=== PATIENT | male | born 1970 | race Caucasian/White ===

== ENCOUNTER 2018-07-29 08:30 | Observation (INO) | payer MEDICARE, OTHER ==
[2018-07-29] MEDS ORDERED: SODIUM CHLORIDE 0.9% 500 ML 500 ML IV STA (08:43)
--- NOTE | 2018-07-29 08:47 | ED ---
General Adult HPI - General Stated complaint: low pulse - History of Present Illness Initial comments: Dictation was produced using [employer] dictation software. please excuse any grammatical, word or spelling errors. Chief Complaint: 48-year-old male with past medical history of psychiatric disease presents with altered mental status, bradycardia and hypotension. History of Present Illness: Patient is a 48-year-old man brought in by EMS and he was noticed at the senior living to be altered. EMS noted that patient was hypotensive and bradycardic. They gave him a 500 mL bolus and 2 rounds of atropine. They report that his heart rate did not improve. Patient is unable to provide HPI at this time. EMS brings back his medications list. - Related Data Home Medications Medication Instructions Recorded Confirmed ARIPiprazole 15 mg PO BID 07/29/18 07/29/18 Ammonium Lactate Lotion 1 applic TOPICAL BID PRN 07/29/18 07/29/18 [Lac-Hydrin 12% Lotion] Benztropine Mesylate [Cogentin] 0.5 mg PO TID 07/29/18 07/29/18 Cholecalciferol (Vitamin D3) 2,000 unit PO DAILY 07/29/18 07/29/18 [Vitamin D3] Citalopram Hydrobromide [CeleXA] 40 mg PO DAILY 07/29/18 07/29/18 Enalapril [Vasotec] 5 mg PO DAILY 07/29/18 07/29/18 Ketoconazole 2% Shampoo [Nizoral] 1 applic TOPICAL DAILY PRN 07/29/18 07/29/18 Klaron (Sulfacetamid Lotion) 1 applic TOPICAL HS MDD TO FACE 07/29/18 07/29/18 LORazepam [Ativan] 1 mg PO TID 07/29/18 07/29/18 LORazepam [Ativan] 1 tab PO Q4HR PRN 07/29/18 07/29/18 Melatonin 3 mg PO HS 07/29/18 07/29/18 Nystatin [Nystop] 1 applic TOPICAL BID PRN 07/29/18 07/29/18 Perphenazine [Trilafon] 8 mg PO TID 07/29/18 07/29/18 Propranolol [Inderal] 10 mg PO BID 07/29/18 07/29/18 Temazepam [Restoril] 7.5 mg PO HS 07/29/18 07/29/18 Allergies Allergy/AdvReac Type Severity Reaction Status Date / Time No Known Allergies Allergy Unverified 07/29/18 09:12 Review of Systems ROS Statement: Those systems with pertinent positive or pertinent negative responses have been documented in the HPI. ROS Other: All systems not noted in ROS Statement are negative. General Exam - General Exam Comments Initial Comments: PHYSICAL EXAM: General Impression: Alert and oriented 103, no acute distress, confused HEENT: Normocephalic atraumatic, extra-ocular movements intact, pupils equal and reactive to light bilaterally, mucous membranes moist. Cardiovascular: Heart regular rate and rhythm, S1&S2 audible, no murmurs, rubs or gallops Chest: Lungs clear to auscultation bilaterally, no rhonchi, no wheeze, no rales Abdomen: Bowel sounds present, abdomen soft, non-tender, non-distended, no organomegaly Musculoskeletal: Pulses present and equal in all extremities, no peripheral edema Motor: Power 5/5 bilaterally, no focal deficits noted Neurological: CN II-XII grossly intact, no focal motor or sensory deficits noted Skin: Intact with no visualized rashes Course Vital Signs 07/29/18 08:54 Temperature 98.4 F Pulse Rate 46 L Respiratory 18 Rate Blood Pressure 122/81 O2 Sat by Pulse 97 Oximetry Medical Decision Making - Medical Decision Making ED course: 48-year-old male presents with altered mental status, hypotension and bradycardia. Patient is normotensive upon arrival.Laboratory evaluation obtained. CBC shows mild leukopenia 2.9. Thrombocytopenia 126. Hemoglobin is 12.2. Coag panel is unremarkable. Metabolic panel is negative. There is no Acidosis. Metabolic panel is negative. Tylenol and aspirin is negative. Cardiac enzymes are negative. Computed tomography scan of the head shows no acute processes. Chest x-ray is no acute processes. There are still pending labs. There is pending ammonia level. Regardless she has no signs of severe life-threatening toxicity. We'll plan to have patient admitted for encephalopathy. Patient is reevaluated with improvement of mental status. Patient tolerate by mouth at bedside. However he does still appear slightly lethargic. EKG Interpretation: A 12 lead EKG was obtained. It was interpreted by myself and attending physician. There is a P wave before every QRS complex. Rate is 48. Rhythm is sinus bradycardia, MO interval 190, QRS 86, QTC 425. QT is not prolonged. No ST segment depression or elevation. . Overall, this EKG is unremarkable - Lab Data Result diagrams: 07/29/18 08:45 07/29/18 08:45 Lab Results 07/29/18 07/29/18 07/29/18 Range/Units 08:45 08:45 08:45 WBC 2.9 L (3.8-10.6) k/uL RBC 4.14 L (4.30-5.90) m/uL Hgb 12.2 L (13.0-17.5) gm/dL Hct 36.4 L (39.0-53.0) % MCV 88.1 (80.0-100.0) fL MCH 29.5 (25.0-35.0) pg MCHC 33.5 (31.0-37.0) g/dL RDW 13.2 (11.5-15.5) % Plt Count 126 L (150-450) k/uL Neutrophils % 60 % Lymphocytes % 27 % Monocytes % 6 % Eosinophils % 2 % Basophils % 1 % Neutrophils # 1.7 (1.3-7.7) k/uL Lymphocytes # 0.8 L (1.0-4.8) k/uL Monocytes # 0.2 (0-1.0) k/uL Eosinophils # 0.1 (0-0.7) k/uL Basophils # 0.0 (0-0.2) k/uL PT (9.0-12.0) sec INR (<1.2) Sodium 142 (137-145) mmol/L Potassium (3.5-5.1) mmol/L Chloride 109 H (98-107) mmol/L Carbon Dioxide 27 (22-30) mmol/L Anion Gap 6 mmol/L BUN 15 (9-20) mg/dL Creatinine 0.93 (0.66-1.25) mg/dL Est GFR (CKD-EPI)AfAm >90 (>60 ml/min/1.73 sqM) Est GFR (CKD-EPI)NonAf >90 (>60 ml/min/1.73 sqM) Glucose 95 (74-99) mg/dL POC Glucose (mg/dL) (75-99) mg/dL POC Glu Gas Analyst ID Plasma Lactic Acid [place] (0.7-2.0) mmol/L Calcium 8.8 (8.4-10.2) mg/dL Total Bilirubin 0.4 (0.2-1.3) mg/dL Conjugated Bilirubin 0.0 (0.0-0.3) mg/dL Unconjugated Bilirubin 0.3 (0.0-1.1) mg/dL Delta Bilirubin 0.1 (0.0-0.2) mg/dL AST 24 (17-59) U/L ALT 32 (21-72) U/L Alkaline Phosphatase 47 (38-126) U/L Total Creatine Kinase 53 L (55-170) U/L CK-MB (CK-2) 0.4 (0.0-2.4) ng/mL CK-MB (CK-2) Rel Index 0.8 Troponin I <0.012 (0.000-0.034) ng/mL Total Protein 6.2 L (6.3-8.2) g/dL Albumin 3.4 L (3.5-5.0) g/dL Lipase 69 (23-300) U/L Salicylates <1.0 mg/dL Acetaminophen <10.0 ug/mL Serum Alcohol <10 mg/dL 07/29/18 07/29/18 07/29/18 Range/Units 08:45 08:47 09:08 WBC (3.8-10.6) k/uL RBC (4.30-5.90) m/uL Hgb (13.0-17.5) gm/dL Hct (39.0-53.0) % MCV (80.0-100.0) fL MCH (25.0-35.0) pg MCHC (31.0-37.0) g/dL RDW (11.5-15.5) % Plt Count (150-450) k/uL Neutrophils % % Lymphocytes % % Monocytes % % Eosinophils % % Basophils % % Neutrophils # (1.3-7.7) k/uL Lymphocytes # (1.0-4.8) k/uL Monocytes # (0-1.0) k/uL Eosinophils # (0-0.7) k/uL Basophils # (0-0.2) k/uL PT 11.3 (9.0-12.0) sec INR 1.2 H (<1.2) Sodium (137-145) mmol/L Potassium (3.5-5.1) mmol/L Chloride (98-107) mmol/L Carbon Dioxide (22-30) mmol/L Anion Gap mmol/L BUN (9-20) mg/dL Creatinine (0.66-1.25) mg/dL Est GFR (CKD-EPI)AfAm (>60 ml/min/1.73 sqM) Est GFR (CKD-EPI)NonAf (>60 ml/min/1.73 sqM) Glucose (74-99) mg/dL POC Glucose (mg/dL) 93 (75-99) mg/dL POC Glu Gas Analyst ID Jane Patel Plasma Lactic Acid [place] 1.1 (0.7-2.0) mmol/L Calcium (8.4-10.2) mg/dL Total Bilirubin (0.2-1.3) mg/dL Conjugated Bilirubin (0.0-0.3) mg/dL Unconjugated Bilirubin (0.0-1.1) mg/dL Delta Bilirubin (0.0-0.2) mg/dL AST (17-59) U/L ALT (21-72) U/L Alkaline Phosphatase (38-126) U/L Total Creatine Kinase (55-170) U/L CK-MB (CK-2) (0.0-2.4) ng/mL CK-MB (CK-2) Rel Index Troponin I (0.000-0.034) ng/mL Total Protein (6.3-8.2) g/dL Albumin (3.5-5.0) g/dL Lipase (23-300) U/L Salicylates mg/dL Acetaminophen ug/mL Serum Alcohol mg/dL Disposition Clinical Impression: Encephalopathy acute Disposition: ADMITTED IP TO THIS HOSP Condition: Fair Referrals: Robles Valenzuela DO [Primary Care Provider] - 1-2 days Decision Time: 12:32
[2018-07-29 09:08] LABS: Glucose,Whole Blood 93 mg/dL (75-99)
[2018-07-29 09:15] LABS: Basophils % (A) 1 %; Eosinophils # (A) 0.1 k/uL (0-0.7); Eosinophils % (A) 2 %; HCT 36.4 % (39.0-53.0); HGB 12.2 gm/dL (13.0-17.5); Lymphocytes # (A) 0.8 k/uL (1.0-4.8); Lymphocytes % (A) 27 %; MCH 29.5 pg (25.0-35.0); MCHC 33.5 g/dL (31.0-37.0); MCV 88.1 fL (80.0-100.0); Mean Platelet Volume 7.7; Monocytes # (A) 0.2 k/uL (0-1.0); Monocytes % (A) 6 %; Neutrophils # (A) 1.7 k/uL (1.3-7.7); Neutrophils % (A) 60 %; Platelet Count 126 k/uL (150-450); RBC 4.14 m/uL (4.30-5.90); RDW 13.2 % (11.5-15.5); WBC 2.9 k/uL (3.8-10.6)
[2018-07-29 09:28] LABS: INR 1.2 (<1.2); Prothrombin Time 11.3 sec (9.0-12.0)
--- NOTE | 2018-07-29 09:28 | XR ---
EXAMINATION TYPE: XR chest 1V portable DATE OF EXAM: 07/29/2018 COMPARISON: NONE HISTORY: Overdose. Initial evaluation. Altered mental status. TECHNIQUE: Single frontal view of the chest is obtained. FINDINGS: There is no focal air space opacity, pleural effusion, or pneumothorax seen. Reticular andrew ear bibasilar subsegmental atelectasis is noted. The cardiac silhouette size is enlarged. The osseo us structures are intact. Mild multilevel degenerative changes of the thoracic spine are seen. IMPRESSION: Minimal bibasilar subsegmental atelectasis and mild cardiac enlargement, otherwise no ac [place] cardiopulmonary process.
[2018-07-29 09:40] LABS: Acetaminophen <10.0 ug/mL; Alcohol <10 mg/dL; Salicylate <1.0 mg/dL
[2018-07-29 09:41] LABS: Creatine Kinase 53 U/L (55-170)
[2018-07-29 09:50] LABS: ALT 32 U/L (21-72); AST 24 U/L (17-59); Albumin 3.4 g/dL (3.5-5.0); Alkaline Phosphatase 47 U/L (38-126); Anion Gap 6 mmol/L; Bilirubin, Delta 0.1 mg/dL (0.0-0.2); Bilirubin,Unconjugated 0.3 mg/dL (0.0-1.1); Blood Urea Nitrogen 15 mg/dL (9-20); Calcium 8.8 mg/dL (8.4-10.2); Carbon Dioxide 27 mmol/L (22-30); Chloride 109 mmol/L (98-107); Glucose 95 mg/dL (74-99); Lipase 69 U/L (23-300); Sodium 142 mmol/L (137-145); Total Bilirubin 0.4 mg/dL (0.2-1.3); Total Protein 6.2 g/dL (6.3-8.2)
[2018-07-29 09:54] LABS: Creatine Kinase MB 0.4 ng/mL (0.0-2.4); Troponin I <0.012 ng/mL (0.000-0.034)
--- NOTE | 2018-07-29 10:22 | CT ---
EXAMINATION TYPE: CT brain wo con DATE OF EXAM: 07/29/2018 COMPARISON: NONE HISTORY: LOW PULSE/AMS CT DLP: 1097.4 mGycm. Automated Exposure Control for Dose Reduction was Utilized. TECHNIQUE: CT scan of the head is performed without contrast. FINDINGS: The patient is noted to be tilted in the gantry. There is no acute intracranial hemorrhage , mass effect, or midline shift identified. The ventricles and sulci are within normal limits in siz e. Cerebellar tonsils are low-lying without herniation. No suspicious extra-axial fluid collection is seen. The globes are intact and the visualized sinuses are clear. IMPRESSION: No acute intracranial hemorrhage, mass effect, or midline shift is seen.
[2018-07-29] MEDS ORDERED: NALOXONE 0.4 MG/ML 1 ML VIAL IV PRN (12:29)
[2018-07-29 12:46] LABS: Appearance,Urine Clear (Clear); Bilirubin,Urine Negative (Negative); Blood,Urine Negative (Negative); Color,Urine Colorless; Glucose,Urine (UA) Negative (Negative); Ketones,Urine Negative (Negative); Leukocyte Esterase,Urine Negative (Negative); Nitrite,Urine Negative (Negative); Protein,Urine Negative (Negative); Specific Gravity,Urine 1.005 (1.001-1.035); Urobilinogen,Urine <2.0 mg/dL (<2.0)
[2018-07-29 13:07] LABS: Amphetamine Screen,Urine Not Detected (NotDetected); Cocaine Screen,Urine Not Detected (NotDetected); Opiate Screen,Urine Not Detected (NotDetected); Phencyclidine Screen,Urine Not Detected (NotDetected); Urn Cannabinoid Scrn Not Detected (NotDetected)
[2018-07-29 13:08] LABS: Barbiturate Screen,Urine Not Detected (NotDetected); Benzodiazepines Screen,Urine Detected (NotDetected); Methadone Screen, Urine Not Detected (NotDetected); Oxycodone Screen, Urine Not Detected (NotDetected); Tricyclic Antidepressant,Urine Not Detected (NotDetected)
[2018-07-29 18:10] VITALS: BMI 28.0
[2018-07-29] MEDS ORDERED: AMMONIUM LACTATE 12% LOTION 225 GM BTL TOPICAL PRN (18:19)
[2018-07-29] MEDS ORDERED: KETOCONAZOLE 2% SHAMPOO 1 APPLIC/ML TOPICAL PRN (18:19)
[2018-07-29] MEDS ORDERED: NYSTATIN 100,000 UNIT/GM POWD 15 GM TOPICAL PRN (18:19)
--- NOTE | 2018-07-29 18:25 | P.HPIM ---
History of Present Illness 48-year-old male with significant past psychiatric history mental retardation and autism was brought in because of altered mental status I do not know his baseline unable to get much of the history from the patient I believe that is his baseline patient although is appropriately able to do some history including epigastric abdominal burning sensation and nausea. Patient is also found to be bradycardic and bit hypotensive patient is on propranolol which is being discontinued patient denied any cough or dysuria. Patient's abdomen is soft. Patient is being admitted for altered mental status although his baseline is not available. There may be a competent of toxic encephalopathy and patient is on a lot of medications that can cause it including temazepam lorazepam scheduled as well as when necessary basis benztropine and aripiprazole. 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 We will get opinion of psychiatrist as well. Patient will be monitored for a day and did not see any signs or symptoms of infection. Patient may or may not have toxic encephalopathy from his medications. Patient was given a dose of atropine along with IV fluids for his low blood pressure and bradycardia Review of Systems Rest of the severity of systems unable to often except those mentioned in HPI Past Medical History Past Medical History: Diabetes Mellitus, Hypertension Additional Past Medical History / Comment(s): mental retardation /AUTISM ABLE TO READ/WRITE BUT VERY LIMITED . 07/29/18 POA WANTS PT TO RECEIVE THE FLU VACCINE WHILE HERE. History of Any Multi-Drug Resistant Organisms: Unobtainable Past Surgical History: No Surgical Hx Reported Additional Past Surgical History / Comment(s): BROTHER STATED NO KNOWN SX Past Anesthesia/Blood Transfusion Reactions: No Reported Reaction Additional Past Anesthesia/Blood Transfusion Reaction / Comment(s): NEVER HAD ANY SX Smoking Status: Never smoker - Past Family History Father Family Medical History: Cancer Additional Family Medical History / Comment(s): COLON CANCER Mother Family Medical History: Cancer, Diabetes Mellitus, Hypertension Additional Family Medical History / Comment(s): OBESITY, FROM METASTATIC KINDEY CANCER Medications and Allergies Home Medications Medication Instructions Recorded Confirmed Type ARIPiprazole 15 mg PO BID 07/29/18 07/29/18 History Ammonium Lactate Lotion 1 applic TOPICAL BID PRN 07/29/18 07/29/18 History [Lac-Hydrin 12% Lotion] Benztropine Mesylate [Cogentin] 0.5 mg PO TID 07/29/18 07/29/18 History Cholecalciferol (Vitamin D3) 2,000 unit PO DAILY 07/29/18 07/29/18 History [Vitamin D3] Citalopram Hydrobromide [CeleXA] 40 mg PO DAILY 07/29/18 07/29/18 History Enalapril [Vasotec] 5 mg PO DAILY 07/29/18 07/29/18 History Ketoconazole 2% Shampoo [Nizoral] 1 applic TOPICAL DAILY PRN 07/29/18 07/29/18 History Klaron (Sulfacetamid Lotion) 1 applic TOPICAL HS MDD TO FACE 07/29/18 07/29/18 History LORazepam [Ativan] 1 mg PO TID 07/29/18 07/29/18 History LORazepam [Ativan] 1 tab PO Q4HR PRN 07/29/18 07/29/18 History Melatonin 3 mg PO HS 07/29/18 07/29/18 History Nystatin [Nystop] 1 applic TOPICAL BID PRN 07/29/18 07/29/18 History Perphenazine [Trilafon] 8 mg PO TID 07/29/18 07/29/18 History Propranolol [Inderal] 10 mg PO BID 07/29/18 07/29/18 History Temazepam [Restoril] 7.5 mg PO HS 07/29/18 07/29/18 History Allergies Allergy/AdvReac Type Severity Reaction Status Date / Time No Known Allergies Allergy Unverified 07/29/18 09:12 Physical Exam Vitals: Vital Signs Temp Pulse Resp BP Pulse Ox 07/29/18 13:15 97.3 F L 44 L 18 108/61 99 07/29/18 08:54 98.4 F 46 L 18 122/81 97 Intake and Output 07/29/18 07/29/18 07/29/18 06:59 14:59 22:59 Other: Voiding Method Incontinent Weight 86.22 kg PHYSICAL EXAMINATION: GENERAL: The patient is alert and unable does his orientation although I believe this is his baseline doesn't provide much of the history, not in any acute distress. Well developed, well nourished. HEENT: Pupils are round and equally reacting to light. EOMI. No scleral icterus. No conjunctival pallor. Normocephalic, atraumatic. No pharyngeal erythema. No thyromegaly. CARDIOVASCULAR: S1 and S2 present. No murmurs, rubs, or gallops. PULMONARY: Chest is clear to auscultation, no wheezing or crackles. ABDOMEN: Soft, nontender, nondistended, normoactive bowel sounds. No palpable organomegaly. MUSCULOSKELETAL: No joint swelling or deformity. EXTREMITIES: No cyanosis, clubbing, or pedal edema. NEUROLOGICAL: Gross neurological examination did not reveal any focal deficits. SKIN: No rashes. Results CBC & Chem 7: 07/29/18 08:45 07/29/18 08:45 Labs: Abnormal Lab Results - Last 24 Hours (Table) 07/29/18 07/29/18 07/29/18 Range/Units 08:45 08:45 08:45 WBC 2.9 L (3.8-10.6) k/uL RBC 4.14 L (4.30-5.90) m/uL Hgb 12.2 L (13.0-17.5) gm/dL Hct 36.4 L (39.0-53.0) % Plt Count 126 L (150-450) k/uL Lymphocytes # 0.8 L (1.0-4.8) k/uL INR (<1.2) Chloride 109 H (98-107) mmol/L Total Creatine Kinase 53 L (55-170) U/L Total Protein 6.2 L (6.3-8.2) g/dL Albumin 3.4 L (3.5-5.0) g/dL U Benzodiazepines Scrn (NotDetected) 07/29/18 07/29/18 Range/Units 08:45 11:50 WBC (3.8-10.6) k/uL RBC (4.30-5.90) m/uL Hgb (13.0-17.5) gm/dL Hct (39.0-53.0) % Plt Count (150-450) k/uL Lymphocytes # (1.0-4.8) k/uL INR 1.2 H (<1.2) Chloride (98-107) mmol/L Total Creatine Kinase (55-170) U/L Total Protein (6.3-8.2) g/dL Albumin (3.5-5.0) g/dL U Benzodiazepines Scrn Detected H (NotDetected) Thrombosis Risk Factor Assmnt - Choose All That Apply Any of the Below Risk Factors Present?: No Each Risk Factor Represents 2 Points: Age 61-74 years Thrombosis Risk Factor Assessment Total Risk Factor Score: 2 Thrombosis Risk Factor Assessment Level: Low Risk Assessment and Plan Plan: Possibility of a toxic encephalopathy from his medications will monitor him for a day Ativan temazepam melatonin will be held rest of the psychiatric medications will be continued and we will get the opinion of a psychiatrist as well because of his complex psychiatric history including mental retardation -Bradycardia and hypotension: Secondary to beta shandra which will be held -Ruled out sepsis -Autism and mental retardation: Supportive care continue his psychiatric medications and the construction safety manager. We will also try to reach the caregiver patient is from a long term -Hypertension hold off and a lateral as well as beta shandra because of hypotension
[2018-07-29] MEDS: ARIPiprazole 15 MG TAB PO SCH (20:23)
[2018-07-29] MEDS: PANTOPRAZOLE 40 MG/10 ML VIAL IVP SCH (20:23)
[2018-07-29] MEDS: BENZTROPINE MESYLATE 0.5 MG TAB PO SCH (20:24)
[2018-07-29] MEDS: PERPHENAZINE 4 MG TAB PO SCH (20:24)
[2018-07-29] MEDS ORDERED: [UNRECOGNIZED DRUG - OTHER] TOPICAL SCH (21:00)
[2018-07-30] MEDS: BENZTROPINE MESYLATE 0.5 MG TAB PO SCH ×2 (09:00→17:50)
[2018-07-30] MEDS: ARIPiprazole 15 MG TAB PO SCH (09:00)
[2018-07-30] MEDS ORDERED: CITALOPRAM HYDROBROMIDE 20 MG TAB PO SCH (09:00)
[2018-07-30] MEDS: PERPHENAZINE 4 MG TAB PO SCH ×2 (09:00→17:50)
--- NOTE | 2018-07-30 11:28 | P.DS ---
Providers Date of admission: 07/29/18 12:30 Attending physician: Rachel Vasquez Primary care physician: Robles Bianca [facility] Course: Patient was admitted for toxic encephalopathy and altered mental status secondary to benzodiazepines. Patient is feeling much better appears to be at his baseline. Patient will be discharged today we'll cut down Ativan and temazepam. Patient's abdominal pain improved patient will be treated for acute gastritis with Prilosec for 14 days. If patient can use to have the symptoms patient will need upper GI endoscopy down the line. PHYSICAL EXAMINATION: GENERAL: The patient is alert and unable does his orientation although I believe this is his baseline doesn't provide much of the history, not in any acute distress. Well developed, well nourished. She is much more responsive today compared to yesterday. Pleasant HEENT: Pupils are round and equally reacting to light. EOMI. No scleral icterus. No conjunctival pallor. Normocephalic, atraumatic. No pharyngeal erythema. No thyromegaly. CARDIOVASCULAR: S1 and S2 present. No murmurs, rubs, or gallops. PULMONARY: Chest is clear to auscultation, no wheezing or crackles. ABDOMEN: Soft, nontender, nondistended, normoactive bowel sounds. No palpable organomegaly. MUSCULOSKELETAL: No joint swelling or deformity. EXTREMITIES: No cyanosis, clubbing, or pedal edema. NEUROLOGICAL: Gross neurological examination did not reveal any focal deficits. SKIN: No rashes. Assessment and Plan Plan: Possibility of a toxic encephalopathy from his medications mostly from Ativan temazepam melatonin -Bradycardia and hypotension: Secondary to beta shandra which will be discontinued and lisinopril will be discontinued as well -Ruled out sepsis -Autism and mental retardation: Supportive care , patient will be [facility]. -Hypertension hold off and a lateral as well as beta shandra because of hypotension Patient Condition at Discharge: Fair Plan - Discharge Summary Discharge Rx Participant: No New Discharge Prescriptions: New Omeprazole [PriLOSEC] 40 mg PO -BRKFST #14 capsule. Discontinued Temazepam [Restoril] 7.5 mg PO HS Propranolol [Inderal] 10 mg PO BID LORazepam [Ativan] 1 mg PO TID No Action ARIPiprazole 15 mg PO BID Melatonin 3 mg PO HS Perphenazine [Trilafon] 8 mg PO TID Nystatin [Nystop] 1 applic TOPICAL BID PRN PRN Reason: TO SKIN FOLDS Enalapril [Vasotec] 5 mg PO DAILY Citalopram Hydrobromide [CeleXA] 40 mg PO DAILY Cholecalciferol (Vitamin D3) [Vitamin D3] 2,000 unit PO DAILY LORazepam [Ativan] 1 tab PO Q4HR PRN PRN Reason: AGITATION AND ANXIOUSNESS Ketoconazole 2% Shampoo [Nizoral] 1 applic TOPICAL DAILY PRN PRN Reason: FOR DANDRUFF Benztropine Mesylate [Cogentin] 0.5 mg PO TID Ammonium Lactate Lotion [Lac-Hydrin 12% Lotion] 1 applic TOPICAL BID PRN PRN Reason: Dry Skin Klaron (Sulfacetamid Lotion) 1 applic TOPICAL HS MDD TO FACE Discharge Medication List ARIPiprazole 15 mg PO BID 07/29/18 [History] Ammonium Lactate Lotion [Lac-Hydrin 12% Lotion] 1 applic TOPICAL BID PRN [History] Benztropine Mesylate [Cogentin] 0.5 mg PO TID 07/29/18 [History] Cholecalciferol (Vitamin D3) [Vitamin D3] 2,000 unit PO DAILY 07/29/18 [History] Citalopram Hydrobromide [CeleXA] 40 mg PO DAILY 07/29/18 [History] Enalapril [Vasotec] 5 mg PO DAILY 07/29/18 [History] Ketoconazole 2% Shampoo [Nizoral] 1 applic TOPICAL DAILY PRN 07/29/18 [History] Klaron (Sulfacetamid Lotion) 1 applic TOPICAL HS MDD TO FACE 07/29/18 [History] LORazepam [Ativan] 1 tab PO Q4HR PRN 07/29/18 [History] Melatonin 3 mg PO HS 07/29/18 [History] Nystatin [Nystop] 1 applic TOPICAL BID PRN 07/29/18 [History] Perphenazine [Trilafon] 8 mg PO TID 07/29/18 [History] Omeprazole [PriLOSEC] 40 mg PO ELISE-BRKFST #14 capsule. 07/30/18 [Rx] Follow up Appointment(s)/Referral(s): Robles Valenzuela DO [Primary Care Provider] - 3 Days Discharge Disposition: OTHER INSTITUTION NOT DEFINED
[2018-07-30] MEDS: PANTOPRAZOLE 40 MG/10 ML VIAL IVP SCH (12:13)
[2018-07-30 14:03] VITALS: BP 107/70; PULSE 60; RESP 18; TEMP 98.8
[2018-07-31] MEDS ORDERED: PANTOPRAZOLE 40 MG TABLET PO SCH (07:30)
== END 2018-07-30 18:30 | disposition other institution (70) ==
LOC: EC 08:30 → 3NMEDONC 12:30 → EEVIPCON 12:30 → 4SSUR 13:57
PROVIDERS: ADMIT Internal Medicine; ATTEND Internal Medicine
DX: G92 Toxic encephalopathy (principal); T42.4X5A Adverse effect of benzodiazepines, initial encounter; K29.00 Acute gastritis without bleeding; I10 Essential (primary) hypertension; E11.9 Type 2 diabetes mellitus without complications; D69.6 Thrombocytopenia, unspecified; F84.0 Autistic disorder; F79 Unspecified intellectual disabilities; D72.819 Decreased white blood cell count, unspecified; R00.1 Bradycardia, unspecified; I95.9 Hypotension, unspecified; T44.7X5A Adverse effect of beta-adrenoreceptor antagonists, initial encounter; Z80.0 Family history of malignant neoplasm of digestive organs; Z79.899 Other long term (current) drug therapy; Z83.3 Family history of diabetes mellitus; Z82.49 Family history of ischemic heart disease and other diseases of the circulatory system; Z80.51 Family history of malignant neoplasm of kidney
CPT/HCPCS: 96376; 96374; 96361; 99285; 36415; 93005; 80053; 82140; 82248; 82550; 82553; 83605; 83690; 84484; 85025; 85610; 81003; 80306; 83520 ×2; 71045; 70450; G0378 ×3; G0480; Q0175 ×2; C9113 ×2; 80320

== ENCOUNTER 2020-02-20 13:04 | Inpatient (IN) | payer MEDICARE, OTHER ==
--- NOTE | 2020-02-20 13:53 | ED ---
General Adult HPI - General Source: patient Mode of arrival: ambulatory Limitations: no limitations <Harris Coppola - Last Filed: 02/20/20 15:25> <Allan Delarosa - Last Filed: 02/20/20 15:46> - General Chief complaint: Extremity Injury, Upper Stated complaint: hand pain Time Seen by Provider: 02/20/20 13:13 - History of Present Illness Initial comments: Patient is a 49-year-old male with history of autism presenting to the emergency department with chief complaint of hand pain. Caregiver also present in the ro om. Patient is minimally verbal. Caregiver states the patient had developed some coordination issues in his right hand where he had difficulty eating pincher foods. Caregiver states the symptoms started yesterday at 6 PM. Caregiver states the patient had otherwise no trauma to the hand or right upper extremity. States he noticed today the patient had also developed some leaning towards the right side. Patient does have history of hypertension. (Harris Coppola) - Related Data Home Medications Medication Instructions Recorded Confirmed ARIPiprazole 15 mg PO BID 07/29/18 02/20/20 Benztropine Mesylate [Cogentin] 0.5 mg PO TID 07/29/18 02/20/20 Cholecalciferol (Vitamin D3) 2,000 unit PO DAILY@0700 07/29/18 02/20/20 [Vitamin D3] Citalopram Hydrobromide [CeleXA] 40 mg PO DAILY 07/29/18 02/20/20 Enalapril [Vasotec] 5 mg PO DAILY@0700 07/29/18 02/20/20 LORazepam [Ativan] 1 tab PO TID 07/29/18 02/20/20 Nystatin [Nystop] 1 applic TOPICAL BID PRN 07/29/18 02/20/20 Perphenazine [Trilafon] 8 mg PO TID 07/29/18 02/20/20 LORazepam [Ativan] 2 mg PO Q4H PRN 02/20/20 02/20/20 Melatonin 5 mg PO HS 02/20/20 02/20/20 Triamcinolone 0.025% Cream 1 applic TOPICAL HS 02/20/20 02/20/20 [Kenalog 0.025% Cream] cloZAPine [Clozaril] 100 mg PO BID 02/20/20 02/20/20 Allergies Allergy/AdvReac Type Severity Reaction Status Date / Time No Known Allergies Allergy Verified 02/20/20 14:08 Review of Systems ROS Other: All systems not noted in ROS Statement are negative. <Harris Coppola - Last Filed: 02/20/20 15:25> ROS Other: All systems not noted in ROS Statement are negative. <Allan Delarosa - Last Filed: 02/20/20 15:46> ROS Statement: Those systems with pertinent positive or pertinent negative responses have been documented in the HPI. Past Medical History Past Medical History: Diabetes Mellitus, Hypertension Additional Past Medical History / Comment(s): mental retardation /AUTISM ABLE TO READ/WRITE BUT VERY LIMITED . 07/29/18 POA WANTS PT TO RECEIVE THE FLU VACCINE WHILE HERE. History of Any Multi-Drug Resistant Organisms: Unobtainable Past Surgical History: No Surgical Hx Reported Additional Past Surgical History / Comment(s): BROTHER STATED NO KNOWN SX Past Anesthesia/Blood Transfusion Reactions: No Reported Reaction Additional Past Anesthesia/Blood Transfusion Reaction / Comment(s): NEVER HAD ANY SX Past Psychological History: No Psychological Hx Reported Smoking Status: Never smoker Past Alcohol Use History: None Reported Past Drug Use History: None Reported - Past Family History Father Family Medical History: Cancer Additional Family Medical History / Comment(s): COLON CANCER Mother Family Medical History: Cancer, Diabetes Mellitus, Hypertension Additional Family Medical History / Comment(s): OBESITY, FROM METASTATIC KINDEY CANCER <Harris Coppola - Last Filed: 02/20/20 15:25> General Exam Limitations: no limitations General appearance: alert, in no apparent distress Head exam: Present: atraumatic, normocephalic, normal inspection Eye exam: Present: normal appearance, PERRL, EOMI Pupils: Present: normal accommodation ENT exam: Present: normal exam, normal oropharynx (Minimal right-sided facial d mainor), mucous membranes moist Neck exam: Present: normal inspection, full ROM. Absent: tenderness Respiratory exam: Present: normal lung sounds bilaterally. Absent: respiratory distress, wheezes, rales Cardiovascular Exam: Present: regular rate, normal rhythm, normal heart sounds Extremities exam: Present: normal inspection, full ROM, other (Strength 2/5 in the right hand. ) Back exam: Present: normal inspection, full ROM Neurological exam: Present: alert, normal gait (Patient walked in the ED) Psychiatric exam: Present: normal affect, normal mood Skin exam: Present: warm, dry, intact, normal color <Harris Coppola - Last Filed: 02/20/20 15:25> Neurological exam: Present: other (Minimal right facial droop) Expanded Neurological exam: Present: protecting the airway Cranial nerves: EOM's Intact: Normal Sensory exam: Upper Extremity Light Touch: Normal, Lower Extremity Light Touch: Normal Motor strength exam: RUE: 4, LUE: 5, RLE: 5, LLE: 5 <Allan Delarosa - Last Filed: 02/20/20 15:46> Course <Allan Delarosa - Last Filed: 02/20/20 15:46> Vital Signs 02/20/20 02/20/20 02/20/20 13:07 14:00 14:15 Temperature 97.8 F Pulse Rate 79 63 65 Respiratory 18 16 16 Rate Blood Pressure 128/78 134/80 133/80 O2 Sat by Pulse 99 100 100 Oximetry 02/20/20 15:24 Temperature Pulse Rate 64 Respiratory 16 Rate Blood Pressure 128/80 O2 Sat by Pulse 98 Oximetry - Reevaluation(s) Reevaluation #1: 02/20/20 14:01 Patient reevaluated and reexamined by myself, Dr. Delarosa. On exam patient does have minimal right arm drift and does appear to have some coordination problems with right arm. There is minimal facial droop of right lower leg and patient does lean a little bit to the right while sitting in bed even. Exam is limited secondary to patient compliance. Patient has reported severe autism. 02/20/20 14:02 Patient was is caused with gilbert prieto covering for Dr. valdes. They will review images and call back. Patient is not a TPA candidate secondary to last known well was 6 PM yesterday, approximately 20 hours ago. 02/20/20 14:39 Case was again discussed with gilbert Prieto. They recommend aspirin and Lipitor and neurology consult. MRI could be done as an inpatient. Patient reevaluated and unchanged. Patient and drapery worker updated. 02/20/20 15:46 Case was also earlier discussed with Dr. Nye, who will admit. She is covering for hospital call (Allan Delarosa) EKG Findings - EKG Comments: EKG Findings:: Sinus rhythm, no ST-T wave changes. Ventricular rate 64, IN 184, QRS 92, QTC 451. <Harris Coppola - Last Filed: 02/20/20 15:25> Medical Decision Making - Lab Data Result diagrams: 02/20/20 14:11 02/20/20 14:11 <Harris Coppola - Last Filed: 02/20/20 15:25> - Lab Data Result diagrams: 02/20/20 14:11 02/20/20 14:11 <Allan Delarosa - Last Filed: 02/20/20 15:46> - Lab Data Lab Results 02/20/20 02/20/20 02/20/20 Range/Units 14:02 14:11 14:11 WBC 4.3 (3.8-10.6) k/uL RBC 3.94 L (4.30-5.90) m/uL Hgb 11.8 L (13.0-17.5) gm/dL Hct 34.1 L (39.0-53.0) % MCV 86.6 (80.0-100.0) fL MCH 30.0 (25.0-35.0) pg MCHC 34.6 (31.0-37.0) g/dL RDW 12.8 (11.5-15.5) % Plt Count 126 L (150-450) k/uL Neutrophils % 72 % Lymphocytes % 19 % Monocytes % 5 % Eosinophils % 2 % Basophils % 1 % Neutrophils # 3.1 (1.3-7.7) k/uL Lymphocytes # 0.8 L (1.0-4.8) k/uL Monocytes # 0.2 (0-1.0) k/uL Eosinophils # 0.1 (0-0.7) k/uL Basophils # 0.0 (0-0.2) k/uL PT 11.3 (9.0-12.0) sec INR 1.1 (<1.2) APTT 26.9 (22.0-30.0) sec Sodium (137-145) mmol/L Potassium (3.5-5.1) mmol/L Chloride (98-107) mmol/L Carbon Dioxide (22-30) mmol/L Anion Gap mmol/L BUN (9-20) mg/dL Creatinine (0.66-1.25) mg/dL Est GFR (CKD-EPI)AfAm (>60 ml/min/1.73 sqM) Est GFR (CKD-EPI)NonAf (>60 ml/min/1.73 sqM) Glucose (74-99) mg/dL POC Glucose (mg/dL) 142 H (75-99) mg/dL POC Glu Hematology Technologist ID Dot Bourgeois Calcium (8.4-10.2) mg/dL Total Bilirubin (0.2-1.3) mg/dL AST (17-59) U/L ALT (4-49) U/L Alkaline Phosphatase (38-126) U/L CK-MB (CK-2) (0.0-2.4) ng/mL Troponin I (0.000-0.034) ng/mL Total Protein (6.3-8.2) g/dL Albumin (3.5-5.0) g/dL 02/20/20 02/20/20 Range/Units 14:11 14:11 WBC (3.8-10.6) k/uL RBC (4.30-5.90) m/uL Hgb (13.0-17.5) gm/dL Hct (39.0-53.0) % MCV (80.0-100.0) fL MCH (25.0-35.0) pg MCHC (31.0-37.0) g/dL RDW (11.5-15.5) % Plt Count (150-450) k/uL Neutrophils % % Lymphocytes % % Monocytes % % Eosinophils % % Basophils % % Neutrophils # (1.3-7.7) k/uL Lymphocytes # (1.0-4.8) k/uL Monocytes # (0-1.0) k/uL Eosinophils # (0-0.7) k/uL Basophils # (0-0.2) k/uL PT (9.0-12.0) sec INR (<1.2) APTT (22.0-30.0) sec Sodium 140 (137-145) mmol/L Potassium 3.8 (3.5-5.1) mmol/L Chloride 104 (98-107) mmol/L Carbon Dioxide 30 (22-30) mmol/L Anion Gap 6 mmol/L BUN 18 (9-20) mg/dL Creatinine 0.89 (0.66-1.25) mg/dL Est GFR (CKD-EPI)AfAm >90 (>60 ml/min/1.73 sqM) Est GFR (CKD-EPI)NonAf >90 (>60 ml/min/1.73 sqM) Glucose 119 H (74-99) mg/dL POC Glucose (mg/dL) (75-99) mg/dL POC Glu Hematology Technologist ID Calcium 8.8 (8.4-10.2) mg/dL Total Bilirubin 0.3 (0.2-1.3) mg/dL AST 20 (17-59) U/L ALT 11 (4-49) U/L Alkaline Phosphatase 66 (38-126) U/L CK-MB (CK-2) 0.4 (0.0-2.4) ng/mL Troponin I <0.012 (0.000-0.034) ng/mL Total Protein 6.0 L (6.3-8.2) g/dL Albumin 3.3 L (3.5-5.0) g/dL Disposition <Harris Coppola - Last Filed: 02/20/20 15:25> Is patient prescribed a controlled substance at d/c from ED?: No Decision Time: 14:40 <Allan Delarosa - Last Filed: 02/20/20 15:46> Clinical Impression: CVA (cerebral vascular accident) Disposition: ADMITTED IP TO THIS HOSP Condition: Serious
[2020-02-20 14:04] LABS: Glucose,Whole Blood 142 mg/dL (75-99)
--- NOTE | 2020-02-20 14:15 | CT ---
EXAMINATION TYPE: CT brain wo con for TPA DATE OF EXAM: 02/20/2020 COMPARISON: 07/29/2018 INDICATION: Neuro deficits DLP: 1323.8 mGycm, Automated exposure control for dose reduction was used. CONTRAST: None CT of the brain is performed utilizing 3 mm thick sections through the posterior fossa and 3 mm thick sections through the remaining calvarium. Study is performed within 24 hours of arrival to the hosp [facility]. No abnormal hyperdensity is present to suggest an acute intracranial hemorrhage. No mass lesion is evident. No acute infarcts are evident. Ventricles and sulci are appropriate for the patient age. Paranasal sinuses and mastoid air cells within the [id number] are clear. IMPRESSIONS: 1. No acute intracranial process.
[2020-02-20 14:22] LABS: Basophils % (A) 1 %; Eosinophils # (A) 0.1 k/uL (0-0.7); Eosinophils % (A) 2 %; HCT 34.1 % (39.0-53.0); HGB 11.8 gm/dL (13.0-17.5); Lymphocytes # (A) 0.8 k/uL (1.0-4.8); Lymphocytes % (A) 19 %; MCHC 34.6 g/dL (31.0-37.0); MCV 86.6 fL (80.0-100.0); Mean Platelet Volume 8.2; Monocytes # (A) 0.2 k/uL (0-1.0); Monocytes % (A) 5 %; Neutrophils # (A) 3.1 k/uL (1.3-7.7); Neutrophils % (A) 72 %; Platelet Count 126 k/uL (150-450); RBC 3.94 m/uL (4.30-5.90); RDW 12.8 % (11.5-15.5); WBC 4.3 k/uL (3.8-10.6)
[2020-02-20 14:33] LABS: ALT 11 U/L (4-49); AST 20 U/L (17-59); African American GFR (CKD) >90 (>60 ml/min/1.73 sqM); Albumin 3.3 g/dL (3.5-5.0); Alkaline Phosphatase 66 U/L (38-126); Anion Gap 6 mmol/L; Blood Urea Nitrogen 18 mg/dL (9-20); Calcium 8.8 mg/dL (8.4-10.2); Carbon Dioxide 30 mmol/L (22-30); Chloride 104 mmol/L (98-107); Glucose 119 mg/dL (74-99); Non-African American GFR(CKD) >90 (>60 ml/min/1.73 sqM); Potassium 3.8 mmol/L (3.5-5.1); Sodium 140 mmol/L (137-145); Total Bilirubin 0.3 mg/dL (0.2-1.3)
[2020-02-20 14:38] LABS: INR 1.1 (<1.2); Partial Thromboplastin Time 26.9 sec (22.0-30.0); Prothrombin Time 11.3 sec (9.0-12.0)
[2020-02-20] MEDS ORDERED: ASPIRIN 325 MG TAB PO STA (14:40)
--- NOTE | 2020-02-20 14:45 | CT ---
EXAMINATION TYPE: CODE STROKE: CTA head neck DATE OF EXAM: 02/20/2020 HISTORY: COMPARISON: None CT DLP: Unknown mGycm. Automated Exposure Control for Dose Reduction was Utilized. TECHNIQUE: CTA scan of the neck is performed with IV Contrast, axial images are obtained, coronal an d sagittal reformatted images are reviewed. Three-D reconstructed images are created on an [employer] workstation and reviewed. Source images are reviewed. FINDINGS: Carotid/Vascular Structures: The common carotid artery arises from the innominate. Left vertebral art karl may have a severe stenosis at its origin. Though contrast is within the left vertebral artery. Th e right vertebral artery appears normal. Common carotid artery bifurcations appear normal and interna l and external carotid arteries. Internal carotid arteries are patent to the skull base. Cervical of Alexander: Vertebral basilar system appears normal. Posterior cerebral vasculature is unrema rkable. Internal carotid arteries bifurcate normally into A1 and M1 segments. A2 segments are normal. The anterior communicating artery is not clearly identified. Posterior communicating arteries are no t identified. IMPRESSION: 1. No flow-limiting stenosis bilateral carotid bifurcations. 2. Normal [place] of [place]. 3. Stenosis at the origin of the left vertebral artery is not excluded
[2020-02-20 14:55] LABS: Creatine Kinase MB 0.4 ng/mL (0.0-2.4); Troponin I <0.012 ng/mL (0.000-0.034)
--- NOTE | 2020-02-20 15:07 | XR ---
EXAMINATION TYPE: XR chest 2V DATE OF EXAM: 02/20/2020 COMPARISON: 07/29/2020 INDICATION: Altered mental status TECHNIQUE: Frontal and lateral views of the chest are obtained. FINDINGS: The heart size is normal. The pulmonary vasculature is normal. The lungs are clear. Spondylosis within the thoracic spine. IMPRESSION: 1. No acute pulmonary process.
[2020-02-20] MEDS: SODIUM CHLORIDE 0.9% 1,000 ML IV SCH (15:22)
[2020-02-20] MEDS ORDERED: NYSTATIN 100,000 UNIT/GM POWD 15 GM TOPICAL PRN (15:36)
--- NOTE | 2020-02-20 15:51 | P.HPIM ---
History of Present Illness H&P Date: 02/20/20 Chief Complaint: Ataxia 49-year-old male presents to [facility] with inability to use his pincher grasp in his right hand. Patient initially presented with ataxia last night around 6 PM. Caregiver is at bedside and warrants as a witness to patient's symptoms. Caregiver became more concerned once patient started leaning to the right this morning. Patient is able to respond to simple questions, but is unable to elaborate on his current symptoms secondary to autism. Patient states that he feels weak in the right hand and he hurts all over. Caregiver doesn't believe he is truly hurting all over. Patient denies chest pain shortness of breath. Patient further denies headache, dizziness, nausea, vomiting, fevers, or chills. Review of Systems A 12 point review systems was assessed patient was only positive for those p ertinent in HPI Past Medical History Past Medical History: Diabetes Mellitus, Hypertension Additional Past Medical History / Comment(s): mental retardation /AUTISM ABLE TO READ/WRITE BUT VERY LIMITED . 07/29/18 POA WANTS PT TO RECEIVE THE FLU VACCINE WHILE HERE. History of Any Multi-Drug Resistant Organisms: Unobtainable Past Surgical History: No Surgical Hx Reported Additional Past Surgical History / Comment(s): BROTHER STATED NO KNOWN SX Past Anesthesia/Blood Transfusion Reactions: No Reported Reaction Additional Past Anesthesia/Blood Transfusion Reaction / Comment(s): NEVER HAD ANY SX Past Psychological History: No Psychological Hx Reported Smoking Status: Never smoker Past Alcohol Use History: None Reported Past Drug Use History: None Reported - Past Family History Father Family Medical History: Cancer Additional Family Medical History / Comment(s): COLON CANCER Mother Family Medical History: Cancer, Diabetes Mellitus, Hypertension Additional Family Medical History / Comment(s): OBESITY, FROM METASTATIC KINDEY CANCER Medications and Allergies Home Medications Medication Instructions Recorded Confirmed Type ARIPiprazole 15 mg PO BID 07/29/18 02/20/20 History Benztropine Mesylate [Cogentin] 0.5 mg PO TID 07/29/18 02/20/20 History Cholecalciferol (Vitamin D3) 2,000 unit PO DAILY@0700 07/29/18 02/20/20 History [Vitamin D3] Citalopram Hydrobromide [CeleXA] 40 mg PO DAILY 07/29/18 02/20/20 History Enalapril [Vasotec] 5 mg PO DAILY@0700 07/29/18 02/20/20 History LORazepam [Ativan] 1 tab PO TID 07/29/18 02/20/20 History Nystatin [Nystop] 1 applic TOPICAL BID PRN 07/29/18 02/20/20 History Perphenazine [Trilafon] 8 mg PO TID 07/29/18 02/20/20 History LORazepam [Ativan] 2 mg PO Q4H PRN 02/20/20 02/20/20 History Melatonin 5 mg PO HS 02/20/20 02/20/20 History Triamcinolone 0.025% Cream 1 applic TOPICAL HS 02/20/20 02/20/20 History [Kenalog 0.025% Cream] cloZAPine [Clozaril] 100 mg PO BID 02/20/20 02/20/20 History Allergies Allergy/AdvReac Type Severity Reaction Status Date / Time No Known Allergies Allergy Verified 02/20/20 14:08 Physical Exam Osteopathic Statement: *. No significant issues noted on an osteopathic structural exam other than those noted in the History and Physical/Consult. Vitals: Vital Signs Temp Pulse Resp BP Pulse Ox 02/20/20 14:15 65 16 133/80 100 02/20/20 14:00 63 16 134/80 100 02/20/20 13:07 97.8 F 79 18 128/78 99 Intake and Output 02/20/20 02/20/20 02/20/20 06:59 14:59 22:59 Other: Weight 78.925 kg General: [non toxic], [no distress], [appears at stated age] Derm: [warm], [dry] Head: [atraumatic], [normocephalic], [symmetric] Eyes: [EOMI], [no lid lag], [anicteric sclera] Mouth: [no lip lesion], [mucus membranes moist] Cardiovascular: [S1S2 reg], [no murmur], [positive posterior tibial pulse bilateral], Lungs: [CTA bilateral], [no rhonchi, no rales] , [no accessory muscle use] Abdominal: [soft], [ nontender to palpation], [no guarding], [no appreciable organomegaly] Ext: [no gross muscle atrophy], [no edema], [no contractures] Neuro: [ CN II-XI grossly intact], [right sided weakness in right hand 4/5] Psych: [Alert], [oriented], [appropriate affect] Results CBC & Chem 7: 02/20/20 14:11 02/20/20 14:11 Labs: Abnormal Lab Results - Last 24 Hours (Table) 02/20/20 02/20/20 02/20/20 Range/Units 14:02 14:11 14:11 RBC 3.94 L (4.30-5.90) m/uL Hgb 11.8 L (13.0-17.5) gm/dL Hct 34.1 L (39.0-53.0) % Plt Count 126 L (150-450) k/uL Lymphocytes # 0.8 L (1.0-4.8) k/uL Glucose 119 H (74-99) mg/dL POC Glucose (mg/dL) 142 H (75-99) mg/dL Total Protein 6.0 L (6.3-8.2) g/dL Albumin 3.3 L (3.5-5.0) g/dL Thrombosis Risk Factor Assmnt - DVT/VTE Prophylaxis DVT/VTE Prophylaxis: Pharmacologic Prophylaxis ordered Assessment and Plan Assessment: 1. Right hand Ataxia rule out CVA Aspirin and statin CT brain without contrast negative for acute intracranial pathology Chest x-ray negative CT angiogram stenosis at the origin of the left vertebral artery is not excluded echo pending Neurology consulted recs appreciated PT/OT Neuro checks 2. Normocytic anemia Check iron studies 3. History of hypertension Restart home meds 4. Autism 5. GI DVT prophylaxis 6. AM labs Patient is full code PCP is Dr. Valenzuela Greater than 45 minutes spent coordinating care and counseling patient with adobe layer helper Time with Patient: Greater than 30
[2020-02-20] MEDS: BENZTROPINE MESYLATE 0.5 MG TAB PO SCH ×2 (16:45→20:58)
[2020-02-20] MEDS: PERPHENAZINE 4 MG TAB PO SCH ×2 (16:45→20:58)
[2020-02-20] MEDS: HEPARIN SODIUM,PORCINE 5,000 UNIT/ML 1 ML VIAL SQ SCH ×2 (16:46→22:48)
[2020-02-20] MEDS: LORazepam 1 MG TAB PO SCH ×2 (16:47→20:58)
[2020-02-20 20:21] LABS: Glucose,Whole Blood 130 mg/dL (75-99)
[2020-02-20] MEDS: PANTOPRAZOLE 40 MG TABLET PO SCH (20:53)
[2020-02-20] MEDS: MELATONIN 5 MG TABLET PO SCH (20:58)
[2020-02-20] MEDS: cloZAPine 100 MG TAB PO SCH (20:58)
[2020-02-20] MEDS: ARIPiprazole 15 MG TAB PO SCH (20:58)
[2020-02-20] MEDS: ATORVASTATIN 80 MG TAB PO SCH (20:58)
[2020-02-21] MEDS: SODIUM CHLORIDE 0.9% 1,000 ML IV SCH ×2 (02:22→11:52)
[2020-02-21 05:51] LABS: Glucose,Whole Blood 87 mg/dL (75-99)
[2020-02-21] MEDS: PANTOPRAZOLE 40 MG TABLET PO SCH ×2 (06:03→17:07)
[2020-02-21] MEDS: LISINOPRIL 10 MG TAB PO SCH (06:03)
[2020-02-21] MEDS: CHOLECALCIFEROL 1,000 UNIT TAB PO SCH (06:03)
[2020-02-21 06:52] LABS: Basophils % (A) 1 %; Eosinophils # (A) 0.1 k/uL (0-0.7); Eosinophils % (A) 2 %; HCT 38.6 % (39.0-53.0); HGB 13.3 gm/dL (13.0-17.5); Lymphocytes # (A) 1.1 k/uL (1.0-4.8); Lymphocytes % (A) 17 %; MCH 30.1 pg (25.0-35.0); MCHC 34.3 g/dL (31.0-37.0); MCV 87.7 fL (80.0-100.0); Mean Platelet Volume 8.5; Monocytes # (A) 0.3 k/uL (0-1.0); Monocytes % (A) 5 %; Neutrophils # (A) 4.7 k/uL (1.3-7.7); Neutrophils % (A) 75 %; Platelet Count 130 k/uL (150-450); RDW 12.9 % (11.5-15.5); WBC 6.3 k/uL (3.8-10.6)
[2020-02-21 08:09] LABS: ALT 14 U/L (4-49); AST 24 U/L (17-59); African American GFR (CKD) >90 (>60 ml/min/1.73 sqM); Albumin 3.8 g/dL (3.5-5.0); Alkaline Phosphatase 85 U/L (38-126); Anion Gap 6 mmol/L; Blood Urea Nitrogen 13 mg/dL (9-20); Calcium 9.2 mg/dL (8.4-10.2); Carbon Dioxide 32 mmol/L (22-30); Chloride 106 mmol/L (98-107); Cholesterol 132 mg/dL (<200); Glucose 83 mg/dL (74-99); HDL Cholesterol 55 mg/dL (40-60); LDL Cholesterol,Calculated 63 mg/dL (0-99); Non-African American GFR(CKD) >90 (>60 ml/min/1.73 sqM); Potassium 4.1 mmol/L (3.5-5.1); Sodium 144 mmol/L (137-145); Total Bilirubin 0.5 mg/dL (0.2-1.3); Total Protein 6.9 g/dL (6.3-8.2); Triglycerides 68 mg/dL (<150)
[2020-02-21] MEDS: CITALOPRAM HYDROBROMIDE 20 MG TAB PO SCH (09:09)
[2020-02-21] MEDS: LORazepam 1 MG TAB PO SCH ×3 (09:10→21:22)
[2020-02-21] MEDS: ASPIRIN 325 MG TAB PO SCH (09:10)
[2020-02-21] MEDS: HEPARIN SODIUM,PORCINE 5,000 UNIT/ML 1 ML VIAL SQ SCH ×3 (09:11→22:49)
[2020-02-21] MEDS: cloZAPine 100 MG TAB PO SCH ×2 (09:12→21:22)
[2020-02-21] MEDS: BENZTROPINE MESYLATE 0.5 MG TAB PO SCH ×3 (09:12→21:22)
[2020-02-21] MEDS: ARIPiprazole 15 MG TAB PO SCH ×2 (09:13→21:22)
[2020-02-21] MEDS: PERPHENAZINE 4 MG TAB PO SCH ×3 (09:14→21:22)
--- NOTE | 2020-02-21 10:58 | ECHOF ---
Referral Reason:Thrombus MEASUREMENTS -------- HEIGHT: 167.6 cm WEIGHT: 77.6 kg BP: 155/83 RVIDd: 2.4 cm (< 3.3) IVSd: 1.6 cm (0.6 - 1.1) LVIDd: 3.6 cm (3.9 - 5.3) LVPWd: 1.5 cm (0.6 - 1.1) IVSs: 1.8 cm LVIDs: 2.2 cm LVPWs: 1.6 cm Ao Diam: 3.3 cm (2.0 - 3.7) AV Cusp: 2.2 cm (1.5 - 2.6) LA Diam: 2.5 cm (2.7 - 3.8) MV EXCURSION: 18.547 mm (> 18.000) MV EF SLOPE: 71 mm/s (70 - 150) EPSS: 0.2 cm MV E Pablito: 0.72 m/s MV DecT: 183 ms MV A [place]: 0.52 m/s MV E/A Ratio: 1.40 RAP: 5.00 mmHg RVSP: 12.60 mmHg FINDINGS -------- Sinus rhythm. This was a technically good study. The left ventricular size is normal. There is moderate concentric left ventricular hypertrophy. O verall left ventricular systolic function is normal with, an EF between 55 - 60 %. The right ventricle is normal in size. The left atrial size is normal. The right atrial size is normal. The aortic valve is trileaflet and appears structurally normal. The mitral valve is normal. There is trace mitral regurgitation. The tricuspid valve appears structurally normal. Mild tricuspid regurgitation present. Right vent ricular systolic pressure is normal at < 35 mmHg. There is no pulmonic regurgitation present. The aortic root size is normal. Normal inferior vena cava with normal inspiratory collapse consistent with estimated right atrial pre ssure of 5 mmHg. There is no pericardial effusion. CONCLUSIONS -------- 1. Sinus rhythm. 2. This was a technically good study. 3. The left ventricular size is normal. 4. There is moderate concentric left ventricular hypertrophy. 5. Overall left ventricular systolic function is normal with, an EF between 55 - 60 %. 6. The right ventricle is normal in size. 7. The left atrial size is normal. 8. The right atrial size is normal. 9. The aortic valve is trileaflet and appears structurally normal. 10. The mitral valve is normal. 11. There is trace mitral regurgitation. 12. The tricuspid valve appears structurally normal. 13. Mild tricuspid regurgitation present. 14. Right ventricular systolic pressure is normal at < 35 mmHg. 15. There is no pulmonic regurgitation present. 16. The aortic root size is normal. 17. Normal inferior vena cava with normal inspiratory collapse consistent with estimated right atrial pressure of 5 mmHg. 18. There is no pericardial effusion. SEPTIC TANK SERVICER: Viky Cruz RDCS
[2020-02-21 12:17] LABS: Glucose,Whole Blood 127 mg/dL (75-99)
[2020-02-21 12:47] LABS: % Iron Saturation 25.87 (15.00-50.00); Iron 74 ug/dL (65-175); Total Iron Binding Capacity 286 ug/dL (228-460)
--- NOTE | 2020-02-21 15:17 | P.PN ---
Subjective Progress Note Date: 02/21/20 (delayed charting seen at 1030) Principal diagnosis: right hand impairment Patient is a 49-year-old male with autism, diabetes mellitus, hypertension who is sent in due to possible difficulty with his right hand and ataxia per his caregiver. In the emergency department he underwent an extensive evaluation. Initial laboratory analysis showed a mild anemia with hemoglobin of 11.8, platelets 126. CT brain showed no acute process. CTA of the head and neck demonstrated possible stenosis of the left vertebral artery with a normal [place] and no flow limiting lesions in the bilateral carotids. He is admitted for possible TIA versus stroke. EKG demonstrated normal sinus rhythm without any significant ST-T wave changes. Chest x-ray showed no acute process. He was started on aspirin and Lipitor. Neurology was consulted. He underwent an echocardiogram which showed a preserved ejection fraction and no significant changes. Iron studies were normal. Seen by neurology who was concerned that he could have a possible neck lesion and recommended outpatient EMG as well as MRA of the head and neck to evaluate for possible vertebral artery stenosis. Patient seen and examined at bedside. He has limited verbal ability. He denies any pain, shortness of breath, nausea, or vomiting. 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 annelise crackers with his right hand Objective - Vital Signs Vital signs: Vital Signs Temp 97.6 F 02/21/20 07:57 Pulse 78 02/21/20 11:45 Resp 14 02/21/20 07:57 BP 129/72 02/21/20 11:45 Pulse Ox 100 02/21/20 11:45 Intake & Output 02/20/20 02/21/20 02/21/20 18:59 06:59 18:59 Intake Total 1080 236 Balance 1080 236 Weight 78.925 kg 77.6 kg Intake: Oral 1080 236 Other: # Voids 1 - Exam General: non toxic, no distress, appears at stated age Derm: warm, dry Head: atraumatic, normocephalic, symmetric Eyes: EOMI, no lid lag, anicteric sclera Mouth: no lip lesion, mucus membranes moist Cardiovascular: S1S2 reg, no murmur, positive posterior tibial pulse bilateral, Lungs: CTA bilateral, no rhonchi, no rales , no accessory muscle use Abdominal: soft, nontender to palpation, no guarding, no appreciable organomegaly Ext: no gross muscle atrophy, no edema, no contractures Neuro: CN II-XI grossly intact, moving all 4 extremities independently, able to grasp things with his right and left hand, difficulty with attention span, answers yes or no questions appropriately. Psych: Alert, oriented, flat affect - Labs CBC & Chem 7: 02/21/20 06:22 02/21/20 06:22 Labs: Abnormal Lab Results - Last 24 Hours (Table) 02/20/20 02/21/20 02/21/20 Range/Units 20:21 06:22 06:22 Hct 38.6 L (39.0-53.0) % Plt Count 130 L (150-450) k/uL Carbon Dioxide 32 H (22-30) mmol/L POC Glucose (mg/dL) 130 H (75-99) mg/dL 02/21/20 Range/Units 12:17 Hct (39.0-53.0) % Plt Count (150-450) k/uL Carbon Dioxide (22-30) mmol/L POC Glucose (mg/dL) 127 H (75-99) mg/dL Assessment and Plan Assessment: Right hand incoordination and ataxia - Neuro recs appreciated: MRA head and neck, MRI brain - await PT/OT assessment - ASA, lipitor - follow BP - Tele - Cholesterol profile normal DM 2 - not on any medications - BS controlled on morning labs - add A1C to blood in lab - no need for continue blood sugar monitor or insulin HTN - controlled - continue with enalapril - follow BP Thrombocytopenia, at baseline - suspect medication related with cloazril - follow CBC Autism with cognitive impairment - supportive care DVT prophylaxis: Heparin Discussed with: Patient, nursing Anticipated discharge: In a.m. Anticipated discharge place: Return home A total of 65 minutes was spent on the care of this complex patient more than 50% of the time was spent in counseling and care coordination.
[2020-02-21 16:38] LABS: Glucose,Whole Blood 143 mg/dL (75-99)
--- NOTE | 2020-02-21 17:26 | P.CNNES ---
History of Present Illness Consult date: 02/21/20 Reason for Consult: Report of acute onset of right-handed coordination d ifficulties Chief complaint: Clumsiness coordination difficulty with right hand History of Present Illness: This is a new consult for a 49-year-old gentleman who has a known history for autistic spectrum disorder. He was brought in to the emergency room by his caregiver reporting that they have noticed more difficulty with him being able to use his right hand and reports possible pain in the right hand. This all appeared to be acute according to the caregiver, occurring one day prior to admission at approximately 6 PM. There was denial of any known trauma. The caregiver also reports that with this acute onset the patient would now tend to lean more towards the right now with walking. This patient does have significant stroke risk factors: Diabetes and hypertension. The diabetes currently is well controlled with diet. This patient has undergone a comprehensive workup since admission which includes the followin. Brain CT noncontrast: Negative for any acute intracranial pathology 2. Chest x-ray negative 3. Echo: Normal sinus rhythm. Normal ejection fraction 55-60% 4. CT angio the head and neck showed stenosis at the origin of the left vertebral artery. I reviewed the CT a directly with the radiologist [facility] principal solution specialist and we both agreed that further imaging studies to confirm this to assure that this is not occlusion would be helpful with an MRA of the neck. Pertinent labs include: Decreased platelets 126 Elevated glucose 119 This patient on behavioral medications: Clozapine Cogentin Celexa Perphenazine Past Medical History Past Medical History: Diabetes Mellitus, Hypertension Additional Past Medical History / Comment(s): Diet controlled diabetes, autism, intellectual impairment History of Any Multi-Drug Resistant Organisms: None Reported Past Surgical History: No Surgical Hx Reported Additional Past Surgical History / Comment(s): BROTHER STATED NO KNOWN SX Past Anesthesia/Blood Transfusion Reactions: Unable to Obtain Additional Past Anesthesia/Blood Transfusion Reaction / Comment(s): NEVER HAD ANY SX Smoking Status: Never smoker - Past Family History Father Family Medical History: Cancer Additional Family Medical History / Comment(s): COLON CANCER Mother Family Medical History: Cancer, Diabetes Mellitus, Hypertension Additional Family Medical History / Comment(s): OBESITY, FROM METASTATIC KINDEY CANCER Medications and Allergies Home Medications Medication Instructions Recorded Confirmed Type ARIPiprazole 15 mg PO BID 07/29/18 02/20/20 History Benztropine Mesylate [Cogentin] 0.5 mg PO TID 07/29/18 02/20/20 History Cholecalciferol (Vitamin D3) 2,000 unit PO DAILY@0700 07/29/18 02/20/20 History [Vitamin D3] Citalopram Hydrobromide [CeleXA] 40 mg PO DAILY 07/29/18 02/20/20 History Enalapril [Vasotec] 5 mg PO DAILY@0700 07/29/18 02/20/20 History LORazepam [Ativan] 1 tab PO TID 07/29/18 02/20/20 History Nystatin [Nystop] 1 applic TOPICAL BID PRN 07/29/18 02/20/20 History Perphenazine [Trilafon] 8 mg PO TID 07/29/18 02/20/20 History LORazepam [Ativan] 2 mg PO Q4H PRN 02/20/20 02/20/20 History Melatonin 5 mg PO HS 02/20/20 02/20/20 History Triamcinolone 0.025% Cream 1 applic TOPICAL 02/20/20 02/20/20 History [Kenalog 0.025% Cream] cloZAPine [Clozaril] 100 mg PO BID 02/20/20 02/20/20 History Allergies Allergy/AdvReac Type Severity Reaction Status Date / Time No Known Allergies Allergy Verified 02/20/20 14:08 Physical Examination - Vital Signs Vital Signs: Vital Signs Temp Pulse Pulse Resp BP BP Pulse Ox 02/21/20 16:00 96.3 F L 78 14 145/74 100 02/21/20 11:45 78 129/72 100 02/21/20 11:43 78 129/72 100 02/21/20 07:57 97.6 F 88 14 123/77 100 02/21/20 04:00 97.6 F 71 18 155/88 99 02/21/20 00:00 98.3 F 69 18 115/70 99 02/20/20 20:00 97.3 F L 64 16 143/76 100 02/20/20 18:17 64 16 132/72 99 02/20/20 17:17 66 16 140/72 99 Intake and Output 02/21/20 02/21/20 02/21/20 06:59 14:59 22:59 Intake Total 3509 030 7629 Balance 4489 474 2238 Intake: Oral 3812 473 7234 Other: # Voids 1 6 Weight 77.6 kg Neurological exam was somewhat limited due to the patient's mental capacity Pupils: 2 mm equal. Cranial nerve examination: Patient tracks well no nystagmus noted on vertical horizontal gaze. Face appears symmetric. Cranial nerve VIII intact by clinical observation. Tongue appears midline without fasciculations or deviation. Motor examination patient moves all 4 extremities equally No fasciculations or tremor noted There is notable contractures of the right hand with wasting compared to the left hand. Formal strength testing was difficult due to patient's capacity. Overall his strength appears 5 out of 5 throughout but there does appear to be weakness with his ability to hold objects in the right hand. Next Deep tendon reflexes: Brisk over biceps brachial radialis bilaterally. Patellar reflexes are trace bilaterally. Unable to elicit ankle jerks. Next Sensory examination grossly appears intact to light touch. Coordination testing: Patient has great difficulty with opening and closing the left hand. He has difficulty with fine motor coordination. Gait examination: Patient is able to ambulate without assistance. His gait is slightly lurching wide-based but not ataxic. Results - Laboratory Findings CBC and BMP: 02/21/20 06:22 02/21/20 06:22 Abnormal Lab Findings: Abnormal Labs 02/20/20 02/20/20 02/20/20 14:02 14:11 14:11 RBC 3.94 L Hgb 11.8 L Hct 34.1 L Plt Count 126 L Lymphocytes # 0.8 L Carbon Dioxide Glucose 119 H POC Glucose (mg/dL) 142 H Total Protein 6.0 L Albumin 3.3 L 02/20/20 02/21/20 02/21/20 20:21 06:22 06:22 RBC Hgb Hct 38.6 L Plt Count 130 L Lymphocytes # Carbon Dioxide 32 H Glucose POC Glucose (mg/dL) 130 H Total Protein Albumin 02/21/20 02/21/20 12:17 16:37 RBC Hgb Hct Plt Count Lymphocytes # Carbon Dioxide Glucose POC Glucose (mg/dL) 127 H 143 H Total Protein Albumin Assessment and Plan Assessment: This is a 49-year-old gentleman with autism who was brought in by his caregiver due to acute onset of what was claimed to be difficulty with coordination of the right hand with some difficulty with gait leaning towards the right. This patient does have significant stroke risk factors hypertension and diabetes. His examination today does show the poor coordination with the right hand. However this could be chronic as the right hand appears wasted smaller compared to the left hand. I did observe great difficulty with fine hand motor coordination. His gait is slightly wide-based lurching but not ataxic. I did not observe any leaning towards the right. His neuroimaging studies were significant in that the CT angiogram of the neck shows stenosis at the origin of the left vertebral artery however this would not explained the reason for this admission. I discussed this case with an radiologist and due to his stroke risk factors it would be helpful to obtain an MRA to confirm this finding. Due to the history of an acute nature in his stroke risk factors a further st roke workup would be helpful which should include an MRI of the brain without contrast. Due to the wasting of the hand this also could be related to cervical neck disease and an MRI of the C-spine without contrast would also be helpful. This patient's condition will require him to be sedated prior to the studies. OT is essential in this admission for their input which would be much appreciated. Summary 1. Autistic adult male with reported acute onset of incoordination of the right hand and gait instability 2. CT angio demonstrating possible high-grade stenosis of the left vertebral artery 3. Neuro examination confirming: Poor hand coordination, wasting of the intrinsic muscles of the right hand Recommendations: 1. MRA of the neck without contrast to further evaluate high-grade stenosis of the left vertebral artery 2. MRI of the brain without contrast to rule out possible upper motor neuron cause for poor hand coordination (possible left internal capsule infarct) 3. MRI of the C-spine without contrast to rule out possible cervical neck disease as a possible etiology of poor hand coordination especially in light of the wasting of the intrinsic muscles of the hand 4. Occupational therapy's input would be greatly appreciated as well as physical therapy due to his wide-based gait 5. Patient's discharge should be held until a confirm diagnosis is made. 6. Due to this patient's mental capacity he may require one-on-one sitter. 7. Continue with patient's home meds and maintain systolic blood pressure between 120-130 & DBP 80-90. 8. Lipid panel in a.m. This patient's prognosis remains guarded. Further recommendations will be made as this case evolves. Thank you for allowing me to dissipate in the care of you david patient and for this consultation. Norma Cortez M.D. Board Certified in Neurology and Sleep Medicine
[2020-02-21] MEDS: ATORVASTATIN 80 MG TAB PO SCH (21:22)
[2020-02-21] MEDS: MELATONIN 5 MG TABLET PO SCH (21:22)
[2020-02-22 01:33] VITALS: RESP 16
[2020-02-22] MEDS: LISINOPRIL 10 MG TAB PO SCH (06:06)
[2020-02-22] MEDS: CHOLECALCIFEROL 1,000 UNIT TAB PO SCH (06:06)
[2020-02-22] MEDS: PANTOPRAZOLE 40 MG TABLET PO SCH ×2 (06:06→16:46)
[2020-02-22 06:25] LABS: Basophils % (A) 1 %; Eosinophils # (A) 0.1 k/uL (0-0.7); Eosinophils % (A) 3 %; HCT 36.3 % (39.0-53.0); HGB 12.1 gm/dL (13.0-17.5); Lymphocytes % (A) 19 %; MCH 29.4 pg (25.0-35.0); MCHC 33.4 g/dL (31.0-37.0); MCV 87.9 fL (80.0-100.0); Mean Platelet Volume 8.9; Monocytes # (A) 0.4 k/uL (0-1.0); Monocytes % (A) 7 %; Neutrophils # (A) 3.8 k/uL (1.3-7.7); Neutrophils % (A) 70 %; Platelet Count 125 k/uL (150-450); RBC 4.13 m/uL (4.30-5.90); WBC 5.4 k/uL (3.8-10.6)
[2020-02-22] MEDS: cloZAPine 100 MG TAB PO SCH (09:30)
[2020-02-22] MEDS: BENZTROPINE MESYLATE 0.5 MG TAB PO SCH ×2 (09:30→16:46)
[2020-02-22] MEDS: HEPARIN SODIUM,PORCINE 5,000 UNIT/ML 1 ML VIAL SQ SCH ×2 (09:30→16:47)
[2020-02-22] MEDS: CITALOPRAM HYDROBROMIDE 20 MG TAB PO SCH (09:30)
[2020-02-22] MEDS: ARIPiprazole 15 MG TAB PO SCH (09:30)
[2020-02-22] MEDS: LORazepam 1 MG TAB PO SCH ×2 (09:31→16:46)
[2020-02-22] MEDS: PERPHENAZINE 4 MG TAB PO SCH ×2 (09:31→16:46)
[2020-02-22] MEDS: ASPIRIN 325 MG TAB PO SCH (09:31)
[2020-02-22 11:29] VITALS: TEMP 98
[2020-02-22 12:54] LABS: Hemoglobin A1C 4.5 % (4.0-6.0)
--- NOTE | 2020-02-22 13:32 | MR ---
EXAMINATION TYPE: MR brain/cspine wo DATE OF EXAM: 02/22/2020 COMPARISON: CT brain dated 2 days ago. HISTORY: Neuro deficits, CVA, abnormal CTA, narrowing left vertebral artery TECHNIQUE: Multiplanar, multisequence imaging of the brain and brainstem and cervical spine are all p erformed without IV contrast. FINDINGS: BRAIN: Diffusion weighted images demonstrate no evidence of a recent infarct or other diffusion abnormality. There is no worrisome extra-axial fluid collection. Mild ventricular and sulcal prominence. Some scat tered foci of T2 hyperintensity seen throughout the white matter bilaterally scattered throughout the superficial deep and periventricular levels. Approximately 15-20 scattered small lesions are felt pr esent Midline structures demonstrate normal morphology. The craniocervical junction appears within normal limits. Normal vascular flow voids are present. The visualized sinuses are clear and the globes are i ntact. IMPRESSION: 1. No MRI evidence for a recent infarct. 2. Mild diffuse age-related cerebral atrophy and mild nonspecific white matter changes most likely on the basis of product of chronic small vessel ischemic change in patient of this age. C-SPINE: FINDINGS: Coronal images show levoconvex scoliotic curvature or position centered upper thoracic spin e. Sagittal images of the cervical spine show the craniocervical junction to appear within normal li mits. The cervical and upper thoracic spinal cord is normal in caliber and signal. Vertebral alignm ent is anatomic. The vertebral body and intravertebral disk heights are normal. Tiny posterior disk herniation is identified sagittal images T2-T3 level. The bone marrow signal intensity is within norm al limits. Axial images show there is no significant focal disk disease, spinal canal stenosis, neural foraminal narrowing, or spinal cord compromise at any cervical level. IMPRESSION: Slight scoliotic curvature otherwise unremarkable study.
--- NOTE | 2020-02-22 15:52 | MR ---
EXAMINATION TYPE: MR angio neck wo con DATE OF EXAM: 02/22/2020 COMPARISON: MRI brain 02/22/2020 HISTORY: Neuro deficits, CVA, abnormal CTA, narrowing left vertebral artery Standard multiplanar, multisequence MRI departmental protocol Multiplanar, multisequence images of MRA of the neck performed. FINDINGS: Exam is extraordinarily limited due to motion artifact. Grossly the carotid arteries are patent bilat erally with no significant stenosis at the level of the carotid bifurcation. Left vertebral artery is markedly diminutive in size which could be congenital. Other etiologies not excluded. Right vertebral artery has a normal appearance. IMPRESSION: Severely limited exam due to motion artifact. Left vertebral artery is markedly limited in assessment . Right vertebral artery appears to be patent and of normal caliber. Correlated with dedicated angiog pancho as clinically warranted.
--- NOTE | 2020-02-22 17:10 | P.DS ---
Providers Date of admission: 02/20/20 14:40 Expected date of discharge: 02/22/20 Attending physician: Daron Stanton DO Consults: 02/20/20 14:42 Consult Physician Urgent Consulting Provider: Norma Cortez Consult Reason/Comments: cva Do you want consulting provider notified?: Yes Primary care physician: [facility] Course: Discharge Diagnosis: Right intrinsic hand muscles weakness Possible left vertebral artery stenosis Autism DM 2 HTN Thrombocytopenia Hospital Course: Patient is a 49-year-old male with autism, diabetes mellitus, hypertension who is sent in due to possible difficulty with his right hand and ataxia per his caregiver. In the emergency department he underwent an extensive evaluation. Initial laboratory analysis showed a mild anemia with hemoglobin of 11.8, platelets 126. CT brain showed no acute process. CTA of the head and neck demonstrated possible stenosis of the left vertebral artery with a normal [place] and no flow limiting lesions in the bilateral carotids. He is admitted for possible TIA versus stroke. EKG demonstrated normal sinus rhythm without any significant ST-T wave changes. Chest x-ray showed no acute process. He was started on aspirin and Lipitor. Neurology was consulted. He underwent an echocardiogram which showed a preserved ejection fraction and no significant changes. Iron studies were normal. Seen by neurology who was concerned that he could have a possible neck lesion and recommended outpatient EMG as well as MRA of the head and neck to evaluate for possible vertebral artery stenosis. His MRI of the brain showed no acute intracranial abnormality and cervical spine showed scoliosis. MRA was unable to evaluate the left vertebral artery and recommended cerebral angiogram. Discussed with neurology and this would not warrent acute inpatient cerbral angiogram, out patient follow-up with interventional neurology as indicated. Also recommended outpatient OT and neurology evaluation Patient seen and examined at bedside. Denies pain, pleasant asking to go home. Vital signs reviewed and stable. General: non toxic, no distress, appears at stated age Derm: warm, dry Head: atraumatic, normocephalic, symmetric Eyes: EOMI, no lid lag, anicteric sclera Mouth: no lip lesion, mucus membranes moist Cardiovascular: S1S2 reg, no murmur, positive posterior tibial pulse bilateral, Lungs: Decreased bs bilateral, no rhonchi, no rales , no accessory muscle use Abdominal: soft, nontender to palpation, no guarding, no appreciable organomegaly Ext: no gross muscle atrophy, no edema, no contractures Neuro: CN II-XI grossly intact, no focal neuro deficits, right intrinsic hand muscle wasting Psych: Alert, oriented, flat affect, slowed thinking A total of 35 minutes of time were spent preparing this complex discharge summary . Patient Condition at Discharge: Stable Plan - Discharge Summary Discharge Rx Participant: No New Discharge Prescriptions: New Pantoprazole [Protonix] 40 mg PO AC-BID tablet. Continue ARIPiprazole 15 mg PO BID Perphenazine [Trilafon] 8 mg PO TID Nystatin [Nystop] 1 applic TOPICAL BID PRN PRN Reason: TO SKIN FOLDS Enalapril [Vasotec] 5 mg PO DAILY@0700 Citalopram Hydrobromide [CeleXA] 40 mg PO DAILY Cholecalciferol (Vitamin D3) [Vitamin D3] 2,000 unit PO DAILY@0700 LORazepam [Ativan] 1 tab PO TID Benztropine Mesylate [Cogentin] 0.5 mg PO TID cloZAPine [Clozaril] 100 mg PO BID LORazepam [Ativan] 2 mg PO Q4H PRN PRN Reason: Anxiety Triamcinolone 0.025% Cream [Kenalog 0.025% Cream] 1 applic TOPICAL HS Melatonin 5 mg PO HS Discharge Medication List ARIPiprazole 15 mg PO BID 07/29/18 [History] Benztropine Mesylate [Cogentin] 0.5 mg PO TID 07/29/18 [History] Cholecalciferol (Vitamin D3) [Vitamin D3] 2,000 unit PO DAILY@0700 07/29/18 [History] Citalopram Hydrobromide [CeleXA] 40 mg PO DAILY 07/29/18 [History] Enalapril [Vasotec] 5 mg PO DAILY@0700 07/29/18 [History] LORazepam [Ativan] 1 tab PO TID 07/29/18 [History] Nystatin [Nystop] 1 applic TOPICAL BID PRN 07/29/18 [History] Perphenazine [Trilafon] 8 mg PO TID 07/29/18 [History] LORazepam [Ativan] 2 mg PO Q4H PRN 02/20/20 [History] Melatonin 5 mg PO HS 02/20/20 [History] Triamcinolone 0.025% Cream [Kenalog 0.025% Cream] 1 applic TOPICAL HS 02/20/20 [History] cloZAPine [Clozaril] 100 mg PO BID 02/20/20 [History] Pantoprazole [Protonix] 40 mg PO AC-BID tablet. 02/22/20 [Rx] Follow up Appointment(s)/Referral(s): Robles Valenzuela DO [Primary Care Provider] - 1-2 Days (Unable to make a follow- up appointment in office due to COVID restrictions, per healthcare receptionist. Please call the office at to schedule a virtual appoinment within the following 1-2 days after discharge from the hospital.) Estefani Ferrer MD [REFERRING] - 1 Week Piedad Martin MD [STAFF PHYSICIAN] - 2 Weeks (after seen by local neurologist ) Discharge Disposition: HOME SELF-CARE
[2020-02-22 18:11] VITALS: BP 127/73; PULSE 87
== END 2020-02-22 18:43 | disposition home or self-care (01) | DRG 558 ==
LOC: EC 13:04 → 3SCARD 14:40
PROVIDERS: ADMIT Internal Medicine; ATTEND Internal Medicine
DX: M62.541 Muscle wasting and atrophy, not elsewhere classified, right hand (principal); F84.0 Autistic disorder; Z11.59 Encounter for screening for other viral diseases; D69.6 Thrombocytopenia, unspecified; I65.02 Occlusion and stenosis of left vertebral artery; E11.9 Type 2 diabetes mellitus without complications; I10 Essential (primary) hypertension; F79 Unspecified intellectual disabilities; R29.810 Facial weakness; R27.0 Ataxia, unspecified; D64.9 Anemia, unspecified; R26.89 Other abnormalities of gait and mobility; Z79.899 Other long term (current) drug therapy; Z80.0 Family history of malignant neoplasm of digestive organs; Z83.3 Family history of diabetes mellitus; Z82.49 Family history of ischemic heart disease and other diseases of the circulatory system; Z80.51 Family history of malignant neoplasm of kidney
CPT/HCPCS: 36415; 70450; 70496; 70498; 70547; 70551; 71046; 72141; 80053; 80061; 82553; 83036; 83540; 83550; 84484; 85025; 85610; 85730; 93005; 93306; 96372; 99285

== ENCOUNTER 2020-02-24 07:29 | Observation (INO) | payer MEDICARE, OTHER ==
--- NOTE | 2020-02-24 08:32 | ED ---
General Adult HPI - General Stated complaint: revisit-right arm weakness Time Seen by Provider: 02/24/20 07:42 Source: patient, RN notes reviewed, old records reviewed, Caregiver Mode of arrival: ambulatory Limitations: altered mental status, physical limitation - History of Present Illness Initial comments: 49-year-old male history of hypertension, autism, presenting for reevaluation of right hand weakness. Patient was seen at this institution several days ago, admitted for CVA workup. He received an extensive neurological evaluation including neurology consult, MRI, CT, CT angiography. Patient had some improvement in his hand function and was discharged. He was scheduled for follow-up with neurology as an outpatient. This morning he woke with some mild worsening of his weakness in the right hand. He has some coordination issues and is unable to extend at the wrist. No other reported neurological findings. Patient is only able to respond to very simple questions. History obtained predominantly from the caregiver. - Related Data Home Medications Medication Instructions Recorded Confirmed ARIPiprazole 15 mg PO BID 07/29/18 02/20/20 Benztropine Mesylate [Cogentin] 0.5 mg PO TID 07/29/18 02/20/20 Cholecalciferol (Vitamin D3) 2,000 unit PO DAILY@0700 07/29/18 02/20/20 [Vitamin D3] Citalopram Hydrobromide [CeleXA] 40 mg PO DAILY 07/29/18 02/20/20 Enalapril [Vasotec] 5 mg PO DAILY@0700 07/29/18 02/20/20 LORazepam [Ativan] 1 tab PO TID 07/29/18 02/20/20 Nystatin [Nystop] 1 applic TOPICAL BID PRN 07/29/18 02/20/20 Perphenazine [Trilafon] 8 mg PO TID 07/29/18 02/20/20 LORazepam [Ativan] 2 mg PO Q4H PRN 02/20/20 02/20/20 Melatonin 5 mg PO HS 02/20/20 02/20/20 Triamcinolone 0.025% Cream 1 applic TOPICAL HS 02/20/20 02/20/20 [Kenalog 0.025% Cream] cloZAPine [Clozaril] 100 mg PO BID 02/20/20 02/20/20 Previous Rx's Medication Instructions Recorded Pantoprazole [Protonix] 40 mg PO AC-BID tablet. 02/22/20 Pantoprazole [Protonix] 40 mg PO DAILY #30 tablet. 02/23/20 Allergies Allergy/AdvReac Type Severity Reaction Status Date / Time No Known Allergies Allergy Verified 02/24/20 08:36 Review of Systems ROS Statement: Those systems with pertinent positive or pertinent negative responses have been documented in the HPI. ROS Other: All systems not noted in ROS Statement are negative. Past Medical History Past Medical History: CVA/TIA, Diabetes Mellitus, Hypertension Additional Past Medical History / Comment(s): Diet controlled diabetes, autism, intellectual impairment History of Any Multi-Drug Resistant Organisms: None Reported Past Surgical History: No Surgical Hx Reported Additional Past Surgical History / Comment(s): BROTHER STATED NO KNOWN SX Past Anesthesia/Blood Transfusion Reactions: Unable to Obtain Additional Past Anesthesia/Blood Transfusion Reaction / Comment(s): NEVER HAD ANY SX Past Psychological History: No Psychological Hx Reported Smoking Status: Never smoker Past Alcohol Use History: None Reported Past Drug Use History: None Reported - Past Family History Father Family Medical History: Cancer Additional Family Medical History / Comment(s): COLON CANCER Mother Family Medical History: Cancer, Diabetes Mellitus, Hypertension Additional Family Medical History / Comment(s): OBESITY, FROM METASTATIC KINDEY CANCER General Exam Limitations: altered mental status, physical limitation General appearance: alert, in no apparent distress Head exam: Present: atraumatic, normocephalic Eye exam: Present: normal appearance, PERRL ENT exam: Present: normal exam Neck exam: Present: normal inspection. Absent: tenderness, meningismus Respiratory exam: Present: normal lung sounds bilaterally. Absent: respiratory distress, wheezes Cardiovascular Exam: Present: regular rate, normal rhythm GI/Abdominal exam: Present: soft. Absent: distended, tenderness, guarding Extremities exam: Present: other (There is wasting of the thenar and hyperthenar eminence on the right hand. There is weakness at the wrist with extension, decreased income auditor strength, normal pulses.) Course Vital Signs 02/24/20 07:44 Temperature 98.6 F Pulse Rate 97 Respiratory 18 Rate Blood Pressure 113/68 O2 Sat by Pulse 96 Oximetry Procedures - Orthopedic Splinting/Casting Injury #1 Side: right Upper Extremity Injury Location: wrist Upper Extremity Immobilizer: wrist splint Additional Comments: Patient vascularly intact both before and after splinting Medical Decision Making - Medical Decision Making 49-year-old male presenting for reevaluation of right hand weakness and loss of coordination. Patient exam seems consistent with what was documented in the medical record previously. I did discuss case with neurology Dr. Cortez, images including MRI MRA of the head and neck were reviewed. Recommends MRI of the brachial plexus, MRI has been ordered, patient will be placed in observation with neurology on consult. Patient placed in a cockup wrist splint Disposition Clinical Impression: Wristdrop, CVA (cerebral vascular accident) Disposition: ADMITTED IP TO THIS HOSP Condition: Stable Is patient prescribed a controlled substance at d/c from ED?: No Referrals: Robles Valenzuela DO [Primary Care Provider] - 1-2 days Decision to Admit Reason: Admit from EC Decision Date: 02/24/20 Decision Time: 08:36
[2020-02-24] MEDS ORDERED: NALOXONE 0.4 MG/ML 1 ML VIAL IV PRN (08:49)
[2020-02-24] MEDS ORDERED: LORazepam 1 MG TAB PO PRN ×2 (13:00→20:00)
--- NOTE | 2020-02-24 16:14 | MR ---
EXAMINATION TYPE: MR brachial plexus RT wo con DATE OF EXAM: 02/24/2020 COMPARISON: None HISTORY: Right Wrist Drop CONTRAST: Performed utilizing 0 mL intravenous Gadavist gadolinium contrast. TECHNIQUE: Multiplanar, multiecho imaging on a 3.0 Varsha magnet is performed through the brachial ple xus with attention to the right. Findings: No suspicious axillary masses are evident. Vascular signal appears normal. The expected course of the brachial plexus appears normal. No abnormal signal or lesions are identified. IMPRESSIONS: 1. No suspicious abnormality right brachial plexus region.
--- NOTE | 2020-02-24 19:01 | P.HPIM ---
History of Present Illness H&P Date: 02/24/20 Chief Complaint: Right hand weakness Patient is a 49-year-old male with a history of October with intellectual disability, prior diabetes mellitus, and hypertension who was brought in by his lab coordinator secondary right hand weakness. Patient had recently been hospitalized here from 02/17- for the same problem. At that point in time he had a negative MRI of the brain, negative MRA of the neck, negative MRI of the cervical spine which demonstrated scoliosis but no significant impingement. At that point in time he was discharged home for outpatient follow-up with possible need for MRI of the brachial plexus as well as EMG. Apparently there is concern for worsening of his condition and he was brought back in. In the ER his vital signs are within normal limits. Laboratory analysis was not redone as it was within normal limits on 02/20. Neurology was contacted. Initial plan was for discharge home with continued outpatient follow-up, however outpatient neurology is not available until 03/27/2020 at the earliest #concern as to whether or not this could be brachial plexus lesion. His therefore placed in observation to undergo an MRI of the brachial plexus. Patient seen and examined at bedside, no caregivers her family present. He denies any current complaints. He is pleasant, well, and asking to be sat in a chair. Denies pain, chest pain, nausea, or hunger Review of Systems ROS unobtainable: due to mental status Past Medical History Past Medical History: CVA/TIA, Diabetes Mellitus, Hypertension Additional Past Medical History / Comment(s): Pt recently admitted to [facility] on 02/20/20 with R intrinsic hand muscle weakness/possible L vertebral artery stenosis/thrombocytopenia. Other hx: Diet controlled diabetes, autism, in tellectual impairment History of Any Multi-Drug Resistant Organisms: None Reported Past Surgical History: No Surgical Hx Reported Additional Past Surgical History / Comment(s): BROTHER STATED NO KNOWN SX Past Anesthesia/Blood Transfusion Reactions: Unable to Obtain Additional Past Anesthesia/Blood Transfusion Reaction / Comment(s): NEVER HAD ANY SX Smoking Status: Never smoker - Past Family History Father Family Medical History: Cancer Additional Family Medical History / Comment(s): COLON CANCER Mother Family Medical History: Cancer, Diabetes Mellitus, Hypertension Additional Family Medical History / Comment(s): OBESITY, FROM METASTATIC KINDEY CANCER Medications and Allergies Home Medications Medication Instructions Recorded Confirmed Type ARIPiprazole 15 mg PO BID 07/29/18 02/24/20 History Benztropine Mesylate [Cogentin] 0.5 mg PO MOTUWETHFR@,, PRN 07/29/18 02/24/20 History Cholecalciferol (Vitamin D3) 2,000 unit PO DAILY@0707/29/18 02/24/20 History [Vitamin D3] Citalopram Hydrobromide [CeleXA] 40 mg PO DAILY@69907/29/18 02/24/20 History Enalapril [Vasotec] 5 mg PO DAILY@69907/29/18 02/24/20 History LORazepam [Ativan] 1 mg PO MOTUWETHFR@,, PRN 07/29/18 02/24/20 History Nystatin [Nystop] 1 applic TOPICAL BID PRN 07/29/18 02/24/20 History Perphenazine [Trilafon] 8 mg PO MOTUWETHFR@,, PRN 07/29/18 02/24/20 History LORazepam [Ativan] 2 mg PO Q4H PRN 02/20/20 02/24/20 History Melatonin 10 mg PO HS@199902/20/20 02/24/20 History Triamcinolone 0.025% Cream 1 applic TOPICAL HS@199902/20/20 02/24/20 History [Kenalog 0.025% Cream] cloZAPine [Clozaril] 100 mg PO TID@0700,1600,199902/20/20 02/24/20 History Pantoprazole [Protonix] 40 mg PO AC-BID tablet. 02/22/20 02/24/20 Rx Allergies Allergy/AdvReac Type Severity Reaction Status Date / Time No Known Allergies Allergy Verified 02/24/20 08:36 Physical Exam Osteopathic Statement: *. No significant issues noted on an osteopathic structural exam other than those noted in the History and Physical/Consult. Vitals: Vital Signs Temp Pulse Pulse Resp BP BP Pulse Ox 02/24/20 16:00 96.9 F L 80 20 128/80 99 02/24/20 11:30 98.0 F 81 20 127/78 96 02/24/20 10:00 92 18 114/65 98 02/24/20 09:00 18 02/24/20 08:46 18 02/24/20 07:46 18 02/24/20 07:44 98.6 F 97 18 113/68 96 Intake and Output 02/24/20 02/24/20 02/24/20 06:59 14:59 22:59 Intake Total 240 Balance 240 Intake: Oral 240 Other: # Voids 1 Weight 76.204 kg General: non toxic, no distress, appears at stated age, normal weight Derm: no unusual rashes/lesions no unusual ecchymoses, warm, dry Head: atraumatic, normocephalic, symmetric Eyes: EOMI, no lid lag, anicteric sclera, pupils equal round reactive to light ENT: Nose and ears atraumatic, no thrush, no pharyngeal erythema Neck: No thyromegaly, no cervical lymphadenopathy, trachea midline, supple Mouth: no lip lesion, mucus membranes moist Cardiovascular: S1S2 reg, no murmur, positive posterior tibial pulse bilateral, no edema, capillary refill less than 2 seconds Lungs: CTA bilateral, no rhonchi, no rales , no accessory muscle use Abdominal: soft, nontender to palpation, no guarding, no appreciable organomegaly, normal bowel sounds Ext: no gross muscle atrophy, muscle strength 4-5 out of 5 in all 4 extremities grossly, no contractures, Neuro: Loww of intrinsice hand muscles on right, weakness with flexion at the wrist and extension of the finger, 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 folding 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 strength equal, CN II-XI grossly intact, light touch intact all 4 extremities, Psych: Pleasant, flat affect, slowed thinking, follow commands, Thrombosis Risk Factor Assmnt - DVT/VTE Prophylaxis DVT/VTE Prophylaxis: Pharmacologic Prophylaxis ordered - Choose All That Apply Any of the Below Risk Factors Present?: Yes Each Factor Represents 1 point: Age 41-60 years, Obesity (BMI >25) Other Risk Factors: No Other congenital or acquired thrombophilia - If yes, enter type in comment: No Each Risk Factor Represents 5 Points: Stroke (< 1 month) Thrombosis Risk Factor Assessment Total Risk Factor Score: 7 Thrombosis Risk Factor Assessment Level: High Risk Assessment and Plan Assessment: Right hand incoordination with wrist drop - Brachial plexus MRI negative (ordered this admission), - Last admission MRI of head and cervial spine negative, MRA with possible vertebral stenosis - neuro recs appreciated - monitor overnight and if no change then D/C in AM for outpatient follow-up with EMG with Dr. Sevilla. DM 2 - not on any medications - BS controlled all last admission - A1C 5.4 - no need for continue blood sugar monitoring HTN - controlled - continue with enalapril - follow BP Thrombocytopenia, at baseline last admission - suspect medication related with cloazril - follow CBC as outpatient Autism with cognitive impairment - supportive care DVT prophylaxis: Heparin Discussed with: Patient, nursing, ED physician, Dr. Cortez Anticipated discharge: In a.m. Anticipated discharge place: Return home A total of 45 minutes was spent on the care of this complex patient more than 50% of the time was spent in counseling and care coordination.
[2020-02-24] MEDS ORDERED: MELATONIN 3 MG TABLET PO PRN (19:04)
[2020-02-24] MEDS ORDERED: ACETAMINOPHEN TAB 325 MG TAB PO PRN (19:04)
[2020-02-24] MEDS ORDERED: NYSTATIN 100,000 UNIT/GM POWD 15 GM TOPICAL PRN (19:07)
[2020-02-24] MEDS ORDERED: BENZTROPINE MESYLATE 0.5 MG TAB PO PRN (20:00)
[2020-02-24] MEDS ORDERED: MELATONIN 5 MG TABLET PO SCH (20:00)
[2020-02-24] MEDS ORDERED: TRIAMCINOLONE 0.1% CREAM 80 GM TUBE TOPICAL SCH (20:00)
[2020-02-24] MEDS ORDERED: PERPHENAZINE 4 MG TAB PO PRN (20:00)
[2020-02-24] MEDS: cloZAPine 100 MG TAB PO SCH (20:28)
[2020-02-24] MEDS: ARIPiprazole 15 MG TAB PO SCH (20:28)
[2020-02-25 03:49] VITALS: RESP 16
[2020-02-25] MEDS: cloZAPine 100 MG TAB PO SCH (06:21)
[2020-02-25] MEDS ORDERED: CITALOPRAM HYDROBROMIDE 20 MG TAB PO SCH (07:00)
[2020-02-25] MEDS ORDERED: CHOLECALCIFEROL 1,000 UNIT TAB PO SCH (07:00)
[2020-02-25] MEDS ORDERED: LISINOPRIL 10 MG TAB PO SCH (07:00)
[2020-02-25] MEDS ORDERED: PANTOPRAZOLE 40 MG TABLET PO SCH (07:30)
[2020-02-25 07:59] VITALS: BP 130/63; PULSE 69; TEMP 98.4
--- NOTE | 2020-02-25 08:55 | P.DS ---
Providers Date of admission: 02/24/20 08:49 Expected date of discharge: 02/25/20 Attending physician: Jennifer Boyd DO Consults: 02/24/20 08:49 Consult Physician Routine Consulting Provider: Norma Cortez Consult Reason/Comments: Right hand weakness, wrist drop Do you want consulting provider notified?: Already Contacted Primary care physician: Robles Valenzuela [facility] Course: Discharge Diagnosis: Right hand incoordination with wrist drop DM 2 HTN Thromboctyopena Autism with intellectual debility Hospital Course: Patient is a 49-year-old male with a history of autism with intellectual disability, prior diabetes mellitus, and hypertension who was brought in by his outside sales account representative secondary right hand weakness. Patient had recently been hospitalized here from 02/17- for the same problem. At that point in time he had a negative MRI of the brain, negative MRA of the neck, negative MRI of the cervical spine which demonstrated scoliosis but no significant impingement. At that point in time he was discharged home for outpatient follow-up with possible need for MRI of the brachial plexus as well as EMG. Apparently there is concern for worsening of his condition and he was brought back in. In the ER his vital signs are within normal limits. Laboratory analysis was not redone as it was within normal limits on 02/20. Neurology was contacted. Initial plan was for discharge home with continued outpatient follow-up, however outpatient neurology is not available until 03/27/2020 at the earliest and concern was to whether or not this could be brachial plexus lesion. His therefore placed in observation to undergo an MRI of the brachial plexus. This was unremarkable. He was placed in a splint by OT. He was determined stable for discharge home with outpatient follow-up. He will follow-up with his PCP and neurology for outpatient EMG. Family and care givers contacted by Dr. Cortez as to need for outpatient work. Patient seen and examined at bedside. Feeling well wants to go home. Vital signs reviewed and stable. General: non toxic, no distress, appears at stated age Derm: warm, dry Head: atraumatic, normocephalic, symmetric Eyes: EOMI, no lid lag, anicteric sclera Mouth: no lip lesion, mucus membranes moist Cardiovascular: S1S2 reg, no murmur, positive posterior tibial pulse bilateral, Lungs: CTA bilateral, no rhonchi, no rales , no accessory muscle use Abdominal: soft, nontender to palpation, no guarding, no appreciable organomegaly Ext: no gross muscle atrophy, no edema, no contractures Neuro: right wrist drop with intrinsic hand muscle weakness. Psych: Awake alert to self and not being at home. A total of 20 minutes of time were spent preparing this complex discharge summary . Patient Condition at Discharge: Stable Plan - Discharge Summary Discharge Rx Participant: No New Discharge Prescriptions: No Action ARIPiprazole 15 mg PO BID Perphenazine [Trilafon] 8 mg PO MOTUWETHFR@07,12,20 PRN PRN Reason: WORKSHOP DAYS Nystatin [Nystop] 1 applic TOPICAL BID PRN PRN Reason: TO SKIN FOLDS Enalapril [Vasotec] 5 mg PO DAILY@0700 Citalopram Hydrobromide [CeleXA] 40 mg PO DAILY@0700 Cholecalciferol (Vitamin D3) [Vitamin D3] 2,000 unit PO DAILY@0700 LORazepam [Ativan] 1 mg PO MOTUWETHFR@07,12,20 PRN PRN Reason: WORKSHOP DAYS Benztropine Mesylate [Cogentin] 0.5 mg PO MOTUWETHFR@07,12,20 PRN PRN Reason: WORKSHOP DAYS cloZAPine [Clozaril] 100 mg PO TID@0700,1600,1999 LORazepam [Ativan] 2 mg PO Q4H PRN PRN Reason: Anxiety Triamcinolone 0.025% Cream [Kenalog 0.025% Cream] 1 applic TOPICAL HS@2000 Melatonin 10 mg PO HS@2000 Pantoprazole [Protonix] 40 mg PO AC-BID tablet.dr Discharge Medication List ARIPiprazole 15 mg PO BID 07/29/18 [History] Benztropine Mesylate [Cogentin] 0.5 mg PO MOTUWETHFR@07,12,20 PRN 07/29/18 [History] Cholecalciferol (Vitamin D3) [Vitamin D3] 2,000 unit PO DAILY@0700 07/29/18 [History] Citalopram Hydrobromide [CeleXA] 40 mg PO DAILY@0700 07/29/18 [History] Enalapril [Vasotec] 5 mg PO DAILY@0700 07/29/18 [History] LORazepam [Ativan] 1 mg PO MOTUWETHFR@07,12,20 PRN 07/29/18 [History] Nystatin [Nystop] 1 applic TOPICAL BID PRN 07/29/18 [History] Perphenazine [Trilafon] 8 mg PO MOTUWETHFR@,, PRN 07/29/18 [History] LORazepam [Ativan] 2 mg PO Q4H PRN 02/20/20 [History] Melatonin 10 mg PO HS@199902/20/20 [History] Triamcinolone 0.025% Cream [Kenalog 0.025% Cream] 1 applic TOPICAL HS@199902/20/20 [History] cloZAPine [Clozaril] 100 mg PO TID@0700,1600,199902/20/20 [History] Pantoprazole [Protonix] 40 mg PO AC-BID tablet. 02/22/20 [Rx] Follow up Appointment(s)/Referral(s): Jennifer Barney MD [Medical Doctor] - 03/27/20 (Prior to discharge, please fax cover sheet with Insurance Information and any relevant hospital records to [phone]. Amanuel the fax as URGENT and they will call the patient to schedule the appointment as soon as they have the information. Earliest appointment as of 02/23 is March 27, 2020.) Robles Valenzuela DO [Primary Care Provider] - 1-2 days
[2020-02-25] MEDS: ARIPiprazole 15 MG TAB PO SCH (10:15)
== END 2020-02-25 11:11 | disposition home health service (06) ==
LOC: EC 07:29 → 3SCARD 08:49
PROVIDERS: ADMIT Internal Medicine; ATTEND Internal Medicine
DX: M21.331 Wrist drop, right wrist (principal); R27.9 Unspecified lack of coordination; E11.9 Type 2 diabetes mellitus without complications; I10 Essential (primary) hypertension; D69.6 Thrombocytopenia, unspecified; F84.0 Autistic disorder; R41.82 Altered mental status, unspecified; Z79.899 Other long term (current) drug therapy; Z86.73 Personal history of transient ischemic attack (TIA), and cerebral infarction without residual deficits; F79 Unspecified intellectual disabilities; Z80.0 Family history of malignant neoplasm of digestive organs; Z83.3 Family history of diabetes mellitus; Z82.49 Family history of ischemic heart disease and other diseases of the circulatory system; Z84.89 Family history of other specified conditions; Z80.51 Family history of malignant neoplasm of kidney; E66.9 Obesity, unspecified; Z68.27 Body mass index [BMI] 27.0-27.9, adult; Z11.59 Encounter for screening for other viral diseases
CPT/HCPCS: 29125; 99285; 71550; G0378 ×2; U0003; S0136 ×2

== ENCOUNTER 2021-07-31 17:58 | Inpatient (IN) | payer MEDICARE, OTHER ==
[2021-07-31 19:22] LABS: ALT 9 U/L (4-49); AST 30 U/L (17-59); African American GFR (CKD) >90 (>60 ml/min/1.73 sqM); Albumin 3.9 g/dL (3.5-5.0); Alcohol <10 mg/dL; Alkaline Phosphatase 83 U/L (38-126); Anion Gap 5 mmol/L; Blood Urea Nitrogen 25 mg/dL (9-20); Calcium 9.2 mg/dL (8.4-10.2); Carbon Dioxide 29 mmol/L (22-30); Chloride 100 mmol/L (98-107); Glucose 89 mg/dL (74-99); Non-African American GFR(CKD) 87 (>60 ml/min/1.73 sqM); Potassium 4.5 mmol/L (3.5-5.1); Sodium 134 mmol/L (137-145); Total Bilirubin 0.5 mg/dL (0.2-1.3); Total Protein 6.9 g/dL (6.3-8.2)
[2021-07-31 19:23] LABS: Prothrombin Time 10.7 sec (9.0-12.0)
[2021-07-31 19:31] LABS: Basophils % (A) 1 %; Eosinophils # (A) 0.1 k/uL (0-0.7); Eosinophils % (A) 1 %; HCT 35.9 % (39.0-53.0); HGB 12.2 gm/dL (13.0-17.5); Lymphocytes # (A) 1.1 k/uL (1.0-4.8); Lymphocytes % (A) 18 %; MCH 28.7 pg (25.0-35.0); MCHC 33.9 g/dL (31.0-37.0); MCV 84.5 fL (80.0-100.0); Mean Platelet Volume 9.4; Monocytes # (A) 0.3 k/uL (0-1.0); Monocytes % (A) 5 %; Neutrophils # (A) 4.4 k/uL (1.3-7.7); Neutrophils % (A) 74 %; Platelet Count 144 k/uL (150-450); RBC 4.25 m/uL (4.30-5.90); RDW 13.5 % (11.5-15.5); WBC 5.9 k/uL (3.8-10.6)
--- NOTE | 2021-07-31 19:59 | XR ---
EXAMINATION TYPE: XR chest 2V DATE OF EXAM: 07/31/2021 COMPARISON: 02/20/2020 INDICATION: Altered mental status TECHNIQUE: Frontal and lateral views of the chest are obtained. FINDINGS: The heart size is normal. The pulmonary vasculature is normal. Minimal infiltrate is the right base particularly for atelectasis or early pneumonia. Follow-up can b e performed.. IMPRESSION: 1. Mild infiltrate at the right lower lobe. Correlate for atelectasis and pneumonia.
--- NOTE | 2021-07-31 20:33 | CT ---
EXAMINATION TYPE: CT brain wo con DATE OF EXAM: 07/31/2021 COMPARISON: 02/20/2020 INDICATION: AMS, possible TIA DLP: 1143.4 mGycm, Automated exposure control for dose reduction was used. CONTRAST: None CT of the brain is performed utilizing 3 mm thick sections through the posterior fossa and 3 mm thick sections through the remaining calvarium. Study is performed within 24 hours of arrival to the hosp ital. No abnormal hyperdensity is present to suggest an acute intracranial hemorrhage. No mass lesion is evident. r there is a 0.8 cm hypodensity within the left parietal subcortical white matter. This could be an a cute or subacute subcortical infarct. Correlate with symptoms. MRI may be more sensitive for evaluati on. Subtle periventricular white matter hypodensity may be present, likely on the basis of chronic white matter ischemic change. Ventricles and sulci are appropriate for the patient age. Paranasal sinuses and mastoid air cells within the [id number] are clear. IMPRESSIONS: 1. Small subcortical hypodensity left parietal lobe. Correlate with patient's symptoms. This may be acute or subacute area of ischemia. 2. Minimal periventricular white matter ischemic-type change may be present.
--- NOTE | 2021-07-31 20:41 | CT ---
EXAMINATION TYPE: CT abdomen pelvis w con DATE OF EXAM: 07/31/2021 COMPARISON: None INDICATION: Abdominal pain DLP: 1577.8 mGycm, Automated exposure control for dose reduction was used. CONTRAST: 100 mL of Isovue 300. Study performed without Oral Contrast TECHNIQUE: Axial images were obtained from above the diaphragm to the pubic rami in the axial plane a t 5 mm thick sections. Reconstructed images are reviewed on the computer in the coronal plane. FINDINGS: Limited CT sections are obtained the lung bases. The lung bases are clear. CT ABDOMEN: Liver: Normal Spleen: Normal Pancreas: Normal Adrenal glands: The adrenal glands are normal. Gallbladder: Large gallstone is present. Kidneys: No masses are evident. No hydronephrosis is present. No cysts are present. Delayed images were obtained through the kidneys, which remain unremarkable. Aorta: Normal Inferior vena cava: Normal. CT PELVIS: Loops of bowel within the abdomen and pelvis are normal. There is some mild fecal debris scattered th roughout the colon. The study is bilateral contrast limiting the evaluation. Appendix: Normal as visualized. Urinary bladder: Normal. Genitourinary structures: Uterus is normal. Adnexa are normal. Osseous structures: No suspicious lytic or sclerotic lesions. IMPRESSIONS: 1. No acute abnormality CT abdomen and pelvis. 2. Cholelithiasis. 3. Mild cortical retention.
[2021-07-31] MEDS ORDERED: ONDANSETRON 4 MG/2 ML VIAL IVP PRN (20:51)
[2021-07-31] MEDS ORDERED: HYDROcodone/APAP 5-325MG 1 EACH TAB PO PRN (20:51)
[2021-07-31] MEDS ORDERED: LORazepam 2 MG/ML INJ IV PRN (20:51)
[2021-07-31] MEDS ORDERED: NALOXONE 0.4 MG/ML 1 ML VIAL IV PRN (20:51)
[2021-07-31] MEDS ORDERED: TEMAZEPAM 15 MG CAP PO PRN (20:51)
[2021-07-31] MEDS ORDERED: CALCIUM CARBONATE 500 MG CHEWABLE PO PRN (20:51)
[2021-07-31] MEDS ORDERED: ACETAMINOPHEN TAB 325 MG TAB PO PRN (20:51)
--- NOTE | 2021-07-31 20:51 | ED ---
Neuro HPI - General Chief Complaint: Neuro Symptoms/Deficit Stated Complaint: possible mini stroke Time Seen by Provider: 07/31/21 18:49 Source: patient, Caregiver Mode of arrival: wheelchair Limitations: altered mental status - History of Present Illness Is the patient presenting with stroke symptoms?: No Initial Comments: Patient presents with altered mental status. He also has belly pain. He has no chest pain. He has no shortness of breath. He has no weakness. He has no headache. He has had a TIA in the past. He might of had a stroke previously. He has no nausea or vomiting. He has taken no medicine for his symptoms. - Related Data Home Medications: Home Medications Medication Instructions Recorded Confirmed ARIPiprazole 15 mg PO BID 07/29/18 02/24/20 Benztropine Mesylate [Cogentin] 0.5 mg PO MOTUWETHFR@,, PRN 07/29/18 02/24/20 Cholecalciferol (Vitamin D3) 2,000 unit PO DAILY@0700 07/29/18 02/24/20 [Vitamin D3] Citalopram Hydrobromide [CeleXA] 40 mg PO DAILY@0700 07/29/18 02/24/20 Enalapril [Vasotec] 5 mg PO DAILY@69907/29/18 02/24/20 LORazepam [Ativan] 1 mg PO MOTUWETHFR@,, PRN 07/29/18 02/24/20 Nystatin [Nystop] 1 applic TOPICAL BID PRN 07/29/18 02/24/20 Perphenazine [Trilafon] 8 mg PO MOTUWETHFR@,, PRN 07/29/18 02/24/20 LORazepam [Ativan] 2 mg PO Q4H PRN 02/20/20 02/24/20 Melatonin 10 mg PO HS@199902/20/20 02/24/20 Triamcinolone 0.025% Cream 1 applic TOPICAL HS@199902/20/20 02/24/20 [Kenalog 0.025% Cream] cloZAPine [Clozaril] 100 mg PO TID@0700,1600,199902/20/20 02/24/20 Previous Rx's Medication Instructions Recorded Pantoprazole [Protonix] 40 mg PO AC-BID tablet. 02/22/20 Allergies/Adverse Reactions: Allergies Allergy/AdvReac Type Severity Reaction Status Date / Time No Known Allergies Allergy Verified 02/24/20 08:36 Review of Systems ROS Statement: Those systems with pertinent positive or pertinent negative responses have been documented in the HPI. ROS Other: All systems not noted in ROS Statement are negative. General Exam Limitations: altered mental status General appearance: lethargic Head exam: Present: atraumatic Eye exam: Present: EOMI Pupils: Present: normal accommodation ENT exam: Present: normal exam Neck exam: Present: normal inspection Respiratory exam: Present: normal lung sounds bilaterally. Absent: respiratory distress Cardiovascular Exam: Present: regular rate, normal rhythm GI/Abdominal exam: Present: soft. Absent: distended, tenderness Extremities exam: Present: normal inspection. Absent: tenderness Back exam: Present: normal inspection. Absent: tenderness, CVA tenderness (R) Neurological exam: Present: altered Skin exam: Present: warm, dry Stroke MDM - Lab Data Result diagrams: 07/31/21 19:05 07/31/21 19:05 Lab Results 07/31/21 07/31/21 07/31/21 Range/Units 19:05 19:05 19:05 WBC 5.9 (3.8-10.6) k/uL RBC 4.25 L (4.30-5.90) m/uL Hgb 12.2 L (13.0-17.5) gm/dL Hct 35.9 L (39.0-53.0) % MCV 84.5 (80.0-100.0) fL MCH 28.7 (25.0-35.0) pg MCHC 33.9 (31.0-37.0) g/dL RDW 13.5 (11.5-15.5) % Plt Count 144 L (150-450) k/uL MPV 9.4 Neutrophils % 74 % Lymphocytes % 18 % Monocytes % 5 % Eosinophils % 1 % Basophils % 1 % Neutrophils # 4.4 (1.3-7.7) k/uL Lymphocytes # 1.1 (1.0-4.8) k/uL Monocytes # 0.3 (0-1.0) k/uL Eosinophils # 0.1 (0-0.7) k/uL Basophils # 0.0 (0-0.2) k/uL PT 10.7 (9.0-12.0) sec INR 1.0 (<1.2) APTT 28.0 (22.0-30.0) sec Sodium 134 L (137-145) mmol/L Potassium 4.5 (3.5-5.1) mmol/L Chloride 100 (98-107) mmol/L Carbon Dioxide 29 (22-30) mmol/L Anion Gap 5 mmol/L BUN 25 H (9-20) mg/dL Creatinine 0.99 (0.66-1.25) mg/dL Est GFR (CKD-EPI)AfAm >90 (>60 ml/min/1.73 sqM) Est GFR (CKD-EPI)NonAf 87 (>60 ml/min/1.73 sqM) Glucose 89 (74-99) mg/dL Calcium 9.2 (8.4-10.2) mg/dL Total Bilirubin 0.5 (0.2-1.3) mg/dL AST 30 (17-59) U/L ALT 9 (4-49) U/L Alkaline Phosphatase 83 (38-126) U/L Ammonia (<30) umol/L Troponin I (0.000-0.034) ng/mL Total Protein 6.9 (6.3-8.2) g/dL Albumin 3.9 (3.5-5.0) g/dL Serum Alcohol <10 mg/dL 07/31/21 07/31/21 Range/Units 19:05 19:05 WBC (3.8-10.6) k/uL RBC (4.30-5.90) m/uL Hgb (13.0-17.5) gm/dL Hct (39.0-53.0) % MCV (80.0-100.0) fL MCH (25.0-35.0) pg MCHC (31.0-37.0) g/dL RDW (11.5-15.5) % Plt Count (150-450) k/uL MPV Neutrophils % % Lymphocytes % % Monocytes % % Eosinophils % % Basophils % % Neutrophils # (1.3-7.7) k/uL Lymphocytes # (1.0-4.8) k/uL Monocytes # (0-1.0) k/uL Eosinophils # (0-0.7) k/uL Basophils # (0-0.2) k/uL PT (9.0-12.0) sec INR (<1.2) APTT (22.0-30.0) sec Sodium (137-145) mmol/L Potassium (3.5-5.1) mmol/L Chloride (98-107) mmol/L Carbon Dioxide (22-30) mmol/L Anion Gap mmol/L BUN (9-20) mg/dL Creatinine (0.66-1.25) mg/dL Est GFR (CKD-EPI)AfAm (>60 ml/min/1.73 sqM) Est GFR (CKD-EPI)NonAf (>60 ml/min/1.73 sqM) Glucose (74-99) mg/dL Calcium (8.4-10.2) mg/dL Total Bilirubin (0.2-1.3) mg/dL AST (17-59) U/L ALT (4-49) U/L Alkaline Phosphatase (38-126) U/L Ammonia <9 (<30) umol/L Troponin I <0.012 (0.000-0.034) ng/mL Total Protein (6.3-8.2) g/dL Albumin (3.5-5.0) g/dL Serum Alcohol mg/dL - Medical Decision Making Patient presents with lethargy and altered mental status. CT of the brain shows subacute hypodensity concerning for recent stroke. He has no neurological d eficits however. He does have possible pneumonia chest x-ray. He will be admitted to the hospital. Past Medical History Past Medical History: CVA/TIA, Diabetes Mellitus, Hypertension Additional Past Medical History / Comment(s): Pt recently admitted to [facility] on 02/20/20 with R intrinsic hand muscle weakness/possible L vertebral artery stenosis/thrombocytopenia. Other hx: Diet controlled diabetes, autism, intellectual impairment History of Any Multi-Drug Resistant Organisms: None Reported Past Surgical History: No Surgical Hx Reported Additional Past Surgical History / Comment(s): BROTHER STATED NO KNOWN SX Past Anesthesia/Blood Transfusion Reactions: Unable to Obtain Additional Past Anesthesia/Blood Transfusion Reaction / Comment(s): NEVER HAD ANY SX Past Psychological History: No Psychological Hx Reported Smoking Status: Never smoker Past Alcohol Use History: None Reported Past Drug Use History: None Reported - Past Family History Father Family Medical History: Cancer Additional Family Medical History / Comment(s): COLON CANCER Mother Family Medical History: Cancer, Diabetes Mellitus, Hypertension Additional Family Medical History / Comment(s): OBESITY, FROM METASTATIC KINDEY CANCER Course Vital Signs 07/31/21 18:06 Temperature 97.7 F Pulse Rate 60 Respiratory 16 Rate Blood Pressure 112/73 O2 Sat by Pulse 100 Oximetry Disposition Clinical Impression: Altered mental status Disposition: ADMITTED IP TO THIS HOSP Condition: Fair Is patient prescribed a controlled substance at d/c from ED?: No Referrals: Robles Valenzuela DO [Primary Care Provider] - 1-2 days
[2021-07-31] MEDS ORDERED: AZITHROMYCIN 500 MG in SODIUM CHLORIDE 0.9% 250 ML IVPB STA (20:53)
[2021-07-31] MEDS ORDERED: LORazepam 1 MG TAB PO PRN (21:03)
[2021-07-31] MEDS ORDERED: HYDROCORTISONE 1% CREAM 30 GM TUBE TOPICAL PRN (21:03)
[2021-07-31 21:54] LABS: Appearance,Urine Clear (Clear); Bilirubin,Urine Negative (Negative); Blood,Urine Negative (Negative); Color,Urine Light Yellow; Glucose,Urine (UA) Negative (Negative); Ketones,Urine Negative (Negative); Leukocyte Esterase,Urine Negative (Negative); Nitrite,Urine Negative (Negative); PH, Urine 5.5 (5.0-8.0); Protein,Urine Negative (Negative); Specific Gravity,Urine 1.022 (1.001-1.035); Urobilinogen,Urine <2.0 mg/dL (<2.0)
[2021-07-31 22:15] LABS: Amphetamine Screen,Urine Not Detected (NotDetected); Barbiturate Screen,Urine Detected (NotDetected); Benzodiazepines Screen,Urine Detected (NotDetected); Cocaine Screen,Urine Not Detected (NotDetected); Methadone Screen, Urine Not Detected (NotDetected); Opiate Screen,Urine Not Detected (NotDetected); Oxycodone Screen, Urine Not Detected (NotDetected); Phencyclidine Screen,Urine Not Detected (NotDetected); Tricyclic Antidepressant,Urine Detected (NotDetected); Urn Cannabinoid Scrn Not Detected (NotDetected)
[2021-07-31] MEDS ORDERED: ASPIRIN 81 MG PO STA (22:36)
[2021-08-01 06:06] LABS: Glucose,Whole Blood 85 mg/dL (75-99)
[2021-08-01] MEDS: BENZTROPINE MESYLATE 0.5 MG TAB PO SCH ×2 (08:45→16:47)
[2021-08-01] MEDS: CARBIDOPA-LEVODOPA 10-100 MG 1 EACH TAB PO SCH ×2 (08:46→16:47)
[2021-08-01] MEDS: OXYBUTYNIN CHLORIDE 5 MG TAB PO SCH ×2 (08:46→16:47)
[2021-08-01] MEDS: LORazepam 1 MG TAB PO SCH ×2 (08:46→16:47)
[2021-08-01] MEDS ORDERED: PREGABALIN 75 MG CAP PO SCH (09:00)
[2021-08-01] MEDS ORDERED: cloZAPine 100 MG TAB PO SCH (09:00)
[2021-08-01] MEDS ORDERED: CITALOPRAM HYDROBROMIDE 20 MG TAB PO SCH (09:00)
[2021-08-01] MEDS ORDERED: lisinopriL 10 MG TAB PO SCH (09:00)
[2021-08-01] MEDS ORDERED: ASPIRIN 81 MG PO SCH (09:00)
[2021-08-01] MEDS ORDERED: ARIPiprazole 15 MG TAB PO SCH (09:00)
[2021-08-01] MEDS ORDERED: CHOLECALCIFEROL 25 MCG (1000 IU) TABLET PO SCH (09:00)
[2021-08-01 12:09] LABS: Glucose,Whole Blood 135 mg/dL (75-99)
--- NOTE | 2021-08-01 14:14 | P.CNNES ---
History of Present Illness Consult date: 08/01/21 Requesting physician: Brad Sams Reason for Consult: Subacute stroke History of Present Illness: Patient is a 51-year-old male with history of autistic spectrum disorder, came to the hospital yesterday at 6 PM with some altered mental status, belly pain. Chest x-ray showed possibility of pneumonia. CT head reported as possibility of subacute hypodensity concerning for recent stroke. I reviewed the CT, and there is no evidence of subacute stroke. The area mentioned is probably a sulcus, or perhaps remote ischemia, no evidence of acute or subacute ischemia. Patient has no focal symptoms. History is limited because of patient's mental status related to autism. Patient at present wants to go home. Patient does have some echolalia. Patient denies any headache at this time. Does not offer any numbness tingling or weakness. Vital signs arrival blood pressure 112/73, pulse rate 60, temperature 97.7. Pat ient's blood test shows WBC 5.9 hemoglobin 12.2, platelets 144. PT/PTT normal, sodium 134 potassium 4.5, BUN 25, creatinine 0.99. Hepatic panel is normal, troponin negative. Ammonia <9. UA negative, urine drug screen positive for barbiturate, tricyclics and benzodiazepine. Blood alcohol level negative. Influenza screen negative. Coronavirus PCR negative. RSV PCR negative. Patient had some workup performed previously on 02/22/2020 with normal hemoglobin A1c 4.5, lipids with cholesterol 132 LDL 63 HDL [address] head reported as small subcortical hypodensity left parietal lobe. Correlate with patient's symptoms. This may be acute or subacute area of ischemia. Minimal periventricular white matter ischemic Change may be present. CT of abdomen and pelvis showed no acute abnormality. Cholelithiasis. Chest x- ray showed mild infiltrate at the right lower lobe. Correlate for atelectasis and pneumonia. Patient had a previous MRI of the brain 02/22/2020 shows no recent infarct. MRI of the cervical spine showed slight scoliotic curvature otherwise unremarkable study. Review of Systems Patient denies headache. ROS unobtainable: due to mental status Past Medical History Past Medical History: CVA/TIA, Diabetes Mellitus, Hypertension Additional Past Medical History / Comment(s): Pt recently admitted to [facility] on 02/20/20 with R intrinsic hand muscle weakness/possible L vertebral artery stenosis/thrombocytopenia. Other hx: Diet controlled diabetes, autism, intellectual impairment History of Any Multi-Drug Resistant Organisms: None Reported Past Surgical History: No Surgical Hx Reported Additional Past Surgical History / Comment(s): BROTHER STATED NO KNOWN SX Past Anesthesia/Blood Transfusion Reactions: Unable to Obtain Additional Past Anesthesia/Blood Transfusion Reaction / Comment(s): NEVER HAD ANY SX Past Psychological History: No Psychological Hx Reported Additional Psychological History / Comment(s): Pt resides at [facility]. He has autism and intellectual impairment. He likes to write-he likes 4 blank sheets of paper and a black pen, his favorite TV channel is 7. He likes to look through calenders and read the paper. He likes everything in 4s. He takes pills whole in applesauce. He can wash himself with direction and dress himself, he can tie his shoes. He likes dinner at 5-530. He needs everything to be cut into bite size pieces. He is contnent of urine and stool. He goes to bed about 8-830 and sleeps with a nightlight on. He likes to listen to the radio-[employer] or country music. Smoking Status: Never smoker Past Alcohol Use History: None Reported Past Drug Use History: None Reported - Past Family History Father Family Medical History: Cancer Additional Family Medical History / Comment(s): COLON CANCER Mother Family Medical History: Cancer, Diabetes Mellitus, Hypertension Additional Family Medical History / Comment(s): OBESITY, FROM METASTATIC KINDEY CANCER Medications and Allergies Home Medications Medication Instructions Recorded Confirmed Type ARIPiprazole 15 mg PO BID@0700,199907/29/18 07/31/21 History Benztropine Mesylate [Cogentin] 0.5 mg PO TID@0700,1200,199907/29/18 07/31/21 History Citalopram Hydrobromide [CeleXA] 40 mg PO DAILY@0700 07/29/18 07/31/21 History Enalapril [Vasotec] 5 mg PO DAILY@0700 07/29/18 07/31/21 History LORazepam [Ativan] 1 mg PO TID@0700,1200,199907/29/18 07/31/21 History Nystatin [Nystop] 1 applic TOPICAL DAILY PRN 07/29/18 07/31/21 History LORazepam [Ativan] 2 mg PO DAILY PRN 02/20/20 07/31/21 History cloZAPine [Clozaril] 100 mg PO BID@0700,1600 02/20/20 07/31/21 History Aspirin EC [Ecotrin Low Dose] 81 mg PO DAILY@0700 07/31/21 07/31/21 History Atorvastatin Calcium [Lipitor] 10 mg PO HS@199907/31/21 07/31/21 History Carbidopa-Levodopa 10-100 mg 1 tab PO TID@0700,1600,199907/31/21 07/31/21 History [Sinemet 10-100] Cholecalciferol [Vitamin D3 (25 50 mcg PO DAILY@0700 07/31/21 07/31/21 History Mcg = 1000 Iu)] Clindamycin Gel [Cleocin T 1% Gel] 1 applic TOPICAL HS@199907/31/21 07/31/21 History Hydrocortisone Cream 1 applic TOPICAL BID PRN 07/31/21 07/31/21 History [Hydrocortisone 2.5% Cream] Melatonin 10 mg PO HS@199907/31/21 07/31/21 History Oxybutynin Chloride [Ditropan] 5 mg PO TID@0700,1600,199907/31/21 07/31/21 History Pregabalin [Lyrica] 75 mg PO DAILY@0700 07/31/21 07/31/21 History Primidone [Mysoline] 50 mg PO HS@199907/31/21 07/31/21 History Allergies Allergy/AdvReac Type Severity Reaction Status Date / Time No Known Allergies Allergy Verified 07/31/21 20:49 Physical Examination - Vital Signs Vital Signs: Vital Signs Temp Pulse Pulse Resp BP BP Pulse Ox 08/01/21 04:00 82 15 142/77 99 08/01/21 00:34 97.4 F L 71 16 122/72 100 08/01/21 00:15 97.6 F 71 18 134/88 98 07/31/21 23:49 98.1 F 69 18 134/82 100 07/31/21 18:06 97.7 F 60 16 112/73 100 Intake and Output 07/31/21 08/01/21 08/01/21 22:59 06:59 14:59 Other: # Voids 1 Weight 79.379 kg 77.2 kg Patient is a middle aged male, in no acute distress. Patient appears somewhat anxious. Patient has autism. Patient wants to go home. He has some echolalia. Patient is alert awake. Patient knows it is July and the year is 2020. He knows his name, age 50 and the year he was born 1969. Patient knows that he lives in [place] in [place] his ZIP Code, but could not tell name of the current president. He could not tell what building he is in. He can name objects like pencil and glasses. Mild slurring, which likely is chronic/baseline. Attention, concentration and fund of knowledge is quite limited. On cranial examination, pupils are round and reacting to light, visual barkley are full on confrontation (though was unreliable exam), extraocular muscles are intact with no nystagmus. Face is symmetric, tongue protrudes to the midline. Palatal elevation and sensation normal, hearing and shoulder shrug normal, facial sensation normal. On muscle strength testing, patient did not cooperate well with examination. His outpatient interviewing clerk is equal. His biceps appears fairly equal. Again patient did not report any effort. His ankles are normal. Patient lift his legs up equally on both sides, with no focality. Deep tendon reflexes are 2 in bilateral biceps and brachioradialis, 2 at the knees and 1 ankles and plantars downgoing bilaterally. Sensory to touch is equal. Cerebellar function showed no ataxia for [id number] testing. Tone and bulk of muscles normal. Gait not checked. On general examination, there is no carotid bruit or murmur, S1-S2 audible. Abdomen is soft nontender. Chest is clear. Peripheral pulses are present. No edema. Results - Laboratory Findings CBC and BMP: 07/31/21 19:05 07/31/21 19:05 Abnormal Lab Findings: Abnormal Labs 07/31/21 07/31/21 07/31/21 19:05 19:05 19:05 RBC 4.25 L Hgb 12.2 L Hct 35.9 L Plt Count 144 L Sodium 134 L BUN 25 H Ur Barbiturates Screen Detected H U Tricyclic Antidepress Detected H U Benzodiazepines Scrn Detected H Assessment and Plan Assessment: * No clinical evidence of stroke or TIA. The abnormality reported by radiologist on the CT head is likely related to a deep sulcus, no evidence of recent stroke. * Autism Plan: * Patient's computed tomography scan of the head does not show any signs of a stroke. The abnormality reported on the CT head as ischemic stroke is just a normal sulcus. Reviewed it with another neuroradiologist, who also agreed. Clinically patient has no symptoms whatsoever. * Patient recently had hemoglobin A1c checked on 02/22/2020, was normal 4.5, and well controlled lipids with cholesterol 132 LDL 63 HDL 55 and triglycerides 68. * Continue aspirin 81 mg daily. * No other workup indicated. * Neurology will sign off.
[2021-08-01 15:20] VITALS: RESP 17
[2021-08-01 15:51] VITALS: BP 129/70; PULSE 74; TEMP 98.5
[2021-08-01] MEDS ORDERED: CLINDAMYCIN TOPICAL SCH (20:00)
[2021-08-01] MEDS ORDERED: MELATONIN 5 MG TABLET PO SCH (21:00)
[2021-08-01] MEDS ORDERED: PRIMIDONE 50 MG TAB PO SCH (21:00)
[2021-08-01] MEDS ORDERED: ATORVASTATIN 10 MG TAB PO SCH (21:00)
--- NOTE | 2021-08-01 23:40 | P.HPIM ---
History of Present Illness H&P Date: 08/01/21 Chief Complaint: Altered mental status Patient is a 51-year-old male with known history of autism and intellectual impairment currently in a alf, history of CVA, diabetes, hypertension Was sent to ER due to altered mental status. Patient does have history of TIA in t he past. Also CVA with no residual weakness. Patient has been afebrile. No complaints of chest pain or shortness breath. No nausea vomiting or diarrhea. Patient was complaining of abdominal pain on admission. On admission chest x-ray showed mild infiltrate at the right lower lobe. Correlate for atelectasis or pneumonia. CT head showed small subcortical hypodensity left parietal lobe. Correlate with patient's symptoms. This may be acute or subacute area of ischemia. Minimal periventricular white matter ischemic type change may be present. CT of the abdomen pelvis was done showed no acute abnormality of the CT abdomen pelvis. Cholelithiasis. Mild cortical retention. Laboratory showed WBC 5.9 hemoglobin 12.1 platelets 144 Sodium 134 potassium 4.5 chloride 100 BUN 25 and creatinine 0.99 Liver enzymes are not elevated Troponin x3 - Ammonia less than 9 Urinalysis negative for infection UDS is positive for tricyclic antidepressants, barbiturates and benzodiazepines SARS COVID-19 and influenza PCR not detected. Review of Systems Complete review of systems could not be obtained except as per HPI. Past Medical History Past Medical History: CVA/TIA, Diabetes Mellitus, Hypertension Additional Past Medical History / Comment(s): Pt recently admitted to [facility] on 02/20/20 with R intrinsic hand muscle weakness/possible L vertebral artery stenosis/thrombocytopenia. Other hx: Diet controlled diabetes, autism, intellectual impairment History of Any Multi-Drug Resistant Organisms: None Reported Past Surgical History: No Surgical Hx Reported Additional Past Surgical History / Comment(s): BROTHER STATED NO KNOWN SX Past Anesthesia/Blood Transfusion Reactions: Unable to Obtain Additional Past Anesthesia/Blood Transfusion Reaction / Comment(s): NEVER HAD ANY SX Past Psychological History: No Psychological Hx Reported Additional Psychological History / Comment(s): Pt resides at [facility]. He has autism and intellectual impairment. He likes to write-he likes 4 blank sheets of paper and a black pen, his favorite TV channel is 7. He likes to look through calenders and read the paper. He likes everything in 4s. He takes pills whole in applesauce. He can wash himself with direction and dress himself, he can tie his shoes. He likes dinner at 5-530. He needs everything to be cut into bite size pieces. He is contnent of urine and stool. He goes to bed about 8-830 and sleeps with a nightlight on. He likes to listen to the radio-sports or country music. Smoking Status: Never smoker Past Alcohol Use History: None Reported Past Drug Use History: None Reported - Past Family History Father Family Medical History: Cancer Additional Family Medical History / Comment(s): COLON CANCER Mother Family Medical History: Cancer, Diabetes Mellitus, Hypertension Additional Family Medical History / Comment(s): OBESITY, FROM METASTATIC KINDEY CANCER Medications and Allergies Home Medications Medication Instructions Recorded Confirmed Type ARIPiprazole 15 mg PO BID@0700,199907/29/18 07/31/21 History Benztropine Mesylate [Cogentin] 0.5 mg PO TID@0700,1199,199907/29/18 07/31/21 History Citalopram Hydrobromide [CeleXA] 40 mg PO DAILY@0700 07/29/18 07/31/21 History Enalapril [Vasotec] 5 mg PO DAILY@0700 07/29/18 07/31/21 History LORazepam [Ativan] 1 mg PO TID@0700,1200,199907/29/18 07/31/21 History Nystatin [Nystop] 1 applic TOPICAL DAILY PRN 07/29/18 07/31/21 History LORazepam [Ativan] 2 mg PO DAILY PRN 02/20/20 07/31/21 History cloZAPine [Clozaril] 100 mg PO BID@0700,1600 02/20/20 07/31/21 History Aspirin EC [Ecotrin Low Dose] 81 mg PO DAILY@69907/31/21 07/31/21 History Atorvastatin Calcium [Lipitor] 10 mg PO HS@199907/31/21 07/31/21 History Carbidopa-Levodopa 10-100 mg 1 tab PO TID@0700,1600,199907/31/21 07/31/21 History [Sinemet 10-100 mg] Cholecalciferol [Vitamin D3 (25 50 mcg PO DAILY@0700 07/31/21 07/31/21 History Mcg = 1000 Iu)] Clindamycin Gel [Cleocin T 1% Gel] 1 applic TOPICAL HS@199907/31/21 07/31/21 History Hydrocortisone Cream 1 applic TOPICAL BID PRN 07/31/21 07/31/21 History [Hydrocortisone 2.5% Cream] Melatonin 10 mg PO HS@199907/31/21 07/31/21 History Oxybutynin Chloride [Ditropan] 5 mg PO TID@0700,1599,199907/31/21 07/31/21 History Pregabalin [Lyrica] 75 mg PO DAILY@0700 07/31/21 07/31/21 History Primidone [Mysoline] 50 mg PO HS@199907/31/21 07/31/21 History Allergies Allergy/AdvReac Type Severity Reaction Status Date / Time No Known Allergies Allergy Verified 07/31/21 20:49 Physical Exam Vitals: Vital Signs Temp Pulse Pulse Resp BP BP Pulse Ox 08/01/21 08:00 98.1 F 69 18 123/76 98 08/01/21 04:00 82 15 142/77 99 08/01/21 00:34 97.4 F L 71 16 122/72 100 08/01/21 00:15 97.6 F 71 18 134/88 98 07/31/21 23:49 98.1 F 69 18 134/82 100 07/31/21 18:06 97.7 F 60 16 112/73 100 Intake and Output 07/31/21 08/01/21 08/01/21 22:59 06:59 14:59 Other: # Voids 1 Weight 79.379 kg 77.2 kg PHYSICAL EXAMINATION: Patient is lying in the bed comfortably, no acute distress, awake alert and oriented.. HEENT: Normocephalic. Neck is supple. Pupils reactive. Nostrils clear. Oral cavity is moist. Neck reveals no JVD, carotid bruits, or thyromegaly. CHEST EXAMINATION: Trachea is central. Symmetrical expansion. Lung barkley clear to auscultation and percussion. CARDIAC: Normal S1, S2 with no gallops. No murmurs ABDOMEN: Soft. Bowel sounds normal. No organomegaly. No abdominal bruits. Extremities: reveal no edema. No clubbing or cyanosis Neurologically awake, alert, oriented x1-2 with well-coordinated movements. No focal deficits noted Skin: No rash or skin lesions. Psychiatric: Cooperative. Musculoskeletal: No joint swelling or deformity. Normal range of motion. Results CBC & Chem 7: 07/31/21 19:05 07/31/21 19:05 Labs: Abnormal Lab Results - Last 24 Hours (Table) 07/31/21 07/31/21 07/31/21 Range/Units 19:05 19:05 19:05 RBC 4.25 L (4.30-5.90) m/uL Hgb 12.2 L (13.0-17.5) gm/dL Hct 35.9 L (39.0-53.0) % Plt Count 144 L (150-450) k/uL Sodium 134 L (137-145) mmol/L BUN 25 H (9-20) mg/dL Ur Barbiturates Screen Detected H (NotDetected) U Tricyclic Antidepress Detected H (NotDetected) U Benzodiazepines Scrn Detected H (NotDetected) Thrombosis Risk Factor Assmnt - DVT/VTE Prophylaxis DVT/VTE Prophylaxis: Pharmacologic Prophylaxis ordered - Choose All That Apply Any of the Below Risk Factors Present?: Yes Each Factor Represents 1 point: Obesity (BMI >25) Each Risk Factor Represents 2 Points: Age 61-74 years, Malignancy Thrombosis Risk Factor Assessment Total Risk Factor Score: 5 Thrombosis Risk Factor Assessment Level: High Risk Assessment and Plan Assessment: Altered mental status possible toxic encephalopathy. Resolved now. No evidence of acute CVA/TIA. CT head abnormality likely due to deep sulcus. No evidence of recent CVA as per neurology.. Autism and intellectual impairment Diabetes type 2 diet controlled. Hypertension DVT prophylaxis. Plan: Patient will be continued on telemetry monitoring. CT head reported as ischemic stroke is most likely normal sulcus. Neurology has seen the patient. Lipid panel showed LDL 63 Continue with aspirin 81 mg daily and no further work-up recommended. Continue with home medications and IV hydration. Patient is tolerating oral diet now. Symptomatically improved. Would like to be discharged to alf. Time with Patient: Greater than 30
--- NOTE | 2021-08-01 23:44 | P.DS ---
Providers Date of admission: 07/31/21 20:51 Expected date of discharge: 08/01/21 Attending physician: Merline Lopez Consults: 07/31/21 20:51 Consult Physician Routine Consulting Provider: Lamine Rose Consult Reason/Comments: subacute stroke Do you want consulting provider notified?: Yes Primary care physician: [facility] Hospital Course: Discharge diagnosis Altered mental status possible toxic encephalopathy. Resolved now. No evidence of acute CVA/TIA. CT head abnormality likely due to deep sulcus. No evidence of recent CVA as per neurology.. Dehydration volume depletion. Autism and intellectual impairment Diabetes type 2 diet controlled. Hypertension DVT prophylaxis. Hospital course Patient is a 51-year-old male with known history of autism and intellectual impairment currently in a correction, history of CVA, diabetes, hypertension Was sent to ER due to altered mental status. Patient does have history of TIA in the past. Also CVA with no residual weakness. Patient has been afebrile. No complaints of chest pain or shortness breath. No nausea vomiting or diarrhea. Patient was complaining of abdominal pain on admission. On admission chest x-ray showed mild infiltrate at the right lower lobe. Correlate for atelectasis or pneumonia. CT head showed small subcortical hypodensity left parietal lobe. Correlate with patient's symptoms. This may be acute or subacute area of ischemia. Minimal periventricular white matter ischemic type change may be present. CT of the abdomen pelvis was done showed no acute abnormality of the CT abdomen pelvis. Cholelithiasis. Mild cortical retention. Laboratory showed WBC 5.9 hemoglobin 12.1 platelets 144 Sodium 134 potassium 4.5 chloride 100 BUN 25 and creatinine 0.99 Liver enzymes are not elevated Troponin x3 - Ammonia less than 9 Urinalysis negative for infection UDS is positive for tricyclic antidepressants, barbiturates and benzodiazepines SARS COVID-19 and influenza PCR not detected. Patient was continued on telemetry monitoring. CT head reported as ischemic stroke is most likely normal sulcus. Neurology has seen the patient. Lipid panel showed LDL 63 Continue with aspirin 81 mg daily and no further work-up recommended. Continue with home medications and IV hydration. Patient is tolerating oral diet now. Symptomatically improved. Would like to be discharged to correction. Discharge physical examination was done and vitals reviewed. Patient Condition at Discharge: Fair Plan - Discharge Summary Discharge Rx Participant: No New Discharge Prescriptions: Continue ARIPiprazole 15 mg PO BID@0700,1999 Nystatin [Nystop] 1 applic TOPICAL DAILY PRN PRN Reason: TO SKIN FOLDS Enalapril [Vasotec] 5 mg PO DAILY@0700 Citalopram Hydrobromide [CeleXA] 40 mg PO DAILY@0700 LORazepam [Ativan] 1 mg PO TID@0700,1199,1999 Benztropine Mesylate [Cogentin] 0.5 mg PO TID@0700,1199,1999 cloZAPine [Clozaril] 100 mg PO BID@0700,1600 LORazepam [Ativan] 2 mg PO DAILY PRN PRN Reason: Anxiety Hydrocortisone Cream [Hydrocortisone 2.5% Cream] 1 applic TOPICAL BID PRN PRN Reason: face Melatonin 10 mg PO HS@1999 Atorvastatin Calcium [Lipitor] 10 mg PO HS@1999 Carbidopa-Levodopa 10-100 mg [Sinemet 10-100 mg] 1 tab PO TID@0700,1599,1999 Oxybutynin Chloride [Ditropan] 5 mg PO TID@0700,1599,1999 Aspirin EC [Ecotrin Low Dose] 81 mg PO DAILY@0700 Pregabalin [Lyrica] 75 mg PO DAILY@07 Clindamycin Gel [Cleocin T 1% Gel] 1 applic TOPICAL HS@1999 Cholecalciferol [Vitamin D3 (25 Mcg = 1000 Iu)] 50 mcg PO DAILY@0700 Primidone [Mysoline] 50 mg PO HS@1999 Discharge Medication List ARIPiprazole 15 mg PO BID@0700,199907/29/18 [History] Benztropine Mesylate [Cogentin] 0.5 mg PO TID@0700,1199,199907/29/18 [History] Citalopram Hydrobromide [CeleXA] 40 mg PO DAILY@0700 07/29/18 [History] Enalapril [Vasotec] 5 mg PO DAILY@0700 07/29/18 [History] LORazepam [Ativan] 1 mg PO TID@0700,1199,199907/29/18 [History] Nystatin [Nystop] 1 applic TOPICAL DAILY PRN 07/29/18 [History] LORazepam [Ativan] 2 mg PO DAILY PRN 02/20/20 [History] cloZAPine [Clozaril] 100 mg PO BID@0700,1600 02/20/20 [History] Aspirin EC [Ecotrin Low Dose] 81 mg PO DAILY@0700 07/31/21 [History] Atorvastatin Calcium [Lipitor] 10 mg PO HS@199907/31/21 [History] Carbidopa-Levodopa 10-100 mg [Sinemet 10-100 mg] 1 tab PO TID@0700,1600,199907/31/21 [History] Cholecalciferol [Vitamin D3 (25 Mcg = 1000 Iu)] 50 mcg PO DAILY@0700 07/31/21 [History] Clindamycin Gel [Cleocin T 1% Gel] 1 applic TOPICAL HS@199907/31/21 [History] Hydrocortisone Cream [Hydrocortisone 2.5% Cream] 1 applic TOPICAL BID PRN 07/31/21 [History] Melatonin 10 mg PO HS@199907/31/21 [History] Oxybutynin Chloride [Ditropan] 5 mg PO TID@0700,1600,199907/31/21 [History] Pregabalin [Lyrica] 75 mg PO DAILY@0700 07/31/21 [History] Primidone [Mysoline] 50 mg PO HS@199907/31/21 [History] Follow up Appointment(s)/Referral(s): Robles Valenzuela DO [Primary Care Provider] - 1-2 days Patient Instructions/Handouts: Altered Mental Status (ED), Stroke (DC) Discharge Disposition: TRANSFER TO SNF/ECF
--- NOTE | 2021-08-12 12:31 | CDI ---
Documentation Clarification Form Date: 08/12/2021 From: Yelena Thomas RN, CCDS Admit Date: 07/31/2021 08:51:00 PM Patient Name: Amanuel Monk Visit Number: [id number] Discharge Date: 08/01/2021 04:58:00 PM ATTENTION: The Clinical Documentation Specialists (CDI) and [facility] Coding Staff appreciate your assistance in clarifying documentation. Please respond to the clarification below the line at the bottom and electronically sign. The CDI & [facility] Coding staff will review the response and follow-up if needed. Please note: Queries are made part of the Legal Health Record. If you have any questions, please contact the author of this message via ITS. Dr. Beena Koch Your patient has the documented symptom of toxic encephalopathy in your H/P and discharge summary. Additional clarification regarding the etiology/cause of this symptom is requested. Homes meds: Cogentin, Celexa, Ativan, Clozaril 08/01 Neurology consult: CT head as ischemic stroke is just normal sulcus. History/Risk Factors: CVA, TIA, Diabetes Mellitus, Hypertension, Autism, Intellectual impairment Clinical Indicators: 51-year-old present with altered mental status. He has pass medical history of autism and intellectual impairment and history of CVA. He was lethargic, with altered mental status per ED assessment 07/31 Labs: WBC 5.9, UDS: Positive for tricyclic antidepressants, barbiturates and benzodiazepines 07/31 Vital signs: 112/73 60 16 97.7 07/31 Chest X Ray: Mild infiltrate at the right lower lobe. Correlate for atelectasis and pneumonia 07/31 CT Brain small subcortical hypodensity left parietal lobe. CT Abdomen/Pelvis: No ac abnormality. Cholelithiasis. Mild cortical retention Treatment: Telemetry monitoring Asa 81 MG PO daily Neurological assessment per protocol Please clarify the etiology of the toxic encephalopathy; [ ] Toxic Encephalopathy due to drugs, correct substance properly administered (therapeutic use) [ ] Toxic Encephalopathy due to drugs, Poisoning (e.g., accidental [ ] Toxic Encephalopathy due to drugs, Unspecified (coded as therapeutic use) [ ] Other condition (please specify) [ ] Unable to determine (Template Last Revised: October 2020) Toxic Encephalopathy due to drugs, correct substance properly administered ( MTDD
== END 2021-08-01 16:58 | DRG 92 ==
LOC: EC 17:58 → 3SCARD 20:51
PROVIDERS: ADMIT Hospitalist; ATTEND Hospitalist
DX: G92.8 Other toxic encephalopathy (principal); I67.82 Cerebral ischemia; F84.0 Autistic disorder; G93.89 Other specified disorders of brain; E11.9 Type 2 diabetes mellitus without complications; E86.0 Dehydration; I10 Essential (primary) hypertension; K80.20 Calculus of gallbladder without cholecystitis without obstruction; Z79.82 Long term (current) use of aspirin; Z79.899 Other long term (current) drug therapy; Z80.0 Family history of malignant neoplasm of digestive organs; Z82.49 Family history of ischemic heart disease and other diseases of the circulatory system; Z83.3 Family history of diabetes mellitus; Z86.73 Personal history of transient ischemic attack (TIA), and cerebral infarction without residual deficits; M62.81 Muscle weakness (generalized); E86.9 Volume depletion, unspecified
CPT/HCPCS: 36415; 70450; 71046; 74177; 80053; 80306; 80320; 81003; 82140; 84484; 85025; 85610; 85730; 87040; 87636; 93005; 96365; 96375; 99285

== ENCOUNTER 2021-10-02 11:47 | Emergency (ER) | payer MEDICARE, OTHER ==
[2021-10-02] MEDS ORDERED: DEXTROSE 50% SYRINGE 50 ML IVP STA (11:49)
[2021-10-02 11:50] LABS: Glucose,Whole Blood 46 mg/dL (75-99)
[2021-10-02 12:00] VITALS: RESP 18; TEMP 97.7
[2021-10-02 12:09] LABS: Glucose,Whole Blood 126 mg/dL (75-99)
[2021-10-02 12:22] LABS: Basophils % (A) 0 %; Eosinophils % (A) 0 %; HCT 29.1 % (39.0-53.0); Hypochromasia Slight; Lymphocytes # (A) 0.7 k/uL (1.0-4.8); Lymphocytes % (A) 10 %; MCH 27.5 pg (25.0-35.0); MCHC 32.5 g/dL (31.0-37.0); MCV 84.7 fL (80.0-100.0); Mean Platelet Volume 8.8; Monocytes # (A) 0.3 k/uL (0-1.0); Monocytes % (A) 4 %; Neutrophils # (A) 6.1 k/uL (1.3-7.7); Neutrophils % (A) 85 %; Platelet Count 125 k/uL (150-450); RBC 3.43 m/uL (4.30-5.90); RDW 13.4 % (11.5-15.5); WBC 7.2 k/uL (3.8-10.6)
[2021-10-02 12:33] LABS: ALT 12 U/L (4-49); AST 24 U/L (17-59); African American GFR (CKD) >90 (>60 ml/min/1.73 sqM); Albumin 3.2 g/dL (3.5-5.0); Alkaline Phosphatase 62 U/L (38-126); Anion Gap 2 mmol/L; Blood Urea Nitrogen 21 mg/dL (9-20); Calcium 8.4 mg/dL (8.4-10.2); Carbon Dioxide 29 mmol/L (22-30); Chloride 106 mmol/L (98-107); Glucose 232 mg/dL (74-99); Non-African American GFR(CKD) 85 (>60 ml/min/1.73 sqM); Sodium 137 mmol/L (137-145); Total Bilirubin 0.4 mg/dL (0.2-1.3); Total Protein 5.7 g/dL (6.3-8.2)
[2021-10-02 12:36] LABS: INR 1.1 (<1.2); Partial Thromboplastin Time 23.7 sec (22.0-30.0); Prothrombin Time 11.7 sec (9.0-12.0)
[2021-10-02 12:39] LABS: HGB 9.4 gm/dL (13.0-17.5)
[2021-10-02] MEDS ORDERED: SODIUM CHLORIDE 0.9% 500 ML 500 ML IV ONE (12:40)
--- NOTE | 2021-10-02 12:40 | ED ---
General Adult HPI - General Chief complaint: Dizziness Stated complaint: syncope Time Seen by Provider: 10/02/21 11:51 Source: patient, EMS, RN notes reviewed, old records reviewed Mode of arrival: EMS Limitations: altered mental status, physical limitation - History of Present Illness Initial comments: 51-year-old male presents with dizziness, hypoglycemia. Patient was found to be hypoglycemic at 45. He is autistic currently living in skilled nursing. There's been no reported fever or vomiting. The patient does not endorse any complaints. By review of the medical record it does not appear that he is on insulin or oral hypoglycemic medication. - Related Data Home Medications Medication Instructions Recorded Confirmed ARIPiprazole 15 mg PO BID@0700,199907/29/18 10/02/21 Benztropine Mesylate [Cogentin] 0.5 mg PO TID@0700,1200,199907/29/18 10/02/21 Citalopram Hydrobromide [CeleXA] 40 mg PO DAILY@0700 07/29/18 10/02/21 Enalapril [Vasotec] 5 mg PO DAILY@0700 07/29/18 10/02/21 LORazepam [Ativan] 1 mg PO TID@0700,1200,199907/29/18 10/02/21 cloZAPine [Clozaril] 100 mg PO BID@0700,1600 02/20/20 10/02/21 Aspirin EC [Ecotrin Low Dose] 81 mg PO DAILY@0700 07/31/21 10/02/21 Atorvastatin Calcium [Lipitor] 10 mg PO HS@199907/31/21 10/02/21 Carbidopa-Levodopa 10-100 mg 1 tab PO TID@0700,1599,199907/31/21 10/02/21 [Sinemet 10-100 mg] Melatonin 10 mg PO HS@199907/31/21 10/02/21 Oxybutynin Chloride [Ditropan] 5 mg PO TID@0700,1600,199907/31/21 10/02/21 Pregabalin [Lyrica] 75 mg PO DAILY@0700 07/31/21 10/02/21 Primidone [Mysoline] 50 mg PO HS@199907/31/21 10/02/21 Amoxicillin 500 mg PO BID@0700,199910/02/21 10/02/21 Clarithromycin [Biaxin] 500 mg PO BID@0700,2000 10/02/21 10/02/21 Ergocalciferol [Vitamin D2 (1250 1,250 mcg PO QMONTHLY 10/02/21 10/02/21 Mcg = 13530 Iu)] Omeprazole [PriLOSEC] 20 mg PO BID@0700,1600 10/02/21 10/02/21 QUEtiapine [SEROquel] 25 mg PO DAILY@0700 10/02/21 10/02/21 Allergies Allergy/AdvReac Type Severity Reaction Status Date / Time No Known Allergies Allergy Verified 10/02/21 12:54 Review of Systems ROS Statement: Those systems with pertinent positive or pertinent negative responses have been documented in the HPI. ROS Other: All systems not noted in ROS Statement are negative. Past Medical History Past Medical History: CVA/TIA, Diabetes Mellitus, Hypertension Additional Past Medical History / Comment(s): Pt recently admitted to [facility] on 02/20/20 with R intrinsic hand muscle weakness/possible L vertebral artery stenosis/thrombocytopenia. Other hx: Diet controlled diabetes, autism, intellectual impairment History of Any Multi-Drug Resistant Organisms: None Reported Past Surgical History: No Surgical Hx Reported Additional Past Surgical History / Comment(s): BROTHER STATED NO KNOWN SX Past Anesthesia/Blood Transfusion Reactions: Unable to Obtain Additional Past Anesthesia/Blood Transfusion Reaction / Comment(s): NEVER HAD ANY SX Past Psychological History: No Psychological Hx Reported Smoking Status: Never smoker Past Alcohol Use History: None Reported Past Drug Use History: None Reported - Past Family History Father Family Medical History: Cancer Additional Family Medical History / Comment(s): COLON CANCER Mother Family Medical History: Cancer, Diabetes Mellitus, Hypertension Additional Family Medical History / Comment(s): OBESITY, FROM METASTATIC KINDEY CANCER General Exam Limitations: altered mental status, physical limitation General appearance: alert, in no apparent distress Head exam: Present: atraumatic, normocephalic Eye exam: Present: normal appearance, PERRL ENT exam: Present: normal exam Neck exam: Present: normal inspection Respiratory exam: Present: normal lung sounds bilaterally. Absent: respiratory distress, wheezes Cardiovascular Exam: Present: regular rate, normal rhythm GI/Abdominal exam: Present: soft. Absent: distended, tenderness, guarding, rebound Extremities exam: Present: normal inspection, normal capillary refill. Absent: pedal edema Neurological exam: Present: alert, CN II-XII intact. Absent: oriented X3, motor sensory deficit Psychiatric exam: Present: normal affect, normal mood Skin exam: Present: warm, dry, intact. Absent: cyanosis, diaphoretic Course Vital Signs 10/02/21 10/02/21 10/02/21 11:49 12:06 13:53 Temperature 97.7 F Pulse Rate 63 60 70 Respiratory 18 18 18 Rate Blood Pressure 95/62 108/63 124/67 O2 Sat by Pulse 99 99 99 Oximetry EKG Findings - EKG Comments: EKG Findings:: EKG: Sinus bradycardia, rate 59, LA interval 172, QRS duration 84, QTC [address] segment elevation. Medical Decision Making - Medical Decision Making 51-year-old male with hypoglycemia. This is corrected with dextrose and oral feeding. Patient did have a abnormal hemoglobin on first CBC. This is repeated and is closer to the patient's baseline. Patient is hemodynamically stable in the department is been eating and drinking. He has no pain complaints. This time I feel he is stable for discharge with return parameters. Any worsening or changing symptoms should prompt return to the emergency department. - Lab Data Result diagrams: 10/02/21 13:27 10/02/21 12:10 Lab Results 10/02/21 10/02/21 10/02/21 Range/Units 11:49 12:07 12:10 WBC 7.2 (3.8-10.6) k/uL RBC 3.43 L (4.30-5.90) m/uL Hgb 9.4 L D (13.0-17.5) gm/dL Hct 29.1 L (39.0-53.0) % MCV 84.7 (80.0-100.0) fL MCH 27.5 (25.0-35.0) pg MCHC 32.5 (31.0-37.0) g/dL RDW 13.4 (11.5-15.5) % Plt Count 125 L (150-450) k/uL MPV 8.8 Neutrophils % 85 % Lymphocytes % 10 % Monocytes % 4 % Eosinophils % 0 % Basophils % 0 % Neutrophils # 6.1 (1.3-7.7) k/uL Lymphocytes # 0.7 L (1.0-4.8) k/uL Monocytes # 0.3 (0-1.0) k/uL Eosinophils # 0.0 (0-0.7) k/uL Basophils # 0.0 (0-0.2) k/uL Hypochromasia Slight PT (9.0-12.0) sec INR (<1.2) APTT (22.0-30.0) sec Sodium (137-145) mmol/L Potassium (3.5-5.1) mmol/L Chloride (98-107) mmol/L Carbon Dioxide (22-30) mmol/L Anion Gap mmol/L BUN (9-20) mg/dL Creatinine (0.66-1.25) mg/dL Est GFR (CKD-EPI)AfAm (>60 ml/min/1.73 sqM) Est GFR (CKD-EPI)NonAf (>60 ml/min/1.73 sqM) Glucose (74-99) mg/dL POC Glucose (mg/dL) 46 L 126 H (75-99) mg/dL POC Glu Javascript Web Developer Silvana Alomnte Andrew Plasma Lactic Acid [place] (0.7-2.0) mmol/L Calcium (8.4-10.2) mg/dL Magnesium (1.6-2.3) mg/dL Total Bilirubin (0.2-1.3) mg/dL AST (17-59) U/L ALT (4-49) U/L Alkaline Phosphatase (38-126) U/L Total Protein (6.3-8.2) g/dL Albumin (3.5-5.0) g/dL Urine Color Urine Appearance (Clear) Urine pH (5.0-8.0) Ur Specific [place] (1.001-1.035) Urine Protein (Negative) Urine Glucose (UA) (Negative) Urine Ketones (Negative) Urine Blood (Negative) Urine Nitrite (Negative) Urine Bilirubin (Negative) Urine Urobilinogen (<2.0) mg/dL Ur Leukocyte Esterase (Negative) Urine RBC (0-5) /hpf Urine WBC (0-5) /hpf Hyaline Casts (0-2) /lpf Urine Mucus (None) /hpf 10/02/21 10/02/21 10/02/21 Range/Units 12:10 12:10 12:10 WBC (3.8-10.6) k/uL RBC (4.30-5.90) m/uL Hgb (13.0-17.5) gm/dL Hct (39.0-53.0) % MCV (80.0-100.0) fL MCH (25.0-35.0) pg MCHC (31.0-37.0) g/dL RDW (11.5-15.5) % Plt Count (150-450) k/uL MPV Neutrophils % % Lymphocytes % % Monocytes % % Eosinophils % % Basophils % % Neutrophils # (1.3-7.7) k/uL Lymphocytes # (1.0-4.8) k/uL Monocytes # (0-1.0) k/uL Eosinophils # (0-0.7) k/uL Basophils # (0-0.2) k/uL Hypochromasia PT 11.7 (9.0-12.0) sec INR 1.1 (<1.2) APTT 23.7 (22.0-30.0) sec Sodium 137 (137-145) mmol/L Potassium 4.0 (3.5-5.1) mmol/L Chloride 106 (98-107) mmol/L Carbon Dioxide 29 (22-30) mmol/L Anion Gap 2 mmol/L BUN 21 H (9-20) mg/dL Creatinine 1.01 (0.66-1.25) mg/dL Est GFR (CKD-EPI)AfAm >90 (>60 ml/min/1.73 sqM) Est GFR (CKD-EPI)NonAf 85 (>60 ml/min/1.73 sqM) Glucose 232 H (74-99) mg/dL POC Glucose (mg/dL) (75-99) mg/dL POC Glu Javascript Web Developer ID Plasma Lactic Acid [place] (0.7-2.0) mmol/L Calcium 8.4 (8.4-10.2) mg/dL Magnesium 2.0 (1.6-2.3) mg/dL Total Bilirubin 0.4 (0.2-1.3) mg/dL AST 24 (17-59) U/L ALT 12 (4-49) U/L Alkaline Phosphatase 62 (38-126) U/L Total Protein 5.7 L (6.3-8.2) g/dL Albumin 3.2 L (3.5-5.0) g/dL Urine Color Yellow Urine Appearance Clear (Clear) Urine pH 6.5 (5.0-8.0) Ur Specific [place] 1.018 (1.001-1.035) Urine Protein 1+ H (Negative) Urine Glucose (UA) 2+ H (Negative) Urine Ketones Negative (Negative) Urine Blood Negative (Negative) Urine Nitrite Negative (Negative) Urine Bilirubin Negative (Negative) Urine Urobilinogen 2.0 (<2.0) mg/dL Ur Leukocyte Esterase Negative (Negative) Urine RBC <1 (0-5) /hpf Urine WBC 2 (0-5) /hpf Hyaline Casts 26 H (0-2) /lpf Urine Mucus Occasional H (None) /hpf 10/02/21 10/02/21 Range/Units 12:10 13:27 WBC 13.4 H (3.8-10.6) k/uL RBC 4.06 L (4.30-5.90) m/uL Hgb 10.6 L (13.0-17.5) gm/dL Hct 34.2 L (39.0-53.0) % MCV 84.3 (80.0-100.0) fL MCH 26.2 (25.0-35.0) pg MCHC 31.1 (31.0-37.0) g/dL RDW 13.7 (11.5-15.5) % Plt Count 161 (150-450) k/uL MPV 9.3 Neutrophils % 91 % Lymphocytes % 6 % Monocytes % 3 % Eosinophils % 0 % Basophils % 0 % Neutrophils # 12.2 H (1.3-7.7) k/uL Lymphocytes # 0.7 L (1.0-4.8) k/uL Monocytes # 0.4 (0-1.0) k/uL Eosinophils # 0.0 (0-0.7) k/uL Basophils # 0.0 (0-0.2) k/uL Hypochromasia Moderate PT (9.0-12.0) sec INR (<1.2) APTT (22.0-30.0) sec Sodium (137-145) mmol/L Potassium (3.5-5.1) mmol/L Chloride (98-107) mmol/L Carbon Dioxide (22-30) mmol/L Anion Gap mmol/L BUN (9-20) mg/dL Creatinine (0.66-1.25) mg/dL Est GFR (CKD-EPI)AfAm (>60 ml/min/1.73 sqM) Est GFR (CKD-EPI)NonAf (>60 ml/min/1.73 sqM) Glucose (74-99) mg/dL POC Glucose (mg/dL) (75-99) mg/dL POC Glu Javascript Web Developer ID Plasma Lactic Acid [place] 0.8 (0.7-2.0) mmol/L Calcium (8.4-10.2) mg/dL Magnesium (1.6-2.3) mg/dL Total Bilirubin (0.2-1.3) mg/dL AST (17-59) U/L ALT (4-49) U/L Alkaline Phosphatase (38-126) U/L Total Protein (6.3-8.2) g/dL Albumin (3.5-5.0) g/dL Urine Color Urine Appearance (Clear) Urine pH (5.0-8.0) Ur Specific [place] (1.001-1.035) Urine Protein (Negative) Urine Glucose (UA) (Negative) Urine Ketones (Negative) Urine Blood (Negative) Urine Nitrite (Negative) Urine Bilirubin (Negative) Urine Urobilinogen (<2.0) mg/dL Ur Leukocyte Esterase (Negative) Urine RBC (0-5) /hpf Urine WBC (0-5) /hpf Hyaline Casts (0-2) /lpf Urine Mucus (None) /hpf Disposition Clinical Impression: Hypoglycemia, Dizziness Disposition: HOME SELF-CARE Condition: Fair Instructions (If sedation given, give patient instructions): Dizziness (ED), Hypoglycemia in a Person with Diabetes (ED) Is patient prescribed a controlled substance at d/c from ED?: No Referrals: Robles Valenzuela DO [Primary Care Provider] - 1-2 days Time of Disposition: 14:01
[2021-10-02 13:02] LABS: Appearance,Urine Clear (Clear); Bilirubin,Urine Negative (Negative); Blood,Urine Negative (Negative); Color,Urine Yellow; Glucose,Urine (UA) 2+ (Negative); Hyaline Casts,Urine 26 /lpf (0-2); Ketones,Urine Negative (Negative); Leukocyte Esterase,Urine Negative (Negative); Mucus,Urine Occasional /hpf; Nitrite,Urine Negative (Negative); PH, Urine 6.5 (5.0-8.0); Protein,Urine 1+ (Negative); RBC,Urine <1 /hpf (0-5); Specific Gravity,Urine 1.018 (1.001-1.035); WBC,Urine 2 /hpf (0-5)
[2021-10-02 13:38] LABS: Basophils % (A) 0 %; Eosinophils % (A) 0 %; HCT 34.2 % (39.0-53.0); HGB 10.6 gm/dL (13.0-17.5); Hypochromasia Moderate; Lymphocytes # (A) 0.7 k/uL (1.0-4.8); Lymphocytes % (A) 6 %; MCH 26.2 pg (25.0-35.0); MCHC 31.1 g/dL (31.0-37.0); MCV 84.3 fL (80.0-100.0); Mean Platelet Volume 9.3; Monocytes # (A) 0.4 k/uL (0-1.0); Monocytes % (A) 3 %; Neutrophils # (A) 12.2 k/uL (1.3-7.7); Neutrophils % (A) 91 %; Platelet Count 161 k/uL (150-450); RBC 4.06 m/uL (4.30-5.90); RDW 13.7 % (11.5-15.5); WBC 13.4 k/uL (3.8-10.6)
[2021-10-02 13:54] VITALS: BP 124/67; PULSE 70
== END 2021-10-02 14:36 | disposition home or self-care (01) ==
LOC: EEVIPCON 11:47 → EC 11:47
DX: R42 Dizziness and giddiness (principal); E16.2 Hypoglycemia, unspecified; E11.9 Type 2 diabetes mellitus without complications; I10 Essential (primary) hypertension; Z86.73 Personal history of transient ischemic attack (TIA), and cerebral infarction without residual deficits
CPT/HCPCS: 36415; 80053; 81001; 83605; 83735; 85025; 85610; 85730; 93005; 96374; 99285

== ENCOUNTER 2021-10-29 01:08 | Inpatient (IN) | payer MEDICARE, OTHER ==
[2021-10-29] MEDS ORDERED: SODIUM CHLORIDE 0.9% 1,000 ML IV STA ×2 (01:30→04:36)
[2021-10-29 01:51] LABS: Basophils # (A) 0.1 k/uL (0-0.2); Basophils % (A) 1 %; Eosinophils # (A) 0.1 k/uL (0-0.7); Eosinophils % (A) 1 %; HCT 37.3 % (39.0-53.0); HGB 11.8 gm/dL (13.0-17.5); Hypochromasia Moderate; Lymphocytes # (A) 1.2 k/uL (1.0-4.8); Lymphocytes % (A) 10 %; MCH 26.4 pg (25.0-35.0); MCHC 31.5 g/dL (31.0-37.0); MCV 83.6 fL (80.0-100.0); Mean Platelet Volume 8.7; Monocytes # (A) 0.2 k/uL (0-1.0); Monocytes % (A) 2 %; Neutrophils # (A) 9.8 k/uL (1.3-7.7); Neutrophils % (A) 86 %; Platelet Count 143 k/uL (150-450); RBC 4.46 m/uL (4.30-5.90); RDW 13.9 % (11.5-15.5); WBC 11.5 k/uL (3.8-10.6)
--- NOTE | 2021-10-29 01:53 | ED ---
Syncope HPI - General Chief Complaint: Syncope Stated Complaint: syncope Time Seen by Provider: 10/29/21 01:15 Source: patient, EMS, RN notes reviewed, old records reviewed Mode of arrival: EMS Limitations: altered mental status - History of Present Illness Initial Comments: This is a 51-year-old male who is a poor strain. Patient unable to give accura te history regarding symptoms and unable to significant answer significant questions. Patient's brought in by EMS with multiple episodes of syncope prior to arrival. Patient has had significant amount of nausea vomiting and diarrhea per EMS. Patient has known history of syncope and was in the ER about a month ago for similar event. Patient is debilitated and has significant involvement of the left MD Complaint: loss of consciousness, collapsed -: hour(s) Prodromal Symptoms: none Description of Event: other (none) -: second(s) Witnessed: yes - by bystander, yes - by EMS Current Symptoms: none History: previous syncopal episode Context: at rest Treatments Prior to Arrival: none - Related Data Home Medications Medication Instructions Recorded Confirmed ARIPiprazole 15 mg PO BID@0700,199907/29/18 10/02/21 Benztropine Mesylate [Cogentin] 0.5 mg PO TID@0700,1200,199907/29/18 10/02/21 Citalopram Hydrobromide [CeleXA] 40 mg PO DAILY@0700 07/29/18 10/02/21 Enalapril [Vasotec] 5 mg PO DAILY@0700 07/29/18 10/02/21 LORazepam [Ativan] 1 mg PO TID@0700,1200,199907/29/18 10/02/21 cloZAPine [Clozaril] 100 mg PO BID@0700,1600 02/20/20 10/02/21 Aspirin EC [Ecotrin Low Dose] 81 mg PO DAILY@0700 07/31/21 10/02/21 Atorvastatin Calcium [Lipitor] 10 mg PO HS@199907/31/21 10/02/21 Carbidopa-Levodopa 10-100 mg 1 tab PO TID@0700,1600,199907/31/21 10/02/21 [Sinemet 10-100 mg] Melatonin 10 mg PO HS@199907/31/21 10/02/21 Oxybutynin Chloride [Ditropan] 5 mg PO TID@0700,1600,199907/31/21 10/02/21 Pregabalin [Lyrica] 75 mg PO DAILY@00 07/31/21 10/02/21 Primidone [Mysoline] 50 mg PO HS@199907/31/21 10/02/21 Amoxicillin 500 mg PO BID@07,199910/02/21 10/02/21 Clarithromycin [Biaxin] 500 mg PO BID@699,199910/02/21 10/02/21 Ergocalciferol [Vitamin D2 (1250 1,250 mcg PO QMONTHLY 10/02/21 10/02/21 Mcg = 94354 Iu)] Omeprazole [PriLOSEC] 20 mg PO BID@0700,1600 10/02/21 10/02/21 QUEtiapine [SEROquel] 25 mg PO DAILY@0700 10/02/21 10/02/21 Allergies Allergy/AdvReac Type Severity Reaction Status Date / Time No Known Allergies Allergy Verified 10/02/21 12:54 Review of Systems ROS Statement: Those systems with pertinent positive or pertinent negative responses have been documented in the HPI. ROS Other: All systems not noted in ROS Statement are negative. Past Medical History Past Medical History: CVA/TIA, Diabetes Mellitus, Hypertension Additional Past Medical History / Comment(s): Pt recently admitted to [facility] on 02/20/20 with R intrinsic hand muscle weakness/possible L vertebral artery stenosis/thrombocytopenia. Other hx: Diet controlled diabetes, autism, intellectual impairment History of Any Multi-Drug Resistant Organisms: None Reported Past Surgical History: No Surgical Hx Reported Additional Past Surgical History / Comment(s): BROTHER STATED NO KNOWN SX Past Anesthesia/Blood Transfusion Reactions: Unable to Obtain Additional Past Anesthesia/Blood Transfusion Reaction / Comment(s): NEVER HAD ANY SX Past Psychological History: No Psychological Hx Reported Smoking Status: Never smoker Past Alcohol Use History: None Reported Past Drug Use History: None Reported - Past Family History Father Family Medical History: Cancer Additional Family Medical History / Comment(s): COLON CANCER Mother Family Medical History: Cancer, Diabetes Mellitus, Hypertension Additional Family Medical History / Comment(s): OBESITY, FROM METASTATIC KINDEY CANCER General Exam Limitations: altered mental status General appearance: alert, lethargic, cachectic Head exam: Present: atraumatic, normocephalic, normal inspection Eye exam: Present: normal appearance, PERRL, EOMI. Absent: scleral icterus, conjunctival injection, periorbital swelling ENT exam: Present: normal exam, mucous membranes dry Neck exam: Present: normal inspection. Absent: tenderness, meningismus, lymphadenopathy Respiratory exam: Present: normal lung sounds bilaterally. Absent: respiratory distress, wheezes, rales, rhonchi, stridor Cardiovascular Exam: Present: regular rate, normal rhythm, normal heart sounds. Absent: systolic murmur, diastolic murmur, rubs, gallop, clicks GI/Abdominal exam: Present: soft, normal bowel sounds. Absent: distended, tenderness, guarding, rebound, rigid Extremities exam: Present: normal inspection, full ROM, normal capillary refill. Absent: tenderness, pedal edema, joint swelling, calf tenderness Back exam: Present: normal inspection Neurological exam: Present: alert, oriented X3, CN II-XII intact Psychiatric exam: Present: normal affect, normal mood Skin exam: Present: warm, dry, intact, normal color. Absent: rash Course Vital Signs 10/29/21 10/29/21 10/29/21 01:10 02:15 02:30 Temperature 97.8 F Pulse Rate 76 76 84 Respiratory 18 18 18 Rate Blood Pressure 103/63 71/53 67/34 O2 Sat by Pulse 100 99 98 Oximetry 10/29/21 10/29/21 10/29/21 02:45 03:00 03:40 Temperature Pulse Rate 88 84 88 Respiratory 18 18 18 Rate Blood Pressure 67/33 107/51 108/63 O2 Sat by Pulse 96 98 98 Oximetry - Reevaluation(s) Reevaluation #1: 10/29/21 04:49 Medical record is reviewed Reevaluation #2: 10/29/21 04:49 Blood pressure remains labile but trending positively Reevaluation #3: 10/29/21 04:49 Patient continues to have a significant amount of diarrhea here in the ER Reevaluation #4: 10/29/21 04:49 Patient remains altered and unable to give history, informed of results - Consultations Consultation #1: sPoke with [facility] re admission and they are agreeable EKG Findings - EKG Comments: EKG Findings:: EKG shows sinus rhythm 79 MT 175 QRS 90 QTC 435 Medical Decision Making - Medical Decision Making 51 male to the emergency department for evaluation. Patient had to syncope episodes prior to arrival and one syncopal episode here in the ER blood pressure was significantly low upon arrival as well as prehospital and has improve with significant amount of resuscitation here in the hospital, patient does have persistent diarrhea here in the hospital is a poor story will be admitted for continued resuscitation - Lab Data Result diagrams: 10/29/21 01:32 10/29/21 01:32 Lab Results 10/29/21 10/29/21 10/29/21 Range/Units 01:32 01:32 01:32 WBC 11.5 H (3.8-10.6) k/uL RBC 4.46 (4.30-5.90) m/uL Hgb 11.8 L (13.0-17.5) gm/dL Hct 37.3 L (39.0-53.0) % MCV 83.6 (80.0-100.0) fL MCH 26.4 (25.0-35.0) pg MCHC 31.5 (31.0-37.0) g/dL RDW 13.9 (11.5-15.5) % Plt Count 143 L (150-450) k/uL MPV 8.7 Neutrophils % 86 % Lymphocytes % 10 % Monocytes % 2 % Eosinophils % 1 % Basophils % 1 % Neutrophils # 9.8 H (1.3-7.7) k/uL Lymphocytes # 1.2 (1.0-4.8) k/uL Monocytes # 0.2 (0-1.0) k/uL Eosinophils # 0.1 (0-0.7) k/uL Basophils # 0.1 (0-0.2) k/uL Hypochromasia Moderate PT 11.1 (9.0-12.0) sec INR 1.0 (<1.2) APTT 22.4 (22.0-30.0) sec D-Dimer 1.82 H (<0.60) mg/L FEU Sodium 138 (137-145) mmol/L Potassium 4.0 (3.5-5.1) mmol/L Chloride 105 (98-107) mmol/L Carbon Dioxide 27 (22-30) mmol/L Anion Gap 6 mmol/L BUN 25 H (9-20) mg/dL Creatinine 1.14 (0.66-1.25) mg/dL Est GFR (CKD-EPI)AfAm 85 (>60 ml/min/1.73 sqM) Est GFR (CKD-EPI)NonAf 73 (>60 ml/min/1.73 sqM) Glucose 119 H (74-99) mg/dL Plasma Lactic Acid [place] (0.7-2.0) mmol/L Calcium 9.0 (8.4-10.2) mg/dL Phosphorus 4.6 H (2.5-4.5) mg/dL Magnesium 2.7 H (1.6-2.3) mg/dL Total Bilirubin 0.6 (0.2-1.3) mg/dL AST 35 (17-59) U/L ALT 11 (4-49) U/L Alkaline Phosphatase 80 (38-126) U/L Troponin I (0.000-0.034) ng/mL NT-Pro-B Natriuret Pep pg/mL Total Protein 6.5 (6.3-8.2) g/dL Albumin 3.7 (3.5-5.0) g/dL Urine Color Urine Appearance (Clear) Urine pH (5.0-8.0) Ur Specific [place] (1.001-1.035) Urine Protein (Negative) Urine Glucose (UA) (Negative) Urine Ketones (Negative) Urine Blood (Negative) Urine Nitrite (Negative) Urine Bilirubin (Negative) Urine Urobilinogen (<2.0) mg/dL Ur Leukocyte Esterase (Negative) Urine RBC (0-5) /hpf Urine WBC (0-5) /hpf Calcium Oxalate Crystal (None) /hpf Urine Bacteria (None) /hpf Hyaline Casts (0-2) /lpf Urine Mucus (None) /hpf 10/29/21 10/29/21 10/29/21 Range/Units 01:32 01:32 01:32 WBC (3.8-10.6) k/uL RBC (4.30-5.90) m/uL Hgb (13.0-17.5) gm/dL Hct (39.0-53.0) % MCV (80.0-100.0) fL MCH (25.0-35.0) pg MCHC (31.0-37.0) g/dL RDW (11.5-15.5) % Plt Count (150-450) k/uL MPV Neutrophils % % Lymphocytes % % Monocytes % % Eosinophils % % Basophils % % Neutrophils # (1.3-7.7) k/uL Lymphocytes # (1.0-4.8) k/uL Monocytes # (0-1.0) k/uL Eosinophils # (0-0.7) k/uL Basophils # (0-0.2) k/uL Hypochromasia PT (9.0-12.0) sec INR (<1.2) APTT (22.0-30.0) sec D-Dimer (<0.60) mg/L FEU Sodium (137-145) mmol/L Potassium (3.5-5.1) mmol/L Chloride (98-107) mmol/L Carbon Dioxide (22-30) mmol/L Anion Gap mmol/L BUN (9-20) mg/dL Creatinine (0.66-1.25) mg/dL Est GFR (CKD-EPI)AfAm (>60 ml/min/1.73 sqM) Est GFR (CKD-EPI)NonAf (>60 ml/min/1.73 sqM) Glucose (74-99) mg/dL Plasma Lactic Acid [place] 1.1 (0.7-2.0) mmol/L Calcium (8.4-10.2) mg/dL Phosphorus (2.5-4.5) mg/dL Magnesium (1.6-2.3) mg/dL Total Bilirubin (0.2-1.3) mg/dL AST (17-59) U/L ALT (4-49) U/L Alkaline Phosphatase (38-126) U/L Troponin I <0.012 (0.000-0.034) ng/mL NT-Pro-B Natriuret Pep 20 pg/mL Total Protein (6.3-8.2) g/dL Albumin (3.5-5.0) g/dL Urine Color Urine Appearance (Clear) Urine pH (5.0-8.0) Ur Specific [place] (1.001-1.035) Urine Protein (Negative) Urine Glucose (UA) (Negative) Urine Ketones (Negative) Urine Blood (Negative) Urine Nitrite (Negative) Urine Bilirubin (Negative) Urine Urobilinogen (<2.0) mg/dL Ur Leukocyte Esterase (Negative) Urine RBC (0-5) /hpf Urine WBC (0-5) /hpf Calcium Oxalate Crystal (None) /hpf Urine Bacteria (None) /hpf Hyaline Casts (0-2) /lpf Urine Mucus (None) /hpf 10/29/21 Range/Units 04:04 WBC (3.8-10.6) k/uL RBC (4.30-5.90) m/uL Hgb (13.0-17.5) gm/dL Hct (39.0-53.0) % MCV (80.0-100.0) fL MCH (25.0-35.0) pg MCHC (31.0-37.0) g/dL RDW (11.5-15.5) % Plt Count (150-450) k/uL MPV Neutrophils % % Lymphocytes % % Monocytes % % Eosinophils % % Basophils % % Neutrophils # (1.3-7.7) k/uL Lymphocytes # (1.0-4.8) k/uL Monocytes # (0-1.0) k/uL Eosinophils # (0-0.7) k/uL Basophils # (0-0.2) k/uL Hypochromasia PT (9.0-12.0) sec INR (<1.2) APTT (22.0-30.0) sec D-Dimer (<0.60) mg/L FEU Sodium (137-145) mmol/L Potassium (3.5-5.1) mmol/L Chloride (98-107) mmol/L Carbon Dioxide (22-30) mmol/L Anion Gap mmol/L BUN (9-20) mg/dL Creatinine (0.66-1.25) mg/dL Est GFR (CKD-EPI)AfAm (>60 ml/min/1.73 sqM) Est GFR (CKD-EPI)NonAf (>60 ml/min/1.73 sqM) Glucose (74-99) mg/dL Plasma Lactic Acid [place] (0.7-2.0) mmol/L Calcium (8.4-10.2) mg/dL Phosphorus (2.5-4.5) mg/dL Magnesium (1.6-2.3) mg/dL Total Bilirubin (0.2-1.3) mg/dL AST (17-59) U/L ALT (4-49) U/L Alkaline Phosphatase (38-126) U/L Troponin I (0.000-0.034) ng/mL NT-Pro-B Natriuret Pep pg/mL Total Protein (6.3-8.2) g/dL Albumin (3.5-5.0) g/dL Urine Color Yellow Urine Appearance Clear (Clear) Urine pH 5.0 (5.0-8.0) Ur Specific [place] 1.020 (1.001-1.035) Urine Protein Trace H (Negative) Urine Glucose (UA) Negative (Negative) Urine Ketones Negative (Negative) Urine Blood Trace H (Negative) Urine Nitrite Negative (Negative) Urine Bilirubin Negative (Negative) Urine Urobilinogen 2.0 (<2.0) mg/dL Ur Leukocyte Esterase Negative (Negative) Urine RBC 4 (0-5) /hpf Urine WBC 1 (0-5) /hpf Calcium Oxalate Crystal Occasional H (None) /hpf Urine Bacteria Rare H (None) /hpf Hyaline Casts 13 H (0-2) /lpf Urine Mucus Rare H (None) /hpf - Radiology Data Radiology results: report reviewed (CT brain C-spine negative for traumatic injury, CT angios for PE is negative for acute disease), image reviewed Critical Care Time Critical Care Time: Yes Total Critical Care Time: 31 Disposition Clinical Impression: Dehydration, Altered mental status, Weakness, Diarrhea, Syncope, Hypotension Disposition: ADMITTED IP TO THIS [facility] Condition: Serious Is patient prescribed a controlled substance at d/c from ED?: No Referrals: Robles Valenzuela DO [Primary Care Provider] - 1-2 days
[2021-10-29 02:14] LABS: Albumin 3.7 g/dL (3.5-5.0); Magnesium 2.7 mg/dL (1.6-2.3); Phosphorus 4.6 mg/dL (2.5-4.5); Total Bilirubin 0.6 mg/dL (0.2-1.3); Total Protein 6.5 g/dL (6.3-8.2)
[2021-10-29 02:15] LABS: Partial Thromboplastin Time 22.4 sec (22.0-30.0); Prothrombin Time 11.1 sec (9.0-12.0)
--- NOTE | 2021-10-29 03:28 | CT ---
EXAMINATION TYPE: CT brain cspine wo con DATE OF EXAM: 10/29/2021 COMPARISON: 07/31/2021 HISTORY: fall/syncope CT DLP: 1416.6 mGycm Automated exposure control for dose reduction was used. There is mild cerebral atrophy. There is no mass effect or midline shift. There is no sign of intracr anial hemorrhage. The calvarium is intact. There is normal aeration of the mastoid sinuses. Cervical vertebra have normal spacing and alignment. Posterior elements are intact. There is no compr ession fracture. There is anterior spurring in the mid and lower cervical spine. Facet joints are int act. IMPRESSION: Negative CT scan of the cervical spine. Mild spur formation. No fracture. Mild cerebral atrophy with no acute abnormality and no change compared to old exam.
--- NOTE | 2021-10-29 03:38 | CT ---
EXAMINATION TYPE: CT angio chest DATE OF EXAM: 10/29/2021 COMPARISON: None HISTORY: elevated d-dimer/syncope CT DLP: 496.2 mGycm Automated exposure control for dose reduction was used. CONTRAST: Performed with IV Contrast, patient injected with 100ml mL of Isovue 370. Images obtained from the inlet to the diaphragm with IV contrast. There are Three-D postprocessed lawson ges. There is dilated esophagus with fluid levels. Heart size is normal. There is no pericardial effusion. There is no evidence of filling defect in the pulmonary arteries. There is no mediastinal adenopathy. There are no hilar masses. There is mild subsegmental atelectasis at the posterior lung bases. There is degenerative spurring in the thoracic spine. There is no compression fracture. Sternum is intact. There is calcified gallstone. IMPRESSION: No evidence of pulmonary embolism. Dilated thoracic esophagus with fluid levels and also dilated stomach. This could relate to reflux di sease or other esophageal dysfunction.
[2021-10-29 04:24] LABS: Appearance,Urine Clear (Clear); Bacteria,Urine Rare /hpf; Bilirubin,Urine Negative (Negative); Blood,Urine Trace (Negative); Calcium Oxalate Crystals,Urine Occasional /hpf; Color,Urine Yellow; Glucose,Urine (UA) Negative (Negative); Hyaline Casts,Urine 13 /lpf (0-2); Ketones,Urine Negative (Negative); Leukocyte Esterase,Urine Negative (Negative); Mucus,Urine Rare /hpf; Nitrite,Urine Negative (Negative); Protein,Urine Trace (Negative); RBC,Urine 4 /hpf (0-5); WBC,Urine 1 /hpf (0-5)
[2021-10-29] MEDS ORDERED: SODIUM CHLORIDE 0.9% 2,000 ML IV ONE (04:32)
[2021-10-29] MEDS ORDERED: LORazepam 2 MG/ML INJ IV PRN ×2 (04:45→22:53)
[2021-10-29] MEDS ORDERED: NALOXONE 0.4 MG/ML 1 ML VIAL IV PRN (04:45)
[2021-10-29] MEDS: SODIUM CHLORIDE 0.9% 1,000 ML IV SCH ×2 (06:09→13:16)
[2021-10-29] MEDS ORDERED: LACTULOSE 20 GM/30 ML CUP PO ONE (06:41)
[2021-10-29] MEDS: LACTULOSE 20 GM/30 ML CUP PO SCH (08:28)
[2021-10-29] MEDS ORDERED: NYSTATIN 100,000 UNIT/GM POWD 15 GM TOPICAL PRN (08:55)
[2021-10-29] MEDS ORDERED: PANTOPRAZOLE 40 MG/10 ML VIAL IV SCH (09:00)
[2021-10-29] MEDS ORDERED: FLUDROCORTISONE 0.1 MG TAB PO SCH (09:45)
--- NOTE | 2021-10-29 12:30 | P.CRDCN ---
<Elle Jackson - Last Filed: 10/29/21 12:22> History of Present Illness Consult date: 10/29/21 History of present illness: HISTORY OF PRESENT ILLNESS: This is a 51-year-old male with a past medical history significant for CVA, diabetes, and hypertension. 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 We have been asked to see the patient in consultation for syncope. Patient examined at the bedside. Patient has an intellectual impairment per EMR. He is a poor historian. There is no family present. Patient was brought to the hospital secondary to multiple episodes of syncope. Apparently the patient was having significant amounts of vomiting and diarrhea per EMS. The patient was found to be hypotensive with a blood pressure in the 60s70s. Blood pressure this mo rning has improved with a systolic of 100. * EKG reveals sinus mechanism with no signs of acute ischemia * Chest CTA: No evidence of PE. Dilated thoracic esophagus with fluid levels and also dilated stomach. This could relate to reflux disease or other esophageal dysfunction. * Laboratory data: WBC 11.5. Hemoglobin 11.8. Platelet count 143. D-dimer 1.82. Sodium 138. Potassium 4.0. B UN 25. Creatinine 1.14. Troponin negative x 3 * Current home cardiac medications include enalapril 5 mg daily, atorvastatin 10 mg at night, aspirin 81 mg daily * Most recent echocardiogram obtained in January 2020 revealed ejection fraction 55-60%, trace MR, mild TR REVIEW OF SYSTEMS: At the time of my exam: Unable to obtain thorough review of systems secondary to mental status PHYSICAL EXAM: VITAL SIGNS: Reviewed. GENERAL: Well-developed in no acute distress. HEENT: Head is normocephalic. Pupils are equal, round. Sclerae anicteric. Mucous membranes of the mouth are moist. Neck supple. No JVD or thyromegaly LUNGS: Respirations even and unlabored. Lungs essentially clear to auscultation bilaterally. HEART: Regular rate and rhythm. S1 and S2 heard. ABDOMEN: Soft. Nondistended. Nontender. EXTREMITIES: Normal range of motion. No clubbing or cyanosis. Peripheral pulses intact. No lower extremity edema NEUROLOGIC: Awake and alert. ASSESSMENT: Syncope, exact details of syncopal episodes unknown Hypotension History of hypertension Diabetes History of CVA History of austism History of intellectual impairment PLAN: Obtain 2D echo to assess cardiac structure and function Continue telemetry monitoring If 2D echo does not reveal any significant abnormalities, no further inpatient cardiac workup will be recommended. Nurse practitioner note has been reviewed by physician. Signing provider agrees with the documented findings, assessment, and plan of care. Past Medical History Past Medical History: CVA/TIA, Diabetes Mellitus, Hypertension Additional Past Medical History / Comment(s): Pt recently admitted to [facility] on 02/20/20 with R intrinsic hand muscle weakness/possible L vertebral artery stenosis/thrombocytopenia. Other hx: Diet controlled diabetes, autism, intellectual impairment History of Any Multi-Drug Resistant Organisms: None Reported Past Surgical History: No Surgical Hx Reported Additional Past Surgical History / Comment(s): BROTHER STATED NO KNOWN SX Past Anesthesia/Blood Transfusion Reactions: Unable to Obtain Additional Past Anesthesia/Blood Transfusion Reaction / Comment(s): NEVER HAD ANY SX Past Psychological History: No Psychological Hx Reported Smoking Status: Never smoker Past Alcohol Use History: None Reported Past Drug Use History: None Reported - Past Family History Father Family Medical History: Cancer Additional Family Medical History / Comment(s): COLON CANCER Mother Family Medical History: Cancer, Diabetes Mellitus, Hypertension Additional Family Medical History / Comment(s): OBESITY, FROM METASTATIC KINDEY CANCER Medications and Allergies Home Medications Medication Instructions Recorded Confirmed Type ARIPiprazole 15 mg PO BID@0700,199907/29/18 10/29/21 History Benztropine Mesylate [Cogentin] 0.5 mg PO TID@0700,1200,199907/29/18 10/29/21 History Citalopram Hydrobromide [CeleXA] 40 mg PO DAILY@0700 07/29/18 10/29/21 History Enalapril [Vasotec] 5 mg PO DAILY@0700 07/29/18 10/29/21 History LORazepam [Ativan] 1 mg PO TID@0700,1200,199907/29/18 10/29/21 History cloZAPine [Clozaril] 100 mg PO BID@0700,1600 02/20/20 10/29/21 History Aspirin EC [Ecotrin Low Dose] 81 mg PO DAILY@0700 07/31/21 10/29/21 History Atorvastatin Calcium [Lipitor] 10 mg PO HS@199907/31/21 10/29/21 History Carbidopa-Levodopa 10-100 mg 1 tab PO TID@0700,1599,199907/31/21 10/29/21 History [Sinemet 10-100 mg] Melatonin 10 mg PO HS@199907/31/21 10/29/21 History Oxybutynin Chloride [Ditropan] 5 mg PO TID@0700,1599,199907/31/21 10/29/21 History Pregabalin [Lyrica] 75 mg PO DAILY@69907/31/21 10/29/21 History Primidone [Mysoline] 50 mg PO DAILY@69907/31/21 10/29/21 History Cholecalciferol [Vitamin D3 (25 50 mcg PO DAILY@69910/29/21 10/29/21 History Mcg = 1000 Iu)] Hydrocortisone Cream 1 applic TOPICAL BID@699,199910/29/21 10/29/21 History [Hydrocortisone 2.5% Cream] LORazepam [Ativan] 2 mg PO DAILY PRN 10/29/21 10/29/21 History Nystatin [Nystop] 1 applic TOPICAL DAILY PRN 10/29/21 10/29/21 History Allergies Allergy/AdvReac Type Severity Reaction Status Date / Time No Known Allergies Allergy Verified 10/29/21 08:18 Physical Exam Vitals: Vital Signs Temp Pulse Resp BP Pulse Ox 10/29/21 11:36 94 18 126/74 100 10/29/21 10:09 93 16 122/69 100 10/29/21 07:40 95 16 101/67 97 10/29/21 06:45 82 18 112/75 95 10/29/21 06:02 85 18 103/57 98 10/29/21 04:49 82 18 90/49 98 10/29/21 03:40 88 18 108/63 98 10/29/21 03:00 84 18 107/51 98 10/29/21 02:45 88 18 67/33 96 10/29/21 02:30 84 18 67/34 98 10/29/21 02:15 76 18 71/53 99 10/29/21 01:10 97.8 F 76 18 103/63 100 Intake and Output 10/28/21 10/29/21 10/29/21 22:59 06:59 14:59 Output Total 300 800 Balance -300 -800 Output: Urine 300 800 Uretheral (Zepeda) 300 Other: Weight 79.379 kg Results 10/29/21 01:32 10/29/21 01:32 Cardiac Enzymes 10/29/21 10/29/21 10/29/21 Range/Units 01:32 01:32 05:48 AST 35 (17-59) U/L Troponin I <0.012 <0.012 (0.000-0.034) ng/mL 10/29/21 Range/Units 08:32 AST (17-59) U/L Troponin I <0.012 (0.000-0.034) ng/mL Coagulation 10/29/21 Range/Units 01:32 PT 11.1 (9.0-12.0) sec APTT 22.4 (22.0-30.0) sec CBC 10/29/21 Range/Units 01:32 WBC 11.5 H (3.8-10.6) k/uL RBC 4.46 (4.30-5.90) m/uL Hgb 11.8 L (13.0-17.5) gm/dL Hct 37.3 L (39.0-53.0) % Plt Count 143 L (150-450) k/uL Comprehensive Metabolic Panel 10/29/21 Range/Units 01:32 Sodium 138 (137-145) mmol/L Potassium 4.0 (3.5-5.1) mmol/L Chloride 105 (98-107) mmol/L Carbon Dioxide 27 (22-30) mmol/L BUN 25 H (9-20) mg/dL Creatinine 1.14 (0.66-1.25) mg/dL Glucose 119 H (74-99) mg/dL Calcium 9.0 (8.4-10.2) mg/dL AST 35 (17-59) U/L ALT 11 (4-49) U/L Alkaline Phosphatase 80 (38-126) U/L Total Protein 6.5 (6.3-8.2) g/dL Albumin 3.7 (3.5-5.0) g/dL Current Medications Generic Name Dose Route Start Last Admin Trade Name Freq PRN Reason Stop Dose Admin Aripiprazole 15 mg 10/29/21 20:00 Aripiprazole 15 Mg Tab PO BID@0700,2000 [facility] Aspirin 81 mg 10/30/21 07:00 Aspirin 81 Mg PO DAILY@0700 [facility] Atorvastatin Calcium 10 mg 10/29/21 20:00 Atorvastatin 10 Mg Tab PO HS@1999 [facility] Carbidopa/Levodopa 1 each 10/29/21 16:00 Carbidopa-Levodopa 10-100 Mg 1 Each Tab PO TID@0700,1599,1999 [facility] Citalopram Hydrobromide 40 mg 10/30/21 07:00 Citalopram Hydrobromide 20 Mg Tab PO DAILY@0700 [facility] Fludrocortisone Acetate 0.1 mg 10/29/21 09:45 10/29/21 11:25 Fludrocortisone 0.1 Mg Tab PO 0.1 mg DAILY ROBERTO Administration Sodium Chloride 1,000 mls @ 100 mls/hr 10/29/21 04:45 10/29/21 06:09 Saline 0.9% IV 150 mls/hr .Q10H ROBERTO Administration Lactulose 30 gm 10/29/21 09:00 10/29/21 08:28 Lactulose 20 Gm/30 Ml Cup PO Not Given BID [facility] Lorazepam 0.5 mg 10/29/21 04:45 Lorazepam 2 Mg/Ml Inj IV Q6HR PRN Anxiety Naloxone HCl 0.2 mg 10/29/21 04:45 Naloxone 0.4 Mg/Ml 1 Ml Vial IV Q2M PRN Opioid Reversal Nystatin 1 applic 10/29/21 08:55 Nystatin 100,000 Unit/Gm Powd 15 Gm TOPICAL DAILY PRN Rash Protocol Ondansetron HCl 4 mg 10/29/21 04:45 Ondansetron 4 Mg/2 Ml Vial IVP Q8HR PRN Nausea And Vomiting Pantoprazole Sodium 40 mg 10/29/21 09:00 10/29/21 08:52 Pantoprazole 40 Mg/10 Ml Vial IV 40 mg DAILY ROBERTO Administration Pregabalin 75 mg 10/30/21 07:00 Pregabalin 75 Mg Cap PO DAILY@0700 [facility] Primidone 50 mg 10/30/21 07:00 Primidone 50 Mg Tab PO DAILY@0700 [facility] Triamcinolone Acetonide 1 applic 10/29/21 20:00 Triamcinolone 0.1% Cream 80 Gm Tube TOPICAL BID@07,1999 [facility] Intake and Output 10/28/21 10/29/21 10/29/21 22:59 06:59 14:59 Output Total 300 800 Balance -300 -800 Output: Urine 300 800 Uretheral (Zepeda) 300 Other: Weight 79.379 kg 10/29/21 01:32 10/29/21 01:32 <Juan J Quintana - Last Filed: 10/29/21 14:14> History of Present Illness History of present illness: Patient interviewed and examined by me. Data reviewed. Impression and plan formulated by me and discussed with nurse practitioner Nurse practitioner transcribed note on my behalf Physical Exam Vitals: Vital Signs Temp Pulse Resp BP Pulse Ox 10/29/21 11:36 94 18 126/74 100 10/29/21 10:09 93 16 122/69 100 10/29/21 07:40 95 16 101/67 97 10/29/21 06:45 82 18 112/75 95 10/29/21 06:02 85 18 103/57 98 10/29/21 04:49 82 18 90/49 98 10/29/21 03:40 88 18 108/63 98 10/29/21 03:00 84 18 107/51 98 10/29/21 02:45 88 18 67/33 96 10/29/21 02:30 84 18 67/34 98 10/29/21 02:15 76 18 71/53 99 10/29/21 01:10 97.8 F 76 18 103/63 100 Intake and Output 10/28/21 10/29/21 10/29/21 22:59 06:59 14:59 Output Total 300 800 Balance -300 -800 Output: Urine 300 800 Uretheral (Zepeda) 300 Other: Weight 79.379 kg 79.379 kg Results 10/29/21 01:32 10/29/21 01:32 Cardiac Enzymes 10/29/21 10/29/21 10/29/21 Range/Units 01:32 01:32 05:48 AST 35 (17-59) U/L Troponin I <0.012 <0.012 (0.000-0.034) ng/mL 10/29/21 Range/Units 08:32 AST (17-59) U/L Troponin I <0.012 (0.000-0.034) ng/mL Coagulation 10/29/21 Range/Units 01:32 PT 11.1 (9.0-12.0) sec APTT 22.4 (22.0-30.0) sec CBC 03/01/22 Range/Units 01:32 WBC 11.5 H (3.8-10.6) k/uL RBC 4.46 (4.30-5.90) m/uL Hgb 11.8 L (13.0-17.5) gm/dL Hct 37.3 L (39.0-53.0) % Plt Count 143 L (150-450) k/uL Comprehensive Metabolic Panel 10/29/21 Range/Units 01:32 Sodium 138 (137-145) mmol/L Potassium 4.0 (3.5-5.1) mmol/L Chloride 105 (98-107) mmol/L Carbon Dioxide 27 (22-30) mmol/L BUN 25 H (9-20) mg/dL Creatinine 1.14 (0.66-1.25) mg/dL Glucose 119 H (74-99) mg/dL Calcium 9.0 (8.4-10.2) mg/dL AST 35 (17-59) U/L ALT 11 (4-49) U/L Alkaline Phosphatase 80 (38-126) U/L Total Protein 6.5 (6.3-8.2) g/dL Albumin 3.7 (3.5-5.0) g/dL Current Medications Generic Name Dose Route Start Last Admin Trade Name Freq PRN Reason Stop Dose Admin Aripiprazole 15 mg 10/29/21 20:00 Aripiprazole 15 Mg Tab PO BID@0700,1999 [facility] Aspirin 81 mg 10/30/21 07:00 Aspirin 81 Mg PO DAILY@0700 [facility] Atorvastatin Calcium 10 mg 10/29/21 20:00 Atorvastatin 10 Mg Tab PO HS@1999 [facility] Benztropine Mesylate 0.5 mg 10/29/21 20:00 Benztropine Mesylate 0.5 Mg Tab PO TID@0700,1200,1999 [facility] Carbidopa/Levodopa 1 each 10/29/21 16:00 Carbidopa-Levodopa 10-100 Mg 1 Each Tab PO TID@0700,1599,1999 [facility] Cholecalciferol 50 mcg 10/30/21 07:00 Cholecalciferol 25 Mcg (1000 Iu) Tablet PO DAILY@0700 [facility] Citalopram Hydrobromide 40 mg 10/30/21 07:00 Citalopram Hydrobromide 20 Mg Tab PO DAILY@0700 [facility] Clozapine 100 mg 10/29/21 16:00 Clozapine 100 Mg Tab PO BID@0700,1600 [facility] Heparin Sodium (Porcine) 5,000 unit 10/29/21 21:00 Heparin Sodium,Porcine/Pf 5,000 Unit/0.5 Ml Syringe SQ Q12HR [facility] Sodium Chloride 1,000 mls @ 100 mls/hr 10/29/21 04:45 10/29/21 06:09 Saline 0.9% IV 150 mls/hr .Q10H ROBERTO Administration Lactulose 30 gm 10/29/21 09:00 10/29/21 08:28 Lactulose 20 Gm/30 Ml Cup PO Not Given BID [facility] Lorazepam 2 mg 10/29/21 14:09 Lorazepam 1 Mg Tab PO DAILY PRN Anxiety Lorazepam 1 mg 10/29/21 20:00 Lorazepam 1 Mg Tab PO TID@0700,1199,1999 [facility] Naloxone HCl 0.2 mg 10/29/21 04:45 Naloxone 0.4 Mg/Ml 1 Ml Vial IV Q2M PRN Opioid Reversal Nystatin 1 applic 10/29/21 08:55 Nystatin 100,000 Unit/Gm Powd 15 Gm TOPICAL DAILY PRN Rash Protocol Ondansetron HCl 4 mg 10/29/21 04:45 Ondansetron 4 Mg/2 Ml Vial IVP Q8HR PRN Nausea And Vomiting Oxybutynin Chloride 5 mg 10/29/21 16:00 Oxybutynin Chloride 5 Mg Tab PO TID@0700,1599,1999 [facility] Pantoprazole Sodium 40 mg 10/30/21 07:30 Pantoprazole 40 Mg Tablet PO [id number] [facility] Pregabalin 75 mg 10/30/21 07:00 Pregabalin 75 Mg Cap PO DAILY@0700 [facility] Primidone 50 mg 10/30/21 07:00 Primidone 50 Mg Tab PO DAILY@0700 [facility] Triamcinolone Acetonide 1 applic 10/29/21 20:00 Triamcinolone 0.1% Cream 80 Gm Tube TOPICAL BID@699,1999 [facility] Intake and Output 10/28/21 10/29/21 10/29/21 22:59 06:59 14:59 Output Total 300 800 Balance -300 -800 Output: Urine 300 800 Uretheral (Zepeda) 300 Other: Weight 79.379 kg 79.379 kg Patient Weight 10/30/21 06:59 Weight 79.379 kg 10/29/21 01:32 03/01/22 01:32
[2021-10-29] MEDS ORDERED: LORazepam 1 MG TAB PO PRN (14:09)
--- NOTE | 2021-10-29 14:14 | P.HPIM ---
History of Present Illness H&P Date: 10/29/21 This is a pleasant 51-year-old male presents to the by EMS with multiple episodes of syncope prior to arrival. Blood pressure on arrival patient was hypotensive in the 70s over 50s, dropped as low as 67/33. Also significant nausea vomiting and diarrhea, patient had a fecal management system place throughout the evening. Cdif negative, COVID negative. Patient received 3 L fluid bolus with IV fluids running 150 per hour as well as received a dose of lactulose for elevated ammonia. Patient has a past medical history of syncope who was evaluated in the about a month ago as well, at that time patient was found to be hypoglycemic and discharged back to the [facility] with stable blood sugars. Patient follows with Dr. Robles Valenzuela in the primary care setting, past medical history significant for CVA TIA with significant left-sided deficits, diabetes mellitus, hypertension, autism, intellectual impairment. Patient [facility] a detention. Home medications include clozapine, p rimidone, Lyrica, [place], Ativan as needed, enalapril, Celexa, Sinemet, Cogentin, Lipitor, aspirin and Abilify. Patient admitted to the hospital with consult placed to cardiology. Head cervical spine CT shows mild stable atrophy with no acute abnormality and no change compared to old exam. Negative computed tomography scan of the cervical spine with mild spur formation but no fracture. Chest CTA shows no evidence for pulmonary embolism, dilated thoracic esophagus with fluid levels and also dilated stomach. This could relate to reflux disease or other esophageal dysfunction. EKG reviewed shows normal sinus rhythm with a heart rate of 79, QT [address] or T-wave abnormalities. Labs on admission white count 11.5, hemoglobin 11.8, d-dimer 1.82, BUN 25, creatinine 1.14, glucose 119, magnesium 2.7, troponin levels are negative 2, ammonia level 41, urinalysis negative for infection, C. diff negative. Patient is afebrile, heart rate 95, blood pressure 101/67, 97% room air. Unable to complete a full review of systems due to patients current mental status. Patient is a poor historian. PHYSICAL EXAMINATION: GENERAL: The patient is alert and oriented x1, not in any acute distress. Well developed, well nourished. HEENT: Pupils are round and equally reacting to light. EOMI. No scleral icterus. No conjunctival pallor. Normocephalic, atraumatic. No pharyngeal erythema. No thyromegaly. CARDIOVASCULAR: S1 and S2 present. No murmurs, rubs, or gallops. PULMONARY: Chest is clear to auscultation, no wheezing or crackles. ABDOMEN: Soft, tender, nondistended, hyperactive bowel sounds. No palpable organomegaly. FMS in place with brown liquid stool present in collection bag. MUSCULOSKELETAL: No joint swelling or deformity. EXTREMITIES: No cyanosis, clubbing, or pedal edema. NEUROLOGICAL: Gross neurological examination did not reveal any focal deficits. SKIN: No rashes. Assessment and plan Assessment Syncope with loss of consciousness, hypotensive on admission from severe dehydration secondary to vomiting, diarrhea Nausea Vomiting Diarrhea, most likely gastroenteritis, with FMS in place, C Dif negative, COVID pending History of CVA TIA History diabetes mellitus type 2, diet controlled History hypertension, hypotensive on admission with a blood pressure in the 70s History autism History of intellectual impairment GI Prophylaxis Protonix DVT Prophylaxis Subcu heaprin Full Code Plan Cardiology consultation Echo pending Orthos Qshift Resume appropriate home medications IV fluids AM labs Monitor overnight prognosis guarded Past Medical History Past Medical History: CVA/TIA, Diabetes Mellitus, Hypertension Additional Past Medical History / Comment(s): Pt recently admitted to [facility] on 02/20/20 with R intrinsic hand muscle weakness/possible L vertebral artery stenosis/thrombocytopenia. Other hx: Diet controlled diabetes, autism, intellectual impairment History of Any Multi-Drug Resistant Organisms: None Reported Past Surgical History: No Surgical Hx Reported Additional Past Surgical History / Comment(s): BROTHER STATED NO KNOWN SX Past Anesthesia/Blood Transfusion Reactions: Unable to Obtain Additional Past Anesthesia/Blood Transfusion Reaction / Comment(s): NEVER HAD ANY SX Past Psychological History: No Psychological Hx Reported Smoking Status: Never smoker Past Alcohol Use History: None Reported Past Drug Use History: None Reported - Past Family History Father Family Medical History: Cancer Additional Family Medical History / Comment(s): COLON CANCER Mother Family Medical History: Cancer, Diabetes Mellitus, Hypertension Additional Family Medical History / Comment(s): OBESITY, FROM METASTATIC KINDEY CANCER Medications and Allergies Home Medications Medication Instructions Recorded Confirmed Type ARIPiprazole 15 mg PO BID@0700,199907/29/18 10/29/21 History Benztropine Mesylate [Cogentin] 0.5 mg PO TID@0700,1200,199907/29/18 10/29/21 History Citalopram Hydrobromide [CeleXA] 40 mg PO DAILY@0700 07/29/18 10/29/21 History Enalapril [Vasotec] 5 mg PO DAILY@0700 07/29/18 10/29/21 History LORazepam [Ativan] 1 mg PO TID@0700,1200,199907/29/18 10/29/21 History cloZAPine [Clozaril] 100 mg PO BID@0700,1600 02/20/20 10/29/21 History Aspirin EC [Ecotrin Low Dose] 81 mg PO DAILY@0700 07/31/21 10/29/21 History Atorvastatin Calcium [Lipitor] 10 mg PO HS@199907/31/21 10/29/21 History Carbidopa-Levodopa 10-100 mg 1 tab PO TID@0700,1600,199907/31/21 10/29/21 History [Sinemet 10-100 mg] Melatonin 10 mg PO HS@199907/31/21 10/29/21 History Oxybutynin Chloride [Ditropan] 5 mg PO TID@0700,1600,199907/31/21 10/29/21 History Pregabalin [Lyrica] 75 mg PO DAILY@0707/31/21 10/29/21 History Primidone [Mysoline] 50 mg PO DAILY@0700 07/31/21 10/29/21 History Cholecalciferol [Vitamin D3 (25 50 mcg PO DAILY@69910/29/21 10/29/21 History Mcg = 1000 Iu)] Hydrocortisone Cream 1 applic TOPICAL BID@699,199910/29/21 10/29/21 History [Hydrocortisone 2.5% Cream] LORazepam [Ativan] 2 mg PO DAILY PRN 10/29/21 10/29/21 History Nystatin [Nystop] 1 applic TOPICAL DAILY PRN 10/29/21 10/29/21 History Allergies Allergy/AdvReac Type Severity Reaction Status Date / Time No Known Allergies Allergy Verified 10/29/21 08:18 Physical Exam Vitals: Vital Signs Temp Pulse Resp BP Pulse Ox 10/29/21 07:40 95 16 101/67 97 10/29/21 06:45 82 18 112/75 95 10/29/21 06:02 85 18 103/57 98 10/29/21 04:49 82 18 90/49 98 10/29/21 03:40 88 18 108/63 98 10/29/21 03:00 84 18 107/51 98 10/29/21 02:45 88 18 67/33 96 10/29/21 02:30 84 18 67/34 98 10/29/21 02:15 76 18 71/53 99 10/29/21 01:10 97.8 F 76 18 103/63 100 Intake and Output 10/28/21 10/29/21 10/29/21 22:59 06:59 14:59 Output Total 300 Balance -300 Output: Urine 300 Uretheral (Zepeda) 300 Other: Weight 79.379 kg Results CBC & Chem 7: 10/29/21 01:32 10/29/21 01:32 Labs: Abnormal Lab Results - Last 24 Hours (Table) 10/29/21 10/29/21 10/29/21 Range/Units 01:32 01:32 01:32 WBC 11.5 H (3.8-10.6) k/uL Hgb 11.8 L (13.0-17.5) gm/dL Hct 37.3 L (39.0-53.0) % Plt Count 143 L (150-450) k/uL Neutrophils # 9.8 H (1.3-7.7) k/uL D-Dimer 1.82 H (<0.60) mg/L FEU BUN 25 H (9-20) mg/dL Glucose 119 H (74-99) mg/dL Phosphorus 4.6 H (2.5-4.5) mg/dL Magnesium 2.7 H (1.6-2.3) mg/dL Ammonia (<30) umol/L Urine Protein (Negative) Urine Blood (Negative) Calcium Oxalate Crystal (None) /hpf Urine Bacteria (None) /hpf Hyaline Casts (0-2) /lpf Urine Mucus (None) /hpf 10/29/21 10/29/21 Range/Units 04:04 05:48 WBC (3.8-10.6) k/uL Hgb (13.0-17.5) gm/dL Hct (39.0-53.0) % Plt Count (150-450) k/uL Neutrophils # (1.3-7.7) k/uL D-Dimer (<0.60) mg/L FEU BUN (9-20) mg/dL Glucose (74-99) mg/dL Phosphorus (2.5-4.5) mg/dL Magnesium (1.6-2.3) mg/dL Ammonia 41 H (<30) umol/L Urine Protein Trace H (Negative) Urine Blood Trace H (Negative) Calcium Oxalate Crystal Occasional H (None) /hpf Urine Bacteria Rare H (None) /hpf Hyaline Casts 13 H (0-2) /lpf Urine Mucus Rare H (None) /hpf Assessment and Plan Time with Patient: Greater than 30
[2021-10-29] MEDS: cloZAPine 100 MG TAB PO SCH (16:22)
[2021-10-29] MEDS: CARBIDOPA-LEVODOPA 10-100 MG 1 EACH TAB PO SCH (16:22)
[2021-10-29] MEDS: OXYBUTYNIN CHLORIDE 5 MG TAB PO SCH (16:22)
[2021-10-29] MEDS ORDERED: LORazepam 1 MG TAB PO SCH (20:00)
--- NOTE | 2021-10-29 22:22 | CT ---
EXAMINATION TYPE: CT abdomen pelvis wo con DATE OF EXAM: 10/29/2021 COMPARISON: 07/31/2021 HISTORY: abdominal pain, vomiting CT DLP: 929.1 mGycm Automated exposure control for dose reduction was used. Images obtained from the diaphragm to the floor the pelvis with no contrast. Lung bases show mild subsegmental atelectasis. There is markedly dilated fluid-filled stomach. There are multiple dilated small bowel loops with a f ew fluid levels. Small bowel measures up to 4.5 cm. Spleen is intact. There is no pancreatic mass. There is large amount of portal venous air throughout the liver. There is intramural air in the stoma ch and in the small bowel in the mid abdomen. No free air in the peritoneal cavity identified. There is no adrenal mass. Kidneys have normal size. There is no hydronephrosis. There are bilateral s mall renal calculi up to 5 mm. There is no sign of retroperitoneal adenopathy. There is Zepeda cathete r in the urinary bladder. There is retained fecal material and some fluid in the rectum. Transition p oint of small bowel not identified. There is single 2 cm calcified gallstone. Question not appear dil ated. The lumbar spine is intact. There are spondylotic changes in the lower lumbar spine. The bony pelvis is intact. The hip joints are intact. No evidence of hip fracture. IMPRESSION: Extensive portal venous air. Extensive pneumatosis involving stomach and small bowel. Dilated small b owel and stomach is consistent with significant ileus. Transition point not seen. Mechanical bowel ob struction not entirely excluded but I think is unlikely. Gangrenous bowel and stomach should be consi dered. No free air.
[2021-10-29] MEDS ORDERED: SODIUM CHLORIDE 0.9% 500 ML 500 ML IV ONE (22:52)
[2021-10-30] MEDS: TRIAMCINOLONE 0.1% CREAM 80 GM TUBE TOPICAL SCH ×3 (00:52→20:44)
[2021-10-30] MEDS: CARBIDOPA-LEVODOPA 10-100 MG 1 EACH TAB PO SCH ×4 (00:52→20:45)
[2021-10-30] MEDS: OXYBUTYNIN CHLORIDE 5 MG TAB PO SCH ×4 (00:52→20:45)
[2021-10-30] MEDS: LACTULOSE 20 GM/30 ML CUP PO SCH ×3 (00:52→20:45)
[2021-10-30] MEDS: ARIPiprazole 15 MG TAB PO SCH ×3 (00:53→20:45)
[2021-10-30] MEDS: HEPARIN SODIUM,PORCINE/PF 5,000 UNIT/0.5 ML SYRINGE SQ SCH ×3 (00:53→20:43)
[2021-10-30] MEDS: ATORVASTATIN 10 MG TAB PO SCH ×2 (00:53→20:45)
[2021-10-30] MEDS: BENZTROPINE MESYLATE 0.5 MG TAB PO SCH ×4 (00:53→20:45)
[2021-10-30] MEDS: SODIUM CHLORIDE 0.9% 1,000 ML IV SCH ×3 (00:53→16:50)
[2021-10-30 06:53] LABS: Magnesium 2.6 mg/dL (1.6-2.3); Phosphorus 5.7 mg/dL (2.5-4.5); Potassium 4.5 mmol/L (3.5-5.1); Total Bilirubin 0.6 mg/dL (0.2-1.3); Total Protein 5.7 g/dL (6.3-8.2)
[2021-10-30 07:11] LABS: Basophils % (A) 0 %; Eosinophils % (A) 0 %; HGB 13.4 gm/dL (13.0-17.5); Hypochromasia Marked; Lymphocytes # (A) 0.4 k/uL (1.0-4.8); Lymphocytes % (A) 5 %; MCH 25.9 pg (25.0-35.0); MCHC 29.8 g/dL (31.0-37.0); Mean Platelet Volume 10.3; Monocytes # (A) 0.4 k/uL (0-1.0); Monocytes % (A) 6 %; Neutrophils # (A) 6.5 k/uL (1.3-7.7); Neutrophils % (A) 87 %; Platelet Count 184 k/uL (150-450); RBC 5.18 m/uL (4.30-5.90); RDW 14.4 % (11.5-15.5); WBC 7.4 k/uL (3.8-10.6)
[2021-10-30] MEDS ORDERED: PANTOPRAZOLE 40 MG TABLET PO SCH (07:30)
[2021-10-30] MEDS ORDERED: SODIUM CHLORIDE 0.9% 500 ML 500 ML IV ONE (09:23)
[2021-10-30] MEDS: ONDANSETRON 4 MG/2 ML VIAL IVP PRN (09:30)
[2021-10-30 09:50] LABS: Glucose,Whole Blood 79 mg/dL (75-99)
[2021-10-30] MEDS ORDERED: SODIUM CHLORIDE 0.9% 2,000 ML IV ONE (09:54)
--- NOTE | 2021-10-30 10:10 | XR ---
EXAMINATION TYPE: XR chest 1V portable DATE OF EXAM: 10/30/2021 COMPARISON: X-ray dated 07/31/2021 HISTORY: Shortness of breath, tachypnea TECHNIQUE: Single frontal view of the chest is obtained. FINDINGS: Questionable minimal left basal pulmonary atelectasis. Clear remainder of the lungs. No sizable pleur al effusion or definite pneumothorax. Suspected COPD changes. No gross cardiomegaly. Marked distention of the stomach, gastric pneumatosis cannot be excluded. Gaseous distention of the c olonic hepatic flexure, seen underneath the right hemidiaphragm. Degenerative changes of the thoracic spine. IMPRESSION: 1. No obvious acute pulmonary abnormality. 2. Markedly distended stomach, gastric pneumatosis cannot be excluded.
[2021-10-30] MEDS ORDERED: NOREPINEPHRINE 4 MG in SODIUM CHLORIDE 0.9% 250 ML IV SCH (10:15)
--- NOTE | 2021-10-30 10:22 | P.GSCN ---
History of Present Illness Consult date: 10/30/21 History of present illness: CHIEF COMPLAINT: Syncope Reason for consult ileus versus mechanical small bowel obstruction HISTORY OF PRESENT ILLNESS: This is a 51-year-old male with known developmental delay and autism. Patient is a poor historian. Patient presented to the hospital with multiple syncopal episodes. Per chart patient had been having nausea vomiting and diarrhea. Patient had been vomiting stool. They were unable to get an NG tube placed in the ER. There were concerns of ileus or mechanical small bowel obstruction on CAT scan. Patient has now become hypotensive, has elevated respiratory rate and tachycardic. White count on admission was 11.5-7.4 lactic 1.1. He is receiving fluid boluses. NG tube was able to be inserted on the floor by Dr. Torres. She reports that there was ion red blood. She's ordered a unit of blood. Patient will be transferred to the ICU. No prior abdominal surgeries. Also noted that patient has not urinated in 24 hours. He did have a large bowel movement last night. Patient seen and examined with Dr. jay PAST MEDICAL HISTORY: CVA, diabetes, hypertension, autism, intellectual. PAST SURGICAL HISTORY: None MEDICATIONS: See list. ALLERGIES: See list. SOCIAL HISTORY: No illicit drug use. REVIEW OF SYSTEMS: CONSTITUTIONAL: Denies fever or chills. HEENT: Denies blurred vision, vision changes, or eye pain. Denies hemoptysis CARDIOVASCULAR: Denies chest pain or pressure. RESPIRATORY: No shortness of breath. GASTROINTESTINAL: See HPI for pertinent findings HEMATOLOGIC: Denies bleeding disorders. GENITOURINARY: Denies any blood in urine or increased urinary frequency. SKIN: Denies pruitis. Denies rash. PHYSICAL EXAM: VITAL SIGNS: Reviewed GENERAL: Patient is pale HEENT: No sclera icterus. Extraocular movements grossly intact. Moist buccal mucosa. Head is atraumatic, normocephalic. No nasal drainage. ABDOMEN: Soft. Mildly distended. Tenderness with palpation of the upper and mid abdomen. NEUROLOGIC: Patient is awake and alert LABORATORY DATA: WBC 11.5 down to 7.4 hemoglobin 13.4 platelets 184 Sodium 140 potassium 4.5 creatinine is up from 1.14-2.61 IMAGING: CT of abdomen and pelvis demonstrates extensive portal venous air. Extensive pneumatosis involving stomach and small bowel. Dilated small bowel and stomach consistent with significant ileus. Transition point not seen. Mechanical bowel obstruction not entirely excluded but I think it is unlikely. Gangrenous bowel and stomach should be considered. No free air. Chest x-ray markedly distended stomach, gastric pneumatosis cannot be excluded. ASSESSMENT: 1. Abdominal pain 2. Dilated small bowel and stomach consistent with significant ileus. Mechanical small bowel obstruction not excluded. Noted on CAT scan PLAN: -Further recommendations forthcoming per surgeon -Continue NG tube for decompression -Keep patient nothing by mouth -2 L IV fluid boluses ordered -Place Zepeda catheter -Agree with transfer to ICU [employer] note has been reviewed by physician. Signing provider agrees with the documented findings, assessment, and plan of care. Past Medical History Past Medical History: CVA/TIA, Diabetes Mellitus, Hypertension Additional Past Medical History / Comment(s): Pt recently admitted to [facility] on 02/20/20 with R intrinsic hand muscle weakness/possible L vertebral artery stenosis/thrombocytopenia. Other hx: Diet controlled diabetes, autism, intellectual impairment History of Any Multi-Drug Resistant Organisms: None Reported Past Surgical History: No Surgical Hx Reported Additional Past Surgical History / Comment(s): BROTHER STATED NO KNOWN SX Past Anesthesia/Blood Transfusion Reactions: Unable to Obtain Additional Past Anesthesia/Blood Transfusion Reaction / Comm: NEVER HAD ANY SX Past Psychological History: No Psychological Hx Reported Smoking Status: Never smoker Past Alcohol Use History: None Reported Past Drug Use History: None Reported - Past Family History Father Family Medical History: Cancer Additional Family Medical History / Comment(s): COLON CANCER Mother Family Medical History: Cancer, Diabetes Mellitus, Hypertension Additional Family Medical History / Comment(s): OBESITY, FROM METASTATIC KINDEY CANCER Medications and Allergies Home Medications Medication Instructions Recorded Confirmed Type ARIPiprazole 15 mg PO BID@0700,199907/29/18 10/29/21 History Benztropine Mesylate [Cogentin] 0.5 mg PO TID@0700,1199,199907/29/18 10/29/21 History Citalopram Hydrobromide [CeleXA] 40 mg PO DAILY@0700 07/29/18 10/29/21 History Enalapril [Vasotec] 5 mg PO DAILY@0700 07/29/18 10/29/21 History LORazepam [Ativan] 1 mg PO TID@0700,1200,199907/29/18 10/29/21 History cloZAPine [Clozaril] 100 mg PO BID@0700,1600 02/20/20 10/29/21 History Aspirin EC [Ecotrin Low Dose] 81 mg PO DAILY@0707/31/21 10/29/21 History Atorvastatin Calcium [Lipitor] 10 mg PO HS@199907/31/21 10/29/21 History Carbidopa-Levodopa 10-100 mg 1 tab PO TID@0700,1599,199907/31/21 10/29/21 History [Sinemet 10-100 mg] Melatonin 10 mg PO HS@199907/31/21 10/29/21 History Oxybutynin Chloride [Ditropan] 5 mg PO TID@0700,1599,199907/31/21 10/29/21 History Pregabalin [Lyrica] 75 mg PO DAILY@0707/31/21 10/29/21 History Primidone [Mysoline] 50 mg PO DAILY@0700 07/31/21 10/29/21 History Cholecalciferol [Vitamin D3 (25 50 mcg PO DAILY@69910/29/21 10/29/21 History Mcg = 1000 Iu)] Hydrocortisone Cream 1 applic TOPICAL BID@699,199910/29/21 10/29/21 History [Hydrocortisone 2.5% Cream] LORazepam [Ativan] 2 mg PO DAILY PRN 10/29/21 10/29/21 History Nystatin [Nystop] 1 applic TOPICAL DAILY PRN 10/29/21 10/29/21 History Allergies Allergy/AdvReac Type Severity Reaction Status Date / Time No Known Allergies Allergy Verified 10/29/21 08:18 Surgical - Exam Vital Signs Temp Pulse Resp BP Pulse Ox 97.8 F 76 18 103/63 100 10/29/21 01:10 10/29/21 01:10 10/29/21 01:10 10/29/21 01:10 10/29/21 01:10 Results - Labs 10/30/21 06:11 10/30/21 06:11 Abnormal Lab Results - Last 24 Hours (Table) 10/30/21 10/30/21 Range/Units 06:11 06:11 MCHC 29.8 L (31.0-37.0) g/dL Lymphocytes # 0.4 L (1.0-4.8) k/uL Chloride 114 H (98-107) mmol/L Carbon Dioxide 16 L (22-30) mmol/L BUN 35 H (9-20) mg/dL Creatinine 2.61 H (0.66-1.25) mg/dL Glucose 104 H (74-99) mg/dL Phosphorus 5.7 H (2.5-4.5) mg/dL Magnesium 2.6 H (1.6-2.3) mg/dL AST 88 H (17-59) U/L Total Protein 5.7 L (6.3-8.2) g/dL Albumin 3.0 L (3.5-5.0) g/dL Diabetes panel 10/30/21 Range/Units 06:11 Sodium 140 (137-145) mmol/L Potassium 4.5 (3.5-5.1) mmol/L Chloride 114 H (98-107) mmol/L Carbon Dioxide 16 L (22-30) mmol/L BUN 35 H (9-20) mg/dL Creatinine 2.61 H (0.66-1.25) mg/dL Glucose 104 H (74-99) mg/dL Calcium 9.0 (8.4-10.2) mg/dL AST 88 H (17-59) U/L ALT 21 (4-49) U/L Alkaline Phosphatase 56 (38-126) U/L Total Protein 5.7 L (6.3-8.2) g/dL Albumin 3.0 L (3.5-5.0) g/dL Calcium panel 10/30/21 Range/Units 06:11 Calcium 9.0 (8.4-10.2) mg/dL Phosphorus 5.7 H (2.5-4.5) mg/dL Albumin 3.0 L (3.5-5.0) g/dL Pituitary panel 10/30/21 Range/Units 06:11 Sodium 140 (137-145) mmol/L Potassium 4.5 (3.5-5.1) mmol/L Chloride 114 H (98-107) mmol/L Carbon Dioxide 16 L (22-30) mmol/L BUN 35 H (9-20) mg/dL Creatinine 2.61 H (0.66-1.25) mg/dL Glucose 104 H (74-99) mg/dL Calcium 9.0 (8.4-10.2) mg/dL Adrenal panel 10/30/21 Range/Units 06:11 Sodium 140 (137-145) mmol/L Potassium 4.5 (3.5-5.1) mmol/L Chloride 114 H (98-107) mmol/L Carbon Dioxide 16 L (22-30) mmol/L BUN 35 H (9-20) mg/dL Creatinine 2.61 H (0.66-1.25) mg/dL Glucose 104 H (74-99) mg/dL Calcium 9.0 (8.4-10.2) mg/dL Total Bilirubin 0.6 (0.2-1.3) mg/dL AST 88 H (17-59) U/L ALT 21 (4-49) U/L Alkaline Phosphatase 56 (38-126) U/L Total Protein 5.7 L (6.3-8.2) g/dL Albumin 3.0 L (3.5-5.0) g/dL
[2021-10-30 10:30] LABS: Glucose,Whole Blood 95 mg/dL (75-99)
[2021-10-30 10:31] LABS: HCT 39.9 % (39.0-53.0); HGB 11.7 gm/dL (13.0-17.5); Hypochromasia Marked; MCH 25.9 pg (25.0-35.0); MCHC 29.3 g/dL (31.0-37.0); MCV 88.2 fL (80.0-100.0); Mean Platelet Volume 9.8; Platelet Count 159 k/uL (150-450); RBC 4.53 m/uL (4.30-5.90); RDW 14.4 % (11.5-15.5); WBC 5.7 k/uL (3.8-10.6)
--- NOTE | 2021-10-30 10:37 | P.EN ---
A- team: Indication: Hypotension Arrived on Scene to find: patient lyle and diaphoretic with BP 60/40 Patient seen and examined at bedside. Patient with developmental delay. He complains of a lujan-lujan in his belly and is dry heaviny. Per nursing Dr. Toussaint ordered NGT and Zepeda with 2L bolus when he was in to see the patient. Vital signs reviewed General: Ill-appearing, moderate distress, appears at stated age Derm: Pale, diaphoretic warm, dry Head: atraumatic, normocephalic, symmetric Eyes: EOMI, no lid lag, anicteric sclera Mouth: no lip lesion, mucus membranes moist Cardiovascular: S1S2 tachycardiac, no murmur, positive posterior tibial pulse bilateral, Lungs: Decreased bs b/l bilateral, no rhonchi, no rales , no accessory muscle use Abdominal: soft, Guardining of Abdomen, + pain to palpation of epigastric area Psych: Awake alert, answering simple questions Assessment: Extensive pnemotosis with ileus Extensive port venous air GI bleed Hypovolemia Shock Intellectual impairment Autism Plan: 2L NS Stat CBC, CMP, PT/PTT, LActi aicd, Type and cross stat unti pRBC and 1 more routine Levophed on ZOsyn 2nd IV placed NGT- ion blood on return Contacted Dr. Harvey who appeared at bedside Dr. Melendez over the phone alerted to ion blood in the NGT Anabelle Vasquez Disposition: Transfer to ICU Notified: Nursing will notify Brother MELIZA A Total of 37 minutes of critical care time was spent on the complex care of this patient. Exclusive of the care rendered by Dr. Harvey after d
[2021-10-30 10:41] LABS: INR 1.2 (<1.2); Partial Thromboplastin Time 25.2 sec (22.0-30.0); Prothrombin Time 12.7 sec (9.0-12.0)
[2021-10-30 10:44] LABS: Albumin 2.4 g/dL (3.5-5.0); Calcium 8.3 mg/dL (8.4-10.2); Potassium 4.5 mmol/L (3.5-5.1); Total Bilirubin 0.6 mg/dL (0.2-1.3); Total Protein 4.6 g/dL (6.3-8.2)
[2021-10-30] MEDS: ASPIRIN 81 MG PO SCH (10:51)
[2021-10-30] MEDS: PRIMIDONE 50 MG TAB PO SCH (10:52)
[2021-10-30] MEDS: PREGABALIN 75 MG CAP PO SCH (10:52)
[2021-10-30] MEDS: cloZAPine 100 MG TAB PO SCH ×2 (10:52→16:49)
[2021-10-30] MEDS: CITALOPRAM HYDROBROMIDE 20 MG TAB PO SCH (10:52)
[2021-10-30] MEDS: CHOLECALCIFEROL 25 MCG (1000 IU) TABLET PO SCH (10:52)
[2021-10-30] MEDS: PIPERACILLIN-TAZOBACTAM 3.375 GM in SODIUM CHLORIDE 0.9% 100 ML IVPB SCH ×2 (11:01→17:01)
--- NOTE | 2021-10-30 11:54 | P.CNPUL ---
History of Present Illness Consult date: 10/30/21 Chief complaint: Abdominal pain History of present illness: I was asked to evaluate this patient for an acute abdomen and the patient was being transferred to the intensive care unit for further management. This patient is mentally challenged and his not been a good reliable historian. He came into the hospital because of abdominal pain. This morning, the patient was found to be hypotensive and a critically care team was activated. Patient's BP was 60/40. He was awake at the bedside. His abdomen was distended and was quite tender in was still complaining of pain in his abdomen and he was having dry heaves. ABG was inserted and the patient had bloody output from the NG tube in order of 700 mL immediately. A total of 2 L of IV fluid bolus was given and the patient remains hypotensive and following that the patient was ordered to restart her norepinephrine infusion and the patient will be transferred to the intensive care unit. Unit of packed RBC was also ordered for this patient. General surgeries on the case as the patient had a acute abdomen and the CAT scan of the abdomen was done earlier on 10/29/2021 showed extensive portal venous gas, extensive pneumatosis involving the stomach and small bowel, dilated small bowel and stomach consistent with significant ileus. No transition point was seen. There was bilateral renal calculi up to 5 mm. No signs of any retroperitoneal lymphadenopathy. Note that this morning, the patient's white cell count is at 5.7 with a hemoglobin of 11.7. Serum bicarb is down to 12. The lactic acid level was as high as 7.5, the patient had a BUN of 39 and a creatinine of 2.8 consistent with AK I and the patient had normal LFTs. Normal coagulation profile. Started on IV Zosyn. CT of the chest that was done at time of admission showed no evidence of any pulmonary embolism. There was dilatation of the thoracic esophagus with fluid levels and dilated stomach. Recent echocardiogram from January 2020 showed a normal ejection fraction. Comorbid conditions include intellectual limitation and retardation mentally in addition CVA, diabetes mellitus and hypertension. Review of Systems ROS unobtainable: due to mental status Past Medical History Past Medical History: CVA/TIA, Diabetes Mellitus, Hypertension Additional Past Medical History / Comment(s): Pt recently admitted to [facility] on 02/20/20 with R intrinsic hand muscle weakness/possible L vertebral artery stenosis/thrombocytopenia. Other hx: Diet controlled diabetes, autism, intellectual impairment History of Any Multi-Drug Resistant Organisms: None Reported Past Surgical History: No Surgical Hx Reported Additional Past Surgical History / Comment(s): BROTHER STATED NO KNOWN SX Past Anesthesia/Blood Transfusion Reactions: Unable to Obtain Additional Past Anesthesia/Blood Transfusion Reaction / Comment(s): NEVER HAD ANY SX Past Psychological History: No Psychological Hx Reported Smoking Status: Never smoker Past Alcohol Use History: None Reported Past Drug Use History: None Reported - Past Family History Father Family Medical History: Cancer Additional Family Medical History / Comment(s): COLON CANCER Mother Family Medical History: Cancer, Diabetes Mellitus, Hypertension Additional Family Medical History / Comment(s): OBESITY, FROM METASTATIC KINDEY CANCER Medications and Allergies Home Medications Medication Instructions Recorded Confirmed Type ARIPiprazole 15 mg PO BID@0700,199907/29/18 10/29/21 History Benztropine Mesylate [Cogentin] 0.5 mg PO TID@0700,1200,199907/29/18 10/29/21 History Citalopram Hydrobromide [CeleXA] 40 mg PO DAILY@0700 07/29/18 10/29/21 History Enalapril [Vasotec] 5 mg PO DAILY@0700 07/29/18 10/29/21 History LORazepam [Ativan] 1 mg PO TID@0700,1200,199907/29/18 10/29/21 History cloZAPine [Clozaril] 100 mg PO BID@0700,1600 02/20/20 10/29/21 History Aspirin EC [Ecotrin Low Dose] 81 mg PO DAILY@0700 07/31/21 10/29/21 History Atorvastatin Calcium [Lipitor] 10 mg PO HS@199907/31/21 10/29/21 History Carbidopa-Levodopa 10-100 mg 1 tab PO TID@0700,1600,199907/31/21 10/29/21 History [Sinemet 10-100 mg] Melatonin 10 mg PO HS@199907/31/21 10/29/21 History Oxybutynin Chloride [Ditropan] 5 mg PO TID@0700,1600,199907/31/21 10/29/21 History Pregabalin [Lyrica] 75 mg PO DAILY@0700 07/31/21 10/29/21 History Primidone [Mysoline] 50 mg PO DAILY@69907/31/21 10/29/21 History Cholecalciferol [Vitamin D3 (25 50 mcg PO DAILY@69910/29/21 10/29/21 History Mcg = 1000 Iu)] Hydrocortisone Cream 1 applic TOPICAL BID@10/29/21 10/29/21 History [Hydrocortisone 2.5% Cream] LORazepam [Ativan] 2 mg PO DAILY PRN 10/29/21 10/29/21 History Nystatin [Nystop] 1 applic TOPICAL DAILY PRN 10/29/21 10/29/21 History Allergies Allergy/AdvReac Type Severity Reaction Status Date / Time No Known Allergies Allergy Verified 10/29/21 08:18 Physical Exam Vitals: Vital Signs Temp Pulse Pulse Pulse Resp BP BP 10/30/21 10:08 97.6 F 120 H 84/57 10/30/21 09:45 69/51 10/30/21 09:10 97.2 F L 122 H 44 H 72/42 10/30/21 04:00 97.6 F 115 H 18 107/63 10/30/21 02:00 100 18 10/30/21 00:00 98.1 F 100 18 98/53 10/29/21 22:00 97.7 F 100 18 94/52 10/29/21 21:49 84 18 112/74 10/29/21 18:30 98.3 F 98 18 113/67 10/29/21 16:23 93 18 117/76 10/29/21 14:31 98.3 F 96 18 121/76 Pulse Ox 10/30/21 10:08 95 10/30/21 09:45 10/30/21 09:10 98 10/30/21 04:00 97 10/30/21 02:00 10/30/21 00:00 95 10/29/21 22:00 97 10/29/21 21:49 96 10/29/21 18:30 96 10/29/21 16:23 100 10/29/21 14:31 100 Intake and Output 10/29/21 10/30/21 10/30/21 22:59 06:59 14:59 Intake Total 2330 Output Total 300 580 Balance -300 1750 Intake: IV 2330 Invasive Line 5 10 Invasive Line 6 20 Sodium Chloride 0.9% 1, 300 000 ml @ 100 mls/hr IV . Q10H [facility] Rx#:[id number] Sodium Chloride 0.9% 2, 2000 000 ml @ 999 mls/hr IV . Q2H1M ONE Rx#:[id number] Oral 0 Tube Feeding 0 Blood Product 0 Output: Gastric Drainage 550 Urine 300 30 Uretheral (Zepeda) 300 30 Stool 0 Urine/Stool Mix 0 Emesis 0 Oral Regurgitation 0 Other: Voiding Method Bedside Commode Toilet Diaper Bedside Commode Diaper # Voids 0 # Bowel Movements 0 The patient is awake and alert and following commands. Unable to communicate. Not conversing much and not able to provide a reliable history. MHead exam was generally normal. There was no scleral icterus or corneal arcus. Mucous membranes were moist Neck was supple and without jugular venous distension, thyromegaly, or carotid bruits. Carotids were easily palpable bilaterally. There was no adenopathy. Lungs were clear to auscultation and percussion, and with normal diaphragmatic excursion. No wheezes or rales were noted. Cardiac exam revealed the PMI to be normally situated and sized. The rhythm was regular and no extrasystoles were noted during several minutes of auscultation. The first and second heart sounds were normal and physiologic splitting of the second heart sound was noted. There were no murmurs, rubs, clicks, or gallops. Abdomen is distended. Tender. Bowel sounds hypoactive and they're not present. NG tube is in place for gastric decompression. Examination of the extremities revealed easily palpable radial, femoral and pedal pulses. There was no cyanosis, clubbing or edema. Examination of the skin revealed no evidence of significant rashes, suspicious appearing nevi or other concerning lesions. Neurologically the patient is moving all 4 extremities. No limitations. Pupils are equal and reactive to light. Limited functional impaired obviously, his m ental retardation. Results - Laboratory Findings CBC and BMP: 10/30/21 10:20 10/30/21 10:20 PT/INR, D-dimer PT 12.7 sec (9.0-12.0) H 10/30/21 10:14 INR 1.2 (<1.2) H 10/30/21 10:14 D-Dimer 1.82 mg/L FEU (<0.60) H 10/29/21 01:32 Abnormal lab findings: Abnormal Labs 10/29/21 10/29/21 10/29/21 01:32 01:32 01:32 WBC 11.5 H Hgb 11.8 L Hct 37.3 L MCHC Plt Count 143 L Neutrophils # 9.8 H Lymphocytes # PT INR D-Dimer 1.82 H Chloride Carbon Dioxide BUN 25 H Creatinine Glucose 119 H Plasma Lactic Acid [place] Calcium Phosphorus 4.6 H Magnesium 2.7 H AST Ammonia Total Protein Albumin Urine Protein Urine Blood Calcium Oxalate Crystal Urine Bacteria Hyaline Casts Urine Mucus 10/29/21 10/29/21 10/30/21 04:04 05:48 06:11 WBC Hgb Hct MCHC 29.8 L Plt Count Neutrophils # Lymphocytes # 0.4 L PT INR D-Dimer Chloride Carbon Dioxide BUN Creatinine Glucose Plasma Lactic Acid [place] Calcium Phosphorus Magnesium AST Ammonia 41 H Total Protein Albumin Urine Protein Trace H Urine Blood Trace H Calcium Oxalate Crystal Occasional H Urine Bacteria Rare H Hyaline Casts 13 H Urine Mucus Rare H 10/30/21 10/30/21 10/30/21 06:11 09:31 10:14 WBC Hgb Hct MCHC Plt Count Neutrophils # Lymphocytes # PT 12.7 H INR 1.2 H D-Dimer Chloride 114 H Carbon Dioxide 16 L BUN 35 H Creatinine 2.61 H Glucose 104 H Plasma Lactic Acid [place] 7.5 H* Calcium Phosphorus 5.7 H Magnesium 2.6 H AST 88 H Ammonia Total Protein 5.7 L Albumin 3.0 L Urine Protein Urine Blood Calcium Oxalate Crystal Urine Bacteria Hyaline Casts Urine Mucus 10/30/21 10/30/21 10:20 10:20 WBC Hgb 11.7 L Hct MCHC 29.3 L Plt Count Neutrophils # Lymphocytes # PT INR D-Dimer Chloride 117 H Carbon Dioxide 12 L BUN 39 H Creatinine 2.80 H Glucose Plasma Lactic Acid [place] Calcium 8.3 L Phosphorus Magnesium AST 88 H Ammonia Total Protein 4.6 L Albumin 2.4 L Urine Protein Urine Blood Calcium Oxalate Crystal Urine Bacteria Hyaline Casts Urine Mucus - Diagnostic Findings CT scan - chest: image reviewed Assessment and Plan Plan: 1 acute abdomen. The patient presented with abdominal pain and the CAT scan of the abdomen showed significant abnormalities including extensive portal vein pneumatosis and significant dilatation of the small bowel and the stomach. NG tube was inserted. Awaiting a surgical evaluation. 2 acute hypotension, currently being resuscitated with IV fluids, antibiotics and pressors. Consider hypovolemic/septic event. 3 acute lactic acidosis 4 Developmental delay and autism 5 history of CVA 6 diabetes mellitus 7 hypertension Plan Transfer this patient immediately the intensive care unit Complete the 2 L bolus with normal saline IV Zosyn as an empiric antibiotic coverage Pressors if needed to maintain a mean artery pressure was 65 NG tube was inserted Monitor hemoglobin and the watch for in the upper or lower GI bleed Immediate surgical evaluation for possible expiratory laparotomy Monitor hemoglobin and transfuse if needed, 2 units of packed RBCs are ready Monitor lactic acid levels Keep the patient nothing by mouth for now We'll continue to follow. Condition is critical at this point in time.
--- NOTE | 2021-10-30 13:34 | XR ---
EXAMINATION TYPE: XR chest 1V confirm line [facility] DATE OF EXAM: 10/30/2021 COMPARISON: Chest x-ray same dated earlier time, CT 10/29/2021 HISTORY: Central venous catheter placement TECHNIQUE: Single frontal view of the chest is obtained. FINDINGS: This been interval placement of right jugular central venous catheter, distal tip is in th e right atrium. There is an additional linear density seen superimposed of the superior mediastinum, thoracic inlet which is indeterminate. No evident pneumothorax. Patchy densities present at the left lung base. Exam is expiratory and rotated. There are overlying leads. Pneumatosis changes are again s een within the stomach. Stomach is markedly distended. IMPRESSION: No evident, condition status post central venous catheter placement. Additional linear d ensity may relate to an NG tube which is showing tip overlying the upper thoracic esophagus. Correlat e. Expiratory rotated exam, follow-up as indicated. Correlate for possible pneumonia, aspiration, add itional findings in the upper abdomen as noted on prior CT.
--- NOTE | 2021-10-30 13:46 | P.PN ---
Subjective Patient was admitted for nausea vomiting diarrhea believed to have gastroenteritis. Patient continued to have vomiting and started having abdominal tenderness because of which CT of the abdomen was obtained which showed pneumatosis coli along with some gas in the venous system concern for ischemic bowel. Patient was started on Zosyn. Patient subsequently decompensated patient became hypotensive with BP of 60/40 transferred to ICU patient was given 3 L of boluses of IV fluid NG tube was placed which showed bloody output . Patient in septic shock and receiving norepinephrine at this time. Recent echo showed normal ejection fraction. Patient had CTA of the chest which was negative for pulmonary embolism patient creatinine has worsened and went up to 2.80 today from 1.14 yesterday and this is secondary to acute tubular necrosis from sepsis and septic shock. Patient does have lactic acidosis, patient does have lactic acidosis with lactic acidosis 7.5. Patient will be given 1 L of IV fluids continue pressor support. Constitutional: Denied any fatigue denied any fever. Cardio vascular: denied any chest pain, palpitations Gastrointestinal as mentioned in HPI Pulmonary: Denied any shortness of breath cough Neurologic denied any new focal deficits All inpatient medications were reviewed and appropriate changes in these medica tions as dictated in the interval history and assessment and plan. PHYSICAL EXAMINATION: GENERAL: The patient is alert and oriented x3, not in any acute distress. Well developed, well nourished. HEENT: Pupils are round and equally reacting to light. EOMI. No scleral icterus. No conjunctival pallor. Normocephalic, atraumatic. No pharyngeal erythema. No thyromegaly. CARDIOVASCULAR: S1 and S2 present. No murmurs, rubs, or gallops. PULMONARY: Chest is clear to auscultation, no wheezing or crackles. ABDOMEN: NG tube in place abdomen is tympanic distended. Sluggish bowel sounds MUSCULOSKELETAL: No joint swelling or deformity. EXTREMITIES: No cyanosis, clubbing, or pedal edema. NEUROLOGICAL: Gross neurological examination did not reveal any focal deficits. SKIN: No rashes. Assessment and plan Assessment -Septic shock secondary to probably ischemic bowel with the peritonitis or bowel perforation will be continued on IV fluids and increase IV fluids 1 30 mL per hour continue with NG tube which drained so far about 2 L of the bloody fluid. Patient will be transfused as needed. Patient will be continued on Zosyn -Acute renal failure secondary to acute blood necrosis from septic shock patient doesn't he doesn't have any urine output Syncope with loss of consciousness, hypotensive secondary to above History of CVA TIA History diabetes mellitus type 2, diet controlled History hypertension, hypotensive on admission with a blood pressure in the 70s, holding off on antidepressant medications History autism History of intellectual impairment GI Prophylaxis Protonix DVT Prophylaxis Subcu heaprin Patient's prognosis is poor patient probably will undergo laparotomy today. Objective - Vital Signs Vital signs: Vital Signs Temp 97.8 F 10/30/21 12:45 Pulse 118 H 10/30/21 12:45 Resp 22 10/30/21 12:45 BP 95/55 10/30/21 12:45 Pulse Ox 90 L 10/30/21 12:45 Intake & Output 10/29/21 10/30/21 10/30/21 18:59 06:59 18:59 Intake Total 2330 Output Total 800 300 580 Balance -800 -300 1750 Weight 79.379 kg Intake: IV 2330 Invasive Line 5 10 Invasive Line 6 20 Sodium Chloride 0.9% 1, 300 000 ml @ 100 mls/hr IV . Q10H [facility] Rx#:[id number] Sodium Chloride 0.9% 2, 2000 000 ml @ 999 mls/hr IV . Q2H1M [facility] Rx#:[id number] Oral 0 Tube Feeding 0 Blood Product 0 Rc As-1 Unit 0 [id number] Output: Gastric Drainage 550 Urine 800 300 30 Uretheral (Zepeda) 300 30 Stool 0 Urine/Stool Mix 0 Emesis 0 Oral Regurgitation 0 Other: Voiding Method Toilet Bedside Commode Diaper # Voids 0 # Bowel Movements 0 - Labs CBC & Chem 7: 10/30/21 10:20 10/30/21 10:20 Labs: Abnormal Lab Results - Last 24 Hours (Table) 10/30/21 10/30/21 10/30/21 Range/Units 06:11 06:11 09:31 Hgb (13.0-17.5) gm/dL MCHC 29.8 L (31.0-37.0) g/dL Lymphocytes # 0.4 L (1.0-4.8) k/uL PT (9.0-12.0) sec INR (<1.2) Chloride 114 H (98-107) mmol/L Carbon Dioxide 16 L (22-30) mmol/L BUN 35 H (9-20) mg/dL Creatinine 2.61 H (0.66-1.25) mg/dL Glucose 104 H (74-99) mg/dL Plasma Lactic Acid Milton 7.5 H* (0.7-2.0) mmol/L Calcium (8.4-10.2) mg/dL Phosphorus 5.7 H (2.5-4.5) mg/dL Magnesium 2.6 H (1.6-2.3) mg/dL AST 88 H (17-59) U/L Total Protein 5.7 L (6.3-8.2) g/dL Albumin 3.0 L (3.5-5.0) g/dL Crossmatch 10/30/21 10/30/21 10/30/21 Range/Units 10:14 10:20 10:20 Hgb 11.7 L (13.0-17.5) gm/dL MCHC 29.3 L (31.0-37.0) g/dL Lymphocytes # (1.0-4.8) k/uL PT 12.7 H (9.0-12.0) sec INR 1.2 H (<1.2) Chloride (98-107) mmol/L Carbon Dioxide (22-30) mmol/L BUN (9-20) mg/dL Creatinine (0.66-1.25) mg/dL Glucose (74-99) mg/dL Plasma Lactic Acid Milton (0.7-2.0) mmol/L Calcium (8.4-10.2) mg/dL Phosphorus (2.5-4.5) mg/dL Magnesium (1.6-2.3) mg/dL AST (17-59) U/L Total Protein (6.3-8.2) g/dL Albumin (3.5-5.0) g/dL Crossmatch See Detail 10/30/21 Range/Units 10:20 Hgb (13.0-17.5) gm/dL MCHC (31.0-37.0) g/dL Lymphocytes # (1.0-4.8) k/uL PT (9.0-12.0) sec INR (<1.2) Chloride 117 H (98-107) mmol/L Carbon Dioxide 12 L (22-30) mmol/L BUN 39 H (9-20) mg/dL Creatinine 2.80 H (0.66-1.25) mg/dL Glucose (74-99) mg/dL Plasma Lactic Acid Milton (0.7-2.0) mmol/L Calcium 8.3 L (8.4-10.2) mg/dL Phosphorus (2.5-4.5) mg/dL Magnesium (1.6-2.3) mg/dL AST 88 H (17-59) U/L Total Protein 4.6 L (6.3-8.2) g/dL Albumin 2.4 L (3.5-5.0) g/dL Crossmatch
[2021-10-30] MEDS ORDERED: ONDANSETRON 4 MG/2 ML VIAL ONE (13:59)
[2021-10-30] MEDS ORDERED: SUCCINYLCHOLINE CHLORIDE 100 MG/5 ML SYR IV ONE (13:59)
[2021-10-30] MEDS ORDERED: ePHEDrine 50 MG/ML 1 ML VIAL ONE (13:59)
[2021-10-30] MEDS ORDERED: ROCURONIUM 10 MG/ML (5 ML VIAL) IV ONE (13:59)
[2021-10-30] MEDS ORDERED: ALBUMIN HUMAN 5% (12.5gm) 250 ML BOTTLE IVPB ONE (13:59)
[2021-10-30] MEDS ORDERED: MIDAZOLAM 2 MG/2 ML VIAL ONE (13:59)
[2021-10-30] MEDS ORDERED: PHENYLEPHRINE-0.9% NACL SYG 1,000 MCG/10 ML SYRINGE ONE (13:59)
[2021-10-30] MEDS ORDERED: ETOMIDATE 2 MG/ML 10 ML VIAL ONE (13:59)
[2021-10-30] MEDS ORDERED: LIDOCAINE 1% INJ 10MG/ML (20 ML MDV) ONE (13:59)
--- NOTE | 2021-10-30 14:11 | P.PN ---
Progress Note - Text Progress Note Date: 10/30/21 The patient was seen at his bedside approximately 9 AM. The patient did not have his nasogastric tube placed last night. The nurses states that he was uncooperative has been pulling out all of his tubes and lines. The patient is a poor historian. He is resting in bed fairly comfortably. He does not appear to be in any significant abdominal pain. When I pressed on his belly had some minimal tenderness throughout. There is no rebound or guarding. The patient's computed tomography scan was reviewed. There is question of bowel ischemia. I contacted the patient's brother. The Sasha clark. And explained the situation. I believe the patient may benefit from exploratory laparotomy. The patient's brother at this time is unsure if he wishes to put his brother through surgery. At this time we will aggressively fluid hydrated the patient. Approximately an hour later the patient underwent a rapid resuscitation with the on-call team. He was transferred to the ICU 2. He was placed on the Levophed. The patient received lines. The patient's brother was contacted and now is c onsenting for surgery. The patient will undergo exploratory laparotomy.
[2021-10-30] MEDS ORDERED: SODIUM CHLORIDE 0.9% 1,000 ML IV ONE ×6 (14:50→21:36)
--- NOTE | 2021-10-30 15:44 | P.OP ---
Date of Procedure: 10/30/21 Preoperative Diagnosis: Ischemic bowel Postoperative Diagnosis: Ischemia of the lateral portion of the stomach Mild or ischemia proximal jejunum Procedure(s) Performed: Exploratory laparotomy Partial gastrectomy Anesthesia: ETTA Surgeon: Dl Toussaint Estimated Blood Loss (ml): 50 Pathology: other (Stomach) Condition: stable Disposition: PACU Description of Procedure: The patient's placed on the operating table in the supine position. He received general anesthesia. His abdomen was prepped and draped in sterile fashion. The area was entered through a midline incision. Upon entering the abdomen there was some ascites seen. This was aspirated. There is approximately 3 mL of ascitic fluid. The Bookwalter was placed in the wound. The abdomen was explored. The stomach appeared to be grossly dilated. Along the greater curvature of the stomach there was some patchy ischemia. There was no perforation. But there was definite ischemia of the area. The small bowel was run. In the proximal small bowel appeared to have some ischemia however it looked viable. There is no perforation of any viscus. This point the lesser sac was opened. The posterior wall the stomach appeared viable. The area of gastric ischemia was seen on the anterior wall of the stomach along the greater curvature. At this point it was decided to divide short gastrics along the greater curvature. Using the Enseal device this was performed. The partial gastrectomy was then performed using the GABRIELA stapler with seam guard buttress material. The ischemic portion of the stomach was wedged out. 4 sequential firings of the stapler were performed in order to remove this portion of the stomach. A oral gastric tube was then placed and stomach. The abdomen was irrigated there is no bleeding seen. The fascia was then closed with looped #1 PDS suture. Skin was closed sheldon. Patient was sent back to the ICU intubated. After surgery I did discuss the patient's condition with his brother Shiva
--- NOTE | 2021-10-30 15:47 | P.PCN ---
Date of Procedure: 10/30/21 Preoperative Diagnosis: Acute abdomen, preop Postoperative Diagnosis: Acute abdomen, preop, shock Procedure(s) Performed: Insertion of a triple-lumen catheter and arterial line catheter Anesthesia: local Surgeon: Maxwell Harvey Estimated Blood Loss (ml): 0 Pathology: none sent Condition: critical Disposition: ICU Operative Findings: Central line insertion Indication: Hemodynamic monitoring/Intravenous access. A time-out was completed verifying correct patient, procedure, site, positioning, and implant(s) or special equipment if applicable. The patient was placed in a dependent position appropriate for central line placement based on the vein to be cannulated. The patient' s right neck was prepped and draped in sterile fashion. 1% Lidocaine was used to anesthetize the surrounding skin area. A triple lumen 9F Cordis catheter was introduced into the right internal jugular vein using Seldinger technique. The catheter was threaded smoothly over the guide wire and appropriate blood return was obtained. Each lumen of the catheter was evacuated of air and flushed with sterile saline. The catheter was then sutured in place to the skin and a sterile dressing applied. Perfusion to the extremity distal to the point of catheter insertion was checked and found to be adequate. The patient tolerated the procedure well and there were no complications. Arterial line insertion Indication: Hemodynamic monitoring. A time-out was completed verifying correct patient, procedure, site, positioning, and implant(s) or special equipment if applicable. Allens test was performed to ensure adequate perfusion. The patients left breast was prepped and draped in sterile fashion. 1% Lidocaine was used to anesthetize the area. An 18G Arrow arterial line was introduced into the left radial artery. The catheter was threaded over the guide wire and the needle was removed with appropriate pulsatile blood return. Blood loss was minimal. The catheter was then sutured in place to the skin and a sterile dressing applied. Perfusion to the extremity distal to the point of catheter insertion was checked and found to be adequate. The patient tolerated the procedure well and there were no complications.
[2021-10-30] MEDS ORDERED: propofoL 100 ML IV ONE (15:53)
[2021-10-30] MEDS: NOREPINEPHRINE 32 MG in SODIUM CHLORIDE 0.9% 218 ML IV SCH (16:17)
--- NOTE | 2021-10-30 16:25 | XR ---
EXAMINATION TYPE: XR chest 1V portable DATE OF EXAM: 10/30/2021 COMPARISON: Chest x-ray same dated earlier time HISTORY: Tube placement TECHNIQUE: Single frontal view of the chest is obtained. FINDINGS: There is been interval placement of an endotracheal tube overlying the tracheal air column . Right jugular central venous catheter is again, distal tip not well seen, patient is rotated. NG tu be shows the tip overlying the left upper quadrant, side-port within the thoracic esophagus however. Patchy bilateral airspace disease is suspected. No evident pneumothorax. The distention of the stomac h has improved in the interval. IMPRESSION: Interval intubation. Correlate for pneumonia versus basilar atelectasis. NG tube as desc ribed.
[2021-10-30 16:30] LABS: ABG Base Excess -17.1 mmol/L; ABG HCO3 14 mmol/L (21-25); ABG Oxygen Saturation 99.2 % (94-97); ABG PCO2 52 mmHg (35-45); ABG PO2 365 mmHg (83-108); ABG TCO2 15 mmol/L (19-24)
[2021-10-30 16:33] LABS: ABG PH 7.03 (7.35-7.45); Allen Test Performed? no
[2021-10-30] MEDS ORDERED: SODIUM BICARB 8.4% 50 ML SYR (1 MEQ/ML) IV STA ×2 (16:52→23:00)
[2021-10-30] MEDS ORDERED: SODIUM CHLORIDE 0.9% 3,000 ML IV ONE (16:53)
[2021-10-30] MEDS: PANTOPRAZOLE 40 MG/10 ML VIAL IVP SCH ×2 (17:00→20:43)
[2021-10-30 17:36] LABS: ABG Base Excess -12.4 mmol/L; ABG HCO3 15 mmol/L (21-25); ABG Oxygen Saturation 98.2 % (94-97); ABG PCO2 36 mmHg (35-45); ABG PH 7.23 (7.35-7.45); ABG PO2 123 mmHg (83-108); ABG TCO2 16 mmol/L (19-24)
[2021-10-30 17:37] LABS: Allen Test Performed? no
[2021-10-30 19:04] LABS: HCT 34.4 % (39.0-53.0); HGB 10.9 gm/dL (13.0-17.5); Hypochromasia Marked; MCH 26.8 pg (25.0-35.0); MCHC 31.6 g/dL (31.0-37.0); MCV 84.8 fL (80.0-100.0); Mean Platelet Volume 9.9; RBC 4.06 m/uL (4.30-5.90); RDW 14.8 % (11.5-15.5); WBC 1.7 k/uL (3.8-10.6)
[2021-10-30 19:49] LABS: Platelet Count 89 k/uL (150-450)
[2021-10-30 22:48] LABS: Allen Test Performed? Yes
[2021-10-30 22:57] LABS: ABG Base Excess -15.6 mmol/L; ABG HCO3 12 mmol/L (21-25); ABG PCO2 36 mmHg (35-45); ABG PH 7.15 (7.35-7.45); ABG PO2 131 mmHg (83-108); ABG TCO2 15 mmol/L (19-24)
[2021-10-31] MEDS: PIPERACILLIN-TAZOBACTAM 3.375 GM in SODIUM CHLORIDE 0.9% 100 ML IVPB SCH ×4 (00:57→23:47)
[2021-10-31 01:09] LABS: HGB 10.9 gm/dL (13.0-17.5); Hypochromasia Marked; MCH 26.3 pg (25.0-35.0); MCV 84.9 fL (80.0-100.0); Mean Platelet Volume 8.8; Platelet Count 112 k/uL (150-450); RBC 4.13 m/uL (4.30-5.90); WBC 2.5 k/uL (3.8-10.6)
[2021-10-31] MEDS: SODIUM CHLORIDE 0.9% 150 ML with VASOPRESSIN 60 UNIT IV SCH ×2 (02:08)
[2021-10-31] MEDS: SODIUM CHLORIDE 0.9% 1,000 ML IV SCH ×4 (02:09→23:48)
[2021-10-31] MEDS: NOREPINEPHRINE 32 MG in SODIUM CHLORIDE 0.9% 218 ML IV SCH ×3 (04:04→20:15)
[2021-10-31 04:44] LABS: HCT 38.3 % (39.0-53.0); Hypochromasia Marked; MCH 26.5 pg (25.0-35.0); MCHC 31.3 g/dL (31.0-37.0); MCV 84.7 fL (80.0-100.0); Mean Platelet Volume 11.2; Platelet Count 127 k/uL (150-450); RBC 4.52 m/uL (4.30-5.90); RDW 14.7 % (11.5-15.5)
[2021-10-31 04:50] LABS: Calcium 7.1 mg/dL (8.4-10.2)
[2021-10-31 04:56] LABS: Potassium 4.1 mmol/L (3.5-5.1)
[2021-10-31 05:11] LABS: Neutrophils % (M) 6 %
[2021-10-31 05:12] LABS: Band Neutrophils % 58 %; Eosinophils # (M) 0.06 k/uL (0-0.7); Lymphocytes # (M) 0.87 k/uL (1.0-4.8); Metamyelocytes # (M) 0.06 k/uL (0); Metamyelocytes % 2 %; Monocytes # (M) 0.12 k/uL (0-1.0); Nucleated Red Blood Cells 2 /100 WBC (0-0); Total Cells Counted 200; WBC 3.1 k/uL (3.8-10.6)
[2021-10-31 05:20] LABS: Anisocytosis (M) Present; Crenated RBC Present; Poikilocytosis (M) Present
[2021-10-31 05:41] LABS: ABG Base Excess -14.2 mmol/L; ABG HCO3 13 mmol/L (21-25); ABG Oxygen Saturation 96.5 % (94-97); ABG PCO2 28 mmHg (35-45); ABG PH 7.27 (7.35-7.45); ABG PO2 91 mmHg (83-108); ABG TCO2 14 mmol/L (19-24); Allen Test Performed? Yes
[2021-10-31] MEDS: CARBIDOPA-LEVODOPA 10-100 MG 1 EACH TAB PO SCH (06:27)
[2021-10-31] MEDS: ARIPiprazole 15 MG TAB PO SCH (06:27)
[2021-10-31] MEDS: BENZTROPINE MESYLATE 0.5 MG TAB PO SCH (06:27)
[2021-10-31] MEDS: CHOLECALCIFEROL 25 MCG (1000 IU) TABLET PO SCH (06:27)
[2021-10-31] MEDS: CITALOPRAM HYDROBROMIDE 20 MG TAB PO SCH (06:27)
[2021-10-31] MEDS: ASPIRIN 81 MG PO SCH (06:27)
[2021-10-31] MEDS: cloZAPine 100 MG TAB PO SCH (06:28)
[2021-10-31] MEDS: OXYBUTYNIN CHLORIDE 5 MG TAB PO SCH (06:28)
[2021-10-31] MEDS: PRIMIDONE 50 MG TAB PO SCH (06:28)
[2021-10-31] MEDS: PREGABALIN 75 MG CAP PO SCH (06:28)
[2021-10-31] MEDS: TRIAMCINOLONE 0.1% CREAM 80 GM TUBE TOPICAL SCH (07:01)
--- NOTE | 2021-10-31 07:51 | XR ---
EXAMINATION TYPE: XR chest 1V portable DATE OF EXAM: 10/31/2021 COMPARISON: Chest x-ray 10/30/2021 HISTORY: Intubated TECHNIQUE: Single frontal view of the chest is obtained. FINDINGS: Endotracheal tube and NG tube, right jugular central venous catheter are overlying appropr iate positions. Patient is rotated. There is no evident pneumothorax. Bibasilar increased attenuation is present, the left hemidiaphragm is obscured. Cardiac mediastinal silhouette is stable. There is t horacic spondylosis. IMPRESSION: Basilar atelectasis, difficult to exclude effusion, pneumonia versus edema.
[2021-10-31] MEDS: PANTOPRAZOLE 40 MG/10 ML VIAL IVP SCH ×2 (08:29→20:14)
[2021-10-31] MEDS: CHLORHEXIDINE GLUCONATE 15 ML CUP MUCOUS MEM SCH ×2 (08:29→20:14)
[2021-10-31] MEDS: HYDROmorphone 1 MG/ML 1 ML SYRINGE IVP PRN (08:32)
[2021-10-31] MEDS ORDERED: ALBUMIN HUMAN 5% 500 ML in EMPTY BAG 1 BAG IVPB ONE (08:41)
[2021-10-31] MEDS ORDERED: SODIUM CHLORIDE 0.9% 1,000 ML IV ONE ×2 (08:42→11:21)
[2021-10-31] MEDS: HEPARIN SODIUM,PORCINE/PF 5,000 UNIT/0.5 ML SYRINGE SQ SCH ×2 (09:03→20:14)
--- NOTE | 2021-10-31 11:43 | P.PN ---
Subjective Patient was admitted for nausea vomiting diarrhea believed to have gastroenteritis. Patient continued to have vomiting and started having abdominal tenderness because of which CT of the abdomen was obtained which showed pneumatosis coli along with some gas in the venous system concern for ischemic bowel. Patient was started on Zosyn. Patient subsequently decompensated patient became hypotensive with BP of 60/40 transferred to ICU patient was given 3 L of boluses of IV fluid NG tube was placed which showed bloody output . Patient in septic shock and receiving norepinephrine at this time. Recent echo showed normal ejection fraction. Patient had CTA of the chest which was negative for pulmonary embolism patient creatinine has worsened and went up to 2.80 today from 1.14 yesterday and this is secondary to acute tubular necrosis from sepsis and septic shock. Patient does have lactic acidosis, patient does have lactic acidosis with lactic acidosis 7.5. Patient will be given 1 L of IV fluids continue pressor support. he is intubated and sedated. 10/31/2021 Patient is started having urine output. Patient underwent a arthrotomy yesterday and found to have ischemia of the lateral portion of the stomach and ischemia of the proximal jejunum patient underwent partial gastrectomy. Patient is presently on that to pressors maximized on norepinephrine, patient is also on vasopressin receiving albumin, IV fluids started having minimal urine output patient was anuric last night. Patient's chloride is highly elevated leading to metabolic acidosis patient also has an anion gap metabolic acidosis from lactic acidosis which appears to be improving at this time patient's overall clinical condition is guarded and the prognosis is poor. Patient Y blood cell count went down in fact patient is neutropenic now. Patient is presently not receiving any nutrition at this time. PHYSICAL EXAMINATION: GENERAL: Patient is intubated sedated HEENT: Pupils are round and equally reacting to light. EOMI. No scleral icterus. No conjunctival pallor. Normocephalic, atraumatic. No pharyngeal erythema. No thyromegaly. CARDIOVASCULAR: S1 and S2 present. No murmurs, rubs, or gallops. PULMONARY: Chest is clear to auscultation, no wheezing or crackles. ABDOMEN: Sluggish bowel sounds MUSCULOSKELETAL: No joint swelling or deformity. EXTREMITIES: No cyanosis, clubbing, or pedal edema. NEUROLOGICAL: Intubated SKIN: No rashes. Assessment and plan Assessment -Septic shock status post partial gastrectomy for ischemic stomach patient also had ischemic ileum. Patient will continue her on IV fluids, patient is also on albumin as per Extension Forester. Patient is on pressor support which will be continued patient will be continued on Zosyn close monitoring urine output is minimal patient is oliguric. is presently on 2 pressors. -Anion gap metabolic acidosis secondary to lactic acidosis which improved patient doesn't has noniron gap involved acidosis secondary to hyperchloremia -Acute renal failure secondary to acute blood necrosis from septic shock patient doesn't he doesn't have any urine output Syncope with loss of consciousness, hypotensive secondary to above History of CVA TIA History diabetes mellitus type 2, diet controlled History hypertension, hypotensive on admission with a blood pressure in the 70s, holding off on antidepressant medications History autism History of intellectual impairment GI Prophylaxis Protonix DVT Prophylaxis Subcu heaprin Prognosis remains guarded patient is a really sick at this time Objective - Vital Signs Vital signs: Vital Signs Temp 100.4 F H 10/31/21 08:00 Pulse 130 H 10/31/21 11:00 Resp 30 H 10/31/21 11:00 BP 118/37 10/31/21 11:00 Pulse Ox 98 10/31/21 11:00 Intake & Output 10/30/21 10/31/21 10/31/21 18:59 06:59 18:59 Intake Total 7176.655 3986.663 2540.220 Output Total 2260 230 65 Balance 4916.655 3756.663 2475.220 Weight 94.6 kg Intake: IV 6810 3650 680 Invasive Line 5 30 30 10 Invasive Line 6 60 60 20 Sodium Chloride 0.9% 1, 1120 1560 650 000 ml @ 130 mls/hr IV . Q7H42M [facility] Rx#:[id number] Sodium Chloride 0.9% 2, 3000 2000 000 ml @ 999 mls/hr IV . Q2H1M [facility] Rx#:[id number] Intake, IV Titration 56.655 704.191 1932.220 Amount Albumin Human 5% 500 ml 500 In Empty Bag 1 bag @ 500 mls/hr IVPB ONCE [facility] Rx#: [id number] Norepinephrine 32 mg In 13.054 189.136 161.177 Sodium Chloride 0.9% 218 ml @ 0.05 MCG/KG/MIN 1.86 mls/hr IV .Q24H [facility] Rx#: [id number] Norepinephrine 4 mg In 43.601 Sodium Chloride 0.9% 250 ml @ 0.05 MCG/KG/MIN 15. 122 mls/hr IV .[id number] [facility] Rx#:[id number] Piperacillin-Tazobactam 3 100 .375 gm In Sodium Chloride 0.9% 100 ml @ 25 mls/hr IVPB Q8HR [facility] Rx# :[id number] Sodium Chloride 0.9% 1, 1000 000 ml @ 999 mls/hr IV . Q1H1M [facility] Rx#:[id number] propofoL 1,000 mg In 147.527 99.043 Empty Bag 1 bag @ Titrate IV .Q0M [facility] Rx#: [id number] Oral 0 Tube Feeding 0 Blood Product 310 Rc As-1 Unit 310 [id number] Output: Gastric Drainage 2000 Urine 210 230 65 Uretheral (Zepeda) 30 Stool 0 Urine/Stool Mix 0 Emesis 0 Oral Regurgitation 0 Estimated Blood Loss 50 Other: Voiding Method Indwelling Catheter Indwelling Catheter Indwelling Catheter # Voids 0 # Bowel Movements 0 ABP, PAP, CO, CI - Last Documented Arterial Blood Pressure 89/55 - Labs CBC & Chem 7: 10/31/21 04:24 10/31/21 04:24 Labs: Abnormal Lab Results - Last 24 Hours (Table) 10/29/21 10/30/21 10/30/21 Range/Units 09:38 10:20 16:27 WBC (3.8-10.6) k/uL RBC (4.30-5.90) m/uL Hgb (13.0-17.5) gm/dL Hct (39.0-53.0) % Plt Count (150-450) k/uL Lymphocytes # (Manual) (1.0-4.8) k/uL Metamyelocytes # (Man) (0) k/uL Nucleated RBCs (0-0) /100 WBC ABG pH 7.03 L* (7.35-7.45) ABG pCO2 52 H (35-45) mmHg ABG pO2 365 H (83-108) mmHg ABG HCO3 14 L (21-25) mmol/L ABG Total CO2 15 L (19-24) mmol/L ABG O2 Saturation 99.2 H (94-97) % Chloride (98-107) mmol/L Carbon Dioxide (22-30) mmol/L BUN (9-20) mg/dL Creatinine (0.66-1.25) mg/dL Plasma Lactic Acid Milton (0.7-2.0) mmol/L Calcium (8.4-10.2) mg/dL Primidone 1.8 L (4-12) ug/mL Crossmatch See Detail 10/30/21 10/30/21 10/30/21 Range/Units 17:33 17:35 18:55 WBC 1.7 L (3.8-10.6) k/uL RBC 4.06 L (4.30-5.90) m/uL Hgb 10.9 L (13.0-17.5) gm/dL Hct 34.4 L (39.0-53.0) % Plt Count 89 L (150-450) k/uL Lymphocytes # (Manual) (1.0-4.8) k/uL Metamyelocytes # (Man) (0) k/uL Nucleated RBCs (0-0) /100 WBC ABG pH 7.23 L (7.35-7.45) ABG pCO2 (35-45) mmHg ABG pO2 123 H (83-108) mmHg ABG HCO3 15 L (21-25) mmol/L ABG Total CO2 16 L (19-24) mmol/L ABG O2 Saturation 98.2 H (94-97) % Chloride (98-107) mmol/L Carbon Dioxide (22-30) mmol/L BUN (9-20) mg/dL Creatinine (0.66-1.25) mg/dL Plasma Lactic Acid Milton 3.6 H* (0.7-2.0) mmol/L Calcium (8.4-10.2) mg/dL Primidone (4-12) ug/mL Crossmatch 10/30/21 10/30/21 10/31/21 Range/Units 20:50 22:42 00:11 WBC (3.8-10.6) k/uL RBC (4.30-5.90) m/uL Hgb (13.0-17.5) gm/dL Hct (39.0-53.0) % Plt Count (150-450) k/uL Lymphocytes # (Manual) (1.0-4.8) k/uL Metamyelocytes # (Man) (0) k/uL Nucleated RBCs (0-0) /100 WBC ABG pH 7.15 L* (7.35-7.45) ABG pCO2 (35-45) mmHg ABG pO2 131 H (83-108) mmHg ABG HCO3 12 L (21-25) mmol/L ABG Total CO2 15 L (19-24) mmol/L ABG O2 Saturation 98.0 H (94-97) % Chloride (98-107) mmol/L Carbon Dioxide (22-30) mmol/L BUN (9-20) mg/dL Creatinine (0.66-1.25) mg/dL Plasma Lactic Acid Milton 3.8 H* 3.7 H* (0.7-2.0) mmol/L Calcium (8.4-10.2) mg/dL Primidone (4-12) ug/mL Crossmatch 10/31/21 10/31/21 10/31/21 Range/Units 00:47 04:24 04:24 WBC 2.5 L 3.1 L (3.8-10.6) k/uL RBC 4.13 L (4.30-5.90) m/uL Hgb 10.9 L 12.0 L (13.0-17.5) gm/dL Hct 35.0 L 38.3 L (39.0-53.0) % Plt Count 112 L 127 L (150-450) k/uL Lymphocytes # (Manual) 0.87 L (1.0-4.8) k/uL Metamyelocytes # (Man) 0.06 H (0) k/uL Nucleated RBCs 2 H (0-0) /100 WBC ABG pH (7.35-7.45) ABG pCO2 (35-45) mmHg ABG pO2 (83-108) mmHg ABG HCO3 (21-25) mmol/L ABG Total CO2 (19-24) mmol/L ABG O2 Saturation (94-97) % Chloride (98-107) mmol/L Carbon Dioxide (22-30) mmol/L BUN (9-20) mg/dL Creatinine (0.66-1.25) mg/dL Plasma Lactic Acid Milton 3.5 H* (0.7-2.0) mmol/L Calcium (8.4-10.2) mg/dL Primidone (4-12) ug/mL Crossmatch 10/31/21 10/31/21 Range/Units 04:24 05:37 WBC (3.8-10.6) k/uL RBC (4.30-5.90) m/uL Hgb (13.0-17.5) gm/dL Hct (39.0-53.0) % Plt Count (150-450) k/uL Lymphocytes # (Manual) (1.0-4.8) k/uL Metamyelocytes # (Man) (0) k/uL Nucleated RBCs (0-0) /100 WBC ABG pH 7.27 L (7.35-7.45) ABG pCO2 28 L (35-45) mmHg ABG pO2 (83-108) mmHg ABG HCO3 13 L (21-25) mmol/L ABG Total CO2 14 L (19-24) mmol/L ABG O2 Saturation (94-97) % Chloride 123 H (98-107) mmol/L Carbon Dioxide 11 L (22-30) mmol/L BUN 44 H (9-20) mg/dL Creatinine 2.42 H (0.66-1.25) mg/dL Plasma Lactic Acid Milton (0.7-2.0) mmol/L Calcium 7.1 L (8.4-10.2) mg/dL Primidone (4-12) ug/mL Crossmatch
--- NOTE | 2021-10-31 12:26 | P.PN ---
Subjective Progress Note Date: 10/31/21 I was asked to evaluate this patient for an acute abdomen and the patient was being transferred to the intensive care unit for further management. This patient is mentally challenged and his not been a good reliable historian. He came into the hospital because of abdominal pain. This morning, the patient was found to be hypotensive and a critically care team was activated. Patient's BP was 60/40. He was awake at the bedside. His abdomen was distended and was quite tender in was still complaining of pain in his abdomen and he was having dry heaves. ABG was inserted and the patient had bloody output from the NG tube in order of 700 mL immediately. A total of 2 L of IV fluid bolus was given and the patient remains hypotensive and following that the patient was ordered to restart her norepinephrine infusion and the patient will be transferred to the intensive care unit. Unit of packed RBC was also ordered for this patient. General surgeries on the case as the patient had a acute abdomen and the CAT scan of the abdomen was done earlier on 10/29/2021 showed extensive portal venous gas, extensive pneumatosis involving the stomach and small bowel, dilated small bowel and stomach consistent with significant ileus. No transition point was seen. There was bilateral renal calculi up to 5 mm. No signs of any retroperitoneal lymphadenopathy. Note that this morning, the patient's white cell count is at 5.7 with a hemoglobin of 11.7. Serum bicarb is down to 12. The lactic acid level was as high as 7.5, the patient had a BUN of 39 and a creatinine of 2.8 consistent with AK I and the patient had normal LFTs. Normal coagulation profile. Started on IV Zosyn. CT of the chest that was done at time of admission showed no evidence of any pulmonary embolism. There was dilatation of the thoracic esophagus with fluid levels and dilated stomach. Recent echocardiogram from January 2020 showed a normal ejection fraction. Comorbid conditions include intellectual limitation and retardation mentally in addition CVA, diabetes mellitus and hypertension. On today's evaluation of 10/31/2021, I'm seeing this patient for a follow-up. The patient had a very complicated course overnight. The patient was taken to the operating room yesterday evening and the patient was found to have ischemia of the lateral portion of the stomach and mild/minimal ischemia of the proximal jejunum. The patient underwent a exploratory laparotomy and the patient underwent a partial gastrectomy. Postop, the patient was kept intubated and patient was sent to the intensive care unit for further care. The patient was hypotensive on pressors by the time he arrived to the ICU. Overnight, the patient was given multiple fluid boluses and the neck fluid balance since yesterday evening as an +8.6 L. This morning, the patient is sedated on propofol at 50 mcg/kg per minute. The patient remains an assist-control mode of mechanical ventilation, the patient is currently on assist-control of 28, tidal volume of 450, FiO2 of 40% with a PEEP of 5. Peak air pressures 22. Chest x- ray shows some limited atelectasis/small effusion left lung base. Orotracheal tube is in a good location the patient is also an orotracheal tube in place. Output from the OG is minimal at this point in time. The blood gases showed a pH of 7.27 with a pCO2 of 28 and pO2 of 91 and this was on the above-mentioned ventilator setting. He was dynamically, the patient is still on normal saline@ 130 mL an hour. Earlier, the norepinephrine infusion was at 0.75 mcg/kg per minute and this was brought up to 1 mg/kg per minute. Overnight, the patient was also started on vasopressin drip at 0.03 units per minutes. Urine output is minimal at this point in time. The patient has also developed an acute kidney injury. Creatinine is up to 2.4 with a mean of 44. Sodium level was 143. Lactic acid from this morning was at 3.5. The white cell count is at 3.4 with a hemoglobin of 12.0. Platelet count is 127. Patient remains nothing by mouth. Oral medications and all discontinued. Objective - Vital Signs Vital signs: Vital Signs Temp 100.4 F H 10/31/21 08:00 Pulse 130 H 10/31/21 11:00 Resp 30 H 10/31/21 11:00 BP 118/37 10/31/21 11:00 Pulse Ox 98 10/31/21 11:00 Intake & Output 10/30/21 10/31/21 10/31/21 18:59 06:59 18:59 Intake Total 7176.655 3986.663 2700.220 Output Total 2260 230 95 Balance 4916.655 3756.663 2605.220 Weight 94.6 kg Intake: IV 6810 3650 840 Invasive Line 5 30 30 20 Invasive Line 6 60 60 40 Sodium Chloride 0.9% 1, 1120 1560 780 000 ml @ 130 mls/hr IV . Q7H42M [facility] Rx#:[id number] Sodium Chloride 0.9% 2, 3000 2000 000 ml @ 999 mls/hr IV . Q2H1M [facility] Rx#:[id number] Intake, IV Titration 56.655 036.769 1243.220 Amount Albumin Human 5% 500 ml 500 In Empty Bag 1 bag @ 500 mls/hr IVPB ONCE [facility] Rx#: [id number] Norepinephrine 32 mg In 13.054 189.136 161.177 Sodium Chloride 0.9% 218 ml @ 0.05 MCG/KG/MIN 1.86 mls/hr IV .Q24H [facility] Rx#: [id number] Norepinephrine 4 mg In 43.601 Sodium Chloride 0.9% 250 ml @ 0.05 MCG/KG/MIN 15. 122 mls/hr IV .[id number] [facility] Rx#:[id number] Piperacillin-Tazobactam 3 100 .375 gm In Sodium Chloride 0.9% 100 ml @ 25 mls/hr IVPB Q8HR [facility] Rx# :[id number] Sodium Chloride 0.9% 1, 1000 000 ml @ 999 mls/hr IV . Q1H1M [facility] Rx#:[id number] propofoL 1,000 mg In 147.527 99.043 Empty Bag 1 bag @ Titrate IV .Q0M [facility] Rx#: [id number] Oral 0 Tube Feeding 0 Blood Product 310 Rc As-1 Unit 310 [id number] Output: Gastric Drainage 2000 Urine 210 230 95 Uretheral (Zepeda) 30 Stool 0 Urine/Stool Mix 0 Emesis 0 Oral Regurgitation 0 Estimated Blood Loss 50 Other: Voiding Method Indwelling Catheter Indwelling Catheter Indwelling Catheter # Voids 0 # Bowel Movements 0 ABP, PAP, CO, CI - Last Documented Arterial Blood Pressure 89/55 - Exam GENERAL: Patient is intubated sedated, the patient is on a propofol drip for sedation. The patient is intubated on a mechanical ventilator. Head exam was generally normal. There was no scleral icterus or corneal arcus. Mucous membranes were moist. HEENT: Pupils are round and equally reacting to light. EOMI. No scleral icterus. No conjunctival pallor. Normocephalic, atraumatic. No pharyngeal erythema. No thyromegaly. Orogastric and orotracheal tube are both in place. CARDIOVASCULAR: S1 and S2 present. No murmurs, rubs, or gallops. PULMONARY: Chest is clear to auscultation, no wheezing or crackles. ABDOMEN: Absent bowel sounds and the surgical wound site over the mid abdomen is dry clean and intact. No direct tenderness. No rebound tenderness. No guarding. No organomegaly. MUSCULOSKELETAL: No joint swelling or deformity. EXTREMITIES: Extremities are cold and clammy and there are diminished pulses in all 4 extremities. No cyanosis. No clubbing. NEUROLOGICAL: Intubated, sedated, no focal neurological deficit at this point in time. Examination of the skin revealed no evidence of significant rashes, suspicious appearing nevi or other concerning lesions. - Labs CBC & Chem 7: 10/31/21 04:24 10/31/21 04:24 Labs: Abnormal Lab Results - Last 24 Hours (Table) 10/29/21 10/30/21 10/30/21 Range/Units 09:38 10:20 16:27 WBC (3.8-10.6) k/uL RBC (4.30-5.90) m/uL Hgb (13.0-17.5) gm/dL Hct (39.0-53.0) % Plt Count (150-450) k/uL Lymphocytes # (Manual) (1.0-4.8) k/uL Metamyelocytes # (Man) (0) k/uL Nucleated RBCs (0-0) /100 WBC ABG pH 7.03 L* (7.35-7.45) ABG pCO2 52 H (35-45) mmHg ABG pO2 365 H (83-108) mmHg ABG HCO3 14 L (21-25) mmol/L ABG Total CO2 15 L (19-24) mmol/L ABG O2 Saturation 99.2 H (94-97) % Chloride (98-107) mmol/L Carbon Dioxide (22-30) mmol/L BUN (9-20) mg/dL Creatinine (0.66-1.25) mg/dL Plasma Lactic Acid Milton (0.7-2.0) mmol/L Calcium (8.4-10.2) mg/dL Primidone 1.8 L (4-12) ug/mL Crossmatch See Detail 10/30/21 10/30/21 10/30/21 Range/Units 17:33 17:35 18:55 WBC 1.7 L (3.8-10.6) k/uL RBC 4.06 L (4.30-5.90) m/uL Hgb 10.9 L (13.0-17.5) gm/dL Hct 34.4 L (39.0-53.0) % Plt Count 89 L (150-450) k/uL Lymphocytes # (Manual) (1.0-4.8) k/uL Metamyelocytes # (Man) (0) k/uL Nucleated RBCs (0-0) /100 WBC ABG pH 7.23 L (7.35-7.45) ABG pCO2 (35-45) mmHg ABG pO2 123 H (83-108) mmHg ABG HCO3 15 L (21-25) mmol/L ABG Total CO2 16 L (19-24) mmol/L ABG O2 Saturation 98.2 H (94-97) % Chloride (98-107) mmol/L Carbon Dioxide (22-30) mmol/L BUN (9-20) mg/dL Creatinine (0.66-1.25) mg/dL Plasma Lactic Acid Milton 3.6 H* (0.7-2.0) mmol/L Calcium (8.4-10.2) mg/dL Primidone (4-12) ug/mL Crossmatch 10/30/21 10/30/21 10/31/21 Range/Units 20:50 22:42 00:11 WBC (3.8-10.6) k/uL RBC (4.30-5.90) m/uL Hgb (13.0-17.5) gm/dL Hct (39.0-53.0) % Plt Count (150-450) k/uL Lymphocytes # (Manual) (1.0-4.8) k/uL Metamyelocytes # (Man) (0) k/uL Nucleated RBCs (0-0) /100 WBC ABG pH 7.15 L* (7.35-7.45) ABG pCO2 (35-45) mmHg ABG pO2 131 H (83-108) mmHg ABG HCO3 12 L (21-25) mmol/L ABG Total CO2 15 L (19-24) mmol/L ABG O2 Saturation 98.0 H (94-97) % Chloride (98-107) mmol/L Carbon Dioxide (22-30) mmol/L BUN (9-20) mg/dL Creatinine (0.66-1.25) mg/dL Plasma Lactic Acid Milton 3.8 H* 3.7 H* (0.7-2.0) mmol/L Calcium (8.4-10.2) mg/dL Primidone (4-12) ug/mL Crossmatch 10/31/21 10/31/21 10/31/21 Range/Units 00:47 04:24 04:24 WBC 2.5 L 3.1 L (3.8-10.6) k/uL RBC 4.13 L (4.30-5.90) m/uL Hgb 10.9 L 12.0 L (13.0-17.5) gm/dL Hct 35.0 L 38.3 L (39.0-53.0) % Plt Count 112 L 127 L (150-450) k/uL Lymphocytes # (Manual) 0.87 L (1.0-4.8) k/uL Metamyelocytes # (Man) 0.06 H (0) k/uL Nucleated RBCs 2 H (0-0) /100 WBC ABG pH (7.35-7.45) ABG pCO2 (35-45) mmHg ABG pO2 (83-108) mmHg ABG HCO3 (21-25) mmol/L ABG Total CO2 (19-24) mmol/L ABG O2 Saturation (94-97) % Chloride (98-107) mmol/L Carbon Dioxide (22-30) mmol/L BUN (9-20) mg/dL Creatinine (0.66-1.25) mg/dL Plasma Lactic Acid Milton 3.5 H* (0.7-2.0) mmol/L Calcium (8.4-10.2) mg/dL Primidone (4-12) ug/mL Crossmatch 10/31/21 10/31/21 Range/Units 04:24 05:37 WBC (3.8-10.6) k/uL RBC (4.30-5.90) m/uL Hgb (13.0-17.5) gm/dL Hct (39.0-53.0) % Plt Count (150-450) k/uL Lymphocytes # (Manual) (1.0-4.8) k/uL Metamyelocytes # (Man) (0) k/uL Nucleated RBCs (0-0) /100 WBC ABG pH 7.27 L (7.35-7.45) ABG pCO2 28 L (35-45) mmHg ABG pO2 (83-108) mmHg ABG HCO3 13 L (21-25) mmol/L ABG Total CO2 14 L (19-24) mmol/L ABG O2 Saturation (94-97) % Chloride 123 H (98-107) mmol/L Carbon Dioxide 11 L (22-30) mmol/L BUN 44 H (9-20) mg/dL Creatinine 2.42 H (0.66-1.25) mg/dL Plasma Lactic Acid Milton (0.7-2.0) mmol/L Calcium 7.1 L (8.4-10.2) mg/dL Primidone (4-12) ug/mL Crossmatch Microbiology - Last 24 Hours (Table) 10/30/21 09:37 Blood Culture - Preliminary Blood No Growth after 24 hours 10/30/21 09:31 Blood Culture - Preliminary Blood No Growth after 24 hours Assessment and Plan Plan: 1 partial gastrectomy as the patient was found to have ischemic anterior gastric wall with questionable small bowel ischemia. The patient underwent partial gastrectomy and the patient is postop day #1. Patient presented with an acute abdomen and lactic acidosis and hemodynamic instability and the patient was getting septic preoperatively. Currently postop day #1. The patient is intubated on a mechanical ventilator. The patient is hemodynamically stable 2 septic shock post gastric surgery. Patient is being resuscitated with a combination of fluids and pressors and antibiotics 3 acute hypoxic respiratory failure. The patient is currently intubated on mechanical ventilator due to above-mentioned comorbidities. Not ready for any weaning for extubation due to his significant hemodynamic instability. 3 acute lactic acidosis, secondary to above 4 acute kidney injury and the patient is oliguric at this point in time, the patient is oliguric/anuric at this point. The patient is being aggressively resuscitated with IV fluids and pressors. 5 history of CVA 6 diabetes mellitus 7 hypertension 8 Developmental delay and autism Plan Continue ventilator support on no ventilator changes will be done today. Give the patient total of 500 mL of 5% albumin and another liter of normal saline Continue pressor support and we'll gradually wean off the norepinephrine keeping a mean arterial pressure above 65 Continue vasopressin Continue IV Zosyn Check a baseline serum cortisol level Check echocardiogram Check CVP Keep the patient nothing by mouth Monitor lactic acid levels Keep the patient nothing by mouth for now We'll continue to follow. Condition is critical at this point in time. Patient history of lumen catheter and arterial line condition is critical and the patient's will be kept in ICU. This evaluation was done and more than 30 minutes. The prognosis poor baseline above-mentioned comorbidities. Time with Patient: Greater than 30
--- NOTE | 2021-10-31 14:45 | ECHOF ---
Referral Reason:lv FUNCTION MEASUREMENTS -------- HEIGHT: 167.6 cm WEIGHT: 80.7 kg BP: 121/73 RVIDd: 3.1 cm (< 3.3) IVSd: 1.5 cm (0.6 - 1.1) LVIDd: 4.2 cm (3.9 - 5.3) LVPWd: 1.4 cm (0.6 - 1.1) IVSs: 1.9 cm LVIDs: 2.8 cm LVPWs: 1.6 cm LA Diam: 3.5 cm (2.7 - 3.8) LAESV Index (A-L): 22.59 ml/m Ao Diam: 3.5 cm (2.0 - 3.7) AV Cusp: 2.5 cm (1.5 - 2.6) MV EXCURSION: 14.865 mm (> 18.000) MV EF SLOPE: 120 mm/s (70 - 150) EPSS: 0.1 cm MV E Pablito: 0.52 m/s MV DecT: 173 ms MV A P[place]ito: 0.66 m/s MV E/A Ratio: 0.79 FINDINGS -------- Sinus rhythm. Suboptimal image quality - poor subcostal views. The left ventricular size is normal. There is moderate concentric left ventricular hypertrophy. O verall left ventricular systolic function is normal with, an EF between 60 - 65 %. The right ventricle is normal in size. Normal LA size by volume 22+/-6 ml/m2. The right atrium is normal in size. Aneurysmal Interatrial septum. The aortic valve is trileaflet, and appears structurally normal. No aortic stenosis or regurgitation. The mitral valve is normal. The tricuspid valve appears structurally normal. Unable to estimate RVSP due to inadequate TR jet s pectral doppler profile. The pulmonic valve is normal. The aortic root size is normal. IVC Not well visulized. There is no pericardial effusion. CONCLUSIONS -------- 1. The left ventricular size is normal. 2. There is moderate concentric left ventricular hypertrophy. 3. Overall left ventricular systolic function is normal with, an EF between 60 - 65 %. 4. Aneurysmal Interatrial septum. 5. There is no pericardial effusion. HOT STAMP OPERATOR: YANI Steinberg
--- NOTE | 2021-10-31 15:37 | P.PN ---
Subjective Progress Note Date: 10/31/21 CHIEF COMPLAINT: Abdominal pain HISTORY OF PRESENT ILLNESS: Patient is status post exploratory laparotomy with partial gastrectomy for ischemia of the lateral portion of the stomach and mild ischemia noted of the proximal jejunal. Patient currently in the ICU and intubated. He is requiring both Levophed and vasopressin for his hypotension. He is received a total of 14 L of fluid since the OR. He has been tachycardic. Low urine output. Lactic acid is at 3.5 WBC is 3.1. Patient's overall prognos is is poor and guarded. Dr. jay did discuss patient's likely poor prognosis is guarded condition with family. Patient seen and examined with Dr. jay PHYSICAL EXAM: VITAL SIGNS: Reviewed. GENERAL: Well-developed in no acute distress. HEENT: No sclera icterus. Extraocular movements grossly intact. Moist buccal mucosa. Head is atraumatic, normocephalic. ABDOMEN: Soft. Nondistended. Incisional dressing clean dry and intact NEUROLOGIC: Intubated ASSESSMENT: 1. Ischemia of the lateral portion of the stomach and mild ischemia of the proximal jejunum status post exploratory laparotomy and partial gastrectomy. Postop day #1 2. Septic shock PLAN: -Continue ICU management -Continue supportive care -Continue NG tube for decompression -Keep patient nothing by mouth -Continue antibiotics -Continue IV fluids -CODE STATUS full code. Dr. Jay did discuss case with patient's brother and did discuss comfort care measures. At this time awaiting family's decision. -DVT prophylaxis subcu heparin and GI prophylaxis Protonix Physician Bingo Cashier note has been reviewed by physician. Signing provider agrees with the documented findings, assessment, and plan of care. Objective - Vital Signs Vital signs: Vital Signs Temp 99.4 F 10/31/21 12:00 Pulse 129 H 10/31/21 12:15 Resp 32 H 10/31/21 12:15 BP 111/53 10/31/21 12:15 Pulse Ox 99 10/31/21 12:15 Intake & Output 10/30/21 10/31/21 10/31/21 18:59 06:59 18:59 Intake Total 7176.655 3986.663 2842.371 Output Total 2260 230 95 Balance 4916.655 3756.663 2747.371 Weight 94.6 kg Intake: IV 6810 3650 840 Invasive Line 5 30 30 20 Invasive Line 6 60 60 40 Sodium Chloride 0.9% 1, 1120 1560 780 000 ml @ 130 mls/hr IV . Q7H42M [facility] Rx#:[id number] Sodium Chloride 0.9% 2, 3000 2000 000 ml @ 999 mls/hr IV . Q2H1M [facility] Rx#:[id number] Intake, IV Titration 56.655 382.821 9174.371 Amount Albumin Human 5% 500 ml 500 In Empty Bag 1 bag @ 500 mls/hr IVPB ONCE [facility] Rx#: [id number] Norepinephrine 32 mg In 13.054 189.136 203.328 Sodium Chloride 0.9% 218 ml @ 0.05 MCG/KG/MIN 1.86 mls/hr IV .Q24H [facility] Rx#: [id number] Norepinephrine 4 mg In 43.601 Sodium Chloride 0.9% 250 ml @ 0.05 MCG/KG/MIN 15. 122 mls/hr IV .[id number] [facility] Rx#:[id number] Piperacillin-Tazobactam 3 100 .375 gm In Sodium Chloride 0.9% 100 ml @ 25 mls/hr IVPB Q8HR [facility] Rx# :[id number] Sodium Chloride 0.9% 1, 1000 000 ml @ 999 mls/hr IV . Q1H1M [facility] Rx#:[id number] propofoL 1,000 mg In 147.527 199.043 Empty Bag 1 bag @ Titrate IV .Q0M [facility] Rx#: [id number] Oral 0 Tube Feeding 0 Blood Product 310 Rc As-1 Unit 310 [id number] Output: Gastric Drainage 2000 Urine 210 230 95 Uretheral (Zepeda) 30 Stool 0 Urine/Stool Mix 0 Emesis 0 Oral Regurgitation 0 Estimated Blood Loss 50 Other: Voiding Method Indwelling Catheter Indwelling Catheter Indwelling Catheter # Voids 0 # Bowel Movements 0 ABP, PAP, CO, CI - Last Documented Arterial Blood Pressure 91/56 - Labs CBC & Chem 7: 10/31/21 04:24 10/31/21 04:24 Labs: Abnormal Lab Results - Last 24 Hours (Table) 10/30/21 10/30/21 10/30/21 Range/Units 10:20 16:27 17:33 WBC (3.8-10.6) k/uL RBC (4.30-5.90) m/uL Hgb (13.0-17.5) gm/dL Hct (39.0-53.0) % Plt Count (150-450) k/uL Lymphocytes # (Manual) (1.0-4.8) k/uL Metamyelocytes # (Man) (0) k/uL Nucleated RBCs (0-0) /100 WBC ABG pH 7.03 L* 7.23 L (7.35-7.45) ABG pCO2 52 H (35-45) mmHg ABG pO2 365 H 123 H (83-108) mmHg ABG HCO3 14 L 15 L (21-25) mmol/L ABG Total CO2 15 L 16 L (19-24) mmol/L ABG O2 Saturation 99.2 H 98.2 H (94-97) % Chloride (98-107) mmol/L Carbon Dioxide (22-30) mmol/L BUN (9-20) mg/dL Creatinine (0.66-1.25) mg/dL Plasma Lactic Acid Milton (0.7-2.0) mmol/L Calcium (8.4-10.2) mg/dL Crossmatch See Detail 10/30/21 10/30/21 10/30/21 Range/Units 17:35 18:55 20:50 WBC 1.7 L (3.8-10.6) k/uL RBC 4.06 L (4.30-5.90) m/uL Hgb 10.9 L (13.0-17.5) gm/dL Hct 34.4 L (39.0-53.0) % Plt Count 89 L (150-450) k/uL Lymphocytes # (Manual) (1.0-4.8) k/uL Metamyelocytes # (Man) (0) k/uL Nucleated RBCs (0-0) /100 WBC ABG pH (7.35-7.45) ABG pCO2 (35-45) mmHg ABG pO2 (83-108) mmHg ABG HCO3 (21-25) mmol/L ABG Total CO2 (19-24) mmol/L ABG O2 Saturation (94-97) % Chloride (98-107) mmol/L Carbon Dioxide (22-30) mmol/L BUN (9-20) mg/dL Creatinine (0.66-1.25) mg/dL Plasma Lactic Acid Milton 3.6 H* 3.8 H* (0.7-2.0) mmol/L Calcium (8.4-10.2) mg/dL Crossmatch 10/30/21 10/31/21 10/31/21 Range/Units 22:42 00:11 00:47 WBC 2.5 L (3.8-10.6) k/uL RBC 4.13 L (4.30-5.90) m/uL Hgb 10.9 L (13.0-17.5) gm/dL Hct 35.0 L (39.0-53.0) % Plt Count 112 L (150-450) k/uL Lymphocytes # (Manual) (1.0-4.8) k/uL Metamyelocytes # (Man) (0) k/uL Nucleated RBCs (0-0) /100 WBC ABG pH 7.15 L* (7.35-7.45) ABG pCO2 (35-45) mmHg ABG pO2 131 H (83-108) mmHg ABG HCO3 12 L (21-25) mmol/L ABG Total CO2 15 L (19-24) mmol/L ABG O2 Saturation 98.0 H (94-97) % Chloride (98-107) mmol/L Carbon Dioxide (22-30) mmol/L BUN (9-20) mg/dL Creatinine (0.66-1.25) mg/dL Plasma Lactic Acid Milton 3.7 H* (0.7-2.0) mmol/L Calcium (8.4-10.2) mg/dL Crossmatch 10/31/21 10/31/21 10/31/21 Range/Units 04:24 04:24 04:24 WBC 3.1 L (3.8-10.6) k/uL RBC (4.30-5.90) m/uL Hgb 12.0 L (13.0-17.5) gm/dL Hct 38.3 L (39.0-53.0) % Plt Count 127 L (150-450) k/uL Lymphocytes # (Manual) 0.87 L (1.0-4.8) k/uL Metamyelocytes # (Man) 0.06 H (0) k/uL Nucleated RBCs 2 H (0-0) /100 WBC ABG pH (7.35-7.45) ABG pCO2 (35-45) mmHg ABG pO2 (83-108) mmHg ABG HCO3 (21-25) mmol/L ABG Total CO2 (19-24) mmol/L ABG O2 Saturation (94-97) % Chloride 123 H (98-107) mmol/L Carbon Dioxide 11 L (22-30) mmol/L BUN 44 H (9-20) mg/dL Creatinine 2.42 H (0.66-1.25) mg/dL Plasma Lactic Acid Milton 3.5 H* (0.7-2.0) mmol/L Calcium 7.1 L (8.4-10.2) mg/dL Crossmatch 10/31/21 10/31/21 Range/Units 05:37 13:30 WBC (3.8-10.6) k/uL RBC (4.30-5.90) m/uL Hgb (13.0-17.5) gm/dL Hct (39.0-53.0) % Plt Count (150-450) k/uL Lymphocytes # (Manual) (1.0-4.8) k/uL Metamyelocytes # (Man) (0) k/uL Nucleated RBCs (0-0) /100 WBC ABG pH 7.27 L (7.35-7.45) ABG pCO2 28 L (35-45) mmHg ABG pO2 (83-108) mmHg ABG HCO3 13 L (21-25) mmol/L ABG Total CO2 14 L (19-24) mmol/L ABG O2 Saturation (94-97) % Chloride (98-107) mmol/L Carbon Dioxide (22-30) mmol/L BUN (9-20) mg/dL Creatinine (0.66-1.25) mg/dL Plasma Lactic Acid Milton 3.0 H* (0.7-2.0) mmol/L Calcium (8.4-10.2) mg/dL Crossmatch Microbiology - Last 24 Hours (Table) 10/30/21 09:37 Blood Culture - Preliminary Blood No Growth after 24 hours 10/30/21 09:31 Blood Culture - Preliminary Blood No Growth after 24 hours
[2021-10-31] MEDS ORDERED: ACETAMINOPHEN IV (For NPO) 1,000 MG in EMPTY BAG 1 BAG IVPB PRN (17:15)
[2021-10-31] MEDS ORDERED: ACETAMINOPHEN IV (For NPO) 1,000 MG in EMPTY BAG 1 BAG IVPB SCH (18:00)
[2021-11-01 00:23] LABS: Glucose,Whole Blood 36 mg/dL (75-99)
[2021-11-01] MEDS: DEXTROSE 50% SYRINGE 50 ML IVP STA ×2 (00:27→12:37)
[2021-11-01 00:52] LABS: Glucose,Whole Blood 82 mg/dL (75-99)
[2021-11-01 01:26] LABS: Glucose,Whole Blood 51 mg/dL (75-99)
[2021-11-01] MEDS ORDERED: DEXTROSE 50% SYRINGE 50 ML IVP STA (01:35)
[2021-11-01 02:00] LABS: Glucose,Whole Blood 112 mg/dL (75-99)
[2021-11-01] MEDS ORDERED: DEXTROSE 5% IN WATER 1,000 ML IV SCH (02:30)
[2021-11-01 03:14] LABS: Glucose,Whole Blood 66 mg/dL (75-99)
[2021-11-01] MEDS: SODIUM CHLORIDE 0.9% 150 ML with VASOPRESSIN 60 UNIT IV SCH ×2 (03:15)
[2021-11-01 04:17] LABS: Glucose,Whole Blood 63 mg/dL (75-99)
[2021-11-01 04:39] LABS: HCT 29.9 % (39.0-53.0); Hypochromasia Marked; MCH 27.1 pg (25.0-35.0); MCHC 32.4 g/dL (31.0-37.0); MCV 83.8 fL (80.0-100.0); Mean Platelet Volume 11.1; RBC 3.57 m/uL (4.30-5.90); RDW 15.6 % (11.5-15.5); WBC 10.4 k/uL (3.8-10.6)
[2021-11-01 04:43] LABS: HGB 9.7 gm/dL (13.0-17.5)
[2021-11-01 04:51] LABS: Calcium 6.9 mg/dL (8.4-10.2); Potassium 4.4 mmol/L (3.5-5.1)
[2021-11-01 05:30] LABS: Platelet Count 79 k/uL (150-450)
[2021-11-01] MEDS: NOREPINEPHRINE 32 MG in SODIUM CHLORIDE 0.9% 218 ML IV SCH (05:30)
[2021-11-01 05:52] LABS: ABG Base Excess -12.9 mmol/L; ABG HCO3 14 mmol/L (21-25); ABG Oxygen Saturation 98.8 % (94-97); ABG PCO2 29 mmHg (35-45); ABG PH 7.29 (7.35-7.45); ABG PO2 174 mmHg (83-108); ABG TCO2 15 mmol/L (19-24); Allen Test Performed? Yes
[2021-11-01 06:16] LABS: Glucose,Whole Blood 60 mg/dL (75-99)
--- NOTE | 2021-11-01 09:09 | XR ---
EXAMINATION TYPE: XR chest 1V portable DATE OF EXAM: 11/01/2021 COMPARISON: Chest x-ray 10/31/2021 HISTORY: Intubated TECHNIQUE: Single frontal view of the chest is obtained. FINDINGS: Endotracheal tube, NG tube, right jugular central venous catheter are overlying appropriat e positions, distal tip of the NG tube is obscured, there are overlying artifacts, patient is rotated . Right hemidiaphragm remains elevated, left hemidiaphragm is obscured. Cardiomediastinal silhouette is stable accounting for differences in technique. No evident pneumothorax. Patchy basilar density pe rsists. There is thoracic spondylosis. IMPRESSION: Basilar atelectasis, there may be associated effusion, correlate to exclude pneumonia.
[2021-11-01] MEDS: PIPERACILLIN-TAZOBACTAM 3.375 GM in SODIUM CHLORIDE 0.9% 100 ML IVPB SCH ×3 (09:49→23:17)
[2021-11-01] MEDS: HEPARIN SODIUM,PORCINE/PF 5,000 UNIT/0.5 ML SYRINGE SQ SCH ×2 (09:50→20:33)
[2021-11-01] MEDS: CHLORHEXIDINE GLUCONATE 15 ML CUP MUCOUS MEM SCH ×2 (09:50→20:33)
[2021-11-01] MEDS: PANTOPRAZOLE 40 MG/10 ML VIAL IVP SCH ×2 (09:50→20:33)
[2021-11-01 09:54] LABS: Glucose,Whole Blood 67 mg/dL (75-99)
[2021-11-01] MEDS: SODIUM CHLORIDE 0.9% 1,000 ML IV SCH ×2 (10:47→20:04)
[2021-11-01] MEDS: DEXTROSE 10% IN WATER 500 ML in EMPTY BAG 1 BAG IV SCH ×2 (11:07→20:04)
[2021-11-01 12:35] LABS: Glucose,Whole Blood 67 mg/dL (75-99)
[2021-11-01] MEDS ORDERED: DEXTROSE 50% SYRINGE 50 ML IVP ONE (12:35)
--- NOTE | 2021-11-01 13:11 | P.PN ---
Subjective Progress Note Date: 11/01/21 I was asked to evaluate this patient for an acute abdomen and the patient was being transferred to the intensive care unit for further management. This patient is mentally challenged and his not been a good reliable historian. He came into the hospital because of abdominal pain. This morning, the patient was found to be hypotensive and a critically care team was activated. Patient's BP was 60/40. He was awake at the bedside. His abdomen was distended and was quite tender in was still complaining of pain in his abdomen and he was having dry heaves. ABG was inserted and the patient had bloody output from the NG tube in order of 700 mL immediately. A total of 2 L of IV fluid bolus was given and the patient remains hypotensive and following that the patient was ordered to restart her norepinephrine infusion and the patient will be transferred to the intensive care unit. Unit of packed RBC was also ordered for this patient. General surgeries on the case as the patient had a acute abdomen and the CAT scan of the abdomen was done earlier on 10/29/2021 showed extensive portal venous gas, extensive pneumatosis involving the stomach and small bowel, dilated small bowel and stomach consistent with significant ileus. No transition point was seen. There was bilateral renal calculi up to 5 mm. No signs of any retroperitoneal lymphadenopathy. Note that this morning, the patient's white cell count is at 5.7 with a hemoglobin of 11.7. Serum bicarb is down to 12. The lactic acid level was as high as 7.5, the patient had a BUN of 39 and a creatinine of 2.8 consistent with AK I and the patient had normal LFTs. Normal coagulation profile. Started on IV Zosyn. CT of the chest that was done at time of admission showed no evidence of any pulmonary embolism. There was dilatation of the thoracic esophagus with fluid levels and dilated stomach. Recent echocardiogram from January 2020 showed a normal ejection fraction. Comorbid conditions include intellectual limitation and retardation mentally in addition CVA, diabetes mellitus and hypertension. On today's evaluation of 10/31/2021, I'm seeing this patient for a follow-up. The patient had a very complicated course overnight. The patient was taken to the operating room yesterday evening and the patient was found to have ischemia of the lateral portion of the stomach and mild/minimal ischemia of the proximal jejunum. The patient underwent a exploratory laparotomy and the patient underwent a partial gastrectomy. Postop, the patient was kept intubated and patient was sent to the intensive care unit for further care. The patient was hypotensive on pressors by the time he arrived to the ICU. Overnight, the patient was given multiple fluid boluses and the neck fluid balance since yesterday evening as an +8.6 L. This morning, the patient is sedated on propofol at 50 mcg/kg per minute. The patient remains an assist-control mode of mechanical ventilation, the patient is currently on assist-control of 28, tidal volume of 450, FiO2 of 40% with a PEEP of 5. Peak air pressures 22. Chest x- ray shows some limited atelectasis/small effusion left lung base. Orotracheal tube is in a good location the patient is also an orotracheal tube in place. Output from the OG is minimal at this point in time. The blood gases showed a pH of 7.27 with a pCO2 of 28 and pO2 of 91 and this was on the above-mentioned ventilator setting. He was dynamically, the patient is still on normal saline@ 130 mL an hour. Earlier, the norepinephrine infusion was at 0.75 mcg/kg per minute and this was brought up to 1 mg/kg per minute. Overnight, the patient was also started on vasopressin drip at 0.03 units per minutes. Urine output is minimal at this point in time. The patient has also developed an acute kidney injury. Creatinine is up to 2.4 with a mean of 44. Sodium level was 143. Lactic acid from this morning was at 3.5. The white cell count is at 3.4 with a hemoglobin of 12.0. Platelet count is 127. Patient remains nothing by mouth. Oral medications and all discontinued. On 11/01/2021, the patient remains intubated on a mechanical ventilator. The patient's condition remains critical and the patient developed septic shock and multisystem organ failure due to GI complications/acute abdomen. The patient is post partial gastrectomy and the patient is postop day #2. On today's evaluation, the patient remains on a mechanical ventilator and the patient is still sedated with propofol. Propofol residing at 50 mcg/kg per minute. The patient is quite stiff is a mechanical ventilator and the patient is an assist- control at the rate of 28 with a tidal volume of 450, FiO2 60% with a PEEP of 5. The patient has a pH of 7.3 and I attribute to 29 and pO2 of 174. Chest x-ray showing development of a left lower lobe pulmonary infiltrates/atelectasis/effusion. ET tube was in a good location. NG tube is also has a good location. Meanwhile, the patient continues to be aggressively resuscitated IV fluids. Overall fluid balance over the past 24 hours has been +5.5 L the patient received several fluid boluses. The patient has dropped the lactic acid level down to 0.1. Norepinephrine infusion is also being weaned down to 0.4 mg/kg per minute and vasopressin is at 0.03 units per minute. As such, there has been some improvement in the pressors requirements nontender the patient norepinephrine infusion was as high as 1 mcg/kg per minute. Meanwhile, the patient is developing episodes of hypoglycemia. Blood sugar is at 151. Currently he is on D5 minimal white discharge in the D10. We'll also consider possibility of starting the patient on TPN for nutritional support special with ongoing episodes of hypoglycemia. The patient is afebrile. The white second attempt 0.4 with a hemoglobin of 9.7 and a platelet count of 79 sodium is at 144 with a potassium of 4.4, serum bicarbonate of 11 degenerative 47 with a creatinine of 2.1. Cultures of been all negative thus far. Baseline serum co rtisol level at 23. TSH 00.8. NG tube is in place and output is minimal and there is no signs of any upper GI bleeding at this point in time. Surgical wound site is dry clean and intact. Objective - Vital Signs Vital signs: Vital Signs Temp 98.6 F 11/01/21 12:00 Pulse 103 H 11/01/21 12:15 Resp 29 H 11/01/21 12:15 BP 113/66 11/01/21 12:15 Pulse Ox 99 11/01/21 12:15 Intake & Output 10/31/21 11/01/21 11/01/21 18:59 06:59 18:59 Intake Total 3852.371 2737.909 1285.785 Output Total 300 765 605 Balance 3552.371 1972.909 680.785 Weight 100.7 kg 100.7 kg Intake: IV 1650 1722 1081 Dextrose 5% in Water 1, 375 000 ml @ 75 mls/hr IV . [id number] [facility] Rx#:[id number] Invasive Line 5 30 30 Invasive Line 6 60 60 Pressure Bag 72 36 Sodium Chloride 0.9% 1, 1560 1560 670 000 ml @ 75 mls/hr IV . [id number] [facility] Rx#:[id number] Intake, IV Titration 2202.371 1015.909 204.785 Amount Albumin Human 5% 500 ml 500 In Empty Bag 1 bag @ 500 mls/hr IVPB ONCE ONE Rx#: [id number] Dextrose 5% in Water 1, 225 000 ml @ 75 mls/hr IV . [id number] [facility] Rx#:[id number] Norepinephrine 32 mg In 203.328 478.374 104.785 Sodium Chloride 0.9% 218 ml @ 0.05 MCG/KG/MIN 1.86 mls/hr IV .Q24H [facility] Rx#: [id number] Piperacillin-Tazobactam 3 200 .375 gm In Sodium Chloride 0.9% 100 ml @ 25 mls/hr IVPB Q8HR [facility] Rx# :[id number] Sodium Chloride 0.9% 1, 1000 000 ml @ 999 mls/hr IV . Q1H1M [facility] Rx#:[id number] Sodium Chloride 0.9% 150 115.286 ml @ 0.03 UNITS/MIN 4.59 mls/hr IV .Q24H [facility] with Vasopressin 60 unit Rx#: [id number] propofoL 1,000 mg In 299.043 197.249 100.000 Empty Bag 1 bag @ Titrate IV .Q0M [facility] Rx#: [id number] Output: Gastric Drainage 200 Urine 300 765 405 Other: Voiding Method Indwelling Catheter Indwelling Catheter ABP, PAP, CO, CI - Last Documented Arterial Blood Pressure 111/57 - Exam GENERAL: Patient is intubated sedated, the patient is on a propofol drip for sedation. The patient is intubated on a mechanical ventilator. Head exam was generally normal. There was no scleral icterus or corneal arcus. Mucous membranes were moist. HEENT: Pupils are round and equally reacting to light. EOMI. No scleral icterus. No conjunctival pallor. Normocephalic, atraumatic. No pharyngeal erythema. No thyromegaly. Orogastric and orotracheal tube are both in place. CARDIOVASCULAR: S1 and S2 present. No murmurs, rubs, or gallops. PULMONARY: Chest is clear to auscultation, no wheezing or crackles. ABDOMEN: Absent bowel sounds and the surgical wound site over the mid abdomen is dry clean and intact. No direct tenderness. No rebound tenderness. No guarding. No organomegaly. MUSCULOSKELETAL: No joint swelling or deformity. EXTREMITIES: Extremities are cold and clammy and there are diminished pulses in all 4 extremities. No cyanosis. No clubbing. NEUROLOGICAL: Intubated, sedated, no focal neurological deficit at this point in time. Examination of the skin revealed no evidence of significant rashes, suspicious appearing nevi or other concerning lesions. - Labs CBC & Chem 7: 11/01/21 04:08 11/01/21 04:08 Labs: Abnormal Lab Results - Last 24 Hours (Table) 10/30/21 10/31/21 10/31/21 Range/Units 10:20 13:30 16:48 RBC (4.30-5.90) m/uL Hgb (13.0-17.5) gm/dL Hct (39.0-53.0) % RDW (11.5-15.5) % Plt Count (150-450) k/uL ABG pH (7.35-7.45) ABG pCO2 (35-45) mmHg ABG pO2 (83-108) mmHg ABG HCO3 (21-25) mmol/L ABG Total CO2 (19-24) mmol/L ABG O2 Saturation (94-97) % Chloride (98-107) mmol/L Carbon Dioxide (22-30) mmol/L BUN (9-20) mg/dL Creatinine (0.66-1.25) mg/dL Glucose (74-99) mg/dL POC Glucose (mg/dL) (75-99) mg/dL Plasma Lactic Acid Milton 3.0 H* 2.5 H* (0.7-2.0) mmol/L Calcium (8.4-10.2) mg/dL Crossmatch See Detail 10/31/21 11/01/21 11/01/21 Range/Units 20:09 00:20 01:25 RBC (4.30-5.90) m/uL Hgb (13.0-17.5) gm/dL Hct (39.0-53.0) % RDW (11.5-15.5) % Plt Count (150-450) k/uL ABG pH (7.35-7.45) ABG pCO2 (35-45) mmHg ABG pO2 (83-108) mmHg ABG HCO3 (21-25) mmol/L ABG Total CO2 (19-24) mmol/L ABG O2 Saturation (94-97) % Chloride (98-107) mmol/L Carbon Dioxide (22-30) mmol/L BUN (9-20) mg/dL Creatinine (0.66-1.25) mg/dL Glucose (74-99) mg/dL POC Glucose (mg/dL) 36 L 51 L (75-99) mg/dL Plasma Lactic Acid Milton 2.1 H* (0.7-2.0) mmol/L Calcium (8.4-10.2) mg/dL Crossmatch 11/01/21 11/01/21 11/01/21 Range/Units 01:58 03:13 04:08 RBC (4.30-5.90) m/uL Hgb (13.0-17.5) gm/dL Hct (39.0-53.0) % RDW (11.5-15.5) % Plt Count (150-450) k/uL ABG pH (7.35-7.45) ABG pCO2 (35-45) mmHg ABG pO2 (83-108) mmHg ABG HCO3 (21-25) mmol/L ABG Total CO2 (19-24) mmol/L ABG O2 Saturation (94-97) % Chloride (98-107) mmol/L Carbon Dioxide (22-30) mmol/L BUN (9-20) mg/dL Creatinine (0.66-1.25) mg/dL Glucose (74-99) mg/dL POC Glucose (mg/dL) 112 H 66 L (75-99) mg/dL Plasma Lactic Acid Milton 2.1 H* (0.7-2.0) mmol/L Calcium (8.4-10.2) mg/dL Crossmatch 11/01/21 11/01/21 11/01/21 Range/Units 04:08 04:08 04:15 RBC 3.57 L (4.30-5.90) m/uL Hgb 9.7 L D (13.0-17.5) gm/dL Hct 29.9 L (39.0-53.0) % RDW 15.6 H (11.5-15.5) % Plt Count 79 L (150-450) k/uL ABG pH (7.35-7.45) ABG pCO2 (35-45) mmHg ABG pO2 (83-108) mmHg ABG HCO3 (21-25) mmol/L ABG Total CO2 (19-24) mmol/L ABG O2 Saturation (94-97) % Chloride 125 H (98-107) mmol/L Carbon Dioxide 11 L (22-30) mmol/L BUN 47 H (9-20) mg/dL Creatinine 2.18 H (0.66-1.25) mg/dL Glucose 59 L (74-99) mg/dL POC Glucose (mg/dL) 63 L (75-99) mg/dL Plasma Lactic Acid Milton (0.7-2.0) mmol/L Calcium 6.9 L (8.4-10.2) mg/dL Crossmatch 11/01/21 11/01/21 11/01/21 Range/Units 05:46 06:15 09:52 RBC (4.30-5.90) m/uL Hgb (13.0-17.5) gm/dL Hct (39.0-53.0) % RDW (11.5-15.5) % Plt Count (150-450) k/uL ABG pH 7.29 L (7.35-7.45) ABG pCO2 29 L (35-45) mmHg ABG pO2 174 H (83-108) mmHg ABG HCO3 14 L (21-25) mmol/L ABG Total CO2 15 L (19-24) mmol/L ABG O2 Saturation 98.8 H (94-97) % Chloride (98-107) mmol/L Carbon Dioxide (22-30) mmol/L BUN (9-20) mg/dL Creatinine (0.66-1.25) mg/dL Glucose (74-99) mg/dL POC Glucose (mg/dL) 60 L 67 L (75-99) mg/dL Plasma Lactic Acid Milton (0.7-2.0) mmol/L Calcium (8.4-10.2) mg/dL Crossmatch 11/01/21 Range/Units 12:34 RBC (4.30-5.90) m/uL Hgb (13.0-17.5) gm/dL Hct (39.0-53.0) % RDW (11.5-15.5) % Plt Count (150-450) k/uL ABG pH (7.35-7.45) ABG pCO2 (35-45) mmHg ABG pO2 (83-108) mmHg ABG HCO3 (21-25) mmol/L ABG Total CO2 (19-24) mmol/L ABG O2 Saturation (94-97) % Chloride (98-107) mmol/L Carbon Dioxide (22-30) mmol/L BUN (9-20) mg/dL Creatinine (0.66-1.25) mg/dL Glucose (74-99) mg/dL POC Glucose (mg/dL) 67 L (75-99) mg/dL Plasma Lactic Acid Milton (0.7-2.0) mmol/L Calcium (8.4-10.2) mg/dL Crossmatch Microbiology - Last 24 Hours (Table) 10/30/21 09:37 Blood Culture - Preliminary Blood No Growth after 48 hours 10/30/21 09:31 Blood Culture - Preliminary Blood No Growth after 48 hours Assessment and Plan Plan: 1 partial gastrectomy as the patient was found to have ischemic anterior gastric wall with questionable small bowel ischemia. The patient underwent partial gastrectomy and the patient is postop day #2. Patient presented with an acute abdomen and lactic acidosis and hemodynamic instability and the patient was getting septic preoperatively. Currently postop day #2. I will this point in time, the patient remains intubated on a mechanical ventilator. The patient had multisystem organ failure including hypotension and acute kidney injury and acute respiratory failure postop. The patient was aggressively resuscitated IV fluids and pressors and the patient continues to be critically ill in the ICU, still on pressors and antibiotics. 2 septic shock post gastric surgery. Patient is being resuscitated with a combination of fluids and pressors and antibiotics, the pressor requirements have improved compared to yesterday. Patient remains on a combination of norepinephrine infusion and vasopressin infusion for now. 3 acute hypoxic respiratory failure. The patient is currently intubated on mechanical ventilator due to above-mentioned comorbidities. Not ready for any weaning for extubation due to his significant hemodynamic instability. Chest x- ray from today showing a left lower lobe pleural effusion 3 acute lactic acidosis, secondary to above, improved 4 acute kidney injury and the patient is oliguric at this point in time, the patient is oliguric/anuric at this point. The patient is being aggressively resuscitated with IV fluids and pressors. 5 history of CVA 6 diabetes mellitus 7 hypertension 8 Developmental delay and autism 9 episodic hypoglycemia, currently on D5 infusion Plan Continue ventilator support Change IV fluids to D10 at the rate of 75 mL's an hour Consult with dietary regarding possibility of TPN Continue pressor support and we'll gradually wean off the norepinephrine keeping a mean arterial pressure above 65 Continue vasopressin Continue IV Zosyn Check a baseline serum cortisol level, was elevated Check echocardiogram done on 10/29/2032 showed an ejection fraction of 60-65% Monitor CVP Keep the patient nothing by mouth Monitor lactic acid levels, levels are improving Keep the patient nothing by mouth for now We'll continue to follow. Condition is critical at this point in time. Patient history of lumen catheter and arterial line condition is critical and the patient's will be kept in ICU. This evaluation was done and more than 30 minutes. The prognosis poor baseline above-mentioned comorbidities. Critically care evaluation that was done more than 30 minutes Time with Patient: Greater than 30
[2021-11-01 13:19] LABS: Glucose,Whole Blood 116 mg/dL (75-99)
--- NOTE | 2021-11-01 13:51 | P.PN ---
Subjective Progress Note Date: 11/01/21 CHIEF COMPLAINT: Abdominal pain HISTORY OF PRESENT ILLNESS: Patient is status post exploratory laparotomy with partial gastrectomy for ischemia of the lateral portion of the stomach and mild ischemia noted of the proximal jejunal. Postop day #2. Patient currently in the ICU and intubated. He is requiring both Levophed and vasopressin for his hypotension. They are weaning down on the Levophed. Patient's urine output is better today. Tachycardia showing improvement. Afebrile WBC is 10.4 hemoglobin 9.7 platelets 79 lactic acid 2.1 creatinine 2.18 Patient seen and examined with Dr. jay PHYSICAL EXAM: VITAL SIGNS: Reviewed. GENERAL: Well-developed in no acute distress. HEENT: No sclera icterus. Extraocular movements grossly intact. Moist buccal mucosa. Head is atraumatic, normocephalic. ABDOMEN: Soft. Nondistended. Incisional dressing clean dry and intact NEUROLOGIC: Intubated ASSESSMENT: 1. Ischemia of the lateral portion of the stomach and mild ischemia of the proximal jejunum status post exploratory laparotomy and partial gastrectomy. Postop day # 2. Septic shock PLAN: -Continue ICU management -Continue supportive care -Continue NG tube for decompression -Keep patient nothing by mouth -Continue antibiotics -Continue IV fluids -Dr. jay address CODE STATUS with patient's brother. They've changed patient's CODE STATUS to no code. -DVT prophylaxis subcu heparin and GI prophylaxis Protonix Physician Shock Absorption Floor Layer note has been reviewed by physician. Signing provider agrees with the documented findings, assessment, and plan of care. Objective - Vital Signs Vital signs: Vital Signs Temp 98.6 F 11/01/21 12:00 Pulse 103 H 11/01/21 13:15 Resp 30 H 11/01/21 13:15 BP 113/73 11/01/21 13:15 Pulse Ox 100 11/01/21 13:15 Intake & Output 10/31/21 11/01/21 11/01/21 18:59 06:59 18:59 Intake Total 3852.371 2737.909 1452.451 Output Total 300 765 665 Balance 3552.371 1972.909 787.451 Weight 100.7 kg 100.7 kg Intake: IV 1650 1722 1237 Dextrose 5% in Water 1, 450 000 ml @ 75 mls/hr IV . [id number] [facility] Rx#:[id number] Invasive Line 5 30 30 Invasive Line 6 60 60 Pressure Bag 72 42 Sodium Chloride 0.9% 1, 1560 1560 745 000 ml @ 75 mls/hr IV . [id number] [facility] Rx#:[id number] Intake, IV Titration 2202.371 1015.909 215.451 Amount Albumin Human 5% 500 ml 500 In Empty Bag 1 bag @ 500 mls/hr IVPB ONCE ONE Rx#: [id number] Dextrose 5% in Water 1, 225 000 ml @ 75 mls/hr IV . [id number] [facility] Rx#:[id number] Norepinephrine 32 mg In 203.328 478.374 115.451 Sodium Chloride 0.9% 218 ml @ 0.05 MCG/KG/MIN 1.86 mls/hr IV .Q24H [facility] Rx#: [id number] Piperacillin-Tazobactam 3 200 .375 gm In Sodium Chloride 0.9% 100 ml @ 25 mls/hr IVPB Q8HR [facility] Rx# :[id number] Sodium Chloride 0.9% 1, 1000 000 ml @ 999 mls/hr IV . Q1H1M [facility] Rx#:[id number] Sodium Chloride 0.9% 150 115.286 ml @ 0.03 UNITS/MIN 4.59 mls/hr IV .Q24H [facility] with Vasopressin 60 unit Rx#: [id number] propofoL 1,000 mg In 299.043 197.249 100.000 Empty Bag 1 bag @ Titrate IV .Q0M [facility] Rx#: [id number] Output: Gastric Drainage 200 Urine 300 765 465 Other: Voiding Method Indwelling Catheter Indwelling Catheter ABP, PAP, CO, CI - Last Documented Arterial Blood Pressure 116/59 - Labs CBC & Chem 7: 11/01/21 04:08 11/01/21 04:08 Labs: Abnormal Lab Results - Last 24 Hours (Table) 10/30/21 10/31/21 10/31/21 Range/Units 10:20 13:30 16:48 RBC (4.30-5.90) m/uL Hgb (13.0-17.5) gm/dL Hct (39.0-53.0) % RDW (11.5-15.5) % Plt Count (150-450) k/uL ABG pH (7.35-7.45) ABG pCO2 (35-45) mmHg ABG pO2 (83-108) mmHg ABG HCO3 (21-25) mmol/L ABG Total CO2 (19-24) mmol/L ABG O2 Saturation (94-97) % Chloride (98-107) mmol/L Carbon Dioxide (22-30) mmol/L BUN (9-20) mg/dL Creatinine (0.66-1.25) mg/dL Glucose (74-99) mg/dL POC Glucose (mg/dL) (75-99) mg/dL Plasma Lactic Acid Milton 3.0 H* 2.5 H* (0.7-2.0) mmol/L Calcium (8.4-10.2) mg/dL Crossmatch See Detail 10/31/21 11/01/21 11/01/21 Range/Units 20:09 00:20 01:25 RBC (4.30-5.90) m/uL Hgb (13.0-17.5) gm/dL Hct (39.0-53.0) % RDW (11.5-15.5) % Plt Count (150-450) k/uL ABG pH (7.35-7.45) ABG pCO2 (35-45) mmHg ABG pO2 (83-108) mmHg ABG HCO3 (21-25) mmol/L ABG Total CO2 (19-24) mmol/L ABG O2 Saturation (94-97) % Chloride (98-107) mmol/L Carbon Dioxide (22-30) mmol/L BUN (9-20) mg/dL Creatinine (0.66-1.25) mg/dL Glucose (74-99) mg/dL POC Glucose (mg/dL) 36 L 51 L (75-99) mg/dL Plasma Lactic Acid Milton 2.1 H* (0.7-2.0) mmol/L Calcium (8.4-10.2) mg/dL Crossmatch 11/01/21 11/01/21 11/01/21 Range/Units 01:58 03:13 04:08 RBC (4.30-5.90) m/uL Hgb (13.0-17.5) gm/dL Hct (39.0-53.0) % RDW (11.5-15.5) % Plt Count (150-450) k/uL ABG pH (7.35-7.45) ABG pCO2 (35-45) mmHg ABG pO2 (83-108) mmHg ABG HCO3 (21-25) mmol/L ABG Total CO2 (19-24) mmol/L ABG O2 Saturation (94-97) % Chloride (98-107) mmol/L Carbon Dioxide (22-30) mmol/L BUN (9-20) mg/dL Creatinine (0.66-1.25) mg/dL Glucose (74-99) mg/dL POC Glucose (mg/dL) 112 H 66 L (75-99) mg/dL Plasma Lactic Acid Milton 2.1 H* (0.7-2.0) mmol/L Calcium (8.4-10.2) mg/dL Crossmatch 11/01/21 11/01/21 11/01/21 Range/Units 04:08 04:08 04:15 RBC 3.57 L (4.30-5.90) m/uL Hgb 9.7 L D (13.0-17.5) gm/dL Hct 29.9 L (39.0-53.0) % RDW 15.6 H (11.5-15.5) % Plt Count 79 L (150-450) k/uL ABG pH (7.35-7.45) ABG pCO2 (35-45) mmHg ABG pO2 (83-108) mmHg ABG HCO3 (21-25) mmol/L ABG Total CO2 (19-24) mmol/L ABG O2 Saturation (94-97) % Chloride 125 H (98-107) mmol/L Carbon Dioxide 11 L (22-30) mmol/L BUN 47 H (9-20) mg/dL Creatinine 2.18 H (0.66-1.25) mg/dL Glucose 59 L (74-99) mg/dL POC Glucose (mg/dL) 63 L (75-99) mg/dL Plasma Lactic Acid Milton (0.7-2.0) mmol/L Calcium 6.9 L (8.4-10.2) mg/dL Crossmatch 11/01/21 11/01/21 11/01/21 Range/Units 05:46 06:15 09:52 RBC (4.30-5.90) m/uL Hgb (13.0-17.5) gm/dL Hct (39.0-53.0) % RDW (11.5-15.5) % Plt Count (150-450) k/uL ABG pH 7.29 L (7.35-7.45) ABG pCO2 29 L (35-45) mmHg ABG pO2 174 H (83-108) mmHg ABG HCO3 14 L (21-25) mmol/L ABG Total CO2 15 L (19-24) mmol/L ABG O2 Saturation 98.8 H (94-97) % Chloride (98-107) mmol/L Carbon Dioxide (22-30) mmol/L BUN (9-20) mg/dL Creatinine (0.66-1.25) mg/dL Glucose (74-99) mg/dL POC Glucose (mg/dL) 60 L 67 L (75-99) mg/dL Plasma Lactic Acid Milton (0.7-2.0) mmol/L Calcium (8.4-10.2) mg/dL Crossmatch 11/01/21 11/01/21 Range/Units 12:34 13:17 RBC (4.30-5.90) m/uL Hgb (13.0-17.5) gm/dL Hct (39.0-53.0) % RDW (11.5-15.5) % Plt Count (150-450) k/uL ABG pH (7.35-7.45) ABG pCO2 (35-45) mmHg ABG pO2 (83-108) mmHg ABG HCO3 (21-25) mmol/L ABG Total CO2 (19-24) mmol/L ABG O2 Saturation (94-97) % Chloride (98-107) mmol/L Carbon Dioxide (22-30) mmol/L BUN (9-20) mg/dL Creatinine (0.66-1.25) mg/dL Glucose (74-99) mg/dL POC Glucose (mg/dL) 67 L 116 H (75-99) mg/dL Plasma Lactic Acid Milton (0.7-2.0) mmol/L Calcium (8.4-10.2) mg/dL Crossmatch Microbiology - Last 24 Hours (Table) 10/30/21 09:37 Blood Culture - Preliminary Blood No Growth after 48 hours 10/30/21 09:31 Blood Culture - Preliminary Blood No Growth after 48 hours
--- NOTE | 2021-11-01 14:44 | P.PN ---
Subjective Progress Note Date: 11/01/21 Patient was admitted for nausea vomiting diarrhea believed to have gastroenteritis. Patient continued to have vomiting and started having abdominal tenderness because of which CT of the abdomen was obtained which showed pneumatosis coli along with some gas in the venous system concern for ischemic bowel. Patient was started on Zosyn. Patient subsequently decompensated patient became hypotensive with BP of 60/40 transferred to ICU patient was given 3 L of boluses of IV fluid NG tube was placed which showed bloody output . Patient in septic shock and receiving norepinephrine at this time. Recent echo showed normal ejection fraction. Patient had CTA of the chest which was negative for pulmonary embolism patient creatinine has worsened and went up to 2.80 today from 1.14 yesterday and this is secondary to acute tubular necrosis from sepsis and septic shock. Patient does have lactic acidosi s, patient does have lactic acidosis with lactic acidosis 7.5. Patient will be given 1 L of IV fluids continue pressor support. he is intubated and sedated. 10/31/2021 Patient is started having urine output. Patient underwent a arthrotomy yesterday and found to have ischemia of the lateral portion of the stomach and ischemia of the proximal jejunum patient underwent partial gastrectomy. Patient is presently on that to pressors maximized on norepinephrine, patient is also on vasopressin receiving albumin, IV fluids started having minimal urine output patient was anuric last night. Patient's chloride is highly elevated leading to metabolic acidosis patient also has an anion gap metabolic acidosis from lactic acidosis which appears to be improving at this time patient's overall clinical condition is guarded and the prognosis is poor. Patient Y blood cell count went down in fact patient is neutropenic now. Patient is presently not receiving any nutrition at this time. 11/01/2021 Patient is seen in follow-up continues to be closely monitored in the ICU in critical condition. Multiple medical consultations including pulmonary lightning rod erector, cardiology, surgery following closely. Patient is status post partial gastrectomy postop day #2. Patient continues on IV Zosyn along with normal saline at 75 ML per hour. Per nursing staff patient continues on Levophed along with vasopressin for pressor support. Patient not tolerating weaning very well to assess mentation. Patient continues on sedation of propofol and will continue. Chest x-ray today shows basilar atelectasis, may be associated effusion and to correlate to exclude pneumonia. Per nursing staff there has been minimal NG tube output and of note on the x-ray the distal tip of the NG tube is obscured although unable to fully see as there is overlying artifacts with the telemetry monitoring and the patient is rotated. Patient is also having hypoglycemic events and was started on dextrose. Surgery plans for TPN for nutritional support. Family at the bedside today and their questions and concerns were answered. Labs: WBC is 10.4, hgb is 9.7, platelets are 79, sodium is 144, potassium is 4.4, chloride is 125, CO2 is 11 bun is 47, creatinine is 2.18, lactic acid is 2.1, calcium is 6.9 Review of systems: Unable to obtain as patient is intubated and sedated Active Medications Chlorhexidine Gluconate (Chlorhexidine Gluconate 15 Ml Cup) 15 ml MUCOUS MEM BID [facility] Last Admin: 11/01/21 09:50 Dose: 15 ml Documented by: Heparin Sodium (Porcine) (Heparin Sodium,Porcine/Pf 5,000 Unit/0.5 Ml Syringe) 5,000 unit SQ Q12HR [facility] Last Admin: 11/01/21 09:50 Dose: 5,000 unit Documented by: Hydromorphone HCl (Hydromorphone 1 Mg/Ml 1 Ml Syringe) 0.5 mg IVP Q2HR PRN PRN Reason: Pain Last Admin: 10/31/21 08:32 Dose: 0.5 mg Documented by: Sodium Chloride (Saline 0.9%) 1,000 mls @ 75 mls/hr IV .[id number] [facility] Last Admin: 11/01/21 10:47 Dose: 75 mls/hr Documented by: Piperacillin Sod/Tazobactam (Sod 3.375 gm/ Sodium Chloride) 100 mls @ 25 mls/hr IVPB Q8HR [facility]; Protocol Last Admin: 11/01/21 09:49 Dose: 25 mls/hr Documented by: Norepinephrine Bitartrate 32 (mg/ Sodium Chloride) 250 mls @ 1.86 mls/hr IV .Q24H [facility]; Protocol Last Titration: 11/01/21 13:35 Dose: 0.28 mcg/kg/min, 10.419 mls/hr Documented by: Propofol 1,000 mg/ IV Solution 100 mls @ 0 mls/hr IV .Q0M [facility]; Protocol Last Admin: 11/01/21 10:05 Dose: 33 mcg/kg/min, 19.939 mls/hr Documented by: Vasopressin 60 unit/ Sodium (Chloride) 153 mls @ 4.59 mls/hr IV .Q24H [facility]; Protocol Last Admin: 11/01/21 03:15 Dose: 0.03 units/min, 4.59 mls/hr Documented by: Acetaminophen 1,000 mg/ IV (Solution) 100 mls @ 400 mls/hr IVPB Q6HR PRN PRN Reason: FEVER/ MILD PAIN Stop: 11/01/21 23:00 Last Admin: 10/31/21 17:17 Dose: 400 mls/hr Documented by: Dextrose/Water 500 ml/ IV (Solution) 500 mls @ 75 mls/hr IV .Q6H40M [facility] Last Admin: 11/01/21 11:07 Dose: 75 mls/hr Documented by: Nystatin (Nystatin 100,000 Unit/Gm Powd 15 Gm) 1 applic TOPICAL DAILY PRN; Protocol PRN Reason: Rash Ondansetron HCl (Ondansetron 4 Mg/2 Ml Vial) 4 mg IVP Q8HR PRN PRN Reason: Nausea And Vomiting Last Admin: 10/30/21 09:30 Dose: 4 mg Documented by: Pantoprazole Sodium (Pantoprazole 40 Mg/10 Ml Vial) 40 mg IVP BID [facility] Last Admin: 11/01/21 09:50 Dose: 40 mg Documented by: PHYSICAL EXAMINATION: GENERAL: Patient is intubated sedated HEENT: Pupils are round and equally reacting to light. EOMI. No scleral icterus. No conjunctival pallor. Normocephalic, atraumatic. No pharyngeal erythema. No t hyromegaly. CARDIOVASCULAR: S1 and S2 present. No murmurs, rubs, or gallops. PULMONARY: Chest is clear to auscultation, no wheezing or crackles. ABDOMEN: Sluggish bowel sounds, mildly distended and taut, NG tube noted with very little output MUSCULOSKELETAL: No joint swelling or deformity. EXTREMITIES: No cyanosis, clubbing, or pedal edema. bilateral upper and lower extremities cool to the touch NEUROLOGICAL: Intubated SKIN: No rashes. Assessment: -Septic shock status post partial gastrectomy for ischemic stomach patient also had ischemic ileum. Patient is continued on IV fluids that have been changed to D10 in water. Patient continues on pressor support which will be continued pa tient will be continued on Zosyn close monitoring urine output is minimal patient is oliguric. Patient is presently on 2 pressors of levophed and vasopressin -Anion gap metabolic acidosis secondary to lactic acidosis which improved patient doesn't have non-anion gap, acidosis secondary to hyperchloremia -Acute renal failure secondary to acute blood loss from septic shock, patient is having some urine output and kidney functions trending down, cr is 2.18 today -Syncope with loss of consciousness, hypotensive secondary to above -History of CVA TIA -History diabetes mellitus type 2, uncontrolled at this time with hypoglycemia and patient started on D10 in water. TPN being initiated with dietitian consult -History hypertension, hypotensive on admission with a blood pressure in the 70s, holding off on antihypertensive medications, continues on pressor support and fluid resuscitation -History of autism -History of intellectual impairment -GI Prophylaxis Protonix -DVT Prophylaxis Subcu heparin -NO CODE Plan: Recommend to continue with ICU management and close monitoring. Continues on m echanical vent with an FI02 of 40% and peep of 5. Patient continues to be in critical condition with an extremely poor and guarded prognosis. Patient continues on pressor support with attempts at weaning, but unsuccessful thus far. Patient is NPO and was not receiving nutrition given the severity of the ischemia and dietitian being consulted for TPN initiation. Patient having episodes of hypoglycemia and was started on D10 and will continue with close monitoring. NG tube with minimal output as mentioned previously and will discuss further with surgery. Code status was addressed with family and patient is no code. Prognosis remains quite guarded and will continue to monitor closely. The impression and plan of care has been dictated by Rozina Nam, nurse practitioner as directed. MD Thuan I have performed a history and examination and MDM of this patient, discussed the same with the dictator, and agree with the dictator's assessment and plan as written ,documented as a scribe. Based on total visit time, I have performed more than 50% of the visit. Total number of minutes spent on this visit, 20 minutes. Any additional findings or plans will be noted. Objective - Vital Signs Vital signs: Vital Signs Temp 99.5 F 11/01/21 04:00 Pulse 109 H 11/01/21 07:15 Resp 29 H 11/01/21 07:15 BP 118/73 11/01/21 07:15 Pulse Ox 100 11/01/21 07:15 Intake & Output 10/31/21 11/01/21 11/01/21 18:59 06:59 18:59 Intake Total 3852.371 2737.909 152.254 Output Total 300 765 45 Balance 3552.371 1972.909 107.254 Weight 100.7 kg Intake: IV 1650 1722 136 Invasive Line 5 30 30 Invasive Line 6 60 60 Pressure Bag 72 6 Sodium Chloride 0.9% 1, 1560 1560 130 000 ml @ 130 mls/hr IV . Q7H42M [facility] Rx#:[id number] Intake, IV Titration 2202.371 1015.909 16.254 Amount Albumin Human 5% 500 ml 500 In Empty Bag 1 bag @ 500 mls/hr IVPB ONCE ONE Rx#: [id number] Dextrose 5% in Water 1, 225 000 ml @ 75 mls/hr IV . [id number] [facility] Rx#:[id number] Norepinephrine 32 mg In 203.328 478.374 16.254 Sodium Chloride 0.9% 218 ml @ 0.05 MCG/KG/MIN 1.86 mls/hr IV .Q24H [facility] Rx#: [id number] Piperacillin-Tazobactam 3 200 .375 gm In Sodium Chloride 0.9% 100 ml @ 25 mls/hr IVPB Q8HR [facility] Rx# :[id number] Sodium Chloride 0.9% 1, 1000 000 ml @ 999 mls/hr IV . Q1H1M ONE Rx#:[id number] Sodium Chloride 0.9% 150 115.286 ml @ 0.03 UNITS/MIN 4.59 mls/hr IV .Q24H [facility] with Vasopressin 60 unit Rx#: [id number] propofoL 1,000 mg In 299.043 197.249 Empty Bag 1 bag @ Titrate IV .Q0M [facility] Rx#: [id number] Output: Urine 300 765 45 Other: Voiding Method Indwelling Catheter Indwelling Catheter ABP, PAP, CO, CI - Last Documented Arterial Blood Pressure 115/58 - Labs CBC & Chem 7: 11/01/21 04:08 11/01/21 04:08 Labs: Abnormal Lab Results - Last 24 Hours (Table) 10/30/21 10/31/21 10/31/21 Range/Units 10:20 13:30 16:48 RBC (4.30-5.90) m/uL Hgb (13.0-17.5) gm/dL Hct (39.0-53.0) % RDW (11.5-15.5) % Plt Count (150-450) k/uL ABG pH (7.35-7.45) ABG pCO2 (35-45) mmHg ABG pO2 (83-108) mmHg ABG HCO3 (21-25) mmol/L ABG Total CO2 (19-24) mmol/L ABG O2 Saturation (94-97) % Chloride (98-107) mmol/L Carbon Dioxide (22-30) mmol/L BUN (9-20) mg/dL Creatinine (0.66-1.25) mg/dL Glucose (74-99) mg/dL POC Glucose (mg/dL) (75-99) mg/dL Plasma Lactic Acid Milton 3.0 H* 2.5 H* (0.7-2.0) mmol/L Calcium (8.4-10.2) mg/dL Crossmatch See Detail 10/31/21 11/01/21 11/01/21 Range/Units 20:09 00:20 01:25 RBC (4.30-5.90) m/uL Hgb (13.0-17.5) gm/dL Hct (39.0-53.0) % RDW (11.5-15.5) % Plt Count (150-450) k/uL ABG pH (7.35-7.45) ABG pCO2 (35-45) mmHg ABG pO2 (83-108) mmHg ABG HCO3 (21-25) mmol/L ABG Total CO2 (19-24) mmol/L ABG O2 Saturation (94-97) % Chloride (98-107) mmol/L Carbon Dioxide (22-30) mmol/L BUN (9-20) mg/dL Creatinine (0.66-1.25) mg/dL Glucose (74-99) mg/dL POC Glucose (mg/dL) 36 L 51 L (75-99) mg/dL Plasma Lactic Acid Milton 2.1 H* (0.7-2.0) mmol/L Calcium (8.4-10.2) mg/dL Crossmatch 11/01/21 11/01/21 11/01/21 Range/Units 01:58 03:13 04:08 RBC (4.30-5.90) m/uL Hgb (13.0-17.5) gm/dL Hct (39.0-53.0) % RDW (11.5-15.5) % Plt Count (150-450) k/uL ABG pH (7.35-7.45) ABG pCO2 (35-45) mmHg ABG pO2 (83-108) mmHg ABG HCO3 (21-25) mmol/L ABG Total CO2 (19-24) mmol/L ABG O2 Saturation (94-97) % Chloride (98-107) mmol/L Carbon Dioxide (22-30) mmol/L BUN (9-20) mg/dL Creatinine (0.66-1.25) mg/dL Glucose (74-99) mg/dL POC Glucose (mg/dL) 112 H 66 L (75-99) mg/dL Plasma Lactic Acid Milton 2.1 H* (0.7-2.0) mmol/L Calcium (8.4-10.2) mg/dL Crossmatch 11/01/21 11/01/21 11/01/21 Range/Units 04:08 04:08 04:15 RBC 3.57 L (4.30-5.90) m/uL Hgb 9.7 L D (13.0-17.5) gm/dL Hct 29.9 L (39.0-53.0) % RDW 15.6 H (11.5-15.5) % Plt Count 79 L (150-450) k/uL ABG pH (7.35-7.45) ABG pCO2 (35-45) mmHg ABG pO2 (83-108) mmHg ABG HCO3 (21-25) mmol/L ABG Total CO2 (19-24) mmol/L ABG O2 Saturation (94-97) % Chloride 125 H (98-107) mmol/L Carbon Dioxide 11 L (22-30) mmol/L BUN 47 H (9-20) mg/dL Creatinine 2.18 H (0.66-1.25) mg/dL Glucose 59 L (74-99) mg/dL POC Glucose (mg/dL) 63 L (75-99) mg/dL Plasma Lactic Acid Milton (0.7-2.0) mmol/L Calcium 6.9 L (8.4-10.2) mg/dL Crossmatch 11/01/21 11/01/21 Range/Units 05:46 06:15 RBC (4.30-5.90) m/uL Hgb (13.0-17.5) gm/dL Hct (39.0-53.0) % RDW (11.5-15.5) % Plt Count (150-450) k/uL ABG pH 7.29 L (7.35-7.45) ABG pCO2 29 L (35-45) mmHg ABG pO2 174 H (83-108) mmHg ABG HCO3 14 L (21-25) mmol/L ABG Total CO2 15 L (19-24) mmol/L ABG O2 Saturation 98.8 H (94-97) % Chloride (98-107) mmol/L Carbon Dioxide (22-30) mmol/L BUN (9-20) mg/dL Creatinine (0.66-1.25) mg/dL Glucose (74-99) mg/dL POC Glucose (mg/dL) 60 L (75-99) mg/dL Plasma Lactic Acid Milton (0.7-2.0) mmol/L Calcium (8.4-10.2) mg/dL Crossmatch Microbiology - Last 24 Hours (Table) 10/30/21 09:37 Blood Culture - Preliminary Blood No Growth after 24 hours 10/30/21 09:31 Blood Culture - Preliminary Blood No Growth after 24 hours
[2021-11-01 14:49] LABS: Glucose,Whole Blood 101 mg/dL (75-99)
[2021-11-01] MEDS ORDERED: MVI, ADULT NO.4 WITH VIT K 10 ML, TRACE (CONC-1ML/DOSE) 1 ML, POTASSIUM ACETATE 20 MEQ,... IV SCH ×6 (16:00)
[2021-11-01 18:50] LABS: Glucose,Whole Blood 85 mg/dL (75-99)
[2021-11-01 19:56] LABS: Glucose,Whole Blood 65 mg/dL (75-99)
[2021-11-01 22:23] LABS: Glucose,Whole Blood 89 mg/dL (75-99)
[2021-11-02 02:42] LABS: Glucose,Whole Blood 91 mg/dL (75-99)
[2021-11-02] MEDS: DEXTROSE 10% IN WATER 500 ML in EMPTY BAG 1 BAG IV SCH ×2 (03:36→09:47)
[2021-11-02] MEDS: SODIUM CHLORIDE 0.9% 1,000 ML IV SCH (03:51)
[2021-11-02 04:06] LABS: Glucose,Whole Blood 102 mg/dL (75-99)
[2021-11-02 04:20] LABS: HCT 26.8 % (39.0-53.0); HGB 8.6 gm/dL (13.0-17.5); Hypochromasia Moderate; MCH 26.9 pg (25.0-35.0); MCHC 32.2 g/dL (31.0-37.0); MCV 83.4 fL (80.0-100.0); Poikilocytosis Slight; RBC 3.21 m/uL (4.30-5.90); RDW 15.4 % (11.5-15.5)
[2021-11-02 04:53] LABS: Albumin 1.5 g/dL (3.5-5.0); Calcium 7.2 mg/dL (8.4-10.2); Magnesium 2.1 mg/dL (1.6-2.3); Phosphorus 3.6 mg/dL (2.5-4.5); Potassium 3.9 mmol/L (3.5-5.1); Total Bilirubin 1.7 mg/dL (0.2-1.3); Total Protein 3.2 g/dL (6.3-8.2)
[2021-11-02 04:54] LABS: Band Neutrophils % 48 %; Eosinophils # (M) 0.12 k/uL (0-0.7); Lymphocytes # (M) 0.18 k/uL (1.0-4.8); Monocytes # (M) 0.36 k/uL (0-1.0); Neutrophils % (M) 41 %; Nucleated Red Blood Cells 0 /100 WBC (0-0); Total Cells Counted 200
[2021-11-02 04:55] LABS: Anisocytosis (M) Present; Poikilocytosis (M) Present
[2021-11-02 04:56] LABS: Platelet Count 46 k/uL (150-450)
[2021-11-02 05:56] LABS: ABG Base Excess -10.1 mmol/L; ABG HCO3 16 mmol/L (21-25); ABG Oxygen Saturation 98.8 % (94-97); ABG PCO2 31 mmHg (35-45); ABG PH 7.32 (7.35-7.45); ABG PO2 184 mmHg (83-108); ABG TCO2 17 mmol/L (19-24); Allen Test Performed? Yes
[2021-11-02 05:56] LABS: Glucose,Whole Blood 106 mg/dL (75-99)
--- NOTE | 2021-11-02 07:10 | XR ---
EXAMINATION TYPE: XR chest 1V portable DATE OF EXAM: 11/02/2021 COMPARISON: November 01, 2021 HISTORY: SOB, Follow Up FINDINGS: Indwelling tubes and catheters are unchanged. Perihilar and basilar infiltrates persist Stable appearance of the cardio-mediastinal structures at this time. Pleural effusion unchanged. IMPRESSION: 1. Stable portable chest. Clinical correlation and follow up until resolution is recommended.
[2021-11-02 08:43] LABS: Glucose,Whole Blood 102 mg/dL (75-99)
[2021-11-02] MEDS: SODIUM CHLORIDE 0.9% 150 ML with VASOPRESSIN 60 UNIT IV SCH ×2 (08:56)
[2021-11-02] MEDS: PANTOPRAZOLE 40 MG/10 ML VIAL IVP SCH ×2 (09:57→20:28)
[2021-11-02] MEDS: CHLORHEXIDINE GLUCONATE 15 ML CUP MUCOUS MEM SCH ×2 (09:57→20:28)
[2021-11-02] MEDS: HEPARIN SODIUM,PORCINE/PF 5,000 UNIT/0.5 ML SYRINGE SQ SCH ×2 (09:58→20:31)
[2021-11-02] MEDS: PIPERACILLIN-TAZOBACTAM 3.375 GM in SODIUM CHLORIDE 0.9% 100 ML IVPB SCH ×3 (09:58→23:33)
[2021-11-02] MEDS: HYDROmorphone 1 MG/ML 1 ML SYRINGE IVP PRN ×4 (09:59→22:48)
[2021-11-02] MEDS ORDERED: MAGNESIUM SULFATE-D5W PMX 1 GM in DEXTROSE/WATER 1 100ML.BAG IVPB ONE (10:00)
[2021-11-02] MEDS: FUROSEMIDE 10 MG/ML 4 ML VIAL IV SCH ×2 (10:46→20:28)
--- NOTE | 2021-11-02 10:58 | P.PN ---
Subjective Progress Note Date: 11/02/21 Principal diagnosis: Ischemic stomach The patient has made some improvements. He is currently off vasopressors. He's had good urine output. His vital signs appear more stable. He did have a prostate 500 mL out through the NG tube overnight Objective - Vital Signs Vital signs: Vital Signs Temp 98.6 F 11/02/21 08:00 Pulse 112 H 11/02/21 10:00 Resp 28 H 11/02/21 10:00 BP 120/71 11/02/21 10:00 Pulse Ox 97 11/02/21 10:00 Intake & Output 11/01/21 11/02/21 11/02/21 18:59 06:59 18:59 Intake Total 2573.443 2722.126 660.02 Output Total 1060 855 475 Balance 2096.324 8224.126 185.02 Weight 100.7 kg 102 kg Intake: IV 2167 2508 438 Dextrose 5% in Water 1, 825 975 150 000 ml @ 75 mls/hr IV . [id number] [facility] Rx#:[id number] Invasive Line 5 30 30 10 Invasive Line 6 60 60 20 Mvi, Adult No.4 with Vit 60 390 90 K 10 ml Trace (Conc-1Ml/ Dose) 1 ml Potassium Acetate 20 meq Sodium Acetate 20 meq Calcium Gluconate 1 gm In Amino Acid 4.25%-D10w 1,000 ml @ 30 mls/hr IV .Q24H [facility] Rx#:[id number] Pressure Bag 72 78 18 Sodium Chloride 0.9% 1, 1120 975 150 000 ml @ 20 mls/hr IV . Q24H [facility] Rx#:[id number] Intake, IV Titration 406.443 214.126 192.02 Amount Dextrose 10% in Water 500 40 ml In Empty Bag 1 bag @ 75 mls/hr IV .Q6H40M [facility] Rx#:[id number] Magnesium Sulfate-D5w Pmx 100 1 gm In Dextrose/Water 1 100ml.bag @ 100 mls/hr IVPB ONCE ONE Rx#: [id number] Norepinephrine 32 mg In 152.679 0.263 Sodium Chloride 0.9% 218 ml @ 0.05 MCG/KG/MIN 1.86 mls/hr IV .Q24H [facility] Rx#: [id number] Sodium Chloride 0.9% 150 93.713 ml @ 0.03 UNITS/MIN 4.59 mls/hr IV .Q24H [facility] with Vasopressin 60 unit Rx#: [id number] propofoL 1,000 mg In 253.764 120.150 52.02 Empty Bag 1 bag @ Titrate IV .Q0M [facility] Rx#: [id number] TPN/PPN 30 Pressure Bag 30 Output: Gastric Drainage 200 Urine 860 855 475 Other: Voiding Method Indwelling Catheter Indwelling Catheter Indwelling Catheter ABP, PAP, CO, CI - Last Documented Arterial Blood Pressure 143/60 - Gastrointestinal Gastrointestinal Comment(s): Abdomen soft. Incision is clean dry intact. There is no significant distention - Labs CBC & Chem 7: 11/02/21 03:55 11/02/21 03:55 Labs: Abnormal Lab Results - Last 24 Hours (Table) 11/01/21 11/01/21 11/01/21 Range/Units 07:05 12:34 13:17 RBC (4.30-5.90) m/uL Hgb (13.0-17.5) gm/dL Hct (39.0-53.0) % Plt Count (150-450) k/uL Lymphocytes # (Manual) (1.0-4.8) k/uL ABG pH (7.35-7.45) ABG pCO2 (35-45) mmHg ABG pO2 (83-108) mmHg ABG HCO3 (21-25) mmol/L ABG Total CO2 (19-24) mmol/L ABG O2 Saturation (94-97) % Chloride (98-107) mmol/L Carbon Dioxide (22-30) mmol/L BUN (9-20) mg/dL Creatinine (0.66-1.25) mg/dL Glucose (74-99) mg/dL POC Glucose (mg/dL) 67 L 116 H (75-99) mg/dL Plasma Lactic Acid Milton 2.1 H* (0.7-2.0) mmol/L Calcium (8.4-10.2) mg/dL Total Bilirubin (0.2-1.3) mg/dL AST (17-59) U/L ALT (4-49) U/L Total Protein (6.3-8.2) g/dL Albumin (3.5-5.0) g/dL 11/01/21 11/01/2122 Range/Units 14:47 19:54 03:55 RBC 3.21 L (4.30-5.90) m/uL Hgb 8.6 L (13.0-17.5) gm/dL Hct 26.8 L (39.0-53.0) % Plt Count 46 L (150-450) k/uL Lymphocytes # (Manual) 0.18 L (1.0-4.8) k/uL ABG pH (7.35-7.45) ABG pCO2 (35-45) mmHg ABG pO2 (83-108) mmHg ABG HCO3 (21-25) mmol/L ABG Total CO2 (19-24) mmol/L ABG O2 Saturation (94-97) % Chloride (98-107) mmol/L Carbon Dioxide (22-30) mmol/L BUN (9-20) mg/dL Creatinine (0.66-1.25) mg/dL Glucose (74-99) mg/dL POC Glucose (mg/dL) 101 H 65 L (75-99) mg/dL Plasma Lactic Acid Milton (0.7-2.0) mmol/L Calcium (8.4-10.2) mg/dL Total Bilirubin (0.2-1.3) mg/dL AST (17-59) U/L ALT (4-49) U/L Total Protein (6.3-8.2) g/dL Albumin (3.5-5.0) g/dL 11/02/21 11/02/21 11/02/21 Range/Units 03:55 04:04 05:52 RBC (4.30-5.90) m/uL Hgb (13.0-17.5) gm/dL Hct (39.0-53.0) % Plt Count (150-450) k/uL Lymphocytes # (Manual) (1.0-4.8) k/uL ABG pH 7.32 L (7.35-7.45) ABG pCO2 31 L (35-45) mmHg ABG pO2 184 H (83-108) mmHg ABG HCO3 16 L (21-25) mmol/L ABG Total CO2 17 L (19-24) mmol/L ABG O2 Saturation 98.8 H (94-97) % Chloride 124 H (98-107) mmol/L Carbon Dioxide 15 L (22-30) mmol/L BUN 41 H (9-20) mg/dL Creatinine 1.39 H (0.66-1.25) mg/dL Glucose 101 H (74-99) mg/dL POC Glucose (mg/dL) 102 H (75-99) mg/dL Plasma Lactic Acid Milton (0.7-2.0) mmol/L Calcium 7.2 L (8.4-10.2) mg/dL Total Bilirubin 1.7 H (0.2-1.3) mg/dL AST 145 H (17-59) U/L ALT 59 H (4-49) U/L Total Protein 3.2 L (6.3-8.2) g/dL Albumin 1.5 L (3.5-5.0) g/dL 11/02/21 11/02/21 Range/Units 05:54 08:41 RBC (4.30-5.90) m/uL Hgb (13.0-17.5) gm/dL Hct (39.0-53.0) % Plt Count (150-450) k/uL Lymphocytes # (Manual) (1.0-4.8) k/uL ABG pH (7.35-7.45) ABG pCO2 (35-45) mmHg ABG pO2 (83-108) mmHg ABG HCO3 (21-25) mmol/L ABG Total CO2 (19-24) mmol/L ABG O2 Saturation (94-97) % Chloride (98-107) mmol/L Carbon Dioxide (22-30) mmol/L BUN (9-20) mg/dL Creatinine (0.66-1.25) mg/dL Glucose (74-99) mg/dL POC Glucose (mg/dL) 106 H 102 H (75-99) mg/dL Plasma Lactic Acid Milton (0.7-2.0) mmol/L Calcium (8.4-10.2) mg/dL Total Bilirubin (0.2-1.3) mg/dL AST (17-59) U/L ALT (4-49) U/L Total Protein (6.3-8.2) g/dL Albumin (3.5-5.0) g/dL Microbiology - Last 24 Hours (Table) 10/30/21 09:37 Blood Culture - Preliminary Blood No Growth after 48 hours 10/30/21 09:31 Blood Culture - Preliminary Blood No Growth after 48 hours Assessment and Plan Assessment: Status post partial gastrectomy for ischemic stomach. Patient has had some improvement. He'll continue receive supportive care. He remains on the ventilator.
[2021-11-02] MEDS: DEXTROSE 10% IN WATER 500 ML IV SCH (11:51)
[2021-11-02 12:00] LABS: Glucose,Whole Blood 86 mg/dL (75-99)
--- NOTE | 2021-11-02 13:18 | P.PN ---
Subjective Progress Note Date: 11/02/21 I was asked to evaluate this patient for an acute abdomen and the patient was being transferred to the intensive care unit for further management. This patient is mentally challenged and his not been a good reliable historian. He came into the hospital because of abdominal pain. This morning, the patient was found to be hypotensive and a critically care team was activated. Patient's BP was 60/40. He was awake at the bedside. His abdomen was distended and was quite tender in was still complaining of pain in his abdomen and he was having dry heaves. ABG was inserted and the patient had bloody output from the NG tube in order of 700 mL immediately. A total of 2 L of IV fluid bolus was given and the patient remains hypotensive and following that the patient was ordered to restart her norepinephrine infusion and the patient will be transferred to the intensive care unit. Unit of packed RBC was also ordered for this patient. General surgeries on the case as the patient had a acute abdomen and the CAT scan of the abdomen was done earlier on 10/29/2021 showed extensive portal venous gas, extensive pneumatosis involving the stomach and small bowel, dilated small bowel and stomach consistent with significant ileus. No transition point was seen. There was bilateral renal calculi up to 5 mm. No signs of any retroperitoneal lymphadenopathy. Note that this morning, the patient's white cell count is at 5.7 with a hemoglobin of 11.7. Serum bicarb is down to 12. The lactic acid level was as high as 7.5, the patient had a BUN of 39 and a creatinine of 2.8 consistent with AK I and the patient had normal LFTs. Normal coagulation profile. Started on IV Zosyn. CT of the chest that was done at time of admission showed no evidence of any pulmonary embolism. There was dilatation of the thoracic esophagus with fluid levels and dilated stomach. Recent echocardiogram from January 2020 showed a normal ejection fraction. Comorbid conditions include intellectual limitation and retardation mentally in addition CVA, diabetes mellitus and hypertension. On today's evaluation of 10/31/2021, I'm seeing this patient for a follow-up. The patient had a very complicated course overnight. The patient was taken to the operating room yesterday evening and the patient was found to have ischemia of the lateral portion of the stomach and mild/minimal ischemia of the proximal jejunum. The patient underwent a exploratory laparotomy and the patient underwent a partial gastrectomy. Postop, the patient was kept intubated and patient was sent to the intensive care unit for further care. The patient was hypotensive on pressors by the time he arrived to the ICU. Overnight, the patient was given multiple fluid boluses and the neck fluid balance since yesterday evening as an +8.6 L. This morning, the patient is sedated on propofol at 50 mcg/kg per minute. The patient remains an assist-control mode of mechanical ventilation, the patient is currently on assist-control of 28, tidal volume of 450, FiO2 of 40% with a PEEP of 5. Peak air pressures 22. Chest x- ray shows some limited atelectasis/small effusion left lung base. Orotracheal tube is in a good location the patient is also an orotracheal tube in place. Output from the OG is minimal at this point in time. The blood gases showed a pH of 7.27 with a pCO2 of 28 and pO2 of 91 and this was on the above-mentioned ventilator setting. He was dynamically, the patient is still on normal saline@ 130 mL an hour. Earlier, the norepinephrine infusion was at 0.75 mcg/kg per minute and this was brought up to 1 mg/kg per minute. Overnight, the patient was also started on vasopressin drip at 0.03 units per minutes. Urine output is minimal at this point in time. The patient has also developed an acute kidney injury. Creatinine is up to 2.4 with a mean of 44. Sodium level was 143. Lactic acid from this morning was at 3.5. The white cell count is at 3.4 with a hemoglobin of 12.0. Platelet count is 127. Patient remains nothing by mouth. Oral medications and all discontinued. On 11/01/2021, the patient remains intubated on a mechanical ventilator. The patient's condition remains critical and the patient developed septic shock and multisystem organ failure due to GI complications/acute abdomen. The patient is post partial gastrectomy and the patient is postop day #2. On today's evaluation, the patient remains on a mechanical ventilator and the patient is still sedated with propofol. Propofol residing at 50 mcg/kg per minute. The patient is quite stiff is a mechanical ventilator and the patient is an assist- control at the rate of 28 with a tidal volume of 450, FiO2 60% with a PEEP of 5. The patient has a pH of 7.3 and I attribute to 29 and pO2 of 174. Chest x-ray showing development of a left lower lobe pulmonary infiltrates/atelectasis/effusion. ET tube was in a good location. NG tube is also has a good location. Meanwhile, the patient continues to be aggressively resuscitated IV fluids. Overall fluid balance over the past 24 hours has been +5.5 L the patient received several fluid boluses. The patient has dropped the lactic acid level down to 0.1. Norepinephrine infusion is also being weaned down to 0.4 mg/kg per minute and vasopressin is at 0.03 units per minute. As such, there has been some improvement in the pressors requirements nontender the patient norepinephrine infusion was as high as 1 mcg/kg per minute. Meanwhile, the patient is developing episodes of hypoglycemia. Blood sugar is at 151. Currently he is on D5 minimal white discharge in the D10. We'll also consider possibility of starting the patient on TPN for nutritional support special with ongoing episodes of hypoglycemia. The patient is afebrile. The white second attempt 0.4 with a hemoglobin of 9.7 and a platelet count of 79 sodium is at 144 with a potassium of 4.4, serum bicarbonate of 11 degenerative 47 with a creatinine of 2.1. Cultures of been all negative thus far. Baseline serum co rtisol level at 23. TSH 00.8. NG tube is in place and output is minimal and there is no signs of any upper GI bleeding at this point in time. Surgical wound site is dry clean and intact. 11/02/2021, I'm seeing the patient postop day #3. The patient seems to be more stable compared to yesterday. Noted the patient had an extensive surgery which included a partial gastrectomy. Postop, the patient developed hypotension/shock/multisystem organ failure. He has a more stable condition on today's evaluation. He is on assist-control mode rate of 28, tidal volume of 450, FiO2 of 30% and a PEEP of 5. The blood gas showed a pH of 7.32 with a pCO2 of 31 and pO2 of 184. 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 Chest x-ray showing pulmonary vascular congestion and some edema in addition to development of a left-sided pleural effusion. ET tube remains in a good location. Despite his fluid overload, the patient's is oxygenating adequately. Input output balance is +5.5 L over the past 24 hours. The NG tube output has been 500 mL of gastric material over the past 12 hours. The patient also on TPN running at 30 mL an hour. Bowel sounds are absent. Surgical wound sites are clean and intact. Patient has adequate pulses in all 4 extremities. Urine output is adequate and the creatinine is down to 1.39 with a BUN of 41 and a sodium level of 142. The patient is afebrile. The patient is hemodynamically stable. The patient is also off the D10 infusion. No further episodes of hypoglycemia this point in time. Objective - Vital Signs Vital signs: Vital Signs Temp 98.6 F 11/02/21 12:00 Pulse 107 H 11/02/21 12:00 Resp 28 H 11/02/21 12:00 BP 120/71 11/02/21 12:00 Pulse Ox 97 11/02/21 12:00 Intake & Output 11/01/21 11/02/21 11/02/21 18:59 06:59 18:59 Intake Total 2573.443 2722.126 746.02 Output Total 1060 855 825 Balance 2543.146 3302.126 -78.98 Weight 100.7 kg 102 kg Intake: IV 2167 2508 504 Dextrose 5% in Water 1, 825 975 150 000 ml @ 75 mls/hr IV . [id number] ROBERTO Rx#:[id number] Invasive Line 5 30 30 20 Invasive Line 6 60 60 40 Mvi, Adult No.4 with Vit 60 390 120 K 10 ml Trace (Conc-1Ml/ Dose) 1 ml Potassium Acetate 20 meq Sodium Acetate 20 meq Calcium Gluconate 1 gm In Amino Acid 4.25%-D10w 1,000 ml @ 30 mls/hr IV .Q24H ROBERTO Rx#:[id number] Pressure Bag 72 78 24 Sodium Chloride 0.9% 1, 1120 975 150 000 ml @ 20 mls/hr IV . Q24H ROBERTO Rx#:[id number] Intake, IV Titration 406.443 214.126 212.02 Amount Dextrose 10% in Water 500 60 ml In Empty Bag 1 bag @ 75 mls/hr IV .Q6H40M ROBERTO Rx#:[id number] Magnesium Sulfate-D5w Pmx 100 1 gm In Dextrose/Water 1 100ml.bag @ 100 mls/hr IVPB ONCE ONE Rx#: [id number] Norepinephrine 32 mg In 152.679 0.263 Sodium Chloride 0.9% 218 ml @ 0.05 MCG/KG/MIN 1.86 mls/hr IV .Q24H ROBERTO Rx#: [id number] Sodium Chloride 0.9% 150 93.713 ml @ 0.03 UNITS/MIN 4.59 mls/hr IV .Q24H ROBERTO with Vasopressin 60 unit Rx#: [id number] propofoL 1,000 mg In 253.764 120.150 52.02 Empty Bag 1 bag @ Titrate IV .Q0M ROBERTO Rx#: [id number] TPN/PPN 30 Pressure Bag 30 Output: Gastric Drainage 200 Urine 860 855 825 Other: Voiding Method Indwelling Catheter Indwelling Catheter Indwelling Catheter ABP, PAP, CO, CI - Last Documented Arterial Blood Pressure 119/61 - Exam GENERAL: Patient is intubated sedated, the patient is on a propofol drip for sedation. The patient is intubated on a mechanical ventilator. Head exam was generally normal. There was no scleral icterus or corneal arcus. M ucous membranes were moist. HEENT: Pupils are round and equally reacting to light. EOMI. No scleral icterus. No conjunctival pallor. Normocephalic, atraumatic. No pharyngeal erythema. No thyromegaly. Orogastric and orotracheal tube are both in place. CARDIOVASCULAR: S1 and S2 present. No murmurs, rubs, or gallops. PULMONARY: Chest is clear to auscultation, no wheezing or crackles. ABDOMEN: Absent bowel sounds and the surgical wound site over the mid abdomen is dry clean and intact. No direct tenderness. No rebound tenderness. No guarding. No organomegaly. MUSCULOSKELETAL: No joint swelling or deformity. EXTREMITIES: Extremities are cold and clammy and there are diminished pulses in all 4 extremities. No cyanosis. No clubbing. NEUROLOGICAL: Intubated, sedated, no focal neurological deficit at this point in time. Examination of the skin revealed no evidence of significant rashes, suspicious appearing nevi or other concerning lesions. - Labs CBC & Chem 7: 11/02/21 03:55 11/02/21 03:55 Labs: Abnormal Lab Results - Last 24 Hours (Table) 11/01/21 11/01/21 11/01/21 Range/Units 07:05 13:17 14:47 RBC (4.30-5.90) m/uL Hgb (13.0-17.5) gm/dL Hct (39.0-53.0) % Plt Count (150-450) k/uL Lymphocytes # (Manual) (1.0-4.8) k/uL ABG pH (7.35-7.45) ABG pCO2 (35-45) mmHg ABG pO2 (83-108) mmHg ABG HCO3 (21-25) mmol/L ABG Total CO2 (19-24) mmol/L ABG O2 Saturation (94-97) % Chloride (98-107) mmol/L Carbon Dioxide (22-30) mmol/L BUN (9-20) mg/dL Creatinine (0.66-1.25) mg/dL Glucose (74-99) mg/dL POC Glucose (mg/dL) 116 H 101 H (75-99) mg/dL Plasma Lactic Acid Milton 2.1 H* (0.7-2.0) mmol/L Calcium (8.4-10.2) mg/dL Total Bilirubin (0.2-1.3) mg/dL AST (17-59) U/L ALT (4-49) U/L Total Protein (6.3-8.2) g/dL Albumin (3.5-5.0) g/dL 11/01/21 11/02/21 11/02/21 Range/Units 19:54 03:55 03:55 RBC 3.21 L (4.30-5.90) m/uL Hgb 8.6 L (13.0-17.5) gm/dL Hct 26.8 L (39.0-53.0) % Plt Count 46 L (150-450) k/uL Lymphocytes # (Manual) 0.18 L (1.0-4.8) k/uL ABG pH (7.35-7.45) ABG pCO2 (35-45) mmHg ABG pO2 (83-108) mmHg ABG HCO3 (21-25) mmol/L ABG Total CO2 (19-24) mmol/L ABG O2 Saturation (94-97) % Chloride 124 H (98-107) mmol/L Carbon Dioxide 15 L (22-30) mmol/L BUN 41 H (9-20) mg/dL Creatinine 1.39 H (0.66-1.25) mg/dL Glucose 101 H (74-99) mg/dL POC Glucose (mg/dL) 65 L (75-99) mg/dL Plasma Lactic Acid Milton (0.7-2.0) mmol/L Calcium 7.2 L (8.4-10.2) mg/dL Total Bilirubin 1.7 H (0.2-1.3) mg/dL AST 145 H (17-59) U/L ALT 59 H (4-49) U/L Total Protein 3.2 L (6.3-8.2) g/dL Albumin 1.5 L (3.5-5.0) g/dL 11/02/21 11/02/21 11/02/21 Range/Units 04:04 05:52 05:54 RBC (4.30-5.90) m/uL Hgb (13.0-17.5) gm/dL Hct (39.0-53.0) % Plt Count (150-450) k/uL Lymphocytes # (Manual) (1.0-4.8) k/uL ABG pH 7.32 L (7.35-7.45) ABG pCO2 31 L (35-45) mmHg ABG pO2 184 H (83-108) mmHg ABG HCO3 16 L (21-25) mmol/L ABG Total CO2 17 L (19-24) mmol/L ABG O2 Saturation 98.8 H (94-97) % Chloride (98-107) mmol/L Carbon Dioxide (22-30) mmol/L BUN (9-20) mg/dL Creatinine (0.66-1.25) mg/dL Glucose (74-99) mg/dL POC Glucose (mg/dL) 102 H 106 H (75-99) mg/dL Plasma Lactic Acid Milton (0.7-2.0) mmol/L Calcium (8.4-10.2) mg/dL Total Bilirubin (0.2-1.3) mg/dL AST (17-59) U/L ALT (4-49) U/L Total Protein (6.3-8.2) g/dL Albumin (3.5-5.0) g/dL 11/02/21 Range/Units 08:41 RBC (4.30-5.90) m/uL Hgb (13.0-17.5) gm/dL Hct (39.0-53.0) % Plt Count (150-450) k/uL Lymphocytes # (Manual) (1.0-4.8) k/uL ABG pH (7.35-7.45) ABG pCO2 (35-45) mmHg ABG pO2 (83-108) mmHg ABG HCO3 (21-25) mmol/L ABG Total CO2 (19-24) mmol/L ABG O2 Saturation (94-97) % Chloride (98-107) mmol/L Carbon Dioxide (22-30) mmol/L BUN (9-20) mg/dL Creatinine (0.66-1.25) mg/dL Glucose (74-99) mg/dL POC Glucose (mg/dL) 102 H (75-99) mg/dL Plasma Lactic Acid Milton (0.7-2.0) mmol/L Calcium (8.4-10.2) mg/dL Total Bilirubin (0.2-1.3) mg/dL AST (17-59) U/L ALT (4-49) U/L Total Protein (6.3-8.2) g/dL Albumin (3.5-5.0) g/dL Microbiology - Last 24 Hours (Table) 10/30/21 09:37 Blood Culture - Preliminary Blood No Growth after 72 hours 10/30/21 09:31 Blood Culture - Preliminary Blood No Growth after 72 hours Assessment and Plan Plan: 1 partial gastrectomy as the patient was found to have ischemic anterior gastric wall with questionable small bowel ischemia. The patient underwent partial gastrectomy and the patient is postop day #3. Patient presented with an acute abdomen and lactic acidosis and hemodynamic instability and the patient was getting septic preoperatively. Currently postop day #3. Postop, the patient developed shock and multisystem organ failure. Aggressively resuscitated with IV fluids and pressors and antibiotics and the patient is doing better on today's evaluation. Urine output is improved. Creatinine is improved. The patient is also off pressors. 2 septic shock post gastric surgery. Patient is being resuscitated with a combination of fluids and pressors and antibiotics, the pressor requirements have improved compared to yesterday. Patient remains on a combination of norepinephrine infusion and vasopressin infusion for now. 3 acute hypoxic respiratory failure. The patient is currently intubated on mechanical ventilator due to above-mentioned comorbidities. Not ready for any weaning for extubation due to his significant hemodynamic instability. Chest x- ray from today showing a left lower lobe pleural effusion and addition to that the patient developed pulmonary vessel congestion/edema. 3 acute lactic acidosis, secondary to above, improved 4 acute kidney injury. The patient's creatinine is down to 1.9. Urine output is improved. 5 history of CVA 6 diabetes mellitus 7 hypertension 8 Developmental delay and autism 9 episodic hypoglycemia, currently on D5 infusion Plan Continue ventilator support Continue TPN for nutritional support IV fluids to KVO Start the patient on Lasix 40 mg every 12 hours The patient is currently off pressors Continue IV Zosyn Check echocardiogram done on 10/29/2032 showed an ejection fraction of 60-65% Monitor CVP Keep the patient nothing by mouth Monitor lactic acid levels, levels are improving Keep the patient nothing by mouth for now Take this patient off Precedex and assess mental status and assess his readiness to wean Keep NG tube in place and monitor the output condition is critical and the patient's will be kept in ICU. This evaluation was done and more than 30 minutes. The prognosis poor baseline above-mentioned comorbidities. Critically care evaluation that was done more than 30 minutes Time with Patient: Greater than 30
[2021-11-02 14:05] LABS: Glucose,Whole Blood 81 mg/dL (75-99)
--- NOTE | 2021-11-02 14:37 | P.PN ---
Subjective Progress Note Date: 11/02/21 Patient was admitted for nausea vomiting diarrhea believed to have gastroenteritis. Patient continued to have vomiting and started having abdominal tenderness because of which CT of the abdomen was obtained which showed pneumatosis coli along with some gas in the venous system concern for ischemic bowel. Patient was started on Zosyn. Patient subsequently decompensated patient became hypotensive with BP of 60/40 transferred to ICU patient was given 3 L of boluses of IV fluid NG tube was placed which showed bloody output . Patient in septic shock and receiving norepinephrine at this time. Recent echo showed normal ejection fraction. Patient had CTA of the chest which was negative for pulmonary embolism patient creatinine has worsened and went up to 2.80 today from 1.14 yesterday and this is secondary to acute tubular necrosis from sepsis and septic shock. Patient does have lactic acidosis, patient does have lactic acidosis with lactic acidosis 7.5. Patient will be given 1 L of IV fluids continue pressor support. he is intubated and sedated. 10/31/2021 Patient is started having urine output. Patient underwent a arthrotomy yesterday and found to have ischemia of the lateral portion of the stomach and ischemia of the proximal jejunum patient underwent partial gastrectomy. Patient is presently on that to pressors maximized on norepinephrine, patient is also on vasopressin receiving albumin, IV fluids started having minimal urine output patient was anuric last night. Patient's chloride is highly elevated leading to metabolic acidosis patient also has an anion gap metabolic acidosis from lactic acidosis which appears to be improving at this time patient's overall clinical condition is guarded and the prognosis is poor. Patient Y blood cell count went down in fact patient is neutropenic now. Patient is presently not receiving any nutrition at this time. 11/01/2021 Patient is seen in follow-up continues to be closely monitored in the ICU in critical condition. Multiple medical consultations including pulmonary neon sign installer, cardiology, surgery following closely. Patient is status post partial gastrectomy postop day #2. Patient continues on IV Zosyn along with normal saline at 75 ML per hour. Per nursing staff patient continues on Levophed along with vasopressin for pressor support. Patient not tolerating weaning very well to assess mentation. Patient continues on sedation of propofol and will continue. Chest x-ray today shows basilar atelectasis, may be associated effusion and to correlate to exclude pneumonia. Per nursing staff there has been minimal NG tube output and of note on the x-ray the distal tip of the NG tube is obscured although unable to fully see as there is overlying artifacts with the telemetry monitoring and the patient is rotated. Patient is also having hypoglycemic events and was started on dextrose. Surgery plans for TPN for nutritional support. Family at the bedside today and their questions and concerns were answered. Labs: WBC is 10.4, hgb is 9.7, platelets are 79, sodium is 144, potassium is 4.4, chloride is 125, CO2 is 11 bun is 47, creatinine is 2.18, lactic acid is 2.1, calcium is 6.9 11/02/2021 Patient evaluated today in the ICU he is postoperative day #3 for partial gastrectomy, currently intubated with an FiO2 of 30% with a PEEP of 5. Current oxygen saturations are 99 to 100%. Blood pressures 119/61, respirations 28, heart rate 107, afebrile. Chest x-ray today shows a stable chest with pleural effusion unchanged, perihilar and basilar infiltrates persist. Per nurse about 500 mLs output from NG tube in the last 12 hours. Continues on IV lasix, TPN, IV zosyn. Pressor support and propfol are currently on hold. Blood pressures are maintaining 120s systolic, heart rate 113 sinus tachycardia, afebrile, respirations 27. Patient with indwelling catheter, urine is dark susana, per nurse no BM since surgery, bowels are absent left lower quadrant, hypoactive to the right quadrant. Labs today show white count 6, hemoglobin 8.6, sodium 142, potassium 3.9, chloride 124, CO2 15, BUN 41, creatinine 1.39, blood glucose in the 80s, calcium 7.2, total bili 1.7, AST 145, ALT 59. Patient is being followed closely by pulmonary, cardiology, and surgical services. Review of systems: Unable to obtain as patient is intubated and sedated PHYSICAL EXAMINATION: GENERAL: Patient is intubated sedated HEENT: Pupils are round and equally reacting to light. EOMI. No scleral icterus. No conjunctival pallor. Normocephalic, atraumatic. No pharyngeal erythema. No thyromegaly. CARDIOVASCULAR: S1 and S2 present. No murmurs, rubs, or gallops. PULMONARY: Chest is clear to auscultation, no wheezing or crackles. ABDOMEN: Sluggish bowel sounds, mildly distended and taut, NG tube in place. Absent bowel sounds left lower quad. MUSCULOSKELETAL: No joint swelling or deformity. EXTREMITIES: No cyanosis, clubbing, generalized peripheral edema noted. NEUROLOGICAL: Intubated SKIN: No rashes. Assessment: -Post operative day #3 partical gastrectomy for ischemic stomach and also had ischemic ileum. -Septic shock status postoperatively. Blood sugars have stabilize, patient is now off D10 gtt, and fluids are running at 20 cc per hour. Patient is off pressor support with stable blood pressures now 120's systolic. Patient is on IV zosyn close monitoring urine output is minimal patient is oliguric. -Elevated liver enzymes most probably due to hepatic congestion from fluid overload state currently receiving IV lasix -Anion gap metabolic acidosis secondary to lactic acidosis which improved patient doesn't have non-anion gap, acidosis secondary to hyperchloremia -Acute renal failure secondary to acute blood loss from septic shock, patient is having some urine output and kidney functions trending down, cr is 1.39 today -Syncope with loss of consciousness, hypotensive secondary to above -History of CVA TIA -History diabetes mellitus type 2, uncontrolled at this time, now currently stable, off the D10 gtt. TPN being initiated with dietitian consult -History hypertension, hypotensive on admission with a blood pressure in the 70s, holding off on antihypertensive medications. Patient is now maintaining blood pressures off pressor support. -History of autism -History of intellectual impairment -GI Prophylaxis Protonix -DVT Prophylaxis Subcu heparin -NO CODE Plan: Recommend to continue with ICU management and close monitoring. Continues on mechanical vent with an FI02 of 30% and peep of 5. Patient continues to be in critical condition with an extremely poor and guarded prognosis. Patient has been weaned off pressor support with stable blood pressures, continue monitoring closely. Weaned off sedation for now and plan to evaluate for possible extubation. Patient is NPO and was not receiving nutrition given the severity of the ischemia, dietary was consulted and patient was started on TPN and also continues with NGT in place. Patient having episodes of hypoglycemia and was started on D10, which blood glucose has stabilized and patient is now off the D10 gtt and will continue with close monitoring. NG tube with about 500 mLs of urine output in the last 12 hours, continue to monitor. Code status was addressed with family and patient is no code. Prognosis remains quite guarded and will continue to monitor closely. Objective - Vital Signs Vital signs: Vital Signs Temp 98.6 F 11/02/21 08:00 Pulse 112 H 11/02/21 10:00 Resp 28 H 11/02/21 10:00 BP 120/71 11/02/21 10:00 Pulse Ox 97 11/02/21 10:00 Intake & Output 11/01/21 11/02/21 11/02/21 18:59 06:59 18:59 Intake Total 2573.443 2722.126 660.02 Output Total 1060 855 475 Balance 8881.488 4627.126 185.02 Weight 100.7 kg 102 kg Intake: IV 2167 2508 438 Dextrose 5% in Water 1, 825 975 150 000 ml @ 75 mls/hr IV . [id number]#:[id number] Invasive Line 5 30 30 10 Invasive Line 6 60 60 20 Mvi, Adult No.4 with Vit 60 390 90 K 10 ml Trace (Conc-1Ml/ Dose) 1 ml Potassium Acetate 20 meq Sodium Acetate 20 meq Calcium Gluconate 1 gm In Amino Acid 4.25%-D10w 1,000 ml @ 30 mls/hr IV .Q24H [facility] Rx#:[id number] Pressure Bag 72 78 18 Sodium Chloride 0.9% 1, 1120 975 150 000 ml @ 20 mls/hr IV . Q24H [facility] Rx#:[id number] Intake, IV Titration 406.443 214.126 192.02 Amount Dextrose 10% in Water 500 40 ml In Empty Bag 1 bag @ 75 mls/hr IV .Q6H40M [facility] Rx#:[id number] Magnesium Sulfate-D5w Pmx 100 1 gm In Dextrose/Water 1 100ml.bag @ 100 mls/hr IVPB ONCE ONE Rx#: [id number] Norepinephrine 32 mg In 152.679 0.263 Sodium Chloride 0.9% 218 ml @ 0.05 MCG/KG/MIN 1.86 mls/hr IV .Q24H [facility] Rx#: [id number] Sodium Chloride 0.9% 150 93.713 ml @ 0.03 UNITS/MIN 4.59 mls/hr IV .Q24H [facility] with Vasopressin 60 unit Rx#: [id number] propofoL 1,000 mg In 253.764 120.150 52.02 Empty Bag 1 bag @ Titrate IV .Q0M [facility] Rx#: [id number] TPN/PPN 30 Pressure Bag 30 Output: Gastric Drainage 200 Urine 860 855 475 Other: Voiding Method Indwelling Catheter Indwelling Catheter Indwelling Catheter ABP, PAP, CO, CI - Last Documented Arterial Blood Pressure 143/60 - Labs CBC & Chem 7: 11/02/21 03:55 11/02/21 03:55 Labs: Abnormal Lab Results - Last 24 Hours (Table) 11/01/21 11/01/21 11/01/21 Range/Units 07:05 12:34 13:17 RBC (4.30-5.90) m/uL Hgb (13.0-17.5) gm/dL Hct (39.0-53.0) % Plt Count (150-450) k/uL Lymphocytes # (Manual) (1.0-4.8) k/uL ABG pH (7.35-7.45) ABG pCO2 (35-45) mmHg ABG pO2 (83-108) mmHg ABG HCO3 (21-25) mmol/L ABG Total CO2 (19-24) mmol/L ABG O2 Saturation (94-97) % Chloride (98-107) mmol/L Carbon Dioxide (22-30) mmol/L BUN (9-20) mg/dL Creatinine (0.66-1.25) mg/dL Glucose (74-99) mg/dL POC Glucose (mg/dL) 67 L 116 H (75-99) mg/dL Plasma Lactic Acid Milton 2.1 H* (0.7-2.0) mmol/L Calcium (8.4-10.2) mg/dL Total Bilirubin (0.2-1.3) mg/dL AST (17-59) U/L ALT (4-49) U/L Total Protein (6.3-8.2) g/dL Albumin (3.5-5.0) g/dL 11/01/21 11/01/21 11/02/21 Range/Units 14:47 19:54 03:55 RBC 3.21 L (4.30-5.90) m/uL Hgb 8.6 L (13.0-17.5) gm/dL Hct 26.8 L (39.0-53.0) % Plt Count 46 L (150-450) k/uL Lymphocytes # (Manual) 0.18 L (1.0-4.8) k/uL ABG pH (7.35-7.45) ABG pCO2 (35-45) mmHg ABG pO2 (83-108) mmHg ABG HCO3 (21-25) mmol/L ABG Total CO2 (19-24) mmol/L ABG O2 Saturation (94-97) % Chloride (98-107) mmol/L Carbon Dioxide (22-30) mmol/L BUN (9-20) mg/dL Creatinine (0.66-1.25) mg/dL Glucose (74-99) mg/dL POC Glucose (mg/dL) 101 H 65 L (75-99) mg/dL Plasma Lactic Acid [place] (0.7-2.0) mmol/L Calcium (8.4-10.2) mg/dL Total Bilirubin (0.2-1.3) mg/dL AST (17-59) U/L ALT (4-49) U/L Total Protein (6.3-8.2) g/dL Albumin (3.5-5.0) g/dL 11/02/21 11/02/21 11/02/21 Range/Units 03:55 04:04 05:52 RBC (4.30-5.90) m/uL Hgb (13.0-17.5) gm/dL Hct (39.0-53.0) % Plt Count (150-450) k/uL Lymphocytes # (Manual) (1.0-4.8) k/uL ABG pH 7.32 L (7.35-7.45) ABG pCO2 31 L (35-45) mmHg ABG pO2 184 H (83-108) mmHg ABG HCO3 16 L (21-25) mmol/L ABG Total CO2 17 L (19-24) mmol/L ABG O2 Saturation 98.8 H (94-97) % Chloride 124 H (98-107) mmol/L Carbon Dioxide 15 L (22-30) mmol/L BUN 41 H (9-20) mg/dL Creatinine 1.39 H (0.66-1.25) mg/dL Glucose 101 H (74-99) mg/dL POC Glucose (mg/dL) 102 H (75-99) mg/dL Plasma Lactic Acid Milton (0.7-2.0) mmol/L Calcium 7.2 L (8.4-10.2) mg/dL Total Bilirubin 1.7 H (0.2-1.3) mg/dL AST 145 H (17-59) U/L ALT 59 H (4-49) U/L Total Protein 3.2 L (6.3-8.2) g/dL Albumin 1.5 L (3.5-5.0) g/dL 11/02/21 11/02/21 Range/Units 05:54 08:41 RBC (4.30-5.90) m/uL Hgb (13.0-17.5) gm/dL Hct (39.0-53.0) % Plt Count (150-450) k/uL Lymphocytes # (Manual) (1.0-4.8) k/uL ABG pH (7.35-7.45) ABG pCO2 (35-45) mmHg ABG pO2 (83-108) mmHg ABG HCO3 (21-25) mmol/L ABG Total CO2 (19-24) mmol/L ABG O2 Saturation (94-97) % Chloride (98-107) mmol/L Carbon Dioxide (22-30) mmol/L BUN (9-20) mg/dL Creatinine (0.66-1.25) mg/dL Glucose (74-99) mg/dL POC Glucose (mg/dL) 106 H 102 H (75-99) mg/dL Plasma Lactic Acid Milton (0.7-2.0) mmol/L Calcium (8.4-10.2) mg/dL Total Bilirubin (0.2-1.3) mg/dL AST (17-59) U/L ALT (4-49) U/L Total Protein (6.3-8.2) g/dL Albumin (3.5-5.0) g/dL Microbiology - Last 24 Hours (Table) 10/30/21 09:37 Blood Culture - Preliminary Blood No Growth after 72 hours 10/30/21 09:31 Blood Culture - Preliminary Blood No Growth after 72 hours Assessment and Plan Time with Patient: Greater than 30
[2021-11-02 15:57] LABS: Glucose,Whole Blood 94 mg/dL (75-99)
[2021-11-02] MEDS ORDERED: POTASSIUM ACETATE IV SCH ×6 (16:00)
[2021-11-02] MEDS ORDERED: [UNRECOGNIZED DRUG - OTHER] IV SCH ×6 (16:00)
[2021-11-02] MEDS ORDERED: CALCIUM GLUCONATE IV SCH ×6 (16:00)
[2021-11-02] MEDS ORDERED: SODIUM ACETATE IV SCH ×6 (16:00)
[2021-11-02] MEDS: [UNRECOGNIZED DRUG - OTHER] IV SCH ×8 (17:39)
[2021-11-02] MEDS: POTASSIUM ACETATE IV SCH ×8 (17:39)
[2021-11-02] MEDS: SODIUM ACETATE IV SCH ×8 (17:39)
[2021-11-02] MEDS: CALCIUM GLUCONATE IV SCH ×8 (17:39)
[2021-11-02 20:44] LABS: Glucose,Whole Blood 88 mg/dL (75-99)
[2021-11-02 23:57] LABS: Glucose,Whole Blood 91 mg/dL (75-99)
[2021-11-03] MEDS: HYDROmorphone 1 MG/ML 1 ML SYRINGE IVP PRN ×4 (01:30→20:56)
[2021-11-03 04:05] LABS: Glucose,Whole Blood 94 mg/dL (75-99)
[2021-11-03 04:37] LABS: Albumin 1.6 g/dL (3.5-5.0); Calcium 7.2 mg/dL (8.4-10.2); Magnesium 2.2 mg/dL (1.6-2.3); Phosphorus 3.3 mg/dL (2.5-4.5); Potassium 3.6 mmol/L (3.5-5.1); Total Bilirubin 2.4 mg/dL (0.2-1.3); Total Protein 3.5 g/dL (6.3-8.2)
[2021-11-03 05:36] LABS: ABG HCO3 19 mmol/L (21-25); ABG Oxygen Saturation 98.6 % (94-97); ABG PCO2 32 mmHg (35-45); ABG PH 7.39 (7.35-7.45); ABG PO2 119 mmHg (83-108); ABG TCO2 20 mmol/L (19-24); Allen Test Performed? Yes
[2021-11-03 05:47] LABS: Basophils % (A) 0 %; Eosinophils # (A) 0.1 k/uL (0-0.7); Eosinophils % (A) 1 %; HCT 24.9 % (39.0-53.0); HGB 8.2 gm/dL (13.0-17.5); Hypochromasia Moderate; Lymphocytes # (A) 0.4 k/uL (1.0-4.8); Lymphocytes % (A) 6 %; MCHC 32.9 g/dL (31.0-37.0); MCV 82.2 fL (80.0-100.0); Mean Platelet Volume 11.1; Monocytes # (A) 0.4 k/uL (0-1.0); Monocytes % (A) 5 %; Neutrophils % (A) 87 %; Poikilocytosis Slight; RBC 3.02 m/uL (4.30-5.90); RDW 15.5 % (11.5-15.5)
[2021-11-03 05:49] LABS: Platelet Count 42 k/uL (150-450)
--- NOTE | 2021-11-03 07:35 | XR ---
EXAMINATION TYPE: XR chest 1V portable DATE OF EXAM: 11/03/2021 COMPARISON: 11/02/2021 HISTORY: SOB, Follow Up FINDINGS: Indwelling tubes and catheters are unchanged. No change in bibasilar opacities. Stable appearance of the cardio-mediastinal structures at this time. Pleural effusion unchanged. IMPRESSION: 1. Stable portable chest. Clinical correlation and follow up until resolution is recommended.
[2021-11-03] MEDS: SODIUM CHLORIDE 0.9% 150 ML with VASOPRESSIN 60 UNIT IV SCH ×2 (07:42)
[2021-11-03 08:14] LABS: Glucose,Whole Blood 100 mg/dL (75-99)
[2021-11-03] MEDS: POTASSIUM ACETATE IV SCH ×24 (08:26→22:31)
[2021-11-03] MEDS: SODIUM ACETATE IV SCH ×24 (08:26→22:31)
[2021-11-03] MEDS: CALCIUM GLUCONATE IV SCH ×24 (08:26→22:31)
[2021-11-03] MEDS: [UNRECOGNIZED DRUG - OTHER] IV SCH ×24 (08:26→22:31)
[2021-11-03] MEDS: PANTOPRAZOLE 40 MG/10 ML VIAL IVP SCH ×2 (08:33→20:44)
[2021-11-03] MEDS: FUROSEMIDE 10 MG/ML 4 ML VIAL IV SCH (08:33)
[2021-11-03] MEDS: HEPARIN SODIUM,PORCINE/PF 5,000 UNIT/0.5 ML SYRINGE SQ SCH (08:33)
[2021-11-03] MEDS: PIPERACILLIN-TAZOBACTAM 3.375 GM in SODIUM CHLORIDE 0.9% 100 ML IVPB SCH ×3 (08:33→23:22)
[2021-11-03] MEDS: CHLORHEXIDINE GLUCONATE 15 ML CUP MUCOUS MEM SCH ×2 (08:33→20:44)
[2021-11-03] MEDS: DEXTROSE 10% IN WATER 500 ML IV SCH (08:34)
[2021-11-03] MEDS ORDERED: POTASSIUM BICARBONATE/CIT AC 20 MEQ TABLET.EFF PO ONE (09:51)
--- NOTE | 2021-11-03 11:09 | P.PN ---
Subjective Progress Note Date: 11/03/21 Principal diagnosis: Gastric ischemia The patient has been a sedation holiday. He is still encephalopathic and not following commands. His vital signs remained stable. He is off pressors. Objective - Vital Signs Vital signs: Vital Signs Temp 98.6 F 11/03/21 08:00 Pulse 105 H 11/03/21 10:00 Resp 28 H 11/03/21 10:00 BP 136/81 11/03/21 10:00 Pulse Ox 95 11/03/21 10:00 Intake & Output 11/02/21 11/03/21 11/03/21 18:59 06:59 18:59 Intake Total 1308.02 1182 1454.917 Output Total 2009 2295 780 Balance -701.98 -1113 674.917 Weight 100.2 kg Intake: IV 926 942 314 Dextrose 5% in Water 1, 150 000 ml @ 75 mls/hr IV . [id number] [facility] Rx#:[id number] Invasive Line 5 30 30 10 Invasive Line 6 60 60 20 Mvi, Adult No.4 with Vit 470 780 260 K 10 ml Trace (Conc-1Ml/ Dose) 1 ml Potassium Acetate 20 meq Sodium Acetate 20 meq Calcium Gluconate 1 gm In Amino Acid 4.25%-D10w 1,000 ml @ 30 mls/hr IV .Q24H [facility] Rx#:[id number] Pressure Bag 66 72 24 Sodium Chloride 0.9% 1, 150 000 ml @ 20 mls/hr IV . Q24H [facility] Rx#:[id number] Intake, IV Titration 352.02 240 1140.917 Amount Dextrose 10% in Water 500 200 240 80 ml In Empty Bag 1 bag @ 75 mls/hr IV .Q6H40M [facility] Rx#:[id number] Magnesium Sulfate-D5w Pmx 100 1 gm In Dextrose/Water 1 100ml.bag @ 100 mls/hr IVPB ONCE ONE Rx#: [id number] Piperacillin-Tazobactam 3 100 .375 gm In Sodium Chloride 0.9% 100 ml @ 25 mls/hr IVPB Q8HR [facility] Rx# :[id number] Potassium Acetate 20 meq 960.917 Sodium Acetate 20 meq Calcium Gluconate 1 gm Potassium Phosphate 10 mmol Magnesium Sulfate gm 1 gm In Amino Acid 4.25% -D10w 1,000 ml @ 65 mls/ hr IV .[facility] Rx #:[id number] propofoL 1,000 mg In 52.02 Empty Bag 1 bag @ Titrate IV .Q0M [facility] Rx#: [id number] TPN/PPN 30 Pressure Bag 30 Output: Gastric Drainage 300 400 Urine 1710 1895 780 Other: Voiding Method Indwelling Catheter Indwelling Catheter Indwelling Catheter ABP, PAP, CO, CI - Last Documented Arterial Blood Pressure 118/52 - Gastrointestinal Gastrointestinal Comment(s): Abdomen soft, incisions clean dry intact. - Labs CBC & Chem 7: 11/03/21 05:30 11/03/21 04:00 Labs: Abnormal Lab Results - Last 24 Hours (Table) 11/03/21 11/03/21 11/03/21 Range/Units 04:00 05:30 05:33 RBC 3.02 L (4.30-5.90) m/uL Hgb 8.2 L (13.0-17.5) gm/dL Hct 24.9 L (39.0-53.0) % Plt Count 42 L (150-450) k/uL Lymphocytes # 0.4 L (1.0-4.8) k/uL ABG pCO2 32 L (35-45) mmHg ABG pO2 119 H (83-108) mmHg ABG HCO3 19 L (21-25) mmol/L ABG O2 Saturation 98.6 H (94-97) % Chloride 121 H (98-107) mmol/L Carbon Dioxide 16 L (22-30) mmol/L BUN 37 H (9-20) mg/dL Creatinine 1.44 H (0.66-1.25) mg/dL POC Glucose (mg/dL) (75-99) mg/dL Calcium 7.2 L (8.4-10.2) mg/dL Total Bilirubin 2.4 H (0.2-1.3) mg/dL AST 104 H (17-59) U/L ALT 52 H (4-49) U/L Total Protein 3.5 L (6.3-8.2) g/dL Albumin 1.6 L (3.5-5.0) g/dL 11/03/21 Range/Units 08:12 RBC (4.30-5.90) m/uL Hgb (13.0-17.5) gm/dL Hct (39.0-53.0) % Plt Count (150-450) k/uL Lymphocytes # (1.0-4.8) k/uL ABG pCO2 (35-45) mmHg ABG pO2 (83-108) mmHg ABG HCO3 (21-25) mmol/L ABG O2 Saturation (94-97) % Chloride (98-107) mmol/L Carbon Dioxide (22-30) mmol/L BUN (9-20) mg/dL Creatinine (0.66-1.25) mg/dL POC Glucose (mg/dL) 100 H (75-99) mg/dL Calcium (8.4-10.2) mg/dL Total Bilirubin (0.2-1.3) mg/dL AST (17-59) U/L ALT (4-49) U/L Total Protein (6.3-8.2) g/dL Albumin (3.5-5.0) g/dL Microbiology - Last 24 Hours (Table) 10/30/21 09:37 Blood Culture - Preliminary Blood No Growth after 72 hours 10/30/21 09:31 Blood Culture - Preliminary Blood No Growth after 72 hours Assessment and Plan Plan: Status post exploratory laparotomy for gastric ischemia. Patient will continue receive supportive care. If he improves he may be extubated today.
[2021-11-03 11:45] LABS: Glucose,Whole Blood 89 mg/dL (75-99)
--- NOTE | 2021-11-03 12:01 | P.PN ---
Subjective Progress Note Date: 11/03/21 I was asked to evaluate this patient for an acute abdomen and the patient was being transferred to the intensive care unit for further management. This patient is mentally challenged and his not been a good reliable historian. He came into the hospital because of abdominal pain. This morning, the patient was found to be hypotensive and a critically care team was activated. Patient's BP was 60/40. He was awake at the bedside. His abdomen was distended and was quite tender in was still complaining of pain in his abdomen and he was having dry heaves. ABG was inserted and the patient had bloody output from the NG tube in order of 700 mL immediately. A total of 2 L of IV fluid bolus was given and the patient remains hypotensive and following that the patient was ordered to restart her norepinephrine infusion and the patient will be transferred to the intensive care unit. Unit of packed RBC was also ordered for this patient. General surgeries on the case as the patient had a acute abdomen and the CAT scan of the abdomen was done earlier on 10/29/2021 showed extensive portal venous gas, extensive pneumatosis involving the stomach and small bowel, dilated small bowel and stomach consistent with significant ileus. No transition point was seen. There was bilateral renal calculi up to 5 mm. No signs of any retroperitoneal lymphadenopathy. Note that this morning, the patient's white cell count is at 5.7 with a hemoglobin of 11.7. Serum bicarb is down to 12. The lactic acid level was as high as 7.5, the patient had a BUN of 39 and a creatinine of 2.8 consistent with AK I and the patient had normal LFTs. Normal coagulation profile. Started on IV Zosyn. CT of the chest that was done at time of admission showed no evidence of any pulmonary embolism. There was dilatation of the thoracic esophagus with fluid levels and dilated stomach. Recent echocardiogram from January 2020 showed a normal ejection fraction. Comorbid conditions include intellectual limitation and retardation mentally in addition CVA, diabetes mellitus and hypertension. On today's evaluation of 10/31/2021, I'm seeing this patient for a follow-up. The patient had a very complicated course overnight. The patient was taken to the operating room yesterday evening and the patient was found to have ischemia of the lateral portion of the stomach and mild/minimal ischemia of the proximal jejunum. The patient underwent a exploratory laparotomy and the patient underwent a partial gastrectomy. Postop, the patient was kept intubated and patient was sent to the intensive care unit for further care. The patient was hypotensive on pressors by the time he arrived to the ICU. Overnight, the patient was given multiple fluid boluses and the neck fluid balance since yesterday evening as an +8.6 L. This morning, the patient is sedated on propofol at 50 mcg/kg per minute. The patient remains an assist-control mode of mechanical ventilation, the patient is currently on assist-control of 28, tidal volume of 450, FiO2 of 40% with a PEEP of 5. Peak air pressures 22. Chest x- ray shows some limited atelectasis/small effusion left lung base. Orotracheal tube is in a good location the patient is also an orotracheal tube in place. Output from the OG is minimal at this point in time. The blood gases showed a pH of 7.27 with a pCO2 of 28 and pO2 of 91 and this was on the above-mentioned ventilator setting. He was dynamically, the patient is still on normal saline@ 130 mL an hour. Earlier, the norepinephrine infusion was at 0.75 mcg/kg per minute and this was brought up to 1 mg/kg per minute. Overnight, the patient was also started on vasopressin drip at 0.03 units per minutes. Urine output is minimal at this point in time. The patient has also developed an acute kidney injury. Creatinine is up to 2.4 with a mean of 44. Sodium level was 143. Lactic acid from this morning was at 3.5. The white cell count is at 3.4 with a hemoglobin of 12.0. Platelet count is 127. Patient remains nothing by mouth. Oral medications and all discontinued. On 11/01/2021, the patient remains intubated on a mechanical ventilator. The patient's condition remains critical and the patient developed septic shock and multisystem organ failure due to GI complications/acute abdomen. The patient is post partial gastrectomy and the patient is postop day #2. On today's evaluation, the patient remains on a mechanical ventilator and the patient is still sedated with propofol. Propofol residing at 50 mcg/kg per minute. The patient is quite stiff is a mechanical ventilator and the patient is an assist- control at the rate of 28 with a tidal volume of 450, FiO2 60% with a PEEP of 5. The patient has a pH of 7.3 and I attribute to 29 and pO2 of 174. Chest x-ray showing development of a left lower lobe pulmonary infiltrates/atelectasis/effusion. ET tube was in a good location. NG tube is also has a good location. Meanwhile, the patient continues to be aggressively resuscitated IV fluids. Overall fluid balance over the past 24 hours has been +5.5 L the patient received several fluid boluses. The patient has dropped the lactic acid level down to 0.1. Norepinephrine infusion is also being weaned down to 0.4 mg/kg per minute and vasopressin is at 0.03 units per minute. As such, there has been some improvement in the pressors requirements nontender the patient norepinephrine infusion was as high as 1 mcg/kg per minute. Meanwhile, the patient is developing episodes of hypoglycemia. Blood sugar is at 151. Currently he is on D5 minimal white discharge in the D10. We'll also consider possibility of starting the patient on TPN for nutritional support special with ongoing episodes of hypoglycemia. The patient is afebrile. The white second attempt 0.4 with a hemoglobin of 9.7 and a platelet count of 79 sodium is at 144 with a potassium of 4.4, serum bicarbonate of 11 degenerative 47 with a creatinine of 2.1. Cultures of been all negative thus far. Baseline serum co rtisol level at 23. TSH 00.8. NG tube is in place and output is minimal and there is no signs of any upper GI bleeding at this point in time. Surgical wound site is dry clean and intact. 11/02/2021, I'm seeing the patient postop day #3. The patient seems to be more stable compared to yesterday. Noted the patient had an extensive surgery which included a partial gastrectomy. Postop, the patient developed hypotension/shock/multisystem organ failure. He has a more stable condition on today's evaluation. He is on assist-control mode rate of 28, tidal volume of 450, FiO2 of 30% and a PEEP of 5. The blood gas showed a pH of 7.32 with a pCO2 of 31 and pO2 of 184. Since manager call at 2 AM, the patient was also taken off the vasopressin drip and the patient was taken off the norepinephrine drip. Chest x-ray showing pulmonary vascular congestion and some edema in addition to development of a left-sided pleural effusion. ET tube remains in a good location. Despite his fluid overload, the patient's is oxygenating adequately. Input output balance is +5.5 L over the past 24 hours. The NG tube output has been 500 mL of gastric material over the past 12 hours. The patient also on TPN running at 30 mL an hour. Bowel sounds are absent. Surgical wound sites are clean and intact. Patient has adequate pulses in all 4 extremities. Urine output is adequate and the creatinine is down to 1.39 with a BUN of 41 and a sodium level of 142. The patient is afebrile. The patient is hemodynamically stable. The patient is also off the D10 infusion. No further episodes of hypoglycemia this point in time. 11/03/2021, the patient is postop day #4. Hemodynamically stable on no p ressors. He remains on a mechanical ventilator. Propofol was discontinued yesterday. The patient is grimacing to painful stimulation. He is not following commands yet. He is opening up his eyes. I think there is some neurologic recovery although the patient may still be encephalopathic due to shock. In the rate, the patient remains nothing by mouth. The NG tube is in place and the output has been in the order of 800 mL over the past 24 hours. Hypoactive bowel sounds. No bowel movement activity or flatus yet. Input output balance is -1.8 L. The patient remains on TPN for nutritional support rate of 65 mL an hour. In view of underlying episodes of hypoglycemia, the patient was also placed on D10 at the rate of 20 mL an hour. Blood sugars are still lower and soft. The patient is producing adequate amount of urine output. Creatinine is at 1.44 with BUN of 37. IV fluids was cut down to KVO. Lasix was given yesterday and another dose of Lasix will be given today. He will be given 4 mg IV push 1. Chest x-rays done today shows a left-sided pleural effusion. ET tube is in a good location. OG tube is in a good location. No other acute abnormalities. The patient remains on a mechanical ventilator today and an assist-control mode at the rate of 28 with a tidal volume of 450 and FiO2 of 30% with a PEEP of 5. The blood gases from today shows a pH of 7.39 with a pCO2 of 32 and pO2 of 119. Meanwhile, the patient has good weaning parameters. Unable to extubated the patient has not had adequate level of alertness. His weaning parameters seem to be good and should be able to tolerate a spontaneous breathing trial without any issues. Objective - Vital Signs Vital signs: Vital Signs Temp 98.6 F 11/03/21 08:00 Pulse 105 H 11/03/21 10:00 Resp 28 H 11/03/21 10:00 BP 136/81 11/03/21 10:00 Pulse Ox 95 11/03/21 10:00 Intake & Output 11/02/21 11/03/21 11/03/21 18:59 06:59 18:59 Intake Total 1308.02 1182 1454.917 Output Total 2009 2295 780 Balance -701.98 -1113 674.917 Weight 100.2 kg Intake: IV 926 942 314 Dextrose 5% in Water 1, 150 000 ml @ 75 mls/hr IV . [id number] [facility] Rx#:[id number] Invasive Line 5 30 30 10 Invasive Line 6 60 60 20 Mvi, Adult No.4 with Vit 470 780 260 K 10 ml Trace (Conc-1Ml/ Dose) 1 ml Potassium Acetate 20 meq Sodium Acetate 20 meq Calcium Gluconate 1 gm In Amino Acid 4.25%-D10w 1,000 ml @ 30 mls/hr IV .Q24H [facility] Rx#:[id number] Pressure Bag 66 72 24 Sodium Chloride 0.9% 1, 150 000 ml @ 20 mls/hr IV . Q24H [facility] Rx#:[id number] Intake, IV Titration 352.02 240 1140.917 Amount Dextrose 10% in Water 500 200 240 80 ml In Empty Bag 1 bag @ 75 mls/hr IV .Q6H40M [facility] Rx#:[id number] Magnesium Sulfate-D5w Pmx 100 1 gm In Dextrose/Water 1 100ml.bag @ 100 mls/hr IVPB ONCE ONE Rx#: [id number] Piperacillin-Tazobactam 3 100 .375 gm In Sodium Chloride 0.9% 100 ml @ 25 mls/hr IVPB Q8HR [facility] Rx# :[id number] Potassium Acetate 20 meq 960.917 Sodium Acetate 20 meq Calcium Gluconate 1 gm Potassium Phosphate 10 mmol Magnesium Sulfate gm 1 gm In Amino Acid 4.25% -D10w 1,000 ml @ 65 mls/ hr IV .BY DURATION [facility] Rx #:[id number] propofoL 1,000 mg In 52.02 Empty Bag 1 bag @ Titrate IV .Q0M [facility] Rx#: [id number] TPN/PPN 30 Pressure Bag 30 Output: Gastric Drainage 300 400 Urine 1710 1895 780 Other: Voiding Method Indwelling Catheter Indwelling Catheter Indwelling Catheter ABP, PAP, CO, CI - Last Documented Arterial Blood Pressure 118/52 - Exam GENERAL: Patient is intubated sedated, the patient is off sedation and off propofol for the past 24 hours. The patient is intubated on a mechanical ventilator. Head exam was generally normal. There was no scleral icterus or corneal arcus. Mucous membranes were moist. HEENT: Pupils are round and equally reacting to light. EOMI. No scleral icterus. No conjunctival pallor. Normocephalic, atraumatic. No pharyngeal erythema. No thyromegaly. Orogastric and orotracheal tube are both in place. CARDIOVASCULAR: S1 and S2 present. No murmurs, rubs, or gallops. PULMONARY: Chest is clear to auscultation, no wheezing or crackles. ABDOMEN: Absent bowel sounds and the surgical wound site over the mid abdomen is dry clean and intact. No direct tenderness. No rebound tenderness. No guarding. No organomegaly. MUSCULOSKELETAL: No joint swelling or deformity. EXTREMITIES: Extremities are cold and clammy and there are diminished pulses in all 4 extremities. No cyanosis. No clubbing. NEUROLOGICAL: Intubated, still somnolent and lethargic although more active compared to yesterday his grimacing to deep painful stimulation. Not following commands yet. Examination of the skin revealed no evidence of significant rashes, suspicious appearing nevi or other concerning lesions. - Labs CBC & Chem 7: 11/03/21 05:30 11/03/21 04:00 Labs: Abnormal Lab Results - Last 24 Hours (Table) 11/03/21 11/03/21 11/03/21 Range/Units 04:00 05:30 05:33 RBC 3.02 L (4.30-5.90) m/uL Hgb 8.2 L (13.0-17.5) gm/dL Hct 24.9 L (39.0-53.0) % Plt Count 42 L (150-450) k/uL Lymphocytes # 0.4 L (1.0-4.8) k/uL ABG pCO2 32 L (35-45) mmHg ABG pO2 119 H (83-108) mmHg ABG HCO3 19 L (21-25) mmol/L ABG O2 Saturation 98.6 H (94-97) % Chloride 121 H (98-107) mmol/L Carbon Dioxide 16 L (22-30) mmol/L BUN 37 H (9-20) mg/dL Creatinine 1.44 H (0.66-1.25) mg/dL POC Glucose (mg/dL) (75-99) mg/dL Calcium 7.2 L (8.4-10.2) mg/dL Total Bilirubin 2.4 H (0.2-1.3) mg/dL AST 104 H (17-59) U/L ALT 52 H (4-49) U/L Total Protein 3.5 L (6.3-8.2) g/dL Albumin 1.6 L (3.5-5.0) g/dL 11/03/21 Range/Units 08:12 RBC (4.30-5.90) m/uL Hgb (13.0-17.5) gm/dL Hct (39.0-53.0) % Plt Count (150-450) k/uL Lymphocytes # (1.0-4.8) k/uL ABG pCO2 (35-45) mmHg ABG pO2 (83-108) mmHg ABG HCO3 (21-25) mmol/L ABG O2 Saturation (94-97) % Chloride (98-107) mmol/L Carbon Dioxide (22-30) mmol/L BUN (9-20) mg/dL Creatinine (0.66-1.25) mg/dL POC Glucose (mg/dL) 100 H (75-99) mg/dL Calcium (8.4-10.2) mg/dL Total Bilirubin (0.2-1.3) mg/dL AST (17-59) U/L ALT (4-49) U/L Total Protein (6.3-8.2) g/dL Albumin (3.5-5.0) g/dL Microbiology - Last 24 Hours (Table) 10/30/21 09:37 Blood Culture - Preliminary Blood No Growth after 96 hours 10/30/21 09:31 Blood Culture - Preliminary Blood No Growth after 96 hours Assessment and Plan Plan: 1 partial gastrectomy as the patient was found to have ischemic anterior gastric wall with questionable small bowel ischemia. The patient underwent partial gastrectomy and the patient is postop day #3. Patient presented with an acute abdomen and lactic acidosis and hemodynamic instability and the patient was getting septic preoperatively. Currently postop day #4. Postop, the patient developed shock and multisystem organ failure. Aggressively resuscitated with IV fluids and pressors and antibiotics and the patient is doing better on today's evaluation. Urine output is improved. Creatinine is improved. The patient is also off pressors. On today's evaluation, the patient remains hemody namically stable off pressors. The patient is on TPN for nutritional support. The patient remains on IV Zosyn. He was taken off sedation and he has not fully recovered in terms of his mental status although the patient seems to much more alert compared to yesterday as he opens up his eyes spontaneously and he grimaces to deep painful fibrillation. Not following commands yet. Sedation has been discontinued for the past 24 hours. 2 septic shock post gastric surgery. Patient is being resuscitated with a combination of fluids and pressors and antibiotics, the pressor requirements have improved compared to yesterday. Patient remains on a combination of norepinephrine infusion and vasopressin infusion for now. The patient is on KVO IV fluids. Start on diuresis yesterday 3 acute hypoxic respiratory failure. The patient is currently intubated on mechanical ventilator due to above-mentioned comorbidities. Not ready for any weaning for extubation due to his significant hemodynamic instability. Chest x- ray from today showing a left lower lobe pleural effusion and addition to that the patient developed pulmonary vessel congestion/edema. 3 acute lactic acidosis, secondary to above, improved 4 acute kidney injury. The patient's creatinine is down to 1.44 5 history of CVA 6 diabetes mellitus 7 hypertension 8 Developmental delay and autism 9 episodic hypoglycemia, currently on D5 infusion Plan Continue ventilator support Patient has good weaning parameters yet no weaning trials will be given as the patient's mentation is still quite diminished and he is not ready for weaning yet. Continue TPN for nutritional support IV fluids to KVO Given another dose of 40 mg IV push Lasix today The patient is currently off pressors Continue IV Zosyn Check echocardiogram done on 10/29/2032 showed an ejection fraction of 60-65% Monitor CVP Keep the patient nothing by mouth D 10 infusion rate of 20 mL an hour and this can be discontinued once the blood sugars improve Monitor lactic acid levels, levels are improving Keep the patient nothing by mouth for now Monitor the output from the NG tube condition is critical and the patient's will be kept in ICU. This evaluation was done and more than 30 minutes. The prognosis poor baseline above-mentioned comorbidities. Critically care evaluation that was done more than 30 minutes Time with Patient: Greater than 30
--- NOTE | 2021-11-03 14:42 | P.PN ---
Subjective Progress Note Date: 11/03/21 Patient was admitted for nausea vomiting diarrhea believed to have gastroenteritis. Patient continued to have vomiting and started having abdominal tenderness because of which CT of the abdomen was obtained which showed pneumatosis coli along with some gas in the venous system concern for ischemic bowel. Patient was started on Zosyn. Patient subsequently decompensated patient became hypotensive with BP of 60/40 transferred to ICU patient was given 3 L of boluses of IV fluid NG tube was placed which showed bloody output . Patient in septic shock and receiving norepinephrine at this time. Recent echo showed normal ejection fraction. Patient had CTA of the chest which was negative for pulmonary embolism patient creatinine has worsened and went up to 2.80 today from 1.14 yesterday and this is secondary to acute tubular necrosis from sepsis and septic shock. Patient does have lactic acidosis, patient does have lactic acidosis with lactic acidosis 7.5. Patient will be given 1 L of IV fluids continue pressor support. he is intubated and sedated. 10/31/2021 Patient is started having urine output. Patient underwent a arthrotomy yesterday and found to have ischemia of the lateral portion of the stomach and ischemia of the proximal jejunum patient underwent partial gastrectomy. Patient is presently on that to pressors maximized on norepinephrine, patient is also on vasopressin receiving albumin, IV fluids started having minimal urine output patient was anuric last night. Patient's chloride is highly elevated leading to metabolic acidosis patient also has an anion gap metabolic acidosis from lactic acidosis which appears to be improving at this time patient's overall clinical condition is guarded and the prognosis is poor. Patient Y blood cell count went down in fact patient is neutropenic now. Patient is presently not receiving any nutrition at this time. 11/01/2021 Patient is seen in follow-up continues to be closely monitored in the ICU in critical condition. 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 Patient is status post partial gastrectomy postop day #2. Patient continues on IV Zosyn along with normal saline at 75 ML per hour. Per nursing staff patient continues on Levophed along with vasopressin for pressor support. Patient not tolerating weaning very well to assess mentation. Patient continues on sedation of propofol and will continue. Chest x-ray today shows basilar atelectasis, may be associated effusion and to correlate to exclude pneumonia. Per nursing staff there has been minimal NG tube output and of note on the x-ray the distal tip of the NG tube is obscured although unable to fully see as there is overlying artifacts with the telemetry monitoring and the patient is rotated. Patient is also having hypoglycemic events and was started on dextrose. Surgery plans for TPN for nutritional support. Family at the bedside today and their questions and concerns were answered. Labs: WBC is 10.4, hgb is 9.7, platelets are 79, sodium is 144, potassium is 4.4, chloride is 125, CO2 is 11 bun is 47, creatinine is 2.18, lactic acid is 2.1, calcium is 6.9 11/02/2021 Patient evaluated today in the ICU he is postoperative day #3 for partial gastrectomy, currently intubated with an FiO2 of 30% with a PEEP of 5. Current oxygen saturations are 99 to 100%. Blood pressures 119/61, respirations 28, heart rate 107, afebrile. Chest x-ray today shows a stable chest with pleural effusion unchanged, perihilar and basilar infiltrates persist. Per nurse about 500 mLs output from NG tube in the last 12 hours. Continues on IV lasix, TPN, IV zosyn. Pressor support and propfol are currently on hold. Blood pressures are maintaining 120s systolic, heart rate 113 sinus tachycardia, afebrile, respirations 27. Patient with indwelling catheter, urine is dark susana, per nurse no BM since surgery, bowels are absent left lower quadrant, hypoactive to the right quadrant. Labs today show white count 6, hemoglobin 8.6, sodium 142, potassium 3.9, chloride 124, CO2 15, BUN 41, creatinine 1.39, blood glucose in the 80s, calcium 7.2, total bili 1.7, AST 145, ALT 59. Patient is being followed closely by pulmonary, cardiology, and surgical services. 11/03/2021 Patient evaluated today and closely monitored in ICU remains in critical condition. Patient's been off sedation for 24 hours. He is currently spontaneous eye opening, eyes are tracking however he does not move his face, n ot following motor commands unable to wiggle fingers. Once patient is more alert may tolerate extubation. He continues to be vented, Fi02 30% with a PEEP of 5 his current oxygen saturation 96%, blood pressure 112/74, heart rate sinus tachycardic in the low 100's, he has been afebrile. Patient has been in a negative fluid balance with -1.8 Liters in the last 24 hours and received 3 doses of IV lasix which is now discontinued. Bowel sounds are hypoactive, abdominal binder in place with dressings intact to midline incision, no bowel movements or passing gas as reported by RN. Creatinine slightly increased today to 1.44, BUN 37. No white count, hemoglobin stable at 8.2, platelets decreased to 40's for the last 2 days, heparin was discontinued, continues with SCD's. Liver enzymes stable from yesterday. Continues on D10 infusion, TPN, maintaining blood pressures off pressor support. Continues on IV zosyn. Chest xray today shows unchanged pleural effusion. Patient remains in the ICU followed closely by pulmonary, cardiology, and surgical services in critical condition. Code status was changed to DNR by family. Review of systems: Unable to obtain as patient is intubated and sedated PHYSICAL EXAMINATION: GENERAL: Patient is intubated sedated HEENT: Pupils are round and equally reacting to light. EOMI. No scleral icterus. No conjunctival pallor. Normocephalic, atraumatic. No pharyngeal erythema. No thyromegaly. Eyes are spontaneously open today and tracking. CARDIOVASCULAR: S1 and S2 present. No murmurs, rubs, or gallops. PULMONARY: Chest is clear to auscultation, no wheezing or crackles. ABDOMEN: Sluggish bowel sounds, mildly distended and taut, NG tube in place. MUSCULOSKELETAL: No joint swelling or deformity. EXTREMITIES: No cyanosis, clubbing, generalized peripheral edema noted. NEUROLOGICAL: Intubated SKIN: No rashes. Assessment: -Post operative day #4 partical gastrectomy for ischemic stomach and also had ischemic ileum. -Septic shock status postoperatively. Blood sugars have stabilize, patient is on D10 gtt, and fluids are running at 20 cc per hour. Patient is off pressor support with stable blood pressures now 120's systolic. Patient is on IV zosyn close monitoring urine output is improving with over 4L out in the last 24 hours. Blood cultures are negative so far. -Elevated liver enzymes most probably due to hepatic congestion from fluid overload state, Lasix discontinued for now and enzymes are stable from yesterday, still elevated. -Anion gap metabolic acidosis secondary to lactic acidosis which improved patient doesn't have non-anion gap, acidosis secondary to hyperchloremia -Acute renal failure secondary to acute blood loss from septic shock, patient is having some urine output and kidney functions trending down, cr is 1.44 today -Syncope with loss of consciousness, hypotensive secondary to above, blood pressures have stabilized off pressor support -History of CVA TIA -History diabetes mellitus type 2, uncontrolled at this time, now currently stable, off the D10 gtt. TPN being initiated with dietitian consult -History hypertension, hypotensive on admission with a blood pressure in the 70s, holding off on antihypertensive medications. Patient is now maintaining blood pressures off pressor support. -History of autism -History of intellectual impairment -GI Prophylaxis Protonix -DVT Prophylaxis Subcu heparin -NO CODE Plan: Recommend to continue with ICU management and close monitoring. Continues on mechanical vent with an FI02 of 30% and peep of 5. Patient continues to be in critical condition with an extremely poor and guarded prognosis. Patient has been weaned off pressor support with stable blood pressures, continue monitoring closely. Weaned off sedation for now and plan to evaluate for possible extubation if patient becomes more alert and responsive for now minimally responsive to painful stimuli and eyes are tracking. Patient is NPO and was not receiving nutrition given the severity of the ischemia, Current receiving TPN and NG tube remains in place. Patient having episodes of hypoglycemia and was started on D10, blood glucose has stabilized and D10 continues to run at 20 cc per hour. NG tube with about 400 mLs of urine output in the last 12 hours, continue to monitor. Code status was addressed with family and patient is no code. Prognosis remains quite guarded and will continue to monitor closely. Objective - Vital Signs Vital signs: Vital Signs Temp 98.6 F 11/03/21 08:00 Pulse 105 H 11/03/21 10:00 Resp 28 H 11/03/21 10:00 BP 136/81 11/03/21 10:00 Pulse Ox 95 11/03/21 10:00 Intake & Output 11/02/21 11/03/21 11/03/21 18:59 06:59 18:59 Intake Total 1308.02 1182 1454.917 Output Total 2009 0598 780 Balance -701.98 -1113 674.917 Weight 100.2 kg Intake: IV 926 942 314 Dextrose 5% in Water 1, 150 000 ml @ 75 mls/hr IV . [id number] [facility] Rx#:[id number] Invasive Line 5 30 30 10 Invasive Line 6 60 60 20 Mvi, Adult No.4 with Vit 470 780 260 K 10 ml Trace (Conc-1Ml/ Dose) 1 ml Potassium Acetate 20 meq Sodium Acetate 20 meq Calcium Gluconate 1 gm In Amino Acid 4.25%-D10w 1,000 ml @ 30 mls/hr IV .Q24H [facility] Rx#:[id number] Pressure Bag 66 72 24 Sodium Chloride 0.9% 1, 150 000 ml @ 20 mls/hr IV . Q24H [facility] Rx#:[id number] Intake, IV Titration 352.02 240 1140.917 Amount Dextrose 10% in Water 500 200 240 80 ml In Empty Bag 1 bag @ 75 mls/hr IV .Q6H40M [facility] Rx#:[id number] Magnesium Sulfate-D5w Pmx 100 1 gm In Dextrose/Water 1 100ml.bag @ 100 mls/hr IVPB ONCE ONE Rx#: [id number] Piperacillin-Tazobactam 3 100 .375 gm In Sodium Chloride 0.9% 100 ml @ 25 mls/hr IVPB Q8HR [facility] Rx# :[id number] Potassium Acetate 20 meq 960.917 Sodium Acetate 20 meq Calcium Gluconate 1 gm Potassium Phosphate 10 mmol Magnesium Sulfate gm 1 gm In Amino Acid 4.25% -D10w 1,000 ml @ 65 mls/ hr IV .BY DURATION [facility] Rx #:[id number] propofoL 1,000 mg In 52.02 Empty Bag 1 bag @ Titrate IV .Q0M [facility] Rx#: [id number] TPN/PPN 30 Pressure Bag 30 Output: Gastric Drainage 300 400 Urine 1710 1895 780 Other: Voiding Method Indwelling Catheter Indwelling Catheter Indwelling Catheter ABP, PAP, CO, CI - Last Documented Arterial Blood Pressure 118/52 - Labs CBC & Chem 7: 11/03/21 05:30 11/03/21 04:00 Labs: Abnormal Lab Results - Last 24 Hours (Table) 11/03/21 11/03/21 11/03/21 Range/Units 04:00 05:30 05:33 RBC 3.02 L (4.30-5.90) m/uL Hgb 8.2 L (13.0-17.5) gm/dL Hct 24.9 L (39.0-53.0) % Plt Count 42 L (150-450) k/uL Lymphocytes # 0.4 L (1.0-4.8) k/uL ABG pCO2 32 L (35-45) mmHg ABG pO2 119 H (83-108) mmHg ABG HCO3 19 L (21-25) mmol/L ABG O2 Saturation 98.6 H (94-97) % Chloride 121 H (98-107) mmol/L Carbon Dioxide 16 L (22-30) mmol/L BUN 37 H (9-20) mg/dL Creatinine 1.44 H (0.66-1.25) mg/dL POC Glucose (mg/dL) (75-99) mg/dL Calcium 7.2 L (8.4-10.2) mg/dL Total Bilirubin 2.4 H (0.2-1.3) mg/dL AST 104 H (17-59) U/L ALT 52 H (4-49) U/L Total Protein 3.5 L (6.3-8.2) g/dL Albumin 1.6 L (3.5-5.0) g/dL 11/03/21 Range/Units 08:12 RBC (4.30-5.90) m/uL Hgb (13.0-17.5) gm/dL Hct (39.0-53.0) % Plt Count (150-450) k/uL Lymphocytes # (1.0-4.8) k/uL ABG pCO2 (35-45) mmHg ABG pO2 (83-108) mmHg ABG HCO3 (21-25) mmol/L ABG O2 Saturation (94-97) % Chloride (98-107) mmol/L Carbon Dioxide (22-30) mmol/L BUN (9-20) mg/dL Creatinine (0.66-1.25) mg/dL POC Glucose (mg/dL) 100 H (75-99) mg/dL Calcium (8.4-10.2) mg/dL Total Bilirubin (0.2-1.3) mg/dL AST (17-59) U/L ALT (4-49) U/L Total Protein (6.3-8.2) g/dL Albumin (3.5-5.0) g/dL Microbiology - Last 24 Hours (Table) 10/30/21 09:37 Blood Culture - Preliminary Blood No Growth after 72 hours 10/30/21 09:31 Blood Culture - Preliminary Blood No Growth after 72 hours Assessment and Plan Time with Patient: Less than 30
[2021-11-03 16:03] LABS: Glucose,Whole Blood 95 mg/dL (75-99)
[2021-11-03 19:54] LABS: Glucose,Whole Blood 92 mg/dL (75-99)
[2021-11-03 23:54] LABS: Glucose,Whole Blood 100 mg/dL (75-99)
[2021-11-04 03:53] LABS: Glucose,Whole Blood 90 mg/dL (75-99)
[2021-11-04] MEDS: SODIUM CHLORIDE 0.9% 150 ML with VASOPRESSIN 60 UNIT IV SCH ×2 (04:27)
[2021-11-04 05:47] LABS: ABG Base Excess -3.7 mmol/L; ABG HCO3 20 mmol/L (21-25); ABG Oxygen Saturation 97.9 % (94-97); ABG PCO2 29 mmHg (35-45); ABG PH 7.45 (7.35-7.45); ABG PO2 112 mmHg (83-108); ABG TCO2 21 mmol/L (19-24); Allen Test Performed? Yes
[2021-11-04 08:30] LABS: Albumin 1.6 g/dL (3.5-5.0); Magnesium 2.2 mg/dL (1.6-2.3); Phosphorus 3.7 mg/dL (2.5-4.5); Potassium 3.2 mmol/L (3.5-5.1); Total Bilirubin 3.1 mg/dL (0.2-1.3); Total Protein 3.9 g/dL (6.3-8.2)
[2021-11-04] MEDS ORDERED: FUROSEMIDE 10 MG/ML 10 ML VIAL IV SCH (09:00)
[2021-11-04] MEDS ORDERED: Potassium Replacement Protocol 1 EACH MISC MISCELLANE PRN (09:00)
[2021-11-04] MEDS: CHLORHEXIDINE GLUCONATE 15 ML CUP MUCOUS MEM SCH ×2 (09:12→20:35)
[2021-11-04] MEDS: PIPERACILLIN-TAZOBACTAM 3.375 GM in SODIUM CHLORIDE 0.9% 100 ML IVPB SCH ×2 (09:12→16:57)
[2021-11-04] MEDS: PANTOPRAZOLE 40 MG/10 ML VIAL IVP SCH ×2 (09:12→20:35)
--- NOTE | 2021-11-04 09:34 | XR ---
EXAMINATION TYPE: XR chest 1V portable DATE OF EXAM: 11/04/2021 COMPARISON: 11/03/2021 HISTORY: Tube placement TECHNIQUE: Single frontal view of the chest is obtained. FINDINGS: ET and NG tube stable. Right-sided central line stable. Bilateral consolidation and small effusion. No pneumothorax. IMPRESSION: Stable bilateral consolidation and pleural effusion.
[2021-11-04] MEDS: POTASSIUM CHLORIDE 20 MEQ in WATER FOR INJECTION 1 100ML.BAG IVPB SCH ×3 (09:50→13:42)
--- NOTE | 2021-11-04 10:46 | P.PN ---
Subjective Progress Note Date: 11/04/21 Principal diagnosis: Respiratory failure. On 11/01/2021, the patient remains intubated on a mechanical ventilator. The patient's condition remains critical and the patient developed septic shock and multisystem organ failure due to GI complications/acute abdomen. The patient is post partial gastrectomy and the patient is postop day #2. On today's evaluation, the patient remains on a mechanical ventilator and the patient is still sedated with propofol. Propofol residing at 50 mcg/kg per minute. The patient is quite stiff is a mechanical ventilator and the patient is an assist- control at the rate of 28 with a tidal volume of 450, FiO2 60% with a PEEP of 5. The patient has a pH of 7.3 and I attribute to 29 and pO2 of 174. Chest x-ray showing development of a left lower lobe pulmonary infiltrates/atelectasis/effusion. ET tube was in a good location. NG tube is a lso has a good location. Meanwhile, the patient continues to be aggressively resuscitated IV fluids. Overall fluid balance over the past 24 hours has been +5.5 L the patient received several fluid boluses. The patient has dropped the lactic acid level down to 0.1. Norepinephrine infusion is also being weaned down to 0.4 mg/kg per minute and vasopressin is at 0.03 units per minute. As such, there has been some improvement in the pressors requirements nontender the patient norepinephrine infusion was as high as 1 mcg/kg per minute. Meanwhile, the patient is developing episodes of hypoglycemia. Blood sugar is at 151. Currently he is on D5 minimal white discharge in the D10. We'll also consider possibility of starting the patient on TPN for nutritional support special with ongoing episodes of hypoglycemia. The patient is afebrile. The white second attempt 0.4 with a hemoglobin of 9.7 and a platelet count of 79 sodium is at 144 with a potassium of 4.4, serum bicarbonate of 11 degenerative 47 with a creatinine of 2.1. Cultures of been all negative thus far. Baseline serum cristhian isol level at 23. TSH 00.8. NG tube is in place and output is minimal and there is no signs of any upper GI bleeding at this point in time. Surgical wound site is dry clean and intact. 11/02/2021, I'm seeing the patient postop day #3. The patient seems to be more stable compared to yesterday. Noted the patient had an extensive surgery which included a partial gastrectomy. Postop, the patient developed hypotension/shock/multisystem organ failure. He has a more stable condition on today's evaluation. He is on assist-control mode rate of 28, tidal volume of 450, FiO2 of 30% and a PEEP of 5. The blood gas showed a pH of 7.32 with a pCO2 of 31 and pO2 of 184. 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 Chest x-ray showing pulmonary vascular congestion and some edema in addition to development of a left-sided pleural effusion. ET tube remains in a good location. Despite his fluid overload, the patient's is oxygenating adequately. Input output balance is +5.5 L over the past 24 hours. The NG tube output has been 500 mL of gastric material over the past 12 hours. The patient also on TPN running at 30 mL an hour. Bowel sounds are absent. Surgical wound sites are clean and intact. Patient has adequate pulses in all 4 extremities. Urine output is adequate and the creatinine is down to 1.39 with a BUN of 41 and a sodium level of 142. The patient is afebrile. The patient is hemodynamically stable. The patient is also off the D10 infusion. No further episodes of hypoglycemia this point in time. 11/03/2021, the patient is postop day #4. Hemodynamically stable on no pre ssors. He remains on a mechanical ventilator. Propofol was discontinued yesterday. The patient is grimacing to painful stimulation. He is not following commands yet. He is opening up his eyes. I think there is some neurologic recovery although the patient may still be encephalopathic due to sh ock. In the rate, the patient remains nothing by mouth. The NG tube is in place and the output has been in the order of 800 mL over the past 24 hours. Hypoactive bowel sounds. No bowel movement activity or flatus yet. Input output balance is -1.8 L. The patient remains on TPN for nutritional support rate of 65 mL an hour. In view of underlying episodes of hypoglycemia, the patient was also placed on D10 at the rate of 20 mL an hour. Blood sugars are still lower and soft. The patient is producing adequate amount of urine output. Creatinine is at 1.44 with BUN of 37. IV fluids was cut down to KVO. Lasix was given yesterday and another dose of Lasix will be given today. He will be given 4 mg IV push 1. Chest x-rays done today shows a left-sided pleural effusion. ET tube is in a good location. OG tube is in a good location. No other acute abnormalities. The patient remains on a mechanical ventilator today and an assist-control mode at the rate of 28 with a tidal volume of 450 and FiO2 of 30% with a PEEP of 5. The blood gases from today shows a pH of 7.39 with a pCO2 of 32 and pO2 of 119. Meanwhile, the patient has good weaning parameters. Unable to extubated the patient has not had adequate level of alertness. His weaning parameters seem to be good and should be able to tolerate a spontaneous breathing trial without any issues. Progress note dated 11/04/2021. This is a 51-year-old male, who was admitted to the hospital on October 29. The patient came in with syncope, nausea vomiting, and low blood pressure. The patient came to the intensive care unit, on October 30. He was intubated on that same day, having had a partial gastrectomy. Today's postop day #5. The patient is a DO NOT RESUSCITATE patient. He remains on mechanical ventilator. He is on the volume assist control mode, rate 28, tidal volume 450, FiO2 30%, PEEP of 5. Blood gases show pO2 112, pCO2 29, and pH is 7.45. The patient's on D10, at 20 mL an hour, and TPN at 65 mL an hour. The patient will get Lasix 60 mg IV push today. We will attempt a daily interruption of sedation, and a spontaneous breathing trial. Sodium 145, potassium 3.2, chlorides 120, CO2 20, anion gap 5, BUN 45, and creatinine 1.26. There was no CBC today. Albumin is 1.6. Microbiology is negative. Chest x-ray shows stable bilateral consolidations and small effusions. Weaning parameters today, were reasonable. The rapid shallow breathing index was 72. He did have a cuff leak. He will be given a trial of extubation. Objective - Vital Signs Vital signs: Vital Signs Temp 99.2 F 11/04/21 08:00 Pulse 106 H 11/04/21 10:00 Resp 36 H 11/04/21 10:00 BP 115/69 03/07/22 10:00 Pulse Ox 89 L 11/04/21 10:00 Intake & Output 11/03/21 11/04/21 11/04/21 18:59 06:59 18:59 Intake Total 0668.112 6645.417 108 Output Total 2815 935 400 Balance -892.083 382.417 -292 Weight 96 kg Intake: IV 682 402 108 Dextrose 10% in Water 500 240 60 ml @ 20 mls/hr IV .Q24H [facility] Rx#:[id number] Invasive Line 5 30 30 10 Invasive Line 6 60 60 20 Mvi, Adult No.4 with Vit 520 K 10 ml Trace (Conc-1Ml/ Dose) 1 ml Potassium Acetate 20 meq Sodium Acetate 20 meq Calcium Gluconate 1 gm In Amino Acid 4.25%-D10w 1,000 ml @ 30 mls/hr IV .Q24H [facility] Rx#:[id number] Pressure Bag 72 72 18 Intake, IV Titration 1240.917 915.417 Amount Dextrose 10% in Water 500 80 ml In Empty Bag 1 bag @ 75 mls/hr IV .Q6H40M [facility] Rx#:[id number] Piperacillin-Tazobactam 3 200 .375 gm In Sodium Chloride 0.9% 100 ml @ 25 mls/hr IVPB Q8HR [facility] Rx# :[id number] Potassium Acetate 20 meq 960.917 915.417 Sodium Acetate 20 meq Calcium Gluconate 1 gm Potassium Phosphate 10 mmol Magnesium Sulfate gm 1 gm In Amino Acid 4.25% -D10w 1,000 ml @ 65 mls/ hr IV .BY DURATION [facility] Rx #:[id number] Output: Gastric Drainage 800 50 Urine 2015 935 350 Other: Voiding Method Indwelling Catheter Indwelling Catheter Indwelling Catheter ABP, PAP, CO, CI - Last Documented Arterial Blood Pressure 132/53 - Exam No acute distress, with an orally placed endotracheal tube and NG tube. HEENT examination is grossly unremarkable. Neck supple. Full range of motion. No adenopathy thyromegaly or neck vein distention. Cardiovascular examination reveals regular rhythm rate. S1-S2 normal. No S3 or S4. No discernible murmur noted. Heart sounds are distant. Heart rate 94 bpm. Lungs reveal mild scattered rhonchi. No wheezes or crackles. Breath sounds equal bilaterally. Saturations are 95%. Abdomen soft, without bowel sounds. Extremities are intact. No cyanosis or clubbing. Mild diffuse edema noted. Skin is without rash or lesion. Neurologic examination is difficult to assess. - Labs CBC & Chem 7: 11/03/21 05:30 11/04/21 07:30 Labs: Abnormal Lab Results - Last 24 Hours (Table) 11/03/21 11/04/21 11/04/21 Range/Units 23:53 05:45 07:30 ABG pCO2 29 L (35-45) mmHg ABG pO2 112 H (83-108) mmHg ABG HCO3 20 L (21-25) mmol/L ABG O2 Saturation 97.9 H (94-97) % Potassium 3.2 L (3.5-5.1) mmol/L Chloride 120 H (98-107) mmol/L Carbon Dioxide 20 L (22-30) mmol/L BUN 45 H (9-20) mg/dL Creatinine 1.26 H (0.66-1.25) mg/dL Glucose 102 H (74-99) mg/dL POC Glucose (mg/dL) 100 H (75-99) mg/dL Calcium 7.0 L (8.4-10.2) mg/dL Total Bilirubin 3.1 H (0.2-1.3) mg/dL AST 81 H (17-59) U/L Total Protein 3.9 L (6.3-8.2) g/dL Albumin 1.6 L (3.5-5.0) g/dL Microbiology - Last 24 Hours (Table) 10/30/21 09:37 Blood Culture - Preliminary Blood No Growth after 96 hours 10/30/21 09:31 Blood Culture - Preliminary Blood No Growth after 96 hours Assessment and Plan Assessment: Postop day #5, status post partial gastrectomy. Routine postoperative v entilator management. Septic shock, post gastric surgery, requiring fluids and vasopressors. Acute hypoxemic respiratory failure, status post intubation on 10/30/2021. Acute lactic acidosis, resolved. Acute kidney injury. History of CVA. Diabetes mellitus. History of hypertension. Developmental delay and autism. Episodic hypoglycemia. Plan: Plan dated 11/04/2021. The patient had reasonable weaning parameters. The rapid shallow breathing index was less than 80. The patient be given a trial of extubation. The patient continues on all appropriate medications. The patient does get Lasix 60 mg IV push prior to extubation. Additional recommendations and suggestions are forthcoming. The patient is a DO NOT RESUSCITATE patient. Post extubation, BiPAP can be employed if necessary. Labs, x-rays, and medications are all reviewed. We will continue to follow make recommendations where appropriate. Time with Patient: Greater than 30
[2021-11-04 11:49] LABS: Glucose,Whole Blood 115 mg/dL (75-99)
--- NOTE | 2021-11-04 12:07 | P.PN ---
Subjective Progress Note Date: 11/04/21 Patient was admitted for nausea vomiting diarrhea believed to have gastroenteritis. Patient continued to have vomiting and started having abdominal tenderness because of which CT of the abdomen was obtained which showed pneumatosis coli along with some gas in the venous system concern for ischemic bowel. Patient was started on Zosyn. Patient subsequently decompensated patient became hypotensive with BP of 60/40 transferred to ICU patient was given 3 L of boluses of IV fluid NG tube was placed which showed bloody output . Patient in septic shock and receiving norepinephrine at this time. Recent echo showed normal ejection fraction. Patient had CTA of the chest which was negative for pulmonary embolism patient creatinine has worsened and went up to 2.80 today from 1.14 yesterday and this is secondary to acute tubular necrosis from sepsis and septic shock. Patient does have lactic acidosis, patient does have lactic acidosis with lactic acidosis 7.5. Patient will be given 1 L of IV fluids continue pressor support. he is intubated and sedated. 10/31/2021 Patient is started having urine output. Patient underwent a arthrotomy yesterday and found to have ischemia of the lateral portion of the stomach and ischemia of the proximal jejunum patient underwent partial gastrectomy. Patient is presently on that to pressors maximized on norepinephrine, patient is also on vasopressin receiving albumin, IV fluids started having minimal urine output patient was anuric last night. Patient's chloride is highly elevated leading to metabolic acidosis patient also has an anion gap metabolic acidosis from lactic acidosis which appears to be improving at this time patient's overall clinical condition is guarded and the prognosis is poor. Patient Y blood cell count went down in fact patient is neutropenic now. Patient is presently not receiving any nutrition at this time. 11/01/2021 Patient is seen in follow-up continues to be closely monitored in the ICU in critical condition. Multiple medical consultations including pulmonary coal trammer, cardiology, surgery following closely. Patient is status post partial gastrectomy postop day #2. Patient continues on IV Zosyn along with normal saline at 75 ML per hour. Per nursing staff patient continues on Levophed along with vasopressin for pressor support. Patient not tolerating weaning very well to assess mentation. Patient continues on sedation of propofol and will continue. Chest x-ray today shows basilar atelectasis, may be associated effusion and to correlate to exclude pneumonia. Per nursing staff there has been minimal NG tube output and of note on the x-ray the distal tip of the NG tube is obscured although unable to fully see as there is overlying artifacts with the telemetry monitoring and the patient is rotated. Patient is also having hypoglycemic events and was started on dextrose. Surgery plans for TPN for nutritional support. Family at the bedside today and their questions and concerns were answered. Labs: WBC is 10.4, hgb is 9.7, platelets are 79, sodium is 144, potassium is 4.4, chloride is 125, CO2 is 11 bun is 47, creatinine is 2.18, lactic acid is 2.1, calcium is 6.9 11/02/2021 Patient evaluated today in the ICU he is postoperative day #3 for partial gastrectomy, currently intubated with an FiO2 of 30% with a PEEP of 5. Current oxygen saturations are 99 to 100%. Blood pressures 119/61, respirations 28, heart rate 107, afebrile. Chest x-ray today shows a stable chest with pleural effusion unchanged, perihilar and basilar infiltrates persist. Per nurse about 500 mLs output from NG tube in the last 12 hours. Continues on IV lasix, TPN, IV zosyn. Pressor support and propfol are currently on hold. Blood pressures are maintaining 120s systolic, heart rate 113 sinus tachycardia, afebrile, respirations 27. Patient with indwelling catheter, urine is dark susana, per nurse no BM since surgery, bowels are absent left lower quadrant, hypoactive to the right quadrant. Labs today show white count 6, hemoglobin 8.6, sodium 142, potassium 3.9, chloride 124, CO2 15, BUN 41, creatinine 1.39, blood glucose in the 80s, calcium 7.2, total bili 1.7, AST 145, ALT 59. Patient is being followed closely by pulmonary, cardiology, and surgical services. 11/03/2021 Patient evaluated today and closely monitored in ICU remains in critical condition. Patient's been off sedation for 24 hours. He is currently spontaneous eye opening, eyes are tracking however he does not move his face, n ot following motor commands unable to wiggle fingers. Once patient is more alert may tolerate extubation. He continues to be vented, Fi02 30% with a PEEP of 5 his current oxygen saturation 96%, blood pressure 112/74, heart rate sinus tachycardic in the low 100's, he has been afebrile. Patient has been in a negative fluid balance with -1.8 Liters in the last 24 hours and received 3 doses of IV lasix which is now discontinued. Bowel sounds are hypoactive, abdominal binder in place with dressings intact to midline incision, no bowel movements or passing gas as reported by RN. Creatinine slightly increased today to 1.44, BUN 37. No white count, hemoglobin stable at 8.2, platelets decreased to 40's for the last 2 days, heparin was discontinued, continues with SCD's. Liver enzymes stable from yesterday. Continues on D10 infusion, TPN, maintaining blood pressures off pressor support. Continues on IV zosyn. Chest xray today shows unchanged pleural effusion. Patient remains in the ICU followed closely by pulmonary, cardiology, and surgical services in critical condition. Code status was changed to DNR by family. 11/04/2021 Patient evaluated today in the intensive care unit, he is more alert than yesterday. Per RN patient had a large bowel movement today and bowels are hypoactive today in all quadrants. BM was a maroon color per nurse. Abdominal binder in place. Continues with rivas catheter with over 3L of urine output in the last 24 hours, still with peripheral edema. IV lasix 60 mg x1 was given today. NGT remains in place with only 50 mLs of output overnight. Patient remains off sedation, remains off pressor support. Blood pressure today 115/69, heart rate 106, low grade fever this morning 99.2 axillary, and patient was extubated mid morning is on a 15 L HF cannula. Chest xray this morning shows stable bilateral consolidation and pleural effusion. Remains on D10 gtt at 20 m Ls per hour, TPN/Lipids, and IV zosyn. Patient also received potassium supplementation today. Followed closely by multiple consultations including cardiology, pulmonary, and surgery and remains in guarded condition. Labs reviewed: sodium 135, potassium 3.2, chloride 120, CO2 20, BUN 45, creat 1.26, blood glucose in the 110's, AST 81, ALT and alk phos have normalized. Review of systems: Unable to obtain as patient is intubated and sedated PHYSICAL EXAMINATION: GENERAL: Patient is intubated, alert with spontaneous eye opening. HEENT: Pupils are round and equally reacting to light. EOMI. No scleral icterus. No conjunctival pallor. Normocephalic, atraumatic. No pharyngeal erythema. No thyromegaly. Eyes are spontaneously open today and tracking. CARDIOVASCULAR: S1 and S2 present. No murmurs, rubs, or gallops. PULMONARY: Chest is clear to auscultation, no wheezing or crackles. ABDOMEN: Bowel sounds hypoactive in all quadrants today. MUSCULOSKELETAL: No joint swelling or deformity. EXTREMITIES: No cyanosis, clubbing, generalized peripheral edema noted. NEUROLOGICAL: Intubated SKIN: No rashes. Assessment: -Post operative day #5 partical gastrectomy for ischemic stomach and also had ischemic ileum. -Septic shock status postoperatively. Blood sugars have stabilized, patient is on D10 gtt, and fluids are running at 20 cc per hour. Patient is off pressor support with stable blood pressures now 120's systolic. Patient is on IV zosyn close monitoring urine output stable. Blood cultures are negative so far. -Elevated liver enzymes most probably due to hepatic congestion from fluid overload state, improved today and patient received a one time dose of IV lasix today. -Anion gap metabolic acidosis secondary to lactic acidosis which improved patient doesn't have non-anion gap, acidosis secondary to hyperchloremia -Hypokalemia, replaced today, repeat labs tomorrow. -Acute renal failure secondary to acute blood loss from septic shock, patient is having some urine output and kidney functions trending down, cr is 1.26 today -Syncope with loss of consciousness, hypotensive secondary to above, blood pressures have stabilized off pressor support -History of CVA TIA -History diabetes mellitus type 2, uncontrolled at this time, now currently stable, off the D10 gtt. Patient continues on TPN/Lipids -History hypertension, hypotensive on admission with a blood pressure in the 70s, holding off on antihypertensive medications. Patient is now maintaining blood pressures off pressor support. -History of autism -History of intellectual impairment -GI Prophylaxis Protonix -DVT Prophylaxis Subcu heparin -NO CODE Plan: Recommend to continue with ICU management and close monitoring. Patient has been weaned off sedation for now and plan for possible extubation today as patient is more alert. Patient continues to be in critical condition with guarded prognosis. Patient has been weaned off pressor support with stable blood pressures, continue monitoring closely. Patient is NPO and was not receiving nutrition given the severity of the ischemia, Current receiving TPN/Lipids and NG tube remains in place, output has been slowing. Patient having episodes of hypoglycemia and was started on D10, blood glucose has stabilized and D10 decreased and continues to run at 20 cc per hour. Code status was addressed with family and patient is no code. Prognosis remains quite guarded and will continue to monitor closely. Objective - Vital Signs Vital signs: Vital Signs Temp 99.2 F 11/04/21 08:00 Pulse 106 H 11/04/21 10:00 Resp 36 H 11/04/21 10:00 BP 115/69 11/04/21 10:00 Pulse Ox 89 L 11/04/21 10:00 Intake & Output 11/03/21 11/04/21 11/04/21 18:59 06:59 18:59 Intake Total 5731.131 1000.417 108 Output Total 2815 935 400 Balance -892.083 382.417 -292 Weight 96 kg 96 kg Intake: IV 682 402 108 Dextrose 10% in Water 500 240 60 ml @ 20 mls/hr IV .Q24H [facility] Rx#:[id number] Invasive Line 5 30 30 10 Invasive Line 6 60 60 20 Mvi, Adult No.4 with Vit 520 K 10 ml Trace (Conc-1Ml/ Dose) 1 ml Potassium Acetate 20 meq Sodium Acetate 20 meq Calcium Gluconate 1 gm In Amino Acid 4.25%-D10w 1,000 ml @ 30 mls/hr IV .Q24H [facility] Rx#:[id number] Pressure Bag 72 72 18 Intake, IV Titration 1240.917 915.417 Amount Dextrose 10% in Water 500 80 ml In Empty Bag 1 bag @ 75 mls/hr IV .Q6H40M [facility] Rx#:[id number] Piperacillin-Tazobactam 3 200 .375 gm In Sodium Chloride 0.9% 100 ml @ 25 mls/hr IVPB Q8HR [facility] Rx# :[id number] Potassium Acetate 20 meq 960.917 915.417 Sodium Acetate 20 meq Calcium Gluconate 1 gm Potassium Phosphate 10 mmol Magnesium Sulfate gm 1 gm In Amino Acid 4.25% -D10w 1,000 ml @ 65 mls/ hr IV .BY DURATION [facility] Rx #:[id number] Output: Gastric Drainage 800 50 Urine 2015 935 350 Other: Voiding Method Indwelling Catheter Indwelling Catheter Indwelling Catheter ABP, PAP, CO, CI - Last Documented Arterial Blood Pressure 132/53 - Labs CBC & Chem 7: 11/03/21 05:30 11/04/21 07:30 Labs: Abnormal Lab Results - Last 24 Hours (Table) 11/03/21 11/04/21 11/04/21 Range/Units 23:53 05:45 07:30 ABG pCO2 29 L (35-45) mmHg ABG pO2 112 H (83-108) mmHg ABG HCO3 20 L (21-25) mmol/L ABG O2 Saturation 97.9 H (94-97) % Potassium 3.2 L (3.5-5.1) mmol/L Chloride 120 H (98-107) mmol/L Carbon Dioxide 20 L (22-30) mmol/L BUN 45 H (9-20) mg/dL Creatinine 1.26 H (0.66-1.25) mg/dL Glucose 102 H (74-99) mg/dL POC Glucose (mg/dL) 100 H (75-99) mg/dL Calcium 7.0 L (8.4-10.2) mg/dL Total Bilirubin 3.1 H (0.2-1.3) mg/dL AST 81 H (17-59) U/L Total Protein 3.9 L (6.3-8.2) g/dL Albumin 1.6 L (3.5-5.0) g/dL Microbiology - Last 24 Hours (Table) 10/30/21 09:37 Blood Culture - Preliminary Blood No Growth after 120 hours 10/30/21 09:31 Blood Culture - Preliminary Blood No Growth after 120 hours Assessment and Plan Time with Patient: Less than 30
[2021-11-04] MEDS: DEXTROSE 10% IN WATER 500 ML IV SCH ×2 (12:12→22:50)
[2021-11-04] MEDS: [UNRECOGNIZED DRUG - OTHER] IV SCH ×8 (12:36)
[2021-11-04] MEDS: SODIUM ACETATE IV SCH ×8 (12:36)
[2021-11-04] MEDS: POTASSIUM ACETATE IV SCH ×15 (12:36→22:50)
[2021-11-04] MEDS: CALCIUM GLUCONATE IV SCH ×15 (12:36→22:50)
[2021-11-04] MEDS ORDERED: FAT EMULSION 20% 500 ML IV SCH (13:00)
--- NOTE | 2021-11-04 14:16 | P.PN ---
Subjective Progress Note Date: 11/04/21 CHIEF COMPLAINT: Abdominal pain HISTORY OF PRESENT ILLNESS: Patient is status post exploratory laparotomy with partial gastrectomy for ischemia of the lateral portion of the stomach and mild ischemia noted of the proximal jejunal. Postop day #5. Patient currently in the ICU. He was extubated today. Has NG tube in place. At 400 mL out in the last 24 hours with 100 out this morning. Patient did have a small bloody mucousy bowel movement. He is on TPN for nutrition. He is off of all vasopressors. Afebrile. Sodium 145 potassium 3.2 creatinine 1.26 Patient seen and examined with Dr. jay PHYSICAL EXAM: VITAL SIGNS: Reviewed. GENERAL: Well-developed in no acute distress. HEENT: No sclera icterus. Extraocular movements grossly intact. Moist buccal mucosa. Head is atraumatic, normocephalic. ABDOMEN: Soft. Nondistended. Incisional dressing clean dry and intact NEUROLOGIC: Intubated ASSESSMENT: 1. Ischemia of the lateral portion of the stomach and mild ischemia of the proximal jejunum status post exploratory laparotomy and partial gastrectomy. 2. Septic shock PLAN: -Continue ICU management -Continue supportive care -Continue NG tube for decompression -Keep patient nothing by mouth -Continue antibiotics -Continue IV fluids -Continue TPN for nutrition support -DVT prophylaxis subcu heparin and GI prophylaxis Protonix Physician Correctional Officer Lieutenant note has been reviewed by physician. Signing provider agrees with the documented findings, assessment, and plan of care. Objective - Vital Signs Vital signs: Vital Signs Temp 99.2 F 11/04/21 08:00 Pulse 106 H 11/04/21 10:00 Resp 36 H 11/04/21 10:00 BP 115/69 11/04/21 10:00 Pulse Ox 89 L 11/04/21 10:00 Intake & Output 11/03/21 11/04/21 11/04/21 18:59 06:59 18:59 Intake Total 1321.155 6283.417 1023.417 Output Total 2815 935 400 Balance -892.083 382.417 623.417 Weight 96 kg 96 kg Intake: IV 682 402 108 Dextrose 10% in Water 500 240 60 ml @ 20 mls/hr IV .Q24H [facility] Rx#:[id number] Invasive Line 5 30 30 10 Invasive Line 6 60 60 20 Mvi, Adult No.4 with Vit 520 K 10 ml Trace (Conc-1Ml/ Dose) 1 ml Potassium Acetate 20 meq Sodium Acetate 20 meq Calcium Gluconate 1 gm In Amino Acid 4.25%-D10w 1,000 ml @ 30 mls/hr IV .Q24H [facility] Rx#:[id number] Pressure Bag 72 72 18 Intake, IV Titration 1240.917 915.417 915.417 Amount Dextrose 10% in Water 500 80 ml In Empty Bag 1 bag @ 75 mls/hr IV .Q6H40M [facility] Rx#:[id number] Piperacillin-Tazobactam 3 200 .375 gm In Sodium Chloride 0.9% 100 ml @ 25 mls/hr IVPB Q8HR [facility] Rx# :[id number] Potassium Acetate 20 meq 960.917 915.417 915.417 Sodium Acetate 20 meq Calcium Gluconate 1 gm Potassium Phosphate 10 mmol Magnesium Sulfate gm 1 gm In Amino Acid 4.25% -D10w 1,000 ml @ 65 mls/ hr IV .BY DURATION [facility] Rx #:[id number] Output: Gastric Drainage 800 50 Urine 2015 935 350 Other: Voiding Method Indwelling Catheter Indwelling Catheter Indwelling Catheter ABP, PAP, CO, CI - Last Documented Arterial Blood Pressure 132/53 - Labs CBC & Chem 7: 11/03/21 05:30 11/04/21 07:30 Labs: Abnormal Lab Results - Last 24 Hours (Table) 11/03/21 11/04/21 11/04/21 Range/Units 23:53 05:45 07:30 ABG pCO2 29 L (35-45) mmHg ABG pO2 112 H (83-108) mmHg ABG HCO3 20 L (21-25) mmol/L ABG O2 Saturation 97.9 H (94-97) % Potassium 3.2 L (3.5-5.1) mmol/L Chloride 120 H (98-107) mmol/L Carbon Dioxide 20 L (22-30) mmol/L BUN 45 H (9-20) mg/dL Creatinine 1.26 H (0.66-1.25) mg/dL Glucose 102 H (74-99) mg/dL POC Glucose (mg/dL) 100 H (75-99) mg/dL Calcium 7.0 L (8.4-10.2) mg/dL Total Bilirubin 3.1 H (0.2-1.3) mg/dL AST 81 H (17-59) U/L Total Protein 3.9 L (6.3-8.2) g/dL Albumin 1.6 L (3.5-5.0) g/dL 11/04/21 Range/Units 11:48 ABG pCO2 (35-45) mmHg ABG pO2 (83-108) mmHg ABG HCO3 (21-25) mmol/L ABG O2 Saturation (94-97) % Potassium (3.5-5.1) mmol/L Chloride (98-107) mmol/L Carbon Dioxide (22-30) mmol/L BUN (9-20) mg/dL Creatinine (0.66-1.25) mg/dL Glucose (74-99) mg/dL POC Glucose (mg/dL) 115 H (75-99) mg/dL Calcium (8.4-10.2) mg/dL Total Bilirubin (0.2-1.3) mg/dL AST (17-59) U/L Total Protein (6.3-8.2) g/dL Albumin (3.5-5.0) g/dL Microbiology - Last 24 Hours (Table) 10/30/21 09:37 Blood Culture - Preliminary Blood No Growth after 120 hours 10/30/21 09:31 Blood Culture - Preliminary Blood No Growth after 120 hours
[2021-11-04 17:08] LABS: Glucose,Whole Blood 120 mg/dL (75-99)
[2021-11-04 19:55] LABS: Glucose,Whole Blood 120 mg/dL (75-99)
[2021-11-04] MEDS: POTASSIUM PHOSPHATE IV SCH ×7 (22:50)
[2021-11-04] MEDS: [UNRECOGNIZED DRUG - OTHER] IV SCH ×7 (22:50)
[2021-11-05 02:41] LABS: Glucose,Whole Blood 128 mg/dL (75-99)
[2021-11-05 04:16] LABS: Glucose,Whole Blood 131 mg/dL (75-99)
[2021-11-05] MEDS: HYDROmorphone 1 MG/ML 1 ML SYRINGE IVP PRN (04:50)
[2021-11-05 07:56] LABS: Basophils # (A) 0.1 k/uL (0-0.2); Basophils % (A) 1 %; Eosinophils # (A) 0.2 k/uL (0-0.7); Eosinophils % (A) 2 %; HCT 23.9 % (39.0-53.0); HGB 7.7 gm/dL (13.0-17.5); Hypochromasia Moderate; Lymphocytes # (A) 0.7 k/uL (1.0-4.8); Lymphocytes % (A) 9 %; MCH 26.8 pg (25.0-35.0); MCHC 32.4 g/dL (31.0-37.0); MCV 82.6 fL (80.0-100.0); Mean Platelet Volume 10.3; Monocytes # (A) 0.3 k/uL (0-1.0); Monocytes % (A) 5 %; Neutrophils # (A) 5.9 k/uL (1.3-7.7); Neutrophils % (A) 79 %; RDW 15.9 % (11.5-15.5); WBC 7.5 k/uL (3.8-10.6)
[2021-11-05 07:57] LABS: Platelet Count 65 k/uL (150-450)
[2021-11-05 08:02] LABS: African American GFR (CKD) >90 (>60 ml/min/1.73 sqM); Anion Gap 2 mmol/L; Blood Urea Nitrogen 40 mg/dL (9-20); Calcium 7.1 mg/dL (8.4-10.2); Carbon Dioxide 23 mmol/L (22-30); Chloride 119 mmol/L (98-107); Glucose 127 mg/dL (74-99); Magnesium 2.3 mg/dL (1.6-2.3); Non-African American GFR(CKD) 80 (>60 ml/min/1.73 sqM); Phosphorus 3.9 mg/dL (2.5-4.5); Potassium 3.5 mmol/L (3.5-5.1); Sodium 144 mmol/L (137-145)
--- NOTE | 2021-11-05 08:21 | XR ---
EXAMINATION TYPE: XR chest 1V portable DATE OF EXAM: 11/05/2021 COMPARISON: Chest x-ray 11/04/2021 HISTORY: Extubated, abnormal chest x-ray TECHNIQUE: Single frontal view of the chest is obtained. FINDINGS: Endotracheal tube has been removed. NG tube, right jugular central venous catheter remain in place. The hemidiaphragms are secured by abnormal density. No evident pneumothorax. Cardiac medias tinal silhouette likely stable, patient is rotated. There are overlying artifacts. IMPRESSION: Correlate for pneumonia, congestive heart failure, possible effusion and associated atel ectasis versus edema
[2021-11-05] MEDS: CALCIUM GLUCONATE IV SCH ×21 (09:06→19:52)
[2021-11-05] MEDS: POTASSIUM PHOSPHATE IV SCH ×21 (09:06→19:52)
[2021-11-05] MEDS: [UNRECOGNIZED DRUG - OTHER] IV SCH ×14 (09:06→18:48)
[2021-11-05] MEDS: POTASSIUM ACETATE IV SCH ×21 (09:06→19:52)
[2021-11-05] MEDS: POTASSIUM CHLORIDE 20 MEQ in WATER FOR INJECTION 1 100ML.BAG IVPB SCH ×2 (09:16→13:39)
[2021-11-05] MEDS: PANTOPRAZOLE 40 MG/10 ML VIAL IVP SCH ×2 (09:16→20:02)
[2021-11-05] MEDS: PIPERACILLIN-TAZOBACTAM 3.375 GM in SODIUM CHLORIDE 0.9% 100 ML IVPB SCH ×5 (09:16→23:37)
--- NOTE | 2021-11-05 09:27 | P.PN ---
Subjective Progress Note Date: 11/05/21 Principal diagnosis: Respiratory failure. On 11/01/2021, the patient remains intubated on a mechanical ventilator. The patient's condition remains critical and the patient developed septic shock and multisystem organ failure due to GI complications/acute abdomen. The patient is post partial gastrectomy and the patient is postop day #2. On today's evaluation, the patient remains on a mechanical ventilator and the patient is still sedated with propofol. Propofol residing at 50 mcg/kg per minute. The patient is quite stiff is a mechanical ventilator and the patient is an assist- control at the rate of 28 with a tidal volume of 450, FiO2 60% with a PEEP of 5. The patient has a pH of 7.3 and I attribute to 29 and pO2 of 174. Chest x-ray showing development of a left lower lobe pulmonary infiltrates/atelectasis/effusion. ET tube was in a good location. NG tube is a lso has a good location. Meanwhile, the patient continues to be aggressively resuscitated IV fluids. Overall fluid balance over the past 24 hours has been +5.5 L the patient received several fluid boluses. The patient has dropped the lactic acid level down to 0.1. Norepinephrine infusion is also being weaned down to 0.4 mg/kg per minute and vasopressin is at 0.03 units per minute. As such, there has been some improvement in the pressors requirements nontender the patient norepinephrine infusion was as high as 1 mcg/kg per minute. Meanwhile, the patient is developing episodes of hypoglycemia. Blood sugar is at 151. Currently he is on D5 minimal white discharge in the D10. We'll also consider possibility of starting the patient on TPN for nutritional support special with ongoing episodes of hypoglycemia. The patient is afebrile. The white second attempt 0.4 with a hemoglobin of 9.7 and a platelet count of 79 sodium is at 144 with a potassium of 4.4, serum bicarbonate of 11 degenerative 47 with a creatinine of 2.1. Cultures of been all negative thus far. Baseline serum cristhian isol level at 23. TSH 00.8. NG tube is in place and output is minimal and there is no signs of any upper GI bleeding at this point in time. Surgical wound site is dry clean and intact. 11/02/2021, I'm seeing the patient postop day #3. The patient seems to be more stable compared to yesterday. Noted the patient had an extensive surgery which included a partial gastrectomy. Postop, the patient developed hypotension/shock/multisystem organ failure. He has a more stable condition on today's evaluation. He is on assist-control mode rate of 28, tidal volume of 450, FiO2 of 30% and a PEEP of 5. The blood gas showed a pH of 7.32 with a pCO2 of 31 and pO2 of 184. Since early childhood associate at 2 AM, the patient was also taken off the vasopressin drip and the patient was taken off the norepinephrine drip. Chest x-ray showing pulmonary vascular congestion and some edema in addition to development of a left-sided pleural effusion. ET tube remains in a good location. Despite his fluid overload, the patient's is oxygenating adequately. Input output balance is +5.5 L over the past 24 hours. The NG tube output has been 500 mL of gastric material over the past 12 hours. The patient also on TPN running at 30 mL an hour. Bowel sounds are absent. Surgical wound sites are clean and intact. Patient has adequate pulses in all 4 extremities. Urine output is adequate and the creatinine is down to 1.39 with a BUN of 41 and a sodium level of 142. The patient is afebrile. The patient is hemodynamically stable. The patient is also off the D10 infusion. No further episodes of hypoglycemia this point in time. 11/03/2021, the patient is postop day #4. Hemodynamically stable on no pre ssors. He remains on a mechanical ventilator. Propofol was discontinued yesterday. The patient is grimacing to painful stimulation. He is not following commands yet. He is opening up his eyes. I think there is some neurologic recovery although the patient may still be encephalopathic due to sh ock. In the rate, the patient remains nothing by mouth. The NG tube is in place and the output has been in the order of 800 mL over the past 24 hours. Hypoactive bowel sounds. No bowel movement activity or flatus yet. Input output balance is -1.8 L. The patient remains on TPN for nutritional support rate of 65 mL an hour. In view of underlying episodes of hypoglycemia, the patient was also placed on D10 at the rate of 20 mL an hour. Blood sugars are still lower and soft. The patient is producing adequate amount of urine output. Creatinine is at 1.44 with BUN of 37. IV fluids was cut down to KVO. Lasix was given yesterday and another dose of Lasix will be given today. He will be given 4 mg IV push 1. Chest x-rays done today shows a left-sided pleural effusion. ET tube is in a good location. OG tube is in a good location. No other acute abnormalities. The patient remains on a mechanical ventilator today and an assist-control mode at the rate of 28 with a tidal volume of 450 and FiO2 of 30% with a PEEP of 5. The blood gases from today shows a pH of 7.39 with a pCO2 of 32 and pO2 of 119. Meanwhile, the patient has good weaning parameters. Unable to extubated the patient has not had adequate level of alertness. His weaning parameters seem to be good and should be able to tolerate a spontaneous breathing trial without any issues. Progress note dated 11/04/2021. This is a 51-year-old male, who was admitted to the hospital on October 29. The patient came in with syncope, nausea vomiting, and low blood pressure. The patient came to the intensive care unit, on October 30. He was intubated on that same day, having had a partial gastrectomy. Today's postop day #5. The patient is a DO NOT RESUSCITATE patient. He remains on mechanical ventilator. He is on the volume assist control mode, rate 28, tidal volume 450, FiO2 30%, PEEP of 5. Blood gases show pO2 112, pCO2 29, and pH is 7.45. The patient's on D10, at 20 mL an hour, and TPN at 65 mL an hour. The patient will get Lasix 60 mg IV push today. We will attempt a daily interruption of sedation, and a spontaneous breathing trial. Sodium 145, potassium 3.2, chlorides 120, CO2 20, anion gap 5, BUN 45, and creatinine 1.26. There was no CBC today. Albumin is 1.6. Microbiology is negative. Chest x-ray shows stable bilateral consolidations and small effusions. Weaning parameters today, were reasonable. The rapid shallow breathing index was 72. He did have a cuff leak. He will be given a trial of extubation. Progress note dated 11/05/2021. This is a 51-year-old male, who is again seen in room 255. He was admitted to the hospital on October 29. He came in with syncope, nausea, vomiting, and low blood pressure. He came to the intensive care unit one day later on October 30. He was intubated on that same day, having had a partial gastrectomy. Today is postop day #6. Yesterday, he was on the ventilator. We did do a daily interruption of sedation, and worse able to extubate him yesterday. He is a DO NOT RESUSCITATE patient. Currently, he's on 5 L nasal cannula. He's getting D1 0 at 20 mL an hour, TPN is running at 98 mL an hour, and saline at 10 mL an hour. White count 7.5, hemoglobin 7.7, hematocrit 23.9, and platelet count 65,000. Sodium 144, potassium 3.5, chlorides 119, CO2 23, anion gap 2, BUN 40, creatinine 1.06. Blood cultures, currently negative. Chest x-ray shows bilateral consolidations and small effusions. The chest x-ray is a bit worse today, likely because the patient is not on positive pressure ventilation. Objective - Vital Signs Vital signs: Vital Signs Temp 98.1 F 11/05/21 04:00 Pulse 87 11/05/21 07:00 Resp 22 11/05/21 07:00 BP 135/72 11/05/21 07:00 Pulse Ox 96 11/05/21 07:00 Intake & Output 11/04/21 11/05/21 11/05/21 18:59 06:59 18:59 Intake Total 1291.583 057 7291.133 Output Total 2500 2970 175 Balance -1208.583 -2551 1077.133 Weight 96 kg 93.6 kg Intake: IV 376 419 246 Dextrose 10% in Water 500 220 260 40 ml @ 20 mls/hr IV .Q24H [facility] Rx#:[id number] Invasive Line 5 30 30 Invasive Line 6 60 60 Piperacillin-Tazobactam 3 100 .375 gm In Sodium Chloride 0.9% 100 ml @ 25 mls/hr IVPB Q8HR [facility] Rx# :[id number] Potassium Chloride 20 meq 100 In Water For Injection 1 100ml.bag @ 50 mls/hr IVPB Q2H [facility] Rx#: [id number] Pressure Bag 66 69 6 Intake, IV Titration 965.387 9583.133 Amount Mvi, Adult No.4 with Vit 1006.133 K 10 ml Trace (Conc-1Ml/ Dose) 1 ml Potassium Acetate 40 meq Calcium Gluconate 1 gm Potassium Phosphate 10 mmol Magnesium Sulfate gm 1 gm In Amino Acid 4.25%-D10w 1,000 ml @ 98 mls/hr IV .BY DURATION [facility] Rx#: [id number] Potassium Acetate 20 meq 915.417 Sodium Acetate 20 meq Calcium Gluconate 1 gm Potassium Phosphate 10 mmol Magnesium Sulfate gm 1 gm In Amino Acid 4.25% -D10w 1,000 ml @ 65 mls/ hr IV .BY DURATION [facility] Rx #:[id number] Output: Gastric Drainage 50 1720 Urine 2450 1250 175 Other: Voiding Method Indwelling Catheter Indwelling Catheter # Bowel Movements 1 ABP, PAP, CO, CI - Last Documented Arterial Blood Pressure 106/68 - Exam No acute distress, NG tube in place, with nasal cannula at 5 L/m. The patient does not appropriately. HEENT examination is grossly unremarkable. Neck supple. Full range of motion. No adenopathy thyromegaly or neck vein distention. Cardiovascular examination reveals regular rhythm rate. S1-S2 normal. No S3 or S4. No discernible murmur noted. Heart sounds are distant. Heart rate 88 bpm. Lungs reveal mild scattered rhonchi. No wheezes or crackles. Breath sounds equal bilaterally. Saturations are 97% on 5 L nasal cannula. Abdomen soft, without bowel sounds. Extremities are intact. No cyanosis or clubbing. Mild diffuse edema noted. Skin is without rash or lesion. Neurologic examination reveals a extubated white male, he does nod appropriately. Nasal cannula in place. NG tube in place. - Labs CBC & Chem 7: 11/05/21 07:13 11/05/21 07:13 Labs: Abnormal Lab Results - Last 24 Hours (Table) 11/04/21 11/04/21 11/04/21 Range/Units 11:48 17:06 19:52 RBC (4.30-5.90) m/uL Hgb (13.0-17.5) gm/dL Hct (39.0-53.0) % RDW (11.5-15.5) % Plt Count (150-450) k/uL Lymphocytes # (1.0-4.8) k/uL Chloride (98-107) mmol/L BUN (9-20) mg/dL Glucose (74-99) mg/dL POC Glucose (mg/dL) 115 H 120 H 120 H (75-99) mg/dL Calcium (8.4-10.2) mg/dL 11/05/21 11/05/21 11/05/21 Range/Units 02:39 04:14 07:13 RBC (4.30-5.90) m/uL Hgb (13.0-17.5) gm/dL Hct (39.0-53.0) % RDW (11.5-15.5) % Plt Count (150-450) k/uL Lymphocytes # (1.0-4.8) k/uL Chloride 119 H (98-107) mmol/L BUN 40 H (9-20) mg/dL Glucose 127 H (74-99) mg/dL POC Glucose (mg/dL) 128 H 131 H (75-99) mg/dL Calcium 7.1 L (8.4-10.2) mg/dL 11/05/21 Range/Units 07:13 RBC 2.90 L (4.30-5.90) m/uL Hgb 7.7 L (13.0-17.5) gm/dL Hct 23.9 L (39.0-53.0) % RDW 15.9 H (11.5-15.5) % Plt Count 65 L D (150-450) k/uL Lymphocytes # 0.7 L (1.0-4.8) k/uL Chloride (98-107) mmol/L BUN (9-20) mg/dL Glucose (74-99) mg/dL POC Glucose (mg/dL) (75-99) mg/dL Calcium (8.4-10.2) mg/dL Microbiology - Last 24 Hours (Table) 10/30/21 09:37 Blood Culture - Preliminary Blood No Growth after 120 hours 10/30/21 09:31 Blood Culture - Preliminary Blood No Growth after 120 hours Assessment and Plan Assessment: Postop day #6, status post partial gastrectomy. Routine postoperative ventilator management. Status post extubation from mechanical ventilation, 11/04/2021. Septic shock, post gastric surgery, requiring fluids and vasopressors. Acute hypoxemic respiratory failure, status post intubation on 10/30/2021. Acute lactic acidosis, resolved. Acute kidney injury. History of CVA. Diabetes mellitus. History of hypertension. Developmental delay and autism. Episodic hypoglycemia. Plan: Plan dated 11/04/2021. The patient had reasonable weaning parameters. The rapid shallow breathing index was less than 80. The patient be given a trial of extubation. The patient continues on all appropriate medications. The patient does get Lasix 60 mg IV push prior to extubation. Additional recommendations and suggestions are forthcoming. The patient is a DO NOT RESUSCITATE patient. Post extubation, BiPAP can be employed if necessary. Labs, x-rays, and medications are all reviewed. We will continue to follow make recommendations where appropriate. Plan dated 11/05/2021. The patient was extubated yesterday. The patient remains on D10, and also TPN at 90 mL an hour. I've asked the nurse to try to get the patient to do jonny ntive spirometry. The NG tube remains in place. Chest x-ray, labs, and medications are reviewed. The patient is a DO NOT RESUSCITATE patient. Patient remains on Zosyn. The patient's also getting GI prophylaxis with Protonix. Time with Patient: Greater than 30
[2021-11-05 11:34] LABS: Glucose,Whole Blood 140 mg/dL (75-99)
--- NOTE | 2021-11-05 12:31 | P.PN ---
Subjective Progress Note Date: 11/05/21 CHIEF COMPLAINT: Abdominal pain HISTORY OF PRESENT ILLNESS: Patient is status post exploratory laparotomy with partial gastrectomy for ischemia of the lateral portion of the stomach and mild ischemia noted of the proximal jejunal. Postop day #6. Patient currently in the ICU. Patient was extubated yesterday. He remains off pressors. He is sitting at bedside chair. Nursing staff had pretty much looked patient to get bedside chair. He did have a large output through his NG tube 1270 mL. Patient is awake and not really following commands. Neurology has been consulted. Patient does have prior history of stroke and autism. He is on TPN for nutrition support. Patient did have bowel movements yesterday. Patient seen and examined with Dr. jay PHYSICAL EXAM: VITAL SIGNS: Reviewed. GENERAL: Well-developed in no acute distress. HEENT: No sclera icterus. Extraocular movements grossly intact. Moist buccal mucosa. Head is atraumatic, normocephalic. ABDOMEN: Soft. Nondistended. Incisional dressing clean dry and intact NEUROLOGIC: Intubated ASSESSMENT: 1. Ischemia of the lateral portion of the stomach and mild ischemia of the proximal jejunum status post exploratory laparotomy and partial gastrectomy. 2. Septic shock 3. Possible encephalopathy PLAN: -Continue ICU management -Continue supportive care -Consult neurology for mental status change, encephalopathy -Continue NG tube for decompression -Keep patient nothing by mouth -Continue antibiotics -Continue IV fluids -Continue TPN for nutrition support -DVT prophylaxis subcu heparin and GI prophylaxis Protonix -CODE STATUS DO NOT RESUSCITATE Physician Volcanology Professor note has been reviewed by physician. Signing provider agrees with the documented findings, assessment, and plan of care. Objective - Vital Signs Vital signs: Vital Signs Temp 98.9 F 11/05/21 12:00 Pulse 86 11/05/21 12:00 Resp 29 H 11/05/21 12:00 BP 128/73 11/05/21 12:00 Pulse Ox 100 11/05/21 12:00 Intake & Output 11/04/21 11/05/21 11/05/21 18:59 06:59 18:59 Intake Total 1291.908 336 2967.133 Output Total 2500 2970 330 Balance -1208.583 -2551 968.133 Weight 96 kg 93.6 kg Intake: IV 376 419 292 Dextrose 10% in Water 500 220 260 80 ml @ 20 mls/hr IV .Q24H [facility] Rx#:[id number] Invasive Line 5 30 30 Invasive Line 6 60 60 Piperacillin-Tazobactam 3 100 .375 gm In Sodium Chloride 0.9% 100 ml @ 25 mls/hr IVPB Q8HR [facility] Rx# :[id number] Potassium Chloride 20 meq 100 In Water For Injection 1 100ml.bag @ 50 mls/hr IVPB Q2H [facility] Rx#: [id number] Pressure Bag 66 69 12 Intake, IV Titration 654.888 4933.133 Amount Mvi, Adult No.4 with Vit 1006.133 K 10 ml Trace (Conc-1Ml/ Dose) 1 ml Potassium Acetate 40 meq Calcium Gluconate 1 gm Potassium Phosphate 10 mmol Magnesium Sulfate gm 1 gm In Amino Acid 4.25%-D10w 1,000 ml @ 98 mls/hr IV .BY DURATION [facility] Rx#: [id number] Potassium Acetate 20 meq 915.417 Sodium Acetate 20 meq Calcium Gluconate 1 gm Potassium Phosphate 10 mmol Magnesium Sulfate gm 1 gm In Amino Acid 4.25% -D10w 1,000 ml @ 65 mls/ hr IV .BY DURATION [facility] Rx #:[id number] Output: Gastric Drainage 50 1720 Urine 2450 1250 330 Other: Voiding Method Indwelling Catheter Indwelling Catheter Indwelling Catheter # Bowel Movements 1 ABP, PAP, CO, CI - Last Documented Arterial Blood Pressure 106/68 - Labs CBC & Chem 7: 11/05/21 07:13 11/05/21 07:13 Labs: Abnormal Lab Results - Last 24 Hours (Table) 11/04/21 11/04/21 11/05/21 Range/Units 17:06 19:52 02:39 RBC (4.30-5.90) m/uL Hgb (13.0-17.5) gm/dL Hct (39.0-53.0) % RDW (11.5-15.5) % Plt Count (150-450) k/uL Lymphocytes # (1.0-4.8) k/uL Chloride (98-107) mmol/L BUN (9-20) mg/dL Glucose (74-99) mg/dL POC Glucose (mg/dL) 120 H 120 H 128 H (75-99) mg/dL Calcium (8.4-10.2) mg/dL 03/04/2111/05/21 11/05/21 Range/Units 04:14 07:13 07:13 RBC 2.90 L (4.30-5.90) m/uL Hgb 7.7 L (13.0-17.5) gm/dL Hct 23.9 L (39.0-53.0) % RDW 15.9 H (11.5-15.5) % Plt Count 65 L D (150-450) k/uL Lymphocytes # 0.7 L (1.0-4.8) k/uL Chloride 119 H (98-107) mmol/L BUN 40 H (9-20) mg/dL Glucose 127 H (74-99) mg/dL POC Glucose (mg/dL) 131 H (75-99) mg/dL Calcium 7.1 L (8.4-10.2) mg/dL 11/05/21 Range/Units 11:32 RBC (4.30-5.90) m/uL Hgb (13.0-17.5) gm/dL Hct (39.0-53.0) % RDW (11.5-15.5) % Plt Count (150-450) k/uL Lymphocytes # (1.0-4.8) k/uL Chloride (98-107) mmol/L BUN (9-20) mg/dL Glucose (74-99) mg/dL POC Glucose (mg/dL) 140 H (75-99) mg/dL Calcium (8.4-10.2) mg/dL Microbiology - Last 24 Hours (Table) 10/30/21 09:37 Blood Culture - Final Blood No Growth after 144 hours 10/30/21 09:31 Blood Culture - Final Blood No Growth after 144 hours
--- NOTE | 2021-11-05 12:56 | P.PN ---
Subjective Progress Note Date: 11/05/21 Patient was admitted for nausea vomiting diarrhea believed to have gastroenteritis. Patient continued to have vomiting and started having abdominal tenderness because of which CT of the abdomen was obtained which showed pneumatosis coli along with some gas in the venous system concern for ischemic bowel. Patient was started on Zosyn. Patient subsequently decompensated patient became hypotensive with BP of 60/40 transferred to ICU patient was given 3 L of boluses of IV fluid NG tube was placed which showed bloody output . Patient in septic shock and receiving norepinephrine at this time. Recent echo showed normal ejection fraction. Patient had CTA of the chest which was negative for pulmonary embolism patient creatinine has worsened and went up to 2.80 today from 1.14 yesterday and this is secondary to acute tubular necrosis from sepsis and septic shock. Patient does have lactic acidosi s, patient does have lactic acidosis with lactic acidosis 7.5. Patient will be given 1 L of IV fluids continue pressor support. he is intubated and sedated. 10/31/2021 Patient is started having urine output. Patient underwent a arthrotomy yesterday and found to have ischemia of the lateral portion of the stomach and ischemia of the proximal jejunum patient underwent partial gastrectomy. Patient is presently on that to pressors maximized on norepinephrine, patient is also on vasopressin receiving albumin, IV fluids started having minimal urine output patient was anuric last night. Patient's chloride is highly elevated leading to metabolic acidosis patient also has an anion gap metabolic acidosis from lactic acidosis which appears to be improving at this time patient's overall clinical condition is guarded and the prognosis is poor. Patient Y blood cell count went down in fact patient is neutropenic now. Patient is presently not receiving any nutrition at this time. 11/01/2021 Patient is seen in follow-up continues to be closely monitored in the ICU in critical condition. Multiple medical consultations including pulmonary operator maintainer, cardiology, surgery following closely. Patient is status post partial gastrectomy postop day #2. Patient continues on IV Zosyn along with normal saline at 75 ML per hour. Per nursing staff patient continues on Levophed along with vasopressin for pressor support. Patient not tolerating weaning very well to assess mentation. Patient continues on sedation of propofol and will continue. Chest x-ray today shows basilar atelectasis, may be associated effusion and to correlate to exclude pneumonia. Per nursing staff there has been minimal NG tube output and of note on the x-ray the distal tip of the NG tube is obscured although unable to fully see as there is overlying artifacts with the telemetry monitoring and the patient is rotated. Patient is also having hypoglycemic events and was started on dextrose. Surgery plans for TPN for nutritional support. Family at the bedside today and their questions and concerns were answered. 11/02/2021 Patient evaluated today in the ICU he is postoperative day #3 for partial gastrectomy, currently intubated with an FiO2 of 30% with a PEEP of 5. Current oxygen saturations are 99 to 100%. Blood pressures 119/61, respirations 28, heart rate 107, afebrile. Chest x-ray today shows a stable chest with pleural effusion unchanged, perihilar and basilar infiltrates persist. Per nurse about 500 mLs output from NG tube in the last 12 hours. Continues on IV lasix, TPN, IV zosyn. Pressor support and propfol are currently on hold. Blood pressures are maintaining 120s systolic, heart rate 113 sinus tachycardia, afebrile, respirations 27. Patient with indwelling catheter, urine is dark susana, per nurse no BM since surgery, bowels are absent left lower quadrant, hypoactive to the right quadrant. Labs today show white count 6, hemoglobin 8.6, sodium 142, potassium 3.9, chloride 124, CO2 15, BUN 41, creatinine 1.39, blood glucose in the 80s, calcium 7.2, total bili 1.7, AST 145, ALT 59. Patient is being followed closely by pulmonary, cardiology, and surgical services. 11/03/2021 Patient evaluated today and closely monitored in ICU remains in critical condition. Patient's been off sedation for 24 hours. He is currently spontaneous eye opening, eyes are tracking however he does not move his face, not following motor commands unable to wiggle fingers. Once patient is more a lert may tolerate extubation. He continues to be vented, Fi02 30% with a PEEP of 5 his current oxygen saturation 96%, blood pressure 112/74, heart rate sinus tachycardic in the low 100's, he has been afebrile. Patient has been in a negative fluid balance with -1.8 Liters in the last 24 hours and received 3 doses of IV lasix which is now discontinued. Bowel sounds are hypoactive, abdominal binder in place with dressings intact to midline incision, no bowel movements or passing gas as reported by RN. Creatinine slightly increased today to 1.44, BUN 37. No white count, hemoglobin stable at 8.2, platelets decreased to 40's for the last 2 days, heparin was discontinued, continues with SCD's. Liver enzymes stable from yesterday. Continues on D10 infusion, TPN, maintaining blood pressures off pressor support. Continues on IV zosyn. Chest xray today shows unchanged pleural effusion. Patient remains in the ICU followed closely by pulmonary, cardiology, and surgical services in critical condition. Code status was changed to DNR by family. 11/04/2021 Patient evaluated today in the intensive care unit, he is more alert than yesterday. Per RN patient had a large bowel movement today and bowels are hypoactive today in all quadrants. BM was a maroon color per nurse. Abdominal binder in place. Continues with rivas catheter with over 3L of urine output in the last 24 hours, still with peripheral edema. IV lasix 60 mg x1 was given today. NGT remains in place with only 50 mLs of output overnight. Patient remains off sedation, remains off pressor support. Blood pressure today 115/69, heart rate 106, low grade fever this morning 99.2 axillary, and patient was extubated mid morning is on a 15 L HF cannula. Chest xray this morning shows stable bilateral consolidation and pleural effusion. Remains on D10 gtt at 20 mLs per hour, TPN/Lipids, and IV zosyn. Patient also received potassium suppl ementation today. Followed closely by multiple consultations including cardiology, pulmonary, and surgery and remains in guarded condition. Labs reviewed: sodium 135, potassium 3.2, chloride 120, CO2 20, BUN 45, creat 1.26, blood glucose in the 110's, AST 81, ALT and alk phos have normalized. 11/05/2021 Patient is seen and evaluated in follow-up continues to be in the ICU under close monitoring. Patient was recently extubated and continues on 5 L high flow nasal cannula and oxygen saturations have been 97-100%. Multiple medical consultations including pulmonary operator maintainer and surgery following closely. Chest x-ray today shows removal of endotracheal tube along with NG tube and central venous catheter on the right remains in place with no evident pneumothorax and to correlate for pneumonia, congestive heart failure, possible effusions and associated atelectasis versus edema. Patient did receive a dose of IV Lasix yesterday. Neurology consulted and CT of the brain without contrast ordered to assess mentation which is currently pending. Patient is continued on D10 and water and maintaining blood sugars in the 120s and will continue current regimen. Hemoglobin is 7.7 today with no bleeding noted. Platelets on the lower side at 65 although improved from previous and will continue to monitor closely with repeat labs in the morning. Patient also continues on IV Zosyn and will continue at this time. Review of systems: Unable to obtain as patient is intubated and sedated Active Medications Hydromorphone HCl (Hydromorphone 1 Mg/Ml 1 Ml Syringe) 0.5 mg IVP Q2HR PRN PRN Reason: Pain Last Admin: 11/05/21 04:50 Dose: 0.5 mg Documented by: Piperacillin Sod/Tazobactam (Sod 3.375 gm/ Sodium Chloride) 100 mls @ 25 mls/hr IVPB Q8HR [facility]; Protocol Last Admin: 11/05/21 09:16 Dose: 25 mls/hr Documented by: Dextrose/Water (Dextrose 10%-Water Iv Soln) 500 mls @ 20 mls/hr IV .Q24H [facility] Last Admin: 11/04/21 22:50 Dose: 20 mls/hr Documented by: Fat Emulsion Intravenous (Lipids 20%) 500 mls @ 41.667 mls/hr IV Mo ROBERTO Last Admin: 11/04/21 12:37 Dose: 41.667 mls/hr Documented by: Potassium Acetate 40 meq/Calcium Gluconate 1 gm/Potassium Phosphate 10 mmol/Magnesium Sulfate 1 gm/ Amino Acids/Dextrose 1,035.3333 mls @ 98 mls/hr IV .BY DURATION [facility] Stop: 11/05/21 19:59 Parenteral Vitamin Supplement 10 ml/ Zinc/Copper/Manganese/Selenium 1 ml/ Potassium Acetate 40 meq/ Calcium Gluconate 1 gm/ Potassium Phosphate 10 mmol/ Magnesium Sulfate 1 gm/ Amino Acids/Dextrose 1,046.3333 mls @ 98 mls/hr IV .BY DURATION [facility] Stop: 11/05/21 19:59 Last Admin: 11/05/21 09:06 Dose: 98 mls/hr Documented by: Potassium Chloride 20 meq/ IV (Solution) 100 mls @ 50 mls/hr IVPB Q2H [facility]; Protocol Stop: 11/05/21 12:59 Last Admin: 11/05/21 09:16 Dose: 50 mls/hr Documented by: Potassium Acetate 40 meq/Calcium Gluconate 1 gm/Potassium Phosphate 6 mmol/Magnesium Sulfate 0.5 gm/Amino Acids/Dextrose 1,033 mls @ 98 mls/hr IV .BY DURATION [facility] Parenteral Vitamin Supplement 10 ml/ Zinc/Copper/Manganese/Selenium 1 ml/ Potassium Acetate 40 meq/ Calcium Gluconate 1 gm/ Potassium Phosphate 6 mmol/ Magnesium Sulfate 0.5 gm/ Amino Acids/Dextrose 1,044 mls @ 98 mls/hr IV .BY DURATION [facility] Miscellaneous Information (Potassium Replacement Protocol 1 Each Misc) 1 each MISCELLANE DAILY PRN; Protocol PRN Reason: Per Protocol Nystatin (Nystatin 100,000 Unit/Gm Powd 15 Gm) 1 applic TOPICAL DAILY PRN; Protocol PRN Reason: Rash Ondansetron HCl (Ondansetron 4 Mg/2 Ml Vial) 4 mg IVP Q8HR PRN PRN Reason: Nausea And Vomiting Last Admin: 10/30/21 09:30 Dose: 4 mg Documented by: Pantoprazole Sodium (Pantoprazole 40 Mg/10 Ml Vial) 40 mg IVP BID [facility] Last Admin: 11/05/21 09:16 Dose: 40 mg Documented by: PHYSICAL EXAMINATION: GENERAL: Patient is extubated yesterday, alert with spontaneous eye opening. Not Following commands, eye tracking HEENT: Pupils are round and equally reacting to light. EOMI. No scleral icterus. No conjunctival pallor. Normocephalic, atraumatic. No pharyngeal erythema. No thyromegaly. Eyes are tracking. CARDIOVASCULAR: S1 and S2 muffled PULMONARY: Manage breath sounds bilaterally with some scattered crackles and rhonchi noted ABDOMEN: Bowel sounds hypoactive in all quadrants today. MUSCULOSKELETAL: No joint swelling or deformity. EXTREMITIES: No cyanosis, clubbing, generalized peripheral edema noted. NEUROLOGICAL: Intubated SKIN: No rashes. Assessment: -Post operative day #6 partial gastrectomy for ischemic stomach and also had ischemic ileum. -Septic shock status postoperatively. Blood sugars have stabilized, patient is on D10 gtt, and fluids are running at 20 cc per hour. Patient is off pressor support with stable blood pressures now 120's systolic. Patient is on IV zosyn close monitoring urine output stable. Blood cultures are negative so far. -Elevated liver enzymes most probably due to hepatic congestion from fluid overload state, improved today and patient received a one time dose of IV lasix today. -Anion gap metabolic acidosis secondary to lactic acidosis which improved p atient doesn't have non-anion gap, acidosis secondary to hyperchloremia -Hypokalemia, 3.5 today -Acute renal failure secondary to acute blood loss from septic shock, patient is having some urine output and kidney functions trending down, cr is 1.06 today -Syncope with loss of consciousness, hypotensive secondary to above, blood pressures have stabilized off pressor support -History of CVA TIA -History diabetes mellitus type 2, uncontrolled at this time, now currently stable, receiving D10 in water Patient continues on TPN/Lipids -History hypertension, hypotensive on admission with a blood pressure in the 70s, holding off on antihypertensive medications. Patient is now maintaining blood pressures off pressor support. -History of autism -History of intellectual impairment -GI Prophylaxis Protonix -DVT Prophylaxis Subcu heparin -NO CODE Plan: Recommend to continue with ICU management and close monitoring. Patient has been weaned off sedation and extubated yesterday. Patient is currently maintained on 5 L high flow nasal cannula with oxygen saturations of 97-100%. respirations con tinue to be elevated at 29. Patient continues to be in critical condition with guarded prognosis. Patient continues off pressor support with stable blood pressures, and recommend to continue monitoring closely. Patient is NPO and currently receiving TPN and also recommend continue monitoring blood sugars closely as patient was having episodes of hypoglycemia and will continue to monitor closely. Patient to continue with NG tube for now as patient had large amount of output and surgery following recommending to continue with this. Neurology consulted and pending at this time to assess mentation. CT brain without contrast also ordered and pending. Will repeat a.m. labs to monitor closely. Prognosis remains quite guarded and will continue to monitor closely. The impression and plan of care has been dictated by Rozina Nam, nurse practitioner as directed. Dr. John MD I have performed a history and examination and MDM of this patient, discussed the same with the dictator, and agree with the dictator's assessment and plan as written ,documented as a scribe. Based on total visit time, I have performed more than 50% of the visit. Total number of minutes spent on this visit, 20 minutes. Any additional findings or plans will be noted. Objective - Vital Signs Vital signs: Vital Signs Temp 98.1 F 11/05/21 04:00 Pulse 87 11/05/21 07:00 Resp 22 11/05/21 07:00 BP 135/72 11/05/21 07:00 Pulse Ox 96 11/05/21 07:00 Intake & Output 11/04/21 11/05/21 11/05/21 18:59 06:59 18:59 Intake Total 1291.134 410 8067.133 Output Total 2500 2970 Balance -1208.583 -2551 1006.133 Weight 96 kg 93.6 kg Intake: IV 376 419 Dextrose 10% in Water 500 220 260 ml @ 20 mls/hr IV .Q24H [facility] Rx#:[id number] Invasive Line 5 30 30 Invasive Line 6 60 60 Pressure Bag 66 69 Intake, IV Titration 500.478 2277.133 Amount Mvi, Adult No.4 with Vit 1006.133 K 10 ml Trace (Conc-1Ml/ Dose) 1 ml Potassium Acetate 40 meq Calcium Gluconate 1 gm Potassium Phosphate 10 mmol Magnesium Sulfate gm 1 gm In Amino Acid 4.25%-D10w 1,000 ml @ 98 mls/hr IV .BY DURATION [facility] Rx#: [id number] Potassium Acetate 20 meq 915.417 Sodium Acetate 20 meq Calcium Gluconate 1 gm Potassium Phosphate 10 mmol Magnesium Sulfate gm 1 gm In Amino Acid 4.25% -D10w 1,000 ml @ 65 mls/ hr IV .BY DURATION [facility] Rx #:[id number] Output: Gastric Drainage 50 1720 Urine 2450 1250 Other: Voiding Method Indwelling Catheter Indwelling Catheter # Bowel Movements 1 ABP, PAP, CO, CI - Last Documented Arterial Blood Pressure 106/68 - Labs CBC & Chem 7: 11/05/21 07:13 11/05/21 07:13 Labs: Abnormal Lab Results - Last 24 Hours (Table) 11/04/21 11/04/21 11/04/21 Range/Units 11:48 17:06 19:52 RBC (4.30-5.90) m/uL Hgb (13.0-17.5) gm/dL Hct (39.0-53.0) % RDW (11.5-15.5) % Plt Count (150-450) k/uL Lymphocytes # (1.0-4.8) k/uL Chloride (98-107) mmol/L BUN (9-20) mg/dL Glucose (74-99) mg/dL POC Glucose (mg/dL) 115 H 120 H 120 H (75-99) mg/dL Calcium (8.4-10.2) mg/dL 11/05/21 11/05/21 11/05/21 Range/Units 02:39 04:14 07:13 RBC (4.30-5.90) m/uL Hgb (13.0-17.5) gm/dL Hct (39.0-53.0) % RDW (11.5-15.5) % Plt Count (150-450) k/uL Lymphocytes # (1.0-4.8) k/uL Chloride 119 H (98-107) mmol/L BUN 40 H (9-20) mg/dL Glucose 127 H (74-99) mg/dL POC Glucose (mg/dL) 128 H 131 H (75-99) mg/dL Calcium 7.1 L (8.4-10.2) mg/dL 11/05/21 Range/Units 07:13 RBC 2.90 L (4.30-5.90) m/uL Hgb 7.7 L (13.0-17.5) gm/dL Hct 23.9 L (39.0-53.0) % RDW 15.9 H (11.5-15.5) % Plt Count 65 L D (150-450) k/uL Lymphocytes # 0.7 L (1.0-4.8) k/uL Chloride (98-107) mmol/L BUN (9-20) mg/dL Glucose (74-99) mg/dL POC Glucose (mg/dL) (75-99) mg/dL Calcium (8.4-10.2) mg/dL Microbiology - Last 24 Hours (Table) 10/30/21 09:37 Blood Culture - Preliminary Blood No Growth after 120 hours 10/30/21 09:31 Blood Culture - Preliminary Blood No Growth after 120 hours
--- NOTE | 2021-11-05 13:49 | CT ---
EXAMINATION TYPE: CT brain wo con DATE OF EXAM: 11/05/2021 COMPARISON: CT dated 10/29/2021 HISTORY: Recurrent Syncope CT DLP: 1143.4 mGycm Automated exposure control for dose reduction was used. TECHNIQUE: CT scan of the brain is performed without IV contrast administration. FINDINGS: Suspected mild bilateral cerebral white matter chronic microvascular ischemic changes. No acute intra cranial hemorrhage. No gross acute cortical infarct. No midline shift, herniation or ventriculectomy. Unremarkable lyle-white matter differentiation, basal cisterns, sella and CP angles. No gross space-o ccupying lesion, vasogenic edema or mass effect. NG tube is seen in place. Unremarkable orbits. Posterior parietal scalp swelling and fluid/edema, please correlate clinically. Clear visualized paranasal sinuses and mastoid air cells. Unremarkable calvarial bones. IMPRESSION: No acute intracranial abnormality or gross space-occupying lesion by this nonenhanced CT scan. Incide ntal findings as described above.
[2021-11-05 16:45] LABS: Glucose,Whole Blood 123 mg/dL (75-99)
[2021-11-05] MEDS: [UNRECOGNIZED DRUG - OTHER] IV SCH ×7 (19:52)
[2021-11-05 20:17] LABS: Glucose,Whole Blood 119 mg/dL (75-99)
[2021-11-06 00:53] LABS: Glucose,Whole Blood 139 mg/dL (75-99)
[2021-11-06] MEDS: DEXTROSE 10% IN WATER 500 ML IV SCH (02:00)
[2021-11-06 04:56] LABS: Glucose,Whole Blood 153 mg/dL (75-99)
[2021-11-06] MEDS: [UNRECOGNIZED DRUG - OTHER] IV SCH ×7 (05:53)
[2021-11-06] MEDS: POTASSIUM PHOSPHATE IV SCH ×13 (05:53→18:24)
[2021-11-06] MEDS: CALCIUM GLUCONATE IV SCH ×13 (05:53→18:24)
[2021-11-06] MEDS: POTASSIUM ACETATE IV SCH ×13 (05:53→18:24)
[2021-11-06 06:35] LABS: African American GFR (CKD) >90 (>60 ml/min/1.73 sqM); Anion Gap 2 mmol/L; Blood Urea Nitrogen 35 mg/dL (9-20); Calcium 7.5 mg/dL (8.4-10.2); Carbon Dioxide 22 mmol/L (22-30); Chloride 119 mmol/L (98-107); Glucose 107 mg/dL (74-99); Magnesium 2.7 mg/dL (1.6-2.3); Non-African American GFR(CKD) >90 (>60 ml/min/1.73 sqM); Phosphorus 3.6 mg/dL (2.5-4.5); Potassium 4.5 mmol/L (3.5-5.1); Sodium 143 mmol/L (137-145)
[2021-11-06 08:07] LABS: Anisocytosis Slight; HCT 27.1 % (39.0-53.0); HGB 8.1 gm/dL (13.0-17.5); Hypochromasia Marked; MCH 25.8 pg (25.0-35.0); MCHC 29.7 g/dL (31.0-37.0); MCV 86.7 fL (80.0-100.0); RBC 3.13 m/uL (4.30-5.90); RDW 16.2 % (11.5-15.5); WBC 6.9 k/uL (3.8-10.6)
[2021-11-06 08:10] LABS: Platelet Count 127 k/uL (150-450)
[2021-11-06 08:11] LABS: Glucose,Whole Blood 116 mg/dL (75-99)
[2021-11-06] MEDS: PANTOPRAZOLE 40 MG/10 ML VIAL IVP SCH ×2 (08:23→20:04)
[2021-11-06] MEDS: PIPERACILLIN-TAZOBACTAM 3.375 GM in SODIUM CHLORIDE 0.9% 100 ML IVPB SCH (08:24)
--- NOTE | 2021-11-06 08:25 | XR ---
EXAMINATION TYPE: XR chest 1V portable DATE OF EXAM: 11/06/2021 COMPARISON: X-ray dated 11/05/2021 HISTORY: Post surgical follow-up TECHNIQUE: Single frontal view of the chest is obtained. FINDINGS: NG tube is seen with the tip is likely below the diaphragm. A right central venous line with the tip within the superior aspect of the right atrium. Congested pulmonary vasculature with bilateral pleura l effusions, not significantly changed compared to the previous. Questionable pulmonary infiltration at the mid to lower lung zones, stable. Unchanged cardiomediastinal silhouette. Degenerative changes of the thoracic spine. IMPRESSION: No significant interval change compared to the previous x-ray.
--- NOTE | 2021-11-06 09:53 | P.CNNES ---
History of Present Illness Consult date: 11/05/21 Requesting physician: Anabelle Benavidez Reason for Consult: mental status change, encephalopathy History of Present Illness: Patient is a 51-year-old male, who has autistic spectrum disorder with intellectual impairment, lives in a prison, known to me from previous admission to the hospital. Patient came to the hospital on 10/29/2021 with altered mental status. He was brought in by EMS with multiple episodes of syn cope prior to arrival. He also had nausea vomiting and diarrhea. Patient was hypotensive in the ER. Patient underwent exploratory laparotomy and was diagnosed with ischemia of the lateral portion of the stomach and mild ischemia of the proximal jejunum, and underwent partial gastrectomy. Patient was in septic shock and has developed encephalopathy. Patient was extubated yesterday, but has been encephalopathic, not moving his extremities, or speaking as he usually does. Patient was noted to have lack of verbal communication and lack of extremity movement which is significantly different from baseline. This prompted neurology consultation. As per nursing report, patient at baseline can communicate well, usually likes to write. He likes 4-blank sheets of paper and a black pen, his favorite TV channel is 7. He likes to look through the calendars and read the paper. He likes everything in 4s. He takes pills whole in applesauce. He can wash his face with direction and dress himself and he can tie his shoes. He likes dinner at 5 to 5:30. He needs everything to be cut into bite size pieces. He is continent of urine and stool. He goes to bed about 8 to 8:30 and sleeps with a night light on. he uses a walker, but sometimes would pickup walker and walk. CT head revealed no acute intracranial abnormality or gross space occupying lesion. I personally reviewed computed tomography scan and agree with the findings. Patient's initial lactic acid was 7.5, now down to 1.6 on 10/30/2021. Patient went to OR and undergone exploratory laparotomy with partial gastrectomy and was intubated from 10/30/2021 until 11/04/2021. patient's most recent blood test shows WBC 7.5 hemoglobin 7.7 platelets 65. Electrolytes are normal, BUN 40, creatinine 1.06. His AST is mildly elevated 81/59 but normal ALT 47. Ammonia was mildly elevated 41. TSH is normal. Cortisol normal. Chest x-ray revealed correlate for pneumonia, congestive heart failure, possibly effusion and associated atelectasis versus edema. Review of Systems ROS unobtainable: due to mental status Past Medical History Past Medical History: CVA/TIA, Diabetes Mellitus, Hypertension Additional Past Medical History / Comment(s): Pt recently admitted to [facility] on 02/20/20 with R intrinsic hand muscle weakness/possible L vertebral artery stenosis/thrombocytopenia. Other hx: Diet controlled diabetes, autism, intellectual impairment History of Any Multi-Drug Resistant Organisms: None Reported Past Surgical History: No Surgical Hx Reported Additional Past Surgical History / Comment(s): BROTHER STATED NO KNOWN SX Past Anesthesia/Blood Transfusion Reactions: Unable to Obtain Additional Past Anesthesia/Blood Transfusion Reaction / Comment(s): NEVER HAD ANY SX Past Psychological History: No Psychological Hx Reported Smoking Status: Never smoker Past Alcohol Use History: None Reported Past Drug Use History: None Reported - Past Family History Father Family Medical History: Cancer Additional Family Medical History / Comment(s): COLON CANCER Mother Family Medical History: Cancer, Diabetes Mellitus, Hypertension Additional Family Medical History / Comment(s): OBESITY, FROM METASTATIC KINDEY CANCER Medications and Allergies Home Medications Medication Instructions Recorded Confirmed Type ARIPiprazole 15 mg PO BID@0700,199907/29/18 10/29/21 History Benztropine Mesylate [Cogentin] 0.5 mg PO TID@0700,1200,199907/29/18 10/29/21 History Citalopram Hydrobromide [CeleXA] 40 mg PO DAILY@0700 07/29/18 10/29/21 History Enalapril [Vasotec] 5 mg PO DAILY@0700 07/29/18 10/29/21 History LORazepam [Ativan] 1 mg PO TID@0700,1200,199907/29/18 10/29/21 History cloZAPine [Clozaril] 100 mg PO BID@0700,1600 02/20/20 10/29/21 History Aspirin EC [Ecotrin Low Dose] 81 mg PO DAILY@0700 07/31/21 10/29/21 History Atorvastatin Calcium [Lipitor] 10 mg PO HS@199907/31/21 10/29/21 History Carbidopa-Levodopa 10-100 mg 1 tab PO TID@0700,1600,199907/31/21 10/29/21 History [Sinemet 10-100 mg] Melatonin 10 mg PO HS@199907/31/21 10/29/21 History Oxybutynin Chloride [Ditropan] 5 mg PO TID@0700,1600,199907/31/21 10/29/21 History Pregabalin [Lyrica] 75 mg PO DAILY@0707/31/21 10/29/21 History Primidone [Mysoline] 50 mg PO DAILY@0707/31/21 10/29/21 History Cholecalciferol [Vitamin D3 (25 50 mcg PO DAILY@69910/29/21 10/29/21 History Mcg = 1000 Iu)] Hydrocortisone Cream 1 applic TOPICAL BID@699,199910/29/21 10/29/21 History [Hydrocortisone 2.5% Cream] LORazepam [Ativan] 2 mg PO DAILY PRN 10/29/21 10/29/21 History Nystatin [Nystop] 1 applic TOPICAL DAILY PRN 10/29/21 10/29/21 History Allergies Allergy/AdvReac Type Severity Reaction Status Date / Time No Known Allergies Allergy Verified 10/29/21 08:18 Physical Examination - Vital Signs Vital Signs: Vital Signs Temp Pulse Resp BP Pulse Ox 11/05/21 15:00 91 27 H 139/77 100 11/05/21 14:00 87 28 H 133/74 100 11/05/21 13:00 82 24 134/76 100 11/05/21 12:00 98.9 F 86 29 H 128/73 100 11/05/21 11:00 85 29 H 133/83 99 11/05/21 10:00 65 24 128/71 97 11/05/21 09:00 88 26 H 134/69 97 11/05/21 08:00 99.5 F 90 22 127/70 97 11/05/21 07:00 87 22 135/72 96 11/05/21 06:00 96 30 H 132/71 96 11/05/21 05:00 90 30 H 125/73 97 11/05/21 04:00 98.1 F 90 25 H 127/74 96 11/05/21 03:00 93 20 96 11/05/21 02:00 94 25 H 97 11/05/21 01:00 92 32 H 97 11/05/21 00:00 98.0 F 95 30 H 97 11/04/21 23:06 94 31 H 98 11/04/21 23:00 93 37 H 97 11/04/21 22:00 93 40 H 97 11/04/21 21:00 94 34 H 97 11/04/21 20:00 98.5 F 96 33 H 97 11/04/21 19:00 99 36 H 115/69 97 11/04/21 18:00 99 36 H 115/69 97 11/04/21 17:00 100 34 H 115/69 98 11/04/21 16:00 101 H 30 H 115/69 97 Intake and Output 11/05/21 11/05/21 11/05/21 06:59 14:59 22:59 Intake Total 285 1467.133 Output Total 2055 460 Balance -1770 1007.133 Intake: IV 285 461 Dextrose 10% in Water 500 180 140 ml @ 20 mls/hr IV .[facility]H [facility] Rx#:[id number] Invasive Line 5 20 Invasive Line 6 40 Piperacillin-Tazobactam 3 100 .375 gm In Sodium Chloride 0.9% 100 ml @ 25 mls/hr IVPB Q8HR [facility] Rx# :[id number] Potassium Chloride 20 meq 200 In Water For Injection 1 100ml.bag @ 50 mls/hr IVPB Q2H [facility] Rx#: [id number] Pressure Bag 45 21 Intake, IV Titration 1006.133 Amount Mvi, Adult No.4 with Vit 1006.133 K 10 ml Trace (Conc-1Ml/ Dose) 1 ml Potassium Acetate 40 meq Calcium Gluconate 1 gm Potassium Phosphate 10 mmol Magnesium Sulfate gm 1 gm In Amino Acid 4.25%-D10w 1,000 ml @ 98 mls/hr IV .BY DURATION [facility] Rx#: [id number] Output: Gastric Drainage 1270 Urine 785 460 Other: Voiding Method Indwelling Catheter Indwelling Catheter Weight 93.6 kg Patient is a middle aged male, in no acute distress. Patient is off sedation. He has not received any pain medications. Patient is alert awake, but appears to have slow mentation. He appears encep halopathic. Patient only makes some vocal sounds, which is unintelligible. He could not name any object. Attention, concentration and fund of knowledge is limited even at baseline. On cranial examination, pupils are equal, round and reacting to light, visual barkley could not be tested. extraocular muscles are intact with no nystagmus. Face is symmetric, patient did not protrude his tongue and lower cranial nerves could not be tested. On muscle strength testing, patient appears generalized weak in all 4 limbs. He barely can move his arms or legs. Deep tendon reflexes ar1+ to 2+ in the arms and legs and plantars are downgoing. Sensory to could not be assessed . Cerebellar function could not be assessed. e and bulk of muscles normal. Gait could not be assessed. On general examination, there is no carotid bruit or murmur, S1-S2 audible. Abdomen is tense. Bowel sounds present. Patient has moderate peripheral edema. No rash. Results - Laboratory Findings CBC and BMP: 11/06/21 07:19 11/06/21 05:33 Abnormal Lab Findings: Abnormal Labs 10/29/21 10/29/21 10/29/21 01:32 01:32 01:32 WBC 11.5 H RBC Hgb 11.8 L Hct 37.3 L MCHC RDW Plt Count 143 L Neutrophils # 9.8 H Lymphocytes # Lymphocytes # (Manual) Metamyelocytes # (Man) Nucleated RBCs PT INR D-Dimer 1.82 H ABG pH ABG pCO2 ABG pO2 ABG HCO3 ABG Total CO2 ABG O2 Saturation Potassium Chloride Carbon Dioxide BUN 25 H Creatinine Glucose 119 H POC Glucose (mg/dL) Plasma Lactic Acid [place] Calcium Phosphorus 4.6 H Magnesium 2.7 H Total Bilirubin AST ALT Ammonia Total Protein Albumin Urine Protein Urine Blood Calcium Oxalate Crystal Urine Bacteria Hyaline Casts Urine Mucus Primidone Crossmatch 10/29/21 10/29/21 10/29/21 04:04 05:48 09:38 WBC RBC Hgb Hct MCHC RDW Plt Count Neutrophils # Lymphocytes # Lymphocytes # (Manual) Metamyelocytes # (Man) Nucleated RBCs PT INR D-Dimer ABG pH ABG pCO2 ABG pO2 ABG HCO3 ABG Total CO2 ABG O2 Saturation Potassium Chloride Carbon Dioxide BUN Creatinine Glucose POC Glucose (mg/dL) Plasma Lactic Acid [place] Calcium Phosphorus Magnesium Total Bilirubin AST ALT Ammonia 41 H Total Protein Albumin Urine Protein Trace H Urine Blood Trace H Calcium Oxalate Crystal Occasional H Urine Bacteria Rare H Hyaline Casts 13 H Urine Mucus Rare H Primidone 1.8 L Crossmatch 10/30/21 10/30/21 10/30/21 06:11 06:11 09:31 WBC RBC Hgb Hct MCHC 29.8 L RDW Plt Count Neutrophils # Lymphocytes # 0.4 L Lymphocytes # (Manual) Metamyelocytes # (Man) Nucleated RBCs PT INR D-Dimer ABG pH ABG pCO2 ABG pO2 ABG HCO3 ABG Total CO2 ABG O2 Saturation Potassium Chloride 114 H Carbon Dioxide 16 L BUN 35 H Creatinine 2.61 H Glucose 104 H POC Glucose (mg/dL) Plasma Lactic Acid [place] 7.5 H* Calcium Phosphorus 5.7 H Magnesium 2.6 H Total Bilirubin AST 88 H ALT Ammonia Total Protein 5.7 L Albumin 3.0 L Urine Protein Urine Blood Calcium Oxalate Crystal Urine Bacteria Hyaline Casts Urine Mucus Primidone Crossmatch 10/30/21 10/30/21 10/30/21 10:14 10:20 10:20 WBC RBC Hgb 11.7 L Hct MCHC 29.3 L RDW Plt Count Neutrophils # Lymphocytes # Lymphocytes # (Manual) Metamyelocytes # (Man) Nucleated RBCs PT 12.7 H INR 1.2 H D-Dimer ABG pH ABG pCO2 ABG pO2 ABG HCO3 ABG Total CO2 ABG O2 Saturation Potassium Chloride Carbon Dioxide BUN Creatinine Glucose POC Glucose (mg/dL) Plasma Lactic Acid [place] Calcium Phosphorus Magnesium Total Bilirubin AST ALT Ammonia Total Protein Albumin Urine Protein Urine Blood Calcium Oxalate Crystal Urine Bacteria Hyaline Casts Urine Mucus Primidone Crossmatch See Detail 10/30/21 10/30/21 10/30/21 10:20 16:27 17:33 WBC RBC Hgb Hct MCHC RDW Plt Count Neutrophils # Lymphocytes # Lymphocytes # (Manual) Metamyelocytes # (Man) Nucleated RBCs PT INR D-Dimer ABG pH 7.03 L* 7.23 L ABG pCO2 52 H ABG pO2 365 H 123 H ABG HCO3 14 L 15 L ABG Total CO2 15 L 16 L ABG O2 Saturation 99.2 H 98.2 H Potassium Chloride 117 H Carbon Dioxide 12 L BUN 39 H Creatinine 2.80 H Glucose POC Glucose (mg/dL) Plasma Lactic Acid [place] Calcium 8.3 L Phosphorus Magnesium Total Bilirubin AST 88 H ALT Ammonia Total Protein 4.6 L Albumin 2.4 L Urine Protein Urine Blood Calcium Oxalate Crystal Urine Bacteria Hyaline Casts Urine Mucus Primidone Crossmatch 03/02/22 03/02/22 03/02/22 17:35 18:55 20:50 WBC 1.7 L RBC 4.06 L Hgb 10.9 L Hct 34.4 L MCHC RDW Plt Count 89 L Neutrophils # Lymphocytes # Lymphocytes # (Manual) Metamyelocytes # (Man) Nucleated RBCs PT INR D-Dimer ABG pH ABG pCO2 ABG pO2 ABG HCO3 ABG Total CO2 ABG O2 Saturation Potassium Chloride Carbon Dioxide BUN Creatinine Glucose POC Glucose (mg/dL) Plasma Lactic Acid [place] 3.6 H* 3.8 H* Calcium Phosphorus Magnesium Total Bilirubin AST ALT Ammonia Total Protein Albumin Urine Protein Urine Blood Calcium Oxalate Crystal Urine Bacteria Hyaline Casts Urine Mucus Primidone Crossmatch 10/30/21 10/31/21 10/31/21 22:42 00:11 00:47 WBC 2.5 L RBC 4.13 L Hgb 10.9 L Hct 35.0 L MCHC RDW Plt Count 112 L Neutrophils # Lymphocytes # Lymphocytes # (Manual) Metamyelocytes # (Man) Nucleated RBCs PT INR D-Dimer ABG pH 7.15 L* ABG pCO2 ABG pO2 131 H ABG HCO3 12 L ABG Total CO2 15 L ABG O2 Saturation 98.0 H Potassium Chloride Carbon Dioxide BUN Creatinine Glucose POC Glucose (mg/dL) Plasma Lactic Acid [place] 3.7 H* Calcium Phosphorus Magnesium Total Bilirubin AST ALT Ammonia Total Protein Albumin Urine Protein Urine Blood Calcium Oxalate Crystal Urine Bacteria Hyaline Casts Urine Mucus Primidone Crossmatch 10/31/21 10/31/21 10/31/21 04:24 04:24 04:24 WBC 3.1 L RBC Hgb 12.0 L Hct 38.3 L MCHC RDW Plt Count 127 L Neutrophils # Lymphocytes # Lymphocytes # (Manual) 0.87 L Metamyelocytes # (Man) 0.06 H Nucleated RBCs 2 H PT INR D-Dimer ABG pH ABG pCO2 ABG pO2 ABG HCO3 ABG Total CO2 ABG O2 Saturation Potassium Chloride 123 H Carbon Dioxide 11 L BUN 44 H Creatinine 2.42 H Glucose POC Glucose (mg/dL) Plasma Lactic Acid [place] 3.5 H* Calcium 7.1 L Phosphorus Magnesium Total Bilirubin AST ALT Ammonia Total Protein Albumin Urine Protein Urine Blood Calcium Oxalate Crystal Urine Bacteria Hyaline Casts Urine Mucus Primidone Crossmatch 10/31/21 10/31/21 10/31/21 05:37 13:30 16:48 WBC RBC Hgb Hct MCHC RDW Plt Count Neutrophils # Lymphocytes # Lymphocytes # (Manual) Metamyelocytes # (Man) Nucleated RBCs PT INR D-Dimer ABG pH 7.27 L ABG pCO2 28 L ABG pO2 ABG HCO3 13 L ABG Total CO2 14 L ABG O2 Saturation Potassium Chloride Carbon Dioxide BUN Creatinine Glucose POC Glucose (mg/dL) Plasma Lactic Acid [place] 3.0 H* 2.5 H* Calcium Phosphorus Magnesium Total Bilirubin AST ALT Ammonia Total Protein Albumin Urine Protein Urine Blood Calcium Oxalate Crystal Urine Bacteria Hyaline Casts Urine Mucus Primidone Crossmatch 10/31/21 11/01/21 11/01/21 20:09 00:20 01:25 WBC RBC Hgb Hct MCHC RDW Plt Count Neutrophils # Lymphocytes # Lymphocytes # (Manual) Metamyelocytes # (Man) Nucleated RBCs PT INR D-Dimer ABG pH ABG pCO2 ABG pO2 ABG HCO3 ABG Total CO2 ABG O2 Saturation Potassium Chloride Carbon Dioxide BUN Creatinine Glucose POC Glucose (mg/dL) 36 L 51 L Plasma Lactic Acid [place] 2.1 H* Calcium Phosphorus Magnesium Total Bilirubin AST ALT Ammonia Total Protein Albumin Urine Protein Urine Blood Calcium Oxalate Crystal Urine Bacteria Hyaline Casts Urine Mucus Primidone Crossmatch 11/01/21 11/01/21 11/01/21 01:58 03:13 04:08 WBC RBC Hgb Hct MCHC RDW Plt Count Neutrophils # Lymphocytes # Lymphocytes # (Manual) Metamyelocytes # (Man) Nucleated RBCs PT INR D-Dimer ABG pH ABG pCO2 ABG pO2 ABG HCO3 ABG Total CO2 ABG O2 Saturation Potassium Chloride Carbon Dioxide BUN Creatinine Glucose POC Glucose (mg/dL) 112 H 66 L Plasma Lactic Acid [place] 2.1 H* Calcium Phosphorus Magnesium Total Bilirubin AST ALT Ammonia Total Protein Albumin Urine Protein Urine Blood Calcium Oxalate Crystal Urine Bacteria Hyaline Casts Urine Mucus Primidone Crossmatch 11/01/21 11/01/21 11/01/21 04:08 04:08 04:15 WBC RBC 3.57 L Hgb 9.7 L D Hct 29.9 L MCHC RDW 15.6 H Plt Count 79 L Neutrophils # Lymphocytes # Lymphocytes # (Manual) Metamyelocytes # (Man) Nucleated RBCs PT INR D-Dimer ABG pH ABG pCO2 ABG pO2 ABG HCO3 ABG Total CO2 ABG O2 Saturation Potassium Chloride 125 H Carbon Dioxide 11 L BUN 47 H Creatinine 2.18 H Glucose 59 L POC Glucose (mg/dL) 63 L Plasma Lactic Acid [place] Calcium 6.9 L Phosphorus Magnesium Total Bilirubin AST ALT Ammonia Total Protein Albumin Urine Protein Urine Blood Calcium Oxalate Crystal Urine Bacteria Hyaline Casts Urine Mucus Primidone Crossmatch 11/01/21 11/01/21 11/01/21 05:46 06:15 07:05 WBC RBC Hgb Hct MCHC RDW Plt Count Neutrophils # Lymphocytes # Lymphocytes # (Manual) Metamyelocytes # (Man) Nucleated RBCs PT INR D-Dimer ABG pH 7.29 L ABG pCO2 29 L ABG pO2 174 H ABG HCO3 14 L ABG Total CO2 15 L ABG O2 Saturation 98.8 H Potassium Chloride Carbon Dioxide BUN Creatinine Glucose POC Glucose (mg/dL) 60 L Plasma Lactic Acid [place] 2.1 H* Calcium Phosphorus Magnesium Total Bilirubin AST ALT Ammonia Total Protein Albumin Urine Protein Urine Blood Calcium Oxalate Crystal Urine Bacteria Hyaline Casts Urine Mucus Primidone Crossmatch 11/01/21 11/01/21 11/01/21 09:52 12:34 13:17 WBC RBC Hgb Hct MCHC RDW Plt Count Neutrophils # Lymphocytes # Lymphocytes # (Manual) Metamyelocytes # (Man) Nucleated RBCs PT INR D-Dimer ABG pH ABG pCO2 ABG pO2 ABG HCO3 ABG Total CO2 ABG O2 Saturation Potassium Chloride Carbon Dioxide BUN Creatinine Glucose POC Glucose (mg/dL) 67 L 67 L 116 H Plasma Lactic Acid [place] Calcium Phosphorus Magnesium Total Bilirubin AST ALT Ammonia Total Protein Albumin Urine Protein Urine Blood Calcium Oxalate Crystal Urine Bacteria Hyaline Casts Urine Mucus Primidone Crossmatch 11/01/21 11/01/21 11/02/21 14:47 19:54 03:55 WBC RBC 3.21 L Hgb 8.6 L Hct 26.8 L MCHC RDW Plt Count 46 L Neutrophils # Lymphocytes # Lymphocytes # (Manual) 0.18 L Metamyelocytes # (Man) Nucleated RBCs PT INR D-Dimer ABG pH ABG pCO2 ABG pO2 ABG HCO3 ABG Total CO2 ABG O2 Saturation Potassium Chloride Carbon Dioxide BUN Creatinine Glucose POC Glucose (mg/dL) 101 H 65 L Plasma Lactic Acid [place] Calcium Phosphorus Magnesium Total Bilirubin AST ALT Ammonia Total Protein Albumin Urine Protein Urine Blood Calcium Oxalate Crystal Urine Bacteria Hyaline Casts Urine Mucus Primidone Crossmatch 11/02/21 11/02/21 11/02/21 03:55 04:04 05:52 WBC RBC Hgb Hct MCHC RDW Plt Count Neutrophils # Lymphocytes # Lymphocytes # (Manual) Metamyelocytes # (Man) Nucleated RBCs PT INR D-Dimer ABG pH 7.32 L ABG pCO2 31 L ABG pO2 184 H ABG HCO3 16 L ABG Total CO2 17 L ABG O2 Saturation 98.8 H Potassium Chloride 124 H Carbon Dioxide 15 L BUN 41 H Creatinine 1.39 H Glucose 101 H POC Glucose (mg/dL) 102 H Plasma Lactic Acid [place] Calcium 7.2 L Phosphorus Magnesium Total Bilirubin 1.7 H AST 145 H ALT 59 H Ammonia Total Protein 3.2 L Albumin 1.5 L Urine Protein Urine Blood Calcium Oxalate Crystal Urine Bacteria Hyaline Casts Urine Mucus Primidone Crossmatch 11/02/21 11/02/21 11/03/21 05:54 08:41 04:00 WBC RBC Hgb Hct MCHC RDW Plt Count Neutrophils # Lymphocytes # Lymphocytes # (Manual) Metamyelocytes # (Man) Nucleated RBCs PT INR D-Dimer ABG pH ABG pCO2 ABG pO2 ABG HCO3 ABG Total CO2 ABG O2 Saturation Potassium Chloride 121 H Carbon Dioxide 16 L BUN 37 H Creatinine 1.44 H Glucose POC Glucose (mg/dL) 106 H 102 H Plasma Lactic Acid [place] Calcium 7.2 L Phosphorus Magnesium Total Bilirubin 2.4 H AST 104 H ALT 52 H Ammonia Total Protein 3.5 L Albumin 1.6 L Urine Protein Urine Blood Calcium Oxalate Crystal Urine Bacteria Hyaline Casts Urine Mucus Primidone Crossmatch 11/03/21 11/03/21 11/03/21 05:30 05:33 08:12 WBC RBC 3.02 L Hgb 8.2 L Hct 24.9 L MCHC RDW Plt Count 42 L Neutrophils # Lymphocytes # 0.4 L Lymphocytes # (Manual) Metamyelocytes # (Man) Nucleated RBCs PT INR D-Dimer ABG pH ABG pCO2 32 L ABG pO2 119 H ABG HCO3 19 L ABG Total CO2 ABG O2 Saturation 98.6 H Potassium Chloride Carbon Dioxide BUN Creatinine Glucose POC Glucose (mg/dL) 100 H Plasma Lactic Acid [place] Calcium Phosphorus Magnesium Total Bilirubin AST ALT Ammonia Total Protein Albumin Urine Protein Urine Blood Calcium Oxalate Crystal Urine Bacteria Hyaline Casts Urine Mucus Primidone Crossmatch 11/03/21 11/04/21 11/04/21 23:53 05:45 07:30 WBC RBC Hgb Hct MCHC RDW Plt Count Neutrophils # Lymphocytes # Lymphocytes # (Manual) Metamyelocytes # (Man) Nucleated RBCs PT INR D-Dimer ABG pH ABG pCO2 29 L ABG pO2 112 H ABG HCO3 20 L ABG Total CO2 ABG O2 Saturation 97.9 H Potassium 3.2 L Chloride 120 H Carbon Dioxide 20 L BUN 45 H Creatinine 1.26 H Glucose 102 H POC Glucose (mg/dL) 100 H Plasma Lactic Acid [place] Calcium 7.0 L Phosphorus Magnesium Total Bilirubin 3.1 H AST 81 H ALT Ammonia Total Protein 3.9 L Albumin 1.6 L Urine Protein Urine Blood Calcium Oxalate Crystal Urine Bacteria Hyaline Casts Urine Mucus Primidone Crossmatch 11/04/21 11/04/21 11/04/21 11:48 17:06 19:52 WBC RBC Hgb Hct MCHC RDW Plt Count Neutrophils # Lymphocytes # Lymphocytes # (Manual) Metamyelocytes # (Man) Nucleated RBCs PT INR D-Dimer ABG pH ABG pCO2 ABG pO2 ABG HCO3 ABG Total CO2 ABG O2 Saturation Potassium Chloride Carbon Dioxide BUN Creatinine Glucose POC Glucose (mg/dL) 115 H 120 H 120 H Plasma Lactic Acid [place] Calcium Phosphorus Magnesium Total Bilirubin AST ALT Ammonia Total Protein Albumin Urine Protein Urine Blood Calcium Oxalate Crystal Urine Bacteria Hyaline Casts Urine Mucus Primidone Crossmatch 11/05/21 11/05/21 11/05/21 02:39 04:14 07:13 WBC RBC Hgb Hct MCHC RDW Plt Count Neutrophils # Lymphocytes # Lymphocytes # (Manual) Metamyelocytes # (Man) Nucleated RBCs PT INR D-Dimer ABG pH ABG pCO2 ABG pO2 ABG HCO3 ABG Total CO2 ABG O2 Saturation Potassium Chloride 119 H Carbon Dioxide BUN 40 H Creatinine Glucose 127 H POC Glucose (mg/dL) 128 H 131 H Plasma Lactic Acid [place] Calcium 7.1 L Phosphorus Magnesium Total Bilirubin AST ALT Ammonia Total Protein Albumin Urine Protein Urine Blood Calcium Oxalate Crystal Urine Bacteria Hyaline Casts Urine Mucus Primidone Crossmatch 11/05/21 11/05/21 07:13 11:32 WBC RBC 2.90 L Hgb 7.7 L Hct 23.9 L MCHC RDW 15.9 H Plt Count 65 L D Neutrophils # Lymphocytes # 0.7 L Lymphocytes # (Manual) Metamyelocytes # (Man) Nucleated RBCs PT INR D-Dimer ABG pH ABG pCO2 ABG pO2 ABG HCO3 ABG Total CO2 ABG O2 Saturation Potassium Chloride Carbon Dioxide BUN Creatinine Glucose POC Glucose (mg/dL) 140 H Plasma Lactic Acid [place] Calcium Phosphorus Magnesium Total Bilirubin AST ALT Ammonia Total Protein Albumin Urine Protein Urine Blood Calcium Oxalate Crystal Urine Bacteria Hyaline Casts Urine Mucus Primidone Crossmatch Assessment and Plan Assessment: * Altered mental status, likely due to toxic metabolic encephalopathy. * Generalized weakness, possible due to encephalopathy. Patient's reflexes are present, no evidence of polyneuropathy. No definitive evidence of myelopathy. 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 * Status post septic shock. * Status post acute kidney injury, improved * Episode of hypoglycemia 36 mg/dL) on 11/01/2021 At 12:20 AM. * Diabetes * Hypertension * Developmental delay, autism and intellectual impairment. Plan: * Patient's altered mental status is likely due to toxic metabolic encephalopathy, which hopefully will improve with time. * Computed tomography scan of the head showed no acute process. We will continue to observe. * We will check EEG to rule out any epileptiform activity and confirm encepha lopathy. * Repeat ammonia. We will check B12, folate. TSH is normal. * Avoid any episodes of hypoglycemia. * We will continue to follow. * Thank you for the consult.
[2021-11-06] MEDS ORDERED: FUROSEMIDE 10 MG/ML 4 ML VIAL IV STA (10:01)
--- NOTE | 2021-11-06 10:06 | P.PN ---
Subjective Progress Note Date: 11/06/21 Principal diagnosis: Respiratory failure. On 11/01/2021, the patient remains intubated on a mechanical ventilator. The patient's condition remains critical and the patient developed septic shock and multisystem organ failure due to GI complications/acute abdomen. The patient is post partial gastrectomy and the patient is postop day #2. On today's evaluation, the patient remains on a mechanical ventilator and the patient is still sedated with propofol. Propofol residing at 50 mcg/kg per minute. The patient is quite stiff is a mechanical ventilator and the patient is an assist- control at the rate of 28 with a tidal volume of 450, FiO2 60% with a PEEP of 5. The patient has a pH of 7.3 and I attribute to 29 and pO2 of 174. Chest x-ray showing development of a left lower lobe pulmonary infiltrates/atelectasis/effusion. ET tube was in a good location. NG tube is a lso has a good location. Meanwhile, the patient continues to be aggressively resuscitated IV fluids. Overall fluid balance over the past 24 hours has been +5.5 L the patient received several fluid boluses. The patient has dropped the lactic acid level down to 0.1. Norepinephrine infusion is also being weaned down to 0.4 mg/kg per minute and vasopressin is at 0.03 units per minute. As such, there has been some improvement in the pressors requirements nontender the patient norepinephrine infusion was as high as 1 mcg/kg per minute. Meanwhile, the patient is developing episodes of hypoglycemia. Blood sugar is at 151. Currently he is on D5 minimal white discharge in the D10. We'll also consider possibility of starting the patient on TPN for nutritional support special with ongoing episodes of hypoglycemia. The patient is afebrile. The white second attempt 0.4 with a hemoglobin of 9.7 and a platelet count of 79 sodium is at 144 with a potassium of 4.4, serum bicarbonate of 11 degenerative 47 with a creatinine of 2.1. Cultures of been all negative thus far. Baseline serum cristhian isol level at 23. TSH 00.8. NG tube is in place and output is minimal and there is no signs of any upper GI bleeding at this point in time. Surgical wound site is dry clean and intact. 11/02/2021, I'm seeing the patient postop day #3. The patient seems to be more stable compared to yesterday. Noted the patient had an extensive surgery which included a partial gastrectomy. Postop, the patient developed hypotension/shock/multisystem organ failure. He has a more stable condition on today's evaluation. He is on assist-control mode rate of 28, tidal volume of 450, FiO2 of 30% and a PEEP of 5. The blood gas showed a pH of 7.32 with a pCO2 of 31 and pO2 of 184. 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 Chest x-ray showing pulmonary vascular congestion and some edema in addition to development of a left-sided pleural effusion. ET tube remains in a good location. Despite his fluid overload, the patient's is oxygenating adequately. Input output balance is +5.5 L over the past 24 hours. The NG tube output has been 500 mL of gastric material over the past 12 hours. The patient also on TPN running at 30 mL an hour. Bowel sounds are absent. Surgical wound sites are clean and intact. Patient has adequate pulses in all 4 extremities. Urine output is adequate and the creatinine is down to 1.39 with a BUN of 41 and a sodium level of 142. The patient is afebrile. The patient is hemodynamically stable. The patient is also off the D10 infusion. No further episodes of hypoglycemia this point in time. 11/03/2021, the patient is postop day #4. Hemodynamically stable on no pre ssors. He remains on a mechanical ventilator. Propofol was discontinued yesterday. The patient is grimacing to painful stimulation. He is not following commands yet. He is opening up his eyes. I think there is some neurologic recovery although the patient may still be encephalopathic due to sh ock. In the rate, the patient remains nothing by mouth. The NG tube is in place and the output has been in the order of 800 mL over the past 24 hours. Hypoactive bowel sounds. No bowel movement activity or flatus yet. Input output balance is -1.8 L. The patient remains on TPN for nutritional support rate of 65 mL an hour. In view of underlying episodes of hypoglycemia, the patient was also placed on D10 at the rate of 20 mL an hour. Blood sugars are still lower and soft. The patient is producing adequate amount of urine output. Creatinine is at 1.44 with BUN of 37. IV fluids was cut down to KVO. Lasix was given yesterday and another dose of Lasix will be given today. He will be given 4 mg IV push 1. Chest x-rays done today shows a left-sided pleural effusion. ET tube is in a good location. OG tube is in a good location. No other acute abnormalities. The patient remains on a mechanical ventilator today and an assist-control mode at the rate of 28 with a tidal volume of 450 and FiO2 of 30% with a PEEP of 5. The blood gases from today shows a pH of 7.39 with a pCO2 of 32 and pO2 of 119. Meanwhile, the patient has good weaning parameters. Unable to extubated the patient has not had adequate level of alertness. His weaning parameters seem to be good and should be able to tolerate a spontaneous breathing trial without any issues. Progress note dated 11/04/2021. This is a 51-year-old male, who was admitted to the hospital on October 29. The patient came in with syncope, nausea vomiting, and low blood pressure. The patient came to the intensive care unit, on October 30. He was intubated on that same day, having had a partial gastrectomy. Today's postop day #5. The patient is a DO NOT RESUSCITATE patient. He remains on mechanical ventilator. He is on the volume assist control mode, rate 28, tidal volume 450, FiO2 30%, PEEP of 5. Blood gases show pO2 112, pCO2 29, and pH is 7.45. The patient's on D10, at 20 mL an hour, and TPN at 65 mL an hour. The patient will get Lasix 60 mg IV push today. We will attempt a daily interruption of sedation, and a spontaneous breathing trial. Sodium 145, potassium 3.2, chlorides 120, CO2 20, anion gap 5, BUN 45, and creatinine 1.26. There was no CBC today. Albumin is 1.6. Microbiology is negative. Chest x-ray shows stable bilateral consolidations and small effusions. Weaning parameters today, were reasonable. The rapid shallow breathing index was 72. He did have a cuff leak. He will be given a trial of extubation. Progress note dated 11/05/2021. This is a 51-year-old male, who is again seen in room 255. He was admitted to the hospital on October 29. He came in with syncope, nausea, vomiting, and low blood pressure. He came to the intensive care unit one day later on October 30. He was intubated on that same day, having had a partial gastrectomy. Today is postop day #6. Yesterday, he was on the ventilator. We did do a daily interruption of sedation, and worse able to extubate him yesterday. He is a DO NOT RESUSCITATE patient. Currently, he's on 5 L nasal cannula. He's getting D1 0 at 20 mL an hour, TPN is running at 98 mL an hour, and saline at 10 mL an hour. White count 7.5, hemoglobin 7.7, hematocrit 23.9, and platelet count 65,000. Sodium 144, potassium 3.5, chlorides 119, CO2 23, anion gap 2, BUN 40, creatinine 1.06. Blood cultures, currently negative. Chest x-ray shows bilateral consolidations and small effusions. The chest x-ray is a bit worse today, likely because the patient is not on positive pressure ventilation. Progress note dated 11/06/2021. This is a 51-year-old male, again seen in room 255. He was admitted to the hospital on October 29. He came in with syncope, nausea, vomiting, and hypotension. The patient came to the intensive care unit, one day later on 10/30/2021. The patient underwent partial gastrectomy on that day, and is been intubated up until a few days ago. Today is postop day #7. The patient was extubated on November 04. The patient is currently on 2 L nasal cannula. He's getting TPN at 98 mL an hour, and saline at 10 mL an hour. In addition, he's on D10, at 20 mL an hour. The patient is very poorly responsive and basically just grunts. Likely his baseline mental status. White count 6.9, hemoglobin 8.1, hematocrit 27.1, and platelet count 127,000. Sodium 143, potassium 4.5, chloride 119, CO2 22, BUN 35, and creatinine 0.83. Magnesium is 2.7. Blood cultures are negative. Chest x-ray shows some diffuse bilateral infiltrates and bilateral pleural effusions, and the chest x-ray is largely unchanged. Objective - Vital Signs Vital signs: Vital Signs Temp 98.1 F 11/06/21 04:00 Pulse 85 11/06/21 07:00 Resp 32 H 11/06/21 07:00 BP 120/73 11/06/21 07:00 Pulse Ox 100 11/06/21 07:00 Intake & Output 11/05/21 11/06/21 11/06/21 18:59 06:59 18:59 Intake Total 3349.058 8867.633 23 Output Total 1480 2500 100 Balance 102.133 -1265.367 -77 Weight 92.6 kg Intake: IV 576 253 23 Dextrose 10% in Water 500 240 220 20 ml @ 20 mls/hr IV .Q24H [facility] Rx#:[id number] Piperacillin-Tazobactam 3 100 .375 gm In Sodium Chloride 0.9% 100 ml @ 25 mls/hr IVPB Q8HR [facility] Rx# :[id number] Potassium Chloride 20 meq 200 In Water For Injection 1 100ml.bag @ 50 mls/hr IVPB Q2H [facility] Rx#: [id number] Pressure Bag 36 33 3 Intake, IV Titration 1006.133 981.633 Amount Mvi, Adult No.4 with Vit 1006.133 K 10 ml Trace (Conc-1Ml/ Dose) 1 ml Potassium Acetate 40 meq Calcium Gluconate 1 gm Potassium Phosphate 10 mmol Magnesium Sulfate gm 1 gm In Amino Acid 4.25%-D10w 1,000 ml @ 98 mls/hr IV .BY DURATION [facility] Rx#: [id number] Potassium Acetate 40 meq 981.633 Calcium Gluconate 1 gm Potassium Phosphate 6 mmol Magnesium Sulfate gm 0.5 gm In Amino Acid 4. 25%-D10w 1,000 ml @ 98 mls/hr IV .BY DURATION [facility] Rx#:[id number] Output: Gastric Drainage 550 1600 Urine 930 900 100 Other: Voiding Method Indwelling Catheter Indwelling Catheter # Bowel Movements 1 1 ABP, PAP, CO, CI - Last Documented Arterial Blood Pressure 106/68 - Exam No acute distress, NG tube in place, with nasal cannula at 3 L/m. The patient basically just grunts. HEENT examination is grossly unremarkable. Neck supple. Full range of motion. No adenopathy thyromegaly or neck vein distention. Cardiovascular examination reveals regular rhythm rate. S1-S2 normal. No S3 or S4. No discernible murmur noted. Heart sounds are distant. Heart rate 85 bpm. Lungs reveal mild scattered rhonchi. No wheezes or crackles. Breath sounds equal bilaterally. Saturations are 97% on 3 L nasal cannula. Abdomen soft, without bowel sounds. Extremities are intact. No cyanosis or clubbing. Mild diffuse edema noted. Skin is without rash or lesion. Neurologic examination reveals a extubated white male, he does nod appropriately. Nasal cannula in place. NG tube in place. - Labs CBC & Chem 7: 11/06/21 07:19 11/06/21 05:33 Labs: Abnormal Lab Results - Last 24 Hours (Table) 11/05/21 11/05/21 11/05/21 Range/Units 11:32 16:43 20:16 RBC (4.30-5.90) m/uL Hgb (13.0-17.5) gm/dL Hct (39.0-53.0) % MCHC (31.0-37.0) g/dL RDW (11.5-15.5) % Plt Count (150-450) k/uL Chloride (98-107) mmol/L BUN (9-20) mg/dL Glucose (74-99) mg/dL POC Glucose (mg/dL) 140 H 123 H 119 H (75-99) mg/dL Calcium (8.4-10.2) mg/dL Magnesium (1.6-2.3) mg/dL 11/06/21 11/06/21 11/06/21 Range/Units 00:51 04:55 05:33 RBC (4.30-5.90) m/uL Hgb (13.0-17.5) gm/dL Hct (39.0-53.0) % MCHC (31.0-37.0) g/dL RDW (11.5-15.5) % Plt Count (150-450) k/uL Chloride 119 H (98-107) mmol/L BUN 35 H (9-20) mg/dL Glucose 107 H (74-99) mg/dL POC Glucose (mg/dL) 139 H 153 H (75-99) mg/dL Calcium 7.5 L (8.4-10.2) mg/dL Magnesium 2.7 H (1.6-2.3) mg/dL 11/06/21 11/06/21 Range/Units 07:19 07:59 RBC 3.13 L (4.30-5.90) m/uL Hgb 8.1 L (13.0-17.5) gm/dL Hct 27.1 L (39.0-53.0) % MCHC 29.7 L (31.0-37.0) g/dL RDW 16.2 H (11.5-15.5) % Plt Count 127 L D (150-450) k/uL Chloride (98-107) mmol/L BUN (9-20) mg/dL Glucose (74-99) mg/dL POC Glucose (mg/dL) 116 H (75-99) mg/dL Calcium (8.4-10.2) mg/dL Magnesium (1.6-2.3) mg/dL Microbiology - Last 24 Hours (Table) 10/30/21 09:37 Blood Culture - Final Blood No Growth after 144 hours 10/30/21 09:31 Blood Culture - Final Blood No Growth after 144 hours Assessment and Plan Assessment: Postop day #7, status post partial gastrectomy. Routine postoperative ventilator management. Status post extubation from mechanical ventilation, 11/04/2021. Septic shock, post gastric surgery, requiring fluids and vasopressors. Acute hypoxemic respiratory failure, status post intubation on 10/30/2021. Acute lactic acidosis, resolved. Acute kidney injury. History of CVA. Diabetes mellitus. History of hypertension. Developmental delay and autism. Episodic hypoglycemia. Plan: Plan dated 11/04/2021. The patient had reasonable weaning parameters. The rapid shallow breathing index was less than 80. The patient be given a trial of extubation. The patient continues on all appropriate medications. The patient does get Lasix 60 mg IV push prior to extubation. Additional recommendations and suggestions are forthcoming. The patient is a DO NOT RESUSCITATE patient. Post extubation, BiPAP can be employed if necessary. Labs, x-rays, and medications are all reviewed. We will continue to follow make recommendations where appropriate. Plan dated 11/05/2021. The patient was extubated yesterday. The patient remains on D10, and also TPN at 90 mL an hour. I've asked the nurse to try to get the patient to do incentive spirometry. The NG tube remains in place. Chest x-ray, labs, and medications are reviewed. The patient is a DO NOT RESUSCITATE patient. Patient remains on Zosyn. The patient's also getting GI prophylaxis with Protonix. Plan dated 11/06/2021. The patient was extubated from mechanical ventilation on November 04. The patient remains on TPN at 98 mL an hour. D10 will be discontinued. The patient's on 2- 3 L of nasal cannula. Microbiologic data is negative. Chest x-ray is unchanged. Respiratory status is slightly improved. The patient will receive Lasix 80 mg once a day, IV push. Additional recommendations and suggestions are forthcoming. Prognosis is very guarded. The patient is getting GI prophylaxis. Time with Patient: Greater than 30
[2021-11-06 11:22] LABS: Glucose,Whole Blood 116 mg/dL (75-99)
--- NOTE | 2021-11-06 11:32 | P.PN ---
Subjective Progress Note Date: 11/06/21 CHIEF COMPLAINT: Abdominal pain HISTORY OF PRESENT ILLNESS: Patient is status post exploratory laparotomy with partial gastrectomy for ischemia of the lateral portion of the stomach and mild ischemia noted of the proximal jejunal. Postop day #7. Patient currently in the ICU. Patient is having a high output through his NG tube with 1600 mL output through the night. Patient did have a BM yesterday. Patient seen by neurology regarding his encephalopathy. Computed tomography scan of the brain was negative. He is on TPN for nutrition support. Patient is receiving IV Lasix for fluid overload. WBC 6.9 hemoglobin 8.1 platelets 127 creatinine 0.83 ammonia less than 9 Patient seen and examined with Dr. jay PHYSICAL EXAM: VITAL SIGNS: Reviewed. GENERAL: Well-developed in no acute distress. HEENT: No sclera icterus. Extraocular movements grossly intact. Moist buccal mucosa. Head is atraumatic, normocephalic. ABDOMEN: Soft. Nondistended. Nontender Incisional dressing clean dry and intact NEUROLOGIC: Awake ASSESSMENT: 1. Ischemia of the lateral portion of the stomach and mild ischemia of the proximal jejunum status post exploratory laparotomy and partial gastrectomy. 2. Septic shock 3. 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 Signing provider agrees with the documented findings, assessment, and plan of care. Objective - Vital Signs Vital signs: Vital Signs Temp 98.1 F 11/06/21 04:00 Pulse 85 11/06/21 07:00 Resp 32 H 11/06/21 07:00 BP 120/73 11/06/21 07:00 Pulse Ox 100 11/06/21 07:00 Intake & Output 11/05/21 11/06/21 11/06/21 18:59 06:59 18:59 Intake Total 1589.216 9003.633 23 Output Total 1480 2500 100 Balance 102.133 -1265.367 -77 Weight 92.6 kg Intake: IV 576 253 23 Dextrose 10% in Water 500 240 220 20 ml @ 20 mls/hr IV .Q24H [facility] Rx#:[id number] Piperacillin-Tazobactam 3 100 .375 gm In Sodium Chloride 0.9% 100 ml @ 25 mls/hr IVPB Q8HR [facility] Rx# :[id number] Potassium Chloride 20 meq 200 In Water For Injection 1 100ml.bag @ 50 mls/hr IVPB Q2H [facility] Rx#: [id number] Pressure Bag 36 33 3 Intake, IV Titration 1006.133 981.633 Amount Mvi, Adult No.4 with Vit 1006.133 K 10 ml Trace (Conc-1Ml/ Dose) 1 ml Potassium Acetate 40 meq Calcium Gluconate 1 gm Potassium Phosphate 10 mmol Magnesium Sulfate gm 1 gm In Amino Acid 4.25%-D10w 1,000 ml @ 98 mls/hr IV .BY DURATION [facility] Rx#: [id number] Potassium Acetate 40 meq 981.633 Calcium Gluconate 1 gm Potassium Phosphate 6 mmol Magnesium Sulfate gm 0.5 gm In Amino Acid 4. 25%-D10w 1,000 ml @ 98 mls/hr IV .BY DURATION [facility] Rx#:[id number] Output: Gastric Drainage 550 1600 Urine 930 900 100 Other: Voiding Method Indwelling Catheter Indwelling Catheter # Bowel Movements 1 1 ABP, PAP, CO, CI - Last Documented Arterial Blood Pressure 106/68 - Labs CBC & Chem 7: 11/06/21 07:19 11/06/21 05:33 Labs: Abnormal Lab Results - Last 24 Hours (Table) 11/05/21 11/05/21 11/05/21 Range/Units 11:32 16:43 20:16 RBC (4.30-5.90) m/uL Hgb (13.0-17.5) gm/dL Hct (39.0-53.0) % MCHC (31.0-37.0) g/dL RDW (11.5-15.5) % Plt Count (150-450) k/uL Chloride (98-107) mmol/L BUN (9-20) mg/dL Glucose (74-99) mg/dL POC Glucose (mg/dL) 140 H 123 H 119 H (75-99) mg/dL Calcium (8.4-10.2) mg/dL Magnesium (1.6-2.3) mg/dL 11/06/21 11/06/21 11/06/21 Range/Units 00:51 04:55 05:33 RBC (4.30-5.90) m/uL Hgb (13.0-17.5) gm/dL Hct (39.0-53.0) % MCHC (31.0-37.0) g/dL RDW (11.5-15.5) % Plt Count (150-450) k/uL Chloride 119 H (98-107) mmol/L BUN 35 H (9-20) mg/dL Glucose 107 H (74-99) mg/dL POC Glucose (mg/dL) 139 H 153 H (75-99) mg/dL Calcium 7.5 L (8.4-10.2) mg/dL Magnesium 2.7 H (1.6-2.3) mg/dL 11/06/21 11/06/21 11/06/21 Range/Units 07:19 07:59 11:20 RBC 3.13 L (4.30-5.90) m/uL Hgb 8.1 L (13.0-17.5) gm/dL Hct 27.1 L (39.0-53.0) % MCHC 29.7 L (31.0-37.0) g/dL RDW 16.2 H (11.5-15.5) % Plt Count 127 L D (150-450) k/uL Chloride (98-107) mmol/L BUN (9-20) mg/dL Glucose (74-99) mg/dL POC Glucose (mg/dL) 116 H 116 H (75-99) mg/dL Calcium (8.4-10.2) mg/dL Magnesium (1.6-2.3) mg/dL Microbiology - Last 24 Hours (Table) 10/30/21 09:37 Blood Culture - Final Blood No Growth after 144 hours 10/30/21 09:31 Blood Culture - Final Blood No Growth after 144 hours
[2021-11-06] MEDS: IOPAMIDOL CONTRAST (ORAL USE) VIAL PO PRN ×2 (12:48→14:01)
--- NOTE | 2021-11-06 13:40 | P.PN ---
Subjective Progress Note Date: 11/06/21 Patient was admitted for nausea vomiting diarrhea believed to have gastroenteritis. Patient continued to have vomiting and started having abdominal tenderness because of which CT of the abdomen was obtained which showed pneumatosis coli along with some gas in the venous system concern for ischemic bowel. Patient was started on Zosyn. Patient subsequently decompensated patient became hypotensive with BP of 60/40 transferred to ICU patient was given 3 L of boluses of IV fluid NG tube was placed which showed bloody output . Patient in septic shock and receiving norepinephrine at this time. Recent echo showed normal ejection fraction. Patient had CTA of the chest which was negative for pulmonary embolism patient creatinine has worsened and went up to 2.80 today from 1.14 yesterday and this is secondary to acute tubular necrosis from sepsis and septic shock. Patient does have lactic acidosi s, patient does have lactic acidosis with lactic acidosis 7.5. Patient will be given 1 L of IV fluids continue pressor support. he is intubated and sedated. 10/31/2021 Patient is started having urine output. Patient underwent a arthrotomy yesterday and found to have ischemia of the lateral portion of the stomach and ischemia of the proximal jejunum patient underwent partial gastrectomy. Patient is presently on that to pressors maximized on norepinephrine, patient is also on vasopressin receiving albumin, IV fluids started having minimal urine output patient was anuric last night. Patient's chloride is highly elevated leading to metabolic acidosis patient also has an anion gap metabolic acidosis from lactic acidosis which appears to be improving at this time patient's overall clinical condition is guarded and the prognosis is poor. Patient Y blood cell count went down in fact patient is neutropenic now. Patient is presently not receiving any nutrition at this time. 11/01/2021 Patient is seen in follow-up continues to be closely monitored in the ICU in critical condition. Multiple medical consultations including pulmonary sales communications manager, cardiology, surgery following closely. Patient is status post partial gastrectomy postop day #2. Patient continues on IV Zosyn along with normal saline at 75 ML per hour. Per nursing staff patient continues on Levophed along with vasopressin for pressor support. Patient not tolerating weaning very well to assess mentation. Patient continues on sedation of propofol and will continue. Chest x-ray today shows basilar atelectasis, may be associated effusion and to correlate to exclude pneumonia. Per nursing staff there has been minimal NG tube output and of note on the x-ray the distal tip of the NG tube is obscured although unable to fully see as there is overlying artifacts with the telemetry monitoring and the patient is rotated. Patient is also having hypoglycemic events and was started on dextrose. Surgery plans for TPN for nutritional support. Family at the bedside today and their questions and concerns were answered. 11/02/2021 Patient evaluated today in the ICU he is postoperative day #3 for partial gastrectomy, currently intubated with an FiO2 of 30% with a PEEP of 5. Current oxygen saturations are 99 to 100%. Blood pressures 119/61, respirations 28, heart rate 107, afebrile. Chest x-ray today shows a stable chest with pleural effusion unchanged, perihilar and basilar infiltrates persist. Per nurse about 500 mLs output from NG tube in the last 12 hours. Continues on IV lasix, TPN, IV zosyn. Pressor support and propfol are currently on hold. Blood pressures are maintaining 120s systolic, heart rate 113 sinus tachycardia, afebrile, respirations 27. Patient with indwelling catheter, urine is dark susana, per nurse no BM since surgery, bowels are absent left lower quadrant, hypoactive to the right quadrant. Labs today show white count 6, hemoglobin 8.6, sodium 142, potassium 3.9, chloride 124, CO2 15, BUN 41, creatinine 1.39, blood glucose in the 80s, calcium 7.2, total bili 1.7, AST 145, ALT 59. Patient is being followed closely by pulmonary, cardiology, and surgical services. 11/03/2021 Patient evaluated today and closely monitored in ICU remains in critical condition. Patient's been off sedation for 24 hours. He is currently spontaneous eye opening, eyes are tracking however he does not move his face, not following motor commands unable to wiggle fingers. Once patient is more a lert may tolerate extubation. He continues to be vented, Fi02 30% with a PEEP of 5 his current oxygen saturation 96%, blood pressure 112/74, heart rate sinus tachycardic in the low 100's, he has been afebrile. Patient has been in a negative fluid balance with -1.8 Liters in the last 24 hours and received 3 doses of IV lasix which is now discontinued. Bowel sounds are hypoactive, abdominal binder in place with dressings intact to midline incision, no bowel movements or passing gas as reported by RN. Creatinine slightly increased today to 1.44, BUN 37. No white count, hemoglobin stable at 8.2, platelets decreased to 40's for the last 2 days, heparin was discontinued, continues with SCD's. Liver enzymes stable from yesterday. Continues on D10 infusion, TPN, maintaining blood pressures off pressor support. Continues on IV zosyn. Chest xray today shows unchanged pleural effusion. Patient remains in the ICU followed closely by pulmonary, cardiology, and surgical services in critical condition. Code status was changed to DNR by family. 11/04/2021 Patient evaluated today in the intensive care unit, he is more alert than yesterday. Per RN patient had a large bowel movement today and bowels are hypoactive today in all quadrants. BM was a maroon color per nurse. Abdominal binder in place. Continues with rivas catheter with over 3L of urine output in the last 24 hours, still with peripheral edema. IV lasix 60 mg x1 was given today. NGT remains in place with only 50 mLs of output overnight. Patient remains off sedation, remains off pressor support. Blood pressure today 115/69, heart rate 106, low grade fever this morning 99.2 axillary, and patient was extubated mid morning is on a 15 L HF cannula. Chest xray this morning shows stable bilateral consolidation and pleural effusion. Remains on D10 gtt at 20 mLs per hour, TPN/Lipids, and IV zosyn. Patient also received potassium suppl ementation today. Followed closely by multiple consultations including cardiology, pulmonary, and surgery and remains in guarded condition. Labs reviewed: sodium 135, potassium 3.2, chloride 120, CO2 20, BUN 45, creat 1.26, blood glucose in the 110's, AST 81, ALT and alk phos have normalized. 11/05/2021 Patient is seen and evaluated in follow-up continues to be in the ICU under close monitoring. Patient was recently extubated and continues on 5 L high flow nasal cannula and oxygen saturations have been 97-100%. Multiple medical consultations including pulmonary sales communications manager and surgery following closely. Chest x-ray today shows removal of endotracheal tube along with NG tube and central venous catheter on the right remains in place with no evident pneumothorax and to correlate for pneumonia, congestive heart failure, possible effusions and associated atelectasis versus edema. Patient did receive a dose of IV Lasix yesterday. Neurology consulted and CT of the brain without contrast ordered to assess mentation which is currently pending. Patient is continued on D10 and water and maintaining blood sugars in the 120s and will continue current regimen. Hemoglobin is 7.7 today with no bleeding noted. Platelets on the lower side at 65 although improved from previous and will continue to monitor closely with repeat labs in the morning. Patient also continues on IV Zosyn and will continue at this time. 11/06/2021 Patient is seen in follow-up continues to be in the ICU with multiple medical consultations following. Patient was evaluated by neurology and EEG was ordered and pending. Patient underwent CT of the brain which showed no acute abnormality noted. Patient also had chest x-ray today which shows no significant interval change compared to yesterday with continued questionable pulmonary infiltration at the mid to lower lung zones and there is some congested pulmonary vasculature with bilateral pleural effusions. Patient had been receiving one-time doses of IV Lasix daily and will add scheduled 40 mg IV Lasix and recommend repeat labs and follow-up chest x-ray. Patient is tolerating 3 L high flow via nasal cannula and maintaining oxygen saturations above 97%. Patient continues with significant weakness and PT/OT therapy consulted to follow the patient daily. Patient noted to have increased output noted in the NG tube and general surgery following an plan is for CT abdomen with contrast this afternoon. Will await report. Continues to be nothing by mouth on TPN and will continue for now. Review of systems: Unable to obtain as patient is nonverbal and encephalopathic Active Medications Furosemide (Furosemide 10 Mg/Ml 4 Ml Vial) 40 mg IV DAILY [facility] Hydromorphone HCl (Hydromorphone 0.5 Mg/0.5 Ml Syringe) 0.5 mg IVP Q2HR PRN PRN Reason: Pain Fat Emulsion Intravenous (Lipids 20%) 500 mls @ 41.667 mls/hr IV Mo ROBERTO Last Admin: 11/04/21 12:37 Dose: 41.667 mls/hr Documented by: Potassium Acetate 40 meq/Calcium Gluconate 1 gm/Potassium Phosphate 6 mmol/Magnesium Sulfate 0.5 gm/Amino Acids/Dextrose 1,033 mls @ 98 mls/hr IV .BY DURATION ROBERTO Stop: 11/06/21 16:59 Last Admin: 11/06/21 05:53 Dose: 98 mls/hr Documented by: Parenteral Vitamin Supplement 10 ml/ Zinc/Copper/Manganese/Selenium 1 ml/ Potassium Acetate 40 meq/ Calcium Gluconate 1 gm/ Potassium Phosphate 6 mmol/ Magnesium Sulfate 0.5 gm/ Amino Acids/Dextrose 1,044 mls @ 98 mls/hr IV .BY DURATION [facility] Stop: 11/06/21 16:59 Potassium Acetate 30 meq/Calcium Gluconate 1 gm/Potassium Phosphate 6 mmol/Amino Acids/Dextrose 1,027 mls @ 98 mls/hr IV .BY DURATION [facility] Parenteral Vitamin Supplement 10 ml/ Zinc/Copper/Manganese/Selenium 1 ml/ Potas sium Acetate 30 meq/ Calcium Gluconate 1 gm/ Potassium Phosphate 6 mmol/ Amino Acids/Dextrose 1,038 mls @ 98 mls/hr IV .BY DURATION [facility] Iopamidol (Iopamidol Contrast (Oral Use) Vial) 30 ml PO Q60M PRN PRN Reason: CT Scan Stop: 11/07/21 11:13 Last Admin: 11/06/21 12:48 Dose: 30 ml Documented by: Miscellaneous Information (Potassium Replacement Protocol 1 Each Misc) 1 each MISCELLANE DAILY PRN; Protocol PRN Reason: Per Protocol Nystatin (Nystatin 100,000 Unit/Gm Powd 15 Gm) 1 applic TOPICAL DAILY PRN; Protocol PRN Reason: Rash Ondansetron HCl (Ondansetron 4 Mg/2 Ml Vial) 4 mg IVP Q8HR PRN PRN Reason: Nausea And Vomiting Last Admin: 10/30/21 09:30 Dose: 4 mg Documented by: Pantoprazole Sodium (Pantoprazole 40 Mg/10 Ml Vial) 40 mg IVP BID [facility] Last Admin: 11/06/21 08:23 Dose: 40 mg Documented by: PHYSICAL EXAMINATION: GENERAL: Patient is 51-year-old male who is autistic and mumbling although not making coherent words, alert with spontaneous eye tracking. Appears more alert today, brother at the bedside HEENT: Pupils are round and equally reacting to light. EOMI. No scleral icterus. No conjunctival pallor. Normocephalic, atraumatic. No pharyngeal erythema. No thyromegaly. Eyes are tracking. CARDIOVASCULAR: S1 and S2 muffled PULMONARY: Diminished breath sounds bilaterally with some scattered crackles and rhonchi noted ABDOMEN: Bowel sounds hypoactive in all quadrants today. MUSCULOSKELETAL: No joint swelling or deformity. EXTREMITIES: No cyanosis, clubbing, generalized peripheral edema noted. Right upper and lower extremity cool to the touch NEUROLOGICAL: Encephalopathic, unable to completely assess, not following commands SKIN: No rashes. Assessment: -Post operative day #7 partial gastrectomy for ischemic stomach and also had ischemic ileum. -Septic shock status postoperatively, improved -Elevated liver enzymes most probably due to hepatic congestion from fluid overload state, improved today and patient will continue on 40 mg IV lasix daily. -Anion gap metabolic acidosis secondary to lactic acidosis which improved, patient doesn't have non-anion gap, acidosis secondary to hyperchloremia -Hypokalemia, 4.5 today -Acute renal failure secondary to acute blood loss from septic shock, improving -Syncope with loss of consciousness, hypotensive secondary to above, blood pressures have stabilized off pressor support -History of CVA TIA -History diabetes mellitus type 2, uncontrolled at this time, now currently stable -History of hypertension, hypotensive on admission with a blood pressure in the 70s, holding off on antihypertensive medications. Patient is now maintaining blood pressures off pressor support. -History of autism -History of intellectual impairment -GI Prophylaxis Protonix -DVT Prophylaxis Subcu heparin -NO CODE Plan: Recommend to continue with ICU management and close monitoring. Patient has been weaned off sedation and extubated on 11/04/2021. Patient is encephalopathic and neurology evaluating the patient and following an EEG is ordered. CT of the brain showing no acute abnormality and patient is more alert today. Patient is highly autistic with intellectual impairment and does live at a snf in the outpatient setting. Case management and social work following as patient will likely need ECF for continued rehab as patient is extremely weak. Will await PT/OT therapy notes and will also need to discuss with guardian about treatment plan moving forward. Patient is currently maintained on 3 L high flow nasal cannula with oxygen saturations of 97-100%. Patient continues to be in critical condition with guarded prognosis. Patient continues off pressor support with stable blood pressures, and recommend to continue monitoring closely. Patient is NPO and currently receiving TPN and also recommend continue monitoring blood sugars closely as patient had episodes of hypoglycemia and will continue to monitor closely. Patient to continue with NG tube for now as patient had large amount of output and surgery following recommending to continue with this. Will repeat a.m. labs to monitor closely. Prognosis remains quite guarded and will continue to monitor closely. The impression and plan of care has been dictated by Rozina Nam, nurse practitioner as directed. Dr. John MD I have performed a history and examination and MDM of this patient, discussed the same with the dictator, and agree with the dictator's assessment and plan as written ,documented as a scribe. Based on total visit time, I have performed more than 50% of the visit. Total number of minutes spent on this visit, 20 minutes. Any additional findings or plans will be noted. Objective - Vital Signs Vital signs: Vital Signs Temp 98.1 F 11/06/21 04:00 Pulse 85 11/06/21 07:00 Resp 32 H 11/06/21 07:00 BP 120/73 11/06/21 07:00 Pulse Ox 100 11/06/21 07:00 Intake & Output 11/05/21 11/06/21 11/06/21 18:59 06:59 18:59 Intake Total 5985.693 6763.633 23 Output Total 1480 2500 100 Balance 102.133 -1265.367 -77 Weight 92.6 kg Intake: IV 576 253 23 Dextrose 10% in Water 500 240 220 20 ml @ 20 mls/hr IV .Q24H ROBERTO Rx#:[id number] Piperacillin-Tazobactam 3 100 .375 gm In Sodium Chloride 0.9% 100 ml @ 25 mls/hr IVPB Q8HR ROBERTO Rx# :[id number] Potassium Chloride 20 meq 200 In Water For Injection 1 100ml.bag @ 50 mls/hr IVPB Q2H ROBERTO Rx#: [id number] Pressure Bag 36 33 3 Intake, IV Titration 1006.133 981.633 Amount Mvi, Adult No.4 with Vit 1006.133 K 10 ml Trace (Conc-1Ml/ Dose) 1 ml Potassium Acetate 40 meq Calcium Gluconate 1 gm Potassium Phosphate 10 mmol Magnesium Sulfate gm 1 gm In Amino Acid 4.25%-D10w 1,000 ml @ 98 mls/hr IV .BY DURATION ROBERTO Rx#: [id number] Potassium Acetate 40 meq 981.633 Calcium Gluconate 1 gm Potassium Phosphate 6 mmol Magnesium Sulfate gm 0.5 gm In Amino Acid 4. 25%-D10w 1,000 ml @ 98 mls/hr IV .BY DURATION ROBERTO Rx#:[id number] Output: Gastric Drainage 550 1600 Urine 930 900 100 Other: Voiding Method Indwelling Catheter Indwelling Catheter # Bowel Movements 1 1 ABP, PAP, CO, CI - Last Documented Arterial Blood Pressure 106/68 - Labs CBC & Chem 7: 11/06/21 07:19 11/06/21 05:33 Labs: Abnormal Lab Results - Last 24 Hours (Table) 11/05/21 11/05/21 11/05/21 Range/Units 11:32 16:43 20:16 RBC (4.30-5.90) m/uL Hgb (13.0-17.5) gm/dL Hct (39.0-53.0) % MCHC (31.0-37.0) g/dL RDW (11.5-15.5) % Plt Count (150-450) k/uL Chloride (98-107) mmol/L BUN (9-20) mg/dL Glucose (74-99) mg/dL POC Glucose (mg/dL) 140 H 123 H 119 H (75-99) mg/dL Calcium (8.4-10.2) mg/dL Magnesium (1.6-2.3) mg/dL 11/06/21 11/06/21 11/06/21 Range/Units 00:51 04:55 05:33 RBC (4.30-5.90) m/uL Hgb (13.0-17.5) gm/dL Hct (39.0-53.0) % MCHC (31.0-37.0) g/dL RDW (11.5-15.5) % Plt Count (150-450) k/uL Chloride 119 H (98-107) mmol/L BUN 35 H (9-20) mg/dL Glucose 107 H (74-99) mg/dL POC Glucose (mg/dL) 139 H 153 H (75-99) mg/dL Calcium 7.5 L (8.4-10.2) mg/dL Magnesium 2.7 H (1.6-2.3) mg/dL 11/06/21 11/06/21 Range/Units 07:19 07:59 RBC 3.13 L (4.30-5.90) m/uL Hgb 8.1 L (13.0-17.5) gm/dL Hct 27.1 L (39.0-53.0) % MCHC 29.7 L (31.0-37.0) g/dL RDW 16.2 H (11.5-15.5) % Plt Count 127 L D (150-450) k/uL Chloride (98-107) mmol/L BUN (9-20) mg/dL Glucose (74-99) mg/dL POC Glucose (mg/dL) 116 H (75-99) mg/dL Calcium (8.4-10.2) mg/dL Magnesium (1.6-2.3) mg/dL Microbiology - Last 24 Hours (Table) 10/30/21 09:37 Blood Culture - Final Blood No Growth after 144 hours 10/30/21 09:31 Blood Culture - Final Blood No Growth after 144 hours
[2021-11-06] MEDS: HYDROmorphone 0.5 MG/0.5 ML SYRINGE IVP PRN (14:23)
--- NOTE | 2021-11-06 15:21 | CT ---
EXAMINATION TYPE: CT abdomen pelvis w con DATE OF EXAM: 11/06/2021 COMPARISON: CT dated 10/29/2021 HISTORY: Abdominal pain, high NG tube output. Recent surgery CT DLP: 1617.9 mGycm Automated exposure control for dose reduction was used. TECHNIQUE: Helical acquisition of images was performed from the lung bases through The pelvis. CONTRAST: Performed with Oral Contrast and with IV Contrast, patient injected with 100 mL of Isovue 300. FINDINGS: LUNG BASES: Bilateral basal pleural effusions and subsegmental pulmonary atelectasis demonstrating ai r bronchogram within. Associated infection cannot be excluded, please correlate clinically. LIVER/GB: 2.8 cm gallbladder stone. No gallbladder wall thickening or gross signs of acute cholecysti tis. Interval complete resolution of the previously seen intrahepatic portal venous gas. No definite hepatic focal lesion identified.. PANCREAS: No significant abnormality is seen. SPLEEN: Peripheral cortical defect versus artifact is seen at the inferior aspect of the spleen, unde rlying interval infarct cannot be excluded. ADRENALS: No significant abnormality is seen. KIDNEYS: No significant abnormality is seen. FREE AIR: No free air is visualized. RETROPERITONEAL ADENOPATHY: None visualized REPRODUCTIVE ORGANS: No significant abnormality is seen URINARY BLADDER: Zepeda catheter is seen within the urinary bladder. PELVIC ADENOPATHY: None visualized. OSSEOUS STRUCTURES: Degenerative changes of the lower thoracic and lower lumbar spine with fusion at L5-S1 level. BOWEL: NG tube is seen with the tip within the stomach. Resolution of the previously seen gastric pn eumatosis. Mild wall thickening of the stomach, nonspecific. Questionable minimal residual pneumatosi s of the second and third parts of the duodenum. Free flow of the ingested oral contrast down to the ileocecal junction. No evidence of contrast leak. Slightly dilated small bowel loops measuring up to 3.3 cm. No definite transition point. This may suggest element of ileus. Diffuse bowel wall thickenin g, nonspecific. Fluid-filled colon with thickened wall. This may suggest colitis, please correlate cl inically and with stool analysis results. Moderate amount of free abdominal and pelvic fluid. Periton eal fat stranding, nonspecific and probably related to postoperative changes. Peritonitis cannot be e xcluded. Anterior abdominal wall midline skin sheldon with anterior abdominal wall soft tissues fat s tranding. Subcutaneous fluid is seen along the anterior aspects of the upper thighs and along the bod y wall mainly in the pelvis. IMPRESSION: Postoperative changes as described above. Interval resolution of the previously seen gastric and smal l bowel pneumatosis as well as intrahepatic portal venous gas with suspected residual pneumatosis of the second and third parts of the duodenum as described above. The oral contrast can be seen passing down to the ileocecal junction without evidence of obstruction or leak. Diffuse wall thickening of the stomach and small bowel with mild dilatation of the small bowel withou t definite transition point which may suggest ileus. Fluid-filled colon with slightly thickened wall. This could be related to ileus however colitis cannot be excluded. Other interval changes and incide ntal findings as described above.
[2021-11-06 15:32] LABS: Vitamin B12 >2000.0 pg/mL (200.0-944.0)
[2021-11-06] MEDS ORDERED: POTASSIUM PHOSPHATE IV SCH ×6 (17:00)
[2021-11-06] MEDS ORDERED: POTASSIUM ACETATE IV SCH ×6 (17:00)
[2021-11-06] MEDS ORDERED: CALCIUM GLUCONATE IV SCH ×6 (17:00)
[2021-11-06] MEDS ORDERED: [UNRECOGNIZED DRUG - OTHER] IV SCH ×6 (17:00)
--- NOTE | 2021-11-06 17:00 | EEG ---
ELECTROENCEPHALOGRAM REPORT DATE OF SERVICE: 11/06/2021 PREAMBLE: This is a 51-year-old male who has a history of autistic disorder, has altered mental status and generalized weakness. This study is performed to evaluate for encephalopathy rule out seizures. EEG FINDINGS: This is a 21-channel digital EEG recorded with video component, utilizing 10/20 international system with referential and bipolar montages. Background consists of predominantly 4 to 6 hertz moderate to high amplitude theta activity seen in bihemispheric region. Background does not seem to be reactive to eye opening or closing. Frequent eye blink artifacts were seen. Photic stimulation was not performed. Different stages of sleep were not seen. No focal or generalized epileptiform activity was seen. IMPRESSION: This is an abnormal EEG due to background slowing of moderate degree. This is suggestive of generalized cerebral dysfunction as can be seen with toxic metabolic encephalopathy or due to diffuse structural brain abnormality. No epileptiform activity was seen. MMODL / IJN: [id number] /
[2021-11-06] MEDS: [UNRECOGNIZED DRUG - OTHER] IV SCH ×6 (18:24)
[2021-11-06 21:47] LABS: Glucose,Whole Blood 131 mg/dL (75-99)
[2021-11-07 00:06] LABS: Glucose,Whole Blood 162 mg/dL (75-99)
[2021-11-07 04:45] LABS: Glucose,Whole Blood 134 mg/dL (75-99)
[2021-11-07] MEDS: HYDROmorphone 0.5 MG/0.5 ML SYRINGE IVP PRN ×3 (04:56→20:52)
[2021-11-07 06:50] LABS: African American GFR (CKD) >90 (>60 ml/min/1.73 sqM); Anion Gap 4 mmol/L; Blood Urea Nitrogen 28 mg/dL (9-20); Calcium 7.7 mg/dL (8.4-10.2); Carbon Dioxide 24 mmol/L (22-30); Chloride 116 mmol/L (98-107); Glucose 139 mg/dL (74-99); Magnesium 2.4 mg/dL (1.6-2.3); Non-African American GFR(CKD) >90 (>60 ml/min/1.73 sqM); Phosphorus 3.6 mg/dL (2.5-4.5); Potassium 3.8 mmol/L (3.5-5.1); Sodium 144 mmol/L (137-145)
[2021-11-07 07:56] LABS: Glucose,Whole Blood 150 mg/dL (75-99)
--- NOTE | 2021-11-07 08:50 | P.PN ---
Subjective Progress Note Date: 11/06/21 Patient was seen for a follow-up. Patient's caregivers were present today. According to them, patient is answering only in "yes/no". His speech is not back to his baseline. He sometimes grunts. He is medically getting more sick, with fluid in the lungs. He has a sore throat. He is still not talking. Still very weak in the arms and legs. The caregivers have noted that he sometimes lifts his arm spontaneously, but not to the commands. Patient to undergo CT of abdomen and pelvis. Objective - Vital Signs Vital signs: Vital Signs Temp 98.3 F 11/07/21 04:00 Pulse 112 H 11/07/21 06:00 Resp 19 11/07/21 06:00 BP 137/73 11/07/21 06:00 Pulse Ox 96 11/07/21 06:00 Intake & Output 11/06/21 11/07/21 11/07/21 18:59 06:59 18:59 Intake Total 216 739 Output Total 3000 3040 Balance -2784 -2301 Weight 92.6 kg 88.4 kg Intake: IV 216 739 Dextrose 10% in Water 500 80 ml @ 20 mls/hr IV .Q24H ROBERTO Rx#:[id number] Piperacillin-Tazobactam 3 100 700 .375 gm In Sodium Chloride 0.9% 100 ml @ 25 mls/hr IVPB Q8HR ROBERTO Rx# :[id number] Pressure Bag 36 39 Output: Gastric Drainage 1900 Urine 3000 1140 Other: Voiding Method Indwelling Catheter Indwelling Catheter ABP, PAP, CO, CI - Last Documented Arterial Blood Pressure 106/68 - Exam Patient is alert and awake, appears encephalopathic. Patient only making some non-intelligible vocalization. Not able to name objects. Pupils are equal round and reacting, face is symmetric, mouth is dry. Abdomen appears somewhat distended. Patient not able to move his arms or hands. He is able to wiggle his feet/toes a little. Reflexes are 1+ to 2+ and plantars are downgoing. - Labs CBC & Chem 7: 11/06/21 07:19 11/07/21 05:30 Labs: Abnormal Lab Results - Last 24 Hours (Table) 11/06/21 11/06/21 11/06/21 Range/Units 10:17 11:20 21:45 Chloride (98-107) mmol/L BUN (9-20) mg/dL Glucose (74-99) mg/dL POC Glucose (mg/dL) 116 H 131 H (75-99) mg/dL Calcium (8.4-10.2) mg/dL Magnesium (1.6-2.3) mg/dL Vitamin B12 >2000.0 H (200.0-944.0) pg/mL 11/07/21 11/07/21 11/07/21 Range/Units 00:04 04:44 05:30 Chloride 116 H (98-107) mmol/L BUN 28 H (9-20) mg/dL Glucose 139 H (74-99) mg/dL POC Glucose (mg/dL) 162 H 134 H (75-99) mg/dL Calcium 7.7 L (8.4-10.2) mg/dL Magnesium 2.4 H (1.6-2.3) mg/dL Vitamin B12 (200.0-944.0) pg/mL 11/07/21 Range/Units 07:54 Chloride (98-107) mmol/L BUN (9-20) mg/dL Glucose (74-99) mg/dL POC Glucose (mg/dL) 150 H (75-99) mg/dL Calcium (8.4-10.2) mg/dL Magnesium (1.6-2.3) mg/dL Vitamin B12 (200.0-944.0) pg/mL Assessment and Plan Assessment: * Altered mental status, likely due to toxic metabolic encephalopathy. * Generalized weakness, possible due to encephalopathy. Patient's reflexes are present, no evidence of polyneuropathy. No definitive evidence of myelopathy. 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 * Status post septic shock. * Status post acute kidney injury, improved * Episode of hypoglycemia 36 mg/dL) on 11/01/2021 At 12:20 AM. * Diabetes * Hypertension * Developmental delay, autism and intellectual impairment. Plan: * Patient's altered mental status is likely due to toxic metabolic encephalopathy, which hopefully will improve with time. * EEG was performed today, which revealed moderate background slowing consistent with encephalopathy. No epileptiform activity was seen. * Computed tomography scan of the head showed no acute process. We will continue to observe. * Repeat ammonia is normal <9. B12 > 2000, folate 10.9. TSH is normal. * Avoid any episodes of hypoglycemia. * We will continue to follow. * Patient undergoing computed tomography scan of abdomen and pelvis. * Discussed with patient's caregivers.
[2021-11-07] MEDS: [UNRECOGNIZED DRUG - OTHER] IV SCH ×12 (08:54→21:40)
[2021-11-07] MEDS: POTASSIUM PHOSPHATE IV SCH ×12 (08:54→21:40)
[2021-11-07] MEDS: POTASSIUM ACETATE IV SCH ×12 (08:54→21:40)
[2021-11-07] MEDS: FUROSEMIDE 10 MG/ML 4 ML VIAL IV SCH (08:54)
[2021-11-07] MEDS: PANTOPRAZOLE 40 MG/10 ML VIAL IVP SCH ×2 (08:54→20:52)
[2021-11-07] MEDS: CALCIUM GLUCONATE IV SCH ×12 (08:54→21:40)
--- NOTE | 2021-11-07 08:56 | P.PN ---
Subjective Progress Note Date: 11/07/21 Principal diagnosis: Respiratory failure. On 11/01/2021, the patient remains intubated on a mechanical ventilator. The patient's condition remains critical and the patient developed septic shock and multisystem organ failure due to GI complications/acute abdomen. The patient is post partial gastrectomy and the patient is postop day #2. On today's evaluation, the patient remains on a mechanical ventilator and the patient is still sedated with propofol. Propofol residing at 50 mcg/kg per minute. The patient is quite stiff is a mechanical ventilator and the patient is an assist- control at the rate of 28 with a tidal volume of 450, FiO2 60% with a PEEP of 5. The patient has a pH of 7.3 and I attribute to 29 and pO2 of 174. Chest x-ray showing development of a left lower lobe pulmonary infiltrates/atelectasis/effusion. ET tube was in a good location. NG tube is a lso has a good location. Meanwhile, the patient continues to be aggressively resuscitated IV fluids. Overall fluid balance over the past 24 hours has been +5.5 L the patient received several fluid boluses. The patient has dropped the lactic acid level down to 0.1. Norepinephrine infusion is also being weaned down to 0.4 mg/kg per minute and vasopressin is at 0.03 units per minute. As such, there has been some improvement in the pressors requirements nontender the patient norepinephrine infusion was as high as 1 mcg/kg per minute. Meanwhile, the patient is developing episodes of hypoglycemia. Blood sugar is at 151. Currently he is on D5 minimal white discharge in the D10. We'll also consider possibility of starting the patient on TPN for nutritional support special with ongoing episodes of hypoglycemia. The patient is afebrile. The white second attempt 0.4 with a hemoglobin of 9.7 and a platelet count of 79 sodium is at 144 with a potassium of 4.4, serum bicarbonate of 11 degenerative 47 with a creatinine of 2.1. Cultures of been all negative thus far. Baseline serum cristhian isol level at 23. TSH 00.8. NG tube is in place and output is minimal and there is no signs of any upper GI bleeding at this point in time. Surgical wound site is dry clean and intact. 11/02/2021, I'm seeing the patient postop day #3. The patient seems to be more stable compared to yesterday. Noted the patient had an extensive surgery which included a partial gastrectomy. Postop, the patient developed hypotension/shock/multisystem organ failure. He has a more stable condition on today's evaluation. He is on assist-control mode rate of 28, tidal volume of 450, FiO2 of 30% and a PEEP of 5. The blood gas showed a pH of 7.32 with a pCO2 of 31 and pO2 of 184. Since community aide at 2 AM, the patient was also taken off the vasopressin drip and the patient was taken off the norepinephrine drip. Chest x-ray showing pulmonary vascular congestion and some edema in addition to development of a left-sided pleural effusion. ET tube remains in a good location. Despite his fluid overload, the patient's is oxygenating adequately. Input output balance is +5.5 L over the past 24 hours. The NG tube output has been 500 mL of gastric material over the past 12 hours. The patient also on TPN running at 30 mL an hour. Bowel sounds are absent. Surgical wound sites are clean and intact. Patient has adequate pulses in all 4 extremities. Urine output is adequate and the creatinine is down to 1.39 with a BUN of 41 and a sodium level of 142. The patient is afebrile. The patient is hemodynamically stable. The patient is also off the D10 infusion. No further episodes of hypoglycemia this point in time. 11/03/2021, the patient is postop day #4. Hemodynamically stable on no pre ssors. He remains on a mechanical ventilator. Propofol was discontinued yesterday. The patient is grimacing to painful stimulation. He is not following commands yet. He is opening up his eyes. I think there is some neurologic recovery although the patient may still be encephalopathic due to sh ock. In the rate, the patient remains nothing by mouth. The NG tube is in place and the output has been in the order of 800 mL over the past 24 hours. Hypoactive bowel sounds. No bowel movement activity or flatus yet. Input output balance is -1.8 L. The patient remains on TPN for nutritional support rate of 65 mL an hour. In view of underlying episodes of hypoglycemia, the patient was also placed on D10 at the rate of 20 mL an hour. Blood sugars are still lower and soft. The patient is producing adequate amount of urine output. Creatinine is at 1.44 with BUN of 37. IV fluids was cut down to KVO. Lasix was given yesterday and another dose of Lasix will be given today. He will be given 4 mg IV push 1. Chest x-rays done today shows a left-sided pleural effusion. ET tube is in a good location. OG tube is in a good location. No other acute abnormalities. The patient remains on a mechanical ventilator today and an assist-control mode at the rate of 28 with a tidal volume of 450 and FiO2 of 30% with a PEEP of 5. The blood gases from today shows a pH of 7.39 with a pCO2 of 32 and pO2 of 119. Meanwhile, the patient has good weaning parameters. Unable to extubated the patient has not had adequate level of alertness. His weaning parameters seem to be good and should be able to tolerate a spontaneous breathing trial without any issues. Progress note dated 11/04/2021. This is a 51-year-old male, who was admitted to the hospital on October 29. The patient came in with syncope, nausea vomiting, and low blood pressure. The patient came to the intensive care unit, on October 30. He was intubated on that same day, having had a partial gastrectomy. Today's postop day #5. The patient is a DO NOT RESUSCITATE patient. He remains on mechanical ventilator. He is on the volume assist control mode, rate 28, tidal volume 450, FiO2 30%, PEEP of 5. Blood gases show pO2 112, pCO2 29, and pH is 7.45. The patient's on D10, at 20 mL an hour, and TPN at 65 mL an hour. The patient will get Lasix 60 mg IV push today. We will attempt a daily interruption of sedation, and a spontaneous breathing trial. Sodium 145, potassium 3.2, chlorides 120, CO2 20, anion gap 5, BUN 45, and creatinine 1.26. There was no CBC today. Albumin is 1.6. Microbiology is negative. Chest x-ray shows stable bilateral consolidations and small effusions. Weaning parameters today, were reasonable. The rapid shallow breathing index was 72. He did have a cuff leak. He will be given a trial of extubation. Progress note dated 11/05/2021. This is a 51-year-old male, who is again seen in room 255. He was admitted to the hospital on October 29. He came in with syncope, nausea, vomiting, and low blood pressure. He came to the intensive care unit one day later on October 30. He was intubated on that same day, having had a partial gastrectomy. Today is postop day #6. Yesterday, he was on the ventilator. We did do a daily interruption of sedation, and worse able to extubate him yesterday. He is a DO NOT RESUSCITATE patient. Currently, he's on 5 L nasal cannula. He's getting D1 0 at 20 mL an hour, TPN is running at 98 mL an hour, and saline at 10 mL an hour. White count 7.5, hemoglobin 7.7, hematocrit 23.9, and platelet count 65,000. Sodium 144, potassium 3.5, chlorides 119, CO2 23, anion gap 2, BUN 40, creatinine 1.06. Blood cultures, currently negative. Chest x-ray shows bilateral consolidations and small effusions. The chest x-ray is a bit worse today, likely because the patient is not on positive pressure ventilation. Progress note dated 11/06/2021. This is a 51-year-old male, again seen in room 255. He was admitted to the hospital on October 29. He came in with syncope, nausea, vomiting, and hypotension. The patient came to the intensive care unit, one day later on 10/30/2021. The patient underwent partial gastrectomy on that day, and is been intubated up until a few days ago. Today is postop day #7. The patient was extubated on November 04. The patient is currently on 2 L nasal cannula. He's getting TPN at 98 mL an hour, and saline at 10 mL an hour. In addition, he's on D10, at 20 mL an hour. The patient is very poorly responsive and basically just grunts. Likely his baseline mental status. White count 6.9, hemoglobin 8.1, hematocrit 27.1, and platelet count 127,000. Sodium 143, potassium 4.5, chloride 119, CO2 22, BUN 35, and creatinine 0.83. Magnesium is 2.7. Blood cultures are negative. Chest x-ray shows some diffuse bilateral infiltrates and bilateral pleural effusions, and the chest x-ray is largely unchanged. Progress note dated 11/07/2021. Progress note dated 11/07/2021. 51-year-old male, again seen in room 255. He was admitted to the hospital on October 29. He came in initially with syncope, nausea, vomiting, and hypotension. The patient was brought to the intensive care unit on 10/30/2021. On that same day, he underwent partial gastrectomy. The patient was intubated up until a few days ago. Today's postop day #8. The patient was extubated on November 04. Currently, he's on 2 L nasal cannula. He is receiving TPN at 70 mL an hour, and saline at 10 mL an hour. Current laboratory data includes a sodium 144, potassium 3.8, chlorides 116, CO2 24, anion gap 4, BUN 28, creatinine 0.82. Glucose 139. CT of the abdomen and pelvis shows postoperative changes, with interval resolution of the previously seen gastric and small bowel pneumatosis, as well as intrahepatic portal venous gas. The oral contrast can be seen passing down to the ileocecal junction without evidence of obstruction or leak. There is diffuse wall thickening of the stomach and small bowel. Objective - Vital Signs Vital signs: Vital Signs Temp 98.3 F 11/07/21 04:00 Pulse 112 H 11/07/21 06:00 Resp 19 11/07/21 06:00 BP 137/73 11/07/21 06:00 Pulse Ox 96 11/07/21 06:00 Intake & Output 11/06/21 11/07/21 11/07/21 18:59 06:59 18:59 Intake Total 216 739 Output Total 3000 3040 Balance -2784 -2301 Weight 92.6 kg 88.4 kg Intake: IV 216 739 Dextrose 10% in Water 500 80 ml @ 20 mls/hr IV .Q24H ROBERTO Rx#:[id number] Piperacillin-Tazobactam 3 100 700 .375 gm In Sodium Chloride 0.9% 100 ml @ 25 mls/hr IVPB Q8HR [facility]ERTO Rx# :[id number] Pressure Bag 36 39 Output: Gastric Drainage 1900 Urine 3000 1140 Other: Voiding Method Indwelling Catheter Indwelling Catheter ABP, PAP, CO, CI - Last Documented Arterial Blood Pressure 106/68 - Exam No acute distress, NG tube in place, with nasal cannula at 2 L/m. The patient basically just grunts. HEENT examination is grossly unremarkable. Neck supple. Full range of motion. No adenopathy thyromegaly or neck vein distention. Cardiovascular examination reveals regular rhythm rate. S1-S2 normal. No S3 or S4. No discernible murmur noted. Heart sounds are distant. Heart rate 112 bpm. Lungs reveal mild scattered rhonchi. No wheezes or crackles. Breath sounds equal bilaterally. Saturations are 96% on 2 L nasal cannula. Abdomen soft, without bowel sounds. Extremities are intact. No cyanosis or clubbing. Mild diffuse edema noted. Skin is without rash or lesion. Neurologic examination reveals a extubated white male, he does nod ap propriately. Nasal cannula in place. NG tube in place. - Labs CBC & Chem 7: 11/06/21 07:19 11/07/21 05:30 Labs: Abnormal Lab Results - Last 24 Hours (Table) 11/06/21 11/06/21 11/06/21 Range/Units 10:17 11:20 21:45 Chloride (98-107) mmol/L BUN (9-20) mg/dL Glucose (74-99) mg/dL POC Glucose (mg/dL) 116 H 131 H (75-99) mg/dL Calcium (8.4-10.2) mg/dL Magnesium (1.6-2.3) mg/dL Vitamin B12 >2000.0 H (200.0-944.0) pg/mL 11/07/21 11/07/21 11/07/21 Range/Units 00:04 04:44 05:30 Chloride 116 H (98-107) mmol/L BUN 28 H (9-20) mg/dL Glucose 139 H (74-99) mg/dL POC Glucose (mg/dL) 162 H 134 H (75-99) mg/dL Calcium 7.7 L (8.4-10.2) mg/dL Magnesium 2.4 H (1.6-2.3) mg/dL Vitamin B12 (200.0-944.0) pg/mL 11/07/21 Range/Units 07:54 Chloride (98-107) mmol/L BUN (9-20) mg/dL Glucose (74-99) mg/dL POC Glucose (mg/dL) 150 H (75-99) mg/dL Calcium (8.4-10.2) mg/dL Magnesium (1.6-2.3) mg/dL Vitamin B12 (200.0-944.0) pg/mL Assessment and Plan Assessment: Postop day #8, status post partial gastrectomy. Routine postoperative ventilator management, S/P extubation from mechanical ventilation, 11/04/2021. Septic shock, post gastric surgery, requiring fluids and vasopressors. Acute hypoxemic respiratory failure, status post intubation on 10/30/2021. Acute lactic acidosis, resolved. Acute kidney injury. History of CVA. Diabetes mellitus. History of hypertension. Developmental delay and autism. Episodic hypoglycemia. Plan: Plan dated 11/04/2021. The patient had reasonable weaning parameters. The rapid shallow breathing index was less than 80. The patient be given a trial of extubation. The patient continues on all appropriate medications. The patient does get Lasix 60 mg IV push prior to extubation. Additional recommendations and suggestions are forthcoming. The patient is a DO NOT RESUSCITATE patient. Post extubation, BiPAP can be employed if necessary. Labs, x-rays, and medications are all reviewed. We will continue to follow make recommendations where appropriate. Plan dated 11/05/2021. The patient was extubated yesterday. The patient remains on D10, and also TPN at 90 mL an hour. I've asked the nurse to try to get the patient to do incentive spirometry. The NG tube remains in place. Chest x-ray, labs, and medications are reviewed. The patient is a DO NOT RESUSCITATE patient. Patient remains on Zosyn. The patient's also getting GI prophylaxis with Protonix. Plan dated 11/06/2021. The patient was extubated from mechanical ventilation on November 04. The patient remains on TPN at 98 mL an hour. D10 will be discontinued. The patient's on 2-3 L of nasal cannula. Microbiologic data is negative. Chest x-ray is unchanged. Respiratory status is slightly improved. The patient will receive Lasix 80 mg once a day, IV push. Additional recommendations and suggestions are forthcoming. Prognosis is very guarded. The patient is getting GI prophylaxis. Plan dated 11/07/2021. The patient was extubated from mechanical ventilation on November 04. He remains on TPN, and saline. The patient's mental status has not changed. CT of the abdomen and pelvis from November 06, is reviewed. The patient is still in my opinion too unstable to be transferred out of the intensive care unit. He is a DO NOT RESUSCITATE patient. The patient did receive Lasix IV push yesterday. No additional Lasix today. Labs, x-rays, and medications are reviewed. The patient remains on TPN. Blood cultures have remained negative. The patient's currently not on any antibiotics. Time with Patient: Greater than 30
[2021-11-07 09:12] LABS: Anisocytosis Slight; HGB 7.9 gm/dL (13.0-17.5); Hypochromasia Marked; MCH 26.5 pg (25.0-35.0); MCHC 31.7 g/dL (31.0-37.0); MCV 83.8 fL (80.0-100.0); Mean Platelet Volume 9.9; Platelet Count 209 k/uL (150-450); RBC 2.99 m/uL (4.30-5.90); WBC 8.4 k/uL (3.8-10.6)
--- NOTE | 2021-11-07 11:44 | CDI ---
Documentation Clarification Form Date: 11/07/2021 11:15:37 AM From: Yelena Thomas RN, CCDS Admit Date: 10/29/2021 04:45:00 AM Patient Name: Amanuel Monk Visit Number: [id number] Discharge Date: ATTENTION: The Clinical Documentation Specialists (CDI) and [facility] Coding Staff appreciate your assistance in clarifying documentation. Please respond to the clarification below the line at the bottom and electronically sign. The CDI & [facility] Coding staff will review the response and follow-up if needed. Please note: Queries are made part of the Legal Health Record. If you have any questions, please contact the author of this message via ITS. Dr. Rachel Vasquez The patient presented with episodes of syncope. Blood pressure on arrival was hypotensive in the 70s over 50s.dropped as low as 67/33.Initial assessment syncope due to dehydration. On 10/30/21 he was ruled in for septic shock due to ischemic bowel. Additional clarification regarding the etiology/cause of the clinical indicators is requested. History/Risk Factors: CVA, Diabetes Mellitus, Hypertension, Autism, Intellectual impairment Clinical Indicators: 51-year-old male admitted for nausea, vomiting, diarrhea believed to have gastroenteritis. 10/29 CT abdomen/pelvis: Extensive portal venous air. Extensive pneumatosis involving stomach and small bowel. Dilated small bowel and stomach is consistent with significant ileus. Gangrenous bowel and stomach should be considered. 10/29 vital sign: (02:15) 71/53 76 18 10/30 vital sign: (09:10) 72/42 122 44 97.2 (temporal) 10/29 WBC: 11.5 10/29 Lactic acid: 1.1, 10/30 Lactic acid 7.5 10/30 Blood cultures: No Growth after 144 hours Treatment: ICU/Telemetry monitoring Mechanical vent monitoring per pulmonary (10/30-11/04) .9 NS IV Bolus 1,000 MLS on 10/29 x4, on 10/30 x2 Levophed drip per orders 10/30-11/01 Zosyn 3,375 GM IVPB Q 8 HRS (10/30-11/06) 3 (15:37): Exploratory laparotomy, partial gastrectomy In your professional opinion, please clarify if these findings signify one of the following conditions: [ ] Sepsis POA [ ] Sepsis, Not POA [ ] Other, please specify [ ] Unable to determine SIRS Criteria: 2 or more of the following may indicate SIRS -Temperature < 96.8F (36C) or > 101.0F (38.3C) -Heart Rate > 90 bpm -Respiratory Rate > 20 breaths/min or PaCO2 < 32 mmHg -White Blood Cell Count > 12,000 or < 4,000 cells/mm3 or > 10% bands (Template Last Reviewed: October 2020) -Sepsis, present on admission possibly secondary to ischemia of the lateral portion of the stomach and mild ischemia of the proximal jejunum Dictated By: Rozina Nam Signed By: <Electronically signed by Rozina BUCHANAN> 11/07/21 1244 The impression and plan of care has been dictated by Rozina Nam, nurse practitioner as directed. Dr. John MD I have performed a history and examination and MDM of this patient, discussed the same with the dictator, and agree with the dictator's assessment and plan as written ,documented as a scribe.Based on total visit time, I have performed more than 50% of the visit.Total number of minutes spent on this visit, 20 minutes.Any additional findings or plans will be noted. JOHANN
--- NOTE | 2021-11-07 12:34 | P.PN ---
Subjective Progress Note Date: 11/07/21 CHIEF COMPLAINT: Abdominal pain HISTORY OF PRESENT ILLNESS: Patient is status post exploratory laparotomy with partial gastrectomy for ischemia of the lateral portion of the stomach and mild ischemia noted of the proximal jejunal. Postop day #8. Patient currently in the ICU. Patient continues to have high outputs are NG tube is 1450 reported through the night. Suspect slightly less than yesterday. Computed tomography scan abdomen and pelvis shows interval resolution of the previously gastric and small bowel pneumatosis as well as intrahepatic portal venous gas with suspected residual pneumatosis of the second and third part of the duodenum. The oral contrast can be seen passing down to the ileocecal junction without evidence of obstruction or leak. Diffuse wall thickening of the stomach and small bowel with mild dilatation of the small bowel with out a definite transition point which may suggest ileus. Fluid-filled colon with slightly thickened wall. This could be related to ileus however colitis cannot be excluded. Patient on TPN for nutrition support. He is still receiving IV Lasix and fluid overload. Afebrile. WBC is 8.4 hematoma 7.9 pounds 209 creatinine 0.82 last bowel movement on 11/06 Patient seen and examined with Dr. jay PHYSICAL EXAM: VITAL SIGNS: Reviewed. GENERAL: Well-developed in no acute distress. HEENT: No sclera icterus. Extraocular movements grossly intact. Moist buccal mucosa. Head is atraumatic, normocephalic. ABDOMEN: Soft. Nondistended. Nontender, Incision site clean dry and intact NEUROLOGIC: Awake. Patient still talking ASSESSMENT: 1. Ischemia of the lateral portion of the stomach and mild ischemia of the proximal jejunum status post exploratory laparotomy and partial gastrectomy. 2. Septic shock 3. Possible toxic metabolic encephalopathy 4. Postoperative ileus 5. Thrombocytopenia resolved PLAN: -Reglan added for postoperative ileus -Continue ICU management -Continue supportive care -Continue NG tube for decompression -Keep patient nothing by mouth -Continue antibiotics -Continue TPN for nutrition support -DVT prophylaxis per critical care service and GI prophylaxis Protonix -CODE STATUS DO NOT RESUSCITATE Physician Crossband Layer note has been reviewed by physician. Signing provider agrees with the documented findings, assessment, and plan of care. Objective - Vital Signs Vital signs: Vital Signs Temp 98.8 F 11/07/21 08:00 Pulse 83 11/07/21 10:00 Resp 19 11/07/21 10:00 BP 140/71 11/07/21 10:00 Pulse Ox 96 11/07/21 10:00 Intake & Output 11/06/21 11/07/21 11/07/21 18:59 06:59 18:59 Intake Total 216 739 9 Output Total 3000 3040 1200 Balance -8976 -0341 -5831 Weight 92.6 kg 88.4 kg Intake: IV 216 739 9 Dextrose 10% in Water 500 80 ml @ 20 mls/hr IV .Q24H [facility] Rx#:[id number] Piperacillin-Tazobactam 3 100 700 .375 gm In Sodium Chloride 0.9% 100 ml @ 25 mls/hr IVPB Q8HR [facility] Rx# :[id number] Pressure Bag 36 39 9 Output: Gastric Drainage 1900 Urine 3000 1140 1200 Other: Voiding Method Indwelling Catheter Indwelling Catheter Indwelling Catheter ABP, PAP, CO, CI - Last Documented Arterial Blood Pressure 106/68 - Labs CBC & Chem 7: 11/07/21 05:30 11/07/21 05:30 Labs: Abnormal Lab Results - Last 24 Hours (Table) 11/06/21 11/06/21 11/07/21 Range/Units 10:17 21:45 00:04 RBC (4.30-5.90) m/uL Hgb (13.0-17.5) gm/dL Hct (39.0-53.0) % RDW (11.5-15.5) % Chloride (98-107) mmol/L BUN (9-20) mg/dL Glucose (74-99) mg/dL POC Glucose (mg/dL) 131 H 162 H (75-99) mg/dL Calcium (8.4-10.2) mg/dL Magnesium (1.6-2.3) mg/dL Triglycerides (0.00-149.00) mg/dL Vitamin B12 >2000.0 H (200.0-944.0) pg/mL 11/07/21 11/07/21 11/07/21 Range/Units 04:44 05:30 05:30 RBC 2.99 L (4.30-5.90) m/uL Hgb 7.9 L (13.0-17.5) gm/dL Hct 25.0 L (39.0-53.0) % RDW 17.0 H (11.5-15.5) % Chloride 116 H (98-107) mmol/L BUN 28 H (9-20) mg/dL Glucose 139 H (74-99) mg/dL POC Glucose (mg/dL) 134 H (75-99) mg/dL Calcium 7.7 L (8.4-10.2) mg/dL Magnesium 2.4 H (1.6-2.3) mg/dL Triglycerides 256.00 H (0.00-149.00) mg/dL Vitamin B12 (200.0-944.0) pg/mL 11/07/21 Range/Units 07:54 RBC (4.30-5.90) m/uL Hgb (13.0-17.5) gm/dL Hct (39.0-53.0) % RDW (11.5-15.5) % Chloride (98-107) mmol/L BUN (9-20) mg/dL Glucose (74-99) mg/dL POC Glucose (mg/dL) 150 H (75-99) mg/dL Calcium (8.4-10.2) mg/dL Magnesium (1.6-2.3) mg/dL Triglycerides (0.00-149.00) mg/dL Vitamin B12 (200.0-944.0) pg/mL
[2021-11-07] MEDS ORDERED: ENOXAPARIN 40 MG/0.4 ML SYRINGE SQ STA (12:40)
--- NOTE | 2021-11-07 12:44 | P.PN ---
Subjective Progress Note Date: 11/07/21 Patient was admitted for nausea vomiting diarrhea believed to have gastroenteritis. Patient continued to have vomiting and started having abdominal tenderness because of which CT of the abdomen was obtained which showed pneumatosis coli along with some gas in the venous system concern for ischemic bowel. Patient was started on Zosyn. Patient subsequently decompensated patient became hypotensive with BP of 60/40 transferred to ICU patient was given 3 L of boluses of IV fluid NG tube was placed which showed bloody output . Patient in septic shock and receiving norepinephrine at this time. Recent echo showed normal ejection fraction. Patient had CTA of the chest which was negative for pulmonary embolism patient creatinine has worsened and went up to 2.80 today from 1.14 yesterday and this is secondary to acute tubular necrosis from sepsis and septic shock. Patient does have lactic acidosi s, patient does have lactic acidosis with lactic acidosis 7.5. Patient will be given 1 L of IV fluids continue pressor support. he is intubated and sedated. 10/31/2021 Patient is started having urine output. Patient underwent a arthrotomy yesterday and found to have ischemia of the lateral portion of the stomach and ischemia of the proximal jejunum patient underwent partial gastrectomy. Patient is presently on that to pressors maximized on norepinephrine, patient is also on vasopressin receiving albumin, IV fluids started having minimal urine output patient was anuric last night. Patient's chloride is highly elevated leading to metabolic acidosis patient also has an anion gap metabolic acidosis from lactic acidosis which appears to be improving at this time patient's overall clinical condition is guarded and the prognosis is poor. Patient Y blood cell count went down in fact patient is neutropenic now. Patient is presently not receiving any nutrition at this time. 11/01/2021 Patient is seen in follow-up continues to be closely monitored in the ICU in critical condition. Multiple medical consultations including pulmonary air/ocean export clerk, cardiology, surgery following closely. Patient is status post partial gastrectomy postop day #2. Patient continues on IV Zosyn along with normal saline at 75 ML per hour. Per nursing staff patient continues on Levophed along with vasopressin for pressor support. Patient not tolerating weaning very well to assess mentation. Patient continues on sedation of propofol and will continue. Chest x-ray today shows basilar atelectasis, may be associated effusion and to correlate to exclude pneumonia. Per nursing staff there has been minimal NG tube output and of note on the x-ray the distal tip of the NG tube is obscured although unable to fully see as there is overlying artifacts with the telemetry monitoring and the patient is rotated. Patient is also having hypoglycemic events and was started on dextrose. Surgery plans for TPN for nutritional support. Family at the bedside today and their questions and concerns were answered. 11/02/2021 Patient evaluated today in the ICU he is postoperative day #3 for partial gastrectomy, currently intubated with an FiO2 of 30% with a PEEP of 5. Current oxygen saturations are 99 to 100%. Blood pressures 119/61, respirations 28, heart rate 107, afebrile. Chest x-ray today shows a stable chest with pleural effusion unchanged, perihilar and basilar infiltrates persist. Per nurse about 500 mLs output from NG tube in the last 12 hours. Continues on IV lasix, TPN, IV zosyn. Pressor support and propfol are currently on hold. Blood pressures are maintaining 120s systolic, heart rate 113 sinus tachycardia, afebrile, respirations 27. Patient with indwelling catheter, urine is dark susana, per nurse no BM since surgery, bowels are absent left lower quadrant, hypoactive to the right quadrant. Labs today show white count 6, hemoglobin 8.6, sodium 142, potassium 3.9, chloride 124, CO2 15, BUN 41, creatinine 1.39, blood glucose in the 80s, calcium 7.2, total bili 1.7, AST 145, ALT 59. Patient is being followed closely by pulmonary, cardiology, and surgical services. 11/03/2021 Patient evaluated today and closely monitored in ICU remains in critical condition. Patient's been off sedation for 24 hours. He is currently spontaneous eye opening, eyes are tracking however he does not move his face, not following motor commands unable to wiggle fingers. Once patient is more a lert may tolerate extubation. He continues to be vented, Fi02 30% with a PEEP of 5 his current oxygen saturation 96%, blood pressure 112/74, heart rate sinus tachycardic in the low 100's, he has been afebrile. Patient has been in a negative fluid balance with -1.8 Liters in the last 24 hours and received 3 doses of IV lasix which is now discontinued. Bowel sounds are hypoactive, abdominal binder in place with dressings intact to midline incision, no bowel movements or passing gas as reported by RN. Creatinine slightly increased today to 1.44, BUN 37. No white count, hemoglobin stable at 8.2, platelets decreased to 40's for the last 2 days, heparin was discontinued, continues with SCD's. Liver enzymes stable from yesterday. Continues on D10 infusion, TPN, maintaining blood pressures off pressor support. Continues on IV zosyn. Chest xray today shows unchanged pleural effusion. Patient remains in the ICU followed closely by pulmonary, cardiology, and surgical services in critical condition. Code status was changed to DNR by family. 11/04/2021 Patient evaluated today in the intensive care unit, he is more alert than yesterday. Per RN patient had a large bowel movement today and bowels are hypoactive today in all quadrants. BM was a maroon color per nurse. Abdominal binder in place. Continues with rivas catheter with over 3L of urine output in the last 24 hours, still with peripheral edema. IV lasix 60 mg x1 was given today. NGT remains in place with only 50 mLs of output overnight. Patient remains off sedation, remains off pressor support. Blood pressure today 115/69, heart rate 106, low grade fever this morning 99.2 axillary, and patient was extubated mid morning is on a 15 L HF cannula. Chest xray this morning shows stable bilateral consolidation and pleural effusion. Remains on D10 gtt at 20 mLs per hour, TPN/Lipids, and IV zosyn. Patient also received potassium suppl ementation today. Followed closely by multiple consultations including cardiology, pulmonary, and surgery and remains in guarded condition. Labs reviewed: sodium 135, potassium 3.2, chloride 120, CO2 20, BUN 45, creat 1.26, blood glucose in the 110's, AST 81, ALT and alk phos have normalized. 11/05/2021 Patient is seen and evaluated in follow-up continues to be in the ICU under close monitoring. Patient was recently extubated and continues on 5 L high flow nasal cannula and oxygen saturations have been 97-100%. Multiple medical consultations including pulmonary air/ocean export clerk and surgery following closely. Chest x-ray today shows removal of endotracheal tube along with NG tube and central venous catheter on the right remains in place with no evident pneumothorax and to correlate for pneumonia, congestive heart failure, possible effusions and associated atelectasis versus edema. Patient did receive a dose of IV Lasix yesterday. Neurology consulted and CT of the brain without contrast ordered to assess mentation which is currently pending. Patient is continued on D10 and water and maintaining blood sugars in the 120s and will continue current regimen. Hemoglobin is 7.7 today with no bleeding noted. Platelets on the lower side at 65 although improved from previous and will continue to monitor closely with repeat labs in the morning. Patient also continues on IV Zosyn and will continue at this time. 11/06/2021 Patient is seen in follow-up continues to be in the ICU with multiple medical consultations following. Patient was evaluated by neurology and EEG was ordered and pending. Patient underwent CT of the brain which showed no acute abnormality noted. Patient also had chest x-ray today which shows no significant interval change compared to yesterday with continued questionable pulmonary infiltration at the mid to lower lung zones and there is some congested pulmonary vasculature with bilateral pleural effusions. Patient had been receiving one-time doses of IV Lasix daily and will add scheduled 40 mg IV Lasix and recommend repeat labs and follow-up chest x-ray. Patient is tolerating 3 L high flow via nasal cannula and maintaining oxygen saturations above 97%. Patient continues with significant weakness and PT/OT therapy consulted to follow the patient daily. Patient noted to have increased output noted in the NG tube and general surgery following an plan is for CT abdomen with contrast this afternoon. Will await report. Continues to be nothing by mouth on TPN and will continue for now. 11/07/2021 Patient is seen and continues to be closely monitored in the ICU. Patient underwent CT abdomen and pelvis which shows some resolution of the previously seen gastric pneumatosis with mild wall thickening of the stomach with questionable minimal residual pneumatosis of the second and third part of the duodenum. There is noted 3 flow of the ingested oral contrast on the ileocecal junction with no evidence of contrast leak. There are slightly dilated small bowel loops measuring 3.3 cm with no definite transition point which may suggest an element of ileus. There is some diffuse bowel thickening of the diana nonspecific and fluid-filled colon with thickened wall that may suggest colitis. Also some moderate amount of free abdominal and pelvic fluid with peritoneal fat stranding and most probably related to postoperative changes although peritonitis cannot be excluded. There is a 2.8 cm gallbladder stone with no gallbladder wall thickening or gross signs of acute cholecystitis with no definite intrahepatic focal lesions identified. And there is some bilateral nasal pleural effusions and subsegmental pulmonary atelectasis demonstrating air bronchogram within. Patient is not currently on antibiotics and patient is afebrile. WBC is 8.4, hemoglobin is 7.9, BMP is noted and magnesium is 2.4, triglycerides found to be elevated at 256. Multiple medical consultations following and will continue to follow closely. All intake of fluids have been decreased to 70 mL per hour including TPN. Recommend follow-up chest x-ray in the morning. Nursing staff reports to a bowel movement yesterday although none today. Review of systems: Unable to obtain as patient is nonverbal and encephalopathic Active Medications Furosemide (Furosemide 10 Mg/Ml 4 Ml Vial) 40 mg IV DAILY [facility] Last Admin: 11/07/21 08:54 Dose: 40 mg Documented by: Hydromorphone HCl (Hydromorphone 0.5 Mg/0.5 Ml Syringe) 0.5 mg IVP Q2HR PRN PRN Reason: Pain Last Admin: 11/07/21 04:56 Dose: 0.5 mg Documented by: Fat Emulsion Intravenous (Lipids 20%) 500 mls @ 41.667 mls/hr IV Mo [facility] Last Admin: 11/04/21 12:37 Dose: 41.667 mls/hr Documented by: Potassium Acetate 30 meq/Calcium Gluconate 1 gm/Potassium Phosphate 6 mmol/Amino Acids/Dextrose 1,027 mls @ 70 mls/hr IV .BY DURATION [facility] Last Admin: 11/07/21 08:54 Dose: 70 mls/hr Documented by: Parenteral Vitamin Supplement 10 ml/ Zinc/Copper/Manganese/Selenium 1 ml/ Potassium Acetate 30 meq/ Calcium Gluconate 1 gm/ Potassium Phosphate 6 mmol/ Amino Acids/Dextrose 1,038 mls @ 70 mls/hr IV .BY DURATION [facility] Last Admin: 11/06/21 18:24 Dose: 70 mls/hr Documented by: Miscellaneous Information (Potassium Replacement Protocol 1 Each Misc) 1 each MISCELLANE DAILY PRN; Protocol PRN Reason: Per Protocol Nystatin (Nystatin 100,000 Unit/Gm Powd 15 Gm) 1 applic TOPICAL DAILY PRN; Protocol PRN Reason: Rash Ondansetron HCl (Ondansetron 4 Mg/2 Ml Vial) 4 mg IVP Q8HR PRN PRN Reason: Nausea And Vomiting Last Admin: 10/30/21 09:30 Dose: 4 mg Documented by: Pantoprazole Sodium (Pantoprazole 40 Mg/10 Ml Vial) 40 mg IVP BID [facility] Last Admin: 11/07/21 08:54 Dose: 40 mg Documented by: PHYSICAL EXAMINATION: GENERAL: Patient is 51-year-old male who is autistic and mumbling although not making coherent words, alert with spontaneous eye tracking. Appears more alert today HEENT: Pupils are round and equally reacting to light. EOMI. No scleral icterus. No conjunctival pallor. Normocephalic, atraumatic. No pharyngeal erythema. No thyromegaly. Eyes are tracking. CARDIOVASCULAR: S1 and S2 muffled PULMONARY: Diminished breath sounds bilaterally with some scattered crackles and rhonchi noted ABDOMEN: Bowel sounds hypoactive in all quadrants today. MUSCULOSKELETAL: No joint swelling or deformity. EXTREMITIES: No cyanosis, clubbing, generalized peripheral edema noted. Right upper and lower extremity cool to the touch NEUROLOGICAL: Encephalopathic, unable to completely assess, not following commands SKIN: No rashes. Assessment: -Sepsis, present on admission possibly secondary to ischemia of the lateral portion of the stomach and mild ischemia of the proximal jejunum -Post operative day #7 partial gastrectomy for ischemic stomach and also had ischemic ileum. -Septic shock status postoperatively, improved -Elevated liver enzymes most probably due to hepatic congestion from fluid overload state -Anion gap metabolic acidosis secondary to lactic acidosis which improved, acidosis secondary to hyperchloremia -Hypokalemia, improved -Acute renal failure secondary to acute blood loss from septic shock, improving -Syncope with loss of consciousness, hypotensive secondary to above, blood pressures have stabilized off pressor support -History of CVA TIA -History diabetes mellitus type 2, uncontrolled at this time, now currently stab le -History of hypertension, hypotensive on admission with a blood pressure in the 70s, holding off on antihypertensive medications. Patient is now maintaining blood pressures off pressor support. -History of autism -History of intellectual impairment -GI Prophylaxis Protonix -DVT Prophylaxis Subcu heparin -NO CODE Plan: Recommend to continue with ICU management and close monitoring. Patient has been weaned off sedation and extubated on 11/04/2021. Patient is encephalopathic and neurology evaluating the patient and EEG was abnormal most likely a component of toxic encephalopathy with no epileptiform activity noted. CT of the brain showing no acute abnormality and patient is more alert today. Patient is highly autistic with intellectual impairment and does live at a senior care in the outpatient setting. Case management and social work following as patient will likely need ECF for continued rehab as patient is extremely weak. PT/OT to work with the patient daily. Patient is currently maintained on 3 L high flow nasal cannula with oxygen saturations of 97-100%. Patient continues to be in critical condition with guarded prognosis. Patient remains off pressor support with stab le blood pressures, and recommend to continue monitoring closely. Patient is NPO and currently receiving TPN and also recommend continue monitoring blood sugars closely as patient had episodes of hypoglycemia and will continue to monitor closely. Patient to continue with NG tube for now and awaiting surgical recommendations. Patient underwent CT of the abdomen pelvis as mentioned previously. Recommend repeat labs and continue with ICU monitoring at this time. Overall prognosis is guarded. The impression and plan of care has been dictated by Rozina Nam, nurse practitioner as directed. Dr. John MD I have performed a history and examination and MDM of this patient, discussed the same with the dictator, and agree with the dictator's assessment and plan as written ,documented as a scribe. Based on total visit time, I have performed more than 50% of the visit. Total number of minutes spent on this visit, 20 minutes. Any additional findings or plans will be noted. Objective - Vital Signs Vital signs: Vital Signs Temp 98.3 F 11/07/21 04:00 Pulse 112 H 11/07/21 06:00 Resp 19 11/07/21 06:00 BP 137/73 11/07/21 06:00 Pulse Ox 96 11/07/21 06:00 Intake & Output 11/06/21 11/07/21 11/07/21 18:59 06:59 18:59 Intake Total 216 739 Output Total 3000 3040 Balance -6094 2304 Weight 92.6 kg 88.4 kg Intake: IV 216 739 Dextrose 10% in Water 500 80 ml @ 20 mls/hr IV .Q24H [facility] Rx#:[id number] Piperacillin-Tazobactam 3 100 700 .375 gm In Sodium Chloride 0.9% 100 ml @ 25 mls/hr IVPB Q8HR [facility] Rx# :[id number] Pressure Bag 36 39 Output: Gastric Drainage 1900 Urine 3000 1140 Other: Voiding Method Indwelling Catheter Indwelling Catheter ABP, PAP, CO, CI - Last Documented Arterial Blood Pressure 106/68 - Labs CBC & Chem 7: 11/07/21 05:30 11/07/21 05:30 Labs: Abnormal Lab Results - Last 24 Hours (Table) 11/06/21 11/06/21 11/06/21 Range/Units 10:17 11:20 21:45 RBC (4.30-5.90) m/uL Hgb (13.0-17.5) gm/dL Hct (39.0-53.0) % RDW (11.5-15.5) % Chloride (98-107) mmol/L BUN (9-20) mg/dL Glucose (74-99) mg/dL POC Glucose (mg/dL) 116 H 131 H (75-99) mg/dL Calcium (8.4-10.2) mg/dL Magnesium (1.6-2.3) mg/dL Vitamin B12 >2000.0 H (200.0-944.0) pg/mL 11/07/21 11/07/21 11/07/21 Range/Units 00:04 04:44 05:30 RBC (4.30-5.90) m/uL Hgb (13.0-17.5) gm/dL Hct (39.0-53.0) % RDW (11.5-15.5) % Chloride 116 H (98-107) mmol/L BUN 28 H (9-20) mg/dL Glucose 139 H (74-99) mg/dL POC Glucose (mg/dL) 162 H 134 H (75-99) mg/dL Calcium 7.7 L (8.4-10.2) mg/dL Magnesium 2.4 H (1.6-2.3) mg/dL Vitamin B12 (200.0-944.0) pg/mL 11/07/21 11/07/21 Range/Units 05:30 07:54 RBC 2.99 L (4.30-5.90) m/uL Hgb 7.9 L (13.0-17.5) gm/dL Hct 25.0 L (39.0-53.0) % RDW 17.0 H (11.5-15.5) % Chloride (98-107) mmol/L BUN (9-20) mg/dL Glucose (74-99) mg/dL POC Glucose (mg/dL) 150 H (75-99) mg/dL Calcium (8.4-10.2) mg/dL Magnesium (1.6-2.3) mg/dL Vitamin B12 (200.0-944.0) pg/mL
[2021-11-07] MEDS: METOCLOPRAMIDE 5 MG/ML 2 ML VIAL IVP SCH ×3 (12:59→23:50)
[2021-11-07 13:11] LABS: Glucose,Whole Blood 136 mg/dL (75-99)
[2021-11-07 15:59] LABS: Glucose,Whole Blood 134 mg/dL (75-99)
[2021-11-07 20:20] LABS: Glucose,Whole Blood 148 mg/dL (75-99)
[2021-11-07 23:45] LABS: Glucose,Whole Blood 142 mg/dL (75-99)
[2021-11-08] MEDS: HYDROmorphone 0.5 MG/0.5 ML SYRINGE IVP PRN ×2 (03:05→23:09)
[2021-11-08 04:05] LABS: Anisocytosis Slight; HGB 7.2 gm/dL (13.0-17.5); Hypochromasia Moderate; MCH 26.1 pg (25.0-35.0); MCHC 31.5 g/dL (31.0-37.0); MCV 82.6 fL (80.0-100.0); Mean Platelet Volume 9.7; Platelet Count 285 k/uL (150-450); RBC 2.78 m/uL (4.30-5.90); RDW 17.4 % (11.5-15.5); WBC 8.5 k/uL (3.8-10.6)
[2021-11-08 04:27] LABS: ALT 67 U/L (4-49); AST 79 U/L (17-59); African American GFR (CKD) >90 (>60 ml/min/1.73 sqM); Albumin 2.1 g/dL (3.5-5.0); Alkaline Phosphatase 204 U/L (38-126); Anion Gap 4 mmol/L; Blood Urea Nitrogen 24 mg/dL (9-20); Calcium 7.6 mg/dL (8.4-10.2); Carbon Dioxide 25 mmol/L (22-30); Chloride 114 mmol/L (98-107); Glucose 137 mg/dL (74-99); Magnesium 2.1 mg/dL (1.6-2.3); Non-African American GFR(CKD) >90 (>60 ml/min/1.73 sqM); Phosphorus 3.5 mg/dL (2.5-4.5); Potassium 3.8 mmol/L (3.5-5.1); Sodium 143 mmol/L (137-145); Total Bilirubin 2.8 mg/dL (0.2-1.3); Total Protein 5.2 g/dL (6.3-8.2)
[2021-11-08] MEDS: POTASSIUM CHLORIDE 10 MEQ in WATER FOR INJECTION 1 100ML.BAG IVPB SCH ×2 (04:42→05:55)
[2021-11-08] MEDS: METOCLOPRAMIDE 5 MG/ML 2 ML VIAL IVP SCH ×4 (05:55→23:39)
[2021-11-08] MEDS ORDERED: FUROSEMIDE 10 MG/ML 4 ML VIAL IV STA (07:49)
[2021-11-08 08:09] LABS: Glucose,Whole Blood 140 mg/dL (75-99)
--- NOTE | 2021-11-08 08:19 | XR ---
EXAMINATION TYPE: XR chest 1V portable DATE OF EXAM: 11/08/2021 COMPARISON: Chest x-ray 11/06/2021 HISTORY: Shortness of breath TECHNIQUE: Single frontal view of the chest is obtained. FINDINGS: NG tube and right jugular central venous catheter are again noted. Patient is rotated. The re is no evident pneumothorax. Bibasilar density persists. Suspect some improvement in volume status, aeration within the upper lobes. Cardiac mediastinal silhouette is likely stable. IMPRESSION: Basilar atelectasis, difficult to exclude effusion. Probable improvement in aeration, vo lume status.
[2021-11-08] MEDS ORDERED: ACETAMINOPHEN IV (For NPO) 1,000 MG in EMPTY BAG 1 BAG IVPB PRN (08:49)
[2021-11-08] MEDS: FUROSEMIDE 10 MG/ML 4 ML VIAL IV SCH (08:59)
[2021-11-08] MEDS: PANTOPRAZOLE 40 MG/10 ML VIAL IVP SCH ×2 (08:59→20:37)
[2021-11-08] MEDS: ENOXAPARIN 40 MG/0.4 ML SYRINGE SQ SCH (09:00)
--- NOTE | 2021-11-08 09:11 | P.PN ---
Subjective Progress Note Date: 11/08/21 Principal diagnosis: Respiratory failure. On 11/01/2021, the patient remains intubated on a mechanical ventilator. The patient's condition remains critical and the patient developed septic shock and multisystem organ failure due to GI complications/acute abdomen. The patient is post partial gastrectomy and the patient is postop day #2. On today's evaluation, the patient remains on a mechanical ventilator and the patient is still sedated with propofol. Propofol residing at 50 mcg/kg per minute. The patient is quite stiff is a mechanical ventilator and the patient is an assist- control at the rate of 28 with a tidal volume of 450, FiO2 60% with a PEEP of 5. The patient has a pH of 7.3 and I attribute to 29 and pO2 of 174. Chest x-ray showing development of a left lower lobe pulmonary infiltrates/atelectasis/effusion. ET tube was in a good location. NG tube is a lso has a good location. Meanwhile, the patient continues to be aggressively resuscitated IV fluids. Overall fluid balance over the past 24 hours has been +5.5 L the patient received several fluid boluses. The patient has dropped the lactic acid level down to 0.1. Norepinephrine infusion is also being weaned down to 0.4 mg/kg per minute and vasopressin is at 0.03 units per minute. As such, there has been some improvement in the pressors requirements nontender the patient norepinephrine infusion was as high as 1 mcg/kg per minute. Meanwhile, the patient is developing episodes of hypoglycemia. Blood sugar is at 151. Currently he is on D5 minimal white discharge in the D10. We'll also consider possibility of starting the patient on TPN for nutritional support special with ongoing episodes of hypoglycemia. The patient is afebrile. The white second attempt 0.4 with a hemoglobin of 9.7 and a platelet count of 79 sodium is at 144 with a potassium of 4.4, serum bicarbonate of 11 degenerative 47 with a creatinine of 2.1. Cultures of been all negative thus far. Baseline serum cristhian isol level at 23. TSH 00.8. NG tube is in place and output is minimal and there is no signs of any upper GI bleeding at this point in time. Surgical wound site is dry clean and intact. 11/02/2021, I'm seeing the patient postop day #3. The patient seems to be more stable compared to yesterday. Noted the patient had an extensive surgery which included a partial gastrectomy. Postop, the patient developed hypotension/shock/multisystem organ failure. He has a more stable condition on today's evaluation. He is on assist-control mode rate of 28, tidal volume of 450, FiO2 of 30% and a PEEP of 5. The blood gas showed a pH of 7.32 with a pCO2 of 31 and pO2 of 184. Since early childhood worker at 2 AM, the patient was also taken off the vasopressin drip and the patient was taken off the norepinephrine drip. Chest x-ray showing pulmonary vascular congestion and some edema in addition to development of a left-sided pleural effusion. ET tube remains in a good location. Despite his fluid overload, the patient's is oxygenating adequately. Input output balance is +5.5 L over the past 24 hours. The NG tube output has been 500 mL of gastric material over the past 12 hours. The patient also on TPN running at 30 mL an hour. Bowel sounds are absent. Surgical wound sites are clean and intact. Patient has adequate pulses in all 4 extremities. Urine output is adequate and the creatinine is down to 1.39 with a BUN of 41 and a sodium level of 142. The patient is afebrile. The patient is hemodynamically stable. The patient is also off the D10 infusion. No further episodes of hypoglycemia this point in time. 11/03/2021, the patient is postop day #4. Hemodynamically stable on no pre ssors. He remains on a mechanical ventilator. Propofol was discontinued yesterday. The patient is grimacing to painful stimulation. He is not following commands yet. He is opening up his eyes. I think there is some neurologic recovery although the patient may still be encephalopathic due to sh ock. In the rate, the patient remains nothing by mouth. The NG tube is in place and the output has been in the order of 800 mL over the past 24 hours. Hypoactive bowel sounds. No bowel movement activity or flatus yet. Input output balance is -1.8 L. The patient remains on TPN for nutritional support rate of 65 mL an hour. In view of underlying episodes of hypoglycemia, the patient was also placed on D10 at the rate of 20 mL an hour. Blood sugars are still lower and soft. The patient is producing adequate amount of urine output. Creatinine is at 1.44 with BUN of 37. IV fluids was cut down to KVO. Lasix was given yesterday and another dose of Lasix will be given today. He will be given 4 mg IV push 1. Chest x-rays done today shows a left-sided pleural effusion. ET tube is in a good location. OG tube is in a good location. No other acute abnormalities. The patient remains on a mechanical ventilator today and an assist-control mode at the rate of 28 with a tidal volume of 450 and FiO2 of 30% with a PEEP of 5. The blood gases from today shows a pH of 7.39 with a pCO2 of 32 and pO2 of 119. Meanwhile, the patient has good weaning parameters. Unable to extubated the patient has not had adequate level of alertness. His weaning parameters seem to be good and should be able to tolerate a spontaneous breathing trial without any issues. Progress note dated 11/04/2021. This is a 51-year-old male, who was admitted to the hospital on October 29. The patient came in with syncope, nausea vomiting, and low blood pressure. The patient came to the intensive care unit, on October 30. He was intubated on that same day, having had a partial gastrectomy. Today's postop day #5. The patient is a DO NOT RESUSCITATE patient. He remains on mechanical ventilator. He is on the volume assist control mode, rate 28, tidal volume 450, FiO2 30%, PEEP of 5. Blood gases show pO2 112, pCO2 29, and pH is 7.45. The patient's on D10, at 20 mL an hour, and TPN at 65 mL an hour. The patient will get Lasix 60 mg IV push today. We will attempt a daily interruption of sedation, and a spontaneous breathing trial. Sodium 145, potassium 3.2, chlorides 120, CO2 20, anion gap 5, BUN 45, and creatinine 1.26. There was no CBC today. Albumin is 1.6. Microbiology is negative. Chest x-ray shows stable bilateral consolidations and small effusions. Weaning parameters today, were reasonable. The rapid shallow breathing index was 72. He did have a cuff leak. He will be given a trial of extubation. Progress note dated 11/05/2021. This is a 51-year-old male, who is again seen in room 255. He was admitted to the hospital on October 29. He came in with syncope, nausea, vomiting, and low blood pressure. He came to the intensive care unit one day later on October 30. He was intubated on that same day, having had a partial gastrectomy. Today is postop day #6. Yesterday, he was on the ventilator. We did do a daily interruption of sedation, and worse able to extubate him yesterday. He is a DO NOT RESUSCITATE patient. Currently, he's on 5 L nasal cannula. He's getting D1 0 at 20 mL an hour, TPN is running at 98 mL an hour, and saline at 10 mL an hour. White count 7.5, hemoglobin 7.7, hematocrit 23.9, and platelet count 65,000. Sodium 144, potassium 3.5, chlorides 119, CO2 23, anion gap 2, BUN 40, creatinine 1.06. Blood cultures, currently negative. Chest x-ray shows bilateral consolidations and small effusions. The chest x-ray is a bit worse today, likely because the patient is not on positive pressure ventilation. Progress note dated 11/06/2021. This is a 51-year-old male, again seen in room 255. He was admitted to the hospital on October 29. He came in with syncope, nausea, vomiting, and hypotension. The patient came to the intensive care unit, one day later on 10/30/2021. The patient underwent partial gastrectomy on that day, and is been intubated up until a few days ago. Today is postop day #7. The patient was extubated on November 04. The patient is currently on 2 L nasal cannula. He's getting TPN at 98 mL an hour, and saline at 10 mL an hour. In addition, he's on D10, at 20 mL an hour. The patient is very poorly responsive and basically just grunts. Likely his baseline mental status. White count 6.9, hemoglobin 8.1, hematocrit 27.1, and platelet count 127,000. Sodium 143, potassium 4.5, chloride 119, CO2 22, BUN 35, and creatinine 0.83. Magnesium is 2.7. Blood cultures are negative. Chest x-ray shows some diffuse bilateral infiltrates and bilateral pleural effusions, and the chest x-ray is largely unchanged. Progress note dated 11/07/2021. Progress note dated 11/07/2021. 51-year-old male, again seen in room 255. He was admitted to the hospital on October 29. He came in initially with syncope, nausea, vomiting, and hypotension. The patient was brought to the intensive care unit on 10/30/2021. On that same day, he underwent partial gastrectomy. The patient was intubated up until a few days ago. Today's postop day #8. The patient was extubated on November 04. Currently, he's on 2 L nasal cannula. He is receiving TPN at 70 mL an hour, and saline at 10 mL an hour. Current laboratory data includes a sodium 144, potassium 3.8, chlorides 116, CO2 24, anion gap 4, BUN 28, creatinine 0.82. Glucose 139. CT of the abdomen and pelvis shows postoperative changes, with interval resolution of the previously seen gastric and small bowel pneumatosis, as well as intrahepatic portal venous gas. The oral contrast can be seen passing down to the ileocecal junction without evidence of obstruction or leak. There is diffuse wall thickening of the stomach and small bowel. Progress note dated 11/08/2021. 51-year-old developmentally delayed male, seen again in room 255. The patient was admitted to the hospital on October 29. He initially was admitted with a diagnosis of syncope, nausea, vomiting, and hypotension. The patient was brought to the intensive care unit on October 30, and on the same day, underwent p artial gastrectomy. The patient is postop day #9. He was successfully extubated from the ventilator on November 04. Currently, he's on 2 L nasal cannula. He is getting TPN at 70 mL an hour. He is getting saline at 10 mL an hour. He is a DO NOT RESUSCITATE patient. He's had significant output from his NG tube which remains in place. He will get Lasix 40 mg IV push today. Laboratory data includes a white count 8.5, hemoglobin 7.2, hematocrit 23, and platelet count 285,000. Sodium 143, potassium 3.8, chlorides 114, CO2 25, BUN 24, and creatinine 0.91. AST is 79, ALT is 67. Albumin is 2.1. Microbiology is negative. Chest x-ray show some bibasilar atelectasis and possible small effusions. Overall x-ray pattern has improved. Objective - Vital Signs Vital signs: Vital Signs Temp 101.5 F H 11/08/21 08:00 Pulse 112 H 11/08/21 08:00 Resp 30 H 11/08/21 08:00 BP 132/60 11/08/21 08:00 Pulse Ox 93 L 11/08/21 08:00 Intake & Output 11/07/21 11/08/21 11/08/21 18:59 06:59 18:59 Intake Total 913 2079.667 83 Output Total 3090 1935 45 Balance -2177 144.667 38 Weight 84.5 kg Intake: IV 913 416 13 Potassium Acetate 30 meq 770 70 Calcium Gluconate 1 gm Potassium Phosphate 6 mmol In Amino Acids 5 %/ Dextrose 20 % 1,000 ml @ 70 mls/hr IV .BY DURATION [facility] Rx#:[id number] Potassium Chloride 10 meq 200 In Water For Injection 1 100ml.bag @ 100 mls/hr IVPB Q1H [facility] Rx#: [id number] Pressure Bag 33 36 3 Sodium Chloride 0.9% 1, 110 110 10 000 ml @ 20 mls/hr IV . Q24H [facility] Rx#:[id number] Intake, IV Titration 893.667 Amount Potassium Acetate 30 meq 893.667 Calcium Gluconate 1 gm Potassium Phosphate 6 mmol In Amino Acids 5 %/ Dextrose 20 % 1,000 ml @ 70 mls/hr IV .BY DURATION [facility] Rx#:[id number] TPN/PPN 770 70 Potassium Acetate 30 meq 770 70 Calcium Gluconate 1 gm Potassium Phosphate 6 mmol In Amino Acids 5 %/ Dextrose 20 % 1,000 ml @ 70 mls/hr IV .BY DURATION [facility] Rx#:[id number] Output: Gastric Drainage 550 1350 Urine 2540 585 45 Other: Voiding Method Indwelling Catheter Indwelling Catheter ABP, PAP, CO, CI - Last Documented Arterial Blood Pressure 106/68 - Exam No acute distress, NG tube in place, with nasal cannula at 2 L/m. The patient basically just grunts. Saturations are 93%. HEENT examination is grossly unremarkable. Neck supple. Full range of motion. No adenopathy thyromegaly or neck vein distention. Cardiovascular examination reveals regular rhythm rate. S1-S2 normal. No S3 or S4. No discernible murmur noted. Heart sounds are distant. Heart rate 104 bpm. Lungs reveal mild scattered rhonchi. No wheezes or crackles. Breath sounds equal bilaterally. Saturations are 93% on 2 L. Abdomen soft, without bowel sounds. Extremities are intact. No cyanosis or clubbing. Mild diffuse edema noted. Skin is without rash or lesion. Neurologic examination reveals a poorly responsive individual, on nasal cannula, with an NG tube in place. The patient appears less responsive today than he has the last couple of days. - Labs CBC & Chem 7: 11/08/21 04:00 11/08/21 04:00 Labs: Abnormal Lab Results - Last 24 Hours (Table) 11/07/21 11/07/21 11/07/21 Range/Units 05:30 05:30 13:10 RBC 2.99 L (4.30-5.90) m/uL Hgb 7.9 L (13.0-17.5) gm/dL Hct 25.0 L (39.0-53.0) % RDW 17.0 H (11.5-15.5) % Chloride (98-107) mmol/L BUN (9-20) mg/dL Glucose (74-99) mg/dL POC Glucose (mg/dL) 136 H (75-99) mg/dL Calcium (8.4-10.2) mg/dL Total Bilirubin (0.2-1.3) mg/dL AST (17-59) U/L ALT (4-49) U/L Alkaline Phosphatase (38-126) U/L Total Protein (6.3-8.2) g/dL Albumin (3.5-5.0) g/dL Triglycerides 256.00 H (0.00-149.00) mg/dL 11/07/21 11/07/21 11/07/21 Range/Units 15:57 20:18 23:43 RBC (4.30-5.90) m/uL Hgb (13.0-17.5) gm/dL Hct (39.0-53.0) % RDW (11.5-15.5) % Chloride (98-107) mmol/L BUN (9-20) mg/dL Glucose (74-99) mg/dL POC Glucose (mg/dL) 134 H 148 H 142 H (75-99) mg/dL Calcium (8.4-10.2) mg/dL Total Bilirubin (0.2-1.3) mg/dL AST (17-59) U/L ALT (4-49) U/L Alkaline Phosphatase (38-126) U/L Total Protein (6.3-8.2) g/dL Albumin (3.5-5.0) g/dL Triglycerides (0.00-149.00) mg/dL 11/08/21 11/08/21 11/08/21 Range/Units 04:00 04:00 08:07 RBC 2.78 L (4.30-5.90) m/uL Hgb 7.2 L (13.0-17.5) gm/dL Hct 23.0 L (39.0-53.0) % RDW 17.4 H (11.5-15.5) % Chloride 114 H (98-107) mmol/L BUN 24 H (9-20) mg/dL Glucose 137 H (74-99) mg/dL POC Glucose (mg/dL) 140 H (75-99) mg/dL Calcium 7.6 L (8.4-10.2) mg/dL Total Bilirubin 2.8 H (0.2-1.3) mg/dL AST 79 H (17-59) U/L ALT 67 H (4-49) U/L Alkaline Phosphatase 204 H (38-126) U/L Total Protein 5.2 L (6.3-8.2) g/dL Albumin 2.1 L (3.5-5.0) g/dL Triglycerides (0.00-149.00) mg/dL Assessment and Plan Assessment: Postop day #9, status post partial gastrectomy. Routine postoperative ventilator management, S/P extubation from mechanical ventilation, 11/04/2021. Septic shock, post gastric surgery, requiring fluids and vasopressors. Acute hypoxemic respiratory failure, status post intubation on 10/30/2021. Acute lactic acidosis, resolved. Acute kidney injury. History of CVA. Diabetes mellitus. History of hypertension. Developmental delay and autism. Episodic hypoglycemia. Plan: Plan dated 11/04/2021. The patient had reasonable weaning parameters. The rapid shallow breathing index was less than 80. The patient be given a trial of extubation. The patient continues on all appropriate medications. The patient does get Lasix 60 mg IV push prior to extubation. Additional recommendations and suggestions are forthcoming. The patient is a DO NOT RESUSCITATE patient. Post extubation, BiPAP can be employed if necessary. Labs, x-rays, and medications are all reviewed. We will continue to follow make recommendations where appropriate. Plan dated 11/05/2021. The patient was extubated yesterday. The patient remains on D10, and also TPN at 90 mL an hour. I've asked the nurse to try to get the patient to do incentive spirometry. The NG tube remains in place. Chest x-ray, labs, and medications are reviewed. The patient is a DO NOT RESUSCITATE patient. Patient remains on Zosyn. The patient's also getting GI prophylaxis with Protonix. Plan dated 11/06/2021. The patient was extubated from mechanical ventilation on November 04. The patient remains on TPN at 98 mL an hour. D10 will be discontinued. The patient's on 2- 3 L of nasal cannula. Microbiologic data is negative. Chest x-ray is unchanged. Respiratory status is slightly improved. The patient will receive Lasix 80 mg once a day, IV push. Additional recommendations and suggestions are forthcoming. Prognosis is very guarded. The patient is getting GI prophylaxis. Plan dated 11/07/2021. The patient was extubated from mechanical ventilation on November 04. He remains on TPN, and saline. The patient's mental status has not changed. CT of the abdomen and pelvis from November 06, is reviewed. The patient is still in my opinion too unstable to be transferred out of the intensive care unit. He is a DO NOT RESUSCITATE patient. The patient did receive Lasix IV push yesterday. No additional Lasix today. Labs, x-rays, and medications are reviewed. The patient remains on TPN. Blood cultures have remained negative. The patient's currently not on any antibiotics. Plan dated 11/08/2021. The patient was extubated from mechanical ventilation on November 04. He currently remains on O2 2 L, and TPN at 70 mL an hour. Today, his mental status seems worse. He seems less awake. Labs, x-rays, medications are reviewed. The patient will get Lasix 40 mg IV push 1 today. We will continue to follow. Microbiologic studies are negative. The patient's currently not on any antibiotics. Overall prognosis is certainly very guarded. Time with Patient: Greater than 30
--- NOTE | 2021-11-08 09:59 | P.PN ---
Subjective Progress Note Date: 11/07/21 Patient was seen for a follow-up. Patient's caregivers brother and [id number] were present today. According to them, patient is answering only in "yes/no". His speech is not back to his baseline. He sometimes grunts. Patient is sleeping, as he has received some pain medication. Still very weak in the arms and legs. The caregivers have noted that he sometimes lifts his left arm spontaneously, but not to the commands. The nurse reported that patient would sporadically lift his left arm, all the way up to scratch his head. She has not seen much movement of the right arm although patient's ihlhlur-mi-bjx has noticed some movement with the right arm once, when he lifted it off the bed about 30. However patient would not move his hands on commands, or when asked to do so. This has been witnessed by the nurse, the therapist as well as family members. Patient would not move his legs p articularly when the SCDs and boots are in place. However when the SCDs are removed, patient would cross and then crossed legs by himself. This also has been witnessed by many people. Patient however would not move his arms or legs when I asked him to do so. Objective - Vital Signs Vital signs: Vital Signs Temp 101.5 F H 11/08/21 08:00 Pulse 112 H 11/08/21 08:00 Resp 30 H 11/08/21 08:00 BP 132/60 11/08/21 08:00 Pulse Ox 93 L 11/08/21 08:00 Intake & Output 11/07/21 11/08/21 11/08/21 18:59 06:59 18:59 Intake Total 913 2079.667 83 Output Total 3090 1935 45 Balance -2177 144.667 38 Weight 84.5 kg Intake: IV 913 416 13 Potassium Acetate 30 meq 770 70 Calcium Gluconate 1 gm Potassium Phosphate 6 mmol In Amino Acids 5 %/ Dextrose 20 % 1,000 ml @ 70 mls/hr IV .BY DURATION [facility] Rx#:[id number] Potassium Chloride 10 meq 200 In Water For Injection 1 100ml.bag @ 100 mls/hr IVPB Q1H [facility] Rx#: [id number] Pressure Bag 33 36 3 Sodium Chloride 0.9% 1, 110 110 10 000 ml @ 20 mls/hr IV . Q24H [facility] Rx#:[id number] Intake, IV Titration 893.667 Amount Potassium Acetate 30 meq 893.667 Calcium Gluconate 1 gm Potassium Phosphate 6 mmol In Amino Acids 5 %/ Dextrose 20 % 1,000 ml @ 70 mls/hr IV .BY DURATION [facility] Rx#:[id number] TPN/PPN 770 70 Potassium Acetate 30 meq 770 70 Calcium Gluconate 1 gm Potassium Phosphate 6 mmol In Amino Acids 5 %/ Dextrose 20 % 1,000 ml @ 70 mls/hr IV .BY DURATION [facility] Rx#:[id number] Output: Gastric Drainage 550 1350 Urine 2540 585 45 Other: Voiding Method Indwelling Catheter Indwelling Catheter ABP, PAP, CO, CI - Last Documented Arterial Blood Pressure 106/68 - Exam Patient is groggy, somnolent, appears encephalopathic. Patient only making some non-intelligible vocalization. Not able to name objects. Patient keeps his head to the left, probably because of being uncomfortable feeling from having central line and all the bandages in the right side of the neck. Pupils are equal round and reacting, face is symmetric, mouth is dry. His gaze is midline. No obvious gaze palsy. Abdomen appears somewhat distended. Patient not able to move his arms or hands. He is able to wiggle his feet/toes a little. Reflexes are (right/left) biceps 1/2, brachioradialis trace/1, knee 2/1+, plantars are downgoing. On checking plantars, patient would hold the toes flexed fairly strongly down. He would do it less significantly on the left. Patient has significant peripheral edema. - Labs CBC & Chem 7: 11/08/21 04:00 11/08/21 04:00 Labs: Abnormal Lab Results - Last 24 Hours (Table) 11/07/21 11/07/21 11/07/21 Range/Units 05:30 13:10 15:57 RBC (4.30-5.90) m/uL Hgb (13.0-17.5) gm/dL Hct (39.0-53.0) % RDW (11.5-15.5) % Chloride (98-107) mmol/L BUN (9-20) mg/dL Glucose (74-99) mg/dL POC Glucose (mg/dL) 136 H 134 H (75-99) mg/dL Calcium (8.4-10.2) mg/dL Total Bilirubin (0.2-1.3) mg/dL AST (17-59) U/L ALT (4-49) U/L Alkaline Phosphatase (38-126) U/L Total Protein (6.3-8.2) g/dL Albumin (3.5-5.0) g/dL Triglycerides 256.00 H (0.00-149.00) mg/dL 11/07/21 11/07/21 11/08/21 Range/Units 20:18 23:43 04:00 RBC (4.30-5.90) m/uL Hgb (13.0-17.5) gm/dL Hct (39.0-53.0) % RDW (11.5-15.5) % Chloride 114 H (98-107) mmol/L BUN 24 H (9-20) mg/dL Glucose 137 H (74-99) mg/dL POC Glucose (mg/dL) 148 H 142 H (75-99) mg/dL Calcium 7.6 L (8.4-10.2) mg/dL Total Bilirubin 2.8 H (0.2-1.3) mg/dL AST 79 H (17-59) U/L ALT 67 H (4-49) U/L Alkaline Phosphatase 204 H (38-126) U/L Total Protein 5.2 L (6.3-8.2) g/dL Albumin 2.1 L (3.5-5.0) g/dL Triglycerides (0.00-149.00) mg/dL 11/08/21 11/08/21 Range/Units 04:00 08:07 RBC 2.78 L (4.30-5.90) m/uL Hgb 7.2 L (13.0-17.5) gm/dL Hct 23.0 L (39.0-53.0) % RDW 17.4 H (11.5-15.5) % Chloride (98-107) mmol/L BUN (9-20) mg/dL Glucose (74-99) mg/dL POC Glucose (mg/dL) 140 H (75-99) mg/dL Calcium (8.4-10.2) mg/dL Total Bilirubin (0.2-1.3) mg/dL AST (17-59) U/L ALT (4-49) U/L Alkaline Phosphatase (38-126) U/L Total Protein (6.3-8.2) g/dL Albumin (3.5-5.0) g/dL Triglycerides (0.00-149.00) mg/dL Assessment and Plan Assessment: * Altered mental status, likely due to toxic metabolic encephalopathy. * Generalized weakness, possible due to encephalopathy. Patient's reflexes are present, no evidence of polyneuropathy. No definitive evidence of myelopathy. 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 * Status post septic shock. * Status post acute kidney injury, improved * Episode of hypoglycemia 36 mg/dL) on 11/01/2021 At 12:20 AM. * Diabetes * Hypertension * Anemia * Developmental delay, autism and intellectual impairment. Plan: * Patient's altered mental status is likely due to toxic metabolic enc ephalopathy, which hopefully will improve with time. * Patient appears generalized weak. He would not respond or move his extremities to the commands, however he has been seen by multiple people that he easily moves his left arm, above the shoulder to scratch his head and he would cross and across the legs whenever he wants. I'm not sure if there is any true weakness. All metabolic workup as below is negative. There may be some component of critical illness myopathy. * EEG 11/06/2021 revealed moderate background slowing consistent with encephalopathy. No epileptiform activity was seen. * Computed tomography scan of the head showed no acute process. * Repeat ammonia is normal <9. B12 > 2000, folate 10.9. TSH is normal. * Avoid any episodes of hypoglycemia. * We will continue to follow. * Discussed with patient's caregivers.
[2021-11-08] MEDS: PIPERACILLIN-TAZOBACTAM 3.375 GM in SODIUM CHLORIDE 0.9% 100 ML IVPB SCH ×3 (10:23→23:39)
[2021-11-08 11:30] LABS: Glucose,Whole Blood 174 mg/dL (75-99)
[2021-11-08] MEDS: POTASSIUM PHOSPHATE IV SCH ×6 (12:18)
[2021-11-08] MEDS: POTASSIUM ACETATE IV SCH ×6 (12:18)
[2021-11-08] MEDS: [UNRECOGNIZED DRUG - OTHER] IV SCH ×6 (12:18)
[2021-11-08] MEDS: CALCIUM GLUCONATE IV SCH ×6 (12:18)
[2021-11-08] MEDS: IPRATROPIUM-ALBUTEROL 3 ML NEB INHALATION SCH ×2 (12:58→20:07)
--- NOTE | 2021-11-08 13:56 | P.PN ---
Subjective Progress Note Date: 11/08/21 CHIEF COMPLAINT: Abdominal pain HISTORY OF PRESENT ILLNESS: Patient is status post exploratory laparotomy with partial gastrectomy for ischemia of the lateral portion of the stomach and mild ischemia noted of the proximal jejunal. Postop day #9. Patient currently in the ICU. Patient continues to have high outputs are NG tube. Patient started on Reglan yesterday for ileus. He did have a bowel movement this morning. Mentation is about the same. Patient did have a fever of 101.5 and tachycardia. He was restarted on antibiotics. WBC is 8.5 hemoglobin 7.2 platelets 285 sodium 143 potassium 3.8 creatinine 0.91 patient currently on IV Tylenol for his fevers. Chest x-ray has shown evidence of atelectasis. Patient unable to do incentive spirometer. DuoNeb updrafts ordered. Urine culture and blood culture ordered due to fever. Patient seen and examined with Dr. jay PHYSICAL EXAM: VITAL SIGNS: Reviewed. GENERAL: Well-developed in no acute distress. HEENT: No sclera icterus. Extraocular movements grossly intact. Moist buccal mucosa. Head is atraumatic, normocephalic. ABDOMEN: Soft. Nondistended. Nontender, Incision site clean dry and intact NEUROLOGIC: Awake. Patient is not talking ASSESSMENT: 1. Ischemia of the lateral portion of the stomach and mild ischemia of the proximal jejunum status post exploratory laparotomy and partial gastrectomy. 2. Septic shock 3. Possible toxic metabolic encephalopathy 4. Postoperative ileus 5. Thrombocytopenia resolved 6. Atelectasis PLAN: -Continue ICU management -Continue supportive care -Continue NG tube for decompression -Keep patient nothing by mouth -Restart antibiotics -Continue Reglan for ileus -DuoNeb updrafts added for atelectasis since patient cannot use incentive spirometer -Continue TPN for nutrition support -DVT prophylaxis per critical care service and GI prophylaxis Protonix -CODE STATUS DO NOT RESUSCITATE Physician Registered Nurse Ambulatory note has been reviewed by physician. Signing provider agrees with the documented findings, assessment, and plan of care. Objective - Vital Signs Vital signs: Vital Signs Temp 98.3 F 11/08/21 12:00 Pulse 90 11/08/21 13:00 Resp 25 H 11/08/21 13:00 BP 119/55 11/08/21 13:00 Pulse Ox 95 11/08/21 13:00 Intake & Output 03/06/2111/08/21 11/08/21 18:59 06:59 18:59 Intake Total 1950 2079.667 698 Output Total 3090 1935 2310 Balance -1139 144.667 -1612 Weight 84.5 kg 84.5 kg Intake: IV 913 416 278 ACETAMINOPHEN IV (For NPO 100 ) 1,000 mg In Empty Bag 1 bag @ 400 mls/hr IVPB Q6HR PRN Rx#:[id number] Piperacillin-Tazobactam 3 100 .375 gm In Sodium Chloride 0.9% 100 ml @ 25 mls/hr IVPB Q8HR [facility] Rx# :[id number] Potassium Acetate 30 meq 770 70 Calcium Gluconate 1 gm Potassium Phosphate 6 mmol In Amino Acids 5 %/ Dextrose 20 % 1,000 ml @ 70 mls/hr IV .BY DURATION [facility] Rx#:[id number] Potassium Chloride 10 meq 200 In Water For Injection 1 100ml.bag @ 100 mls/hr IVPB Q1H [facility] Rx#: [id number] Pressure Bag 33 36 18 Sodium Chloride 0.9% 1, 110 110 60 000 ml @ 20 mls/hr IV . Q24H [facility] Rx#:[id number] Intake, IV Titration 1038 893.667 Amount Mvi, Adult No.4 with Vit 1038 K 10 ml Trace (Conc-1Ml/ Dose) 1 ml Potassium Acetate 30 meq Calcium Gluconate 1 gm Potassium Phosphate 6 mmol In Amino Acids 5 %/Dextrose 20 % 1,000 ml @ 70 mls/hr IV . BY DURATION [facility] Rx#: [id number] Potassium Acetate 30 meq 893.667 Calcium Gluconate 1 gm Potassium Phosphate 6 mmol In Amino Acids 5 %/ Dextrose 20 % 1,000 ml @ 70 mls/hr IV .BY DURATION [facility] Rx#:[id number] TPN/PPN 770 420 Mvi, Adult No.4 with Vit 70 K 10 ml Trace (Conc-1Ml/ Dose) 1 ml Potassium Acetate 30 meq Calcium Gluconate 1 gm Potassium Phosphate 6 mmol In Amino Acids 5 %/Dextrose 20 % 1,000 ml @ 70 mls/hr IV . BY DURATION [facility] Rx#: [id number] Potassium Acetate 30 meq 770 350 Calcium Gluconate 1 gm Potassium Phosphate 6 mmol In Amino Acids 5 %/ Dextrose 20 % 1,000 ml @ 70 mls/hr IV .BY DURATION [facility] Rx#:[id number] Output: Gastric Drainage 550 1350 1150 Urine 2540 58 1160 Other: Voiding Method Indwelling Catheter Indwelling Catheter Indwelling Catheter ABP, PAP, CO, CI - Last Documented Arterial Blood Pressure 106/68 - Labs CBC & Chem 7: 11/08/21 04:00 11/08/21 04:00 Labs: Abnormal Lab Results - Last 24 Hours (Table) 11/07/21 11/07/21 11/07/21 Range/Units 15:57 20:18 23:43 RBC (4.30-5.90) m/uL Hgb (13.0-17.5) gm/dL Hct (39.0-53.0) % RDW (11.5-15.5) % Chloride (98-107) mmol/L BUN (9-20) mg/dL Glucose (74-99) mg/dL POC Glucose (mg/dL) 134 H 148 H 142 H (75-99) mg/dL Calcium (8.4-10.2) mg/dL Total Bilirubin (0.2-1.3) mg/dL AST (17-59) U/L ALT (4-49) U/L Alkaline Phosphatase (38-126) U/L Total Protein (6.3-8.2) g/dL Albumin (3.5-5.0) g/dL 11/08/21 11/08/21 11/08/21 Range/Units 04:00 04:00 08:07 RBC 2.78 L (4.30-5.90) m/uL Hgb 7.2 L (13.0-17.5) gm/dL Hct 23.0 L (39.0-53.0) % RDW 17.4 H (11.5-15.5) % Chloride 114 H (98-107) mmol/L BUN 24 H (9-20) mg/dL Glucose 137 H (74-99) mg/dL POC Glucose (mg/dL) 140 H (75-99) mg/dL Calcium 7.6 L (8.4-10.2) mg/dL Total Bilirubin 2.8 H (0.2-1.3) mg/dL AST 79 H (17-59) U/L ALT 67 H (4-49) U/L Alkaline Phosphatase 204 H (38-126) U/L Total Protein 5.2 L (6.3-8.2) g/dL Albumin 2.1 L (3.5-5.0) g/dL 11/08/21 Range/Units 11:29 RBC (4.30-5.90) m/uL Hgb (13.0-17.5) gm/dL Hct (39.0-53.0) % RDW (11.5-15.5) % Chloride (98-107) mmol/L BUN (9-20) mg/dL Glucose (74-99) mg/dL POC Glucose (mg/dL) 174 H (75-99) mg/dL Calcium (8.4-10.2) mg/dL Total Bilirubin (0.2-1.3) mg/dL AST (17-59) U/L ALT (4-49) U/L Alkaline Phosphatase (38-126) U/L Total Protein (6.3-8.2) g/dL Albumin (3.5-5.0) g/dL
--- NOTE | 2021-11-08 15:27 | P.PN ---
Subjective Progress Note Date: 11/08/21 Patient was admitted for nausea vomiting diarrhea believed to have gastroenteritis. Patient continued to have vomiting and started having abdominal tenderness because of which CT of the abdomen was obtained which showed pneumatosis coli along with some gas in the venous system concern for ischemic bowel. Patient was started on Zosyn. Patient subsequently decompensated patient became hypotensive with BP of 60/40 transferred to ICU patient was given 3 L of boluses of IV fluid NG tube was placed which showed bloody output . Patient in septic shock and receiving norepinephrine at this time. Recent echo showed normal ejection fraction. Patient had CTA of the chest which was negative for pulmonary embolism patient creatinine has worsened and went up to 2.80 today from 1.14 yesterday and this is secondary to acute tubular necrosis from sepsis and septic shock. Patient does have lactic acidosi s, patient does have lactic acidosis with lactic acidosis 7.5. Patient will be given 1 L of IV fluids continue pressor support. he is intubated and sedated. 10/31/2021 Patient is started having urine output. Patient underwent a arthrotomy yesterday and found to have ischemia of the lateral portion of the stomach and ischemia of the proximal jejunum patient underwent partial gastrectomy. Patient is presently on that to pressors maximized on norepinephrine, patient is also on vasopressin receiving albumin, IV fluids started having minimal urine output patient was anuric last night. Patient's chloride is highly elevated leading to metabolic acidosis patient also has an anion gap metabolic acidosis from lactic acidosis which appears to be improving at this time patient's overall clinical condition is guarded and the prognosis is poor. Patient Y blood cell count went down in fact patient is neutropenic now. Patient is presently not receiving any nutrition at this time. 11/01/2021 Patient is seen in follow-up continues to be closely monitored in the ICU in critical condition. Multiple medical consultations including pulmonary pressure tank operator, cardiology, surgery following closely. Patient is status post partial gastrectomy postop day #2. Patient continues on IV Zosyn along with normal saline at 75 ML per hour. Per nursing staff patient continues on Levophed along with vasopressin for pressor support. Patient not tolerating weaning very well to assess mentation. Patient continues on sedation of propofol and will continue. Chest x-ray today shows basilar atelectasis, may be associated effusion and to correlate to exclude pneumonia. Per nursing staff there has been minimal NG tube output and of note on the x-ray the distal tip of the NG tube is obscured although unable to fully see as there is overlying artifacts with the telemetry monitoring and the patient is rotated. Patient is also having hypoglycemic events and was started on dextrose. Surgery plans for TPN for nutritional support. Family at the bedside today and their questions and concerns were answered. 11/02/2021 Patient evaluated today in the ICU he is postoperative day #3 for partial gastrectomy, currently intubated with an FiO2 of 30% with a PEEP of 5. Current oxygen saturations are 99 to 100%. Blood pressures 119/61, respirations 28, heart rate 107, afebrile. Chest x-ray today shows a stable chest with pleural effusion unchanged, perihilar and basilar infiltrates persist. Per nurse about 500 mLs output from NG tube in the last 12 hours. Continues on IV lasix, TPN, IV zosyn. Pressor support and propfol are currently on hold. Blood pressures are maintaining 120s systolic, heart rate 113 sinus tachycardia, afebrile, respirations 27. Patient with indwelling catheter, urine is dark susana, per nurse no BM since surgery, bowels are absent left lower quadrant, hypoactive to the right quadrant. Labs today show white count 6, hemoglobin 8.6, sodium 142, potassium 3.9, chloride 124, CO2 15, BUN 41, creatinine 1.39, blood glucose in the 80s, calcium 7.2, total bili 1.7, AST 145, ALT 59. Patient is being followed closely by pulmonary, cardiology, and surgical services. 11/03/2021 Patient evaluated today and closely monitored in ICU remains in critical condition. Patient's been off sedation for 24 hours. He is currently spontaneous eye opening, eyes are tracking however he does not move his face, not following motor commands unable to wiggle fingers. Once patient is more a lert may tolerate extubation. He continues to be vented, Fi02 30% with a PEEP of 5 his current oxygen saturation 96%, blood pressure 112/74, heart rate sinus tachycardic in the low 100's, he has been afebrile. Patient has been in a negative fluid balance with -1.8 Liters in the last 24 hours and received 3 doses of IV lasix which is now discontinued. Bowel sounds are hypoactive, abdominal binder in place with dressings intact to midline incision, no bowel movements or passing gas as reported by RN. Creatinine slightly increased today to 1.44, BUN 37. No white count, hemoglobin stable at 8.2, platelets decreased to 40's for the last 2 days, heparin was discontinued, continues with SCD's. Liver enzymes stable from yesterday. Continues on D10 infusion, TPN, maintaining blood pressures off pressor support. Continues on IV zosyn. Chest xray today shows unchanged pleural effusion. Patient remains in the ICU followed closely by pulmonary, cardiology, and surgical services in critical condition. Code status was changed to DNR by family. 11/04/2021 Patient evaluated today in the intensive care unit, he is more alert than yesterday. Per RN patient had a large bowel movement today and bowels are hypoactive today in all quadrants. BM was a maroon color per nurse. Abdominal binder in place. Continues with rivas catheter with over 3L of urine output in the last 24 hours, still with peripheral edema. IV lasix 60 mg x1 was given today. NGT remains in place with only 50 mLs of output overnight. Patient remains off sedation, remains off pressor support. Blood pressure today 115/69, heart rate 106, low grade fever this morning 99.2 axillary, and patient was extubated mid morning is on a 15 L HF cannula. Chest xray this morning shows stable bilateral consolidation and pleural effusion. Remains on D10 gtt at 20 mLs per hour, TPN/Lipids, and IV zosyn. Patient also received potassium suppl ementation today. Followed closely by multiple consultations including cardiology, pulmonary, and surgery and remains in guarded condition. Labs reviewed: sodium 135, potassium 3.2, chloride 120, CO2 20, BUN 45, creat 1.26, blood glucose in the 110's, AST 81, ALT and alk phos have normalized. 11/05/2021 Patient is seen and evaluated in follow-up continues to be in the ICU under close monitoring. Patient was recently extubated and continues on 5 L high flow nasal cannula and oxygen saturations have been 97-100%. Multiple medical consultations including pulmonary pressure tank operator and surgery following closely. Chest x-ray today shows removal of endotracheal tube along with NG tube and central venous catheter on the right remains in place with no evident pneumothorax and to correlate for pneumonia, congestive heart failure, possible effusions and associated atelectasis versus edema. Patient did receive a dose of IV Lasix yesterday. Neurology consulted and CT of the brain without contrast ordered to assess mentation which is currently pending. Patient is continued on D10 and water and maintaining blood sugars in the 120s and will continue current regimen. Hemoglobin is 7.7 today with no bleeding noted. Platelets on the lower side at 65 although improved from previous and will continue to monitor closely with repeat labs in the morning. Patient also continues on IV Zosyn and will continue at this time. 11/06/2021 Patient is seen in follow-up continues to be in the ICU with multiple medical consultations following. Patient was evaluated by neurology and EEG was ordered and pending. Patient underwent CT of the brain which showed no acute abnormality noted. Patient also had chest x-ray today which shows no significant interval change compared to yesterday with continued questionable pulmonary infiltration at the mid to lower lung zones and there is some congested pulmonary vasculature with bilateral pleural effusions. Patient had been receiving one-time doses of IV Lasix daily and will add scheduled 40 mg IV Lasix and recommend repeat labs and follow-up chest x-ray. Patient is tolerating 3 L high flow via nasal cannula and maintaining oxygen saturations above 97%. Patient continues with significant weakness and PT/OT therapy consulted to follow the patient daily. Patient noted to have increased output noted in the NG tube and general surgery following an plan is for CT abdomen with contrast this afternoon. Will await report. Continues to be nothing by mouth on TPN and will continue for now. 11/07/2021 Patient is seen and continues to be closely monitored in the ICU. Patient underwent CT abdomen and pelvis which shows some resolution of the previously seen gastric pneumatosis with mild wall thickening of the stomach with questionable minimal residual pneumatosis of the second and third part of the duodenum. There is noted 3 flow of the ingested oral contrast on the ileocecal junction with no evidence of contrast leak. There are slightly dilated small bowel loops measuring 3.3 cm with no definite transition point which may suggest an element of ileus. There is some diffuse bowel thickening of the diana nonspecific and fluid-filled colon with thickened wall that may suggest colitis. Also some moderate amount of free abdominal and pelvic fluid with peritoneal fat stranding and most probably related to postoperative changes although peritonitis cannot be excluded. There is a 2.8 cm gallbladder stone with no gallbladder wall thickening or gross signs of acute cholecystitis with no definite intrahepatic focal lesions identified. And there is some bilateral nasal pleural effusions and subsegmental pulmonary atelectasis demonstrating air bronchogram within. Patient is not currently on antibiotics and patient is afebrile. WBC is 8.4, hemoglobin is 7.9, BMP is noted and magnesium is 2.4, triglycerides found to be elevated at 256. Multiple medical consultations following and will continue to follow closely. All intake of fluids have been decreased to 70 mL per hour including TPN. Recommend follow-up chest x-ray in the morning. Nursing staff reports to a bowel movement yesterday although none today. 11/08/2021 Patient continues to be in the ICU being closely monitored. Patient to continue with NG tube as patient continues to have large amounts of output noted in the container. Patient did have a bowel movement yesterday along with today per nursing staff. Patient having some low-grade temps with T-max 101.5 and IV antibiotics in the form of Zosyn have been resumed. Patient continues on TPN and is currently nothing by mouth with NG tube continued. Patient currently receiving chest physiotherapy for continued secretions noted that patient is unable to expectorate. Would encourage incentive spirometer although patient is unable to perform. Duo nebs and updrafts also ordered. Recommend blood, sputum, and urine cultures which are currently pending. Recommend repeat labs. Chest x-ray is ordered. Review of systems: Unable to obtain as patient is nonverbal and encephalopathic Active Medications Albuterol/Ipratropium (Ipratropium-Albuterol 3 Ml Neb) 3 ml INHALATION RT-TID [facility] Last Admin: 11/08/21 12:58 Dose: Not Given Documented by: Enoxaparin Sodium (Enoxaparin 40 Mg/0.4 Ml Syringe) 40 mg SQ DAILY [facility] Last Admin: 11/08/21 09:00 Dose: 40 mg Documented by: Furosemide (Furosemide 10 Mg/Ml 4 Ml Vial) 40 mg IV DAILY [facility] Last Admin: 11/08/21 08:59 Dose: 40 mg Documented by: Hydromorphone HCl (Hydromorphone 0.5 Mg/0.5 Ml Syringe) 0.5 mg IVP Q3HR PRN PRN Reason: Pain Fat Emulsion Intravenous (Lipids 20%) 500 mls @ 41.667 mls/hr IV Mo [facility] Last Admin: 11/04/21 12:37 Dose: 41.667 mls/hr Documented by: Potassium Acetate 30 meq/Calcium Gluconate 1 gm/Potassium Phosphate 6 mmol/Amino Acids/Dextrose 1,027 mls @ 70 mls/hr IV .BY DURATION [facility] Last Admin: 11/07/21 21:40 Dose: 70 mls/hr Documented by: Parenteral Vitamin Supplement 10 ml/ Zinc/Copper/Manganese/Selenium 1 ml/ Potassium Acetate 30 meq/ Calcium Gluconate 1 gm/ Potassium Phosphate 6 mmol/ Amino Acids/Dextrose 1,038 mls @ 70 mls/hr IV .BY DURATION [facility] Last Admin: 11/08/21 12:18 Dose: 70 mls/hr Documented by: Acetaminophen 1,000 mg/ IV (Solution) 100 mls @ 400 mls/hr IVPB Q6HR PRN PRN Reason: Fever and/ or Pain Stop: 11/09/21 06:14 Last Admin: 11/08/21 09:00 Dose: 400 mls/hr Documented by: Piperacillin Sod/Tazobactam (Sod 3.375 gm/ Sodium Chloride) 100 mls @ 25 mls/hr IVPB Q8HR [facility]; Protocol Last Admin: 11/08/21 10:23 Dose: 25 mls/hr Documented by: Metoclopramide HCl (Metoclopramide 5 Mg/Ml 2 Ml Vial) 10 mg IVP Q6HR [facility] Last Admin: 11/08/21 12:17 Dose: 10 mg Documented by: Miscellaneous Information (Potassium Replacement Protocol 1 Each Misc) 1 each MISCELLANE DAILY PRN; Protocol PRN Reason: Per Protocol Nystatin (Nystatin 100,000 Unit/Gm Powd 15 Gm) 1 applic TOPICAL DAILY PRN; Protocol PRN Reason: Rash Ondansetron HCl (Ondansetron 4 Mg/2 Ml Vial) 4 mg IVP Q8HR PRN PRN Reason: Nausea And Vomiting Last Admin: 10/30/21 09:30 Dose: 4 mg Documented by: Pantoprazole Sodium (Pantoprazole 40 Mg/10 Ml Vial) 40 mg IVP BID [facility] Last Admin: 11/08/21 08:59 Dose: 40 mg Documented by: PHYSICAL EXAMINATION: GENERAL: Patient is 51-year-old male who is autistic and mumbling although not making coherent words, alert with spontaneous eye tracking. Appears more alert today HEENT: Pupils are round and equally reacting to light. EOMI. No scleral icterus. No conjunctival pallor. Normocephalic, atraumatic. No pharyngeal erythema. No thyromegaly. Eyes are tracking. CARDIOVASCULAR: S1 and S2 muffled PULMONARY: Diminished breath sounds bilaterally with some scattered crackles and rhonchi noted, unable to expectorate the increased secretions noted and currently receiving chest physiotherapy during exam ABDOMEN: Bowel sounds noted in all quadrants today. MUSCULOSKELETAL: No joint swelling or deformity. EXTREMITIES: No cyanosis, clubbing, generalized peripheral edema noted. Right upper and lower extremity cool to the touch NEUROLOGICAL: Encephalopathic, unable to completely assess, not following commands SKIN: No rashes. Assessment: -Sepsis, present on admission possibly secondary to ischemia of the lateral portion of the stomach and mild ischemia of the proximal jejunum -Post operative day #7 partial gastrectomy for ischemic stomach and also had ischemic ileum. -Septic shock status postoperatively, improved -Elevated liver enzymes most probably due to hepatic congestion from fluid overload state -Anion gap metabolic acidosis secondary to lactic acidosis which improved, acidosis secondary to hyperchloremia -Hypokalemia, improved -Acute renal failure secondary to acute blood loss from septic shock, improving -Syncope with loss of consciousness, hypotensive secondary to above, blood pressures have stabilized off pressor support -History of CVA TIA -History diabetes mellitus type 2, uncontrolled at this time, now currently stable -History of hypertension, hypotensive on admission with a blood pressure in the 70s, holding off on antihypertensive medications. Patient is now maintaining blood pressures off pressor support. -History of autism -History of intellectual impairment -GI Prophylaxis Protonix -DVT Prophylaxis Subcu heparin -NO CODE Plan: Recommend to continue with ICU management and close monitoring. Patient having low-grade temps and IV antibiotics resumed and patient will continue on Zosyn with urine, blood, sputum cultures pending. Patient having increased secretions and increased output noted in the NG tube and will continue with NG tube for now and patient to remain nothing by mouth with TPN at this time. Chest x-ray also ordered and pending. Mentation is about the same and patient is awake with family members at the bedside during exam. Patient currently receiving chest physiotherapy as patient is unable to handle incentive spirometer and unable to expectorate increased secretions noted. Nursing performing continuous suctioning of the secretions. Case management and social work following as patient will likely need ECF for continued rehab as patient is extremely weak. PT/OT to work with the patient daily. Patient is currently maintained on 3 L high flow nasal cannula with oxygen saturations of 97-100%. Patient continues to be in critical condition with guarded prognosis. Patient remains off pressor support with stable blood pressures, and recommend to continue monitoring closely.Recommend repeat labs and continue with ICU monitoring at this time. Overall prognosis is guarded. The impression and plan of care has been dictated by Rozina Nam, nurse practitioner as directed. Dr. John MD I have performed a history and examination and MDM of this patient, discussed the same with the dictator, and agree with the dictator's assessment and plan as written ,documented as a scribe. Based on total visit time, I have performed more than 50% of the visit. Total number of minutes spent on this visit, 20 minutes. Any additional findings or plans will be noted. Objective - Vital Signs Vital signs: Vital Signs Temp 97.7 F 11/08/21 04:00 Pulse 104 H 11/08/21 07:00 Resp 36 H 11/08/21 07:00 BP 136/65 11/08/21 07:00 Pulse Ox 92 L 11/08/21 07:00 Intake & Output 11/07/21 11/08/21 11/08/21 18:59 06:59 18:59 Intake Total 913 2079.667 83 Output Total 3090 1935 45 Balance -2177 144.667 38 Weight 84.5 kg Intake: IV 913 416 13 Potassium Acetate 30 meq 770 70 Calcium Gluconate 1 gm Potassium Phosphate 6 mmol In Amino Acids 5 %/ Dextrose 20 % 1,000 ml @ 70 mls/hr IV .BY DURATION [facility] Rx#:[id number] Potassium Chloride 10 meq 200 In Water For Injection 1 100ml.bag @ 100 mls/hr IVPB Q1H [facility] Rx#: [id number] Pressure Bag 33 36 3 Sodium Chloride 0.9% 1, 110 110 10 000 ml @ 20 mls/hr IV . Q24H [facility] Rx#:[id number] Intake, IV Titration 893.667 Amount Potassium Acetate 30 meq 893.667 Calcium Gluconate 1 gm Potassium Phosphate 6 mmol In Amino Acids 5 %/ Dextrose 20 % 1,000 ml @ 70 mls/hr IV .BY DURATION [facility] Rx#:[id number] TPN/PPN 770 70 Potassium Acetate 30 meq 770 70 Calcium Gluconate 1 gm Potassium Phosphate 6 mmol In Amino Acids 5 %/ Dextrose 20 % 1,000 ml @ 70 mls/hr IV .BY DURATION [facility] Rx#:[id number] Output: Gastric Drainage 550 1350 Urine 2540 585 45 Other: Voiding Method Indwelling Catheter Indwelling Catheter ABP, PAP, CO, CI - Last Documented Arterial Blood Pressure 106/68 - Labs CBC & Chem 7: 11/08/21 04:00 11/08/21 04:00 Labs: Abnormal Lab Results - Last 24 Hours (Table) 11/07/21 11/07/21 11/07/21 Range/Units 05:30 05:30 13:10 RBC 2.99 L (4.30-5.90) m/uL Hgb 7.9 L (13.0-17.5) gm/dL Hct 25.0 L (39.0-53.0) % RDW 17.0 H (11.5-15.5) % Chloride (98-107) mmol/L BUN (9-20) mg/dL Glucose (74-99) mg/dL POC Glucose (mg/dL) 136 H (75-99) mg/dL Calcium (8.4-10.2) mg/dL Total Bilirubin (0.2-1.3) mg/dL AST (17-59) U/L ALT (4-49) U/L Alkaline Phosphatase (38-126) U/L Total Protein (6.3-8.2) g/dL Albumin (3.5-5.0) g/dL Triglycerides 256.00 H (0.00-149.00) mg/dL 11/07/21 11/07/21 11/07/21 Range/Units 15:57 20:18 23:43 RBC (4.30-5.90) m/uL Hgb (13.0-17.5) gm/dL Hct (39.0-53.0) % RDW (11.5-15.5) % Chloride (98-107) mmol/L BUN (9-20) mg/dL Glucose (74-99) mg/dL POC Glucose (mg/dL) 134 H 148 H 142 H (75-99) mg/dL Calcium (8.4-10.2) mg/dL Total Bilirubin (0.2-1.3) mg/dL AST (17-59) U/L ALT (4-49) U/L Alkaline Phosphatase (38-126) U/L Total Protein (6.3-8.2) g/dL Albumin (3.5-5.0) g/dL Triglycerides (0.00-149.00) mg/dL 11/08/21 11/08/21 11/08/21 Range/Units 04:00 04:00 08:07 RBC 2.78 L (4.30-5.90) m/uL Hgb 7.2 L (13.0-17.5) gm/dL Hct 23.0 L (39.0-53.0) % RDW 17.4 H (11.5-15.5) % Chloride 114 H (98-107) mmol/L BUN 24 H (9-20) mg/dL Glucose 137 H (74-99) mg/dL POC Glucose (mg/dL) 140 H (75-99) mg/dL Calcium 7.6 L (8.4-10.2) mg/dL Total Bilirubin 2.8 H (0.2-1.3) mg/dL AST 79 H (17-59) U/L ALT 67 H (4-49) U/L Alkaline Phosphatase 204 H (38-126) U/L Total Protein 5.2 L (6.3-8.2) g/dL Albumin 2.1 L (3.5-5.0) g/dL Triglycerides (0.00-149.00) mg/dL
--- NOTE | 2021-11-08 15:43 | XR ---
EXAMINATION TYPE: XR chest 1V portable DATE OF EXAM: 11/08/2021 COMPARISON: Chest x-ray 11/08/2021 at earlier time HISTORY: NG tube placement TECHNIQUE: Single frontal view of the chest is obtained. FINDINGS: There has been repositioning of NG tube, tube is coursing towards the right upper quadrant . No other significant interval change. There are overlying sheldon. IMPRESSION: NG tube is coursing towards the right upper quadrant.
[2021-11-08 16:10] LABS: Glucose,Whole Blood 156 mg/dL (75-99)
[2021-11-08 20:06] LABS: Glucose,Whole Blood 160 mg/dL (75-99)
[2021-11-08 23:44] LABS: Glucose,Whole Blood 149 mg/dL (75-99)
[2021-11-09] MEDS: [UNRECOGNIZED DRUG - OTHER] IV SCH ×6 (02:03)
[2021-11-09] MEDS: CALCIUM GLUCONATE IV SCH ×12 (02:03→15:20)
[2021-11-09] MEDS: POTASSIUM ACETATE IV SCH ×12 (02:03→15:20)
[2021-11-09] MEDS: POTASSIUM PHOSPHATE IV SCH ×12 (02:03→15:20)
[2021-11-09 04:27] LABS: Anisocytosis Slight; HCT 22.5 % (39.0-53.0); Hypochromasia Marked; MCH 25.8 pg (25.0-35.0); MCHC 30.9 g/dL (31.0-37.0); MCV 83.5 fL (80.0-100.0); Mean Platelet Volume 9.2; Platelet Count 363 k/uL (150-450); RDW 17.8 % (11.5-15.5); WBC 7.7 k/uL (3.8-10.6)
[2021-11-09 04:40] LABS: ALT 55 U/L (4-49); AST 61 U/L (17-59); African American GFR (CKD) >90 (>60 ml/min/1.73 sqM); Alkaline Phosphatase 148 U/L (38-126); Anion Gap 1 mmol/L; Blood Urea Nitrogen 23 mg/dL (9-20); Calcium 7.8 mg/dL (8.4-10.2); Carbon Dioxide 26 mmol/L (22-30); Chloride 115 mmol/L (98-107); Glucose 161 mg/dL (74-99); Non-African American GFR(CKD) >90 (>60 ml/min/1.73 sqM); Phosphorus 3.5 mg/dL (2.5-4.5); Potassium 3.6 mmol/L (3.5-5.1); Sodium 142 mmol/L (137-145); Total Bilirubin 2.5 mg/dL (0.2-1.3); Total Protein 5.2 g/dL (6.3-8.2)
[2021-11-09] MEDS: POTASSIUM CHLORIDE 10 MEQ in WATER FOR INJECTION 1 100ML.BAG IVPB SCH ×2 (05:30→06:49)
[2021-11-09] MEDS: METOCLOPRAMIDE 5 MG/ML 2 ML VIAL IVP SCH ×4 (05:31→23:18)
[2021-11-09] MEDS: IPRATROPIUM-ALBUTEROL 3 ML NEB INHALATION SCH ×3 (07:18→20:33)
[2021-11-09] MEDS: PIPERACILLIN-TAZOBACTAM 3.375 GM in SODIUM CHLORIDE 0.9% 100 ML IVPB SCH ×3 (08:22→23:18)
[2021-11-09] MEDS: ENOXAPARIN 40 MG/0.4 ML SYRINGE SQ SCH (08:24)
[2021-11-09] MEDS: PANTOPRAZOLE 40 MG/10 ML VIAL IVP SCH ×2 (08:25→20:04)
[2021-11-09] MEDS: FUROSEMIDE 10 MG/ML 4 ML VIAL IV SCH (08:25)
[2021-11-09 08:42] LABS: Glucose,Whole Blood 157 mg/dL (75-99)
--- NOTE | 2021-11-09 10:51 | P.PN ---
Subjective Progress Note Date: 11/09/21 Principal diagnosis: Respiratory failure. On 11/01/2021, the patient remains intubated on a mechanical ventilator. The patient's condition remains critical and the patient developed septic shock and multisystem organ failure due to GI complications/acute abdomen. The patient is post partial gastrectomy and the patient is postop day #2. On today's evaluation, the patient remains on a mechanical ventilator and the patient is still sedated with propofol. Propofol residing at 50 mcg/kg per minute. The patient is quite stiff is a mechanical ventilator and the patient is an assist- control at the rate of 28 with a tidal volume of 450, FiO2 60% with a PEEP of 5. The patient has a pH of 7.3 and I attribute to 29 and pO2 of 174. Chest x-ray showing development of a left lower lobe pulmonary infiltrates/atelectasis/effusion. ET tube was in a good location. NG tube is a lso has a good location. Meanwhile, the patient continues to be aggressively resuscitated IV fluids. Overall fluid balance over the past 24 hours has been +5.5 L the patient received several fluid boluses. The patient has dropped the lactic acid level down to 0.1. Norepinephrine infusion is also being weaned down to 0.4 mg/kg per minute and vasopressin is at 0.03 units per minute. As such, there has been some improvement in the pressors requirements nontender the patient norepinephrine infusion was as high as 1 mcg/kg per minute. Meanwhile, the patient is developing episodes of hypoglycemia. Blood sugar is at 151. Currently he is on D5 minimal white discharge in the D10. We'll also consider possibility of starting the patient on TPN for nutritional support special with ongoing episodes of hypoglycemia. The patient is afebrile. The white second attempt 0.4 with a hemoglobin of 9.7 and a platelet count of 79 sodium is at 144 with a potassium of 4.4, serum bicarbonate of 11 degenerative 47 with a creatinine of 2.1. Cultures of been all negative thus far. Baseline serum cristhian isol level at 23. TSH 00.8. NG tube is in place and output is minimal and there is no signs of any upper GI bleeding at this point in time. Surgical wound site is dry clean and intact. 11/02/2021, I'm seeing the patient postop day #3. The patient seems to be more stable compared to yesterday. Noted the patient had an extensive surgery which included a partial gastrectomy. Postop, the patient developed hypotension/shock/multisystem organ failure. He has a more stable condition on today's evaluation. He is on assist-control mode rate of 28, tidal volume of 450, FiO2 of 30% and a PEEP of 5. The blood gas showed a pH of 7.32 with a pCO2 of 31 and pO2 of 184. Since space planner at 2 AM, the patient was also taken off the vasopressin drip and the patient was taken off the norepinephrine drip. Chest x-ray showing pulmonary vascular congestion and some edema in addition to development of a left-sided pleural effusion. ET tube remains in a good location. Despite his fluid overload, the patient's is oxygenating adequately. Input output balance is +5.5 L over the past 24 hours. The NG tube output has been 500 mL of gastric material over the past 12 hours. The patient also on TPN running at 30 mL an hour. Bowel sounds are absent. Surgical wound sites are clean and intact. Patient has adequate pulses in all 4 extremities. Urine output is adequate and the creatinine is down to 1.39 with a BUN of 41 and a sodium level of 142. The patient is afebrile. The patient is hemodynamically stable. The patient is also off the D10 infusion. No further episodes of hypoglycemia this point in time. 11/03/2021, the patient is postop day #4. Hemodynamically stable on no pre ssors. He remains on a mechanical ventilator. Propofol was discontinued yesterday. The patient is grimacing to painful stimulation. He is not following commands yet. He is opening up his eyes. I think there is some neurologic recovery although the patient may still be encephalopathic due to sh ock. In the rate, the patient remains nothing by mouth. The NG tube is in place and the output has been in the order of 800 mL over the past 24 hours. Hypoactive bowel sounds. No bowel movement activity or flatus yet. Input output balance is -1.8 L. The patient remains on TPN for nutritional support rate of 65 mL an hour. In view of underlying episodes of hypoglycemia, the patient was also placed on D10 at the rate of 20 mL an hour. Blood sugars are still lower and soft. The patient is producing adequate amount of urine output. Creatinine is at 1.44 with BUN of 37. IV fluids was cut down to KVO. Lasix was given yesterday and another dose of Lasix will be given today. He will be given 4 mg IV push 1. Chest x-rays done today shows a left-sided pleural effusion. ET tube is in a good location. OG tube is in a good location. No other acute abnormalities. The patient remains on a mechanical ventilator today and an assist-control mode at the rate of 28 with a tidal volume of 450 and FiO2 of 30% with a PEEP of 5. The blood gases from today shows a pH of 7.39 with a pCO2 of 32 and pO2 of 119. Meanwhile, the patient has good weaning parameters. Unable to extubated the patient has not had adequate level of alertness. His weaning parameters seem to be good and should be able to tolerate a spontaneous breathing trial without any issues. Progress note dated 11/04/2021. This is a 51-year-old male, who was admitted to the hospital on October 29. The patient came in with syncope, nausea vomiting, and low blood pressure. The patient came to the intensive care unit, on October 30. He was intubated on that same day, having had a partial gastrectomy. Today's postop day #5. The patient is a DO NOT RESUSCITATE patient. He remains on mechanical ventilator. He is on the volume assist control mode, rate 28, tidal volume 450, FiO2 30%, PEEP of 5. Blood gases show pO2 112, pCO2 29, and pH is 7.45. The patient's on D10, at 20 mL an hour, and TPN at 65 mL an hour. The patient will get Lasix 60 mg IV push today. We will attempt a daily interruption of sedation, and a spontaneous breathing trial. Sodium 145, potassium 3.2, chlorides 120, CO2 20, anion gap 5, BUN 45, and creatinine 1.26. There was no CBC today. Albumin is 1.6. Microbiology is negative. Chest x-ray shows stable bilateral consolidations and small effusions. Weaning parameters today, were reasonable. The rapid shallow breathing index was 72. He did have a cuff leak. He will be given a trial of extubation. Progress note dated 11/05/2021. This is a 51-year-old male, who is again seen in room 255. He was admitted to the hospital on October 29. He came in with syncope, nausea, vomiting, and low blood pressure. He came to the intensive care unit one day later on October 30. He was intubated on that same day, having had a partial gastrectomy. Today is postop day #6. Yesterday, he was on the ventilator. We did do a daily interruption of sedation, and worse able to extubate him yesterday. He is a DO NOT RESUSCITATE patient. Currently, he's on 5 L nasal cannula. He's getting D1 0 at 20 mL an hour, TPN is running at 98 mL an hour, and saline at 10 mL an hour. White count 7.5, hemoglobin 7.7, hematocrit 23.9, and platelet count 65,000. Sodium 144, potassium 3.5, chlorides 119, CO2 23, anion gap 2, BUN 40, creatinine 1.06. Blood cultures, currently negative. Chest x-ray shows bilateral consolidations and small effusions. The chest x-ray is a bit worse today, likely because the patient is not on positive pressure ventilation. Progress note dated 11/06/2021. This is a 51-year-old male, again seen in room 255. He was admitted to the hospital on October 29. He came in with syncope, nausea, vomiting, and hypotension. The patient came to the intensive care unit, one day later on 10/30/2021. The patient underwent partial gastrectomy on that day, and is been intubated up until a few days ago. Today is postop day #7. The patient was extubated on November 04. The patient is currently on 2 L nasal cannula. He's getting TPN at 98 mL an hour, and saline at 10 mL an hour. In addition, he's on D10, at 20 mL an hour. The patient is very poorly responsive and basically just grunts. Likely his baseline mental status. White count 6.9, hemoglobin 8.1, hematocrit 27.1, and platelet count 127,000. Sodium 143, potassium 4.5, chloride 119, CO2 22, BUN 35, and creatinine 0.83. Magnesium is 2.7. Blood cultures are negative. Chest x-ray shows some diffuse bilateral infiltrates and bilateral pleural effusions, and the chest x-ray is largely unchanged. Progress note dated 11/07/2021. Progress note dated 11/07/2021. 51-year-old male, again seen in room 255. He was admitted to the hospital on October 29. He came in initially with syncope, nausea, vomiting, and hypotension. The patient was brought to the intensive care unit on 10/30/2021. On that same day, he underwent partial gastrectomy. The patient was intubated up until a few days ago. Today's postop day #8. The patient was extubated on November 04. Currently, he's on 2 L nasal cannula. He is receiving TPN at 70 mL an hour, and saline at 10 mL an hour. Current laboratory data includes a sodium 144, potassium 3.8, chlorides 116, CO2 24, anion gap 4, BUN 28, creatinine 0.82. Glucose 139. CT of the abdomen and pelvis shows postoperative changes, with interval resolution of the previously seen gastric and small bowel pneumatosis, as well as intrahepatic portal venous gas. The oral contrast can be seen passing down to the ileocecal junction without evidence of obstruction or leak. There is diffuse wall thickening of the stomach and small bowel. Progress note dated 11/08/2021. 51-year-old developmentally delayed male, seen again in room 255. The patient was admitted to the hospital on October 29. He initially was admitted with a diagnosis of syncope, nausea, vomiting, and hypotension. The patient was brought to the intensive care unit on October 30, and on the same day, underwent p artial gastrectomy. The patient is postop day #9. He was successfully extubated from the ventilator on November 04. Currently, he's on 2 L nasal cannula. He is getting TPN at 70 mL an hour. He is getting saline at 10 mL an hour. He is a DO NOT RESUSCITATE patient. He's had significant output from his NG tube which remains in place. He will get Lasix 40 mg IV push today. Laboratory data includes a white count 8.5, hemoglobin 7.2, hematocrit 23, and platelet count 285,000. Sodium 143, potassium 3.8, chlorides 114, CO2 25, BUN 24, and creatinine 0.91. AST is 79, ALT is 67. Albumin is 2.1. Microbiology is negative. Chest x-ray show some bibasilar atelectasis and possible small effusions. Overall x-ray pattern has improved. Progress note dated 11/09/2021. 51-year-old developmentally delayed male, again seen in room 255. The patient was admitted to the hospital on October 29. He was initially admitted with a diagnosis of syncope, nausea, vomiting, and hypotension. The patient was brought to the intensive care unit on October 30, and on the same day, underwent a partial gastrectomy. The patient is postop day #10. He was successfully extubated from mechanical ventilation on November 04. Currently he is on 3 L nasal cannula. He's getting TPN at 70 mL an hour. He is getting saline at 10 mL an hour. He continues on Zosyn. NG tube remains in place. The patient is a DO NOT RESUSCITATE patient. Over the last 24 hours, the patient has had more than 1 L of output from the NG tube. Labs today include a white count of 7.7, hemoglobin 7, hematocrit 22.5, and platelet count 363,000. Sodium 142, potassium 3.6, chlorides 1:15, CO2 26, anion gap 1, BUN 23, creatinine 0.76. Albumin is 2. Microbiologic studies are negative. Chest x-ray, for NG tube placement, shows that the NG tube is coursing towards the right upper quadrant. Objective - Vital Signs Vital signs: Vital Signs Temp 98.7 F 11/09/21 04:00 Pulse 84 11/09/21 07:29 Resp 12 11/09/21 07:00 BP 125/67 11/09/21 07:00 Pulse Ox 98 11/09/21 07:00 Intake & Output 11/08/21 11/09/21 11/09/21 18:59 06:59 18:59 Intake Total 2406 1070 180 Output Total 3520 1540 45 Balance -1114 -470 135 Weight 84.5 kg 80.7 kg Intake: IV 469 200 10 ACETAMINOPHEN IV (For NPO 100 ) 1,000 mg In Empty Bag 1 bag @ 400 mls/hr IVPB Q6HR PRN Rx#:[id number] Piperacillin-Tazobactam 3 200 100 .375 gm In Sodium Chloride 0.9% 100 ml @ 25 mls/hr IVPB Q8HR [facility] Rx# :[id number] Pressure Bag 39 Sodium Chloride 0.9% 1, 130 100 10 000 ml @ 20 mls/hr IV . Q24H [facility] Rx#:[id number] Intake, IV Titration 1027 100 100 Amount Potassium Acetate 30 meq 1027 Calcium Gluconate 1 gm Potassium Phosphate 6 mmol In Amino Acids 5 %/ Dextrose 20 % 1,000 ml @ 70 mls/hr IV .BY DURATION [facility] Rx#:[id number] Potassium Chloride 10 meq 100 100 In Water For Injection 1 100ml.bag @ 100 mls/hr IVPB Q1H [facility] Rx#: [id number] TPN/PPN 910 770 70 Mvi, Adult No.4 with Vit 560 770 70 K 10 ml Trace (Conc-1Ml/ Dose) 1 ml Potassium Acetate 30 meq Calcium Gluconate 1 gm Potassium Phosphate 6 mmol In Amino Acids 5 %/Dextrose 20 % 1,000 ml @ 70 mls/hr IV . BY DURATION [facility] Rx#: [id number] Potassium Acetate 30 meq 350 Calcium Gluconate 1 gm Potassium Phosphate 6 mmol In Amino Acids 5 %/ Dextrose 20 % 1,000 ml @ 70 mls/hr IV .BY DURATION [facility] Rx#:[id number] Output: Gastric Drainage 1900 1000 Urine 1620 540 45 Other: Voiding Method Indwelling Catheter Indwelling Catheter # Bowel Movements 1 ABP, PAP, CO, CI - Last Documented Arterial Blood Pressure 106/68 - Exam No acute distress, NG tube in place, with nasal cannula at 3 L/m. The patient basically just grunts. Saturations are 98%. HEENT examination is grossly unremarkable. Neck supple. Full range of motion. No adenopathy thyromegaly or neck vein distention. Cardiovascular examination reveals regular rhythm rate. S1-S2 normal. No S3 or S4. No discernible murmur noted. Heart sounds are distant. Heart rate 84 bpm. Lungs reveal mild scattered rhonchi. No wheezes or crackles. Breath sounds equal bilaterally. Saturations are 98% on 3 L Abdomen soft, without bowel sounds. Extremities are intact. No cyanosis or clubbing. Mild diffuse edema noted. Skin is without rash or lesion. Neurologic examination reveals a poorly responsive individual, on nasal cannula, with an NG tube in place. The patient appears more awake today than yesterday. - Labs CBC & Chem 7: 11/09/21 04:05 11/09/21 04:05 Labs: Abnormal Lab Results - Last 24 Hours (Table) 11/08/21 11/08/21 11/08/21 Range/Units 11:29 16:08 20:05 RBC (4.30-5.90) m/uL Hgb (13.0-17.5) gm/dL Hct (39.0-53.0) % MCHC (31.0-37.0) g/dL RDW (11.5-15.5) % Chloride (98-107) mmol/L BUN (9-20) mg/dL Glucose (74-99) mg/dL POC Glucose (mg/dL) 174 H 156 H 160 H (75-99) mg/dL Calcium (8.4-10.2) mg/dL Total Bilirubin (0.2-1.3) mg/dL AST (17-59) U/L ALT (4-49) U/L Alkaline Phosphatase (38-126) U/L Total Protein (6.3-8.2) g/dL Albumin (3.5-5.0) g/dL 11/08/21 11/09/21 11/09/21 Range/Units 23:42 04:05 04:05 RBC 2.70 L (4.30-5.90) m/uL Hgb 7.0 L (13.0-17.5) gm/dL Hct 22.5 L (39.0-53.0) % MCHC 30.9 L (31.0-37.0) g/dL RDW 17.8 H (11.5-15.5) % Chloride 115 H (98-107) mmol/L BUN 23 H (9-20) mg/dL Glucose 161 H (74-99) mg/dL POC Glucose (mg/dL) 149 H (75-99) mg/dL Calcium 7.8 L (8.4-10.2) mg/dL Total Bilirubin 2.5 H (0.2-1.3) mg/dL AST 61 H (17-59) U/L ALT 55 H (4-49) U/L Alkaline Phosphatase 148 H (38-126) U/L Total Protein 5.2 L (6.3-8.2) g/dL Albumin 2.0 L (3.5-5.0) g/dL 11/09/21 Range/Units 08:41 RBC (4.30-5.90) m/uL Hgb (13.0-17.5) gm/dL Hct (39.0-53.0) % MCHC (31.0-37.0) g/dL RDW (11.5-15.5) % Chloride (98-107) mmol/L BUN (9-20) mg/dL Glucose (74-99) mg/dL POC Glucose (mg/dL) 157 H (75-99) mg/dL Calcium (8.4-10.2) mg/dL Total Bilirubin (0.2-1.3) mg/dL AST (17-59) U/L ALT (4-49) U/L Alkaline Phosphatase (38-126) U/L Total Protein (6.3-8.2) g/dL Albumin (3.5-5.0) g/dL Microbiology - Last 24 Hours (Table) 11/08/21 09:00 Urine Culture - Preliminary Urine,Catheterized Assessment and Plan Assessment: Postop day #10, status post partial gastrectomy. Routine postoperative ventilator management, S/P extubation from mechanical ventilation, 11/04/2021. Septic shock, post gastric surgery, requiring fluids and vasopressors. Acute hypoxemic respiratory failure, status post intubation on 10/30/2021. Acute lactic acidosis, resolved. Acute kidney injury. History of CVA. Diabetes mellitus. History of hypertension. Developmental delay and autism. Episodic hypoglycemia. Plan: Plan dated 11/04/2021. The patient had reasonable weaning parameters. The rapid shallow breathing index was less than 80. The patient be given a trial of extubation. The patient continues on all appropriate medications. The patient does get Lasix 60 mg IV push prior to extubation. Additional recommendations and suggestions are forthcoming. The patient is a DO NOT RESUSCITATE patient. Post extubation, BiPAP can be employed if necessary. Labs, x-rays, and medications are all reviewed. We will continue to follow make recommendations where appropriate. Plan dated 11/05/2021. The patient was extubated yesterday. The patient remains on D10, and also TPN at 90 mL an hour. I've asked the nurse to try to get the patient to do incentive spirometry. The NG tube remains in place. Chest x-ray, labs, and medications are reviewed. The patient is a DO NOT RESUSCITATE patient. Patient remains on Zosyn. The patient's also getting GI prophylaxis with Protonix. Plan dated 11/06/2021. The patient was extubated from mechanical ventilation on November 04. The patient remains on TPN at 98 mL an hour. D10 will be discontinued. The patient's on 2- 3 L of nasal cannula. Microbiologic data is negative. Chest x-ray is unchanged. Respiratory status is slightly improved. The patient will receive Lasix 80 mg once a day, IV push. Additional recommendations and suggestions are forthcoming. Prognosis is very guarded. The patient is getting GI prophylaxis. Plan dated 11/07/2021. The patient was extubated from mechanical ventilation on November 04. He remains on TPN, and saline. The patient's mental status has not changed. CT of the abdomen and pelvis from November 06, is reviewed. The patient is still in my opinion too unstable to be transferred out of the intensive care unit. He is a DO NOT RESUSCITATE patient. The patient did receive Lasix IV push yesterday. No additional Lasix today. Labs, x-rays, and medications are reviewed. The patient remains on TPN. Blood cultures have remained negative. The patient's currently not on any antibiotics. Plan dated 11/08/2021. The patient was extubated from mechanical ventilation on November 04. He currently remains on O2 2 L, and TPN at 70 mL an hour. Today, his mental status seems worse. He seems less awake. Labs, x-rays, medications are reviewed. The patient will get Lasix 40 mg IV push 1 today. We will continue to follow. Microbiologic studies are negative. The patient's currently not on any antibiotics. Overall prognosis is certainly very guarded. Plan dated 11/09/2021. The patient was extubated from mechanical ventilation on November 04. He remains on 3 L of oxygen, and is receiving TPN at 70 mL an hour. The patient continues to have an NG tube in place. The patient is getting IV Zosyn. Chest x-rays reviewed. Culture data is negative. Labs, x-rays, and medications are all reviewed. Prognosis remains guarded. The patient could be considered for possible discharge to the general medical floor. The patient is a DO NOT RESUSCITATE patient. Time with Patient: Less than 30
[2021-11-09 11:49] LABS: Glucose,Whole Blood 158 mg/dL (75-99)
--- NOTE | 2021-11-09 11:58 | P.PN ---
Subjective Progress Note Date: 11/09/21 Principal diagnosis: Gastric ischemia 51-year-old male remains in the ICU. He was downgraded to a stepdown today. Nasogastric tube remains with high output. Does not appear to be in any significant pain. White blood cell count 7.7, hemoglobin 7.0. Objective - Vital Signs Vital signs: Vital Signs Temp 98.7 F 11/09/21 04:00 Pulse 84 11/09/21 07:29 Resp 12 11/09/21 07:00 BP 125/67 11/09/21 07:00 Pulse Ox 98 11/09/21 07:00 Intake & Output 11/08/21 11/09/21 11/09/21 18:59 06:59 18:59 Intake Total 2406 1070 180 Output Total 3520 1540 45 Balance -1114 -470 135 Weight 84.5 kg 80.7 kg Intake: IV 469 200 10 ACETAMINOPHEN IV (For NPO 100 ) 1,000 mg In Empty Bag 1 bag @ 400 mls/hr IVPB Q6HR PRN Rx#:[id number] Piperacillin-Tazobactam 3 200 100 .375 gm In Sodium Chloride 0.9% 100 ml @ 25 mls/hr IVPB Q8HR [facility] Rx# :[id number] Pressure Bag 39 Sodium Chloride 0.9% 1, 130 100 10 000 ml @ 20 mls/hr IV . Q24H [facility] Rx#:[id number] Intake, IV Titration 1027 100 100 Amount Potassium Acetate 30 meq 1027 Calcium Gluconate 1 gm Potassium Phosphate 6 mmol In Amino Acids 5 %/ Dextrose 20 % 1,000 ml @ 70 mls/hr IV .BY DURATION [facility] Rx#:[id number] Potassium Chloride 10 meq 100 100 In Water For Injection 1 100ml.bag @ 100 mls/hr IVPB Q1H [facility] Rx#: [id number] TPN/PPN 910 770 70 Mvi, Adult No.4 with Vit 560 770 70 K 10 ml Trace (Conc-1Ml/ Dose) 1 ml Potassium Acetate 30 meq Calcium Gluconate 1 gm Potassium Phosphate 6 mmol In Amino Acids 5 %/Dextrose 20 % 1,000 ml @ 70 mls/hr IV . BY DURATION [facility] Rx#: [id number] Potassium Acetate 30 meq 350 Calcium Gluconate 1 gm Potassium Phosphate 6 mmol In Amino Acids 5 %/ Dextrose 20 % 1,000 ml @ 70 mls/hr IV .BY DURATION [facility] Rx#:[id number] Output: Gastric Drainage 1900 1000 Urine 1620 540 45 Other: Voiding Method Indwelling Catheter Indwelling Catheter # Bowel Movements 1 ABP, PAP, CO, CI - Last Documented Arterial Blood Pressure 106/68 - Exam Abdomen: Soft, mild distention, mild incisional tenderness, incision clean and dry - Labs CBC & Chem 7: 11/09/21 04:05 11/09/21 04:05 Labs: Abnormal Lab Results - Last 24 Hours (Table) 11/08/21 11/08/21 11/08/21 Range/Units 16:08 20:05 23:42 RBC (4.30-5.90) m/uL Hgb (13.0-17.5) gm/dL Hct (39.0-53.0) % MCHC (31.0-37.0) g/dL RDW (11.5-15.5) % Chloride (98-107) mmol/L BUN (9-20) mg/dL Glucose (74-99) mg/dL POC Glucose (mg/dL) 156 H 160 H 149 H (75-99) mg/dL Calcium (8.4-10.2) mg/dL Total Bilirubin (0.2-1.3) mg/dL AST (17-59) U/L ALT (4-49) U/L Alkaline Phosphatase (38-126) U/L Total Protein (6.3-8.2) g/dL Albumin (3.5-5.0) g/dL 11/09/21 11/09/21 11/09/21 Range/Units 04:05 04:05 08:41 RBC 2.70 L (4.30-5.90) m/uL Hgb 7.0 L (13.0-17.5) gm/dL Hct 22.5 L (39.0-53.0) % MCHC 30.9 L (31.0-37.0) g/dL RDW 17.8 H (11.5-15.5) % Chloride 115 H (98-107) mmol/L BUN 23 H (9-20) mg/dL Glucose 161 H (74-99) mg/dL POC Glucose (mg/dL) 157 H (75-99) mg/dL Calcium 7.8 L (8.4-10.2) mg/dL Total Bilirubin 2.5 H (0.2-1.3) mg/dL AST 61 H (17-59) U/L ALT 55 H (4-49) U/L Alkaline Phosphatase 148 H (38-126) U/L Total Protein 5.2 L (6.3-8.2) g/dL Albumin 2.0 L (3.5-5.0) g/dL 11/09/21 Range/Units 11:47 RBC (4.30-5.90) m/uL Hgb (13.0-17.5) gm/dL Hct (39.0-53.0) % MCHC (31.0-37.0) g/dL RDW (11.5-15.5) % Chloride (98-107) mmol/L BUN (9-20) mg/dL Glucose (74-99) mg/dL POC Glucose (mg/dL) 158 H (75-99) mg/dL Calcium (8.4-10.2) mg/dL Total Bilirubin (0.2-1.3) mg/dL AST (17-59) U/L ALT (4-49) U/L Alkaline Phosphatase (38-126) U/L Total Protein (6.3-8.2) g/dL Albumin (3.5-5.0) g/dL Microbiology - Last 24 Hours (Table) 11/08/21 09:00 Urine Culture - Preliminary Urine,Catheterized Assessment and Plan (1) Sepsis Narrative/Plan: 51-year-old male remains in ICU after recent partial gastrectomy for gastric ischemia. Patient continues to have high nasogastric tube output. CAT scan from 11/06 shows ileus. Continue TPN and nothing by mouth status. Increase activity as tolerated. Current Visit: Yes Status: Acute Code(s): A41.9 - SEPSIS, UNSPECIFIED ORGANISM SNOMED Code(s): 94949859
[2021-11-09] MEDS: [UNRECOGNIZED DRUG - OTHER] IV SCH ×6 (15:20)
--- NOTE | 2021-11-09 20:23 | PN ---
PROGRESS NOTE DATE OF SERVICE: 11/09/2021 This 51-year-old gentleman who was admitted after ischemic stomach and stapling and sepsis is being closely monitored. The patient continues to be confused. Patient also had NG tube with some significant output. Recent CT scan not show acute abnormalities. Surgery is following the patient closely. The most recent chest x-ray which was reviewed personally by me showed some atelectasis and pleural effusion on the left side. Past medical history reviewed. REVIEW OF SYSTEMS: Could not be taken. CURRENT MEDICATIONS: Reviewed and include: Lovenox, lipids, TPN. Doses and other medications reviewed. PHYSICAL EXAMINATION: Pulse is 75, blood pressure 103/63, respiration 14. Oral mucosa moist. Neck is no jugular venous distention. Cardiovascular: S1, S2. Respiration: A few scattered rhonchi and crackles. Abdomen: Soft, status post surgery. Legs: No edema. No swelling. Nervous system could not be examined completely. LABS: Hemoglobin 7. Other labs are noted. ASSESSMENT: 1. Sepsis secondary to ischemic bowel and ischemia of the stoma. 2. Status post partial gastrectomy, ischemic stomach. 3. Septic shock. 4. Elevated LFTs. 5. On TPN. 6. Acute renal failure. RECOMMENDATIONS AND DISCUSSION: In this 51-year-old gentleman who was admitted with multiple complex medical issues, we will monitor the patient closely. Closely monitor, ice chips per surgery. Closely follow with surgery. Repeat labs. Ensure oxygenation. The patient is receiving Lasix and bronchodilators. We will continue to monitor. Further recommendations to follow. Continue with TPN. MMODL / IJN: [id number] /
[2021-11-09 20:43] LABS: Glucose,Whole Blood 136 mg/dL (75-99)
--- NOTE | 2021-11-10 00:20 | P.PN ---
Subjective Progress Note Date: 11/08/21 Patient was seen for a follow-up. Patient's caregivers brother and [id number] were present today. According to them, patient is doing better. He speaks a few words, tracks. Still encephalopathic. Patient earlier this morning had a temperature of 101.5. He had undergone blood culture, urine cultu re. Lactate is 1.4. The nurse was also present. When she requested, patient did speak "hi", "thank you". Patient was able to lift his arms, left more than right. Also crossed his legs. His speech is not back to his baseline. Overall he is doing better. Patient did receive 1 dose of Dilaudid 0.5 mg at 3 AM. Objective - Vital Signs Vital signs: Vital Signs Temp 98.7 F 11/09/21 04:00 Pulse 80 11/09/21 20:43 Resp 23 11/09/21 17:07 BP 113/64 11/09/21 13:00 Pulse Ox 96 11/09/21 13:00 Intake & Output 11/09/21 11/09/21 11/10/21 06:59 18:59 07:59 Intake Total 1070 940 Output Total 1540 3370 Balance -470 -2430 Weight 80.7 kg Intake: IV 200 310 Mvi, Adult No.4 with Vit 70 K 10 ml Trace (Conc-1Ml/ Dose) 1 ml Potassium Acetate 30 meq Calcium Gluconate 1 gm Potassium Phosphate 6 mmol In Amino Acids 5 %/Dextrose 20 % 1,000 ml @ 70 mls/hr IV . BY DURATION [facility] Rx#: [id number] Piperacillin-Tazobactam 3 100 200 .375 gm In Sodium Chloride 0.9% 100 ml @ 25 mls/hr IVPB Q8HR [facility] Rx# :[id number] Sodium Chloride 0.9% 1, 100 40 000 ml @ 20 mls/hr IV . Q24H [facility] Rx#:[id number] Intake, IV Titration 100 100 Amount Potassium Chloride 10 meq 100 100 In Water For Injection 1 100ml.bag @ 100 mls/hr IVPB Q1H [facility] Rx#: [id number] TPN/PPN 770 530 Mvi, Adult No.4 with Vit 770 530 K 10 ml Trace (Conc-1Ml/ Dose) 1 ml Potassium Acetate 30 meq Calcium Gluconate 1 gm Potassium Phosphate 6 mmol In Amino Acids 5 %/Dextrose 20 % 1,000 ml @ 70 mls/hr IV . BY DURATION [facility] Rx#: [id number] Output: Gastric Drainage 1000 Urine 540 3370 Stool 0 Other: Voiding Method Indwelling Catheter Indwelling Catheter ABP, PAP, CO, CI - Last Documented Arterial Blood Pressure 106/68 - Exam Patient is more alert and awake, still somewhat spacey, and also appears mildly encephalopathic, much better than yesterday. Patient able to speak some words on command, like "hi", "thank you". He is more interactive. He is using his legs much more easily. He crosses and then uncrosses his legs. Patient did use his left arm earlier and pulled the NG tube. His hand is slightly in a claw. Patient is keeping head more in a neutral position. Gaze is midline. Extraocular muscles are intact. Face is symmetric. Pupils are round and reacting. Patient not able to move his arms or hands. He is able to wiggle his feet/toes a little. Reflexes are (right/left) biceps 1/2, brachioradialis trace/1, knee 2/1+, plantars are downgoing. On checking plantars, patient would hold the toes flexed fairly strongly down. He would do it less significantly on the left. Patient has significant peripheral edema, better than yesterday . - Labs CBC & Chem 7: 11/09/21 04:05 11/09/21 04:05 Labs: Abnormal Lab Results - Last 24 Hours (Table) 11/09/21 11/09/21 11/09/21 Range/Units 04:05 04:05 08:41 RBC 2.70 L (4.30-5.90) m/uL Hgb 7.0 L (13.0-17.5) gm/dL Hct 22.5 L (39.0-53.0) % MCHC 30.9 L (31.0-37.0) g/dL RDW 17.8 H (11.5-15.5) % Chloride 115 H (98-107) mmol/L BUN 23 H (9-20) mg/dL Glucose 161 H (74-99) mg/dL POC Glucose (mg/dL) 157 H (75-99) mg/dL Calcium 7.8 L (8.4-10.2) mg/dL Total Bilirubin 2.5 H (0.2-1.3) mg/dL AST 61 H (17-59) U/L ALT 55 H (4-49) U/L Alkaline Phosphatase 148 H (38-126) U/L Total Protein 5.2 L (6.3-8.2) g/dL Albumin 2.0 L (3.5-5.0) g/dL 11/09/21 11/09/21 Range/Units 11:47 20:41 RBC (4.30-5.90) m/uL Hgb (13.0-17.5) gm/dL Hct (39.0-53.0) % MCHC (31.0-37.0) g/dL RDW (11.5-15.5) % Chloride (98-107) mmol/L BUN (9-20) mg/dL Glucose (74-99) mg/dL POC Glucose (mg/dL) 158 H 136 H (75-99) mg/dL Calcium (8.4-10.2) mg/dL Total Bilirubin (0.2-1.3) mg/dL AST (17-59) U/L ALT (4-49) U/L Alkaline Phosphatase (38-126) U/L Total Protein (6.3-8.2) g/dL Albumin (3.5-5.0) g/dL Microbiology - Last 24 Hours (Table) 11/08/21 09:00 Urine Culture - Final Urine,Catheterized 11/08/21 09:54 Blood Culture - Preliminary Blood No Growth after 24 hours Assessment and Plan Assessment: * Altered mental status, likely due to toxic metabolic encephalopathy. * Generalized weakness, possible due to encephalopathy. Patient's reflexes are present, no evidence of polyneuropathy. No definitive evidence of myelopathy. 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 * Status post septic shock. * Status post acute kidney injury, improved * Episode of hypoglycemia 36 mg/dL) on 11/01/2021 At 12:20 AM. * Diabetes * Hypertension * Anemia * Developmental delay, autism and intellectual impairment. Plan: * Patient's encephalopathy has improved. He has started to speak more words, interacting much better and also showing some muscle movements. He is getting stronger. Hopefully he will further improve with time. * EEG 11/06/2021 revealed moderate background slowing consistent with encephalopathy. No epileptiform activity was seen. * Computed tomography scan of the head showed no acute process. * Repeat ammonia is normal <9. B12 > 2000, folate 10.9. TSH is normal. * Avoid any episodes of hypoglycemia. * Neurology will follow sporadically. Please call neurology if any other concerns. * Patient on Lovenox 40 mg subcu daily for DVT prophylaxis. SCDs have been removed. Patient more comfortable. * Discussed with patient's caregivers. * Dr. Oconnor will be available for neurology service on the weekend and Dr. Aldo Downey will resume neurology service on Thursday.
[2021-11-10] MEDS: METOCLOPRAMIDE 5 MG/ML 2 ML VIAL IVP SCH ×3 (05:34→20:26)
[2021-11-10] MEDS: POTASSIUM ACETATE IV SCH ×12 (05:34→20:26)
[2021-11-10] MEDS: POTASSIUM PHOSPHATE IV SCH ×12 (05:34→20:26)
[2021-11-10] MEDS: CALCIUM GLUCONATE IV SCH ×12 (05:34→20:26)
[2021-11-10] MEDS: [UNRECOGNIZED DRUG - OTHER] IV SCH ×12 (05:34→20:26)
[2021-11-10 05:49] LABS: Glucose,Whole Blood 138 mg/dL (75-99)
[2021-11-10 07:32] LABS: ALT 60 U/L (4-49); AST 71 U/L (17-59); African American GFR (CKD) >90 (>60 ml/min/1.73 sqM); Albumin 2.2 g/dL (3.5-5.0); Albumin/Globulin Ratio 0.6; Alkaline Phosphatase 195 U/L (38-126); Anion Gap 2 mmol/L; Blood Urea Nitrogen 23 mg/dL (9-20); Calcium 8.1 mg/dL (8.4-10.2); Carbon Dioxide 25 mmol/L (22-30); Chloride 114 mmol/L (98-107); Globulin 3.5 g/dL; Glucose 116 mg/dL (74-99); Magnesium 1.9 mg/dL (1.6-2.3); Non-African American GFR(CKD) >90 (>60 ml/min/1.73 sqM); Phosphorus 3.1 mg/dL (2.5-4.5); Potassium 4.1 mmol/L (3.5-5.1); Sodium 141 mmol/L (137-145); Total Bilirubin 2.6 mg/dL (0.2-1.3); Total Protein 5.7 g/dL (6.3-8.2)
[2021-11-10] MEDS: CHLORHEXIDINE GLUCONATE 15 ML CUP MUCOUS MEM SCH (07:49)
[2021-11-10] MEDS: IPRATROPIUM-ALBUTEROL 3 ML NEB INHALATION SCH ×3 (08:01→19:53)
[2021-11-10 09:28] LABS: HCT 24.7 % (39.6-50.0); HGB 7.2 g/dL (13.0-17.0); MCH 24.3 pg (27.0-32.0); MCHC 29.1 g/dL (32.0-37.0); MCV 83.4 fL (80.0-97.0); Mean Platelet Volume 11.8 fL (9.5-12.2); NRBC Per 100 WBC 0.4 /100 WBCS (0.0-0.0); Platelet Count 467 X 10*3/uL (140-440); RBC 2.96 X 10*6/uL (4.40-5.60); RDW 18.3 % (11.5-14.5); WBC 7.18 X 10*3/uL (4.50-10.00)
[2021-11-10 09:57] LABS: Basophils # (A) 0.05 X 10*3/uL (0.00-0.10); Basophils % (A) 0.7 %; Eosinophils # (A) 0.15 X 10*3/uL (0.04-0.35); Eosinophils % (A) 2.1 %; Immature Grans, Automated 2.8 %; Lymphocytes # (A) 1.03 X 10*3/uL (0.90-5.00); Lymphocytes % (A) 14.3 %; Monocytes # (A) 0.53 X 10*3/uL (0.20-1.00); Monocytes % (A) 7.4 %; Neutrophils # (A) 5.22 X 10*3/uL (1.80-7.70); Neutrophils % (A) 72.7 %
[2021-11-10] MEDS: PANTOPRAZOLE 40 MG/10 ML VIAL IVP SCH ×2 (10:18→20:26)
[2021-11-10] MEDS: HYDROmorphone 0.5 MG/0.5 ML SYRINGE IVP PRN ×2 (10:19→22:36)
[2021-11-10] MEDS: PIPERACILLIN-TAZOBACTAM 3.375 GM in SODIUM CHLORIDE 0.9% 100 ML IVPB SCH ×2 (10:19→17:01)
[2021-11-10] MEDS: FUROSEMIDE 10 MG/ML 4 ML VIAL IV SCH (10:19)
[2021-11-10] MEDS: ENOXAPARIN 40 MG/0.4 ML SYRINGE SQ SCH (10:20)
--- NOTE | 2021-11-10 12:01 | P.PN ---
Subjective Progress Note Date: 11/10/21 Principal diagnosis: Gastric ischemia Patient appears comfortable. Still with significant nasogastric tube output. No bowel movement. Has not been complaining of pain. Objective - Vital Signs Vital signs: Vital Signs Temp 97.1 F L 11/10/21 08:00 Pulse 84 11/10/21 11:49 Resp 17 11/10/21 08:00 BP 125/71 11/10/21 08:00 Pulse Ox 98 11/10/21 08:01 Intake & Output 11/09/21 11/10/21 11/10/21 17:59 06:59 18:59 Intake Total 100 Output Total 700 Balance -600 Intake: IV 100 Mvi, Adult No.4 with Vit K 10 ml Trace (Conc-1Ml/ Dose) 1 ml Potassium Acetate 30 meq Calcium Gluconate 1 gm Potassium Phosphate 6 mmol In Amino Acids 5 %/Dextrose 20 % 1,000 ml @ 70 mls/hr IV . BY DURATION [facility] Rx#: [id number] Piperacillin-Tazobactam 3 100 .375 gm In Sodium Chloride 0.9% 100 ml @ 25 mls/hr IVPB Q8HR [facility] Rx# :[id number] Sodium Chloride 0.9% 1, 000 ml @ 20 mls/hr IV . Q24H [facility] Rx#:[id number] Intake, IV Titration Amount Potassium Chloride 10 meq In Water For Injection 1 100ml.bag @ 100 mls/hr IVPB Q1H [facility] Rx#: [id number] TPN/PPN Mvi, Adult No.4 with Vit K 10 ml Trace (Conc-1Ml/ Dose) 1 ml Potassium Acetate 30 meq Calcium Gluconate 1 gm Potassium Phosphate 6 mmol In Amino Acids 5 %/Dextrose 20 % 1,000 ml @ 70 mls/hr IV . BY DURATION [facility] Rx#: [id number] Output: Gastric Drainage 250 Urine 450 Stool Other: Voiding Method Indwelling Catheter # Voids 1 # Bowel Movements 0 ABP, PAP, CO, CI - Last Documented Arterial Blood Pressure 106/68 - Exam Abdomen: Soft, mild distention, nontender, incision clean and dry - Labs CBC & Chem 7: 11/10/21 05:42 11/10/21 05:42 Labs: Abnormal Lab Results - Last 24 Hours (Table) 11/09/21 11/09/21 11/10/21 Range/Units 11:47 20:41 05:29 RBC (4.40-5.60) X 10*6/uL Hgb (13.0-17.0) g/dL Hct (39.6-50.0) % MCH (27.0-32.0) pg MCHC (32.0-37.0) g/dL RDW (11.5-14.5) % Plt Count (140-440) X 10*3/uL Plt Count Comment Absolute Nucleated RBC (0.00-0.00) X 10*3/uL Immature Gran # (0.00-0.04) X 10*3/uL NRBC/100 WBC Diff (0.0-0.0) /100 WBCS Chloride (98-107) mmol/L BUN (9-20) mg/dL Glucose (74-99) mg/dL POC Glucose (mg/dL) 158 H 136 H 138 H (75-99) mg/dL Calcium (8.4-10.2) mg/dL Total Bilirubin (0.2-1.3) mg/dL AST (17-59) U/L ALT (4-49) U/L Alkaline Phosphatase (38-126) U/L Total Protein (6.3-8.2) g/dL Albumin (3.5-5.0) g/dL 11/10/21 11/10/21 Range/Units 05:42 05:42 RBC 2.96 L (4.40-5.60) X 10*6/uL Hgb 7.2 L (13.0-17.0) g/dL Hct 24.7 L (39.6-50.0) % MCH 24.3 L (27.0-32.0) pg MCHC 29.1 L (32.0-37.0) g/dL RDW 18.3 H (11.5-14.5) % Plt Count 467 H (140-440) X 10*3/uL Plt Count Comment INCREASED A Absolute Nucleated RBC 0.03 H (0.00-0.00) X 10*3/uL Immature Gran # 0.20 H (0.00-0.04) X 10*3/uL NRBC/100 WBC Diff 0.4 H (0.0-0.0) /100 WBCS Chloride 114 H (98-107) mmol/L BUN 23 H (9-20) mg/dL Glucose 116 H (74-99) mg/dL POC Glucose (mg/dL) (75-99) mg/dL Calcium 8.1 L (8.4-10.2) mg/dL Total Bilirubin 2.6 H (0.2-1.3) mg/dL AST 71 H (17-59) U/L ALT 60 H (4-49) U/L Alkaline Phosphatase 195 H (38-126) U/L Total Protein 5.7 L (6.3-8.2) g/dL Albumin 2.2 L (3.5-5.0) g/dL Microbiology - Last 24 Hours (Table) 11/08/21 09:00 Urine Culture - Final Urine,Catheterized 11/08/21 09:54 Blood Culture - Preliminary Blood No Growth after 24 hours Assessment and Plan (1) Sepsis Narrative/Plan: Patient appears to be doing about the same. Continue TPN. Keep nasogastric tube to suction. Increase activity as tolerated. Current Visit: Yes Status: Acute Code(s): A41.9 - SEPSIS, UNSPECIFIED ORGANISM SNOMED Code(s): 45824535
[2021-11-10 12:29] LABS: Glucose,Whole Blood 186 mg/dL (75-99)
--- NOTE | 2021-11-10 12:41 | P.PN ---
Subjective Progress Note Date: 11/10/21 Progress note dated 11/09/2021. 51-year-old developmentally delayed male, again seen in room 255. The patient was admitted to the hospital on October 29. He was initially admitted with a diagnosis of syncope, nausea, vomiting, and hypotension. The patient was brought to the intensive care unit on October 30, and on the same day, underwent a partial gastrectomy. The patient is postop day #10. He was successfully extubated from mechanical ventilation on November 04. Currently he is on 3 L nasal cannula. He's getting TPN at 70 mL an hour. He is getting saline at 10 mL an hour. He continues on Zosyn. NG tube remains in place. The patient is a DO NOT RESUSCITATE patient. Over the last 24 hours, the patient has had more than 1 L of output from the NG tube. Labs today include a white count of 7.7, hemoglobin 7, hematocrit 22.5, and platelet count 363,000. Sodium 142, potassium 3.6, chlorides 1:15, CO2 26, anion gap 1, BUN 23, creatinine 0.76. Albumin is 2. Microbiologic studies are negative. Chest x-ray, for NG tube placement, shows that the NG tube is coursing towards the right upper quadrant. The patient is seen today 11/10/2021 in follow-up on the regular medical floor. He is awake. Not tracking or any verbal response. Nasogastric tube remains in place with significant output. He is being nourished with TPN at 70 ML's per hour. Normal saline at 10 MLS per hour. He is maintaining good O2 saturations in the 90s on 2 L/m per nasal cannula. Cultures reveal no growth. Urine culture reveals no growth. White count 7.8. Hemoglobin 7.2. White count 467. Sodium 141. Potassium 4.1. BUN 23. Creatinine 0.71. AST 71. ALT 60. Blood glucose 116. He remains on DuoNeb inhalations. IV diuretics. Lovenox for DVT prophylaxis. Antibiotics in the form of Zosyn. Objective - Vital Signs Vital signs: Vital Signs Temp 97.1 F L 11/10/21 08:00 Pulse 84 11/10/21 12:00 Resp 17 11/10/21 08:00 BP 125/71 11/10/21 08:00 Pulse Ox 98 11/10/21 08:01 Intake & Output 11/09/21 11/10/21 11/10/21 17:59 06:59 18:59 Intake Total 100 Output Total 700 Balance -600 Intake: IV 100 Mvi, Adult No.4 with Vit K 10 ml Trace (Conc-1Ml/ Dose) 1 ml Potassium Acetate 30 meq Calcium Gluconate 1 gm Potassium Phosphate 6 mmol In Amino Acids 5 %/Dextrose 20 % 1,000 ml @ 70 mls/hr IV . BY DURATION [facility] Rx#: [id number] Piperacillin-Tazobactam 3 100 .375 gm In Sodium Chloride 0.9% 100 ml @ 25 mls/hr IVPB Q8HR [facility] Rx# :[id number] Sodium Chloride 0.9% 1, 000 ml @ 20 mls/hr IV . Q24H [facility] Rx#:[id number] Intake, IV Titration Amount Potassium Chloride 10 meq In Water For Injection 1 100ml.bag @ 100 mls/hr IVPB Q1H [facility] Rx#: [id number] TPN/PPN Mvi, Adult No.4 with Vit K 10 ml Trace (Conc-1Ml/ Dose) 1 ml Potassium Acetate 30 meq Calcium Gluconate 1 gm Potassium Phosphate 6 mmol In Amino Acids 5 %/Dextrose 20 % 1,000 ml @ 70 mls/hr IV . BY DURATION [facility] Rx#: [id number] Output: Gastric Drainage 250 Urine 450 Stool Other: Voiding Method Indwelling Catheter # Voids 1 # Bowel Movements 0 ABP, PAP, CO, CI - Last Documented Arterial Blood Pressure 106/68 - Exam 51-year-old male patient. No acute distress, NG tube in place, with nasal cannula at 2 L/m. The patient basically just grunts. Saturations are 98%. HEENT examination is grossly unremarkable. Neck supple. Full range of motion. No adenopathy thyromegaly or neck vein distention. Cardiovascular examination reveals regular rhythm rate. S1-S2 normal. No S3 or S4. No discernible murmur noted. Heart sounds are distant. Heart rate 84 bpm. Lungs reveal mild scattered rhonchi. No wheezes or crackles. Breath sounds equal bilaterally. Saturations are 98% on 2 L Abdomen soft, without bowel sounds. Extremities are intact. No cyanosis or clubbing. Mild diffuse edema noted. Skin is without rash or lesion. Neurologic examination reveals a poorly responsive individual, on nasal cannula, with an NG tube in place. The patient appears more awake. - Labs CBC & Chem 7: 11/10/21 05:42 11/10/21 05:42 Labs: Abnormal Lab Results - Last 24 Hours (Table) 11/09/21 11/09/21 11/10/21 Range/Units 11:47 20:41 05:29 RBC (4.40-5.60) X 10*6/uL Hgb (13.0-17.0) g/dL Hct (39.6-50.0) % MCH (27.0-32.0) pg MCHC (32.0-37.0) g/dL RDW (11.5-14.5) % Plt Count (140-440) X 10*3/uL Plt Count Comment Absolute Nucleated RBC (0.00-0.00) X 10*3/uL Immature Gran # (0.00-0.04) X 10*3/uL NRBC/100 WBC Diff (0.0-0.0) /100 WBCS Chloride (98-107) mmol/L BUN (9-20) mg/dL Glucose (74-99) mg/dL POC Glucose (mg/dL) 158 H 136 H 138 H (75-99) mg/dL Calcium (8.4-10.2) mg/dL Total Bilirubin (0.2-1.3) mg/dL AST (17-59) U/L ALT (4-49) U/L Alkaline Phosphatase (38-126) U/L Total Protein (6.3-8.2) g/dL Albumin (3.5-5.0) g/dL 11/10/21 11/10/21 11/10/21 Range/Units 05:42 05:42 12:28 RBC 2.96 L (4.40-5.60) X 10*6/uL Hgb 7.2 L (13.0-17.0) g/dL Hct 24.7 L (39.6-50.0) % MCH 24.3 L (27.0-32.0) pg MCHC 29.1 L (32.0-37.0) g/dL RDW 18.3 H (11.5-14.5) % Plt Count 467 H (140-440) X 10*3/uL Plt Count Comment INCREASED A Absolute Nucleated RBC 0.03 H (0.00-0.00) X 10*3/uL Immature Gran # 0.20 H (0.00-0.04) X 10*3/uL NRBC/100 WBC Diff 0.4 H (0.0-0.0) /100 WBCS Chloride 114 H (98-107) mmol/L BUN 23 H (9-20) mg/dL Glucose 116 H (74-99) mg/dL POC Glucose (mg/dL) 186 H (75-99) mg/dL Calcium 8.1 L (8.4-10.2) mg/dL Total Bilirubin 2.6 H (0.2-1.3) mg/dL AST 71 H (17-59) U/L ALT 60 H (4-49) U/L Alkaline Phosphatase 195 H (38-126) U/L Total Protein 5.7 L (6.3-8.2) g/dL Albumin 2.2 L (3.5-5.0) g/dL Microbiology - Last 24 Hours (Table) 11/08/21 09:54 Blood Culture - Preliminary Blood No Growth after 48 hours 11/08/21 09:00 Urine Culture - Final Urine,Catheterized Assessment and Plan Assessment: Postop day #11, status post partial gastrectomy. Routine postoperative ventilator management, S/P extubation from mechanical ventilation, 11/04/2021. Septic shock, post gastric surgery, requiring fluids and vasopressors. Recovered Acute hypoxemic respiratory failure, status post intubation on 10/30/2021. Extubated 11/04/2021 currently on 2 L nasal cannula Acute lactic acidosis, resolved. Acute kidney injury. History of CVA. Diabetes mellitus. History of hypertension. Developmental delay and autism. Episodic hypoglycemia. Plan: The patient was seen and evaluated Stable from the pulmonary and critical care standpoint We will see the patient as needed I have personally seen and examined the patient, performed the documentation and the assessment and plan as written. Number of minutes spent on the visit: 10.
[2021-11-10 16:54] LABS: Glucose,Whole Blood 147 mg/dL (75-99)
--- NOTE | 2021-11-10 18:18 | XR ---
EXAMINATION TYPE: XR chest 1V portable DATE OF EXAM: 11/10/2021 COMPARISON: 11/08/2021 HISTORY: Pneumonia TECHNIQUE: Single view FINDINGS: There is nasogastric tube in the stomach. There is right jugular catheter with tip in the r ight atrium. There is some mild atelectasis left lung base. No heart failure seen. Heart appears enla rged. IMPRESSION: There is some infiltrate and atelectasis left lung base without change compared to old ex am. No heart failure.
--- NOTE | 2021-11-10 18:47 | PN ---
PROGRESS NOTE DATE OF SERVICE: 11/10/2021 This 51-year-old gentleman who was admitted with sepsis secondary to bowel ischemia, underwent gastrectomy. The patient being closely monitored. No chest pain. No palpitation. PHYSICAL EXAMINATION: Pulse is 98. Blood pressure 160/64, respiration 18, temperature 100.6. HEENT: Conjunctivae normal. Neck: No JVD. Cardiovascular: S1, S2. Respirations: A few scattered rhonchi. Abdomen: Soft, status post surgery. Legs: No edema. No swelling. LABS: WBC 7.2, glucose noted. Chest x-ray done 2 days ago which was reviewed personally by me showed lower lobe atelectasis. ASSESSMENT: 1. Sepsis secondary ischemic bowel and ischemia of the stomach. 2. Status post partial gastrectomy stomach. 3. Fever. 4. Septic shock. 5. Elevated LFTs. 6. On TPN. 7. Acute renal failure. RECOMMENDATIONS AND DISCUSSION: Recommend to continue current medications, symptomatic treatment. Otherwise, we will repeat the chest x-ray. Septic workup. The patient is on IV Zosyn. Follow closely with surgery and multiple consults. Further recommendations to follow. Follow with pulmonary. MMODL / IJN: [id number] /
[2021-11-10 23:53] LABS: Glucose,Whole Blood 197 mg/dL (75-99)
[2021-11-10] MEDS ORDERED: LORazepam 2 MG/ML INJ IV PRN (23:59)
[2021-11-11] MEDS: PIPERACILLIN-TAZOBACTAM 3.375 GM in SODIUM CHLORIDE 0.9% 100 ML IVPB SCH ×3 (01:26→15:02)
[2021-11-11] MEDS: METOCLOPRAMIDE 5 MG/ML 2 ML VIAL IVP SCH ×4 (01:26→20:41)
[2021-11-11] MEDS ORDERED: levETIRAcetam IV 1,000 MG in SALINE 1 100ML.BAG IVPB STA (01:49)
[2021-11-11] MEDS ORDERED: ACETAMINOPHEN IV (For NPO) 1,000 MG in EMPTY BAG 1 BAG IVPB ONE (01:50)
[2021-11-11 01:51] LABS: Glucose,Whole Blood 158 mg/dL (75-99)
--- NOTE | 2021-11-11 01:59 | XR ---
EXAMINATION TYPE: XR chest 1V portable DATE OF EXAM: 11/11/2021 COMPARISON: Yesterday HISTORY: Pneumonia. Chest pain TECHNIQUE: Single view FINDINGS: There is some mild blunting of the costophrenic angles. No heart failure seen. There is rig ht jugular catheter with tip in the right atrium. There is nasogastric tube in the stomach. Heart siz e is normal. IMPRESSION: There is some pleural reaction and atelectasis at the lung bases not significantly differ ent than yesterday.
[2021-11-11 02:31] LABS: Anisocytosis Slight; HCT 30.1 % (39.0-53.0); HGB 8.9 gm/dL (13.0-17.5); Hypochromasia Marked; MCHC 29.6 g/dL (31.0-37.0); MCV 84.4 fL (80.0-100.0); RBC 3.56 m/uL (4.30-5.90); RDW 18.2 % (11.5-15.5); WBC 16.3 k/uL (3.8-10.6)
[2021-11-11 02:35] LABS: Platelet Count 1072 k/uL (150-450)
[2021-11-11 02:39] LABS: ALT 65 U/L (4-49); AST 84 U/L (17-59); African American GFR (CKD) 59 (>60 ml/min/1.73 sqM); Albumin 2.5 g/dL (3.5-5.0); Albumin/Globulin Ratio 0.6; Alkaline Phosphatase 269 U/L (38-126); Anion Gap 11 mmol/L; Blood Urea Nitrogen 32 mg/dL (9-20); Calcium 8.5 mg/dL (8.4-10.2); Carbon Dioxide 22 mmol/L (22-30); Chloride 109 mmol/L (98-107); Glucose 148 mg/dL (74-99); Magnesium 1.5 mg/dL (1.6-2.3); Non-African American GFR(CKD) 51 (>60 ml/min/1.73 sqM); Potassium 4.3 mmol/L (3.5-5.1); Sodium 142 mmol/L (137-145); Total Bilirubin 3.3 mg/dL (0.2-1.3); Total Protein 6.5 g/dL (6.3-8.2)
[2021-11-11] MEDS ORDERED: SODIUM CHLORIDE 0.9% 2,000 ML IV ONE ×3 (03:08→13:38)
--- NOTE | 2021-11-11 04:09 | P.EN ---
A- team: Indication: Fever, hypoxia, hypotension Arrived on Scene to find: Patient with coarse breath sounds and in mild to moderate respiratory distress, unresponsive Vital signs reviewed: BP 84/59, pulse 124, SpO2 95% on nonrebreather mask, temperature 103.2 Patient seen and examined at bedside. General: Ill-appearing male with coarse breath sounds and mild to moderate respiratory distress, [appears at stated age] Derm: [warm], [dry] Head: [atraumatic], [normocephalic], [symmetric] Eyes: [no lid lag], [anicteric sclera] Mouth: [no lip lesion], [mucus membranes moist] Cardiovascular: Tachycardic, [no murmur], [positive posterior tibial pulse bilateral], Lungs: Very coarse breath sounds diffusely, [no rales] , some accessory muscle use noted Abdominal: [soft], dressing overlying postsurgical incisions, [no guarding], [no appreciable organomegaly] Ext: [no gross muscle atrophy], [no edema], [no contractures] Neuro: Unresponsive, unable to assess, moving all extremities Psych: Unable to assess Assessment: Reviewed the chart detail and discussed the case with RN. The patient was admitted for bowel ischemia and underwent a gastrectomy and had a prolonged hospital stay due to septic shock and respiratory failure requiring intubation and IV pressors. The patient was found to be foaming at the mouth by the RN and subsequent coarse breath sounds and abnormal vitals. Suspect possible seizure although no gross shaking movements were noted by the RN. Suspect aspiration. CXR reviewed. Plan: Discussed the patient's code status with legal guardian Shiva who noted that he wishes the patient to continue being DNR/DNI but would like him to receive IV pressors if needed 2 L NS ordered Pipe Manufacture Supervisor and primary team notified C/w Zosyn Aspiration precautions Keppra 1 g ordered A Total of 55 minutes of critical care time was spent on the complex care of this patient.
[2021-11-11 05:21] LABS: ALT 57 U/L (4-49); AST 74 U/L (17-59); African American GFR (CKD) 61 (>60 ml/min/1.73 sqM); Albumin 2.1 g/dL (3.5-5.0); Albumin/Globulin Ratio 0.6; Alkaline Phosphatase 211 U/L (38-126); Anion Gap 7 mmol/L; Blood Urea Nitrogen 36 mg/dL (9-20); Calcium 7.5 mg/dL (8.4-10.2); Carbon Dioxide 21 mmol/L (22-30); Chloride 113 mmol/L (98-107); Globulin 3.5 g/dL; Glucose 159 mg/dL (74-99); Magnesium 1.4 mg/dL (1.6-2.3); Non-African American GFR(CKD) 53 (>60 ml/min/1.73 sqM); Phosphorus 3.6 mg/dL (2.5-4.5); Potassium 4.2 mmol/L (3.5-5.1); Sodium 141 mmol/L (137-145); Total Bilirubin 3.1 mg/dL (0.2-1.3); Total Protein 5.6 g/dL (6.3-8.2)
[2021-11-11 06:55] LABS: Glucose,Whole Blood 180 mg/dL (75-99)
[2021-11-11] MEDS: PANTOPRAZOLE 40 MG/10 ML VIAL IVP SCH ×2 (08:07→20:41)
[2021-11-11] MEDS: FUROSEMIDE 10 MG/ML 4 ML VIAL IV SCH (08:07)
[2021-11-11] MEDS: ENOXAPARIN 40 MG/0.4 ML SYRINGE SQ SCH (08:08)
[2021-11-11] MEDS: IPRATROPIUM-ALBUTEROL 3 ML NEB INHALATION SCH ×3 (08:33→20:11)
--- NOTE | 2021-11-11 09:27 | XR ---
EXAMINATION TYPE: XR chest 1V portable DATE OF EXAM: 11/11/2021 Comparison: 11/11/2021 Clinical History: 51-year-old male decreased oxygen sats Findings: NG tube courses below the diaphragm. Right CVC tip in the upper right atrium. Increased interstitial density. Increased retrocardiac and left basilar opacity. Impression: Increased interstitial density. Increased small left pleural effusion now with more pronounced airspa ce disease in the retrocardiac region and left base. Correlate for pneumonia or developing pulmonary vascular congestion.
[2021-11-11] MEDS ORDERED: NOREPINEPHRIN 4 MG-0.9% NS PMX 0 MG/0 ML ML IV ONE (09:45)
[2021-11-11 09:48] LABS: Glucose,Whole Blood 186 mg/dL (75-99)
[2021-11-11] MEDS ORDERED: [UNRECOGNIZED DRUG - OTHER] IV SCH ×7 (10:00)
[2021-11-11] MEDS ORDERED: CALCIUM GLUCONATE IV SCH ×7 (10:00)
[2021-11-11] MEDS ORDERED: POTASSIUM PHOSPHATE IV SCH ×7 (10:00)
[2021-11-11] MEDS ORDERED: POTASSIUM ACETATE IV SCH ×7 (10:00)
[2021-11-11] MEDS ORDERED: Magnesium Replacement Protocol 1 EACH MISC MISCELLANE PRN (10:25)
[2021-11-11 10:27] LABS: ABG Base Excess -2.1 mmol/L; ABG HCO3 23 mmol/L (21-25); ABG Oxygen Saturation 98.7 % (94-97); ABG PCO2 37 mmHg (35-45); ABG PO2 130 mmHg (83-108); ABG TCO2 24 mmol/L (19-24); Allen Test Performed? Yes
--- NOTE | 2021-11-11 10:33 | P.PN ---
Subjective Progress Note Date: 11/11/21 On the morning of 11/11/2021, the patient became acutely short of breath and the patient got transferred to the intensive care unit. The patient is known to me and I think in care of this patient last week as the patient had a extensive gastric surgery with partial gastrectomy , and the patient is postop day #12. The patient was taken to the operating room and the patient was found to have ischemia of the lateral portion of the stomach and mild/minimal ischemia of the proximal jejunum. The patient underwent a exploratory laparotomy and the patient underwent a partial gastrectomyand postop, the patient was treated for multisystem organ failure on his condition was stabilized and he got to point where the patient was extubated and he was transferred to a medical floor. Nevertheless, he was still maintained nothing by mouth. NG tube was still in place. The patient was receiving TPN for nutritional support. The patient was noted to be more lethargic yesterday. Overnight, the patient became unresponsive above and beyond his baseline knowing that he has baseline mental retardation. He was having also coarse breath sounds bilaterally and he was also found to be foaming at the mouth and he was having moderate degree of respiratory distress. Subsequently, he became more hypotensive, hypoxic and he was placed on a nonrebreather facemask and he was found to be febrile with tempe rature 103.2. At that point, the patient got transferred to the intensive care unit. Once in the ICU, the patient was placed On a BiPAP at a pressure of 14/6 cm of water with an FiO2 of 50%. His current meds ventilation is around 33. Respiratory rate is quite elevated at around above 50. He was hypotensive initially and he was given IV fluids total of 2 L of normal saline in the coming blood pressure is 108/69. His heart rate is sinus at the rate of 113. He is on a maintenance IV fluids with 0.9 and this will be increased to be related 150 mL an hour. Urine output is minimal at this point in time his blood work from this morning is showing an acute kidney injury in the creatinine is up to 1.49 with a BUN of 36 and the sodium level of 141. The white cell count is also elevated at 16.3. The incision over the abdomen looks dry clean and intact. Bowel sounds are hypoactive. NG tube is in place and it has drained approximately 400 mL since arrival to the intensive care unit. I was told that the angina but was quite elevated in order of 800 mL every 8 hours. On examination, the patient is unresponsive. He is not following any commands. His breathing is very much limited and he has coarse breath sounds on throughout the lung barkley bilaterally. He remains on IV Zosyn. He remains on TPN for nutritional support. His causes status is DO NOT RESUSCITATE/DO NOT INTUBATE. Objective - Vital Signs Vital signs: Vital Signs Temp 97.9 F 11/11/21 08:00 Pulse 122 H 11/11/21 04:04 Resp 52 H 11/11/21 04:04 BP 101/59 11/11/21 04:04 Pulse Ox 98 11/11/21 04:04 Intake & Output 11/10/21 11/11/21 11/11/21 18:59 06:59 18:59 Intake Total 1472 1043 Output Total 2100 400 1000 Balance -628 643 -1000 Intake: IV 440 Piperacillin-Tazobactam 3 200 .375 gm In Sodium Chloride 0.9% 100 ml @ 25 mls/hr IVPB Q8HR ROBERTO Rx# :[id number] Sodium Chloride 0.9% 1, 240 000 ml @ 20 mls/hr IV . Q24H ROBERTO Rx#:[id number] Intake, IV Titration 1032 1043 Amount Mvi, Adult No.4 with Vit 1043 K 10 ml Trace (Conc-1Ml/ Dose) 1 ml Potassium Acetate 40 meq Calcium Gluconate 1 gm Potassium Phosphate 6 mmol In Amino Acids 5 %/Dextrose 20 % 1,000 ml @ 70 mls/hr IV . BY DURATION ROBERTO Rx#: [id number] Potassium Acetate 40 meq 1032 Calcium Gluconate 1 gm Potassium Phosphate 6 mmol In Amino Acids 5 %/ Dextrose 20 % 1,000 ml @ 70 mls/hr IV .BY DURATION ROBERTO Rx#:[id number] Output: Gastric Drainage 900 1000 Urine 1200 400 Other: Voiding Method Indwelling Catheter Indwelling Catheter Indwelling Catheter # Voids 1 # Bowel Movements 0 0 ABP, PAP, CO, CI - Last Documented Arterial Blood Pressure 106/68 - Exam GENERAL: Patient is responsive, breathing is extremely labored and the patient is tachypneic on a BiPAP at a pressure of 14/6 cm of water-50%. Head exam was generally normal. There was no scleral icterus or corneal arcus. Mucous membranes were moist. HEENT: Pupils are round and equally reacting to light. EOMI. No scleral icterus. No conjunctival pallor. Normocephalic, atraumatic. No pharyngeal erythema. No thyromegaly. Orogastric and orotracheal tube are both in place. CARDIOVASCULAR: S1 and S2 present. No murmurs, rubs, or gallops. PULMONARY: Diffuse rhonchi heard throughout the lung barkley bilaterally. ABDOMEN: Absent bowel sounds and the surgical wound site over the mid abdomen is dry clean and intact. No direct tenderness. No rebound tenderness. No guarding. No organomegaly. The surgical wound site over the abdominal wall is dry clean and intact. NG tube is in place. Bowel sounds remain absent. MUSCULOSKELETAL: No joint swelling or deformity. EXTREMITIES: Extremities are cold and clammy and there are diminished pulses in all 4 extremities. No cyanosis. No clubbing. NEUROLOGICAL still somnolent and lethargic, not grimacing to deep painful stimulation. Not following commands Examination of the skin revealed no evidence of significant rashes, suspicious appearing nevi or other concerning lesions. - Labs CBC & Chem 7: 11/11/21 01:50 11/11/21 04:52 Labs: Abnormal Lab Results - Last 24 Hours (Table) 11/10/21 11/10/21 11/10/21 Range/Units 12:28 16:54 23:33 WBC (3.8-10.6) k/uL RBC (4.30-5.90) m/uL Hgb (13.0-17.5) gm/dL Hct (39.0-53.0) % MCHC (31.0-37.0) g/dL RDW (11.5-15.5) % Plt Count (150-450) k/uL Chloride (98-107) mmol/L Carbon Dioxide (22-30) mmol/L BUN (9-20) mg/dL Creatinine (0.66-1.25) mg/dL Glucose (74-99) mg/dL POC Glucose (mg/dL) 186 H 147 H 197 H (75-99) mg/dL Plasma Lactic Acid Milton (0.7-2.0) mmol/L Calcium (8.4-10.2) mg/dL Magnesium (1.6-2.3) mg/dL Total Bilirubin (0.2-1.3) mg/dL AST (17-59) U/L ALT (4-49) U/L Alkaline Phosphatase (38-126) U/L Total Protein (6.3-8.2) g/dL Albumin (3.5-5.0) g/dL 11/11/21 11/11/21 11/11/21 Range/Units 01:31 01:50 01:50 WBC 16.3 H (3.8-10.6) k/uL RBC 3.56 L (4.30-5.90) m/uL Hgb 8.9 L D (13.0-17.5) gm/dL Hct 30.1 L (39.0-53.0) % MCHC 29.6 L (31.0-37.0) g/dL RDW 18.2 H (11.5-15.5) % Plt Count 1072 H* D (150-450) k/uL Chloride 109 H (98-107) mmol/L Carbon Dioxide (22-30) mmol/L BUN 32 H (9-20) mg/dL Creatinine 1.54 H (0.66-1.25) mg/dL Glucose 148 H (74-99) mg/dL POC Glucose (mg/dL) 158 H (75-99) mg/dL Plasma Lactic Acid Milton (0.7-2.0) mmol/L Calcium (8.4-10.2) mg/dL Magnesium 1.5 L (1.6-2.3) mg/dL Total Bilirubin 3.3 H (0.2-1.3) mg/dL AST 84 H (17-59) U/L ALT 65 H (4-49) U/L Alkaline Phosphatase 269 H (38-126) U/L Total Protein (6.3-8.2) g/dL Albumin 2.5 L (3.5-5.0) g/dL 11/11/21 11/11/21 11/11/21 Range/Units 01:50 04:52 06:46 WBC (3.8-10.6) k/uL RBC (4.30-5.90) m/uL Hgb (13.0-17.5) gm/dL Hct (39.0-53.0) % MCHC (31.0-37.0) g/dL RDW (11.5-15.5) % Plt Count (150-450) k/uL Chloride 113 H (98-107) mmol/L Carbon Dioxide 21 L (22-30) mmol/L BUN 36 H (9-20) mg/dL Creatinine 1.49 H (0.66-1.25) mg/dL Glucose 159 H (74-99) mg/dL POC Glucose (mg/dL) 180 H (75-99) mg/dL Plasma Lactic Acid Milton 3.8 H* (0.7-2.0) mmol/L Calcium 7.5 L (8.4-10.2) mg/dL Magnesium 1.4 L (1.6-2.3) mg/dL Total Bilirubin 3.1 H (0.2-1.3) mg/dL AST 74 H (17-59) U/L ALT 57 H (4-49) U/L Alkaline Phosphatase 211 H (38-126) U/L Total Protein 5.6 L (6.3-8.2) g/dL Albumin 2.1 L (3.5-5.0) g/dL 11/11/21 Range/Units 09:44 WBC (3.8-10.6) k/uL RBC (4.30-5.90) m/uL Hgb (13.0-17.5) gm/dL Hct (39.0-53.0) % MCHC (31.0-37.0) g/dL RDW (11.5-15.5) % Plt Count (150-450) k/uL Chloride (98-107) mmol/L Carbon Dioxide (22-30) mmol/L BUN (9-20) mg/dL Creatinine (0.66-1.25) mg/dL Glucose (74-99) mg/dL POC Glucose (mg/dL) 186 H (75-99) mg/dL Plasma Lactic Acid Milton (0.7-2.0) mmol/L Calcium (8.4-10.2) mg/dL Magnesium (1.6-2.3) mg/dL Total Bilirubin (0.2-1.3) mg/dL AST (17-59) U/L ALT (4-49) U/L Alkaline Phosphatase (38-126) U/L Total Protein (6.3-8.2) g/dL Albumin (3.5-5.0) g/dL Microbiology - Last 24 Hours (Table) 11/08/21 09:54 Blood Culture - Preliminary Blood No Growth after 48 hours Assessment and Plan Plan: 1 partial gastrectomy as the patient was found to have ischemic anterior gastric wall with questionable small bowel ischemia. The patient underwent partial gastrectomy and the patient is postop day #12. After the initial surgery, the patient was extubated and the patient was further stabilized hemodynamically and the patient got transferred to a medical surgical floor. Nevertheless, he never got to the point where he was feeding. He was still being fed through TPN for nutritional support. NG tube was still in place and output from the NG tube was considerably high in the order of 800 mL every shift. The patient comes in to the ICU again this morning with acute hypoxic respiratory failure, unresponsiveness, leukocytosis, fever, and the presentation is highly suggestive of an underlying aspiration pneumonia. Chest x-ray showing increased density, interstitial, in addition to a small left-sided pleural effusion and more pronounced airspace disease in the left lung base. 2 septic shock post gastric surgery, treated and stabilized 3 acute hypoxic respiratory failure , currently the patient is in significant respiratory distress and tachypnea with high minute ventilation. The patient remains on a BiPAP for ventilation and respiratory support. High suspicion for a I aspiration as the patient has increased airspace disease in the left lung in addition to diffuse rhonchi, leukocytosis, and new onset fever. 3 acute lactic acidosis, secondary to above, improved, lactic acid level was 3.8 yesterday and this morning is down to 1.5 4 acute kidney injury. The patient is an aortic and this point in time 5 history of CVA 6 diabetes mellitus 7 hypertension 8 Developmental delay and autism 9 episodic hypoglycemia, recovered and the patient was receiving TPN for nutritional support with a Plan Continue ventilator support via BiPAP for now. The patient is a DNR/DNI CODE STATUS. As such, no intubation will be done at this point in time we'll continue the BiPAP for now. Keep the patient here in the intensive care unit and obtain a blood gas May need to use Precedex if needed Given a total of 2 L of IV fluid, normal saline Continued IV Zosyn Discontinue the Lasix Continue TPN for nutritional support pressors if needed Continue IV Zosyn Check echocardiogram done on 10/29/2032 showed an ejection fraction of 60-65% Monitor CVP Keep the patient nothing by mouth DNR/DNI Family will be arriving to the hospital. Possible end-of-life care based on his baseline developmental delay and mental retardation in addition to extensive comorbidities as mentioned above. We'll continue to follow. We'll support this case in the ICU, awaiting family to arrive. Critically care evaluation that was done more than 30 minutes Time with Patient: Greater than 30
[2021-11-11 11:15] LABS: Basophils # (M) 0.49 X 10*3/uL (0.00-0.10); Eosinophils # (M) 0.16 X 10*3/uL (0.04-0.35); HCT 25.3 % (39.6-50.0); HGB 7.2 g/dL (13.0-17.0); Lymphocytes # (M) 0.66 X 10*3/uL (0.90-5.00); MCH 24.2 pg (27.0-32.0); MCHC 28.5 g/dL (32.0-37.0); MCV 84.9 fL (80.0-97.0); Mean Platelet Volume 11.1 fL (9.5-12.2); Metamyelocytes % 4 % (0-0); Monocytes # (M) 0.33 X 10*3/uL (0.20-1.00); Myelocytes % 1 % (0-0); NRBC Per 100 WBC 1.5 /100 WBCS (0.0-0.0); Neutrophils # (M) 13.96 X 10*3/uL (2.00-8.90); Neutrophils % (M) 85 %; Platelet Count 718 X 10*3/uL (140-440); RBC 2.98 X 10*6/uL (4.40-5.60); RDW 18.9 % (11.5-14.5); WBC 16.42 X 10*3/uL (4.50-10.00)
[2021-11-11] MEDS ORDERED: propofoL 100 ML IV ONE (11:16)
[2021-11-11] MEDS: MAGNESIUM SULFATE-D5W PMX 1 GM in DEXTROSE/WATER 1 100ML.BAG IVPB SCH ×3 (11:30→13:39)
[2021-11-11] MEDS ORDERED: CISATRACURIUM 2 MG/ML 5 ML VIAL IV ONE (12:03)
--- NOTE | 2021-11-11 12:22 | P.PN ---
<Anabelle Benavidez - Last Filed: 11/11/21 12:14> Subjective Progress Note Date: 11/11/21 CHIEF COMPLAINT: Abdominal pain HISTORY OF PRESENT ILLNESS: Patient is status post exploratory laparotomy with partial gastrectomy for ischemia of the lateral portion of the stomach and mild ischemia noted of the proximal jejunal. Postop day #12. Patient required to be transferred back to the ICU this morning due to hypotension, fever and hypoxia. An "A Team" was called on him this morning. There is concerns of possible seizure and aspiration. Patient is short of breath and also on a nonrebreather. He is very lethargic. He did have a fever T-max of 103.2 with tachycardia and elevated respiratory rate. Continues to have high NG tube output. 1000 mL bilious output through the night. Patient did receive fluid bolus for his hypotension. Chest x-ray increased interstitial density. Increased small left pleural effusi on now with more pronounced airspace disease in the retrocardiac region on the left base. Correlate for pneumonia or a developing pulmonary vascular congestion. PHYSICAL EXAM: VITAL SIGNS: Reviewed. GENERAL: Use of accessory muscles evidence of shortness of breath HEENT: No sclera icterus. Extraocular movements grossly intact. Moist buccal mucosa. Head is atraumatic, normocephalic. ABDOMEN: Soft. Nondistended. Nontender, Incision site clean dry and intact NEUROLOGIC: Lethargic ASSESSMENT: 1. Ischemia of the lateral portion of the stomach and mild ischemia of the proximal jejunum status post exploratory laparotomy and partial gastrectomy. 2. Septic shock 3. Possible toxic metabolic encephalopathy 4. Postoperative ileus 5. Thrombocytopenia resolved 6. Possible Aspiration pneumonia with sepsis PLAN: -Agree with transfer to ICU -Continue supportive care -Continue IV fluids -Continue NG tube for decompression -Keep patient nothing by mouth -Continue antibiotics antibiotics -Continue Reglan for ileus -Continue TPN for nutrition support -CODE STATUS DO NOT RESUSCITATE -DVT prophylaxis Lovenox Physician Melt Helper note has been reviewed by physician. Signing provider agrees with the documented findings, assessment, and plan of care. Objective - Vital Signs Vital signs: Vital Signs Temp 97.9 F 11/11/21 08:00 Pulse 90 11/11/21 11:36 Resp 52 H 11/11/21 04:04 BP 101/59 11/11/21 04:04 Pulse Ox 98 11/11/21 04:04 Intake & Output 11/10/21 11/11/21 11/11/21 18:59 06:59 18:59 Intake Total 1472 1043 2000 Output Total 2100 400 1350 Balance -628 643 650 Intake: IV 440 2000 Piperacillin-Tazobactam 3 200 .375 gm In Sodium Chloride 0.9% 100 ml @ 25 mls/hr IVPB Q8HR [facility] Rx# :[id number] Sodium Chloride 0.9% 1, 240 000 ml @ 20 mls/hr IV . Q24H [facility] Rx#:[id number] Sodium Chloride 0.9% 2, 2000 000 ml @ 999 mls/hr IV . Q2H1M [facility] Rx#:[id number] Intake, IV Titration 1032 1043 Amount Mvi, Adult No.4 with Vit 1043 K 10 ml Trace (Conc-1Ml/ Dose) 1 ml Potassium Acetate 40 meq Calcium Gluconate 1 gm Potassium Phosphate 6 mmol In Amino Acids 5 %/Dextrose 20 % 1,000 ml @ 70 mls/hr IV . BY DURATION [facility] Rx#: [id number] Potassium Acetate 40 meq 1032 Calcium Gluconate 1 gm Potassium Phosphate 6 mmol In Amino Acids 5 %/ Dextrose 20 % 1,000 ml @ 70 mls/hr IV .BY DURATION [facility] Rx#:[id number] Output: Gastric Drainage 900 1000 Urine 1200 400 350 Other: Voiding Method Indwelling Catheter Indwelling Catheter Indwelling Catheter # Voids 1 # Bowel Movements 0 0 ABP, PAP, CO, CI - Last Documented Arterial Blood Pressure 106/68 - Labs CBC & Chem 7: 11/11/21 04:52 11/11/21 04:52 Labs: Abnormal Lab Results - Last 24 Hours (Table) 11/10/21 11/10/21 11/10/21 Range/Units 12:28 16:54 23:33 WBC (3.8-10.6) k/uL RBC (4.30-5.90) m/uL Hgb (13.0-17.5) gm/dL Hct (39.0-53.0) % MCH (27.0-32.0) pg MCHC (31.0-37.0) g/dL RDW (11.5-15.5) % Plt Count (150-450) k/uL Plt Count Comment Absolute Nucleated RBC (0.00-0.00) X 10*3/uL Metamyelocytes % (0-0) % Myelocytes % (0-0) % Neutrophils # (Manual) (2.00-8.90) X 10*3/uL Lymphocytes # (Manual) (0.90-5.00) X 10*3/uL Basophils # (Manual) (0.00-0.10) X 10*3/uL NRBC/100 WBC Diff (0.0-0.0) /100 WBCS ABG pO2 (83-108) mmHg ABG O2 Saturation (94-97) % Chloride (98-107) mmol/L Carbon Dioxide (22-30) mmol/L BUN (9-20) mg/dL Creatinine (0.66-1.25) mg/dL Glucose (74-99) mg/dL POC Glucose (mg/dL) 186 H 147 H 197 H (75-99) mg/dL Plasma Lactic Acid Milton (0.7-2.0) mmol/L Calcium (8.4-10.2) mg/dL Magnesium (1.6-2.3) mg/dL Total Bilirubin (0.2-1.3) mg/dL AST (17-59) U/L ALT (4-49) U/L Alkaline Phosphatase (38-126) U/L Total Protein (6.3-8.2) g/dL Albumin (3.5-5.0) g/dL 11/11/21 11/11/21 11/11/21 Range/Units 01:31 01:50 01:50 WBC 16.3 H (3.8-10.6) k/uL RBC 3.56 L (4.30-5.90) m/uL Hgb 8.9 L D (13.0-17.5) gm/dL Hct 30.1 L (39.0-53.0) % MCH (27.0-32.0) pg MCHC 29.6 L (31.0-37.0) g/dL RDW 18.2 H (11.5-15.5) % Plt Count 1072 H* D (150-450) k/uL Plt Count Comment Absolute Nucleated RBC (0.00-0.00) X 10*3/uL Metamyelocytes % (0-0) % Myelocytes % (0-0) % Neutrophils # (Manual) (2.00-8.90) X 10*3/uL Lymphocytes # (Manual) (0.90-5.00) X 10*3/uL Basophils # (Manual) (0.00-0.10) X 10*3/uL NRBC/100 WBC Diff (0.0-0.0) /100 WBCS ABG pO2 (83-108) mmHg ABG O2 Saturation (94-97) % Chloride 109 H (98-107) mmol/L Carbon Dioxide (22-30) mmol/L BUN 32 H (9-20) mg/dL Creatinine 1.54 H (0.66-1.25) mg/dL Glucose 148 H (74-99) mg/dL POC Glucose (mg/dL) 158 H (75-99) mg/dL Plasma Lactic Acid Milton (0.7-2.0) mmol/L Calcium (8.4-10.2) mg/dL Magnesium 1.5 L (1.6-2.3) mg/dL Total Bilirubin 3.3 H (0.2-1.3) mg/dL AST 84 H (17-59) U/L ALT 65 H (4-49) U/L Alkaline Phosphatase 269 H (38-126) U/L Total Protein (6.3-8.2) g/dL Albumin 2.5 L (3.5-5.0) g/dL 11/11/21 11/11/21 11/11/21 Range/Units 01:50 04:52 04:52 WBC 16.42 H (3.8-10.6) k/uL RBC 2.98 L (4.30-5.90) m/uL Hgb 7.2 L (13.0-17.5) gm/dL Hct 25.3 L (39.0-53.0) % MCH 24.2 L (27.0-32.0) pg MCHC 28.5 L (31.0-37.0) g/dL RDW 18.9 H (11.5-15.5) % Plt Count 718 H (150-450) k/uL Plt Count Comment INCREASED A Absolute Nucleated RBC 0.24 H (0.00-0.00) X 10*3/uL Metamyelocytes % 4 H (0-0) % Myelocytes % 1 H (0-0) % Neutrophils # (Manual) 13.96 H (2.00-8.90) X 10*3/uL Lymphocytes # (Manual) 0.66 L (0.90-5.00) X 10*3/uL Basophils # (Manual) 0.49 H (0.00-0.10) X 10*3/uL NRBC/100 WBC Diff 1.5 H (0.0-0.0) /100 WBCS ABG pO2 (83-108) mmHg ABG O2 Saturation (94-97) % Chloride 113 H (98-107) mmol/L Carbon Dioxide 21 L (22-30) mmol/L BUN 36 H (9-20) mg/dL Creatinine 1.49 H (0.66-1.25) mg/dL Glucose 159 H (74-99) mg/dL POC Glucose (mg/dL) (75-99) mg/dL Plasma Lactic Acid Milton 3.8 H* (0.7-2.0) mmol/L Calcium 7.5 L (8.4-10.2) mg/dL Magnesium 1.4 L (1.6-2.3) mg/dL Total Bilirubin 3.1 H (0.2-1.3) mg/dL AST 74 H (17-59) U/L ALT 57 H (4-49) U/L Alkaline Phosphatase 211 H (38-126) U/L Total Protein 5.6 L (6.3-8.2) g/dL Albumin 2.1 L (3.5-5.0) g/dL 11/11/21 11/11/21 11/11/21 Range/Units 06:46 09:44 10:25 WBC (3.8-10.6) k/uL RBC (4.30-5.90) m/uL Hgb (13.0-17.5) gm/dL Hct (39.0-53.0) % MCH (27.0-32.0) pg MCHC (31.0-37.0) g/dL RDW (11.5-15.5) % Plt Count (150-450) k/uL Plt Count Comment Absolute Nucleated RBC (0.00-0.00) X 10*3/uL Metamyelocytes % (0-0) % Myelocytes % (0-0) % Neutrophils # (Manual) (2.00-8.90) X 10*3/uL Lymphocytes # (Manual) (0.90-5.00) X 10*3/uL Basophils # (Manual) (0.00-0.10) X 10*3/uL NRBC/100 WBC Diff (0.0-0.0) /100 WBCS ABG pO2 130 H (83-108) mmHg ABG O2 Saturation 98.7 H (94-97) % Chloride (98-107) mmol/L Carbon Dioxide (22-30) mmol/L BUN (9-20) mg/dL Creatinine (0.66-1.25) mg/dL Glucose (74-99) mg/dL POC Glucose (mg/dL) 180 H 186 H (75-99) mg/dL Plasma Lactic Acid Milton (0.7-2.0) mmol/L Calcium (8.4-10.2) mg/dL Magnesium (1.6-2.3) mg/dL Total Bilirubin (0.2-1.3) mg/dL AST (17-59) U/L ALT (4-49) U/L Alkaline Phosphatase (38-126) U/L Total Protein (6.3-8.2) g/dL Albumin (3.5-5.0) g/dL Microbiology - Last 24 Hours (Table) 11/08/21 09:54 Blood Culture - Preliminary Blood No Growth after 72 hours <Alberto Torres - Last Filed: 11/11/21 15:31> Subjective I have personally seen and examined the patient, 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 Based on total visit time, I have performed more than 50% of the visit. As above: Patient with respiratory failure this morning. Conversation between pulmonary and the patient's family has led to the decision to reintubate. Patient continues to have a high nasogastric tube output. Continue suction for now. Continue TPN. Objective - Vital Signs Vital signs: Vital Signs Temp 99.3 F 11/11/21 14:00 Pulse 93 11/11/21 15:00 Resp 37 H 11/11/21 15:00 BP 113/62 11/11/21 13:00 Pulse Ox 99 11/11/21 15:00 Intake & Output 11/10/21 11/11/21 11/11/21 18:59 06:59 18:59 Intake Total 1472 1043 4445.717 Output Total 2100 400 2060 Balance -262 582 2734.717 Weight 80.7 kg Intake: IV 440 4100 Piperacillin-Tazobactam 3 200 100 .375 gm In Sodium Chloride 0.9% 100 ml @ 25 mls/hr IVPB Q8HR [facility] Rx# :[id number] Sodium Chloride 0.9% 1, 240 000 ml @ 20 mls/hr IV . Q24H [facility] Rx#:[id number] Sodium Chloride 0.9% 2, 4000 000 ml @ 999 mls/hr IV . Q2H1M [facility] Rx#:[id number] Intake, IV Titration 1032 1043 345.717 Amount Mvi, Adult No.4 with Vit 1043 K 10 ml Trace (Conc-1Ml/ Dose) 1 ml Potassium Acetate 40 meq Calcium Gluconate 1 gm Potassium Phosphate 6 mmol In Amino Acids 5 %/Dextrose 20 % 1,000 ml @ 70 mls/hr IV . BY DURATION [facility] Rx#: [id number] Potassium Acetate 40 meq 1032 Calcium Gluconate 1 gm Potassium Phosphate 6 mmol In Amino Acids 5 %/ Dextrose 20 % 1,000 ml @ 70 mls/hr IV .BY DURATION [facility] Rx#:[id number] Sodium Chloride 0.9% 1, 300 000 ml @ 150 mls/hr IV . Q6H40M [facility] Rx#:[id number] propofoL 1,000 mg In 45.717 Empty Bag 1 bag @ 20 MCG/ KG/MIN 9.684 mls/hr IV . [id number] [facility] Rx#:[id number] Output: Gastric Drainage 900 1000 Urine 1200 400 660 Oral Regurgitation 400 Other: Voiding Method Indwelling Catheter Indwelling Catheter Indwelling Catheter # Voids 1 # Bowel Movements 0 0 ABP, PAP, CO, CI - Last Documented Arterial Blood Pressure 103/47 - Labs CBC & Chem 7: 11/11/21 04:52 11/11/21 04:52 Labs: Abnormal Lab Results - Last 24 Hours (Table) 11/10/21 11/10/21 11/11/21 Range/Units 16:54 23:33 01:31 WBC (3.8-10.6) k/uL RBC (4.30-5.90) m/uL Hgb (13.0-17.5) gm/dL Hct (39.0-53.0) % MCH (27.0-32.0) pg MCHC (31.0-37.0) g/dL RDW (11.5-15.5) % Plt Count (150-450) k/uL Plt Count Comment Absolute Nucleated RBC (0.00-0.00) X 10*3/uL Metamyelocytes % (0-0) % Myelocytes % (0-0) % Neutrophils # (Manual) (2.00-8.90) X 10*3/uL Lymphocytes # (Manual) (0.90-5.00) X 10*3/uL Basophils # (Manual) (0.00-0.10) X 10*3/uL NRBC/100 WBC Diff (0.0-0.0) /100 WBCS ABG pH (7.35-7.45) ABG pO2 (83-108) mmHg ABG O2 Saturation (94-97) % Chloride (98-107) mmol/L Carbon Dioxide (22-30) mmol/L BUN (9-20) mg/dL Creatinine (0.66-1.25) mg/dL Glucose (74-99) mg/dL POC Glucose (mg/dL) 147 H 197 H 158 H (75-99) mg/dL Plasma Lactic Acid Milton (0.7-2.0) mmol/L Calcium (8.4-10.2) mg/dL Magnesium (1.6-2.3) mg/dL Total Bilirubin (0.2-1.3) mg/dL AST (17-59) U/L ALT (4-49) U/L Alkaline Phosphatase (38-126) U/L Total Protein (6.3-8.2) g/dL Albumin (3.5-5.0) g/dL 11/11/21 11/11/21 11/11/21 Range/Units 01:50 01:50 01:50 WBC 16.3 H (3.8-10.6) k/uL RBC 3.56 L (4.30-5.90) m/uL Hgb 8.9 L D (13.0-17.5) gm/dL Hct 30.1 L (39.0-53.0) % MCH (27.0-32.0) pg MCHC 29.6 L (31.0-37.0) g/dL RDW 18.2 H (11.5-15.5) % Plt Count 1072 H* D (150-450) k/uL Plt Count Comment Absolute Nucleated RBC (0.00-0.00) X 10*3/uL Metamyelocytes % (0-0) % Myelocytes % (0-0) % Neutrophils # (Manual) (2.00-8.90) X 10*3/uL Lymphocytes # (Manual) (0.90-5.00) X 10*3/uL Basophils # (Manual) (0.00-0.10) X 10*3/uL NRBC/100 WBC Diff (0.0-0.0) /100 WBCS ABG pH (7.35-7.45) ABG pO2 (83-108) mmHg ABG O2 Saturation (94-97) % Chloride 109 H (98-107) mmol/L Carbon Dioxide (22-30) mmol/L BUN 32 H (9-20) mg/dL Creatinine 1.54 H (0.66-1.25) mg/dL Glucose 148 H (74-99) mg/dL POC Glucose (mg/dL) (75-99) mg/dL Plasma Lactic Acid Milton 3.8 H* (0.7-2.0) mmol/L Calcium (8.4-10.2) mg/dL Magnesium 1.5 L (1.6-2.3) mg/dL Total Bilirubin 3.3 H (0.2-1.3) mg/dL AST 84 H (17-59) U/L ALT 65 H (4-49) U/L Alkaline Phosphatase 269 H (38-126) U/L Total Protein (6.3-8.2) g/dL Albumin 2.5 L (3.5-5.0) g/dL 11/11/21 11/11/21 11/11/21 Range/Units 04:52 04:52 06:46 WBC 16.42 H (3.8-10.6) k/uL RBC 2.98 L (4.30-5.90) m/uL Hgb 7.2 L (13.0-17.5) gm/dL Hct 25.3 L (39.0-53.0) % MCH 24.2 L (27.0-32.0) pg MCHC 28.5 L (31.0-37.0) g/dL RDW 18.9 H (11.5-15.5) % Plt Count 718 H (150-450) k/uL Plt Count Comment INCREASED A Absolute Nucleated RBC 0.24 H (0.00-0.00) X 10*3/uL Metamyelocytes % 4 H (0-0) % Myelocytes % 1 H (0-0) % Neutrophils # (Manual) 13.96 H (2.00-8.90) X 10*3/uL Lymphocytes # (Manual) 0.66 L (0.90-5.00) X 10*3/uL Basophils # (Manual) 0.49 H (0.00-0.10) X 10*3/uL NRBC/100 WBC Diff 1.5 H (0.0-0.0) /100 WBCS ABG pH (7.35-7.45) ABG pO2 (83-108) mmHg ABG O2 Saturation (94-97) % Chloride 113 H (98-107) mmol/L Carbon Dioxide 21 L (22-30) mmol/L BUN 36 H (9-20) mg/dL Creatinine 1.49 H (0.66-1.25) mg/dL Glucose 159 H (74-99) mg/dL POC Glucose (mg/dL) 180 H (75-99) mg/dL Plasma Lactic Acid Milton (0.7-2.0) mmol/L Calcium 7.5 L (8.4-10.2) mg/dL Magnesium 1.4 L (1.6-2.3) mg/dL Total Bilirubin 3.1 H (0.2-1.3) mg/dL AST 74 H (17-59) U/L ALT 57 H (4-49) U/L Alkaline Phosphatase 211 H (38-126) U/L Total Protein 5.6 L (6.3-8.2) g/dL Albumin 2.1 L (3.5-5.0) g/dL 11/11/21 11/11/21 11/11/21 Range/Units 09:44 10:25 12:54 WBC (3.8-10.6) k/uL RBC (4.30-5.90) m/uL Hgb (13.0-17.5) gm/dL Hct (39.0-53.0) % MCH (27.0-32.0) pg MCHC (31.0-37.0) g/dL RDW (11.5-15.5) % Plt Count (150-450) k/uL Plt Count Comment Absolute Nucleated RBC (0.00-0.00) X 10*3/uL Metamyelocytes % (0-0) % Myelocytes % (0-0) % Neutrophils # (Manual) (2.00-8.90) X 10*3/uL Lymphocytes # (Manual) (0.90-5.00) X 10*3/uL Basophils # (Manual) (0.00-0.10) X 10*3/uL NRBC/100 WBC Diff (0.0-0.0) /100 WBCS ABG pH 7.32 L (7.35-7.45) ABG pO2 130 H 240 H (83-108) mmHg ABG O2 Saturation 98.7 H 99.5 H (94-97) % Chloride (98-107) mmol/L Carbon Dioxide (22-30) mmol/L BUN (9-20) mg/dL Creatinine (0.66-1.25) mg/dL Glucose (74-99) mg/dL POC Glucose (mg/dL) 186 H (75-99) mg/dL Plasma Lactic Acid Milton (0.7-2.0) mmol/L Calcium (8.4-10.2) mg/dL Magnesium (1.6-2.3) mg/dL Total Bilirubin (0.2-1.3) mg/dL AST (17-59) U/L ALT (4-49) U/L Alkaline Phosphatase (38-126) U/L Total Protein (6.3-8.2) g/dL Albumin (3.5-5.0) g/dL Microbiology - Last 24 Hours (Table) 11/08/21 09:54 Blood Culture - Preliminary Blood No Growth after 72 hours Assessment and Plan (1) Sepsis Current Visit: Yes Status: Acute Code(s): A41.9 - SEPSIS, UNSPECIFIED ORGANISM SNOMED Code(s): 00812448
--- NOTE | 2021-11-11 12:40 | XR ---
EXAMINATION TYPE: XR chest 1V portable DATE OF EXAM: 11/11/2021 Comparison: 11/11/2021 Clinical History: 51-year-old male post intubation Findings: ET tube tip 2.5 cm from the pelon. NG tube courses below the diaphragm. Right CVC tip upper right at rium. Patient is rotated altering the normal cardiac and mediastinal contours. Patchy density right m idlung is increased. Prominent left basilar consolidation and likely small effusion persists. Impression: 1. ET tube tip 2.5 cm from the pelon. 2. Rotated exam. Prominent retrocardiac and left basilar airspace disease as well as small effusion p ersist. Patchy density right midlung slightly increased.
[2021-11-11] MEDS: SODIUM CHLORIDE 0.9% 1,000 ML IV SCH ×2 (12:44→18:47)
[2021-11-11 12:59] LABS: ABG Base Excess -4.7 mmol/L; ABG HCO3 21 mmol/L (21-25); ABG Oxygen Saturation 99.5 % (94-97); ABG PCO2 41 mmHg (35-45); ABG PH 7.32 (7.35-7.45); ABG PO2 240 mmHg (83-108); ABG TCO2 23 mmol/L (19-24); Allen Test Performed? Yes
[2021-11-11] MEDS: NOREPINEPHRINE 8 MG in SODIUM CHLORIDE 0.9% 250 ML IV SCH ×2 (13:58→22:44)
--- NOTE | 2021-11-11 14:44 | P.PN ---
Subjective Progress Note Date: 11/11/21 Patient was admitted for nausea vomiting diarrhea believed to have gastroenteritis. Patient continued to have vomiting and started having abdominal tenderness because of which CT of the abdomen was obtained which showed pneumatosis coli along with some gas in the venous system concern for ischemic bowel. Patient was started on Zosyn. Patient subsequently decompensated patient became hypotensive with BP of 60/40 transferred to ICU patient was given 3 L of boluses of IV fluid NG tube was placed which showed bloody output . Patient in septic shock and receiving norepinephrine at this time. Recent echo showed normal ejection fraction. Patient had CTA of the chest which was negative for pulmonary embolism patient creatinine has worsened and went up to 2.80 today from 1.14 yesterday and this is secondary to acute tubular necrosis from sepsis and septic shock. Patient does have lactic acidosi s, patient does have lactic acidosis with lactic acidosis 7.5. Patient will be given 1 L of IV fluids continue pressor support. he is intubated and sedated. 10/31/2021 Patient is started having urine output. Patient underwent a arthrotomy yesterday and found to have ischemia of the lateral portion of the stomach and ischemia of the proximal jejunum patient underwent partial gastrectomy. Patient is presently on that to pressors maximized on norepinephrine, patient is also on vasopressin receiving albumin, IV fluids started having minimal urine output patient was anuric last night. Patient's chloride is highly elevated leading to metabolic acidosis patient also has an anion gap metabolic acidosis from lactic acidosis which appears to be improving at this time patient's overall clinical condition is guarded and the prognosis is poor. Patient Y blood cell count went down in fact patient is neutropenic now. Patient is presently not receiving any nutrition at this time. 11/01/2021 Patient is seen in follow-up continues to be closely monitored in the ICU in critical condition. Multiple medical consultations including pulmonary nail puller, cardiology, surgery following closely. Patient is status post partial gastrectomy postop day #2. Patient continues on IV Zosyn along with normal saline at 75 ML per hour. Per nursing staff patient continues on Levophed along with vasopressin for pressor support. Patient not tolerating weaning very well to assess mentation. Patient continues on sedation of propofol and will continue. Chest x-ray today shows basilar atelectasis, may be associated effusion and to correlate to exclude pneumonia. Per nursing staff there has been minimal NG tube output and of note on the x-ray the distal tip of the NG tube is obscured although unable to fully see as there is overlying artifacts with the telemetry monitoring and the patient is rotated. Patient is also having hypoglycemic events and was started on dextrose. Surgery plans for TPN for nutritional support. Family at the bedside today and their questions and concerns were answered. 11/02/2021 Patient evaluated today in the ICU he is postoperative day #3 for partial gastrectomy, currently intubated with an FiO2 of 30% with a PEEP of 5. Current oxygen saturations are 99 to 100%. Blood pressures 119/61, respirations 28, heart rate 107, afebrile. Chest x-ray today shows a stable chest with pleural effusion unchanged, perihilar and basilar infiltrates persist. Per nurse about 500 mLs output from NG tube in the last 12 hours. Continues on IV lasix, TPN, IV zosyn. Pressor support and propfol are currently on hold. Blood pressures are maintaining 120s systolic, heart rate 113 sinus tachycardia, afebrile, respirations 27. Patient with indwelling catheter, urine is dark susana, per nurse no BM since surgery, bowels are absent left lower quadrant, hypoactive to the right quadrant. Labs today show white count 6, hemoglobin 8.6, sodium 142, potassium 3.9, chloride 124, CO2 15, BUN 41, creatinine 1.39, blood glucose in the 80s, calcium 7.2, total bili 1.7, AST 145, ALT 59. Patient is being followed closely by pulmonary, cardiology, and surgical services. 11/03/2021 Patient evaluated today and closely monitored in ICU remains in critical condition. Patient's been off sedation for 24 hours. He is currently spontaneous eye opening, eyes are tracking however he does not move his face, not following motor commands unable to wiggle fingers. Once patient is more a lert may tolerate extubation. He continues to be vented, Fi02 30% with a PEEP of 5 his current oxygen saturation 96%, blood pressure 112/74, heart rate sinus tachycardic in the low 100's, he has been afebrile. Patient has been in a negative fluid balance with -1.8 Liters in the last 24 hours and received 3 doses of IV lasix which is now discontinued. Bowel sounds are hypoactive, abdominal binder in place with dressings intact to midline incision, no bowel movements or passing gas as reported by RN. Creatinine slightly increased today to 1.44, BUN 37. No white count, hemoglobin stable at 8.2, platelets decreased to 40's for the last 2 days, heparin was discontinued, continues with SCD's. Liver enzymes stable from yesterday. Continues on D10 infusion, TPN, maintaining blood pressures off pressor support. Continues on IV zosyn. Chest xray today shows unchanged pleural effusion. Patient remains in the ICU followed closely by pulmonary, cardiology, and surgical services in critical condition. Code status was changed to DNR by family. 11/04/2021 Patient evaluated today in the intensive care unit, he is more alert than yesterday. Per RN patient had a large bowel movement today and bowels are hypoactive today in all quadrants. BM was a maroon color per nurse. Abdominal binder in place. Continues with rivas catheter with over 3L of urine output in the last 24 hours, still with peripheral edema. IV lasix 60 mg x1 was given today. NGT remains in place with only 50 mLs of output overnight. Patient remains off sedation, remains off pressor support. Blood pressure today 115/69, heart rate 106, low grade fever this morning 99.2 axillary, and patient was extubated mid morning is on a 15 L HF cannula. Chest xray this morning shows stable bilateral consolidation and pleural effusion. Remains on D10 gtt at 20 mLs per hour, TPN/Lipids, and IV zosyn. Patient also received potassium suppl ementation today. Followed closely by multiple consultations including cardiology, pulmonary, and surgery and remains in guarded condition. Labs reviewed: sodium 135, potassium 3.2, chloride 120, CO2 20, BUN 45, creat 1.26, blood glucose in the 110's, AST 81, ALT and alk phos have normalized. 11/05/2021 Patient is seen and evaluated in follow-up continues to be in the ICU under close monitoring. Patient was recently extubated and continues on 5 L high flow nasal cannula and oxygen saturations have been 97-100%. Multiple medical consultations including pulmonary nail puller and surgery following closely. Chest x-ray today shows removal of endotracheal tube along with NG tube and central venous catheter on the right remains in place with no evident pneumothorax and to correlate for pneumonia, congestive heart failure, possible effusions and associated atelectasis versus edema. Patient did receive a dose of IV Lasix yesterday. Neurology consulted and CT of the brain without contrast ordered to assess mentation which is currently pending. Patient is continued on D10 and water and maintaining blood sugars in the 120s and will continue current regimen. Hemoglobin is 7.7 today with no bleeding noted. Platelets on the lower side at 65 although improved from previous and will continue to monitor closely with repeat labs in the morning. Patient also continues on IV Zosyn and will continue at this time. 11/06/2021 Patient is seen in follow-up continues to be in the ICU with multiple medical consultations following. Patient was evaluated by neurology and EEG was ordered and pending. Patient underwent CT of the brain which showed no acute abnormality noted. Patient also had chest x-ray today which shows no significant interval change compared to yesterday with continued questionable pulmonary infiltration at the mid to lower lung zones and there is some congested pulmonary vasculature with bilateral pleural effusions. Patient had been receiving one-time doses of IV Lasix daily and will add scheduled 40 mg IV Lasix and recommend repeat labs and follow-up chest x-ray. Patient is tolerating 3 L high flow via nasal cannula and maintaining oxygen saturations above 97%. Patient continues with significant weakness and PT/OT therapy consulted to follow the patient daily. Patient noted to have increased output noted in the NG tube and general surgery following an plan is for CT abdomen with contrast this afternoon. Will await report. Continues to be nothing by mouth on TPN and will continue for now. 11/07/2021 Patient is seen and continues to be closely monitored in the ICU. Patient underwent CT abdomen and pelvis which shows some resolution of the previously seen gastric pneumatosis with mild wall thickening of the stomach with questionable minimal residual pneumatosis of the second and third part of the duodenum. There is noted 3 flow of the ingested oral contrast on the ileocecal junction with no evidence of contrast leak. There are slightly dilated small bowel loops measuring 3.3 cm with no definite transition point which may suggest an element of ileus. There is some diffuse bowel thickening of the diana nonspecific and fluid-filled colon with thickened wall that may suggest colitis. Also some moderate amount of free abdominal and pelvic fluid with peritoneal fat stranding and most probably related to postoperative changes although peritonitis cannot be excluded. There is a 2.8 cm gallbladder stone with no gallbladder wall thickening or gross signs of acute cholecystitis with no definite intrahepatic focal lesions identified. And there is some bilateral nasal pleural effusions and subsegmental pulmonary atelectasis demonstrating air bronchogram within. Patient is not currently on antibiotics and patient is afebrile. WBC is 8.4, hemoglobin is 7.9, BMP is noted and magnesium is 2.4, triglycerides found to be elevated at 256. Multiple medical consultations following and will continue to follow closely. All intake of fluids have been decreased to 70 mL per hour including TPN. Recommend follow-up chest x-ray in the morning. Nursing staff reports to a bowel movement yesterday although none today. 11/08/2021 Patient continues to be in the ICU being closely monitored. Patient to continue with NG tube as patient continues to have large amounts of output noted in the container. Patient did have a bowel movement yesterday along with today per nursing staff. Patient having some low-grade temps with T-max 101.5 and IV antibiotics in the form of Zosyn have been resumed. Patient continues on TPN and is currently nothing by mouth with NG tube continued. Patient currently receiving chest physiotherapy for continued secretions noted that patient is unable to expectorate. Would encourage incentive spirometer although patient is unable to perform. Duo nebs and updrafts also ordered. Recommend blood, sputum, and urine cultures which are currently pending. Recommend repeat labs. Chest x-ray is ordered. 11/11/2021 This is a patient who has had prolonged hospitalization secondary to ischemic bowel and sepsis and has undergone gastrectomy. Patient was recently transferred out of the ICU to the [facility] unit and had become more lethargic and unresponsive patient was found unresponsive and foaming at the mouth and a code was called. Case was discussed with ICU and patient being brought back to the ICU. Patient's CODE STATUS was addressed with family per nursing staff and brother is okay with intubating the patient. Patient's CODE STATUS is no code. Patient was placed on BiPAP although continued to progress and worsen and patient is currently being intubated by pulmonary nail puller. Patient family also agreeable to pressor support and continuing current medications, per nursing just does not want CPR initiated. Chest x-ray this morning shows increased interstitial densities and increased small left pleural effusion now with more pronounced airspace disease in the retrocardiac region of the left base and correlate for pneumonia and developing pulmonary vascular congestion. Magnesium also low at 1.4 and being replaced. Review of systems: Unable to obtain as patient is currently placed back on sedation and intubated Active Medications Albuterol/Ipratropium (Ipratropium-Albuterol 3 Ml Neb) 3 ml INHALATION RT-TID [facility] Last Admin: 11/11/21 13:15 Dose: Not Given Documented by: Chlorhexidine Gluconate (Chlorhexidine Gluconate 15 Ml Cup) 15 ml MUCOUS MEM BID [facility] Enoxaparin Sodium (Enoxaparin 40 Mg/0.4 Ml Syringe) 40 mg SQ DAILY [facility] Last Admin: 11/11/21 08:08 Dose: 40 mg Documented by: Hydromorphone HCl (Hydromorphone 0.5 Mg/0.5 Ml Syringe) 0.5 mg IVP Q3HR PRN PRN Reason: Pain Last Admin: 11/10/21 22:36 Dose: 0.5 mg Documented by: Piperacillin Sod/Tazobactam (Sod 3.375 gm/ Sodium Chloride) 100 mls @ 25 mls/hr IVPB Q8HR [facility]; Protocol Last Admin: 11/11/21 08:08 Dose: 25 mls/hr Documented by: Potassium Acetate 40 meq/Calcium Gluconate 1 gm/Potassium Phosphate 6 mmol/Magnesium Sulfate 500 mg/Amino Acids/Dextrose 1,033 mls @ 70 mls/hr IV .BY DURATION [facility] Last Admin: 11/11/21 13:39 Dose: 70 mls/hr Documented by: Parenteral Vitamin Supplement 10 ml/ Zinc/Copper/Manganese/Selenium 1 ml/ Potassium Acetate 40 meq/ Calcium Gluconate 1 gm/ Potassium Phosphate 6 mmol/ Magnesium Sulfate 500 mg/ Amino Acids/Dextrose 1,044 mls @ 70 mls/hr IV .BY DURATION [facility] Propofol 1,000 mg/ IV Solution 100 mls @ 9.684 mls/hr IV .[id number] [facility]; Protocol Last Titration: 11/11/21 14:00 Dose: 50 mcg/kg/min, 24.21 mls/hr Documented by: Sodium Chloride (Saline 0.9%) 1,000 mls @ 150 mls/hr IV .Q6H40M [facility] Last Admin: 11/11/21 12:44 Dose: 150 mls/hr Documented by: Norepinephrine Bitartrate 8 mg (/ Sodium Chloride) 258 mls @ 7.808 mls/hr IV .Q24H [facility]; Protocol Last Admin: 11/11/21 13:58 Dose: Not Given Documented by: Sodium Chloride (Saline 0.9%) 2,000 mls @ 999 mls/hr IV .Q2H1M ONE Stop: 11/11/21 15:38 Last Admin: 11/11/21 13:59 Dose: 999 mls/hr Documented by: Metoclopramide HCl (Metoclopramide 5 Mg/Ml 2 Ml Vial) 10 mg IVP Q6H [facility] Last Admin: 11/11/21 14:00 Dose: 10 mg Documented by: Miscellaneous Information (Potassium Replacement Protocol 1 Each Misc) 1 each MISCELLANE DAILY PRN; Protocol PRN Reason: Per Protocol Miscellaneous Information (Magnesium Replacement Protocol 1 Each Misc) 1 each MISCELLANE DAILY PRN; Protocol PRN Reason: Per Protocol Nystatin (Nystatin 100,000 Unit/Gm Powd 15 Gm) 1 applic TOPICAL DAILY PRN; Protocol PRN Reason: Rash Ondansetron HCl (Ondansetron 4 Mg/2 Ml Vial) 4 mg IVP Q8HR PRN PRN Reason: Nausea And Vomiting Last Admin: 10/30/21 09:30 Dose: 4 mg Documented by: Pantoprazole Sodium (Pantoprazole 40 Mg/10 Ml Vial) 40 mg IVP BID [facility] Last Admin: 11/11/21 08:07 Dose: 40 mg Documented by: PHYSICAL EXAMINATION: GENERAL: Patient is 51-year-old male who is autistic and currently sedated and being intubated at this time HEENT: Pupils are round and equally reacting to light. EOMI. No scleral icterus. No conjunctival pallor. Normocephalic, atraumatic. No pharyngeal erythema. No thyromegaly. CARDIOVASCULAR: S1 and S2 muffled PULMONARY: Diminished breath sounds bilaterally with some scattered crackles and rhonchi noted ABDOMEN: Bowel sounds noted in all quadrants today. MUSCULOSKELETAL: No joint swelling or deformity. EXTREMITIES: No cyanosis, clubbing, generalized peripheral edema noted. Right upper and lower extremity cool to the touch NEUROLOGICAL: Encephalopathic, unable to completely assess, not following commands SKIN: No rashes. Assessment: -Sepsis, present on admission possibly secondary to ischemia of the lateral po rtion of the stomach and mild ischemia of the proximal jejunum -Post operative partial gastrectomy for ischemic stomach and also had ischemic ileum. -Septic shock status postoperatively -Elevated liver enzymes most probably due to hepatic congestion from fluid overload state -Anion gap metabolic acidosis secondary to lactic acidosis which improved, acidosis secondary to hyperchloremia -Hypokalemia, improved -Acute renal failure secondary to acute blood loss from septic shock -Syncope with loss of consciousness, hypotensive secondary to above, blood pressures have stabilized off pressor support -History of CVA TIA -History diabetes mellitus type 2, uncontrolled -History of hypertension, hypotensive on admission with a blood pressure in the 70s -History of autism -History of intellectual impairment -GI Prophylaxis Protonix -DVT Prophylaxis Subcu heparin -NO CODE Plan: Recommend to continue with ICU management and close monitoring. Patient was recently transferred out of the ICU to medical surgical unit although was found unresponsive and foaming at the mouth and more lethargic and a code was called. Patient was placed on BiPAP although continue to worsen and ultimately brought back to the ICU today and is currently being intubated by pulmonary nail puller at the bedside at this time. Brother agreeable to intubation although CODE STATUS is no code and also agreeable to pressor support if needed, they do not want compressions on the patient if needed. Patient is continued on IV antibiotics and will continue to closely monitor in the ICU. Patient continues to be in critical condition with guarded prognosis. Recommend repeat labs and continue with ICU monitoring at this time. Overall prognosis is extremely guarded. The impression and plan of care has been dictated by Rozina Nam, nurse practitioner as directed. Dr. John MD I have performed a history and examination and MDM of this patient, discussed the same with the dictator, and agree with the dictator's assessment and plan as written ,documented as a scribe. Based on total visit time, I have performed more than 50% of the visit. Any additional findings or plans will be noted. Objective - Vital Signs Vital signs: Vital Signs Temp 97.9 F 11/11/21 08:00 Pulse 122 H 11/11/21 04:04 Resp 52 H 11/11/21 04:04 BP 101/59 11/11/21 04:04 Pulse Ox 98 11/11/21 04:04 Intake & Output 11/10/21 11/11/21 11/11/21 18:59 06:59 18:59 Intake Total 1472 1043 Output Total 2100 400 1000 Balance -628 643 -1000 Intake: IV 440 Piperacillin-Tazobactam 3 200 .375 gm In Sodium Chloride 0.9% 100 ml @ 25 mls/hr IVPB Q8HR [facility] Rx# :[id number] Sodium Chloride 0.9% 1, 240 000 ml @ 20 mls/hr IV . Q24H [facility] Rx#:[id number] Intake, IV Titration 1032 1043 Amount Mvi, Adult No.4 with Vit 1043 K 10 ml Trace (Conc-1Ml/ Dose) 1 ml Potassium Acetate 40 meq Calcium Gluconate 1 gm Potassium Phosphate 6 mmol In Amino Acids 5 %/Dextrose 20 % 1,000 ml @ 70 mls/hr IV . BY DURATION [facility] Rx#: [id number] Potassium Acetate 40 meq 1032 Calcium Gluconate 1 gm Potassium Phosphate 6 mmol In Amino Acids 5 %/ Dextrose 20 % 1,000 ml @ 70 mls/hr IV .BY DURATION [facility] Rx#:[id number] Output: Gastric Drainage 900 1000 Urine 1200 400 Other: Voiding Method Indwelling Catheter Indwelling Catheter Indwelling Catheter # Voids 1 # Bowel Movements 0 0 ABP, PAP, CO, CI - Last Documented Arterial Blood Pressure 106/68 - Labs CBC & Chem 7: 11/11/21 04:52 11/11/21 04:52 Labs: Abnormal Lab Results - Last 24 Hours (Table) 11/10/21 11/10/21 11/10/21 Range/Units 12:28 16:54 23:33 WBC (3.8-10.6) k/uL RBC (4.30-5.90) m/uL Hgb (13.0-17.5) gm/dL Hct (39.0-53.0) % MCHC (31.0-37.0) g/dL RDW (11.5-15.5) % Plt Count (150-450) k/uL Chloride (98-107) mmol/L Carbon Dioxide (22-30) mmol/L BUN (9-20) mg/dL Creatinine (0.66-1.25) mg/dL Glucose (74-99) mg/dL POC Glucose (mg/dL) 186 H 147 H 197 H (75-99) mg/dL Plasma Lactic Acid Milton (0.7-2.0) mmol/L Calcium (8.4-10.2) mg/dL Magnesium (1.6-2.3) mg/dL Total Bilirubin (0.2-1.3) mg/dL AST (17-59) U/L ALT (4-49) U/L Alkaline Phosphatase (38-126) U/L Total Protein (6.3-8.2) g/dL Albumin (3.5-5.0) g/dL 11/11/21 11/11/21 11/11/21 Range/Units 01:31 01:50 01:50 WBC 16.3 H (3.8-10.6) k/uL RBC 3.56 L (4.30-5.90) m/uL Hgb 8.9 L D (13.0-17.5) gm/dL Hct 30.1 L (39.0-53.0) % MCHC 29.6 L (31.0-37.0) g/dL RDW 18.2 H (11.5-15.5) % Plt Count 1072 H* D (150-450) k/uL Chloride 109 H (98-107) mmol/L Carbon Dioxide (22-30) mmol/L BUN 32 H (9-20) mg/dL Creatinine 1.54 H (0.66-1.25) mg/dL Glucose 148 H (74-99) mg/dL POC Glucose (mg/dL) 158 H (75-99) mg/dL Plasma Lactic Acid Milton (0.7-2.0) mmol/L Calcium (8.4-10.2) mg/dL Magnesium 1.5 L (1.6-2.3) mg/dL Total Bilirubin 3.3 H (0.2-1.3) mg/dL AST 84 H (17-59) U/L ALT 65 H (4-49) U/L Alkaline Phosphatase 269 H (38-126) U/L Total Protein (6.3-8.2) g/dL Albumin 2.5 L (3.5-5.0) g/dL 11/11/21 11/11/21 11/11/21 Range/Units 01:50 04:52 06:46 WBC (3.8-10.6) k/uL RBC (4.30-5.90) m/uL Hgb (13.0-17.5) gm/dL Hct (39.0-53.0) % MCHC (31.0-37.0) g/dL RDW (11.5-15.5) % Plt Count (150-450) k/uL Chloride 113 H (98-107) mmol/L Carbon Dioxide 21 L (22-30) mmol/L BUN 36 H (9-20) mg/dL Creatinine 1.49 H (0.66-1.25) mg/dL Glucose 159 H (74-99) mg/dL POC Glucose (mg/dL) 180 H (75-99) mg/dL Plasma Lactic Acid Milton 3.8 H* (0.7-2.0) mmol/L Calcium 7.5 L (8.4-10.2) mg/dL Magnesium 1.4 L (1.6-2.3) mg/dL Total Bilirubin 3.1 H (0.2-1.3) mg/dL AST 74 H (17-59) U/L ALT 57 H (4-49) U/L Alkaline Phosphatase 211 H (38-126) U/L Total Protein 5.6 L (6.3-8.2) g/dL Albumin 2.1 L (3.5-5.0) g/dL 11/11/21 Range/Units 09:44 WBC (3.8-10.6) k/uL RBC (4.30-5.90) m/uL Hgb (13.0-17.5) gm/dL Hct (39.0-53.0) % MCHC (31.0-37.0) g/dL RDW (11.5-15.5) % Plt Count (150-450) k/uL Chloride (98-107) mmol/L Carbon Dioxide (22-30) mmol/L BUN (9-20) mg/dL Creatinine (0.66-1.25) mg/dL Glucose (74-99) mg/dL POC Glucose (mg/dL) 186 H (75-99) mg/dL Plasma Lactic Acid Milton (0.7-2.0) mmol/L Calcium (8.4-10.2) mg/dL Magnesium (1.6-2.3) mg/dL Total Bilirubin (0.2-1.3) mg/dL AST (17-59) U/L ALT (4-49) U/L Alkaline Phosphatase (38-126) U/L Total Protein (6.3-8.2) g/dL Albumin (3.5-5.0) g/dL Microbiology - Last 24 Hours (Table) 11/08/21 09:54 Blood Culture - Preliminary Blood No Growth after 48 hours
[2021-11-11 17:38] LABS: Anisocytosis Slight; HCT 22.1 % (39.0-53.0); Hypochromasia Marked; MCH 25.1 pg (25.0-35.0); MCHC 29.6 g/dL (31.0-37.0); MCV 84.9 fL (80.0-100.0); Mean Platelet Volume 8.6; Platelet Count 651 k/uL (150-450); RBC 2.61 m/uL (4.30-5.90); RDW 18.4 % (11.5-15.5); WBC 12.4 k/uL (3.8-10.6)
[2021-11-11 17:47] LABS: Albumin 1.9 g/dL (3.5-5.0); Calcium 7.3 mg/dL (8.4-10.2); Potassium 4.3 mmol/L (3.5-5.1); Total Bilirubin 2.1 mg/dL (0.2-1.3); Total Protein 4.9 g/dL (6.3-8.2)
[2021-11-11 17:50] LABS: HGB 6.5 gm/dL (13.0-17.5)
--- NOTE | 2021-11-11 18:15 | P.PCN ---
Date of Procedure: 11/11/21 Preoperative Diagnosis: Acute hypoxic respiratory failure Postoperative Diagnosis: Acute hypoxic respiratory failure Procedure(s) Performed: Intubation, insertion of a arterial line, bronchoscopy with bronchial alveolar lavage Anesthesia: ETTA Surgeon: Maxewll Harvey Estimated Blood Loss (ml): 0 Condition: critical Disposition: ICU Operative Findings: This procedure was done in the intensive care unit. Initially the patient was intubated and following that an arterial line was inserted and following that a bronchoscopy was performed. The patient was in significant respiratory distress, tachypneic, unresponsive on a BiPAP. This was to proceed with intubation mechanical ventilation after talking to the family. The patient was given a combination of propofol a total of 100 mg IV and Nimbex 20 mg IV for sedation and paralysis After achieving adequate sedation and paralysis, intubation process was done without any complications Intubation After achieving adequate sedation, the airway was secured and the patient was given mask ventilation. The pulse ox remained above 90% throughout the process. A kaleidoscope was used to visualize the vocal cords. There was copious amount of rest or secretions and purulent material in the vallecula, also covering the epiglottis and the cords bilaterally. Under direct visualization, #8 orotracheal tube was advanced past the vocal cords and the stylus was removed and the tube was secured in place. The tube was fixed at 22 cm lip line. A CO2 monitor was used to confirm the positioning of the tube and further bagging was done through the orotracheal tube. Ultimately, the tube was secured and there is a mechanical ventilator. Following that, a regular rate and appropriate suctioning of any residual neoplasm upper airway were done successfully Arterial line insertion Indication: Hemodynamic monitoring. A time-out was completed verifying correct patient, procedure, site, positioning, and implant(s) or special equipment if applicable. Allens test was performed to ensure adequate perfusion. The patient s left wrist was prepped and draped in sterile fashion. 1% Lidocaine was used to anesthetize the area. An 18G Arrow arterial line was introduced into the ra dial artery. The catheter was threaded over the guide wire and the needle was removed with appropriate pulsatile blood return. Blood loss was minimal. The catheter was then sutured in place to the skin and a sterile dressing applied. Perfusion to the extremity distal to the point of catheter insertion was checked and found to be adequate. bronchoscopy and bronchoalveolar lavage This procedure was done after securing the airway. The patient was already intubated by #8 orotracheal tube. The patient was sedated with propofol. The procedure was done using a disposable flexible bronchoscope. The patient was placed on on the percent FiO2. Following that, an adapter was attached and orotracheal tube and the flexible bronchoscope was easily passed through the o rotracheal tube and was advanced to the lower trachea. Distal trachea was full of creamy white rest or secretions that are occupying the airway. Similar secretions were also seen in the bilateral mainstem bronchi and previously was of lower lobes bilaterally more so on the left. Therapeutic it was suctioning was done. The secretions were irrigated with saline and there was suctioned out without any major difficulties. Airway inspection was done in the bilateral mainstem bronchi, right upper lobe bronchus regular lobe bronchus bronchus intermedius and right lower lobe bronchus and the various times segments of the right in addition to the left mainstem bronchus, left upper lobe bronchus left lower lobe bronchus and the various 8 segments of left was done and there was no endobronchial tumors or lesions identified. Secretions were encountered throughout the lungs bilaterally more so on the left. The bronchioloalveolar lavage of the left lower lobe was done were a total of 6 mL of fluid was infused and 20 mL was suctioned back without any major difficulties. Oxygenation remained above 90%. The bronchoscope was removed and the procedure was terminated and the samples were collected from the bronchial lavage of the left lower lobe were sent for microbial cultures and analysis.
[2021-11-11 18:32] LABS: Band Neutrophils % 17 %; Lymphocytes # (M) 2.48 k/uL (1.0-4.8); Metamyelocytes # (M) 0.25 k/uL (0); Metamyelocytes % 2 %; Monocytes # (M) 0.25 k/uL (0-1.0); Neutrophils % (M) 59 %; Nucleated Red Blood Cells 0 /100 WBC (0-0); Total Cells Counted 100
--- NOTE | 2021-11-11 18:54 | CT ---
EXAMINATION TYPE: CT ChestAbdPelvis wo con DATE OF EXAM: 11/11/2021 COMPARISON: CT abdomen pelvis 11/06/2021 HISTORY: Sepsis, recent abdominal surgery. CT DLP: 1026.8 mGycm Automated exposure control for dose reduction was used. Images obtained from the thoracic inlet to the floor the pelvis with no contrast. There is bilateral pleural effusions. There is moderate airspace consolidation and atelectasis at the lung bases bilaterally. Heart size is normal. There is no pericardial effusion. There is no evidence of thoracic aortic aneurysm. There are no hilar masses. There are a few mediastinal lymph nodes up t o 1 cm. There is nasogastric tube in the stomach. There is gastric surgical clips. Liver is intact. The bile ducts are not dilated. There is a single 2 cm calcified gallstone. Spleen i s intact. There is intact pancreas. There is abdominal ascites with fluid around the liver and spleen and in the paracolic gutters. There is no adrenal mass. Kidneys have normal size and contour. There is no hydronephrosis. Ureters a re not dilated. There is no retroperitoneal adenopathy. There is some contrast material in the rectum . There is Zepeda catheter in the urinary bladder. There is no inguinal hernia. There is some mild fat stranding in the small bowel mesentery. No evidence of free air. No evidence of a bowel obstruction. There are some distended small bowel fluid filled loops in the abdomen up to 2.8 cm. This is probabl y some ileus. I do not suspect a mechanical bowel obstruction. Thoracic and lumbar vertebra. Tach. There is degenerative spur formation. No compression fracture. Th e bony pelvis is intact. The hip joints are intact. Sternum is intact. There is no evidence of displa shoshana rib fracture. Shoulder joints are intact. IMPRESSION: Pleural effusions with extensive lower lobe pulmonary consolidation and atelectasis similar to old ex am. There is abdominal ascites fluid slightly improved compared to last exam. There is evidence of mild s mall bowel ileus. No free air. Cholelithiasis. There is subcutaneous edema which is mild around the abdomen pelvis and is improved compared to last exam.
[2021-11-11] MEDS: CHLORHEXIDINE GLUCONATE 15 ML CUP MUCOUS MEM SCH (20:42)
[2021-11-11] MEDS ORDERED: VANCOMYCIN IV PER PHARMACY 1 EACH MISC MISCELLANE PRN (21:36)
[2021-11-11] MEDS: ACETAMINOPHEN IV (For NPO) 1,000 MG in EMPTY BAG 1 BAG IVPB PRN (22:00)
[2021-11-11] MEDS ORDERED: VANCOMYCIN 1,750 MG in SODIUM CHLORIDE 0.9% 500 ML 500 ML IVPB ONE (23:00)
[2021-11-12 00:06] LABS: Glucose,Whole Blood 168 mg/dL (75-99)
[2021-11-12] MEDS: PIPERACILLIN-TAZOBACTAM 3.375 GM in SODIUM CHLORIDE 0.9% 100 ML IVPB SCH ×3 (00:10→15:48)
[2021-11-12] MEDS: INSULIN ASPART (NovoLOG) 100 UNIT/ML VIAL SQ SCH ×4 (00:11→17:54)
[2021-11-12] MEDS: METOCLOPRAMIDE 5 MG/ML 2 ML VIAL IVP SCH ×4 (03:10→21:00)
[2021-11-12] MEDS: SODIUM CHLORIDE 0.9% 1,000 ML IV SCH ×3 (03:10→15:04)
[2021-11-12 04:36] LABS: Ionized Calcium 5.4 mg/dL (4.5-5.3)
[2021-11-12 04:44] LABS: Albumin 1.9 g/dL (3.5-5.0); Calcium 7.3 mg/dL (8.4-10.2); Magnesium 2.3 mg/dL (1.6-2.3); Total Bilirubin 2.3 mg/dL (0.2-1.3); Total Protein 5.1 g/dL (6.3-8.2)
[2021-11-12 05:36] LABS: Anisocytosis Slight; HCT 24.1 % (39.0-53.0); HGB 7.3 gm/dL (13.0-17.5); Hypochromasia Marked; MCH 25.9 pg (25.0-35.0); MCHC 30.3 g/dL (31.0-37.0); MCV 85.6 fL (80.0-100.0); Mean Platelet Volume 8.9; Platelet Count 690 k/uL (150-450); Poikilocytosis Slight; RBC 2.82 m/uL (4.30-5.90); RDW 18.3 % (11.5-15.5)
[2021-11-12] MEDS ORDERED: 1: AMINO ACID 5%-D20W+LYTES*E* 1,000 ML 2: MVI, ADULT NO.4 WITH VIT K 10 ML, TRACE (CON IV SCH ×3 (06:00)
[2021-11-12 06:13] LABS: ABG Base Excess -6.7 mmol/L; ABG HCO3 19 mmol/L (21-25); ABG Oxygen Saturation 99.3 % (94-97); ABG PCO2 36 mmHg (35-45); ABG PH 7.34 (7.35-7.45); ABG PO2 163 mmHg (83-108); ABG TCO2 20 mmol/L (19-24)
[2021-11-12 06:19] LABS: Allen Test Performed? No
[2021-11-12 06:33] LABS: Glucose,Whole Blood 156 mg/dL (75-99)
[2021-11-12 06:54] LABS: Band Neutrophils % 2 %; Eosinophils # (M) 0.14 k/uL (0-0.7); Metamyelocytes # (M) 0.57 k/uL (0); Metamyelocytes % 4 %; Myelocytes # (M) 0.14 k/uL (0); Myelocytes % 1 %; Neutrophils % (M) 76 %; Nucleated Red Blood Cells 1 /100 WBC (0-0); Total Cells Counted 200
[2021-11-12 06:55] LABS: Monocytes # (M) 0.71 k/uL (0-1.0); WBC 14.2 k/uL (3.8-10.6)
[2021-11-12] MEDS: IPRATROPIUM-ALBUTEROL 3 ML NEB INHALATION SCH ×3 (08:47→19:55)
--- NOTE | 2021-11-12 09:23 | P.PN ---
Subjective Progress Note Date: 11/12/21 On the morning of 11/11/2021, the patient became acutely short of breath and the patient got transferred to the intensive care unit. The patient is known to me and I think in care of this patient last week as the patient had a extensive gastric surgery with partial gastrectomy , and the patient is postop day #12. The patient was taken to the operating room and the patient was found to have ischemia of the lateral portion of the stomach and mild/minimal ischemia of the proximal jejunum. The patient underwent a exploratory laparotomy and the patient underwent a partial gastrectomyand postop, the patient was treated for multisystem organ failure on his condition was stabilized and he got to point where the patient was extubated and he was transferred to a medical floor. Nevertheless, he was still maintained nothing by mouth. NG tube was still in place. The patient was receiving TPN for nutritional support. The patient was noted to be more lethargic yesterday. Overnight, the patient became unresponsive above and beyond his baseline knowing that he has baseline mental retardation. He was having also coarse breath sounds bilaterally and he was also found to be foaming at the mouth and he was having moderate degree of respiratory distress. Subsequently, he became more hypotensive, hypoxic and he was placed on a nonrebreather facemask and he was found to be febrile with tempe rature 103.2. At that point, the patient got transferred to the intensive care unit. Once in the ICU, the patient was placed On a BiPAP at a pressure of 14/6 cm of water with an FiO2 of 50%. His current meds ventilation is around 33. Respiratory rate is quite elevated at around above 50. He was hypotensive initially and he was given IV fluids total of 2 L of normal saline in the coming blood pressure is 108/69. His heart rate is sinus at the rate of 113. He is on a maintenance IV fluids with 0.9 and this will be increased to be related 150 mL an hour. Urine output is minimal at this point in time his blood work from this morning is showing an acute kidney injury in the creatinine is up to 1.49 with a BUN of 36 and the sodium level of 141. The white cell count is also elevated at 16.3. The incision over the abdomen looks dry clean and intact. Bowel sounds are hypoactive. NG tube is in place and it has drained approximately 400 mL since arrival to the intensive care unit. I was told that the angina but was quite elevated in order of 800 mL every 8 hours. On examination, the patient is unresponsive. He is not following any commands. His breathing is very much limited and he has coarse breath sounds on throughout the lung barkley bilaterally. He remains on IV Zosyn. He remains on TPN for nutritional support. His causes status is DO NOT RESUSCITATE/DO NOT INTUBATE. On 11/12/2021, the patient is intubated on a mechanical ventilator. Note that the patient is postop day #13 after his initial surgery which included a partial gastrectomy and this was done for an acute abdomen. At that time, the patient was found to have gastric ischemia/necrosis and he required extensive surgery for ischemia of the lateral portion of the stomach and ischemic changes in the proximal jejunum. In any rate, the patient got transferred to the ICU yesterday because of acute hypoxic respiratory failure, acute tachypnea, shortness of breath, and drop in urine output. Immediately, the patient was intubated and placed on a mechanical ventilator. Post intubation, the patient underwent a bronchoscopy which revealed copious amount of rest or secretions in the upper airway and in the lungs bilaterally more so on the left. At that point, bronchoscopy was done and therapeutic it was suctioning was done. The lavage was sent for cultures from the left lower lobe and the results are still pending for now. Meanwhile, the patient underwent a computed tomography scan of the c hest and abdomen and this was completed yesterday and based on the findings, the patient has evidence of bilateral pulmonary infiltrates most on the left lower lobe consistent with pneumonia. The patient also had some pleural effusion on the left. There was consolidation of the lung bases/atelectasis. There was abdominal ascites that had improved. There was evidence of mild small bowel ileus. There was also evidence of subcutaneous edema as expected. Case was discussed with general surgery. No role for any surgical intervention this point in time. Hemoglobin was low at 5.6.5 and the patient was given packed RBC transfusion 1. Morning hemoglobin is at 7.3. Meanwhile, the patient is sedated at and the patient is currently on propofol running at 50 mcg/kg per minute and the patient is on a mechanical ventilator. This morning, is on assist control of 28, tidal volume of 400, FiO2 of 50% with a PEEP of 5. Chest x-ray showing left lower lobe atelectasis/consolidation. Blood gas shows a pH of 7.34 with a pCO2 of 36 and pO2 of 163. NG tube is in place. Output is been in order of 500 mL over the past 8 hours. The output was somewhat bloody/blood- tinged. No ion blood. No blood clots. No coffee-ground material. Patient continues to be on TPN for nutritional support. Antibiotic coverage includes a combination of Zosyn and vancomycin was also added yesterday due to concern of an underlying staphylococcal superinfection. Note that the patient was febrile overnight and currently is afebrile. Creatinine is improving and creatinine is down to 1.17. The patient was resuscitated aggressively with IV fluids. He was given a total of 3 L of fluid yesterday. His creatinine is down to 1.1 and the BUN is down to 38. Serum bicarb is at 17 with a sodium level of 142. Current maintenance IV fluids in the form of normal saline at the rate of 150 mL an hour. Overall fluid balance since yesterday has been in the order of +5.9 L. The patient is not requiring any pressors for now. Blood pressure is improved. Urine output is also improved. Objective - Vital Signs Vital signs: Vital Signs Temp 97.5 F L 11/12/21 04:00 Pulse 84 11/12/21 08:57 Resp 28 H 11/12/21 07:00 BP 124/54 11/12/21 01:29 Pulse Ox 99 11/12/21 07:00 Intake & Output 11/11/21 11/12/21 11/12/21 18:59 06:59 18:59 Intake Total 4986.505 4113.371 309.981 Output Total 2200 975 210 Balance 2786.505 3138.371 99.981 Weight 80.7 kg Intake: IV 4100 3424 220 OMFIRMEV 100 PRBC's 277 Piperacillin-Tazobactam 3 100 100 .375 gm In Sodium Chloride 0.9% 100 ml @ 25 mls/hr IVPB Q8HR [facility] Rx# :[id number] Sodium Chloride 0.9% 1, 1650 150 000 ml @ 20 mls/hr IV . Q24H [facility] Rx#:[id number] Sodium Chloride 0.9% 2, 4000 000 ml @ 999 mls/hr IV . Q2H1M [facility] Rx#:[id number] TPN/MVI 630 70 Vancomycin 667 Intake, IV Titration 886.505 412.371 89.981 Amount Norepinephrine 8 mg In 64.724 Sodium Chloride 0.9% 250 ml @ 0.05 MCG/KG/MIN 7. 808 mls/hr IV .Q24H [facility] Rx#:[id number] Sodium Chloride 0.9% 1, 750 150 000 ml @ 150 mls/hr IV . Q6H40M [facility] Rx#:[id number] propofoL 1,000 mg In 136.505 197.647 89.981 Empty Bag 1 bag @ 20 MCG/ KG/MIN 9.684 mls/hr IV . [id number] [facility] Rx#:[id number] Blood Product 277 Rc Pheresis 2 As3 Unit 277 [id number] Output: Gastric Drainage 1000 190 150 Urine 800 785 60 Oral Regurgitation 400 Other: Voiding Method Indwelling Catheter Indwelling Catheter ABP, PAP, CO, CI - Last Documented Arterial Blood Pressure 134/55 - Exam GENERAL: Patient is responsive, breathing is comfortable and the patient is currently sedated with propofol and his quite successful mechanical ventilator. No tachypnea. No use of excessive muscle breathing. NGgastric and orotracheal tube are both in place. Head exam was generally normal. There was no scleral icterus or corneal arcus. Mucous membranes were moist. HEENT: Pupils are round and equally reacting to light. EOMI. No scleral icterus. No conjunctival pallor. Normocephalic, atraumatic. No pharyngeal erythema. No thyromegaly. Orogastric and orotracheal tube are both in place. CARDIOVASCULAR: S1 and S2 present. No murmurs, rubs, or gallops. PULMONARY: Diffuse rhonchi heard throughout the lung barkley bilaterally. The patient has diminished breath on the left lung base. ABDOMEN: Absent bowel sounds and the surgical wound site over the mid abdomen is dry clean and intact. No direct tenderness. No rebound tenderness. No guarding. No organomegaly. The surgical wound site over the abdominal wall is dry clean and intact. NG tube is in place. Bowel sounds remain absent. MUSCULOSKELETAL: No joint swelling or deformity. EXTREMITIES: Extremities are cold and clammy and there are diminished pulses in all 4 extremities. No cyanosis. No clubbing. NEUROLOGICAL still somnolent and lethargic, not grimacing to deep painful stimulation. Not following commands and the patient is currently sedated with propofol. Examination of the skin revealed no evidence of significant rashes, suspicious appearing nevi or other concerning lesions. - Labs CBC & Chem 7: 11/12/21 04:10 11/12/21 04:10 Labs: Abnormal Lab Results - Last 24 Hours (Table) 10/30/21 11/11/21 11/11/21 Range/Units 10:20 04:52 09:44 WBC 16.42 H (4.50-10.00) X 10*3/uL RBC 2.98 L (4.40-5.60) X 10*6/uL Hgb 7.2 L (13.0-17.0) g/dL Hct 25.3 L (39.6-50.0) % MCH 24.2 L (27.0-32.0) pg MCHC 28.5 L (32.0-37.0) g/dL RDW 18.9 H (11.5-14.5) % Plt Count 718 H (140-440) X 10*3/uL Plt Count Comment INCREASED A Absolute Nucleated RBC 0.24 H (0.00-0.00) X 10*3/uL Metamyelocytes % 4 H (0-0) % Myelocytes % 1 H (0-0) % Neutrophils # (Manual) 13.96 H (2.00-8.90) X 10*3/uL Lymphocytes # (Manual) 0.66 L (0.90-5.00) X 10*3/uL Basophils # (Manual) 0.49 H (0.00-0.10) X 10*3/uL Metamyelocytes # (Man) (0) k/uL Myelocytes # (Manual) (0) k/uL Nucleated RBCs (0-0) /100 WBC NRBC/100 WBC Diff 1.5 H (0.0-0.0) /100 WBCS ABG pH (7.35-7.45) ABG pO2 (83-108) mmHg ABG HCO3 (21-25) mmol/L ABG O2 Saturation (94-97) % Chloride (98-107) mmol/L Carbon Dioxide (22-30) mmol/L BUN (9-20) mg/dL Creatinine (0.66-1.25) mg/dL Glucose (74-99) mg/dL POC Glucose (mg/dL) 186 H (75-99) mg/dL Calcium (8.4-10.2) mg/dL Ionized Calcium Azucena (4.5-5.3) mg/dL Total Bilirubin (0.2-1.3) mg/dL AST (17-59) U/L ALT (4-49) U/L Alkaline Phosphatase (38-126) U/L Total Protein (6.3-8.2) g/dL Albumin (3.5-5.0) g/dL Crossmatch See Detail 11/11/21 11/11/21 11/11/21 Range/Units 10:25 12:54 17:25 WBC 12.4 H (4.50-10.00) X 10*3/uL RBC 2.61 L (4.40-5.60) X 10*6/uL Hgb 6.5 L* D (13.0-17.0) g/dL Hct 22.1 L (39.6-50.0) % MCH (27.0-32.0) pg MCHC 29.6 L (32.0-37.0) g/dL RDW 18.4 H (11.5-14.5) % Plt Count 651 H (140-440) X 10*3/uL Plt Count Comment Absolute Nucleated RBC (0.00-0.00) X 10*3/uL Metamyelocytes % (0-0) % Myelocytes % (0-0) % Neutrophils # (Manual) 9.40 H (2.00-8.90) X 10*3/uL Lymphocytes # (Manual) (0.90-5.00) X 10*3/uL Basophils # (Manual) (0.00-0.10) X 10*3/uL Metamyelocytes # (Man) 0.25 H (0) k/uL Myelocytes # (Manual) (0) k/uL Nucleated RBCs (0-0) /100 WBC NRBC/100 WBC Diff (0.0-0.0) /100 WBCS ABG pH 7.32 L (7.35-7.45) ABG pO2 130 H 240 H (83-108) mmHg ABG HCO3 (21-25) mmol/L ABG O2 Saturation 98.7 H 99.5 H (94-97) % Chloride (98-107) mmol/L Carbon Dioxide (22-30) mmol/L BUN (9-20) mg/dL Creatinine (0.66-1.25) mg/dL Glucose (74-99) mg/dL POC Glucose (mg/dL) (75-99) mg/dL Calcium (8.4-10.2) mg/dL Ionized Calcium Azucena (4.5-5.3) mg/dL Total Bilirubin (0.2-1.3) mg/dL AST (17-59) U/L ALT (4-49) U/L Alkaline Phosphatase (38-126) U/L Total Protein (6.3-8.2) g/dL Albumin (3.5-5.0) g/dL Crossmatch 11/11/21 11/11/21 11/12/21 Range/Units 17:25 19:05 00:05 WBC (4.50-10.00) X 10*3/uL RBC (4.40-5.60) X 10*6/uL Hgb (13.0-17.0) g/dL Hct (39.6-50.0) % MCH (27.0-32.0) pg MCHC (32.0-37.0) g/dL RDW (11.5-14.5) % Plt Count (140-440) X 10*3/uL Plt Count Comment Absolute Nucleated RBC (0.00-0.00) X 10*3/uL Metamyelocytes % (0-0) % Myelocytes % (0-0) % Neutrophils # (Manual) (2.00-8.90) X 10*3/uL Lymphocytes # (Manual) (0.90-5.00) X 10*3/uL Basophils # (Manual) (0.00-0.10) X 10*3/uL Metamyelocytes # (Man) (0) k/uL Myelocytes # (Manual) (0) k/uL Nucleated RBCs (0-0) /100 WBC NRBC/100 WBC Diff (0.0-0.0) /100 WBCS ABG pH (7.35-7.45) ABG pO2 (83-108) mmHg ABG HCO3 (21-25) mmol/L ABG O2 Saturation (94-97) % Chloride 117 H (98-107) mmol/L Carbon Dioxide 19 L (22-30) mmol/L BUN 39 H (9-20) mg/dL Creatinine 1.42 H (0.66-1.25) mg/dL Glucose 161 H (74-99) mg/dL POC Glucose (mg/dL) 168 H (75-99) mg/dL Calcium 7.3 L (8.4-10.2) mg/dL Ionized Calcium Azucena (4.5-5.3) mg/dL Total Bilirubin 2.1 H (0.2-1.3) mg/dL AST 86 H (17-59) U/L ALT 50 H (4-49) U/L Alkaline Phosphatase 147 H (38-126) U/L Total Protein 4.9 L (6.3-8.2) g/dL Albumin 1.9 L (3.5-5.0) g/dL Crossmatch See Detail 11/12/21 11/12/21 11/12/21 Range/Units 04:10 04:10 05:45 WBC 14.2 H (4.50-10.00) X 10*3/uL RBC 2.82 L (4.40-5.60) X 10*6/uL Hgb 7.3 L (13.0-17.0) g/dL Hct 24.1 L (39.6-50.0) % MCH (27.0-32.0) pg MCHC 30.3 L (32.0-37.0) g/dL RDW 18.3 H (11.5-14.5) % Plt Count 690 H (140-440) X 10*3/uL Plt Count Comment Absolute Nucleated RBC (0.00-0.00) X 10*3/uL Metamyelocytes % (0-0) % Myelocytes % (0-0) % Neutrophils # (Manual) 11.00 H (2.00-8.90) X 10*3/uL Lymphocytes # (Manual) (0.90-5.00) X 10*3/uL Basophils # (Manual) (0.00-0.10) X 10*3/uL Metamyelocytes # (Man) 0.57 H (0) k/uL Myelocytes # (Manual) 0.14 H (0) k/uL Nucleated RBCs 1 H (0-0) /100 WBC NRBC/100 WBC Diff (0.0-0.0) /100 WBCS ABG pH 7.34 L (7.35-7.45) ABG pO2 163 H (83-108) mmHg ABG HCO3 19 L (21-25) mmol/L ABG O2 Saturation 99.3 H (94-97) % Chloride 119 H (98-107) mmol/L Carbon Dioxide 17 L (22-30) mmol/L BUN 38 H (9-20) mg/dL Creatinine (0.66-1.25) mg/dL Glucose 195 H (74-99) mg/dL POC Glucose (mg/dL) (75-99) mg/dL Calcium 7.3 L (8.4-10.2) mg/dL Ionized Calcium Azucena 5.4 H (4.5-5.3) mg/dL Total Bilirubin 2.3 H (0.2-1.3) mg/dL AST 94 H (17-59) U/L ALT (4-49) U/L Alkaline Phosphatase 147 H (38-126) U/L Total Protein 5.1 L (6.3-8.2) g/dL Albumin 1.9 L (3.5-5.0) g/dL Crossmatch 11/12/21 Range/Units 06:32 WBC (4.50-10.00) X 10*3/uL RBC (4.40-5.60) X 10*6/uL Hgb (13.0-17.0) g/dL Hct (39.6-50.0) % MCH (27.0-32.0) pg MCHC (32.0-37.0) g/dL RDW (11.5-14.5) % Plt Count (140-440) X 10*3/uL Plt Count Comment Absolute Nucleated RBC (0.00-0.00) X 10*3/uL Metamyelocytes % (0-0) % Myelocytes % (0-0) % Neutrophils # (Manual) (2.00-8.90) X 10*3/uL Lymphocytes # (Manual) (0.90-5.00) X 10*3/uL Basophils # (Manual) (0.00-0.10) X 10*3/uL Metamyelocytes # (Man) (0) k/uL Myelocytes # (Manual) (0) k/uL Nucleated RBCs (0-0) /100 WBC NRBC/100 WBC Diff (0.0-0.0) /100 WBCS ABG pH (7.35-7.45) ABG pO2 (83-108) mmHg ABG HCO3 (21-25) mmol/L ABG O2 Saturation (94-97) % Chloride (98-107) mmol/L Carbon Dioxide (22-30) mmol/L BUN (9-20) mg/dL Creatinine (0.66-1.25) mg/dL Glucose (74-99) mg/dL POC Glucose (mg/dL) 156 H (75-99) mg/dL Calcium (8.4-10.2) mg/dL Ionized Calcium Azucena (4.5-5.3) mg/dL Total Bilirubin (0.2-1.3) mg/dL AST (17-59) U/L ALT (4-49) U/L Alkaline Phosphatase (38-126) U/L Total Protein (6.3-8.2) g/dL Albumin (3.5-5.0) g/dL Crossmatch Microbiology - Last 24 Hours (Table) 11/11/21 12:00 Fungal Culture - Preliminary Bronchial Washings - Random 11/11/21 12:00 Acid Fast Bacilli Culture - Preliminary Bronchial Washings - Random 11/11/21 12:00 Bronchial Washings Culture - Preliminary Bronchoalviolar Lavage - Left 11/11/21 12:30 Gram Stain - Preliminary Bronchial Washings - Random Bronchial Washings Culture - Preliminary 11/10/21 18:03 Blood Culture - Preliminary Blood No Growth after 24 hours 11/11/21 12:30 Acid Fast Bacilli Culture - Preliminary Bronchial Washings - Random 11/11/21 12:30 Fungal Culture - Preliminary Bronchial Washings - Random 11/08/21 09:54 Blood Culture - Preliminary Blood No Growth after 72 hours Assessment and Plan Plan: 1 partial gastrectomy as the patient was found to have ischemic anterior gastric wall with questionable small bowel ischemia. The patient underwent partial gastrectomy and the patient is postop day #13. The patient had a setback yesterday when the patient decompensated and was brought in to the ICU with acute hypoxic respiratory failure, acidosis, and acute kidney injury. The patient was thought to have aspirated and the patient has developed a left lower lobe consolidation/atelectasis and the patient is currently intubated on a mechanical ventilator. The CAT scan of the abdomen shows some mild ascites, questionable ileus, contrast still present in the rectum and there is also evidence of subcutaneous edema. The patient continues to receive TPN for nutritional support. NG output was noted. Concern for upper GI bleed 2 acute pneumonia with left lower lobe consolidation/atelectasis and copious amount of rest or secretions post bronchoscopy and therapeutic it was suctioning and lavage of the left lower lobe. Currently on a combination of Zosyn and vancomycin awaiting further cultures. Currently intubated on a mechanical ventilator. 3 acute hypoxic respiratory failure , secondary to above currently intubated on a mechanical ventilator 3 acute lactic acidosis, secondary to above, improved, lactic acid level was 3.8 yesterday and this morning is down to 1.5 4 acute kidney injury, improving with fluid resuscitation sugars are fine 5 history of CVA 6 diabetes mellitus 7 hypertension 8 Developmental delay and autism 9 episodic hypoglycemia, recovered and the patient was receiving TPN for nutritional support 10 Acute blood loss anemia, expected outcome post gastric surgery and the hemoglobin is stable at 7.3 and the patient is not showing any signs of acute bleeding at this point in time. NG tube is being monitored very closely. General surgeries on the case. Plan Continue ventilator support normal saline @150 cc/hr Continued IV Zosyn and vanco Awaiting BAL results Continue TPN for nutritional support pressors if needed Check echocardiogram done on 10/29/2032 showed an ejection fraction of 60-65% Monitor CVP Keep the patient nothing by mouth DNR/DNI Family will be arriving to the hospital. Possible end-of-life care based on his baseline developmental delay and mental retardation in addition to extensive comorbidities as mentioned above. We'll continue to follow. We'll support this case in the ICU, awaiting family to arrive. Critically care evaluation that was done more than 30 minutes Time with Patient: Greater than 30
[2021-11-12] MEDS: ENOXAPARIN 40 MG/0.4 ML SYRINGE SQ SCH (09:27)
[2021-11-12] MEDS: PANTOPRAZOLE 40 MG/10 ML VIAL IVP SCH ×2 (09:27→21:00)
[2021-11-12] MEDS: CHLORHEXIDINE GLUCONATE 15 ML CUP MUCOUS MEM SCH ×2 (09:27→21:00)
--- NOTE | 2021-11-12 09:50 | XR ---
EXAMINATION TYPE: XR chest 1V portable DATE OF EXAM: 11/12/2021 COMPARISON: 11/11/2021 HISTORY: Shortness of breath TECHNIQUE: Single frontal view of the chest is obtained. FINDINGS: ET and NG tube stable. Right-sided central line stable. Left lower lobe infiltrate and sma ll effusion. No pneumothorax. Coarsened interstitium. Small right pleural effusion. Hypertrophic and degenerative change of the spine. IMPRESSION: 1. Bilateral infiltrate greater on the left with small left effusion. Correlate for interstitial pneu monitis or venous congestion. Findings stable.
[2021-11-12] MEDS: VANCOMYCIN 1,500 MG in SODIUM CHLORIDE 0.9% 250 ML IVPB SCH ×2 (10:41→21:00)
[2021-11-12 12:00] LABS: Glucose,Whole Blood 153 mg/dL (75-99)
--- NOTE | 2021-11-12 13:56 | P.PN ---
<Anabelle Benavidez - Last Filed: 11/12/21 13:50> Subjective Progress Note Date: 11/12/21 CHIEF COMPLAINT: Abdominal pain HISTORY OF PRESENT ILLNESS: Patient is status post exploratory laparotomy with partial gastrectomy for ischemia of the lateral portion of the stomach and mild ischemia noted of the proximal jejunal. Postop day #13. Patient currently in the ICU and intubated after episode of hypotension and acute respiratory failure with possible aspiration pneumonia. Patient had bronchoscopy yesterday. Computed tomography scan abdomen and pelvis showing pleural effusions with extensive lower lobe pulmonary consolidation and atelectasis. Old exam. There is abdominal ascites fluid slightly improved compared to last exam. There is evidence of mild small bowel ileus. No free air. Cholelithiasis. There is subcutaneous edema which is mild around the abdomen and pelvis and is improved compared to last exam. Per nursing staff no bowel movements reported. His hemoglobin did go from 6.5-7.3 after 1 unit of blood. Patient did have a fever of 101.8 last night. WBC 14.2 He is currently off pressors. He had some blood noted coming out of his NG tube. It is now changed to a bile color with tinge of blood. NG tube output has been high. PHYSICAL EXAM: VITAL SIGNS: Reviewed. GENERAL: Intubated HEENT: Moist buccal mucosa. Head is atraumatic, normocephalic. ABDOMEN: Soft. Nondistended. Nontender, Incision site clean dry and intact ASSESSMENT: 1. Ischemia of the lateral portion of the stomach and mild ischemia of the proximal jejunum status post exploratory laparotomy and partial gastrectomy. 2. Septic shock 3. Possible toxic metabolic encephalopathy 4. Postoperative ileus 5. Thrombocytopenia resolved 6. Pneumonia 7. Anemia status post 1 unit of blood. PLAN: -Continue ICU management -Continue supportive care -Continue IV fluids -Continue NG tube for decompression. Continue to monitor NG tube output closely -Keep patient nothing by mouth -Continue antibiotics antibiotics -Continue Reglan for ileus -Continue TPN for nutrition support -CODE STATUS DO NOT RESUSCITATE -DVT prophylaxis Lovenox Physician Popcorn Attendant note has been reviewed by physician. Signing provider agrees with the documented findings, assessment, and plan of care. Objective - Vital Signs Vital signs: Vital Signs Temp 99.6 F 11/12/21 12:00 Pulse 92 11/12/21 12:00 Resp 31 H 11/12/21 12:00 BP 124/54 11/12/21 01:29 Pulse Ox 99 11/12/21 12:00 Intake & Output 11/11/21 11/12/21 11/12/21 18:59 06:59 18:59 Intake Total 4986.505 4113.371 1915.523 Output Total 2200 975 1140 Balance 2786.505 3138.371 775.523 Weight 80.7 kg Intake: IV 4100 3424 1490 OMFIRMEV 100 PRBC's 277 Piperacillin-Tazobactam 3 100 100 100 .375 gm In Sodium Chloride 0.9% 100 ml @ 25 mls/hr IVPB Q8HR [facility] Rx# :[id number] Sodium Chloride 0.9% 1, 1650 900 000 ml @ 20 mls/hr IV . Q24H [facility] Rx#:[id number] Sodium Chloride 0.9% 2, 4000 000 ml @ 999 mls/hr IV . Q2H1M [facility] Rx#:[id number] TPN/MVI 630 490 Vancomycin 667 Intake, IV Titration 886.505 412.371 425.523 Amount Norepinephrine 8 mg In 64.724 Sodium Chloride 0.9% 250 ml @ 0.05 MCG/KG/MIN 7. 808 mls/hr IV .Q24H [facility] Rx#:[id number] Sodium Chloride 0.9% 1, 750 150 000 ml @ 150 mls/hr IV . Q6H40M [facility] Rx#:[id number] Vancomycin 1,500 mg In 250 Sodium Chloride 0.9% 250 ml @ 125 mls/hr IVPB Q12HR [facility] Rx#:[id number] propofoL 1,000 mg In 136.505 197.647 175.523 Empty Bag 1 bag @ 20 MCG/ KG/MIN 9.684 mls/hr IV . [id number] [facility] Rx#:[id number] Blood Product 277 Rc Pheresis 2 As3 Unit 277 [id number] Output: Gastric Drainage 1000 190 600 Urine 800 785 540 Oral Regurgitation 400 Other: Voiding Method Indwelling Catheter Indwelling Catheter ABP, PAP, CO, CI - Last Documented Arterial Blood Pressure 127/51 - Labs CBC & Chem 7: 11/12/21 04:10 11/12/21 04:10 Labs: Abnormal Lab Results - Last 24 Hours (Table) 10/30/21 11/11/21 11/11/21 Range/Units 10:20 17:25 17:25 WBC 12.4 H (3.8-10.6) k/uL RBC 2.61 L (4.30-5.90) m/uL Hgb 6.5 L* D (13.0-17.5) gm/dL Hct 22.1 L (39.0-53.0) % MCHC 29.6 L (31.0-37.0) g/dL RDW 18.4 H (11.5-15.5) % Plt Count 651 H (150-450) k/uL Neutrophils # (Manual) 9.40 H (1.3-7.7) k/uL Metamyelocytes # (Man) 0.25 H (0) k/uL Myelocytes # (Manual) (0) k/uL Nucleated RBCs (0-0) /100 WBC ABG pH (7.35-7.45) ABG pO2 (83-108) mmHg ABG HCO3 (21-25) mmol/L ABG O2 Saturation (94-97) % Chloride 117 H (98-107) mmol/L Carbon Dioxide 19 L (22-30) mmol/L BUN 39 H (9-20) mg/dL Creatinine 1.42 H (0.66-1.25) mg/dL Glucose 161 H (74-99) mg/dL POC Glucose (mg/dL) (75-99) mg/dL Calcium 7.3 L (8.4-10.2) mg/dL Ionized Calcium Azucena (4.5-5.3) mg/dL Total Bilirubin 2.1 H (0.2-1.3) mg/dL AST 86 H (17-59) U/L ALT 50 H (4-49) U/L Alkaline Phosphatase 147 H (38-126) U/L Total Protein 4.9 L (6.3-8.2) g/dL Albumin 1.9 L (3.5-5.0) g/dL Crossmatch See Detail 11/11/21 11/12/21 11/12/21 Range/Units 19:05 00:05 04:10 WBC (3.8-10.6) k/uL RBC (4.30-5.90) m/uL Hgb (13.0-17.5) gm/dL Hct (39.0-53.0) % MCHC (31.0-37.0) g/dL RDW (11.5-15.5) % Plt Count (150-450) k/uL Neutrophils # (Manual) (1.3-7.7) k/uL Metamyelocytes # (Man) (0) k/uL Myelocytes # (Manual) (0) k/uL Nucleated RBCs (0-0) /100 WBC ABG pH (7.35-7.45) ABG pO2 (83-108) mmHg ABG HCO3 (21-25) mmol/L ABG O2 Saturation (94-97) % Chloride 119 H (98-107) mmol/L Carbon Dioxide 17 L (22-30) mmol/L BUN 38 H (9-20) mg/dL Creatinine (0.66-1.25) mg/dL Glucose 195 H (74-99) mg/dL POC Glucose (mg/dL) 168 H (75-99) mg/dL Calcium 7.3 L (8.4-10.2) mg/dL Ionized Calcium Azucena 5.4 H (4.5-5.3) mg/dL Total Bilirubin 2.3 H (0.2-1.3) mg/dL AST 94 H (17-59) U/L ALT (4-49) U/L Alkaline Phosphatase 147 H (38-126) U/L Total Protein 5.1 L (6.3-8.2) g/dL Albumin 1.9 L (3.5-5.0) g/dL Crossmatch See Detail 11/12/21 11/12/21 11/12/21 Range/Units 04:10 05:45 06:32 WBC 14.2 H (3.8-10.6) k/uL RBC 2.82 L (4.30-5.90) m/uL Hgb 7.3 L (13.0-17.5) gm/dL Hct 24.1 L (39.0-53.0) % MCHC 30.3 L (31.0-37.0) g/dL RDW 18.3 H (11.5-15.5) % Plt Count 690 H (150-450) k/uL Neutrophils # (Manual) 11.00 H (1.3-7.7) k/uL Metamyelocytes # (Man) 0.57 H (0) k/uL Myelocytes # (Manual) 0.14 H (0) k/uL Nucleated RBCs 1 H (0-0) /100 WBC ABG pH 7.34 L (7.35-7.45) ABG pO2 163 H (83-108) mmHg ABG HCO3 19 L (21-25) mmol/L ABG O2 Saturation 99.3 H (94-97) % Chloride (98-107) mmol/L Carbon Dioxide (22-30) mmol/L BUN (9-20) mg/dL Creatinine (0.66-1.25) mg/dL Glucose (74-99) mg/dL POC Glucose (mg/dL) 156 H (75-99) mg/dL Calcium (8.4-10.2) mg/dL Ionized Calcium Azucena (4.5-5.3) mg/dL Total Bilirubin (0.2-1.3) mg/dL AST (17-59) U/L ALT (4-49) U/L Alkaline Phosphatase (38-126) U/L Total Protein (6.3-8.2) g/dL Albumin (3.5-5.0) g/dL Crossmatch 11/12/21 Range/Units 11:58 WBC (3.8-10.6) k/uL RBC (4.30-5.90) m/uL Hgb (13.0-17.5) gm/dL Hct (39.0-53.0) % MCHC (31.0-37.0) g/dL RDW (11.5-15.5) % Plt Count (150-450) k/uL Neutrophils # (Manual) (1.3-7.7) k/uL Metamyelocytes # (Man) (0) k/uL Myelocytes # (Manual) (0) k/uL Nucleated RBCs (0-0) /100 WBC ABG pH (7.35-7.45) ABG pO2 (83-108) mmHg ABG HCO3 (21-25) mmol/L ABG O2 Saturation (94-97) % Chloride (98-107) mmol/L Carbon Dioxide (22-30) mmol/L BUN (9-20) mg/dL Creatinine (0.66-1.25) mg/dL Glucose (74-99) mg/dL POC Glucose (mg/dL) 153 H (75-99) mg/dL Calcium (8.4-10.2) mg/dL Ionized Calcium Azucena (4.5-5.3) mg/dL Total Bilirubin (0.2-1.3) mg/dL AST (17-59) U/L ALT (4-49) U/L Alkaline Phosphatase (38-126) U/L Total Protein (6.3-8.2) g/dL Albumin (3.5-5.0) g/dL Crossmatch Microbiology - Last 24 Hours (Table) 11/08/21 09:54 Blood Culture - Preliminary Blood No Growth after 96 hours 11/11/21 12:00 Fungal Culture - Preliminary Bronchial Washings - Random 11/11/21 12:00 Acid Fast Bacilli Culture - Preliminary Bronchial Washings - Random 11/11/21 12:00 Bronchial Washings Culture - Preliminary Bronchoalviolar Lavage - Left 11/11/21 12:30 Gram Stain - Preliminary Bronchial Washings - Random Bronchial Washings Culture - Preliminary 11/10/21 18:03 Blood Culture - Preliminary Blood No Growth after 24 hours 11/11/21 12:30 Acid Fast Bacilli Culture - Preliminary Bronchial Washings - Random 11/11/21 12:30 Fungal Culture - Preliminary Bronchial Washings - Random <Alberto Torres - Last Filed: 11/12/21 16:13> Subjective I have personally seen and examined the patient, reviewed the [employer] /PAs history, exam and MDM and agree with the assessment and plan as written. Based on total visit time, I have performed more than 50% of the visit. As above: CAT scan reviewed. There is a fluid collection anterior to the staple line with a pocket of air as well. There may even be a small amount of contrast material within that. There is another small 1-2 cm foci of free intraperitoneal air to the right side of this. Both of these findings consistent with leak from the staple line in all likelihood. These films were reviewed with Dr. Nathan. These do not appear to be amenable to percutaneous drainage. This finding is likely contributing to the patient's prolonged ileus and suspected aspiration yesterday. Clinical scenario discussed in detail with the patient's brother and [id number] at the bedside. Options of exploratory laparotomy with drainage or possible resection versus transfer to tertiary care center versus comfort measures reviewed. They would like us to proceed with surgery at this time. Intraoperative findings will dictate what is performed however suspect that drainage of the perigastric abscess with drain placement is the most likely surgical outcome. They understand that closure of the leak site may not be feasible and patient could still require subsequent transfer to tertiary care center for endoscopic assistance with staple line leak. Risks of bleeding, infection, persistent leak, abscess, progressive sepsis, long-term ventilatory dependence, cardiac and respiratory failure discussed. They understand and wish to proceed. Objective - Vital Signs Vital signs: Vital Signs Temp 99.6 F 11/12/21 12:00 Pulse 93 11/12/21 15:00 Resp 28 H 11/12/21 15:00 BP 124/54 11/12/21 01:29 Pulse Ox 98 11/12/21 15:00 Intake & Output 11/11/21 11/12/21 11/12/21 18:59 06:59 18:59 Intake Total 4986.505 4113.371 2771.959 Output Total 2200 975 2310 Balance 2786.505 3138.371 461.959 Weight 80.7 kg Intake: IV 4100 3424 2250 OMFIRMEV 100 PRBC's 277 Piperacillin-Tazobactam 3 100 100 200 .375 gm In Sodium Chloride 0.9% 100 ml @ 25 mls/hr IVPB Q8HR [facility] Rx# :[id number] Sodium Chloride 0.9% 1, 1650 1350 000 ml @ 20 mls/hr IV . Q24H [facility] Rx#:[id number] Sodium Chloride 0.9% 2, 4000 000 ml @ 999 mls/hr IV . Q2H1M [facility] Rx#:[id number] TPN/MVI 630 700 Vancomycin 667 Intake, IV Titration 886.505 412.371 521.959 Amount Norepinephrine 8 mg In 64.724 Sodium Chloride 0.9% 250 ml @ 0.05 MCG/KG/MIN 7. 808 mls/hr IV .Q24H [facility] Rx#:[id number] Sodium Chloride 0.9% 1, 750 150 000 ml @ 150 mls/hr IV . Q6H40M [facility] Rx#:[id number] Vancomycin 1,500 mg In 250 Sodium Chloride 0.9% 250 ml @ 125 mls/hr IVPB Q12HR [facility] Rx#:[id number] propofoL 1,000 mg In 136.505 197.647 271.959 Empty Bag 1 bag @ 20 MCG/ KG/MIN 9.684 mls/hr IV . [id number] [facility] Rx#:[id number] Blood Product 277 Rc Pheresis 2 As3 Unit 277 [id number] Output: Gastric Drainage 1472 154 3623 Urine 800 785 760 Oral Regurgitation 400 Other: Voiding Method Indwelling Catheter Indwelling Catheter Indwelling Catheter ABP, PAP, CO, CI - Last Documented Arterial Blood Pressure 128/51 - Labs CBC & Chem 7: 11/12/21 04:10 11/12/21 04:10 Labs: Abnormal Lab Results - Last 24 Hours (Table) 10/30/21 11/11/21 11/11/21 Range/Units 10:20 17:25 17:25 WBC 12.4 H (3.8-10.6) k/uL RBC 2.61 L (4.30-5.90) m/uL Hgb 6.5 L* D (13.0-17.5) gm/dL Hct 22.1 L (39.0-53.0) % MCHC 29.6 L (31.0-37.0) g/dL RDW 18.4 H (11.5-15.5) % Plt Count 651 H (150-450) k/uL Neutrophils # (Manual) 9.40 H (1.3-7.7) k/uL Metamyelocytes # (Man) 0.25 H (0) k/uL Myelocytes # (Manual) (0) k/uL Nucleated RBCs (0-0) /100 WBC ABG pH (7.35-7.45) ABG pO2 (83-108) mmHg ABG HCO3 (21-25) mmol/L ABG O2 Saturation (94-97) % Chloride 117 H (98-107) mmol/L Carbon Dioxide 19 L (22-30) mmol/L BUN 39 H (9-20) mg/dL Creatinine 1.42 H (0.66-1.25) mg/dL Glucose 161 H (74-99) mg/dL POC Glucose (mg/dL) (75-99) mg/dL Calcium 7.3 L (8.4-10.2) mg/dL Ionized Calcium Azucena (4.5-5.3) mg/dL Total Bilirubin 2.1 H (0.2-1.3) mg/dL AST 86 H (17-59) U/L ALT 50 H (4-49) U/L Alkaline Phosphatase 147 H (38-126) U/L Total Protein 4.9 L (6.3-8.2) g/dL Albumin 1.9 L (3.5-5.0) g/dL Crossmatch See Detail 11/11/21 11/12/21 11/12/21 Range/Units 19:05 00:05 04:10 WBC (3.8-10.6) k/uL RBC (4.30-5.90) m/uL Hgb (13.0-17.5) gm/dL Hct (39.0-53.0) % MCHC (31.0-37.0) g/dL RDW (11.5-15.5) % Plt Count (150-450) k/uL Neutrophils # (Manual) (1.3-7.7) k/uL Metamyelocytes # (Man) (0) k/uL Myelocytes # (Manual) (0) k/uL Nucleated RBCs (0-0) /100 WBC ABG pH (7.35-7.45) ABG pO2 (83-108) mmHg ABG HCO3 (21-25) mmol/L ABG O2 Saturation (94-97) % Chloride 119 H (98-107) mmol/L Carbon Dioxide 17 L (22-30) mmol/L BUN 38 H (9-20) mg/dL Creatinine (0.66-1.25) mg/dL Glucose 195 H (74-99) mg/dL POC Glucose (mg/dL) 168 H (75-99) mg/dL Calcium 7.3 L (8.4-10.2) mg/dL Ionized Calcium Azucena 5.4 H (4.5-5.3) mg/dL Total Bilirubin 2.3 H (0.2-1.3) mg/dL AST 94 H (17-59) U/L ALT (4-49) U/L Alkaline Phosphatase 147 H (38-126) U/L Total Protein 5.1 L (6.3-8.2) g/dL Albumin 1.9 L (3.5-5.0) g/dL Crossmatch See Detail 11/12/21 11/12/21 11/12/21 Range/Units 04:10 05:45 06:32 WBC 14.2 H (3.8-10.6) k/uL RBC 2.82 L (4.30-5.90) m/uL Hgb 7.3 L (13.0-17.5) gm/dL Hct 24.1 L (39.0-53.0) % MCHC 30.3 L (31.0-37.0) g/dL RDW 18.3 H (11.5-15.5) % Plt Count 690 H (150-450) k/uL Neutrophils # (Manual) 11.00 H (1.3-7.7) k/uL Metamyelocytes # (Man) 0.57 H (0) k/uL Myelocytes # (Manual) 0.14 H (0) k/uL Nucleated RBCs 1 H (0-0) /100 WBC ABG pH 7.34 L (7.35-7.45) ABG pO2 163 H (83-108) mmHg ABG HCO3 19 L (21-25) mmol/L ABG O2 Saturation 99.3 H (94-97) % Chloride (98-107) mmol/L Carbon Dioxide (22-30) mmol/L BUN (9-20) mg/dL Creatinine (0.66-1.25) mg/dL Glucose (74-99) mg/dL POC Glucose (mg/dL) 156 H (75-99) mg/dL Calcium (8.4-10.2) mg/dL Ionized Calcium Azucena (4.5-5.3) mg/dL Total Bilirubin (0.2-1.3) mg/dL AST (17-59) U/L ALT (4-49) U/L Alkaline Phosphatase (38-126) U/L Total Protein (6.3-8.2) g/dL Albumin (3.5-5.0) g/dL Crossmatch 11/12/21 Range/Units 11:58 WBC (3.8-10.6) k/uL RBC (4.30-5.90) m/uL Hgb (13.0-17.5) gm/dL Hct (39.0-53.0) % MCHC (31.0-37.0) g/dL RDW (11.5-15.5) % Plt Count (150-450) k/uL Neutrophils # (Manual) (1.3-7.7) k/uL Metamyelocytes # (Man) (0) k/uL Myelocytes # (Manual) (0) k/uL Nucleated RBCs (0-0) /100 WBC ABG pH (7.35-7.45) ABG pO2 (83-108) mmHg ABG HCO3 (21-25) mmol/L ABG O2 Saturation (94-97) % Chloride (98-107) mmol/L Carbon Dioxide (22-30) mmol/L BUN (9-20) mg/dL Creatinine (0.66-1.25) mg/dL Glucose (74-99) mg/dL POC Glucose (mg/dL) 153 H (75-99) mg/dL Calcium (8.4-10.2) mg/dL Ionized Calcium Azucena (4.5-5.3) mg/dL Total Bilirubin (0.2-1.3) mg/dL AST (17-59) U/L ALT (4-49) U/L Alkaline Phosphatase (38-126) U/L Total Protein (6.3-8.2) g/dL Albumin (3.5-5.0) g/dL Crossmatch Microbiology - Last 24 Hours (Table) 11/11/21 12:00 Gram Stain - Preliminary Bronchoalviolar Lavage - Left Bronchial Washings Culture - Preliminary 11/08/21 09:54 Blood Culture - Preliminary Blood No Growth after 96 hours 11/11/21 12:00 Fungal Culture - Preliminary Bronchial Washings - Random 11/11/21 12:00 Acid Fast Bacilli Culture - Preliminary Bronchial Washings - Random 11/11/21 12:30 Gram Stain - Preliminary Bronchial Washings - Random Bronchial Washings Culture - Preliminary 11/10/21 18:03 Blood Culture - Preliminary Blood No Growth after 24 hours 11/11/21 12:30 Acid Fast Bacilli Culture - Preliminary Bronchial Washings - Random 11/11/21 12:30 Fungal Culture - Preliminary Bronchial Washings - Random Assessment and Plan (1) Sepsis Current Visit: Yes Status: Acute Code(s): A41.9 - SEPSIS, UNSPECIFIED ORGANISM SNOMED Code(s): 05139832
--- NOTE | 2021-11-12 14:23 | P.PN ---
Subjective Progress Note Date: 11/12/21 Patient was admitted for nausea vomiting diarrhea believed to have gastroenteritis. Patient continued to have vomiting and started having abdominal tenderness because of which CT of the abdomen was obtained which showed pneumatosis coli along with some gas in the venous system concern for ischemic bowel. Patient was started on Zosyn. Patient subsequently decompensated patient became hypotensive with BP of 60/40 transferred to ICU patient was given 3 L of boluses of IV fluid NG tube was placed which showed bloody output . Patient in septic shock and receiving norepinephrine at this time. Recent echo showed normal ejection fraction. Patient had CTA of the chest which was negative for pulmonary embolism patient creatinine has worsened and went up to 2.80 today from 1.14 yesterday and this is secondary to acute tubular necrosis from sepsis and septic shock. Patient does have lactic acidosi s, patient does have lactic acidosis with lactic acidosis 7.5. Patient will be given 1 L of IV fluids continue pressor support. he is intubated and sedated. 10/31/2021 Patient is started having urine output. Patient underwent a arthrotomy yesterday and found to have ischemia of the lateral portion of the stomach and ischemia of the proximal jejunum patient underwent partial gastrectomy. Patient is presently on that to pressors maximized on norepinephrine, patient is also on vasopressin receiving albumin, IV fluids started having minimal urine output patient was anuric last night. Patient's chloride is highly elevated leading to metabolic acidosis patient also has an anion gap metabolic acidosis from lactic acidosis which appears to be improving at this time patient's overall clinical condition is guarded and the prognosis is poor. Patient Y blood cell count went down in fact patient is neutropenic now. Patient is presently not receiving any nutrition at this time. 11/01/2021 Patient is seen in follow-up continues to be closely monitored in the ICU in critical condition. Multiple medical consultations including pulmonary telescope repairer, cardiology, surgery following closely. Patient is status post partial gastrectomy postop day #2. Patient continues on IV Zosyn along with normal saline at 75 ML per hour. Per nursing staff patient continues on Levophed along with vasopressin for pressor support. Patient not tolerating weaning very well to assess mentation. Patient continues on sedation of propofol and will continue. Chest x-ray today shows basilar atelectasis, may be associated effusion and to correlate to exclude pneumonia. Per nursing staff there has been minimal NG tube output and of note on the x-ray the distal tip of the NG tube is obscured although unable to fully see as there is overlying artifacts with the telemetry monitoring and the patient is rotated. Patient is also having hypoglycemic events and was started on dextrose. Surgery plans for TPN for nutritional support. Family at the bedside today and their questions and concerns were answered. 11/02/2021 Patient evaluated today in the ICU he is postoperative day #3 for partial gastrectomy, currently intubated with an FiO2 of 30% with a PEEP of 5. Current oxygen saturations are 99 to 100%. Blood pressures 119/61, respirations 28, heart rate 107, afebrile. Chest x-ray today shows a stable chest with pleural effusion unchanged, perihilar and basilar infiltrates persist. Per nurse about 500 mLs output from NG tube in the last 12 hours. Continues on IV lasix, TPN, IV zosyn. Pressor support and propfol are currently on hold. Blood pressures are maintaining 120s systolic, heart rate 113 sinus tachycardia, afebrile, respirations 27. Patient with indwelling catheter, urine is dark susana, per nurse no BM since surgery, bowels are absent left lower quadrant, hypoactive to the right quadrant. Labs today show white count 6, hemoglobin 8.6, sodium 142, potassium 3.9, chloride 124, CO2 15, BUN 41, creatinine 1.39, blood glucose in the 80s, calcium 7.2, total bili 1.7, AST 145, ALT 59. Patient is being followed closely by pulmonary, cardiology, and surgical services. 11/03/2021 Patient evaluated today and closely monitored in ICU remains in critical condition. Patient's been off sedation for 24 hours. He is currently spontaneous eye opening, eyes are tracking however he does not move his face, not following motor commands unable to wiggle fingers. Once patient is more a lert may tolerate extubation. He continues to be vented, Fi02 30% with a PEEP of 5 his current oxygen saturation 96%, blood pressure 112/74, heart rate sinus tachycardic in the low 100's, he has been afebrile. Patient has been in a negative fluid balance with -1.8 Liters in the last 24 hours and received 3 doses of IV lasix which is now discontinued. Bowel sounds are hypoactive, abdominal binder in place with dressings intact to midline incision, no bowel movements or passing gas as reported by RN. Creatinine slightly increased today to 1.44, BUN 37. No white count, hemoglobin stable at 8.2, platelets decreased to 40's for the last 2 days, heparin was discontinued, continues with SCD's. Liver enzymes stable from yesterday. Continues on D10 infusion, TPN, maintaining blood pressures off pressor support. Continues on IV zosyn. Chest xray today shows unchanged pleural effusion. Patient remains in the ICU followed closely by pulmonary, cardiology, and surgical services in critical condition. Code status was changed to DNR by family. 11/04/2021 Patient evaluated today in the intensive care unit, he is more alert than yesterday. Per RN patient had a large bowel movement today and bowels are hypoactive today in all quadrants. BM was a maroon color per nurse. Abdominal binder in place. Continues with rivas catheter with over 3L of urine output in the last 24 hours, still with peripheral edema. IV lasix 60 mg x1 was given today. NGT remains in place with only 50 mLs of output overnight. Patient remains off sedation, remains off pressor support. Blood pressure today 115/69, heart rate 106, low grade fever this morning 99.2 axillary, and patient was extubated mid morning is on a 15 L HF cannula. Chest xray this morning shows stable bilateral consolidation and pleural effusion. Remains on D10 gtt at 20 mLs per hour, TPN/Lipids, and IV zosyn. Patient also received potassium suppl ementation today. Followed closely by multiple consultations including cardiology, pulmonary, and surgery and remains in guarded condition. Labs reviewed: sodium 135, potassium 3.2, chloride 120, CO2 20, BUN 45, creat 1.26, blood glucose in the 110's, AST 81, ALT and alk phos have normalized. 11/05/2021 Patient is seen and evaluated in follow-up continues to be in the ICU under close monitoring. Patient was recently extubated and continues on 5 L high flow nasal cannula and oxygen saturations have been 97-100%. Multiple medical consultations including pulmonary telescope repairer and surgery following closely. Chest x-ray today shows removal of endotracheal tube along with NG tube and central venous catheter on the right remains in place with no evident pneumothorax and to correlate for pneumonia, congestive heart failure, possible effusions and associated atelectasis versus edema. Patient did receive a dose of IV Lasix yesterday. Neurology consulted and CT of the brain without contrast ordered to assess mentation which is currently pending. Patient is continued on D10 and water and maintaining blood sugars in the 120s and will continue current regimen. Hemoglobin is 7.7 today with no bleeding noted. Platelets on the lower side at 65 although improved from previous and will continue to monitor closely with repeat labs in the morning. Patient also continues on IV Zosyn and will continue at this time. 11/06/2021 Patient is seen in follow-up continues to be in the ICU with multiple medical consultations following. Patient was evaluated by neurology and EEG was ordered and pending. Patient underwent CT of the brain which showed no acute abnormality noted. Patient also had chest x-ray today which shows no significant interval change compared to yesterday with continued questionable pulmonary infiltration at the mid to lower lung zones and there is some congested pulmonary vasculature with bilateral pleural effusions. Patient had been receiving one-time doses of IV Lasix daily and will add scheduled 40 mg IV Lasix and recommend repeat labs and follow-up chest x-ray. Patient is tolerating 3 L high flow via nasal cannula and maintaining oxygen saturations above 97%. Patient continues with significant weakness and PT/OT therapy consulted to follow the patient daily. Patient noted to have increased output noted in the NG tube and general surgery following an plan is for CT abdomen with contrast this afternoon. Will await report. Continues to be nothing by mouth on TPN and will continue for now. 11/07/2021 Patient is seen and continues to be closely monitored in the ICU. Patient underwent CT abdomen and pelvis which shows some resolution of the previously seen gastric pneumatosis with mild wall thickening of the stomach with questionable minimal residual pneumatosis of the second and third part of the duodenum. There is noted 3 flow of the ingested oral contrast on the ileocecal junction with no evidence of contrast leak. There are slightly dilated small bowel loops measuring 3.3 cm with no definite transition point which may suggest an element of ileus. There is some diffuse bowel thickening of the diana nonspecific and fluid-filled colon with thickened wall that may suggest colitis. Also some moderate amount of free abdominal and pelvic fluid with peritoneal fat stranding and most probably related to postoperative changes although peritonitis cannot be excluded. There is a 2.8 cm gallbladder stone with no gallbladder wall thickening or gross signs of acute cholecystitis with no definite intrahepatic focal lesions identified. And there is some bilateral nasal pleural effusions and subsegmental pulmonary atelectasis demonstrating air bronchogram within. Patient is not currently on antibiotics and patient is afebrile. WBC is 8.4, hemoglobin is 7.9, BMP is noted and magnesium is 2.4, triglycerides found to be elevated at 256. Multiple medical consultations following and will continue to follow closely. All intake of fluids have been decreased to 70 mL per hour including TPN. Recommend follow-up chest x-ray in the morning. Nursing staff reports to a bowel movement yesterday although none today. 11/08/2021 Patient continues to be in the ICU being closely monitored. Patient to continue with NG tube as patient continues to have large amounts of output noted in the container. Patient did have a bowel movement yesterday along with today per nursing staff. Patient having some low-grade temps with T-max 101.5 and IV antibiotics in the form of Zosyn have been resumed. Patient continues on TPN and is currently nothing by mouth with NG tube continued. Patient currently receiving chest physiotherapy for continued secretions noted that patient is unable to expectorate. Would encourage incentive spirometer although patient is unable to perform. Duo nebs and updrafts also ordered. Recommend blood, sputum, and urine cultures which are currently pending. Recommend repeat labs. Chest x-ray is ordered. 11/11/2021 This is a patient who has had prolonged hospitalization secondary to ischemic bowel and sepsis and has undergone gastrectomy. Patient was recently transferred out of the ICU to the [facility] unit and had become more lethargic and unresponsive patient was found unresponsive and foaming at the mouth and a code was called. Case was discussed with ICU and patient being brought back to the ICU. Patient's CODE STATUS was addressed with family per nursing staff and brother is okay with intubating the patient. Patient's CODE STATUS is no code. Patient was placed on BiPAP although continued to progress and worsen and patient is currently being intubated by pulmonary telescope repairer. Patient family also agreeable to pressor support and continuing current medications, per nursing just does not want CPR initiated. Chest x-ray this morning shows increased interstitial densities and increased small left pleural effusion now with more pronounced airspace disease in the retrocardiac region of the left base and correlate for pneumonia and developing pulmonary vascular congestion. Magnesium also low at 1.4 and being replaced. 11/12/2021 Patient is seen in follow-up continues to be closely monitored in the ICU continued under mechanical ventilation and is sedated. Multiple medical consultations including general surgery. Chest x-ray today shows bilateral infiltrates greater on the left with small left effusion correlate for interstitial pneumonitis versus congestion otherwise findings are stable. Patient is continued on IV antibiotics and awaiting for bronchial washings to finalize. Blood cultures have been negative. Patient continues to have low- grade intermittent temps and continues to be tachypneic. FiO2 is currently 40% with a PEEP of 5. No plans for extubation today. Per nursing staff there continues to be large amounts of output noted in the NG and appear maroon- colored in nature and again general surgery is following. Patient has not had any reported bowel movements per nursing staff since 11/08/2021. There are positive bowel sounds noted on exam and abdomen is soft. Patient underwent CT abdomen yesterday showing pleural effusions with extensive lower lobe pulmonary consolidation and atelectasis similar to old exam with abdominal ascites fluid slightly improved compared to last exam and there is evidence of mild small bowel ileus with no free air and cholelithiasis noted. There is subcutaneous emphysema which is mild around the abdomen and pelvis which is improved compared to last exam as well. Review of systems: Unable to obtain as patient is currently placed back on sedation and intubated Active Medications Albuterol/Ipratropium (Ipratropium-Albuterol 3 Ml Neb) 3 ml INHALATION RT-TID [facility] Last Admin: 11/12/21 13:22 Dose: Not Given Documented by: Chlorhexidine Gluconate (Chlorhexidine Gluconate 15 Ml Cup) 15 ml MUCOUS MEM BID [facility] Last Admin: 11/12/21 09:27 Dose: 15 ml Documented by: Enoxaparin Sodium (Enoxaparin 40 Mg/0.4 Ml Syringe) 40 mg SQ DAILY [facility] Last Admin: 11/12/21 09:27 Dose: 40 mg Documented by: Hydromorphone HCl (Hydromorphone 0.5 Mg/0.5 Ml Syringe) 0.5 mg IVP Q3HR PRN PRN Reason: Pain Last Admin: 11/10/21 22:36 Dose: 0.5 mg Documented by: Piperacillin Sod/Tazobactam (Sod 3.375 gm/ Sodium Chloride) 100 mls @ 25 mls/hr IVPB Q8HR [facility]; Protocol Last Admin: 11/12/21 09:26 Dose: 25 mls/hr Documented by: Propofol 1,000 mg/ IV Solution 100 mls @ 9.684 mls/hr IV .[id number] [facility]; Protocol Last Admin: 11/12/21 10:40 Dose: 50 mcg/kg/min, 24.21 mls/hr Documented by: Sodium Chloride (Saline 0.9%) 1,000 mls @ 150 mls/hr IV .Q6H40M [facility] Last Admin: 11/12/21 09:27 Dose: 150 mls/hr Documented by: Norepinephrine Bitartrate 8 mg (/ Sodium Chloride) 258 mls @ 7.808 mls/hr IV .Q24H [facility]; Protocol Last Titration: 11/12/21 03:00 Dose: 0.08 mcg/kg/min, 12.492 mls/hr Documented by: Acetaminophen 1,000 mg/ IV (Solution) 100 mls @ 400 mls/hr IVPB Q6HR PRN PRN Reason: Fever and/ or Pain Stop: 11/15/21 22:01 Last Admin: 11/11/21 22:00 Dose: 400 mls/hr Documented by: Amino Ac/Electrol/Dextrose/Calcium (Clinimix E 5%-20% Solution) 1,000 mls @ 70 mls/hr IV .BY DURATION [facility] Stop: 11/12/21 19:59 Last Admin: 11/12/21 05:48 Dose: 70 mls/hr Documented by: Parenteral Vitamin Supplement 10 ml/ Zinc/Copper/Manganese/Selenium 1 ml/ Amino Ac/Electrol/Dextrose/Calcium 1,011 mls @ 70 mls/hr IV .BY DURATION [facility] Stop: 11/12/21 19:59 Potassium Acetate 40 meq/Calcium Gluconate 1 gm/Potassium Phosphate 6 mmol/Amino Acids/Dextrose 1,032 mls @ 70 mls/hr IV .BY DURATION [facility] Parenteral Vitamin Supplement 10 ml/ Zinc/Copper/Manganese/Selenium 1 ml/ Potass ium Acetate 40 meq/ Calcium Gluconate 1 gm/ Potassium Phosphate 6 mmol/ Amino Acids/Dextrose 1,043 mls @ 70 mls/hr IV .BY DURATION [facility] Vancomycin HCl 1,500 mg/ (Sodium Chloride) 250 mls @ 125 mls/hr IVPB Q12HR [facility] Last Admin: 11/12/21 10:41 Dose: 125 mls/hr Documented by: Insulin Aspart (Insulin Aspart (Novolog) 100 Unit/Ml Vial) 0 unit SQ Q6HR [facility]; Protocol Last Admin: 11/12/21 12:33 Dose: 1 unit Documented by: Metoclopramide HCl (Metoclopramide 5 Mg/Ml 2 Ml Vial) 10 mg IVP Q6H [facility] Last Admin: 11/12/21 09:27 Dose: 10 mg Documented by: Miscellaneous Information (Potassium Replacement Protocol 1 Each Misc) 1 each MISCELLANE DAILY PRN; Protocol PRN Reason: Per Protocol Miscellaneous Information (Magnesium Replacement Protocol 1 Each Misc) 1 each MISCELLANE DAILY PRN; Protocol PRN Reason: Per Protocol Nystatin (Nystatin 100,000 Unit/Gm Powd 15 Gm) 1 applic TOPICAL DAILY PRN; Protocol PRN Reason: Rash Ondansetron HCl (Ondansetron 4 Mg/2 Ml Vial) 4 mg IVP Q8HR PRN PRN Reason: Nausea And Vomiting Last Admin: 10/30/21 09:30 Dose: 4 mg Documented by: Pantoprazole Sodium (Pantoprazole 40 Mg/10 Ml Vial) 40 mg IVP BID [facility] Last Admin: 11/12/21 09:27 Dose: 40 mg Documented by: PHYSICAL EXAMINATION: GENERAL: Patient is 51-year-old male who is autistic and currently sedated and intubated at this time HEENT: Pupils are round and equally reacting to light. EOMI. No scleral icterus. No conjunctival pallor. Normocephalic, atraumatic. No pharyngeal erythema. No thyromegaly. CARDIOVASCULAR: S1 and S2 muffled PULMONARY: Diminished breath sounds bilaterally with some scattered crackles and rhonchi noted ABDOMEN: Bowel sounds noted in left and right lower quadrants along with some subcutaneous edema noted in the lower right quadrant on palpation and increased output that is maroon colored noted in the NG tube. MUSCULOSKELETAL: No joint swelling or deformity. EXTREMITIES: No cyanosis, clubbing, generalized peripheral edema noted. Right upper and lower extremity cool to the touch NEUROLOGICAL: Encephalopathic, unable to completely assess, not following commands SKIN: No rashes. Assessment: -Sepsis, present on admission possibly secondary to ischemia of the lateral portion of the stomach and mild ischemia of the proximal jejunum -Post operative partial gastrectomy for ischemic stomach and also had ischemic ileum. -Acute hypoxic respiratory failure secondary to possible aspiration with acute left lower lobe pneumonia, requiring mechanical ventilator -Septic shock status postoperatively -Elevated liver enzymes most probably due to hepatic congestion from fluid overload state -Anion gap metabolic acidosis secondary to lactic acidosis which improved, acidosis secondary to hyperchloremia -Hypokalemia, improved -Acute renal failure secondary to acute blood loss from septic shock -Syncope with loss of consciousness, hypotensive secondary to above, blood pressures have stabilized off pressor support -History of CVA TIA -History diabetes mellitus type 2, uncontrolled -History of hypertension, hypotensive on admission with a blood pressure in the 70s -History of autism -History of intellectual impairment -GI Prophylaxis Protonix -DVT Prophylaxis Subcu heparin -NO CODE Plan: Recommend to continue with ICU management and close monitoring. Patient was recently transferred back to the ICU secondary to worsening respiratory status and possible aspiration. Patient is currently intubated and sedated with pulmonary telescope repairer and general surgery following. Patient continues to have large amounts of drainage noted in the NG tube and is of maroon colored and general surgery following. CT abdomen and pelvis was done as previously mentioned. Patient is continued on TPN. Preliminary cultures from bronchial lavage yesterday pending and patient is maintained on IV Zosyn and vancomycin while awaiting cultures. Venous blood cultures and urine cultures were negative. Plans for weaning today per pulmonary and will assess for weaning parameters continuously. Brother agreeable to intubation although CODE STATUS is no code and also agreeable to pressor support if needed, they do not want compressions on the patient if needed. Patient is status post multiple liters of fluid resuscitation yesterday and follow-up chest x-ray as mentioned previously. Patient is off pressor support and blood pressure is stable at this time. Patient continues with low-grade temps as well. FiO2 is currently 40% with a PEEP of 5. Patient continues to be in critical condition with guarded prognosis. Recommend repeat labs and continue with ICU monitoring at this time. Overall prognosis is extremely guarded. The impression and plan of care has been dictated by Rozina Nam, nurse practitioner as directed. Dr. Christina MD I have performed a history and examination and MDM of this patient, discussed the same with the dictator, and agree with the dictator's assessment and plan as written ,documented as a scribe. Based on total visit time, I have performed more than 50% of the visit. Any additional findings or plans will be noted. Objective - Vital Signs Vital signs: Vital Signs Temp 97.5 F L 11/12/21 04:00 Pulse 84 11/12/21 08:57 Resp 28 H 11/12/21 07:00 BP 124/54 11/12/21 01:29 Pulse Ox 99 11/12/21 07:00 Intake & Output 11/11/21 11/12/21 11/12/21 18:59 06:59 18:59 Intake Total 4986.505 4113.371 309.981 Output Total 2200 975 210 Balance 2786.505 3138.371 99.981 Weight 80.7 kg Intake: IV 4100 3424 220 OMFIRMEV 100 PRBC's 277 Piperacillin-Tazobactam 3 100 100 .375 gm In Sodium Chloride 0.9% 100 ml @ 25 mls/hr IVPB Q8HR [facility] Rx# :[id number] Sodium Chloride 0.9% 1, 1650 150 000 ml @ 20 mls/hr IV . Q24H [facility] Rx#:[id number] Sodium Chloride 0.9% 2, 4000 000 ml @ 999 mls/hr IV . Q2H1M [facility] Rx#:[id number] TPN/MVI 630 70 Vancomycin 667 Intake, IV Titration 886.505 412.371 89.981 Amount Norepinephrine 8 mg In 64.724 Sodium Chloride 0.9% 250 ml @ 0.05 MCG/KG/MIN 7. 808 mls/hr IV .Q24H [facility] Rx#:[id number] Sodium Chloride 0.9% 1, 750 150 000 ml @ 150 mls/hr IV . Q6H40M [facility] Rx#:[id number] propofoL 1,000 mg In 136.505 197.647 89.981 Empty Bag 1 bag @ 20 MCG/ KG/MIN 9.684 mls/hr IV . [id number] [facility] Rx#:[id number] Blood Product 277 Rc Pheresis 2 As3 Unit 277 [id number] Output: Gastric Drainage 1000 190 150 Urine 800 785 60 Oral Regurgitation 400 Other: Voiding Method Indwelling Catheter Indwelling Catheter ABP, PAP, CO, CI - Last Documented Arterial Blood Pressure 134/55 - Labs CBC & Chem 7: 11/12/21 04:10 11/12/21 04:10 Labs: Abnormal Lab Results - Last 24 Hours (Table) 10/30/21 11/11/21 11/11/21 Range/Units 10:20 04:52 09:44 WBC 16.42 H (4.50-10.00) X 10*3/uL RBC 2.98 L (4.40-5.60) X 10*6/uL Hgb 7.2 L (13.0-17.0) g/dL Hct 25.3 L (39.6-50.0) % MCH 24.2 L (27.0-32.0) pg MCHC 28.5 L (32.0-37.0) g/dL RDW 18.9 H (11.5-14.5) % Plt Count 718 H (140-440) X 10*3/uL Plt Count Comment INCREASED A Absolute Nucleated RBC 0.24 H (0.00-0.00) X 10*3/uL Metamyelocytes % 4 H (0-0) % Myelocytes % 1 H (0-0) % Neutrophils # (Manual) 13.96 H (2.00-8.90) X 10*3/uL Lymphocytes # (Manual) 0.66 L (0.90-5.00) X 10*3/uL Basophils # (Manual) 0.49 H (0.00-0.10) X 10*3/uL Metamyelocytes # (Man) (0) k/uL Myelocytes # (Manual) (0) k/uL Nucleated RBCs (0-0) /100 WBC NRBC/100 WBC Diff 1.5 H (0.0-0.0) /100 WBCS ABG pH (7.35-7.45) ABG pO2 (83-108) mmHg ABG HCO3 (21-25) mmol/L ABG O2 Saturation (94-97) % Chloride (98-107) mmol/L Carbon Dioxide (22-30) mmol/L BUN (9-20) mg/dL Creatinine (0.66-1.25) mg/dL Glucose (74-99) mg/dL POC Glucose (mg/dL) 186 H (75-99) mg/dL Calcium (8.4-10.2) mg/dL Ionized Calcium Azucena (4.5-5.3) mg/dL Total Bilirubin (0.2-1.3) mg/dL AST (17-59) U/L ALT (4-49) U/L Alkaline Phosphatase (38-126) U/L Total Protein (6.3-8.2) g/dL Albumin (3.5-5.0) g/dL Crossmatch See Detail 11/11/21 11/11/21 11/11/21 Range/Units 10:25 12:54 17:25 WBC 12.4 H (4.50-10.00) X 10*3/uL RBC 2.61 L (4.40-5.60) X 10*6/uL Hgb 6.5 L* D (13.0-17.0) g/dL Hct 22.1 L (39.6-50.0) % MCH (27.0-32.0) pg MCHC 29.6 L (32.0-37.0) g/dL RDW 18.4 H (11.5-14.5) % Plt Count 651 H (140-440) X 10*3/uL Plt Count Comment Absolute Nucleated RBC (0.00-0.00) X 10*3/uL Metamyelocytes % (0-0) % Myelocytes % (0-0) % Neutrophils # (Manual) 9.40 H (2.00-8.90) X 10*3/uL Lymphocytes # (Manual) (0.90-5.00) X 10*3/uL Basophils # (Manual) (0.00-0.10) X 10*3/uL Metamyelocytes # (Man) 0.25 H (0) k/uL Myelocytes # (Manual) (0) k/uL Nucleated RBCs (0-0) /100 WBC NRBC/100 WBC Diff (0.0-0.0) /100 WBCS ABG pH 7.32 L (7.35-7.45) ABG pO2 130 H 240 H (83-108) mmHg ABG HCO3 (21-25) mmol/L ABG O2 Saturation 98.7 H 99.5 H (94-97) % Chloride (98-107) mmol/L Carbon Dioxide (22-30) mmol/L BUN (9-20) mg/dL Creatinine (0.66-1.25) mg/dL Glucose (74-99) mg/dL POC Glucose (mg/dL) (75-99) mg/dL Calcium (8.4-10.2) mg/dL Ionized Calcium Azucena (4.5-5.3) mg/dL Total Bilirubin (0.2-1.3) mg/dL AST (17-59) U/L ALT (4-49) U/L Alkaline Phosphatase (38-126) U/L Total Protein (6.3-8.2) g/dL Albumin (3.5-5.0) g/dL Crossmatch 11/11/21 11/11/21 11/12/21 Range/Units 17:25 19:05 00:05 WBC (4.50-10.00) X 10*3/uL RBC (4.40-5.60) X 10*6/uL Hgb (13.0-17.0) g/dL Hct (39.6-50.0) % MCH (27.0-32.0) pg MCHC (32.0-37.0) g/dL RDW (11.5-14.5) % Plt Count (140-440) X 10*3/uL Plt Count Comment Absolute Nucleated RBC (0.00-0.00) X 10*3/uL Metamyelocytes % (0-0) % Myelocytes % (0-0) % Neutrophils # (Manual) (2.00-8.90) X 10*3/uL Lymphocytes # (Manual) (0.90-5.00) X 10*3/uL Basophils # (Manual) (0.00-0.10) X 10*3/uL Metamyelocytes # (Man) (0) k/uL Myelocytes # (Manual) (0) k/uL Nucleated RBCs (0-0) /100 WBC NRBC/100 WBC Diff (0.0-0.0) /100 WBCS ABG pH (7.35-7.45) ABG pO2 (83-108) mmHg ABG HCO3 (21-25) mmol/L ABG O2 Saturation (94-97) % Chloride 117 H (98-107) mmol/L Carbon Dioxide 19 L (22-30) mmol/L BUN 39 H (9-20) mg/dL Creatinine 1.42 H (0.66-1.25) mg/dL Glucose 161 H (74-99) mg/dL POC Glucose (mg/dL) 168 H (75-99) mg/dL Calcium 7.3 L (8.4-10.2) mg/dL Ionized Calcium Azucena (4.5-5.3) mg/dL Total Bilirubin 2.1 H (0.2-1.3) mg/dL AST 86 H (17-59) U/L ALT 50 H (4-49) U/L Alkaline Phosphatase 147 H (38-126) U/L Total Protein 4.9 L (6.3-8.2) g/dL Albumin 1.9 L (3.5-5.0) g/dL Crossmatch See Detail 11/12/21 11/12/21 11/12/21 Range/Units 04:10 04:10 05:45 WBC 14.2 H (4.50-10.00) X 10*3/uL RBC 2.82 L (4.40-5.60) X 10*6/uL Hgb 7.3 L (13.0-17.0) g/dL Hct 24.1 L (39.6-50.0) % MCH (27.0-32.0) pg MCHC 30.3 L (32.0-37.0) g/dL RDW 18.3 H (11.5-14.5) % Plt Count 690 H (140-440) X 10*3/uL Plt Count Comment Absolute Nucleated RBC (0.00-0.00) X 10*3/uL Metamyelocytes % (0-0) % Myelocytes % (0-0) % Neutrophils # (Manual) 11.00 H (2.00-8.90) X 10*3/uL Lymphocytes # (Manual) (0.90-5.00) X 10*3/uL Basophils # (Manual) (0.00-0.10) X 10*3/uL Metamyelocytes # (Man) 0.57 H (0) k/uL Myelocytes # (Manual) 0.14 H (0) k/uL Nucleated RBCs 1 H (0-0) /100 WBC NRBC/100 WBC Diff (0.0-0.0) /100 WBCS ABG pH 7.34 L (7.35-7.45) ABG pO2 163 H (83-108) mmHg ABG HCO3 19 L (21-25) mmol/L ABG O2 Saturation 99.3 H (94-97) % Chloride 119 H (98-107) mmol/L Carbon Dioxide 17 L (22-30) mmol/L BUN 38 H (9-20) mg/dL Creatinine (0.66-1.25) mg/dL Glucose 195 H (74-99) mg/dL POC Glucose (mg/dL) (75-99) mg/dL Calcium 7.3 L (8.4-10.2) mg/dL Ionized Calcium Azucena 5.4 H (4.5-5.3) mg/dL Total Bilirubin 2.3 H (0.2-1.3) mg/dL AST 94 H (17-59) U/L ALT (4-49) U/L Alkaline Phosphatase 147 H (38-126) U/L Total Protein 5.1 L (6.3-8.2) g/dL Albumin 1.9 L (3.5-5.0) g/dL Crossmatch 11/12/21 Range/Units 06:32 WBC (4.50-10.00) X 10*3/uL RBC (4.40-5.60) X 10*6/uL Hgb (13.0-17.0) g/dL Hct (39.6-50.0) % MCH (27.0-32.0) pg MCHC (32.0-37.0) g/dL RDW (11.5-14.5) % Plt Count (140-440) X 10*3/uL Plt Count Comment Absolute Nucleated RBC (0.00-0.00) X 10*3/uL Metamyelocytes % (0-0) % Myelocytes % (0-0) % Neutrophils # (Manual) (2.00-8.90) X 10*3/uL Lymphocytes # (Manual) (0.90-5.00) X 10*3/uL Basophils # (Manual) (0.00-0.10) X 10*3/uL Metamyelocytes # (Man) (0) k/uL Myelocytes # (Manual) (0) k/uL Nucleated RBCs (0-0) /100 WBC NRBC/100 WBC Diff (0.0-0.0) /100 WBCS ABG pH (7.35-7.45) ABG pO2 (83-108) mmHg ABG HCO3 (21-25) mmol/L ABG O2 Saturation (94-97) % Chloride (98-107) mmol/L Carbon Dioxide (22-30) mmol/L BUN (9-20) mg/dL Creatinine (0.66-1.25) mg/dL Glucose (74-99) mg/dL POC Glucose (mg/dL) 156 H (75-99) mg/dL Calcium (8.4-10.2) mg/dL Ionized Calcium Azucena (4.5-5.3) mg/dL Total Bilirubin (0.2-1.3) mg/dL AST (17-59) U/L ALT (4-49) U/L Alkaline Phosphatase (38-126) U/L Total Protein (6.3-8.2) g/dL Albumin (3.5-5.0) g/dL Crossmatch Microbiology - Last 24 Hours (Table) 11/11/21 12:00 Fungal Culture - Preliminary Bronchial Washings - Random 11/11/21 12:00 Acid Fast Bacilli Culture - Preliminary Bronchial Washings - Random 11/11/21 12:00 Bronchial Washings Culture - Preliminary Bronchoalviolar Lavage - Left 11/11/21 12:30 Gram Stain - Preliminary Bronchial Washings - Random Bronchial Washings Culture - Preliminary 11/10/21 18:03 Blood Culture - Preliminary Blood No Growth after 24 hours 11/11/21 12:30 Acid Fast Bacilli Culture - Preliminary Bronchial Washings - Random 11/11/21 12:30 Fungal Culture - Preliminary Bronchial Washings - Random 11/08/21 09:54 Blood Culture - Preliminary Blood No Growth after 72 hours
[2021-11-12] MEDS: HYDROmorphone 0.5 MG/0.5 ML SYRINGE IVP PRN (14:50)
[2021-11-12] MEDS ORDERED: VANCOMYCIN 1,500 MG in SODIUM CHLORIDE 0.9% 250 ML IVPB SCH (15:00)
--- NOTE | 2021-11-12 16:44 | P.PN ---
Subjective Progress Note Date: 11/12/21 I am seeing the patient for the first time during this admission. Please refer to Dr. Rose's note for further details. Per Dr. Rose, his encephalopathy was improving. The patient is seen at bedside and per nurse, yesterday the patient aspirated while on the floor as result had to be intubated and on ventilator. Per A-team he was unresponsive. They have him a dose of Keppra 1gm. No seizure-like activity noted by nurse or reported overnight. Patient is on IV Propofol 50mcg/kg/min. He is accompanied by his brother who is at bedside who stated that surgery team approciated them and are possible co nsidering doing another abdominal surgery but family wants to discuss of how to proceed. Objective - Vital Signs Vital signs: Vital Signs Temp 99.6 F 11/12/21 12:00 Pulse 93 11/12/21 15:00 Resp 28 H 11/12/21 15:00 BP 124/54 11/12/21 01:29 Pulse Ox 98 11/12/21 15:00 Intake & Output 11/11/21 11/12/21 11/12/21 18:59 06:59 18:59 Intake Total 4986.505 4113.371 2451.959 Output Total 2200 975 1320 Balance 2786.505 3138.371 1131.959 Weight 80.7 kg Intake: IV 4100 3424 1930 OMFIRMEV 100 PRBC's 277 Piperacillin-Tazobactam 3 100 100 100 .375 gm In Sodium Chloride 0.9% 100 ml @ 25 mls/hr IVPB Q8HR ROBERTO Rx# :[id number] Sodium Chloride 0.9% 1, 1650 1200 000 ml @ 20 mls/hr IV . Q24H ROBERTO Rx#:[id number] Sodium Chloride 0.9% 2, 4000 000 ml @ 999 mls/hr IV . Q2H1M ONE Rx#:[id number] TPN/MVI 630 630 Vancomycin 667 Intake, IV Titration 886.505 412.371 521.959 Amount Norepinephrine 8 mg In 64.724 Sodium Chloride 0.9% 250 ml @ 0.05 MCG/KG/MIN 7. 808 mls/hr IV .Q24H ROBERTO Rx#:[id number] Sodium Chloride 0.9% 1, 750 150 000 ml @ 150 mls/hr IV . Q6H40M ROBERTO Rx#:[id number] Vancomycin 1,500 mg In 250 Sodium Chloride 0.9% 250 ml @ 125 mls/hr IVPB Q12HR ROBERTO Rx#:[id number] propofoL 1,000 mg In 136.505 197.647 271.959 Empty Bag 1 bag @ 20 MCG/ KG/MIN 9.684 mls/hr IV . [id number] ROBERTO Rx#:[id number] Blood Product 277 Rc Pheresis 2 As3 Unit 277 [id number] Output: Gastric Drainage 1000 190 600 Urine 800 785 720 Oral Regurgitation 400 Other: Voiding Method Indwelling Catheter Indwelling Catheter Indwelling Catheter ABP, PAP, CO, CI - Last Documented Arterial Blood Pressure 128/51 - Exam GENERAL: The patient is lying in bed and does not seem in acute distress. LUNG: Clear to auscultation bilaterally no wheezing noted throughout. Not labored breathing. Intubated on ventilator. NEUROLOGICAL: Limited. IV Propofol 50mcg/kg/min. Higher mental function: Comatose. GCS 3 (E1, VT1, M1). Cranial nerves: I mannually opened his Primary gaze is midline. Pupils are round, equal, about 2mm and reactive to light. No facial weakness. Motor: Unable to assess. No spontaneous movement. - Labs CBC & Chem 7: 11/12/21 04:10 11/12/21 04:10 Labs: Abnormal Lab Results - Last 24 Hours (Table) 10/30/21 11/11/21 11/11/21 Range/Units 10:20 17:25 17:25 WBC 12.4 H (3.8-10.6) k/uL RBC 2.61 L (4.30-5.90) m/uL Hgb 6.5 L* D (13.0-17.5) gm/dL Hct 22.1 L (39.0-53.0) % MCHC 29.6 L (31.0-37.0) g/dL RDW 18.4 H (11.5-15.5) % Plt Count 651 H (150-450) k/uL Neutrophils # (Manual) 9.40 H (1.3-7.7) k/uL Metamyelocytes # (Man) 0.25 H (0) k/uL Myelocytes # (Manual) (0) k/uL Nucleated RBCs (0-0) /100 WBC ABG pH (7.35-7.45) ABG pO2 (83-108) mmHg ABG HCO3 (21-25) mmol/L ABG O2 Saturation (94-97) % Chloride 117 H (98-107) mmol/L Carbon Dioxide 19 L (22-30) mmol/L BUN 39 H (9-20) mg/dL Creatinine 1.42 H (0.66-1.25) mg/dL Glucose 161 H (74-99) mg/dL POC Glucose (mg/dL) (75-99) mg/dL Calcium 7.3 L (8.4-10.2) mg/dL Ionized Calcium Azucena (4.5-5.3) mg/dL Total Bilirubin 2.1 H (0.2-1.3) mg/dL AST 86 H (17-59) U/L ALT 50 H (4-49) U/L Alkaline Phosphatase 147 H (38-126) U/L Total Protein 4.9 L (6.3-8.2) g/dL Albumin 1.9 L (3.5-5.0) g/dL Crossmatch See Detail 11/11/21 11/12/21 11/12/21 Range/Units 19:05 00:05 04:10 WBC (3.8-10.6) k/uL RBC (4.30-5.90) m/uL Hgb (13.0-17.5) gm/dL Hct (39.0-53.0) % MCHC (31.0-37.0) g/dL RDW (11.5-15.5) % Plt Count (150-450) k/uL Neutrophils # (Manual) (1.3-7.7) k/uL Metamyelocytes # (Man) (0) k/uL Myelocytes # (Manual) (0) k/uL Nucleated RBCs (0-0) /100 WBC ABG pH (7.35-7.45) ABG pO2 (83-108) mmHg ABG HCO3 (21-25) mmol/L ABG O2 Saturation (94-97) % Chloride 119 H (98-107) mmol/L Carbon Dioxide 17 L (22-30) mmol/L BUN 38 H (9-20) mg/dL Creatinine (0.66-1.25) mg/dL Glucose 195 H (74-99) mg/dL POC Glucose (mg/dL) 168 H (75-99) mg/dL Calcium 7.3 L (8.4-10.2) mg/dL Ionized Calcium Azucena 5.4 H (4.5-5.3) mg/dL Total Bilirubin 2.3 H (0.2-1.3) mg/dL AST 94 H (17-59) U/L ALT (4-49) U/L Alkaline Phosphatase 147 H (38-126) U/L Total Protein 5.1 L (6.3-8.2) g/dL Albumin 1.9 L (3.5-5.0) g/dL Crossmatch See Detail 11/12/21 11/12/21 11/12/21 Range/Units 04:10 05:45 06:32 WBC 14.2 H (3.8-10.6) k/uL RBC 2.82 L (4.30-5.90) m/uL Hgb 7.3 L (13.0-17.5) gm/dL Hct 24.1 L (39.0-53.0) % MCHC 30.3 L (31.0-37.0) g/dL RDW 18.3 H (11.5-15.5) % Plt Count 690 H (150-450) k/uL Neutrophils # (Manual) 11.00 H (1.3-7.7) k/uL Metamyelocytes # (Man) 0.57 H (0) k/uL Myelocytes # (Manual) 0.14 H (0) k/uL Nucleated RBCs 1 H (0-0) /100 WBC ABG pH 7.34 L (7.35-7.45) ABG pO2 163 H (83-108) mmHg ABG HCO3 19 L (21-25) mmol/L ABG O2 Saturation 99.3 H (94-97) % Chloride (98-107) mmol/L Carbon Dioxide (22-30) mmol/L BUN (9-20) mg/dL Creatinine (0.66-1.25) mg/dL Glucose (74-99) mg/dL POC Glucose (mg/dL) 156 H (75-99) mg/dL Calcium (8.4-10.2) mg/dL Ionized Calcium Azucena (4.5-5.3) mg/dL Total Bilirubin (0.2-1.3) mg/dL AST (17-59) U/L ALT (4-49) U/L Alkaline Phosphatase (38-126) U/L Total Protein (6.3-8.2) g/dL Albumin (3.5-5.0) g/dL Crossmatch 11/12/21 Range/Units 11:58 WBC (3.8-10.6) k/uL RBC (4.30-5.90) m/uL Hgb (13.0-17.5) gm/dL Hct (39.0-53.0) % MCHC (31.0-37.0) g/dL RDW (11.5-15.5) % Plt Count (150-450) k/uL Neutrophils # (Manual) (1.3-7.7) k/uL Metamyelocytes # (Man) (0) k/uL Myelocytes # (Manual) (0) k/uL Nucleated RBCs (0-0) /100 WBC ABG pH (7.35-7.45) ABG pO2 (83-108) mmHg ABG HCO3 (21-25) mmol/L ABG O2 Saturation (94-97) % Chloride (98-107) mmol/L Carbon Dioxide (22-30) mmol/L BUN (9-20) mg/dL Creatinine (0.66-1.25) mg/dL Glucose (74-99) mg/dL POC Glucose (mg/dL) 153 H (75-99) mg/dL Calcium (8.4-10.2) mg/dL Ionized Calcium Azucena (4.5-5.3) mg/dL Total Bilirubin (0.2-1.3) mg/dL AST (17-59) U/L ALT (4-49) U/L Alkaline Phosphatase (38-126) U/L Total Protein (6.3-8.2) g/dL Albumin (3.5-5.0) g/dL Crossmatch Microbiology - Last 24 Hours (Table) 11/11/21 12:00 Gram Stain - Preliminary Bronchoalviolar Lavage - Left Bronchial Washings Culture - Preliminary 11/08/21 09:54 Blood Culture - Preliminary Blood No Growth after 96 hours 11/11/21 12:00 Fungal Culture - Preliminary Bronchial Washings - Random 11/11/21 12:00 Acid Fast Bacilli Culture - Preliminary Bronchial Washings - Random 11/11/21 12:30 Gram Stain - Preliminary Bronchial Washings - Random Bronchial Washings Culture - Preliminary 11/10/21 18:03 Blood Culture - Preliminary Blood No Growth after 24 hours 11/11/21 12:30 Acid Fast Bacilli Culture - Preliminary Bronchial Washings - Random 11/11/21 12:30 Fungal Culture - Preliminary Bronchial Washings - Random Assessment and Plan Assessment: * Altered mental status, likely due to toxic metabolic encephalopathy, hypoxic respiratory failure as well as medication use. * Generalized weakness, possible due to encephalopathy. 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 * Status post septic shock. * Status post acute kidney injury, improving * Episode of hypoglycemia 36 mg/dL) on 11/01/2021 At 12:20 AM. * Diabetes * Hypertension * Anemia * Developmental delay, autism and intellectual impairment. Plan: * EEG 11/06/2021 is reported as revealed moderate background slowing consistent with encephalopathy. No epileptiform activity was seen. * Computed tomography scan of the head showed no acute process (patient had two CT of heads and last on 11/05/2021). * Repeat ammonia is normal <9. B12 > 2000, folate 10.9. TSH is normal. * Avoid any episodes of hypoglycemia. * General surgery team is on board. * Will defer the rest of medical management to the primary and ICU team. The plan is discussed with the patient's brother who is at bedside and his nurse. Will follow-up patient sporadically. Aldo Downey M.D. Neuro-Hospitalist Time with Patient: Less than 30
[2021-11-12 17:25] LABS: Glucose,Whole Blood 135 mg/dL (75-99)
[2021-11-12 20:25] LABS: Partial Thromboplastin Time 28.1 sec (22.0-30.0); Prothrombin Time 10.9 sec (9.0-12.0)
[2021-11-12] MEDS: [UNRECOGNIZED DRUG - OTHER] IV SCH ×6 (20:33)
[2021-11-12] MEDS: POTASSIUM ACETATE IV SCH ×6 (20:33)
[2021-11-12] MEDS: POTASSIUM PHOSPHATE IV SCH ×6 (20:33)
[2021-11-12] MEDS: CALCIUM GLUCONATE IV SCH ×6 (20:33)
[2021-11-12 20:35] LABS: Anisocytosis Slight; HCT 20.2 % (39.0-53.0); Hypochromasia Marked; MCH 26.4 pg (25.0-35.0); MCHC 30.8 g/dL (31.0-37.0); MCV 85.8 fL (80.0-100.0); Mean Platelet Volume 8.2; Platelet Count 572 k/uL (150-450); Poikilocytosis Moderate; RBC 2.35 m/uL (4.30-5.90); RDW 18.2 % (11.5-15.5); WBC 14.8 k/uL (3.8-10.6)
[2021-11-12] MEDS: NOREPINEPHRINE 8 MG in SODIUM CHLORIDE 0.9% 250 ML IV SCH (20:38)
[2021-11-12] MEDS ORDERED: SODIUM CHLORIDE 0.9% 2,000 ML IV ONE (20:40)
[2021-11-12 20:42] LABS: HGB 6.2 gm/dL (13.0-17.5)
--- NOTE | 2021-11-12 22:09 | P.PN ---
Progress Note - Text Progress Note Date: 11/12/21 Since my prior dictation the patient was noted become somewhat hypotensive. Labs were drawn and his hemoglobin is noted to be low at 6.2. 1 unit of transfused blood will be given at this time. Patient may require additional transfusions intraoperatively. Discussed with family through the nursing staff that the status would be held during the duration of the procedure and that we will readdress that postoperatively. They are agreeable.
[2021-11-12] MEDS ORDERED: ROCURONIUM 10 MG/ML (5 ML VIAL) IV ONE (22:25)
[2021-11-12] MEDS ORDERED: IV FLUID CONTINUATION 1,000 ML IV ONE (22:25)
[2021-11-12] MEDS ORDERED: fentaNYL (PF) 50 MCG/ML 2 ML AMP ONE (22:25)
[2021-11-12] MEDS ORDERED: SODIUM CHLORIDE 0.9% 1,000 ML IV ONE (22:53)
[2021-11-12 23:59] LABS: Glucose,Whole Blood 209 mg/dL (75-99)
--- NOTE | 2021-11-13 00:01 | P.OP ---
Date of Procedure: 11/12/21 Procedure(s) Performed: PREOPERATIVE DIAGNOSIS: Pneumoperitoneum suspected gastric leak POSTOPERATIVE DIAGNOSIS: Same, section of proximal jejunum with ischemic changes PROCEDURE: Exploratory laparotomy, drainage upper abdominal abscess, lysis of adhesions, small bowel resection SURGEON: Melissa EBL: 100 mL ANESTHESIA: Gen. COMPLICATIONS: None OPERATIVE PROCEDURE: Patient brought in place in the operative table in the supine position. The patient's sheldon removed. The abdomen was prepped and draped sterilely. The midline incision was bluntly opened back up. The fascia was after the PDS suture was excised. Blunt dissection ensued towards the epigastric region. I was able to retract the omentum and transverse colon away from the abdominal wall. I was able to identify the distal aspect of the stomach. I could palpate the tip of the nasogastric tube in the antrum. The stomach appeared viable distally. I could actually see the serosa and it was nice and healthy pink. As we dissected along the stomach I entered into a large bilious collection of fluid. This was evacuated. The tissues were stained bilious in appearance. I was able to palpate the stomach from the nasogastric tube that was indwelling. I could not visualize the staple line with certainty nor could I visualize any definite hole. We did not insufflate the stomach to look for a leak site. 2 separate drains were brought into the abdominal cavity one from the right upper quadrant and one from the left upper quadrant. The right upper quadrant drain went across the undersurface of the liver along the stomach up to the perisplenic space. The left upper quadrant drain looped behind the spleen along the course of the stomach. These were both sutured in place using 2-0 silk sutures. It should be noted there was some bloody fluid around the spleen that had some clotty material. A portion of this was evacuated. Given the patient's high nasogastric tube output I wanted to inspect the small bowel. The bowel had some adhesions between the areas bowel loops that were able to be bluntly dissected. I was able to visualize the terminal ileum fairly quickly and the bowel was followed proximally from that. As we approached the proximal jejunum we noted that there was a loop of jejunum that was densely adherent to the inferior aspect of the transverse colon and the transverse colonic mesentery. Overlying this was the omentum. As I was bluntly dissecting this area I identified a 1.5 cm section of serosa that was ischemic in appearance. As we inspected this closer there was a defect in the wall. As I dissected the bowel proximal to that a long section of jejunum was noted to have ischemic changes with a gangrenous portion of the antimesenteric wall measuring approximately 7 x 3 cm. This site also had evidence of perforation. There was no obvious abscess cavity around the section of bowel and I suspect that any leak that occurred was walled off by the adjacent transverse colon and omentum. I could not visualize any extension through the transverse colonic mesentery into the epigastric region. Thankfully we had approximately 8 cm of proximal jejunum just distal to the ligament of Treitz that was viable. The bowel was divided proximal and distal to the ischemic segment using linear 75 stapler. The mesentery was divided using the LigaSure device. The antimesenteric portion of the staple line was excised and the linear stapler was fired along the antimesenteric border. The remaining defect was closed transversely using a TX 60 device. A 3-0 GI silk crotch stitch was placed. A portion of the TX 60 stapler line was imbricated using interrupted 3-0 GI silk Lambert sutures. The abdomen was copiously irrigated at that time. No further abnormalities were encountered. I placed 2 #5 Ethibond sutures horizontally for retention sutures. These were later tied over a 20-[place] red rubber catheters. The midline fascia was reapproximated using 3 separate double-stranded #1 PDS sutures. The skin was left open and packed with Sonam roll gauze. Sterile dressings were applied. DISPOSITION: Guarded to the ICU. Operative findings discussed in detail with the patient's family. Will switch CODE STATUS back to no code with mechanical ventilation.
[2021-11-13] MEDS: SODIUM CHLORIDE 0.9% 1,000 ML IV SCH ×4 (00:30→18:36)
[2021-11-13] MEDS: INSULIN ASPART (NovoLOG) 100 UNIT/ML VIAL SQ SCH ×5 (00:33→23:54)
[2021-11-13] MEDS: PIPERACILLIN-TAZOBACTAM 3.375 GM in SODIUM CHLORIDE 0.9% 100 ML IVPB SCH ×4 (00:34→23:53)
[2021-11-13 01:39] LABS: Anisocytosis Slight; Hypochromasia Marked; MCH 25.9 pg (25.0-35.0); MCHC 29.4 g/dL (31.0-37.0); MCV 88.1 fL (80.0-100.0); Mean Platelet Volume 8.6; Platelet Count 702 k/uL (150-450); Poikilocytosis Moderate; RBC 3.17 m/uL (4.30-5.90); RDW 18.1 % (11.5-15.5); WBC 17.4 k/uL (3.8-10.6)
[2021-11-13 01:48] LABS: HGB 8.2 gm/dL (13.0-17.5)
[2021-11-13] MEDS: METOCLOPRAMIDE 5 MG/ML 2 ML VIAL IVP SCH ×4 (02:05→20:20)
[2021-11-13 03:41] LABS: Band Neutrophils % 38 %; Eosinophils # (M) 0.17 k/uL (0-0.7); Lymphocytes # (M) 1.39 k/uL (1.0-4.8); Metamyelocytes % 4 %; Monocytes # (M) 0.35 k/uL (0-1.0); Myelocytes # (M) 0.17 k/uL (0); Myelocytes % 1 %; Neutrophils % (M) 49 %; Nucleated Red Blood Cells 0 /100 WBC (0-0); Total Cells Counted 200
[2021-11-13 03:42] LABS: Large Platelets Present; Polychromasia Present
[2021-11-13] MEDS: HYDROmorphone 0.5 MG/0.5 ML SYRINGE IVP PRN ×5 (04:51→20:29)
[2021-11-13 05:38] LABS: ABG Base Excess -8.8 mmol/L; ABG HCO3 17 mmol/L (21-25); ABG Oxygen Saturation 98.4 % (94-97); ABG PCO2 33 mmHg (35-45); ABG PH 7.33 (7.35-7.45); ABG PO2 130 mmHg (83-108); ABG TCO2 18 mmol/L (19-24); Allen Test Performed? Yes
[2021-11-13] MEDS: ACETAMINOPHEN IV (For NPO) 1,000 MG in EMPTY BAG 1 BAG IVPB PRN ×2 (05:40→12:10)
[2021-11-13 05:51] LABS: Glucose,Whole Blood 155 mg/dL (75-99)
[2021-11-13 05:56] LABS: African American GFR (CKD) >90 (>60 ml/min/1.73 sqM); Anion Gap 2 mmol/L; Blood Urea Nitrogen 29 mg/dL (9-20); Calcium 7.6 mg/dL (8.4-10.2); Carbon Dioxide 17 mmol/L (22-30); Chloride 120 mmol/L (98-107); Glucose 154 mg/dL (74-99); Magnesium 2.3 mg/dL (1.6-2.3); Non-African American GFR(CKD) >90 (>60 ml/min/1.73 sqM); Phosphorus 3.9 mg/dL (2.5-4.5); Potassium 4.5 mmol/L (3.5-5.1); Sodium 139 mmol/L (137-145)
[2021-11-13] MEDS: IPRATROPIUM-ALBUTEROL 3 ML NEB INHALATION SCH ×3 (07:55→19:38)
[2021-11-13 07:57] LABS: Anisocytosis Slight; HCT 29.1 % (39.0-53.0); Hypochromasia Marked; MCH 26.8 pg (25.0-35.0); MCHC 30.9 g/dL (31.0-37.0); MCV 86.8 fL (80.0-100.0); Mean Platelet Volume 8.6; Platelet Count 782 k/uL (150-450); Poikilocytosis Moderate; RBC 3.35 m/uL (4.30-5.90); RDW 17.9 % (11.5-15.5)
[2021-11-13] MEDS: PANTOPRAZOLE 40 MG/10 ML VIAL IVP SCH ×2 (08:16→20:20)
--- NOTE | 2021-11-13 08:18 | XR ---
EXAMINATION TYPE: XR chest 1V portable DATE OF EXAM: 11/13/2021 COMPARISON: 11/13/2011 HISTORY: Tube placement TECHNIQUE: Single frontal view of the chest is obtained. FINDINGS: ET and NG tube stable. Right-sided central line stable. Left lower lobe infiltrate and sma ll effusion. No pneumothorax. Coarsened interstitium. Small right pleural effusion. Hypertrophic and degenerative change of the spine. IMPRESSION: 1. Bilateral infiltrate greater on the left with small left effusion. Correlate for interstitial pneu monitis or venous congestion. Findings stable.
[2021-11-13] MEDS: CHLORHEXIDINE GLUCONATE 15 ML CUP MUCOUS MEM SCH ×2 (08:25→20:20)
[2021-11-13] MEDS: ENOXAPARIN 40 MG/0.4 ML SYRINGE SQ SCH (08:26)
[2021-11-13 09:05] LABS: Band Neutrophils % 3 %; Eosinophils # (M) 0.41 k/uL (0-0.7); Lymphocytes # (M) 0.61 k/uL (1.0-4.8); Metamyelocytes # (M) 0.82 k/uL (0); Metamyelocytes % 4 %; Monocytes # (M) 1.02 k/uL (0-1.0); Myelocytes # (M) 0.61 k/uL (0); Myelocytes % 3 %; Neutrophils % (M) 81 %; Nucleated Red Blood Cells 2 /100 WBC (0-0); Total Cells Counted 200; WBC 20.4 k/uL (3.8-10.6)
[2021-11-13 09:06] LABS: Polychromasia Present; Toxic Granulation Present
[2021-11-13] MEDS: VANCOMYCIN 1,500 MG in SODIUM CHLORIDE 0.9% 250 ML IVPB SCH ×2 (09:46→20:20)
--- NOTE | 2021-11-13 10:05 | P.PN ---
Subjective Progress Note Date: 11/13/21 On the morning of 11/11/2021, the patient became acutely short of breath and the patient got transferred to the intensive care unit. The patient is known to me and I think in care of this patient last week as the patient had a extensive gastric surgery with partial gastrectomy , and the patient is postop day #12. The patient was taken to the operating room and the patient was found to have ischemia of the lateral portion of the stomach and mild/minimal ischemia of the proximal jejunum. The patient underwent a exploratory laparotomy and the patient underwent a partial gastrectomyand postop, the patient was treated for multisystem organ failure on his condition was stabilized and he got to point where the patient was extubated and he was transferred to a medical floor. Nevertheless, he was still maintained nothing by mouth. NG tube was still in place. The patient was receiving TPN for nutritional support. The patient was noted to be more lethargic yesterday. Overnight, the patient became unresponsive above and beyond his baseline knowing that he has baseline mental retardation. He was having also coarse breath sounds bilaterally and he was also found to be foaming at the mouth and he was having moderate degree of respiratory distress. Subsequently, he became more hypotensive, hypoxic and he was placed on a nonrebreather facemask and he was found to be febrile with tempe rature 103.2. At that point, the patient got transferred to the intensive care unit. Once in the ICU, the patient was placed On a BiPAP at a pressure of 14/6 cm of water with an FiO2 of 50%. His current meds ventilation is around 33. Respiratory rate is quite elevated at around above 50. He was hypotensive initially and he was given IV fluids total of 2 L of normal saline in the coming blood pressure is 108/69. His heart rate is sinus at the rate of 113. He is on a maintenance IV fluids with 0.9 and this will be increased to be related 150 mL an hour. Urine output is minimal at this point in time his blood work from this morning is showing an acute kidney injury in the creatinine is up to 1.49 with a BUN of 36 and the sodium level of 141. The white cell count is also elevated at 16.3. The incision over the abdomen looks dry clean and intact. Bowel sounds are hypoactive. NG tube is in place and it has drained approximately 400 mL since arrival to the intensive care unit. I was told that the angina but was quite elevated in order of 800 mL every 8 hours. On examination, the patient is unresponsive. He is not following any commands. His breathing is very much limited and he has coarse breath sounds on throughout the lung barkley bilaterally. He remains on IV Zosyn. He remains on TPN for nutritional support. His causes status is DO NOT RESUSCITATE/DO NOT INTUBATE. On 11/12/2021, the patient is intubated on a mechanical ventilator. Note that the patient is postop day #13 after his initial surgery which included a partial gastrectomy and this was done for an acute abdomen. At that time, the patient was found to have gastric ischemia/necrosis and he required extensive surgery for ischemia of the lateral portion of the stomach and ischemic changes in the proximal jejunum. In any rate, the patient got transferred to the ICU yesterday because of acute hypoxic respiratory failure, acute tachypnea, shortness of breath, and drop in urine output. Immediately, the patient was intubated and placed on a mechanical ventilator. Post intubation, the patient underwent a bronchoscopy which revealed copious amount of rest or secretions in the upper airway and in the lungs bilaterally more so on the left. At that point, bronchoscopy was done and therapeutic it was suctioning was done. The lavage was sent for cultures from the left lower lobe and the results are still pending for now. Meanwhile, the patient underwent a computed tomography scan of the c hest and abdomen and this was completed yesterday and based on the findings, the patient has evidence of bilateral pulmonary infiltrates most on the left lower lobe consistent with pneumonia. The patient also had some pleural effusion on the left. There was consolidation of the lung bases/atelectasis. There was abdominal ascites that had improved. There was evidence of mild small bowel ileus. There was also evidence of subcutaneous edema as expected. Case was discussed with general surgery. No role for any surgical intervention this point in time. Hemoglobin was low at 5.6.5 and the patient was given packed RBC transfusion 1. Morning hemoglobin is at 7.3. Meanwhile, the patient is sedated at and the patient is currently on propofol running at 50 mcg/kg per minute and the patient is on a mechanical ventilator. This morning, is on assist control of 28, tidal volume of 400, FiO2 of 50% with a PEEP of 5. Chest x-ray showing left lower lobe atelectasis/consolidation. Blood gas shows a pH of 7.34 with a pCO2 of 36 and pO2 of 163. NG tube is in place. Output is been in order of 500 mL over the past 8 hours. The output was somewhat bloody/blood- tinged. No ion blood. No blood clots. No coffee-ground material. Patient continues to be on TPN for nutritional support. Antibiotic coverage includes a combination of Zosyn and vancomycin was also added yesterday due to concern of an underlying staphylococcal superinfection. Note that the patient was febrile overnight and currently is afebrile. Creatinine is improving and creatinine is down to 1.17. The patient was resuscitated aggressively with IV fluids. He was given a total of 3 L of fluid yesterday. His creatinine is down to 1.1 and the BUN is down to 38. Serum bicarb is at 17 with a sodium level of 142. Current maintenance IV fluids in the form of normal saline at the rate of 150 mL an hour. Overall fluid balance since yesterday has been in the order of +5.9 L. The patient is not requiring any pressors for now. Blood pressure is improved. Urine output is also improved. 11/13/2021, I'm seeing the patient for a follow-up. Note that the patient had another surgical exploration yesterday. Upon review of his CAT scan of the abdomen, there was evidence of fluid collection and possible/questionable gastric leak and no paratonia. Case was discussed with a general surgeon. Case was discussed with the family. It was decided to take the patient back to the operating room for another exploration. The patient intraoperatively was found to have abdominal fluid/abscess that was drained. There was less of adhesion. Upon further inspection, a portion of the jejunum was ischemic and was resected. Estimated blood loss was around 100 mL. The patient was brought back to the ICU after surgical wound closure. For now, the patient is still on a mechanical ventilator. EBONY drain is in place and output has been in the order of 100 mL since his arrival from the operating room and this is essentially serosanguineous. Output from the NG tube has dropped since yesterday. Output is minimal at this point in time. The patient is sedated on propofol and currently propofol is running at 50 mcg/kg per minute. The patient is well sedated. He remains on a mechanical ventilator at assist control of 28, tidal volume of 400, FiO2 of 40% with a PEEP of 5. Blood gas shows a pH of 7.33 with a pCO2 of 33 and pO2 of 130. Chest x-ray showed improvement of bilateral pleural effusions and atelectatic changes in lung bases more so on the right. ET tube is in a good location. The patient also has an NG tube which is also in good location. Note that overnight, the patient was becoming progressively more hypotensive. I gave him a total of 3 L of IV fluid boluses and his overall fluid balance is positive at least 8 L over the past 24 hours. Meanwhile, the patient was also started on pressors. Currently is on norepinephrine running at 0.1 mcg/kg per minute. White cell count is up to 20.4 with a hemoglobin 0.0. His creatinine today is at 0.9 with a mean of 29 and a serum bicarbonate of 17 with a sodium level of 139. His antibiotic coverage remains a combination of Zosyn and vancomycin. The patient is also on TPN for nutritional support. Urine output is in order of 60 mL an hour. His CODE STATUS has been going back in 4 between full and no cords. For now, he is a no code with exception of mechanical ventilation. Noted the patient also received a unit of packed RBC pr eoperatively yesterday. At the same time, the patient is febrile and he is receiving IV Tylenol regarding his episodic fever. Objective - Vital Signs Vital signs: Vital Signs Temp 101.8 F H 11/13/21 09:00 Pulse 120 H 11/13/21 09:00 Resp 33 H 11/13/21 09:00 BP 113/62 11/13/21 05:45 Pulse Ox 96 11/13/21 09:00 Intake & Output 11/12/21 11/13/21 11/13/21 18:59 06:59 18:59 Intake Total 3817.321 3790.569 357.087 Output Total 2575 1915 60 Balance 5641.626 6580.569 297.087 Weight 82.7 kg 87 kg Intake: IV 3023 920 220 Piperacillin-Tazobactam 3 200 .375 gm In Sodium Chloride 0.9% 100 ml @ 25 mls/hr IVPB Q8HR [facility] Rx# :[id number] Sodium Chloride 0.9% 1982 150 000 ml @ 20 mls/hr IV . Q24H [facility] Rx#:[id number] TPN/MVI 840 770 70 Intake, IV Titration 291.032 1528.569 137.087 Amount Norepinephrine 8 mg In 193.276 85.887 37.087 Sodium Chloride 0.9% 250 ml @ 0.05 MCG/KG/MIN 7. 808 mls/hr IV .Q24H [facility] Rx#:[id number] Sodium Chloride 0.9% 2, 2000 000 ml @ 999 mls/hr IV . Q2H1M [facility] Rx#:[id number] Vancomycin 1,500 mg In 250 Sodium Chloride 0.9% 250 ml @ 125 mls/hr IVPB Q12HR [facility] Rx#:[id number] Vancomycin 1,500 mg In 250 Sodium Chloride 0.9% 250 ml @ 125 mls/hr IVPB Q16H [facility] Rx#:[id number] propofoL 1,000 mg In 351.045 224.682 100 Empty Bag 1 bag @ 20 MCG/ KG/MIN 9.684 mls/hr IV . [id number] [facility] Rx#:[id number] Blood Product 310 Rc As-1 Unit 310 [id number] Output: Gastric Drainage 1550 750 Urine 1025 1115 60 Estimated Blood Loss 50 Other: Voiding Method Indwelling Catheter Indwelling Catheter ABP, PAP, CO, CI - Last Documented Arterial Blood Pressure 93/42 - Exam GENERAL: Patient is responsive, breathing is comfortable and the patient is currently sedated with propofol and his quite successful mechanical ventilator. No tachypnea. No use of excessive muscle breathing. NGgastric and orotracheal tube are both in place. Head exam was generally normal. There was no scleral icterus or corneal arcus. Mucous membranes were moist. HEENT: Pupils are round and equally reacting to light. EOMI. No scleral icterus. No conjunctival pallor. Normocephalic, atraumatic. No pharyngeal erythema. No thyromegaly. Orogastric and orotracheal tube are both in place. CARDIOVASCULAR: S1 and S2 present. No murmurs, rubs, or gallops. PULMONARY: Diffuse rhonchi heard throughout the lung barkley bilaterally. The patient has diminished breath on the left lung base. ABDOMEN: Absent bowel sounds and the surgical wound site over the mid abdomen is dry clean and intact. No direct tenderness. No rebound tenderness. No guarding. No organomegaly. The surgical wound site over the abdominal wall is dry clean and intact. NG tube is in place. Bowel sounds remain absent. MUSCULOSKELETAL: No joint swelling or deformity. EXTREMITIES: Extremities are cold and clammy and there are diminished pulses in all 4 extremities. No cyanosis. No clubbing. NEUROLOGICAL still somnolent and lethargic, not grimacing to deep painful stimulation. Not following commands and the patient is currently sedated with propofol. Examination of the skin revealed no evidence of significant rashes, suspicious appearing nevi or other concerning lesions. - Labs CBC & Chem 7: 11/13/21 07:42 11/13/21 05:10 Labs: Abnormal Lab Results - Last 24 Hours (Table) 11/11/21 11/12/21 11/12/21 Range/Units 19:05 11:58 17:24 WBC (3.8-10.6) k/uL RBC (4.30-5.90) m/uL Hgb (13.0-17.5) gm/dL Hct (39.0-53.0) % MCHC (31.0-37.0) g/dL RDW (11.5-15.5) % Plt Count (150-450) k/uL Neutrophils # (Manual) (1.3-7.7) k/uL Lymphocytes # (Manual) (1.0-4.8) k/uL Monocytes # (Manual) (0-1.0) k/uL Metamyelocytes # (Man) (0) k/uL Myelocytes # (Manual) (0) k/uL Nucleated RBCs (0-0) /100 WBC ABG pH (7.35-7.45) ABG pCO2 (35-45) mmHg ABG pO2 (83-108) mmHg ABG HCO3 (21-25) mmol/L ABG Total CO2 (19-24) mmol/L ABG O2 Saturation (94-97) % Chloride (98-107) mmol/L Carbon Dioxide (22-30) mmol/L BUN (9-20) mg/dL Glucose (74-99) mg/dL POC Glucose (mg/dL) 153 H 135 H (75-99) mg/dL Calcium (8.4-10.2) mg/dL Crossmatch See Detail 11/12/21 11/12/21 11/13/21 Range/Units 19:52 23:57 00:45 WBC 14.8 H 17.4 H (3.8-10.6) k/uL RBC 2.35 L 3.17 L (4.30-5.90) m/uL Hgb 6.2 L* 8.2 L D (13.0-17.5) gm/dL Hct 20.2 L 28.0 L (39.0-53.0) % MCHC 30.8 L 29.4 L (31.0-37.0) g/dL RDW 18.2 H 18.1 H (11.5-15.5) % Plt Count 572 H 702 H (150-450) k/uL Neutrophils # (Manual) 15.10 H (1.3-7.7) k/uL Lymphocytes # (Manual) (1.0-4.8) k/uL Monocytes # (Manual) (0-1.0) k/uL Metamyelocytes # (Man) 0.70 H (0) k/uL Myelocytes # (Manual) 0.17 H (0) k/uL Nucleated RBCs (0-0) /100 WBC ABG pH (7.35-7.45) ABG pCO2 (35-45) mmHg ABG pO2 (83-108) mmHg ABG HCO3 (21-25) mmol/L ABG Total CO2 (19-24) mmol/L ABG O2 Saturation (94-97) % Chloride (98-107) mmol/L Carbon Dioxide (22-30) mmol/L BUN (9-20) mg/dL Glucose (74-99) mg/dL POC Glucose (mg/dL) 209 H (75-99) mg/dL Calcium (8.4-10.2) mg/dL Crossmatch 11/13/21 11/13/21 11/13/21 Range/Units 05:10 05:34 05:49 WBC (3.8-10.6) k/uL RBC (4.30-5.90) m/uL Hgb (13.0-17.5) gm/dL Hct (39.0-53.0) % MCHC (31.0-37.0) g/dL RDW (11.5-15.5) % Plt Count (150-450) k/uL Neutrophils # (Manual) (1.3-7.7) k/uL Lymphocytes # (Manual) (1.0-4.8) k/uL Monocytes # (Manual) (0-1.0) k/uL Metamyelocytes # (Man) (0) k/uL Myelocytes # (Manual) (0) k/uL Nucleated RBCs (0-0) /100 WBC ABG pH 7.33 L (7.35-7.45) ABG pCO2 33 L (35-45) mmHg ABG pO2 130 H (83-108) mmHg ABG HCO3 17 L (21-25) mmol/L ABG Total CO2 18 L (19-24) mmol/L ABG O2 Saturation 98.4 H (94-97) % Chloride 120 H (98-107) mmol/L Carbon Dioxide 17 L (22-30) mmol/L BUN 29 H (9-20) mg/dL Glucose 154 H (74-99) mg/dL POC Glucose (mg/dL) 155 H (75-99) mg/dL Calcium 7.6 L (8.4-10.2) mg/dL Crossmatch 11/13/21 Range/Units 07:42 WBC 20.4 H (3.8-10.6) k/uL RBC 3.35 L (4.30-5.90) m/uL Hgb 9.0 L (13.0-17.5) gm/dL Hct 29.1 L (39.0-53.0) % MCHC 30.9 L (31.0-37.0) g/dL RDW 17.9 H (11.5-15.5) % Plt Count 782 H (150-450) k/uL Neutrophils # (Manual) 17.10 H (1.3-7.7) k/uL Lymphocytes # (Manual) 0.61 L (1.0-4.8) k/uL Monocytes # (Manual) 1.02 H (0-1.0) k/uL Metamyelocytes # (Man) 0.82 H (0) k/uL Myelocytes # (Manual) 0.61 H (0) k/uL Nucleated RBCs 2 H (0-0) /100 WBC ABG pH (7.35-7.45) ABG pCO2 (35-45) mmHg ABG pO2 (83-108) mmHg ABG HCO3 (21-25) mmol/L ABG Total CO2 (19-24) mmol/L ABG O2 Saturation (94-97) % Chloride (98-107) mmol/L Carbon Dioxide (22-30) mmol/L BUN (9-20) mg/dL Glucose (74-99) mg/dL POC Glucose (mg/dL) (75-99) mg/dL Calcium (8.4-10.2) mg/dL Crossmatch Microbiology - Last 24 Hours (Table) 11/11/21 12:30 Gram Stain - Final Bronchial Washings - Random Bronchial Washings Culture - Final 11/11/21 12:30 Acid Fast Bacilli Smear - Final Bronchial Washings - Random Acid Fast Bacilli Culture - Preliminary 11/11/21 12:00 Acid Fast Bacilli Smear - Final Bronchial Washings - Random Acid Fast Bacilli Culture - Preliminary 11/10/21 18:03 Blood Culture - Preliminary Blood No Growth after 48 hours 11/11/21 12:00 Gram Stain - Preliminary Bronchoalviolar Lavage - Left Bronchial Washings Culture - Preliminary 11/08/21 09:54 Blood Culture - Preliminary Blood No Growth after 96 hours Assessment and Plan Plan: 1 partial gastrectomy as the patient was found to have ischemic anterior gastric wall with questionable small bowel ischemia. The patient underwent partial gastrectomy and the patient is postop day #14. The patient had a setback yesterday when the patient decompensated and was brought in to the ICU with acute hypoxic respiratory failure, acidosis, and acute kidney injury. The patient did aspirate. Following that, CAT scan of the abdomen and chest was done and it showed pneumoperitoneum suspicious for gastric leak. Further investigation with another expiratory laparotomy that was done yesterday showed evidence of intra-abdominal abscesses that was drained and the patient was found to have ischemic small bowel, involving the jejunum that was resected surgically. Patient is postop day #1 following exploratory laparotomy, lysis of adhesions and partial small bowel resection. 2 acute pneumonia with left lower lobe consolidation/atelectasis and copious amount of rest or secretions post bronchoscopy and therapeutic it was suctioning and lavage of the left lower lobe. Currently on a combination of Zosyn and vancomycin awaiting further cultures. Currently intubated on a mechanical ventilator. The patient's bronchial alveolar lavage are still negative 3 acute hypoxic respiratory failure , secondary to above currently intubated on a mechanical ventilator 3 acute lactic acidosis, secondary to above, improved, lactic acid level was 3.8 yesterday and this morning is down to 1.5 4 acute kidney injury, improved in the creatinine is normalized 5 acute hypotension/sepsis. Patient is currently on pressors. Aggressively resuscitated IV fluids, in a positive fluid balance of 8 L and the patient is also on accommodation of Zosyn and vancomycin. The white cell count is elevated at 20. The patient continues to have episodes of fever. 6 diabetes mellitus 7 hypertension 8 Developmental delay and autism 9 episodic hypoglycemia, recovered and the patient was receiving TPN for nutritional support 10 Acute blood loss anemia, expected outcome post gastric surgery and small bowel resection. The patient received a unit of packed RBC yesterday. Today's hemoglobin is at 9.0. Lowest hemoglobin from yesterday was at 6.2. 11 history of CVA events. No vent changes Plan Continue ventilator support normal saline @150 cc/hr Continued IV Zosyn and vanco Awaiting BAL results and possibility any fluid that was taken intraoperatively f rom the abdominal abscess. We'll continue same antibiotic coverage for now. Continue TPN for nutritional support Continue norepinephrine infusion currently running at 0.1 Alex respiratory per minute Check echocardiogram done on 10/29/2032 showed an ejection fraction of 60-65% Keep the patient nothing by mouth Monitor the white cell count, monitor the renal function DNR Family will be arriving to the hospital. Possible end-of-life care based on his baseline developmental delay and mental retardation in addition to extensive comorbidities as mentioned above. We'll continue to follow. We'll support this case in the ICU, awaiting family to arrive. Critically care evaluation that was done more than 30 minutes Time with Patient: Greater than 30
[2021-11-13] MEDS: CALCIUM GLUCONATE IV SCH ×6 (10:57)
[2021-11-13] MEDS: POTASSIUM ACETATE IV SCH ×6 (10:57)
[2021-11-13] MEDS: [UNRECOGNIZED DRUG - OTHER] IV SCH ×6 (10:57)
[2021-11-13] MEDS: POTASSIUM PHOSPHATE IV SCH ×6 (10:57)
[2021-11-13] MEDS: NOREPINEPHRINE 8 MG in SODIUM CHLORIDE 0.9% 250 ML IV SCH (11:42)
[2021-11-13 12:21] LABS: Glucose,Whole Blood 154 mg/dL (75-99)
--- NOTE | 2021-11-13 13:33 | P.PN ---
Subjective Progress Note Date: 11/13/21 CHIEF COMPLAINT: Abdominal pain HISTORY OF PRESENT ILLNESS: Patient remains in the ICU and intubated. He required to be taken back to surgery yesterday. He is status post exploratory laparotomy, drainage of upper abdominal abscess, lysis of adhesions and small bowel resection for pneumoperitoneum, suspected gastric leak and section of proximal jejunum with ischemic changes. Patient has been febrile with a temp of 102.7 white count has increased to 17.4. His NG tube output is bile in color but has decreased output of 750 ML. GP drain on the left is bile in color and EBONY drain on the right is serosanguineous. PHYSICAL EXAM: VITAL SIGNS: Reviewed. GENERAL: Intubated HEENT: Moist buccal mucosa. Head is atraumatic, normocephalic. ABDOMEN: Soft. Mildly distended. Incisional dressing clean dry and intact ASSESSMENT: 1. Pneumoperitoneum, suspected gastric leak and section of proximal jejunum with ischemic changes status post exploratory laparotomy, drainage of upper abdominal abscess, lysis of adhesions and small bowel resection. Postop day #1 2. Ischemia of the lateral portion of the stomach and mild ischemia of the proximal jejunum status post exploratory laparotomy and partial gastrectomy on 10/30/21 3. Septic shock 4. Postoperative ileus 5. Thrombocytopenia resolved 6. Pneumonia 7. Anemia PLAN: -Continue ICU management -Continue supportive care -Continue IV fluids -Continue NG tube for decompression -Continue to monitor EBONY drain output -Keep patient nothing by mouth -Continue antibiotics -Continue Reglan for ileus -Continue TPN for nutrition support -CODE STATUS DO NOT RESUSCITATE -DVT prophylaxis [employer] [employer] note has been reviewed by physician. Signing provider agrees with the documented findings, assessment, and plan of care. Objective - Vital Signs Vital signs: Vital Signs Temp 102.4 F H 11/13/21 12:00 Pulse 109 H 11/13/21 12:00 Resp 32 H 11/13/21 12:00 BP 124/70 11/13/21 12:00 Pulse Ox 96 11/13/21 12:00 Intake & Output 11/12/21 11/13/21 11/13/21 18:59 06:59 18:59 Intake Total 3817.321 3790.569 1670.626 Output Total 2575 1915 590 Balance 3489.400 7976.569 1080.626 Weight 82.7 kg 87 kg Intake: IV 3023 920 1487.5 OMFIRMEV 100 Piperacillin-Tazobactam 3 200 37.5 .375 gm In Sodium Chloride 0.9% 100 ml @ 25 mls/hr IVPB Q8HR [facility] Rx# :[id number] Sodium Chloride 0.9% , 1983 750 000 ml @ 20 mls/hr IV . Q24H [facility] Rx#:[id number] TPN/MVI 840 770 350 Vancomycin 250 Intake, IV Titration 550.614 7838.569 183.126 Amount Norepinephrine 8 mg In 193.276 85.887 83.126 Sodium Chloride 0.9% 250 ml @ 0.05 MCG/KG/MIN 7. 808 mls/hr IV .Q24H [facility] Rx#:[id number] Sodium Chloride 0.9% 2, 2000 000 ml @ 999 mls/hr IV . Q2H1M [facility] Rx#:[id number] Vancomycin 1,500 mg In 250 Sodium Chloride 0.9% 250 ml @ 125 mls/hr IVPB Q12HR [facility] Rx#:[id number] Vancomycin 1,500 mg In 250 Sodium Chloride 0.9% 250 ml @ 125 mls/hr IVPB Q16H [facility] Rx#:[id number] propofoL 1,000 mg In 351.045 224.682 100 Empty Bag 1 bag @ 20 MCG/ KG/MIN 9.684 mls/hr IV . [id number] [facility] Rx#:[id number] Blood Product 310 Rc As-1 Unit 310 [id number] Output: Gastric Drainage 1550 750 Drainage 360 Left Abdomen 330 Right Abdomen 30 Urine 1025 1115 230 Estimated Blood Loss 50 Other: Voiding Method Indwelling Catheter Indwelling Catheter ABP, PAP, CO, CI - Last Documented Arterial Blood Pressure 92/45 - Labs CBC & Chem 7: 11/13/21 07:42 11/13/21 05:10 Labs: Abnormal Lab Results - Last 24 Hours (Table) 11/11/21 11/12/21 11/12/21 Range/Units 19:05 17:24 19:52 WBC 14.8 H (3.8-10.6) k/uL RBC 2.35 L (4.30-5.90) m/uL Hgb 6.2 L* (13.0-17.5) gm/dL Hct 20.2 L (39.0-53.0) % MCHC 30.8 L (31.0-37.0) g/dL RDW 18.2 H (11.5-15.5) % Plt Count 572 H (150-450) k/uL Neutrophils # (Manual) (1.3-7.7) k/uL Lymphocytes # (Manual) (1.0-4.8) k/uL Monocytes # (Manual) (0-1.0) k/uL Metamyelocytes # (Man) (0) k/uL Myelocytes # (Manual) (0) k/uL Nucleated RBCs (0-0) /100 WBC ABG pH (7.35-7.45) ABG pCO2 (35-45) mmHg ABG pO2 (83-108) mmHg ABG HCO3 (21-25) mmol/L ABG Total CO2 (19-24) mmol/L ABG O2 Saturation (94-97) % Chloride (98-107) mmol/L Carbon Dioxide (22-30) mmol/L BUN (9-20) mg/dL Glucose (74-99) mg/dL POC Glucose (mg/dL) 135 H (75-99) mg/dL Calcium (8.4-10.2) mg/dL Crossmatch See Detail 11/12/21 11/13/21 11/13/21 Range/Units 23:57 00:45 05:10 WBC 17.4 H (3.8-10.6) k/uL RBC 3.17 L (4.30-5.90) m/uL Hgb 8.2 L D (13.0-17.5) gm/dL Hct 28.0 L (39.0-53.0) % MCHC 29.4 L (31.0-37.0) g/dL RDW 18.1 H (11.5-15.5) % Plt Count 702 H (150-450) k/uL Neutrophils # (Manual) 15.10 H (1.3-7.7) k/uL Lymphocytes # (Manual) (1.0-4.8) k/uL Monocytes # (Manual) (0-1.0) k/uL Metamyelocytes # (Man) 0.70 H (0) k/uL Myelocytes # (Manual) 0.17 H (0) k/uL Nucleated RBCs (0-0) /100 WBC ABG pH (7.35-7.45) ABG pCO2 (35-45) mmHg ABG pO2 (83-108) mmHg ABG HCO3 (21-25) mmol/L ABG Total CO2 (19-24) mmol/L ABG O2 Saturation (94-97) % Chloride 120 H (98-107) mmol/L Carbon Dioxide 17 L (22-30) mmol/L BUN 29 H (9-20) mg/dL Glucose 154 H (74-99) mg/dL POC Glucose (mg/dL) 209 H (75-99) mg/dL Calcium 7.6 L (8.4-10.2) mg/dL Crossmatch 11/13/21 11/13/21 11/13/21 Range/Units 05:34 05:49 07:42 WBC 20.4 H (3.8-10.6) k/uL RBC 3.35 L (4.30-5.90) m/uL Hgb 9.0 L (13.0-17.5) gm/dL Hct 29.1 L (39.0-53.0) % MCHC 30.9 L (31.0-37.0) g/dL RDW 17.9 H (11.5-15.5) % Plt Count 782 H (150-450) k/uL Neutrophils # (Manual) 17.10 H (1.3-7.7) k/uL Lymphocytes # (Manual) 0.61 L (1.0-4.8) k/uL Monocytes # (Manual) 1.02 H (0-1.0) k/uL Metamyelocytes # (Man) 0.82 H (0) k/uL Myelocytes # (Manual) 0.61 H (0) k/uL Nucleated RBCs 2 H (0-0) /100 WBC ABG pH 7.33 L (7.35-7.45) ABG pCO2 33 L (35-45) mmHg ABG pO2 130 H (83-108) mmHg ABG HCO3 17 L (21-25) mmol/L ABG Total CO2 18 L (19-24) mmol/L ABG O2 Saturation 98.4 H (94-97) % Chloride (98-107) mmol/L Carbon Dioxide (22-30) mmol/L BUN (9-20) mg/dL Glucose (74-99) mg/dL POC Glucose (mg/dL) 155 H (75-99) mg/dL Calcium (8.4-10.2) mg/dL Crossmatch 11/13/21 Range/Units 12:19 WBC (3.8-10.6) k/uL RBC (4.30-5.90) m/uL Hgb (13.0-17.5) gm/dL Hct (39.0-53.0) % MCHC (31.0-37.0) g/dL RDW (11.5-15.5) % Plt Count (150-450) k/uL Neutrophils # (Manual) (1.3-7.7) k/uL Lymphocytes # (Manual) (1.0-4.8) k/uL Monocytes # (Manual) (0-1.0) k/uL Metamyelocytes # (Man) (0) k/uL Myelocytes # (Manual) (0) k/uL Nucleated RBCs (0-0) /100 WBC ABG pH (7.35-7.45) ABG pCO2 (35-45) mmHg ABG pO2 (83-108) mmHg ABG HCO3 (21-25) mmol/L ABG Total CO2 (19-24) mmol/L ABG O2 Saturation (94-97) % Chloride (98-107) mmol/L Carbon Dioxide (22-30) mmol/L BUN (9-20) mg/dL Glucose (74-99) mg/dL POC Glucose (mg/dL) 154 H (75-99) mg/dL Calcium (8.4-10.2) mg/dL Crossmatch Microbiology - Last 24 Hours (Table) 11/08/21 09:54 Blood Culture - Preliminary Blood No Growth after 120 hours 11/11/21 12:00 Gram Stain - Final Bronchoalviolar Lavage - Left Bronchial Washings Culture - Final Cortney albicans 11/11/21 12:30 Gram Stain - Final Bronchial Washings - Random Bronchial Washings Culture - Final 11/11/21 12:30 Acid Fast Bacilli Smear - Final Bronchial Washings - Random Acid Fast Bacilli Culture - Preliminary 11/11/21 12:00 Acid Fast Bacilli Smear - Final Bronchial Washings - Random Acid Fast Bacilli Culture - Preliminary 11/10/21 18:03 Blood Culture - Preliminary Blood No Growth after 48 hours
[2021-11-13 18:29] LABS: Glucose,Whole Blood 160 mg/dL (75-99)
--- NOTE | 2021-11-13 20:17 | P.PN ---
Subjective Progress Note Date: 11/13/21 Patient was admitted for nausea vomiting diarrhea believed to have gastroenteritis. Patient continued to have vomiting and started having abdominal tenderness because of which CT of the abdomen was obtained which showed pneumatosis coli along with some gas in the venous system concern for ischemic bowel. Patient was started on Zosyn. Patient subsequently decompensated patient became hypotensive with BP of 60/40 transferred to ICU patient was given 3 L of boluses of IV fluid NG tube was placed which showed bloody output . Patient in septic shock and receiving norepinephrine at this time. Recent echo showed normal ejection fraction. Patient had CTA of the chest which was negative for pulmonary embolism patient creatinine has worsened and went up to 2.80 today from 1.14 yesterday and this is secondary to acute tubular necrosis from sepsis and septic shock. Patient does have lactic acidosi s, patient does have lactic acidosis with lactic acidosis 7.5. Patient will be given 1 L of IV fluids continue pressor support. he is intubated and sedated. 10/31/2021 Patient is started having urine output. Patient underwent a arthrotomy yesterday and found to have ischemia of the lateral portion of the stomach and ischemia of the proximal jejunum patient underwent partial gastrectomy. Patient is presently on that to pressors maximized on norepinephrine, patient is also on vasopressin receiving albumin, IV fluids started having minimal urine output patient was anuric last night. Patient's chloride is highly elevated leading to metabolic acidosis patient also has an anion gap metabolic acidosis from lactic acidosis which appears to be improving at this time patient's overall clinical condition is guarded and the prognosis is poor. Patient Y blood cell count went down in fact patient is neutropenic now. Patient is presently not receiving any nutrition at this time. 11/01/2021 Patient is seen in follow-up continues to be closely monitored in the ICU in critical condition. Multiple medical consultations including pulmonary mannequin wig maker, cardiology, surgery following closely. Patient is status post partial gastrectomy postop day #2. Patient continues on IV Zosyn along with normal saline at 75 ML per hour. Per nursing staff patient continues on Levophed along with vasopressin for pressor support. Patient not tolerating weaning very well to assess mentation. Patient continues on sedation of propofol and will continue. Chest x-ray today shows basilar atelectasis, may be associated effusion and to correlate to exclude pneumonia. Per nursing staff there has been minimal NG tube output and of note on the x-ray the distal tip of the NG tube is obscured although unable to fully see as there is overlying artifacts with the telemetry monitoring and the patient is rotated. Patient is also having hypoglycemic events and was started on dextrose. Surgery plans for TPN for nutritional support. Family at the bedside today and their questions and concerns were answered. 11/02/2021 Patient evaluated today in the ICU he is postoperative day #3 for partial gastrectomy, currently intubated with an FiO2 of 30% with a PEEP of 5. Current oxygen saturations are 99 to 100%. Blood pressures 119/61, respirations 28, heart rate 107, afebrile. Chest x-ray today shows a stable chest with pleural effusion unchanged, perihilar and basilar infiltrates persist. Per nurse about 500 mLs output from NG tube in the last 12 hours. Continues on IV lasix, TPN, IV zosyn. Pressor support and propfol are currently on hold. Blood pressures are maintaining 120s systolic, heart rate 113 sinus tachycardia, afebrile, respirations 27. Patient with indwelling catheter, urine is dark susana, per nurse no BM since surgery, bowels are absent left lower quadrant, hypoactive to the right quadrant. Labs today show white count 6, hemoglobin 8.6, sodium 142, potassium 3.9, chloride 124, CO2 15, BUN 41, creatinine 1.39, blood glucose in the 80s, calcium 7.2, total bili 1.7, AST 145, ALT 59. Patient is being followed closely by pulmonary, cardiology, and surgical services. 11/03/2021 Patient evaluated today and closely monitored in ICU remains in critical condition. Patient's been off sedation for 24 hours. He is currently spontaneous eye opening, eyes are tracking however he does not move his face, not following motor commands unable to wiggle fingers. Once patient is more a lert may tolerate extubation. He continues to be vented, Fi02 30% with a PEEP of 5 his current oxygen saturation 96%, blood pressure 112/74, heart rate sinus tachycardic in the low 100's, he has been afebrile. Patient has been in a negative fluid balance with -1.8 Liters in the last 24 hours and received 3 doses of IV lasix which is now discontinued. Bowel sounds are hypoactive, abdominal binder in place with dressings intact to midline incision, no bowel movements or passing gas as reported by RN. Creatinine slightly increased today to 1.44, BUN 37. No white count, hemoglobin stable at 8.2, platelets decreased to 40's for the last 2 days, heparin was discontinued, continues with SCD's. Liver enzymes stable from yesterday. Continues on D10 infusion, TPN, maintaining blood pressures off pressor support. Continues on IV zosyn. Chest xray today shows unchanged pleural effusion. Patient remains in the ICU followed closely by pulmonary, cardiology, and surgical services in critical condition. Code status was changed to DNR by family. 11/04/2021 Patient evaluated today in the intensive care unit, he is more alert than yesterday. Per RN patient had a large bowel movement today and bowels are hypoactive today in all quadrants. BM was a maroon color per nurse. Abdominal binder in place. Continues with rivas catheter with over 3L of urine output in the last 24 hours, still with peripheral edema. IV lasix 60 mg x1 was given today. NGT remains in place with only 50 mLs of output overnight. Patient remains off sedation, remains off pressor support. Blood pressure today 115/69, heart rate 106, low grade fever this morning 99.2 axillary, and patient was extubated mid morning is on a 15 L HF cannula. Chest xray this morning shows stable bilateral consolidation and pleural effusion. Remains on D10 gtt at 20 mLs per hour, TPN/Lipids, and IV zosyn. Patient also received potassium suppl ementation today. Followed closely by multiple consultations including cardiology, pulmonary, and surgery and remains in guarded condition. Labs reviewed: sodium 135, potassium 3.2, chloride 120, CO2 20, BUN 45, creat 1.26, blood glucose in the 110's, AST 81, ALT and alk phos have normalized. 11/05/2021 Patient is seen and evaluated in follow-up continues to be in the ICU under close monitoring. Patient was recently extubated and continues on 5 L high flow nasal cannula and oxygen saturations have been 97-100%. Multiple medical consultations including pulmonary mannequin wig maker and surgery following closely. Chest x-ray today shows removal of endotracheal tube along with NG tube and central venous catheter on the right remains in place with no evident pneumothorax and to correlate for pneumonia, congestive heart failure, possible effusions and associated atelectasis versus edema. Patient did receive a dose of IV Lasix yesterday. Neurology consulted and CT of the brain without contrast ordered to assess mentation which is currently pending. Patient is continued on D10 and water and maintaining blood sugars in the 120s and will continue current regimen. Hemoglobin is 7.7 today with no bleeding noted. Platelets on the lower side at 65 although improved from previous and will continue to monitor closely with repeat labs in the morning. Patient also continues on IV Zosyn and will continue at this time. 11/06/2021 Patient is seen in follow-up continues to be in the ICU with multiple medical consultations following. Patient was evaluated by neurology and EEG was ordered and pending. Patient underwent CT of the brain which showed no acute abnormality noted. Patient also had chest x-ray today which shows no significant interval change compared to yesterday with continued questionable pulmonary infiltration at the mid to lower lung zones and there is some congested pulmonary vasculature with bilateral pleural effusions. Patient had been receiving one-time doses of IV Lasix daily and will add scheduled 40 mg IV Lasix and recommend repeat labs and follow-up chest x-ray. Patient is tolerating 3 L high flow via nasal cannula and maintaining oxygen saturations above 97%. Patient continues with significant weakness and PT/OT therapy consulted to follow the patient daily. Patient noted to have increased output noted in the NG tube and general surgery following an plan is for CT abdomen with contrast this afternoon. Will await report. Continues to be nothing by mouth on TPN and will continue for now. 11/07/2021 Patient is seen and continues to be closely monitored in the ICU. Patient underwent CT abdomen and pelvis which shows some resolution of the previously seen gastric pneumatosis with mild wall thickening of the stomach with questionable minimal residual pneumatosis of the second and third part of the duodenum. There is noted 3 flow of the ingested oral contrast on the ileocecal junction with no evidence of contrast leak. There are slightly dilated small bowel loops measuring 3.3 cm with no definite transition point which may suggest an element of ileus. There is some diffuse bowel thickening of the diana nonspecific and fluid-filled colon with thickened wall that may suggest colitis. Also some moderate amount of free abdominal and pelvic fluid with peritoneal fat stranding and most probably related to postoperative changes although peritonitis cannot be excluded. There is a 2.8 cm gallbladder stone with no gallbladder wall thickening or gross signs of acute cholecystitis with no definite intrahepatic focal lesions identified. And there is some bilateral nasal pleural effusions and subsegmental pulmonary atelectasis demonstrating air bronchogram within. Patient is not currently on antibiotics and patient is afebrile. WBC is 8.4, hemoglobin is 7.9, BMP is noted and magnesium is 2.4, triglycerides found to be elevated at 256. Multiple medical consultations following and will continue to follow closely. All intake of fluids have been decreased to 70 mL per hour including TPN. Recommend follow-up chest x-ray in the morning. Nursing staff reports to a bowel movement yesterday although none today. 11/08/2021 Patient continues to be in the ICU being closely monitored. Patient to continue with NG tube as patient continues to have large amounts of output noted in the container. Patient did have a bowel movement yesterday along with today per nursing staff. Patient having some low-grade temps with T-max 101.5 and IV antibiotics in the form of Zosyn have been resumed. Patient continues on TPN and is currently nothing by mouth with NG tube continued. Patient currently receiving chest physiotherapy for continued secretions noted that patient is unable to expectorate. Would encourage incentive spirometer although patient is unable to perform. Duo nebs and updrafts also ordered. Recommend blood, sputum, and urine cultures which are currently pending. Recommend repeat labs. Chest x-ray is ordered. 11/11/2021 This is a patient who has had prolonged hospitalization secondary to ischemic bowel and sepsis and has undergone gastrectomy. Patient was recently transferred out of the ICU to the [facility] unit and had become more lethargic and unresponsive patient was found unresponsive and foaming at the mouth and a code was called. Case was discussed with ICU and patient being brought back to the ICU. Patient's CODE STATUS was addressed with family per nursing staff and brother is okay with intubating the patient. Patient's CODE STATUS is no code. Patient was placed on BiPAP although continued to progress and worsen and patient is currently being intubated by pulmonary mannequin wig maker. Patient family also agreeable to pressor support and continuing current medications, per nursing just does not want CPR initiated. Chest x-ray this morning shows increased interstitial densities and increased small left pleural effusion now with more pronounced airspace disease in the retrocardiac region of the left base and correlate for pneumonia and developing pulmonary vascular congestion. Magnesium also low at 1.4 and being replaced. 11/12/2021 Patient is seen in follow-up continues to be closely monitored in the ICU continued under mechanical ventilation and is sedated. Multiple medical consultations including general surgery. Chest x-ray today shows bilateral infiltrates greater on the left with small left effusion correlate for interstitial pneumonitis versus congestion otherwise findings are stable. Patient is continued on IV antibiotics and awaiting for bronchial washings to finalize. Blood cultures have been negative. Patient continues to have low- grade intermittent temps and continues to be tachypneic. FiO2 is currently 40% with a PEEP of 5. No plans for extubation today. Per nursing staff there continues to be large amounts of output noted in the NG and appear maroon- colored in nature and again general surgery is following. Patient has not had any reported bowel movements per nursing staff since 11/08/2021. There are positive bowel sounds noted on exam and abdomen is soft. Patient underwent CT abdomen yesterday showing pleural effusions with extensive lower lobe pulmonary consolidation and atelectasis similar to old exam with abdominal ascites fluid slightly improved compared to last exam and there is evidence of mild small bowel ileus with no free air and cholelithiasis noted. There is subcutaneous emphysema which is mild around the abdomen and pelvis which is improved compared to last exam as well. 11/13/2021 Patient continues in the ICU in critical condition. Patient was brought back to surgery last night and is status post exploratory laparotomy, drainage of upper abdominal abscess, lysis of adhesions and small bowel resection. Patient continues with TPN and is NPO. Patient continues on mechanical vent with an FI02 of 40% and peep of 5. 2JP drains noted with bilious and serosanguineous fluid and [employer] D[employer]ER noted with dark maroon colored drainage. Per nursing staff NG output has decreased. No bowel movements reported. Patient continues on Levophed as well. IV antibiotics as patient continues to be febrile. Review of systems: Unable to obtain as patient is currently placed back on sedation and intubated Active Medications Albuterol/Ipratropium (Ipratropium-Albuterol 3 Ml Neb) 3 ml INHALATION RT-TID [facility] Last Admin: 11/13/21 19:38 Dose: 3 ml Documented by: Chlorhexidine Gluconate (Chlorhexidine Gluconate 15 Ml Cup) 15 ml MUCOUS MEM BID [facility] Last Admin: 11/13/21 08:25 Dose: 15 ml Documented by: Enoxaparin Sodium (Enoxaparin 40 Mg/0.4 Ml Syringe) 40 mg SQ DAILY [facility] Last Admin: 11/13/21 08:26 Dose: 40 mg Documented by: Hydromorphone HCl (Hydromorphone 0.5 Mg/0.5 Ml Syringe) 0.5 mg IVP Q3HR PRN PRN Reason: Pain Last Admin: 11/13/21 17:28 Dose: 0.5 mg Documented by: Piperacillin Sod/Tazobactam (Sod 3.375 gm/ Sodium Chloride) 100 mls @ 25 mls/hr IVPB Q8HR [facility]; Protocol Last Admin: 11/13/21 16:42 Dose: 25 mls/hr Documented by: Propofol 1,000 mg/ IV Solution 100 mls @ 9.684 mls/hr IV .[id number] [facility]; Protocol Last Admin: 11/13/21 16:42 Dose: 50 mcg/kg/min, 24.21 mls/hr Documented by: Sodium Chloride (Saline 0.9%) 1,000 mls @ 150 mls/hr IV .Q6H40M [facility] Last Admin: 11/13/21 18:36 Dose: 150 mls/hr Documented by: Norepinephrine Bitartrate 8 mg (/ Sodium Chloride) 258 mls @ 7.808 mls/hr IV .Q24H [facility]; Protocol Last Titration: 11/13/21 17:00 Dose: 0 mcg/kg/min, 0 mls/hr Documented by: Acetaminophen 1,000 mg/ IV (Solution) 100 mls @ 400 mls/hr IVPB Q6HR PRN PRN Reason: Fever and/ or Pain Stop: 11/15/21 22:01 Last Admin: 11/13/21 12:10 Dose: 400 mls/hr Documented by: Potassium Acetate 40 meq/Calcium Gluconate 1 gm/Potassium Phosphate 6 mmol/Amino Acids/Dextrose 1,032 mls @ 70 mls/hr IV .BY DURATION [facility] Last Admin: 11/13/21 10:57 Dose: 70 mls/hr Documented by: Parenteral Vitamin Supplement 10 ml/ Zinc/Copper/Manganese/Selenium 1 ml/ Potassium Acetate 40 meq/ Calcium Gluconate 1 gm/ Potassium Phosphate 6 mmol/ Amino Acids/Dextrose 1,043 mls @ 70 mls/hr IV .BY DURATION [facility] Last Admin: 11/12/21 20:33 Dose: 70 mls/hr Documented by: Vancomycin HCl 1,500 mg/ (Sodium Chloride) 250 mls @ 125 mls/hr IVPB Q12HR [facility] Last Admin: 11/13/21 09:46 Dose: 125 mls/hr Documented by: Insulin Aspart (Insulin Aspart (Novolog) 100 Unit/Ml Vial) 0 unit SQ Q6HR [facility]; Protocol Last Admin: 11/13/21 18:34 Dose: 1 unit Documented by: Metoclopramide HCl (Metoclopramide 5 Mg/Ml 2 Ml Vial) 10 mg IVP Q6H [facility] Last Admin: 11/13/21 15:27 Dose: 10 mg Documented by: Miscellaneous Information (Potassium Replacement Protocol 1 Each Misc) 1 each MISCELLANE DAILY PRN; Protocol PRN Reason: Per Protocol Miscellaneous Information (Magnesium Replacement Protocol 1 Each Misc) 1 each MISCELLANE DAILY PRN; Protocol PRN Reason: Per Protocol Miscellaneous Information (Vancomycin Trough Due 1 Each Misc) 0 each MISCELLANE DIRECTED ONE Stop: 11/14/21 08:01 Nystatin (Nystatin 100,000 Unit/Gm Powd 15 Gm) 1 applic TOPICAL DAILY PRN; Protocol PRN Reason: Rash Ondansetron HCl (Ondansetron 4 Mg/2 Ml Vial) 4 mg IVP Q8HR PRN PRN Reason: Nausea And Vomiting Last Admin: 10/30/21 09:30 Dose: 4 mg Documented by: Pantoprazole Sodium (Pantoprazole 40 Mg/10 Ml Vial) 40 mg IVP BID [facility] Last Admin: 11/13/21 08:16 Dose: 40 mg Documented by: PHYSICAL EXAMINATION: GENERAL: Patient is 51-year-old male who is autistic and currently sedated and intubated at this time HEENT: Pupils are round and equally reacting to light. EOMI. No scleral icterus. No conjunctival pallor. Normocephalic, atraumatic. No pharyngeal erythema. No thyromegaly. CARDIOVASCULAR: S1 and S2 muffled PULMONARY: Diminished breath sounds bilaterally with some scattered crackles and rhonchi noted ABDOMEN: absent Bowel sounds noted on exam, abdominal binder and surgical dressing MUSCULOSKELETAL: No joint swelling or deformity. EXTREMITIES: No cyanosis, clubbing, generalized peripheral edema noted. NEUROLOGICAL: unable to assess as patient is intubated and sedated SKIN: No rashes. Assessment: -Sepsis, present on admission secondary to ischemia of the lateral portion of the stomach and mild ischemia of the proximal jejunum -Post operative partial gastrectomy for ischemic stomach and also had ischemic ileum. -Acute hypoxic respiratory failure secondary to possible aspiration with acute left lower lobe pneumonia, requiring mechanical ventilator -Pneumoperitoneum, suspected gastric leak and section of proximal jejunum with ischemic changes status post exploratory laparotomy, drainage of upper abdominal abscess, lysis of adhesions and small bowel resection on 11/12/2021. -Septic shock status postoperatively -Anion gap metabolic acidosis secondary to lactic acidosis which improved, acidosis secondary to hyperchloremia -Acute renal failure secondary to acute blood loss from septic shock -History of CVA TIA -History diabetes mellitus type 2, uncontrolled -History of hypertension -History of autism -History of intellectual impairment -GI Prophylaxis Protonix -DVT Prophylaxis Subcu heparin -NO CODE Plan: Recommend to continue with ICU management and close monitoring. Patient was brought back to the OR with surgery last night and found with pneumoperitoneum, suspected gastric leak and section of proximal jejunum with ischemic changes status post exploratory laparotomy, drainage of upper abdominal abscess, lysis of adhesions and small bowel resection. Patient is requiring pressor support and levophed infusing. Patient continues with temps as well. FiO2 is currently 40% with a PEEP of 5. Patient continues to be in critical condition with guarded prognosis. Recommend repeat labs and continue with ICU monitoring at this time. Overall prognosis is extremely guarded. The impression and plan of care has been dictated by Rozina Nam, nurse practitioner as directed. Dr. Christina MD I have performed a history and physical examination and MDM of this patient, discussed the same with the dictator, and agree with the dictator's assessment and plan as written ,documented as a scribe. Based on total visit time, I have performed more than 50% of the visit. . Objective - Vital Signs Vital signs: Vital Signs Temp 102.7 F H 11/13/21 08:00 Pulse 102 H 11/13/21 08:04 Resp 37 H 11/13/21 08:00 BP 113/62 11/13/21 05:45 Pulse Ox 97 11/13/21 08:00 Intake & Output 11/12/21 11/13/21 11/13/21 18:59 06:59 18:59 Intake Total 3817.321 3790.569 242.305 Output Total 2575 1915 60 Balance 5582.842 9090.569 182.305 Weight 82.7 kg 87 kg Intake: IV 3023 920 220 Piperacillin-Tazobactam 3 200 .375 gm In Sodium Chloride 0.9% 100 ml @ 25 mls/hr IVPB Q8HR [facility] Rx# :[id number] Sodium Chloride 0.9% , 1983 150 000 ml @ 20 mls/hr IV . Q24H [facility] Rx#:[id number] TPN/MVI 840 770 70 Intake, IV Titration 406.508 5242.569 22.305 Amount Norepinephrine 8 mg In 193.276 85.887 22.305 Sodium Chloride 0.9% 250 ml @ 0.05 MCG/KG/MIN 7. 808 mls/hr IV .Q24H [facility] Rx#:[id number] Sodium Chloride 0.9% 2, 2000 000 ml @ 999 mls/hr IV . Q2H1M [facility] Rx#:[id number] Vancomycin 1,500 mg In 250 Sodium Chloride 0.9% 250 ml @ 125 mls/hr IVPB Q12HR [facility] Rx#:[id number] Vancomycin 1,500 mg In 250 Sodium Chloride 0.9% 250 ml @ 125 mls/hr IVPB Q16H [facility] Rx#:[id number] propofoL 1,000 mg In 351.045 224.682 Empty Bag 1 bag @ 20 MCG/ KG/MIN 9.684 mls/hr IV . [id number] [facility] Rx#:[id number] Blood Product 310 Rc As-1 Unit 310 [id number] Output: Gastric Drainage 1550 750 Urine 1025 1115 60 Estimated Blood Loss 50 Other: Voiding Method Indwelling Catheter Indwelling Catheter ABP, PAP, CO, CI - Last Documented Arterial Blood Pressure 93/49 - Labs CBC & Chem 7: 11/13/21 07:42 11/13/21 05:10 Labs: Abnormal Lab Results - Last 24 Hours (Table) 11/11/21 11/12/21 11/12/21 Range/Units 19:05 11:58 17:24 WBC (3.8-10.6) k/uL RBC (4.30-5.90) m/uL Hgb (13.0-17.5) gm/dL Hct (39.0-53.0) % MCHC (31.0-37.0) g/dL RDW (11.5-15.5) % Plt Count (150-450) k/uL Neutrophils # (Manual) (1.3-7.7) k/uL Lymphocytes # (Manual) (1.0-4.8) k/uL Monocytes # (Manual) (0-1.0) k/uL Metamyelocytes # (Man) (0) k/uL Myelocytes # (Manual) (0) k/uL Nucleated RBCs (0-0) /100 WBC ABG pH (7.35-7.45) ABG pCO2 (35-45) mmHg ABG pO2 (83-108) mmHg ABG HCO3 (21-25) mmol/L ABG Total CO2 (19-24) mmol/L ABG O2 Saturation (94-97) % Chloride (98-107) mmol/L Carbon Dioxide (22-30) mmol/L BUN (9-20) mg/dL Glucose (74-99) mg/dL POC Glucose (mg/dL) 153 H 135 H (75-99) mg/dL Calcium (8.4-10.2) mg/dL Crossmatch See Detail 11/12/21 11/12/21 11/13/21 Range/Units 19:52 23:57 00:45 WBC 14.8 H 17.4 H (3.8-10.6) k/uL RBC 2.35 L 3.17 L (4.30-5.90) m/uL Hgb 6.2 L* 8.2 L D (13.0-17.5) gm/dL Hct 20.2 L 28.0 L (39.0-53.0) % MCHC 30.8 L 29.4 L (31.0-37.0) g/dL RDW 18.2 H 18.1 H (11.5-15.5) % Plt Count 572 H 702 H (150-450) k/uL Neutrophils # (Manual) 15.10 H (1.3-7.7) k/uL Lymphocytes # (Manual) (1.0-4.8) k/uL Monocytes # (Manual) (0-1.0) k/uL Metamyelocytes # (Man) 0.70 H (0) k/uL Myelocytes # (Manual) 0.17 H (0) k/uL Nucleated RBCs (0-0) /100 WBC ABG pH (7.35-7.45) ABG pCO2 (35-45) mmHg ABG pO2 (83-108) mmHg ABG HCO3 (21-25) mmol/L ABG Total CO2 (19-24) mmol/L ABG O2 Saturation (94-97) % Chloride (98-107) mmol/L Carbon Dioxide (22-30) mmol/L BUN (9-20) mg/dL Glucose (74-99) mg/dL POC Glucose (mg/dL) 209 H (75-99) mg/dL Calcium (8.4-10.2) mg/dL Crossmatch 11/13/21 11/13/21 11/13/21 Range/Units 05:10 05:34 05:49 WBC (3.8-10.6) k/uL RBC (4.30-5.90) m/uL Hgb (13.0-17.5) gm/dL Hct (39.0-53.0) % MCHC (31.0-37.0) g/dL RDW (11.5-15.5) % Plt Count (150-450) k/uL Neutrophils # (Manual) (1.3-7.7) k/uL Lymphocytes # (Manual) (1.0-4.8) k/uL Monocytes # (Manual) (0-1.0) k/uL Metamyelocytes # (Man) (0) k/uL Myelocytes # (Manual) (0) k/uL Nucleated RBCs (0-0) /100 WBC ABG pH 7.33 L (7.35-7.45) ABG pCO2 33 L (35-45) mmHg ABG pO2 130 H (83-108) mmHg ABG HCO3 17 L (21-25) mmol/L ABG Total CO2 18 L (19-24) mmol/L ABG O2 Saturation 98.4 H (94-97) % Chloride 120 H (98-107) mmol/L Carbon Dioxide 17 L (22-30) mmol/L BUN 29 H (9-20) mg/dL Glucose 154 H (74-99) mg/dL POC Glucose (mg/dL) 155 H (75-99) mg/dL Calcium 7.6 L (8.4-10.2) mg/dL Crossmatch 11/13/21 Range/Units 07:42 WBC 20.4 H (3.8-10.6) k/uL RBC 3.35 L (4.30-5.90) m/uL Hgb 9.0 L (13.0-17.5) gm/dL Hct 29.1 L (39.0-53.0) % MCHC 30.9 L (31.0-37.0) g/dL RDW 17.9 H (11.5-15.5) % Plt Count 782 H (150-450) k/uL Neutrophils # (Manual) 17.10 H (1.3-7.7) k/uL Lymphocytes # (Manual) 0.61 L (1.0-4.8) k/uL Monocytes # (Manual) 1.02 H (0-1.0) k/uL Metamyelocytes # (Man) 0.82 H (0) k/uL Myelocytes # (Manual) 0.61 H (0) k/uL Nucleated RBCs 2 H (0-0) /100 WBC ABG pH (7.35-7.45) ABG pCO2 (35-45) mmHg ABG pO2 (83-108) mmHg ABG HCO3 (21-25) mmol/L ABG Total CO2 (19-24) mmol/L ABG O2 Saturation (94-97) % Chloride (98-107) mmol/L Carbon Dioxide (22-30) mmol/L BUN (9-20) mg/dL Glucose (74-99) mg/dL POC Glucose (mg/dL) (75-99) mg/dL Calcium (8.4-10.2) mg/dL Crossmatch Microbiology - Last 24 Hours (Table) 11/11/21 12:30 Acid Fast Bacilli Smear - Final Bronchial Washings - Random Acid Fast Bacilli Culture - Preliminary 11/11/21 12:00 Acid Fast Bacilli Smear - Final Bronchial Washings - Random Acid Fast Bacilli Culture - Preliminary 11/10/21 18:03 Blood Culture - Preliminary Blood No Growth after 48 hours 11/11/21 12:00 Gram Stain - Preliminary Bronchoalviolar Lavage - Left Bronchial Washings Culture - Preliminary 11/08/21 09:54 Blood Culture - Preliminary Blood No Growth after 96 hours
[2021-11-13 23:21] LABS: Glucose,Whole Blood 143 mg/dL (75-99)
[2021-11-14] MEDS: SODIUM CHLORIDE 0.9% 1,000 ML IV SCH ×2 (00:12→06:01)
[2021-11-14] MEDS: [UNRECOGNIZED DRUG - OTHER] IV SCH ×6 (00:44)
[2021-11-14] MEDS: CALCIUM GLUCONATE IV SCH ×11 (00:44→15:14)
[2021-11-14] MEDS: POTASSIUM PHOSPHATE IV SCH ×6 (00:44)
[2021-11-14] MEDS: POTASSIUM ACETATE IV SCH ×11 (00:44→15:14)
[2021-11-14] MEDS: METOCLOPRAMIDE 5 MG/ML 2 ML VIAL IVP SCH ×4 (01:32→19:45)
[2021-11-14] MEDS: HYDROmorphone 0.5 MG/0.5 ML SYRINGE IVP PRN ×2 (01:35→06:12)
[2021-11-14 04:18] LABS: Anisocytosis Slight; HCT 22.1 % (39.0-53.0); Hypochromasia Marked; MCH 26.6 pg (25.0-35.0); MCHC 30.4 g/dL (31.0-37.0); MCV 87.7 fL (80.0-100.0); Mean Platelet Volume 8.7; Platelet Count 596 k/uL (150-450); Poikilocytosis Slight; RBC 2.53 m/uL (4.30-5.90)
[2021-11-14 04:33] LABS: HGB 6.7 gm/dL (13.0-17.5)
[2021-11-14 05:02] LABS: Band Neutrophils % 33 %; Lymphocytes # (M) 2.53 k/uL (1.0-4.8); Metamyelocytes # (M) 0.42 k/uL (0); Metamyelocytes % 2 %; Monocytes # (M) 1.48 k/uL (0-1.0); Myelocytes # (M) 0.63 k/uL (0); Myelocytes % 3 %; Neutrophils % (M) 43 %; Nucleated Red Blood Cells 2 /100 WBC (0-0); Total Cells Counted 200; WBC 21.1 k/uL (3.8-10.6)
[2021-11-14 05:03] LABS: Anisocytosis (M) Present; Poikilocytosis (M) Present; Polychromasia Present
[2021-11-14 05:44] LABS: ABG Base Excess -12.2 mmol/L; ABG HCO3 15 mmol/L (21-25); ABG Oxygen Saturation 98.9 % (94-97); ABG PCO2 34 mmHg (35-45); ABG PH 7.25 (7.35-7.45); ABG PO2 132 mmHg (83-108); ABG TCO2 16 mmol/L (19-24)
[2021-11-14 05:45] LABS: Allen Test Performed? no
[2021-11-14 05:51] LABS: Glucose,Whole Blood 170 mg/dL (75-99)
[2021-11-14] MEDS: INSULIN ASPART (NovoLOG) 100 UNIT/ML VIAL SQ SCH ×3 (05:59→18:12)
[2021-11-14] MEDS: IPRATROPIUM-ALBUTEROL 3 ML NEB INHALATION SCH ×3 (07:21→20:45)
[2021-11-14] MEDS ORDERED: VANCOMYCIN TROUGH DUE 1 EACH MISC MISCELLANE ONE (08:00)
[2021-11-14] MEDS: CHLORHEXIDINE GLUCONATE 15 ML CUP MUCOUS MEM SCH ×2 (08:19→19:59)
[2021-11-14] MEDS: PIPERACILLIN-TAZOBACTAM 3.375 GM in SODIUM CHLORIDE 0.9% 100 ML IVPB SCH ×2 (08:19→15:39)
[2021-11-14] MEDS: PANTOPRAZOLE 40 MG/10 ML VIAL IVP SCH ×2 (08:19→19:59)
[2021-11-14 08:39] LABS: Anisocytosis Slight; Hypochromasia Marked; MCH 25.5 pg (25.0-35.0); MCHC 29.3 g/dL (31.0-37.0); MCV 86.7 fL (80.0-100.0); Mean Platelet Volume 8.8; Platelet Count 644 k/uL (150-450); Poikilocytosis Moderate; RBC 2.54 m/uL (4.30-5.90); RDW 18.4 % (11.5-15.5); WBC 21.3 k/uL (3.8-10.6)
[2021-11-14 08:46] LABS: HGB 6.5 gm/dL (13.0-17.5)
--- NOTE | 2021-11-14 08:59 | XR ---
EXAMINATION TYPE: XR chest 1V portable DATE OF EXAM: 11/14/2021 COMPARISON: Chest x-ray 11/13/2021 HISTORY: Intubated TECHNIQUE: Single frontal view of the chest is obtained. FINDINGS: Endotracheal tube, NG tube, right jugular central venous catheter are overlying appropriat e positions similar to prior exam. No evident pneumothorax. Bibasilar density persists. Cardiac media stinal silhouette is likely stable accounting for differences in technique. There are overlying leads . IMPRESSION: Possible basilar effusions and associated atelectasis versus pneumonia.
[2021-11-14] MEDS: ENOXAPARIN 40 MG/0.4 ML SYRINGE SQ SCH (09:28)
[2021-11-14] MEDS: VANCOMYCIN 1,500 MG in SODIUM CHLORIDE 0.9% 250 ML IVPB SCH ×2 (09:29→19:59)
[2021-11-14 09:44] LABS: Albumin 1.6 g/dL (3.5-5.0); Calcium 7.7 mg/dL (8.4-10.2); Magnesium 2.1 mg/dL (1.6-2.3); Phosphorus 4.6 mg/dL (2.5-4.5); Total Protein 4.7 g/dL (6.3-8.2)
[2021-11-14] MEDS: DEXTROSE 5% IN WATER 1,000 ML with SODIUM BICARB (1 MEQ/ML) 150 ML IV SCH ×2 (11:24→22:44)
[2021-11-14] MEDS: FLUCONAZOLE IN NACL,ISO-OSM 400 MG in SALINE 1 200ML.BAG IVPB SCH (11:24)
[2021-11-14 11:46] LABS: Glucose,Whole Blood 151 mg/dL (75-99)
--- NOTE | 2021-11-14 13:10 | P.PN ---
Subjective Progress Note Date: 11/14/21 CHIEF COMPLAINT: Abdominal pain HISTORY OF PRESENT ILLNESS: Patient remains in the ICU and intubated. Patient did have a drop in his hemoglobin from 9-6.5. He is receiving a unit of blood today. He was able to come off of the Levophed this morning. He did have a temperature yesterday of 102 this morning low-grade temp 99.3. He has had high output through his left EBONY drain of 1300 mL of bile in a 12 hour period. EBONY drain on the right 20 mL of serosanguineous output. NG tube with bile and blood tinged 200 mL output in a 24-hour period. Patient is postop day #1 status post exploratory laparotomy, drainage of upper abdominal abscess, lysis of adhesions and small bowel resection for pneumoperitoneum, suspected gastric leak and section of proximal jejunum with ischemic changes. PHYSICAL EXAM: VITAL SIGNS: Reviewed. GENERAL: Intubated HEENT: Moist buccal mucosa. Head is atraumatic, normocephalic. ABDOMEN: Soft. Mildly distended. Incision site is open dressing has some small amount of serosanguineous drainage noted. Patient has retention sutures in place. ASSESSMENT: 1. Pneumoperitoneum, suspected gastric leak and section of proximal jejunum with ischemic changes status post exploratory laparotomy, drainage of upper abdominal abscess, lysis of adhesions and small bowel resection. Postop day #1 2. Ischemia of the lateral portion of the stomach and mild ischemia of the proximal jejunum status post exploratory laparotomy and partial gastrectomy on 10/30/21 3. Septic shock 4. Postoperative ileus 5. Thrombocytopenia resolved 6. Pneumonia 7. Anemia PLAN: -Continue ICU management -Continue supportive care -1 unit of packed red blood cells ordered for hgb 6.5 -Continue IV fluids -Continue NG tube for decompression -Continue to monitor EBONY drain output -Keep patient nothing by mouth -Continue antibiotics -Continue Reglan for ileus -Continue TPN for nutrition support -CODE STATUS DO NOT RESUSCITATE -DVT prophylaxis Lovenox -Dr. Toussaint did discuss with patient's brother that the patient's overall condition is poor and guarded and that he did recommend comfort care. Patient's brother wants to think about it before making a final decision regarding comfort care. Physician General I Farmworker note has been reviewed by physician. Signing provider agrees with the documented findings, assessment, and plan of care. I have personally seen and examined the patient, reviewed the INDIRECT SALES REPRESENTATIVE /PAs history, exam and MDM and agree with the assessment and plan as written. Based on total visit time, I have performed more than 50% of the visit. As above: Patient had significant bilious output from the left EBONY drain last night. Over 1 L. The drain was actually hooked up to wall suction. Nasogastric tube remains bilious as well. Labs as noted. Discuss case with Dr. Toussaint and also with the family at the bedside. The patient's family are now considering possible withdrawal of care. Certainly the volume of bilious drainage from the EBONY drain suggests a worse prognosis. They plan to consider this overnight tonight and make further decisions tomorrow. Continue supportive care for now. Objective - Vital Signs Vital signs: Vital Signs Temp 98.2 F 11/14/21 11:55 Pulse 100 11/14/21 11:55 Resp 31 H 11/14/21 11:55 BP 131/71 11/14/21 11:55 Pulse Ox 100 11/14/21 11:55 Intake & Output 11/13/21 11/14/21 11/14/21 18:59 06:59 18:59 Intake Total 3346.929 3244.669 186.936 Output Total 1230 2395 Balance 2116.929 849.669 186.936 Weight 88.4 kg Intake: IV 2895 1960 OMFIRMEV 100 Piperacillin-Tazobactam 3 125 .375 gm In Sodium Chloride 0.9% 100 ml @ 25 mls/hr IVPB Q8HR [facility]ERTO Rx# :[id number] Sodium Chloride 0.9% 1, 1050 000 ml @ 150 mls/hr IV . Q6H40M ROBERTO Rx#:[id number] Sodium Chloride 0.9% 1, 1650 000 ml @ 20 mls/hr IV . Q24H [facility]ERTO Rx#:[id number] TPN/MVI 770 910 Vancomycin 250 Intake, IV Titration 189.261 1336.669 186.936 Amount Norepinephrine 8 mg In 251.929 38.261 11.817 Sodium Chloride 0.9% 250 ml @ 0.05 MCG/KG/MIN 7. 808 mls/hr IV .Q24H ROBERTO Rx#:[id number] Potassium Acetate 40 meq 964.833 Calcium Gluconate 1 gm Potassium Phosphate 6 mmol In Amino Acids 5 %/ Dextrose 20 % 1,000 ml @ 70 mls/hr IV .BY DURATION ROBERTO Rx#:[id number] propofoL 1,000 mg In 200 281.575 175.119 Empty Bag 1 bag @ 20 MCG/ KG/MIN 9.684 mls/hr IV . [id number] [facility]ERTO Rx#:[id number] Blood Product 0 Rc Pheresis 2 As3 Unit 0 [id number] Output: Drainage 710 1400 Left Abdomen 670 1380 Right Abdomen 40 20 Urine 520 995 Other: Voiding Method Indwelling Catheter Indwelling Catheter ABP, PAP, CO, CI - Last Documented Arterial Blood Pressure 102/51 - Labs CBC & Chem 7: 11/14/21 08:11 11/14/21 08:11 Labs: Abnormal Lab Results - Last 24 Hours (Table) 11/11/21 11/13/21 11/13/21 Range/Units 19:05 05:10 18:28 WBC (3.8-10.6) k/uL RBC (4.30-5.90) m/uL Hgb (13.0-17.5) gm/dL Hct (39.0-53.0) % MCHC (31.0-37.0) g/dL RDW (11.5-15.5) % Plt Count (150-450) k/uL Neutrophils # (Manual) (1.3-7.7) k/uL Monocytes # (Manual) (0-1.0) k/uL Metamyelocytes # (Man) (0) k/uL Myelocytes # (Manual) (0) k/uL Nucleated RBCs (0-0) /100 WBC ABG pH (7.35-7.45) ABG pCO2 (35-45) mmHg ABG pO2 (83-108) mmHg ABG HCO3 (21-25) mmol/L ABG Total CO2 (19-24) mmol/L ABG O2 Saturation (94-97) % Chloride (98-107) mmol/L Carbon Dioxide (22-30) mmol/L BUN (9-20) mg/dL Glucose (74-99) mg/dL POC Glucose (mg/dL) 160 H (75-99) mg/dL Calcium (8.4-10.2) mg/dL Phosphorus (2.5-4.5) mg/dL Total Bilirubin (0.2-1.3) mg/dL Total Protein (6.3-8.2) g/dL Albumin (3.5-5.0) g/dL Procalcitonin 6.77 H (0.02-0.09) ng/mL Crossmatch See Detail 11/13/21 11/14/21 11/14/21 Range/Units 23:20 04:07 05:40 WBC 21.1 H (3.8-10.6) k/uL RBC 2.53 L (4.30-5.90) m/uL Hgb 6.7 L* D (13.0-17.5) gm/dL Hct 22.1 L (39.0-53.0) % MCHC 30.4 L (31.0-37.0) g/dL RDW 18.0 H (11.5-15.5) % Plt Count 596 H (150-450) k/uL Neutrophils # (Manual) 16.00 H (1.3-7.7) k/uL Monocytes # (Manual) 1.48 H (0-1.0) k/uL Metamyelocytes # (Man) 0.42 H (0) k/uL Myelocytes # (Manual) 0.63 H (0) k/uL Nucleated RBCs 2 H (0-0) /100 WBC ABG pH 7.25 L (7.35-7.45) ABG pCO2 34 L (35-45) mmHg ABG pO2 132 H (83-108) mmHg ABG HCO3 15 L (21-25) mmol/L ABG Total CO2 16 L (19-24) mmol/L ABG O2 Saturation 98.9 H (94-97) % Chloride (98-107) mmol/L Carbon Dioxide (22-30) mmol/L BUN (9-20) mg/dL Glucose (74-99) mg/dL POC Glucose (mg/dL) 143 H (75-99) mg/dL Calcium (8.4-10.2) mg/dL Phosphorus (2.5-4.5) mg/dL Total Bilirubin (0.2-1.3) mg/dL Total Protein (6.3-8.2) g/dL Albumin (3.5-5.0) g/dL Procalcitonin (0.02-0.09) ng/mL Crossmatch 11/14/21 11/14/21 11/14/21 Range/Units 05:50 08:11 08:11 WBC 21.3 H (3.8-10.6) k/uL RBC 2.54 L (4.30-5.90) m/uL Hgb 6.5 L* (13.0-17.5) gm/dL Hct 22.0 L (39.0-53.0) % MCHC 29.3 L (31.0-37.0) g/dL RDW 18.4 H (11.5-15.5) % Plt Count 644 H (150-450) k/uL Neutrophils # (Manual) (1.3-7.7) k/uL Monocytes # (Manual) (0-1.0) k/uL Metamyelocytes # (Man) (0) k/uL Myelocytes # (Manual) (0) k/uL Nucleated RBCs (0-0) /100 WBC ABG pH (7.35-7.45) ABG pCO2 (35-45) mmHg ABG pO2 (83-108) mmHg ABG HCO3 (21-25) mmol/L ABG Total CO2 (19-24) mmol/L ABG O2 Saturation (94-97) % Chloride 125 H (98-107) mmol/L Carbon Dioxide 14 L (22-30) mmol/L BUN 30 H (9-20) mg/dL Glucose 145 H (74-99) mg/dL POC Glucose (mg/dL) 170 H (75-99) mg/dL Calcium 7.7 L (8.4-10.2) mg/dL Phosphorus 4.6 H (2.5-4.5) mg/dL Total Bilirubin 2.0 H (0.2-1.3) mg/dL Total Protein 4.7 L (6.3-8.2) g/dL Albumin 1.6 L (3.5-5.0) g/dL Procalcitonin (0.02-0.09) ng/mL Crossmatch 11/14/21 Range/Units 11:45 WBC (3.8-10.6) k/uL RBC (4.30-5.90) m/uL Hgb (13.0-17.5) gm/dL Hct (39.0-53.0) % MCHC (31.0-37.0) g/dL RDW (11.5-15.5) % Plt Count (150-450) k/uL Neutrophils # (Manual) (1.3-7.7) k/uL Monocytes # (Manual) (0-1.0) k/uL Metamyelocytes # (Man) (0) k/uL Myelocytes # (Manual) (0) k/uL Nucleated RBCs (0-0) /100 WBC ABG pH (7.35-7.45) ABG pCO2 (35-45) mmHg ABG pO2 (83-108) mmHg ABG HCO3 (21-25) mmol/L ABG Total CO2 (19-24) mmol/L ABG O2 Saturation (94-97) % Chloride (98-107) mmol/L Carbon Dioxide (22-30) mmol/L BUN (9-20) mg/dL Glucose (74-99) mg/dL POC Glucose (mg/dL) 151 H (75-99) mg/dL Calcium (8.4-10.2) mg/dL Phosphorus (2.5-4.5) mg/dL Total Bilirubin (0.2-1.3) mg/dL Total Protein (6.3-8.2) g/dL Albumin (3.5-5.0) g/dL Procalcitonin (0.02-0.09) ng/mL Crossmatch Microbiology - Last 24 Hours (Table) 11/13/21 20:40 Body Fluid Culture - Preliminary Aspirate 11/08/21 09:54 Blood Culture - Final Blood No Growth after 144 hours 11/10/21 18:03 Blood Culture - Preliminary Blood No Growth after 72 hours 11/11/21 12:00 Gram Stain - Final Bronchoalviolar Lavage - Left Bronchial Washings Culture - Final [place] albicans 11/11/21 12:30 Gram Stain - Final Bronchial Washings - Random Bronchial Washings Culture - Final
[2021-11-14 13:24] LABS: Band Neutrophils % 5 %; Basophils # (M) 0.21 k/uL (0-0.2); Eosinophils # (M) 0.21 k/uL (0-0.7); Lymphocytes # (M) 1.07 k/uL (1.0-4.8); Metamyelocytes # (M) 1.07 k/uL (0); Metamyelocytes % 5 %; Monocytes # (M) 1.07 k/uL (0-1.0); Myelocytes # (M) 0.85 k/uL (0); Myelocytes % 4 %; Neutrophils % (M) 77 %; Nucleated Red Blood Cells 0 /100 WBC (0-0); Total Cells Counted 200
[2021-11-14 13:25] LABS: Polychromasia Present; Toxic Granulation Present
--- NOTE | 2021-11-14 14:12 | P.PN ---
Subjective Progress Note Date: 11/14/21 On the morning of 11/11/2021, the patient became acutely short of breath and the patient got transferred to the intensive care unit. The patient is known to me and I think in care of this patient last week as the patient had a extensive gastric surgery with partial gastrectomy , and the patient is postop day #12. The patient was taken to the operating room and the patient was found to have ischemia of the lateral portion of the stomach and mild/minimal ischemia of the proximal jejunum. The patient underwent a exploratory laparotomy and the patient underwent a partial gastrectomyand postop, the patient was treated for multisystem organ failure on his condition was stabilized and he got to point where the patient was extubated and he was transferred to a medical floor. Nevertheless, he was still maintained nothing by mouth. NG tube was still in place. The patient was receiving TPN for nutritional support. The patient was noted to be more lethargic yesterday. Overnight, the patient became unresponsive above and beyond his baseline knowing that he has baseline mental retardation. He was having also coarse breath sounds bilaterally and he was also found to be foaming at the mouth and he was having moderate degree of respiratory distress. Subsequently, he became more hypotensive, hypoxic and he was placed on a nonrebreather facemask and he was found to be febrile with tempe rature 103.2. At that point, the patient got transferred to the intensive care unit. Once in the ICU, the patient was placed On a BiPAP at a pressure of 14/6 cm of water with an FiO2 of 50%. His current meds ventilation is around 33. Respiratory rate is quite elevated at around above 50. He was hypotensive initially and he was given IV fluids total of 2 L of normal saline in the coming blood pressure is 108/69. His heart rate is sinus at the rate of 113. He is on a maintenance IV fluids with 0.9 and this will be increased to be related 150 mL an hour. Urine output is minimal at this point in time his blood work from this morning is showing an acute kidney injury in the creatinine is up to 1.49 with a BUN of 36 and the sodium level of 141. The white cell count is also elevated at 16.3. The incision over the abdomen looks dry clean and intact. Bowel sounds are hypoactive. NG tube is in place and it has drained approximately 400 mL since arrival to the intensive care unit. I was told that the angina but was quite elevated in order of 800 mL every 8 hours. On examination, the patient is unresponsive. He is not following any commands. His breathing is very much limited and he has coarse breath sounds on throughout the lung barkley bilaterally. He remains on IV Zosyn. He remains on TPN for nutritional support. His causes status is DO NOT RESUSCITATE/DO NOT INTUBATE. On 11/12/2021, the patient is intubated on a mechanical ventilator. Note that the patient is postop day #13 after his initial surgery which included a partial gastrectomy and this was done for an acute abdomen. At that time, the patient was found to have gastric ischemia/necrosis and he required extensive surgery for ischemia of the lateral portion of the stomach and ischemic changes in the proximal jejunum. In any rate, the patient got transferred to the ICU yesterday because of acute hypoxic respiratory failure, acute tachypnea, shortness of breath, and drop in urine output. Immediately, the patient was intubated and placed on a mechanical ventilator. Post intubation, the patient underwent a bronchoscopy which revealed copious amount of rest or secretions in the upper airway and in the lungs bilaterally more so on the left. At that point, bronchoscopy was done and therapeutic it was suctioning was done. The lavage was sent for cultures from the left lower lobe and the results are still pending for now. Meanwhile, the patient underwent a computed tomography scan of the c hest and abdomen and this was completed yesterday and based on the findings, the patient has evidence of bilateral pulmonary infiltrates most on the left lower lobe consistent with pneumonia. The patient also had some pleural effusion on the left. There was consolidation of the lung bases/atelectasis. There was abdominal ascites that had improved. There was evidence of mild small bowel ileus. There was also evidence of subcutaneous edema as expected. Case was discussed with general surgery. No role for any surgical intervention this point in time. Hemoglobin was low at 5.6.5 and the patient was given packed RBC transfusion 1. Morning hemoglobin is at 7.3. Meanwhile, the patient is sedated at and the patient is currently on propofol running at 50 mcg/kg per minute and the patient is on a mechanical ventilator. This morning, is on assist control of 28, tidal volume of 400, FiO2 of 50% with a PEEP of 5. Chest x-ray showing left lower lobe atelectasis/consolidation. Blood gas shows a pH of 7.34 with a pCO2 of 36 and pO2 of 163. NG tube is in place. Output is been in order of 500 mL over the past 8 hours. The output was somewhat bloody/blood- tinged. No ion blood. No blood clots. No coffee-ground material. Patient continues to be on TPN for nutritional support. Antibiotic coverage includes a combination of Zosyn and vancomycin was also added yesterday due to concern of an underlying staphylococcal superinfection. Note that the patient was febrile overnight and currently is afebrile. Creatinine is improving and creatinine is down to 1.17. The patient was resuscitated aggressively with IV fluids. He was given a total of 3 L of fluid yesterday. His creatinine is down to 1.1 and the BUN is down to 38. Serum bicarb is at 17 with a sodium level of 142. Current maintenance IV fluids in the form of normal saline at the rate of 150 mL an hour. Overall fluid balance since yesterday has been in the order of +5.9 L. The patient is not requiring any pressors for now. Blood pressure is improved. Urine output is also improved. 11/13/2021, I'm seeing the patient for a follow-up. Note that the patient had another surgical exploration yesterday. Upon review of his CAT scan of the abdomen, there was evidence of fluid collection and possible/questionable gastric leak and no paratonia. Case was discussed with a general surgeon. Case was discussed with the family. It was decided to take the patient back to the operating room for another exploration. The patient intraoperatively was found to have abdominal fluid/abscess that was drained. There was less of adhesion. Upon further inspection, a portion of the jejunum was ischemic and was resected. Estimated blood loss was around 100 mL. The patient was brought back to the ICU after surgical wound closure. For now, the patient is still on a mechanical ventilator. EBONY drain is in place and output has been in the order of 100 mL since his arrival from the operating room and this is essentially serosanguineous. Output from the NG tube has dropped since yesterday. Output is minimal at this point in time. The patient is sedated on propofol and currently propofol is running at 50 mcg/kg per minute. The patient is well sedated. He remains on a mechanical ventilator at assist control of 28, tidal volume of 400, FiO2 of 40% with a PEEP of 5. Blood gas shows a pH of 7.33 with a pCO2 of 33 and pO2 of 130. Chest x-ray showed improvement of bilateral pleural effusions and atelectatic changes in lung bases more so on the right. ET tube is in a good location. The patient also has an NG tube which is also in good location. Note that overnight, the patient was becoming progressively more hypotensive. I gave him a total of 3 L of IV fluid boluses and his overall fluid balance is positive at least 8 L over the past 24 hours. Meanwhile, the patient was also started on pressors. Currently is on norepinephrine running at 0.1 mcg/kg per minute. White cell count is up to 20.4 with a hemoglobin 0.0. His creatinine today is at 0.9 with a mean of 29 and a serum bicarbonate of 17 with a sodium level of 139. His antibiotic coverage remains a combination of Zosyn and vancomycin. The patient is also on TPN for nutritional support. Urine output is in order of 60 mL an hour. His CODE STATUS has been going back in 4 between full and no cords. For now, he is a no code with exception of mechanical ventilation. Noted the patient also received a unit of packed RBC pr eoperatively yesterday. At the same time, the patient is febrile and he is receiving IV Tylenol regarding his episodic fever. 11/14/2021, patient is being seen for a follow-up. Active issue for now as the excessive amount of drainage from the EBONY drain draining the gastric leak. Output has been in the order of 1300 mL over the past 12 hours. The second EBONY drain in the lower abdomen is draining minimal amounts. The patient is currently off pressors. The concern is ongoing gastric leak at this point in time. The patient is sedated on propofol and propofol is running at 50 mcg/kg per minute. The patient is on normal saline at the rate of 150s an hour the patient is also on TPN at the rate of 70 mL an hour. The patient remains on a mechanical ventilator. This morning, he is on assist control mode with a tidal volume of 400, rate of 28, FiO2 40% with a PEEP of 5. The blood gas shows a pH of 7.25 with a pCO2 of 34 and pO2 132. Chest x-ray showing atelectatic changes and infiltrates in lung bases. ET tube is in a good location. No free air under the diaphragm. Note that the patient is currently off the pressors. Meanwhile, the patient has a white cell count is currently at 21.3 with a hemoglobin of 6.5. The platelet counts at 644, the patient also has a BUN of 30 with a creatinine of 1.1, serum bicarb is at 14 and the patient has a non-anion gap metabolic acidosis with a potassium level of 5 and a sodium level of 141. Glucose level is at 151. LFTs are normal. The patient remains on a combination of Zosyn and vancomycin. Cultures from the bronchioloalveolar lavage was positive for Cortney albicans. Respiratory cultures are all negative. Body fluid cultures are still pending for now. The patient obviously is nothing by mouth. The patient on TPN for nutritional support. On no pressors for now. A order was given for another unit of packed RBC transfusion. Discussed the case with a general surgeon. Prognosis remains extremely poor baseline above-men tioned comorbidities. Objective - Vital Signs Vital signs: Vital Signs Temp 98.2 F 11/14/21 14:03 Pulse 98 11/14/21 14:03 Resp 32 H 11/14/21 14:03 BP 136/55 11/14/21 14:03 Pulse Ox 98 11/14/21 14:03 Intake & Output 11/13/21 11/14/21 11/14/21 18:59 06:59 18:59 Intake Total 3346.929 3244.669 471.936 Output Total 1230 2395 Balance 2116.929 849.669 471.936 Weight 88.4 kg 88.4 kg Intake: IV 2895 1960 OMFIRMEV 100 Piperacillin-Tazobactam 3 125 .375 gm In Sodium Chloride 0.9% 100 ml @ 25 mls/hr IVPB Q8HR [facility] Rx# :[id number] Sodium Chloride 0.9% 1, 1050 000 ml @ 150 mls/hr IV . Q6H40M [facility] Rx#:[id number] Sodium Chloride 0.9% 1, 1650 000 ml @ 20 mls/hr IV . Q24H [facility]O Rx#:[id number] TPN/MVI 770 910 Vancomycin 250 Intake, IV Titration 234.986 0829.669 186.936 Amount Norepinephrine 8 mg In 251.929 38.261 11.817 Sodium Chloride 0.9% 250 ml @ 0.05 MCG/KG/MIN 7. 808 mls/hr IV .Q24H [facility]O Rx#:[id number] Potassium Acetate 40 meq 964.833 Calcium Gluconate 1 gm Potassium Phosphate 6 mmol In Amino Acids 5 %/ Dextrose 20 % 1,000 ml @ 70 mls/hr IV .BY DURATION [facility]ERTO Rx#:[id number] propofoL 1,000 mg In 200 281.575 175.119 Empty Bag 1 bag @ 20 MCG/ KG/MIN 9.684 mls/hr IV . [id number] [facility]O Rx#:[id number] Blood Product 285 Rc Pheresis 2 As3 Unit 285 [id number] Output: Drainage 710 1400 Left Abdomen 670 1380 Right Abdomen 40 20 Urine 520 995 Other: Voiding Method Indwelling Catheter Indwelling Catheter ABP, PAP, CO, CI - Last Documented Arterial Blood Pressure 102/51 - Exam GENERAL: Patient is responsive, breathing is comfortable and the patient is currently sedated with propofol and his quite successful mechanical ventilator. No tachypnea. No use of excessive muscle breathing. NGgastric and orotracheal tube are both in place. Head exam was generally normal. There was no scleral icterus or corneal arcus. Mucous membranes were moist. HEENT: Pupils are round and equally reacting to light. EOMI. No scleral icterus. No conjunctival pallor. Normocephalic, atraumatic. No pharyngeal erythema. No thyromegaly. Orogastric and orotracheal tube are both in place. CARDIOVASCULAR: S1 and S2 present. No murmurs, rubs, or gallops. PULMONARY: Diffuse rhonchi heard throughout the lung barkley bilaterally. The patient has diminished breath on the left lung base. ABDOMEN: Absent bowel sounds and the surgical wound site over the mid abdomen is dry clean and intact. No direct tenderness. No rebound tenderness. No guarding. No organomegaly. The surgical wound site over the abdominal wall is dry clean and intact. NG tube is in place. Bowel sounds remain absent. The patient has a EBONY drain in her right lower abdomen drain minimal amount another EBONY drain in the left draining the stomach area and the area of gastric leak and output is around 1300 ML's over the past 12 hours. Patient also has an NG tube in place with some blood liquidy material in the order of 200 mL over the past 24 hours. MUSCULOSKELETAL: No joint swelling or deformity. EXTREMITIES: Extremities are cold and clammy and there are diminished pulses in all 4 extremities. No cyanosis. No clubbing. NEUROLOGICAL still somnolent and lethargic, not grimacing to deep painful stimulation. Not following commands and the patient is currently sedated with propofol. Examination of the skin revealed no evidence of significant rashes, suspicious appearing nevi or other concerning lesions. - Labs CBC & Chem 7: 11/14/21 08:11 11/14/21 08:11 Labs: Abnormal Lab Results - Last 24 Hours (Table) 11/11/21 11/13/21 11/13/21 Range/Units 19:05 05:10 18:28 WBC (3.8-10.6) k/uL RBC (4.30-5.90) m/uL Hgb (13.0-17.5) gm/dL Hct (39.0-53.0) % MCHC (31.0-37.0) g/dL RDW (11.5-15.5) % Plt Count (150-450) k/uL Neutrophils # (Manual) (1.3-7.7) k/uL Monocytes # (Manual) (0-1.0) k/uL Basophils # (Manual) (0-0.2) k/uL Metamyelocytes # (Man) (0) k/uL Myelocytes # (Manual) (0) k/uL Nucleated RBCs (0-0) /100 WBC ABG pH (7.35-7.45) ABG pCO2 (35-45) mmHg ABG pO2 (83-108) mmHg ABG HCO3 (21-25) mmol/L ABG Total CO2 (19-24) mmol/L ABG O2 Saturation (94-97) % Chloride (98-107) mmol/L Carbon Dioxide (22-30) mmol/L BUN (9-20) mg/dL Glucose (74-99) mg/dL POC Glucose (mg/dL) 160 H (75-99) mg/dL Calcium (8.4-10.2) mg/dL Phosphorus (2.5-4.5) mg/dL Total Bilirubin (0.2-1.3) mg/dL Total Protein (6.3-8.2) g/dL Albumin (3.5-5.0) g/dL Procalcitonin 6.77 H (0.02-0.09) ng/mL Crossmatch See Detail 11/13/21 11/14/21 11/14/21 Range/Units 23:20 04:07 05:40 WBC 21.1 H (3.8-10.6) k/uL RBC 2.53 L (4.30-5.90) m/uL Hgb 6.7 L* D (13.0-17.5) gm/dL Hct 22.1 L (39.0-53.0) % MCHC 30.4 L (31.0-37.0) g/dL RDW 18.0 H (11.5-15.5) % Plt Count 596 H (150-450) k/uL Neutrophils # (Manual) 16.00 H (1.3-7.7) k/uL Monocytes # (Manual) 1.48 H (0-1.0) k/uL Basophils # (Manual) (0-0.2) k/uL Metamyelocytes # (Man) 0.42 H (0) k/uL Myelocytes # (Manual) 0.63 H (0) k/uL Nucleated RBCs 2 H (0-0) /100 WBC ABG pH 7.25 L (7.35-7.45) ABG pCO2 34 L (35-45) mmHg ABG pO2 132 H (83-108) mmHg ABG HCO3 15 L (21-25) mmol/L ABG Total CO2 16 L (19-24) mmol/L ABG O2 Saturation 98.9 H (94-97) % Chloride (98-107) mmol/L Carbon Dioxide (22-30) mmol/L BUN (9-20) mg/dL Glucose (74-99) mg/dL POC Glucose (mg/dL) 143 H (75-99) mg/dL Calcium (8.4-10.2) mg/dL Phosphorus (2.5-4.5) mg/dL Total Bilirubin (0.2-1.3) mg/dL Total Protein (6.3-8.2) g/dL Albumin (3.5-5.0) g/dL Procalcitonin (0.02-0.09) ng/mL Crossmatch 11/14/21 11/14/21 11/14/21 Range/Units 05:50 08:11 08:11 WBC 21.3 H (3.8-10.6) k/uL RBC 2.54 L (4.30-5.90) m/uL Hgb 6.5 L* (13.0-17.5) gm/dL Hct 22.0 L (39.0-53.0) % MCHC 29.3 L (31.0-37.0) g/dL RDW 18.4 H (11.5-15.5) % Plt Count 644 H (150-450) k/uL Neutrophils # (Manual) 17.40 H (1.3-7.7) k/uL Monocytes # (Manual) 1.07 H (0-1.0) k/uL Basophils # (Manual) 0.21 H (0-0.2) k/uL Metamyelocytes # (Man) 1.07 H (0) k/uL Myelocytes # (Manual) 0.85 H (0) k/uL Nucleated RBCs (0-0) /100 WBC ABG pH (7.35-7.45) ABG pCO2 (35-45) mmHg ABG pO2 (83-108) mmHg ABG HCO3 (21-25) mmol/L ABG Total CO2 (19-24) mmol/L ABG O2 Saturation (94-97) % Chloride 125 H (98-107) mmol/L Carbon Dioxide 14 L (22-30) mmol/L BUN 30 H (9-20) mg/dL Glucose 145 H (74-99) mg/dL POC Glucose (mg/dL) 170 H (75-99) mg/dL Calcium 7.7 L (8.4-10.2) mg/dL Phosphorus 4.6 H (2.5-4.5) mg/dL Total Bilirubin 2.0 H (0.2-1.3) mg/dL Total Protein 4.7 L (6.3-8.2) g/dL Albumin 1.6 L (3.5-5.0) g/dL Procalcitonin (0.02-0.09) ng/mL Crossmatch 11/14/21 Range/Units 11:45 WBC (3.8-10.6) k/uL RBC (4.30-5.90) m/uL Hgb (13.0-17.5) gm/dL Hct (39.0-53.0) % MCHC (31.0-37.0) g/dL RDW (11.5-15.5) % Plt Count (150-450) k/uL Neutrophils # (Manual) (1.3-7.7) k/uL Monocytes # (Manual) (0-1.0) k/uL Basophils # (Manual) (0-0.2) k/uL Metamyelocytes # (Man) (0) k/uL Myelocytes # (Manual) (0) k/uL Nucleated RBCs (0-0) /100 WBC ABG pH (7.35-7.45) ABG pCO2 (35-45) mmHg ABG pO2 (83-108) mmHg ABG HCO3 (21-25) mmol/L ABG Total CO2 (19-24) mmol/L ABG O2 Saturation (94-97) % Chloride (98-107) mmol/L Carbon Dioxide (22-30) mmol/L BUN (9-20) mg/dL Glucose (74-99) mg/dL POC Glucose (mg/dL) 151 H (75-99) mg/dL Calcium (8.4-10.2) mg/dL Phosphorus (2.5-4.5) mg/dL Total Bilirubin (0.2-1.3) mg/dL Total Protein (6.3-8.2) g/dL Albumin (3.5-5.0) g/dL Procalcitonin (0.02-0.09) ng/mL Crossmatch Microbiology - Last 24 Hours (Table) 11/13/21 20:40 Body Fluid Culture - Preliminary Aspirate 11/08/21 09:54 Blood Culture - Final Blood No Growth after 144 hours 11/10/21 18:03 Blood Culture - Preliminary Blood No Growth after 72 hours 11/11/21 12:00 Gram Stain - Final Bronchoalviolar Lavage - Left Bronchial Washings Culture - Final Cortney albicans Assessment and Plan Plan: 1 partial gastrectomy as the patient was found to have ischemic anterior gastric wall with questionable small bowel ischemia. The patient underwent partial gastrectomy and the patient is postop day #15. Following that, CAT scan of the abdomen and chest was done and it showed pneumoperitoneum suspicious for gastric leak. Further investigation with another expiratory laparotomy that was done yesterday showed evidence of intra-abdominal abscesses that was drained and the patient was found to have ischemic small bowel, involving the jejunum that was resected surgically. Patient is postop day #2 following exploratory laparotomy, lysis of adhesions and partial small bowel resection. This morning, the patient is having increased output from the left-sided EBONY draining the area of gastric leak. I performed a right sided EBONY is minimal at this point in time. Patient remains nothing by mouth. NG tube is in place. Patient remains on TPN for discussion support. The patient is on broad-spectrum antibiotics. Care is a very poor prognosis. Surgical wound site is dry clean and intact. There is a retention suture. 2 acute pneumonia with left lower lobe consolidation/atelectasis and copious amount of rest or secretions post bronchoscopy and therapeutic it was suctioning and lavage of the left lower lobe. Cultures indicating Cortney albicans. No other microbial growth otherwise for now. 3 acute hypotension/septic shock, improved and the patient's blood pressure is normalized and the patient is currently off pressors 3 acute lactic acidosis, secondary to above, improved, lactic acid level was 3.8 yesterday and this morning is down to 1.5 4 acute kidney injury, improved in the creatinine is normalized 5 leukocytosis secondary to above 6 diabetes mellitus 7 hypertension 8 Developmental delay and autism 11 Acute blood loss anemia, expected outcome post gastric surgery and small bowel resection. The patient received a unit of packed RBC yesterday. The subsequent hemoglobin is at 6.5 and the patient is going to receive another unit of packed RBC 12 history of CVA events. No vent changes Plan Continue ventilator support , no changes Receiving normal saline and switch this patient to a bicarb infusion Continued IV Zosyn and vanco, and add Diflucan based on ongoing history of gastric leak The results of the BAL was possible Cortney albicans Continue TPN for nutritional support Continue norepinephrine as needed currently off pressors Check echocardiogram done on 10/29/2032 showed an ejection fraction of 60-65% Keep the patient nothing by mouth Monitor the white cell count, monitor the renal function DNR Transfuse with 1 unit of packed RBC Family will be arriving to the hospital. Possible end-of-life care based on his baseline developmental delay and mental retardation in addition to extensive comorbidities as mentioned above. We'll continue to follow. We'll support this case in the ICU, awaiting family to arrive. Critically care evaluation that was done more than 30 minutes Time with Patient: Greater than 30
--- NOTE | 2021-11-14 14:24 | P.PN ---
Subjective Progress Note Date: 11/14/21 Patient was admitted for nausea vomiting diarrhea believed to have gastroenteritis. Patient continued to have vomiting and started having abdominal tenderness because of which CT of the abdomen was obtained which showed pneumatosis coli along with some gas in the venous system concern for ischemic bowel. Patient was started on Zosyn. Patient subsequently decompensated patient became hypotensive with BP of 60/40 transferred to ICU patient was given 3 L of boluses of IV fluid NG tube was placed which showed bloody output . Patient in septic shock and receiving norepinephrine at this time. Recent echo showed normal ejection fraction. Patient had CTA of the chest which was negative for pulmonary embolism patient creatinine has worsened and went up to 2.80 today from 1.14 yesterday and this is secondary to acute tubular necrosis from sepsis and septic shock. Patient does have lactic acidosi s, patient does have lactic acidosis with lactic acidosis 7.5. Patient will be given 1 L of IV fluids continue pressor support. he is intubated and sedated. 10/31/2021 Patient is started having urine output. Patient underwent a arthrotomy yesterday and found to have ischemia of the lateral portion of the stomach and ischemia of the proximal jejunum patient underwent partial gastrectomy. Patient is presently on that to pressors maximized on norepinephrine, patient is also on vasopressin receiving albumin, IV fluids started having minimal urine output patient was anuric last night. Patient's chloride is highly elevated leading to metabolic acidosis patient also has an anion gap metabolic acidosis from lactic acidosis which appears to be improving at this time patient's overall clinical condition is guarded and the prognosis is poor. Patient Y blood cell count went down in fact patient is neutropenic now. Patient is presently not receiving any nutrition at this time. 11/01/2021 Patient is seen in follow-up continues to be closely monitored in the ICU in critical condition. Multiple medical consultations including pulmonary human service specialist, cardiology, surgery following closely. Patient is status post partial gastrectomy postop day #2. Patient continues on IV Zosyn along with normal saline at 75 ML per hour. Per nursing staff patient continues on Levophed along with vasopressin for pressor support. Patient not tolerating weaning very well to assess mentation. Patient continues on sedation of propofol and will continue. Chest x-ray today shows basilar atelectasis, may be associated effusion and to correlate to exclude pneumonia. Per nursing staff there has been minimal NG tube output and of note on the x-ray the distal tip of the NG tube is obscured although unable to fully see as there is overlying artifacts with the telemetry monitoring and the patient is rotated. Patient is also having hypoglycemic events and was started on dextrose. Surgery plans for TPN for nutritional support. Family at the bedside today and their questions and concerns were answered. 11/02/2021 Patient evaluated today in the ICU he is postoperative day #3 for partial gastrectomy, currently intubated with an FiO2 of 30% with a PEEP of 5. Current oxygen saturations are 99 to 100%. Blood pressures 119/61, respirations 28, heart rate 107, afebrile. Chest x-ray today shows a stable chest with pleural effusion unchanged, perihilar and basilar infiltrates persist. Per nurse about 500 mLs output from NG tube in the last 12 hours. Continues on IV lasix, TPN, IV zosyn. Pressor support and propfol are currently on hold. Blood pressures are maintaining 120s systolic, heart rate 113 sinus tachycardia, afebrile, respirations 27. Patient with indwelling catheter, urine is dark susana, per nurse no BM since surgery, bowels are absent left lower quadrant, hypoactive to the right quadrant. Labs today show white count 6, hemoglobin 8.6, sodium 142, potassium 3.9, chloride 124, CO2 15, BUN 41, creatinine 1.39, blood glucose in the 80s, calcium 7.2, total bili 1.7, AST 145, ALT 59. Patient is being followed closely by pulmonary, cardiology, and surgical services. 11/03/2021 Patient evaluated today and closely monitored in ICU remains in critical condition. Patient's been off sedation for 24 hours. He is currently spontaneous eye opening, eyes are tracking however he does not move his face, not following motor commands unable to wiggle fingers. Once patient is more a lert may tolerate extubation. He continues to be vented, Fi02 30% with a PEEP of 5 his current oxygen saturation 96%, blood pressure 112/74, heart rate sinus tachycardic in the low 100's, he has been afebrile. Patient has been in a negative fluid balance with -1.8 Liters in the last 24 hours and received 3 doses of IV lasix which is now discontinued. Bowel sounds are hypoactive, abdominal binder in place with dressings intact to midline incision, no bowel movements or passing gas as reported by RN. Creatinine slightly increased today to 1.44, BUN 37. No white count, hemoglobin stable at 8.2, platelets decreased to 40's for the last 2 days, heparin was discontinued, continues with SCD's. Liver enzymes stable from yesterday. Continues on D10 infusion, TPN, maintaining blood pressures off pressor support. Continues on IV zosyn. Chest xray today shows unchanged pleural effusion. Patient remains in the ICU followed closely by pulmonary, cardiology, and surgical services in critical condition. Code status was changed to DNR by family. 11/04/2021 Patient evaluated today in the intensive care unit, he is more alert than yesterday. Per RN patient had a large bowel movement today and bowels are hypoactive today in all quadrants. BM was a maroon color per nurse. Abdominal binder in place. Continues with rivas catheter with over 3L of urine output in the last 24 hours, still with peripheral edema. IV lasix 60 mg x1 was given today. NGT remains in place with only 50 mLs of output overnight. Patient remains off sedation, remains off pressor support. Blood pressure today 115/69, heart rate 106, low grade fever this morning 99.2 axillary, and patient was extubated mid morning is on a 15 L HF cannula. Chest xray this morning shows stable bilateral consolidation and pleural effusion. Remains on D10 gtt at 20 mLs per hour, TPN/Lipids, and IV zosyn. Patient also received potassium suppl ementation today. Followed closely by multiple consultations including cardiology, pulmonary, and surgery and remains in guarded condition. Labs reviewed: sodium 135, potassium 3.2, chloride 120, CO2 20, BUN 45, creat 1.26, blood glucose in the 110's, AST 81, ALT and alk phos have normalized. 11/05/2021 Patient is seen and evaluated in follow-up continues to be in the ICU under close monitoring. Patient was recently extubated and continues on 5 L high flow nasal cannula and oxygen saturations have been 97-100%. Multiple medical consultations including pulmonary human service specialist and surgery following closely. Chest x-ray today shows removal of endotracheal tube along with NG tube and central venous catheter on the right remains in place with no evident pneumothorax and to correlate for pneumonia, congestive heart failure, possible effusions and associated atelectasis versus edema. Patient did receive a dose of IV Lasix yesterday. Neurology consulted and CT of the brain without contrast ordered to assess mentation which is currently pending. Patient is continued on D10 and water and maintaining blood sugars in the 120s and will continue current regimen. Hemoglobin is 7.7 today with no bleeding noted. Platelets on the lower side at 65 although improved from previous and will continue to monitor closely with repeat labs in the morning. Patient also continues on IV Zosyn and will continue at this time. 11/06/2021 Patient is seen in follow-up continues to be in the ICU with multiple medical consultations following. Patient was evaluated by neurology and EEG was ordered and pending. Patient underwent CT of the brain which showed no acute abnormality noted. Patient also had chest x-ray today which shows no significant interval change compared to yesterday with continued questionable pulmonary infiltration at the mid to lower lung zones and there is some congested pulmonary vasculature with bilateral pleural effusions. Patient had been receiving one-time doses of IV Lasix daily and will add scheduled 40 mg IV Lasix and recommend repeat labs and follow-up chest x-ray. Patient is tolerating 3 L high flow via nasal cannula and maintaining oxygen saturations above 97%. Patient continues with significant weakness and PT/OT therapy consulted to follow the patient daily. Patient noted to have increased output noted in the NG tube and general surgery following an plan is for CT abdomen with contrast this afternoon. Will await report. Continues to be nothing by mouth on TPN and will continue for now. 11/07/2021 Patient is seen and continues to be closely monitored in the ICU. Patient underwent CT abdomen and pelvis which shows some resolution of the previously seen gastric pneumatosis with mild wall thickening of the stomach with questionable minimal residual pneumatosis of the second and third part of the duodenum. There is noted 3 flow of the ingested oral contrast on the ileocecal junction with no evidence of contrast leak. There are slightly dilated small bowel loops measuring 3.3 cm with no definite transition point which may suggest an element of ileus. There is some diffuse bowel thickening of the diana nonspecific and fluid-filled colon with thickened wall that may suggest colitis. Also some moderate amount of free abdominal and pelvic fluid with peritoneal fat stranding and most probably related to postoperative changes although peritonitis cannot be excluded. There is a 2.8 cm gallbladder stone with no gallbladder wall thickening or gross signs of acute cholecystitis with no definite intrahepatic focal lesions identified. And there is some bilateral nasal pleural effusions and subsegmental pulmonary atelectasis demonstrating air bronchogram within. Patient is not currently on antibiotics and patient is afebrile. WBC is 8.4, hemoglobin is 7.9, BMP is noted and magnesium is 2.4, triglycerides found to be elevated at 256. Multiple medical consultations following and will continue to follow closely. All intake of fluids have been decreased to 70 mL per hour including TPN. Recommend follow-up chest x-ray in the morning. Nursing staff reports to a bowel movement yesterday although none today. 11/08/2021 Patient continues to be in the ICU being closely monitored. Patient to continue with NG tube as patient continues to have large amounts of output noted in the container. Patient did have a bowel movement yesterday along with today per nursing staff. Patient having some low-grade temps with T-max 101.5 and IV antibiotics in the form of Zosyn have been resumed. Patient continues on TPN and is currently nothing by mouth with NG tube continued. Patient currently receiving chest physiotherapy for continued secretions noted that patient is unable to expectorate. Would encourage incentive spirometer although patient is unable to perform. Duo nebs and updrafts also ordered. Recommend blood, sputum, and urine cultures which are currently pending. Recommend repeat labs. Chest x-ray is ordered. 11/11/2021 This is a patient who has had prolonged hospitalization secondary to ischemic bowel and sepsis and has undergone gastrectomy. Patient was recently transferred out of the ICU to the [facility] unit and had become more lethargic and unresponsive patient was found unresponsive and foaming at the mouth and a code was called. Case was discussed with ICU and patient being brought back to the ICU. Patient's CODE STATUS was addressed with family per nursing staff and brother is okay with intubating the patient. Patient's CODE STATUS is no code. Patient was placed on BiPAP although continued to progress and worsen and patient is currently being intubated by pulmonary human service specialist. Patient family also agreeable to pressor support and continuing current medications, per nursing just does not want CPR initiated. Chest x-ray this morning shows increased interstitial densities and increased small left pleural effusion now with more pronounced airspace disease in the retrocardiac region of the left base and correlate for pneumonia and developing pulmonary vascular congestion. Magnesium also low at 1.4 and being replaced. 11/12/2021 Patient is seen in follow-up continues to be closely monitored in the ICU continued under mechanical ventilation and is sedated. Multiple medical consultations including general surgery. Chest x-ray today shows bilateral infiltrates greater on the left with small left effusion correlate for interstitial pneumonitis versus congestion otherwise findings are stable. Patient is continued on IV antibiotics and awaiting for bronchial washings to finalize. Blood cultures have been negative. Patient continues to have low- grade intermittent temps and continues to be tachypneic. FiO2 is currently 40% with a PEEP of 5. No plans for extubation today. Per nursing staff there continues to be large amounts of output noted in the NG and appear maroon- colored in nature and again general surgery is following. Patient has not had any reported bowel movements per nursing staff since 11/08/2021. There are positive bowel sounds noted on exam and abdomen is soft. Patient underwent CT abdomen yesterday showing pleural effusions with extensive lower lobe pulmonary consolidation and atelectasis similar to old exam with abdominal ascites fluid slightly improved compared to last exam and there is evidence of mild small bowel ileus with no free air and cholelithiasis noted. There is subcutaneous emphysema which is mild around the abdomen and pelvis which is improved compared to last exam as well. 11/13/2021 Patient continues in the ICU in critical condition. Patient was brought back to surgery last night and is status post exploratory laparotomy, drainage of upper abdominal abscess, lysis of adhesions and small bowel resection. Patient continues with TPN and is NPO. Patient continues on mechanical vent with an FI02 of 40% and peep of 5. 2JP drains noted with bilious and serosanguineous fluid and BUSINESS OBJECTS ARCHITECT noted with dark maroon colored drainage. Per nursing staff NG output has decreased. No bowel movements reported. Patient continues on Levophed as well. IV antibiotics as patient continues to be febrile. 11/14/2021 Patient is seen today continues to be closely monitored in the ICU remains on mechanical vent with sedation. FiO2 is 40% with a PEEP of 5. Patient continues to be followed by pulmonary human service specialist along with general surgery. Per nursing staff copious amounts of drainage from the EBONY drain that is bilious most likely continued leak. NG tube continues to have output which appears more maroon and blood tinged and hemoglobin is down to be 6.5 and waiting to receive a unit of PRBC. Patient is afebrile today. Some of the bronchial washings showing Cortney albicans although preliminary and awaiting other cultures. Patient is also maintained on sodium bicarb drip along with fluconazole and Levophed is c urrently off. Patient continues on IV antibiotics in the form of Zosyn and will continue along with vancomycin. Review of systems: Unable to obtain as patient is currently placed back on sedation and intubated Active Medications Albuterol/Ipratropium (Ipratropium-Albuterol 3 Ml Neb) 3 ml INHALATION RT-TID [facility] Last Admin: 11/14/21 11:22 Dose: 3 ml Documented by: Chlorhexidine Gluconate (Chlorhexidine Gluconate 15 Ml Cup) 15 ml MUCOUS MEM BID [facility] Last Admin: 11/14/21 08:19 Dose: 15 ml Documented by: Enoxaparin Sodium (Enoxaparin 40 Mg/0.4 Ml Syringe) 40 mg SQ DAILY [facility] Last Admin: 11/14/21 09:28 Dose: Not Given Documented by: Hydromorphone HCl (Hydromorphone 0.5 Mg/0.5 Ml Syringe) 0.5 mg IVP Q3HR PRN PRN Reason: Pain Last Admin: 11/14/21 06:12 Dose: 0.5 mg Documented by: Piperacillin Sod/Tazobactam (Sod 3.375 gm/ Sodium Chloride) 100 mls @ 25 mls/hr IVPB Q8HR [facility]; Protocol Last Admin: 11/14/21 08:19 Dose: 25 mls/hr Documented by: Propofol 1,000 mg/ IV Solution 100 mls @ 9.684 mls/hr IV .[id number] [facility]; Protocol Last Admin: 11/14/21 11:35 Dose: 50 mcg/kg/min, 24.21 mls/hr Documented by: Norepinephrine Bitartrate 8 mg (/ Sodium Chloride) 258 mls @ 7.808 mls/hr IV .Q24H [facility]; Protocol Last Titration: 11/14/21 09:32 Dose: 0 mcg/kg/min, 0 mls/hr Documented by: Acetaminophen 1,000 mg/ IV (Solution) 100 mls @ 400 mls/hr IVPB Q6HR PRN PRN Reason: Fever and/ or Pain Stop: 11/15/21 22:01 Last Admin: 11/13/21 12:10 Dose: 400 mls/hr Documented by: Potassium Acetate 40 meq/Calcium Gluconate 1 gm/Potassium Phosphate 6 mmol/Amino Acids/Dextrose 1,032 mls @ 70 mls/hr IV .BY DURATION [facility] Last Admin: 11/14/21 00:44 Dose: 70 mls/hr Documented by: Parenteral Vitamin Supplement 10 ml/ Zinc/Copper/Manganese/Selenium 1 ml/ Potassium Acetate 40 meq/ Calcium Gluconate 1 gm/ Potassium Phosphate 6 mmol/ Amino Acids/Dextrose 1,043 mls @ 70 mls/hr IV .BY DURATION [facility] Last Admin: 11/12/21 20:33 Dose: 70 mls/hr Documented by: Vancomycin HCl 1,500 mg/ (Sodium Chloride) 250 mls @ 125 mls/hr IVPB Q12HR [facility] Last Admin: 11/14/21 09:29 Dose: 125 mls/hr Documented by: Fluconazole/Sodium Chloride (400 mg/ IV Solution) 200 mls @ 100 mls/hr IVPB DAILY [facility]; Protocol Last Admin: 11/14/21 11:24 Dose: 100 mls/hr Documented by: Sodium Bicarbonate 150 ml/ (Dextrose/Water) 1,150 mls @ 100 mls/hr IV .[id number] [facility] Last Admin: 11/14/21 11:24 Dose: 100 mls/hr Documented by: Insulin Aspart (Insulin Aspart (Novolog) 100 Unit/Ml Vial) 0 unit SQ Q6HR [facility]; Protocol Last Admin: 11/14/21 05:59 Dose: 2 unit Documented by: Metoclopramide HCl (Metoclopramide 5 Mg/Ml 2 Ml Vial) 10 mg IVP Q6H [facility] Last Admin: 11/14/21 08:19 Dose: 10 mg Documented by: Miscellaneous Information (Potassium Replacement Protocol 1 Each Misc) 1 each MISCELLANE DAILY PRN; Protocol PRN Reason: Per Protocol Miscellaneous Information (Magnesium Replacement Protocol 1 Each Misc) 1 each MISCELLANE DAILY PRN; Protocol PRN Reason: Per Protocol Nystatin (Nystatin 100,000 Unit/Gm Powd 15 Gm) 1 applic TOPICAL DAILY PRN; Protocol PRN Reason: Rash Ondansetron HCl (Ondansetron 4 Mg/2 Ml Vial) 4 mg IVP Q8HR PRN PRN Reason: Nausea And Vomiting Last Admin: 10/30/21 09:30 Dose: 4 mg Documented by: Pantoprazole Sodium (Pantoprazole 40 Mg/10 Ml Vial) 40 mg IVP BID [facility] Last Admin: 11/14/21 08:19 Dose: 40 mg Documented by: PHYSICAL EXAMINATION: GENERAL: Patient is 51-year-old male who is autistic and currently sedated and intubated at this time, FiO2 is 40% with a PEEP of 5 HEENT: Pupils are round and equally reacting to light. EOMI. No scleral icterus. No conjunctival pallor. Normocephalic, atraumatic. No pharyngeal erythema. No thyromegaly. NG tube noted with dark maroon blood CARDIOVASCULAR: S1 and S2 muffled PULMONARY: Diminished breath sounds bilaterally with some scattered crackles and rhonchi noted ABDOMEN: absent Bowel sounds noted on exam, abdominal binder and surgical dressing, 2 EBONY drains with one attached to suction on the wall with copious amounts of bilious drainage noted MUSCULOSKELETAL: No joint swelling or deformity. EXTREMITIES: No cyanosis, clubbing, generalized peripheral edema noted. NEUROLOGICAL: unable to assess as patient is intubated and sedated SKIN: No rashes. Assessment: -Sepsis, present on admission secondary to ischemia of the lateral portion of the stomach and mild ischemia of the proximal jejunum -Post operative partial gastrectomy for ischemic stomach and also had ischemic ileum. -Acute hypoxic respiratory failure secondary to possible aspiration with acute left lower lobe pneumonia, requiring mechanical ventilator -Pneumoperitoneum, suspected gastric leak and section of proximal jejunum with ischemic changes status post exploratory laparotomy, drainage of upper abdominal abscess, lysis of adhesions and small bowel resection on 11/12/2021. -Septic shock status postoperatively -Anion gap metabolic acidosis secondary to lactic acidosis which improved, acidosis secondary to hyperchloremia -Acute renal failure secondary to acute blood loss from septic shock -History of CVA TIA -History diabetes mellitus type 2, uncontrolled -History of hypertension -History of autism -History of intellectual impairment -GI Prophylaxis Protonix -DVT Prophylaxis Subcu heparin -NO CODE Plan: Recommend to continue with ICU management and close monitoring. Patient is status post surgical intervention on 11/12/2021 secondary to pneumoperitoneum, suspected gastric leak and section of proximal jejunum with ischemic changes status post exploratory laparotomy, drainage of upper abdominal abscess, lysis of adhesions and small bowel resection. Patient is currently off pressor support today. Patient with bleeding noted out of the NG tube and hemoglobin was found to be 6.5 and awaiting to be transfused. Patient continues on mechanical vent with an FiO2 of 40% and PEEP is 5. Patient is afebrile today in continued on IV antibiotics and preliminary bronchial washing showing Cortney and patient started on fluconazole. Patient continues to be in critical condition with extremely guarded and overall poor prognosis. This was again discussed with the brother at the bedside and will discuss further with other family members about possible comfort care. The impression and plan of care has been dictated by Rozina Nam, nurse practitioner as directed. Dr. Christina MD I have performed a history and physical examination and MDM of this patient, di scussed the same with the dictator, and agree with the dictator's assessment and plan as written ,documented as a scribe. Based on total visit time, I have performed more than 50% of the visit. . Objective - Vital Signs Vital signs: Vital Signs Temp 99.3 F 11/14/21 04:00 Pulse 99 11/14/21 07:31 Resp 26 H 11/14/21 07:00 BP 115/60 11/14/21 07:00 Pulse Ox 97 11/14/21 07:00 Intake & Output 11/13/21 11/14/21 11/14/21 18:59 06:59 18:59 Intake Total 3346.929 3244.669 105.911 Output Total 1230 2395 Balance 2116.929 849.669 105.911 Weight 88.4 kg Intake: IV 2895 1960 OMFIRMEV 100 Piperacillin-Tazobactam 3 125 .375 gm In Sodium Chloride 0.9% 100 ml @ 25 mls/hr IVPB Q8HR [facility] Rx# :[id number] Sodium Chloride 0.9% 1, 1050 000 ml @ 150 mls/hr IV . [id number] [facility] Rx#:[id number] Sodium Chloride 0.9% 1, 1650 000 ml @ 20 mls/hr IV . Q24H [facility] Rx#:[id number] TPN/MVI 770 910 Vancomycin 250 Intake, IV Titration 243.626 3995.669 105.911 Amount Norepinephrine 8 mg In 251.929 38.261 10.281 Sodium Chloride 0.9% 250 ml @ 0.05 MCG/KG/MIN 7. 808 mls/hr IV .Q24H [facility] Rx#:[id number] Potassium Acetate 40 meq 964.833 Calcium Gluconate 1 gm Potassium Phosphate 6 mmol In Amino Acids 5 %/ Dextrose 20 % 1,000 ml @ 70 mls/hr IV .BY DURATION [facility] Rx#:[id number] propofoL 1,000 mg In 200 281.575 95.63 Empty Bag 1 bag @ 20 MCG/ KG/MIN 9.684 mls/hr IV . [id number] [facility] Rx#:[id number] Output: Drainage 710 1400 Left Abdomen 670 1380 Right Abdomen 40 20 Urine 520 995 Other: Voiding Method Indwelling Catheter Indwelling Catheter ABP, PAP, CO, CI - Last Documented Arterial Blood Pressure 102/51 - Labs CBC & Chem 7: 11/14/21 08:11 11/14/21 08:11 Labs: Abnormal Lab Results - Last 24 Hours (Table) 11/13/21 11/13/21 11/13/21 Range/Units 05:10 07:42 12:19 WBC 20.4 H (3.8-10.6) k/uL RBC (4.30-5.90) m/uL Hgb (13.0-17.5) gm/dL Hct (39.0-53.0) % MCHC (31.0-37.0) g/dL RDW (11.5-15.5) % Plt Count (150-450) k/uL Neutrophils # (Manual) 17.10 H (1.3-7.7) k/uL Lymphocytes # (Manual) 0.61 L (1.0-4.8) k/uL Monocytes # (Manual) 1.02 H (0-1.0) k/uL Metamyelocytes # (Man) 0.82 H (0) k/uL Myelocytes # (Manual) 0.61 H (0) k/uL Nucleated RBCs 2 H (0-0) /100 WBC ABG pH (7.35-7.45) ABG pCO2 (35-45) mmHg ABG pO2 (83-108) mmHg ABG HCO3 (21-25) mmol/L ABG Total CO2 (19-24) mmol/L ABG O2 Saturation (94-97) % POC Glucose (mg/dL) 154 H (75-99) mg/dL Procalcitonin 6.77 H (0.02-0.09) ng/mL 11/13/21 11/13/21 11/14/21 Range/Units 18:28 23:20 04:07 WBC 21.1 H (3.8-10.6) k/uL RBC 2.53 L (4.30-5.90) m/uL Hgb 6.7 L* D (13.0-17.5) gm/dL Hct 22.1 L (39.0-53.0) % MCHC 30.4 L (31.0-37.0) g/dL RDW 18.0 H (11.5-15.5) % Plt Count 596 H (150-450) k/uL Neutrophils # (Manual) 16.00 H (1.3-7.7) k/uL Lymphocytes # (Manual) (1.0-4.8) k/uL Monocytes # (Manual) 1.48 H (0-1.0) k/uL Metamyelocytes # (Man) 0.42 H (0) k/uL Myelocytes # (Manual) 0.63 H (0) k/uL Nucleated RBCs 2 H (0-0) /100 WBC ABG pH (7.35-7.45) ABG pCO2 (35-45) mmHg ABG pO2 (83-108) mmHg ABG HCO3 (21-25) mmol/L ABG Total CO2 (19-24) mmol/L ABG O2 Saturation (94-97) % POC Glucose (mg/dL) 160 H 143 H (75-99) mg/dL Procalcitonin (0.02-0.09) ng/mL 11/14/21 11/14/21 11/14/21 Range/Units 05:40 05:50 08:11 WBC 21.3 H (3.8-10.6) k/uL RBC 2.54 L (4.30-5.90) m/uL Hgb 6.5 L* (13.0-17.5) gm/dL Hct 22.0 L (39.0-53.0) % MCHC 29.3 L (31.0-37.0) g/dL RDW 18.4 H (11.5-15.5) % Plt Count 644 H (150-450) k/uL Neutrophils # (Manual) (1.3-7.7) k/uL Lymphocytes # (Manual) (1.0-4.8) k/uL Monocytes # (Manual) (0-1.0) k/uL Metamyelocytes # (Man) (0) k/uL Myelocytes # (Manual) (0) k/uL Nucleated RBCs (0-0) /100 WBC ABG pH 7.25 L (7.35-7.45) ABG pCO2 34 L (35-45) mmHg ABG pO2 132 H (83-108) mmHg ABG HCO3 15 L (21-25) mmol/L ABG Total CO2 16 L (19-24) mmol/L ABG O2 Saturation 98.9 H (94-97) % POC Glucose (mg/dL) 170 H (75-99) mg/dL Procalcitonin (0.02-0.09) ng/mL Microbiology - Last 24 Hours (Table) 11/10/21 18:03 Blood Culture - Preliminary Blood No Growth after 72 hours 11/08/21 09:54 Blood Culture - Preliminary Blood No Growth after 120 hours 11/11/21 12:00 Gram Stain - Final Bronchoalviolar Lavage - Left Bronchial Washings Culture - Final Cortney albicans 11/11/21 12:30 Gram Stain - Final Bronchial Washings - Random Bronchial Washings Culture - Final
--- NOTE | 2021-11-14 14:38 | P.PN ---
Subjective Progress Note Date: 11/14/21 The patient is seen at bedside and had a second surgery for his pneumoperitoneum suspected gas leak. It was felt he had proximal jejunum with ischemic changes per Operative note. He continues to be intubated, on ventilator and is on IV Propofol 50mcg/kg/min. No seizure-like activity noted. Objective - Vital Signs Vital signs: Vital Signs Temp 98.2 F 11/14/21 14:03 Pulse 98 11/14/21 14:03 Resp 32 H 11/14/21 14:03 BP 136/55 11/14/21 14:03 Pulse Ox 98 11/14/21 14:03 Intake & Output 11/13/21 11/14/21 11/14/21 18:59 06:59 18:59 Intake Total 3346.929 3244.669 471.936 Output Total 1230 2395 Balance 2116.929 849.669 471.936 Weight 88.4 kg 88.4 kg Intake: IV 2895 1960 OMFIRMEV 100 Piperacillin-Tazobactam 3 125 .375 gm In Sodium Chloride 0.9% 100 ml @ 25 mls/hr IVPB Q8HR [facility] Rx# :[id number] Sodium Chloride 0.9% 1, 1050 000 ml @ 150 mls/hr IV . Q6H40M [facility] Rx#:[id number] Sodium Chloride 0.9% 1, 1650 000 ml @ 20 mls/hr IV . Q24H [facility] Rx#:[id number] TPN/MVI 770 910 Vancomycin 250 Intake, IV Titration 461.847 0110.669 186.936 Amount Norepinephrine 8 mg In 251.929 38.261 11.817 Sodium Chloride 0.9% 250 ml @ 0.05 MCG/KG/MIN 7. 808 mls/hr IV .Q24H [facility] Rx#:[id number] Potassium Acetate 40 meq 964.833 Calcium Gluconate 1 gm Potassium Phosphate 6 mmol In Amino Acids 5 %/ Dextrose 20 % 1,000 ml @ 70 mls/hr IV .BY DURATION [facility] Rx#:[id number] propofoL 1,000 mg In 200 281.575 175.119 Empty Bag 1 bag @ 20 MCG/ KG/MIN 9.684 mls/hr IV . [id number] [facility] Rx#:[id number] Blood Product 285 Rc Pheresis 2 As3 Unit 285 [id number] Output: Drainage 710 1400 Left Abdomen 670 1380 Right Abdomen 40 20 Urine 520 995 Other: Voiding Method Indwelling Catheter Indwelling Catheter ABP, PAP, CO, CI - Last Documented Arterial Blood Pressure 102/51 - Exam GENERAL: The patient is lying in bed and does not seem in acute distress. LUNG: Clear to auscultation bilaterally no wheezing noted throughout. Not labored breathing. Intubated on ventilator. NEUROLOGICAL: Limited. IV Propofol 50mcg/kg/min. Higher mental function: Comatose. GCS 3 (E1, VT1, M1). Cranial nerves: I mannually opened his Primary gaze is midline. Pupils are round, equal, about 2mm and reactive to light. No facial weakness. Is breathing over the vent. Motor: Unable to assess. No spontaneous movement. - Labs CBC & Chem 7: 11/14/21 08:11 11/14/21 08:11 Labs: Abnormal Lab Results - Last 24 Hours (Table) 11/11/21 11/13/21 11/13/21 Range/Units 19:05 05:10 18:28 WBC (3.8-10.6) k/uL RBC (4.30-5.90) m/uL Hgb (13.0-17.5) gm/dL Hct (39.0-53.0) % MCHC (31.0-37.0) g/dL RDW (11.5-15.5) % Plt Count (150-450) k/uL Neutrophils # (Manual) (1.3-7.7) k/uL Monocytes # (Manual) (0-1.0) k/uL Basophils # (Manual) (0-0.2) k/uL Metamyelocytes # (Man) (0) k/uL Myelocytes # (Manual) (0) k/uL Nucleated RBCs (0-0) /100 WBC ABG pH (7.35-7.45) ABG pCO2 (35-45) mmHg ABG pO2 (83-108) mmHg ABG HCO3 (21-25) mmol/L ABG Total CO2 (19-24) mmol/L ABG O2 Saturation (94-97) % Chloride (98-107) mmol/L Carbon Dioxide (22-30) mmol/L BUN (9-20) mg/dL Glucose (74-99) mg/dL POC Glucose (mg/dL) 160 H (75-99) mg/dL Calcium (8.4-10.2) mg/dL Phosphorus (2.5-4.5) mg/dL Total Bilirubin (0.2-1.3) mg/dL Total Protein (6.3-8.2) g/dL Albumin (3.5-5.0) g/dL Procalcitonin 6.77 H (0.02-0.09) ng/mL Crossmatch See Detail 11/13/21 11/14/21 11/14/21 Range/Units 23:20 04:07 05:40 WBC 21.1 H (3.8-10.6) k/uL RBC 2.53 L (4.30-5.90) m/uL Hgb 6.7 L* D (13.0-17.5) gm/dL Hct 22.1 L (39.0-53.0) % MCHC 30.4 L (31.0-37.0) g/dL RDW 18.0 H (11.5-15.5) % Plt Count 596 H (150-450) k/uL Neutrophils # (Manual) 16.00 H (1.3-7.7) k/uL Monocytes # (Manual) 1.48 H (0-1.0) k/uL Basophils # (Manual) (0-0.2) k/uL Metamyelocytes # (Man) 0.42 H (0) k/uL Myelocytes # (Manual) 0.63 H (0) k/uL Nucleated RBCs 2 H (0-0) /100 WBC ABG pH 7.25 L (7.35-7.45) ABG pCO2 34 L (35-45) mmHg ABG pO2 132 H (83-108) mmHg ABG HCO3 15 L (21-25) mmol/L ABG Total CO2 16 L (19-24) mmol/L ABG O2 Saturation 98.9 H (94-97) % Chloride (98-107) mmol/L Carbon Dioxide (22-30) mmol/L BUN (9-20) mg/dL Glucose (74-99) mg/dL POC Glucose (mg/dL) 143 H (75-99) mg/dL Calcium (8.4-10.2) mg/dL Phosphorus (2.5-4.5) mg/dL Total Bilirubin (0.2-1.3) mg/dL Total Protein (6.3-8.2) g/dL Albumin (3.5-5.0) g/dL Procalcitonin (0.02-0.09) ng/mL Crossmatch 11/14/21 11/14/21 11/14/21 Range/Units 05:50 08:11 08:11 WBC 21.3 H (3.8-10.6) k/uL RBC 2.54 L (4.30-5.90) m/uL Hgb 6.5 L* (13.0-17.5) gm/dL Hct 22.0 L (39.0-53.0) % MCHC 29.3 L (31.0-37.0) g/dL RDW 18.4 H (11.5-15.5) % Plt Count 644 H (150-450) k/uL Neutrophils # (Manual) 17.40 H (1.3-7.7) k/uL Monocytes # (Manual) 1.07 H (0-1.0) k/uL Basophils # (Manual) 0.21 H (0-0.2) k/uL Metamyelocytes # (Man) 1.07 H (0) k/uL Myelocytes # (Manual) 0.85 H (0) k/uL Nucleated RBCs (0-0) /100 WBC ABG pH (7.35-7.45) ABG pCO2 (35-45) mmHg ABG pO2 (83-108) mmHg ABG HCO3 (21-25) mmol/L ABG Total CO2 (19-24) mmol/L ABG O2 Saturation (94-97) % Chloride 125 H (98-107) mmol/L Carbon Dioxide 14 L (22-30) mmol/L BUN 30 H (9-20) mg/dL Glucose 145 H (74-99) mg/dL POC Glucose (mg/dL) 170 H (75-99) mg/dL Calcium 7.7 L (8.4-10.2) mg/dL Phosphorus 4.6 H (2.5-4.5) mg/dL Total Bilirubin 2.0 H (0.2-1.3) mg/dL Total Protein 4.7 L (6.3-8.2) g/dL Albumin 1.6 L (3.5-5.0) g/dL Procalcitonin (0.02-0.09) ng/mL Crossmatch 11/14/21 Range/Units 11:45 WBC (3.8-10.6) k/uL RBC (4.30-5.90) m/uL Hgb (13.0-17.5) gm/dL Hct (39.0-53.0) % MCHC (31.0-37.0) g/dL RDW (11.5-15.5) % Plt Count (150-450) k/uL Neutrophils # (Manual) (1.3-7.7) k/uL Monocytes # (Manual) (0-1.0) k/uL Basophils # (Manual) (0-0.2) k/uL Metamyelocytes # (Man) (0) k/uL Myelocytes # (Manual) (0) k/uL Nucleated RBCs (0-0) /100 WBC ABG pH (7.35-7.45) ABG pCO2 (35-45) mmHg ABG pO2 (83-108) mmHg ABG HCO3 (21-25) mmol/L ABG Total CO2 (19-24) mmol/L ABG O2 Saturation (94-97) % Chloride (98-107) mmol/L Carbon Dioxide (22-30) mmol/L BUN (9-20) mg/dL Glucose (74-99) mg/dL POC Glucose (mg/dL) 151 H (75-99) mg/dL Calcium (8.4-10.2) mg/dL Phosphorus (2.5-4.5) mg/dL Total Bilirubin (0.2-1.3) mg/dL Total Protein (6.3-8.2) g/dL Albumin (3.5-5.0) g/dL Procalcitonin (0.02-0.09) ng/mL Crossmatch Microbiology - Last 24 Hours (Table) 11/13/21 20:40 Body Fluid Culture - Preliminary Aspirate 11/08/21 09:54 Blood Culture - Final Blood No Growth after 144 hours 11/10/21 18:03 Blood Culture - Preliminary Blood No Growth after 72 hours Assessment and Plan Assessment: * Altered mental status, likely due to multifactorial: septic encephalopathy and component toxic metabolic encephalopathy, hypoxic respiratory failure as well as medication use (IV Propofol). 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 * Status post septic shock. * Status post acute kidney injury--resolved * Episode of hypoglycemia 36 mg/dL) on 11/01/2021 * Diabetes * Hypertension * Anemia * Developmental delay, autism and intellectual impairment. Plan: * EEG 11/06/2021 is reported as revealed moderate background slowing consistent with encephalopathy. No epileptiform activity was seen. * Computed tomography scan of the head showed no acute process (patient had two CT of heads and last on 11/05/2021). * Repeat ammonia is normal <9. B12 > 2000, folate 10.9. TSH is normal. * Avoid any episodes of hypoglycemia. * General surgery team is on board. * Will defer the rest of medical management to the primary and ICU team. The plan is discussed with the patient's nurse. Will follow-up patient sporadically. Aldo Downey M.D. Neuro-Hospitalist Time with Patient: Less than 30
[2021-11-14] MEDS: [UNRECOGNIZED DRUG - OTHER] IV SCH ×5 (15:14)
[2021-11-14 16:51] LABS: Anisocytosis Slight; HCT 22.5 % (39.0-53.0); Hypochromasia Marked; MCH 26.7 pg (25.0-35.0); MCHC 30.1 g/dL (31.0-37.0); MCV 88.6 fL (80.0-100.0); Mean Platelet Volume 8.5; Platelet Count 548 k/uL (150-450); Poikilocytosis Moderate; RBC 2.54 m/uL (4.30-5.90); RDW 18.9 % (11.5-15.5)
[2021-11-14 16:59] LABS: HGB 6.8 gm/dL (13.0-17.5)
[2021-11-14 18:12] LABS: Glucose,Whole Blood 145 mg/dL (75-99)
[2021-11-14 23:49] LABS: Anisocytosis Slight; HCT 23.2 % (39.0-53.0); HGB 7.2 gm/dL (13.0-17.5); Hypochromasia Marked; MCH 27.3 pg (25.0-35.0); MCHC 31.1 g/dL (31.0-37.0); MCV 87.9 fL (80.0-100.0); Platelet Count 518 k/uL (150-450); Poikilocytosis Slight; RBC 2.64 m/uL (4.30-5.90); RDW 18.1 % (11.5-15.5); WBC 21.4 k/uL (3.8-10.6)
[2021-11-15 00:10] LABS: Glucose,Whole Blood 150 mg/dL (75-99)
[2021-11-15] MEDS: INSULIN ASPART (NovoLOG) 100 UNIT/ML VIAL SQ SCH ×4 (00:13→17:44)
[2021-11-15] MEDS: PIPERACILLIN-TAZOBACTAM 3.375 GM in SODIUM CHLORIDE 0.9% 100 ML IVPB SCH ×2 (00:13→11:36)
[2021-11-15] MEDS: METOCLOPRAMIDE 5 MG/ML 2 ML VIAL IVP SCH ×4 (02:55→20:51)
[2021-11-15] MEDS: POTASSIUM ACETATE IV SCH ×10 (05:03→18:58)
[2021-11-15] MEDS: CALCIUM GLUCONATE IV SCH ×10 (05:03→18:58)
[2021-11-15] MEDS: [UNRECOGNIZED DRUG - OTHER] IV SCH ×10 (05:03→18:58)
[2021-11-15 05:04] LABS: Anisocytosis Slight; HGB 7.3 gm/dL (13.0-17.5); Hypochromasia Marked; MCH 26.6 pg (25.0-35.0); MCHC 30.5 g/dL (31.0-37.0); MCV 87.4 fL (80.0-100.0); Mean Platelet Volume 8.1; Platelet Count 516 k/uL (150-450); Poikilocytosis Moderate; RBC 2.75 m/uL (4.30-5.90); RDW 19.3 % (11.5-15.5); WBC 20.3 k/uL (3.8-10.6)
[2021-11-15 05:21] LABS: Calcium 7.8 mg/dL (8.4-10.2); Magnesium 2.1 mg/dL (1.6-2.3); Phosphorus 4.1 mg/dL (2.5-4.5); Potassium 4.5 mmol/L (3.5-5.1)
[2021-11-15 06:07] LABS: Glucose,Whole Blood 154 mg/dL (75-99)
[2021-11-15 06:09] LABS: ABG Base Excess -7.3 mmol/L; ABG HCO3 19 mmol/L (21-25); ABG PCO2 35 mmHg (35-45); ABG PH 7.34 (7.35-7.45); ABG PO2 149 mmHg (83-108); ABG TCO2 20 mmol/L (19-24); Allen Test Performed? Yes
[2021-11-15 06:45] LABS: Band Neutrophils % 18 %; Eosinophils # (M) 0.61 k/uL (0-0.7); Lymphocytes # (M) 1.62 k/uL (1.0-4.8); Metamyelocytes # (M) 1.22 k/uL (0); Metamyelocytes % 6 %; Monocytes # (M) 0.61 k/uL (0-1.0); Myelocytes # (M) 0.41 k/uL (0); Myelocytes % 2 %; Neutrophils % (M) 63 %; Nucleated Red Blood Cells 0 /100 WBC (0-0); Polychromasia Present; Total Cells Counted 200
--- NOTE | 2021-11-15 08:50 | XR ---
EXAMINATION TYPE: XR chest 1V portable DATE OF EXAM: 11/15/2021 COMPARISON: 11/14/2021 HISTORY: Tube placement TECHNIQUE: Single frontal view of the chest is obtained. FINDINGS: ET and NG tube noted. Right-sided central line seen. The heart is enlarged there is bilate ral consolidation and pleural effusion. Interstitial pattern noted. No pneumothorax. Findings are sta ble. IMPRESSION: 1. Diffuse pleural-parenchymal changes correlate for pneumonia. CHF not excluded.
[2021-11-15] MEDS: IPRATROPIUM-ALBUTEROL 3 ML NEB INHALATION SCH ×3 (09:26→19:47)
[2021-11-15] MEDS ORDERED: FUROSEMIDE 10 MG/ML 4 ML VIAL IV STA (10:01)
[2021-11-15] MEDS: ENOXAPARIN 40 MG/0.4 ML SYRINGE SQ SCH ×2 (10:31→10:42)
[2021-11-15] MEDS: VANCOMYCIN 1,500 MG in SODIUM CHLORIDE 0.9% 250 ML IVPB SCH ×2 (10:41→20:51)
[2021-11-15] MEDS: FLUCONAZOLE IN NACL,ISO-OSM 400 MG in SALINE 1 200ML.BAG IVPB SCH (10:41)
[2021-11-15] MEDS: CHLORHEXIDINE GLUCONATE 15 ML CUP MUCOUS MEM SCH ×2 (10:41→20:51)
[2021-11-15] MEDS: PANTOPRAZOLE 40 MG/10 ML VIAL IVP SCH ×2 (10:42→20:51)
[2021-11-15] MEDS: DEXTROSE 5% IN WATER 1,000 ML with SODIUM BICARB (1 MEQ/ML) 150 ML IV SCH ×2 (10:44→21:50)
[2021-11-15] MEDS ORDERED: PIPERACILLIN-TAZOBACTAM 3.375 GM in SODIUM CHLORIDE 0.9% 100 ML IVPB ONE (11:00)
[2021-11-15 11:44] LABS: Glucose,Whole Blood 165 mg/dL (75-99)
--- NOTE | 2021-11-15 13:37 | P.PN ---
Subjective Progress Note Date: 11/15/21 The patient was seen at bedside and he was on IV Propofol 50mcg/kg/min which is held 15-20 minutes prior to my arrival. No acute neurological event. Objective - Vital Signs Vital signs: Vital Signs Temp 99.3 F 11/15/21 12:00 Pulse 82 11/15/21 12:28 Resp 29 H 11/15/21 12:00 BP 115/58 11/15/21 05:00 Pulse Ox 97 11/15/21 12:00 Intake & Output 11/14/21 11/15/21 11/15/21 18:59 06:59 18:59 Intake Total 2520.390 5464.985 4772.909 Output Total 2200 2465 800 Balance 320.390 -655.739 680.909 Weight 89.5 kg 89.5 kg Intake: IV 1950 1300 1330 Dextrose 5% in Water 1, 700 1300 500 000 ml @ 50 mls/hr IV . Q23H [facility] with Sodium Bicarb (1 Meq/ml) 150 ml Rx#:[id number] Fluconazole in NaCl,Iso- 200 200 Osm 400 mg In Saline 1 200ml.bag @ 100 mls/hr IVPB DAILY [facility] Rx#: [id number] Piperacillin-Tazobactam 3 200 100 .375 gm In Sodium Chloride 0.9% 100 ml @ 25 mls/hr IVPB Q8HR [facility] Rx# :[id number] Sodium Chloride 0.9% 1, 600 000 ml @ 150 mls/hr IV . Q6H40M [facility] Rx#:[id number] TPN 280 Vancomycin 1,500 mg In 250 250 Sodium Chloride 0.9% 250 ml @ 125 mls/hr IVPB Q12HR [facility] Rx#:[id number] Intake, IV Titration 285.390 199.261 150.909 Amount Norepinephrine 8 mg In 11.817 Sodium Chloride 0.9% 250 ml @ 0.05 MCG/KG/MIN 7. 808 mls/hr IV .Q24H [facility] Rx#:[id number] propofoL 1,000 mg In 273.573 199.261 150.909 Empty Bag 1 bag @ 20 MCG/ KG/MIN 9.684 mls/hr IV . [id number] [facility] Rx#:[id number] Oral 0 Blood Product 285 310 Rc Irr As1 Unit 0 310 [id number] Rc Pheresis 2 As3 Unit 285 [id number] Output: Gastric Drainage 900 1550 Drainage 350 40 Left Abdomen 350 20 Right Abdomen 20 Urine 950 875 800 Other: Voiding Method Indwelling Catheter Indwelling Catheter # Bowel Movements 1 1 ABP, PAP, CO, CI - Last Documented Arterial Blood Pressure 143/56 - Exam GENERAL: The patient is lying in bed and does not seem in acute distress. LUNG: Clear to auscultation bilaterally no wheezing noted throughout. Not labored breathing. Intubated on ventilator. NEUROLOGICAL: Limited. IV Propofol 50mcg/kg/min which is held about 15-20 minutes. Higher mental function: The patient is awake, alert but is not following command or responding to quesioning. Cranial nerves: Pupils are round, equal and reactive to light. His tracking throughout the room. No facial weakness. Is breathing over the vent. Motor: Unable to assess. No spontaneous movement. - Labs CBC & Chem 7: 11/15/21 04:35 11/15/21 04:35 Labs: Abnormal Lab Results - Last 24 Hours (Table) 11/11/21 11/14/21 11/14/21 Range/Units 19:05 16:30 18:11 WBC 22.0 H (3.8-10.6) k/uL RBC 2.54 L (4.30-5.90) m/uL Hgb 6.8 L* (13.0-17.5) gm/dL Hct 22.5 L (39.0-53.0) % MCHC 30.1 L (31.0-37.0) g/dL RDW 18.9 H (11.5-15.5) % Plt Count 548 H (150-450) k/uL Neutrophils # (Manual) (1.3-7.7) k/uL Metamyelocytes # (Man) (0) k/uL Myelocytes # (Manual) (0) k/uL ABG pH (7.35-7.45) ABG pO2 (83-108) mmHg ABG HCO3 (21-25) mmol/L ABG O2 Saturation (94-97) % Chloride (98-107) mmol/L Carbon Dioxide (22-30) mmol/L BUN (9-20) mg/dL Glucose (74-99) mg/dL POC Glucose (mg/dL) 145 H (75-99) mg/dL Calcium (8.4-10.2) mg/dL Crossmatch See Detail 11/14/21 11/15/21 11/15/21 Range/Units 23:40 00:08 04:35 WBC 21.4 H (3.8-10.6) k/uL RBC 2.64 L (4.30-5.90) m/uL Hgb 7.2 L (13.0-17.5) gm/dL Hct 23.2 L (39.0-53.0) % MCHC (31.0-37.0) g/dL RDW 18.1 H (11.5-15.5) % Plt Count 518 H (150-450) k/uL Neutrophils # (Manual) (1.3-7.7) k/uL Metamyelocytes # (Man) (0) k/uL Myelocytes # (Manual) (0) k/uL ABG pH (7.35-7.45) ABG pO2 (83-108) mmHg ABG HCO3 (21-25) mmol/L ABG O2 Saturation (94-97) % Chloride 118 H (98-107) mmol/L Carbon Dioxide 18 L (22-30) mmol/L BUN 29 H (9-20) mg/dL Glucose 145 H (74-99) mg/dL POC Glucose (mg/dL) 150 H (75-99) mg/dL Calcium 7.8 L (8.4-10.2) mg/dL Crossmatch 11/15/21 11/15/21 11/15/21 Range/Units 04:35 06:06 06:06 WBC 20.3 H (3.8-10.6) k/uL RBC 2.75 L (4.30-5.90) m/uL Hgb 7.3 L (13.0-17.5) gm/dL Hct 24.0 L (39.0-53.0) % MCHC 30.5 L (31.0-37.0) g/dL RDW 19.3 H (11.5-15.5) % Plt Count 516 H (150-450) k/uL Neutrophils # (Manual) 16.40 H (1.3-7.7) k/uL Metamyelocytes # (Man) 1.22 H (0) k/uL Myelocytes # (Manual) 0.41 H (0) k/uL ABG pH 7.34 L (7.35-7.45) ABG pO2 149 H (83-108) mmHg ABG HCO3 19 L (21-25) mmol/L ABG O2 Saturation 99.0 H (94-97) % Chloride (98-107) mmol/L Carbon Dioxide (22-30) mmol/L BUN (9-20) mg/dL Glucose (74-99) mg/dL POC Glucose (mg/dL) 154 H (75-99) mg/dL Calcium (8.4-10.2) mg/dL Crossmatch 11/15/21 Range/Units 11:43 WBC (3.8-10.6) k/uL RBC (4.30-5.90) m/uL Hgb (13.0-17.5) gm/dL Hct (39.0-53.0) % MCHC (31.0-37.0) g/dL RDW (11.5-15.5) % Plt Count (150-450) k/uL Neutrophils # (Manual) (1.3-7.7) k/uL Metamyelocytes # (Man) (0) k/uL Myelocytes # (Manual) (0) k/uL ABG pH (7.35-7.45) ABG pO2 (83-108) mmHg ABG HCO3 (21-25) mmol/L ABG O2 Saturation (94-97) % Chloride (98-107) mmol/L Carbon Dioxide (22-30) mmol/L BUN (9-20) mg/dL Glucose (74-99) mg/dL POC Glucose (mg/dL) 165 H (75-99) mg/dL Calcium (8.4-10.2) mg/dL Crossmatch Microbiology - Last 24 Hours (Table) 11/13/21 20:40 Gram Stain - Preliminary Aspirate Body Fluid Culture - Preliminary Gram Neg Bacilli Yeast species 11/10/21 18:03 Blood Culture - Preliminary Blood No Growth after 96 hours 11/08/21 09:54 Blood Culture - Final Blood No Growth after 144 hours Assessment and Plan Assessment: * Altered mental status, likely due to multifactorial: septic encephalopathy and component toxic metabolic encephalopathy, hypoxic respiratory failure as well as medication use (IV Propofol)---slight improvement. 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 * Status post septic shock. * Status post acute kidney injury--resolved * Episode of hypoglycemia 36 mg/dL) on 11/01/2021 * Diabetes * Hypertension * Anemia * Developmental delay, autism and intellectual impairment. Plan: * EEG 11/06/2021 is reported as revealed moderate background slowing consistent with encephalopathy. No epileptiform activity was seen. * Computed tomography scan of the head showed no acute process (patient had two CT of heads and last on 11/05/2021). * Repeat ammonia is normal <9. B12 > 2000, folate 10.9. TSH is normal. * Avoid any episodes of hypoglycemia. * General surgery team is on board. * Will defer the rest of medical management to the primary and ICU team. The plan is discussed with the patient's nurse. Will follow-up patient sporadically. Aldo Downey M.D. Neuro-Hospitalist Time with Patient: Less than 30
--- NOTE | 2021-11-15 13:58 | P.PN ---
Subjective Progress Note Date: 11/15/21 CHIEF COMPLAINT: Abdominal pain HISTORY OF PRESENT ILLNESS: Patient remains in the ICU and intubated. Patient undergoing a sedation holiday. Patient having low-grade temps of 99.3. He did receive a unit of blood yesterday for hemoglobin of 6.5. Hemoglobin has come up to 7.3. White count decreased from 21.4-20.3 hemoglobin 7.3 platelets 516 creatinine 1.22. 1100ml bilioius output through NG tube. EBONY drain output has decreased. Left-sided abdomen is 40ml and right side 20 mL bile in color. Shelby barrow's Lovenox is currently on hold since he had bleeding through the NG tube yesterday. Patient is postop day #2 status post exploratory laparotomy, drainage of upper abdominal abscess, lysis of adhesions and small bowel resection for pneumoperitoneum, suspected gastric leak and section of proximal jejunum with ischemic changes. PHYSICAL EXAM: VITAL SIGNS: Reviewed. GENERAL: Intubated HEENT: Moist buccal mucosa. Head is atraumatic, normocephalic. ABDOMEN: Soft. Mildly distended. Incision site is open dressing has some small amount of serosanguineous drainage noted. Patient has retention sutures in place. ASSESSMENT: 1. Pneumoperitoneum, suspected gastric leak and section of proximal jejunum with ischemic changes status post exploratory laparotomy, drainage of upper abdominal abscess, lysis of adhesions and small bowel resection. 2. Ischemia of the lateral portion of the stomach and mild ischemia of the proximal jejunum status post exploratory laparotomy and partial gastrectomy on 10/30/21 3. Septic shock 4. Postoperative ileus 5. Thrombocytopenia resolved 6. Pneumonia 7. Anemia PLAN: -Continue ICU management -Continue supportive care -Continue IV fluids -Continue NG tube for decompression -Continue to monitor EBONY drain output -Keep patient nothing by mouth -Continue antibiotics -Continue Reglan for ileus -Continue TPN for nutrition support -CODE STATUS DO NOT RESUSCITATE Physician Rn Admission note has been reviewed by physician. Signing provider agrees with the documented findings, assessment, and plan of care. Objective - Vital Signs Vital signs: Vital Signs Temp 99.3 F 11/15/21 12:00 Pulse 82 11/15/21 12:28 Resp 29 H 11/15/21 12:00 BP 115/58 11/15/21 05:00 Pulse Ox 97 11/15/21 12:00 Intake & Output 11/14/21 11/15/21 11/15/21 18:59 06:59 18:59 Intake Total 2520.390 9193.695 1087.909 Output Total 2200 2465 800 Balance 320.390 -655.739 680.909 Weight 89.5 kg 89.5 kg Intake: IV 1950 1300 1330 Dextrose 5% in Water 1, 700 1300 500 000 ml @ 50 mls/hr IV . Q23H [facility] with Sodium Bicarb (1 Meq/ml) 150 ml Rx#:[id number] Fluconazole in NaCl,Iso- 200 200 Osm 400 mg In Saline 1 200ml.bag @ 100 mls/hr IVPB DAILY [facility] Rx#: [id number] Piperacillin-Tazobactam 3 200 100 .375 gm In Sodium Chloride 0.9% 100 ml @ 25 mls/hr IVPB Q8HR [facility] Rx# :[id number] Sodium Chloride 0.9% 1, 600 000 ml @ 150 mls/hr IV . Q6H40M [facility] Rx#:[id number] TPN 280 Vancomycin 1,500 mg In 250 250 Sodium Chloride 0.9% 250 ml @ 125 mls/hr IVPB Q12HR [facility] Rx#:[id number] Intake, IV Titration 285.390 199.261 150.909 Amount Norepinephrine 8 mg In 11.817 Sodium Chloride 0.9% 250 ml @ 0.05 MCG/KG/MIN 7. 808 mls/hr IV .Q24H [facility] Rx#:[id number] propofoL 1,000 mg In 273.573 199.261 150.909 Empty Bag 1 bag @ 20 MCG/ KG/MIN 9.684 mls/hr IV . [id number] [facility] Rx#:[id number] Oral 0 Blood Product 285 310 Rc Irr As1 Unit 0 310 [id number] Rc Pheresis 2 As3 Unit 285 [id number] Output: Gastric Drainage 900 1550 Drainage 350 40 Left Abdomen 350 20 Right Abdomen 20 Urine 950 875 800 Other: Voiding Method Indwelling Catheter Indwelling Catheter # Bowel Movements 1 1 ABP, PAP, CO, CI - Last Documented Arterial Blood Pressure 143/56 - Labs CBC & Chem 7: 11/15/21 04:35 11/15/21 04:35 Labs: Abnormal Lab Results - Last 24 Hours (Table) 03/11/14/21 11/14/21 Range/Units 19:05 16:30 18:11 WBC 22.0 H (3.8-10.6) k/uL RBC 2.54 L (4.30-5.90) m/uL Hgb 6.8 L* (13.0-17.5) gm/dL Hct 22.5 L (39.0-53.0) % MCHC 30.1 L (31.0-37.0) g/dL RDW 18.9 H (11.5-15.5) % Plt Count 548 H (150-450) k/uL Neutrophils # (Manual) (1.3-7.7) k/uL Metamyelocytes # (Man) (0) k/uL Myelocytes # (Manual) (0) k/uL ABG pH (7.35-7.45) ABG pO2 (83-108) mmHg ABG HCO3 (21-25) mmol/L ABG O2 Saturation (94-97) % Chloride (98-107) mmol/L Carbon Dioxide (22-30) mmol/L BUN (9-20) mg/dL Glucose (74-99) mg/dL POC Glucose (mg/dL) 145 H (75-99) mg/dL Calcium (8.4-10.2) mg/dL Crossmatch See Detail 11/14/21 11/15/21 11/15/21 Range/Units 23:40 00:08 04:35 WBC 21.4 H (3.8-10.6) k/uL RBC 2.64 L (4.30-5.90) m/uL Hgb 7.2 L (13.0-17.5) gm/dL Hct 23.2 L (39.0-53.0) % MCHC (31.0-37.0) g/dL RDW 18.1 H (11.5-15.5) % Plt Count 518 H (150-450) k/uL Neutrophils # (Manual) (1.3-7.7) k/uL Metamyelocytes # (Man) (0) k/uL Myelocytes # (Manual) (0) k/uL ABG pH (7.35-7.45) ABG pO2 (83-108) mmHg ABG HCO3 (21-25) mmol/L ABG O2 Saturation (94-97) % Chloride 118 H (98-107) mmol/L Carbon Dioxide 18 L (22-30) mmol/L BUN 29 H (9-20) mg/dL Glucose 145 H (74-99) mg/dL POC Glucose (mg/dL) 150 H (75-99) mg/dL Calcium 7.8 L (8.4-10.2) mg/dL Crossmatch 11/15/21 11/15/21 11/15/21 Range/Units 04:35 06:06 06:06 WBC 20.3 H (3.8-10.6) k/uL RBC 2.75 L (4.30-5.90) m/uL Hgb 7.3 L (13.0-17.5) gm/dL Hct 24.0 L (39.0-53.0) % MCHC 30.5 L (31.0-37.0) g/dL RDW 19.3 H (11.5-15.5) % Plt Count 516 H (150-450) k/uL Neutrophils # (Manual) 16.40 H (1.3-7.7) k/uL Metamyelocytes # (Man) 1.22 H (0) k/uL Myelocytes # (Manual) 0.41 H (0) k/uL ABG pH 7.34 L (7.35-7.45) ABG pO2 149 H (83-108) mmHg ABG HCO3 19 L (21-25) mmol/L ABG O2 Saturation 99.0 H (94-97) % Chloride (98-107) mmol/L Carbon Dioxide (22-30) mmol/L BUN (9-20) mg/dL Glucose (74-99) mg/dL POC Glucose (mg/dL) 154 H (75-99) mg/dL Calcium (8.4-10.2) mg/dL Crossmatch 11/15/21 Range/Units 11:43 WBC (3.8-10.6) k/uL RBC (4.30-5.90) m/uL Hgb (13.0-17.5) gm/dL Hct (39.0-53.0) % MCHC (31.0-37.0) g/dL RDW (11.5-15.5) % Plt Count (150-450) k/uL Neutrophils # (Manual) (1.3-7.7) k/uL Metamyelocytes # (Man) (0) k/uL Myelocytes # (Manual) (0) k/uL ABG pH (7.35-7.45) ABG pO2 (83-108) mmHg ABG HCO3 (21-25) mmol/L ABG O2 Saturation (94-97) % Chloride (98-107) mmol/L Carbon Dioxide (22-30) mmol/L BUN (9-20) mg/dL Glucose (74-99) mg/dL POC Glucose (mg/dL) 165 H (75-99) mg/dL Calcium (8.4-10.2) mg/dL Crossmatch Microbiology - Last 24 Hours (Table) 11/13/21 20:40 Gram Stain - Preliminary Aspirate Body Fluid Culture - Preliminary Gram Neg Bacilli Yeast species 11/10/21 18:03 Blood Culture - Preliminary Blood No Growth after 96 hours 11/08/21 09:54 Blood Culture - Final Blood No Growth after 144 hours
--- NOTE | 2021-11-15 14:02 | P.PN ---
Subjective Progress Note Date: 11/15/21 Patient was admitted for nausea vomiting diarrhea believed to have gastroenteritis. Patient continued to have vomiting and started having abdominal tenderness because of which CT of the abdomen was obtained which showed pneumatosis coli along with some gas in the venous system concern for ischemic bowel. Patient was started on Zosyn. Patient subsequently decompensated patient became hypotensive with BP of 60/40 transferred to ICU patient was given 3 L of boluses of IV fluid NG tube was placed which showed bloody output . Patient in septic shock and receiving norepinephrine at this time. Recent echo showed normal ejection fraction. Patient had CTA of the chest which was negative for pulmonary embolism patient creatinine has worsened and went up to 2.80 today from 1.14 yesterday and this is secondary to acute tubular necrosis from sepsis and septic shock. Patient does have lactic acidosi s, patient does have lactic acidosis with lactic acidosis 7.5. Patient will be given 1 L of IV fluids continue pressor support. he is intubated and sedated. 10/31/2021 Patient is started having urine output. Patient underwent a arthrotomy yesterday and found to have ischemia of the lateral portion of the stomach and ischemia of the proximal jejunum patient underwent partial gastrectomy. Patient is presently on that to pressors maximized on norepinephrine, patient is also on vasopressin receiving albumin, IV fluids started having minimal urine output patient was anuric last night. Patient's chloride is highly elevated leading to metabolic acidosis patient also has an anion gap metabolic acidosis from lactic acidosis which appears to be improving at this time patient's overall clinical condition is guarded and the prognosis is poor. Patient Y blood cell count went down in fact patient is neutropenic now. Patient is presently not receiving any nutrition at this time. 11/01/2021 Patient is seen in follow-up continues to be closely monitored in the ICU in critical condition. Multiple medical consultations including pulmonary mfg assoc, cardiology, surgery following closely. Patient is status post partial gastrectomy postop day #2. Patient continues on IV Zosyn along with normal saline at 75 ML per hour. Per nursing staff patient continues on Levophed along with vasopressin for pressor support. Patient not tolerating weaning very well to assess mentation. Patient continues on sedation of propofol and will continue. Chest x-ray today shows basilar atelectasis, may be associated effusion and to correlate to exclude pneumonia. Per nursing staff there has been minimal NG tube output and of note on the x-ray the distal tip of the NG tube is obscured although unable to fully see as there is overlying artifacts with the telemetry monitoring and the patient is rotated. Patient is also having hypoglycemic events and was started on dextrose. Surgery plans for TPN for nutritional support. Family at the bedside today and their questions and concerns were answered. 11/02/2021 Patient evaluated today in the ICU he is postoperative day #3 for partial gastrectomy, currently intubated with an FiO2 of 30% with a PEEP of 5. Current oxygen saturations are 99 to 100%. Blood pressures 119/61, respirations 28, heart rate 107, afebrile. Chest x-ray today shows a stable chest with pleural effusion unchanged, perihilar and basilar infiltrates persist. Per nurse about 500 mLs output from NG tube in the last 12 hours. Continues on IV lasix, TPN, IV zosyn. Pressor support and propfol are currently on hold. Blood pressures are maintaining 120s systolic, heart rate 113 sinus tachycardia, afebrile, respirations 27. Patient with indwelling catheter, urine is dark susana, per nurse no BM since surgery, bowels are absent left lower quadrant, hypoactive to the right quadrant. Labs today show white count 6, hemoglobin 8.6, sodium 142, potassium 3.9, chloride 124, CO2 15, BUN 41, creatinine 1.39, blood glucose in the 80s, calcium 7.2, total bili 1.7, AST 145, ALT 59. Patient is being followed closely by pulmonary, cardiology, and surgical services. 11/03/2021 Patient evaluated today and closely monitored in ICU remains in critical condition. Patient's been off sedation for 24 hours. He is currently spontaneous eye opening, eyes are tracking however he does not move his face, not following motor commands unable to wiggle fingers. Once patient is more a lert may tolerate extubation. He continues to be vented, Fi02 30% with a PEEP of 5 his current oxygen saturation 96%, blood pressure 112/74, heart rate sinus tachycardic in the low 100's, he has been afebrile. Patient has been in a negative fluid balance with -1.8 Liters in the last 24 hours and received 3 doses of IV lasix which is now discontinued. Bowel sounds are hypoactive, abdominal binder in place with dressings intact to midline incision, no bowel movements or passing gas as reported by RN. Creatinine slightly increased today to 1.44, BUN 37. No white count, hemoglobin stable at 8.2, platelets decreased to 40's for the last 2 days, heparin was discontinued, continues with SCD's. Liver enzymes stable from yesterday. Continues on D10 infusion, TPN, maintaining blood pressures off pressor support. Continues on IV zosyn. Chest xray today shows unchanged pleural effusion. Patient remains in the ICU followed closely by pulmonary, cardiology, and surgical services in critical condition. Code status was changed to DNR by family. 11/04/2021 Patient evaluated today in the intensive care unit, he is more alert than yesterday. Per RN patient had a large bowel movement today and bowels are hypoactive today in all quadrants. BM was a maroon color per nurse. Abdominal binder in place. Continues with rivas catheter with over 3L of urine output in the last 24 hours, still with peripheral edema. IV lasix 60 mg x1 was given today. NGT remains in place with only 50 mLs of output overnight. Patient remains off sedation, remains off pressor support. Blood pressure today 115/69, heart rate 106, low grade fever this morning 99.2 axillary, and patient was extubated mid morning is on a 15 L HF cannula. Chest xray this morning shows stable bilateral consolidation and pleural effusion. Remains on D10 gtt at 20 mLs per hour, TPN/Lipids, and IV zosyn. Patient also received potassium suppl ementation today. Followed closely by multiple consultations including cardiology, pulmonary, and surgery and remains in guarded condition. Labs reviewed: sodium 135, potassium 3.2, chloride 120, CO2 20, BUN 45, creat 1.26, blood glucose in the 110's, AST 81, ALT and alk phos have normalized. 11/05/2021 Patient is seen and evaluated in follow-up continues to be in the ICU under close monitoring. Patient was recently extubated and continues on 5 L high flow nasal cannula and oxygen saturations have been 97-100%. Multiple medical consultations including pulmonary [facility]fg ass[facility] and surgery following closely. Chest x-ray today shows removal of endotracheal tube along with NG tube and central venous catheter on the right remains in place with no evident pneumothorax and to correlate for pneumonia, congestive heart failure, possible effusions and associated atelectasis versus edema. Patient did receive a dose of IV Lasix yesterday. Neurology consulted and CT of the brain without contrast ordered to assess mentation which is currently pending. Patient is continued on D10 and water and maintaining blood sugars in the 120s and will continue current regimen. Hemoglobin is 7.7 today with no bleeding noted. Platelets on the lower side at 65 although improved from previous and will continue to monitor closely with repeat labs in the morning. Patient also continues on IV Zosyn and will continue at this time. 11/06/2021 Patient is seen in follow-up continues to be in the ICU with multiple medical consultations following. Patient was evaluated by neurology and EEG was ordered and pending. Patient underwent CT of the brain which showed no acute abnormality noted. Patient also had chest x-ray today which shows no significant interval change compared to yesterday with continued questionable pulmonary infiltration at the mid to lower lung zones and there is some congested pulmonary vasculature with bilateral pleural effusions. Patient had been receiving one-time doses of IV Lasix daily and will add scheduled 40 mg IV Lasix and recommend repeat labs and follow-up chest x-ray. Patient is tolerating 3 L high flow via nasal cannula and maintaining oxygen saturations above 97%. Patient continues with significant weakness and PT/OT therapy consulted to follow the patient daily. Patient noted to have increased output noted in the NG tube and general surgery following an plan is for CT abdomen with contrast this afternoon. Will await report. Continues to be nothing by mouth on TPN and will continue for now. 11/07/2021 Patient is seen and continues to be closely monitored in the ICU. Patient underwent CT abdomen and pelvis which shows some resolution of the previously seen gastric pneumatosis with mild wall thickening of the stomach with questionable minimal residual pneumatosis of the second and third part of the duodenum. There is noted 3 flow of the ingested oral contrast on the ileocecal junction with no evidence of contrast leak. There are slightly dilated small bowel loops measuring 3.3 cm with no definite transition point which may suggest an element of ileus. There is some diffuse bowel thickening of the diana nonspecific and fluid-filled colon with thickened wall that may suggest colitis. Also some moderate amount of free abdominal and pelvic fluid with peritoneal fat stranding and most probably related to postoperative changes although peritonitis cannot be excluded. There is a 2.8 cm gallbladder stone with no gallbladder wall thickening or gross signs of acute cholecystitis with no definite intrahepatic focal lesions identified. And there is some bilateral nasal pleural effusions and subsegmental pulmonary atelectasis demonstrating air bronchogram within. Patient is not currently on antibiotics and patient is afebrile. WBC is 8.4, hemoglobin is 7.9, BMP is noted and magnesium is 2.4, triglycerides found to be elevated at 256. Multiple medical consultations following and will continue to follow closely. All intake of fluids have been decreased to 70 mL per hour including TPN. Recommend follow-up chest x-ray in the morning. Nursing staff reports to a bowel movement yesterday although none today. 11/08/2021 Patient continues to be in the ICU being closely monitored. Patient to continue with NG tube as patient continues to have large amounts of output noted in the container. Patient did have a bowel movement yesterday along with today per nursing staff. Patient having some low-grade temps with T-max 101.5 and IV antibiotics in the form of Zosyn have been resumed. Patient continues on TPN and is currently nothing by mouth with NG tube continued. Patient currently receiving chest physiotherapy for continued secretions noted that patient is unable to expectorate. Would encourage incentive spirometer although patient is unable to perform. Duo nebs and updrafts also ordered. Recommend blood, sputum, and urine cultures which are currently pending. Recommend repeat labs. Chest x-ray is ordered. 11/11/2021 This is a patient who has had prolonged hospitalization secondary to ischemic bowel and sepsis and has undergone gastrectomy. Patient was recently transferred out of the ICU to the [facility] unit and had become more lethargic and unresponsive patient was found unresponsive and foaming at the mouth and a code was called. Case was discussed with ICU and patient being brought back to the ICU. Patient's CODE STATUS was addressed with family per nursing staff and brother is okay with intubating the patient. Patient's CODE STATUS is no code. Patient was placed on BiPAP although continued to progress and worsen and patient is currently being intubated by pulmonary mfg ass[facility]. Patient family also agreeable to pressor support and continuing current medications, per nursing just does not want CPR initiated. Chest x-ray this morning shows increased interstitial densities and increased small left pleural effusion now with more pronounced airspace disease in the retrocardiac region of the left base and correlate for pneumonia and developing pulmonary vascular congestion. Magnesium also low at 1.4 and being replaced. 11/12/2021 Patient is seen in follow-up continues to be closely monitored in the ICU continued under mechanical ventilation and is sedated. Multiple medical consultations including general surgery. Chest x-ray today shows bilateral infiltrates greater on the left with small left effusion correlate for interstitial pneumonitis versus congestion otherwise findings are stable. Patient is continued on IV antibiotics and awaiting for bronchial washings to finalize. Blood cultures have been negative. Patient continues to have low- grade intermittent temps and continues to be tachypneic. FiO2 is currently 40% with a PEEP of 5. No plans for extubation today. Per nursing staff there continues to be large amounts of output noted in the NG and appear maroon- colored in nature and again general surgery is following. Patient has not had any reported bowel movements per nursing staff since 11/08/2021. There are positive bowel sounds noted on exam and abdomen is soft. Patient underwent CT abdomen yesterday showing pleural effusions with extensive lower lobe pulmonary consolidation and atelectasis similar to old exam with abdominal ascites fluid slightly improved compared to last exam and there is evidence of mild small bowel ileus with no free air and cholelithiasis noted. There is subcutaneous emphysema which is mild around the abdomen and pelvis which is improved compared to last exam as well. 11/13/2021 Patient continues in the ICU in critical condition. Patient was brought back to surgery last night and is status post exploratory laparotomy, drainage of upper abdominal abscess, lysis of adhesions and small bowel resection. Patient continues with TPN and is NPO. Patient continues on mechanical vent with an FI02 of 40% and peep of 5. 2JP drains noted with bilious and serosanguineous fluid and [employer] noted with dark maroon colored drainage. Per nursing staff NG output has decreased. No bowel movements reported. Patient continues on Levophed as well. IV antibiotics as patient continues to be febrile. 11/14/2021 Patient is seen today continues to be closely monitored in the ICU remains on mechanical vent with sedation. FiO2 is 40% with a PEEP of 5. Patient continues to be followed by pulmonary mfg assoc along with general surgery. Per nursing staff copious amounts of drainage from the EBONY drain that is bilious most likely continued leak. NG tube continues to have output which appears more maroon and blood tinged and hemoglobin is down to be 6.5 and waiting to receive a unit of PRBC. Patient is afebrile today. Some of the bronchial washings showing Cortney albicans although preliminary and awaiting other cultures. Patient is also maintained on sodium bicarb drip along with fluconazole and Levophed is c urrently off. Patient continues on IV antibiotics in the form of Zosyn and will continue along with vancomycin. 11/15/2021 Patient is seen today in the ICU continues to be in critical condition being closely monitored. Patient remains on mechanical ventilation with an FiO2 of 40% and PEEP is 5. Patient continues on sodium bicarb drip along with sulconazole and Zosyn along with vancomycin and will continue. Patient continues to be sedated with propofol and has IV Dilaudid as needed. Patient continues with low-grade intermittent temps and preliminary body fluid cultures growing gram-negative bacilli and yeast species along with Cortney albicans. Awaiting finalized cultures. Patient off pressor support and maintaining adequate blood pressure. WBC mildly down at 20.3 and hemoglobin is 7.3 today. Per nursing staff there was a bowel movement noted that was bloody today. Sedation holidays being conducted to assess for possible weaning and extubation with neurology following as well. Chest x-ray today shows diffuse pleural parenchymal changes with bilateral consolidation and pleural effusions to correlate for pneumonia and CHF is not excluded. Overall prognosis is extremely guarded. Review of systems: Unable to obtain as patient is currently placed back on sedation and intubated Active Medications Albuterol/Ipratropium (Ipratropium-Albuterol 3 Ml Neb) 3 ml INHALATION RT-TID [facility] Last Admin: 11/15/21 12:27 Dose: 3 ml Documented by: Chlorhexidine Gluconate (Chlorhexidine Gluconate 15 Ml Cup) 15 ml MUCOUS MEM BID [facility] Last Admin: 11/15/21 10:41 Dose: 15 ml Documented by: Enoxaparin Sodium (Enoxaparin 40 Mg/0.4 Ml Syringe) 40 mg SQ DAILY [facility] Last Admin: 11/15/21 10:42 Dose: 40 mg Documented by: Hydromorphone HCl (Hydromorphone 0.5 Mg/0.5 Ml Syringe) 0.5 mg IVP Q3HR PRN PRN Reason: Pain Last Admin: 11/14/21 06:12 Dose: 0.5 mg Documented by: Propofol 1,000 mg/ IV Solution 100 mls @ 9.684 mls/hr IV .[id number] [facility]; Protocol Last Admin: 11/15/21 10:41 Dose: 50 mcg/kg/min, 24.21 mls/hr Documented by: Norepinephrine Bitartrate 8 mg (/ Sodium Chloride) 258 mls @ 7.808 mls/hr IV .Q24H [facility]; Protocol Last Titration: 11/14/21 09:32 Dose: 0 mcg/kg/min, 0 mls/hr Documented by: Acetaminophen 1,000 mg/ IV (Solution) 100 mls @ 400 mls/hr IVPB Q6HR PRN PRN Reason: Fever and/ or Pain Stop: 11/15/21 22:01 Last Admin: 11/13/21 12:10 Dose: 400 mls/hr Documented by: Vancomycin HCl 1,500 mg/ (Sodium Chloride) 250 mls @ 125 mls/hr IVPB Q12HR [facility] Last Admin: 11/15/21 10:41 Dose: 125 mls/hr Documented by: Fluconazole/Sodium Chloride (400 mg/ IV Solution) 200 mls @ 100 mls/hr IVPB DAILY [facility]; Protocol Last Admin: 11/15/21 10:41 Dose: 100 mls/hr Documented by: Sodium Bicarbonate 150 ml/ (Dextrose/Water) 1,150 mls @ 50 mls/hr IV .Q23H [facility] Last Admin: 11/15/21 10:44 Dose: 50 mls/hr Documented by: Potassium Acetate 40 meq/Calcium Gluconate 1 gm/ Amino Acids/Dextrose 1,030 mls @ 70 mls/hr IV .BY DURATION [facility] Last Admin: 11/15/21 05:03 Dose: 70 mls/hr Documented by: Parenteral Vitamin Supplement 10 ml/ Zinc/Copper/Manganese/Selenium 1 ml/ Potassium Acetate 40 meq/ Calcium Gluconate 1 gm/ Amino Acids/Dextrose 1,041 mls @ 70 mls/hr IV .BY DURATION [facility] Last Admin: 11/14/21 15:14 Dose: 70 mls/hr Documented by: Piperacillin Sod/Tazobactam (Sod 3.375 gm/ Sodium Chloride) 100 mls @ 25 mls/hr IVPB ONCE ONE; Protocol Stop: 11/15/21 14:59 Last Admin: 11/15/21 11:30 Dose: 25 mls/hr Documented by: Insulin Aspart (Insulin Aspart (Novolog) 100 Unit/Ml Vial) 0 unit SQ Q6HR [facility]; Protocol Last Admin: 11/15/21 11:53 Dose: 1 unit Documented by: Metoclopramide HCl (Metoclopramide 5 Mg/Ml 2 Ml Vial) 10 mg IVP Q6H [facility] Last Admin: 11/15/21 10:42 Dose: 10 mg Documented by: Miscellaneous Information (Potassium Replacement Protocol 1 Each Misc) 1 each MISCELLANE DAILY PRN; Protocol PRN Reason: Per Protocol Miscellaneous Information (Magnesium Replacement Protocol 1 Each Misc) 1 each MISCELLANE DAILY PRN; Protocol PRN Reason: Per Protocol Nystatin (Nystatin 100,000 Unit/Gm Powd 15 Gm) 1 applic TOPICAL DAILY PRN; Protocol PRN Reason: Rash Ondansetron HCl (Ondansetron 4 Mg/2 Ml Vial) 4 mg IVP Q8HR PRN PRN Reason: Nausea And Vomiting Last Admin: 10/30/21 09:30 Dose: 4 mg Documented by: Pantoprazole Sodium (Pantoprazole 40 Mg/10 Ml Vial) 40 mg IVP BID [facility] Last Admin: 11/15/21 10:42 Dose: 40 mg Documented by: PHYSICAL EXAMINATION: GENERAL: Patient is 51-year-old male who is autistic and currently sedated and intubated at this time, FiO2 is 40% with a PEEP of 5 HEENT: Pupils are round and equally reacting to light. EOMI. No scleral icterus. No conjunctival pallor. Normocephalic, atraumatic. No pharyngeal erythema. No thyromegaly. NG tube noted with dark maroon blood CARDIOVASCULAR: S1 and S2 muffled PULMONARY: Diminished breath sounds bilaterally with some scattered crackles and rhonchi noted ABDOMEN: Sluggish Bowel sounds noted on exam, abdominal binder and surgical dressing, 2 EBONY drains with one attached to suction on the wall with continued bilious drainage noted MUSCULOSKELETAL: No joint swelling or deformity. EXTREMITIES: No cyanosis, clubbing, generalized peripheral edema noted. NEUROLOGICAL: unable to assess as patient is intubated and sedated SKIN: No rashes. Assessment: -Sepsis, present on admission secondary to ischemia of the lateral portion of the stomach and mild ischemia of the proximal jejunum -Post operative partial gastrectomy for ischemic stomach and also had ischemic ileum. -Acute blood loss anemia, status post surgery continued bleeding noted and patient also did have bloody bowel movement, acute GI bleed -Acute hypoxic respiratory failure secondary to possible aspiration with acute left lower lobe pneumonia, requiring mechanical ventilator -Pneumoperitoneum, suspected gastric leak and section of proximal jejunum with ischemic changes status post exploratory laparotomy, drainage of upper abdominal abscess, lysis of adhesions and small bowel resection on 11/12/2021. -Septic shock status postoperatively -Anion gap metabolic acidosis secondary to lactic acidosis which improved, acidosis secondary to hyperchloremia -Acute renal failure secondary to acute blood loss from septic shock -History of CVA TIA -History diabetes mellitus type 2, uncontrolled -History of hypertension -History of autism -History of intellectual impairment -GI Prophylaxis Protonix -DVT Prophylaxis Subcu heparin -NO CODE Plan: Recommend to continue with ICU management and close monitoring. Patient is status post surgical intervention on 11/12/2021 secondary to pneumoperitoneum, suspected gastric leak and section of proximal jejunum with ischemic changes status post exploratory laparotomy, drainage of upper abdominal abscess, lysis of adhesions and small bowel resection. Patient is currently off pressor support and maintaining adequate blood pressure. Possible sedation holidays and weaning to monitor for possible extubation. Patient with bleeding noted out of the NG tube and nursing staff reported a bloody bowel movement. Patient is status post 2 units of PRBC and hemoglobin is 7.3. Patient continues on mechanical vent with an FiO2 of 40% and PEEP is 5. Patient is having intermittent low-grade temps today and continued on IV antibiotics and preliminary bronchial washing showing Cortney along with gram-negative bacilli and finalized cultures are pending. Patient continues to be in critical condition with extremely guarded and overall poor prognosis. This was again discussed with the brother at the bedside and will discuss further with other family members about possible comfort care. The impression and plan of care has been dictated by oRzina Nam, nurse practitioner as directed. Dr. Zee MD I have performed a history and physical examination and MDM of this patient, discussed the same with the dictator, and agree with the dictator's assessment and plan as written ,documented as a scribe. Based on total visit time, I have performed more than 50% of the visit. . Objective - Vital Signs Vital signs: Vital Signs Temp 99 F 11/15/21 00:00 Pulse 86 11/15/21 07:00 Resp 33 H 11/15/21 07:00 BP 115/58 11/15/21 05:00 Pulse Ox 97 11/15/21 07:00 Intake & Output 11/14/21 11/15/21 11/15/21 18:59 06:59 18:59 Intake Total 2520.390 1809.261 75.051 Output Total 2200 2465 Balance 320.390 -655.739 75.051 Weight 89.5 kg Intake: IV 1950 1300 Dextrose 5% in Water 1, 700 1300 000 ml @ 100 mls/hr IV . [id number] ROBERTO with Sodium Bicarb (1 Meq/ml) 150 ml Rx#:[id number] Fluconazole in NaCl,Iso- 200 Osm 400 mg In Saline 1 200ml.bag @ 100 mls/hr IVPB DAILY [facility] Rx#: [id number] Piperacillin-Tazobactam 3 200 .375 gm In Sodium Chloride 0.9% 100 ml @ 25 mls/hr IVPB Q8HR [facility] Rx# :[id number] Sodium Chloride 0.9% 1, 600 000 ml @ 150 mls/hr IV . Q6H40M [facility] Rx#:[id number] Vancomycin 1,500 mg In 250 Sodium Chloride 0.9% 250 ml @ 125 mls/hr IVPB Q12HR [facility] Rx#:[id number] Intake, IV Titration 285.390 199.261 75.051 Amount Norepinephrine 8 mg In 11.817 Sodium Chloride 0.9% 250 ml @ 0.05 MCG/KG/MIN 7. 808 mls/hr IV .Q24H [facility] Rx#:[id number] propofoL 1,000 mg In 273.573 199.261 75.051 Empty Bag 1 bag @ 20 MCG/ KG/MIN 9.684 mls/hr IV . Q40E04D [facility] Rx#:[id number] Oral 0 Blood Product 285 310 Rc Irr As1 Unit 0 310 [id number] Rc Pheresis 2 As3 Unit 285 [id number] Output: Gastric Drainage 900 1550 Drainage 350 40 Left Abdomen 350 20 Right Abdomen 20 Urine 950 875 Other: Voiding Method Indwelling Catheter Indwelling Catheter # Bowel Movements 1 1 ABP, PAP, CO, CI - Last Documented Arterial Blood Pressure 123/48 - Labs CBC & Chem 7: 11/15/21 04:35 11/15/21 04:35 Labs: Abnormal Lab Results - Last 24 Hours (Table) 11/11/21 11/14/21 11/14/21 Range/Units 19:05 08:11 08:11 WBC (3.8-10.6) k/uL RBC (4.30-5.90) m/uL Hgb (13.0-17.5) gm/dL Hct (39.0-53.0) % MCHC (31.0-37.0) g/dL RDW (11.5-15.5) % Plt Count (150-450) k/uL Neutrophils # (Manual) 17.40 H (1.3-7.7) k/uL Monocytes # (Manual) 1.07 H (0-1.0) k/uL Basophils # (Manual) 0.21 H (0-0.2) k/uL Metamyelocytes # (Man) 1.07 H (0) k/uL Myelocytes # (Manual) 0.85 H (0) k/uL ABG pH (7.35-7.45) ABG pO2 (83-108) mmHg ABG HCO3 (21-25) mmol/L ABG O2 Saturation (94-97) % Chloride 125 H (98-107) mmol/L Carbon Dioxide 14 L (22-30) mmol/L BUN 30 H (9-20) mg/dL Glucose 145 H (74-99) mg/dL POC Glucose (mg/dL) (75-99) mg/dL Calcium 7.7 L (8.4-10.2) mg/dL Phosphorus 4.6 H (2.5-4.5) mg/dL Total Bilirubin 2.0 H (0.2-1.3) mg/dL Total Protein 4.7 L (6.3-8.2) g/dL Albumin 1.6 L (3.5-5.0) g/dL Crossmatch See Detail 11/14/21 11/14/21 11/14/21 Range/Units 11:45 16:30 18:11 WBC 22.0 H (3.8-10.6) k/uL RBC 2.54 L (4.30-5.90) m/uL Hgb 6.8 L* (13.0-17.5) gm/dL Hct 22.5 L (39.0-53.0) % MCHC 30.1 L (31.0-37.0) g/dL RDW 18.9 H (11.5-15.5) % Plt Count 548 H (150-450) k/uL Neutrophils # (Manual) (1.3-7.7) k/uL Monocytes # (Manual) (0-1.0) k/uL Basophils # (Manual) (0-0.2) k/uL Metamyelocytes # (Man) (0) k/uL Myelocytes # (Manual) (0) k/uL ABG pH (7.35-7.45) ABG pO2 (83-108) mmHg ABG HCO3 (21-25) mmol/L ABG O2 Saturation (94-97) % Chloride (98-107) mmol/L Carbon Dioxide (22-30) mmol/L BUN (9-20) mg/dL Glucose (74-99) mg/dL POC Glucose (mg/dL) 151 H 145 H (75-99) mg/dL Calcium (8.4-10.2) mg/dL Phosphorus (2.5-4.5) mg/dL Total Bilirubin (0.2-1.3) mg/dL Total Protein (6.3-8.2) g/dL Albumin (3.5-5.0) g/dL Crossmatch 11/14/21 11/15/21 11/15/21 Range/Units 23:40 00:08 04:35 WBC 21.4 H (3.8-10.6) k/uL RBC 2.64 L (4.30-5.90) m/uL Hgb 7.2 L (13.0-17.5) gm/dL Hct 23.2 L (39.0-53.0) % MCHC (31.0-37.0) g/dL RDW 18.1 H (11.5-15.5) % Plt Count 518 H (150-450) k/uL Neutrophils # (Manual) (1.3-7.7) k/uL Monocytes # (Manual) (0-1.0) k/uL Basophils # (Manual) (0-0.2) k/uL Metamyelocytes # (Man) (0) k/uL Myelocytes # (Manual) (0) k/uL ABG pH (7.35-7.45) ABG pO2 (83-108) mmHg ABG HCO3 (21-25) mmol/L ABG O2 Saturation (94-97) % Chloride 118 H (98-107) mmol/L Carbon Dioxide 18 L (22-30) mmol/L BUN 29 H (9-20) mg/dL Glucose 145 H (74-99) mg/dL POC Glucose (mg/dL) 150 H (75-99) mg/dL Calcium 7.8 L (8.4-10.2) mg/dL Phosphorus (2.5-4.5) mg/dL Total Bilirubin (0.2-1.3) mg/dL Total Protein (6.3-8.2) g/dL Albumin (3.5-5.0) g/dL Crossmatch 11/15/21 11/15/21 11/15/21 Range/Units 04:35 06:06 06:06 WBC 20.3 H (3.8-10.6) k/uL RBC 2.75 L (4.30-5.90) m/uL Hgb 7.3 L (13.0-17.5) gm/dL Hct 24.0 L (39.0-53.0) % MCHC 30.5 L (31.0-37.0) g/dL RDW 19.3 H (11.5-15.5) % Plt Count 516 H (150-450) k/uL Neutrophils # (Manual) 16.40 H (1.3-7.7) k/uL Monocytes # (Manual) (0-1.0) k/uL Basophils # (Manual) (0-0.2) k/uL Metamyelocytes # (Man) 1.22 H (0) k/uL Myelocytes # (Manual) 0.41 H (0) k/uL ABG pH 7.34 L (7.35-7.45) ABG pO2 149 H (83-108) mmHg ABG HCO3 19 L (21-25) mmol/L ABG O2 Saturation 99.0 H (94-97) % Chloride (98-107) mmol/L Carbon Dioxide (22-30) mmol/L BUN (9-20) mg/dL Glucose (74-99) mg/dL POC Glucose (mg/dL) 154 H (75-99) mg/dL Calcium (8.4-10.2) mg/dL Phosphorus (2.5-4.5) mg/dL Total Bilirubin (0.2-1.3) mg/dL Total Protein (6.3-8.2) g/dL Albumin (3.5-5.0) g/dL Crossmatch Microbiology - Last 24 Hours (Table) 11/13/21 20:40 Gram Stain - Preliminary Aspirate Body Fluid Culture - Preliminary 11/10/21 18:03 Blood Culture - Preliminary Blood No Growth after 96 hours 11/08/21 09:54 Blood Culture - Final Blood No Growth after 144 hours
--- NOTE | 2021-11-15 14:40 | P.PN ---
Subjective Progress Note Date: 11/15/21 On the morning of 11/11/2021, the patient became acutely short of breath and the patient got transferred to the intensive care unit. The patient is known to me and I think in care of this patient last week as the patient had a extensive gastric surgery with partial gastrectomy , and the patient is postop day #12. The patient was taken to the operating room and the patient was found to have ischemia of the lateral portion of the stomach and mild/minimal ischemia of the proximal jejunum. The patient underwent a exploratory laparotomy and the patient underwent a partial gastrectomyand postop, the patient was treated for multisystem organ failure on his condition was stabilized and he got to point where the patient was extubated and he was transferred to a medical floor. Nevertheless, he was still maintained nothing by mouth. NG tube was still in place. The patient was receiving TPN for nutritional support. The patient was noted to be more lethargic yesterday. Overnight, the patient became unresponsive above and beyond his baseline knowing that he has baseline mental retardation. He was having also coarse breath sounds bilaterally and he was also found to be foaming at the mouth and he was having moderate degree of respiratory distress. Subsequently, he became more hypotensive, hypoxic and he was placed on a nonrebreather facemask and he was found to be febrile with tempe rature 103.2. At that point, the patient got transferred to the intensive care unit. Once in the ICU, the patient was placed On a BiPAP at a pressure of 14/6 cm of water with an FiO2 of 50%. His current meds ventilation is around 33. Respiratory rate is quite elevated at around above 50. He was hypotensive initially and he was given IV fluids total of 2 L of normal saline in the coming blood pressure is 108/69. His heart rate is sinus at the rate of 113. He is on a maintenance IV fluids with 0.9 and this will be increased to be related 150 mL an hour. Urine output is minimal at this point in time his blood work from this morning is showing an acute kidney injury in the creatinine is up to 1.49 with a BUN of 36 and the sodium level of 141. The white cell count is also elevated at 16.3. The incision over the abdomen looks dry clean and intact. Bowel sounds are hypoactive. NG tube is in place and it has drained approximately 400 mL since arrival to the intensive care unit. I was told that the angina but was quite elevated in order of 800 mL every 8 hours. On examination, the patient is unresponsive. He is not following any commands. His breathing is very much limited and he has coarse breath sounds on throughout the lung barkley bilaterally. He remains on IV Zosyn. He remains on TPN for nutritional support. His causes status is DO NOT RESUSCITATE/DO NOT INTUBATE. On 11/12/2021, the patient is intubated on a mechanical ventilator. Note that the patient is postop day #13 after his initial surgery which included a partial gastrectomy and this was done for an acute abdomen. At that time, the patient was found to have gastric ischemia/necrosis and he required extensive surgery for ischemia of the lateral portion of the stomach and ischemic changes in the proximal jejunum. In any rate, the patient got transferred to the ICU yesterday because of acute hypoxic respiratory failure, acute tachypnea, shortness of breath, and drop in urine output. Immediately, the patient was intubated and placed on a mechanical ventilator. Post intubation, the patient underwent a bronchoscopy which revealed copious amount of rest or secretions in the upper airway and in the lungs bilaterally more so on the left. At that point, bronchoscopy was done and therapeutic it was suctioning was done. The lavage was sent for cultures from the left lower lobe and the results are still pending for now. Meanwhile, the patient underwent a computed tomography scan of the c hest and abdomen and this was completed yesterday and based on the findings, the patient has evidence of bilateral pulmonary infiltrates most on the left lower lobe consistent with pneumonia. The patient also had some pleural effusion on the left. There was consolidation of the lung bases/atelectasis. There was abdominal ascites that had improved. There was evidence of mild small bowel ileus. There was also evidence of subcutaneous edema as expected. Case was discussed with general surgery. No role for any surgical intervention this point in time. Hemoglobin was low at 5.6.5 and the patient was given packed RBC transfusion 1. Morning hemoglobin is at 7.3. Meanwhile, the patient is sedated at and the patient is currently on propofol running at 50 mcg/kg per minute and the patient is on a mechanical ventilator. This morning, is on assist control of 28, tidal volume of 400, FiO2 of 50% with a PEEP of 5. Chest x-ray showing left lower lobe atelectasis/consolidation. Blood gas shows a pH of 7.34 with a pCO2 of 36 and pO2 of 163. NG tube is in place. Output is been in order of 500 mL over the past 8 hours. The output was somewhat bloody/blood- tinged. No ion blood. No blood clots. No coffee-ground material. Patient continues to be on TPN for nutritional support. Antibiotic coverage includes a combination of Zosyn and vancomycin was also added yesterday due to concern of an underlying staphylococcal superinfection. Note that the patient was febrile overnight and currently is afebrile. Creatinine is improving and creatinine is down to 1.17. The patient was resuscitated aggressively with IV fluids. He was given a total of 3 L of fluid yesterday. His creatinine is down to 1.1 and the BUN is down to 38. Serum bicarb is at 17 with a sodium level of 142. Current maintenance IV fluids in the form of normal saline at the rate of 150 mL an hour. Overall fluid balance since yesterday has been in the order of +5.9 L. The patient is not requiring any pressors for now. Blood pressure is improved. Urine output is also improved. 11/13/2021, I'm seeing the patient for a follow-up. Note that the patient had another surgical exploration yesterday. Upon review of his CAT scan of the abdomen, there was evidence of fluid collection and possible/questionable gastric leak and no paratonia. Case was discussed with a general surgeon. Case was discussed with the family. It was decided to take the patient back to the operating room for another exploration. The patient intraoperatively was found to have abdominal fluid/abscess that was drained. There was less of adhesion. Upon further inspection, a portion of the jejunum was ischemic and was resected. Estimated blood loss was around 100 mL. The patient was brought back to the ICU after surgical wound closure. For now, the patient is still on a mechanical ventilator. EBONY drain is in place and output has been in the order of 100 mL since his arrival from the operating room and this is essentially serosanguineous. Output from the NG tube has dropped since yesterday. Output is minimal at this point in time. The patient is sedated on propofol and currently propofol is running at 50 mcg/kg per minute. The patient is well sedated. He remains on a mechanical ventilator at assist control of 28, tidal volume of 400, FiO2 of 40% with a PEEP of 5. Blood gas shows a pH of 7.33 with a pCO2 of 33 and pO2 of 130. Chest x-ray showed improvement of bilateral pleural effusions and atelectatic changes in lung bases more so on the right. ET tube is in a good location. The patient also has an NG tube which is also in good location. Note that overnight, the patient was becoming progressively more hypotensive. I gave him a total of 3 L of IV fluid boluses and his overall fluid balance is positive at least 8 L over the past 24 hours. Meanwhile, the patient was also started on pressors. Currently is on norepinephrine running at 0.1 mcg/kg per minute. White cell count is up to 20.4 with a hemoglobin 0.0. His creatinine today is at 0.9 with a mean of 29 and a serum bicarbonate of 17 with a sodium level of 139. His antibiotic coverage remains a combination of Zosyn and vancomycin. The patient is also on TPN for nutritional support. Urine output is in order of 60 mL an hour. His CODE STATUS has been going back in 4 between full and no cords. For now, he is a no code with exception of mechanical ventilation. Noted the patient also received a unit of packed RBC pr eoperatively yesterday. At the same time, the patient is febrile and he is receiving IV Tylenol regarding his episodic fever. 11/14/2021, patient is being seen for a follow-up. Active issue for now as the excessive amount of drainage from the EBONY drain draining the gastric leak. Output has been in the order of 1300 mL over the past 12 hours. The second EBONY drain in the lower abdomen is draining minimal amounts. The patient is currently off pressors. The concern is ongoing gastric leak at this point in time. The patient is sedated on propofol and propofol is running at 50 mcg/kg per minute. The patient is on normal saline at the rate of 150s an hour the patient is also on TPN at the rate of 70 mL an hour. The patient remains on a mechanical ventilator. This morning, he is on assist control mode with a tidal volume of 400, rate of 28, FiO2 40% with a PEEP of 5. The blood gas shows a pH of 7.25 with a pCO2 of 34 and pO2 132. Chest x-ray showing atelectatic changes and infiltrates in lung bases. ET tube is in a good location. No free air under the diaphragm. Note that the patient is currently off the pressors. Meanwhile, the patient has a white cell count is currently at 21.3 with a hemoglobin of 6.5. The platelet counts at 644, the patient also has a BUN of 30 with a creatinine of 1.1, serum bicarb is at 14 and the patient has a non-anion gap metabolic acidosis with a potassium level of 5 and a sodium level of 141. Glucose level is at 151. LFTs are normal. The patient remains on a combination of Zosyn and vancomycin. Cultures from the bronchioloalveolar lavage was positive for Cortney albicans. Respiratory cultures are all negative. Body fluid cultures are still pending for now. The patient obviously is nothing by mouth. The patient on TPN for nutritional support. On no pressors for now. A order was given for another unit of packed RBC transfusion. Discussed the case with a general surgeon. Prognosis remains extremely poor baseline above-men tioned comorbidities. 11/15/2021, seeing the patient for a follow-up. I had a discussion with the patient's family was decided to proceed the ongoing care of this patient. Noted the patient complicated surgeries of the abdomen 2. The second surgery was done and the patient was found to have ischemic jejunum that was resected and the patient was found to have a gastric leak. This morning, the patient is on mechanical ventilator. Propofol which is running at 50 mg/kg per minute. The patient is also on a bicarb infusion running at 100 mL an hour. The patient remains on a mechanical ventilator. On today's evaluation, the patient and a tidal volume of 400, rate of 28, FiO2 40% with a PEEP of 5. The patient has a blood gas that showed a pH of 7.34 with a pCO2 of 35 and pO2 of 149 and the above-mentioned ventilator setting. The chest x-ray showing no acute abnormalities. ET tube is in a good location. Some chronic atelectatic changes are seen in lung bases bilaterally. Meanwhile, the patient has an NG tube in place. Output is considerably high in the order of 100 mL an hour. The left- sided EBONY drain has not drain a whole lot probably 26 over the past 8 hours and the patient is offered through the right-sided EBONY. This surgical wound site is dry clean and intact. The wound is packed and the patient has retention sutures in place.. The patient meanwhile is covered with broad-spectrum antibiotics. For now, the patient on a combination of Zosyn, Diflucan and vancomycin. Multiple cultures were obtained. The most recent cultures from the abdominal body fluid showed yeast species and gram-negative bacillus. And this may buffing turner and counter to be a candidal species. Meanwhile, the cultures that were obtained from the lungs are also positive for Cortney albicans. The patient is on TPN for nutritional support. The patient is an adequate urine output. The echoes of 20.3 with a hemoglobin of 7.3. The creatinine is down to 1.22 with a BUN of 29 and a sodium level of 139. No other significant atelectatic abnormalities. The patient's non-anion gap metabolic acidosis improving while the patient is a bicarb drip and the patient's serum bicarb is up to 18. Objective - Vital Signs Vital signs: Vital Signs Temp 99.3 F 11/15/21 12:00 Pulse 82 11/15/21 12:28 Resp 29 H 11/15/21 12:00 BP 115/58 11/15/21 05:00 Pulse Ox 97 11/15/21 12:00 Intake & Output 11/14/21 11/15/21 11/15/21 18:59 06:59 18:59 Intake Total 2520.390 6120.208 9133.909 Output Total 2200 2465 800 Balance 320.390 -655.739 680.909 Weight 89.5 kg 89.5 kg Intake: IV 1950 1300 1330 Dextrose 5% in Water 1, 700 1300 500 000 ml @ 50 mls/hr IV . Q23H [facility] with Sodium Bicarb (1 Meq/ml) 150 ml Rx#:[id number] Fluconazole in NaCl,Iso- 200 200 Osm 400 mg In Saline 1 200ml.bag @ 100 mls/hr IVPB DAILY [facility] Rx#: [id number] Piperacillin-Tazobactam 3 200 100 .375 gm In Sodium Chloride 0.9% 100 ml @ 25 mls/hr IVPB Q8HR [facility] Rx# :[id number] Sodium Chloride 0.9% 1, 600 000 ml @ 150 mls/hr IV . Q6H40M [facility] Rx#:[id number] TPN 280 Vancomycin 1,500 mg In 250 250 Sodium Chloride 0.9% 250 ml @ 125 mls/hr IVPB Q12HR [facility] Rx#:[id number] Intake, IV Titration 285.390 199.261 150.909 Amount Norepinephrine 8 mg In 11.817 Sodium Chloride 0.9% 250 ml @ 0.05 MCG/KG/MIN 7. 808 mls/hr IV .Q24H [facility] Rx#:[id number] propofoL 1,000 mg In 273.573 199.261 150.909 Empty Bag 1 bag @ 20 MCG/ KG/MIN 9.684 mls/hr IV . [id number] [facility] Rx#:[id number] Oral 0 Blood Product 285 310 Rc Irr As1 Unit 0 310 [id number] Rc Pheresis 2 As3 Unit 285 [id number] Output: Gastric Drainage 900 1550 Drainage 350 40 Left Abdomen 350 20 Right Abdomen 20 Urine 950 875 800 Other: Voiding Method Indwelling Catheter Indwelling Catheter # Bowel Movements 1 1 ABP, PAP, CO, CI - Last Documented Arterial Blood Pressure 143/56 - Exam GENERAL: Patient is responsive, breathing is comfortable and the patient is currently sedated with propofol and his quite successful mechanical ventilator. No tachypnea. No use of excessive muscle breathing. NGgastric and orotracheal tube are both in place. Head exam was generally normal. There was no scleral icterus or corneal arcus. Mucous membranes were moist. HEENT: Pupils are round and equally reacting to light. EOMI. No scleral icterus. No conjunctival pallor. Normocephalic, atraumatic. No pharyngeal erythema. No thyromegaly. Orogastric and orotracheal tube are both in place. CARDIOVASCULAR: S1 and S2 present. No murmurs, rubs, or gallops. PULMONARY: Diffuse rhonchi heard throughout the lung barkley bilaterally. The patient has diminished breath on the left lung base. ABDOMEN: Absent bowel sounds and the surgical wound site over the mid abdomen is dry clean and intact. No direct tenderness. No rebound tenderness. No guarding. No organomegaly. The surgical wound site over the abdominal wall is dry clean and intact. NG tube is in place. Bowel sounds remain absent. The patient has a EBONY drain in her right lower abdomen drain minimal amount another EBONY drain in the left draining the stomach area and the area of gastric leak and output is around 1300 ML's over the past 12 hours. Patient also has an NG tube in place with some blood liquidy material in the order of 200 mL over the past 24 hours. MUSCULOSKELETAL: No joint swelling or deformity. EXTREMITIES: Extremities are cold and clammy and there are diminished pulses in all 4 extremities. No cyanosis. No clubbing. NEUROLOGICAL still somnolent and lethargic, not grimacing to deep painful stimulation. Not following commands and the patient is currently sedated with propofol. Examination of the skin revealed no evidence of significant rashes, suspicious appearing nevi or other concerning lesions. - Labs CBC & Chem 7: 11/15/21 04:35 11/15/21 04:35 Labs: Abnormal Lab Results - Last 24 Hours (Table) 11/11/21 11/14/21 11/14/21 Range/Units 19:05 16:30 18:11 WBC 22.0 H (3.8-10.6) k/uL RBC 2.54 L (4.30-5.90) m/uL Hgb 6.8 L* (13.0-17.5) gm/dL Hct 22.5 L (39.0-53.0) % MCHC 30.1 L (31.0-37.0) g/dL RDW 18.9 H (11.5-15.5) % Plt Count 548 H (150-450) k/uL Neutrophils # (Manual) (1.3-7.7) k/uL Metamyelocytes # (Man) (0) k/uL Myelocytes # (Manual) (0) k/uL ABG pH (7.35-7.45) ABG pO2 (83-108) mmHg ABG HCO3 (21-25) mmol/L ABG O2 Saturation (94-97) % Chloride (98-107) mmol/L Carbon Dioxide (22-30) mmol/L BUN (9-20) mg/dL Glucose (74-99) mg/dL POC Glucose (mg/dL) 145 H (75-99) mg/dL Calcium (8.4-10.2) mg/dL Crossmatch See Detail 11/14/21 11/15/21 11/15/21 Range/Units 23:40 00:08 04:35 WBC 21.4 H (3.8-10.6) k/uL RBC 2.64 L (4.30-5.90) m/uL Hgb 7.2 L (13.0-17.5) gm/dL Hct 23.2 L (39.0-53.0) % MCHC (31.0-37.0) g/dL RDW 18.1 H (11.5-15.5) % Plt Count 518 H (150-450) k/uL Neutrophils # (Manual) (1.3-7.7) k/uL Metamyelocytes # (Man) (0) k/uL Myelocytes # (Manual) (0) k/uL ABG pH (7.35-7.45) ABG pO2 (83-108) mmHg ABG HCO3 (21-25) mmol/L ABG O2 Saturation (94-97) % Chloride 118 H (98-107) mmol/L Carbon Dioxide 18 L (22-30) mmol/L BUN 29 H (9-20) mg/dL Glucose 145 H (74-99) mg/dL POC Glucose (mg/dL) 150 H (75-99) mg/dL Calcium 7.8 L (8.4-10.2) mg/dL Crossmatch 11/15/21 11/15/21 11/15/21 Range/Units 04:35 06:06 06:06 WBC 20.3 H (3.8-10.6) k/uL RBC 2.75 L (4.30-5.90) m/uL Hgb 7.3 L (13.0-17.5) gm/dL Hct 24.0 L (39.0-53.0) % MCHC 30.5 L (31.0-37.0) g/dL RDW 19.3 H (11.5-15.5) % Plt Count 516 H (150-450) k/uL Neutrophils # (Manual) 16.40 H (1.3-7.7) k/uL Metamyelocytes # (Man) 1.22 H (0) k/uL Myelocytes # (Manual) 0.41 H (0) k/uL ABG pH 7.34 L (7.35-7.45) ABG pO2 149 H (83-108) mmHg ABG HCO3 19 L (21-25) mmol/L ABG O2 Saturation 99.0 H (94-97) % Chloride (98-107) mmol/L Carbon Dioxide (22-30) mmol/L BUN (9-20) mg/dL Glucose (74-99) mg/dL POC Glucose (mg/dL) 154 H (75-99) mg/dL Calcium (8.4-10.2) mg/dL Crossmatch 11/15/21 Range/Units 11:43 WBC (3.8-10.6) k/uL RBC (4.30-5.90) m/uL Hgb (13.0-17.5) gm/dL Hct (39.0-53.0) % MCHC (31.0-37.0) g/dL RDW (11.5-15.5) % Plt Count (150-450) k/uL Neutrophils # (Manual) (1.3-7.7) k/uL Metamyelocytes # (Man) (0) k/uL Myelocytes # (Manual) (0) k/uL ABG pH (7.35-7.45) ABG pO2 (83-108) mmHg ABG HCO3 (21-25) mmol/L ABG O2 Saturation (94-97) % Chloride (98-107) mmol/L Carbon Dioxide (22-30) mmol/L BUN (9-20) mg/dL Glucose (74-99) mg/dL POC Glucose (mg/dL) 165 H (75-99) mg/dL Calcium (8.4-10.2) mg/dL Crossmatch Microbiology - Last 24 Hours (Table) 11/11/21 12:00 Fungal Culture - Preliminary Bronchial Washings - Random Cortney albicans 11/11/21 12:30 Fungal Culture - Preliminary Bronchial Washings - Random Cortney albicans 11/13/21 20:40 Gram Stain - Preliminary Aspirate Body Fluid Culture - Preliminary Gram Neg Bacilli Yeast species 11/10/21 18:03 Blood Culture - Preliminary Blood No Growth after 96 hours 11/08/21 09:54 Blood Culture - Final Blood No Growth after 144 hours Assessment and Plan Plan: 1 partial gastrectomy as the patient was found to have ischemic anterior gastric wall with questionable small bowel ischemia. The patient underwent partial gastrectomy and the patient is postop day #16. Following that, CAT scan of the abdomen and chest was done and it showed pneumoperitoneum suspicious for gastric leak. Further investigation with another expiratory laparotomy that was done yesterday showed evidence of intra-abdominal abscesses that was drained and the patient was found to have ischemic small bowel, involving the jejunum that was resected surgically. Patient is postop day #3 following exploratory laparotomy, lysis of adhesions and partial small bowel resection. The patient continues to have an NG tube in place with a high output. Output from the left-sided EBONY drain which drains the gastric leak is minimal at this point in time. The right-sided EBONY drain is not putting out a lot. The patient has REM negative bacillus and yeast in the abdominal fluid. The patient is covered with broad- spectrum antibiotics. Surgical wound site dry clean and intact. The patient has retention sutures. EBONY drains are all in place. Hemodynamically stable. 2 acute pneumonia with left lower lobe consolidation/atelectasis and copious amount of rest or secretions post bronchoscopy and therapeutic it was suctioning and lavage of the left lower lobe. Cultures indicating Cortney albicans. No other microbial growth otherwise for now. The respiratory status is stable and the patient is currently on a mechanical ventilator. Oxygenation is improved significantly. There are some atelectatic changes in lung bases bilaterally. 3 acute hypotension/septic shock, improved and the patient's blood pressure is normalized and the patient is currently off pressors, and the patient remains off pressors 3 acute lactic acidosis, secondary to above, improved, lactic acid level was 3.8 yesterday and this morning is down to 1.5 4 acute kidney injury, improved in the creatinine is normalized 5 leukocytosis secondary to above 6 diabetes mellitus 7 hypertension 8 Developmental delay and autism 11 Acute blood loss anemia, expected outcome post gastric surgery and small bowel resection. The patient received a unit of packed RBC yesterday. The subsequent hemoglobin is at 6.5 and the patient is going to receive another unit of packed RBC 12 history of CVA events. No vent changes Plan Continue ventilator support Sedation holiday and assess the patient's mental status Continue bicarb infusion for another 24 hours and monitor serum bicarb level Continued IV Zosyn and vanco, and add Diflucan based on ongoing history of gastric leak The results of the BAL was possible Cortney albicans Abdominal fluid showing yeast and gram-negative bacillus Continue TPN for nutritional support No pressors for now Check echocardiogram done on 10/29/2032 showed an ejection fraction of 60-65% Keep the patient nothing by mouth Continue TPN for nutritional support Monitor the white cell count, monitor the renal function DNR Monitor the abdominal wound Critically care evaluation that was done more than 30 minutes
[2021-11-15] MEDS: NOREPINEPHRINE 8 MG in SODIUM CHLORIDE 0.9% 250 ML IV SCH (17:37)
[2021-11-15 17:45] LABS: Glucose,Whole Blood 138 mg/dL (75-99)
[2021-11-15] MEDS ORDERED: [UNRECOGNIZED DRUG - OTHER] IV SCH ×5 (19:00)
[2021-11-15] MEDS ORDERED: AMINO ACID 5% IV SCH ×5 (19:00)
[2021-11-15] MEDS ORDERED: CALCIUM GLUCONATE IV SCH ×5 (19:00)
[2021-11-15] MEDS ORDERED: POTASSIUM ACETATE IV SCH ×5 (19:00)
[2021-11-16 00:11] LABS: Glucose,Whole Blood 134 mg/dL (75-99)
[2021-11-16] MEDS: INSULIN ASPART (NovoLOG) 100 UNIT/ML VIAL SQ SCH ×4 (00:50→17:49)
[2021-11-16] MEDS: METOCLOPRAMIDE 5 MG/ML 2 ML VIAL IVP SCH ×4 (04:25→20:08)
[2021-11-16 05:05] LABS: Anisocytosis Slight; HCT 22.9 % (39.0-53.0); HGB 7.1 gm/dL (13.0-17.5); Hypochromasia Marked; MCH 27.1 pg (25.0-35.0); MCV 87.3 fL (80.0-100.0); Mean Platelet Volume 8.3; Platelet Count 522 k/uL (150-450); Poikilocytosis Slight; RBC 2.62 m/uL (4.30-5.90); RDW 18.8 % (11.5-15.5); WBC 22.8 k/uL (3.8-10.6)
[2021-11-16 05:10] LABS: Calcium 8.1 mg/dL (8.4-10.2); Magnesium 2.1 mg/dL (1.6-2.3); Phosphorus 4.1 mg/dL (2.5-4.5); Potassium 4.4 mmol/L (3.5-5.1)
[2021-11-16 06:13] LABS: ABG Base Excess -5.7 mmol/L; ABG HCO3 20 mmol/L (21-25); ABG Oxygen Saturation 98.7 % (94-97); ABG PCO2 36 mmHg (35-45); ABG PH 7.35 (7.35-7.45); ABG PO2 148 mmHg (83-108); ABG TCO2 21 mmol/L (19-24); Allen Test Performed? Yes
--- NOTE | 2021-11-16 06:39 | XR ---
EXAMINATION TYPE: XR chest 1V portable DATE OF EXAM: 11/16/2021 CLINICAL HISTORY: Difficulty breathing progress study. TECHNIQUE: Single AP portable semiupright view of the chest is obtained. COMPARISON: Chest x-ray from one day earlier and older studies. FINDINGS: Stable endotracheal and orogastric tubes. Stable right internal jugular central venous cat heter. Cardiac silhouette size stable and mildly enlarged. Persistent mild central vascular congestion and b ibasilar opacities. Upper lungs remain clear without pneumothorax. Osseous structures are intact. IMPRESSION: Findings favor CHF exacerbation as there is mild cardiomegaly with mild central vascular congestion and suspected small bilateral pleural effusions with associated bibasilar atelectasis and/ or less likely acute infiltrates. Correlate clinically. No significant change from one day earlier.
[2021-11-16] MEDS: IPRATROPIUM-ALBUTEROL 3 ML NEB INHALATION SCH ×3 (09:27→19:18)
[2021-11-16] MEDS: FLUCONAZOLE IN NACL,ISO-OSM 400 MG in SALINE 1 200ML.BAG IVPB SCH (09:49)
[2021-11-16] MEDS: PANTOPRAZOLE 40 MG/10 ML VIAL IVP SCH ×2 (09:49→20:09)
[2021-11-16] MEDS: CHLORHEXIDINE GLUCONATE 15 ML CUP MUCOUS MEM SCH ×2 (09:49→22:09)
[2021-11-16] MEDS: FUROSEMIDE 10 MG/ML 4 ML VIAL IV SCH ×2 (09:49→20:09)
[2021-11-16] MEDS: DEXTROSE 5% IN WATER 1,000 ML with SODIUM BICARB (1 MEQ/ML) 150 ML IV SCH (09:50)
[2021-11-16] MEDS: PIPERACILLIN-TAZOBACTAM 3.375 GM in SODIUM CHLORIDE 0.9% 100 ML IVPB SCH ×3 (09:50→23:52)
[2021-11-16] MEDS: [UNRECOGNIZED DRUG - OTHER] IV SCH ×10 (09:51→23:22)
[2021-11-16] MEDS: POTASSIUM ACETATE IV SCH ×10 (09:51→23:22)
[2021-11-16] MEDS: AMINO ACID 5% IV SCH ×10 (09:51→23:22)
[2021-11-16] MEDS: CALCIUM GLUCONATE IV SCH ×10 (09:51→23:22)
[2021-11-16] MEDS: ENOXAPARIN 40 MG/0.4 ML SYRINGE SQ SCH (09:52)
--- NOTE | 2021-11-16 10:52 | P.PN ---
Progress Note - Text Progress Note Date: 11/16/21 The patient has improved. He is currently partially awake on the ventilator. Overall he has become hemodynamically stable. He still has significant nasogastric tube output. His EBONY drain output has diminished. He has had good urine output. Abdomen is soft. Wound is clean. Status post small bowel resection, gastric resection. Patient's sepsis is slowly improving. He will continue receive supportive care.
[2021-11-16 10:56] LABS: ABG Base Excess -5.1 mmol/L; ABG HCO3 20 mmol/L (21-25); ABG Oxygen Saturation 98.7 % (94-97); ABG PCO2 34 mmHg (35-45); ABG PH 7.38 (7.35-7.45); ABG PO2 128 mmHg (83-108); ABG TCO2 21 mmol/L (19-24)
[2021-11-16 10:59] LABS: Allen Test Performed? n o
[2021-11-16] MEDS: HYDROmorphone 0.5 MG/0.5 ML SYRINGE IVP PRN (11:29)
[2021-11-16] MEDS ORDERED: ATROPINE OPHTH SOLN 1% 5ML BTL SUBLINGUAL PRN (11:53)
[2021-11-16 11:57] LABS: Glucose,Whole Blood 141 mg/dL (75-99)
[2021-11-16] MEDS: ONDANSETRON 4 MG/2 ML VIAL IVP PRN (12:00)
[2021-11-16] MEDS: DEXMEDETOMIDINE/0.9% NACL(PMX) 400 MCG in EMPTY BAG 1 BAG IV SCH ×2 (12:20→22:33)
[2021-11-16] MEDS: SCOPOLAMINE 1 MG/72 HR PATCH TRANSDERM SCH (12:37)
--- NOTE | 2021-11-16 12:51 | P.PN ---
Subjective Progress Note Date: 11/16/21 On the morning of 11/11/2021, the patient became acutely short of breath and the patient got transferred to the intensive care unit. The patient is known to me and I think in care of this patient last week as the patient had a extensive gastric surgery with partial gastrectomy , and the patient is postop day #12. The patient was taken to the operating room and the patient was found to have ischemia of the lateral portion of the stomach and mild/minimal ischemia of the proximal jejunum. The patient underwent a exploratory laparotomy and the patient underwent a partial gastrectomyand postop, the patient was treated for multisystem organ failure on his condition was stabilized and he got to point where the patient was extubated and he was transferred to a medical floor. Nevertheless, he was still maintained nothing by mouth. NG tube was still in place. The patient was receiving TPN for nutritional support. The patient was noted to be more lethargic yesterday. Overnight, the patient became unresponsive above and beyond his baseline knowing that he has baseline mental retardation. He was having also coarse breath sounds bilaterally and he was also found to be foaming at the mouth and he was having moderate degree of respiratory distress. Subsequently, he became more hypotensive, hypoxic and he was placed on a nonrebreather facemask and he was found to be febrile with tempe rature 103.2. At that point, the patient got transferred to the intensive care unit. Once in the ICU, the patient was placed On a BiPAP at a pressure of 14/6 cm of water with an FiO2 of 50%. His current meds ventilation is around 33. Respiratory rate is quite elevated at around above 50. He was hypotensive initially and he was given IV fluids total of 2 L of normal saline in the coming blood pressure is 108/69. His heart rate is sinus at the rate of 113. He is on a maintenance IV fluids with 0.9 and this will be increased to be related 150 mL an hour. Urine output is minimal at this point in time his blood work from this morning is showing an acute kidney injury in the creatinine is up to 1.49 with a BUN of 36 and the sodium level of 141. The white cell count is also elevated at 16.3. The incision over the abdomen looks dry clean and intact. Bowel sounds are hypoactive. NG tube is in place and it has drained approximately 400 mL since arrival to the intensive care unit. I was told that the angina but was quite elevated in order of 800 mL every 8 hours. On examination, the patient is unresponsive. He is not following any commands. His breathing is very much limited and he has coarse breath sounds on throughout the lung barkley bilaterally. He remains on IV Zosyn. He remains on TPN for nutritional support. His causes status is DO NOT RESUSCITATE/DO NOT INTUBATE. On 11/12/2021, the patient is intubated on a mechanical ventilator. Note that the patient is postop day #13 after his initial surgery which included a partial gastrectomy and this was done for an acute abdomen. At that time, the patient was found to have gastric ischemia/necrosis and he required extensive surgery for ischemia of the lateral portion of the stomach and ischemic changes in the proximal jejunum. In any rate, the patient got transferred to the ICU yesterday because of acute hypoxic respiratory failure, acute tachypnea, shortness of breath, and drop in urine output. Immediately, the patient was intubated and placed on a mechanical ventilator. Post intubation, the patient underwent a bronchoscopy which revealed copious amount of rest or secretions in the upper airway and in the lungs bilaterally more so on the left. At that point, bronchoscopy was done and therapeutic it was suctioning was done. The lavage was sent for cultures from the left lower lobe and the results are still pending for now. Meanwhile, the patient underwent a computed tomography scan of the c hest and abdomen and this was completed yesterday and based on the findings, the patient has evidence of bilateral pulmonary infiltrates most on the left lower lobe consistent with pneumonia. The patient also had some pleural effusion on the left. There was consolidation of the lung bases/atelectasis. There was abdominal ascites that had improved. There was evidence of mild small bowel ileus. There was also evidence of subcutaneous edema as expected. Case was discussed with general surgery. No role for any surgical intervention this point in time. Hemoglobin was low at 5.6.5 and the patient was given packed RBC transfusion 1. Morning hemoglobin is at 7.3. Meanwhile, the patient is sedated at and the patient is currently on propofol running at 50 mcg/kg per minute and the patient is on a mechanical ventilator. This morning, is on assist control of 28, tidal volume of 400, FiO2 of 50% with a PEEP of 5. Chest x-ray showing left lower lobe atelectasis/consolidation. Blood gas shows a pH of 7.34 with a pCO2 of 36 and pO2 of 163. NG tube is in place. Output is been in order of 500 mL over the past 8 hours. The output was somewhat bloody/blood- tinged. No ion blood. No blood clots. No coffee-ground material. Patient continues to be on TPN for nutritional support. Antibiotic coverage includes a combination of Zosyn and vancomycin was also added yesterday due to concern of an underlying staphylococcal superinfection. Note that the patient was febrile overnight and currently is afebrile. Creatinine is improving and creatinine is down to 1.17. The patient was resuscitated aggressively with IV fluids. He was given a total of 3 L of fluid yesterday. His creatinine is down to 1.1 and the BUN is down to 38. Serum bicarb is at 17 with a sodium level of 142. Current maintenance IV fluids in the form of normal saline at the rate of 150 mL an hour. Overall fluid balance since yesterday has been in the order of +5.9 L. The patient is not requiring any pressors for now. Blood pressure is improved. Urine output is also improved. 11/13/2021, I'm seeing the patient for a follow-up. Note that the patient had another surgical exploration yesterday. Upon review of his CAT scan of the abdomen, there was evidence of fluid collection and possible/questionable gastric leak and no paratonia. Case was discussed with a general surgeon. Case was discussed with the family. It was decided to take the patient back to the operating room for another exploration. The patient intraoperatively was found to have abdominal fluid/abscess that was drained. There was less of adhesion. Upon further inspection, a portion of the jejunum was ischemic and was resected. Estimated blood loss was around 100 mL. The patient was brought back to the ICU after surgical wound closure. For now, the patient is still on a mechanical ventilator. EBONY drain is in place and output has been in the order of 100 mL since his arrival from the operating room and this is essentially serosanguineous. Output from the NG tube has dropped since yesterday. Output is minimal at this point in time. The patient is sedated on propofol and currently propofol is running at 50 mcg/kg per minute. The patient is well sedated. He remains on a mechanical ventilator at assist control of 28, tidal volume of 400, FiO2 of 40% with a PEEP of 5. Blood gas shows a pH of 7.33 with a pCO2 of 33 and pO2 of 130. Chest x-ray showed improvement of bilateral pleural effusions and atelectatic changes in lung bases more so on the right. ET tube is in a good location. The patient also has an NG tube which is also in good location. Note that overnight, the patient was becoming progressively more hypotensive. I gave him a total of 3 L of IV fluid boluses and his overall fluid balance is positive at least 8 L over the past 24 hours. Meanwhile, the patient was also started on pressors. Currently is on norepinephrine running at 0.1 mcg/kg per minute. White cell count is up to 20.4 with a hemoglobin 0.0. His creatinine today is at 0.9 with a mean of 29 and a serum bicarbonate of 17 with a sodium level of 139. His antibiotic coverage remains a combination of Zosyn and vancomycin. The patient is also on TPN for nutritional support. Urine output is in order of 60 mL an hour. His CODE STATUS has been going back in 4 between full and no cords. For now, he is a no code with exception of mechanical ventilation. Noted the patient also received a unit of packed RBC pr eoperatively yesterday. At the same time, the patient is febrile and he is receiving IV Tylenol regarding his episodic fever. 11/14/2021, patient is being seen for a follow-up. Active issue for now as the excessive amount of drainage from the EBONY drain draining the gastric leak. Output has been in the order of 1300 mL over the past 12 hours. The second EBONY drain in the lower abdomen is draining minimal amounts. The patient is currently off pressors. The concern is ongoing gastric leak at this point in time. The patient is sedated on propofol and propofol is running at 50 mcg/kg per minute. The patient is on normal saline at the rate of 150s an hour the patient is also on TPN at the rate of 70 mL an hour. The patient remains on a mechanical ventilator. This morning, he is on assist control mode with a tidal volume of 400, rate of 28, FiO2 40% with a PEEP of 5. The blood gas shows a pH of 7.25 with a pCO2 of 34 and pO2 132. Chest x-ray showing atelectatic changes and infiltrates in lung bases. ET tube is in a good location. No free air under the diaphragm. Note that the patient is currently off the pressors. Meanwhile, the patient has a white cell count is currently at 21.3 with a hemoglobin of 6.5. The platelet counts at 644, the patient also has a BUN of 30 with a creatinine of 1.1, serum bicarb is at 14 and the patient has a non-anion gap metabolic acidosis with a potassium level of 5 and a sodium level of 141. Glucose level is at 151. LFTs are normal. The patient remains on a combination of Zosyn and vancomycin. Cultures from the bronchioloalveolar lavage was positive for Cortney albicans. Respiratory cultures are all negative. Body fluid cultures are still pending for now. The patient obviously is nothing by mouth. The patient on TPN for nutritional support. On no pressors for now. A order was given for another unit of packed RBC transfusion. Discussed the case with a general surgeon. Prognosis remains extremely poor baseline above-men tioned comorbidities. 11/15/2021, seeing the patient for a follow-up. I had a discussion with the patient's family was decided to proceed the ongoing care of this patient. Noted the patient complicated surgeries of the abdomen 2. The second surgery was done and the patient was found to have ischemic jejunum that was resected and the patient was found to have a gastric leak. This morning, the patient is on mechanical ventilator. Propofol which is running at 50 mg/kg per minute. The patient is also on a bicarb infusion running at 100 mL an hour. The patient remains on a mechanical ventilator. On today's evaluation, the patient and a tidal volume of 400, rate of 28, FiO2 40% with a PEEP of 5. The patient has a blood gas that showed a pH of 7.34 with a pCO2 of 35 and pO2 of 149 and the above-mentioned ventilator setting. The chest x-ray showing no acute abnormalities. ET tube is in a good location. Some chronic atelectatic changes are seen in lung bases bilaterally. Meanwhile, the patient has an NG tube in place. Output is considerably high in the order of 100 mL an hour. The left- sided EBONY drain has not drain a whole lot probably 26 over the past 8 hours and the patient is offered through the right-sided EBONY. This surgical wound site is dry clean and intact. The wound is packed and the patient has retention sutures in place.. The patient meanwhile is covered with broad-spectrum antibiotics. For now, the patient on a combination of Zosyn, Diflucan and vancomycin. Multiple cultures were obtained. The most recent cultures from the abdominal body fluid showed yeast species and gram-negative bacillus. And this may return to vendor to be a candidal species. Meanwhile, the cultures that were obtained from the lungs are also positive for Cortney albicans. The patient is on TPN for nutritional support. The patient is an adequate urine output. The echoes of 20.3 with a hemoglobin of 7.3. The creatinine is down to 1.22 with a BUN of 29 and a sodium level of 139. No other significant atelectatic abnormalities. The patient's non-anion gap metabolic acidosis improving while the patient is a bicarb drip and the patient's serum bicarb is up to 18. 11/16/2021, I'm seeing the patient for a follow-up. The patient was given a sedation holiday. He became much more awake without any significant agitation. He was not communicating this is related to his baseline cognitive impairment. This additionally will be given to this patient again today. The patient remains on Profore running at 45 mcg/kg per minute. I have him on a mechanical ventilator. He is calm and comfortable and successful mechanical ventilator. Is an assist-control rate of 20, tidal volume 400, FiO2 of 40% with a PEEP of 5. His blood gas shows a pH of 7.35 with a pCO2 of 36 and pO2 of 138. His chest x-ray showing atelectatic changes small effusion the lung bases bilaterally. Previous bronchioloalveolar lavage from the lung showed Cortney albicans. The patient remains on a bicarb infusion at the rate of 50 mL an hour. The patient remains on TPN for nutritional support at the rate of 80 mL an hour. The white cell count is at 27. Hemoglobin stable at 7.1. The creatinine is stable at 1.37 with a mean of 34. Sodium level is at 137. Serum bicarb is at 18. The EBONY drains from the abdomen are barely draining at this point and this is for both the left and the right-sided EBONY drain. Angiopathy remains considerably high in the order of 100 mL an hour. The patient is afebrile. Cultures were noted. The patient has yeast and gram-negative bacteria and abdominal fluids. Remains on a combination of Zosyn and Diflucan and vancomycin. No other significant events otherwise for now. Objective - Vital Signs Vital signs: Vital Signs Temp 98.2 F 11/16/21 08:00 Pulse 90 11/16/21 11:00 Resp 21 11/16/21 11:00 BP 116/65 11/15/21 21:00 Pulse Ox 98 11/16/21 11:00 Intake & Output 11/15/21 11/16/21 11/16/21 18:59 06:59 18:59 Intake Total 3295.076 1890.000 790 Output Total 2950 2635 325 Balance 345.076 -745.000 465 Weight 89.5 kg Intake: IV 2070 1690 690 Dextrose 5% in Water 1, 750 600 200 000 ml @ 50 mls/hr IV . Q23H ROBERTO with Sodium Bicarb (1 Meq/ml) 150 ml Rx#:[id number] Fluconazole in NaCl,Iso- 200 100 Osm 400 mg In Saline 1 200ml.bag @ 100 mls/hr IVPB DAILY [facility] Rx#: [id number] Piperacillin-Tazobactam 3 100 .375 gm In Sodium Chloride 0.9% 100 ml @ 25 mls/hr IVPB Q8HR [facility] Rx# :[id number] Piperacillin-Tazobactam 3 100 .375 gm In Sodium Chloride 0.9% 100 ml @ 25 mls/hr IVPB Q8HR [facility] Rx# :[id number] TPN 770 840 290 Vancomycin 1,500 mg In 250 250 Sodium Chloride 0.9% 250 ml @ 125 mls/hr IVPB Q12HR [facility] Rx#:[id number] Intake, IV Titration 1225.076 200.000 100 Amount Potassium Acetate 40 meq 974.167 Calcium Gluconate 1 gm In Amino Acids 5 %/Dextrose 20 % 1,000 ml @ 70 mls/ hr IV .BY DURATION ROBERTO Rx #:[id number] propofoL 1,000 mg In 250.909 200.000 100 Empty Bag 1 bag @ 20 MCG/ KG/MIN 9.684 mls/hr IV . [id number] [facility] Rx#:[id number] Output: Gastric Drainage 1150 1000 Drainage 30 Left Abdomen 10 Right Abdomen 20 Urine 1800 1605 325 Other: Voiding Method Indwelling Catheter Indwelling Catheter ABP, PAP, CO, CI - Last Documented Arterial Blood Pressure 167/59 - Exam GENERAL: Patient is responsive, breathing is comfortable and the patient is currently sedated with propofol and his quite successful mechanical ventilator. No tachypnea. No use of excessive muscle breathing. NGgastric and orotracheal tube are both in place. Head exam was generally normal. There was no scleral icterus or corneal arcus. Mucous membranes were moist. HEENT: Pupils are round and equally reacting to light. EOMI. No scleral icterus. No conjunctival pallor. Normocephalic, atraumatic. No pharyngeal erythema. No thyromegaly. Orogastric and orotracheal tube are both in place. CARDIOVASCULAR: S1 and S2 present. No murmurs, rubs, or gallops. PULMONARY: Diffuse rhonchi heard throughout the lung barkley bilaterally. The patient has diminished breath on the left lung base. ABDOMEN: Absent bowel sounds and the surgical wound site over the mid abdomen is dry clean and intact. No direct tenderness. No rebound tenderness. No guarding. No organomegaly. The surgical wound site over the abdominal wall is dry clean and intact. NG tube is in place. Bowel sounds remain absent. The patient has a EBONY drain in her right lower abdomen drain minimal amount another EBONY drain in the left draining the stomach area and the area of gastric leak and output is around 1300 ML's over the past 12 hours. Patient also has an NG tube in place with some blood liquidy material in the order of 200 mL over the past 24 hours. MUSCULOSKELETAL: No joint swelling or deformity. EXTREMITIES: Extremities are cold and clammy and there are diminished pulses in all 4 extremities. No cyanosis. No clubbing. NEUROLOGICAL still somnolent and lethargic, not grimacing to deep painful stimulation. Not following commands and the patient is currently sedated with propofol. Examination of the skin revealed no evidence of significant rashes, suspicious appearing nevi or other concerning lesions. - Labs CBC & Chem 7: 11/16/21 04:45 11/16/21 04:45 Labs: Abnormal Lab Results - Last 24 Hours (Table) 11/15/21 11/16/21 11/16/21 Range/Units 17:43 00:09 04:45 WBC (3.8-10.6) k/uL RBC (4.30-5.90) m/uL Hgb (13.0-17.5) gm/dL Hct (39.0-53.0) % RDW (11.5-15.5) % Plt Count (150-450) k/uL ABG pCO2 (35-45) mmHg ABG pO2 (83-108) mmHg ABG HCO3 (21-25) mmol/L ABG O2 Saturation (94-97) % Chloride 115 H (98-107) mmol/L Carbon Dioxide 18 L (22-30) mmol/L BUN 34 H (9-20) mg/dL Creatinine 1.37 H (0.66-1.25) mg/dL Glucose 131 H (74-99) mg/dL POC Glucose (mg/dL) 138 H 134 H (75-99) mg/dL Calcium 8.1 L (8.4-10.2) mg/dL 11/16/21 11/16/21 11/16/21 Range/Units 04:45 06:10 10:54 WBC 22.8 H (3.8-10.6) k/uL RBC 2.62 L (4.30-5.90) m/uL Hgb 7.1 L (13.0-17.5) gm/dL Hct 22.9 L (39.0-53.0) % RDW 18.8 H (11.5-15.5) % Plt Count 522 H (150-450) k/uL ABG pCO2 34 L (35-45) mmHg ABG pO2 148 H 128 H (83-108) mmHg ABG HCO3 20 L 20 L (21-25) mmol/L ABG O2 Saturation 98.7 H 98.7 H (94-97) % Chloride (98-107) mmol/L Carbon Dioxide (22-30) mmol/L BUN (9-20) mg/dL Creatinine (0.66-1.25) mg/dL Glucose (74-99) mg/dL POC Glucose (mg/dL) (75-99) mg/dL Calcium (8.4-10.2) mg/dL 11/16/21 Range/Units 11:55 WBC (3.8-10.6) k/uL RBC (4.30-5.90) m/uL Hgb (13.0-17.5) gm/dL Hct (39.0-53.0) % RDW (11.5-15.5) % Plt Count (150-450) k/uL ABG pCO2 (35-45) mmHg ABG pO2 (83-108) mmHg ABG HCO3 (21-25) mmol/L ABG O2 Saturation (94-97) % Chloride (98-107) mmol/L Carbon Dioxide (22-30) mmol/L BUN (9-20) mg/dL Creatinine (0.66-1.25) mg/dL Glucose (74-99) mg/dL POC Glucose (mg/dL) 141 H (75-99) mg/dL Calcium (8.4-10.2) mg/dL Microbiology - Last 24 Hours (Table) 11/10/21 18:03 Blood Culture - Preliminary Blood No Growth after 120 hours 11/11/21 12:00 Fungal Culture - Preliminary Bronchial Washings - Random Cortney albicans 11/11/21 12:30 Fungal Culture - Preliminary Bronchial Washings - Random Cortney albicans 11/13/21 20:40 Gram Stain - Preliminary Aspirate Body Fluid Culture - Preliminary Gram Neg Bacilli Yeast species Assessment and Plan Plan: 1 partial gastrectomy as the patient was found to have ischemic anterior gastric wall with questionable small bowel ischemia. The patient underwent partial gastrectomy and the patient is postop day #17. Following that, CAT scan of the abdomen and chest was done and it showed pneumoperitoneum suspicious for gastric leak. Further investigation with another expiratory laparotomy that was done yesterday showed evidence of intra-abdominal abscesses that was drained and the patient was found to have ischemic small bowel, involving the jejunum that was resected surgically. Patient is postop day #4 following exploratory laparotomy, lysis of adhesions and partial small bowel resection. The patient continues to have an NG tube in place with a high output. Output from the EBONY drains are minimal at this point in time. The patient remains on TPN for nutritional support and the patient remains nothing by mouth. Abdominal fluid is showing yeast and gram-negative bacillus and the patient is covered on a combination of Zosyn and vancomycin and Diflucan. 2 acute pneumonia with left lower lobe consolidation/atelectasis and copious amount of rest or secretions post bronchoscopy and therapeutic it was suctioning and lavage of the left lower lobe. Cultures indicating Cortney albicans. No other microbial growth otherwise for now. The respiratory status is stable and the patient is currently on a mechanical ventilator. Oxygenation is improved significantly. There are some atelectatic changes in lung bases bilaterally. No respiratory status is stable. Oxidation is improved. The patient has grown Cortney albicans and the bronchioloalveolar lavage. Chest x-ray findings are stable. 3 acute hypotension/septic shock, improved and the patient's blood pressure is normalized and the patient is currently off pressors, and the patient remains off pressors 3 acute lactic acidosis, secondary to above, improved, lactic acid level was 3.8 yesterday and this morning is down to 1.5 4 acute kidney injury, improved in the creatinine is normalized 5 leukocytosis secondary to above, white cell count remains elevated 6 diabetes mellitus 7 hypertension 8 Developmental delay and autism 11 Acute blood loss anemia, expected outcome post gastric surgery and the patie nt's hemoglobin is stable for now 12 history of CVA events. No vent changes Plan Continue ventilator support Sedation holiday and assess the patient's mental status Check weaning parameters and give the patient is point is breathing trial Possible extubation today Of course his condition will remain borderline special with his ongoing abdominal complications. I think it's worthwhile to give the patient trial of extubation as long as he is able to clear his secretions and as long as the patient is able to tolerate a spontaneous breathing trial. Continue bicarb infusion for another 24 hours and monitor serum bicarb level, bicarb level is at 18 out to suggest continue the bicarb infusion Continued IV Zosyn and Diflucan discontinue the vancomycin The results of the BAL was possible Cortney albicans Abdominal fluid showing yeast and gram-negative bacillus Continue TPN for nutritional support No pressors for now Check echocardiogram done on 10/29/2032 showed an ejection fraction of 60-65% Keep the patient nothing by mouth Output from the EBONY drains are essentially minimal DNR Monitor the abdominal wound Critically care evaluation that was done more than 30 minutes Time with Patient: Greater than 30
[2021-11-16] MEDS: NOREPINEPHRINE 8 MG in SODIUM CHLORIDE 0.9% 250 ML IV SCH (14:36)
[2021-11-16 17:31] LABS: Glucose,Whole Blood 136 mg/dL (75-99)
[2021-11-17 00:22] LABS: Glucose,Whole Blood 128 mg/dL (75-99)
[2021-11-17] MEDS: INSULIN ASPART (NovoLOG) 100 UNIT/ML VIAL SQ SCH ×5 (00:36→23:19)
[2021-11-17] MEDS: METOCLOPRAMIDE 5 MG/ML 2 ML VIAL IVP SCH ×4 (02:48→20:10)
[2021-11-17 04:57] LABS: Anisocytosis Slight; HCT 22.6 % (39.0-53.0); HGB 7.1 gm/dL (13.0-17.5); Hypochromasia Marked; MCHC 31.2 g/dL (31.0-37.0); MCV 86.4 fL (80.0-100.0); Mean Platelet Volume 8.2; Platelet Count 505 k/uL (150-450); Poikilocytosis Slight; RBC 2.61 m/uL (4.30-5.90); RDW 19.2 % (11.5-15.5); WBC 18.7 k/uL (3.8-10.6)
[2021-11-17 05:12] LABS: Calcium 8.6 mg/dL (8.4-10.2); Magnesium 1.9 mg/dL (1.6-2.3); Phosphorus 4.2 mg/dL (2.5-4.5)
[2021-11-17] MEDS: DEXTROSE 5% IN WATER 1,000 ML with SODIUM BICARB (1 MEQ/ML) 150 ML IV SCH (05:35)
[2021-11-17 06:05] LABS: Glucose,Whole Blood 162 mg/dL (75-99)
--- NOTE | 2021-11-17 06:17 | XR ---
EXAMINATION TYPE: XR chest 1V portable DATE OF EXAM: 11/17/2021 CLINICAL HISTORY: Difficulty breathing progress study. TECHNIQUE: Single AP portable semiupright view of the chest is obtained. COMPARISON: Chest x-ray from one day earlier and older studies. FINDINGS: Stable orogastric tube. Stable right internal jugular central venous catheter. Interval ex tubation with removal of endotracheal tube. Cardiac silhouette size stable and mildly enlarged. Persistent mild central vascular congestion and b ibasilar opacities. Upper lungs remain clear without pneumothorax. Osseous structures are intact. Per cutaneous drainage catheter in the abdomen suspected. IMPRESSION: Findings favor CHF exacerbation or fluid overload state as there is mild cardiomegaly wit h mild central vascular congestion and suspected small bilateral pleural effusions with associated bi basilar atelectasis and/or infiltrates. Correlate clinically. Interval extubation otherwise no signif icant interval change.
[2021-11-17 06:28] LABS: Band Neutrophils % 21 %; Eosinophils # (M) 0.37 k/uL (0-0.7); Lymphocytes # (M) 1.31 k/uL (1.0-4.8); Metamyelocytes # (M) 0.56 k/uL (0); Metamyelocytes % 3 %; Monocytes # (M) 0.56 k/uL (0-1.0); Neutrophils % (M) 66 %; Nucleated Red Blood Cells 0 /100 WBC (0-0); Total Cells Counted 200
[2021-11-17 06:31] LABS: Polychromasia Present
[2021-11-17] MEDS: FUROSEMIDE 10 MG/ML 4 ML VIAL IV SCH ×2 (09:47→20:10)
[2021-11-17] MEDS: PANTOPRAZOLE 40 MG/10 ML VIAL IVP SCH ×2 (09:47→20:10)
[2021-11-17] MEDS: FLUCONAZOLE IN NACL,ISO-OSM 400 MG in SALINE 1 200ML.BAG IVPB SCH (09:47)
[2021-11-17] MEDS: PIPERACILLIN-TAZOBACTAM 3.375 GM in SODIUM CHLORIDE 0.9% 100 ML IVPB SCH (09:47)
--- NOTE | 2021-11-17 10:31 | P.PN ---
Progress Note - Text Progress Note Date: 11/17/21 The patient was extubated yesterday. He still remains encephalopathic. He's had significant less drainage through the EBONY drainage. Vital signs appear stable. Abdomen is soft. Wound is clean. Status post partial gastrectomy for ischemic stomach and then second exploratory laparotomy for small bowel resection due to ischemia. Patient has improved overall. His condition is still quite guarded. He'll continue receive supportive care.
[2021-11-17] MEDS: IPRATROPIUM-ALBUTEROL 3 ML NEB INHALATION SCH ×3 (10:48→19:21)
[2021-11-17] MEDS: ERTAPENEM 1 GM in SODIUM CHLORIDE 0.9% 50 ML IVPB SCH (12:54)
[2021-11-17] MEDS: ENOXAPARIN 40 MG/0.4 ML SYRINGE SQ SCH (12:55)
[2021-11-17 13:00] LABS: Glucose,Whole Blood 129 mg/dL (75-99)
[2021-11-17] MEDS: POTASSIUM ACETATE IV SCH ×5 (14:13)
[2021-11-17] MEDS: AMINO ACID 5% IV SCH ×5 (14:13)
[2021-11-17] MEDS: CALCIUM GLUCONATE IV SCH ×5 (14:13)
[2021-11-17] MEDS: [UNRECOGNIZED DRUG - OTHER] IV SCH ×5 (14:13)
[2021-11-17] MEDS: NOREPINEPHRINE 8 MG in SODIUM CHLORIDE 0.9% 250 ML IV SCH (14:14)
--- NOTE | 2021-11-17 14:36 | P.PN ---
Subjective Progress Note Date: 11/17/21 On the morning of 11/11/2021, the patient became acutely short of breath and the patient got transferred to the intensive care unit. The patient is known to me and I think in care of this patient last week as the patient had a extensive gastric surgery with partial gastrectomy , and the patient is postop day #12. The patient was taken to the operating room and the patient was found to have ischemia of the lateral portion of the stomach and mild/minimal ischemia of the proximal jejunum. The patient underwent a exploratory laparotomy and the patient underwent a partial gastrectomyand postop, the patient was treated for multisystem organ failure on his condition was stabilized and he got to point where the patient was extubated and he was transferred to a medical floor. Nevertheless, he was still maintained nothing by mouth. NG tube was still in place. The patient was receiving TPN for nutritional support. The patient was noted to be more lethargic yesterday. Overnight, the patient became unresponsive above and beyond his baseline knowing that he has baseline mental retardation. He was having also coarse breath sounds bilaterally and he was also found to be foaming at the mouth and he was having moderate degree of respiratory distress. Subsequently, he became more hypotensive, hypoxic and he was placed on a nonrebreather facemask and he was found to be febrile with tempe rature 103.2. At that point, the patient got transferred to the intensive care unit. Once in the ICU, the patient was placed On a BiPAP at a pressure of 14/6 cm of water with an FiO2 of 50%. His current meds ventilation is around 33. Respiratory rate is quite elevated at around above 50. He was hypotensive initially and he was given IV fluids total of 2 L of normal saline in the coming blood pressure is 108/69. His heart rate is sinus at the rate of 113. He is on a maintenance IV fluids with 0.9 and this will be increased to be related 150 mL an hour. Urine output is minimal at this point in time his blood work from this morning is showing an acute kidney injury in the creatinine is up to 1.49 with a BUN of 36 and the sodium level of 141. The white cell count is also elevated at 16.3. The incision over the abdomen looks dry clean and intact. Bowel sounds are hypoactive. NG tube is in place and it has drained approximately 400 mL since arrival to the intensive care unit. I was told that the angina but was quite elevated in order of 800 mL every 8 hours. On examination, the patient is unresponsive. He is not following any commands. His breathing is very much limited and he has coarse breath sounds on throughout the lung barkley bilaterally. He remains on IV Zosyn. He remains on TPN for nutritional support. His causes status is DO NOT RESUSCITATE/DO NOT INTUBATE. On 11/12/2021, the patient is intubated on a mechanical ventilator. Note that the patient is postop day #13 after his initial surgery which included a partial gastrectomy and this was done for an acute abdomen. At that time, the patient was found to have gastric ischemia/necrosis and he required extensive surgery for ischemia of the lateral portion of the stomach and ischemic changes in the proximal jejunum. In any rate, the patient got transferred to the ICU yesterday because of acute hypoxic respiratory failure, acute tachypnea, shortness of breath, and drop in urine output. Immediately, the patient was intubated and placed on a mechanical ventilator. Post intubation, the patient underwent a bronchoscopy which revealed copious amount of rest or secretions in the upper airway and in the lungs bilaterally more so on the left. At that point, bronchoscopy was done and therapeutic it was suctioning was done. The lavage was sent for cultures from the left lower lobe and the results are still pending for now. Meanwhile, the patient underwent a computed tomography scan of the c hest and abdomen and this was completed yesterday and based on the findings, the patient has evidence of bilateral pulmonary infiltrates most on the left lower lobe consistent with pneumonia. The patient also had some pleural effusion on the left. There was consolidation of the lung bases/atelectasis. There was abdominal ascites that had improved. There was evidence of mild small bowel ileus. There was also evidence of subcutaneous edema as expected. Case was discussed with general surgery. No role for any surgical intervention this point in time. Hemoglobin was low at 5.6.5 and the patient was given packed RBC transfusion 1. Morning hemoglobin is at 7.3. Meanwhile, the patient is sedated at and the patient is currently on propofol running at 50 mcg/kg per minute and the patient is on a mechanical ventilator. This morning, is on assist control of 28, tidal volume of 400, FiO2 of 50% with a PEEP of 5. Chest x-ray showing left lower lobe atelectasis/consolidation. Blood gas shows a pH of 7.34 with a pCO2 of 36 and pO2 of 163. NG tube is in place. Output is been in order of 500 mL over the past 8 hours. The output was somewhat bloody/blood- tinged. No ion blood. No blood clots. No coffee-ground material. Patient continues to be on TPN for nutritional support. Antibiotic coverage includes a combination of Zosyn and vancomycin was also added yesterday due to concern of an underlying staphylococcal superinfection. Note that the patient was febrile overnight and currently is afebrile. Creatinine is improving and creatinine is down to 1.17. The patient was resuscitated aggressively with IV fluids. He was given a total of 3 L of fluid yesterday. His creatinine is down to 1.1 and the BUN is down to 38. Serum bicarb is at 17 with a sodium level of 142. Current maintenance IV fluids in the form of normal saline at the rate of 150 mL an hour. Overall fluid balance since yesterday has been in the order of +5.9 L. The patient is not requiring any pressors for now. Blood pressure is improved. Urine output is also improved. 11/13/2021, I'm seeing the patient for a follow-up. Note that the patient had another surgical exploration yesterday. Upon review of his CAT scan of the abdomen, there was evidence of fluid collection and possible/questionable gastric leak and no paratonia. Case was discussed with a general surgeon. Case was discussed with the family. It was decided to take the patient back to the operating room for another exploration. The patient intraoperatively was found to have abdominal fluid/abscess that was drained. There was less of adhesion. Upon further inspection, a portion of the jejunum was ischemic and was resected. Estimated blood loss was around 100 mL. The patient was brought back to the ICU after surgical wound closure. For now, the patient is still on a mechanical ventilator. EBONY drain is in place and output has been in the order of 100 mL since his arrival from the operating room and this is essentially serosanguineous. Output from the NG tube has dropped since yesterday. Output is minimal at this point in time. The patient is sedated on propofol and currently propofol is running at 50 mcg/kg per minute. The patient is well sedated. He remains on a mechanical ventilator at assist control of 28, tidal volume of 400, FiO2 of 40% with a PEEP of 5. Blood gas shows a pH of 7.33 with a pCO2 of 33 and pO2 of 130. Chest x-ray showed improvement of bilateral pleural effusions and atelectatic changes in lung bases more so on the right. ET tube is in a good location. The patient also has an NG tube which is also in good location. Note that overnight, the patient was becoming progressively more hypotensive. I gave him a total of 3 L of IV fluid boluses and his overall fluid balance is positive at least 8 L over the past 24 hours. Meanwhile, the patient was also started on pressors. Currently is on norepinephrine running at 0.1 mcg/kg per minute. White cell count is up to 20.4 with a hemoglobin 0.0. His creatinine today is at 0.9 with a mean of 29 and a serum bicarbonate of 17 with a sodium level of 139. His antibiotic coverage remains a combination of Zosyn and vancomycin. The patient is also on TPN for nutritional support. Urine output is in order of 60 mL an hour. His CODE STATUS has been going back in 4 between full and no cords. For now, he is a no code with exception of mechanical ventilation. Noted the patient also received a unit of packed RBC pr eoperatively yesterday. At the same time, the patient is febrile and he is receiving IV Tylenol regarding his episodic fever. 11/14/2021, patient is being seen for a follow-up. Active issue for now as the excessive amount of drainage from the EBONY drain draining the gastric leak. Output has been in the order of 1300 mL over the past 12 hours. The second EBONY drain in the lower abdomen is draining minimal amounts. The patient is currently off pressors. The concern is ongoing gastric leak at this point in time. The patient is sedated on propofol and propofol is running at 50 mcg/kg per minute. The patient is on normal saline at the rate of 150s an hour the patient is also on TPN at the rate of 70 mL an hour. The patient remains on a mechanical ventilator. This morning, he is on assist control mode with a tidal volume of 400, rate of 28, FiO2 40% with a PEEP of 5. The blood gas shows a pH of 7.25 with a pCO2 of 34 and pO2 132. Chest x-ray showing atelectatic changes and infiltrates in lung bases. ET tube is in a good location. No free air under the diaphragm. Note that the patient is currently off the pressors. Meanwhile, the patient has a white cell count is currently at 21.3 with a hemoglobin of 6.5. The platelet counts at 644, the patient also has a BUN of 30 with a creatinine of 1.1, serum bicarb is at 14 and the patient has a non-anion gap metabolic acidosis with a potassium level of 5 and a sodium level of 141. Glucose level is at 151. LFTs are normal. The patient remains on a combination of Zosyn and vancomycin. Cultures from the bronchioloalveolar lavage was positive for Cortney albicans. Respiratory cultures are all negative. Body fluid cultures are still pending for now. The patient obviously is nothing by mouth. The patient on TPN for nutritional support. On no pressors for now. A order was given for another unit of packed RBC transfusion. Discussed the case with a general surgeon. Prognosis remains extremely poor baseline above-men tioned comorbidities. 11/15/2021, seeing the patient for a follow-up. I had a discussion with the patient's family was decided to proceed the ongoing care of this patient. Noted the patient complicated surgeries of the abdomen 2. The second surgery was done and the patient was found to have ischemic jejunum that was resected and the patient was found to have a gastric leak. This morning, the patient is on mechanical ventilator. Propofol which is running at 50 mg/kg per minute. The patient is also on a bicarb infusion running at 100 mL an hour. The patient remains on a mechanical ventilator. On today's evaluation, the patient and a tidal volume of 400, rate of 28, FiO2 40% with a PEEP of 5. The patient has a blood gas that showed a pH of 7.34 with a pCO2 of 35 and pO2 of 149 and the above-mentioned ventilator setting. The chest x-ray showing no acute abnormalities. ET tube is in a good location. Some chronic atelectatic changes are seen in lung bases bilaterally. Meanwhile, the patient has an NG tube in place. Output is considerably high in the order of 100 mL an hour. The left- sided EBONY drain has not drain a whole lot probably 26 over the past 8 hours and the patient is offered through the right-sided EBONY. This surgical wound site is dry clean and intact. The wound is packed and the patient has retention sutures in place.. The patient meanwhile is covered with broad-spectrum antibiotics. For now, the patient on a combination of Zosyn, Diflucan and vancomycin. Multiple cultures were obtained. The most recent cultures from the abdominal body fluid showed yeast species and gram-negative bacillus. 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 Meanwhile, the cultures that were obtained from the lungs are also positive for Cortney albicans. The patient is on TPN for nutritional support. The patient is an adequate urine output. The echoes of 20.3 with a hemoglobin of 7.3. The creatinine is down to 1.22 with a BUN of 29 and a sodium level of 139. No other significant atelectatic abnormalities. The patient's non-anion gap metabolic acidosis improving while the patient is a bicarb drip and the patient's serum bicarb is up to 18. 11/16/2021, I'm seeing the patient for a follow-up. The patient was given a sedation holiday. He became much more awake without any significant agitation. He was not communicating this is related to his baseline cognitive impairment. This additionally will be given to this patient again today. The patient remains on Profore running at 45 mcg/kg per minute. I have him on a mechanical ventilator. He is calm and comfortable and successful mechanical ventilator. Is an assist-control rate of 20, tidal volume 400, FiO2 of 40% with a PEEP of 5. His blood gas shows a pH of 7.35 with a pCO2 of 36 and pO2 of 138. His chest x-ray showing atelectatic changes small effusion the lung bases bilaterally. Previous bronchioloalveolar lavage from the lung showed Cortney albicans. The patient remains on a bicarb infusion at the rate of 50 mL an hour. The patient remains on TPN for nutritional support at the rate of 80 mL an hour. The white cell count is at 27. Hemoglobin stable at 7.1. The creatinine is stable at 1.37 with a mean of 34. Sodium level is at 137. Serum bicarb is at 18. The EBONY drains from the abdomen are barely draining at this point and this is for both the left and the right-sided EBONY drain. Angiopathy remains considerably high in the order of 100 mL an hour. The patient is afebrile. Cultures were noted. The patient has yeast and gram-negative bacteria and abdominal fluids. Remains on a combination of Zosyn and Diflucan and vancomycin. No other significant events otherwise for now. 11/17/2021, patient is extubated. Noted the patient was extubated successfully yesterday. Post extubation, he became slightly anxious and restless. Based on that, the patient was placed on Precedex which is still running at a dose of 0.4 mcg/kg per minute. Nevertheless, the patient survives extubation and the patient is currently on 6 L O2 nasal cannula and his history quite comfortable. At times, he is still tachypneic. . His cough is weak. He is able to clear his upper or secretions. NG tube is in place. Output has dropped since yesterday and the patient has put out approximately 250 mL of gastric material over the past 12 hours. NG tube remains in place. The patient receiving TPN for nutritional support at the rate of 80 mL an hour and the patient's fluid balance has been negative thallium and 99 mL over the past 24 hours. Noted the patient's white cell count is at 18 with a hemoglobin of 7.1. Sodium is at 137, bicarbonate 24, creatinine is at 1.5 and the patient's abdominal fluid cultures came back positive for E. coli that was resistant to Zosyn. He also has Cortney albicans. No other significant events otherwise for now. He is hemodynamically stable on no pressors. EBONY drains are in place with minimal amount of output at this point in time. He seems to be clinically anxious. No agitation at this point in time. Objective - Vital Signs Vital signs: Vital Signs Temp 99.0 F 11/17/21 12:00 Pulse 93 11/17/21 13:00 Resp 27 H 11/17/21 13:00 BP 125/67 11/17/21 13:00 Pulse Ox 95 11/17/21 13:00 Intake & Output 11/16/21 11/17/21 11/17/21 18:59 06:59 18:59 Intake Total 0488.693 4339.023 910 Output Total 1675 2925 1565 Balance 256.865 -234.977 -655 Weight 89.1 kg Intake: IV 1830 1560 430 Dextrose 5% in Water 1, 600 600 50 000 ml @ 50 mls/hr IV . Q23H ROBERTO with Sodium Bicarb (1 Meq/ml) 150 ml Rx#:[id number] Fluconazole in NaCl,Iso- 100 200 Osm 400 mg In Saline 1 200ml.bag @ 100 mls/hr IVPB DAILY ROBERTO Rx#: [id number] Piperacillin-Tazobactam 3 200 100 .375 gm In Sodium Chloride 0.9% 100 ml @ 25 mls/hr IVPB Q8HR ROBERTO Rx# :[id number] TPN 930 960 80 Intake, IV Titration 741.078 0186.023 Amount Dexmedetomidine/0.9% NaCl 1.865 100.023 (Pmx) 400 mcg In Empty Bag 1 bag @ 0.2 MCG/KG/HR 4.475 mls/hr IV .[id number] ROBERTO Rx#:[id number] Potassium Acetate 40 meq 1030 Calcium Gluconate 1 gm In Amino Acid 5%-D15w 1,000 ml @ 80 mls/hr IV .BY DURATION ROBERTO Rx#: [id number] propofoL 1,000 mg In 100 Empty Bag 1 bag @ 20 MCG/ KG/MIN 9.684 mls/hr IV . [id number] ROBERTO Rx#:[id number] TPN/PPN 480 Mvi, Adult No.4 with Vit 480 K 10 ml Trace (Conc-1Ml/ Dose) 1 ml Potassium Acetate 40 meq Calcium Gluconate 1 gm In Amino Acid 5%-D15w 1,000 ml @ 80 mls/hr IV .BY DURATION ROBERTO Rx#:[id number] Output: Gastric Drainage 650 Drainage 15 Left Abdomen 10 Right Abdomen 5 Urine 1675 2010 1565 Other 250 Other: Voiding Method Indwelling Catheter Indwelling Catheter # Bowel Movements 1 ABP, PAP, CO, CI - Last Documented Arterial Blood Pressure 165/62 - Exam GENERAL: Patient is responsive, breathing is comfortable and the patient is currently extubated to 6 L of O2 by nasal cannula Head exam was generally normal. There was no scleral icterus or corneal arcus. Mucous membranes were moist. HEENT: Pupils are round and equally reacting to light. EOMI. No scleral icterus. No conjunctival pallor. Normocephalic, atraumatic. No pharyngeal erythema. No thyromegaly. Orogastric and orotracheal tube are both in place. CARDIOVASCULAR: S1 and S2 present. No murmurs, rubs, or gallops. PULMONARY: Diffuse rhonchi heard throughout the lung barkley bilaterally. The p atient has diminished breath on the left lung base. ABDOMEN: Absent bowel sounds and the surgical wound site over the mid abdomen is dry clean and intact. No direct tenderness. No rebound tenderness. No guarding. No organomegaly. The surgical wound site over the abdominal wall is dry clean and intact. NG tube is in place. Bowel sounds remain absent. EBONY drains in place in both the right-sided and left-sided positions putting out minimal amount of output at this point in time. NG tube was also in place. Surgical wound site is dry clean and intact and remains unchanged compared to yesterday. MUSCULOSKELETAL: No joint swelling or deformity. EXTREMITIES: Extremities are cold and clammy and there are diminished pulses in all 4 extremities. No cyanosis. No clubbing. NEUROLOGICAL awake and alert, at times communicates, has profoundly especially in the lower extremity bilaterally. Examination of the skin revealed no evidence of significant rashes, suspicious appearing nevi or other concerning lesions. - Labs CBC & Chem 7: 11/17/21 04:32 11/17/21 04:32 Labs: Abnormal Lab Results - Last 24 Hours (Table) 11/16/21 11/17/21 11/17/21 Range/Units 17:30 00:20 04:32 WBC (3.8-10.6) k/uL RBC (4.30-5.90) m/uL Hgb (13.0-17.5) gm/dL Hct (39.0-53.0) % RDW (11.5-15.5) % Plt Count (150-450) k/uL Neutrophils # (Manual) (1.3-7.7) k/uL Metamyelocytes # (Man) (0) k/uL Chloride 110 H (98-107) mmol/L BUN 40 H (9-20) mg/dL Creatinine 1.54 H (0.66-1.25) mg/dL Glucose 134 H (74-99) mg/dL POC Glucose (mg/dL) 136 H 128 H (75-99) mg/dL 11/17/21 11/17/21 11/17/21 Range/Units 04:32 06:03 12:58 WBC 18.7 H (3.8-10.6) k/uL RBC 2.61 L (4.30-5.90) m/uL Hgb 7.1 L (13.0-17.5) gm/dL Hct 22.6 L (39.0-53.0) % RDW 19.2 H (11.5-15.5) % Plt Count 505 H (150-450) k/uL Neutrophils # (Manual) 16.20 H (1.3-7.7) k/uL Metamyelocytes # (Man) 0.56 H (0) k/uL Chloride (98-107) mmol/L BUN (9-20) mg/dL Creatinine (0.66-1.25) mg/dL Glucose (74-99) mg/dL POC Glucose (mg/dL) 162 H 129 H (75-99) mg/dL Microbiology - Last 24 Hours (Table) 11/10/21 18:03 Blood Culture - Final Blood No Growth after 144 hours 11/13/21 20:40 Gram Stain - Final Aspirate Body Fluid Culture - Final Escherichia coli Cortney albicans Assessment and Plan Plan: 1 partial gastrectomy as the patient was found to have ischemic anterior gastric wall with questionable small bowel ischemia. The patient underwent partial gastrectomy and the patient is postop day #18. Following that, CAT scan of the abdomen and chest was done and it showed pneumoperitoneum suspicious for gastric leak. Further investigation with another expiratory laparotomy that was done yesterday showed evidence of intra-abdominal abscesses that was drained and the patient was found to have ischemic small bowel, involving the jejunum that was resected surgically. Patient is postop day #5 following exploratory laparotomy, lysis of adhesions and partial small bowel resection. Patient is growing gram- negative bacillus/E. coli in the abdominal fluid in addition to Cortney. The patient was extubated. NG output is dropped compared to yesterday and there is no significant adenopathy from the EBONY drains. The patient was extubated yesterday and the patient is currently on 6 L O2 nasal cannula. 2 acute hypoxic respiratory failure secondary to above, improving and the patient was extubated yesterday to 6 L about 2 nasal cannula. 3 acute hypotension/septic shock, improved and the patient's blood pressure is normalized and the patient is currently off pressors, and the patient remains off pressors 3 acute lactic acidosis, secondary to above, improved, lactic acid level was 3.8 yesterday and this morning is down to 1.5 4 acute kidney injury, creatinine is up to 1.54. Vancomycin has been discontinued. 5 leukocytosis secondary to above, white cell count remains elevated, although it's improved compared to yesterday. 6 diabetes mellitus 7 hypertension 8 Developmental delay and autism 11 Acute blood loss anemia, expected outcome post gastric surgery and the patient's hemoglobin is stable for now 12 history of CVA events. No vent changes Plan Start the patient on Ativan 0.5 mg 3 times a day. Noted the patient was taking benzodiazepines in addition to several other psychotropic medications on outpatient basis. Gradually wean off the Precedex and discontinue Keep the patient 6 L of O2 nasal cannula Facilitate use of incentive spirometer Switch antibiotics from IV Zosyn to IV Invanz to cover the E. coli in the abdominal wound in addition to Diflucan Continue TPN for nutritional support Monitor renal function Monitor the output from the EBONY drains and NG tube The patient is having bowel sounds and the patient did have bowel movement. Monitor the abdominal wounds. Aspiration precautions. Give the patient by mouth for now. Discontinue the bicarb infusion. We'll continue to follow. Critically care evaluation that was done more than 30 minutes Time with Patient: Greater than 30
[2021-11-17] MEDS: HYDROmorphone 0.5 MG/0.5 ML SYRINGE IVP PRN ×2 (16:06→20:22)
[2021-11-17] MEDS: LORazepam 2 MG/ML INJ IV SCH ×2 (18:13→23:18)
[2021-11-17 18:18] LABS: Glucose,Whole Blood 144 mg/dL (75-99)
[2021-11-17 23:12] LABS: Glucose,Whole Blood 128 mg/dL (75-99)
--- NOTE | 2021-11-17 23:56 | P.PN ---
Subjective Progress Note Date: 11/16/21 Patient was admitted for nausea vomiting diarrhea believed to have gastroenteritis. Patient continued to have vomiting and started having abdominal tenderness because of which CT of the abdomen was obtained which showed pneumatosis coli along with some gas in the venous system concern for ischemic bowel. Patient was started on Zosyn. Patient subsequently decompensated patient became hypotensive with BP of 60/40 transferred to ICU patient was given 3 L of boluses of IV fluid NG tube was placed which showed bloody output . Patient in septic shock and receiving norepinephrine at this time. Recent echo showed normal ejection fraction. Patient had CTA of the chest which was negative for pulmonary embolism patient creatinine has worsened and went up to 2.80 today from 1.14 yesterday and this is secondary to acute tubular necrosis from sepsis and septic shock. Patient does have lactic acidosis, patient does have lactic acidosis with lactic acidosis 7.5. Patient will be given 1 L of IV fluids continue pressor support. he is intubated and sedated. 10/31/2021 Patient is started having urine output. Patient underwent a arthrotomy yesterday and found to have ischemia of the lateral portion of the stomach and ischemia of the proximal jejunum patient underwent partial gastrectomy. Patient is presently on that to pressors maximized on norepinephrine, patient is also on vasopressin receiving albumin, IV fluids started having minimal urine output patient was anuric last night. Patient's chloride is highly elevated leading to metabolic acidosis patient also has an anion gap metabolic acidosis from lactic acidosis which appears to be improving at this time patient's overall clinical condition is guarded and the prognosis is poor. Patient Y blood cell count went down in fact patient is neutropenic now. Patient is presently not receiving any nutrition at this time. 11/01/2021 Patient is seen in follow-up continues to be closely monitored in the ICU in critical condition. Multiple medical consultations including pulmonary skin former, cardiology, surgery following closely. Patient is status post partial gastrectomy postop day #2. Patient continues on IV Zosyn along with normal saline at 75 ML per hour. Per nursing staff patient continues on Levophed along with vasopressin for pressor support. Patient not tolerating weaning very well to assess mentation. Patient continues on sedation of propofol and will continue. Chest x-ray today shows basilar atelectasis, may be associated effusion and to correlate to exclude pneumonia. Per nursing staff there has been minimal NG tube output and of note on the x-ray the distal tip of the NG tube is obscured although unable to fully see as there is overlying artifacts with the telemetry monitoring and the patient is rotated. Patient is also having hypoglycemic events and was started on dextrose. Surgery plans for TPN for nutritional support. Family at the bedside today and their questions and concerns were answered. 11/02/2021 Patient evaluated today in the ICU he is postoperative day #3 for partial gastrectomy, currently intubated with an FiO2 of 30% with a PEEP of 5. Current oxygen saturations are 99 to 100%. Blood pressures 119/61, respirations 28, heart rate 107, afebrile. Chest x-ray today shows a stable chest with pleural effusion unchanged, perihilar and basilar infiltrates persist. Per nurse about 500 mLs output from NG tube in the last 12 hours. Continues on IV lasix, TPN, IV zosyn. Pressor support and propfol are currently on hold. Blood pressures are maintaining 120s systolic, heart rate 113 sinus tachycardia, afebrile, respirations 27. Patient with indwelling catheter, urine is dark susana, per nurse no BM since surgery, bowels are absent left lower quadrant, hypoactive to the right quadrant. Labs today show white count 6, hemoglobin 8.6, sodium 142, potassium 3.9, chloride 124, CO2 15, BUN 41, creatinine 1.39, blood glucose in the 80s, calcium 7.2, total bili 1.7, AST 145, ALT 59. Patient is being followed closely by pulmonary, cardiology, and surgical services. 11/03/2021 Patient evaluated today and closely monitored in ICU remains in critical condition. Patient's been off sedation for 24 hours. He is currently spontaneous eye opening, eyes are tracking however he does not move his face, not following motor commands unable to wiggle fingers. Once patient is more al ert may tolerate extubation. He continues to be vented, Fi02 30% with a PEEP of 5 his current oxygen saturation 96%, blood pressure 112/74, heart rate sinus tachycardic in the low 100's, he has been afebrile. Patient has been in a negative fluid balance with -1.8 Liters in the last 24 hours and received 3 doses of IV lasix which is now discontinued. Bowel sounds are hypoactive, abdominal binder in place with dressings intact to midline incision, no bowel movements or passing gas as reported by RN. Creatinine slightly increased today to 1.44, BUN 37. No white count, hemoglobin stable at 8.2, platelets decreased to 40's for the last 2 days, heparin was discontinued, continues with SCD's. Liver enzymes stable from yesterday. Continues on D10 infusion, TPN, maintaining blood pressures off pressor support. Continues on IV zosyn. Chest xray today shows unchanged pleural effusion. Patient remains in the ICU followed closely by pulmonary, cardiology, and surgical services in critical condition. Code status was changed to DNR by family. 11/04/2021 Patient evaluated today in the intensive care unit, he is more alert than yesterday. Per RN patient had a large bowel movement today and bowels are hypoactive today in all quadrants. BM was a maroon color per nurse. Abdominal binder in place. Continues with rivas catheter with over 3L of urine output in the last 24 hours, still with peripheral edema. IV lasix 60 mg x1 was given today. NGT remains in place with only 50 mLs of output overnight. Patient remains off sedation, remains off pressor support. Blood pressure today 115/69, heart rate 106, low grade fever this morning 99.2 axillary, and patient was extubated mid morning is on a 15 L HF cannula. Chest xray this morning shows stable bilateral consolidation and pleural effusion. Remains on D10 gtt at 20 mLs per hour, TPN/Lipids, and IV zosyn. Patient also received potassium supple mentation today. Followed closely by multiple consultations including cardiology, pulmonary, and surgery and remains in guarded condition. Labs reviewed: sodium 135, potassium 3.2, chloride 120, CO2 20, BUN 45, creat 1.26, blood glucose in the 110's, AST 81, ALT and alk phos have normalized. 11/05/2021 Patient is seen and evaluated in follow-up continues to be in the ICU under close monitoring. Patient was recently extubated and continues on 5 L high flow nasal cannula and oxygen saturations have been 97-100%. Multiple medical consultations including pulmonary skin former and surgery following closely. Chest x-ray today shows removal of endotracheal tube along with NG tube and central venous catheter on the right remains in place with no evident pneumothorax and to correlate for pneumonia, congestive heart failure, possible effusions and associated atelectasis versus edema. Patient did receive a dose of IV Lasix yesterday. Neurology consulted and CT of the brain without contrast ordered to assess mentation which is currently pending. Patient is continued on D10 and water and maintaining blood sugars in the 120s and will continue current regimen. Hemoglobin is 7.7 today with no bleeding noted. Platelets on the lower side at 65 although improved from previous and will continue to monitor closely with repeat labs in the morning. Patient also continues on IV Zosyn and will continue at this time. 11/06/2021 Patient is seen in follow-up continues to be in the ICU with multiple medical consultations following. Patient was evaluated by neurology and EEG was ordered and pending. Patient underwent CT of the brain which showed no acute abnormality noted. Patient also had chest x-ray today which shows no significant interval change compared to yesterday with continued questionable pulmonary infiltration at the mid to lower lung zones and there is some congested pulmonary vasculature with bilateral pleural effusions. Patient had been receiving one-time doses of IV Lasix daily and will add scheduled 40 mg IV Lasix and recommend repeat labs and follow-up chest x-ray. Patient is tolerating 3 L high flow via nasal cannula and maintaining oxygen saturations above 97%. Patient continues with significant weakness and PT/OT therapy consulted to follow the patient daily. Patient noted to have increased output noted in the NG tube and general surgery following an plan is for CT abdomen with contrast this afternoon. Will await report. Continues to be nothing by mouth on TPN and will continue for now. 11/07/2021 Patient is seen and continues to be closely monitored in the ICU. Patient underwent CT abdomen and pelvis which shows some resolution of the previously seen gastric pneumatosis with mild wall thickening of the stomach with questionable minimal residual pneumatosis of the second and third part of the duodenum. There is noted 3 flow of the ingested oral contrast on the ileocecal junction with no evidence of contrast leak. There are slightly dilated small bowel loops measuring 3.3 cm with no definite transition point which may suggest an element of ileus. There is some diffuse bowel thickening of the diana nonspecific and fluid-filled colon with thickened wall that may suggest colitis. Also some moderate amount of free abdominal and pelvic fluid with peritoneal fat stranding and most probably related to postoperative changes although peritonitis cannot be excluded. There is a 2.8 cm gallbladder stone with no gallbladder wall thickening or gross signs of acute cholecystitis with no definite intrahepatic focal lesions identified. And there is some bilateral nasal pleural effusions and subsegmental pulmonary atelectasis demonstrating air bronchogram within. Patient is not currently on antibiotics and patient is afebrile. WBC is 8.4, hemoglobin is 7.9, BMP is noted and magnesium is 2.4, triglycerides found to be elevated at 256. Multiple medical consultations following and will continue to follow closely. All intake of fluids have been decreased to 70 mL per hour including TPN. Recommend follow-up chest x-ray in the morning. Nursing staff reports to a bowel movement yesterday although none today. 11/08/2021 Patient continues to be in the ICU being closely monitored. Patient to continue with NG tube as patient continues to have large amounts of output noted in the container. Patient did have a bowel movement yesterday along with today per nursing staff. Patient having some low-grade temps with T-max 101.5 and IV antibiotics in the form of Zosyn have been resumed. Patient continues on TPN and is currently nothing by mouth with NG tube continued. Patient currently receiving chest physiotherapy for continued secretions noted that patient is unable to expectorate. Would encourage incentive spirometer although patient is unable to perform. Duo nebs and updrafts also ordered. Recommend blood, s putum, and urine cultures which are currently pending. Recommend repeat labs. Chest x-ray is ordered. 11/11/2021 This is a patient who has had prolonged hospitalization secondary to ischemic bowel and sepsis and has undergone gastrectomy. Patient was recently transferred out of the ICU to the [facility] unit and had become more lethargic and unresponsive patient was found unresponsive and foaming at the mouth and a code was called. Case was discussed with ICU and patient being brought back to the ICU. Patient's CODE STATUS was addressed with family per nursing staff and brother is okay with intubating the patient. Patient's CODE STATUS is no code. Patient was placed on BiPAP although continued to progress and worsen and patient is currently being intubated by pulmonary skin former. Patient family also agreeable to pressor support and continuing current medications, per nursing just does not want CPR initiated. Chest x-ray this morning shows increased interstitial densities and increased small left pleural effusion now with more pronounced airspace disease in the retrocardiac region of the left base and correlate for pneumonia and developing pulmonary vascular congestion. Magnesium also low at 1.4 and being replaced. 11/12/2021 Patient is seen in follow-up continues to be closely monitored in the ICU continued under mechanical ventilation and is sedated. Multiple medical consultations including general surgery. Chest x-ray today shows bilateral infiltrates greater on the left with small left effusion correlate for interstitial pneumonitis versus congestion otherwise findings are stable. Patient is continued on IV antibiotics and awaiting for bronchial washings to finalize. Blood cultures have been negative. Patient continues to have low- grade intermittent temps and continues to be tachypneic. FiO2 is currently 40% with a PEEP of 5. No plans for extubation today. Per nursing staff there continues to be large amounts of output noted in the NG and appear maroon- colored in nature and again general surgery is following. Patient has not had any reported bowel movements per nursing staff since 11/08/2021. There are positive bowel sounds noted on exam and abdomen is soft. Patient underwent CT abdomen yesterday showing pleural effusions with extensive lower lobe pulmonary consolidation and atelectasis similar to old exam with abdominal ascites fluid slightly improved compared to last exam and there is evidence of mild small bowel ileus with no free air and cholelithiasis noted. There is subcutaneous emphysema which is mild around the abdomen and pelvis which is improved compared to last exam as well. 11/13/2021 Patient continues in the ICU in critical condition. Patient was brought back to surgery last night and is status post exploratory laparotomy, drainage of upper abdominal abscess, lysis of adhesions and small bowel resection. Patient continues with TPN and is NPO. Patient continues on mechanical vent with an FI02 of 40% and peep of 5. 2JP drains noted with bilious and serosanguineous fluid and [employer]ER noted with dark maroon colored drainage. Per nursing staff NG output has decreased. No bowel movements reported. Patient continues on Levophed as well. IV antibiotics as patient continues to be febrile. 11/14/2021 Patient is seen today continues to be closely monitored in the ICU remains on mechanical vent with sedation. FiO2 is 40% with a PEEP of 5. Patient continues to be followed by pulmonary skin former along with general surgery. Per nursing staff copious amounts of drainage from the EBONY drain that is bilious most likely continued leak. NG tube continues to have output which appears more maroon and blood tinged and hemoglobin is down to be 6.5 and waiting to receive a unit of PRBC. Patient is afebrile today. Some of the bronchial washings showing Cortney albicans although preliminary and awaiting other cultures. Patient is also maintained on sodium bicarb drip along with fluconazole and Levophed is cu rrently off. Patient continues on IV antibiotics in the form of Zosyn and will continue along with vancomycin. 11/15/2021 Patient is seen today in the ICU continues to be in critical condition being closely monitored. Patient remains on mechanical ventilation with an FiO2 of 40% and PEEP is 5. Patient continues on sodium bicarb drip along with sulconazole and Zosyn along with vancomycin and will continue. Patient continues to be sedated with propofol and has IV Dilaudid as needed. Patient continues with low-grade intermittent temps and preliminary body fluid cultures growing gram-negative bacilli and yeast species along with Cortney albicans. Awaiting finalized cultures. Patient off pressor support and maintaining adequate blood pressure. WBC mildly down at 20.3 and hemoglobin is 7.3 today. Per nursing staff there was a bowel movement noted that was bloody today. Sedation holidays being conducted to assess for possible weaning and extubation with neurology following as well. Chest x-ray today shows diffuse pleural parenchymal changes with bilateral consolidation and pleural effusions to correlate for pneumonia and CHF is not excluded. Overall prognosis is extremely guarded. 11/16/2021 Patient is currently in the MICU. Was extubated this morning. Patient is able to open his eyes and track but could not communicate. Bronchoalveolar lavage culture showed Cortney albicans. Chest x-ray today showed findings favors CHF exacerbation as there is mild cardiomegaly with mild central vascular congestion and suspected small bilateral pleural effusions with associated bibasilar atelectasis and likely acute infiltrates. Correlate clinically. Laboratory showed WBC 22.8 hemoglobin 7.1 sodium 137 potassium 4.4 chloride 115 bicarb is 18 BUN 34 and creatinine 1.37 and calcium 8.1 Patient is being continued antibiotics above ertapenem. Continue Lasix 40 mg every 12 and TPN. Pulmonary and general surgery is on board. Current medications reviewed. Review of systems: Unable to obtain as patient Objective - Vital Signs Vital signs: Vital Signs Temp 98.5 F 11/16/21 20:00 Pulse 98 11/16/21 22:00 Resp 23 11/16/21 22:00 BP 133/79 11/16/21 21:00 Pulse Ox 100 11/16/21 22:00 Intake & Output 11/16/21 11/16/21 11/17/21 06:59 18:59 06:59 Intake Total 1762.195 0581.865 585.787 Output Total 2635 1675 1415 Balance -745.000 256.865 -829.213 Intake: IV 1690 1830 520 Dextrose 5% in Water 1, 600 600 200 000 ml @ 50 mls/hr IV . Q23H ROBERTO with Sodium Bicarb (1 Meq/ml) 150 ml Rx#:[id number] Fluconazole in NaCl,Iso- 100 Osm 400 mg In Saline 1 200ml.bag @ 100 mls/hr IVPB DAILY [facility] Rx#: [id number] Piperacillin-Tazobactam 3 200 .375 gm In Sodium Chloride 0.9% 100 ml @ 25 mls/hr IVPB Q8HR ROBERTO Rx# :[id number] TPN 840 930 320 Vancomycin 1,500 mg In 250 Sodium Chloride 0.9% 250 ml @ 125 mls/hr IVPB Q12HR [facility] Rx#:[id number] Intake, IV Titration 200.000 101.865 65.787 Amount Dexmedetomidine/0.9% NaCl 1.865 65.787 (Pmx) 400 mcg In Empty Bag 1 bag @ 0.2 MCG/KG/HR 4.475 mls/hr IV .[id number] [facility] Rx#:[id number] propofoL 1,000 mg In 200.000 100 Empty Bag 1 bag @ 20 MCG/ KG/MIN 9.684 mls/hr IV . [id number] [facility] Rx#:[id number] Output: Gastric Drainage 1000 650 Drainage 30 15 Left Abdomen 10 10 Right Abdomen 20 5 Urine 1605 1675 750 Other: Voiding Method Indwelling Catheter Indwelling Catheter Indwelling Catheter # Bowel Movements 1 ABP, PAP, CO, CI - Last Documented Arterial Blood Pressure 158/58 - Exam PHYSICAL EXAMINATION: GENERAL: Patient is 51-year-old male who is autistic . able to track eyes. does not communicate, HEENT: Pupils are round and equally reacting to light. EOMI. No scleral icterus. No conjunctival pallor. Normocephalic, atraumatic. No pharyngeal erythema. No thyromegaly. NG tube noted with dark maroon blood CARDIOVASCULAR: S1 and S2 muffled PULMONARY: Diminished breath sounds bilaterally with some scattered crackles and rhonchi noted ABDOMEN: Sluggish Bowel sounds noted on exam, abdominal binder and surgical dressing, 2 EBONY drains with one attached to suction on the wall with continued bilious drainage noted MUSCULOSKELETAL: No joint swelling or deformity. EXTREMITIES: No cyanosis, clubbing, generalized peripheral edema noted. NEUROLOGICAL: unable to assess as patient is intubated and sedated SKIN: No rashes. - Labs CBC & Chem 7: 11/17/21 04:32 11/17/21 04:32 Labs: Abnormal Lab Results - Last 24 Hours (Table) 11/16/21 11/16/21 11/16/21 Range/Units 00:09 04:45 04:45 WBC 22.8 H (3.8-10.6) k/uL RBC 2.62 L (4.30-5.90) m/uL Hgb 7.1 L (13.0-17.5) gm/dL Hct 22.9 L (39.0-53.0) % RDW 18.8 H (11.5-15.5) % Plt Count 522 H (150-450) k/uL ABG pCO2 (35-45) mmHg ABG pO2 (83-108) mmHg ABG HCO3 (21-25) mmol/L ABG O2 Saturation (94-97) % Chloride 115 H (98-107) mmol/L Carbon Dioxide 18 L (22-30) mmol/L BUN 34 H (9-20) mg/dL Creatinine 1.37 H (0.66-1.25) mg/dL Glucose 131 H (74-99) mg/dL POC Glucose (mg/dL) 134 H (75-99) mg/dL Calcium 8.1 L (8.4-10.2) mg/dL 11/16/21 11/16/21 11/16/21 Range/Units 06:10 10:54 11:55 WBC (3.8-10.6) k/uL RBC (4.30-5.90) m/uL Hgb (13.0-17.5) gm/dL Hct (39.0-53.0) % RDW (11.5-15.5) % Plt Count (150-450) k/uL ABG pCO2 34 L (35-45) mmHg ABG pO2 148 H 128 H (83-108) mmHg ABG HCO3 20 L 20 L (21-25) mmol/L ABG O2 Saturation 98.7 H 98.7 H (94-97) % Chloride (98-107) mmol/L Carbon Dioxide (22-30) mmol/L BUN (9-20) mg/dL Creatinine (0.66-1.25) mg/dL Glucose (74-99) mg/dL POC Glucose (mg/dL) 141 H (75-99) mg/dL Calcium (8.4-10.2) mg/dL 11/16/21 Range/Units 17:30 WBC (3.8-10.6) k/uL RBC (4.30-5.90) m/uL Hgb (13.0-17.5) gm/dL Hct (39.0-53.0) % RDW (11.5-15.5) % Plt Count (150-450) k/uL ABG pCO2 (35-45) mmHg ABG pO2 (83-108) mmHg ABG HCO3 (21-25) mmol/L ABG O2 Saturation (94-97) % Chloride (98-107) mmol/L Carbon Dioxide (22-30) mmol/L BUN (9-20) mg/dL Creatinine (0.66-1.25) mg/dL Glucose (74-99) mg/dL POC Glucose (mg/dL) 136 H (75-99) mg/dL Calcium (8.4-10.2) mg/dL Microbiology - Last 24 Hours (Table) 11/10/21 18:03 Blood Culture - Final Blood No Growth after 144 hours 11/13/21 20:40 Gram Stain - Final Aspirate Body Fluid Culture - Final Escherichia coli Cortney albicans Assessment and Plan Assessment: Assessment: -Sepsis, present on admission secondary to ischemia of the lateral portion of the stomach and mild ischemia of the proximal jejunum -Post operative partial gastrectomy for ischemic stomach and also had ischemic ileum. -Acute blood loss anemia, status post surgery continued bleeding noted and patient also did have bloody bowel movement, acute GI bleed -Acute hypoxic respiratory failure secondary to possible aspiration with acute left lower lobe pneumonia, requiring mechanical ventilator -Pneumoperitoneum, suspected gastric leak and section of proximal jejunum with ischemic changes status post exploratory laparotomy, drainage of upper abdominal abscess, lysis of adhesions and small bowel resection on 11/12/2021. -Septic shock status postoperatively -Anion gap metabolic acidosis secondary to lactic acidosis which improved, acidosis secondary to hyperchloremia -Acute renal failure secondary to acute blood loss from septic shock -History of CVA TIA -History diabetes mellitus type 2, uncontrolled -History of hypertension -History of autism -History of intellectual impairment -GI Prophylaxis Protonix -DVT Prophylaxis Subcu heparin -NO CODE Plan: Recommend to continue with ICU management and close monitoring. Patient is status post surgical intervention on 11/12/2021 secondary to pneumoperitoneum, suspected gastric leak and section of proximal jejunum with ischemic changes status post exploratory laparotomy, drainage of upper abdominal abscess, lysis of adhesions and small bowel resection. Patient is currently off pressor support and maintaining adequate blood pressure. Pt. was extubated on 11/16. Patient is status post 2 units of PRBC and hemoglobin is 7.3. continued on IV antibiotics and preliminary bronchial washing showing Cortney along with gram- negative bacilli and finalized cultures are pending. Patient continues to be in critical condition with extremely guarded and overall poor prognosis. This was again discussed with the brother at the bedside and will discuss further with other family members about possible comfort care. Time with Patient: Greater than 30
--- NOTE | 2021-11-17 23:59 | P.PN ---
Subjective Progress Note Date: 11/17/21 Patient was admitted for nausea vomiting diarrhea believed to have gastroenteritis. Patient continued to have vomiting and started having abdominal tenderness because of which CT of the abdomen was obtained which showed pneumatosis coli along with some gas in the venous system concern for ischemic bowel. Patient was started on Zosyn. Patient subsequently decompensated patient became hypotensive with BP of 60/40 transferred to ICU patient was given 3 L of boluses of IV fluid NG tube was placed which showed bloody output . Patient in septic shock and receiving norepinephrine at this time. Recent echo showed normal ejection fraction. Patient had CTA of the chest which was negative for pulmonary embolism patient creatinine has worsened and went up to 2.80 today from 1.14 yesterday and this is secondary to acute tubular necrosis from sepsis and septic shock. Patient does have lactic acidosis, patient does have lactic acidosis with lactic acidosis 7.5. Patient will be given 1 L of IV fluids continue pressor support. he is intubated and sedated. 10/31/2021 Patient is started having urine output. Patient underwent a arthrotomy yesterday and found to have ischemia of the lateral portion of the stomach and ischemia of the proximal jejunum patient underwent partial gastrectomy. Patient is presently on that to pressors maximized on norepinephrine, patient is also on vasopressin receiving albumin, IV fluids started having minimal urine output patient was anuric last night. Patient's chloride is highly elevated leading to metabolic acidosis patient also has an anion gap metabolic acidosis from lactic acidosis which appears to be improving at this time patient's overall clinical condition is guarded and the prognosis is poor. Patient Y blood cell count went down in fact patient is neutropenic now. Patient is presently not receiving any nutrition at this time. 11/01/2021 Patient is seen in follow-up continues to be closely monitored in the ICU in critical condition. Multiple medical consultations including pulmonary risk control field representative, cardiology, surgery following closely. Patient is status post partial gastrectomy postop day #2. Patient continues on IV Zosyn along with normal saline at 75 ML per hour. Per nursing staff patient continues on Levophed along with vasopressin for pressor support. Patient not tolerating weaning very well to assess mentation. Patient continues on sedation of propofol and will continue. Chest x-ray today shows basilar atelectasis, may be associated effusion and to correlate to exclude pneumonia. Per nursing staff there has been minimal NG tube output and of note on the x-ray the distal tip of the NG tube is obscured although unable to fully see as there is overlying artifacts with the telemetry monitoring and the patient is rotated. Patient is also having hypoglycemic events and was started on dextrose. Surgery plans for TPN for nutritional support. Family at the bedside today and their questions and concerns were answered. 11/02/2021 Patient evaluated today in the ICU he is postoperative day #3 for partial gastrectomy, currently intubated with an FiO2 of 30% with a PEEP of 5. Current oxygen saturations are 99 to 100%. Blood pressures 119/61, respirations 28, heart rate 107, afebrile. Chest x-ray today shows a stable chest with pleural effusion unchanged, perihilar and basilar infiltrates persist. Per nurse about 500 mLs output from NG tube in the last 12 hours. Continues on IV lasix, TPN, IV zosyn. Pressor support and propfol are currently on hold. Blood pressures are maintaining 120s systolic, heart rate 113 sinus tachycardia, afebrile, respirations 27. Patient with indwelling catheter, urine is dark susana, per nurse no BM since surgery, bowels are absent left lower quadrant, hypoactive to the right quadrant. Labs today show white count 6, hemoglobin 8.6, sodium 142, potassium 3.9, chloride 124, CO2 15, BUN 41, creatinine 1.39, blood glucose in the 80s, calcium 7.2, total bili 1.7, AST 145, ALT 59. Patient is being followed closely by pulmonary, cardiology, and surgical services. 11/03/2021 Patient evaluated today and closely monitored in ICU remains in critical condition. Patient's been off sedation for 24 hours. He is currently spontaneous eye opening, eyes are tracking however he does not move his face, not following motor commands unable to wiggle fingers. Once patient is more al ert may tolerate extubation. He continues to be vented, Fi02 30% with a PEEP of 5 his current oxygen saturation 96%, blood pressure 112/74, heart rate sinus tachycardic in the low 100's, he has been afebrile. Patient has been in a negative fluid balance with -1.8 Liters in the last 24 hours and received 3 doses of IV lasix which is now discontinued. Bowel sounds are hypoactive, abdominal binder in place with dressings intact to midline incision, no bowel movements or passing gas as reported by RN. Creatinine slightly increased today to 1.44, BUN 37. No white count, hemoglobin stable at 8.2, platelets decreased to 40's for the last 2 days, heparin was discontinued, continues with SCD's. Liver enzymes stable from yesterday. Continues on D10 infusion, TPN, maintaining blood pressures off pressor support. Continues on IV zosyn. Chest xray today shows unchanged pleural effusion. Patient remains in the ICU followed closely by pulmonary, cardiology, and surgical services in critical condition. Code status was changed to DNR by family. 11/04/2021 Patient evaluated today in the intensive care unit, he is more alert than yesterday. Per RN patient had a large bowel movement today and bowels are hypoactive today in all quadrants. BM was a maroon color per nurse. Abdominal binder in place. Continues with rivas catheter with over 3L of urine output in the last 24 hours, still with peripheral edema. IV lasix 60 mg x1 was given today. NGT remains in place with only 50 mLs of output overnight. Patient remains off sedation, remains off pressor support. Blood pressure today 115/69, heart rate 106, low grade fever this morning 99.2 axillary, and patient was extubated mid morning is on a 15 L HF cannula. Chest xray this morning shows stable bilateral consolidation and pleural effusion. Remains on D10 gtt at 20 mLs per hour, TPN/Lipids, and IV zosyn. Patient also received potassium supple mentation today. Followed closely by multiple consultations including cardiology, pulmonary, and surgery and remains in guarded condition. Labs reviewed: sodium 135, potassium 3.2, chloride 120, CO2 20, BUN 45, creat 1.26, blood glucose in the 110's, AST 81, ALT and alk phos have normalized. 11/05/2021 Patient is seen and evaluated in follow-up continues to be in the ICU under close monitoring. Patient was recently extubated and continues on 5 L high flow nasal cannula and oxygen saturations have been 97-100%. Multiple medical consultations including pulmonary risk control field representative and surgery following closely. Chest x-ray today shows removal of endotracheal tube along with NG tube and central venous catheter on the right remains in place with no evident pneumothorax and to correlate for pneumonia, congestive heart failure, possible effusions and associated atelectasis versus edema. Patient did receive a dose of IV Lasix yesterday. Neurology consulted and CT of the brain without contrast ordered to assess mentation which is currently pending. Patient is continued on D10 and water and maintaining blood sugars in the 120s and will continue current regimen. Hemoglobin is 7.7 today with no bleeding noted. Platelets on the lower side at 65 although improved from previous and will continue to monitor closely with repeat labs in the morning. Patient also continues on IV Zosyn and will continue at this time. 11/06/2021 Patient is seen in follow-up continues to be in the ICU with multiple medical consultations following. Patient was evaluated by neurology and EEG was ordered and pending. Patient underwent CT of the brain which showed no acute abnormality noted. Patient also had chest x-ray today which shows no significant interval change compared to yesterday with continued questionable pulmonary infiltration at the mid to lower lung zones and there is some congested pulmonary vasculature with bilateral pleural effusions. Patient had been receiving one-time doses of IV Lasix daily and will add scheduled 40 mg IV Lasix and recommend repeat labs and follow-up chest x-ray. Patient is tolerating 3 L high flow via nasal cannula and maintaining oxygen saturations above 97%. Patient continues with significant weakness and PT/OT therapy consulted to follow the patient daily. Patient noted to have increased output noted in the NG tube and general surgery following an plan is for CT abdomen with contrast this afternoon. Will await report. Continues to be nothing by mouth on TPN and will continue for now. 11/07/2021 Patient is seen and continues to be closely monitored in the ICU. Patient underwent CT abdomen and pelvis which shows some resolution of the previously seen gastric pneumatosis with mild wall thickening of the stomach with questionable minimal residual pneumatosis of the second and third part of the duodenum. There is noted 3 flow of the ingested oral contrast on the ileocecal junction with no evidence of contrast leak. There are slightly dilated small bowel loops measuring 3.3 cm with no definite transition point which may suggest an element of ileus. There is some diffuse bowel thickening of the diana nonspecific and fluid-filled colon with thickened wall that may suggest colitis. Also some moderate amount of free abdominal and pelvic fluid with peritoneal fat stranding and most probably related to postoperative changes although peritonitis cannot be excluded. There is a 2.8 cm gallbladder stone with no gallbladder wall thickening or gross signs of acute cholecystitis with no definite intrahepatic focal lesions identified. And there is some bilateral nasal pleural effusions and subsegmental pulmonary atelectasis demonstrating air bronchogram within. Patient is not currently on antibiotics and patient is afebrile. WBC is 8.4, hemoglobin is 7.9, BMP is noted and magnesium is 2.4, triglycerides found to be elevated at 256. Multiple medical consultations following and will continue to follow closely. All intake of fluids have been decreased to 70 mL per hour including TPN. Recommend follow-up chest x-ray in the morning. Nursing staff reports to a bowel movement yesterday although none today. 11/08/2021 Patient continues to be in the ICU being closely monitored. Patient to continue with NG tube as patient continues to have large amounts of output noted in the container. Patient did have a bowel movement yesterday along with today per nursing staff. Patient having some low-grade temps with T-max 101.5 and IV antibiotics in the form of Zosyn have been resumed. Patient continues on TPN and is currently nothing by mouth with NG tube continued. Patient currently receiving chest physiotherapy for continued secretions noted that patient is unable to expectorate. Would encourage incentive spirometer although patient is unable to perform. Duo nebs and updrafts also ordered. Recommend blood, s putum, and urine cultures which are currently pending. Recommend repeat labs. Chest x-ray is ordered. 11/11/2021 This is a patient who has had prolonged hospitalization secondary to ischemic bowel and sepsis and has undergone gastrectomy. Patient was recently transferred out of the ICU to the [facility] unit and had become more lethargic and unresponsive patient was found unresponsive and foaming at the mouth and a code was called. Case was discussed with ICU and patient being brought back to the ICU. Patient's CODE STATUS was addressed with family per nursing staff and brother is okay with intubating the patient. Patient's CODE STATUS is no code. Patient was placed on BiPAP although continued to progress and worsen and patient is currently being intubated by pulmonary risk control field representative. Patient family also agreeable to pressor support and continuing current medications, per nursing just does not want CPR initiated. Chest x-ray this morning shows increased interstitial densities and increased small left pleural effusion now with more pronounced airspace disease in the retrocardiac region of the left base and correlate for pneumonia and developing pulmonary vascular congestion. Magnesium also low at 1.4 and being replaced. 11/12/2021 Patient is seen in follow-up continues to be closely monitored in the ICU continued under mechanical ventilation and is sedated. Multiple medical consultations including general surgery. Chest x-ray today shows bilateral infiltrates greater on the left with small left effusion correlate for interstitial pneumonitis versus congestion otherwise findings are stable. Patient is continued on IV antibiotics and awaiting for bronchial washings to finalize. Blood cultures have been negative. Patient continues to have low- grade intermittent temps and continues to be tachypneic. FiO2 is currently 40% with a PEEP of 5. No plans for extubation today. Per nursing staff there continues to be large amounts of output noted in the NG and appear maroon- colored in nature and again general surgery is following. Patient has not had any reported bowel movements per nursing staff since 11/08/2021. There are positive bowel sounds noted on exam and abdomen is soft. Patient underwent CT abdomen yesterday showing pleural effusions with extensive lower lobe pulmonary consolidation and atelectasis similar to old exam with abdominal ascites fluid slightly improved compared to last exam and there is evidence of mild small bowel ileus with no free air and cholelithiasis noted. There is subcutaneous emphysema which is mild around the abdomen and pelvis which is improved compared to last exam as well. 11/13/2021 Patient continues in the ICU in critical condition. Patient was brought back to surgery last night and is status post exploratory laparotomy, drainage of upper abdominal abscess, lysis of adhesions and small bowel resection. Patient continues with TPN and is NPO. Patient continues on mechanical vent with an FI02 of 40% and peep of 5. 2JP drains noted with bilious and serosanguineous fluid and [employer] noted with dark maroon colored drainage. Per nursing staff NG output has decreased. No bowel movements reported. Patient continues on Levophed as well. IV antibiotics as patient continues to be febrile. 11/14/2021 Patient is seen today continues to be closely monitored in the ICU remains on mechanical vent with sedation. FiO2 is 40% with a PEEP of 5. Patient continues to be followed by pulmonary risk control field representative along with general surgery. Per nursing staff copious amounts of drainage from the EBONY drain that is bilious most likely continued leak. NG tube continues to have output which appears more maroon and blood tinged and hemoglobin is down to be 6.5 and waiting to receive a unit of PRBC. Patient is afebrile today. Some of the bronchial washings showing Cortney albicans although preliminary and awaiting other cultures. Patient is also maintained on sodium bicarb drip along with fluconazole and Levophed is cu rrently off. Patient continues on IV antibiotics in the form of Zosyn and will continue along with vancomycin. 11/15/2021 Patient is seen today in the ICU continues to be in critical condition being closely monitored. Patient remains on mechanical ventilation with an FiO2 of 40% and PEEP is 5. Patient continues on sodium bicarb drip along with sulconazole and Zosyn along with vancomycin and will continue. Patient continues to be sedated with propofol and has IV Dilaudid as needed. Patient continues with low-grade intermittent temps and preliminary body fluid cultures growing gram-negative bacilli and yeast species along with Cortney albicans. Awaiting finalized cultures. Patient off pressor support and maintaining adequate blood pressure. WBC mildly down at 20.3 and hemoglobin is 7.3 today. Per nursing staff there was a bowel movement noted that was bloody today. Sedation holidays being conducted to assess for possible weaning and extubation with neurology following as well. Chest x-ray today shows diffuse pleural parenchymal changes with bilateral consolidation and pleural effusions to correlate for pneumonia and CHF is not excluded. Overall prognosis is extremely guarded. 11/16/2021 Patient is currently in the MICU. Was extubated this morning. Patient is able to open his eyes and track but could not communicate. Bronchoalveolar lavage culture showed Cortney albicans. Chest x-ray today showed findings favors CHF exacerbation as there is mild cardiomegaly with mild central vascular congestion and suspected small bilateral pleural effusions with associated bibasilar atelectasis and likely acute infiltrates. Correlate clinically. Laboratory showed WBC 22.8 hemoglobin 7.1 sodium 137 potassium 4.4 chloride 115 bicarb is 18 BUN 34 and creatinine 1.37 and calcium 8.1 Patient is being continued antibiotics above ertapenem. Continue Lasix 40 mg every 12 and TPN. Pulmonary and general surgery is on board. 11/17/2021 Patient is currently resting in bed. Anxious and restless and was started on Precedex. Patient was successfully extubated on 11/16/2021. Currently on 6 L oxygen via nasal cannula. NG tube is in place. Patient is also on TPN. Patient is being cardiogram antibiotics no cough at the panel. Also on IV Lasix 40 mg every 12. Chest x- ray showed findings favor CHF exacerbation and fluid overload state as there is mild cardiomegaly with mild central venous congestion. Patient has been afebrile. No diarrhea. No sputum production. Pulmonary and general surgery is on board. Current medications reviewed. Review of systems: Unable to obtain as patient Objective - Vital Signs Vital signs: Vital Signs Temp 99.0 F 11/17/21 16:00 Pulse 110 H 11/17/21 18:00 Resp 23 11/17/21 18:00 BP 135/61 11/17/21 17:00 Pulse Ox 97 11/17/21 18:00 Intake & Output 11/16/21 11/17/21 11/17/21 18:59 06:59 18:59 Intake Total 0914.701 1282.023 1780 Output Total 1675 2925 1895 Balance 256.865 -234.977 -115 Weight 89.1 kg Intake: IV 1830 1560 980 Dextrose 5% in Water 1, 600 600 550 000 ml @ 50 mls/hr IV . Q23H ROBERTO with Sodium Bicarb (1 Meq/ml) 150 ml Rx#:[id number] Ertapenem 1 gm In Sodium 50 Chloride 0.9% 50 ml @ 100 mls/hr IVPB DAILY [facility] Rx #:[id number] Fluconazole in NaCl,Iso- 100 200 Osm 400 mg In Saline 1 200ml.bag @ 100 mls/hr IVPB DAILY [facility] Rx#: [id number] Piperacillin-Tazobactam 3 200 100 .375 gm In Sodium Chloride 0.9% 100 ml @ 25 mls/hr IVPB Q8HR ROBERTO Rx# :[id number] TPN 930 960 80 Intake, IV Titration 311.331 7314.023 Amount Dexmedetomidine/0.9% NaCl 1.865 100.023 (Pmx) 400 mcg In Empty Bag 1 bag @ 0.2 MCG/KG/HR 4.475 mls/hr IV .[id number] [facility] Rx#:[id number] Potassium Acetate 40 meq 1030 Calcium Gluconate 1 gm In Amino Acid 5%-D15w 1,000 ml @ 80 mls/hr IV .BY DURATION ROBERTO Rx#: [id number] propofoL 1,000 mg In 100 Empty Bag 1 bag @ 20 MCG/ KG/MIN 9.684 mls/hr IV . [id number] [facility] Rx#:[id number] TPN/PPN 800 Mvi, Adult No.4 with Vit 800 K 10 ml Trace (Conc-1Ml/ Dose) 1 ml Potassium Acetate 40 meq Calcium Gluconate 1 gm In Amino Acid 5%-D15w 1,000 ml @ 80 mls/hr IV .BY DURATION ROBERTO Rx#:[id number] Output: Gastric Drainage 650 Drainage 15 Left Abdomen 10 Right Abdomen 5 Urine 1675 2010 1895 Other 250 Other: Voiding Method Indwelling Catheter Indwelling Catheter Indwelling Catheter # Bowel Movements 1 1 ABP, PAP, CO, CI - Last Documented Arterial Blood Pressure 147/64 - Exam PHYSICAL EXAMINATION: GENERAL: Patient is 51-year-old male who is autistic . able to track eyes. does not communicate, HEENT: Pupils are round and equally reacting to light. EOMI. No scleral icterus. No conjunctival pallor. Normocephalic, atraumatic. No pharyngeal erythema. No thyromegaly. NG tube noted . CARDIOVASCULAR: S1 and S2 muffled PULMONARY: Diminished breath sounds bilaterally with some scattered crackles and rhonchi noted ABDOMEN: Sluggish Bowel sounds noted on exam, abdominal binder and surgical bernarda ssing, 2 EBONY drains with one attached to suction on the wall with continued bilious drainage noted MUSCULOSKELETAL: No joint swelling or deformity. EXTREMITIES: No cyanosis, clubbing, generalized peripheral edema noted. NEUROLOGICAL: unable to assess as patient is intubated and sedated SKIN: No rashes. - Labs CBC & Chem 7: 11/17/21 04:32 11/17/21 04:32 Labs: Abnormal Lab Results - Last 24 Hours (Table) 11/17/21 11/17/21 11/17/21 Range/Units 00:20 04:32 04:32 WBC 18.7 H (3.8-10.6) k/uL RBC 2.61 L (4.30-5.90) m/uL Hgb 7.1 L (13.0-17.5) gm/dL Hct 22.6 L (39.0-53.0) % RDW 19.2 H (11.5-15.5) % Plt Count 505 H (150-450) k/uL Neutrophils # (Manual) 16.20 H (1.3-7.7) k/uL Metamyelocytes # (Man) 0.56 H (0) k/uL Chloride 110 H (98-107) mmol/L BUN 40 H (9-20) mg/dL Creatinine 1.54 H (0.66-1.25) mg/dL Glucose 134 H (74-99) mg/dL POC Glucose (mg/dL) 128 H (75-99) mg/dL 11/17/21 11/17/21 11/17/21 Range/Units 06:03 12:58 18:16 WBC (3.8-10.6) k/uL RBC (4.30-5.90) m/uL Hgb (13.0-17.5) gm/dL Hct (39.0-53.0) % RDW (11.5-15.5) % Plt Count (150-450) k/uL Neutrophils # (Manual) (1.3-7.7) k/uL Metamyelocytes # (Man) (0) k/uL Chloride (98-107) mmol/L BUN (9-20) mg/dL Creatinine (0.66-1.25) mg/dL Glucose (74-99) mg/dL POC Glucose (mg/dL) 162 H 129 H 144 H (75-99) mg/dL Microbiology - Last 24 Hours (Table) 11/10/21 18:03 Blood Culture - Final Blood No Growth after 144 hours Assessment and Plan Assessment: Assessment: -Sepsis, present on admission secondary to ischemia of the lateral portion of the stomach and mild ischemia of the proximal jejunum -Post operative partial gastrectomy for ischemic stomach and also had ischemic ileum. -Acute blood loss anemia, status post surgery continued bleeding noted and patient also did have bloody bowel movement, acute GI bleed -Acute hypoxic respiratory failure secondary to possible aspiration with acute left lower lobe pneumonia, requiring mechanical ventilator -Pneumoperitoneum, suspected gastric leak and section of proximal jejunum with ischemic changes status post exploratory laparotomy, drainage of upper abdominal abscess, lysis of adhesions and small bowel resection on 11/12/2021. -Septic shock status postoperatively -Anion gap metabolic acidosis secondary to lactic acidosis which improved, acidosis secondary to hyperchloremia -Acute renal failure secondary to acute blood loss from septic shock -History of CVA TIA -History diabetes mellitus type 2, uncontrolled -History of hypertension -History of autism -History of intellectual impairment -GI Prophylaxis Protonix -DVT Prophylaxis Subcu heparin -NO CODE Plan: Recommend to continue with ICU management and close monitoring. Patient is status post surgical intervention on 11/12/2021 secondary to pneumoperitoneum, suspected gastric leak and section of proximal jejunum with ischemic changes status post exploratory laparotomy, drainage of upper abdominal abscess, lysis of adhesions and small bowel resection. Patient is currently off pressor support and maintaining adequate blood pressure. Pt. was extubated on 11/16. Patient is status post 2 units of PRBC and hemoglobin is 7.3. continued on IV antibiotics and preliminary bronchial washing showing Cortney along with gram- negative bacilli and finalized cultures are pending. Patient continues to be in critical condition with extremely guarded and overall poor prognosis. This was again discussed with the brother at the bedside and will discuss further with other family members about possible comfort care. Time with Patient: Greater than 30
[2021-11-18] MEDS: DEXMEDETOMIDINE/0.9% NACL(PMX) 400 MCG in EMPTY BAG 1 BAG IV SCH ×2 (00:31→23:09)
[2021-11-18] MEDS: HYDROmorphone 0.5 MG/0.5 ML SYRINGE IVP PRN ×2 (01:56→14:13)
[2021-11-18] MEDS: METOCLOPRAMIDE 5 MG/ML 2 ML VIAL IVP SCH ×4 (01:57→19:58)
[2021-11-18] MEDS ORDERED: NOREPINEPHRIN 4 MG-0.9% NS PMX 4 MG/250 ML ML IV ONE (02:39)
[2021-11-18 02:58] LABS: ABG Base Excess -0.7 mmol/L; ABG HCO3 27 mmol/L (21-25); ABG Oxygen Saturation 97.3 % (94-97); ABG PCO2 64 mmHg (35-45); ABG PH 7.23 (7.35-7.45); ABG PO2 114 mmHg (83-108); ABG TCO2 29 mmol/L (19-24)
[2021-11-18 03:01] LABS: Allen Test Performed? No
--- NOTE | 2021-11-18 03:15 | XR ---
EXAMINATION TYPE: XR chest 1V portable DATE OF EXAM: 11/18/2021 COMPARISON: Yesterday HISTORY: Hypoxemia TECHNIQUE: FINDINGS: Heart is enlarged. There is some pulmonary vascular congestion. There is blunting of the co stophrenic angles. There is right jugular catheter with tip in the right atrium. There are chest lead s. IMPRESSION: There is pulmonary congestion and pleural fluid consistent with congestive heart failure which is the same or worse than exam yesterday.
[2021-11-18] MEDS ORDERED: SODIUM CHLORIDE 0.9% 2,000 ML IV ONE (03:16)
[2021-11-18] MEDS ORDERED: propofoL 100 ML IV ONE (03:16)
[2021-11-18 03:20] LABS: Anisocytosis Slight; Hypochromasia Marked; MCH 26.7 pg (25.0-35.0); MCV 88.8 fL (80.0-100.0); Mean Platelet Volume 8.8; Platelet Count 600 k/uL (150-450); Poikilocytosis Slight; RBC 2.14 m/uL (4.30-5.90); RDW 19.2 % (11.5-15.5); WBC 45.9 k/uL (3.8-10.6)
[2021-11-18 03:31] LABS: HGB 5.7 gm/dL (13.0-17.5)
[2021-11-18 03:36] LABS: Band Neutrophils % 18 %; Lymphocytes # (M) 3.21 k/uL (1.0-4.8); Monocytes # (M) 0.46 k/uL (0-1.0); Myelocytes # (M) 0.46 k/uL (0); Myelocytes % 1 %; Neutrophils % (M) 74 %; Nucleated Red Blood Cells 0 /100 WBC (0-0); Total Cells Counted 200
[2021-11-18 03:38] LABS: Anisocytosis (M) Present; Poikilocytosis (M) Present; Polychromasia Present; Stomatocytes Present; Toxic Granulation Present
[2021-11-18 03:47] LABS: Calcium 8.3 mg/dL (8.4-10.2); Magnesium 1.7 mg/dL (1.6-2.3); Phosphorus 4.1 mg/dL (2.5-4.5); Potassium 3.9 mmol/L (3.5-5.1)
--- NOTE | 2021-11-18 04:20 | XR ---
EXAMINATION TYPE: XR chest 1V portable DATE OF EXAM: 11/18/2021 COMPARISON: Today HISTORY: Respiratory failure TECHNIQUE: Single view FINDINGS: The endotracheal tube is 3.5 cm from the pelon. There is some pulmonary airspace edema. Th ere is blunting of the costophrenic angles. There is right jugular catheter with tip in the top of th e right atrium. There is nasogastric tube that appears to be in the stomach. Tip is not well seen. Trachea is midline. No pneumothorax. IMPRESSION: Congestive heart failure with pleural effusions. No change compared to exam one hour ago.
[2021-11-18 04:24] LABS: ABG Base Excess -1.1 mmol/L; ABG HCO3 25 mmol/L (21-25); ABG Oxygen Saturation 99.4 % (94-97); ABG PCO2 47 mmHg (35-45); ABG PH 7.33 (7.35-7.45); ABG PO2 303 mmHg (83-108); ABG TCO2 26 mmol/L (19-24); Allen Test Performed? Yes
[2021-11-18] MEDS: NOREPINEPHRINE 8 MG in SODIUM CHLORIDE 0.9% 250 ML IV SCH ×2 (04:36→09:00)
[2021-11-18 06:19] LABS: Glucose,Whole Blood 131 mg/dL (75-99)
[2021-11-18] MEDS: [UNRECOGNIZED DRUG - OTHER] IV SCH ×10 (06:47→22:31)
[2021-11-18] MEDS: AMINO ACID 5% IV SCH ×10 (06:47→22:31)
[2021-11-18] MEDS: CALCIUM GLUCONATE IV SCH ×10 (06:47→22:31)
[2021-11-18] MEDS: POTASSIUM ACETATE IV SCH ×10 (06:47→22:31)
[2021-11-18] MEDS: INSULIN ASPART (NovoLOG) 100 UNIT/ML VIAL SQ SCH ×3 (07:00→18:18)
[2021-11-18] MEDS: LORazepam 2 MG/ML INJ IV SCH ×3 (08:17→18:19)
[2021-11-18] MEDS: FLUCONAZOLE IN NACL,ISO-OSM 400 MG in SALINE 1 200ML.BAG IVPB SCH (08:24)
[2021-11-18] MEDS: ERTAPENEM 1 GM in SODIUM CHLORIDE 0.9% 50 ML IVPB SCH (08:24)
[2021-11-18] MEDS: PANTOPRAZOLE 40 MG/10 ML VIAL IVP SCH ×2 (08:24→19:58)
[2021-11-18] MEDS: FUROSEMIDE 10 MG/ML 4 ML VIAL IV SCH ×2 (08:24→19:58)
[2021-11-18] MEDS: CHLORHEXIDINE GLUCONATE 15 ML CUP MUCOUS MEM SCH ×2 (08:24→19:58)
[2021-11-18] MEDS: IPRATROPIUM-ALBUTEROL 3 ML NEB INHALATION SCH ×3 (08:43→20:56)
[2021-11-18] MEDS ORDERED: MAGNESIUM SULFATE-D5W PMX 1 GM in DEXTROSE/WATER 1 100ML.BAG IVPB SCH (11:00)
--- NOTE | 2021-11-18 11:39 | P.PN ---
Subjective Progress Note Date: 11/18/21 CHIEF COMPLAINT: Abdominal pain HISTORY OF PRESENT ILLNESS: Patient remains in the ICU and intubated. He was apparently extubated on Thursday and required to be reintubated this morning. Patient did have a temp of 102 heart rate 109. White count did go up from 18.7- 45.9 hemoglobin dropped to 5.7 and patient is receiving 2 units of blood. Creatinine 1.51 magnesium 1.7. NG tube output 500 mL through the night. EBONY drain output 30 mL on the left which is bilious in color and on the right 15 mL which is serosanguineous. Nursing staff has noted that patient does have a sacral decubitus ulcer and also ulceration on patient's penis. Patient is on Levophed. TPN for nutrition support. PHYSICAL EXAM: VITAL SIGNS: Reviewed. GENERAL: Intubated HEENT: Moist buccal mucosa. Head is atraumatic, normocephalic. ABDOMEN: Soft. Mildly distended. Incision site is open dressing has some small amount of serosanguineous drainage noted. Patient has retention sutures in place. ASSESSMENT: 1. Pneumoperitoneum, suspected gastric leak and section of proximal jejunum with ischemic changes status post exploratory laparotomy, drainage of upper abdominal abscess, lysis of adhesions and small bowel resection on 11/12/21 2. Ischemia of the lateral portion of the stomach and mild ischemia of the proximal jejunum status post exploratory laparotomy and partial gastrectomy on 10/30/21 3. Septic shock 4. Postoperative ileus 5. Thrombocytopenia resolved 6. Pneumonia 7. Anemia PLAN: -Continue ICU management -Continue supportive care -Continue NG tube for decompression -Continue to monitor EBONY drain output -Keep patient nothing by mouth -Continue antibiotics -Continue Reglan for ileus -Continue TPN for nutrition support -CODE STATUS DO NOT RESUSCITATE Physician Oriental Rug Stretcher note has been reviewed by physician. Signing provider agrees with the documented findings, assessment, and plan of care. 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 Based on total visit time, I have performed more than 50% of the visit. As above: The patient was reintubated yesterday and had evidence of upper GI bleeding with bloody nasogastric aspirate. Some increased blood noted in the left drain as well. Hemodynamically required pressor support however that is improving and pressors likely will be removed. Family still considering extent of care options. They intend to discuss further with ICU team tomorrow. Continue antibiotics and ventilatory support. Continue nasogastric decompression and EBONY drainage. Objective - Vital Signs Vital signs: Vital Signs Temp 99.2 F 11/18/21 10:15 Pulse 93 11/18/21 11:00 Resp 34 H 11/18/21 11:00 BP 133/57 11/18/21 10:15 Pulse Ox 98 11/18/21 11:00 Intake & Output 11/17/21 11/18/21 11/18/21 18:59 06:59 18:59 Intake Total 1860 3717.135 1161.143 Output Total 2195 1720 520 Balance -335 1997.135 641.143 Weight 90 kg Intake: IV 980 490 Dextrose 5% in Water 1, 550 000 ml @ 50 mls/hr IV . Q23H [facility] with Sodium Bicarb (1 Meq/ml) 150 ml Rx#:[id number] Ertapenem 1 gm In Sodium 50 50 Chloride 0.9% 50 ml @ 100 mls/hr IVPB DAILY [facility] Rx #:[id number] Fluconazole in NaCl,Iso- 200 200 Osm 400 mg In Saline 1 200ml.bag @ 100 mls/hr IVPB DAILY [facility] Rx#: [id number] Mvi, Adult No.4 with Vit 240 K 10 ml Trace (Conc-1Ml/ Dose) 1 ml Potassium Acetate 40 meq Calcium Gluconate 1 gm In Amino Acid 5%-D15w 1,000 ml @ 80 mls/hr IV .BY DURATION [facility] Rx#:[id number] Piperacillin-Tazobactam 3 100 .375 gm In Sodium Chloride 0.9% 100 ml @ 25 mls/hr IVPB Q8HR [facility] Rx# :[id number] TPN 80 Intake, IV Titration 3077.135 361.143 Amount Dexmedetomidine/0.9% NaCl 9.579 (Pmx) 400 mcg In Empty Bag 1 bag @ 0.2 MCG/KG/HR 4.455 mls/hr IV .[id number] [facility] Rx#:[id number] Norepinephrine 8 mg In 28.735 303.228 Sodium Chloride 0.9% 250 ml @ 0.05 MCG/KG/MIN 8.62 mls/hr IV .Q24H [facility] Rx#: [id number] Potassium Acetate 40 meq 1030 Calcium Gluconate 1 gm In Amino Acid 5%-D15w 1,000 ml @ 80 mls/hr IV .BY DURATION [facility] Rx#: [id number] Sodium Chloride 0.9% 2, 2000 000 ml @ 999 mls/hr IV . Q2H1M [facility] Rx#:[id number] propofoL 1,000 mg In 8.821 57.915 Empty Bag 1 bag @ 5 MCG/ KG/MIN 2.673 mls/hr IV . Q24H [facility] Rx#:[id number] TPN/PPN 880 640 Mvi, Adult No.4 with Vit 880 640 K 10 ml Trace (Conc-1Ml/ Dose) 1 ml Potassium Acetate 40 meq Calcium Gluconate 1 gm In Amino Acid 5%-D15w 1,000 ml @ 80 mls/hr IV .BY DURATION [facility] Rx#:[id number] Blood Product 310 Rc As-1 Unit 0 [id number] Rc As-1 Unit 310 [id number] Output: Gastric Drainage 250 50 Drainage 0 45 45 Left Abdomen 0 30 30 Right Abdomen 0 15 15 Urine 1945 1625 475 Other: Voiding Method Indwelling Catheter Indwelling Catheter Indwelling Catheter # Bowel Movements 1 ABP, PAP, CO, CI - Last Documented Arterial Blood Pressure 126/56 - Labs CBC & Chem 7: 11/18/21 02:56 11/18/21 02:56 Labs: Abnormal Lab Results - Last 24 Hours (Table) 11/11/21 11/17/21 11/17/21 Range/Units 19:05 12:58 18:16 WBC (3.8-10.6) k/uL RBC (4.30-5.90) m/uL Hgb (13.0-17.5) gm/dL Hct (39.0-53.0) % MCHC (31.0-37.0) g/dL RDW (11.5-15.5) % Plt Count (150-450) k/uL Neutrophils # (Manual) (1.3-7.7) k/uL Myelocytes # (Manual) (0) k/uL ABG pH (7.35-7.45) ABG pCO2 (35-45) mmHg ABG pO2 (83-108) mmHg ABG HCO3 (21-25) mmol/L ABG Total CO2 (19-24) mmol/L ABG O2 Saturation (94-97) % Chloride (98-107) mmol/L BUN (9-20) mg/dL Creatinine (0.66-1.25) mg/dL Glucose (74-99) mg/dL POC Glucose (mg/dL) 129 H 144 H (75-99) mg/dL Calcium (8.4-10.2) mg/dL Crossmatch See Detail 11/17/21 11/18/21 11/18/21 Range/Units 23:10 02:56 02:56 WBC (3.8-10.6) k/uL RBC (4.30-5.90) m/uL Hgb (13.0-17.5) gm/dL Hct (39.0-53.0) % MCHC (31.0-37.0) g/dL RDW (11.5-15.5) % Plt Count (150-450) k/uL Neutrophils # (Manual) (1.3-7.7) k/uL Myelocytes # (Manual) (0) k/uL ABG pH 7.23 L (7.35-7.45) ABG pCO2 64 H (35-45) mmHg ABG pO2 114 H (83-108) mmHg ABG HCO3 27 H (21-25) mmol/L ABG Total CO2 29 H (19-24) mmol/L ABG O2 Saturation 97.3 H (94-97) % Chloride 111 H (98-107) mmol/L BUN 48 H (9-20) mg/dL Creatinine 1.51 H (0.66-1.25) mg/dL Glucose 125 H (74-99) mg/dL POC Glucose (mg/dL) 128 H (75-99) mg/dL Calcium 8.3 L (8.4-10.2) mg/dL Crossmatch 11/18/21 11/18/21 11/18/21 Range/Units 02:56 04:19 04:20 WBC 45.9 H (3.8-10.6) k/uL RBC 2.14 L (4.30-5.90) m/uL Hgb 5.7 L* (13.0-17.5) gm/dL Hct 19.0 L* (39.0-53.0) % MCHC 30.0 L (31.0-37.0) g/dL RDW 19.2 H (11.5-15.5) % Plt Count 600 H (150-450) k/uL Neutrophils # (Manual) 42.20 H (1.3-7.7) k/uL Myelocytes # (Manual) 0.46 H (0) k/uL ABG pH 7.33 L (7.35-7.45) ABG pCO2 47 H (35-45) mmHg ABG pO2 303 H (83-108) mmHg ABG HCO3 (21-25) mmol/L ABG Total CO2 26 H (19-24) mmol/L ABG O2 Saturation 99.4 H (94-97) % Chloride (98-107) mmol/L BUN (9-20) mg/dL Creatinine (0.66-1.25) mg/dL Glucose (74-99) mg/dL POC Glucose (mg/dL) (75-99) mg/dL Calcium (8.4-10.2) mg/dL Crossmatch See Detail 11/18/21 Range/Units 06:17 WBC (3.8-10.6) k/uL RBC (4.30-5.90) m/uL Hgb (13.0-17.5) gm/dL Hct (39.0-53.0) % MCHC (31.0-37.0) g/dL RDW (11.5-15.5) % Plt Count (150-450) k/uL Neutrophils # (Manual) (1.3-7.7) k/uL Myelocytes # (Manual) (0) k/uL ABG pH (7.35-7.45) ABG pCO2 (35-45) mmHg ABG pO2 (83-108) mmHg ABG HCO3 (21-25) mmol/L ABG Total CO2 (19-24) mmol/L ABG O2 Saturation (94-97) % Chloride (98-107) mmol/L BUN (9-20) mg/dL Creatinine (0.66-1.25) mg/dL Glucose (74-99) mg/dL POC Glucose (mg/dL) 131 H (75-99) mg/dL Calcium (8.4-10.2) mg/dL Crossmatch
--- NOTE | 2021-11-18 12:09 | P.PN ---
Subjective Progress Note Date: 11/18/21 Principal diagnosis: Abdominal sepsis and septic shock. 11/17/2021, patient is extubated. Noted the patient was extubated successfully yesterday. Post extubation, he became slightly anxious and restless. Based on that, the patient was placed on Precedex which is still running at a dose of 0.4 mcg/kg per minute. Nevertheless, the patient survives extubation and the patient is currently on 6 L O2 nasal cannula and his history quite comfortable. At times, he is still tachypneic. . His cough is weak. He is able to clear his upper or secretions. NG tube is in place. Output has dropped since yesterday and the patient has put out approximately 250 mL of gastric material over the past 12 hours. NG tube remains in place. The patient receiving TPN for nutritional support at the rate of 80 mL an hour and the patient's fluid balance has been negative thallium and 99 mL over the past 24 hours. Noted the patient's white cell count is at 18 with a hemoglobin of 7.1. Sodium is at 137, bicarbonate 24, creatinine is at 1.5 and the patient's abdominal fluid cultures came back positive for E. coli that was resistant to Zosyn. He also has Cortney albicans. No other significant events otherwise for now. He is hemodynamically stable on no pressors. EBONY drains are in place with minimal amount of output at this point in time. He seems to be clinically anxious. No agitation at this point in time. Patient was reevaluated today on 11/18/2021, patient remains in the ICU, intubated and mechanically ventilated. He is on assist control rate of 26, volume 400 FiO2 60% and I cut it down to 50% PEEP is at 5. ABG earlier showed a pO2 of 303 pCO2 47 pH of 7.33 and this was done on on the percent FiO2. Patient remains on norepinephrine at 0.2 mcg/kg/m, he is on propofol at 25 mcg/kg/m. TPN at 80 mL per hour. He is receiving his second unit of packed RBCs this m orn, and he is on IV fluid at 10 mL per hour. Patient is sedated, his peak airway pressure is 19 plateau pressure is 21. Continues to have EBONY drains 2, and he has retention sutures. There is minimal output from his EBONY drains. Patient remains on Invanz and on Diflucan. Cultures from the EBONY d rains/abdominal fluid were positive for Cortney and for E. coli. Bronchial washing cultures positive for Cortney. Patient continues to have leukocytosis with WBC count of 45.9 hemoglobin is 5.7 this morning, and he is receiving.'s of packed RBCs this morning. Chest x-ray continues to show by basilar airspace disease/infiltrates. Highly suspicious for aspiration pneumonia. Objective - Vital Signs Vital signs: Vital Signs Temp 99.2 F 11/18/21 10:15 Pulse 93 11/18/21 11:00 Resp 34 H 11/18/21 11:00 BP 133/57 11/18/21 10:15 Pulse Ox 98 11/18/21 11:00 Intake & Output 11/17/21 11/18/21 11/18/21 18:59 06:59 18:59 Intake Total 1860 3717.135 1161.143 Output Total 2195 1720 520 Balance -335 1997.135 641.143 Weight 90 kg Intake: IV 980 490 Dextrose 5% in Water 1, 550 000 ml @ 50 mls/hr IV . Q23H [facility] with Sodium Bicarb (1 Meq/ml) 150 ml Rx#:[id number] Ertapenem 1 gm In Sodium 50 50 Chloride 0.9% 50 ml @ 100 mls/hr IVPB DAILY [facility] Rx #:[id number] Fluconazole in NaCl,Iso- 200 200 Osm 400 mg In Saline 1 200ml.bag @ 100 mls/hr IVPB DAILY [facility] Rx#: [id number] Mvi, Adult No.4 with Vit 240 K 10 ml Trace (Conc-1Ml/ Dose) 1 ml Potassium Acetate 40 meq Calcium Gluconate 1 gm In Amino Acid 5%-D15w 1,000 ml @ 80 mls/hr IV .BY DURATION [facility] Rx#:[id number] Piperacillin-Tazobactam 3 100 .375 gm In Sodium Chloride 0.9% 100 ml @ 25 mls/hr IVPB Q8HR [facility] Rx# :[id number] TPN 80 Intake, IV Titration 3077.135 361.143 Amount Dexmedetomidine/0.9% NaCl 9.579 (Pmx) 400 mcg In Empty Bag 1 bag @ 0.2 MCG/KG/HR 4.455 mls/hr IV .[id number] [facility] Rx#:[id number] Norepinephrine 8 mg In 28.735 303.228 Sodium Chloride 0.9% 250 ml @ 0.05 MCG/KG/MIN 8.62 mls/hr IV .Q24H [facility] Rx#: [id number] Potassium Acetate 40 meq 1030 Calcium Gluconate 1 gm In Amino Acid 5%-D15w 1,000 ml @ 80 mls/hr IV .BY DURATION [facility] Rx#: [id number] Sodium Chloride 0.9% 2, 2000 000 ml @ 999 mls/hr IV . Q2H1M [facility] Rx#:[id number] propofoL 1,000 mg In 8.821 57.915 Empty Bag 1 bag @ 5 MCG/ KG/MIN 2.673 mls/hr IV . Q24H [facility] Rx#:[id number] TPN/PPN 880 640 Mvi, Adult No.4 with Vit 880 640 K 10 ml Trace (Conc-1Ml/ Dose) 1 ml Potassium Acetate 40 meq Calcium Gluconate 1 gm In Amino Acid 5%-D15w 1,000 ml @ 80 mls/hr IV .BY DURATION [facility] Rx#:[id number] Blood Product 310 Rc As-1 Unit 0 [id number] Rc As-1 Unit 310 [id number] Output: Gastric Drainage 250 50 Drainage 0 45 45 Left Abdomen 0 30 30 Right Abdomen 0 15 15 Urine 1945 1625 475 Other: Voiding Method Indwelling Catheter Indwelling Catheter Indwelling Catheter # Bowel Movements 1 ABP, PAP, CO, CI - Last Documented Arterial Blood Pressure 126/56 - Exam Physical Exam: Revealed 51-year-old white male intubated sedated and mechanically ventilated, in no distress. Head: Atraumatic, normocephalic. Looks pale. HEENT: PERRLA, EOMI, nonicteric, no neck masses, no JVD, endotracheal tube and orogastric tube are intact. Dry mucous membranes noted. Chest: Symmetrical chest expansion, crackles at the bases. Cardiac Exam: [Normal S1 and S2, no S3 gallop, no murmur.] Abdomen: Soft, abdominal dressing is in place, EBONY drains noted. Nontender abdomen. Soft. Diminished bowel sounds. Extremities: [No clubbing, trace of edema, no cyanosis, diminished distal pulses bilaterally.. Neurological Exam: Not assessed, patient is fully sedated Psychiatric: Could not assess. - Labs CBC & Chem 7: 11/18/21 02:56 11/18/21 02:56 Labs: Abnormal Lab Results - Last 24 Hours (Table) 11/11/21 11/17/21 11/17/21 Range/Units 19:05 12:58 18:16 WBC (3.8-10.6) k/uL RBC (4.30-5.90) m/uL Hgb (13.0-17.5) gm/dL Hct (39.0-53.0) % MCHC (31.0-37.0) g/dL RDW (11.5-15.5) % Plt Count (150-450) k/uL Neutrophils # (Manual) (1.3-7.7) k/uL Myelocytes # (Manual) (0) k/uL ABG pH (7.35-7.45) ABG pCO2 (35-45) mmHg ABG pO2 (83-108) mmHg ABG HCO3 (21-25) mmol/L ABG Total CO2 (19-24) mmol/L ABG O2 Saturation (94-97) % Chloride (98-107) mmol/L BUN (9-20) mg/dL Creatinine (0.66-1.25) mg/dL Glucose (74-99) mg/dL POC Glucose (mg/dL) 129 H 144 H (75-99) mg/dL Calcium (8.4-10.2) mg/dL Crossmatch See Detail 11/17/21 11/18/21 11/18/21 Range/Units 23:10 02:56 02:56 WBC (3.8-10.6) k/uL RBC (4.30-5.90) m/uL Hgb (13.0-17.5) gm/dL Hct (39.0-53.0) % MCHC (31.0-37.0) g/dL RDW (11.5-15.5) % Plt Count (150-450) k/uL Neutrophils # (Manual) (1.3-7.7) k/uL Myelocytes # (Manual) (0) k/uL ABG pH 7.23 L (7.35-7.45) ABG pCO2 64 H (35-45) mmHg ABG pO2 114 H (83-108) mmHg ABG HCO3 27 H (21-25) mmol/L ABG Total CO2 29 H (19-24) mmol/L ABG O2 Saturation 97.3 H (94-97) % Chloride 111 H (98-107) mmol/L BUN 48 H (9-20) mg/dL Creatinine 1.51 H (0.66-1.25) mg/dL Glucose 125 H (74-99) mg/dL POC Glucose (mg/dL) 128 H (75-99) mg/dL Calcium 8.3 L (8.4-10.2) mg/dL Crossmatch 11/18/21 11/18/21 11/18/21 Range/Units 02:56 04:19 04:20 WBC 45.9 H (3.8-10.6) k/uL RBC 2.14 L (4.30-5.90) m/uL Hgb 5.7 L* (13.0-17.5) gm/dL Hct 19.0 L* (39.0-53.0) % MCHC 30.0 L (31.0-37.0) g/dL RDW 19.2 H (11.5-15.5) % Plt Count 600 H (150-450) k/uL Neutrophils # (Manual) 42.20 H (1.3-7.7) k/uL Myelocytes # (Manual) 0.46 H (0) k/uL ABG pH 7.33 L (7.35-7.45) ABG pCO2 47 H (35-45) mmHg ABG pO2 303 H (83-108) mmHg ABG HCO3 (21-25) mmol/L ABG Total CO2 26 H (19-24) mmol/L ABG O2 Saturation 99.4 H (94-97) % Chloride (98-107) mmol/L BUN (9-20) mg/dL Creatinine (0.66-1.25) mg/dL Glucose (74-99) mg/dL POC Glucose (mg/dL) (75-99) mg/dL Calcium (8.4-10.2) mg/dL Crossmatch See Detail 11/18/21 Range/Units 06:17 WBC (3.8-10.6) k/uL RBC (4.30-5.90) m/uL Hgb (13.0-17.5) gm/dL Hct (39.0-53.0) % MCHC (31.0-37.0) g/dL RDW (11.5-15.5) % Plt Count (150-450) k/uL Neutrophils # (Manual) (1.3-7.7) k/uL Myelocytes # (Manual) (0) k/uL ABG pH (7.35-7.45) ABG pCO2 (35-45) mmHg ABG pO2 (83-108) mmHg ABG HCO3 (21-25) mmol/L ABG Total CO2 (19-24) mmol/L ABG O2 Saturation (94-97) % Chloride (98-107) mmol/L BUN (9-20) mg/dL Creatinine (0.66-1.25) mg/dL Glucose (74-99) mg/dL POC Glucose (mg/dL) 131 H (75-99) mg/dL Calcium (8.4-10.2) mg/dL Crossmatch Assessment and Plan Assessment: Impression: Acute hypoxic respiratory failure secondary to sepsis, abdominal sepsis, septic shock, and suspect aspiration pneumonia. Status post partial gastrectomy with possible gastric wall ischemia, postoperative day #19. Status post exploratory laparotomy and intra-abdominal abscesses drainage with small bowel resection postoperative day #6. Failed extubation requiring reintubation most likely secondary to aspiration pneumonia. Acute lactic acidosis secondary to sepsis and septic shock. Acute kidney injury secondary to sepsis/septic shock. Type 2 diabetes. History of developmental delay and autism. Acute blood loss anemia requiring transfusion Recommendation: Continue ventilatory support, patient is obviously not ready to be weaned since he failed extubation over the weekend. Continue antibiotics and antifungal therapy. Continue nutritional support./TPN. Continue GI and DVT prophylaxis. Transfuse accordingly maintain hemoglobin above 7 Continue to monitor output from drains and from nasogastric tube. Continue to monitor abdominal wounds Continue aspiration precautions Continue to monitor renal status Overall prognosis remains extremely poor and guarded. Discussed his condition with the surgeon on the case. We both agree that his overall prognosis is poor, may have to discuss with the family possibly comfort care measures. In the meantime we'll continue to follow. Patient remains critically ill. Critical care time is over 30 minutes Time with Patient: Greater than 30
[2021-11-18 12:17] LABS: Glucose,Whole Blood 161 mg/dL (75-99)
[2021-11-18 14:29] LABS: Anisocytosis Slight; HCT 22.8 % (39.0-53.0); Hypochromasia Moderate; MCH 28.6 pg (25.0-35.0); MCHC 31.7 g/dL (31.0-37.0); MCV 90.4 fL (80.0-100.0); Mean Platelet Volume 8.8; Platelet Count 429 k/uL (150-450); Poikilocytosis Slight; RBC 2.52 m/uL (4.30-5.90); RDW 17.7 % (11.5-15.5); WBC 32.7 k/uL (3.8-10.6)
[2021-11-18] MEDS ORDERED: LIDOCAINE 1% INJ 10MG/ML (20 ML MDV) SQ ONE (14:33)
[2021-11-18 14:40] LABS: HGB 7.2 gm/dL (13.0-17.5)
--- NOTE | 2021-11-18 14:56 | XR ---
EXAMINATION TYPE: XR chest 1V portable DATE OF EXAM: 11/18/2021 COMPARISON: 11/18/2021 HISTORY: PICC line placement TECHNIQUE: Single frontal view of the chest is obtained. FINDINGS: PICC line appears in good position with the tip overlying the SVC. ET and NG tube stable. Right-sided central line with the tip overlying the right atrium. Persistent bilateral consolidation and small effusion greater on the left. Heart size stable. No sizable pneumothorax.. IMPRESSION: Bilateral infiltrate and small effusion greater on the left stable. Correlate for pulmon blanca edema versus diffuse pneumonia.
--- NOTE | 2021-11-18 15:14 | IR ---
PICC LINE PLACEMENT: HISTORY: Infection requiring long-term antibiotic therapy PROCEDURE: Ultrasound guidance of PICC line placement. COMPLICATIONS: None ANESTHESIA: 1. 1% Lidocaine locally. FINDINGS/TECHNIQUE: The procedure was explained to the patient. The risks, complications, benefits and alternatives were discussed and any questions were answered. Informed consent was obtained. The patient was placed supine on the fluoroscopic table and prepped and draped in the usual sterile fash ion. Utilizing a 21 gauge needle and sonographic guidance, access in the left basilic vein was achi eved and there is placement of a 0.018 guidewire. The vein is patent. A 5-F. sheath was placed over the guidewire. The guidewire and dilator were removed and a 5-F. Double lumen PICC line was placed through the sheath with the chest x-ray confirming the tip at the level of the SVC. The sheath was r emoved, the catheter was flushed and sutured into position. The patient was stable throughout the pr ocedure and remained stable upon discharge from the Department of Radiology. The vein puncture was patent under ultrasound. A lyle scale image was obtained to document patency of the vein punctured. All elements of the maximal barrier technique were utilized. IMPRESSION: 1. Successful PICC line placement under ultrasound performed bedside within the ICU.
[2021-11-18 18:16] LABS: Glucose,Whole Blood 136 mg/dL (75-99)
--- NOTE | 2021-11-18 23:36 | P.PN ---
Subjective Progress Note Date: 11/18/21 Patient was admitted for nausea vomiting diarrhea believed to have gastroenteritis. Patient continued to have vomiting and started having abdominal tenderness because of which CT of the abdomen was obtained which showed pneumatosis coli along with some gas in the venous system concern for ischemic bowel. Patient was started on Zosyn. Patient subsequently decompensated patient became hypotensive with BP of 60/40 transferred to ICU patient was given 3 L of boluses of IV fluid NG tube was placed which showed bloody output . Patient in septic shock and receiving norepinephrine at this time. Recent echo showed normal ejection fraction. Patient had CTA of the chest which was negative for pulmonary embolism patient creatinine has worsened and went up to 2.80 today from 1.14 yesterday and this is secondary to acute tubular necrosis from sepsis and septic shock. Patient does have lactic acidosi s, patient does have lactic acidosis with lactic acidosis 7.5. Patient will be given 1 L of IV fluids continue pressor support. he is intubated and sedated. 10/31/2021 Patient is started having urine output. Patient underwent a arthrotomy yesterday and found to have ischemia of the lateral portion of the stomach and ischemia of the proximal jejunum patient underwent partial gastrectomy. Patient is presently on that to pressors maximized on norepinephrine, patient is also on vasopressin receiving albumin, IV fluids started having minimal urine output patient was anuric last night. Patient's chloride is highly elevated leading to metabolic acidosis patient also has an anion gap metabolic acidosis from lactic acidosis which appears to be improving at this time patient's overall clinical condition is guarded and the prognosis is poor. Patient Y blood cell count went down in fact patient is neutropenic now. Patient is presently not receiving any nutrition at this time. 11/01/2021 Patient is seen in follow-up continues to be closely monitored in the ICU in critical condition. Multiple medical consultations including pulmonary metallurgist helper, cardiology, surgery following closely. Patient is status post partial gastrectomy postop day #2. Patient continues on IV Zosyn along with normal saline at 75 ML per hour. Per nursing staff patient continues on Levophed along with vasopressin for pressor support. Patient not tolerating weaning very well to assess mentation. Patient continues on sedation of propofol and will continue. Chest x-ray today shows basilar atelectasis, may be associated effusion and to correlate to exclude pneumonia. Per nursing staff there has been minimal NG tube output and of note on the x-ray the distal tip of the NG tube is obscured although unable to fully see as there is overlying artifacts with the telemetry monitoring and the patient is rotated. Patient is also having hypoglycemic events and was started on dextrose. Surgery plans for TPN for nutritional support. Family at the bedside today and their questions and concerns were answered. 11/02/2021 Patient evaluated today in the ICU he is postoperative day #3 for partial gastrectomy, currently intubated with an FiO2 of 30% with a PEEP of 5. Current oxygen saturations are 99 to 100%. Blood pressures 119/61, respirations 28, heart rate 107, afebrile. Chest x-ray today shows a stable chest with pleural effusion unchanged, perihilar and basilar infiltrates persist. Per nurse about 500 mLs output from NG tube in the last 12 hours. Continues on IV lasix, TPN, IV zosyn. Pressor support and propfol are currently on hold. Blood pressures are maintaining 120s systolic, heart rate 113 sinus tachycardia, afebrile, respirations 27. Patient with indwelling catheter, urine is dark susana, per nurse no BM since surgery, bowels are absent left lower quadrant, hypoactive to the right quadrant. Labs today show white count 6, hemoglobin 8.6, sodium 142, potassium 3.9, chloride 124, CO2 15, BUN 41, creatinine 1.39, blood glucose in the 80s, calcium 7.2, total bili 1.7, AST 145, ALT 59. Patient is being followed closely by pulmonary, cardiology, and surgical services. 11/03/2021 Patient evaluated today and closely monitored in ICU remains in critical condition. Patient's been off sedation for 24 hours. He is currently spontaneous eye opening, eyes are tracking however he does not move his face, not following motor commands unable to wiggle fingers. Once patient is more a lert may tolerate extubation. He continues to be vented, Fi02 30% with a PEEP of 5 his current oxygen saturation 96%, blood pressure 112/74, heart rate sinus tachycardic in the low 100's, he has been afebrile. Patient has been in a negative fluid balance with -1.8 Liters in the last 24 hours and received 3 doses of IV lasix which is now discontinued. Bowel sounds are hypoactive, abdominal binder in place with dressings intact to midline incision, no bowel movements or passing gas as reported by RN. Creatinine slightly increased today to 1.44, BUN 37. No white count, hemoglobin stable at 8.2, platelets decreased to 40's for the last 2 days, heparin was discontinued, continues with SCD's. Liver enzymes stable from yesterday. Continues on D10 infusion, TPN, maintaining blood pressures off pressor support. Continues on IV zosyn. Chest xray today shows unchanged pleural effusion. Patient remains in the ICU followed closely by pulmonary, cardiology, and surgical services in critical condition. Code status was changed to DNR by family. 11/04/2021 Patient evaluated today in the intensive care unit, he is more alert than yesterday. Per RN patient had a large bowel movement today and bowels are hypoactive today in all quadrants. BM was a maroon color per nurse. Abdominal binder in place. Continues with rivas catheter with over 3L of urine output in the last 24 hours, still with peripheral edema. IV lasix 60 mg x1 was given today. NGT remains in place with only 50 mLs of output overnight. Patient remains off sedation, remains off pressor support. Blood pressure today 115/69, heart rate 106, low grade fever this morning 99.2 axillary, and patient was extubated mid morning is on a 15 L HF cannula. Chest xray this morning shows stable bilateral consolidation and pleural effusion. Remains on D10 gtt at 20 mLs per hour, TPN/Lipids, and IV zosyn. Patient also received potassium suppl ementation today. Followed closely by multiple consultations including cardiology, pulmonary, and surgery and remains in guarded condition. Labs reviewed: sodium 135, potassium 3.2, chloride 120, CO2 20, BUN 45, creat 1.26, blood glucose in the 110's, AST 81, ALT and alk phos have normalized. 11/05/2021 Patient is seen and evaluated in follow-up continues to be in the ICU under close monitoring. Patient was recently extubated and continues on 5 L high flow nasal cannula and oxygen saturations have been 97-100%. Multiple medical consultations including pulmonary metallurgist helper and surgery following closely. Chest x-ray today shows removal of endotracheal tube along with NG tube and central venous catheter on the right remains in place with no evident pneumothorax and to correlate for pneumonia, congestive heart failure, possible effusions and associated atelectasis versus edema. Patient did receive a dose of IV Lasix yesterday. Neurology consulted and CT of the brain without contrast ordered to assess mentation which is currently pending. Patient is continued on D10 and water and maintaining blood sugars in the 120s and will continue current regimen. Hemoglobin is 7.7 today with no bleeding noted. Platelets on the lower side at 65 although improved from previous and will continue to monitor closely with repeat labs in the morning. Patient also continues on IV Zosyn and will continue at this time. 11/06/2021 Patient is seen in follow-up continues to be in the ICU with multiple medical consultations following. Patient was evaluated by neurology and EEG was ordered and pending. Patient underwent CT of the brain which showed no acute abnormality noted. Patient also had chest x-ray today which shows no significant interval change compared to yesterday with continued questionable pulmonary infiltration at the mid to lower lung zones and there is some congested pulmonary vasculature with bilateral pleural effusions. Patient had been receiving one-time doses of IV Lasix daily and will add scheduled 40 mg IV Lasix and recommend repeat labs and follow-up chest x-ray. Patient is tolerating 3 L high flow via nasal cannula and maintaining oxygen saturations above 97%. Patient continues with significant weakness and PT/OT therapy consulted to follow the patient daily. Patient noted to have increased output noted in the NG tube and general surgery following an plan is for CT abdomen with contrast this afternoon. Will await report. Continues to be nothing by mouth on TPN and will continue for now. 11/07/2021 Patient is seen and continues to be closely monitored in the ICU. Patient underwent CT abdomen and pelvis which shows some resolution of the previously seen gastric pneumatosis with mild wall thickening of the stomach with questionable minimal residual pneumatosis of the second and third part of the duodenum. There is noted 3 flow of the ingested oral contrast on the ileocecal junction with no evidence of contrast leak. There are slightly dilated small bowel loops measuring 3.3 cm with no definite transition point which may suggest an element of ileus. There is some diffuse bowel thickening of the diana nonspecific and fluid-filled colon with thickened wall that may suggest colitis. Also some moderate amount of free abdominal and pelvic fluid with peritoneal fat stranding and most probably related to postoperative changes although peritonitis cannot be excluded. There is a 2.8 cm gallbladder stone with no gallbladder wall thickening or gross signs of acute cholecystitis with no definite intrahepatic focal lesions identified. And there is some bilateral nasal pleural effusions and subsegmental pulmonary atelectasis demonstrating air bronchogram within. Patient is not currently on antibiotics and patient is afebrile. WBC is 8.4, hemoglobin is 7.9, BMP is noted and magnesium is 2.4, triglycerides found to be elevated at 256. Multiple medical consultations following and will continue to follow closely. All intake of fluids have been decreased to 70 mL per hour including TPN. Recommend follow-up chest x-ray in the morning. Nursing staff reports to a bowel movement yesterday although none today. 11/08/2021 Patient continues to be in the ICU being closely monitored. Patient to continue with NG tube as patient continues to have large amounts of output noted in the container. Patient did have a bowel movement yesterday along with today per nursing staff. Patient having some low-grade temps with T-max 101.5 and IV antibiotics in the form of Zosyn have been resumed. Patient continues on TPN and is currently nothing by mouth with NG tube continued. Patient currently receiving chest physiotherapy for continued secretions noted that patient is unable to expectorate. Would encourage incentive spirometer although patient is unable to perform. Duo nebs and updrafts also ordered. Recommend blood, sputum, and urine cultures which are currently pending. Recommend repeat labs. Chest x-ray is ordered. 11/11/2021 This is a patient who has had prolonged hospitalization secondary to ischemic bowel and sepsis and has undergone gastrectomy. Patient was recently transferred out of the ICU to the [facility] unit and had become more lethargic and unresponsive patient was found unresponsive and foaming at the mouth and a code was called. Case was discussed with ICU and patient being brought back to the ICU. Patient's CODE STATUS was addressed with family per nursing staff and brother is okay with intubating the patient. Patient's CODE STATUS is no code. Patient was placed on BiPAP although continued to progress and worsen and patient is currently being intubated by pulmonary metallurgist helper. Patient family also agreeable to pressor support and continuing current medications, per nursing just does not want CPR initiated. Chest x-ray this morning shows increased interstitial densities and increased small left pleural effusion now with more pronounced airspace disease in the retrocardiac region of the left base and correlate for pneumonia and developing pulmonary vascular congestion. Magnesium also low at 1.4 and being replaced. 11/12/2021 Patient is seen in follow-up continues to be closely monitored in the ICU continued under mechanical ventilation and is sedated. Multiple medical consultations including general surgery. Chest x-ray today shows bilateral infiltrates greater on the left with small left effusion correlate for interstitial pneumonitis versus congestion otherwise findings are stable. Patient is continued on IV antibiotics and awaiting for bronchial washings to finalize. Blood cultures have been negative. Patient continues to have low- grade intermittent temps and continues to be tachypneic. FiO2 is currently 40% with a PEEP of 5. No plans for extubation today. Per nursing staff there continues to be large amounts of output noted in the NG and appear maroon- colored in nature and again general surgery is following. Patient has not had any reported bowel movements per nursing staff since 11/08/2021. There are positive bowel sounds noted on exam and abdomen is soft. Patient underwent CT abdomen yesterday showing pleural effusions with extensive lower lobe pulmonary consolidation and atelectasis similar to old exam with abdominal ascites fluid slightly improved compared to last exam and there is evidence of mild small bowel ileus with no free air and cholelithiasis noted. There is subcutaneous emphysema which is mild around the abdomen and pelvis which is improved compared to last exam as well. 11/13/2021 Patient continues in the ICU in critical condition. Patient was brought back to surgery last night and is status post exploratory laparotomy, drainage of upper abdominal abscess, lysis of adhesions and small bowel resection. Patient continues with TPN and is NPO. Patient continues on mechanical vent with an FI02 of 40% and peep of 5. 2JP drains noted with bilious and serosanguineous fluid and WEIGHT CALCULATOR noted with dark maroon colored drainage. Per nursing staff NG output has decreased. No bowel movements reported. Patient continues on Levophed as well. IV antibiotics as patient continues to be febrile. 11/14/2021 Patient is seen today continues to be closely monitored in the ICU remains on mechanical vent with sedation. FiO2 is 40% with a PEEP of 5. Patient continues to be followed by pulmonary metallurgist helper along with general surgery. Per nursing staff copious amounts of drainage from the EBONY drain that is bilious most likely continued leak. NG tube continues to have output which appears more maroon and blood tinged and hemoglobin is down to be 6.5 and waiting to receive a unit of PRBC. Patient is afebrile today. Some of the bronchial washings showing Cortney albicans although preliminary and awaiting other cultures. Patient is also maintained on sodium bicarb drip along with fluconazole and Levophed is c urrently off. Patient continues on IV antibiotics in the form of Zosyn and will continue along with vancomycin. 11/15/2021 Patient is seen today in the ICU continues to be in critical condition being closely monitored. Patient remains on mechanical ventilation with an FiO2 of 40% and PEEP is 5. Patient continues on sodium bicarb drip along with sulconazole and Zosyn along with vancomycin and will continue. Patient continues to be sedated with propofol and has IV Dilaudid as needed. Patient continues with low-grade intermittent temps and preliminary body fluid cultures growing gram-negative bacilli and yeast species along with Cortney albicans. Awaiting finalized cultures. Patient off pressor support and maintaining adequate blood pressure. WBC mildly down at 20.3 and hemoglobin is 7.3 today. Per nursing staff there was a bowel movement noted that was bloody today. Sedation holidays being conducted to assess for possible weaning and extubation with neurology following as well. Chest x-ray today shows diffuse pleural parenchymal changes with bilateral consolidation and pleural effusions to correlate for pneumonia and CHF is not excluded. Overall prognosis is extremely guarded. 11/16/2021 Patient is currently in the MICU. Was extubated this morning. Patient is able to open his eyes and track but could not communicate. Bronchoalveolar lavage culture showed Cortney albicans. Chest x-ray today showed findings favors CHF exacerbation as there is mild cardiomegaly with mild central vascular congestion and suspected small bilateral pleural effusions with associated bibasilar atelectasis and likely acute infiltrates. Correlate clinically. Laboratory showed WBC 22.8 hemoglobin 7.1 sodium 137 potassium 4.4 chloride 115 bicarb is 18 BUN 34 and creatinine 1.37 and calcium 8.1 Patient is being continued antibiotics above ertapenem. Continue Lasix 40 mg every 12 and TPN. Pulmonary and general surgery is on board. 11/17/2021 Patient is currently resting in bed. Anxious and restless and was started on Precedex. Patient was successfully extubated on 11/16/2021. Currently on 6 L oxygen via nasal cannula. NG tube is in place. Patient is also on TPN. Patient is being continued on antibiotics . Also on IV Lasix 40 mg every 12. Chest x-ray showed findings f avor CHF exacerbation and fluid overload state as there is mild cardiomegaly with mild central venous congestion. Patient has been afebrile. No diarrhea. No sputum production. Pulmonary and general surgery is on board. 11/18/2021 Patient is seen and evaluated in follow up this morning and continues to be in the ICU and was reintubated again this morning. Chest xray shows CHF and pleural effusions as previously noted. No evidence of pneumothorax. Patient continues with an FI02 of 50% and peep is 5. Patient continues on sedation. Patient to continue with IV antibiotics and also antifungals. WBC is elevated. Per nursing staff, hemoglobin is 5.9 and bleeding from NG tube. Patient to receive 2 units of PRBC. Review of systems: Unable to obtain as patient is currently placed back on sedation and intubated Active Medications Albuterol/Ipratropium (Ipratropium-Albuterol 3 Ml Neb) 3 ml INHALATION RT-TID [facility] Last Admin: 11/18/21 11:56 Dose: 3 ml Documented by: Atropine Sulfate (Atropine Ophth Soln 1% 5ml Btl) 2 drops SUBLINGUAL Q4HR PRN PRN Reason: Excess Secretions Chlorhexidine Gluconate (Chlorhexidine Gluconate 15 Ml Cup) 15 ml MUCOUS MEM BID [facility] Last Admin: 11/18/21 08:24 Dose: 15 ml Documented by: Furosemide (Furosemide 10 Mg/Ml 4 Ml Vial) 40 mg IV Q12HR [facility] Last Admin: 11/18/21 08:24 Dose: 40 mg Documented by: Hydromorphone HCl (Hydromorphone 0.5 Mg/0.5 Ml Syringe) 0.5 mg IVP Q3HR PRN PRN Reason: Pain Last Admin: 11/18/21 14:13 Dose: 0.5 mg Documented by: Fluconazole/Sodium Chloride (400 mg/ IV Solution) 200 mls @ 100 mls/hr IVPB DAILY [facility]; Protocol Last Admin: 11/18/21 08:24 Dose: 100 mls/hr Documented by: Potassium Acetate 40 meq/Calcium Gluconate 1 gm/ Amino Acids/Dextrose 1,030 mls @ 80 mls/hr IV .BY DURATION [facility] Last Admin: 11/18/21 06:47 Dose: 80 mls/hr Documented by: Parenteral Vitamin Supplement 10 ml/ Zinc/Copper/Manganese/Selenium 1 ml/ Potassium Acetate 40 meq/ Calcium Gluconate 1 gm/ Amino Acids/Dextrose 1,041 mls @ 80 mls/hr IV .BY DURATION [facility] Last Admin: 11/16/21 23:22 Dose: 80 mls/hr Documented by: Ertapenem 1 gm/ Sodium (Chloride) 50 mls @ 100 mls/hr IVPB DAILY [facility]; Protocol Last Admin: 11/18/21 08:24 Dose: 100 mls/hr Documented by: Dexmedetomidine HCl 400 mcg/ (IV Solution) 100 mls @ 4.455 mls/hr IV .[id number] [facility]; Protocol Last Titration: 11/18/21 02:00 Dose: 0 mcg/kg/hr, 0 mls/hr Documented by: Norepinephrine Bitartrate 8 mg (/ Sodium Chloride) 258 mls @ 8.62 mls/hr IV .Q24H [facility]; Protocol Last Titration: 11/18/21 11:57 Dose: 0 mcg/kg/min, 0 mls/hr Documented by: Propofol 1,000 mg/ IV Solution 100 mls @ 2.673 mls/hr IV .Q24H [facility]; Protocol Last Admin: 11/18/21 15:34 Dose: 30 mcg/kg/min, 16.038 mls/hr Documented by: Insulin Aspart (Insulin Aspart (Novolog) 100 Unit/Ml Vial) 0 unit SQ Q6HR [facility]; Protocol Last Admin: 11/18/21 18:18 Dose: 1 unit Documented by: Lorazepam (Lorazepam 2 Mg/Ml Inj) 0.5 mg IV Q6HR [facility] Last Admin: 11/18/21 18:19 Dose: Not Given Documented by: Metoclopramide HCl (Metoclopramide 5 Mg/Ml 2 Ml Vial) 10 mg IVP Q6H [facility] Last Admin: 11/18/21 14:53 Dose: 10 mg Documented by: Miscellaneous Information (Potassium Replacement Protocol 1 Each Misc) 1 each MISCELLANE DAILY PRN; Protocol PRN Reason: Per Protocol Miscellaneous Information (Magnesium Replacement Protocol 1 Each Misc) 1 each MISCELLANE DAILY PRN; Protocol PRN Reason: Per Protocol Nystatin (Nystatin 100,000 Unit/Gm Powd 15 Gm) 1 applic TOPICAL DAILY PRN; Protocol PRN Reason: Rash Ondansetron HCl (Ondansetron 4 Mg/2 Ml Vial) 4 mg IVP Q8HR PRN PRN Reason: Nausea And Vomiting Last Admin: 11/16/21 12:00 Dose: 4 mg Documented by: Pantoprazole Sodium (Pantoprazole 40 Mg/10 Ml Vial) 40 mg IVP BID [facility] Last Admin: 11/18/21 08:24 Dose: 40 mg Documented by: Scopolamine (Scopolamine 1.5mg/72hr Patch) 1 patch TRANSDERM Q72H [facility] Last Admin: 11/16/21 12:37 Dose: 1 patch Documented by: PHYSICAL EXAMINATION: GENERAL: Patient is 51-year-old male who is autistic and currently sedated and intubated at this time, FiO2 is 50% with a PEEP of 5 HEENT: Pupils are round and equally reacting to light. EOMI. No scleral icterus. No conjunctival pallor. Normocephalic, atraumatic. No pharyngeal erythema. No thyromegaly. NG tube noted with dark maroon blood CARDIOVASCULAR: S1 and S2 muffled PULMONARY: Diminished breath sounds bilaterally with some scattered crackles and rhonchi noted ABDOMEN: Sluggish Bowel sounds noted on exam, abdominal binder and surgical dressing, 2 EBONY drains with one attached to suction on the wall with continued bilious drainage noted MUSCULOSKELETAL: No joint swelling or deformity. EXTREMITIES: No cyanosis, clubbing, generalized peripheral edema noted. NEUROLOGICAL: unable to assess as patient is intubated and sedated SKIN: No rashes. Assessment: -Sepsis, present on admission secondary to ischemia of the lateral portion of the stomach and mild ischemia of the proximal jejunum -Post operative partial gastrectomy for ischemic stomach and also had ischemic ileum. -Acute blood loss anemia, status post surgery continued bleeding noted and patient also did have bloody bowel movement, acute GI bleed -Acute hypoxic respiratory failure secondary to possible aspiration with acute left lower lobe pneumonia, requiring mechanical ventilator, and reintubation 11.18.2021 -Pneumoperitoneum, suspected gastric leak and section of proximal jejunum with ischemic changes status post exploratory laparotomy, drainage of upper abdominal abscess, lysis of adhesions and small bowel resection on 11/12/2021. -Septic shock status postoperatively -Anion gap metabolic acidosis secondary to lactic acidosis which improved, acidosis secondary to hyperchloremia -Acute renal failure secondary to acute blood loss from septic shock -History of CVA TIA -History diabetes mellitus type 2, uncontrolled -History of hypertension -History of autism -History of intellectual impairment -GI Prophylaxis Protonix -DVT Prophylaxis Subcu heparin -NO CODE Plan: Recommend to continue with ICU management and close monitoring. Patient is status post reintubation this morning for worsening respiratory status. Patient with bleeding noted out of the NG tube and nursing staff reported patient currently receiving 1 of 2 units of prbc noted. Patient continues on mechanical vent with an FiO2 of 50% and PEEP is 5. Patient continues with intermittent low-grade temps today and continued on IV antibiotics along with antifungals. WBC continues to trend up as well. Patient continues to be in critical condition with extremely guarded and overall poor prognosis. Brother at the bedside and questions and concerns were answered. The impression and plan of care has been dictated by Rozina Nam, nurse practitioner as directed. Dr. Christina MD I have performed a history and physical examination and MDM of this patient, discussed the same with the dictator, and agree with the dictator's assessment and plan as written ,documented as a scribe. Based on total visit time, I have performed more than 50% of the visit. Objective - Vital Signs Vital signs: Vital Signs Temp 100.1 F H 11/18/21 09:18 Pulse 93 11/18/21 09:18 Resp 31 H 11/18/21 09:18 BP 129/57 11/18/21 09:18 Pulse Ox 98 11/18/21 09:18 Intake & Output 11/17/21 11/18/21 11/18/21 18:59 06:59 18:59 Intake Total 1860 3717.135 967.655 Output Total 2195 1720 395 Balance -335 1997.135 572.655 Weight 90 kg Intake: IV 980 410 Dextrose 5% in Water 1, 550 000 ml @ 50 mls/hr IV . Q23H [facility] with Sodium Bicarb (1 Meq/ml) 150 ml Rx#:[id number] Ertapenem 1 gm In Sodium 50 50 Chloride 0.9% 50 ml @ 100 mls/hr IVPB DAILY [facility] Rx #:[id number] Fluconazole in NaCl,Iso- 200 200 Osm 400 mg In Saline 1 200ml.bag @ 100 mls/hr IVPB DAILY [facility] Rx#: [id number] Mvi, Adult No.4 with Vit 160 K 10 ml Trace (Conc-1Ml/ Dose) 1 ml Potassium Acetate 40 meq Calcium Gluconate 1 gm In Amino Acid 5%-D15w 1,000 ml @ 80 mls/hr IV .BY DURATION [facility] Rx#:[id number] Piperacillin-Tazobactam 3 100 .375 gm In Sodium Chloride 0.9% 100 ml @ 25 mls/hr IVPB Q8HR [facility] Rx# :[id number] TPN 80 Intake, IV Titration 3077.135 247.655 Amount Dexmedetomidine/0.9% NaCl 9.579 (Pmx) 400 mcg In Empty Bag 1 bag @ 0.2 MCG/KG/HR 4.455 mls/hr IV .[id number] [facility] Rx#:[id number] Norepinephrine 8 mg In 28.735 247.655 Sodium Chloride 0.9% 250 ml @ 0.05 MCG/KG/MIN 8.62 mls/hr IV .Q24H [facility] Rx#: [id number] Potassium Acetate 40 meq 1030 Calcium Gluconate 1 gm In Amino Acid 5%-D15w 1,000 ml @ 80 mls/hr IV .BY DURATION [facility] Rx#: [id number] Sodium Chloride 0.9% 2, 2000 000 ml @ 999 mls/hr IV . Q2H1M [facility] Rx#:[id number] propofoL 1,000 mg In 8.821 Empty Bag 1 bag @ 5 MCG/ KG/MIN 2.673 mls/hr IV . Q24H [facility] Rx#:[id number] TPN/PPN 880 640 Mvi, Adult No.4 with Vit 880 640 K 10 ml Trace (Conc-1Ml/ Dose) 1 ml Potassium Acetate 40 meq Calcium Gluconate 1 gm In Amino Acid 5%-D15w 1,000 ml @ 80 mls/hr IV .BY DURATION [facility] Rx#:[id number] Blood Product 310 Rc As-1 Unit 310 [id number] Output: Gastric Drainage 250 50 Drainage 0 45 45 Left Abdomen 0 30 30 Right Abdomen 0 15 15 Urine 1945 1625 350 Other: Voiding Method Indwelling Catheter Indwelling Catheter Indwelling Catheter # Bowel Movements 1 ABP, PAP, CO, CI - Last Documented Arterial Blood Pressure 134/62 - Labs CBC & Chem 7: 11/18/21 14:05 03/21/22 02:56 Labs: Abnormal Lab Results - Last 24 Hours (Table) 11/11/21 11/17/21 11/17/21 Range/Units 19:05 12:58 18:16 WBC (3.8-10.6) k/uL RBC (4.30-5.90) m/uL Hgb (13.0-17.5) gm/dL Hct (39.0-53.0) % MCHC (31.0-37.0) g/dL RDW (11.5-15.5) % Plt Count (150-450) k/uL Neutrophils # (Manual) (1.3-7.7) k/uL Myelocytes # (Manual) (0) k/uL ABG pH (7.35-7.45) ABG pCO2 (35-45) mmHg ABG pO2 (83-108) mmHg ABG HCO3 (21-25) mmol/L ABG Total CO2 (19-24) mmol/L ABG O2 Saturation (94-97) % Chloride (98-107) mmol/L BUN (9-20) mg/dL Creatinine (0.66-1.25) mg/dL Glucose (74-99) mg/dL POC Glucose (mg/dL) 129 H 144 H (75-99) mg/dL Calcium (8.4-10.2) mg/dL Crossmatch See Detail 11/17/21 11/18/21 11/18/21 Range/Units 23:10 02:56 02:56 WBC (3.8-10.6) k/uL RBC (4.30-5.90) m/uL Hgb (13.0-17.5) gm/dL Hct (39.0-53.0) % MCHC (31.0-37.0) g/dL RDW (11.5-15.5) % Plt Count (150-450) k/uL Neutrophils # (Manual) (1.3-7.7) k/uL Myelocytes # (Manual) (0) k/uL ABG pH 7.23 L (7.35-7.45) ABG pCO2 64 H (35-45) mmHg ABG pO2 114 H (83-108) mmHg ABG HCO3 27 H (21-25) mmol/L ABG Total CO2 29 H (19-24) mmol/L ABG O2 Saturation 97.3 H (94-97) % Chloride 111 H (98-107) mmol/L BUN 48 H (9-20) mg/dL Creatinine 1.51 H (0.66-1.25) mg/dL Glucose 125 H (74-99) mg/dL POC Glucose (mg/dL) 128 H (75-99) mg/dL Calcium 8.3 L (8.4-10.2) mg/dL Crossmatch 11/18/21 11/18/21 11/18/21 Range/Units 02:56 04:19 04:20 WBC 45.9 H (3.8-10.6) k/uL RBC 2.14 L (4.30-5.90) m/uL Hgb 5.7 L* (13.0-17.5) gm/dL Hct 19.0 L* (39.0-53.0) % MCHC 30.0 L (31.0-37.0) g/dL RDW 19.2 H (11.5-15.5) % Plt Count 600 H (150-450) k/uL Neutrophils # (Manual) 42.20 H (1.3-7.7) k/uL Myelocytes # (Manual) 0.46 H (0) k/uL ABG pH 7.33 L (7.35-7.45) ABG pCO2 47 H (35-45) mmHg ABG pO2 303 H (83-108) mmHg ABG HCO3 (21-25) mmol/L ABG Total CO2 26 H (19-24) mmol/L ABG O2 Saturation 99.4 H (94-97) % Chloride (98-107) mmol/L BUN (9-20) mg/dL Creatinine (0.66-1.25) mg/dL Glucose (74-99) mg/dL POC Glucose (mg/dL) (75-99) mg/dL Calcium (8.4-10.2) mg/dL Crossmatch See Detail 11/18/21 Range/Units 06:17 WBC (3.8-10.6) k/uL RBC (4.30-5.90) m/uL Hgb (13.0-17.5) gm/dL Hct (39.0-53.0) % MCHC (31.0-37.0) g/dL RDW (11.5-15.5) % Plt Count (150-450) k/uL Neutrophils # (Manual) (1.3-7.7) k/uL Myelocytes # (Manual) (0) k/uL ABG pH (7.35-7.45) ABG pCO2 (35-45) mmHg ABG pO2 (83-108) mmHg ABG HCO3 (21-25) mmol/L ABG Total CO2 (19-24) mmol/L ABG O2 Saturation (94-97) % Chloride (98-107) mmol/L BUN (9-20) mg/dL Creatinine (0.66-1.25) mg/dL Glucose (74-99) mg/dL POC Glucose (mg/dL) 131 H (75-99) mg/dL Calcium (8.4-10.2) mg/dL Crossmatch
[2021-11-18 23:55] LABS: Glucose,Whole Blood 146 mg/dL (75-99)
[2021-11-19] MEDS: INSULIN ASPART (NovoLOG) 100 UNIT/ML VIAL SQ SCH ×4 (00:13→18:27)
[2021-11-19] MEDS: LORazepam 2 MG/ML INJ IV SCH ×4 (00:13→17:27)
[2021-11-19] MEDS: METOCLOPRAMIDE 5 MG/ML 2 ML VIAL IVP SCH ×4 (03:44→21:12)
[2021-11-19 05:37] LABS: Anisocytosis Slight; HCT 21.3 % (39.0-53.0); Hypochromasia Marked; MCH 28.4 pg (25.0-35.0); MCHC 31.4 g/dL (31.0-37.0); MCV 90.4 fL (80.0-100.0); Mean Platelet Volume 9.3; Platelet Count 416 k/uL (150-450); Poikilocytosis Slight; RBC 2.36 m/uL (4.30-5.90); RDW 17.9 % (11.5-15.5); WBC 30.5 k/uL (3.8-10.6)
[2021-11-19 05:43] LABS: Glucose,Whole Blood 141 mg/dL (75-99)
[2021-11-19 06:01] LABS: ABG Base Excess -1.6 mmol/L; ABG HCO3 24 mmol/L (21-25); ABG Oxygen Saturation 98.8 % (94-97); ABG PCO2 44 mmHg (35-45); ABG PH 7.35 (7.35-7.45); ABG PO2 153 mmHg (83-108); ABG TCO2 25 mmol/L (19-24); Allen Test Performed? Yes
[2021-11-19 06:01] LABS: Calcium 8.7 mg/dL (8.4-10.2); Magnesium 1.9 mg/dL (1.6-2.3); Phosphorus 4.3 mg/dL (2.5-4.5); Potassium 3.9 mmol/L (3.5-5.1)
[2021-11-19 06:41] LABS: HGB 6.7 gm/dL (13.0-17.5)
[2021-11-19] MEDS: IPRATROPIUM-ALBUTEROL 3 ML NEB INHALATION SCH ×3 (07:43→19:31)
[2021-11-19] MEDS: PANTOPRAZOLE 40 MG/10 ML VIAL IVP SCH ×2 (08:10→21:12)
[2021-11-19] MEDS: CHLORHEXIDINE GLUCONATE 15 ML CUP MUCOUS MEM SCH (08:10)
[2021-11-19] MEDS: FUROSEMIDE 10 MG/ML 4 ML VIAL IV SCH ×2 (08:13→21:12)
[2021-11-19] MEDS: FLUCONAZOLE IN NACL,ISO-OSM 400 MG in SALINE 1 200ML.BAG IVPB SCH (08:15)
[2021-11-19] MEDS: SCOPOLAMINE 1 MG/72 HR PATCH TRANSDERM SCH (08:15)
[2021-11-19] MEDS: ERTAPENEM 1 GM in SODIUM CHLORIDE 0.9% 50 ML IVPB SCH (08:15)
[2021-11-19 09:06] LABS: Band Neutrophils % 2 %; Eosinophils # (M) 0.31 k/uL (0-0.7); Lymphocytes # (M) 1.22 k/uL (1.0-4.8); Monocytes # (M) 1.53 k/uL (0-1.0); Myelocytes # (M) 0.31 k/uL (0); Myelocytes % 1 %; Neutrophils % (M) 88 %; Nucleated Red Blood Cells 0 /100 WBC (0-0); Total Cells Counted 200
--- NOTE | 2021-11-19 09:11 | XR ---
EXAMINATION TYPE: XR chest 1V portable DATE OF EXAM: 11/19/2021 COMPARISON: 11/18/2021 HISTORY: Shortness of breath TECHNIQUE: Single frontal view of the chest is obtained. FINDINGS: PICC line appears in good position with the tip overlying the SVC. ET and NG tube stable. Right-sided central line with the tip overlying the right atrium. Persistent bilateral consolidation and small effusion greater on the left. Heart size stable. No sizable pneumothorax.. Hypertrophic and degenerative change of the spine IMPRESSION: 1. Persistent bilateral infiltrate and pleural effusion greater on the left correlate for pneumonia v ersus CHF.
[2021-11-19] MEDS: [UNRECOGNIZED DRUG - OTHER] IV SCH ×10 (10:59→13:44)
[2021-11-19] MEDS: POTASSIUM ACETATE IV SCH ×10 (10:59→13:44)
[2021-11-19] MEDS: CALCIUM GLUCONATE IV SCH ×10 (10:59→13:44)
[2021-11-19] MEDS: AMINO ACID 5% IV SCH ×10 (10:59→13:44)
--- NOTE | 2021-11-19 11:28 | P.PN ---
Subjective Progress Note Date: 11/19/21 The patient is seen today 11/19/2021 in follow-up in the intensive care unit. He remains intubated on mechanical ventilator and assist control mode. Rate of 26, temp on 400, FiO2 40% and a PEEP of 5. Morning blood gases revealed a PaO2 of 153, pCO2 44, pH 7.35. His family is at the bedside. He remains sedated on propofol at 25 mcg/kg/m. He is receiving TPN for nutritional support. He is anemic with a hemoglobin of 6.7. Coffee-ground emesis remains in the NG tube. He'll receive 1 unit of packed red blood cells today. EBONY drains remain in place. Retention sutures secured. Chest x-ray continues to show persistent bilateral infiltrate and pleural effusion. On the left. Tracheal and nasogastric tubes in good position. PICC line in place. Right-sided central line in place. No evidence of pneumothorax. He has received a total of 7 units of packed red blood cells today will be the eighth unit. Fluid cultures were positive for E. coli, Cortney. Ocular wash and were positive for Cortney. White count 30.5. Platelets 416. Sodium 140. Potassium 3.9. BUN 64. Creatinine 1.77. He is continued on ertapenem, fluconazole. He remains on IV diuretics. Currently in the 1.7 L positive balance. Objective - Vital Signs Vital signs: Vital Signs Temp 97.8 F 11/19/21 08:00 Pulse 97 11/19/21 09:00 Resp 26 H 11/19/21 09:00 BP 153/56 11/18/21 12:02 Pulse Ox 97 11/19/21 09:00 Intake & Output 11/18/21 11/19/21 11/19/21 18:59 06:59 18:59 Intake Total 2212.072 2137.312 250 Output Total 1140 1490 150 Balance 1072.072 647.312 100 Weight 90 kg 89.2 kg Intake: IV 1130 960 250 Ertapenem 1 gm In Sodium 50 50 Chloride 0.9% 50 ml @ 100 mls/hr IVPB DAILY [facility] Rx #:[id number] Fluconazole in NaCl,Iso- 200 200 Osm 400 mg In Saline 1 200ml.bag @ 100 mls/hr IVPB DAILY [facility] Rx#: [id number] Mvi, Adult No.4 with Vit 880 960 K 10 ml Trace (Conc-1Ml/ Dose) 1 ml Potassium Acetate 40 meq Calcium Gluconate 1 gm In Amino Acid 5%-D15w 1,000 ml @ 80 mls/hr IV .BY DURATION [facility] Rx#:[id number] Intake, IV Titration 484.731 7470.312 Amount Norepinephrine 8 mg In 311.849 Sodium Chloride 0.9% 250 ml @ 0.05 MCG/KG/MIN 8.62 mls/hr IV .Q24H [facility] Rx#: [id number] Potassium Acetate 40 meq 1030 Calcium Gluconate 1 gm In Amino Acid 5%-D15w 1,000 ml @ 80 mls/hr IV .BY DURATION [facility] Rx#: [id number] propofoL 1,000 mg In 150.223 147.312 Empty Bag 1 bag @ 5 MCG/ KG/MIN 2.673 mls/hr IV . Q24H [facility] Rx#:[id number] Blood Product 620 0 Rc As-1 Unit 310 [id number] Rc As-1 Unit 310 [id number] Rc As-1 Unit 0 [id number] Output: Gastric Drainage 155 Drainage 55 20 Left Abdomen 35 15 Right Abdomen 20 5 Urine 1085 1315 150 Other: Voiding Method Indwelling Catheter Indwelling Catheter # Bowel Movements 2 1 ABP, PAP, CO, CI - Last Documented Arterial Blood Pressure 139/51 - Exam GENERAL: 51-year-old male patient intubated, sedated on the mechanical ventilator Head exam was generally normal. There was no scleral icterus or corneal arcus. Mucous membranes were moist. HEENT: Pupils are round and equally reacting to light. Normocephalic, atraumatic. No pharyngeal erythema. No thyromegaly. Orogastric and orotracheal tube are both in place. CARDIOVASCULAR: S1 and S2 present. No murmurs, rubs, or gallops. PULMONARY: Diffuse rhonchi heard throughout the lung barkley bilaterally. The patient has diminished breath on the left lung base. ABDOMEN: Absent bowel sounds and the surgical wound site over the mid abdomen is dry clean and intact. No direct tenderness. No rebound tenderness. No guarding. No organomegaly. The surgical wound site over the abdominal wall is dry clean and intact. NG tube is in place. Bowel sounds remain absent. EBONY drains in place in both the right-sided and left-sided positions putting out minimal amount of output at this point in time. NG tube was also in place. Surgical wound site is dry clean and intact with retention sutures in place and remains unchanged compared to yesterday. MUSCULOSKELETAL: No joint swelling or deformity. EXTREMITIES: Extremities with diminished pulses in all 4 extremities. No cyanosis. No clubbing. NEUROLOGICAL intubated, sedated Examination of the skin revealed no evidence of significant rashes, suspicious appearing nevi or other concerning lesions. - Labs CBC & Chem 7: 11/19/21 05:30 11/19/21 05:30 Labs: Abnormal Lab Results - Last 24 Hours (Table) 11/18/21 11/18/21 11/18/21 Range/Units 04:20 12:05 14:05 WBC 32.7 H (3.8-10.6) k/uL RBC 2.52 L (4.30-5.90) m/uL Hgb 7.2 L D (13.0-17.5) gm/dL Hct 22.8 L (39.0-53.0) % RDW 17.7 H (11.5-15.5) % Neutrophils # (Manual) (1.3-7.7) k/uL Monocytes # (Manual) (0-1.0) k/uL Myelocytes # (Manual) (0) k/uL ABG pO2 (83-108) mmHg ABG Total CO2 (19-24) mmol/L ABG O2 Saturation (94-97) % Chloride (98-107) mmol/L BUN (9-20) mg/dL Creatinine (0.66-1.25) mg/dL Glucose (74-99) mg/dL POC Glucose (mg/dL) 161 H (75-99) mg/dL Crossmatch See Detail 11/18/21 11/18/21 11/19/21 Range/Units 18:15 23:54 05:30 WBC (3.8-10.6) k/uL RBC (4.30-5.90) m/uL Hgb (13.0-17.5) gm/dL Hct (39.0-53.0) % RDW (11.5-15.5) % Neutrophils # (Manual) (1.3-7.7) k/uL Monocytes # (Manual) (0-1.0) k/uL Myelocytes # (Manual) (0) k/uL ABG pO2 (83-108) mmHg ABG Total CO2 (19-24) mmol/L ABG O2 Saturation (94-97) % Chloride 114 H (98-107) mmol/L BUN 64 H (9-20) mg/dL Creatinine 1.77 H (0.66-1.25) mg/dL Glucose 129 H (74-99) mg/dL POC Glucose (mg/dL) 136 H 146 H (75-99) mg/dL Crossmatch 11/19/21 11/19/21 11/19/21 Range/Units 05:30 05:42 05:57 WBC 30.5 H (3.8-10.6) k/uL RBC 2.36 L (4.30-5.90) m/uL Hgb 6.7 L* (13.0-17.5) gm/dL Hct 21.3 L (39.0-53.0) % RDW 17.9 H (11.5-15.5) % Neutrophils # (Manual) 27.40 H (1.3-7.7) k/uL Monocytes # (Manual) 1.53 H (0-1.0) k/uL Myelocytes # (Manual) 0.31 H (0) k/uL ABG pO2 153 H (83-108) mmHg ABG Total CO2 25 H (19-24) mmol/L ABG O2 Saturation 98.8 H (94-97) % Chloride (98-107) mmol/L BUN (9-20) mg/dL Creatinine (0.66-1.25) mg/dL Glucose (74-99) mg/dL POC Glucose (mg/dL) 141 H (75-99) mg/dL Crossmatch Assessment and Plan Assessment: 1 partial gastrectomy as the patient was found to have ischemic anterior gastric wall with questionable small bowel ischemia. The patient underwent partial ga strectomy and the patient is postop day #20. Following that, CAT scan of the abdomen and chest was done and it showed pneumoperitoneum suspicious for gastric leak. Further investigation with another expiratory laparotomy that was done yesterday showed evidence of intra-abdominal abscesses that was drained and the patient was found to have ischemic small bowel, involving the jejunum that was resected surgically. Patient is postop day #5 following exploratory laparotomy, lysis of adhesions and partial small bowel resection. Patient is growing gram- negative bacillus/E. coli in the abdominal fluid in addition to Cortney. The patient was extubated x 2 and subsequently required reintubation again 11/18/2021. NG output is dropped compared to yesterday and there is no significant drainage from the EBONY drains. 2 acute hypoxic respiratory failure secondary to above, requiring reintubation again early a.m. on 11/18/2021 3 acute hypotension/septic shock, improved and the patient's blood pressure is normalized and the patient is currently off pressors, and the patient remains off pressors 3 acute lactic acidosis, secondary to above, improved, lactic acid level was 3.8 yesterday and this morning is down to 1.5 4 acute kidney injury, creatinine is up to 1.77. Vancomycin has been d iscontinued. 5 leukocytosis secondary to above, white cell count remains elevated, although it's improved compared to yesterday. 6 diabetes mellitus 7 hypertension 8 Developmental delay and autism 11 Acute blood loss anemia, expected outcome post gastric surgery and the patient's hemoglobin is stable for now 12 history of CVA events. No vent changes Plan Plan: The patient was seen and evaluated Chest x-ray, ABGs and labs reviewed Respiratory rate increased to 28, FiO2 decreased to 35% Plan again for daily interruption of sedation and weaning parameters Dr. Olvera did discuss the current situation with the family at the bedside Patient is not to be reintubated after this next extubation DO NOT RESUSCITATE/DO NOT INTUBATE CODE STATUS We'll continue with the current treatment plan We'll continue to follow and make further recommendations based on his clinical status I have personally seen and examined the patient, performed the documentation and the assessment and plan as written. Number of minutes spent on the visit: 15.
[2021-11-19 11:47] LABS: Glucose,Whole Blood 105 mg/dL (75-99)
--- NOTE | 2021-11-19 11:55 | P.PN ---
Subjective Progress Note Date: 11/19/21 CHIEF COMPLAINT: Abdominal pain HISTORY OF PRESENT ILLNESS: Patient remains in the ICU and intubated. Patient had blood noted in the NG tube. Hemoglobin is down to 6.7 and he is receiving a unit of blood today. Patient undergoing a sedation holiday and a trial of weaning from the vent. CODE STATUS has been adjusted to a DO NOT RESUSCITATE and DO NOT INTUBATE CODE STATUS. Family is at that side. Afebrile. WBC is 30.5 hemoglobin 6.7 platelets 416 creatinine 1.77. Output through both the EBONY and NG tube has decreased. NG tube with 5 mL bilious output and blood-tinged. Left EBONY drain serosanguineous with potential bile 20 mL output and right drain 15 mL serosanguineous output. Patient did have a small bowel movement. He is off of the Levophed. PHYSICAL EXAM: VITAL SIGNS: Reviewed. GENERAL: Intubated HEENT: Moist buccal mucosa. Head is atraumatic, normocephalic. ABDOMEN: Soft. Mildly distended. Incision site is open dressing has some small amount of serosanguineous drainage noted. Patient has retention sutures in place. ASSESSMENT: 1. Pneumoperitoneum, suspected gastric leak and section of proximal jejunum with ischemic changes status post exploratory laparotomy, drainage of upper abdominal abscess, lysis of adhesions and small bowel resection on 11/12/21 2. Ischemia of the lateral portion of the stomach and mild ischemia of the proximal jejunum status post exploratory laparotomy and partial gastrectomy on 10/30/21 3. Septic shock 4. Postoperative ileus 5. Thrombocytopenia resolved 6. Pneumonia 7. Anemia PLAN: -Continue ICU management -Continue supportive care -Patient scheduled for 1 unit of blood today -Continue NG tube for decompression -Continue to monitor EBONY drain output -Keep patient nothing by mouth -Continue antibiotics -Continue TPN for nutrition support -CODE STATUS DO NOT RESUSCITATE Physician Artificial Flower Maker note has been reviewed by physician. Signing provider agrees with the documented findings, assessment, and plan of care. I have personally seen and examined the patient, reviewed the PRECISION AGRONOMIST /PAs history, exam and MDM and agree with the assessment and plan as written. Based on total visit time, I have performed more than 50% of the visit. As above: Both drains are putting out significantly less fluid. Nasogastric tube is bilious today. He did have some melanotic stools. Agree with plans for extubation if tolerating weaning. Agree with family's plans to not reintubate even if needed. Will follow. Objective - Vital Signs Vital signs: Vital Signs Temp 98.3 F 11/19/21 10:31 Pulse 94 11/19/21 10:57 Resp 28 H 11/19/21 10:57 BP 154/56 11/19/21 10:57 Pulse Ox 99 11/19/21 10:57 Intake & Output 11/18/21 11/19/21 11/19/21 18:59 06:59 18:59 Intake Total 2212.072 2137.312 250 Output Total 1140 1490 150 Balance 1072.072 647.312 100 Weight 90 kg 89.2 kg Intake: IV 1130 960 250 Ertapenem 1 gm In Sodium 50 50 Chloride 0.9% 50 ml @ 100 mls/hr IVPB DAILY [facility] Rx #:[id number] Fluconazole in NaCl,Iso- 200 200 Osm 400 mg In Saline 1 200ml.bag @ 100 mls/hr IVPB DAILY [facility] Rx#: [id number] Mvi, Adult No.4 with Vit 880 960 K 10 ml Trace (Conc-1Ml/ Dose) 1 ml Potassium Acetate 40 meq Calcium Gluconate 1 gm In Amino Acid 5%-D15w 1,000 ml @ 80 mls/hr IV .BY DURATION [facility] Rx#:[id number] Intake, IV Titration 185.239 3198.312 Amount Norepinephrine 8 mg In 311.849 Sodium Chloride 0.9% 250 ml @ 0.05 MCG/KG/MIN 8.62 mls/hr IV .Q24H [facility] Rx#: [id number] Potassium Acetate 40 meq 1030 Calcium Gluconate 1 gm In Amino Acid 5%-D15w 1,000 ml @ 80 mls/hr IV .BY DURATION [facility] Rx#: [id number] propofoL 1,000 mg In 150.223 147.312 Empty Bag 1 bag @ 5 MCG/ KG/MIN 2.673 mls/hr IV . Q24H [facility] Rx#:[id number] Blood Product 620 0 Rc As-1 Unit 310 [id number] Rc As-1 Unit 310 [id number] Rc As-1 Unit 0 [id number] Output: Gastric Drainage 155 Drainage 55 20 Left Abdomen 35 15 Right Abdomen 20 5 Urine 1085 1315 150 Other: Voiding Method Indwelling Catheter Indwelling Catheter # Bowel Movements 2 1 ABP, PAP, CO, CI - Last Documented Arterial Blood Pressure 139/51 - Labs CBC & Chem 7: 11/19/21 16:00 11/19/21 05:30 Labs: Abnormal Lab Results - Last 24 Hours (Table) 11/18/21 11/18/21 11/18/21 Range/Units 04:20 12:05 14:05 WBC 32.7 H (3.8-10.6) k/uL RBC 2.52 L (4.30-5.90) m/uL Hgb 7.2 L D (13.0-17.5) gm/dL Hct 22.8 L (39.0-53.0) % RDW 17.7 H (11.5-15.5) % Neutrophils # (Manual) (1.3-7.7) k/uL Monocytes # (Manual) (0-1.0) k/uL Myelocytes # (Manual) (0) k/uL ABG pO2 (83-108) mmHg ABG Total CO2 (19-24) mmol/L ABG O2 Saturation (94-97) % Chloride (98-107) mmol/L BUN (9-20) mg/dL Creatinine (0.66-1.25) mg/dL Glucose (74-99) mg/dL POC Glucose (mg/dL) 161 H (75-99) mg/dL Crossmatch See Detail 11/18/21 11/18/21 11/19/21 Range/Units 18:15 23:54 05:30 WBC (3.8-10.6) k/uL RBC (4.30-5.90) m/uL Hgb (13.0-17.5) gm/dL Hct (39.0-53.0) % RDW (11.5-15.5) % Neutrophils # (Manual) (1.3-7.7) k/uL Monocytes # (Manual) (0-1.0) k/uL Myelocytes # (Manual) (0) k/uL ABG pO2 (83-108) mmHg ABG Total CO2 (19-24) mmol/L ABG O2 Saturation (94-97) % Chloride 114 H (98-107) mmol/L BUN 64 H (9-20) mg/dL Creatinine 1.77 H (0.66-1.25) mg/dL Glucose 129 H (74-99) mg/dL POC Glucose (mg/dL) 136 H 146 H (75-99) mg/dL Crossmatch 11/19/21 11/19/21 11/19/21 Range/Units 05:30 05:42 05:57 WBC 30.5 H (3.8-10.6) k/uL RBC 2.36 L (4.30-5.90) m/uL Hgb 6.7 L* (13.0-17.5) gm/dL Hct 21.3 L (39.0-53.0) % RDW 17.9 H (11.5-15.5) % Neutrophils # (Manual) 27.40 H (1.3-7.7) k/uL Monocytes # (Manual) 1.53 H (0-1.0) k/uL Myelocytes # (Manual) 0.31 H (0) k/uL ABG pO2 153 H (83-108) mmHg ABG Total CO2 25 H (19-24) mmol/L ABG O2 Saturation 98.8 H (94-97) % Chloride (98-107) mmol/L BUN (9-20) mg/dL Creatinine (0.66-1.25) mg/dL Glucose (74-99) mg/dL POC Glucose (mg/dL) 141 H (75-99) mg/dL Crossmatch 11/19/21 Range/Units 11:45 WBC (3.8-10.6) k/uL RBC (4.30-5.90) m/uL Hgb (13.0-17.5) gm/dL Hct (39.0-53.0) % RDW (11.5-15.5) % Neutrophils # (Manual) (1.3-7.7) k/uL Monocytes # (Manual) (0-1.0) k/uL Myelocytes # (Manual) (0) k/uL ABG pO2 (83-108) mmHg ABG Total CO2 (19-24) mmol/L ABG O2 Saturation (94-97) % Chloride (98-107) mmol/L BUN (9-20) mg/dL Creatinine (0.66-1.25) mg/dL Glucose (74-99) mg/dL POC Glucose (mg/dL) 105 H (75-99) mg/dL Crossmatch
[2021-11-19] MEDS: HYDROmorphone 0.5 MG/0.5 ML SYRINGE IVP PRN ×2 (13:36→21:13)
[2021-11-19] MEDS: DEXMEDETOMIDINE/0.9% NACL(PMX) 400 MCG in EMPTY BAG 1 BAG IV SCH (13:37)
--- NOTE | 2021-11-19 15:33 | P.PN ---
Subjective Progress Note Date: 11/19/21 Patient was admitted for nausea vomiting diarrhea believed to have gastroenteritis. Patient continued to have vomiting and started having abdominal tenderness because of which CT of the abdomen was obtained which showed pneumatosis coli along with some gas in the venous system concern for ischemic bowel. Patient was started on Zosyn. Patient subsequently decompensated patient became hypotensive with BP of 60/40 transferred to ICU patient was given 3 L of boluses of IV fluid NG tube was placed which showed bloody output . Patient in septic shock and receiving norepinephrine at this time. Recent echo showed normal ejection fraction. Patient had CTA of the chest which was negative for pulmonary embolism patient creatinine has worsened and went up to 2.80 today from 1.14 yesterday and this is secondary to acute tubular necrosis from sepsis and septic shock. Patient does have lactic acidosi s, patient does have lactic acidosis with lactic acidosis 7.5. Patient will be given 1 L of IV fluids continue pressor support. he is intubated and sedated. 10/31/2021 Patient is started having urine output. Patient underwent a arthrotomy yesterday and found to have ischemia of the lateral portion of the stomach and ischemia of the proximal jejunum patient underwent partial gastrectomy. Patient is presently on that to pressors maximized on norepinephrine, patient is also on vasopressin receiving albumin, IV fluids started having minimal urine output patient was anuric last night. Patient's chloride is highly elevated leading to metabolic acidosis patient also has an anion gap metabolic acidosis from lactic acidosis which appears to be improving at this time patient's overall clinical condition is guarded and the prognosis is poor. Patient Y blood cell count went down in fact patient is neutropenic now. Patient is presently not receiving any nutrition at this time. 11/01/2021 Patient is seen in follow-up continues to be closely monitored in the ICU in critical condition. Multiple medical consultations including pulmonary nanosystems engineer, cardiology, surgery following closely. Patient is status post partial gastrectomy postop day #2. Patient continues on IV Zosyn along with normal saline at 75 ML per hour. Per nursing staff patient continues on Levophed along with vasopressin for pressor support. Patient not tolerating weaning very well to assess mentation. Patient continues on sedation of propofol and will continue. Chest x-ray today shows basilar atelectasis, may be associated effusion and to correlate to exclude pneumonia. Per nursing staff there has been minimal NG tube output and of note on the x-ray the distal tip of the NG tube is obscured although unable to fully see as there is overlying artifacts with the telemetry monitoring and the patient is rotated. Patient is also having hypoglycemic events and was started on dextrose. Surgery plans for TPN for nutritional support. Family at the bedside today and their questions and concerns were answered. 11/02/2021 Patient evaluated today in the ICU he is postoperative day #3 for partial gastrectomy, currently intubated with an FiO2 of 30% with a PEEP of 5. Current oxygen saturations are 99 to 100%. Blood pressures 119/61, respirations 28, heart rate 107, afebrile. Chest x-ray today shows a stable chest with pleural effusion unchanged, perihilar and basilar infiltrates persist. Per nurse about 500 mLs output from NG tube in the last 12 hours. Continues on IV lasix, TPN, IV zosyn. Pressor support and propfol are currently on hold. Blood pressures are maintaining 120s systolic, heart rate 113 sinus tachycardia, afebrile, respirations 27. Patient with indwelling catheter, urine is dark susana, per nurse no BM since surgery, bowels are absent left lower quadrant, hypoactive to the right quadrant. Labs today show white count 6, hemoglobin 8.6, sodium 142, potassium 3.9, chloride 124, CO2 15, BUN 41, creatinine 1.39, blood glucose in the 80s, calcium 7.2, total bili 1.7, AST 145, ALT 59. Patient is being followed closely by pulmonary, cardiology, and surgical services. 11/03/2021 Patient evaluated today and closely monitored in ICU remains in critical condition. Patient's been off sedation for 24 hours. He is currently spontaneous eye opening, eyes are tracking however he does not move his face, not following motor commands unable to wiggle fingers. Once patient is more a lert may tolerate extubation. He continues to be vented, Fi02 30% with a PEEP of 5 his current oxygen saturation 96%, blood pressure 112/74, heart rate sinus tachycardic in the low 100's, he has been afebrile. Patient has been in a negative fluid balance with -1.8 Liters in the last 24 hours and received 3 doses of IV lasix which is now discontinued. Bowel sounds are hypoactive, abdominal binder in place with dressings intact to midline incision, no bowel movements or passing gas as reported by RN. Creatinine slightly increased today to 1.44, BUN 37. No white count, hemoglobin stable at 8.2, platelets decreased to 40's for the last 2 days, heparin was discontinued, continues with SCD's. Liver enzymes stable from yesterday. Continues on D10 infusion, TPN, maintaining blood pressures off pressor support. Continues on IV zosyn. Chest xray today shows unchanged pleural effusion. Patient remains in the ICU followed closely by pulmonary, cardiology, and surgical services in critical condition. Code status was changed to DNR by family. 11/04/2021 Patient evaluated today in the intensive care unit, he is more alert than yesterday. Per RN patient had a large bowel movement today and bowels are hypoactive today in all quadrants. BM was a maroon color per nurse. Abdominal binder in place. Continues with rivas catheter with over 3L of urine output in the last 24 hours, still with peripheral edema. IV lasix 60 mg x1 was given today. NGT remains in place with only 50 mLs of output overnight. Patient remains off sedation, remains off pressor support. Blood pressure today 115/69, heart rate 106, low grade fever this morning 99.2 axillary, and patient was extubated mid morning is on a 15 L HF cannula. Chest xray this morning shows stable bilateral consolidation and pleural effusion. Remains on D10 gtt at 20 mLs per hour, TPN/Lipids, and IV zosyn. Patient also received potassium suppl ementation today. Followed closely by multiple consultations including cardiology, pulmonary, and surgery and remains in guarded condition. Labs reviewed: sodium 135, potassium 3.2, chloride 120, CO2 20, BUN 45, creat 1.26, blood glucose in the 110's, AST 81, ALT and alk phos have normalized. 11/05/2021 Patient is seen and evaluated in follow-up continues to be in the ICU under close monitoring. Patient was recently extubated and continues on 5 L high flow nasal cannula and oxygen saturations have been 97-100%. Multiple medical consultations including pulmonary nanosystems engineer and surgery following closely. Chest x-ray today shows removal of endotracheal tube along with NG tube and central venous catheter on the right remains in place with no evident pneumothorax and to correlate for pneumonia, congestive heart failure, possible effusions and associated atelectasis versus edema. Patient did receive a dose of IV Lasix yesterday. Neurology consulted and CT of the brain without contrast ordered to assess mentation which is currently pending. Patient is continued on D10 and water and maintaining blood sugars in the 120s and will continue current regimen. Hemoglobin is 7.7 today with no bleeding noted. Platelets on the lower side at 65 although improved from previous and will continue to monitor closely with repeat labs in the morning. Patient also continues on IV Zosyn and will continue at this time. 11/06/2021 Patient is seen in follow-up continues to be in the ICU with multiple medical consultations following. Patient was evaluated by neurology and EEG was ordered and pending. Patient underwent CT of the brain which showed no acute abnormality noted. Patient also had chest x-ray today which shows no significant interval change compared to yesterday with continued questionable pulmonary infiltration at the mid to lower lung zones and there is some congested pulmonary vasculature with bilateral pleural effusions. Patient had been receiving one-time doses of IV Lasix daily and will add scheduled 40 mg IV Lasix and recommend repeat labs and follow-up chest x-ray. Patient is tolerating 3 L high flow via nasal cannula and maintaining oxygen saturations above 97%. Patient continues with significant weakness and PT/OT therapy consulted to follow the patient daily. Patient noted to have increased output noted in the NG tube and general surgery following an plan is for CT abdomen with contrast this afternoon. Will await report. Continues to be nothing by mouth on TPN and will continue for now. 11/07/2021 Patient is seen and continues to be closely monitored in the ICU. Patient underwent CT abdomen and pelvis which shows some resolution of the previously seen gastric pneumatosis with mild wall thickening of the stomach with questionable minimal residual pneumatosis of the second and third part of the duodenum. There is noted 3 flow of the ingested oral contrast on the ileocecal junction with no evidence of contrast leak. There are slightly dilated small bowel loops measuring 3.3 cm with no definite transition point which may suggest an element of ileus. There is some diffuse bowel thickening of the diana nonspecific and fluid-filled colon with thickened wall that may suggest colitis. Also some moderate amount of free abdominal and pelvic fluid with peritoneal fat stranding and most probably related to postoperative changes although peritonitis cannot be excluded. There is a 2.8 cm gallbladder stone with no gallbladder wall thickening or gross signs of acute cholecystitis with no definite intrahepatic focal lesions identified. And there is some bilateral nasal pleural effusions and subsegmental pulmonary atelectasis demonstrating air bronchogram within. Patient is not currently on antibiotics and patient is afebrile. WBC is 8.4, hemoglobin is 7.9, BMP is noted and magnesium is 2.4, triglycerides found to be elevated at 256. Multiple medical consultations following and will continue to follow closely. All intake of fluids have been decreased to 70 mL per hour including TPN. Recommend follow-up chest x-ray in the morning. Nursing staff reports to a bowel movement yesterday although none today. 11/08/2021 Patient continues to be in the ICU being closely monitored. Patient to continue with NG tube as patient continues to have large amounts of output noted in the container. Patient did have a bowel movement yesterday along with today per nursing staff. Patient having some low-grade temps with T-max 101.5 and IV antibiotics in the form of Zosyn have been resumed. Patient continues on TPN and is currently nothing by mouth with NG tube continued. Patient currently receiving chest physiotherapy for continued secretions noted that patient is unable to expectorate. Would encourage incentive spirometer although patient is unable to perform. Duo nebs and updrafts also ordered. Recommend blood, sputum, and urine cultures which are currently pending. Recommend repeat labs. Chest x-ray is ordered. 11/11/2021 This is a patient who has had prolonged hospitalization secondary to ischemic bowel and sepsis and has undergone gastrectomy. Patient was recently transferred out of the ICU to the [facility] unit and had become more lethargic and unresponsive patient was found unresponsive and foaming at the mouth and a code was called. Case was discussed with ICU and patient being brought back to the ICU. Patient's CODE STATUS was addressed with family per nursing staff and brother is okay with intubating the patient. Patient's CODE STATUS is no code. Patient was placed on BiPAP although continued to progress and worsen and patient is currently being intubated by pulmonary nanosystems engineer. Patient family also agreeable to pressor support and continuing current medications, per nursing just does not want CPR initiated. Chest x-ray this morning shows increased interstitial densities and increased small left pleural effusion now with more pronounced airspace disease in the retrocardiac region of the left base and correlate for pneumonia and developing pulmonary vascular congestion. Magnesium also low at 1.4 and being replaced. 11/12/2021 Patient is seen in follow-up continues to be closely monitored in the ICU continued under mechanical ventilation and is sedated. Multiple medical consultations including general surgery. Chest x-ray today shows bilateral infiltrates greater on the left with small left effusion correlate for interstitial pneumonitis versus congestion otherwise findings are stable. Patient is continued on IV antibiotics and awaiting for bronchial washings to finalize. Blood cultures have been negative. Patient continues to have low- grade intermittent temps and continues to be tachypneic. FiO2 is currently 40% with a PEEP of 5. No plans for extubation today. Per nursing staff there continues to be large amounts of output noted in the NG and appear maroon- colored in nature and again general surgery is following. Patient has not had any reported bowel movements per nursing staff since 11/08/2021. There are positive bowel sounds noted on exam and abdomen is soft. Patient underwent CT abdomen yesterday showing pleural effusions with extensive lower lobe pulmonary consolidation and atelectasis similar to old exam with abdominal ascites fluid slightly improved compared to last exam and there is evidence of mild small bowel ileus with no free air and cholelithiasis noted. There is subcutaneous emphysema which is mild around the abdomen and pelvis which is improved compared to last exam as well. 11/13/2021 Patient continues in the ICU in critical condition. Patient was brought back to surgery last night and is status post exploratory laparotomy, drainage of upper abdominal abscess, lysis of adhesions and small bowel resection. Patient continues with TPN and is NPO. Patient continues on mechanical vent with an FI02 of 40% and peep of 5. 2JP drains noted with bilious and serosanguineous fluid and DIRECTOR OF MARKET ANALYSIS noted with dark maroon colored drainage. Per nursing staff NG output has decreased. No bowel movements reported. Patient continues on Levophed as well. IV antibiotics as patient continues to be febrile. 11/14/2021 Patient is seen today continues to be closely monitored in the ICU remains on mechanical vent with sedation. FiO2 is 40% with a PEEP of 5. Patient continues to be followed by pulmonary nanosystems engineer along with general surgery. Per nursing staff copious amounts of drainage from the EBONY drain that is bilious most likely continued leak. NG tube continues to have output which appears more maroon and blood tinged and hemoglobin is down to be 6.5 and waiting to receive a unit of PRBC. Patient is afebrile today. Some of the bronchial washings showing Cortney albicans although preliminary and awaiting other cultures. Patient is also maintained on sodium bicarb drip along with fluconazole and Levophed is c urrently off. Patient continues on IV antibiotics in the form of Zosyn and will continue along with vancomycin. 11/15/2021 Patient is seen today in the ICU continues to be in critical condition being closely monitored. Patient remains on mechanical ventilation with an FiO2 of 40% and PEEP is 5. Patient continues on sodium bicarb drip along with sulconazole and Zosyn along with vancomycin and will continue. Patient continues to be sedated with propofol and has IV Dilaudid as needed. Patient continues with low-grade intermittent temps and preliminary body fluid cultures growing gram-negative bacilli and yeast species along with Cortney albicans. Awaiting finalized cultures. Patient off pressor support and maintaining adequate blood pressure. WBC mildly down at 20.3 and hemoglobin is 7.3 today. Per nursing staff there was a bowel movement noted that was bloody today. Sedation holidays being conducted to assess for possible weaning and extubation with neurology following as well. Chest x-ray today shows diffuse pleural parenchymal changes with bilateral consolidation and pleural effusions to correlate for pneumonia and CHF is not excluded. Overall prognosis is extremely guarded. 11/16/2021 Patient is currently in the MICU. Was extubated this morning. Patient is able to open his eyes and track but could not communicate. Bronchoalveolar lavage culture showed Cortney albicans. Chest x-ray today showed findings favors CHF exacerbation as there is mild cardiomegaly with mild central vascular congestion and suspected small bilateral pleural effusions with associated bibasilar atelectasis and likely acute infiltrates. Correlate clinically. Laboratory showed WBC 22.8 hemoglobin 7.1 sodium 137 potassium 4.4 chloride 115 bicarb is 18 BUN 34 and creatinine 1.37 and calcium 8.1 Patient is being continued antibiotics above ertapenem. Continue Lasix 40 mg every 12 and TPN. Pulmonary and general surgery is on board. 11/17/2021 Patient is currently resting in bed. Anxious and restless and was started on Precedex. Patient was successfully extubated on 11/16/2021. Currently on 6 L oxygen via nasal cannula. NG tube is in place. Patient is also on TPN. Patient is being continued on antibiotics . Also on IV Lasix 40 mg every 12. Chest x-ray showed findings f avor CHF exacerbation and fluid overload state as there is mild cardiomegaly with mild central venous congestion. Patient has been afebrile. No diarrhea. No sputum production. Pulmonary and general surgery is on board. 11/18/2021 Patient is seen and evaluated in follow up this morning and continues to be in the ICU and was reintubated again this morning. Chest xray shows CHF and pleural effusions as previously noted. No evidence of pneumothorax. Patient continues with an FI02 of 50% and peep is 5. Patient continues on sedation. Patient to continue with IV antibiotics and also antifungals. WBC is elevated. Per nursing staff, hemoglobin is 5.9 and bleeding from NG tube. Patient to receive 2 units of PRBC. 11/19/2021 Patient is seen in follow-up this morning closely monitored with multiple medical consultations following. Patient continues on mechanical vent with an FiO2 of 35% and PEEP is 5. Patient's hemoglobin is 6.7 today and continues with bleeding noted in the NG tube. Patient is to receive another unit of PRBCs and will continue to monitor hemoglobin and bleeding closely. Weaning parameters are continuously being assessed and possible extubation in the next day or so per pulmonary. Brother at the bedside and is agreeable with no CODE STATUS and no further intubations as patient has been also intubated multiple times this admission and continues to deteriorate. Chest x-ray today shows persistent bilateral infiltrates with pleural effusions greater on the left and correlate for pneumonia versus CHF. Kidney functions slightly worsening as well and trending up. WBC continues to be elevated and patient is maintained on IV antibiotics. Review of systems: Unable to obtain as patient is currently placed back on sedation and intubated Active Medications Albuterol/Ipratropium (Ipratropium-Albuterol 3 Ml Neb) 3 ml INHALATION RT-TID [facility] Last Admin: 11/19/21 07:43 Dose: 3 ml Documented by: Atropine Sulfate (Atropine Ophth Soln 1% 5ml Btl) 2 drops SUBLINGUAL Q4HR PRN PRN Reason: Excess Secretions Chlorhexidine Gluconate (Chlorhexidine Gluconate 15 Ml Cup) 15 ml MUCOUS MEM BID [facility] Last Admin: 11/19/21 08:10 Dose: 15 ml Documented by: Furosemide (Furosemide 10 Mg/Ml 4 Ml Vial) 40 mg IV Q12HR [facility]ERT[facility] Last Admin: 11/19/21 08:13 Dose: 40 mg Documented by: Hydromorphone HCl (Hydromorphone 0.5 Mg/0.5 Ml Syringe) 0.5 mg IVP Q3HR PRN PRN Reason: Pain Last Admin: 11/18/21 14:13 Dose: 0.5 mg Documented by: Fluconazole/Sodium Chloride (400 mg/ IV Solution) 200 mls @ 100 mls/hr IVPB DAILY ROBERTO; Protocol Last Admin: 11/19/21 08:15 Dose: 100 mls/hr Documented by: Potassium Acetate 40 meq/Calcium Gluconate 1 gm/ Amino Acids/Dextrose 1,030 mls @ 80 mls/hr IV .BY DURATION [facility]ERTO Last Admin: 11/18/21 22:31 Dose: 80 mls/hr Documented by: Parenteral Vitamin Supplement 10 ml/ Zinc/Copper/Manganese/Selenium 1 ml/ Potassium Acetate 40 meq/ Calcium Gluconate 1 gm/ Amino Acids/Dextrose 1,041 mls @ 80 mls/hr IV .BY DURATION [facility]ERTO Last Admin: 11/16/21 23:22 Dose: 80 mls/hr Documented by: Ertapenem 1 gm/ Sodium (Chloride) 50 mls @ 100 mls/hr IVPB DAILY ROBERTO; Protocol Last Admin: 11/19/21 08:15 Dose: 100 mls/hr Documented by: Dexmedetomidine HCl 400 mcg/ (IV Solution) 100 mls @ 4.455 mls/hr IV .[id number] S ; Protocol Last Admin: 11/18/21 23:09 Dose: Not Given Documented by: Norepinephrine Bitartrate 8 mg (/ Sodium Chloride) 258 mls @ 8.62 mls/hr IV .Q24H ROBERTO; Protocol Last Titration: 11/18/21 11:57 Dose: 0 mcg/kg/min, 0 mls/hr Documented by: Propofol 1,000 mg/ IV Solution 100 mls @ 2.673 mls/hr IV .Q24H ROBERTO; Protocol Last Titration: 11/19/21 01:25 Dose: 25 mcg/kg/min, 13.365 mls/hr Documented by: Insulin Aspart (Insulin Aspart (Novolog) 100 Unit/Ml Vial) 0 unit SQ Q6HR ROBERTO; Protocol Last Admin: 11/19/21 06:34 Dose: 1 unit Documented by: Lorazepam (Lorazepam 2 Mg/Ml Inj) 0.5 mg IV Q6HR [facility] Last Admin: 11/19/21 06:29 Dose: Not Given Documented by: Metoclopramide HCl (Metoclopramide 5 Mg/Ml 2 Ml Vial) 10 mg IVP Q6H [facility] Last Admin: 11/19/21 03:44 Dose: 10 mg Documented by: Miscellaneous Information (Potassium Replacement Protocol 1 Each Misc) 1 each MISCELLANE DAILY PRN; Protocol PRN Reason: Per Protocol Miscellaneous Information (Magnesium Replacement Protocol 1 Each Misc) 1 each MISCELLANE DAILY PRN; Protocol PRN Reason: Per Protocol Nystatin (Nystatin 100,000 Unit/Gm Powd 15 Gm) 1 applic TOPICAL DAILY PRN; Protocol PRN Reason: Rash Ondansetron HCl (Ondansetron 4 Mg/2 Ml Vial) 4 mg IVP Q8HR PRN PRN Reason: Nausea And Vomiting Last Admin: 11/16/21 12:00 Dose: 4 mg Documented by: Pantoprazole Sodium (Pantoprazole 40 Mg/10 Ml Vial) 40 mg IVP BID [facility] Last Admin: 11/19/21 08:10 Dose: 40 mg Documented by: Scopolamine (Scopolamine 1.5mg/72hr Patch) 1 patch TRANSDERM Q72H [facility] Last Admin: 11/19/21 08:15 Dose: 1 patch Documented by: PHYSICAL EXAMINATION: GENERAL: Patient is 51-year-old male who is autistic and currently off sedation and intubated at this time, FiO2 is 35% with a PEEP of 5, sedation holidays and patient is opening eyes although not following commands HEENT: Pupils are round and equally reacting to light. EOMI. No scleral icterus. No conjunctival pallor. Normocephalic, atraumatic. No pharyngeal erythema. No thyromegaly. NG tube noted with dark maroon blood CARDIOVASCULAR: S1 and S2 muffled PULMONARY: Diminished breath sounds bilaterally with some scattered crackles and rhonchi noted ABDOMEN: Sluggish Bowel sounds noted on exam, abdominal binder and surgical dressing, 2 EBONY drains MUSCULOSKELETAL: No joint swelling or deformity. EXTREMITIES: No cyanosis, clubbing, generalized peripheral edema noted. NEUROLOGICAL: unable to assess as patient is intubated and sedated SKIN: No rashes. Assessment: -Sepsis, present on admission secondary to ischemia of the lateral portion of the stomach and mild ischemia of the proximal jejunum -Post operative partial gastrectomy for ischemic stomach and also had ischemic ileum. -Acute blood loss anemia, status post surgery continued bleeding noted and pat ient also did have bloody bowel movement, acute GI bleed -Acute hypoxic respiratory failure secondary to possible aspiration with acute left lower lobe pneumonia, requiring mechanical ventilator, and reintubation 11.18.2021 -Pneumoperitoneum, suspected gastric leak and section of proximal jejunum with ischemic changes status post exploratory laparotomy, drainage of upper abdominal abscess, lysis of adhesions and small bowel resection on 11/12/2021. -Septic shock status postoperatively -Anion gap metabolic acidosis secondary to lactic acidosis which improved, acidosis secondary to hyperchloremia -Acute renal failure secondary to acute blood loss from septic shock -History of CVA TIA -History diabetes mellitus type 2, uncontrolled -History of hypertension -History of autism -History of intellectual impairment -GI Prophylaxis Protonix -DVT Prophylaxis Subcu heparin -NO CODE Plan: Recommend to continue with ICU management and close monitoring. Patient is currently undergoing sedation holidays for possible extubation. Patient with bleeding noted out of the NG tube and nursing staff reported patient currently receiving another unit of prbc her hemoglobin of 6.7. Patient continues on mechanical vent with an FiO2 of 35% and PEEP is 5. Patient continues with intermittent low-grade temps today and continued on IV antibiotics along with antifungals. WBC continues to trend up as well. Patient continues to be in critical condition with extremely guarded and overall poor prognosis. Brother at the bedside and questions and concerns were answered. DIRECTOR OF MARKET ANALYSIS discussion was had with the brother at the bedside about CODE STATUS and overall poor prognosis and patient is not to be reintubated again. Recommend close monitoring of hemoglobin and repeat labs his kidney functions are worsening as well. The impression and plan of care has been dictated by Rozina Nam, nurse practitioner as directed. Dr. Christina MD I have performed a history and physical examination and MDM of this patient, discussed the same with the dictator, and agree with the dictator's assessment and plan as written ,documented as a scribe. Based on total visit time, I have performed more than 50% of the visit. Objective - Vital Signs Vital signs: Vital Signs Temp 97.8 F 11/19/21 08:00 Pulse 97 11/19/21 09:00 Resp 26 H 11/19/21 09:00 BP 128/54 11/18/21 12:02 Pulse Ox 97 11/19/21 09:00 Intake & Output 11/18/21 11/19/21 11/19/21 18:59 06:59 18:59 Intake Total 2212.072 2137.312 Output Total 1140 1490 Balance 1072.072 647.312 Weight 90 kg 89.2 kg Intake: IV 1130 960 Ertapenem 1 gm In Sodium 50 Chloride 0.9% 50 ml @ 100 mls/hr IVPB DAILY [facility] Rx #:[id number] Fluconazole in NaCl,Iso- 200 Osm 400 mg In Saline 1 200ml.bag @ 100 mls/hr IVPB DAILY [facility] Rx#: [id number] Mvi, Adult No.4 with Vit 880 960 K 10 ml Trace (Conc-1Ml/ Dose) 1 ml Potassium Acetate 40 meq Calcium Gluconate 1 gm In Amino Acid 5%-D15w 1,000 ml @ 80 mls/hr IV .BY DURATION [facility] Rx#:[id number] Intake, IV Titration 002.754 1178.312 Amount Norepinephrine 8 mg In 311.849 Sodium Chloride 0.9% 250 ml @ 0.05 MCG/KG/MIN 8.62 mls/hr IV .Q24H [facility] Rx#: [id number] Potassium Acetate 40 meq 1030 Calcium Gluconate 1 gm In Amino Acid 5%-D15w 1,000 ml @ 80 mls/hr IV .BY DURATION [facility] Rx#: [id number] propofoL 1,000 mg In 150.223 147.312 Empty Bag 1 bag @ 5 MCG/ KG/MIN 2.673 mls/hr IV . Q24H [facility] Rx#:[id number] Blood Product 620 Rc As-1 Unit 310 [id number] Rc As-1 Unit 310 [id number] Output: Gastric Drainage 155 Drainage 55 20 Left Abdomen 35 15 Right Abdomen 20 5 Urine 1085 1315 Other: Voiding Method Indwelling Catheter Indwelling Catheter # Bowel Movements 2 1 ABP, PAP, CO, CI - Last Documented Arterial Blood Pressure 139/51 - Labs CBC & Chem 7: 11/19/21 05:30 11/19/21 05:30 Labs: Abnormal Lab Results - Last 24 Hours (Table) 03/11/18/21 11/18/21 Range/Units 04:20 12:05 14:05 WBC 32.7 H (3.8-10.6) k/uL RBC 2.52 L (4.30-5.90) m/uL Hgb 7.2 L D (13.0-17.5) gm/dL Hct 22.8 L (39.0-53.0) % RDW 17.7 H (11.5-15.5) % Neutrophils # (Manual) (1.3-7.7) k/uL Monocytes # (Manual) (0-1.0) k/uL Myelocytes # (Manual) (0) k/uL ABG pO2 (83-108) mmHg ABG Total CO2 (19-24) mmol/L ABG O2 Saturation (94-97) % Chloride (98-107) mmol/L BUN (9-20) mg/dL Creatinine (0.66-1.25) mg/dL Glucose (74-99) mg/dL POC Glucose (mg/dL) 161 H (75-99) mg/dL Crossmatch See Detail 11/18/21 11/18/21 11/19/21 Range/Units 18:15 23:54 05:30 WBC (3.8-10.6) k/uL RBC (4.30-5.90) m/uL Hgb (13.0-17.5) gm/dL Hct (39.0-53.0) % RDW (11.5-15.5) % Neutrophils # (Manual) (1.3-7.7) k/uL Monocytes # (Manual) (0-1.0) k/uL Myelocytes # (Manual) (0) k/uL ABG pO2 (83-108) mmHg ABG Total CO2 (19-24) mmol/L ABG O2 Saturation (94-97) % Chloride 114 H (98-107) mmol/L BUN 64 H (9-20) mg/dL Creatinine 1.77 H (0.66-1.25) mg/dL Glucose 129 H (74-99) mg/dL POC Glucose (mg/dL) 136 H 146 H (75-99) mg/dL Crossmatch 11/19/21 11/19/21 11/19/21 Range/Units 05:30 05:42 05:57 WBC 30.5 H (3.8-10.6) k/uL RBC 2.36 L (4.30-5.90) m/uL Hgb 6.7 L* (13.0-17.5) gm/dL Hct 21.3 L (39.0-53.0) % RDW 17.9 H (11.5-15.5) % Neutrophils # (Manual) 27.40 H (1.3-7.7) k/uL Monocytes # (Manual) 1.53 H (0-1.0) k/uL Myelocytes # (Manual) 0.31 H (0) k/uL ABG pO2 153 H (83-108) mmHg ABG Total CO2 25 H (19-24) mmol/L ABG O2 Saturation 98.8 H (94-97) % Chloride (98-107) mmol/L BUN (9-20) mg/dL Creatinine (0.66-1.25) mg/dL Glucose (74-99) mg/dL POC Glucose (mg/dL) 141 H (75-99) mg/dL Crossmatch
[2021-11-19 16:13] LABS: Anisocytosis Slight; HCT 22.8 % (39.0-53.0); HGB 7.6 gm/dL (13.0-17.5); Hypochromasia Moderate; MCH 30.3 pg (25.0-35.0); MCHC 33.4 g/dL (31.0-37.0); MCV 90.7 fL (80.0-100.0); Mean Platelet Volume 9.2; Platelet Count 397 k/uL (150-450); Poikilocytosis Slight; RBC 2.52 m/uL (4.30-5.90); RDW 17.4 % (11.5-15.5); WBC 25.6 k/uL (3.8-10.6)
[2021-11-19 17:11] LABS: ABG Base Excess -0.7 mmol/L; ABG HCO3 24 mmol/L (21-25); ABG Oxygen Saturation 98.7 % (94-97); ABG PCO2 41 mmHg (35-45); ABG PH 7.38 (7.35-7.45); ABG PO2 118 mmHg (83-108); ABG TCO2 26 mmol/L (19-24); Allen Test Performed? Yes
[2021-11-19 18:11] LABS: Glucose,Whole Blood 127 mg/dL (75-99)
[2021-11-20] MEDS: CALCIUM CHLORIDE IV SCH ×10 (00:04→15:43)
[2021-11-20] MEDS: [UNRECOGNIZED DRUG - OTHER] IV SCH ×10 (00:04→15:43)
[2021-11-20] MEDS: AMINO ACID 5% IV SCH ×10 (00:04→15:43)
[2021-11-20] MEDS: POTASSIUM ACETATE IV SCH ×10 (00:04→15:43)
[2021-11-20 00:16] LABS: Glucose,Whole Blood 145 mg/dL (75-99)
[2021-11-20] MEDS: INSULIN ASPART (NovoLOG) 100 UNIT/ML VIAL SQ SCH ×4 (00:26→18:31)
[2021-11-20] MEDS: LORazepam 2 MG/ML INJ IV SCH ×4 (00:27→18:29)
[2021-11-20] MEDS: METOCLOPRAMIDE 5 MG/ML 2 ML VIAL IVP SCH ×4 (02:16→20:02)
[2021-11-20 05:09] LABS: Calcium 8.8 mg/dL (8.4-10.2); Phosphorus 4.3 mg/dL (2.5-4.5); Potassium 4.2 mmol/L (3.5-5.1)
[2021-11-20 06:21] LABS: Glucose,Whole Blood 133 mg/dL (75-99)
[2021-11-20 06:23] LABS: Anisocytosis Slight; Basophils # (A) 0.1 k/uL (0-0.2); Basophils % (A) 1 %; Eosinophils # (A) 0.2 k/uL (0-0.7); Eosinophils % (A) 1 %; Hypochromasia Moderate; Lymphocytes # (A) 0.9 k/uL (1.0-4.8); Lymphocytes % (A) 4 %; MCH 28.3 pg (25.0-35.0); MCV 91.3 fL (80.0-100.0); Mean Platelet Volume 8.2; Monocytes # (A) 0.7 k/uL (0-1.0); Monocytes % (A) 3 %; Neutrophils # (A) 21.4 k/uL (1.3-7.7); Neutrophils % (A) 91 %; Platelet Count 416 k/uL (150-450); Poikilocytosis Slight; RDW 17.9 % (11.5-15.5); WBC 23.5 k/uL (3.8-10.6)
[2021-11-20 06:27] LABS: HGB 6.5 gm/dL (13.0-17.5)
[2021-11-20] MEDS: IPRATROPIUM-ALBUTEROL 3 ML NEB INHALATION SCH ×3 (07:51→20:13)
--- NOTE | 2021-11-20 09:08 | XR ---
EXAMINATION TYPE: XR chest 1V portable DATE OF EXAM: 11/20/2021 COMPARISON: 11/19/2021 HISTORY: Shortness of breath TECHNIQUE: Single frontal view of the chest is obtained. FINDINGS: PICC line appears in good position with the tip overlying the SVC. ET and NG tube stable. Right-sided central line with the tip overlying the right atrium. Persistent bilateral consolidation and small effusion greater on the left. Heart size stable. No sizable pneumothorax.. Hypertrophic and degenerative change of the spine IMPRESSION: Persistent bilateral infiltrate and pleural effusion greater on the left correlate for p neumonia versus CHF.
[2021-11-20] MEDS: HYDROmorphone 0.5 MG/0.5 ML SYRINGE IVP PRN (10:54)
[2021-11-20] MEDS: PANTOPRAZOLE 40 MG/10 ML VIAL IVP SCH ×2 (11:19→20:02)
[2021-11-20] MEDS: FUROSEMIDE 10 MG/ML 4 ML VIAL IV SCH ×2 (11:20→20:02)
[2021-11-20] MEDS: ERTAPENEM 1 GM in SODIUM CHLORIDE 0.9% 50 ML IVPB SCH (11:21)
[2021-11-20] MEDS: NOREPINEPHRINE 8 MG in SODIUM CHLORIDE 0.9% 250 ML IV SCH (11:21)
[2021-11-20] MEDS: FLUCONAZOLE IN NACL,ISO-OSM 400 MG in SALINE 1 200ML.BAG IVPB SCH (11:21)
--- NOTE | 2021-11-20 11:23 | P.PN ---
Subjective Progress Note Date: 11/20/21 Principal diagnosis: Abdominal sepsis and septic shock. 11/17/2021, patient is extubated. Noted the patient was extubated successfully yesterday. Post extubation, he became slightly anxious and restless. Based on that, the patient was placed on Precedex which is still running at a dose of 0.4 mcg/kg per minute. Nevertheless, the patient survives extubation and the patient is currently on 6 L O2 nasal cannula and his history quite comfortable. At times, he is still tachypneic. . His cough is weak. He is able to clear his upper or secretions. NG tube is in place. Output has dropped since yesterday and the patient has put out approximately 250 mL of gastric material over the past 12 hours. NG tube remains in place. The patient receiving TPN for nutritional support at the rate of 80 mL an hour and the patient's fluid balance has been negative thallium and 99 mL over the past 24 hours. Noted the patient's white cell count is at 18 with a hemoglobin of 7.1. Sodium is at 137, bicarbonate 24, creatinine is at 1.5 and the patient's abdominal fluid cultures came back positive for E. coli that was resistant to Zosyn. He also has Cortney albicans. No other significant events otherwise for now. He is hemodynamically stable on no pressors. EBONY drains are in place with minimal amount of output at this point in time. He seems to be clinically anxious. No agitation at this point in time. Patient was reevaluated today on 11/18/2021, patient remains in the ICU, intubated and mechanically ventilated. He is on assist control rate of 26, volume 400 FiO2 60% and I cut it down to 50% PEEP is at 5. ABG earlier showed a pO2 of 303 pCO2 47 pH of 7.33 and this was done on on the percent FiO2. Patient remains on norepinephrine at 0.2 mcg/kg/m, he is on propofol at 25 mcg/kg/m. TPN at 80 mL per hour. He is receiving his second unit of packed RBCs this m orning, and he is on IV fluid at 10 mL per hour. Patient is sedated, his peak airway pressure is 19 plateau pressure is 21. Continues to have EBONY drains 2, and he has retention sutures. There is minimal output from his EBONY drains. Patient remains on Invanz and on Diflucan. Cultures from the EBONY d rains/abdominal fluid were positive for Cortney and for E. coli. Bronchial washing cultures positive for Cortney. Patient continues to have leukocytosis with WBC count of 45.9 hemoglobin is 5.7 this morning, and he is receiving.'s of packed RBCs this morning. Chest x-ray continues to show by basilar airspace disease/infiltrates. Highly suspicious for aspiration pneumonia. Reevaluated today on 11/20/2021, patient is now off mechanical ventilation, he was extubated yesterday, and so far he tolerated the extubation quite well. Patient is laying in bed, on 6 L nasal cannula and O2 sats 95%. He is receiving TPN at 80 mL/h, IV fluid at KVO, he is receiving today a unit of packed RBCs for hemoglobin of 6.5 this morning. Patient is nonverbal, but seems to follow very simple instructions like wiggling toes, closing eyes, and squeezing hands. Patient remains on antibiotics, remains on TPN, and I have no plans to transfer the patient out of the ICU. He is not requiring any pressors at this point, but intermittently required a blood transfusion for low hemoglobin. Patient may have ongoing oozing from his surgery, and that is to be addressed by surgery on the case. In the meantime he is also requiring antibiotics, being followed by infectious disease on the case. Chest x-ray today showed small bilateral pleural effusions left more so than right, and some patchy opacities in both lungs bilaterally especially at the base. Objective - Vital Signs Vital signs: Vital Signs Temp 100.9 F H 11/20/21 09:20 Pulse 106 H 11/20/21 09:30 Resp 30 H 11/20/21 09:30 BP 165/53 11/20/21 09:20 Pulse Ox 95 11/20/21 09:30 Intake & Output 11/19/21 11/20/21 11/20/21 18:59 06:59 18:59 Intake Total 0098.206 1236 270 Output Total 1775 1625 384 Balance -569.328 -235 -114 Intake: IV 340 450 30 Ertapenem 1 gm In Sodium 50 Chloride 0.9% 50 ml @ 100 mls/hr IVPB DAILY [facility] Rx #:[id number] Fluconazole in NaCl,Iso- 200 Osm 400 mg In Saline 1 200ml.bag @ 100 mls/hr IVPB DAILY [facility] Rx#: [id number] Mvi, Adult No.4 with Vit 400 K 10 ml Trace (Conc-1Ml/ Dose) 1 ml Potassium Acetate 40 meq Calcium Gluconate 1 gm In Amino Acid 5%-D15w 1,000 ml @ 80 mls/hr IV .BY DURATION [facility] Rx#:[id number] Sodium Chloride 0.9% 1, 90 000 ml @ 150 mls/hr IV . Q6H40M [facility] Rx#:[id number] Sodium Chloride 0.9% 1, 50 30 000 ml @ 20 mls/hr IV . Q24H [facility] Rx#:[id number] Intake, IV Titration 55.672 940 240 Amount Mvi, Adult No.4 with Vit 320 K 10 ml Trace (Conc-1Ml/ Dose) 1 ml Potassium Acetate 40 meq Calcium Gluconate 1 gm In Amino Acid 5%-D15w 1,000 ml @ 80 mls/hr IV .BY DURATION [facility] Rx#:[id number] Potassium Acetate 40 meq 560 240 Calcium Gluconate 1 gm In Amino Acid 5%-D15w 1,000 ml @ 80 mls/hr IV .BY DURATION [facility] Rx#: [id number] Sodium Chloride 0.9% 1, 60 000 ml @ 0 mls/hr IV .[facility] Rx#:[id number] propofoL 1,000 mg In 55.672 Empty Bag 1 bag @ 5 MCG/ KG/MIN 2.673 mls/hr IV . Q24H [facility] Rx#:[id number] Blood Product 810 0 Rc As-1 Unit 310 [id number] Rc As-1 Unit 0 [id number] Output: Gastric Drainage 525 Drainage 30 Left Abdomen 10 Right Abdomen 20 Urine 1220 1625 384 Other: Voiding Method Indwelling Catheter Indwelling Catheter # Bowel Movements 3 ABP, PAP, CO, CI - Last Documented Arterial Blood Pressure 161/54 - Exam Physical Exam: Revealed 51-year-old white male , in no distress, on 6 L nasal cannula. O2 sats is 95%, patient is nonverbal. Head: Atraumatic, normocephalic. HEENT: PERRLA, EOMI, nonicteric, no neck masses, no JVD, Chest: Symmetrical chest expansion, crackles at the bases. Cardiac Exam: [Normal S1 and S2, no S3 gallop, no murmur.] Abdomen: Soft, abdominal dressing is in place, EBONY drains noted. Nontender abdomen. Soft. Diminished bowel sounds. Extremities: [No clubbing, trace of edema, no cyanosis, diminished distal pulses bilaterally.. Neurological Exam: Patient is awake, follows very simple instructions, nonverbal. Psychiatric: Lump mood and affect, follows only simple instructions, heart ass essment mental status - Labs CBC & Chem 7: 11/20/21 04:30 11/20/21 04:30 Labs: Abnormal Lab Results - Last 24 Hours (Table) 11/18/21 11/19/21 11/19/21 Range/Units 04:20 11:45 16:00 WBC 25.6 H (3.8-10.6) k/uL RBC 2.52 L (4.30-5.90) m/uL Hgb 7.6 L (13.0-17.5) gm/dL Hct 22.8 L (39.0-53.0) % RDW 17.4 H (11.5-15.5) % Neutrophils # (1.3-7.7) k/uL Lymphocytes # (1.0-4.8) k/uL ABG pO2 (83-108) mmHg ABG Total CO2 (19-24) mmol/L ABG O2 Saturation (94-97) % Chloride (98-107) mmol/L BUN (9-20) mg/dL Creatinine (0.66-1.25) mg/dL Glucose (74-99) mg/dL POC Glucose (mg/dL) 105 H (75-99) mg/dL Crossmatch See Detail 11/19/21 11/19/21 11/20/21 Range/Units 17:05 18:09 00:14 WBC (3.8-10.6) k/uL RBC (4.30-5.90) m/uL Hgb (13.0-17.5) gm/dL Hct (39.0-53.0) % RDW (11.5-15.5) % Neutrophils # (1.3-7.7) k/uL Lymphocytes # (1.0-4.8) k/uL ABG pO2 118 H (83-108) mmHg ABG Total CO2 26 H (19-24) mmol/L ABG O2 Saturation 98.7 H (94-97) % Chloride (98-107) mmol/L BUN (9-20) mg/dL Creatinine (0.66-1.25) mg/dL Glucose (74-99) mg/dL POC Glucose (mg/dL) 127 H 145 H (75-99) mg/dL Crossmatch 11/20/21 11/20/21 11/20/21 Range/Units 04:30 04:30 06:20 WBC 23.5 H (3.8-10.6) k/uL RBC 2.30 L (4.30-5.90) m/uL Hgb 6.5 L* (13.0-17.5) gm/dL Hct 21.0 L (39.0-53.0) % RDW 17.9 H (11.5-15.5) % Neutrophils # 21.4 H (1.3-7.7) k/uL Lymphocytes # 0.9 L (1.0-4.8) k/uL ABG pO2 (83-108) mmHg ABG Total CO2 (19-24) mmol/L ABG O2 Saturation (94-97) % Chloride 113 H (98-107) mmol/L BUN 71 H (9-20) mg/dL Creatinine 1.65 H (0.66-1.25) mg/dL Glucose 135 H (74-99) mg/dL POC Glucose (mg/dL) 133 H (75-99) mg/dL Crossmatch Assessment and Plan Assessment: Impression: Acute hypoxic respiratory failure secondary to sepsis, abdominal sepsis, septic shock, and suspect aspiration pneumonia. Status post partial gastrectomy with possible gastric wall ischemia, postoperat rashad day #21. Status post exploratory laparotomy and intra-abdominal abscesses drainage with small bowel resection postoperative day #8 Failed extubation requiring reintubation most likely secondary to aspiration pneumonia. Patient was extubated again on 11/19/2021, seems to tolerate extubation well so far Acute lactic acidosis secondary to sepsis and septic shock. Acute kidney injury secondary to sepsis/septic shock. Type 2 diabetes. History of developmental delay and autism. Acute blood loss anemia requiring transfusion, patient continues to require transfusions, so far he required 8 units of packed RBCs and he is receiving 1 today. Recommendation: Patient was extubated yesterday and the plan is not to reintubate in case he fails CODE STATUS was changed to DO NOT RESUSCITATE CODE STATUS. Continue to monitor in the ICU Continue antibiotics and antifungal therapy. Continue nutritional support./TPN. Continue GI and DVT prophylaxis. Transfuse accordingly maintain hemoglobin above 7 Continue to monitor output from drains and from nasogastric tube. Continue to monitor abdominal wounds Continue aspiration precautions Continue to monitor renal status Overall prognosis remains extremely poor and guarded. Updated his brother/legal guardian on his condition today. Made aware that the patient remains critically ill although he was extubated yesterday. Again no plans to reintubate in case he fails then we'll proceed to comfort care measures. Patient remains critically ill. Critical care time is over 30 minutes Time with Patient: Greater than 30
[2021-11-20 11:30] LABS: Glucose,Whole Blood 119 mg/dL (75-99)
--- NOTE | 2021-11-20 11:54 | P.PN ---
Subjective Progress Note Date: 11/20/21 CHIEF COMPLAINT: Abdominal pain HISTORY OF PRESENT ILLNESS: Patient was extubated yesterday. He remains in the ICU. Patient is lying in bed. He is receiving another unit of blood for hemoglobin of 6.5. NG tube with reddish bilious output. Also had a black stool this morning. Patient had a temp of 100.6. White count trending down from 25.6-23.5 hemoglobin 6.5 platelets 416 creatinine 1.65 NG tube with a total of 525 mL output through the night. EBONY drain with serosanguineous output on the right 20 mL and on the left bile tinged service and was output of 10 ML. Output through the NG tube and EBONY drain continued to decrease. PHYSICAL EXAM: VITAL SIGNS: Reviewed. GENERAL: Patient is awake and tracking with his eyes HEENT: Moist buccal mucosa. Head is atraumatic, normocephalic. ABDOMEN: Soft. Nondistended. Incisional dressing clean dry and intact. Incision site is open dressing has some small amount of serosanguineous drainage noted. Patient has retention sutures in place. ASSESSMENT: 1. Pneumoperitoneum, suspected gastric leak and section of proximal jejunum with ischemic changes status post exploratory laparotomy, drainage of upper abdominal abscess, lysis of adhesions and small bowel resection on 11/12/21 2. Ischemia of the lateral portion of the stomach and mild ischemia of the proximal jejunum status post exploratory laparotomy and partial gastrectomy on 10/30/21 3. Septic shock 4. Postoperative ileus 5. Thrombocytopenia resolved 6. Pneumonia 7. Anemia PLAN: -Continue ICU management -Continue supportive care -Patient scheduled for 1 unit of blood today -Continue to monitor hemoglobin -Continue NG tube for decompression -Continue to monitor EBONY drain output -Keep patient nothing by mouth -Continue antibiotics -Continue TPN for nutrition support -CODE STATUS DO NOT RESUSCITATE Physician Warp Dyeing Vat Tender note has been reviewed by physician. Signing provider agrees with the documented findings, assessment, and plan of care. I have personally seen and examined the patient, reviewed the INFORMATION CLERK BROKERAGE /PAs history, exam and MDM and agree with the assessment and plan as written. Based on total visit time, I have performed more than 50% of the visit. As above: Patient had some bloody NG aspirate again. Left EBONY drain with some old blood as well. Patient was extubated yesterday. Continue supportive care at this time. Pulmonary toilet will be important at this juncture. Will follow. Objective - Vital Signs Vital signs: Vital Signs Temp 100.9 F H 11/20/21 09:20 Pulse 100 11/20/21 11:30 Resp 7 L 11/20/21 11:30 BP 136/79 11/20/21 11:30 Pulse Ox 98 11/20/21 11:30 Intake & Output 11/19/21 11/20/21 11/20/21 18:59 06:59 18:59 Intake Total 1673.466 3353 580 Output Total 1775 1625 384 Balance -569.328 -235 196 Intake: IV 340 450 30 Ertapenem 1 gm In Sodium 50 Chloride 0.9% 50 ml @ 100 mls/hr IVPB DAILY [facility] Rx #:[id number] Fluconazole in NaCl,Iso- 200 Osm 400 mg In Saline 1 200ml.bag @ 100 mls/hr IVPB DAILY [facility] Rx#: [id number] Mvi, Adult No.4 with Vit 400 K 10 ml Trace (Conc-1Ml/ Dose) 1 ml Potassium Acetate 40 meq Calcium Gluconate 1 gm In Amino Acid 5%-D15w 1,000 ml @ 80 mls/hr IV .BY DURATION [facility] Rx#:[id number] Sodium Chloride 0.9% 1, 90 000 ml @ 150 mls/hr IV . Q6H40M [facility] Rx#:[id number] Sodium Chloride 0.9% 1, 50 30 000 ml @ 20 mls/hr IV . Q24H [facility] Rx#:[id number] Intake, IV Titration 55.672 940 240 Amount Mvi, Adult No.4 with Vit 320 K 10 ml Trace (Conc-1Ml/ Dose) 1 ml Potassium Acetate 40 meq Calcium Gluconate 1 gm In Amino Acid 5%-D15w 1,000 ml @ 80 mls/hr IV .BY DURATION [facility] Rx#:[id number] Potassium Acetate 40 meq 560 240 Calcium Gluconate 1 gm In Amino Acid 5%-D15w 1,000 ml @ 80 mls/hr IV .BY DURATION [facility] Rx#: [id number] Sodium Chloride 0.9% 1, 60 000 ml @ 0 mls/hr IV .ST[facility] Rx#:[id number] propofoL 1,000 mg In 55.672 Empty Bag 1 bag @ 5 MCG/ KG/MIN 2.673 mls/hr IV . Q24H [facility] Rx#:[id number] Blood Product 810 310 Rc As-1 Unit 310 [id number] Rc As-1 Unit 310 [id number] Output: Gastric Drainage 525 Drainage 30 Left Abdomen 10 Right Abdomen 20 Urine 1220 1625 384 Other: Voiding Method Indwelling Catheter Indwelling Catheter # Bowel Movements 3 ABP, PAP, CO, CI - Last Documented Arterial Blood Pressure 206/64 - Labs CBC & Chem 7: 11/20/21 04:30 11/20/21 04:30 Labs: Abnormal Lab Results - Last 24 Hours (Table) 11/18/21 11/19/21 11/19/21 Range/Units 04:20 16:00 17:05 WBC 25.6 H (3.8-10.6) k/uL RBC 2.52 L (4.30-5.90) m/uL Hgb 7.6 L (13.0-17.5) gm/dL Hct 22.8 L (39.0-53.0) % RDW 17.4 H (11.5-15.5) % Neutrophils # (1.3-7.7) k/uL Lymphocytes # (1.0-4.8) k/uL ABG pO2 118 H (83-108) mmHg ABG Total CO2 26 H (19-24) mmol/L ABG O2 Saturation 98.7 H (94-97) % Chloride (98-107) mmol/L BUN (9-20) mg/dL Creatinine (0.66-1.25) mg/dL Glucose (74-99) mg/dL POC Glucose (mg/dL) (75-99) mg/dL Crossmatch See Detail 11/19/21 11/20/21 11/20/21 Range/Units 18:09 00:14 04:30 WBC (3.8-10.6) k/uL RBC (4.30-5.90) m/uL Hgb (13.0-17.5) gm/dL Hct (39.0-53.0) % RDW (11.5-15.5) % Neutrophils # (1.3-7.7) k/uL Lymphocytes # (1.0-4.8) k/uL ABG pO2 (83-108) mmHg ABG Total CO2 (19-24) mmol/L ABG O2 Saturation (94-97) % Chloride 113 H (98-107) mmol/L BUN 71 H (9-20) mg/dL Creatinine 1.65 H (0.66-1.25) mg/dL Glucose 135 H (74-99) mg/dL POC Glucose (mg/dL) 127 H 145 H (75-99) mg/dL Crossmatch 11/20/21 11/20/21 11/20/21 Range/Units 04:30 06:20 11:29 WBC 23.5 H (3.8-10.6) k/uL RBC 2.30 L (4.30-5.90) m/uL Hgb 6.5 L* (13.0-17.5) gm/dL Hct 21.0 L (39.0-53.0) % RDW 17.9 H (11.5-15.5) % Neutrophils # 21.4 H (1.3-7.7) k/uL Lymphocytes # 0.9 L (1.0-4.8) k/uL ABG pO2 (83-108) mmHg ABG Total CO2 (19-24) mmol/L ABG O2 Saturation (94-97) % Chloride (98-107) mmol/L BUN (9-20) mg/dL Creatinine (0.66-1.25) mg/dL Glucose (74-99) mg/dL POC Glucose (mg/dL) 133 H 119 H (75-99) mg/dL Crossmatch
--- NOTE | 2021-11-20 17:08 | P.PN ---
Subjective Progress Note Date: 11/19/21 11/19/2021: Patient was seen for a follow-up. Patient's brother, and [id number] were present today. Patient is intubated. Patient is off sedation. Patient continues to be severely encephalopathic. Patient is now DO NOT RESUSCITATE. Family is considering extubation and symptomatic treatment. Patient to be DNR/DNI. Patient was seen for a follow-up. Patient's caregivers brother and brother-in- law were present today. According to them, patient is doing better. He speaks a few words, tracks. Still encephalopathic. Patient earlier this morning had a temperature of 101.5. He had undergone blood culture, urine culture. Lactate is 1.4. The nurse was also present. When she requested, patient did speak "hi", "thank you". Patient was able to lift his arms, left more than right. Also crossed his legs. His speech is not back to his baseline. Overall he is doing better. Patient did receive 1 dose of Dilaudid 0.5 mg at 3 AM. Objective - Vital Signs Vital signs: Vital Signs Temp 98.7 F 11/19/21 12:00 Pulse 94 11/19/21 14:00 Resp 29 H 11/19/21 14:00 BP 154/56 11/19/21 10:57 Pulse Ox 99 11/19/21 14:00 Intake & Output 11/18/21 11/19/21 11/19/21 18:59 06:59 18:59 Intake Total 2212.072 2137.312 1110 Output Total 1140 1490 500 Balance 1072.072 647.312 610 Weight 90 kg 89.2 kg Intake: IV 1130 960 290 Ertapenem 1 gm In Sodium 50 50 Chloride 0.9% 50 ml @ 100 mls/hr IVPB DAILY [facility] Rx #:[id number] Fluconazole in NaCl,Iso- 200 200 Osm 400 mg In Saline 1 200ml.bag @ 100 mls/hr IVPB DAILY [facility] Rx#: [id number] Mvi, Adult No.4 with Vit 880 960 K 10 ml Trace (Conc-1Ml/ Dose) 1 ml Potassium Acetate 40 meq Calcium Gluconate 1 gm In Amino Acid 5%-D15w 1,000 ml @ 80 mls/hr IV .BY DURATION [facility] Rx#:[id number] Sodium Chloride 0.9% 1, 40 000 ml @ 150 mls/hr IV . Q6H40M ON LICENSE OF [facility] Rx#:[id number] Intake, IV Titration 646.809 3477.312 10 Amount Norepinephrine 8 mg In 311.849 Sodium Chloride 0.9% 250 ml @ 0.05 MCG/KG/MIN 8.62 mls/hr IV .Q24H ON LICENSE OF [facility] Rx#: [id number] Potassium Acetate 40 meq 1030 Calcium Gluconate 1 gm In Amino Acid 5%-D15w 1,000 ml @ 80 mls/hr IV .BY DURATION [facility] Rx#: [id number] Sodium Chloride 0.9% 1, 10 000 ml @ 0 mls/hr IV .STK [facility] Rx#:[id number] propofoL 1,000 mg In 150.223 147.312 Empty Bag 1 bag @ 5 MCG/ KG/MIN 2.673 mls/hr IV . Q24H ON LICENSE OF [facility] Rx#:[id number] Blood Product 620 810 Rc As-1 Unit 310 [id number] Rc As-1 Unit 310 [id number] Rc As-1 Unit 310 [id number] Output: Gastric Drainage 155 Drainage 55 20 Left Abdomen 35 15 Right Abdomen 20 5 Urine 1085 1315 500 Other: Voiding Method Indwelling Catheter Indwelling Catheter Indwelling Catheter # Voids 260 # Bowel Movements 2 1 1 ABP, PAP, CO, CI - Last Documented Arterial Blood Pressure 176/63 - Exam Patient is sedated, encephalopathic. Pupils are equal, round and reacting. Oculocephalics are present. Tone is equal bilaterally. Patient has peripheral edema. Detailed testing deferred. - Labs CBC & Chem 7: 11/20/21 04:30 11/20/21 04:30 Labs: Abnormal Lab Results - Last 24 Hours (Table) 11/18/21 11/18/21 11/18/21 Range/Units 04:20 18:15 23:54 WBC (3.8-10.6) k/uL RBC (4.30-5.90) m/uL Hgb (13.0-17.5) gm/dL Hct (39.0-53.0) % RDW (11.5-15.5) % Neutrophils # (Manual) (1.3-7.7) k/uL Monocytes # (Manual) (0-1.0) k/uL Myelocytes # (Manual) (0) k/uL ABG pO2 (83-108) mmHg ABG Total CO2 (19-24) mmol/L ABG O2 Saturation (94-97) % Chloride (98-107) mmol/L BUN (9-20) mg/dL Creatinine (0.66-1.25) mg/dL Glucose (74-99) mg/dL POC Glucose (mg/dL) 136 H 146 H (75-99) mg/dL Crossmatch See Detail 11/19/21 11/19/21 11/19/21 Range/Units 05:30 05:30 05:42 WBC 30.5 H (3.8-10.6) k/uL RBC 2.36 L (4.30-5.90) m/uL Hgb 6.7 L* (13.0-17.5) gm/dL Hct 21.3 L (39.0-53.0) % RDW 17.9 H (11.5-15.5) % Neutrophils # (Manual) 27.40 H (1.3-7.7) k/uL Monocytes # (Manual) 1.53 H (0-1.0) k/uL Myelocytes # (Manual) 0.31 H (0) k/uL ABG pO2 (83-108) mmHg ABG Total CO2 (19-24) mmol/L ABG O2 Saturation (94-97) % Chloride 114 H (98-107) mmol/L BUN 64 H (9-20) mg/dL Creatinine 1.77 H (0.66-1.25) mg/dL Glucose 129 H (74-99) mg/dL POC Glucose (mg/dL) 141 H (75-99) mg/dL Crossmatch 11/19/21 11/19/21 Range/Units 05:57 11:45 WBC (3.8-10.6) k/uL RBC (4.30-5.90) m/uL Hgb (13.0-17.5) gm/dL Hct (39.0-53.0) % RDW (11.5-15.5) % Neutrophils # (Manual) (1.3-7.7) k/uL Monocytes # (Manual) (0-1.0) k/uL Myelocytes # (Manual) (0) k/uL ABG pO2 153 H (83-108) mmHg ABG Total CO2 25 H (19-24) mmol/L ABG O2 Saturation 98.8 H (94-97) % Chloride (98-107) mmol/L BUN (9-20) mg/dL Creatinine (0.66-1.25) mg/dL Glucose (74-99) mg/dL POC Glucose (mg/dL) 105 H (75-99) mg/dL Crossmatch Assessment and Plan Assessment: * Altered mental status, likely due to toxic metabolic encephalopathy. * Generalized weakness, possible due to encephalopathy. 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 * Status post septic shock. * Status post acute kidney injury, improved * Episode of hypoglycemia 36 mg/dL) on 11/01/2021 At 12:20 AM. * Diabetes * Hypertension * Anemia * Developmental delay, autism and intellectual impairment. Plan: * Patient is encephalopathic, intubated, sedated. Exam limited. Possible extubation tomorrow, we will reevaluate. * EEG 11/06/2021 revealed moderate background slowing consistent with encephalopathy. No epileptiform activity was seen. * Computed tomography scan of the head showed no acute process. * Repeat ammonia is normal <9. B12 > 2000, folate 10.9. TSH is normal. * Avoid any episodes of hypoglycemia. * Patient on SCDs for DVT prophylaxis. * Discussed with patient's caregivers.
--- NOTE | 2021-11-20 17:18 | P.PN ---
Subjective Progress Note Date: 11/20/21 11/20/2021: Patient extubated yesterday at around 4 PM. Patient is much more alert. He is still mentally slow, does track. Patient's caregivers including his brother and [id number] were present. He is watching TV, tracks at time. Does not follow much commands. Patient does move his lower extremities, crosses his legs. Patient's nurses reported that he only said once "yes", for pain anywhere, for which he was given Dilaudid. Otherwise he does not follow commands. 11/19/2021: Patient was seen for a follow-up. Patient's brother, and [id number] were present today. Patient is intubated. Patient is off sedation. Patient continues to be severely encephalopathic. Patient is now DO NOT RESUSCITATE. Family is considering extubation and symptomatic treatment. Patient to be DNR/DNI. Objective - Vital Signs Vital signs: Vital Signs Temp 99.4 F 11/20/21 16:30 Pulse 102 H 11/20/21 16:30 Resp 24 11/20/21 16:30 BP 138/78 11/20/21 16:30 Pulse Ox 96 11/20/21 16:30 Intake & Output 11/19/21 11/20/21 11/20/21 18:59 06:59 18:59 Intake Total 5804.482 2100 1913.3 Output Total 1775 1625 2984 Balance -569.328 -235 -1070.7 Weight 89.2 kg Intake: IV 340 450 100 Ertapenem 1 gm In Sodium 50 Chloride 0.9% 50 ml @ 100 mls/hr IVPB DAILY [facility] Rx #:[id number] Fluconazole in NaCl,Iso- 200 Osm 400 mg In Saline 1 200ml.bag @ 100 mls/hr IVPB DAILY [facility] Rx#: [id number] Mvi, Adult No.4 with Vit 400 K 10 ml Trace (Conc-1Ml/ Dose) 1 ml Potassium Acetate 40 meq Calcium Gluconate 1 gm In Amino Acid 5%-D15w 1,000 ml @ 80 mls/hr IV .BY DURATION [facility] Rx#:[id number] Sodium Chloride 0.9% 1, 90 000 ml @ 150 mls/hr IV . Q6H40M [facility] Rx#:[id number] Sodium Chloride 0.9% 1, 50 100 000 ml @ 20 mls/hr IV . Q24H [facility] Rx#:[id number] Intake, IV Titration 55.398 168 7723.3 Amount Mvi, Adult No.4 with Vit 320 K 10 ml Trace (Conc-1Ml/ Dose) 1 ml Potassium Acetate 40 meq Calcium Gluconate 1 gm In Amino Acid 5%-D15w 1,000 ml @ 80 mls/hr IV .BY DURATION [facility] Rx#:[id number] Potassium Acetate 40 meq 1023.3 Calcium Chloride 0.33 gm In Amino Acid 5%-D15w 1, 000 ml @ 80 mls/hr IV .BY DURATION [facility] Rx#: [id number] Potassium Acetate 40 meq 560 480 Calcium Gluconate 1 gm In Amino Acid 5%-D15w 1,000 ml @ 80 mls/hr IV .BY DURATION [facility] Rx#: [id number] Sodium Chloride 0.9% 1, 60 000 ml @ 0 mls/hr IV .[facility] Rx#:[id number] propofoL 1,000 mg In 55.672 Empty Bag 1 bag @ 5 MCG/ KG/MIN 2.673 mls/hr IV . Q24H [facility] Rx#:[id number] Blood Product 810 310 Rc As-1 Unit 310 [id number] Rc As-1 Unit 310 [id number] Output: Gastric Drainage 525 Drainage 30 Left Abdomen 10 Right Abdomen 20 Urine 1220 1625 2984 Other: Voiding Method Indwelling Catheter Indwelling Catheter Indwelling Catheter # Bowel Movements 3 ABP, PAP, CO, CI - Last Documented Arterial Blood Pressure 206/64 - Exam Patient is more alert and awake, still slow mentation, prolonged latency. He does make eye contact, tracks. Pupils are round and reacting. Face is symmetric. He is extubated. Patient's tone is equal. Reflexes are 2+ to 3 in the arms and legs and plantars are withdrawal. Patient has peripheral edema. Tone is equal bilaterally. Some tremors were noted appears metabolic. - Labs CBC & Chem 7: 11/20/21 04:30 11/20/21 04:30 Labs: Abnormal Lab Results - Last 24 Hours (Table) 11/18/21 11/19/21 11/19/21 Range/Units 04:20 17:05 18:09 WBC (3.8-10.6) k/uL RBC (4.30-5.90) m/uL Hgb (13.0-17.5) gm/dL Hct (39.0-53.0) % RDW (11.5-15.5) % Neutrophils # (1.3-7.7) k/uL Lymphocytes # (1.0-4.8) k/uL ABG pO2 118 H (83-108) mmHg ABG Total CO2 26 H (19-24) mmol/L ABG O2 Saturation 98.7 H (94-97) % Chloride (98-107) mmol/L BUN (9-20) mg/dL Creatinine (0.66-1.25) mg/dL Glucose (74-99) mg/dL POC Glucose (mg/dL) 127 H (75-99) mg/dL Crossmatch See Detail 11/20/21 11/20/21 11/20/21 Range/Units 00:14 04:30 04:30 WBC 23.5 H (3.8-10.6) k/uL RBC 2.30 L (4.30-5.90) m/uL Hgb 6.5 L* (13.0-17.5) gm/dL Hct 21.0 L (39.0-53.0) % RDW 17.9 H (11.5-15.5) % Neutrophils # 21.4 H (1.3-7.7) k/uL Lymphocytes # 0.9 L (1.0-4.8) k/uL ABG pO2 (83-108) mmHg ABG Total CO2 (19-24) mmol/L ABG O2 Saturation (94-97) % Chloride 113 H (98-107) mmol/L BUN 71 H (9-20) mg/dL Creatinine 1.65 H (0.66-1.25) mg/dL Glucose 135 H (74-99) mg/dL POC Glucose (mg/dL) 145 H (75-99) mg/dL Crossmatch 11/20/21 11/20/21 Range/Units 06:20 11:29 WBC (3.8-10.6) k/uL RBC (4.30-5.90) m/uL Hgb (13.0-17.5) gm/dL Hct (39.0-53.0) % RDW (11.5-15.5) % Neutrophils # (1.3-7.7) k/uL Lymphocytes # (1.0-4.8) k/uL ABG pO2 (83-108) mmHg ABG Total CO2 (19-24) mmol/L ABG O2 Saturation (94-97) % Chloride (98-107) mmol/L BUN (9-20) mg/dL Creatinine (0.66-1.25) mg/dL Glucose (74-99) mg/dL POC Glucose (mg/dL) 133 H 119 H (75-99) mg/dL Crossmatch Assessment and Plan Assessment: * Altered mental status, likely due to toxic metabolic encephalopathy. * Status post extubation 11/19/2021. * Generalized weakness, possible due to encephalopathy. Possible some component of critical illness myopathy. Patient has brisk reflexes, therefore no evidence of GBS. 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 * Status post septic shock. * Status post acute kidney injury, improved, but now again worsening. * Episode of hypoglycemia 36 mg/dL) on 11/01/2021 At 12:20 AM. * Diabetes * Hypertension * Anemia * Developmental delay, autism and intellectual impairment. Plan: * Patient is extubated. Continues to be encephalopathic. Patient has significant toxic metabolic encephalopathy due to reasons mentioned above. * EEG 11/06/2021 revealed moderate background slowing consistent with encephalop athy. No epileptiform activity was seen. * Computed tomography scan of the head showed no acute process. * Repeat ammonia is normal <9. B12 > 2000, folate 10.9. TSH is normal. * Avoid any episodes of hypoglycemia. * Patient on SCDs for DVT prophylaxis. * Medical management as per IM, critical care, surgery and other specialties. * Discussed with patient's caregivers. * Patient is now DO NOT RESUSCITATE.
[2021-11-20 17:47] LABS: Anisocytosis Slight; Basophils # (A) 0.1 k/uL (0-0.2); Basophils % (A) 1 %; Eosinophils # (A) 0.2 k/uL (0-0.7); Eosinophils % (A) 1 %; HCT 23.2 % (39.0-53.0); HGB 7.3 gm/dL (13.0-17.5); Hypochromasia Moderate; Lymphocytes # (A) 1.3 k/uL (1.0-4.8); Lymphocytes % (A) 6 %; MCH 28.6 pg (25.0-35.0); MCHC 31.6 g/dL (31.0-37.0); MCV 90.6 fL (80.0-100.0); Mean Platelet Volume 8.3; Monocytes # (A) 0.8 k/uL (0-1.0); Monocytes % (A) 4 %; Neutrophils # (A) 19.5 k/uL (1.3-7.7); Neutrophils % (A) 88 %; Platelet Count 392 k/uL (150-450); Poikilocytosis Slight; RBC 2.56 m/uL (4.30-5.90); RDW 17.8 % (11.5-15.5); WBC 22.2 k/uL (3.8-10.6)
[2021-11-20 18:05] LABS: Glucose,Whole Blood 125 mg/dL (75-99)
--- NOTE | 2021-11-20 18:11 | P.PN ---
Subjective Progress Note Date: 11/20/21 Patient was admitted for nausea vomiting diarrhea believed to have gastroenteritis. Patient continued to have vomiting and started having abdominal tenderness because of which CT of the abdomen was obtained which showed pneumatosis coli along with some gas in the venous system concern for ischemic bowel. Patient was started on Zosyn. Patient subsequently decompensated patient became hypotensive with BP of 60/40 transferred to ICU patient was given 3 L of boluses of IV fluid NG tube was placed which showed bloody output . Patient in septic shock and receiving norepinephrine at this time. Recent echo showed normal ejection fraction. Patient had CTA of the chest which was negative for pulmonary embolism patient creatinine has worsened and went up to 2.80 today from 1.14 yesterday and this is secondary to acute tubular necrosis from sepsis and septic shock. Patient does have lactic acidosi s, patient does have lactic acidosis with lactic acidosis 7.5. Patient will be given 1 L of IV fluids continue pressor support. he is intubated and sedated. 10/31/2021 Patient is started having urine output. Patient underwent a arthrotomy yesterday and found to have ischemia of the lateral portion of the stomach and ischemia of the proximal jejunum patient underwent partial gastrectomy. Patient is presently on that to pressors maximized on norepinephrine, patient is also on vasopressin receiving albumin, IV fluids started having minimal urine output patient was anuric last night. Patient's chloride is highly elevated leading to metabolic acidosis patient also has an anion gap metabolic acidosis from lactic acidosis which appears to be improving at this time patient's overall clinical condition is guarded and the prognosis is poor. Patient Y blood cell count went down in fact patient is neutropenic now. Patient is presently not receiving any nutrition at this time. 11/01/2021 Patient is seen in follow-up continues to be closely monitored in the ICU in critical condition. Multiple medical consultations including pulmonary comfort station attendant, cardiology, surgery following closely. Patient is status post partial gastrectomy postop day #2. Patient continues on IV Zosyn along with normal saline at 75 ML per hour. Per nursing staff patient continues on Levophed along with vasopressin for pressor support. Patient not tolerating weaning very well to assess mentation. Patient continues on sedation of propofol and will continue. Chest x-ray today shows basilar atelectasis, may be associated effusion and to correlate to exclude pneumonia. Per nursing staff there has been minimal NG tube output and of note on the x-ray the distal tip of the NG tube is obscured although unable to fully see as there is overlying artifacts with the telemetry monitoring and the patient is rotated. Patient is also having hypoglycemic events and was started on dextrose. Surgery plans for TPN for nutritional support. Family at the bedside today and their questions and concerns were answered. 11/02/2021 Patient evaluated today in the ICU he is postoperative day #3 for partial gastrectomy, currently intubated with an FiO2 of 30% with a PEEP of 5. Current oxygen saturations are 99 to 100%. Blood pressures 119/61, respirations 28, heart rate 107, afebrile. Chest x-ray today shows a stable chest with pleural effusion unchanged, perihilar and basilar infiltrates persist. Per nurse about 500 mLs output from NG tube in the last 12 hours. Continues on IV lasix, TPN, IV zosyn. Pressor support and propfol are currently on hold. Blood pressures are maintaining 120s systolic, heart rate 113 sinus tachycardia, afebrile, respirations 27. Patient with indwelling catheter, urine is dark susana, per nurse no BM since surgery, bowels are absent left lower quadrant, hypoactive to the right quadrant. Labs today show white count 6, hemoglobin 8.6, sodium 142, potassium 3.9, chloride 124, CO2 15, BUN 41, creatinine 1.39, blood glucose in the 80s, calcium 7.2, total bili 1.7, AST 145, ALT 59. Patient is being followed closely by pulmonary, cardiology, and surgical services. 11/03/2021 Patient evaluated today and closely monitored in ICU remains in critical condition. Patient's been off sedation for 24 hours. He is currently spontaneous eye opening, eyes are tracking however he does not move his face, not following motor commands unable to wiggle fingers. Once patient is more a lert may tolerate extubation. He continues to be vented, Fi02 30% with a PEEP of 5 his current oxygen saturation 96%, blood pressure 112/74, heart rate sinus tachycardic in the low 100's, he has been afebrile. Patient has been in a negative fluid balance with -1.8 Liters in the last 24 hours and received 3 doses of IV lasix which is now discontinued. Bowel sounds are hypoactive, abdominal binder in place with dressings intact to midline incision, no bowel movements or passing gas as reported by RN. Creatinine slightly increased today to 1.44, BUN 37. No white count, hemoglobin stable at 8.2, platelets decreased to 40's for the last 2 days, heparin was discontinued, continues with SCD's. Liver enzymes stable from yesterday. Continues on D10 infusion, TPN, maintaining blood pressures off pressor support. Continues on IV zosyn. Chest xray today shows unchanged pleural effusion. Patient remains in the ICU followed closely by pulmonary, cardiology, and surgical services in critical condition. Code status was changed to DNR by family. 11/04/2021 Patient evaluated today in the intensive care unit, he is more alert than yesterday. Per RN patient had a large bowel movement today and bowels are hypoactive today in all quadrants. BM was a maroon color per nurse. Abdominal binder in place. Continues with rivas catheter with over 3L of urine output in the last 24 hours, still with peripheral edema. IV lasix 60 mg x1 was given today. NGT remains in place with only 50 mLs of output overnight. Patient remains off sedation, remains off pressor support. Blood pressure today 115/69, heart rate 106, low grade fever this morning 99.2 axillary, and patient was extubated mid morning is on a 15 L HF cannula. Chest xray this morning shows stable bilateral consolidation and pleural effusion. Remains on D10 gtt at 20 mLs per hour, TPN/Lipids, and IV zosyn. Patient also received potassium suppl ementation today. Followed closely by multiple consultations including cardiology, pulmonary, and surgery and remains in guarded condition. Labs reviewed: sodium 135, potassium 3.2, chloride 120, CO2 20, BUN 45, creat 1.26, blood glucose in the 110's, AST 81, ALT and alk phos have normalized. 11/05/2021 Patient is seen and evaluated in follow-up continues to be in the ICU under close monitoring. Patient was recently extubated and continues on 5 L high flow nasal cannula and oxygen saturations have been 97-100%. Multiple medical consultations including pulmonary comfort station attendant and surgery following closely. Chest x-ray today shows removal of endotracheal tube along with NG tube and central venous catheter on the right remains in place with no evident pneumothorax and to correlate for pneumonia, congestive heart failure, possible effusions and associated atelectasis versus edema. Patient did receive a dose of IV Lasix yesterday. Neurology consulted and CT of the brain without contrast ordered to assess mentation which is currently pending. Patient is continued on D10 and water and maintaining blood sugars in the 120s and will continue current regimen. Hemoglobin is 7.7 today with no bleeding noted. Platelets on the lower side at 65 although improved from previous and will continue to monitor closely with repeat labs in the morning. Patient also continues on IV Zosyn and will continue at this time. 11/06/2021 Patient is seen in follow-up continues to be in the ICU with multiple medical consultations following. Patient was evaluated by neurology and EEG was ordered and pending. Patient underwent CT of the brain which showed no acute abnormality noted. Patient also had chest x-ray today which shows no significant interval change compared to yesterday with continued questionable pulmonary infiltration at the mid to lower lung zones and there is some congested pulmonary vasculature with bilateral pleural effusions. Patient had been receiving one-time doses of IV Lasix daily and will add scheduled 40 mg IV Lasix and recommend repeat labs and follow-up chest x-ray. Patient is tolerating 3 L high flow via nasal cannula and maintaining oxygen saturations above 97%. Patient continues with significant weakness and PT/OT therapy consulted to follow the patient daily. Patient noted to have increased output noted in the NG tube and general surgery following an plan is for CT abdomen with contrast this afternoon. Will await report. Continues to be nothing by mouth on TPN and will continue for now. 11/07/2021 Patient is seen and continues to be closely monitored in the ICU. Patient underwent CT abdomen and pelvis which shows some resolution of the previously seen gastric pneumatosis with mild wall thickening of the stomach with questionable minimal residual pneumatosis of the second and third part of the duodenum. There is noted 3 flow of the ingested oral contrast on the ileocecal junction with no evidence of contrast leak. There are slightly dilated small bowel loops measuring 3.3 cm with no definite transition point which may suggest an element of ileus. There is some diffuse bowel thickening of the diana nonspecific and fluid-filled colon with thickened wall that may suggest colitis. Also some moderate amount of free abdominal and pelvic fluid with peritoneal fat stranding and most probably related to postoperative changes although peritonitis cannot be excluded. There is a 2.8 cm gallbladder stone with no gallbladder wall thickening or gross signs of acute cholecystitis with no definite intrahepatic focal lesions identified. And there is some bilateral nasal pleural effusions and subsegmental pulmonary atelectasis demonstrating air bronchogram within. Patient is not currently on antibiotics and patient is afebrile. WBC is 8.4, hemoglobin is 7.9, BMP is noted and magnesium is 2.4, triglycerides found to be elevated at 256. Multiple medical consultations following and will continue to follow closely. All intake of fluids have been decreased to 70 mL per hour including TPN. Recommend follow-up chest x-ray in the morning. Nursing staff reports to a bowel movement yesterday although none today. 11/08/2021 Patient continues to be in the ICU being closely monitored. Patient to continue with NG tube as patient continues to have large amounts of output noted in the container. Patient did have a bowel movement yesterday along with today per nursing staff. Patient having some low-grade temps with T-max 101.5 and IV antibiotics in the form of Zosyn have been resumed. Patient continues on TPN and is currently nothing by mouth with NG tube continued. Patient currently receiving chest physiotherapy for continued secretions noted that patient is unable to expectorate. Would encourage incentive spirometer although patient is unable to perform. Duo nebs and updrafts also ordered. Recommend blood, sputum, and urine cultures which are currently pending. Recommend repeat labs. Chest x-ray is ordered. 11/11/2021 This is a patient who has had prolonged hospitalization secondary to ischemic bowel and sepsis and has undergone gastrectomy. Patient was recently transferred out of the ICU to the [facility] unit and had become more lethargic and unresponsive patient was found unresponsive and foaming at the mouth and a code was called. Case was discussed with ICU and patient being brought back to the ICU. Patient's CODE STATUS was addressed with family per nursing staff and brother is okay with intubating the patient. Patient's CODE STATUS is no code. Patient was placed on BiPAP although continued to progress and worsen and patient is currently being intubated by pulmonary comfort station attendant. Patient family also agreeable to pressor support and continuing current medications, per nursing just does not want CPR initiated. Chest x-ray this morning shows increased interstitial densities and increased small left pleural effusion now with more pronounced airspace disease in the retrocardiac region of the left base and correlate for pneumonia and developing pulmonary vascular congestion. Magnesium also low at 1.4 and being replaced. 11/12/2021 Patient is seen in follow-up continues to be closely monitored in the ICU continued under mechanical ventilation and is sedated. Multiple medical consultations including general surgery. Chest x-ray today shows bilateral infiltrates greater on the left with small left effusion correlate for interstitial pneumonitis versus congestion otherwise findings are stable. Patient is continued on IV antibiotics and awaiting for bronchial washings to finalize. Blood cultures have been negative. Patient continues to have low- grade intermittent temps and continues to be tachypneic. FiO2 is currently 40% with a PEEP of 5. No plans for extubation today. Per nursing staff there continues to be large amounts of output noted in the NG and appear maroon- colored in nature and again general surgery is following. Patient has not had any reported bowel movements per nursing staff since 11/08/2021. There are positive bowel sounds noted on exam and abdomen is soft. Patient underwent CT abdomen yesterday showing pleural effusions with extensive lower lobe pulmonary consolidation and atelectasis similar to old exam with abdominal ascites fluid slightly improved compared to last exam and there is evidence of mild small bowel ileus with no free air and cholelithiasis noted. There is subcutaneous emphysema which is mild around the abdomen and pelvis which is improved compared to last exam as well. 11/13/2021 Patient continues in the ICU in critical condition. Patient was brought back to surgery last night and is status post exploratory laparotomy, drainage of upper abdominal abscess, lysis of adhesions and small bowel resection. Patient continues with TPN and is NPO. Patient continues on mechanical vent with an FI02 of 40% and peep of 5. 2JP drains noted with bilious and serosanguineous fluid and [employer] noted with dark maroon colored drainage. Per nursing staff NG output has decreased. No bowel movements reported. Patient continues on Levophed as well. IV antibiotics as patient continues to be febrile. 11/14/2021 Patient is seen today continues to be closely monitored in the ICU remains on mechanical vent with sedation. FiO2 is 40% with a PEEP of 5. Patient continues to be followed by pulmonary comfort station attendant along with general surgery. Per nursing staff copious amounts of drainage from the EBONY drain that is bilious most likely continued leak. NG tube continues to have output which appears more maroon and blood tinged and hemoglobin is down to be 6.5 and waiting to receive a unit of PRBC. Patient is afebrile today. Some of the bronchial washings showing Cortney albicans although preliminary and awaiting other cultures. Patient is also maintained on sodium bicarb drip along with fluconazole and Levophed is c urrently off. Patient continues on IV antibiotics in the form of Zosyn and will continue along with vancomycin. 11/15/2021 Patient is seen today in the ICU continues to be in critical condition being closely monitored. Patient remains on mechanical ventilation with an FiO2 of 40% and PEEP is 5. Patient continues on sodium bicarb drip along with sulconazole and Zosyn along with vancomycin and will continue. Patient continues to be sedated with propofol and has IV Dilaudid as needed. Patient continues with low-grade intermittent temps and preliminary body fluid cultures growing gram-negative bacilli and yeast species along with Cortney albicans. Awaiting finalized cultures. Patient off pressor support and maintaining adequate blood pressure. WBC mildly down at 20.3 and hemoglobin is 7.3 today. Per nursing staff there was a bowel movement noted that was bloody today. Sedation holidays being conducted to assess for possible weaning and extubation with neurology following as well. Chest x-ray today shows diffuse pleural parenchymal changes with bilateral consolidation and pleural effusions to correlate for pneumonia and CHF is not excluded. Overall prognosis is extremely guarded. 11/16/2021 Patient is currently in the MICU. Was extubated this morning. Patient is able to open his eyes and track but could not communicate. Bronchoalveolar lavage culture showed Cortney albicans. Chest x-ray today showed findings favors CHF exacerbation as there is mild cardiomegaly with mild central vascular congestion and suspected small bilateral pleural effusions with associated bibasilar atelectasis and likely acute infiltrates. Correlate clinically. Laboratory showed WBC 22.8 hemoglobin 7.1 sodium 137 potassium 4.4 chloride 115 bicarb is 18 BUN 34 and creatinine 1.37 and calcium 8.1 Patient is being continued antibiotics above ertapenem. Continue Lasix 40 mg every 12 and TPN. Pulmonary and general surgery is on board. 11/17/2021 Patient is currently resting in bed. Anxious and restless and was started on Precedex. Patient was successfully extubated on 11/16/2021. Currently on 6 L oxygen via nasal cannula. NG tube is in place. Patient is also on TPN. Patient is being continued on antibiotics . Also on IV Lasix 40 mg every 12. Chest x-ray showed findings f avor CHF exacerbation and fluid overload state as there is mild cardiomegaly with mild central venous congestion. Patient has been afebrile. No diarrhea. No sputum production. Pulmonary and general surgery is on board. 11/18/2021 Patient is seen and evaluated in follow up this morning and continues to be in the ICU and was reintubated again this morning. Chest xray shows CHF and pleural effusions as previously noted. No evidence of pneumothorax. Patient continues with an FI02 of 50% and peep is 5. Patient continues on sedation. Patient to continue with IV antibiotics and also antifungals. WBC is elevated. Per nursing staff, hemoglobin is 5.9 and bleeding from NG tube. Patient to receive 2 units of PRBC. 11/19/2021 Patient is seen in follow-up this morning closely monitored with multiple medical consultations following. Patient continues on mechanical vent with an FiO2 of 35% and PEEP is 5. Patient's hemoglobin is 6.7 today and continues with bleeding noted in the NG tube. Patient is to receive another unit of PRBCs and will continue to monitor hemoglobin and bleeding closely. Weaning parameters are continuously being assessed and possible extubation in the next day or so per pulmonary. Brother at the bedside and is agreeable with no CODE STATUS and no further intubations as patient has been also intubated multiple times this admission and continues to deteriorate. Chest x-ray today shows persistent bilateral infiltrates with pleural effusions greater on the left and correlate for pneumonia versus CHF. Kidney functions slightly worsening as well and trending up. WBC continues to be elevated and patient is maintained on IV antibiotics. 11/20/2021 Patient is seen in follow-up today continues to be in the ICU with multiple medical consultations following. Patient was recently extubated yesterday and currently maintained on 6 L nasal cannula. patient continues to have GI bleeding with NG tube noted to have bleeding along with dark maroon stools noted. Hemoglobin is 6.5 today and will be receiving a unit of PRBC. WBC remains elevated and continues on IV antibiotics. Patient is nonverbal but follows simple commands. Continues to be in critical condition. To continue with NG tube and TPN for now. Surgery following as well. Review of systems: Unable to obtain as patient is nonverbal Active Medications Albuterol/Ipratropium (Ipratropium-Albuterol 3 Ml Neb) 3 ml INHALATION RT-TID [facility] Last Admin: 11/20/21 07:51 Dose: 3 ml Documented by: Atropine Sulfate (Atropine Ophth Soln 1% 5ml Btl) 2 drops SUBLINGUAL Q4HR PRN PRN Reason: Excess Secretions Furosemide (Furosemide 10 Mg/Ml 4 Ml Vial) 40 mg IV Q12HR [facility]ERT[facility] Last Admin: 11/20/21 11:20 Dose: 40 mg Documented by: Hydromorphone HCl (Hydromorphone 0.5 Mg/0.5 Ml Syringe) 0.5 mg IVP Q3HR PRN PRN Reason: Pain Last Admin: 11/20/21 10:54 Dose: 0.5 mg Documented by: Fluconazole/Sodium Chloride (400 mg/ IV Solution) 200 mls @ 100 mls/hr IVPB DAILY [facility]; Protocol Last Admin: 11/20/21 11:21 Dose: 100 mls/hr Documented by: Ertapenem 1 gm/ Sodium (Chloride) 50 mls @ 100 mls/hr IVPB DAILY [facility]; Protocol Last Admin: 11/20/21 11:21 Dose: 100 mls/hr Documented by: Norepinephrine Bitartrate 8 mg (/ Sodium Chloride) 258 mls @ 8.62 mls/hr IV .Q24H [facility]; Protocol Last Admin: 11/20/21 11:21 Dose: Not Given Documented by: Potassium Acetate 40 meq/Calcium Chloride 0.33 gm/Amino Acids/Dextrose 1,023.3 mls @ 80 mls/hr IV .BY DURATION [facility] Last Admin: 11/20/21 00:04 Dose: 80 mls/hr Documented by: Parenteral Vitamin Supplement 10 ml/ Zinc/Copper/Manganese/Selenium 1 ml/ Potassium Acetate 40 meq/ Calcium Chloride 0.33 gm/ Amino Acids/Dextrose 1,0 34.3 mls @ 80 mls/hr IV .BY DURATION [facility] Insulin Aspart (Insulin Aspart (Novolog) 100 Unit/Ml Vial) 0 unit SQ Q6HR [facility]; Protocol Last Admin: 11/20/21 11:29 Dose: Not Given Documented by: Lorazepam (Lorazepam 2 Mg/Ml Inj) 0.5 mg IV Q6HR [facility]ERT[facility] Last Admin: 11/20/21 11:08 Dose: 0.5 mg Documented by: Metoclopramide HCl (Metoclopramide 5 Mg/Ml 2 Ml Vial) 10 mg IVP Q6H [facility] Last Admin: 11/20/21 11:20 Dose: 10 mg Documented by: Miscellaneous Information (Potassium Replacement Protocol 1 Each Misc) 1 each MISCELLANE DAILY PRN; Protocol PRN Reason: Per Protocol Miscellaneous Information (Magnesium Replacement Protocol 1 Each Misc) 1 each MISCELLANE DAILY PRN; Protocol PRN Reason: Per Protocol Nystatin (Nystatin 100,000 Unit/Gm Powd 15 Gm) 1 applic TOPICAL DAILY PRN; Protocol PRN Reason: Rash Ondansetron HCl (Ondansetron 4 Mg/2 Ml Vial) 4 mg IVP Q8HR PRN PRN Reason: Nausea And Vomiting Last Admin: 11/16/21 12:00 Dose: 4 mg Documented by: Pantoprazole Sodium (Pantoprazole 40 Mg/10 Ml Vial) 40 mg IVP BID [facility] Last Admin: 11/20/21 11:19 Dose: 40 mg Documented by: Scopolamine (Scopolamine 1.5mg/72hr Patch) 1 patch TRANSDERM Q72H [facility] Last Admin: 11/19/21 08:15 Dose: 1 patch Documented by: PHYSICAL EXAMINATION: GENERAL: Patient is 51-year-old male who is autistic and extubated yesterday afternoon. currently on 6L via [place] HEENT: Pupils are round and equally reacting to light. EOMI. No scleral icterus. No conjunctival pallor. Normocephalic, atraumatic. No pharyngeal erythema. No thyromegaly. NG tube noted with dark maroon blood CARDIOVASCULAR: S1 and S2 muffled PULMONARY: Diminished breath sounds bilaterally with some scattered crackles and rhonchi noted ABDOMEN: Sluggish Bowel sounds noted on exam, abdominal binder and surgical dressing, 2 EBONY drains MUSCULOSKELETAL: No joint swelling or deformity. EXTREMITIES: No cyanosis, clubbing, generalized peripheral edema noted. NEUROLOGICAL: non-verbal, following simple commands. SKIN: No rashes. Assessment: -Sepsis, present on admission secondary to ischemia of the lateral portion of the stomach and mild ischemia of the proximal jejunum -Post operative partial gastrectomy for ischemic stomach and also had ischemic ileum. -Acute blood loss anemia, status post surgery continued bleeding noted and patient also did have bloody bowel movement, acute GI bleed -Acute hypoxic respiratory failure secondary to possible aspiration with acute left lower lobe pneumonia, requiring mechanical ventilator, and reintubation 11.18.2021, patient was extubated on 11/19 and is currently on 6L [place] -Pneumoperitoneum, suspected gastric leak and section of proximal jejunum with ischemic changes status post exploratory laparotomy, drainage of upper abdominal abscess, lysis of adhesions and small bowel resection on 11/12/2021. -Septic shock status postoperatively -Anion gap metabolic acidosis secondary to lactic acidosis which improved, acidosis secondary to hyperchloremia -Acute renal failure secondary to acute blood loss from septic shock, improving -History of CVA TIA -History diabetes mellitus type 2, uncontrolled -History of hypertension -History of autism -History of intellectual impairment -GI Prophylaxis Protonix -DVT Prophylaxis Subcu heparin -NO CODE, no intubation Plan: Recommend to continue with ICU management and close monitoring. Patient is currently on 6L NC and is awake and following simple commands. Extubated yesterday afternoon. WBC is elevated and maintained on IV antibiotics and antifungals. Hemoglobin is 6.5 today with continued dark maroon stools and NG tube with dark maroon drainage. Receiving 1 unit of PRBC. Patient continues to be in critical condition with extremely guarded and overall poor prognosis. Recommend close monitoring of hemoglobin and repeat labs his kidney functions are worsening as well. Code status addressed with brother and patient is not to be reintubated again and is to be NO code. Will consider comfort measures. The impression and plan of care has been dictated by Rozina Nam, nurse practitioner as directed. Dr. Christina MD I have performed a history and physical examination and MDM of this patient, discussed the same with the dictator, and agree with the dictator's assessment and plan as written ,documented as a scribe. Based on total visit time, I have performed more than 50% of the visit. Objective - Vital Signs Vital signs: Vital Signs Temp 101.3 F H 11/20/21 08:50 Pulse 108 H 11/20/21 08:50 Resp 28 H 11/20/21 08:50 BP 149/51 11/20/21 08:50 Pulse Ox 94 L 11/20/21 08:50 Intake & Output 11/19/21 11/20/21 11/20/21 18:59 06:59 18:59 Intake Total 3148.874 6383 90 Output Total 1775 1625 60 Balance -569.328 -235 30 Intake: IV 340 450 10 Ertapenem 1 gm In Sodium 50 Chloride 0.9% 50 ml @ 100 mls/hr IVPB DAILY [facility] Rx #:[id number] Fluconazole in NaCl,Iso- 200 Osm 400 mg In Saline 1 200ml.bag @ 100 mls/hr IVPB DAILY [facility] Rx#: [id number] Mvi, Adult No.4 with Vit 400 K 10 ml Trace (Conc-1Ml/ Dose) 1 ml Potassium Acetate 40 meq Calcium Gluconate 1 gm In Amino Acid 5%-D15w 1,000 ml @ 80 mls/hr IV .BY DURATION [facility] Rx#:[id number] Sodium Chloride 0.9% 1, 90 000 ml @ 150 mls/hr IV . Q6H40M [facility] Rx#:[id number] Sodium Chloride 0.9% 1, 50 10 000 ml @ 20 mls/hr IV . Q24H [facility] Rx#:[id number] Intake, IV Titration 55.672 940 80 Amount Mvi, Adult No.4 with Vit 320 K 10 ml Trace (Conc-1Ml/ Dose) 1 ml Potassium Acetate 40 meq Calcium Gluconate 1 gm In Amino Acid 5%-D15w 1,000 ml @ 80 mls/hr IV .BY DURATION [facility] Rx#:[id number] Potassium Acetate 40 meq 560 80 Calcium Gluconate 1 gm In Amino Acid 5%-D15w 1,000 ml @ 80 mls/hr IV .BY DURATION [facility] Rx#: [id number] Sodium Chloride 0.9% 1, 60 000 ml @ 0 mls/hr IV .[facility] Rx#:[id number] propofoL 1,000 mg In 55.672 Empty Bag 1 bag @ 5 MCG/ KG/MIN 2.673 mls/hr IV . Q24H [facility] Rx#:[id number] Blood Product 810 0 Rc As-1 Unit 310 [id number] Rc As-1 Unit 0 [id number] Output: Gastric Drainage 525 Drainage 30 Left Abdomen 10 Right Abdomen 20 Urine 1220 1625 60 Other: Voiding Method Indwelling Catheter Indwelling Catheter # Bowel Movements 3 ABP, PAP, CO, CI - Last Documented Arterial Blood Pressure 147/55 - Labs CBC & Chem 7: 11/20/21 17:22 11/20/21 04:30 Labs: Abnormal Lab Results - Last 24 Hours (Table) 11/18/21 11/19/21 11/19/21 Range/Units 04:20 11:45 16:00 WBC 25.6 H (3.8-10.6) k/uL RBC 2.52 L (4.30-5.90) m/uL Hgb 7.6 L (13.0-17.5) gm/dL Hct 22.8 L (39.0-53.0) % RDW 17.4 H (11.5-15.5) % Neutrophils # (1.3-7.7) k/uL Lymphocytes # (1.0-4.8) k/uL ABG pO2 (83-108) mmHg ABG Total CO2 (19-24) mmol/L ABG O2 Saturation (94-97) % Chloride (98-107) mmol/L BUN (9-20) mg/dL Creatinine (0.66-1.25) mg/dL Glucose (74-99) mg/dL POC Glucose (mg/dL) 105 H (75-99) mg/dL Crossmatch See Detail 11/19/21 11/19/21 11/20/21 Range/Units 17:05 18:09 00:14 WBC (3.8-10.6) k/uL RBC (4.30-5.90) m/uL Hgb (13.0-17.5) gm/dL Hct (39.0-53.0) % RDW (11.5-15.5) % Neutrophils # (1.3-7.7) k/uL Lymphocytes # (1.0-4.8) k/uL ABG pO2 118 H (83-108) mmHg ABG Total CO2 26 H (19-24) mmol/L ABG O2 Saturation 98.7 H (94-97) % Chloride (98-107) mmol/L BUN (9-20) mg/dL Creatinine (0.66-1.25) mg/dL Glucose (74-99) mg/dL POC Glucose (mg/dL) 127 H 145 H (75-99) mg/dL Crossmatch 11/20/21 11/20/21 11/20/21 Range/Units 04:30 04:30 06:20 WBC 23.5 H (3.8-10.6) k/uL RBC 2.30 L (4.30-5.90) m/uL Hgb 6.5 L* (13.0-17.5) gm/dL Hct 21.0 L (39.0-53.0) % RDW 17.9 H (11.5-15.5) % Neutrophils # 21.4 H (1.3-7.7) k/uL Lymphocytes # 0.9 L (1.0-4.8) k/uL ABG pO2 (83-108) mmHg ABG Total CO2 (19-24) mmol/L ABG O2 Saturation (94-97) % Chloride 113 H (98-107) mmol/L BUN 71 H (9-20) mg/dL Creatinine 1.65 H (0.66-1.25) mg/dL Glucose 135 H (74-99) mg/dL POC Glucose (mg/dL) 133 H (75-99) mg/dL Crossmatch
[2021-11-20 23:47] LABS: Glucose,Whole Blood 147 mg/dL (75-99)
[2021-11-21] MEDS: INSULIN ASPART (NovoLOG) 100 UNIT/ML VIAL SQ SCH ×4 (00:07→18:41)
[2021-11-21] MEDS: LORazepam 2 MG/ML INJ IV SCH ×4 (00:08→18:38)
[2021-11-21] MEDS: METOCLOPRAMIDE 5 MG/ML 2 ML VIAL IVP SCH ×4 (02:16→20:15)
[2021-11-21 05:20] LABS: Calcium 9.1 mg/dL (8.4-10.2); Magnesium 2.1 mg/dL (1.6-2.3); Phosphorus 3.3 mg/dL (2.5-4.5); Potassium 3.8 mmol/L (3.5-5.1)
[2021-11-21 05:26] LABS: Anisocytosis Slight; Basophils # (A) 0.1 k/uL (0-0.2); Basophils % (A) 0 %; Eosinophils # (A) 0.2 k/uL (0-0.7); Eosinophils % (A) 1 %; HCT 20.7 % (39.0-53.0); Hypochromasia Moderate; Lymphocytes # (A) 1.2 k/uL (1.0-4.8); Lymphocytes % (A) 6 %; MCH 28.1 pg (25.0-35.0); MCHC 31.4 g/dL (31.0-37.0); MCV 89.4 fL (80.0-100.0); Mean Platelet Volume 8.7; Monocytes # (A) 0.7 k/uL (0-1.0); Monocytes % (A) 3 %; Neutrophils # (A) 18.2 k/uL (1.3-7.7); Neutrophils % (A) 88 %; Platelet Count 431 k/uL (150-450); Poikilocytosis Slight; RBC 2.31 m/uL (4.30-5.90); RDW 18.4 % (11.5-15.5); WBC 20.6 k/uL (3.8-10.6)
[2021-11-21 05:31] LABS: Glucose,Whole Blood 132 mg/dL (75-99)
[2021-11-21] MEDS: CALCIUM CHLORIDE IV SCH ×15 (05:33→19:00)
[2021-11-21] MEDS: AMINO ACID 5% IV SCH ×15 (05:33→19:00)
[2021-11-21] MEDS: [UNRECOGNIZED DRUG - OTHER] IV SCH ×15 (05:33→19:00)
[2021-11-21] MEDS: POTASSIUM ACETATE IV SCH ×15 (05:33→19:00)
[2021-11-21 05:34] LABS: HGB 6.5 gm/dL (13.0-17.5)
[2021-11-21] MEDS: NOREPINEPHRINE 8 MG in SODIUM CHLORIDE 0.9% 250 ML IV SCH (06:17)
[2021-11-21] MEDS: POTASSIUM CHLORIDE 10 MEQ in WATER FOR INJECTION 1 100ML.BAG IVPB SCH ×2 (06:41→08:17)
[2021-11-21] MEDS: IPRATROPIUM-ALBUTEROL 3 ML NEB INHALATION SCH ×3 (07:24→20:28)
[2021-11-21] MEDS: PANTOPRAZOLE 40 MG/10 ML VIAL IVP SCH ×2 (08:13→20:15)
[2021-11-21] MEDS: FUROSEMIDE 10 MG/ML 4 ML VIAL IV SCH ×2 (08:14→20:15)
[2021-11-21] MEDS: FLUCONAZOLE IN NACL,ISO-OSM 400 MG in SALINE 1 200ML.BAG IVPB SCH (08:14)
[2021-11-21] MEDS: ERTAPENEM 1 GM in SODIUM CHLORIDE 0.9% 50 ML IVPB SCH (08:14)
--- NOTE | 2021-11-21 09:38 | XR ---
EXAMINATION TYPE: XR chest 1V portable DATE OF EXAM: 11/21/2021 COMPARISON: 11/20/2021 HISTORY: Tube placement TECHNIQUE: Single frontal view of the chest is obtained. FINDINGS: NG tube in good position and stable within the gastric body. Bilateral infiltrate and pleu ral effusion seen cardiomegaly. No pneumothorax. Underlying COPD suspected. Left-sided PICC line. Hyp ertrophic and degenerative change of the spine. IMPRESSION: Stable bilateral infiltrate and pleural effusion. Correlate for CHF versus diffuse pneum onia
[2021-11-21] MEDS ORDERED: DEXTROSE 5% IN WATER 1,000 ML IV ONE (09:43)
--- NOTE | 2021-11-21 11:13 | P.CONS ---
History of Present Illness - Reason for Consult Consult date: 11/21/21 wound care - History of Present Illness 51-year-old patient being seen in ICU for a nonhealing ulceration to the anterior aspect of the penile shaft. Patient was unable to answer any questions. The ulceration measures approximately 2 x 2.5 x 0.2 cm with significant amount of slough and nonviable tissue within the wound bed. There is no granulation noted to the wound bed. The wound edges are attached to the wound base. No tunneling or undermining noted. Patient's past medical history significant for ABDs, hypertension, CVA, intellectual impairment. Review Of Systems: Constitutional: No fever, no chills, no night sweats. No weight change. No weakness, fatigue or lethargy. No daytime sleepiness. Integumentary:reports wounds, no lesions. No rash or pruritus. No unusual bruising. No change in hair or nails. Physical exam: General Appearance: Alert, cooperative, no distress, appears stated age. Skin: See HPI all other Skin color, texture, tugor normal, no rashes or lesions. Neurologic: Alert oriented x3 Assessment: 1. Nonhealing ulceration with fat layer exposure to anterior aspect of penis. 2. Diabetes a skin ulceration Plan: 1. Apply triad to the site change daily. May cover with a dressing as needed. Thank you for the consultation any questions please contact the wound care center . DNP note has been reviewed and discussed with Dr. Barrientos and the impression and plan of care has been directed as dictated. Past Medical History Past Medical History: CVA/TIA, Diabetes Mellitus, Hypertension Additional Past Medical History / Comment(s): Pt recently admitted to [facility] on 02/20/20 with R intrinsic hand muscle weakness/possible L vertebral artery stenosis/thrombocytopenia. Other hx: Diet controlled diabetes, autism, intellectual impairment History of Any Multi-Drug Resistant Organisms: None Reported Past Surgical History: No Surgical Hx Reported Additional Past Surgical History / Comment(s): BROTHER STATED NO KNOWN SX Past Anesthesia/Blood Transfusion Reactions: Unable to Obtain Additional Past Anesthesia/Blood Transfusion Reaction / Comm: NEVER HAD ANY SX Past Psychological History: No Psychological Hx Reported Smoking Status: Never smoker Past Alcohol Use History: None Reported Past Drug Use History: None Reported - Past Family History Father Family Medical History: Cancer Additional Family Medical History / Comment(s): COLON CANCER Mother Family Medical History: Cancer, Diabetes Mellitus, Hypertension Additional Family Medical History / Comment(s): OBESITY, FROM METASTATIC KINDEY CANCER Medications and Allergies Home Medications Medication Instructions Recorded Confirmed Type ARIPiprazole 15 mg PO BID@0700,199907/29/18 10/29/21 History Benztropine Mesylate [Cogentin] 0.5 mg PO TID@0700,1200,199907/29/18 10/29/21 History Citalopram Hydrobromide [CeleXA] 40 mg PO DAILY@0700 07/29/18 10/29/21 History Enalapril [Vasotec] 5 mg PO DAILY@0700 07/29/18 10/29/21 History LORazepam [Ativan] 1 mg PO TID@0700,1200,199907/29/18 10/29/21 History cloZAPine [Clozaril] 100 mg PO BID@0700,1600 02/20/20 10/29/21 History Aspirin EC [Ecotrin Low Dose] 81 mg PO DAILY@0700 07/31/21 10/29/21 History Atorvastatin Calcium [Lipitor] 10 mg PO HS@199907/31/21 10/29/21 History Carbidopa-Levodopa 10-100 mg 1 tab PO TID@0700,1600,199907/31/21 10/29/21 History [Sinemet 10-100 mg] Melatonin 10 mg PO HS@199907/31/21 10/29/21 History Oxybutynin Chloride [Ditropan] 5 mg PO TID@0700,1600,199907/31/21 10/29/21 History Pregabalin [Lyrica] 75 mg PO DAILY@0700 07/31/21 10/29/21 History Primidone [Mysoline] 50 mg PO DAILY@0700 07/31/21 10/29/21 History Cholecalciferol [Vitamin D3 (25 50 mcg PO DAILY@69910/29/21 10/29/21 History Mcg = 1000 Iu)] Hydrocortisone Cream 1 applic TOPICAL BID@0700,199910/29/21 10/29/21 History [Hydrocortisone 2.5% Cream] LORazepam [Ativan] 2 mg PO DAILY PRN 10/29/21 10/29/21 History Nystatin [Nystop] 1 applic TOPICAL DAILY PRN 10/29/21 10/29/21 History Allergies Allergy/AdvReac Type Severity Reaction Status Date / Time No Known Allergies Allergy Verified 10/29/21 08:18 Physical Exam Vitals: Vital Signs Temp Pulse Resp BP Pulse Ox 11/21/21 08:00 98.2 F 84 9 L 145/89 97 11/21/21 07:33 105 H 11/21/21 07:24 99 11/21/21 07:00 106 H 29 H 145/89 96 11/21/21 06:30 101 H 30 H 158/87 94 L 11/21/21 06:00 93 30 H 158/87 96 11/21/21 05:30 102 H 22 147/78 93 L 11/21/21 05:00 95 20 147/78 96 11/21/21 04:30 101 H 24 146/88 98 11/21/21 04:00 100.6 F H 106 H 12 146/86 99 11/21/21 03:30 103 H 15 146/86 98 11/21/21 03:00 101 H 25 H 144/80 97 11/21/21 02:30 99 26 H 97 11/21/21 02:00 99 27 H 140/82 96 11/21/21 01:30 101 H 29 H 143/83 95 11/21/21 01:00 99 24 145/81 96 11/21/21 00:30 101 H 25 H 150/85 11/21/21 00:00 100.0 F H 87 22 150/85 98 11/20/21 23:30 104 H 24 144/82 98 11/20/21 23:00 100 7 L 152/83 97 11/20/21 22:30 94 12 149/82 99 11/20/21 22:00 97 10 L 148/96 97 11/20/21 21:30 106 H 27 H 141/87 97 11/20/21 21:00 106 H 16 137/77 99 11/20/21 20:30 97 0 L 155/84 97 11/20/21 20:25 109 H 11/20/21 20:16 95 11/20/21 20:15 108 H 11/20/21 20:00 99.1 F 112 H 30 H 155/84 93 L 11/20/21 19:30 100 33 H 134/72 95 11/20/21 19:00 101 H 30 H 138/71 94 L 11/20/21 18:30 79 5 L 133/71 96 11/20/21 18:00 105 H 7 L 132/75 94 L 11/20/21 17:30 101 H 25 H 140/86 93 L 11/20/21 17:00 100 16 138/80 98 11/20/21 16:30 99.4 F 102 H 24 138/78 96 11/20/21 16:00 105 H 23 137/81 97 11/20/21 15:30 103 H 26 H 138/81 97 11/20/21 15:00 103 H 27 H 141/76 96 11/20/21 14:52 98 11/20/21 14:45 99 11/20/21 14:30 101 H 24 139/76 95 11/20/21 14:00 98 0 L 129/78 96 11/20/21 13:30 102 H 20 139/75 94 L 11/20/21 13:00 104 H 23 139/74 96 11/20/21 12:30 104 H 20 139/72 97 11/20/21 12:00 98.0 F 105 H 25 H 136/77 100 11/20/21 11:30 100.8 F H 100 12 136/79 98 11/20/21 11:20 105 H 23 136/79 97 11/20/21 11:10 105 H 17 186/108 98 Intake and Output 11/20/21 11/21/21 11/21/21 22:59 06:59 14:59 Intake Total 329 1697.3 549 Output Total 1560 1050 375 Balance -1231 647.3 174 Intake: IV 329 674 399 Ertapenem 1 gm In Sodium 50 Chloride 0.9% 50 ml @ 100 mls/hr IVPB DAILY [facility] Rx #:[id number] Fluconazole in NaCl,Iso- 100 Osm 400 mg In Saline 1 200ml.bag @ 100 mls/hr IVPB DAILY [facility] Rx#: [id number] Pressure Bag 9 24 9 Sodium Chloride 0.9% 1, 80 10 000 ml @ 20 mls/hr IV . Q24H [facility] Rx#:[id number] TPN 240 640 240 Intake, IV Titration 1023.3 150 Amount Ertapenem 1 gm In Sodium 50 Chloride 0.9% 50 ml @ 100 mls/hr IVPB DAILY [facility] Rx #:[id number] Fluconazole in NaCl,Iso- 100 Osm 400 mg In Saline 1 200ml.bag @ 100 mls/hr IVPB DAILY [facility] Rx#: [id number] Potassium Acetate 40 meq 1023.3 Calcium Chloride 0.33 gm In Amino Acid 5%-D15w 1, 000 ml @ 80 mls/hr IV .BY DURATION [facility] Rx#: [id number] Blood Product 0 Rc Cpda-1 Unit 0 [id number] Output: Drainage 50 Left Abdomen 50 Urine 1560 1000 375 Other: Voiding Method Indwelling Catheter Indwelling Catheter Indwelling Catheter Weight 80.8 kg Results CBC & Chem 7: 11/21/21 04:55 11/21/21 04:55 Labs: Abnormal Lab Results - Last 24 Hours (Table) 11/18/21 11/20/21 11/20/21 Range/Units 04:20 11:29 17:22 WBC 22.2 H (3.8-10.6) k/uL RBC 2.56 L (4.30-5.90) m/uL Hgb 7.3 L (13.0-17.5) gm/dL Hct 23.2 L (39.0-53.0) % RDW 17.8 H (11.5-15.5) % Neutrophils # 19.5 H (1.3-7.7) k/uL Sodium (137-145) mmol/L Chloride (98-107) mmol/L BUN (9-20) mg/dL Creatinine (0.66-1.25) mg/dL Glucose (74-99) mg/dL POC Glucose (mg/dL) 119 H (75-99) mg/dL Crossmatch See Detail 11/20/21 11/20/21 11/21/21 Range/Units 18:04 23:46 04:55 WBC (3.8-10.6) k/uL RBC (4.30-5.90) m/uL Hgb (13.0-17.5) gm/dL Hct (39.0-53.0) % RDW (11.5-15.5) % Neutrophils # (1.3-7.7) k/uL Sodium 146 H (137-145) mmol/L Chloride 116 H (98-107) mmol/L BUN 69 H (9-20) mg/dL Creatinine 1.40 H (0.66-1.25) mg/dL Glucose 124 H (74-99) mg/dL POC Glucose (mg/dL) 125 H 147 H (75-99) mg/dL Crossmatch 11/21/21 11/21/21 11/21/21 Range/Units 04:55 05:30 06:18 WBC 20.6 H (3.8-10.6) k/uL RBC 2.31 L (4.30-5.90) m/uL Hgb 6.5 L* (13.0-17.5) gm/dL Hct 20.7 L (39.0-53.0) % RDW 18.4 H (11.5-15.5) % Neutrophils # 18.2 H (1.3-7.7) k/uL Sodium (137-145) mmol/L Chloride (98-107) mmol/L BUN (9-20) mg/dL Creatinine (0.66-1.25) mg/dL Glucose (74-99) mg/dL POC Glucose (mg/dL) 132 H (75-99) mg/dL Crossmatch See Detail Assessment and Plan (1) Non-pressure chronic ulcer of skin of other sites with fat layer exposed Current Visit: Yes Status: Acute Code(s): L98.492 - NON-PRS CHRONIC ULCER OF SKIN OF SITES W FAT LAYER EXPOSED SNOMED Code(s): 04401966 (2) Type 2 diabetes mellitus with other skin ulcer Current Visit: Yes Status: Acute Code(s): E11.622 - TYPE 2 DIABETES MELLITUS WITH OTHER SKIN ULCER; L98.499 - NON-PRESSURE CHRONIC ULCER OF SKIN OF SITES W UNSP SEVERITY SNOMED Code(s): 039693426
--- NOTE | 2021-11-21 11:17 | P.PN ---
Subjective Progress Note Date: 11/21/21 Principal diagnosis: Abdominal sepsis and septic shock. 11/17/2021, patient is extubated. Noted the patient was extubated successfully yesterday. Post extubation, he became slightly anxious and restless. Based on that, the patient was placed on Precedex which is still running at a dose of 0.4 mcg/kg per minute. Nevertheless, the patient survives extubation and the patient is currently on 6 L O2 nasal cannula and his history quite comfortable. At times, he is still tachypneic. . His cough is weak. He is able to clear his upper or secretions. NG tube is in place. Output has dropped since yesterday and the patient has put out approximately 250 mL of gastric material over the past 12 hours. NG tube remains in place. The patient receiving TPN for nutritional support at the rate of 80 mL an hour and the patient's fluid balance has been negative thallium and 99 mL over the past 24 hours. Noted the patient's white cell count is at 18 with a hemoglobin of 7.1. Sodium is at 137, bicarbonate 24, creatinine is at 1.5 and the patient's abdominal fluid cultures came back positive for E. coli that was resistant to Zosyn. He also has Cortney albicans. No other significant events otherwise for now. He is hemodynamically stable on no pressors. EBONY drains are in place with minimal amount of output at this point in time. He seems to be clinically anxious. No agitation at this point in time. Patient was reevaluated today on 11/18/2021, patient remains in the ICU, intubated and mechanically ventilated. He is on assist control rate of 26, volume 400 FiO2 60% and I cut it down to 50% PEEP is at 5. ABG earlier showed a pO2 of 303 pCO2 47 pH of 7.33 and this was done on on the percent FiO2. Patient remains on norepinephrine at 0.2 mcg/kg/m, he is on propofol at 25 mcg/kg/m. TPN at 80 mL per hour. He is receiving his second unit of packed RBCs this m orn, and he is on IV fluid at 10 mL per hour. Patient is sedated, his peak airway pressure is 19 plateau pressure is 21. Continues to have EBONY drains 2, and he has retention sutures. There is minimal output from his EBONY drains. Patient remains on Invanz and on Diflucan. Cultures from the EBONY d rains/abdominal fluid were positive for Cortney and for E. coli. Bronchial washing cultures positive for Cortney. Patient continues to have leukocytosis with WBC count of 45.9 hemoglobin is 5.7 this morning, and he is receiving.'s of packed RBCs this morning. Chest x-ray continues to show by basilar airspace disease/infiltrates. Highly suspicious for aspiration pneumonia. Reevaluated today on 11/20/2021, patient is now off mechanical ventilation, he was extubated yesterday, and so far he tolerated the extubation quite well. Patient is laying in bed, on 6 L nasal cannula and O2 sats 95%. He is receiving TPN at 80 mL/h, IV fluid at KVO, he is receiving today a unit of packed RBCs for hemoglobin of 6.5 this morning. Patient is nonverbal, but seems to follow very simple instructions like wiggling toes, closing eyes, and squeezing hands. Patient remains on antibiotics, remains on TPN, and I have no plans to transfer the patient out of the ICU. He is not requiring any pressors at this point, but intermittently required a blood transfusion for low hemoglobin. Patient may have ongoing oozing from his surgery, and that is to be addressed by surgery on the case. In the meantime he is also requiring antibiotics, being followed by infectious disease on the case. Chest x-ray today showed small bilateral pleural effusions left more so than right, and some patchy opacities in both lungs bilaterally especially at the base. Reevaluated today on 11/17/2021, patient remains in the ICU, remains off mechanical ventilation, unfortunately the patient continues to require blood transfusion, today he is on his stents units of blood hemoglobin this morning was 6.5. Patient remains on 6 L high flow nasal cannula. Remains on TPN. Remains on antibiotics and antifungal therapy. Chest x-ray is suggestive of left lower lobe atelectasis and possibly a pleural effusion. However the pa tiefady is not in any respiratory distress. Urine output is marginal, IV fluid was added today D5 W at 75 mL/h as his sodium seems to be climbing up a bit up to 146 today. Patient remains nonverbal, he is lethargic, has been following instructions/simple instructions intermittently. WBC count today is 20.6 hemoglobin is 6.5 electrolytes are normal BUN is 69 creatinine 1.40, improving. Objective - Vital Signs Vital signs: Vital Signs Temp 98.2 F 11/21/21 08:00 Pulse 85 11/21/21 11:00 Resp 0 L 11/21/21 11:00 BP 129/73 11/21/21 11:00 Pulse Ox 97 11/21/21 11:00 Intake & Output 11/20/21 11/21/21 11/21/21 18:59 06:59 18:59 Intake Total 1933.3 1986.3 549 Output Total 3194 2100 375 Balance -1260.7 -113.7 174 Weight 89.2 kg 80.8 kg Intake: IV 120 963 399 Ertapenem 1 gm In Sodium 50 Chloride 0.9% 50 ml @ 100 mls/hr IVPB DAILY [facility] Rx #:[id number] Fluconazole in NaCl,Iso- 100 Osm 400 mg In Saline 1 200ml.bag @ 100 mls/hr IVPB DAILY [facility] Rx#: [id number] Pressure Bag 33 9 Sodium Chloride 0.9% 1, 120 50 000 ml @ 20 mls/hr IV . Q24H [facility] Rx#:[id number] TPN 880 240 Intake, IV Titration 1503.3 1023.3 150 Amount Ertapenem 1 gm In Sodium 50 Chloride 0.9% 50 ml @ 100 mls/hr IVPB DAILY [facility] Rx #:[id number] Fluconazole in NaCl,Iso- 100 Osm 400 mg In Saline 1 200ml.bag @ 100 mls/hr IVPB DAILY [facility] Rx#: [id number] Potassium Acetate 40 meq 1023.3 1023.3 Calcium Chloride 0.33 gm In Amino Acid 5%-D15w 1, 000 ml @ 80 mls/hr IV .BY DURATION [facility] Rx#: [id number] Potassium Acetate 40 meq 480 Calcium Gluconate 1 gm In Amino Acid 5%-D15w 1,000 ml @ 80 mls/hr IV .BY DURATION [facility] Rx#: [id number] Blood Product 310 0 Rc As-1 Unit 310 [id number] Rc Cpda-1 Unit 0 [id number] Output: Drainage 50 Left Abdomen 50 Urine 3194 2050 375 Other: Voiding Method Indwelling Catheter Indwelling Catheter Indwelling Catheter ABP, PAP, CO, CI - Last Documented Arterial Blood Pressure 206/64 - Exam Physical Exam: Revealed 51-year-old white male , in no distress, on 6 L nasal cannula. O2 sats is 95% Head: Atraumatic, normocephalic. HEENT: PERRLA, EOMI, nonicteric, no neck masses, no JVD, Chest: Symmetrical chest expansion, crackles at the bases. Cardiac Exam: [Normal S1 and S2, no S3 gallop, no murmur.] Abdomen: Soft, abdominal dressing is in place, EBONY drains noted. Nontender abdomen. Soft. Diminished bowel sounds. Extremities: [No clubbing, trace of edema, no cyanosis, diminished distal pulses bilaterally.. Neurological Exam: Patient is awake, follows very simple instructions, nonverbal. Psychiatric: Blunted mood and affect, follows only simple instructions, heart assessment mental status - Labs CBC & Chem 7: 11/21/21 04:55 11/21/21 04:55 Labs: Abnormal Lab Results - Last 24 Hours (Table) 11/18/21 11/20/21 11/20/21 Range/Units 04:20 11:29 17:22 WBC 22.2 H (3.8-10.6) k/uL RBC 2.56 L (4.30-5.90) m/uL Hgb 7.3 L (13.0-17.5) gm/dL Hct 23.2 L (39.0-53.0) % RDW 17.8 H (11.5-15.5) % Neutrophils # 19.5 H (1.3-7.7) k/uL Sodium (137-145) mmol/L Chloride (98-107) mmol/L BUN (9-20) mg/dL Creatinine (0.66-1.25) mg/dL Glucose (74-99) mg/dL POC Glucose (mg/dL) 119 H (75-99) mg/dL Crossmatch See Detail 11/20/21 11/20/21 11/21/21 Range/Units 18:04 23:46 04:55 WBC (3.8-10.6) k/uL RBC (4.30-5.90) m/uL Hgb (13.0-17.5) gm/dL Hct (39.0-53.0) % RDW (11.5-15.5) % Neutrophils # (1.3-7.7) k/uL Sodium 146 H (137-145) mmol/L Chloride 116 H (98-107) mmol/L BUN 69 H (9-20) mg/dL Creatinine 1.40 H (0.66-1.25) mg/dL Glucose 124 H (74-99) mg/dL POC Glucose (mg/dL) 125 H 147 H (75-99) mg/dL Crossmatch 11/21/21 11/21/21 11/21/21 Range/Units 04:55 05:30 06:18 WBC 20.6 H (3.8-10.6) k/uL RBC 2.31 L (4.30-5.90) m/uL Hgb 6.5 L* (13.0-17.5) gm/dL Hct 20.7 L (39.0-53.0) % RDW 18.4 H (11.5-15.5) % Neutrophils # 18.2 H (1.3-7.7) k/uL Sodium (137-145) mmol/L Chloride (98-107) mmol/L BUN (9-20) mg/dL Creatinine (0.66-1.25) mg/dL Glucose (74-99) mg/dL POC Glucose (mg/dL) 132 H (75-99) mg/dL Crossmatch See Detail Assessment and Plan Assessment: Impression: Acute hypoxic respiratory failure secondary to sepsis, abdominal sepsis, septic shock, and suspect aspiration pneumonia. 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 Patient was extubated again on 11/19/2021, seems to tolerate extubation well so far Acute lactic acidosis secondary to sepsis and septic shock. Acute kidney injury secondary to sepsis/septic shock. Type 2 diabetes. History of developmental delay and autism. Acute blood loss anemia requiring transfusion, patient continues to require transfusions, so far he required 9 units of packed RBCs and he is receiving 1 today. Recommendation: Patient was extubated 2 days ago, and his CODE STATUS is DO NOT RESUSCITATE, not to be reintubated if he fails.. Continue to monitor in the ICU Continue antibiotics and antifungal therapy. Continue nutritional support./TPN. Continue GI and DVT prophylaxis. Transfuse accordingly maintain hemoglobin above 7 Continue to monitor output and input. Continue to monitor abdominal wounds Continue aspiration precautions Continue to monitor renal status, improving. Overall prognosis remains extremely poor and guarded. Patient remains critically ill. Critical care time is over 30 minutes Time with Patient: Greater than 30
[2021-11-21 11:42] LABS: Glucose,Whole Blood 129 mg/dL (75-99)
--- NOTE | 2021-11-21 11:50 | P.PN ---
Subjective Progress Note Date: 11/21/21 CHIEF COMPLAINT: Abdominal pain HISTORY OF PRESENT ILLNES: Patient in the ICU. He remains off of mechanical ventilation. Currently on 6 L high flow nasal cannula. Patient still having dark bile and reddish output should the NG tube. EBONY drain on the left 50ml old serosanguineous output and on the right very minimal old blood output. Patient continues to have maroon black stools. He had 2 stools last night and one this morning. Patient is more lethargic today. He did have a temp of 100.6 heart rate of 105 white count is down from 20-20.6 hemoglobin is down from 7.3-6.5 and he is receiving another unit of blood. His received a total of 9 units of blood during his admission. PHYSICAL EXAM: VITAL SIGNS: Reviewed. GENERAL: Patient is awake and tracking with his eyes HEENT: Moist buccal mucosa. Head is atraumatic, normocephalic. ABDOMEN: Soft. Nondistended. Incisional dressing clean dry and intact. Incision site is open dressing has some small amount of serosanguineous drainage noted. Patient has retention sutures in place. ASSESSMENT: 1. Pneumoperitoneum, suspected gastric leak and section of proximal jejunum with ischemic changes status post exploratory laparotomy, drainage of upper abdominal abscess, lysis of adhesions and small bowel resection on 11/12/21 2. Ischemia of the lateral portion of the stomach and mild ischemia of the proximal jejunum status post exploratory laparotomy and partial gastrectomy on 10/30/21 3. Septic shock 4. Postoperative ileus 5. Thrombocytopenia resolved 6. Pneumonia 7. Anemia PLAN: -Continue ICU management -Continue supportive care -Patient scheduled for another blood transfusion today -Continue to monitor hemoglobin -Continue NG tube for decompression -Continue to monitor EBONY drain output -Keep patient nothing by mouth -Continue antibiotics -Continue TPN for nutrition support -CODE STATUS DO NOT RESUSCITATE/DO NOT INTUBATE Physician Gold Cutter note has been reviewed by physician. Signing provider agrees with the documented findings, assessment, and plan of care. I have personally seen and examined the patient, reviewed the [employer] /PAs history, exam and MDM and agree with the assessment and plan as written. Based on total visit time, I have performed more than 50% of the visit. As above: Patient was alert today. Still having some bloody stools. Nasogastric tube likewise with some blood mixed with bile present. EBONY drain output decreased. Continue antibiotics and supportive care. Continue discussing extent of care options with family. Objective - Vital Signs Vital signs: Vital Signs Temp 98.2 F 11/21/21 08:00 Pulse 85 11/21/21 11:00 Resp 0 L 11/21/21 11:00 BP 129/73 11/21/21 11:00 Pulse Ox 97 11/21/21 11:00 Intake & Output 11/20/21 11/21/21 11/21/21 18:59 06:59 18:59 Intake Total 1933.3 1986.3 715 Output Total 3194 2100 550 Balance -1260.7 -113.7 165 Weight 89.2 kg 80.8 kg Intake: IV 120 963 565 Ertapenem 1 gm In Sodium 50 Chloride 0.9% 50 ml @ 100 mls/hr IVPB DAILY [facility] Rx #:[id number] Fluconazole in NaCl,Iso- 100 Osm 400 mg In Saline 1 200ml.bag @ 100 mls/hr IVPB DAILY [facility] Rx#: [id number] Pressure Bag 33 15 Sodium Chloride 0.9% 1, 120 50 000 ml @ 20 mls/hr IV . Q24H [facility] Rx#:[id number] TPN 880 400 Intake, IV Titration 1503.3 1023.3 150 Amount Ertapenem 1 gm In Sodium 50 Chloride 0.9% 50 ml @ 100 mls/hr IVPB DAILY [facility] Rx #:[id number] Fluconazole in NaCl,Iso- 100 Osm 400 mg In Saline 1 200ml.bag @ 100 mls/hr IVPB DAILY [facility] Rx#: [id number] Potassium Acetate 40 meq 1023.3 1023.3 Calcium Chloride 0.33 gm In Amino Acid 5%-D15w 1, 000 ml @ 80 mls/hr IV .BY DURATION [facility] Rx#: [id number] Potassium Acetate 40 meq 480 Calcium Gluconate 1 gm In Amino Acid 5%-D15w 1,000 ml @ 80 mls/hr IV .BY DURATION [facility] Rx#: [id number] Blood Product 310 0 Rc As-1 Unit 310 [id number] Rc Cpda-1 Unit 0 [id number] Output: Drainage 50 Left Abdomen 50 Urine 3194 2050 550 Other: Voiding Method Indwelling Catheter Indwelling Catheter Indwelling Catheter ABP, PAP, CO, CI - Last Documented Arterial Blood Pressure 206/64 - Labs CBC & Chem 7: 11/21/21 04:55 11/21/21 04:55 Labs: Abnormal Lab Results - Last 24 Hours (Table) 11/18/21 11/20/21 11/20/21 Range/Units 04:20 17:22 18:04 WBC 22.2 H (3.8-10.6) k/uL RBC 2.56 L (4.30-5.90) m/uL Hgb 7.3 L (13.0-17.5) gm/dL Hct 23.2 L (39.0-53.0) % RDW 17.8 H (11.5-15.5) % Neutrophils # 19.5 H (1.3-7.7) k/uL Sodium (137-145) mmol/L Chloride (98-107) mmol/L BUN (9-20) mg/dL Creatinine (0.66-1.25) mg/dL Glucose (74-99) mg/dL POC Glucose (mg/dL) 125 H (75-99) mg/dL Crossmatch See Detail 11/20/21 11/21/21 11/21/21 Range/Units 23:46 04:55 04:55 WBC 20.6 H (3.8-10.6) k/uL RBC 2.31 L (4.30-5.90) m/uL Hgb 6.5 L* (13.0-17.5) gm/dL Hct 20.7 L (39.0-53.0) % RDW 18.4 H (11.5-15.5) % Neutrophils # 18.2 H (1.3-7.7) k/uL Sodium 146 H (137-145) mmol/L Chloride 116 H (98-107) mmol/L BUN 69 H (9-20) mg/dL Creatinine 1.40 H (0.66-1.25) mg/dL Glucose 124 H (74-99) mg/dL POC Glucose (mg/dL) 147 H (75-99) mg/dL Crossmatch 11/21/21 11/21/21 Range/Units 05:30 06:18 WBC (3.8-10.6) k/uL RBC (4.30-5.90) m/uL Hgb (13.0-17.5) gm/dL Hct (39.0-53.0) % RDW (11.5-15.5) % Neutrophils # (1.3-7.7) k/uL Sodium (137-145) mmol/L Chloride (98-107) mmol/L BUN (9-20) mg/dL Creatinine (0.66-1.25) mg/dL Glucose (74-99) mg/dL POC Glucose (mg/dL) 132 H (75-99) mg/dL Crossmatch See Detail
[2021-11-21] MEDS: HYDROPHILIC CREAM 180 GM TUBE TOPICAL SCH (16:03)
[2021-11-21 17:37] LABS: Glucose,Whole Blood 150 mg/dL (75-99)
--- NOTE | 2021-11-21 20:11 | P.PN ---
Subjective From the records, patient could not provide information Patient was admitted for nausea vomiting diarrhea believed to have gastroenteritis. Patient continued to have vomiting and started having abdominal tenderness because of which CT of the abdomen was obtained which showed pneumatosis coli along with some gas in the venous system concern for is chemic bowel. Patient was started on Zosyn. Patient subsequently decompensated patient became hypotensive with BP of 60/40 transferred to ICU patient was given 3 L of boluses of IV fluid NG tube was placed which showed bloody output . Patient in septic shock and receiving norepinephrine at this time. Recent echo showed normal ejection fraction. Patient had CTA of the chest which was negative for pulmonary embolism patient creatinine has worsened and went up to 2.80 today from 1.14 yesterday and this is secondary to acute tubular necrosis from sepsis and septic shock. Patient does have lactic acidosis, patient does have lactic acidosis with lactic acidosis 7.5. Patient will be given 1 L of IV fluids continue pressor support. he is intubated and sedated. 10/31/2021 Patient is started having urine output. Patient underwent a arthrotomy yesterday and found to have ischemia of the lateral portion of the stomach and ischemia of the proximal jejunum patient underwent partial gastrectomy. Patient is presently on that to pressors maximized on norepinephrine, patient is also on vasopressin receiving albumin, IV fluids started having minimal urine output patient was anuric last night. Patient's chloride is highly elevated leading to metabolic acidosis patient also has an anion gap metabolic acidosis from lactic acidosis which appears to be improving at this time patient's overall clinical condition is guarded and the prognosis is poor. Patient Y blood cell count went down in fact patient is neutropenic now. Patient is presently not receiving any nutrition at this time. 11/18/2021 Patient is seen and evaluated in follow up this morning and continues to be in the ICU and was reintubated again this morning. Chest xray shows CHF and pleural effusions as previously noted. No evidence of pneumothorax. Patient continues with an FI02 of 50% and peep is 5. Patient continues on sedation. Patient to continue with IV antibiotics and also antifungals. WBC is elevated. Per nursing staff, hemoglobin is 5.9 and bleeding from NG tube. Patient to receive 2 units of PRBC. 11/19/2021 Patient is seen in follow-up this morning closely monitored with multiple medical consultations following. Patient continues on mechanical vent with an FiO2 of 35% and PEEP is 5. Patient's hemoglobin is 6.7 today and continues with bleeding noted in the NG tube. Patient is to receive another unit of PRBCs and will continue to monitor hemoglobin and bleeding closely. Weaning parameters are continuously being assessed and possible extubation in the next day or so per pulmonary. Brother at the bedside and is agreeable with no CODE STATUS and no further intubations as patient has been also intubated multiple times this admission and continues to deteriorate. Chest x-ray today shows persistent bilateral infiltrates with pleural effusions greater on the left and correlate for pneumonia versus CHF. Kidney functions slightly worsening as well and trending up. WBC continues to be elevated and patient is maintained on IV antibiotics. 11/20/2021 Patient is seen in follow-up today continues to be in the ICU with multiple medical consultations following. Patient was recently extubated yesterday and currently maintained on 6 L nasal cannula. patient continues to have GI bleeding with NG tube noted to have bleeding along with dark maroon stools noted. Hemoglobin is 6.5 today and will be receiving a unit of PRBC. WBC remains elevated and continues on IV antibiotics. Patient is nonverbal but follows simple commands. Continues to be in critical condition. To continue with NG tube and TPN for now. Surgery following as well. Today note 11/21/2021 Patient with past medical history of developmental delay living in a long-term presents to the hospital on 10/29 from his long-term after a fall and suspected syncope. On admission he was AAO 1. Patient has prolonged hospitalization since then for more than 3 weeks. Today is lying in the bed in the ICU, unresponsive and does not follow command and does not answer questions. He is been followed by several consultants including neurologist, film inspector/critical care team and surgery team. He is a status post exploratory laparotomy and surgical resection of part of the stomach and proximal jejunum secondary to ischemic changes and drainage of the adjacent abscess. He has evidence of persistent bilateral pneumonia and kept on Invanz and fluconazole with body fluid culture showing E. coli and Cortney and chest x-ray showing evidence of bilateral infiltrates read also seen on CT of the abdomen, pelvis and chest without contrast: Bilateral pulmonary consolidation and bilateral pleural effusion. He had negative CT of the brain and ejection fraction 60-65%. His receiving TPN and on Lasix 40 mg twice daily. Labs showing leukocytosis of 20, hemoglobin 6.5, sodium 146, creatinine 1.4 with evidence mostly indicating chronic kidney disease stage III. Also history of chronic fever of 100.6 and saturating low 90s on 4 L/m of oxygen. Objective - Vital Signs Vital signs: Vital Signs Temp 99.3 F 11/21/21 16:00 Pulse 87 11/21/21 19:00 Resp 12 11/21/21 19:00 BP 142/77 11/21/21 19:00 Pulse Ox 95 11/21/21 19:00 Intake & Output 11/21/21 11/21/21 11/22/21 06:59 18:59 06:59 Intake Total 1986.3 3154.3 158 Output Total 2100 1340 75 Balance -113.7 1814.3 83 Weight 80.8 kg Intake: IV 963 1146 83 Ertapenem 1 gm In Sodium 50 Chloride 0.9% 50 ml @ 100 mls/hr IVPB DAILY [facility] Rx #:[id number] Fluconazole in NaCl,Iso- 100 Osm 400 mg In Saline 1 200ml.bag @ 100 mls/hr IVPB DAILY [facility] Rx#: [id number] Pressure Bag 33 36 3 Sodium Chloride 0.9% 1, 50 000 ml @ 20 mls/hr IV . Q24H [facility] Rx#:[id number] TPN 880 960 80 Intake, IV Titration 1023.3 1698.3 75 Amount Dextrose 5% in Water 1, 525 75 000 ml @ 75 mls/hr IV . [id number] [facility] Rx#:[id number] Ertapenem 1 gm In Sodium 50 Chloride 0.9% 50 ml @ 100 mls/hr IVPB DAILY [facility] Rx #:[id number] Fluconazole in NaCl,Iso- 100 Osm 400 mg In Saline 1 200ml.bag @ 100 mls/hr IVPB DAILY [facility] Rx#: [id number] Potassium Acetate 40 meq 1023.3 1023.3 Calcium Chloride 0.33 gm In Amino Acid 5%-D15w 1, 000 ml @ 80 mls/hr IV .[facility] Rx#: [id number] Blood Product 310 Rc Cpda-1 Unit 310 [id number] Output: Gastric Drainage 150 Drainage 50 Left Abdomen 50 Urine 2050 1170 75 Other 20 Other: Voiding Method Indwelling Catheter Indwelling Catheter # Bowel Movements 1 ABP, PAP, CO, CI - Last Documented Arterial Blood Pressure 206/64 - Exam -GENERAL: The patient is unresponsive, does not follow commands, does not look in distress. HEENT: Pupils are round and equally reacting to light. EOMI. No scleral icterus. No conjunctival pallor. Normocephalic, atraumatic. No pharyngeal erythema. No thyromegaly. CARDIOVASCULAR: S1 and S2 present. No murmurs, rubs, or gallops. -PULMONARY: Chest is clear to auscultation, no wheezing . Bilateral crepitation and decreased breath sounds -ABDOMEN: Soft, nontender, nondistended, normoactive bowel sounds. No palpable organomegaly. Surgical wound closed, EBONY drain in place MUSCULOSKELETAL: No joint swelling or deformity. EXTREMITIES: No cyanosis, clubbing, or pedal edema. NEUROLOGICAL: Gross neurological examination did not reveal any focal deficits. SKIN: No rashes. no petechiae. - Labs CBC & Chem 7: 11/21/21 04:55 11/21/21 04:55 Labs: Abnormal Lab Results - Last 24 Hours (Table) 11/20/21 11/21/21 11/21/21 Range/Units 23:46 04:55 04:55 WBC 20.6 H (3.8-10.6) k/uL RBC 2.31 L (4.30-5.90) m/uL Hgb 6.5 L* (13.0-17.5) gm/dL Hct 20.7 L (39.0-53.0) % RDW 18.4 H (11.5-15.5) % Neutrophils # 18.2 H (1.3-7.7) k/uL Sodium 146 H (137-145) mmol/L Chloride 116 H (98-107) mmol/L BUN 69 H (9-20) mg/dL Creatinine 1.40 H (0.66-1.25) mg/dL Glucose 124 H (74-99) mg/dL POC Glucose (mg/dL) 147 H (75-99) mg/dL Crossmatch 11/21/21 11/21/21 11/21/21 Range/Units 05:30 06:18 11:40 WBC (3.8-10.6) k/uL RBC (4.30-5.90) m/uL Hgb (13.0-17.5) gm/dL Hct (39.0-53.0) % RDW (11.5-15.5) % Neutrophils # (1.3-7.7) k/uL Sodium (137-145) mmol/L Chloride (98-107) mmol/L BUN (9-20) mg/dL Creatinine (0.66-1.25) mg/dL Glucose (74-99) mg/dL POC Glucose (mg/dL) 132 H 129 H (75-99) mg/dL Crossmatch See Detail 11/21/21 Range/Units 17:35 WBC (3.8-10.6) k/uL RBC (4.30-5.90) m/uL Hgb (13.0-17.5) gm/dL Hct (39.0-53.0) % RDW (11.5-15.5) % Neutrophils # (1.3-7.7) k/uL Sodium (137-145) mmol/L Chloride (98-107) mmol/L BUN (9-20) mg/dL Creatinine (0.66-1.25) mg/dL Glucose (74-99) mg/dL POC Glucose (mg/dL) 150 H (75-99) mg/dL Crossmatch Assessment and Plan Assessment: Bilateral aspiration pneumonia Ischemia of the lateral portion of the stomach and proximal jejunum, status post partial gastrectomy on 10/30 Pneumoperitoneum and upper abdominal abscess status post exploratory laparotomy on and small bowel resection on 11/12 Toxic/metabolic encephalopathy Mostly chronic kidney disease, stage III Developmental delay, was on a long-term Plan: This is a pleasant 51 years old male who presents with bowel ischemia status post resection, aspiration pneumonia. Continue with Invanz, fluconazole: Continue with IV Lasix Follow-up recommendation by pulmonary/critical care team, surgery team at the neurologist Labs and medication were reviewed.. Continue same treatment. Continue with symptomatic treatment. Resume home medication. Monitor lytes and vitals. DVT and GI prophylaxis. Further recommendations as per clinical course of the patient Prognosis is guarded
[2021-11-22 00:33] LABS: Glucose,Whole Blood 150 mg/dL (75-99)
[2021-11-22] MEDS: LORazepam 2 MG/ML INJ IV SCH ×4 (00:38→18:50)
[2021-11-22] MEDS: INSULIN ASPART (NovoLOG) 100 UNIT/ML VIAL SQ SCH ×4 (00:39→18:53)
[2021-11-22] MEDS: METOCLOPRAMIDE 5 MG/ML 2 ML VIAL IVP SCH ×4 (01:18→20:35)
[2021-11-22] MEDS: NOREPINEPHRINE 8 MG in SODIUM CHLORIDE 0.9% 250 ML IV SCH (04:58)
[2021-11-22 05:18] LABS: Calcium 9.3 mg/dL (8.4-10.2); Magnesium 1.9 mg/dL (1.6-2.3); Phosphorus 3.4 mg/dL (2.5-4.5); Potassium 3.7 mmol/L (3.5-5.1)
[2021-11-22] MEDS: IPRATROPIUM-ALBUTEROL 3 ML NEB INHALATION SCH ×3 (07:50→19:04)
[2021-11-22] MEDS: PANTOPRAZOLE 40 MG/10 ML VIAL IVP SCH ×2 (08:58→20:35)
[2021-11-22] MEDS: [UNRECOGNIZED DRUG - OTHER] IV SCH ×5 (08:58)
[2021-11-22] MEDS: POTASSIUM ACETATE IV SCH ×11 (08:58→22:42)
[2021-11-22] MEDS: POTASSIUM CHLORIDE 10 MEQ in WATER FOR INJECTION 1 100ML.BAG IVPB SCH ×2 (08:58→10:12)
[2021-11-22] MEDS: CALCIUM CHLORIDE IV SCH ×11 (08:58→22:42)
[2021-11-22] MEDS: AMINO ACID 5% IV SCH ×5 (08:58)
[2021-11-22] MEDS: FUROSEMIDE 10 MG/ML 4 ML VIAL IV SCH ×2 (08:58→20:37)
[2021-11-22 09:26] LABS: Anisocytosis Slight; HCT 23.9 % (39.0-53.0); HGB 7.6 gm/dL (13.0-17.5); Hypochromasia Marked; MCH 29.5 pg (25.0-35.0); MCHC 31.6 g/dL (31.0-37.0); MCV 93.5 fL (80.0-100.0); Mean Platelet Volume 8.5; Platelet Count 412 k/uL (150-450); Poikilocytosis Slight; RBC 2.56 m/uL (4.30-5.90); RDW 17.9 % (11.5-15.5); WBC 17.8 k/uL (3.8-10.6)
--- NOTE | 2021-11-22 09:30 | XR ---
EXAMINATION TYPE: XR chest 1V portable DATE OF EXAM: 11/22/2021 COMPARISON: 11/21/2024 HISTORY: Shortness of breath TECHNIQUE: Single frontal view of the chest is obtained. FINDINGS: NG tube in good position and stable within the gastric body. Bilateral infiltrate and pleu ral effusion seen cardiomegaly. No pneumothorax. Underlying COPD suspected. Left-sided PICC line. Hyp ertrophic and degenerative change of the spine. IMPRESSION: 1. Stable bilateral infiltrate and pleural effusion greater on the left unchanged from prior exam. Co rrelate for asymmetric pulmonary edema versus pneumonia.
--- NOTE | 2021-11-22 09:31 | US ---
EXAMINATION TYPE: US chest DATE OF EXAM: 11/22/2021 COMPARISON: XR CLINICAL HISTORY: Markings for thoracentesis by pulmonary staff. Markings. TECHNIQUE: Targeted ultrasound of the posterior lower bilateral hemithoraces EXAM MEASUREMENTS: Right Pleural Effusion pocket size: Minimal complex fluid seen, not marked. Left Pleural Effusion pocket size: 8.66 cm Left anterior fluid pocket to lung tissue: 2.67 cm Left skin surface to lung tissue: 4.96 cm Left skin surface to fluid distance: 3.47 cm Right side NOT marked for possible thoracentesis outside the dept. Left side marked for possible thoracentesis outside the dept. Pulmonologists are able to review the images in the patient?s EMR. IMPRESSIONS: Small bilateral pleural effusion. See above.
[2021-11-22] MEDS: HYDROmorphone 0.5 MG/0.5 ML SYRINGE IVP PRN (09:36)
[2021-11-22] MEDS: FLUCONAZOLE IN NACL,ISO-OSM 400 MG in SALINE 1 200ML.BAG IVPB SCH (09:46)
[2021-11-22] MEDS: ERTAPENEM 1 GM in SODIUM CHLORIDE 0.9% 50 ML IVPB SCH (09:46)
[2021-11-22] MEDS: HYDROPHILIC CREAM 180 GM TUBE TOPICAL SCH (10:12)
--- NOTE | 2021-11-22 10:31 | P.PN ---
Subjective Progress Note Date: 11/22/21 Principal diagnosis: Abdominal sepsis and septic shock. 11/17/2021, patient is extubated. Noted the patient was extubated successfully yesterday. Post extubation, he became slightly anxious and restless. Based on that, the patient was placed on Precedex which is still running at a dose of 0.4 mcg/kg per minute. Nevertheless, the patient survives extubation and the patient is currently on 6 L O2 nasal cannula and his history quite comfortable. At times, he is still tachypneic. . His cough is weak. He is able to clear his upper or secretions. NG tube is in place. Output has dropped since yesterday and the patient has put out approximately 250 mL of gastric material over the past 12 hours. NG tube remains in place. The patient receiving TPN for nutritional support at the rate of 80 mL an hour and the patient's fluid balance has been negative thallium and 99 mL over the past 24 hours. Noted the patient's white cell count is at 18 with a hemoglobin of 7.1. Sodium is at 137, bicarbonate 24, creatinine is at 1.5 and the patient's abdominal fluid cultures came back positive for E. coli that was resistant to Zosyn. He also has Cortney albicans. No other significant events otherwise for now. He is hemodynamically stable on no pressors. EBONY drains are in place with minimal amount of output at this point in time. He seems to be clinically anxious. No agitation at this point in time. Patient was reevaluated today on 11/18/2021, patient remains in the ICU, intubated and mechanically ventilated. He is on assist control rate of 26, volume 400 FiO2 60% and I cut it down to 50% PEEP is at 5. ABG earlier showed a pO2 of 303 pCO2 47 pH of 7.33 and this was done on on the percent FiO2. Patient remains on norepinephrine at 0.2 mcg/kg/m, he is on propofol at 25 mcg/kg/m. TPN at 80 mL per hour. He is receiving his second unit of packed RBCs this m orning, and he is on IV fluid at 10 mL per hour. Patient is sedated, his peak airway pressure is 19 plateau pressure is 21. Continues to have EBONY drains 2, and he has retention sutures. There is minimal output from his EBONY drains. Patient remains on Invanz and on Diflucan. Cultures from the EBONY d rains/abdominal fluid were positive for Cortney and for E. coli. Bronchial washing cultures positive for Cortney. Patient continues to have leukocytosis with WBC count of 45.9 hemoglobin is 5.7 this morning, and he is receiving.'s of packed RBCs this morning. Chest x-ray continues to show by basilar airspace disease/infiltrates. Highly suspicious for aspiration pneumonia. Reevaluated today on 11/20/2021, patient is now off mechanical ventilation, he was extubated yesterday, and so far he tolerated the extubation quite well. Patient is laying in bed, on 6 L nasal cannula and O2 sats 95%. He is receiving TPN at 80 mL/h, IV fluid at KVO, he is receiving today a unit of packed RBCs for hemoglobin of 6.5 this morning. Patient is nonverbal, but seems to follow very simple instructions like wiggling toes, closing eyes, and squeezing hands. Patient remains on antibiotics, remains on TPN, and I have no plans to transfer the patient out of the ICU. He is not requiring any pressors at this point, but intermittently required a blood transfusion for low hemoglobin. Patient may have ongoing oozing from his surgery, and that is to be addressed by surgery on the case. In the meantime he is also requiring antibiotics, being followed by infectious disease on the case. Chest x-ray today showed small bilateral pleural effusions left more so than right, and some patchy opacities in both lungs bilaterally especially at the base. Reevaluated today on 11/21/2021, patient remains in the ICU, remains off mechanical ventilation, unfortunately the patient continues to require blood transfusion, today he is on his stents units of blood hemoglobin this morning was 6.5. Patient remains on 6 L high flow nasal cannula. Remains on TPN. Remains on antibiotics and antifungal therapy. Chest x-ray is suggestive of left lower lobe atelectasis and possibly a pleural effusion. However the pa tiefady is not in any respiratory distress. Urine output is marginal, IV fluid was added today D5 W at 75 mL/h as his sodium seems to be climbing up a bit up to 146 today. Patient remains nonverbal, he is lethargic, has been following instructions/simple instructions intermittently. WBC count today is 20.6 hemoglobin is 6.5 electrolytes are normal BUN is 69 creatinine 1.40, improving. Reevaluated today on 11/22/21, remains in the ICU, remains on nasal cannula at 6 L/m. O2 saturation is in the mid 90s. Patient seems to be comfortable, however his chest x-ray is showing a good sized left-sided pleural effusion which will be considered for thoracentesis. Ultrasound showed a good sized pocket, I will arrange for consent for thoracentesis from his brother, and likely arrange for thoracentesis on this patient sometime later today. WBC count today is 17.8 hemoglobin is holding at 7.6. Electrolytes are better sodium is down to 145 BUN is down to 57 creatinine is down to 1.18. Pro-calcitonin remains a bit elevated at 1.11. Patient remains on antibiotics and antifungal as per infectious disease on the case. Objective - Vital Signs Vital signs: Vital Signs Temp 98.1 F 11/22/21 08:00 Pulse 93 11/22/21 10:00 Resp 19 11/22/21 10:00 BP 151/87 11/22/21 10:00 Pulse Ox 98 11/22/21 10:00 Intake & Output 11/21/21 11/22/21 11/22/21 18:59 06:59 18:59 Intake Total 3154.3 1371 1355.3 Output Total 1340 2315 1145 Balance 1814.3 -944 210.3 Intake: IV 1146 996 332 Ertapenem 1 gm In Sodium 50 Chloride 0.9% 50 ml @ 100 mls/hr IVPB DAILY [facility] Rx #:[id number] Fluconazole in NaCl,Iso- 100 Osm 400 mg In Saline 1 200ml.bag @ 100 mls/hr IVPB DAILY [facility] Rx#: [id number] Pressure Bag 36 36 12 TPN 960 960 320 Intake, IV Titration 1698.3 375 1023.3 Amount Dextrose 5% in Water 1, 525 375 000 ml @ 75 mls/hr IV . [id number] [facility] Rx#:[id number] Ertapenem 1 gm In Sodium 50 Chloride 0.9% 50 ml @ 100 mls/hr IVPB DAILY [facility] Rx #:[id number] Fluconazole in NaCl,Iso- 100 Osm 400 mg In Saline 1 200ml.bag @ 100 mls/hr IVPB DAILY [facility] Rx#: [id number] Potassium Acetate 40 meq 1023.3 1023.3 Calcium Chloride 0.33 gm In Amino Acid 5%-D15w 1, 000 ml @ 80 mls/hr IV .BY DURATION [facility] Rx#: [id number] Blood Product 310 Rc Cpda-1 Unit 310 [id number] Output: Gastric Drainage 150 250 Drainage 20 Left Abdomen 20 Urine 1170 2315 875 Other 20 Other: Voiding Method Indwelling Catheter Indwelling Catheter # Bowel Movements 1 ABP, PAP, CO, CI - Last Documented Arterial Blood Pressure 206/64 - Exam Physical Exam: Revealed 51-year-old white male , in no distress, remains on 6 L nasal cannula Head: Atraumatic, normocephalic. HEENT: PERRLA, EOMI, nonicteric, no neck masses, no JVD, Chest: Symmetrical chest expansion, crackles at the bases. Cardiac Exam: [Normal S1 and S2, no S3 gallop, no murmur.] Abdomen: Soft, abdominal dressing is in place, Nontender abdomen. Soft. Diminished bowel sounds. Extremities: [No clubbing, trace of edema, no cyanosis, diminished distal pulses bilaterally.. Neurological Exam: Patient is awake, follows very simple instructions, nonverbal. Psychiatric: Blunted mood and affect, follows only simple instructions, heart assessment mental status - Labs CBC & Chem 7: 11/22/21 04:40 11/22/21 04:40 Labs: Abnormal Lab Results - Last 24 Hours (Table) 11/21/21 11/21/21 11/21/21 Range/Units 06:18 11:40 17:35 WBC (3.8-10.6) k/uL RBC (4.30-5.90) m/uL Hgb (13.0-17.5) gm/dL Hct (39.0-53.0) % RDW (11.5-15.5) % Chloride (98-107) mmol/L BUN (9-20) mg/dL Glucose (74-99) mg/dL POC Glucose (mg/dL) 129 H 150 H (75-99) mg/dL Triglycerides (0.00-149.00) mg/dL Procalcitonin (0.02-0.09) ng/mL Crossmatch See Detail 11/22/21 11/22/21 11/22/21 Range/Units 00:31 04:40 04:40 WBC (3.8-10.6) k/uL RBC (4.30-5.90) m/uL Hgb (13.0-17.5) gm/dL Hct (39.0-53.0) % RDW (11.5-15.5) % Chloride 112 H (98-107) mmol/L BUN 57 H (9-20) mg/dL Glucose 129 H (74-99) mg/dL POC Glucose (mg/dL) 150 H (75-99) mg/dL Triglycerides 190.00 H (0.00-149.00) mg/dL Procalcitonin 1.11 H (0.02-0.09) ng/mL Crossmatch 11/22/21 Range/Units 04:40 WBC 17.8 H (3.8-10.6) k/uL RBC 2.56 L (4.30-5.90) m/uL Hgb 7.6 L (13.0-17.5) gm/dL Hct 23.9 L (39.0-53.0) % RDW 17.9 H (11.5-15.5) % Chloride (98-107) mmol/L BUN (9-20) mg/dL Glucose (74-99) mg/dL POC Glucose (mg/dL) (75-99) mg/dL Triglycerides (0.00-149.00) mg/dL Procalcitonin (0.02-0.09) ng/mL Crossmatch Assessment and Plan Assessment: Impression: Acute hypoxic respiratory failure secondary to sepsis, abdominal sepsis, septic shock, and suspect aspiration pneumonia. Status post partial gastrectomy with possible gastric wall ischemia, postoperative day # 23 Status post exploratory laparotomy and intra-abdominal abscesses drainage with small bowel resection postoperative day #10 Failed extubation requiring reintubation most likely secondary to aspiration pneumonia. Patient was extubated again on 11/19/2021, seems to be tolerated so far over the last 3 days. Acute lactic acidosis secondary to sepsis and septic shock. Acute kidney injury secondary to sepsis/septic shock. Type 2 diabetes. History of developmental delay and autism. Acute blood loss anemia requiring transfusion, he seemed a total of 10 units of packed RBCs since admission. Left pleural effusion, patient will likely need therapeutic and diagnostic thoracentesis later today. Recommendation: Patient was extubated 3 days ago, tolerated the extubation well so far. Continue to monitor in the ICU Continue antibiotics and antifungal therapy. Continue nutritional support./TPN. No plans to start enteral feeding anytime soon as per general surgery on the case. Continue GI and DVT prophylaxis. Continue to monitor hemoglobin and address accordingly. Continue to monitor output and input. Consider thoracentesis on the left side today. Continue to monitor abdominal wounds Continue aspiration precautions Continue to monitor renal status, improving. Overall prognosis remains extremely poor and guarded. Patient remains critically ill. Critical care time is over 30 minutes Time with Patient: Greater than 30
--- NOTE | 2021-11-22 10:59 | P.PN ---
Subjective Progress Note Date: 11/22/21 CHIEF COMPLAINT: Abdominal pain HISTORY OF PRESENT ILLNES: Patient in the ICU. He remains off of mechanical ventilation. Currently on 6 L high flow nasal cannula. Patient had 250ml bilious output through NG tube. EBONY drain with 20ml purulent sanguinous fluid. Right EBONY drain no output. Patient had fecal management system placed. He is still having black stools. Chest x-ray left-sided pleural effusion. Pulmonary service following and recommending thoracentesis. Afebrile. WBC down from 20.6-17.8 hemoglobin is up from 6.5-7.6 after 1 unit of blood platelets 412 creatinine improved down from 1.40-1.18 Patient seen and examined with Dr. jay PHYSICAL EXAM: VITAL SIGNS: Reviewed. GENERAL: Patient is awake and tracking with his eyes HEENT: Moist buccal mucosa. Head is atraumatic, normocephalic. ABDOMEN: Soft. Nondistended. Abdominal incision is open and packed with gauze with minimal serosanguineous drainage. Retention sutures in place. ASSESSMENT: 1. Pneumoperitoneum, suspected gastric leak and section of proximal jejunum with ischemic changes status post exploratory laparotomy, drainage of upper abdominal abscess, lysis of adhesions and small bowel resection on 11/12/21 2. Ischemia of the lateral portion of the stomach and mild ischemia of the proximal jejunum status post exploratory laparotomy and partial gastrectomy on 10/30/21 3. Septic shock 4. Postoperative ileus resolved 5. Thrombocytopenia resolved 6. Possible aspiration pneumonia 7. Anemia PLAN: -Continue ICU management -Continue supportive care -Continue to monitor hemoglobin -Continue NG tube for decompression -Continue to monitor EBONY drain output -Keep patient nothing by mouth -Continue antibiotics -Continue TPN for nutrition support -CODE STATUS DO NOT RESUSCITATE/DO NOT INTUBATE Physician Supervisor Type Disk Quality Control note has been reviewed by physician. Signing provider agrees with the documented findings, assessment, and plan of care. Objective - Vital Signs Vital signs: Vital Signs Temp 98.1 F 11/22/21 08:00 Pulse 93 11/22/21 10:00 Resp 19 11/22/21 10:00 BP 151/87 11/22/21 10:00 Pulse Ox 98 11/22/21 10:00 Intake & Output 11/21/21 11/22/21 11/22/21 18:59 06:59 18:59 Intake Total 3154.3 1371 1355.3 Output Total 1340 2315 1145 Balance 1814.3 -944 210.3 Weight 80.8 kg Intake: IV 1146 996 332 Ertapenem 1 gm In Sodium 50 Chloride 0.9% 50 ml @ 100 mls/hr IVPB DAILY [facility] Rx #:[id number] Fluconazole in NaCl,Iso- 100 Osm 400 mg In Saline 1 200ml.bag @ 100 mls/hr IVPB DAILY [facility] Rx#: [id number] Pressure Bag 36 36 12 TPN 960 960 320 Intake, IV Titration 1698.3 375 1023.3 Amount Dextrose 5% in Water 1, 525 375 000 ml @ 75 mls/hr IV . [id number] [facility] Rx#:[id number] Ertapenem 1 gm In Sodium 50 Chloride 0.9% 50 ml @ 100 mls/hr IVPB DAILY [facility] Rx #:[id number] Fluconazole in NaCl,Iso- 100 Osm 400 mg In Saline 1 200ml.bag @ 100 mls/hr IVPB DAILY [facility] Rx#: [id number] Potassium Acetate 40 meq 1023.3 1023.3 Calcium Chloride 0.33 gm In Amino Acid 5%-D15w 1, 000 ml @ 80 mls/hr IV .BY DURATION [facility] Rx#: [id number] Blood Product 310 Rc Cpda-1 Unit 310 [id number] Output: Gastric Drainage 150 250 Drainage 20 Left Abdomen 20 Urine 1170 2315 875 Other 20 Other: Voiding Method Indwelling Catheter Indwelling Catheter # Bowel Movements 1 ABP, PAP, CO, CI - Last Documented Arterial Blood Pressure 206/64 - Labs CBC & Chem 7: 11/22/21 04:40 11/22/21 04:40 Labs: Abnormal Lab Results - Last 24 Hours (Table) 11/21/21 11/21/21 11/21/21 Range/Units 06:18 11:40 17:35 WBC (3.8-10.6) k/uL RBC (4.30-5.90) m/uL Hgb (13.0-17.5) gm/dL Hct (39.0-53.0) % RDW (11.5-15.5) % Chloride (98-107) mmol/L BUN (9-20) mg/dL Glucose (74-99) mg/dL POC Glucose (mg/dL) 129 H 150 H (75-99) mg/dL Triglycerides (0.00-149.00) mg/dL Procalcitonin (0.02-0.09) ng/mL Crossmatch See Detail 11/22/21 11/22/21 11/22/21 Range/Units 00:31 04:40 04:40 WBC (3.8-10.6) k/uL RBC (4.30-5.90) m/uL Hgb (13.0-17.5) gm/dL Hct (39.0-53.0) % RDW (11.5-15.5) % Chloride 112 H (98-107) mmol/L BUN 57 H (9-20) mg/dL Glucose 129 H (74-99) mg/dL POC Glucose (mg/dL) 150 H (75-99) mg/dL Triglycerides 190.00 H (0.00-149.00) mg/dL Procalcitonin 1.11 H (0.02-0.09) ng/mL Crossmatch 11/22/21 Range/Units 04:40 WBC 17.8 H (3.8-10.6) k/uL RBC 2.56 L (4.30-5.90) m/uL Hgb 7.6 L (13.0-17.5) gm/dL Hct 23.9 L (39.0-53.0) % RDW 17.9 H (11.5-15.5) % Chloride (98-107) mmol/L BUN (9-20) mg/dL Glucose (74-99) mg/dL POC Glucose (mg/dL) (75-99) mg/dL Triglycerides (0.00-149.00) mg/dL Procalcitonin (0.02-0.09) ng/mL Crossmatch
[2021-11-22 11:21] LABS: Glucose,Whole Blood 136 mg/dL (75-99)
--- NOTE | 2021-11-22 11:40 | P.PN ---
Subjective Progress Note Date: 11/21/21 11/21/2021: Patient was seen for a follow-up. Patient's brother and [id number] were present today. Patient is slightly sleepy, essentially unchanged. Patient is having lot of coffee ground material being suctioned from the stomach. Overall patient clinically unchanged. Not talking much. 11/20/2021: Patient extubated yesterday at around 4 PM. Patient is much more alert. He is still mentally slow, does track. Patient's caregivers including his brother and [id number] were present. He is watching TV, tracks at time. Does not follow much commands. Patient does move his lower extremities, crosses his legs. Patient's nurses reported that he only said once "yes", for pain anywhere, for which he was given Dilaudid. Otherwise he does not follow commands. 11/19/2021: Patient was seen for a follow-up. Patient's brother, and jedznin-fs-ckt were present today. Patient is intubated. Patient is off sedation. Patient continues to be severely encephalopathic. Patient is now DO NOT RESUSCITATE. Family is considering extubation and symptomatic treatment. Patient to be DNR/DNI. Objective - Vital Signs Vital signs: Vital Signs Temp 98.1 F 11/22/21 08:00 Pulse 99 11/22/21 11:00 Resp 22 11/22/21 11:00 BP 146/78 11/22/21 11:00 Pulse Ox 96 11/22/21 11:00 Intake & Output 11/21/21 11/22/21 11/22/21 18:59 06:59 18:59 Intake Total 3154.3 1371 1438.3 Output Total 1340 2315 1795 Balance 1814.3 -944 -356.7 Weight 80.8 kg Intake: IV 1146 996 415 Ertapenem 1 gm In Sodium 50 Chloride 0.9% 50 ml @ 100 mls/hr IVPB DAILY [facility] Rx #:[id number] Fluconazole in NaCl,Iso- 100 Osm 400 mg In Saline 1 200ml.bag @ 100 mls/hr IVPB DAILY [facility] Rx#: [id number] Pressure Bag 36 36 15 TPN 960 960 400 Intake, IV Titration 1698.3 375 1023.3 Amount Dextrose 5% in Water 1, 525 375 000 ml @ 75 mls/hr IV . [id number] [facility] Rx#:[id number] Ertapenem 1 gm In Sodium 50 Chloride 0.9% 50 ml @ 100 mls/hr IVPB DAILY [facility] Rx #:[id number] Fluconazole in NaCl,Iso- 100 Osm 400 mg In Saline 1 200ml.bag @ 100 mls/hr IVPB DAILY [facility] Rx#: [id number] Potassium Acetate 40 meq 1023.3 1023.3 Calcium Chloride 0.33 gm In Amino Acid 5%-D15w 1, 000 ml @ 80 mls/hr IV .BY DURATION [facility] Rx#: [id number] Blood Product 310 Rc Cpda-1 Unit 310 [id number] Output: Gastric Drainage 150 250 Drainage 20 Left Abdomen 20 Urine 1170 2315 1525 Other 20 Other: Voiding Method Indwelling Catheter Indwelling Catheter Indwelling Catheter # Bowel Movements 1 ABP, PAP, CO, CI - Last Documented Arterial Blood Pressure 206/64 - Exam Patient is more alert and awake, still slow mentation, prolonged latency. He does make eye contact, tracks. Pupils are equal, round and reacting. Face is symmetric. Patient does move his arm and legs sporadically. Patient's tone is equal. Reflexes are 2+ to 3 in the arms and legs and plantars are withdrawal. Patient has peripheral edema. Tone is equal bilaterally. Some tremors were noted appears metabolic. - Labs CBC & Chem 7: 11/22/21 04:40 11/22/21 04:40 Labs: Abnormal Lab Results - Last 24 Hours (Table) 11/21/21 11/21/21 11/21/21 Range/Units 06:18 11:40 17:35 WBC (3.8-10.6) k/uL RBC (4.30-5.90) m/uL Hgb (13.0-17.5) gm/dL Hct (39.0-53.0) % RDW (11.5-15.5) % Chloride (98-107) mmol/L BUN (9-20) mg/dL Glucose (74-99) mg/dL POC Glucose (mg/dL) 129 H 150 H (75-99) mg/dL Triglycerides (0.00-149.00) mg/dL Procalcitonin (0.02-0.09) ng/mL Crossmatch See Detail 11/22/21 11/22/21 11/22/21 Range/Units 00:31 04:40 04:40 WBC (3.8-10.6) k/uL RBC (4.30-5.90) m/uL Hgb (13.0-17.5) gm/dL Hct (39.0-53.0) % RDW (11.5-15.5) % Chloride 112 H (98-107) mmol/L BUN 57 H (9-20) mg/dL Glucose 129 H (74-99) mg/dL POC Glucose (mg/dL) 150 H (75-99) mg/dL Triglycerides 190.00 H (0.00-149.00) mg/dL Procalcitonin 1.11 H (0.02-0.09) ng/mL Crossmatch 11/22/21 11/22/21 Range/Units 04:40 11:19 WBC 17.8 H (3.8-10.6) k/uL RBC 2.56 L (4.30-5.90) m/uL Hgb 7.6 L (13.0-17.5) gm/dL Hct 23.9 L (39.0-53.0) % RDW 17.9 H (11.5-15.5) % Chloride (98-107) mmol/L BUN (9-20) mg/dL Glucose (74-99) mg/dL POC Glucose (mg/dL) 136 H (75-99) mg/dL Triglycerides (0.00-149.00) mg/dL Procalcitonin (0.02-0.09) ng/mL Crossmatch Assessment and Plan Assessment: * Altered mental status, likely due to toxic metabolic encephalopathy. * Status post extubation 11/19/2021. * Generalized weakness, possible due to encephalopathy. Possible some component of critical illness myopathy. Patient has brisk reflexes, therefore no evidence of GBS. 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 * Status post septic shock. * Status post acute kidney injury, improved, but now again worsening. * Episode of hypoglycemia 36 mg/dL) on 11/01/2021 At 12:20 AM. * Diabetes * Hypertension * Anemia * Developmental delay, autism and intellectual impairment. Plan: * Patient continues to be encephalopathic. Patient has significant toxic metabolic encephalopathy due to reasons mentioned above. * EEG 11/06/2021 revealed moderate background slowing consistent with encephalopathy. No epileptiform activity was seen. * Computed tomography scan of the head on 10/29/2021 and repeat on 11/05/2021 showed no acute process. * Repeat ammonia is normal <9. B12 > 2000, folate 10.9. TSH is normal. * Avoid any episodes of hypoglycemia. * Patient on SCDs for DVT prophylaxis. * Medical management as per IM, critical care, surgery and other specialties. * Discussed with patient's caregivers. * Patient is now DO NOT RESUSCITATE.
[2021-11-22] MEDS: SCOPOLAMINE 1 MG/72 HR PATCH TRANSDERM SCH (12:52)
--- NOTE | 2021-11-22 13:41 | XR ---
EXAMINATION TYPE: XR chest 1V portable DATE OF EXAM: 11/22/2021 COMPARISON: 11/22/2021 HISTORY: Status post thoracentesis TECHNIQUE: Single frontal view of the chest is obtained. FINDINGS: Interval marked reduction in amount of pleural fluid in the left with no sizable pneumotho rax. Tiny bilateral effusions and bilateral consolidation persists. PICC line in good position. NG tu be in good position. There is a nodular appearing density left perihilar region. IMPRESSION: No pneumothorax postthoracentesis. There is residual nodular density in the left perihil ar region could be correlated with CT scan.
--- NOTE | 2021-11-22 14:38 | OP ---
OPERATIVE REPORT OPERATIVE REPORT: Left-sided thoracentesis. PREOPERATIVE DIAGNOSIS: Left-sided pleural effusion. POSTOPERATIVE DIAGNOSIS: Left-sided pleural effusion. ANESTHESIA USED: Two mL of 1% lidocaine. PROCEDURE DESCRIPTION: The patient was placed in a sitting-upright position. The area below the left scapula was prepared in a sterile fashion and drapes were applied. The fluid was earlier localized by ultrasound, and the marking was at the level of the tip of the scapula and eighth intercostal space. Area was locally anesthetized with lidocaine, and the fluid was localized with a needle and it was advanced into the pleural space. Then a small tiny incision was made, and a standard thoracentesis catheter and needle were used, advanced into the pleural space from the site of the incision until the fluid was obtained. Then the catheter was advanced over the needle into the pleural space and the needle was pulled out of the pleural space. Freely flowing fluid was removed; roughly 850 mL of serosanguineous fluid was drained from the left pleural space and it was sent for different diagnostic studies. Procedure was well tolerated. Chest x-ray postoperatively showed no complications and no pneumothorax. MMODL / IJN: [id number] /
[2021-11-22 18:54] LABS: Glucose,Whole Blood 136 mg/dL (75-99)
--- NOTE | 2021-11-22 20:04 | P.PN ---
Subjective From the records, patient could not provide information Patient was admitted for nausea vomiting diarrhea believed to have gastroenteritis. Patient continued to have vomiting and started having abdominal tenderness because of which CT of the abdomen was obtained which showed pneumatosis coli along with some gas in the venous system concern for is chemic bowel. Patient was started on Zosyn. Patient subsequently decompensated patient became hypotensive with BP of 60/40 transferred to ICU patient was given 3 L of boluses of IV fluid NG tube was placed which showed bloody output . Patient in septic shock and receiving norepinephrine at this time. Recent echo showed normal ejection fraction. Patient had CTA of the chest which was negative for pulmonary embolism patient creatinine has worsened and went up to 2.80 today from 1.14 yesterday and this is secondary to acute tubular necrosis from sepsis and septic shock. Patient does have lactic acidosis, patient does have lactic acidosis with lactic acidosis 7.5. Patient will be given 1 L of IV fluids continue pressor support. he is intubated and sedated. 10/31/2021 Patient is started having urine output. Patient underwent a arthrotomy yesterday and found to have ischemia of the lateral portion of the stomach and ischemia of the proximal jejunum patient underwent partial gastrectomy. Patient is presently on that to pressors maximized on norepinephrine, patient is also on vasopressin receiving albumin, IV fluids started having minimal urine output patient was anuric last night. Patient's chloride is highly elevated leading to metabolic acidosis patient also has an anion gap metabolic acidosis from lactic acidosis which appears to be improving at this time patient's overall clinical condition is guarded and the prognosis is poor. Patient Y blood cell count went down in fact patient is neutropenic now. Patient is presently not receiving any nutrition at this time. 11/18/2021 Patient is seen and evaluated in follow up this morning and continues to be in the ICU and was reintubated again this morning. Chest xray shows CHF and pleural effusions as previously noted. No evidence of pneumothorax. Patient continues with an FI02 of 50% and peep is 5. Patient continues on sedation. Patient to continue with IV antibiotics and also antifungals. WBC is elevated. Per nursing staff, hemoglobin is 5.9 and bleeding from NG tube. Patient to receive 2 units of PRBC. 11/19/2021 Patient is seen in follow-up this morning closely monitored with multiple medical consultations following. Patient continues on mechanical vent with an FiO2 of 35% and PEEP is 5. Patient's hemoglobin is 6.7 today and continues with bleeding noted in the NG tube. Patient is to receive another unit of PRBCs and will continue to monitor hemoglobin and bleeding closely. Weaning parameters are continuously being assessed and possible extubation in the next day or so per pulmonary. Brother at the bedside and is agreeable with no CODE STATUS and no further intubations as patient has been also intubated multiple times this admission and continues to deteriorate. Chest x-ray today shows persistent bilateral infiltrates with pleural effusions greater on the left and correlate for pneumonia versus CHF. Kidney functions slightly worsening as well and trending up. WBC continues to be elevated and patient is maintained on IV antibiotics. 11/20/2021 Patient is seen in follow-up today continues to be in the ICU with multiple medical consultations following. Patient was recently extubated yesterday and currently maintained on 6 L nasal cannula. patient continues to have GI bleeding with NG tube noted to have bleeding along with dark maroon stools noted. Hemoglobin is 6.5 today and will be receiving a unit of PRBC. WBC remains elevated and continues on IV antibiotics. Patient is nonverbal but follows simple commands. Continues to be in critical condition. To continue with NG tube and TPN for now. Surgery following as well. Today note 11/21/2021 Patient with past medical history of developmental delay living in a long-term presents to the hospital on 10/29 from his long-term after a fall and suspected syncope. On admission he was AAO 1. Patient has prolonged hospitalization since then for more than 3 weeks. Today is lying in the bed in the ICU, unresponsive and does not follow command and does not answer questions. He is been followed by several consultants including neurologist, meat puller/critical care team and surgery team. He is a status post exploratory laparotomy and surgical resection of part of the stomach and proximal jejunum secondary to ischemic changes and drainage of the adjacent abscess. He has evidence of persistent bilateral pneumonia and kept on Invanz and fluconazole with body fluid culture showing E. coli and [place] and chest x-ray showing evidence of bilateral infiltrates read also seen on CT of the abdomen, pelvis and chest without contrast: Bilateral pulmonary consolidation and bilateral pleural effusion. He had negative CT of the brain and ejection fraction 60-65%. His receiving TPN and on Lasix 40 mg twice daily. Labs showing leukocytosis of 20, hemoglobin 6.5, sodium 146, creatinine 1.4 with evidence mostly indicating chronic kidney disease stage III. Also history of chronic fever of 100.6 and saturating low 90s on 4 L/m of oxygen. 11/22/2021 Patient remains in the ICU, he is more awake today, he looks at me if I called in by his name however he fails to follow commands, when I asked him if he is in pain he moves his hands little bit on his abdomen, not sure what does not mean exactly. His oxygen requirement slightly worse up to 5 L/m but today he is afebrile. Labs showing slightly improving leukocytosis at 17.8, hemoglobin improved 7.6, sodium 145 and creatinine came down to 1.18. Test x-ray showing decreased left pleural effusion with bilateral consolidation and nodular density in the prior left perihilar region. Patient remains on Invanz, fluconazole, IV Lasix as well as TPN. His wound edges slightly open with gauze soaked but there is no purulent discharge, EBONY drain and place. Rectal tube in place with no blood in it. Zepeda catheter is in place. Objective - Vital Signs Vital signs: Vital Signs Temp 99.2 F 11/22/21 12:00 Pulse 90 11/22/21 15:00 Resp 27 H 11/22/21 15:00 BP 145/89 11/22/21 15:00 Pulse Ox 96 11/22/21 16:24 Intake & Output 11/21/21 11/22/21 11/22/21 18:59 06:59 18:59 Intake Total 3154.3 1371 1853.3 Output Total 1340 2315 2700 Balance 1814.3 -944 -846.7 Weight 80.8 kg Intake: IV 1146 996 830 Ertapenem 1 gm In Sodium 50 Chloride 0.9% 50 ml @ 100 mls/hr IVPB DAILY [facility] Rx #:[id number] Fluconazole in NaCl,Iso- 100 Osm 400 mg In Saline 1 200ml.bag @ 100 mls/hr IVPB DAILY [facility] Rx#: [id number] Pressure Bag 36 36 30 TPN 960 960 800 Intake, IV Titration 1698.3 375 1023.3 Amount Dextrose 5% in Water 1, 525 375 000 ml @ 75 mls/hr IV . [id number] [facility] Rx#:[id number] Ertapenem 1 gm In Sodium 50 Chloride 0.9% 50 ml @ 100 mls/hr IVPB DAILY [facility] Rx #:[id number] Fluconazole in NaCl,Iso- 100 Osm 400 mg In Saline 1 200ml.bag @ 100 mls/hr IVPB DAILY [facility] Rx#: [id number] Potassium Acetate 40 meq 1023.3 1023.3 Calcium Chloride 0.33 gm In Amino Acid 5%-D15w 1, 000 ml @ 80 mls/hr IV .BY DURATION [facility] Rx#: [id number] Blood Product 310 Rc Cpda-1 Unit 310 [id number] Output: Gastric Drainage 150 250 Drainage 20 Left Abdomen 20 Urine 1170 2315 2430 Other 20 Other: Voiding Method Indwelling Catheter Indwelling Catheter Indwelling Catheter # Bowel Movements 1 ABP, PAP, CO, CI - Last Documented Arterial Blood Pressure 206/64 - Exam -GENERAL: The patient is awake but does not answer questions,, does not follow commands, does not look in distress. HEENT: Pupils are round and equally reacting to light. EOMI. No scleral icterus. No conjunctival pallor. Normocephalic, atraumatic. No pharyngeal erythema. No thyromegaly. CARDIOVASCULAR: S1 and S2 present. No murmurs, rubs, or gallops. -PULMONARY: Chest is clear to auscultation, no wheezing . Bilateral crepitation and decreased breath sounds -ABDOMEN: Soft, nontender, nondistended, normoactive bowel sounds. No palpable organomegaly. Surgical wound slightly open at the ages with no purulent discharge, EBONY drain in place MUSCULOSKELETAL: No joint swelling or deformity. EXTREMITIES: No cyanosis, clubbing, or pedal edema. NEUROLOGICAL: Gross neurological examination did not reveal any focal deficits. SKIN: No rashes. no petechiae. - Labs CBC & Chem 7: 11/22/21 04:40 11/22/21 04:40 Labs: Abnormal Lab Results - Last 24 Hours (Table) 11/21/21 11/22/21 11/22/21 Range/Units 17:35 00:31 04:40 WBC (3.8-10.6) k/uL RBC (4.30-5.90) m/uL Hgb (13.0-17.5) gm/dL Hct (39.0-53.0) % RDW (11.5-15.5) % Chloride (98-107) mmol/L BUN (9-20) mg/dL Glucose (74-99) mg/dL POC Glucose (mg/dL) 150 H 150 H (75-99) mg/dL Triglycerides (0.00-149.00) mg/dL Procalcitonin 1.11 H (0.02-0.09) ng/mL 11/22/21 11/22/21 11/22/21 Range/Units 04:40 04:40 11:19 WBC 17.8 H (3.8-10.6) k/uL RBC 2.56 L (4.30-5.90) m/uL Hgb 7.6 L (13.0-17.5) gm/dL Hct 23.9 L (39.0-53.0) % RDW 17.9 H (11.5-15.5) % Chloride 112 H (98-107) mmol/L BUN 57 H (9-20) mg/dL Glucose 129 H (74-99) mg/dL POC Glucose (mg/dL) 136 H (75-99) mg/dL Triglycerides 190.00 H (0.00-149.00) mg/dL Procalcitonin (0.02-0.09) ng/mL Assessment and Plan Assessment: Bilateral aspiration pneumonia Ischemia of the lateral portion of the stomach and proximal jejunum, status post partial gastrectomy on 10/30 Pneumoperitoneum and upper abdominal abscess status post exploratory laparotomy on and small bowel resection on 11/12 Toxic/metabolic encephalopathy Mostly chronic kidney disease, stage III Developmental delay, was on a long-term Plan: This is a pleasant 51 years old male who presents with bowel ischemia status post resection, aspiration pneumonia. Continue with Invanz, fluconazole: Continue with IV Lasix Continue with rectal tube Follow-up recommendation by pulmonary/critical care team, surgery team at the neurologist Labs and medication were reviewed.. Continue same treatment. Continue with symptomatic treatment. Resume home medication. Monitor lytes and vitals. DVT and GI prophylaxis. Further recommendations as per clinical course of the patient Prognosis is extremely guarded
[2021-11-22] MEDS ORDERED: POTASSIUM ACETATE IV SCH ×6 (21:00)
[2021-11-22] MEDS ORDERED: [UNRECOGNIZED DRUG - OTHER] IV SCH ×6 (21:00)
[2021-11-22] MEDS ORDERED: POTASSIUM CHLORIDE IV SCH ×6 (21:00)
[2021-11-22] MEDS ORDERED: CALCIUM CHLORIDE IV SCH ×6 (21:00)
[2021-11-22] MEDS: POTASSIUM CHLORIDE IV SCH ×6 (22:42)
[2021-11-22] MEDS: [UNRECOGNIZED DRUG - OTHER] IV SCH ×6 (22:42)
[2021-11-22 23:19] LABS: Glucose, BF Source Body Fluid; Glucose, Body Fluid 117 mg/dL; LDH, Body Fluid Source Body Fluid; T. Protein, Body Fluid Source Body Fluid; Total Protein, Body Fluid 2840 mg/dL
[2021-11-23 00:21] LABS: Appearance,BF Bloody
[2021-11-23] MEDS: LORazepam 2 MG/ML INJ IV SCH ×5 (00:45→23:45)
[2021-11-23 00:52] LABS: Glucose,Whole Blood 162 mg/dL (75-99)
[2021-11-23] MEDS: INSULIN ASPART (NovoLOG) 100 UNIT/ML VIAL SQ SCH ×5 (00:54→23:46)
[2021-11-23 04:31] LABS: Anisocytosis Slight; HCT 23.8 % (39.0-53.0); HGB 7.3 gm/dL (13.0-17.5); Hypochromasia Moderate; MCH 28.4 pg (25.0-35.0); MCHC 30.7 g/dL (31.0-37.0); MCV 92.6 fL (80.0-100.0); Mean Platelet Volume 8.7; Platelet Count 408 k/uL (150-450); Poikilocytosis Slight; RBC 2.57 m/uL (4.30-5.90); WBC 15.9 k/uL (3.8-10.6)
[2021-11-23 04:51] LABS: Calcium 9.7 mg/dL (8.4-10.2); Magnesium 1.8 mg/dL (1.6-2.3); Phosphorus 3.6 mg/dL (2.5-4.5); Potassium 3.7 mmol/L (3.5-5.1)
[2021-11-23] MEDS: METOCLOPRAMIDE 5 MG/ML 2 ML VIAL IVP SCH ×4 (06:17→20:53)
[2021-11-23] MEDS: NOREPINEPHRINE 8 MG in SODIUM CHLORIDE 0.9% 250 ML IV SCH (06:18)
--- NOTE | 2021-11-23 06:56 | XR ---
EXAMINATION TYPE: XR chest 1V portable DATE OF EXAM: 11/23/2021 5:51 AM COMPARISON:Chest radiograph from one day prior. TECHNIQUE: XR chest 1V portable Frontal view of the chest. CLINICAL INDICATION:Male, 51 years old with history of Tube placement; FINDINGS: Lungs/Pleura: Similar opacities in left perihilar region with new opacities within the right lung bas e. There is no evidence of pleural effusion or pneumothorax. Pulmonary vascularity: Unremarkable. Heart/mediastinum: Cardiomediastinal silhouette is unremarkable. Musculoskeletal: No acute osseous pathology. Other findings: None Lines/Tubes: Nasogastric tube with its distal tip and side-port projecting under the diaphragm. Left-sided PICC with distal tip at the superior vena cava/brachiocephalic confluence. IMPRESSION: 1. New right lung base airspace opacities could represent evolving pneumonia. 2. Similar Left perihilar region opacities. 3. Stable nasogastric tube and left PICC
[2021-11-23] MEDS: IPRATROPIUM-ALBUTEROL 3 ML NEB INHALATION SCH ×3 (07:43→19:32)
[2021-11-23] MEDS: POTASSIUM CHLORIDE 10 MEQ in WATER FOR INJECTION 1 100ML.BAG IVPB SCH ×2 (09:15→10:57)
[2021-11-23] MEDS: PANTOPRAZOLE 40 MG/10 ML VIAL IVP SCH ×2 (09:16→20:53)
[2021-11-23] MEDS: MAGNESIUM SULFATE-D5W PMX 1 GM in DEXTROSE/WATER 1 100ML.BAG IVPB SCH ×2 (09:16→11:03)
[2021-11-23] MEDS: ERTAPENEM 1 GM in SODIUM CHLORIDE 0.9% 50 ML IVPB SCH (09:17)
[2021-11-23] MEDS: FUROSEMIDE 10 MG/ML 4 ML VIAL IV SCH ×2 (09:17→20:52)
[2021-11-23] MEDS: FLUCONAZOLE IN NACL,ISO-OSM 400 MG in SALINE 1 200ML.BAG IVPB SCH (09:17)
[2021-11-23] MEDS: HYDROPHILIC CREAM 180 GM TUBE TOPICAL SCH (09:18)
[2021-11-23] MEDS: POTASSIUM ACETATE IV SCH ×18 (10:57→11:02)
[2021-11-23] MEDS: CALCIUM CHLORIDE IV SCH ×18 (10:57→11:02)
[2021-11-23] MEDS: [UNRECOGNIZED DRUG - OTHER] IV SCH ×12 (10:57→10:59)
[2021-11-23] MEDS: POTASSIUM CHLORIDE IV SCH ×18 (10:57→11:02)
[2021-11-23] MEDS: [UNRECOGNIZED DRUG - OTHER] IV SCH ×6 (11:02)
--- NOTE | 2021-11-23 11:56 | P.PN ---
Subjective Progress Note Date: 11/23/21 Principal diagnosis: Abdominal sepsis and septic shock. 11/17/2021, patient is extubated. Noted the patient was extubated successfully yesterday. Post extubation, he became slightly anxious and restless. Based on that, the patient was placed on Precedex which is still running at a dose of 0.4 mcg/kg per minute. Nevertheless, the patient survives extubation and the patient is currently on 6 L O2 nasal cannula and his history quite comfortable. At times, he is still tachypneic. . His cough is weak. He is able to clear his upper or secretions. NG tube is in place. Output has dropped since yesterday and the patient has put out approximately 250 mL of gastric material over the past 12 hours. NG tube remains in place. The patient receiving TPN for nutritional support at the rate of 80 mL an hour and the patient's fluid balance has been negative thallium and 99 mL over the past 24 hours. Noted the patient's white cell count is at 18 with a hemoglobin of 7.1. Sodium is at 137, bicarbonate 24, creatinine is at 1.5 and the patient's abdominal fluid cultures came back positive for E. coli that was resistant to Zosyn. He also has Cortney albicans. No other significant events otherwise for now. He is hemodynamically stable on no pressors. EBONY drains are in place with minimal amount of output at this point in time. He seems to be clinically anxious. No agitation at this point in time. Patient was reevaluated today on 11/18/2021, patient remains in the ICU, intubated and mechanically ventilated. He is on assist control rate of 26, volume 400 FiO2 60% and I cut it down to 50% PEEP is at 5. ABG earlier showed a pO2 of 303 pCO2 47 pH of 7.33 and this was done on on the percent FiO2. Patient remains on norepinephrine at 0.2 mcg/kg/m, he is on propofol at 25 mcg/kg/m. TPN at 80 mL per hour. He is receiving his second unit of packed RBCs this m orn, and he is on IV fluid at 10 mL per hour. Patient is sedated, his peak airway pressure is 19 plateau pressure is 21. Continues to have EBONY drains 2, and he has retention sutures. There is minimal output from his EBONY drains. Patient remains on Invanz and on Diflucan. Cultures from the EBONY d rains/abdominal fluid were positive for Cortney and for E. coli. Bronchial washing cultures positive for Cortney. Patient continues to have leukocytosis with WBC count of 45.9 hemoglobin is 5.7 this morning, and he is receiving.'s of packed RBCs this morning. Chest x-ray continues to show by basilar airspace disease/infiltrates. Highly suspicious for aspiration pneumonia. Reevaluated today on 11/20/2021, patient is now off mechanical ventilation, he was extubated yesterday, and so far he tolerated the extubation quite well. Patient is laying in bed, on 6 L nasal cannula and O2 sats 95%. He is receiving TPN at 80 mL/h, IV fluid at KVO, he is receiving today a unit of packed RBCs for hemoglobin of 6.5 this morning. Patient is nonverbal, but seems to follow very simple instructions like wiggling toes, closing eyes, and squeezing hands. Patient remains on antibiotics, remains on TPN, and I have no plans to transfer the patient out of the ICU. He is not requiring any pressors at this point, but intermittently required a blood transfusion for low hemoglobin. Patient may have ongoing oozing from his surgery, and that is to be addressed by surgery on the case. In the meantime he is also requiring antibiotics, being followed by infectious disease on the case. Chest x-ray today showed small bilateral pleural effusions left more so than right, and some patchy opacities in both lungs bilaterally especially at the base. Reevaluated today on 11/21/2021, patient remains in the ICU, remains off mechanical ventilation, unfortunately the patient continues to require blood transfusion, today he is on his stents units of blood hemoglobin this morning was 6.5. Patient remains on 6 L high flow nasal cannula. Remains on TPN. Remains on antibiotics and antifungal therapy. Chest x-ray is suggestive of left lower lobe atelectasis and possibly a pleural effusion. However the pa tiefady is not in any respiratory distress. Urine output is marginal, IV fluid was added today D5 W at 75 mL/h as his sodium seems to be climbing up a bit up to 146 today. Patient remains nonverbal, he is lethargic, has been following instructions/simple instructions intermittently. WBC count today is 20.6 hemoglobin is 6.5 electrolytes are normal BUN is 69 creatinine 1.40, improving. Reevaluated today on 11/22/21, remains in the ICU, remains on nasal cannula at 6 L/m. O2 saturation is in the mid 90s. Patient seems to be comfortable, however his chest x-ray is showing a good sized left-sided pleural effusion which will be considered for thoracentesis. Ultrasound showed a good sized pocket, I will arrange for consent for thoracentesis from his brother, and likely arrange for thoracentesis on this patient sometime later today. WBC count today is 17.8 hemoglobin is holding at 7.6. Electrolytes are better sodium is down to 145 BUN is down to 57 creatinine is down to 1.18. Pro-calcitonin remains a bit elevated at 1.11. Patient remains on antibiotics and antifungal as per infectious disease on the case. Patient was reevaluated today on 11/23/21, he seems to be improving on a daily basis. Today he is only on 5 L nasal cannula and his O2 sats is 99%. Patient underwent uneventful thoracentesis yesterday. And he continues to do well from the pulmonary perspective. He is still receiving TPN. And he continues to have daily abdominal wound dressing changes, patient still has an open wound with retention sutures. Continues to have EBONY drains draining thick purulent material. However it is minimal. His WBC count is down to 15.9 hemoglobin is holding at 7.3. Electrolytes are normal renal profile showed a BUN of 51 creatinine of 1.25. Pleural effusion seems to be exudative in nature with elevated LDH and elevated total protein. Objective - Vital Signs Vital signs: Vital Signs Temp 98.7 F 11/23/21 08:00 Pulse 84 11/23/21 11:30 Resp 18 11/23/21 11:30 BP 133/73 11/23/21 11:00 Pulse Ox 99 11/23/21 11:00 Intake & Output 11/22/21 11/23/21 11/23/21 18:59 06:59 18:59 Intake Total 2019.3 890 468 Output Total 2835 1145 1305 Balance -815.7 -1065 -837 Weight 80.8 kg Intake: IV 996 890 465 Pressure Bag 36 30 15 TPN 960 860 450 Intake, IV Titration 1023.3 3 Amount Potassium Acetate 24 meq 3 Calcium Chloride 0.33 gm Potassium Chloride 30 meq In Amino Acids 5 %/ Dextrose 20 % 1,000 ml @ 90 mls/hr IV .BY DURATION [facility] Rx#:[id number] Potassium Acetate 40 meq 1023.3 Calcium Chloride 0.33 gm In Amino Acid 5%-D15w 1, 000 ml @ 80 mls/hr IV .BY DURATION [facility] Rx#: [id number] Output: Gastric Drainage 250 200 Drainage 20 30 Left Abdomen 20 25 Right Abdomen 5 Urine 2565 1725 1305 Other: Voiding Method Indwelling Catheter Indwelling Catheter Indwelling Catheter ABP, PAP, CO, CI - Last Documented Arterial Blood Pressure 206/64 - Exam Physical Exam: Revealed 51-year-old white male , in no distress, remains on 5 L nasal cannula Head: Atraumatic, normocephalic. HEENT: PERRLA, EOMI, nonicteric, no neck masses, no JVD, Chest: Symmetrical chest expansion, crackles at the bases. Cardiac Exam: [Normal S1 and S2, no S3 gallop, no murmur.] Abdomen: Soft, abdominal dressing is in place, Nontender abdomen. Soft. Diminished bowel sounds. EBONY drain is noted. Abdominal wound remains open with retention sutures in place. Extremities: [No clubbing, trace of edema, no cyanosis, diminished distal pulses bilaterally.. Neurological Exam: Patient is awake, follows very simple instructions, nonverbal. Psychiatric: Blunted mood and affect, follows only simple instructions, heart assessment mental status - Labs CBC & Chem 7: 11/23/21 04:10 11/23/21 04:10 Labs: Abnormal Lab Results - Last 24 Hours (Table) 11/22/21 11/23/21 11/23/21 Range/Units 18:53 00:50 04:10 WBC (3.8-10.6) k/uL RBC (4.30-5.90) m/uL Hgb (13.0-17.5) gm/dL Hct (39.0-53.0) % MCHC (31.0-37.0) g/dL RDW (11.5-15.5) % Carbon Dioxide 35 H (22-30) mmol/L BUN 51 H (9-20) mg/dL Glucose 144 H (74-99) mg/dL POC Glucose (mg/dL) 136 H 162 H (75-99) mg/dL 11/23/21 Range/Units 04:10 WBC 15.9 H (3.8-10.6) k/uL RBC 2.57 L (4.30-5.90) m/uL Hgb 7.3 L (13.0-17.5) gm/dL Hct 23.8 L (39.0-53.0) % MCHC 30.7 L (31.0-37.0) g/dL RDW 18.0 H (11.5-15.5) % Carbon Dioxide (22-30) mmol/L BUN (9-20) mg/dL Glucose (74-99) mg/dL POC Glucose (mg/dL) (75-99) mg/dL Microbiology - Last 24 Hours (Table) 11/22/21 13:20 Gram Stain - Preliminary Pleural Fluid Body Fluid Culture - Preliminary 11/22/21 13:20 Acid Fast Bacilli Culture - Preliminary Pleural Fluid 11/22/21 13:20 Anaerobic Culture - Preliminary Pleural Fluid 11/22/21 13:20 Fungal Culture - Preliminary Pleural Fluid Assessment and Plan Assessment: Impression: Acute hypoxic respiratory failure secondary to sepsis, abdominal sepsis, septic shock, and suspect aspiration pneumonia. Status post partial gastrectomy with possible gastric wall ischemia, postoperative day # 23 Status post exploratory laparotomy and intra-abdominal abscesses drainage with small bowel resection postoperative day #10 Failed extubation requiring reintubation most likely secondary to aspiration pneumonia. Patient was extubated again on 11/19/2021, seems to be tolerated so far over the last 3 days. Acute lactic acidosis secondary to sepsis and septic shock. Acute kidney injury secondary to sepsis/septic shock. Type 2 diabetes. History of developmental delay and autism. Acute blood loss anemia requiring transfusion, he seemed a total of 10 units of packed RBCs since admission. Presently his blood loss seems to be holding. Left pleural effusion, status post thoracentesis with 850 mL of serosanguineous fluid removed on 11/22/2021 Recommendation: Patient was extubated 4 days ago, tolerated the extubation well so far. Continue to monitor in the ICU Continue with the dressing changes and packing of abdominal wound. Along with retention sutures. Continue antibiotics and antifungal therapy. Continue nutritional support./TPN. Continue GI and DVT prophylaxis. Continue to monitor hemoglobin Continue to monitor output and input. Final results on the pleural effusion are pending however it seems to be exudative in nature based on initial findings. Continue to monitor abdominal wounds Continue aspiration precautions Continue to monitor renal status, improving. Overall prognosis remains extremely poor and guarded. Patient remains critically ill., Nonetheless the patient is better today compared to the last few days Time with Patient: Less than 30
[2021-11-23 12:01] LABS: Glucose,Whole Blood 197 mg/dL (75-99)
--- NOTE | 2021-11-23 15:18 | P.PN ---
Subjective Progress Note Date: 11/23/21 CHIEF COMPLAINT: Gastric ischemia with pneumoperitoneum HISTORY OF PRESENT ILLNESS: The patient is a 51-year-old with a compensated hospital course and hospitalization almost 4 weeks following initial pres entation of gastric ischemia status post partial gastrectomy 10/30/2021 followed by subsequent jejunal ischemia with small bowel resection 11/12/2021. Patient has been intensive care unit. Initial concerns include anemia. Patient also has had pneumonia. Family at bedside. Nurse is at bedside. Nurses reports change in color EBONY drain yesterday. Per discussion with nurse, nurse practitioner was notified yesterday. Patient spontaneously awake and responds to my voice. Patient in recumbent position in bed. Feculent stool system present. Continue IV amounts including tube feeds. ROS: No reports of nausea and vomiting. Has bowel movements. No new chest pain. PHYSICAL EXAM: VITAL SIGNS: Reviewed CONSTITUTIONAL: Well developed and in no acute distress. EYES: Conjuctivae without sclera icterus. Extraocular movements grossly intact. HEAD, EARS, NOSE, THROAT: Moist buccal mucosa. Head is atraumatic, normocephalic. Hears conversational speech. No nasal drainage. RESPIRATORY: Non-labored respirations and equal bilateral excursions. Tracheostomy intact. CARDIOVASCULAR: Palpable 2+ radial pulses. ABDOMEN: EBONY brownish tinged and output less than 30 mL in 24 hours. Dressing intact. MUSCULOSKELETAL: No cyanosis. Has wrist protectors bilaterally. SKIN: Good skin turgor. Well perfused. NEUROLOGIC: Cranial nerves II through XII grossly intact. No focal or lateralizing signs. PSYCH: Alert to person. CLINICAL LABS: Reviewed. WBC trending down from over 17,000 to over 15,000. Hemoglobin 7.6, 7.3 stable ASSESSMENT: 1. Gastric ischemia status post partial gastric 2. Jejunal ischemia status post bowel resection 3. Tracheostomy status 4. Gastrostomy tube set 5. Septic shock 6. Anemia PLAN: 1. Continue IV antibiotics with septic shock history 2. Continue intensive care unit management due to tracheostomy 3. Overall, patient in guarded condition 4. May need CT of the abdomen and pelvis with new purulence from EBONY drain 5. Has progressive anemia and may benefit from blood transfusions pending hemoglobin trend Objective - Vital Signs Vital signs: Vital Signs Temp 98.8 F 11/23/21 12:00 Pulse 89 11/23/21 14:00 Resp 33 H 11/23/21 14:00 BP 139/82 11/23/21 14:00 Pulse Ox 97 11/23/21 14:00 Intake & Output 11/22/21 11/23/21 11/23/21 18:59 06:59 18:59 Intake Total 2019.3 890 747 Output Total 2835 1954 1954 Balance -815.7 -1065 -1208 Weight 80.8 kg Intake: IV 996 890 744 Pressure Bag 36 30 24 TPN 960 860 720 Intake, IV Titration 1023.3 3 Amount Potassium Acetate 24 meq 3 Calcium Chloride 0.33 gm Potassium Chloride 30 meq In Amino Acids 5 %/ Dextrose 20 % 1,000 ml @ 90 mls/hr IV .BY DURATION [facility] Rx#:[id number] Potassium Acetate 40 meq 1023.3 Calcium Chloride 0.33 gm In Amino Acid 5%-D15w 1, 000 ml @ 80 mls/hr IV .BY DURATION [facility]ERTO Rx#: [id number] Output: Gastric Drainage 250 200 Drainage 20 30 Left Abdomen 20 25 Right Abdomen 5 Urine 2565 1725 1955 Other: Voiding Method Indwelling Catheter Indwelling Catheter Indwelling Catheter ABP, PAP, CO, CI - Last Documented Arterial Blood Pressure 206/64 - Labs CBC & Chem 7: 11/23/21 04:10 11/23/21 04:10 Labs: Abnormal Lab Results - Last 24 Hours (Table) 11/22/21 11/23/21 11/23/21 Range/Units 18:53 00:50 04:10 WBC (3.8-10.6) k/uL RBC (4.30-5.90) m/uL Hgb (13.0-17.5) gm/dL Hct (39.0-53.0) % MCHC (31.0-37.0) g/dL RDW (11.5-15.5) % Carbon Dioxide 35 H (22-30) mmol/L BUN 51 H (9-20) mg/dL Glucose 144 H (74-99) mg/dL POC Glucose (mg/dL) 136 H 162 H (75-99) mg/dL 11/23/21 11/23/21 Range/Units 04:10 11:59 WBC 15.9 H (3.8-10.6) k/uL RBC 2.57 L (4.30-5.90) m/uL Hgb 7.3 L (13.0-17.5) gm/dL Hct 23.8 L (39.0-53.0) % MCHC 30.7 L (31.0-37.0) g/dL RDW 18.0 H (11.5-15.5) % Carbon Dioxide (22-30) mmol/L BUN (9-20) mg/dL Glucose (74-99) mg/dL POC Glucose (mg/dL) 197 H (75-99) mg/dL Microbiology - Last 24 Hours (Table) 11/22/21 13:20 Gram Stain - Preliminary Pleural Fluid Body Fluid Culture - Preliminary 11/22/21 13:20 Acid Fast Bacilli Culture - Preliminary Pleural Fluid 11/22/21 13:20 Anaerobic Culture - Preliminary Pleural Fluid 11/22/21 13:20 Fungal Culture - Preliminary Pleural Fluid Assessment and Plan (1) Gastric necrosis Current Visit: Yes Status: Acute Code(s): K31.89 - OTHER DISEASES OF STOMACH AND DUODENUM SNOMED Code(s): 518146086 (2) Ischemic necrosis of small bowel Current Visit: Yes Status: Acute Code(s): K55.029 - ACUTE INFARCTION OF SMALL INTESTINE, EXTENT UNSPECIFIED SNOMED Code(s): 615105366 (3) Tracheostomy dependence Current Visit: Yes Status: Acute Code(s): Z93.0 - TRACHEOSTOMY STATUS SNOMED Code(s): 643952475 (4) Gastrostomy in place Current Visit: Yes Status: Acute Code(s): Z93.1 - GASTROSTOMY STATUS SNOMED Code(s): 023329726 (5) Sepsis Current Visit: Yes Status: Acute Code(s): A41.9 - SEPSIS, UNSPECIFIED ORGANISM SNOMED Code(s): 88723256 (6) Wristdrop Current Visit: No Status: Acute (7) Intra-abdominal abscess Current Visit: Yes Status: Acute Code(s): K65.1 - PERITONEAL ABSCESS SNOMED Code(s): 87453901
[2021-11-23 17:49] LABS: Glucose,Whole Blood 151 mg/dL (75-99)
[2021-11-23] MEDS ORDERED: 1: MVI, ADULT NO.4 WITH VIT K 10 ML, TRACE (CONC-1ML/DOSE) 1 ML, POTASSIUM ACETATE 40 ME IV SCH ×5 (22:30)
[2021-11-23] MEDS ORDERED: MVI, ADULT NO.4 WITH VIT K 10 ML, TRACE (CONC-1ML/DOSE) 1 ML, POTASSIUM ACETATE 20 MEQ,... IV SCH ×5 (22:30)
[2021-11-23 23:38] LABS: Glucose,Whole Blood 173 mg/dL (75-99)
--- NOTE | 2021-11-23 23:45 | P.PN ---
Subjective From the records, patient could not provide information Patient was admitted for nausea vomiting diarrhea believed to have gastroenteritis. Patient continued to have vomiting and started having abdominal tenderness because of which CT of the abdomen was obtained which showed pneumatosis coli along with some gas in the venous system concern for is chemic bowel. Patient was started on Zosyn. Patient subsequently decompensated patient became hypotensive with BP of 60/40 transferred to ICU patient was given 3 L of boluses of IV fluid NG tube was placed which showed bloody output . Patient in septic shock and receiving norepinephrine at this time. Recent echo showed normal ejection fraction. Patient had CTA of the chest which was negative for pulmonary embolism patient creatinine has worsened and went up to 2.80 today from 1.14 yesterday and this is secondary to acute tubular necrosis from sepsis and septic shock. Patient does have lactic acidosis, patient does have lactic acidosis with lactic acidosis 7.5. Patient will be given 1 L of IV fluids continue pressor support. he is intubated and sedated. 10/31/2021 Patient is started having urine output. Patient underwent a arthrotomy yesterday and found to have ischemia of the lateral portion of the stomach and ischemia of the proximal jejunum patient underwent partial gastrectomy. Patient is presently on that to pressors maximized on norepinephrine, patient is also on vasopressin receiving albumin, IV fluids started having minimal urine output patient was anuric last night. Patient's chloride is highly elevated leading to metabolic acidosis patient also has an anion gap metabolic acidosis from lactic acidosis which appears to be improving at this time patient's overall clinical condition is guarded and the prognosis is poor. Patient Y blood cell count went down in fact patient is neutropenic now. Patient is presently not receiving any nutrition at this time. 11/18/2021 Patient is seen and evaluated in follow up this morning and continues to be in the ICU and was reintubated again this morning. Chest xray shows CHF and pleural effusions as previously noted. No evidence of pneumothorax. Patient continues with an FI02 of 50% and peep is 5. Patient continues on sedation. Patient to continue with IV antibiotics and also antifungals. WBC is elevated. Per nursing staff, hemoglobin is 5.9 and bleeding from NG tube. Patient to receive 2 units of PRBC. 11/19/2021 Patient is seen in follow-up this morning closely monitored with multiple medical consultations following. Patient continues on mechanical vent with an FiO2 of 35% and PEEP is 5. Patient's hemoglobin is 6.7 today and continues with bleeding noted in the NG tube. Patient is to receive another unit of PRBCs and will continue to monitor hemoglobin and bleeding closely. Weaning parameters are continuously being assessed and possible extubation in the next day or so per pulmonary. Brother at the bedside and is agreeable with no CODE STATUS and no further intubations as patient has been also intubated multiple times this admission and continues to deteriorate. Chest x-ray today shows persistent bilateral infiltrates with pleural effusions greater on the left and correlate for pneumonia versus CHF. Kidney functions slightly worsening as well and trending up. WBC continues to be elevated and patient is maintained on IV antibiotics. 11/20/2021 Patient is seen in follow-up today continues to be in the ICU with multiple medical consultations following. Patient was recently extubated yesterday and currently maintained on 6 L nasal cannula. patient continues to have GI bleeding with NG tube noted to have bleeding along with dark maroon stools noted. Hemoglobin is 6.5 today and will be receiving a unit of PRBC. WBC remains elevated and continues on IV antibiotics. Patient is nonverbal but follows simple commands. Continues to be in critical condition. To continue with NG tube and TPN for now. Surgery following as well. Today note 11/21/2021 Patient with past medical history of developmental delay [place] in a jail presents to the hospital on 10[place] jail after a fall and suspected syncope. On admission he was AAO 1. Patient has prolonged hospitalization since then for more than 3 weeks. Today is lying in the bed in the ICU, unresponsive and does not follow command and does not answer questions. He is been followed by several consultants including neurologist, highway design engineer/critical care team and surgery team. He is a status post exploratory laparotomy and surgical resection of part of the stomach and proximal jejunum secondary to ischemic changes and drainage of the adjacent abscess. He has evidence of persistent bilateral pneumonia and kept on Invanz and fluconazole with body fluid culture showing E. coli and Cortney and chest x-ray showing evidence of bilateral infiltrates read also seen on CT of the abdomen, pelvis and chest without contrast: Bilateral pulmonary consolidation and bilateral pleural effusion. He had negative CT of the brain and ejection fraction 60-65%. His receiving TPN and on Lasix 40 mg twice daily. Labs showing leukocytosis of 20, hemoglobin 6.5, sodium 146, creatinine 1.4 with evidence mostly indicating chronic kidney disease stage III. Also history of chronic fever of 100.6 and saturating low 90s on 4 L/m of oxygen. 11/22/2021 Patient remains in the ICU, he is more awake today, he looks at me if I called in by his name however he fails to follow commands, when I asked him if he is in pain he moves his hands little bit on his abdomen, not sure what does not mean exactly. His oxygen requirement slightly worse up to 5 L/m but today he is afebrile. Labs showing slightly improving leukocytosis at 17.8, hemoglobin improved 7.6, sodium 145 and creatinine came down to 1.18. Test x-ray showing decreased left pleural effusion with bilateral consolidation and nodular density in the prior left perihilar region. Patient remains on Invanz, fluconazole, IV Lasix as well as TPN. His wound edges slightly open with gauze soaked but there is no purulent discharge, EBONY drain and place. Rectal tube in place with no blood in it. Zepeda catheter is in place. 11/23/2021 Patient is a status post left thoracocentesis yesterday with a 20 mm of fluid taken out. Today he is more awake and comfortable, he looks at me when I talked to him but he does not follow commands and he does not answer questions. NG tube with green discharge, he has some black stool. EBONY drains with minimal discharge when I examine him, surgical wound is stable. Patient still has PICC line with TPN running. Vitals and labs looked the same, however oxygen is slightly worse with requirement went up from 5-6 L per minute and chest x-ray showing right lower lobe evolving pneumonia however patient remains on the same antibiotics with invanz and fluconazole. Also he is on IV Lasix and TPN Objective - Vital Signs Vital signs: Vital Signs Temp 98.8 F 11/23/21 12:00 Pulse 81 11/23/21 12:00 Resp 22 11/23/21 12:00 BP 134/80 11/23/21 12:00 Pulse Ox 96 11/23/21 12:00 Intake & Output 11/22/21 11/23/21 11/23/21 18:59 06:59 18:59 Intake Total 2019.3 890 561 Output Total 2835 5 1655 Balance -815.7 -1065 -1094 Weight 80.8 kg Intake: IV 996 890 558 Pressure Bag 36 30 18 TPN 960 860 540 Intake, IV Titration 1023.3 3 Amount Potassium Acetate 24 meq 3 Calcium Chloride 0.33 gm Potassium Chloride 30 meq In Amino Acids 5 %/ Dextrose 20 % 1,000 ml @ 90 mls/hr IV .BY DURATION [facility] Rx#:[id number] Potassium Acetate 40 meq 1023.3 Calcium Chloride 0.33 gm In Amino Acid 5%-D15w 1, 000 ml @ 80 mls/hr IV .BY DURATION [facility]ERTO Rx#: [id number] Output: Gastric Drainage 250 200 Drainage 20 30 Left Abdomen 20 25 Right Abdomen 5 Urine 2565 1725 1655 Other: Voiding Method Indwelling Catheter Indwelling Catheter Indwelling Catheter ABP, PAP, CO, CI - Last Documented Arterial Blood Pressure 206/64 - Exam -GENERAL: The patient is awake but does not answer questions,, does not follow commands, does not look in distress. HEENT: Pupils are round and equally reacting to light. EOMI. No scleral icterus. No conjunctival pallor. Normocephalic, atraumatic. No pharyngeal erythema. No thyromegaly. CARDIOVASCULAR: S1 and S2 present. No murmurs, rubs, or gallops. -PULMONARY: Chest is clear to auscultation, no wheezing . Bilateral crepitation and decreased breath sounds -ABDOMEN: Soft, nontender, nondistended, normoactive bowel sounds. No palpable organomegaly. Surgical wound slightly open at the ages with no purulent discharge, EBONY drain in place MUSCULOSKELETAL: No joint swelling or deformity. EXTREMITIES: No cyanosis, clubbing, or pedal edema. NEUROLOGICAL: Gross neurological examination did not reveal any focal deficits. SKIN: No rashes. no petechiae. - Labs CBC & Chem 7: 11/23/21 04:10 11/23/21 04:10 Labs: Abnormal Lab Results - Last 24 Hours (Table) 11/22/21 11/23/21 11/23/21 Range/Units 18:53 00:50 04:10 WBC (3.8-10.6) k/uL RBC (4.30-5.90) m/uL Hgb (13.0-17.5) gm/dL Hct (39.0-53.0) % MCHC (31.0-37.0) g/dL RDW (11.5-15.5) % Carbon Dioxide 35 H (22-30) mmol/L BUN 51 H (9-20) mg/dL Glucose 144 H (74-99) mg/dL POC Glucose (mg/dL) 136 H 162 H (75-99) mg/dL 11/23/21 11/23/21 Range/Units 04:10 11:59 WBC 15.9 H (3.8-10.6) k/uL RBC 2.57 L (4.30-5.90) m/uL Hgb 7.3 L (13.0-17.5) gm/dL Hct 23.8 L (39.0-53.0) % MCHC 30.7 L (31.0-37.0) g/dL RDW 18.0 H (11.5-15.5) % Carbon Dioxide (22-30) mmol/L BUN (9-20) mg/dL Glucose (74-99) mg/dL POC Glucose (mg/dL) 197 H (75-99) mg/dL Microbiology - Last 24 Hours (Table) 11/22/21 13:20 Gram Stain - Preliminary Pleural Fluid Body Fluid Culture - Preliminary 11/22/21 13:20 Acid Fast Bacilli Culture - Preliminary Pleural Fluid 11/22/21 13:20 Anaerobic Culture - Preliminary Pleural Fluid 11/22/21 13:20 Fungal Culture - Preliminary Pleural Fluid Assessment and Plan Assessment: Bilateral aspiration pneumonia Ischemia of the lateral portion of the stomach and proximal jejunum, status post partial gastrectomy on 10/30 Pneumoperitoneum and upper abdominal abscess status post exploratory laparotomy on and small bowel resection on 11/12 Toxic/metabolic encephalopathy Mostly chronic kidney disease, stage III Developmental delay, was on a jail Plan: This is a pleasant 51 years old male who presents with bowel ischemia status post resection, aspiration pneumonia. Continue with Invanz, fluconazole: Continue with IV Lasix Continue with rectal tube Follow-up recommendation by pulmonary/critical care team, surgery team at the neurologist Labs and medication were reviewed.. Continue same treatment. Continue with symptomatic treatment. Resume home medication. Monitor lytes and vitals. DVT and GI prophylaxis. Further recommendations as per clinical course of the patient Prognosis is extremely guarded
[2021-11-24] MEDS: NOREPINEPHRINE 8 MG in SODIUM CHLORIDE 0.9% 250 ML IV SCH (02:46)
[2021-11-24] MEDS: METOCLOPRAMIDE 5 MG/ML 2 ML VIAL IVP SCH ×5 (02:46→20:07)
[2021-11-24 04:30] LABS: Anisocytosis Slight; HCT 23.9 % (39.0-53.0); HGB 7.6 gm/dL (13.0-17.5); Hypochromasia Moderate; MCH 29.7 pg (25.0-35.0); MCHC 31.6 g/dL (31.0-37.0); MCV 94.1 fL (80.0-100.0); Mean Platelet Volume 8.2; Platelet Count 390 k/uL (150-450); RBC 2.54 m/uL (4.30-5.90); RDW 17.8 % (11.5-15.5)
[2021-11-24 04:47] LABS: African American GFR (CKD) >90 (>60 ml/min/1.73 sqM); Albumin 2.2 g/dL (3.5-5.0); Anion Gap 1 mmol/L; Blood Urea Nitrogen 46 mg/dL (9-20); Calcium 9.7 mg/dL (8.4-10.2); Carbon Dioxide 37 mmol/L (22-30); Chloride 104 mmol/L (98-107); Glucose 145 mg/dL (74-99); Magnesium 2.1 mg/dL (1.6-2.3); Non-African American GFR(CKD) 80 (>60 ml/min/1.73 sqM); Phosphorus 3.2 mg/dL (2.5-4.5); Sodium 142 mmol/L (137-145)
[2021-11-24] MEDS: LORazepam 2 MG/ML INJ IV SCH ×3 (05:32→18:24)
[2021-11-24 05:47] LABS: Glucose,Whole Blood 133 mg/dL (75-99)
[2021-11-24] MEDS: INSULIN ASPART (NovoLOG) 100 UNIT/ML VIAL SQ SCH ×3 (05:59→18:23)
[2021-11-24] MEDS: IPRATROPIUM-ALBUTEROL 3 ML NEB INHALATION SCH ×3 (07:51→19:10)
[2021-11-24] MEDS: FLUCONAZOLE IN NACL,ISO-OSM 400 MG in SALINE 1 200ML.BAG IVPB SCH (09:26)
[2021-11-24] MEDS: ERTAPENEM 1 GM in SODIUM CHLORIDE 0.9% 50 ML IVPB SCH (09:26)
[2021-11-24] MEDS: PANTOPRAZOLE 40 MG/10 ML VIAL IVP SCH ×2 (09:26→20:07)
[2021-11-24] MEDS: FUROSEMIDE 10 MG/ML 4 ML VIAL IV SCH ×2 (09:26→20:07)
--- NOTE | 2021-11-24 09:35 | P.PN ---
Subjective Progress Note Date: 11/23/21 11/23/2021: Patient was seen for a follow-up. Patient's both caregivers were present. Patient is slightly more communicative. He was asking for water. He apparently pulled the NG tube last night. His arm still feels like weights. Patient speaking a few words like "hi". 11/21/2021: Patient was seen for a follow-up. Patient's brother and [id number] were present today. Patient is slightly sleepy, essentially unchanged. Patient is having lot of coffee ground material being suctioned from the stomach. Overall patient clinically unchanged. Not talking much. 11/20/2021: Patient extubated yesterday at around 4 PM. Patient is much more alert. He is still mentally slow, does track. Patient's caregivers including his brother and [id number] were present. He is watching TV, tracks at time. Does not follow much commands. Patient does move his lower extremities, crosses his legs. Patient's nurses reported that he only said once "yes", for pain anywhere, for which he was given Dilaudid. Otherwise he does not follow commands. 11/19/2021: Patient was seen for a follow-up. Patient's brother, and [id number] were present today. Patient is intubated. Patient is off sedation. Patient continues to be severely encephalopathic. Patient is now DO NOT RESUSCITATE. Family is considering extubation and symptomatic treatment. Patient to be DNR/DNI. Objective - Vital Signs Vital signs: Vital Signs Temp 99.4 F 11/24/21 09:00 Pulse 87 11/24/21 09:00 Resp 23 11/24/21 09:00 BP 148/84 11/24/21 09:00 Pulse Ox 96 11/24/21 09:00 Intake & Output 11/23/21 11/24/21 11/24/21 18:59 06:59 18:59 Intake Total 1119 1116 279 Output Total 9673 3905 150 Balance -1236 -1029 129 Weight 73.7 kg Intake: IV 1116 1116 279 Pressure Bag 36 36 9 TPN 1080 1080 270 Intake, IV Titration 3 Amount Potassium Acetate 24 meq 3 Calcium Chloride 0.33 gm Potassium Chloride 30 meq In Amino Acids 5 %/ Dextrose 20 % 1,000 ml @ 90 mls/hr IV .BY DURATION [facility] TO [facility] Rx#:[id number] Output: Gastric Drainage 500 Urine 2355 1645 150 Other: Voiding Method Indwelling Catheter Indwelling Catheter ABP, PAP, CO, CI - Last Documented Arterial Blood Pressure 206/64 - Exam Patient is more alert and awake, still slow mentation, prolonged latency. He does make eye contact, tracks. Patient able to speak "hi". Able to wiggle his hands and feet. Right more than left. Pupils are equal, round and reacting. Face is symmetric. Patient's tone is equal. Reflexes are 3 at the knees, 2 at the right ankle 1 on the left and plantars are downgoing bilaterally. Patient has peripheral edema. Tone is equal bilaterally. Some tremors were noted appears metabolic. - Labs CBC & Chem 7: 11/24/21 04:00 11/24/21 04:00 Labs: Abnormal Lab Results - Last 24 Hours (Table) 11/23/21 11/23/21 11/23/21 Range/Units 11:59 17:48 23:37 WBC (3.8-10.6) k/uL RBC (4.30-5.90) m/uL Hgb (13.0-17.5) gm/dL Hct (39.0-53.0) % RDW (11.5-15.5) % Carbon Dioxide (22-30) mmol/L BUN (9-20) mg/dL Glucose (74-99) mg/dL POC Glucose (mg/dL) 197 H 151 H 173 H (75-99) mg/dL Ionized Calcium Azucena (4.5-5.3) mg/dL Albumin (3.5-5.0) g/dL 11/24/21 11/24/21 11/24/21 Range/Units 04:00 04:00 04:00 WBC 14.0 H (3.8-10.6) k/uL RBC 2.54 L (4.30-5.90) m/uL Hgb 7.6 L (13.0-17.5) gm/dL Hct 23.9 L (39.0-53.0) % RDW 17.8 H (11.5-15.5) % Carbon Dioxide 37 H (22-30) mmol/L BUN 46 H (9-20) mg/dL Glucose 145 H (74-99) mg/dL POC Glucose (mg/dL) (75-99) mg/dL Ionized Calcium Azucena 6.1 H* (4.5-5.3) mg/dL Albumin 2.2 L (3.5-5.0) g/dL 11/24/21 11/24/21 Range/Units 04:45 05:45 WBC (3.8-10.6) k/uL RBC (4.30-5.90) m/uL Hgb (13.0-17.5) gm/dL Hct (39.0-53.0) % RDW (11.5-15.5) % Carbon Dioxide (22-30) mmol/L BUN (9-20) mg/dL Glucose (74-99) mg/dL POC Glucose (mg/dL) 133 H (75-99) mg/dL Ionized Calcium Azucena 6.1 H* (4.5-5.3) mg/dL Albumin (3.5-5.0) g/dL Microbiology - Last 24 Hours (Table) 11/22/21 13:20 Acid Fast Bacilli Smear - Final Pleural Fluid Acid Fast Bacilli Culture - Preliminary 11/22/21 13:20 Gram Stain - Preliminary Pleural Fluid Body Fluid Culture - Preliminary Assessment and Plan Assessment: * Altered mental status, likely due to toxic metabolic encephalopathy. * Status post extubation 11/19/2021. * Generalized weakness, possible due to encephalopathy. Possible some component of critical illness myopathy. Patient has brisk reflexes, therefore no evidence of GBS. 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 * Status post septic shock. * Status post acute kidney injury, improved, but now again worsening. * Episode of hypoglycemia 36 mg/dL) on 11/01/2021 At 12:20 AM. * Diabetes * Hypertension * Anemia * Developmental delay, autism and intellectual impairment. Plan: * Patient is showing slight and slow clinical improvement. * Patient continues to be encephalopathic. Patient has significant toxic metabolic encephalopathy due to reasons mentioned above. * EEG 11/06/2021 revealed moderate background slowing consistent with encephalopathy. No epileptiform activity was seen. * Computed tomography scan of the head on 10/29/2021 and repeat on 11/05/2021 showed no acute process. * Repeat ammonia is normal <9. B12 > 2000, folate 10.9. TSH is normal. * Avoid any episodes of hypoglycemia. * Patient on SCDs for DVT prophylaxis. * Medical management as per IM, critical care, surgery and other specialties. * Discussed with patient's caregivers. * Patient is now DO NOT RESUSCITATE. * Neurology will follow sporadically. Dr. Aldo Downey to resume neurology service from Thursday.
--- NOTE | 2021-11-24 11:01 | P.PN ---
Subjective Progress Note Date: 11/24/21 Principal diagnosis: Abdominal sepsis and septic shock. 11/17/2021, patient is extubated. Noted the patient was extubated successfully yesterday. Post extubation, he became slightly anxious and restless. Based on that, the patient was placed on Precedex which is still running at a dose of 0.4 mcg/kg per minute. Nevertheless, the patient survives extubation and the patient is currently on 6 L O2 nasal cannula and his history quite comfortable. At times, he is still tachypneic. . His cough is weak. He is able to clear his upper or secretions. NG tube is in place. Output has dropped since yesterday and the patient has put out approximately 250 mL of gastric material over the past 12 hours. NG tube remains in place. The patient receiving TPN for nutritional support at the rate of 80 mL an hour and the patient's fluid balance has been negative thallium and 99 mL over the past 24 hours. Noted the patient's white cell count is at 18 with a hemoglobin of 7.1. Sodium is at 137, bicarbonate 24, creatinine is at 1.5 and the patient's abdominal fluid cultures came back positive for E. coli that was resistant to Zosyn. He also has Cortney albicans. No other significant events otherwise for now. He is hemodynamically stable on no pressors. EBONY drains are in place with minimal amount of output at this point in time. He seems to be clinically anxious. No agitation at this point in time. Patient was reevaluated today on 11/18/2021, patient remains in the ICU, intubated and mechanically ventilated. He is on assist control rate of 26, volume 400 FiO2 60% and I cut it down to 50% PEEP is at 5. ABG earlier showed a pO2 of 303 pCO2 47 pH of 7.33 and this was done on on the percent FiO2. Patient remains on norepinephrine at 0.2 mcg/kg/m, he is on propofol at 25 mcg/kg/m. TPN at 80 mL per hour. He is receiving his second unit of packed RBCs this m orn, and he is on IV fluid at 10 mL per hour. Patient is sedated, his peak airway pressure is 19 plateau pressure is 21. Continues to have EBONY drains 2, and he has retention sutures. There is minimal output from his EBONY drains. Patient remains on Invanz and on Diflucan. Cultures from the EBONY d rains/abdominal fluid were positive for Cortney and for E. coli. Bronchial washing cultures positive for Cortney. Patient continues to have leukocytosis with WBC count of 45.9 hemoglobin is 5.7 this morning, and he is receiving.'s of packed RBCs this morning. Chest x-ray continues to show by basilar airspace disease/infiltrates. Highly suspicious for aspiration pneumonia. Reevaluated today on 11/20/2021, patient is now off mechanical ventilation, he was extubated yesterday, and so far he tolerated the extubation quite well. Patient is laying in bed, on 6 L nasal cannula and O2 sats 95%. He is receiving TPN at 80 mL/h, IV fluid at KVO, he is receiving today a unit of packed RBCs for hemoglobin of 6.5 this morning. Patient is nonverbal, but seems to follow very simple instructions like wiggling toes, closing eyes, and squeezing hands. Patient remains on antibiotics, remains on TPN, and I have no plans to transfer the patient out of the ICU. He is not requiring any pressors at this point, but intermittently required a blood transfusion for low hemoglobin. Patient may have ongoing oozing from his surgery, and that is to be addressed by surgery on the case. In the meantime he is also requiring antibiotics, being followed by infectious disease on the case. Chest x-ray today showed small bilateral pleural effusions left more so than right, and some patchy opacities in both lungs bilaterally especially at the base. Reevaluated today on 11/21/2021, patient remains in the ICU, remains off mechanical ventilation, unfortunately the patient continues to require blood transfusion, today he is on his stents units of blood hemoglobin this morning was 6.5. Patient remains on 6 L high flow nasal cannula. Remains on TPN. Remains on antibiotics and antifungal therapy. Chest x-ray is suggestive of left lower lobe atelectasis and possibly a pleural effusion. However the pa tiefady is not in any respiratory distress. Urine output is marginal, IV fluid was added today D5 W at 75 mL/h as his sodium seems to be climbing up a bit up to 146 today. Patient remains nonverbal, he is lethargic, has been following instructions/simple instructions intermittently. WBC count today is 20.6 hemoglobin is 6.5 electrolytes are normal BUN is 69 creatinine 1.40, improving. Reevaluated today on 11/22/21, remains in the ICU, remains on nasal cannula at 6 L/m. O2 saturation is in the mid 90s. Patient seems to be comfortable, however his chest x-ray is showing a good sized left-sided pleural effusion which will be considered for thoracentesis. Ultrasound showed a good sized pocket, I will arrange for consent for thoracentesis from his brother, and likely arrange for thoracentesis on this patient sometime later today. WBC count today is 17.8 hemoglobin is holding at 7.6. Electrolytes are better sodium is down to 145 BUN is down to 57 creatinine is down to 1.18. Pro-calcitonin remains a bit elevated at 1.11. Patient remains on antibiotics and antifungal as per infectious disease on the case. Patient was reevaluated today on 11/23/21, he seems to be improving on a daily basis. Today he is only on 5 L nasal cannula and his O2 sats is 99%. Patient underwent uneventful thoracentesis yesterday. And he continues to do well from the pulmonary perspective. He is still receiving TPN. And he continues to have daily abdominal wound dressing changes, patient still has an open wound with retention sutures. Continues to have EBONY drains draining thick purulent material. However it is minimal. His WBC count is down to 15.9 hemoglobin is holding at 7.3. Electrolytes are normal renal profile showed a BUN of 51 creatinine of 1.25. Pleural effusion seems to be exudative in nature with elevated LDH and elevated total protein. Patient was reevaluated today on 11/24/21, remains in the ICU, however he is still off mechanical ventilation, he is now only on 2 L of oxygen via nasal cannula. Seems to be very comfortable, not in any distress. His hemoglobin is holding, his renal profile is improving, and he remains on TPN. His pleural effusion is negative so far for infection. However it was exudative in nature. So it is likely parapneumonic WBC count today is 14 hemoglobin 7.6 renal profile showed a BUN of 46 creatinine 1.06. Albumin is 2.2. Objective - Vital Signs Vital signs: Vital Signs Temp 99.4 F 11/24/21 09:00 Pulse 81 11/24/21 10:00 Resp 19 11/24/21 10:00 BP 139/75 11/24/21 10:00 Pulse Ox 99 11/24/21 10:00 Intake & Output 11/23/21 11/24/21 11/24/21 18:59 06:59 18:59 Intake Total 1119 1116 522 Output Total 2355 2145 500 Balance -3256 -1029 22 Weight 73.7 kg Intake: IV 1116 1116 472 Fluconazole in NaCl,Iso- 100 Osm 400 mg In Saline 1 200ml.bag @ 100 mls/hr IVPB DAILY ROBERTO Rx#: [id number] Pressure Bag 36 36 12 TPN 1080 1080 360 Intake, IV Titration 3 50 Amount Ertapenem 1 gm In Sodium 50 Chloride 0.9% 50 ml @ 100 mls/hr IVPB DAILY ROBERTO Rx #:[id number] Potassium Acetate 24 meq 3 Calcium Chloride 0.33 gm Potassium Chloride 30 meq In Amino Acids 5 %/ Dextrose 20 % 1,000 ml @ 90 mls/hr IV .BY DURATION ROBERTO Rx#:[id number] Output: Gastric Drainage 500 Urine 2355 1645 500 Other: Voiding Method Indwelling Catheter Indwelling Catheter ABP, PAP, CO, CI - Last Documented Arterial Blood Pressure 206/64 - Exam Physical Exam: Revealed 51-year-old white male , in no distress, on 2 L nasal cannula Head: Atraumatic, normocephalic. HEENT: PERRLA, EOMI, nonicteric, no neck masses, no JVD, Chest: Symmetrical chest expansion, crackles at the bases. Cardiac Exam: [Normal S1 and S2, no S3 gallop, no murmur.] Abdomen: Soft, abdominal dressing is in place, Nontender abdomen. Soft. Diminished bowel sounds. EBONY drain is noted. Abdominal wound remains open with retention sutures in place. Extremities: [No clubbing, trace of edema, no cyanosis, diminished distal pulses bilaterally.. Neurological Exam: Patient is awake, follows very simple instructions, nonverbal. Psychiatric: Blunted mood and affect, follows only simple instructions, heart assessment mental status - Labs CBC & Chem 7: 11/24/21 04:00 11/24/21 04:00 Labs: Abnormal Lab Results - Last 24 Hours (Table) 11/23/21 11/23/21 11/23/21 Range/Units 11:59 17:48 23:37 WBC (3.8-10.6) k/uL RBC (4.30-5.90) m/uL Hgb (13.0-17.5) gm/dL Hct (39.0-53.0) % RDW (11.5-15.5) % Carbon Dioxide (22-30) mmol/L BUN (9-20) mg/dL Glucose (74-99) mg/dL POC Glucose (mg/dL) 197 H 151 H 173 H (75-99) mg/dL Ionized Calcium Azucena (4.5-5.3) mg/dL Albumin (3.5-5.0) g/dL 11/24/21 11/24/21 11/24/21 Range/Units 04:00 04:00 04:00 WBC 14.0 H (3.8-10.6) k/uL RBC 2.54 L (4.30-5.90) m/uL Hgb 7.6 L (13.0-17.5) gm/dL Hct 23.9 L (39.0-53.0) % RDW 17.8 H (11.5-15.5) % Carbon Dioxide 37 H (22-30) mmol/L BUN 46 H (9-20) mg/dL Glucose 145 H (74-99) mg/dL POC Glucose (mg/dL) (75-99) mg/dL Ionized Calcium Azucena 6.1 H* (4.5-5.3) mg/dL Albumin 2.2 L (3.5-5.0) g/dL 11/24/21 11/24/21 Range/Units 04:45 05:45 WBC (3.8-10.6) k/uL RBC (4.30-5.90) m/uL Hgb (13.0-17.5) gm/dL Hct (39.0-53.0) % RDW (11.5-15.5) % Carbon Dioxide (22-30) mmol/L BUN (9-20) mg/dL Glucose (74-99) mg/dL POC Glucose (mg/dL) 133 H (75-99) mg/dL Ionized Calcium Azucena 6.1 H* (4.5-5.3) mg/dL Albumin (3.5-5.0) g/dL Microbiology - Last 24 Hours (Table) 11/22/21 13:20 Acid Fast Bacilli Smear - Final Pleural Fluid Acid Fast Bacilli Culture - Preliminary 11/22/21 13:20 Gram Stain - Preliminary Pleural Fluid Body Fluid Culture - Preliminary Assessment and Plan Assessment: Impression: Acute hypoxic respiratory failure secondary to sepsis, abdominal sepsis, septic shock, and suspect aspiration pneumonia. Status post partial gastrectomy with possible gastric wall ischemia, postoperative day #24 Status post exploratory laparotomy and intra-abdominal abscesses drainage with small bowel resection postoperative day #11 Failed extubation requiring reintubation most likely secondary to aspiration pneumonia. Patient was extubated again on 11/19/2021, has been successful so far. Acute lactic acidosis secondary to sepsis and septic shock. Resolved. Acute kidney injury secondary to sepsis/septic shock. Improving significantly Type 2 diabetes. History of developmental delay and autism. Acute blood loss anemia requiring transfusion, he seemed a total of 10 units of packed RBCs since admission. No blood transfusion given in the last few days. Left pleural effusion, status post thoracentesis with 850 mL of serosanguineous fluid removed on 11/22/2021, cultures on the fluid are negative so far. Recommendation: Patient was extubated on November 19. Continue to monitor in the ICU Continue with the dressing changes and packing of abdominal wound Continue antibiotics and antifungal therapy. Continue nutritional support./TPN. Continue GI and DVT prophylaxis. Continue to monitor hemoglobin Continue to monitor output and input. Continue to monitor abdominal wounds Continue aspiration precautions Continue to monitor renal status, improving. Overall prognosis remains extremely poor and guarded. We'll continue to follow. Time with Patient: Less than 30
[2021-11-24 12:00] LABS: Glucose,Whole Blood 152 mg/dL (75-99)
--- NOTE | 2021-11-24 13:26 | P.PN ---
Subjective Progress Note Date: 11/24/21 Principal diagnosis: Condition unchanged. Clinically resting. Objective - Vital Signs Vital signs: Vital Signs Temp 98.4 F 11/24/21 11:00 Pulse 88 11/24/21 12:55 Resp 20 11/24/21 12:55 BP 131/76 11/24/21 12:00 Pulse Ox 97 11/24/21 12:00 Intake & Output 11/23/21 11/24/21 11/24/21 18:59 06:59 18:59 Intake Total 1119 1116 708 Output Total 2355 2145 1875 Balance -0035 -7067 -5932 Weight 73.7 kg Intake: IV 1116 1116 658 Fluconazole in NaCl,Iso- 100 Osm 400 mg In Saline 1 200ml.bag @ 100 mls/hr IVPB DAILY ROBERTO Rx#: [id number] Pressure Bag 36 36 18 TPN 1080 1080 540 Intake, IV Titration 3 50 Amount Ertapenem 1 gm In Sodium 50 Chloride 0.9% 50 ml @ 100 mls/hr IVPB DAILY ROBERTO Rx #:[id number] Potassium Acetate 24 meq 3 Calcium Chloride 0.33 gm Potassium Chloride 30 meq In Amino Acids 5 %/ Dextrose 20 % 1,000 ml @ 90 mls/hr IV .BY DURATION ROBERTO Rx#:[id number] Output: Gastric Drainage 500 Urine 2355 1645 1875 Other: Voiding Method Indwelling Catheter Indwelling Catheter Indwelling Catheter ABP, PAP, CO, CI - Last Documented Arterial Blood Pressure 206/64 - Labs CBC & Chem 7: 11/24/21 04:00 11/24/21 04:00 Labs: Abnormal Lab Results - Last 24 Hours (Table) 11/23/21 11/23/21 11/24/21 Range/Units 17:48 23:37 04:00 WBC (3.8-10.6) k/uL RBC (4.30-5.90) m/uL Hgb (13.0-17.5) gm/dL Hct (39.0-53.0) % RDW (11.5-15.5) % Carbon Dioxide 37 H (22-30) mmol/L BUN 46 H (9-20) mg/dL Glucose 145 H (74-99) mg/dL POC Glucose (mg/dL) 151 H 173 H (75-99) mg/dL Ionized Calcium Azucena (4.5-5.3) mg/dL Albumin 2.2 L (3.5-5.0) g/dL 11/24/21 11/24/21 11/24/21 Range/Units 04:00 04:00 04:45 WBC 14.0 H (3.8-10.6) k/uL RBC 2.54 L (4.30-5.90) m/uL Hgb 7.6 L (13.0-17.5) gm/dL Hct 23.9 L (39.0-53.0) % RDW 17.8 H (11.5-15.5) % Carbon Dioxide (22-30) mmol/L BUN (9-20) mg/dL Glucose (74-99) mg/dL POC Glucose (mg/dL) (75-99) mg/dL Ionized Calcium Azucena 6.1 H* 6.1 H* (4.5-5.3) mg/dL Albumin (3.5-5.0) g/dL 11/24/21 11/24/21 Range/Units 05:45 11:58 WBC (3.8-10.6) k/uL RBC (4.30-5.90) m/uL Hgb (13.0-17.5) gm/dL Hct (39.0-53.0) % RDW (11.5-15.5) % Carbon Dioxide (22-30) mmol/L BUN (9-20) mg/dL Glucose (74-99) mg/dL POC Glucose (mg/dL) 133 H 152 H (75-99) mg/dL Ionized Calcium Azucena (4.5-5.3) mg/dL Albumin (3.5-5.0) g/dL Microbiology - Last 24 Hours (Table) 11/22/21 13:20 Acid Fast Bacilli Smear - Final Pleural Fluid Acid Fast Bacilli Culture - Preliminary 11/22/21 13:20 Gram Stain - Preliminary Pleural Fluid Body Fluid Culture - Preliminary Assessment and Plan (1) Gastric necrosis Current Visit: Yes Status: Acute Code(s): K31.89 - OTHER DISEASES OF STOMACH AND DUODENUM SNOMED Code(s): 495043514 (2) Ischemic necrosis of small bowel Current Visit: Yes Status: Acute Code(s): K55.029 - ACUTE INFARCTION OF SMALL INTESTINE, EXTENT UNSPECIFIED SNOMED Code(s): 289906038 (3) Tracheostomy dependence Current Visit: Yes Status: Acute Code(s): Z93.0 - TRACHEOSTOMY STATUS SNOMED Code(s): 803615969 (4) Gastrostomy in place Current Visit: Yes Status: Acute Code(s): Z93.1 - GASTROSTOMY STATUS SNOMED Code(s): 858548691 (5) Sepsis Current Visit: Yes Status: Acute Code(s): A41.9 - SEPSIS, UNSPECIFIED ORGANISM SNOMED Code(s): 32308057 (6) Wristdrop Current Visit: No Status: Acute (7) Intra-abdominal abscess Current Visit: Yes Status: Acute Code(s): K65.1 - PERITONEAL ABSCESS SNOMED Code(s): 14240786
--- NOTE | 2021-11-24 15:59 | P.PN ---
Subjective From the records, patient could not provide information Patient was admitted for nausea vomiting diarrhea believed to have gastroenteritis. Patient continued to have vomiting and started having abdominal tenderness because of which CT of the abdomen was obtained which showed pneumatosis coli along with some gas in the venous system concern for is chemic bowel. Patient was started on Zosyn. Patient subsequently decompensated patient became hypotensive with BP of 60/40 transferred to ICU patient was given 3 L of boluses of IV fluid NG tube was placed which showed bloody output . Patient in septic shock and receiving norepinephrine at this time. Recent echo showed normal ejection fraction. Patient had CTA of the chest which was negative for pulmonary embolism patient creatinine has worsened and went up to 2.80 today from 1.14 yesterday and this is secondary to acute tubular necrosis from sepsis and septic shock. Patient does have lactic acidosis, patient does have lactic acidosis with lactic acidosis 7.5. Patient will be given 1 L of IV fluids continue pressor support. he is intubated and sedated. 10/31/2021 Patient is started having urine output. Patient underwent a arthrotomy yesterday and found to have ischemia of the lateral portion of the stomach and ischemia of the proximal jejunum patient underwent partial gastrectomy. Patient is presently on that to pressors maximized on norepinephrine, patient is also on vasopressin receiving albumin, IV fluids started having minimal urine output patient was anuric last night. Patient's chloride is highly elevated leading to metabolic acidosis patient also has an anion gap metabolic acidosis from lactic acidosis which appears to be improving at this time patient's overall clinical condition is guarded and the prognosis is poor. Patient Y blood cell count went down in fact patient is neutropenic now. Patient is presently not receiving any nutrition at this time. 11/18/2021 Patient is seen and evaluated in follow up this morning and continues to be in the ICU and was reintubated again this morning. Chest xray shows CHF and pleural effusions as previously noted. No evidence of pneumothorax. Patient continues with an FI02 of 50% and peep is 5. Patient continues on sedation. Patient to continue with IV antibiotics and also antifungals. WBC is elevated. Per nursing staff, hemoglobin is 5.9 and bleeding from NG tube. Patient to receive 2 units of PRBC. 11/19/2021 Patient is seen in follow-up this morning closely monitored with multiple medical consultations following. Patient continues on mechanical vent with an FiO2 of 35% and PEEP is 5. Patient's hemoglobin is 6.7 today and continues with bleeding noted in the NG tube. Patient is to receive another unit of PRBCs and will continue to monitor hemoglobin and bleeding closely. Weaning parameters are continuously being assessed and possible extubation in the next day or so per pulmonary. Brother at the bedside and is agreeable with no CODE STATUS and no further intubations as patient has been also intubated multiple times this admission and continues to deteriorate. Chest x-ray today shows persistent bilateral infiltrates with pleural effusions greater on the left and correlate for pneumonia versus CHF. Kidney functions slightly worsening as well and trending up. WBC continues to be elevated and patient is maintained on IV antibiotics. 11/20/2021 Patient is seen in follow-up today continues to be in the ICU with multiple medical consultations following. Patient was recently extubated yesterday and currently maintained on 6 L nasal cannula. patient continues to have GI bleeding with NG tube noted to have bleeding along with dark maroon stools noted. Hemoglobin is 6.5 today and will be receiving a unit of PRBC. WBC remains elevated and continues on IV antibiotics. Patient is nonverbal but follows simple commands. Continues to be in critical condition. To continue with NG tube and TPN for now. Surgery following as well. Today note 11/21/2021 Patient with past medical history of developmental delay living in a residential presents to the hospital on 10/29 from his residential after a fall and suspected syncope. On admission he was AAO 1. Patient has prolonged hospitalization since then for more than 3 weeks. Today is lying in the bed in the ICU, unresponsive and does not follow command and does not answer questions. He is been followed by several consultants including neurologist, project geologist/critical care team and surgery team. He is a status post exploratory laparotomy and surgical resection of part of the stomach and proximal jejunum secondary to ischemic changes and drainage of the adjacent abscess. He has evidence of persistent bilateral pneumonia and kept on Invanz and fluconazole with body fluid culture showing E. coli and Cortney and chest x-ray showing evidence of bilateral infiltrates read also seen on CT of the abdomen, pelvis and chest without contrast: Bilateral pulmonary consolidation and bilateral pleural effusion. He had negative CT of the brain and ejection fraction 60-65%. His receiving TPN and on Lasix 40 mg twice daily. Labs showing leukocytosis of 20, hemoglobin 6.5, sodium 146, creatinine 1.4 with evidence mostly indicating chronic kidney disease stage III. Also history of chronic fever of 100.6 and saturating low 90s on 4 L/m of oxygen. 11/22/2021 Patient remains in the ICU, he is more awake today, he looks at me if I called in by his name however he fails to follow commands, when I asked him if he is in pain he moves his hands little bit on his abdomen, not sure what does not mean exactly. His oxygen requirement slightly worse up to 5 L/m but today he is afebrile. Labs showing slightly improving leukocytosis at 17.8, hemoglobin improved 7.6, sodium 145 and creatinine came down to 1.18. Test x-ray showing decreased left pleural effusion with bilateral consolidation and nodular density in the prior left perihilar region. Patient remains on Invanz, fluconazole, IV Lasix as well as TPN. His wound edges slightly open with gauze soaked but there is no purulent discharge, EBONY drain and place. Rectal tube in place with no blood in it. Zepeda catheter is in place. 11/23/2021 Patient is a status post left thoracocentesis yesterday with a 20 mm of fluid taken out. Today he is more awake and comfortable, he looks at me when I talked to him but he does not follow commands and he does not answer questions. NG tube with green discharge, he has some black stool. EBONY drains with minimal discharge when I examine him, surgical wound is stable. Patient still has PICC line with TPN running. Vitals and labs looked the same, however oxygen is slightly worse with requirement went up from 5-6 L per minute and chest x-ray showing right lower lobe evolving pneumonia however patient remains on the same antibiotics with invanz and fluconazole. Also he is on IV Lasix and TPN 11/24/2021 Patient mentation it's looks the same for the last couple days. No other new complaint. He slightly more tachypneic today. No chest pain or abdominal pain, distal does not follow commands or answer questions. EBONY drain in place and surgery team are following the patient closely. TPN is running and PICC line is in place. Surgical wound looks stable. Rectal tube in place as well. Patient continued with the same treatment of Invanz, fluconazole and Lasix 40 mg IV twice a day Objective - Vital Signs Vital signs: Vital Signs Temp 98.4 F 11/24/21 11:00 Pulse 80 11/24/21 11:00 Resp 21 11/24/21 11:00 BP 133/74 11/24/21 11:00 Pulse Ox 100 11/24/21 11:00 Intake & Output 11/23/21 11/24/21 11/24/21 18:59 06:59 18:59 Intake Total 1119 1116 585 Output Total 2355 2145 1600 Balance -9216 -1029 -1015 Weight 73.7 kg Intake: IV 1116 1116 535 Fluconazole in NaCl,Iso- 100 Osm 400 mg In Saline 1 200ml.bag @ 100 mls/hr IVPB DAILY [facility] Rx#: [id number] Pressure Bag 36 36 15 TPN 1080 1080 420 Intake, IV Titration 3 50 Amount Ertapenem 1 gm In Sodium 50 Chloride 0.9% 50 ml @ 100 mls/hr IVPB DAILY [facility] Rx #:[id number] Potassium Acetate 24 meq 3 Calcium Chloride 0.33 gm Potassium Chloride 30 meq In Amino Acids 5 %/ Dextrose 20 % 1,000 ml @ 90 mls/hr IV .BY DURATION [facility] Rx#:[id number] Output: Gastric Drainage 500 Urine 2355 1645 1600 Other: Voiding Method Indwelling Catheter Indwelling Catheter Indwelling Catheter ABP, PAP, CO, CI - Last Documented Arterial Blood Pressure 206/64 - Exam -GENERAL: The patient is awake but does not answer questions,, does not follow commands, does not look in distress. HEENT: Pupils are round and equally reacting to light. EOMI. No scleral icterus. No conjunctival pallor. Normocephalic, atraumatic. No pharyngeal erythema. No thyromegaly. CARDIOVASCULAR: S1 and S2 present. No murmurs, rubs, or gallops. -PULMONARY: Chest is clear to auscultation, no wheezing . Bilateral crepitation and decreased breath sounds -ABDOMEN: Soft, nontender, nondistended, normoactive bowel sounds. No palpable organomegaly. Surgical wound slightly open at the ages with no purulent discharge, EBONY drain in place MUSCULOSKELETAL: No joint swelling or deformity. EXTREMITIES: No cyanosis, clubbing, or pedal edema. NEUROLOGICAL: Gross neurological examination did not reveal any focal deficits. SKIN: No rashes. no petechiae. - Labs CBC & Chem 7: 11/24/21 04:00 11/24/21 04:00 Labs: Abnormal Lab Results - Last 24 Hours (Table) 11/23/21 11/23/21 11/24/21 Range/Units 17:48 23:37 04:00 WBC (3.8-10.6) k/uL RBC (4.30-5.90) m/uL Hgb (13.0-17.5) gm/dL Hct (39.0-53.0) % RDW (11.5-15.5) % Carbon Dioxide 37 H (22-30) mmol/L BUN 46 H (9-20) mg/dL Glucose 145 H (74-99) mg/dL POC Glucose (mg/dL) 151 H 173 H (75-99) mg/dL Ionized Calcium Azucena (4.5-5.3) mg/dL Albumin 2.2 L (3.5-5.0) g/dL 11/24/21 11/24/21 11/24/21 Range/Units 04:00 04:00 04:45 WBC 14.0 H (3.8-10.6) k/uL RBC 2.54 L (4.30-5.90) m/uL Hgb 7.6 L (13.0-17.5) gm/dL Hct 23.9 L (39.0-53.0) % RDW 17.8 H (11.5-15.5) % Carbon Dioxide (22-30) mmol/L BUN (9-20) mg/dL Glucose (74-99) mg/dL POC Glucose (mg/dL) (75-99) mg/dL Ionized Calcium Azucena 6.1 H* 6.1 H* (4.5-5.3) mg/dL Albumin (3.5-5.0) g/dL 11/24/21 11/24/21 Range/Units 05:45 11:58 WBC (3.8-10.6) k/uL RBC (4.30-5.90) m/uL Hgb (13.0-17.5) gm/dL Hct (39.0-53.0) % RDW (11.5-15.5) % Carbon Dioxide (22-30) mmol/L BUN (9-20) mg/dL Glucose (74-99) mg/dL POC Glucose (mg/dL) 133 H 152 H (75-99) mg/dL Ionized Calcium Azucena (4.5-5.3) mg/dL Albumin (3.5-5.0) g/dL Microbiology - Last 24 Hours (Table) 11/22/21 13:20 Acid Fast Bacilli Smear - Final Pleural Fluid Acid Fast Bacilli Culture - Preliminary 11/22/21 13:20 Gram Stain - Preliminary Pleural Fluid Body Fluid Culture - Preliminary Assessment and Plan Assessment: Bilateral aspiration pneumonia Ischemia of the lateral portion of the stomach and proximal jejunum, status post partial gastrectomy on 10/30 Pneumoperitoneum and upper abdominal abscess status post exploratory laparotomy on and small bowel resection on 11/12 Toxic/metabolic encephalopathy Mostly chronic kidney disease, stage III Developmental delay, was on a residential Plan: This is a pleasant 51 years old male who presents with bowel ischemia status post resection, aspiration pneumonia. Continue with Invanz, fluconazole: Continue with IV Lasix Continue with rectal tube Follow-up recommendation by pulmonary/critical care team, surgery team at the neurologist Labs and medication were reviewed.. Continue same treatment. Continue with symptomatic treatment. Resume home medication. Monitor lytes and vitals. DVT and GI prophylaxis. Further recommendations as per clinical course of the patient Prognosis is extremely guarded
[2021-11-24] MEDS: HYDROPHILIC CREAM 180 GM TUBE TOPICAL SCH (17:05)
[2021-11-24 18:21] LABS: Glucose,Whole Blood 138 mg/dL (75-99)
[2021-11-24] MEDS: 1: MVI, ADULT NO.4 WITH VIT K 10 ML, TRACE (CONC-1ML/DOSE) 1 ML, POTASSIUM ACETATE 20 ME IV SCH ×10 (20:20→22:37)
[2021-11-24 23:28] LABS: Glucose,Whole Blood 139 mg/dL (75-99)
--- NOTE | 2021-11-24 23:50 | P.PN ---
Subjective Progress Note Date: 11/24/21 11/24/2021: Patient is alert and awake, slow mentation. Patient's caregiver present. Patient moves his extremities. No new complaints. 11/23/2021: Patient was seen for a follow-up. Patient's both caregivers were present. Patient is slightly more communicative. He was asking for water. He apparently pulled the NG tube last night. His arm still feels like weights. Patient speaking a few words like "hi". 11/21/2021: Patient was seen for a follow-up. Patient's brother and xvxaudp-ko-fee were present today. Patient is slightly sleepy, essentially unchanged. Patient is having lot of coffee ground material being suctioned from the stomach. Overall patient clinically unchanged. Not talking much. 11/20/2021: Patient extubated yesterday at around 4 PM. Patient is much more alert. He is still mentally slow, does track. Patient's caregivers including his brother and [id number] were present. He is watching TV, tracks at time. Does not follow much commands. Patient does move his lower extremities, crosses his legs. Patient's nurses reported that he only said once "yes", for p ain anywhere, for which he was given Dilaudid. Otherwise he does not follow commands. 11/19/2021: Patient was seen for a follow-up. Patient's brother, and [id number] were present today. Patient is intubated. Patient is off sedation. Patient continues to be severely encephalopathic. Patient is now DO NOT RESUSCITATE. Family is considering extubation and symptomatic treatment. Patient to be DNR/DNI. Objective - Vital Signs Vital signs: Vital Signs Temp 99.1 F 11/24/21 20:00 Pulse 84 11/24/21 23:00 Resp 22 11/24/21 23:00 BP 134/74 11/24/21 23:00 Pulse Ox 96 11/24/21 23:00 Intake & Output 11/24/21 11/24/21 11/25/21 06:59 18:59 06:59 Intake Total 1116 1266 465 Output Total 2136 7778 886 Balance -1029 -989 -415 Weight 73.7 kg Intake: IV 1116 1216 465 Fluconazole in NaCl,Iso- 100 Osm 400 mg In Saline 1 200ml.bag @ 100 mls/hr IVPB DAILY [facility] Rx#: [id number] Pressure Bag 36 36 15 TPN 1080 1080 450 Intake, IV Titration 50 Amount Ertapenem 1 gm In Sodium 50 Chloride 0.9% 50 ml @ 100 mls/hr IVPB DAILY [facility] Rx #:[id number] Output: Gastric Drainage 500 Drainage 10 Left Abdomen 5 Right Abdomen 5 Urine 1645 2255 870 Other: Voiding Method Indwelling Catheter Indwelling Catheter Indwelling Catheter ABP, PAP, CO, CI - Last Documented Arterial Blood Pressure 151/68 - Exam Patient is more alert and awake, still slow mentation, prolonged latency. He does make eye contact, tracks. I did see patient moves his leg and arms. Patient's tone is equal. Reflexes are 3 at the knees, 2 at the right ankle 1 on the left and plantars are downgoing bilaterally. Patient has peripheral edema. Tone is equal bilaterally. Some tremors were noted appears metabolic. - Labs CBC & Chem 7: 11/24/21 04:00 11/24/21 04:00 Labs: Abnormal Lab Results - Last 24 Hours (Table) 11/24/21 11/24/21 11/24/21 Range/Units 04:00 04:00 04:00 WBC 14.0 H (3.8-10.6) k/uL RBC 2.54 L (4.30-5.90) m/uL Hgb 7.6 L (13.0-17.5) gm/dL Hct 23.9 L (39.0-53.0) % RDW 17.8 H (11.5-15.5) % Carbon Dioxide 37 H (22-30) mmol/L BUN 46 H (9-20) mg/dL Glucose 145 H (74-99) mg/dL POC Glucose (mg/dL) (75-99) mg/dL Ionized Calcium Azucena 6.1 H* (4.5-5.3) mg/dL Albumin 2.2 L (3.5-5.0) g/dL 11/24/21 11/24/21 11/24/21 Range/Units 04:45 05:45 11:58 WBC (3.8-10.6) k/uL RBC (4.30-5.90) m/uL Hgb (13.0-17.5) gm/dL Hct (39.0-53.0) % RDW (11.5-15.5) % Carbon Dioxide (22-30) mmol/L BUN (9-20) mg/dL Glucose (74-99) mg/dL POC Glucose (mg/dL) 133 H 152 H (75-99) mg/dL Ionized Calcium Azucena 6.1 H* (4.5-5.3) mg/dL Albumin (3.5-5.0) g/dL 11/24/21 11/24/21 Range/Units 18:19 23:26 WBC (3.8-10.6) k/uL RBC (4.30-5.90) m/uL Hgb (13.0-17.5) gm/dL Hct (39.0-53.0) % RDW (11.5-15.5) % Carbon Dioxide (22-30) mmol/L BUN (9-20) mg/dL Glucose (74-99) mg/dL POC Glucose (mg/dL) 138 H 139 H (75-99) mg/dL Ionized Calcium Azucena (4.5-5.3) mg/dL Albumin (3.5-5.0) g/dL Microbiology - Last 24 Hours (Table) 11/22/21 13:20 Gram Stain - Preliminary Pleural Fluid Body Fluid Culture - Preliminary 11/22/21 13:20 Acid Fast Bacilli Smear - Final Pleural Fluid Acid Fast Bacilli Culture - Preliminary Assessment and Plan Assessment: * Altered mental status, likely due to toxic metabolic encephalopathy. * Status post extubation 11/19/2021. * Generalized weakness, possible due to encephalopathy. Possible some component of critical illness myopathy. Patient has brisk reflexes, therefore no evidence of GBS. 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 * Status post septic shock. * Status post acute kidney injury, improved, but now again worsening. * Episode of hypoglycemia 36 mg/dL) on 11/01/2021 At 12:20 AM. * Diabetes * Hypertension * Anemia * Developmental delay, autism and intellectual impairment. Plan: * Patient is showing slight and slow clinical improvement. * Patient continues to be encephalopathic. Patient has significant toxic metabolic encephalopathy due to reasons mentioned above. * EEG 11/06/2021 revealed moderate background slowing consistent with encephalopathy. No epileptiform activity was seen. * Computed tomography scan of the head on 10/29/2021 and repeat on 11/05/2021 showed no acute process. * Repeat ammonia is normal <9. B12 > 2000, folate 10.9. TSH is normal. * Avoid any episodes of hypoglycemia. * Patient on SCDs for DVT prophylaxis. * Medical management as per IM, critical care, surgery and other specialties. * Discussed with patient's caregivers. * Patient is now DO NOT RESUSCITATE. * Neurology will sign off. Please reconsult neurology if any concerns.
[2021-11-25] MEDS: INSULIN ASPART (NovoLOG) 100 UNIT/ML VIAL SQ SCH ×5 (00:06→23:38)
[2021-11-25] MEDS: LORazepam 2 MG/ML INJ IV SCH ×4 (00:06→18:41)
[2021-11-25] MEDS: NOREPINEPHRINE 8 MG in SODIUM CHLORIDE 0.9% 250 ML IV SCH (00:19)
[2021-11-25] MEDS: METOCLOPRAMIDE 5 MG/ML 2 ML VIAL IVP SCH ×4 (02:44→20:09)
[2021-11-25 04:55] LABS: Anisocytosis Slight; HGB 7.4 gm/dL (13.0-17.5); Hypochromasia Moderate; MCH 29.5 pg (25.0-35.0); MCHC 30.9 g/dL (31.0-37.0); MCV 95.2 fL (80.0-100.0); Platelet Count 371 k/uL (150-450); RBC 2.53 m/uL (4.30-5.90); RDW 17.5 % (11.5-15.5); WBC 12.8 k/uL (3.8-10.6)
[2021-11-25 05:14] LABS: Calcium 9.3 mg/dL (8.4-10.2); Magnesium 1.8 mg/dL (1.6-2.3)
[2021-11-25] MEDS: IPRATROPIUM-ALBUTEROL 3 ML NEB INHALATION SCH ×3 (08:43→20:34)
[2021-11-25] MEDS: FUROSEMIDE 10 MG/ML 4 ML VIAL IV SCH ×2 (09:27→20:59)
[2021-11-25] MEDS: PANTOPRAZOLE 40 MG/10 ML VIAL IVP SCH ×2 (09:28→20:59)
[2021-11-25] MEDS: FLUCONAZOLE IN NACL,ISO-OSM 400 MG in SALINE 1 200ML.BAG IVPB SCH (09:29)
[2021-11-25] MEDS: MAGNESIUM SULFATE-D5W PMX 1 GM in DEXTROSE/WATER 1 100ML.BAG IVPB SCH ×2 (09:29→11:27)
[2021-11-25] MEDS: ERTAPENEM 1 GM in SODIUM CHLORIDE 0.9% 50 ML IVPB SCH (09:29)
[2021-11-25] MEDS: HYDROPHILIC CREAM 180 GM TUBE TOPICAL SCH (09:30)
[2021-11-25 11:42] LABS: Glucose,Whole Blood 153 mg/dL (75-99)
[2021-11-25] MEDS: SCOPOLAMINE 1 MG/72 HR PATCH TRANSDERM SCH (12:32)
--- NOTE | 2021-11-25 13:54 | XR ---
Abdomen HISTORY: NG tube placement frontal view the abdomen is submitted on 2 images NG tube is present with the tip in the right upper quadrant coursing from the level of the GE junctio n in a curvilinear fashion. Lung bases show some probable atelectasis. No evident pneumoperitoneum. T here are overlying artifacts. Suspect there are drains present. The entire abdomen is not included on exam. Degenerative disc changes are present in the visualized spine. IMPRESSION: NG tube within the abdomen as described. Probable basilar atelectasis.
--- NOTE | 2021-11-25 14:34 | P.PN ---
Subjective Progress Note Date: 11/25/21 CHIEF COMPLAINT: Abdominal pain HISTORY OF PRESENT ILLNES: Patient in the ICU he is on room air. Patient is more alert and awake. He did have a temp of 100.3 this morning. White count trending down from 14-12.8. He has bilious output through the NG tube of about 450 mL through the night. EBONY drains with minimal purulent output. Patient has had brown stools. Does have fecal management system so in place. No further blood noted in the NG tube. PHYSICAL EXAM: VITAL SIGNS: Reviewed. GENERAL: Patient is more awake and responsive. He does say a few words. HEENT: Moist buccal mucosa. Head is atraumatic, normocephalic. ABDOMEN: Soft. Nondistended. Abdominal incision is open and packed with gauze with minimal serosanguineous drainage. Retention sutures in place. ASSESSMENT: 1. Pneumoperitoneum, suspected gastric leak and section of proximal jejunum with ischemic changes status post exploratory laparotomy, drainage of upper abdominal abscess, lysis of adhesions and small bowel resection on 11/12/21 2. Ischemia of the lateral portion of the stomach and mild ischemia of the pr oximal jejunum status post exploratory laparotomy and partial gastrectomy on 10/30/21 3. Septic shock 4. Postoperative ileus resolved 5. Thrombocytopenia resolved 6. Possible aspiration pneumonia 7. Anemia 8. Left Pleural effusion status post thoracentesis PLAN: -Consult speech therapy for swallow evaluation -Check abdominal x-ray for placement of NG tube -Continue ICU management -Continue supportive care -Continue local wound care -Continue to monitor hemoglobin -Continue NG tube for decompression -Continue to monitor EBONY drain output -Keep patient nothing by mouth until evaluated by speech therapy -Continue antibiotics -Continue TPN for nutrition support -CODE STATUS DO NOT RESUSCITATE/DO NOT INTUBATE Physician Spoon Maker note has been reviewed by physician. Signing provider agrees with the documented findings, assessment, and plan of care. Objective - Vital Signs Vital signs: Vital Signs Temp 98.9 F 11/25/21 12:00 Pulse 78 11/25/21 13:00 Resp 23 11/25/21 13:00 BP 132/76 11/25/21 13:00 Pulse Ox 95 11/25/21 13:00 Intake & Output 11/24/21 11/25/21 11/25/21 18:59 06:59 18:59 Intake Total 1266 1336 1215 Output Total 2255 1935 1100 Balance -989 -599 115 Weight 73 kg Intake: IV 1216 1336 1215 Ertapenem 1 gm In Sodium 50 Chloride 0.9% 50 ml @ 100 mls/hr IVPB DAILY [facility] Rx #:[id number] Fluconazole in NaCl,Iso- 100 200 Osm 400 mg In Saline 1 200ml.bag @ 100 mls/hr IVPB DAILY [facility] Rx#: [id number] Pressure Bag 36 36 15 Sodium Chloride 0.9% 1, 220 120 000 ml @ 20 mls/hr IV . Q24H [facility] Rx#:[id number] TPN 1080 1080 630 magnesium 200 Intake, IV Titration 50 Amount Ertapenem 1 gm In Sodium 50 Chloride 0.9% 50 ml @ 100 mls/hr IVPB DAILY [facility] Rx #:[id number] Output: Gastric Drainage 450 Drainage 10 Left Abdomen 5 Right Abdomen 5 Urine 2255 1475 1100 Other: Voiding Method Indwelling Catheter Indwelling Catheter Indwelling Catheter ABP, PAP, CO, CI - Last Documented Arterial Blood Pressure 159/66 - Labs CBC & Chem 7: 11/25/21 04:45 11/25/21 04:35 Labs: Abnormal Lab Results - Last 24 Hours (Table) 11/24/21 11/24/21 11/25/21 Range/Units 18:19 23:26 04:35 WBC (3.8-10.6) k/uL RBC (4.30-5.90) m/uL Hgb (13.0-17.5) gm/dL Hct (39.0-53.0) % MCHC (31.0-37.0) g/dL RDW (11.5-15.5) % Carbon Dioxide 35 H (22-30) mmol/L BUN 48 H (9-20) mg/dL Glucose 129 H (74-99) mg/dL POC Glucose (mg/dL) 138 H 139 H (75-99) mg/dL 11/25/21 11/25/21 Range/Units 04:45 11:41 WBC 12.8 H (3.8-10.6) k/uL RBC 2.53 L (4.30-5.90) m/uL Hgb 7.4 L (13.0-17.5) gm/dL Hct 24.0 L (39.0-53.0) % MCHC 30.9 L (31.0-37.0) g/dL RDW 17.5 H (11.5-15.5) % Carbon Dioxide (22-30) mmol/L BUN (9-20) mg/dL Glucose (74-99) mg/dL POC Glucose (mg/dL) 153 H (75-99) mg/dL Microbiology - Last 24 Hours (Table) 11/11/21 12:30 Acid Fast Bacilli Smear - Final Bronchial Washings - Random Acid Fast Bacilli Culture - Preliminary 11/11/21 12:00 Acid Fast Bacilli Smear - Final Bronchial Washings - Random Acid Fast Bacilli Culture - Preliminary 11/22/21 13:20 Anaerobic Culture - Preliminary Pleural Fluid 11/22/21 13:20 Gram Stain - Preliminary Pleural Fluid Body Fluid Culture - Preliminary
--- NOTE | 2021-11-25 16:23 | P.PN ---
Subjective From the records, patient could not provide information Patient was admitted for nausea vomiting diarrhea believed to have gastroenteritis. Patient continued to have vomiting and started having abdominal tenderness because of which CT of the abdomen was obtained which showed pneumatosis coli along with some gas in the venous system concern for is chemic bowel. Patient was started on Zosyn. Patient subsequently decompensated patient became hypotensive with BP of 60/40 transferred to ICU patient was given 3 L of boluses of IV fluid NG tube was placed which showed bloody output . Patient in septic shock and receiving norepinephrine at this time. Recent echo showed normal ejection fraction. Patient had CTA of the chest which was negative for pulmonary embolism patient creatinine has worsened and went up to 2.80 today from 1.14 yesterday and this is secondary to acute tubular necrosis from sepsis and septic shock. Patient does have lactic acidosis, patient does have lactic acidosis with lactic acidosis 7.5. Patient will be given 1 L of IV fluids continue pressor support. he is intubated and sedated. 10/31/2021 Patient is started having urine output. Patient underwent a arthrotomy yesterday and found to have ischemia of the lateral portion of the stomach and ischemia of the proximal jejunum patient underwent partial gastrectomy. Patient is presently on that to pressors maximized on norepinephrine, patient is also on vasopressin receiving albumin, IV fluids started having minimal urine output patient was anuric last night. Patient's chloride is highly elevated leading to metabolic acidosis patient also has an anion gap metabolic acidosis from lactic acidosis which appears to be improving at this time patient's overall clinical condition is guarded and the prognosis is poor. Patient Y blood cell count went down in fact patient is neutropenic now. Patient is presently not receiving any nutrition at this time. 11/18/2021 Patient is seen and evaluated in follow up this morning and continues to be in the ICU and was reintubated again this morning. Chest xray shows CHF and pleural effusions as previously noted. No evidence of pneumothorax. Patient continues with an FI02 of 50% and peep is 5. Patient continues on sedation. Patient to continue with IV antibiotics and also antifungals. WBC is elevated. Per nursing staff, hemoglobin is 5.9 and bleeding from NG tube. Patient to receive 2 units of PRBC. 11/19/2021 Patient is seen in follow-up this morning closely monitored with multiple medical consultations following. Patient continues on mechanical vent with an FiO2 of 35% and PEEP is 5. Patient's hemoglobin is 6.7 today and continues with bleeding noted in the NG tube. Patient is to receive another unit of PRBCs and will continue to monitor hemoglobin and bleeding closely. Weaning parameters are continuously being assessed and possible extubation in the next day or so per pulmonary. Brother at the bedside and is agreeable with no CODE STATUS and no further intubations as patient has been also intubated multiple times this admission and continues to deteriorate. Chest x-ray today shows persistent bilateral infiltrates with pleural effusions greater on the left and correlate for pneumonia versus CHF. Kidney functions slightly worsening as well and trending up. WBC continues to be elevated and patient is maintained on IV antibiotics. 11/20/2021 Patient is seen in follow-up today continues to be in the ICU with multiple medical consultations following. Patient was recently extubated yesterday and currently maintained on 6 L nasal cannula. patient continues to have GI bleeding with NG tube noted to have bleeding along with dark maroon stools noted. Hemoglobin is 6.5 today and will be receiving a unit of PRBC. WBC remains elevated and continues on IV antibiotics. Patient is nonverbal but follows simple commands. Continues to be in critical condition. To continue with NG tube and TPN for now. Surgery following as well. Today note 11/21/2021 Patient with past medical history of developmental delay living in a fpc presents to the hospital on 10/29 from his fpc after a fall and suspected syncope. On admission he was AAO 1. Patient has prolonged hospitalization since then for more than 3 weeks. Today is lying in the bed in the ICU, unresponsive and does not follow command and does not answer questions. He is been followed by several consultants including neurologist, residential aide/critical care team and surgery team. He is a status post exploratory laparotomy and surgical resection of part of the stomach and proximal jejunum secondary to ischemic changes and drainage of the adjacent abscess. He has evidence of persistent bilateral pneumonia and kept on Invanz and fluconazole with body fluid culture showing E. coli and Cortney and chest x-ray showing evidence of bilateral infiltrates read also seen on CT of the abdomen, pelvis and chest without contrast: Bilateral pulmonary consolidation and bilateral pleural effusion. He had negative CT of the brain and ejection fraction 60-65%. His receiving TPN and on Lasix 40 mg twice daily. Labs showing leukocytosis of 20, hemoglobin 6.5, sodium 146, creatinine 1.4 with evidence mostly indicating chronic kidney disease stage III. Also history of chronic fever of 100.6 and saturating low 90s on 4 L/m of oxygen. 11/22/2021 Patient remains in the ICU, he is more awake today, he looks at me if I called in by his name however he fails to follow commands, when I asked him if he is in pain he moves his hands little bit on his abdomen, not sure what does not mean exactly. His oxygen requirement slightly worse up to 5 L/m but today he is afebrile. Labs showing slightly improving leukocytosis at 17.8, hemoglobin improved 7.6, sodium 145 and creatinine came down to 1.18. Test x-ray showing decreased left pleural effusion with bilateral consolidation and nodular density in the prior left perihilar region. Patient remains on Invanz, fluconazole, IV Lasix as well as TPN. His wound edges slightly open with gauze soaked but there is no purulent discharge, EBONY drain and place. Rectal tube in place with no blood in it. Zepeda catheter is in place. 11/23/2021 Patient is a status post left thoracocentesis yesterday with a 20 mm of fluid taken out. Today he is more awake and comfortable, he looks at me when I talked to him but he does not follow commands and he does not answer questions. NG tube with green discharge, he has some black stool. EBONY drains with minimal discharge when I examine him, surgical wound is stable. Patient still has PICC line with TPN running. Vitals and labs looked the same, however oxygen is slightly worse with requirement went up from 5-6 L per minute and chest x-ray showing right lower lobe evolving pneumonia however patient remains on the same antibiotics with invanz and fluconazole. Also he is on IV Lasix and TPN 11/24/2021 Patient mentation it's looks the same for the last couple days. No other new complaint. He slightly more tachypneic today. No chest pain or abdominal pain, distal does not follow commands or answer questions. EBONY drain in place and surgery team are following the patient closely. TPN is running and PICC line is in place. Surgical wound looks stable. Rectal tube in place as well. Patient continued with the same treatment of Invanz, fluconazole and Lasix 40 mg IV twice a day 11/25/2021 No much difference clinically from yesterday, he still encephalopathy per neurologist however neurology service signed off as this is looks chronic. Patient NG tube is recommended to be discontinued today and undergo a swallow evaluation to assess nutrition capability Distal getting TPN through his PICC line, surgical wound is healing and EBONY drains are in place with no worsening discharge. He remains on Invanz and fluconazole and IV Lasix Objective - Vital Signs Vital signs: Vital Signs Temp 98.4 F 11/25/21 08:00 Pulse 66 11/25/21 11:00 Resp 19 11/25/21 11:00 BP 143/78 11/25/21 11:00 Pulse Ox 95 11/25/21 11:00 Intake & Output 11/24/21 11/25/21 11/25/21 18:59 06:59 18:59 Intake Total 1266 1336 562 Output Total 2255 1935 650 Balance -989 -599 -88 Weight 73 kg Intake: IV 1216 1336 562 Fluconazole in NaCl,Iso- 100 Osm 400 mg In Saline 1 200ml.bag @ 100 mls/hr IVPB DAILY [facility] Rx#: [id number] Pressure Bag 36 36 12 Sodium Chloride 0.9% 1, 220 100 000 ml @ 20 mls/hr IV . Q24H [facility] Rx#:[id number] TPN 1080 1080 450 Intake, IV Titration 50 Amount Ertapenem 1 gm In Sodium 50 Chloride 0.9% 50 ml @ 100 mls/hr IVPB DAILY [facility] Rx #:[id number] Output: Gastric Drainage 450 Drainage 10 Left Abdomen 5 Right Abdomen 5 Urine 2255 1475 650 Other: Voiding Method Indwelling Catheter Indwelling Catheter Indwelling Catheter ABP, PAP, CO, CI - Last Documented Arterial Blood Pressure 168/70 - Exam -GENERAL: The patient is awake but does not answer questions,, does not follow commands, does not look in distress. HEENT: Pupils are round and equally reacting to light. EOMI. No scleral icterus. No conjunctival pallor. Normocephalic, atraumatic. No pharyngeal erythema. No thyromegaly. CARDIOVASCULAR: S1 and S2 present. No murmurs, rubs, or gallops. -PULMONARY: Chest is clear to auscultation, no wheezing . Bilateral crepitation and decreased breath sounds -ABDOMEN: Soft, nontender, nondistended, normoactive bowel sounds. No palpable organomegaly. Surgical wound slightly open at the ages with no purulent discharge, EBONY drain in place MUSCULOSKELETAL: No joint swelling or deformity. EXTREMITIES: No cyanosis, clubbing, or pedal edema. NEUROLOGICAL: Gross neurological examination did not reveal any focal deficits. SKIN: No rashes. no petechiae. - Labs CBC & Chem 7: 11/25/21 04:45 11/25/21 04:35 Labs: Abnormal Lab Results - Last 24 Hours (Table) 11/24/21 11/24/21 11/24/21 Range/Units 11:58 18:19 23:26 WBC (3.8-10.6) k/uL RBC (4.30-5.90) m/uL Hgb (13.0-17.5) gm/dL Hct (39.0-53.0) % MCHC (31.0-37.0) g/dL RDW (11.5-15.5) % Carbon Dioxide (22-30) mmol/L BUN (9-20) mg/dL Glucose (74-99) mg/dL POC Glucose (mg/dL) 152 H 138 H 139 H (75-99) mg/dL 11/25/21 11/25/21 Range/Units 04:35 04:45 WBC 12.8 H (3.8-10.6) k/uL RBC 2.53 L (4.30-5.90) m/uL Hgb 7.4 L (13.0-17.5) gm/dL Hct 24.0 L (39.0-53.0) % MCHC 30.9 L (31.0-37.0) g/dL RDW 17.5 H (11.5-15.5) % Carbon Dioxide 35 H (22-30) mmol/L BUN 48 H (9-20) mg/dL Glucose 129 H (74-99) mg/dL POC Glucose (mg/dL) (75-99) mg/dL Microbiology - Last 24 Hours (Table) 11/22/21 13:20 Anaerobic Culture - Preliminary Pleural Fluid 11/22/21 13:20 Gram Stain - Preliminary Pleural Fluid Body Fluid Culture - Preliminary Assessment and Plan Assessment: Bilateral aspiration pneumonia Ischemia of the lateral portion of the stomach and proximal jejunum, status post partial gastrectomy on 10/30 Pneumoperitoneum and upper abdominal abscess status post exploratory laparotomy on and small bowel resection on 11/12 Toxic/metabolic encephalopathy Mostly chronic kidney disease, stage III Developmental delay, was on a fpc Plan: This is a pleasant 51 years old male who presents with bowel ischemia status post resection, aspiration pneumonia. Continue with Invanz, fluconazole: Continue with IV Lasix Continue with rectal tube Discontinue NG tube and emesis for swallow evaluation Follow-up recommendation by pulmonary/critical care team, surgery team at the neurologist Labs and medication were reviewed.. Continue same treatment. Continue with symptomatic treatment. Resume home medication. Monitor lytes and vitals. DVT and GI prophylaxis. Further recommendations as per clinical course of the patient Prognosis is extremely guarded
[2021-11-25 17:35] LABS: Glucose,Whole Blood 135 mg/dL (75-99)
[2021-11-25] MEDS: FAT EMULSION 20% 500 ML in EMPTY BAG 1 BAG IV SCH (20:08)
[2021-11-25 23:32] LABS: Glucose,Whole Blood 142 mg/dL (75-99)
[2021-11-26] MEDS: LORazepam 2 MG/ML INJ IV SCH ×4 (01:45→17:57)
[2021-11-26] MEDS: METOCLOPRAMIDE 5 MG/ML 2 ML VIAL IVP SCH ×4 (01:46→20:18)
[2021-11-26 06:37] LABS: Glucose,Whole Blood 146 mg/dL (75-99)
[2021-11-26] MEDS: INSULIN ASPART (NovoLOG) 100 UNIT/ML VIAL SQ SCH ×3 (06:45→18:03)
[2021-11-26 06:46] LABS: Anisocytosis Slight; Basophils # (A) 0.1 k/uL (0-0.2); Basophils % (A) 1 %; Eosinophils # (A) 0.4 k/uL (0-0.7); Eosinophils % (A) 3 %; HCT 26.2 % (39.0-53.0); HGB 8.3 gm/dL (13.0-17.5); Hypochromasia Slight; Lymphocytes # (A) 1.4 k/uL (1.0-4.8); Lymphocytes % (A) 10 %; MCH 29.7 pg (25.0-35.0); MCHC 31.7 g/dL (31.0-37.0); MCV 93.7 fL (80.0-100.0); Mean Platelet Volume 9.2; Monocytes # (A) 0.6 k/uL (0-1.0); Monocytes % (A) 4 %; Neutrophils # (A) 11.3 k/uL (1.3-7.7); Neutrophils % (A) 82 %; Platelet Count 398 k/uL (150-450); RBC 2.79 m/uL (4.30-5.90); WBC 13.8 k/uL (3.8-10.6)
[2021-11-26 07:14] LABS: Calcium 9.1 mg/dL (8.4-10.2); Magnesium 2.2 mg/dL (1.6-2.3)
[2021-11-26] MEDS: HYDROPHILIC CREAM 180 GM TUBE TOPICAL SCH (08:08)
[2021-11-26] MEDS: PANTOPRAZOLE 40 MG/10 ML VIAL IVP SCH ×2 (08:08→20:03)
[2021-11-26] MEDS: FLUCONAZOLE IN NACL,ISO-OSM 400 MG in SALINE 1 200ML.BAG IVPB SCH (08:08)
[2021-11-26] MEDS: FUROSEMIDE 10 MG/ML 4 ML VIAL IV SCH ×2 (08:08→20:04)
[2021-11-26] MEDS: ERTAPENEM 1 GM in SODIUM CHLORIDE 0.9% 50 ML IVPB SCH (08:08)
[2021-11-26] MEDS: NOREPINEPHRINE 8 MG in SODIUM CHLORIDE 0.9% 250 ML IV SCH (08:09)
[2021-11-26] MEDS: IPRATROPIUM-ALBUTEROL 3 ML NEB INHALATION SCH ×3 (08:37→19:24)
[2021-11-26 11:27] LABS: Glucose,Whole Blood 171 mg/dL (75-99)
--- NOTE | 2021-11-26 12:57 | P.PN ---
Subjective Progress Note Date: 11/26/21 CHIEF COMPLAINT: Abdominal pain HISTORY OF PRESENT ILLNES: Patient in the ICU he is on room air. Patient is tolerating honey thickened liquids. He was seen by speech therapy for his swelling evaluation. Patient is currently on room air. He is awake. He is able to verbalize a few words. He did have a temp of 100 around midnight last night. White count did go up from 12.8-13.8 hemoglobin is trending upwards from 7.4-8.3. Patient does have fecal management system in place with brown stool. No nausea or vomiting reported. EBONY drain with minimal purulent 20 mL output on the left and right EBONY drain more of a serous color with 10 mL. PHYSICAL EXAM: VITAL SIGNS: Reviewed. GENERAL: Patient is more awake and responsive. He does say a few words. HEENT: Moist buccal mucosa. Head is atraumatic, normocephalic. ABDOMEN: Soft. Nondistended. Abdominal dressing clean dry and intact ASSESSMENT: 1. Pneumoperitoneum, suspected gastric leak and section of proximal jejunum with ischemic changes status post exploratory laparotomy, drainage of upper abdominal abscess, lysis of adhesions and small bowel resection on 11/12/21 2. Ischemia of the lateral portion of the stomach and mild ischemia of the proximal jejunum status post exploratory laparotomy and partial gastrectomy on 10/30/21 3. Septic shock 4. Postoperative ileus resolved 5. Thrombocytopenia resolved 6. Possible aspiration pneumonia 7. Anemia 8. Left Pleural effusion status post thoracentesis PLAN: -Patient to be reevaluated by speech therapy today for further adjustment in diet -Continue ICU management -Continue supportive care -Continue local wound care -Continue to monitor hemoglobin -Continue to monitor EBONY drain output -Continue antibiotics -Continue TPN for nutrition support -CODE STATUS DO NOT RESUSCITATE/DO NOT INTUBATE Physician Vault Maker note has been reviewed by physician. Signing provider agrees with the documented findings, assessment, and plan of care. Patient seen and evaluated. Doing very well. Now currently starting diet. Continue antibiotics. Diet adjustment per speech therapist. Objective - Vital Signs Vital signs: Vital Signs Temp 98.9 F 11/26/21 12:00 Pulse 96 11/26/21 12:06 Resp 27 H 11/26/21 12:00 BP 127/74 11/26/21 12:00 Pulse Ox 98 11/26/21 12:00 Intake & Output 11/25/21 11/26/21 11/26/21 18:59 06:59 18:59 Intake Total 1780 1818 1254 Output Total 1800 1400 975 Balance -20 418 279 Weight 73 kg 71.6 kg Intake: IV 1780 1356 962 Ertapenem 1 gm In Sodium 50 50 Chloride 0.9% 50 ml @ 100 mls/hr IVPB DAILY [facility] Rx #:[id number] Fat Emulsion 20% 500 ml 84 In Empty Bag 1 bag @ 42 mls/hr IV Q7D [facility] Rx#: [id number] Fluconazole in NaCl,Iso- 200 200 Osm 400 mg In Saline 1 200ml.bag @ 100 mls/hr IVPB DAILY [facility] Rx#: [id number] Pressure Bag 30 36 18 Sodium Chloride 0.9% 1, 220 240 70 000 ml @ 20 mls/hr IV . Q24H [facility] Rx#:[id number] TPN 1080 1080 540 magnesium 200 Intake, IV Titration 462 42 Amount Fat Emulsion 20% 500 ml 462 42 In Empty Bag 1 bag @ 42 mls/hr IV Q7D [facility] Rx#: [id number] Oral 250 Output: Gastric Drainage 300 Drainage 30 Left Abdomen 20 Right Abdomen 10 Urine 1500 1400 895 Stool 50 Other: Voiding Method Indwelling Catheter Indwelling Catheter Indwelling Catheter ABP, PAP, CO, CI - Last Documented Arterial Blood Pressure 146/78 - Labs CBC & Chem 7: 11/26/21 06:26 11/26/21 06:26 Labs: Abnormal Lab Results - Last 24 Hours (Table) 11/25/21 11/25/21 11/26/21 Range/Units 17:33 23:30 06:26 WBC (3.8-10.6) k/uL RBC (4.30-5.90) m/uL Hgb (13.0-17.5) gm/dL Hct (39.0-53.0) % RDW (11.5-15.5) % Neutrophils # (1.3-7.7) k/uL Sodium 134 L (137-145) mmol/L Carbon Dioxide 32 H (22-30) mmol/L BUN 44 H (9-20) mg/dL Glucose 145 H (74-99) mg/dL POC Glucose (mg/dL) 135 H 142 H (75-99) mg/dL 11/26/21 11/26/2111/26/22 Range/Units 06:26 06:36 11:26 WBC 13.8 H (3.8-10.6) k/uL RBC 2.79 L (4.30-5.90) m/uL Hgb 8.3 L (13.0-17.5) gm/dL Hct 26.2 L (39.0-53.0) % RDW 17.0 H (11.5-15.5) % Neutrophils # 11.3 H (1.3-7.7) k/uL Sodium (137-145) mmol/L Carbon Dioxide (22-30) mmol/L BUN (9-20) mg/dL Glucose (74-99) mg/dL POC Glucose (mg/dL) 146 H 171 H (75-99) mg/dL Microbiology - Last 24 Hours (Table) 11/22/21 13:20 Gram Stain - Preliminary Pleural Fluid Body Fluid Culture - Preliminary 11/11/21 12:30 Acid Fast Bacilli Smear - Final Bronchial Washings - Random Acid Fast Bacilli Culture - Preliminary 11/11/21 12:00 Acid Fast Bacilli Smear - Final Bronchial Washings - Random Acid Fast Bacilli Culture - Preliminary
[2021-11-26 17:41] LABS: Glucose,Whole Blood 119 mg/dL (75-99)
[2021-11-26 18:02] LABS: Glucose,Whole Blood 123 mg/dL (75-99)
--- NOTE | 2021-11-26 19:53 | P.PN ---
Subjective From the records, patient could not provide information Patient was admitted for nausea vomiting diarrhea believed to have gastroenteritis. Patient continued to have vomiting and started having abdominal tenderness because of which CT of the abdomen was obtained which showed pneumatosis coli along with some gas in the venous system concern for is chemic bowel. Patient was started on Zosyn. Patient subsequently decompensated patient became hypotensive with BP of 60/40 transferred to ICU patient was given 3 L of boluses of IV fluid NG tube was placed which showed bloody output . Patient in septic shock and receiving norepinephrine at this time. Recent echo showed normal ejection fraction. Patient had CTA of the chest which was negative for pulmonary embolism patient creatinine has worsened and went up to 2.80 today from 1.14 yesterday and this is secondary to acute tubular necrosis from sepsis and septic shock. Patient does have lactic acidosis, patient does have lactic acidosis with lactic acidosis 7.5. Patient will be given 1 L of IV fluids continue pressor support. he is intubated and sedated. 10/31/2021 Patient is started having urine output. Patient underwent a arthrotomy yesterday and found to have ischemia of the lateral portion of the stomach and ischemia of the proximal jejunum patient underwent partial gastrectomy. Patient is presently on that to pressors maximized on norepinephrine, patient is also on vasopressin receiving albumin, IV fluids started having minimal urine output patient was anuric last night. Patient's chloride is highly elevated leading to metabolic acidosis patient also has an anion gap metabolic acidosis from lactic acidosis which appears to be improving at this time patient's overall clinical condition is guarded and the prognosis is poor. Patient Y blood cell count went down in fact patient is neutropenic now. Patient is presently not receiving any nutrition at this time. 11/18/2021 Patient is seen and evaluated in follow up this morning and continues to be in the ICU and was reintubated again this morning. Chest xray shows CHF and pleural effusions as previously noted. No evidence of pneumothorax. Patient continues with an FI02 of 50% and peep is 5. Patient continues on sedation. Patient to continue with IV antibiotics and also antifungals. WBC is elevated. Per nursing staff, hemoglobin is 5.9 and bleeding from NG tube. Patient to receive 2 units of PRBC. 11/19/2021 Patient is seen in follow-up this morning closely monitored with multiple medical consultations following. Patient continues on mechanical vent with an FiO2 of 35% and PEEP is 5. Patient's hemoglobin is 6.7 today and continues with bleeding noted in the NG tube. Patient is to receive another unit of PRBCs and will continue to monitor hemoglobin and bleeding closely. Weaning parameters are continuously being assessed and possible extubation in the next day or so per pulmonary. Brother at the bedside and is agreeable with no CODE STATUS and no further intubations as patient has been also intubated multiple times this admission and continues to deteriorate. Chest x-ray today shows persistent bilateral infiltrates with pleural effusions greater on the left and correlate for pneumonia versus CHF. Kidney functions slightly worsening as well and trending up. WBC continues to be elevated and patient is maintained on IV antibiotics. 11/20/2021 Patient is seen in follow-up today continues to be in the ICU with multiple medical consultations following. Patient was recently extubated yesterday and currently maintained on 6 L nasal cannula. patient continues to have GI bleeding with NG tube noted to have bleeding along with dark maroon stools noted. Hemoglobin is 6.5 today and will be receiving a unit of PRBC. WBC remains elevated and continues on IV antibiotics. Patient is nonverbal but follows simple commands. Continues to be in critical condition. To continue with NG tube and TPN for now. Surgery following as well. Today note 11/21/2021 Patient with past medical history of developmental delay living in a residential presents to the hospital on 10/29 from his residential after a fall and suspected syncope. On admission he was AAO 1. Patient has prolonged hospitalization since then for more than 3 weeks. Today is lying in the bed in the ICU, unresponsive and does not follow command and does not answer questions. He is been followed by several consultants including neurologist, analyst food and beverage/critical care team and surgery team. He is a status post exploratory laparotomy and surgical resection of part of the stomach and proximal jejunum secondary to ischemic changes and drainage of the adjacent abscess. He has evidence of persistent bilateral pneumonia and kept on Invanz and fluconazole with body fluid culture showing E. coli and Cortney and chest x-ray showing evidence of bilateral infiltrates read also seen on CT of the abdomen, pelvis and chest without contrast: Bilateral pulmonary consolidation and bilateral pleural effusion. He had negative CT of the brain and ejection fraction 60-65%. His receiving TPN and on Lasix 40 mg twice daily. Labs showing leukocytosis of 20, hemoglobin 6.5, sodium 146, creatinine 1.4 with evidence mostly indicating chronic kidney disease stage III. Also history of chronic fever of 100.6 and saturating low 90s on 4 L/m of oxygen. 11/22/2021 Patient remains in the ICU, he is more awake today, he looks at me if I called in by his name however he fails to follow commands, when I asked him if he is in pain he moves his hands little bit on his abdomen, not sure what does not mean exactly. His oxygen requirement slightly worse up to 5 L/m but today he is afebrile. Labs showing slightly improving leukocytosis at 17.8, hemoglobin improved 7.6, sodium 145 and creatinine came down to 1.18. Test x-ray showing decreased left pleural effusion with bilateral consolidation and nodular density in the prior left perihilar region. Patient remains on Invanz, fluconazole, IV Lasix as well as TPN. His wound edges slightly open with gauze soaked but there is no purulent discharge, EBONY drain and place. Rectal tube in place with no blood in it. Zepeda catheter is in place. 11/23/2021 Patient is a status post left thoracocentesis yesterday with a 20 mm of fluid taken out. Today he is more awake and comfortable, he looks at me when I talked to him but he does not follow commands and he does not answer questions. NG tube with green discharge, he has some black stool. EBONY drains with minimal discharge when I examine him, surgical wound is stable. Patient still has PICC line with TPN running. Vitals and labs looked the same, however oxygen is slightly worse with requirement went up from 5-6 L per minute and chest x-ray showing right lower lobe evolving pneumonia however patient remains on the same antibiotics with invanz and fluconazole. Also he is on IV Lasix and TPN 11/24/2021 Patient mentation it's looks the same for the last couple days. No other new complaint. He slightly more tachypneic today. No chest pain or abdominal pain, distal does not follow commands or answer questions. EBONY drain in place and surgery team are following the patient closely. TPN is running and PICC line is in place. Surgical wound looks stable. Rectal tube in place as well. Patient continued with the same treatment of Invanz, fluconazole and Lasix 40 mg IV twice a day 11/25/2021 No much difference clinically from yesterday, he still encephalopathy per neurologist however neurology service signed off as this is looks chronic. Patient NG tube is recommended to be discontinued today and undergo a swallow evaluation to assess nutrition capability Distal getting TPN through his PICC line, surgical wound is healing and EBONY drains are in place with no worsening discharge. He remains on Invanz and fluconazole and IV Lasix 11/26/2021 Patient awake today looks calm, still have rectal tube and Zepeda catheter. He has low-grade temperature of 100.1, he is slightly tachypneic at 21 but he is on room air today. WBCs 13.8, Hemoglobin 8.3, BMP is unremarkable Patient passed a swallow evaluation today and placed on dysphagia II - ground texture diet with nectar thick liquids, straws are okay, and meds whole in puree, 1:1 feed, aspiration precautions. Magic cups were requested for pt . Swallow evaluation recommendation Objective - Vital Signs Vital signs: Vital Signs Temp 100.1 F H 11/26/21 08:25 Pulse 99 11/26/21 10:00 Resp 21 11/26/21 10:00 BP 144/77 11/26/21 09:00 Pulse Ox 95 11/26/21 10:00 Intake & Output 11/25/21 11/26/21 11/26/21 18:59 06:59 18:59 Intake Total 1780 1818 778 Output Total 1800 1400 715 Balance -20 418 63 Weight 73 kg 71.6 kg Intake: IV 1780 1356 736 Ertapenem 1 gm In Sodium 50 50 Chloride 0.9% 50 ml @ 100 mls/hr IVPB DAILY [facility] Rx #:[id number] Fat Emulsion 20% 500 ml 84 In Empty Bag 1 bag @ 42 mls/hr IV Q7D [facility] Rx#: [id number] Fluconazole in NaCl,Iso- 200 200 Osm 400 mg In Saline 1 200ml.bag @ 100 mls/hr IVPB DAILY [facility] Rx#: [id number] Pressure Bag 30 36 12 Sodium Chloride 0.9% 1, 220 240 30 000 ml @ 20 mls/hr IV . Q24H [facility] Rx#:[id number] TPN 1080 1080 360 magnesium 200 Intake, IV Titration 462 42 Amount Fat Emulsion 20% 500 ml 462 42 In Empty Bag 1 bag @ 42 mls/hr IV Q7D [facility] Rx#: [id number] Output: Gastric Drainage 300 Drainage 30 Left Abdomen 20 Right Abdomen 10 Urine 1500 1400 635 Stool 50 Other: Voiding Method Indwelling Catheter Indwelling Catheter Indwelling Catheter ABP, PAP, CO, CI - Last Documented Arterial Blood Pressure 146/78 - Exam -GENERAL: The patient is awake but does not answer questions,, does not follow commands, does not look in distress. HEENT: Pupils are round and equally reacting to light. EOMI. No scleral icterus. No conjunctival pallor. Normocephalic, atraumatic. No pharyngeal erythema. No thyromegaly. CARDIOVASCULAR: S1 and S2 present. No murmurs, rubs, or gallops. -PULMONARY: Chest is clear to auscultation, no wheezing . Bilateral crepitation and decreased breath sounds -ABDOMEN: Soft, nontender, nondistended, normoactive bowel sounds. No palpable organomegaly. Surgical wound slightly open at the ages with no purulent discharge, EBONY drain in place MUSCULOSKELETAL: No joint swelling or deformity. EXTREMITIES: No cyanosis, clubbing, or pedal edema. NEUROLOGICAL: Gross neurological examination did not reveal any focal deficits. SKIN: No rashes. no petechiae. - Labs CBC & Chem 7: 11/26/21 06:26 11/26/21 06:26 Labs: Abnormal Lab Results - Last 24 Hours (Table) 11/25/21 11/25/21 11/25/21 Range/Units 11:41 17:33 23:30 WBC (3.8-10.6) k/uL RBC (4.30-5.90) m/uL Hgb (13.0-17.5) gm/dL Hct (39.0-53.0) % RDW (11.5-15.5) % Neutrophils # (1.3-7.7) k/uL Sodium (137-145) mmol/L Carbon Dioxide (22-30) mmol/L BUN (9-20) mg/dL Glucose (74-99) mg/dL POC Glucose (mg/dL) 153 H 135 H 142 H (75-99) mg/dL 11/26/21 11/26/21 11/26/21 Range/Units 06:26 06:26 06:36 WBC 13.8 H (3.8-10.6) k/uL RBC 2.79 L (4.30-5.90) m/uL Hgb 8.3 L (13.0-17.5) gm/dL Hct 26.2 L (39.0-53.0) % RDW 17.0 H (11.5-15.5) % Neutrophils # 11.3 H (1.3-7.7) k/uL Sodium 134 L (137-145) mmol/L Carbon Dioxide 32 H (22-30) mmol/L BUN 44 H (9-20) mg/dL Glucose 145 H (74-99) mg/dL POC Glucose (mg/dL) 146 H (75-99) mg/dL Microbiology - Last 24 Hours (Table) 11/22/21 13:20 Gram Stain - Preliminary Pleural Fluid Body Fluid Culture - Preliminary 11/11/21 12:30 Acid Fast Bacilli Smear - Final Bronchial Washings - Random Acid Fast Bacilli Culture - Preliminary 11/11/21 12:00 Acid Fast Bacilli Smear - Final Bronchial Washings - Random Acid Fast Bacilli Culture - Preliminary Assessment and Plan Assessment: Bilateral aspiration pneumonia Ischemia of the lateral portion of the stomach and proximal jejunum, status post partial gastrectomy on 10/30 Pneumoperitoneum and upper abdominal abscess status post exploratory laparotomy on and small bowel resection on 11/12 Toxic/metabolic encephalopathy Mostly chronic kidney disease, stage III Developmental delay, was on a residential Plan: This is a pleasant 51 years old male who presents with bowel ischemia status post resection, aspiration pneumonia. Continue with Invanz, fluconazole: Continue with IV Lasix Continue with rectal tube Start dysphagia diet with aspiration precautions Follow-up recommendation by pulmonary/critical care team, surgery team at the neurologist Labs and medication were reviewed.. Continue same treatment. Continue with symptomatic treatment. Resume home medication. Monitor lytes and vitals. DVT and GI prophylaxis. Further recommendations as per clinical course of the patient Prognosis is extremely guarded
[2021-11-26] MEDS: HYDROmorphone 0.5 MG/0.5 ML SYRINGE IVP PRN (20:49)
[2021-11-27 00:30] LABS: Glucose,Whole Blood 134 mg/dL (75-99)
[2021-11-27] MEDS: INSULIN ASPART (NovoLOG) 100 UNIT/ML VIAL SQ SCH ×4 (00:38→17:38)
[2021-11-27] MEDS: LORazepam 2 MG/ML INJ IV SCH ×4 (00:39→17:39)
[2021-11-27] MEDS: METOCLOPRAMIDE 5 MG/ML 2 ML VIAL IVP SCH ×4 (02:38→19:49)
[2021-11-27 05:21] LABS: Glucose,Whole Blood 138 mg/dL (75-99)
[2021-11-27 05:31] LABS: Anisocytosis Slight; Basophils # (A) 0.1 k/uL (0-0.2); Basophils % (A) 1 %; Eosinophils # (A) 0.3 k/uL (0-0.7); Eosinophils % (A) 3 %; HCT 24.8 % (39.0-53.0); HGB 7.6 gm/dL (13.0-17.5); Hypochromasia Slight; Lymphocytes # (A) 1.2 k/uL (1.0-4.8); Lymphocytes % (A) 10 %; MCH 28.7 pg (25.0-35.0); MCHC 30.5 g/dL (31.0-37.0); MCV 94.1 fL (80.0-100.0); Mean Platelet Volume 9.3; Monocytes # (A) 0.7 k/uL (0-1.0); Monocytes % (A) 6 %; Neutrophils # (A) 9.5 k/uL (1.3-7.7); Neutrophils % (A) 80 %; Platelet Count 361 k/uL (150-450); RBC 2.64 m/uL (4.30-5.90); RDW 16.8 % (11.5-15.5); WBC 11.9 k/uL (3.8-10.6)
[2021-11-27 06:12] LABS: Calcium 9.1 mg/dL (8.4-10.2); Magnesium 2.4 mg/dL (1.6-2.3); Phosphorus 3.8 mg/dL (2.5-4.5); Potassium 4.5 mmol/L (3.5-5.1)
[2021-11-27] MEDS: IPRATROPIUM-ALBUTEROL 3 ML NEB INHALATION SCH ×3 (08:57→21:00)
[2021-11-27] MEDS: NOREPINEPHRINE 8 MG in SODIUM CHLORIDE 0.9% 250 ML IV SCH (09:07)
[2021-11-27] MEDS: ERTAPENEM 1 GM in SODIUM CHLORIDE 0.9% 50 ML IVPB SCH (09:33)
[2021-11-27] MEDS: FLUCONAZOLE IN NACL,ISO-OSM 400 MG in SALINE 1 200ML.BAG IVPB SCH (09:33)
[2021-11-27] MEDS: PANTOPRAZOLE 40 MG/10 ML VIAL IVP SCH ×2 (09:34→19:48)
[2021-11-27] MEDS: FUROSEMIDE 10 MG/ML 4 ML VIAL IV SCH ×2 (09:34→19:48)
[2021-11-27 11:55] LABS: Glucose,Whole Blood 139 mg/dL (75-99)
--- NOTE | 2021-11-27 14:24 | P.PN ---
Subjective Progress Note Date: 11/27/21 CHIEF COMPLAINT: Abdominal pain HISTORY OF PRESENT ILLNES: Patient in the ICU he is on room air. Patient is tolerating a ground diet. He's afebrile. White count is trending down from 13.9-11.9. Hemoglobin 7.6. Patient has fecal management system in place. His stool is brown in color. No further signs of GI bleed. Patient is awake and alert. EBONY drain with clearing of the output. More of a serous color. EBONY drain on the left 20 mL output and on the right 10 mL output. PHYSICAL EXAM: VITAL SIGNS: Reviewed. GENERAL: Patient is more awake and responsive. He does say a few words. HEENT: Moist buccal mucosa. Head is atraumatic, normocephalic. ABDOMEN: Soft. Nondistended. Abdominal incision wound with healthy tissue. No significant drainage. Retention sutures in place. And 2 EBONY drains. ASSESSMENT: 1. Pneumoperitoneum, suspected gastric leak and section of proximal jejunum w ith ischemic changes status post exploratory laparotomy, drainage of upper abdominal abscess, lysis of adhesions and small bowel resection on 11/12/21 2. Ischemia of the lateral portion of the stomach and mild ischemia of the proximal jejunum status post exploratory laparotomy and partial gastrectomy on 10/30/21 3. Septic shock 4. Postoperative ileus resolved 5. Thrombocytopenia resolved 6. Possible aspiration pneumonia 7. Anemia 8. Left Pleural effusion status post thoracentesis PLAN: -Patient can be transferred out of the ICU from surgical standpoint. -Continue ground diet. Continue to advance diet per speech therapist's recommendations -Continue supportive care -Continue local wound care -Continue to monitor hemoglobin -Continue to monitor EBONY drain output -Continue antibiotics -Continue TPN for nutrition support -CODE STATUS DO NOT RESUSCITATE/DO NOT INTUBATE Physician Game Developer note has been reviewed by physician. Signing provider agrees with the documented findings, assessment, and plan of care. Objective - Vital Signs Vital signs: Vital Signs Temp 98.5 F 11/27/21 04:00 Pulse 93 11/27/21 07:00 Resp 23 11/27/21 07:00 BP 133/78 11/27/21 06:00 Pulse Ox 95 11/27/21 08:58 Intake & Output 11/26/21 11/27/21 11/27/21 18:59 06:59 18:59 Intake Total 1932 3382 93 Output Total 1370 1470 40 Balance 562 1912 53 Weight 69.2 kg Intake: IV 1640 1313 93 Ertapenem 1 gm In Sodium 50 Chloride 0.9% 50 ml @ 100 mls/hr IVPB DAILY [facility] Rx #:[id number] Fat Emulsion 20% 500 ml 84 In Empty Bag 1 bag @ 42 mls/hr IV Q7D [facility] Rx#: [id number] Fluconazole in NaCl,Iso- 200 Osm 400 mg In Saline 1 200ml.bag @ 100 mls/hr IVPB DAILY [facility] Rx#: [id number] Pressure Bag 36 33 3 Sodium Chloride 0.9% 1, 190 200 000 ml @ 20 mls/hr IV . Q24H [facility] Rx#:[id number] TPN 1080 1080 90 Intake, IV Titration 2068 Amount Fat Emulsion 20% 500 ml 42 In Empty Bag 1 bag @ 42 mls/hr IV Q7D [facility] Rx#: [id number] Mvi, Adult No.4 with Vit 2069 K 10 ml Trace (Conc-1Ml/ Dose) 1 ml Potassium Chloride 110 meq Magnesium Sulfate gm 1.5 gm In Amino Acids 5 %/ Dextrose 20 % 2,000 ml @ 90 mls/hr IV .BY DURATION [facility]O Rx#:[id number] Oral 250 Output: Drainage 30 Left Abdomen 20 Right Abdomen 10 Urine 1290 1420 40 Stool 50 Urine/Stool Mix 50 Other: Voiding Method Indwelling Catheter Indwelling Catheter ABP, PAP, CO, CI - Last Documented Arterial Blood Pressure 136/59 - Labs CBC & Chem 7: 11/27/21 05:20 11/27/21 05:20 Labs: Abnormal Lab Results - Last 24 Hours (Table) 11/26/21 11/26/21 11/26/21 Range/Units 11:26 17:40 18:00 WBC (3.8-10.6) k/uL RBC (4.30-5.90) m/uL Hgb (13.0-17.5) gm/dL Hct (39.0-53.0) % MCHC (31.0-37.0) g/dL RDW (11.5-15.5) % Neutrophils # (1.3-7.7) k/uL Sodium (137-145) mmol/L BUN (9-20) mg/dL Glucose (74-99) mg/dL POC Glucose (mg/dL) 171 H 119 H 123 H (75-99) mg/dL Magnesium (1.6-2.3) mg/dL 11/27/21 11/27/21 11/27/21 Range/Units 00:29 05:19 05:20 WBC 11.9 H (3.8-10.6) k/uL RBC 2.64 L (4.30-5.90) m/uL Hgb 7.6 L (13.0-17.5) gm/dL Hct 24.8 L (39.0-53.0) % MCHC 30.5 L (31.0-37.0) g/dL RDW 16.8 H (11.5-15.5) % Neutrophils # 9.5 H (1.3-7.7) k/uL Sodium (137-145) mmol/L BUN (9-20) mg/dL Glucose (74-99) mg/dL POC Glucose (mg/dL) 134 H 138 H (75-99) mg/dL Magnesium (1.6-2.3) mg/dL 11/27/21 Range/Units 05:20 WBC (3.8-10.6) k/uL RBC (4.30-5.90) m/uL Hgb (13.0-17.5) gm/dL Hct (39.0-53.0) % MCHC (31.0-37.0) g/dL RDW (11.5-15.5) % Neutrophils # (1.3-7.7) k/uL Sodium 135 L (137-145) mmol/L BUN 46 H (9-20) mg/dL Glucose 133 H (74-99) mg/dL POC Glucose (mg/dL) (75-99) mg/dL Magnesium 2.4 H (1.6-2.3) mg/dL Microbiology - Last 24 Hours (Table) 11/22/21 13:20 Anaerobic Culture - Final Pleural Fluid 11/22/21 13:20 Gram Stain - Final Pleural Fluid Body Fluid Culture - Final
[2021-11-27] MEDS: HYDROPHILIC CREAM 180 GM TUBE TOPICAL SCH (17:09)
[2021-11-27 17:33] LABS: Glucose,Whole Blood 125 mg/dL (75-99)
--- NOTE | 2021-11-27 19:02 | P.PN ---
Subjective From the records, patient could not provide information Patient was admitted for nausea vomiting diarrhea believed to have gastroenteritis. Patient continued to have vomiting and started having abdominal tenderness because of which CT of the abdomen was obtained which showed pneumatosis coli along with some gas in the venous system concern for is chemic bowel. Patient was started on Zosyn. Patient subsequently decompensated patient became hypotensive with BP of 60/40 transferred to ICU patient was given 3 L of boluses of IV fluid NG tube was placed which showed bloody output . Patient in septic shock and receiving norepinephrine at this time. Recent echo showed normal ejection fraction. Patient had CTA of the chest which was negative for pulmonary embolism patient creatinine has worsened and went up to 2.80 today from 1.14 yesterday and this is secondary to acute tubular necrosis from sepsis and septic shock. Patient does have lactic acidosis, patient does have lactic acidosis with lactic acidosis 7.5. Patient will be given 1 L of IV fluids continue pressor support. he is intubated and sedated. 10/31/2021 Patient is started having urine output. Patient underwent a arthrotomy yesterday and found to have ischemia of the lateral portion of the stomach and ischemia of the proximal jejunum patient underwent partial gastrectomy. Patient is presently on that to pressors maximized on norepinephrine, patient is also on vasopressin receiving albumin, IV fluids started having minimal urine output patient was anuric last night. Patient's chloride is highly elevated leading to metabolic acidosis patient also has an anion gap metabolic acidosis from lactic acidosis which appears to be improving at this time patient's overall clinical condition is guarded and the prognosis is poor. Patient Y blood cell count went down in fact patient is neutropenic now. Patient is presently not receiving any nutrition at this time. 11/18/2021 Patient is seen and evaluated in follow up this morning and continues to be in the ICU and was reintubated again this morning. Chest xray shows CHF and pleural effusions as previously noted. No evidence of pneumothorax. Patient continues with an FI02 of 50% and peep is 5. Patient continues on sedation. Patient to continue with IV antibiotics and also antifungals. WBC is elevated. Per nursing staff, hemoglobin is 5.9 and bleeding from NG tube. Patient to receive 2 units of PRBC. 11/19/2021 Patient is seen in follow-up this morning closely monitored with multiple medical consultations following. Patient continues on mechanical vent with an FiO2 of 35% and PEEP is 5. Patient's hemoglobin is 6.7 today and continues with bleeding noted in the NG tube. Patient is to receive another unit of PRBCs and will continue to monitor hemoglobin and bleeding closely. Weaning parameters are continuously being assessed and possible extubation in the next day or so per pulmonary. Brother at the bedside and is agreeable with no CODE STATUS and no further intubations as patient has been also intubated multiple times this admission and continues to deteriorate. Chest x-ray today shows persistent bilateral infiltrates with pleural effusions greater on the left and correlate for pneumonia versus CHF. Kidney functions slightly worsening as well and trending up. WBC continues to be elevated and patient is maintained on IV antibiotics. 11/20/2021 Patient is seen in follow-up today continues to be in the ICU with multiple medical consultations following. Patient was recently extubated yesterday and currently maintained on 6 L nasal cannula. patient continues to have GI bleeding with NG tube noted to have bleeding along with dark maroon stools noted. Hemoglobin is 6.5 today and will be receiving a unit of PRBC. WBC remains elevated and continues on IV antibiotics. Patient is nonverbal but follows simple commands. Continues to be in critical condition. To continue with NG tube and TPN for now. Surgery following as well. Today note 11/21/2021 Patient with past medical history of developmental delay living in a alf presents to the hospital on 10/29 from his alf after a fall and suspected syncope. On admission he was AAO 1. Patient has prolonged hospitalization since then for more than 3 weeks. Today is lying in the bed in the ICU, unresponsive and does not follow command and does not answer questions. He is been followed by several consultants including neurologist, taxonomist/critical care team and surgery team. He is a status post exploratory laparotomy and surgical resection of part of the stomach and proximal jejunum secondary to ischemic changes and drainage of the adjacent abscess. He has evidence of persistent bilateral pneumonia and kept on Invanz and fluconazole with body fluid culture showing E. coli and Cortney and chest x-ray showing evidence of bilateral infiltrates read also seen on CT of the abdomen, pelvis and chest without contrast: Bilateral pulmonary consolidation and bilateral pleural effusion. He had negative CT of the brain and ejection fraction 60-65%. His receiving TPN and on Lasix 40 mg twice daily. Labs showing leukocytosis of 20, hemoglobin 6.5, sodium 146, creatinine 1.4 with evidence mostly indicating chronic kidney disease stage III. Also history of chronic fever of 100.6 and saturating low 90s on 4 L/m of oxygen. 11/22/2021 Patient remains in the ICU, he is more awake today, he looks at me if I called in by his name however he fails to follow commands, when I asked him if he is in pain he moves his hands little bit on his abdomen, not sure what does not mean exactly. His oxygen requirement slightly worse up to 5 L/m but today he is afebrile. Labs showing slightly improving leukocytosis at 17.8, hemoglobin improved 7.6, sodium 145 and creatinine came down to 1.18. Test x-ray showing decreased left pleural effusion with bilateral consolidation and nodular density in the prior left perihilar region. Patient remains on Invanz, fluconazole, IV Lasix as well as TPN. His wound edges slightly open with gauze soaked but there is no purulent discharge, EBONY drain and place. Rectal tube in place with no blood in it. Zepeda catheter is in place. 11/23/2021 Patient is a status post left thoracocentesis yesterday with a 20 mm of fluid taken out. Today he is more awake and comfortable, he looks at me when I talked to him but he does not follow commands and he does not answer questions. NG tube with green discharge, he has some black stool. EBONY drains with minimal discharge when I examine him, surgical wound is stable. Patient still has PICC line with TPN running. Vitals and labs looked the same, however oxygen is slightly worse with requirement went up from 5-6 L per minute and chest x-ray showing right lower lobe evolving pneumonia however patient remains on the same antibiotics with invanz and fluconazole. Also he is on IV Lasix and TPN 11/24/2021 Patient mentation it's looks the same for the last couple days. No other new complaint. He slightly more tachypneic today. No chest pain or abdominal pain, distal does not follow commands or answer questions. EBONY drain in place and surgery team are following the patient closely. TPN is running and PICC line is in place. Surgical wound looks stable. Rectal tube in place as well. Patient continued with the same treatment of Invanz, fluconazole and Lasix 40 mg IV twice a day 11/25/2021 No much difference clinically from yesterday, he still encephalopathy per neurologist however neurology service signed off as this is looks chronic. Patient NG tube is recommended to be discontinued today and undergo a swallow evaluation to assess nutrition capability Distal getting TPN through his PICC line, surgical wound is healing and EBONY drains are in place with no worsening discharge. He remains on Invanz and fluconazole and IV Lasix 11/26/2021 Patient awake today looks calm, still have rectal tube and Zepeda catheter. He has low-grade temperature of 100.1, he is slightly tachypneic at 21 but he is on room air today. WBCs 13.8, Hemoglobin 8.3, BMP is unremarkable Patient passed a swallow evaluation today and placed on dysphagia II - ground texture diet with nectar thick liquids, straws are okay, and meds whole in puree, 1:1 feed, aspiration precautions. Magic cups were requested for pt . Swallow evaluation recommendation 11/27/2021 Patient awake, severely lethargic, does not follow, most of the time, he would follow some commands occasionally. NG tube was discontinued and started on dysphagia diet yesterday, he is able to tolerate diet with encouragement. Hemodynamically stable. Remains on TPN and PICC line place Surgical wound stable DC'd telemetry Transfer out of the ICU Objective - Vital Signs Vital signs: Vital Signs Temp 98.5 F 11/27/21 04:00 Pulse 93 11/27/21 07:00 Resp 23 11/27/21 07:00 BP 133/78 11/27/21 06:00 Pulse Ox 95 11/27/21 08:58 Intake & Output 11/26/21 11/27/21 11/27/21 18:59 06:59 18:59 Intake Total 1932 3382 93 Output Total 1370 1470 40 Balance 562 1912 53 Weight 69.2 kg Intake: IV 1640 1313 93 Ertapenem 1 gm In Sodium 50 Chloride 0.9% 50 ml @ 100 mls/hr IVPB DAILY [facility] Rx #:[id number] Fat Emulsion 20% 500 ml 84 In Empty Bag 1 bag @ 42 mls/hr IV Q7D [facility] Rx#: [id number] Fluconazole in NaCl,Iso- 200 Osm 400 mg In Saline 1 200ml.bag @ 100 mls/hr IVPB DAILY [facility] Rx#: [id number] Pressure Bag 36 33 3 Sodium Chloride 0.9% 1, 190 200 000 ml @ 20 mls/hr IV . Q24H [facility] Rx#:[id number] TPN 1080 1080 90 Intake, IV Titration 2068 Amount Fat Emulsion 20% 500 ml 42 In Empty Bag 1 bag @ 42 mls/hr IV Q7D [facility] Rx#: [id number] Mvi, Adult No.4 with Vit 2068 K 10 ml Trace (Conc-1Ml/ Dose) 1 ml Potassium Chloride 110 meq Magnesium Sulfate gm 1.5 gm In Amino Acids 5 %/ Dextrose 20 % 2,000 ml @ 90 mls/hr IV .BY DURATION [facility] Rx#:[id number] Oral 250 Output: Drainage 30 Left Abdomen 20 Right Abdomen 10 Urine 1290 1420 40 Stool 50 Urine/Stool Mix 50 Other: Voiding Method Indwelling Catheter Indwelling Catheter ABP, PAP, CO, CI - Last Documented Arterial Blood Pressure 136/59 - Exam -GENERAL: The patient is awake but does not answer questions,, does not follow commands, does not look in distress. HEENT: Pupils are round and equally reacting to light. EOMI. No scleral icterus. No conjunctival pallor. Normocephalic, atraumatic. No pharyngeal erythema. No thyromegaly. CARDIOVASCULAR: S1 and S2 present. No murmurs, rubs, or gallops. -PULMONARY: Chest is clear to auscultation, no wheezing . Bilateral crepitation and decreased breath sounds -ABDOMEN: Soft, nontender, nondistended, normoactive bowel sounds. No palpable organomegaly. Surgical wound slightly open at the ages with no purulent discharge, EBONY drain in place MUSCULOSKELETAL: No joint swelling or deformity. EXTREMITIES: No cyanosis, clubbing, or pedal edema. NEUROLOGICAL: Gross neurological examination did not reveal any focal deficits. SKIN: No rashes. no petechiae. - Labs CBC & Chem 7: 11/27/21 05:20 11/27/21 05:20 Labs: Abnormal Lab Results - Last 24 Hours (Table) 11/26/21 11/26/21 11/27/21 Range/Units 17:40 18:00 00:29 WBC (3.8-10.6) k/uL RBC (4.30-5.90) m/uL Hgb (13.0-17.5) gm/dL Hct (39.0-53.0) % MCHC (31.0-37.0) g/dL RDW (11.5-15.5) % Neutrophils # (1.3-7.7) k/uL Sodium (137-145) mmol/L BUN (9-20) mg/dL Glucose (74-99) mg/dL POC Glucose (mg/dL) 119 H 123 H 134 H (75-99) mg/dL Magnesium (1.6-2.3) mg/dL 11/27/21 11/27/21 11/27/21 Range/Units 05:19 05:20 05:20 WBC 11.9 H (3.8-10.6) k/uL RBC 2.64 L (4.30-5.90) m/uL Hgb 7.6 L (13.0-17.5) gm/dL Hct 24.8 L (39.0-53.0) % MCHC 30.5 L (31.0-37.0) g/dL RDW 16.8 H (11.5-15.5) % Neutrophils # 9.5 H (1.3-7.7) k/uL Sodium 135 L (137-145) mmol/L BUN 46 H (9-20) mg/dL Glucose 133 H (74-99) mg/dL POC Glucose (mg/dL) 138 H (75-99) mg/dL Magnesium 2.4 H (1.6-2.3) mg/dL Microbiology - Last 24 Hours (Table) 11/22/21 13:20 Anaerobic Culture - Final Pleural Fluid 11/22/21 13:20 Gram Stain - Final Pleural Fluid Body Fluid Culture - Final Assessment and Plan Assessment: Bilateral aspiration pneumonia Ischemia of the lateral portion of the stomach and proximal jejunum, status post partial gastrectomy on 10/30 Pneumoperitoneum and upper abdominal abscess status post exploratory laparotomy on and small bowel resection on 11/12 Toxic/metabolic encephalopathy Mostly chronic kidney disease, stage III Developmental delay, was on a alf Plan: This is a pleasant 51 years old male who presents with bowel ischemia status post resection, aspiration pneumonia. Continue with Invanz, fluconazole: Continue with IV Lasix Continue with rectal tube Start dysphagia diet with aspiration precautions transfer out of the ICU Follow-up recommendation by pulmonary/critical care team, surgery team, and the neurologist Labs and medication were reviewed.. Continue same treatment. Continue with symptomatic treatment. Resume home medication. Monitor lytes and vitals. DVT and GI prophylaxis. Further recommendations as per clinical course of the patient Prognosis is extremely guarded
[2021-11-27] MEDS: [UNRECOGNIZED DRUG - REMARK] IV SCH ×5 (22:40)
[2021-11-28] MEDS: INSULIN ASPART (NovoLOG) 100 UNIT/ML VIAL SQ SCH ×5 (01:32→23:20)
[2021-11-28] MEDS: METOCLOPRAMIDE 5 MG/ML 2 ML VIAL IVP SCH ×4 (01:50→22:28)
[2021-11-28] MEDS: LORazepam 2 MG/ML INJ IV SCH ×5 (01:50→23:42)
[2021-11-28 05:34] LABS: Glucose,Whole Blood 127 mg/dL (75-99)
[2021-11-28 07:30] LABS: African American GFR (CKD) >90 (>60 ml/min/1.73 sqM); Anion Gap 6 mmol/L; Blood Urea Nitrogen 51 mg/dL (9-20); Calcium 9.3 mg/dL (8.4-10.2); Carbon Dioxide 24 mmol/L (22-30); Chloride 106 mmol/L (98-107); Glucose 121 mg/dL (74-99); Magnesium 2.3 mg/dL (1.6-2.3); Non-African American GFR(CKD) 80 (>60 ml/min/1.73 sqM); Potassium 4.4 mmol/L (3.5-5.1); Sodium 136 mmol/L (137-145)
[2021-11-28 07:34] LABS: Anisocytosis Slight; Basophils # (A) 0.1 k/uL (0-0.2); Basophils % (A) 1 %; Eosinophils # (A) 0.4 k/uL (0-0.7); Eosinophils % (A) 4 %; HCT 26.2 % (39.0-53.0); HGB 8.2 gm/dL (13.0-17.5); Hypochromasia Marked; Lymphocytes % (A) 10 %; MCH 29.7 pg (25.0-35.0); MCHC 31.2 g/dL (31.0-37.0); MCV 95.1 fL (80.0-100.0); Mean Platelet Volume 8.5; Monocytes # (A) 0.6 k/uL (0-1.0); Monocytes % (A) 6 %; Neutrophils % (A) 78 %; Platelet Count 348 k/uL (150-450); RBC 2.76 m/uL (4.30-5.90); RDW 16.8 % (11.5-15.5); WBC 10.2 k/uL (3.8-10.6)
[2021-11-28 07:38] LABS: Ionized Calcium 5.8 mg/dL (4.5-5.3)
[2021-11-28] MEDS: IPRATROPIUM-ALBUTEROL 3 ML NEB INHALATION SCH ×3 (08:34→19:29)
[2021-11-28] MEDS: PANTOPRAZOLE 40 MG/10 ML VIAL IVP SCH ×2 (09:00→22:27)
[2021-11-28] MEDS: FUROSEMIDE 10 MG/ML 4 ML VIAL IV SCH ×2 (09:01→22:28)
[2021-11-28] MEDS: HYDROPHILIC CREAM 180 GM TUBE TOPICAL SCH (09:02)
--- NOTE | 2021-11-28 10:35 | P.PN ---
Subjective Progress Note Date: 11/28/21 CHIEF COMPLAINT: Abdominal pain HISTORY OF PRESENT ILLNES: Patient was transferred out of the ICU to regular medical floor yesterday. He is sitting up in bed. Per nursing staff patient was able to raise his arms. He is afebrile. White count trending down from 11.9-10.9 hemoglobin 8.2. He is currently on a ground diet. Unclear of exactly how much he is eating. He still has fecal management system in place no blood noted in the stools. EBONY drains with minimal purulent output. Drains are becoming more clear in color. PHYSICAL EXAM: VITAL SIGNS: Reviewed. GENERAL: Patient is more awake and responsive. He does say a few words. HEENT: Moist buccal mucosa. Head is atraumatic, normocephalic. ABDOMEN: Soft. Nondistended. Abdominal dressing clean dry and intact. And 2 EBONY drains. ASSESSMENT: 1. Pneumoperitoneum, suspected gastric leak and section of proximal jejunum with ischemic changes status post exploratory laparotomy, drainage of upper abdominal abscess, lysis of adhesions and small bowel resection on 11/12/21 2. Ischemia of the lateral portion of the stomach and mild ischemia of the proximal jejunum status post exploratory laparotomy and partial gastrectomy on 10/30/21 3. Septic shock 4. Postoperative ileus resolved 5. Thrombocytopenia resolved 6. Possible aspiration pneumonia 7. Anemia 8. Left Pleural effusion status post thoracentesis PLAN: -Continue ground diet. Continue to advance diet per speech therapist's recommendations -Continue supportive care -Continue local wound care -Continue to monitor hemoglobin -Continue to monitor EBONY drain output -Continue antibiotics -Continue TPN for nutrition support until oral intake has increased -CODE STATUS DO NOT RESUSCITATE/DO NOT INTUBATE Physician [facility] Techn[facility] note has been reviewed by physician. Signing provider agrees with the documented findings, assessment, and plan of care. Objective - Vital Signs Vital signs: Vital Signs Temp 99.6 F 11/28/21 07:17 Pulse 98 11/28/21 07:17 Resp 26 H 11/28/21 07:17 BP 119/72 11/28/21 07:17 Pulse Ox 100 11/28/21 07:17 Intake & Output 11/27/21 11/28/21 11/28/21 18:59 06:59 18:59 Intake Total 558 100 Output Total 1690 900 Balance -1132 -900 100 Intake: IV 558 Pressure Bag 18 TPN 540 Oral 100 Output: Urine 1690 900 Other: Voiding Method Indwelling Catheter Indwelling Catheter ABP, PAP, CO, CI - Last Documented Arterial Blood Pressure 144/72 - Labs CBC & Chem 7: 11/28/21 06:37 11/28/21 06:37 Labs: Abnormal Lab Results - Last 24 Hours (Table) 11/27/21 11/27/21 11/28/21 Range/Units 11:53 17:32 05:30 RBC (4.30-5.90) m/uL Hgb (13.0-17.5) gm/dL Hct (39.0-53.0) % RDW (11.5-15.5) % Neutrophils # (1.3-7.7) k/uL Sodium (137-145) mmol/L BUN (9-20) mg/dL Glucose (74-99) mg/dL POC Glucose (mg/dL) 139 H 125 H 127 H (75-99) mg/dL Ionized Calcium Azucena (4.5-5.3) mg/dL 11/28/21 11/28/21 Range/Units 06:37 06:37 RBC 2.76 L (4.30-5.90) m/uL Hgb 8.2 L (13.0-17.5) gm/dL Hct 26.2 L (39.0-53.0) % RDW 16.8 H (11.5-15.5) % Neutrophils # 8.0 H (1.3-7.7) k/uL Sodium 136 L (137-145) mmol/L BUN 51 H (9-20) mg/dL Glucose 121 H (74-99) mg/dL POC Glucose (mg/dL) (75-99) mg/dL Ionized Calcium Azucena 5.8 H (4.5-5.3) mg/dL
[2021-11-28] MEDS: FLUCONAZOLE IN NACL,ISO-OSM 400 MG in SALINE 1 200ML.BAG IVPB SCH (10:38)
[2021-11-28] MEDS: ERTAPENEM 1 GM in SODIUM CHLORIDE 0.9% 50 ML IVPB SCH (10:38)
[2021-11-28 11:26] VITALS: BMI 24.6
[2021-11-28 11:53] LABS: Glucose,Whole Blood 158 mg/dL (75-99)
--- NOTE | 2021-11-28 12:12 | P.PN ---
Subjective From the records, patient could not provide information Patient was admitted for nausea vomiting diarrhea believed to have gastroenteritis. Patient continued to have vomiting and started having abdominal tenderness because of which CT of the abdomen was obtained which showed pneumatosis coli along with some gas in the venous system concern for is chemic bowel. Patient was started on Zosyn. Patient subsequently decompensated patient became hypotensive with BP of 60/40 transferred to ICU patient was given 3 L of boluses of IV fluid NG tube was placed which showed bloody output . Patient in septic shock and receiving norepinephrine at this time. Recent echo showed normal ejection fraction. Patient had CTA of the chest which was negative for pulmonary embolism patient creatinine has worsened and went up to 2.80 today from 1.14 yesterday and this is secondary to acute tubular necrosis from sepsis and septic shock. Patient does have lactic acidosis, patient does have lactic acidosis with lactic acidosis 7.5. Patient will be given 1 L of IV fluids continue pressor support. he is intubated and sedated. 10/31/2021 Patient is started having urine output. Patient underwent a arthrotomy yesterday and found to have ischemia of the lateral portion of the stomach and ischemia of the proximal jejunum patient underwent partial gastrectomy. Patient is presently on that to pressors maximized on norepinephrine, patient is also on vasopressin receiving albumin, IV fluids started having minimal urine output patient was anuric last night. Patient's chloride is highly elevated leading to metabolic acidosis patient also has an anion gap metabolic acidosis from lactic acidosis which appears to be improving at this time patient's overall clinical condition is guarded and the prognosis is poor. Patient Y blood cell count went down in fact patient is neutropenic now. Patient is presently not receiving any nutrition at this time. 11/18/2021 Patient is seen and evaluated in follow up this morning and continues to be in the ICU and was reintubated again this morning. Chest xray shows CHF and pleural effusions as previously noted. No evidence of pneumothorax. Patient continues with an FI02 of 50% and peep is 5. Patient continues on sedation. Patient to continue with IV antibiotics and also antifungals. WBC is elevated. Per nursing staff, hemoglobin is 5.9 and bleeding from NG tube. Patient to receive 2 units of PRBC. 11/19/2021 Patient is seen in follow-up this morning closely monitored with multiple medical consultations following. Patient continues on mechanical vent with an FiO2 of 35% and PEEP is 5. Patient's hemoglobin is 6.7 today and continues with bleeding noted in the NG tube. Patient is to receive another unit of PRBCs and will continue to monitor hemoglobin and bleeding closely. Weaning parameters are continuously being assessed and possible extubation in the next day or so per pulmonary. Brother at the bedside and is agreeable with no CODE STATUS and no further intubations as patient has been also intubated multiple times this admission and continues to deteriorate. Chest x-ray today shows persistent bilateral infiltrates with pleural effusions greater on the left and correlate for pneumonia versus CHF. Kidney functions slightly worsening as well and trending up. WBC continues to be elevated and patient is maintained on IV antibiotics. 11/20/2021 Patient is seen in follow-up today continues to be in the ICU with multiple medical consultations following. Patient was recently extubated yesterday and currently maintained on 6 L nasal cannula. patient continues to have GI bleeding with NG tube noted to have bleeding along with dark maroon stools noted. Hemoglobin is 6.5 today and will be receiving a unit of PRBC. WBC remains elevated and continues on IV antibiotics. Patient is nonverbal but follows simple commands. Continues to be in critical condition. To continue with NG tube and TPN for now. Surgery following as well. Today note 11/21/2021 Patient with past medical history of developmental delay living in a custodial presents to the hospital on 10/29 from his custodial after a fall and suspected syncope. On admission he was AAO 1. Patient has prolonged hospitalization since then for more than 3 weeks. Today is lying in the bed in the ICU, unresponsive and does not follow command and does not answer questions. He is been followed by several consultants including neurologist, composition teacher/critical care team and surgery team. He is a status post exploratory laparotomy and surgical resection of part of the stomach and proximal jejunum secondary to ischemic changes and drainage of the adjacent abscess. He has evidence of persistent bilateral pneumonia and kept on Invanz and fluconazole with body fluid culture showing E. coli and Cortney and chest x-ray showing evidence of bilateral infiltrates read also seen on CT of the abdomen, pelvis and chest without contrast: Bilateral pulmonary consolidation and bilateral pleural effusion. He had negative CT of the brain and ejection fraction 60-65%. His receiving TPN and on Lasix 40 mg twice daily. Labs showing leukocytosis of 20, hemoglobin 6.5, sodium 146, creatinine 1.4 with evidence mostly indicating chronic kidney disease stage III. Also history of chronic fever of 100.6 and saturating low 90s on 4 L/m of oxygen. 11/22/2021 Patient remains in the ICU, he is more awake today, he looks at me if I called in by his name however he fails to follow commands, when I asked him if he is in pain he moves his hands little bit on his abdomen, not sure what does not mean exactly. His oxygen requirement slightly worse up to 5 L/m but today he is afebrile. Labs showing slightly improving leukocytosis at 17.8, hemoglobin improved 7.6, sodium 145 and creatinine came down to 1.18. Test x-ray showing decreased left pleural effusion with bilateral consolidation and nodular density in the prior left perihilar region. Patient remains on Invanz, fluconazole, IV Lasix as well as TPN. His wound edges slightly open with gauze soaked but there is no purulent discharge, EBONY drain and place. Rectal tube in place with no blood in it. Zepeda catheter is in place. 11/23/2021 Patient is a status post left thoracocentesis yesterday with a 20 mm of fluid taken out. Today he is more awake and comfortable, he looks at me when I talked to him but he does not follow commands and he does not answer questions. NG tube with green discharge, he has some black stool. EBONY drains with minimal discharge when I examine him, surgical wound is stable. Patient still has PICC line with TPN running. Vitals and labs looked the same, however oxygen is slightly worse with requirement went up from 5-6 L per minute and chest x-ray showing right lower lobe evolving pneumonia however patient remains on the same antibiotics with invanz and fluconazole. Also he is on IV Lasix and TPN 11/24/2021 Patient mentation it's looks the same for the last couple days. No other new complaint. He slightly more tachypneic today. No chest pain or abdominal pain, distal does not follow commands or answer questions. EBONY drain in place and surgery team are following the patient closely. TPN is running and PICC line is in place. Surgical wound looks stable. Rectal tube in place as well. Patient continued with the same treatment of Invanz, fluconazole and Lasix 40 mg IV twice a day 11/25/2021 No much difference clinically from yesterday, he still encephalopathy per neurologist however neurology service signed off as this is looks chronic. Patient NG tube is recommended to be discontinued today and undergo a swallow evaluation to assess nutrition capability Distal getting TPN through his PICC line, surgical wound is healing and EBONY drains are in place with no worsening discharge. He remains on Invanz and fluconazole and IV Lasix 11/26/2021 Patient awake today looks calm, still have rectal tube and Zepeda catheter. He has low-grade temperature of 100.1, he is slightly tachypneic at 21 but he is on room air today. WBCs 13.8, Hemoglobin 8.3, BMP is unremarkable Patient passed a swallow evaluation today and placed on dysphagia II - ground texture diet with nectar thick liquids, straws are okay, and meds whole in puree, 1:1 feed, aspiration precautions. Magic cups were requested for pt . Swallow evaluation recommendation 11/27/2021 Patient awake, severely lethargic, does not follow, most of the time, he would follow some commands occasionally. NG tube was discontinued and started on dysphagia diet yesterday, he is able to tolerate diet with encouragement. Hemodynamically stable. Remains on TPN and PICC line place Surgical wound stable DC'd telemetry Transfer out of the ICU 11/28/2021 Patient is awake similar to the last few days, he does not follow command. Diet is started yesterday and he is tolerating that and been advanced gradually. Surgical wound is healing gradually and surgery team on the case WBC is 11.9, BMP is unremarkable, hemoglobin 8.2 Patient remains on IV Lasix and antibiotics in the form of Invanz and fluconazole. Also his getting TPN Objective - Vital Signs Vital signs: Vital Signs Temp 99.6 F 11/28/21 07:17 Pulse 98 11/28/21 07:17 Resp 26 H 11/28/21 07:17 BP 119/72 11/28/21 07:17 Pulse Ox 100 11/28/21 07:17 Intake & Output 11/27/21 11/28/21 11/28/21 18:59 06:59 18:59 Intake Total 558 100 Output Total 1690 900 Balance -1132 -900 100 Intake: IV 558 Pressure Bag 18 TPN 540 Oral 100 Output: Urine 1690 900 Other: Voiding Method Indwelling Catheter Indwelling Catheter ABP, PAP, CO, CI - Last Documented Arterial Blood Pressure 144/72 - Exam -GENERAL: The patient is awake but does not answer questions,, does not follow commands, does not look in distress. HEENT: Pupils are round and equally reacting to light. EOMI. No scleral icterus. No conjunctival pallor. Normocephalic, atraumatic. No pharyngeal erythema. No thyromegaly. CARDIOVASCULAR: S1 and S2 present. No murmurs, rubs, or gallops. -PULMONARY: Chest is clear to auscultation, no wheezing . Bilateral crepitation and decreased breath sounds -ABDOMEN: Soft, nontender, nondistended, normoactive bowel sounds. No palpable organomegaly. Surgical wound slightly open at the ages with no purulent discharge, EBONY drain in place MUSCULOSKELETAL: No joint swelling or deformity. EXTREMITIES: No cyanosis, clubbing, or pedal edema. NEUROLOGICAL: Gross neurological examination did not reveal any focal deficits. SKIN: No rashes. no petechiae. - Labs CBC & Chem 7: 11/28/21 06:37 11/28/21 06:37 Labs: Abnormal Lab Results - Last 24 Hours (Table) 11/27/21 11/27/21 11/28/21 Range/Units 11:53 17:32 05:30 RBC (4.30-5.90) m/uL Hgb (13.0-17.5) gm/dL Hct (39.0-53.0) % RDW (11.5-15.5) % Neutrophils # (1.3-7.7) k/uL Sodium (137-145) mmol/L BUN (9-20) mg/dL Glucose (74-99) mg/dL POC Glucose (mg/dL) 139 H 125 H 127 H (75-99) mg/dL Ionized Calcium Azucena (4.5-5.3) mg/dL 11/28/21 11/28/21 Range/Units 06:37 06:37 RBC 2.76 L (4.30-5.90) m/uL Hgb 8.2 L (13.0-17.5) gm/dL Hct 26.2 L (39.0-53.0) % RDW 16.8 H (11.5-15.5) % Neutrophils # 8.0 H (1.3-7.7) k/uL Sodium 136 L (137-145) mmol/L BUN 51 H (9-20) mg/dL Glucose 121 H (74-99) mg/dL POC Glucose (mg/dL) (75-99) mg/dL Ionized Calcium Azucena 5.8 H (4.5-5.3) mg/dL Assessment and Plan Assessment: Bilateral aspiration pneumonia Ischemia of the lateral portion of the stomach and proximal jejunum, status post partial gastrectomy on 10/30 Pneumoperitoneum and upper abdominal abscess status post exploratory laparotomy on and small bowel resection on 11/12 Toxic/metabolic encephalopathy Mostly chronic kidney disease, stage III Developmental delay, was on a custodial Plan: This is a pleasant 51 years old male who presents with bowel ischemia status post resection, aspiration pneumonia. Continue with Invanz, fluconazole: Continue with IV Lasix Continue with rectal tube Start dysphagia diet with aspiration precautions transfer out of the ICU Follow-up recommendation by pulmonary/critical care team, surgery team, and the neurologist Labs and medication were reviewed.. Continue same treatment. Continue with symptomatic treatment. Resume home medication. Monitor lytes and vitals. DVT and GI prophylaxis. Further recommendations as per clinical course of the patient Prognosis is extremely guarded
[2021-11-28] MEDS: SCOPOLAMINE 1 MG/72 HR PATCH TRANSDERM SCH (13:00)
[2021-11-28 16:49] LABS: Glucose,Whole Blood 141 mg/dL (75-99)
[2021-11-28] MEDS: [UNRECOGNIZED DRUG - REMARK] IV SCH ×10 (22:29→22:44)
[2021-11-28 23:20] LABS: Glucose,Whole Blood 103 mg/dL (75-99)
[2021-11-29] MEDS: METOCLOPRAMIDE 5 MG/ML 2 ML VIAL IVP SCH ×2 (01:52→09:58)
[2021-11-29 05:25] LABS: Glucose,Whole Blood 120 mg/dL (75-99)
[2021-11-29] MEDS: INSULIN ASPART (NovoLOG) 100 UNIT/ML VIAL SQ SCH ×3 (05:27→18:17)
[2021-11-29] MEDS: LORazepam 2 MG/ML INJ IV SCH ×3 (05:38→18:08)
[2021-11-29 06:57] LABS: African American GFR (CKD) 78 (>60 ml/min/1.73 sqM); Anion Gap 8 mmol/L; Blood Urea Nitrogen 53 mg/dL (9-20); Calcium 9.9 mg/dL (8.4-10.2); Carbon Dioxide 21 mmol/L (22-30); Chloride 110 mmol/L (98-107); Glucose 124 mg/dL (74-99); Magnesium 2.1 mg/dL (1.6-2.3); Non-African American GFR(CKD) 68 (>60 ml/min/1.73 sqM); Potassium 4.1 mmol/L (3.5-5.1); Sodium 139 mmol/L (137-145)
[2021-11-29] MEDS: ERTAPENEM 1 GM in SODIUM CHLORIDE 0.9% 50 ML IVPB SCH (08:47)
[2021-11-29] MEDS: FLUCONAZOLE IN NACL,ISO-OSM 400 MG in SALINE 1 200ML.BAG IVPB SCH (08:47)
[2021-11-29] MEDS: FUROSEMIDE 10 MG/ML 4 ML VIAL IV SCH ×2 (08:49→21:05)
[2021-11-29] MEDS: PANTOPRAZOLE 40 MG/10 ML VIAL IVP SCH ×2 (08:49→21:05)
[2021-11-29] MEDS: HYDROPHILIC CREAM 180 GM TUBE TOPICAL SCH (08:50)
[2021-11-29] MEDS: IPRATROPIUM-ALBUTEROL 3 ML NEB INHALATION SCH ×3 (09:22→20:34)
[2021-11-29 10:29] LABS: Anisocytosis Slight; Basophils # (A) 0.2 k/uL (0-0.2); Basophils % (A) 1 %; Eosinophils # (A) 0.5 k/uL (0-0.7); Eosinophils % (A) 4 %; HCT 29.7 % (39.0-53.0); HGB 8.6 gm/dL (13.0-17.5); Hypochromasia Marked; Lymphocytes # (A) 1.2 k/uL (1.0-4.8); Lymphocytes % (A) 9 %; MCH 28.5 pg (25.0-35.0); MCV 98.3 fL (80.0-100.0); Macrocytosis Slight; Mean Platelet Volume 9.3; Monocytes # (A) 0.9 k/uL (0-1.0); Monocytes % (A) 6 %; Neutrophils # (A) 10.8 k/uL (1.3-7.7); Neutrophils % (A) 79 %; Platelet Count 354 k/uL (150-450); RBC 3.02 m/uL (4.30-5.90); RDW 16.4 % (11.5-15.5); WBC 13.6 k/uL (3.8-10.6)
--- NOTE | 2021-11-29 13:29 | P.PN ---
Subjective Progress Note Date: 11/29/21 CHIEF COMPLAINT: Abdominal pain HISTORY OF PRESENT ILLNES: Patient is on regular medical floor. He is having a lot of stool output and has fecal management system in place. Stool is brown. No evidence of bleeding. He did have a low-grade temp of 100 this morning. Eating only a small amount. WBC is up from 10.2-13.6 hemoglobin 8.6 platelets 354 creatinine 1.22 PHYSICAL EXAM: VITAL SIGNS: Reviewed. GENERAL: Patient is more awake and responsive. He does say a few words. HEENT: Moist buccal mucosa. Head is atraumatic, normocephalic. ABDOMEN: Soft. Nondistended. Abdominal dressing clean dry and intact. EBONY drains with minimal output serous in color ASSESSMENT: 1. Pneumoperitoneum, suspected gastric leak and section of proximal jejunum with ischemic changes status post exploratory laparotomy, drainage of upper abdominal abscess, lysis of adhesions and small bowel resection on 11/12/21 2. Ischemia of the lateral portion of the stomach and mild ischemia of the proximal jejunum status post exploratory laparotomy and partial gastrectomy on 10/30/21 3. Septic shock 4. Postoperative ileus resolved 5. Thrombocytopenia resolved 6. Possible aspiration pneumonia 7. Anemia 8. Left Pleural effusion status post thoracentesis PLAN: -Discontinue Reglan -Continue ground diet. Continue to advance diet per speech therapist's recommendations -Continue supportive care -Continue local wound care -Continue to monitor hemoglobin -Continue to monitor EBONY drain output -Continue antibiotics -Continue TPN for nutrition support until oral intake has increased -CODE STATUS DO NOT RESUSCITATE/DO NOT INTUBATE Physician System Configuration Specialist note has been reviewed by physician. Signing provider agrees with the documented findings, assessment, and plan of care. Objective - Vital Signs Vital signs: Vital Signs Temp 100.0 F H 11/29/21 07:11 Pulse 88 11/29/21 12:03 Resp 26 H 11/29/21 10:18 BP 123/76 11/29/21 07:11 Pulse Ox 98 11/29/21 07:11 Intake & Output 11/28/21 11/29/21 11/29/21 18:59 06:59 18:59 Intake Total 358 Output Total 1200 1550 800 Balance -238 -1529 -800 Weight 69.2 kg 69.2 kg Intake: IV 258 Ertapenem 1 gm In Sodium 50 Chloride 0.9% 50 ml @ 100 mls/hr IVPB DAILY [facility] Rx #:[id number] Fluconazole in NaCl,Iso- 100 Osm 400 mg In Saline 1 200ml.bag @ 100 mls/hr IVPB DAILY [facility] Rx#: [id number] TPN 108 Oral 100 Output: Urine 1200 1550 500 Stool 300 Other: Voiding Method Indwelling Catheter Indwelling Catheter Indwelling Catheter ABP, PAP, CO, CI - Last Documented Arterial Blood Pressure 144/72 - Labs CBC & Chem 7: 11/29/21 06:25 11/29/21 06:25 Labs: Abnormal Lab Results - Last 24 Hours (Table) 11/28/21 11/28/21 11/29/21 Range/Units 16:47 23:19 05:24 WBC (3.8-10.6) k/uL RBC (4.30-5.90) m/uL Hgb (13.0-17.5) gm/dL Hct (39.0-53.0) % MCHC (31.0-37.0) g/dL RDW (11.5-15.5) % Neutrophils # (1.3-7.7) k/uL Chloride (98-107) mmol/L Carbon Dioxide (22-30) mmol/L BUN (9-20) mg/dL Glucose (74-99) mg/dL POC Glucose (mg/dL) 141 H 103 H 120 H (75-99) mg/dL 11/29/21 11/29/21 Range/Units 06:25 06:25 WBC 13.6 H (3.8-10.6) k/uL RBC 3.02 L (4.30-5.90) m/uL Hgb 8.6 L (13.0-17.5) gm/dL Hct 29.7 L (39.0-53.0) % MCHC 29.0 L (31.0-37.0) g/dL RDW 16.4 H (11.5-15.5) % Neutrophils # 10.8 H (1.3-7.7) k/uL Chloride 110 H (98-107) mmol/L Carbon Dioxide 21 L (22-30) mmol/L BUN 53 H (9-20) mg/dL Glucose 124 H (74-99) mg/dL POC Glucose (mg/dL) (75-99) mg/dL
[2021-11-29 17:06] LABS: Glucose,Whole Blood 124 mg/dL (75-99)
[2021-11-29] MEDS: [UNRECOGNIZED DRUG - REMARK] IV SCH ×5 (22:30)
[2021-11-30] MEDS: LORazepam 2 MG/ML INJ IV SCH ×2 (00:35→06:22)
[2021-11-30 00:37] LABS: Glucose,Whole Blood 146 mg/dL (75-99)
[2021-11-30] MEDS: INSULIN ASPART (NovoLOG) 100 UNIT/ML VIAL SQ SCH ×4 (00:43→17:36)
[2021-11-30 06:23] LABS: Glucose,Whole Blood 146 mg/dL (75-99)
[2021-11-30 07:20] LABS: African American GFR (CKD) 76 (>60 ml/min/1.73 sqM); Anion Gap 6 mmol/L; Blood Urea Nitrogen 57 mg/dL (9-20); Calcium 10.2 mg/dL (8.4-10.2); Carbon Dioxide 23 mmol/L (22-30); Chloride 110 mmol/L (98-107); Glucose 133 mg/dL (74-99); Non-African American GFR(CKD) 66 (>60 ml/min/1.73 sqM); Phosphorus 4.3 mg/dL (2.5-4.5); Potassium 4.5 mmol/L (3.5-5.1); Sodium 139 mmol/L (137-145)
[2021-11-30] MEDS: PANTOPRAZOLE 40 MG/10 ML VIAL IVP SCH ×2 (07:22→20:42)
[2021-11-30] MEDS: FUROSEMIDE 10 MG/ML 4 ML VIAL IV SCH ×2 (07:22→20:41)
[2021-11-30] MEDS: ERTAPENEM 1 GM in SODIUM CHLORIDE 0.9% 50 ML IVPB SCH (07:22)
[2021-11-30] MEDS: HYDROPHILIC CREAM 180 GM TUBE TOPICAL SCH (07:31)
[2021-11-30] MEDS: FLUCONAZOLE IN NACL,ISO-OSM 400 MG in SALINE 1 200ML.BAG IVPB SCH (08:21)
[2021-11-30] MEDS: IPRATROPIUM-ALBUTEROL 3 ML NEB INHALATION SCH ×3 (08:47→19:01)
[2021-11-30] MEDS ORDERED: LORazepam 2 MG/ML INJ IV PRN (11:25)
--- NOTE | 2021-11-30 11:30 | P.PN ---
Progress Note - Text Progress Note Date: 11/30/21 Patient is clinically unchanged. Apparently is getting Ativan scheduled. The patient was quite sedated this morning. On exam vitals are stable. Abdomen soft. Wound is clean. Status post stomach and small bowel resection. Patient has improved considerably over the last 2 weeks. Patient to receive supportive care. The medical service will address the need for scheduled Ativan
[2021-11-30 12:37] LABS: Glucose,Whole Blood 142 mg/dL (75-99)
[2021-11-30 17:28] LABS: Glucose,Whole Blood 143 mg/dL (75-99)
[2021-11-30] MEDS: [UNRECOGNIZED DRUG - REMARK] IV SCH ×5 (20:41)
[2021-12-01 00:35] LABS: Glucose,Whole Blood 143 mg/dL (75-99)
[2021-12-01] MEDS: INSULIN ASPART (NovoLOG) 100 UNIT/ML VIAL SQ SCH ×4 (01:10→17:36)
--- NOTE | 2021-12-01 04:21 | P.PN ---
Subjective Progress Note Date: 11/30/21 From the records, patient could not provide information Patient was admitted for nausea vomiting diarrhea believed to have gastroenteritis. Patient continued to have vomiting and started having abdominal tenderness because of which CT of the abdomen was obtained which showed pneumatosis coli along with some gas in the venous system concern for ischemic bowel. Patient was started on Zosyn. Patient subsequently decompensated patient became hypotensive with BP of 60/40 transferred to ICU patient was given 3 L of boluses of IV fluid NG tube was placed which showed bloody output . Patient in septic shock and receiving norepinephrine at this time. Recent echo showed normal ejection fraction. Patient had CTA of the chest which was negative for pulmonary embolism patient creatinine has worsened and went up to 2.80 today from 1.14 yesterday and this is secondary to acute tubular necrosis from sepsis and septic shock. Patient does have lactic acidosis, patient does have lactic acidosis with lactic acidosis 7.5. Patient will be given 1 L of IV fluids continue pressor support. he is intubated and sedated. 10/31/2021 Patient is started having urine output. Patient underwent a arthrotomy yesterday and found to have ischemia of the lateral portion of the stomach and ischemia of the proximal jejunum patient underwent partial gastrectomy. Patient is presently on that to pressors maximized on norepinephrine, patient is also on vasopressin receiving albumin, IV fluids started having minimal urine output patient was anuric last night. Patient's chloride is highly elevated leading to metabolic acidosis patient also has an anion gap metabolic acidosis from lactic acidosis which appears to be improving at this time patient's overall clinical condition is guarded and the prognosis is poor. Patient Y blood cell count went down in fact patient is neutropenic now. Patient is presently not receiving any nutrition at this time. 11/18/2021 Patient is seen and evaluated in follow up this morning and continues to be in the ICU and was reintubated again this morning. Chest xray shows CHF and pleural effusions as previously noted. No evidence of pneumothorax. Patient continues with an FI02 of 50% and peep is 5. Patient continues on sedation. Patient to continue with IV antibiotics and also antifungals. WBC is elevated. Per nursing staff, hemoglobin is 5.9 and bleeding from NG tube. Patient to receive 2 units of PRBC. 11/19/2021 Patient is seen in follow-up this morning closely monitored with multiple medical consultations following. Patient continues on mechanical vent with an FiO2 of 35% and PEEP is 5. Patient's hemoglobin is 6.7 today and continues with bleeding noted in the NG tube. Patient is to receive another unit of PRBCs and will continue to monitor hemoglobin and bleeding closely. Weaning parameters are continuously being assessed and possible extubation in the next day or so per pulmonary. Brother at the bedside and is agreeable with no CODE STATUS and no further intubations as patient has been also intubated multiple times this admission and continues to deteriorate. Chest x-ray today shows persistent bilateral infiltrates with pleural effusions greater on the left and correlate for pneumonia versus CHF. Kidney functions slightly worsening as well and trending up. WBC continues to be elevated and patient is maintained on IV antibiotics. 11/20/2021 Patient is seen in follow-up today continues to be in the ICU with multiple medical consultations following. Patient was recently extubated yesterday and currently maintained on 6 L nasal cannula. patient continues to have GI bleeding with NG tube noted to have bleeding along with dark maroon stools noted. Hemoglobin is 6.5 today and will be receiving a unit of PRBC. WBC remains jacob vated and continues on IV antibiotics. Patient is nonverbal but follows simple commands. Continues to be in critical condition. To continue with NG tube and TPN for now. Surgery following as well. Today note 11/21/2021 Patient with past medical history of developmental delay living in a custodial presents to the hospital on 10/29 from his custodial after a fall and suspected syncope. On admission he was AAO 1. Patient has prolonged hospitalization since then for more than 3 weeks. Today is lying in the bed in the ICU, unresponsive and does not follow command and does not answer questions. He is been followed by several consultants including neurologist, healthcare recruiter/critical care team and surgery team. He is a status post exploratory laparotomy and surgical resection of part of the stomach and proximal jejunum secondary to ischemic changes and drainage of the adjacent abscess. He has evidence of persistent bilateral pneumonia and kept on Invanz and fluconazole with body fluid culture showing E. coli and Cortney and chest x-ray showing evidence of bilateral infiltrates read also seen on CT of the abdomen, pelvis and chest without contrast: Bilateral pulmonary consolidation and bilateral pleural effusion. He had negative CT of the brain and ejection fraction 60-65%. His receiving TPN and on Lasix 40 mg twice daily. Labs showing leukocytosis of 20, hemoglobin 6.5, sodium 146, creatinine 1.4 with evidence mostly indicating chronic kidney disease stage III. Also history of chronic fever of 100.6 and saturating low 90s on 4 L/m of oxygen. 11/22/2021 Patient remains in the ICU, he is more awake today, he looks at me if I called in by his name however he fails to follow commands, when I asked him if he is in pain he moves his hands little bit on his abdomen, not sure what does not mean exactly. His oxygen requirement slightly worse up to 5 L/m but today he is afeb rile. Labs showing slightly improving leukocytosis at 17.8, hemoglobin improved 7.6, sodium 145 and creatinine came down to 1.18. Test x-ray showing decreased left pleural effusion with bilateral consolidation and nodular density in the prior left perihilar region. Patient remains on Invanz, fluconazole, IV Lasix as well as TPN. His wound edges slightly open with gauze soaked but there is no purulent discharge, EBONY drain and place. Rectal tube in place with no blood in it. Rivas catheter is in place. 11/23/2021 Patient is a status post left thoracocentesis yesterday with a 20 mm of fluid taken out. Today he is more awake and comfortable, he looks at me when I talked to him but he does not follow commands and he does not answer questions. NG tube with green discharge, he has some black stool. EBONY drains with minimal discharge when I examine him, surgical wound is stable. Patient still has PICC line with TPN running. Vitals and labs looked the same, however oxygen is slightly worse with requirement went up from 5-6 L per minute and chest x-ray showing right lower lobe evolving pneumonia however patient remains on the same antibiotics with invanz and fluconazole. Also he is on IV Lasix and TPN 11/24/2021 Patient mentation it's looks the same for the last couple days. No other new complaint. He slightly more tachypneic today. No chest pain or abdominal pain, distal does not follow commands or answer questions. EBONY drain in place and surgery team are following the patient closely. TPN is running and PICC line is in place. Surgical wound looks stable. Rectal tube in place as well. Patient continued with the same treatment of Invanz, fluconazole and Lasix 40 mg IV twice a day 11/25/2021 No much difference clinically from yesterday, he still encephalopathy per neurol ogist however neurology service signed off as this is looks chronic. Patient NG tube is recommended to be discontinued today and undergo a swallow evaluation to assess nutrition capability Distal getting TPN through his PICC line, surgical wound is healing and EBONY drains are in place with no worsening discharge. He remains on Invanz and fluconazole and IV Lasix 11/26/2021 Patient awake today looks calm, still have rectal tube and Rivas catheter. He has low-grade temperature of 100.1, he is slightly tachypneic at 21 but he is on room air today. WBCs 13.8, Hemoglobin 8.3, BMP is unremarkable Patient passed a swallow evaluation today and placed on dysphagia II - ground texture diet with nectar thick liquids, straws are okay, and meds whole in puree, 1:1 feed, aspiration precautions. Magic cups were requested for pt . Swallow evaluation recommendation 11/27/2021 Patient awake, severely lethargic, does not follow, most of the time, he would follow some commands occasionally. NG tube was discontinued and started on dysphagia diet yesterday, he is able to tolerate diet with encouragement. Hemodynamically stable. Remains on TPN and PICC line place Surgical wound stable DC'd telemetry Transfer out of the ICU 11/28/2021 Patient is awake similar to the last few days, he does not follow command. Diet is started yesterday and he is tolerating that and been advanced gradually. Surgical wound is healing gradually and surgery team on the case WBC is 11.9, BMP is unremarkable, hemoglobin 8.2 Patient remains on IV Lasix and antibiotics in the form of Invanz and fluconazole. Also his getting TPN 11/30/2021 Patient is seen and evaluated in follow-up this morning currently on [facility] unit being closely monitored. General surgery along with pulmonary and ID following. Patient is continued on Invanz and fluconazole. Patient is on room air and continued breathing inhalational treatments. Patient continued on IV lasix. Continues to have EBONY drain, indwelling rivas catheter and fecal management system. Patient is eating and recommend to maintain strict aspiration precaution with head of the bead elevated 30-45 degrees and supervision with meals at all times. Patient continues with confusion although appears baseline as patient is autistic. Review of systems: unable to obtain as patient is confused Active Medications Albuterol/Ipratropium (Ipratropium-Albuterol 3 Ml Neb) 3 ml INHALATION RT-TID [facility] Last Admin: 11/30/21 12:17 Dose: 3 ml Documented by: Atropine Sulfate (Atropine Ophth Soln 1% 5ml Btl) 2 drops SUBLINGUAL Q4HR PRN PRN Reason: Excess Secretions Furosemide (Furosemide 10 Mg/Ml 4 Ml Vial) 40 mg IV Q12HR [facility] Last Admin: 11/30/21 07:22 Dose: 40 mg Documented by: Hydromorphone HCl (Hydromorphone 0.5 Mg/0.5 Ml Syringe) 0.5 mg IVP Q3HR PRN PRN Reason: Pain Last Admin: 11/26/21 20:49 Dose: 0.5 mg Documented by: Fluconazole/Sodium Chloride (400 mg/ IV Solution) 200 mls @ 100 mls/hr IVPB DAILY [facility]; Protocol Last Admin: 11/30/21 08:21 Dose: 100 mls/hr Documented by: Ertapenem 1 gm/ Sodium (Chloride) 50 mls @ 100 mls/hr IVPB DAILY [facility]; Protocol Last Admin: 11/30/21 07:22 Dose: 100 mls/hr Documented by: Fat Emulsion Intravenous 500 (ml/ IV Solution) 500 mls @ 42 mls/hr IV Q7D [facility] Last Admin: 11/25/21 20:08 Dose: 42 mls/hr Documented by: Parenteral Vitamin Supplement 10 ml/ Zinc/Copper/Manganese/Selenium 1 ml/ Potassium Chloride 90 meq/ Sodium Acetate 40 meq/ Amino Acids/Dextrose 2,076 mls @ 90 mls/hr IV .BY DURATION [facility] Last Admin: 11/29/21 22:30 Dose: 90 mls/hr Documented by: Potassium Chloride 90 meq/Sodium Acetate 40 meq/ Amino Acids/Dextrose 2,065 mls @ 90 mls/hr IV .BY DURATION [facility] Last Admin: 11/28/21 22:29 Dose: 90 mls/hr Documented by: Insulin Aspart (Insulin Aspart (Novolog) 100 Unit/Ml Vial) 0 unit SQ Q6HR [facility]; Protocol Last Admin: 11/30/21 06:25 Dose: 1 unit Documented by: Lorazepam (Lorazepam 2 Mg/Ml Inj) 0.5 mg IV Q6HR PRN PRN Reason: Agitation or Acute Anxiety Miscellaneous Information (Potassium Replacement Protocol 1 Each Misc) 1 each MISCELLANE DAILY PRN; Protocol PRN Reason: Per Protocol Miscellaneous Information (Magnesium Replacement Protocol 1 Each Misc) 1 each MISCELLANE DAILY PRN; Protocol PRN Reason: Per Protocol Multi-Ingred Cream/Lotion/Oil/Oint (Hydrophilic Cream 180 Gm Tube) 1 applic TOPICAL DAILY [facility]; Protocol Last Admin: 11/30/21 07:31 Dose: 1 applic Documented by: Ondansetron HCl (Ondansetron 4 Mg/2 Ml Vial) 4 mg IVP Q8HR PRN PRN Reason: Nausea And Vomiting Last Admin: 11/16/21 12:00 Dose: 4 mg Documented by: Pantoprazole Sodium (Pantoprazole 40 Mg/10 Ml Vial) 40 mg IVP BID [facility] Last Admin: 11/30/21 07:22 Dose: 40 mg Documented by: Scopolamine (Scopolamine 1.5mg/72hr Patch) 1 patch TRANSDERM Q72H [facility] Last Admin: 11/28/21 13:00 Dose: 1 patch Documented by: Physical exam: GENERAL: The patient is awake but does not answer questions,, does not follow commands, does not look in distress. 97% on room air HEENT: Pupils are round and equally reacting to light. EOMI. No scleral icterus. No conjunctival pallor. Normocephalic, atraumatic. No pharyngeal erythema. No thyromegaly. CARDIOVASCULAR: S1 and S2 present. No murmurs, rubs, or gallops. PULMONARY: Chest is clear to auscultation, no wheezing . Bilateral crepitation and decreased breath sounds ABDOMEN: Soft, nontender, nondistended, normoactive bowel sounds. No palpable organomegaly. Surgical wound slightly open at the end with no purulent discharge, EBONY drain in place MUSCULOSKELETAL: No joint swelling or deformity. EXTREMITIES: No cyanosis, clubbing, or pedal edema. NEUROLOGICAL: Gross neurological examination did not reveal any focal deficits. diffuse weakness SKIN: No rashes. no petechiae. Assessment: Bilateral aspiration pneumonia Ischemia of the lateral portion of the stomach and proximal jejunum, status post partial gastrectomy on 10/30 Pneumoperitoneum and upper abdominal abscess status post exploratory laparotomy on and small bowel resection on 11/12 Toxic/metabolic encephalopathy Mostly chronic kidney disease, stage III Developmental delay, autistic, lives in a custodial No code Plan: This is a pleasant 51 years old male who presents with bowel ischemia status post resection, aspiration pneumonia. Continue with Invanz, fluconazole: Continue with IV Lasix Pulmonary, surgery, and ID following Continue with rectal tube Continue dysphagia diet with aspiration precautions PT/OT to evaluate. consult case management and social work for possible ECF repeat labs ordered Prognosis is extremely guarded The impression and plan of care has been dictated by Rozina Nam, Nurse Practitioner as directed. Dr. Christina MD I have performed a history and examination and MDM of this patient, discussed the same with the dictator, and agree with the dictator's assessment and plan as written ,documented as a scribe. Based on total visit time, I have performed more than 50% of the visit. Objective - Vital Signs Vital signs: Vital Signs Temp 98.1 F 11/30/21 04:38 Pulse 82 11/30/21 08:47 Resp 16 11/30/21 04:38 BP 135/77 11/30/21 04:38 Pulse Ox 97 11/30/21 04:38 Intake & Output 11/29/21 11/30/21 11/30/21 18:59 06:59 18:59 Intake Total 1330 Output Total 1650 1300 Balance -320 -1300 Weight 69.2 kg Intake: IV 1330 Ertapenem 1 gm In Sodium 50 Chloride 0.9% 50 ml @ 100 mls/hr IVPB DAILY [facility] Rx #:[id number] Fluconazole in NaCl,Iso- 200 Osm 400 mg In Saline 1 200ml.bag @ 100 mls/hr IVPB DAILY [facility] Rx#: [id number] TPN 1080 Output: Drainage 50 Left Abdomen 20 Right Abdomen 30 Urine 1300 1300 Stool 300 Other: Voiding Method Indwelling Catheter Indwelling Catheter ABP, PAP, CO, CI - Last Documented Arterial Blood Pressure 144/72 - Labs CBC & Chem 7: 11/29/21 06:25 11/30/21 06:34 Labs: Abnormal Lab Results - Last 24 Hours (Table) 11/29/21 11/29/21 11/30/21 Range/Units 06:25 17:04 00:35 WBC 13.6 H (3.8-10.6) k/uL RBC 3.02 L (4.30-5.90) m/uL Hgb 8.6 L (13.0-17.5) gm/dL Hct 29.7 L (39.0-53.0) % MCHC 29.0 L (31.0-37.0) g/dL RDW 16.4 H (11.5-15.5) % Neutrophils # 10.8 H (1.3-7.7) k/uL Chloride (98-107) mmol/L BUN (9-20) mg/dL Glucose (74-99) mg/dL POC Glucose (mg/dL) 124 H 146 H (75-99) mg/dL 11/30/21 11/30/21 Range/Units 06:22 06:34 WBC (3.8-10.6) k/uL RBC (4.30-5.90) m/uL Hgb (13.0-17.5) gm/dL Hct (39.0-53.0) % MCHC (31.0-37.0) g/dL RDW (11.5-15.5) % Neutrophils # (1.3-7.7) k/uL Chloride 110 H (98-107) mmol/L BUN 57 H (9-20) mg/dL Glucose 133 H (74-99) mg/dL POC Glucose (mg/dL) 146 H (75-99) mg/dL
[2021-12-01 05:21] LABS: Glucose,Whole Blood 139 mg/dL (75-99)
[2021-12-01 07:14] LABS: Glucose,Whole Blood 138 mg/dL (75-99)
[2021-12-01] MEDS: IPRATROPIUM-ALBUTEROL 3 ML NEB INHALATION SCH ×3 (07:41→20:10)
[2021-12-01 08:10] LABS: African American GFR (CKD) 81 (>60 ml/min/1.73 sqM); Anion Gap 10 mmol/L; Blood Urea Nitrogen 64 mg/dL (9-20); Calcium 10.6 mg/dL (8.4-10.2); Carbon Dioxide 20 mmol/L (22-30); Chloride 110 mmol/L (98-107); Glucose 125 mg/dL (74-99); Magnesium 1.9 mg/dL (1.6-2.3); Non-African American GFR(CKD) 70 (>60 ml/min/1.73 sqM); Sodium 140 mmol/L (137-145)
[2021-12-01 08:16] LABS: Anisocytosis Slight; Basophils # (A) 0.1 k/uL (0-0.2); Basophils % (A) 1 %; Eosinophils # (A) 0.7 k/uL (0-0.7); Eosinophils % (A) 5 %; HCT 28.7 % (39.0-53.0); HGB 8.8 gm/dL (13.0-17.5); Hypochromasia Marked; Lymphocytes # (A) 0.9 k/uL (1.0-4.8); Lymphocytes % (A) 7 %; MCH 31.5 pg (25.0-35.0); MCHC 30.8 g/dL (31.0-37.0); MCV 102.2 fL (80.0-100.0); Macrocytosis Slight; Mean Platelet Volume 10.1; Monocytes # (A) 0.6 k/uL (0-1.0); Monocytes % (A) 5 %; Neutrophils # (A) 10.5 k/uL (1.3-7.7); Neutrophils % (A) 80 %; Platelet Count 218 k/uL (150-450); RBC 2.81 m/uL (4.30-5.90); RDW 16.3 % (11.5-15.5); WBC 13.1 k/uL (3.8-10.6)
[2021-12-01 08:29] LABS: Potassium 4.8 mmol/L (3.5-5.1)
[2021-12-01] MEDS: FUROSEMIDE 10 MG/ML 4 ML VIAL IV SCH ×2 (09:16→21:24)
[2021-12-01] MEDS: PANTOPRAZOLE 40 MG/10 ML VIAL IVP SCH ×2 (09:16→21:23)
[2021-12-01] MEDS: HYDROPHILIC CREAM 180 GM TUBE TOPICAL SCH (09:17)
[2021-12-01] MEDS: ERTAPENEM 1 GM in SODIUM CHLORIDE 0.9% 50 ML IVPB SCH (09:17)
[2021-12-01] MEDS: FLUCONAZOLE IN NACL,ISO-OSM 400 MG in SALINE 1 200ML.BAG IVPB SCH (10:05)
[2021-12-01 12:27] LABS: Glucose,Whole Blood 151 mg/dL (75-99)
--- NOTE | 2021-12-01 12:34 | P.PN ---
Progress Note - Text Progress Note Date: 12/01/21 Patient remains essentially unchanged. He has a mild cytosis with a white count of 13. On exam vital signs appear stable. Abdomen soft. Wound is clean. Status post partial gastrectomy and small bowel resection for ischemia. Patient will see receive supportive care.
[2021-12-01] MEDS: SCOPOLAMINE 1 MG/72 HR PATCH TRANSDERM SCH (12:44)
[2021-12-01 17:32] LABS: Glucose,Whole Blood 130 mg/dL (75-99)
[2021-12-01] MEDS: [UNRECOGNIZED DRUG - REMARK] IV SCH ×5 (17:38)
--- NOTE | 2021-12-01 18:21 | P.PN ---
Subjective Progress Note Date: 12/01/21 From the records, patient could not provide information Patient was admitted for nausea vomiting diarrhea believed to have gastroenteritis. Patient continued to have vomiting and started having abdominal tenderness because of which CT of the abdomen was obtained which showed pneumatosis coli along with some gas in the venous system concern for ischemic bowel. Patient was started on Zosyn. Patient subsequently decompensated patient became hypotensive with BP of 60/40 transferred to ICU patient was given 3 L of boluses of IV fluid NG tube was placed which showed bloody output . Patient in septic shock and receiving norepinephrine at this time. Recent echo showed normal ejection fraction. Patient had CTA of the chest which was negative for pulmonary embolism patient creatinine has worsened and went up to 2.80 today from 1.14 yesterday and this is secondary to acute tubular necrosis from sepsis and septic shock. Patient does have lactic acidosis, patient does have lactic acidosis with lactic acidosis 7.5. Patient will be given 1 L of IV fluids continue pressor support. he is intubated and sedated. 10/31/2021 Patient is started having urine output. Patient underwent a arthrotomy yesterday and found to have ischemia of the lateral portion of the stomach and ischemia of the proximal jejunum patient underwent partial gastrectomy. Patient is presently on that to pressors maximized on norepinephrine, patient is also on vasopressin receiving albumin, IV fluids started having minimal urine output patient was anuric last night. Patient's chloride is highly elevated leading to metabolic acidosis patient also has an anion gap metabolic acidosis from lactic acidosis which appears to be improving at this time patient's overall clinical condition is guarded and the prognosis is poor. Patient Y blood cell count went down in fact patient is neutropenic now. Patient is presently not receiving any nutrition at this time. 11/18/2021 Patient is seen and evaluated in follow up this morning and continues to be in the ICU and was reintubated again this morning. Chest xray shows CHF and pleural effusions as previously noted. No evidence of pneumothorax. Patient continues with an FI02 of 50% and peep is 5. Patient continues on sedation. Patient to continue with IV antibiotics and also antifungals. WBC is elevated. Per nursing staff, hemoglobin is 5.9 and bleeding from NG tube. Patient to receive 2 units of PRBC. 11/19/2021 Patient is seen in follow-up this morning closely monitored with multiple medical consultations following. Patient continues on mechanical vent with an FiO2 of 35% and PEEP is 5. Patient's hemoglobin is 6.7 today and continues with bleeding noted in the NG tube. Patient is to receive another unit of PRBCs and will continue to monitor hemoglobin and bleeding closely. Weaning parameters are continuously being assessed and possible extubation in the next day or so per pulmonary. Brother at the bedside and is agreeable with no CODE STATUS and no further intubations as patient has been also intubated multiple times this admission and continues to deteriorate. Chest x-ray today shows persistent bilateral infiltrates with pleural effusions greater on the left and correlate for pneumonia versus CHF. Kidney functions slightly worsening as well and trending up. WBC continues to be elevated and patient is maintained on IV antibiotics. 11/20/2021 Patient is seen in follow-up today continues to be in the ICU with multiple medical consultations following. Patient was recently extubated yesterday and currently maintained on 6 L nasal cannula. patient continues to have GI bleeding with NG tube noted to have bleeding along with dark maroon stools noted. Hemoglobin is 6.5 today and will be receiving a unit of PRBC. WBC remains jacob vated and continues on IV antibiotics. Patient is nonverbal but follows simple commands. Continues to be in critical condition. To continue with NG tube and TPN for now. Surgery following as well. Today note 11/21/2021 Patient with past medical history of developmental delay living in a alf presents to the hospital on 10/29 from his alf after a fall and suspected syncope. On admission he was AAO 1. Patient has prolonged hospitalization since then for more than 3 weeks. Today is lying in the bed in the ICU, unresponsive and does not follow command and does not answer questions. He is been followed by several consultants including neurologist, lock assembler/critical care team and surgery team. He is a status post exploratory laparotomy and surgical resection of part of the stomach and proximal jejunum secondary to ischemic changes and drainage of the adjacent abscess. He has evidence of persistent bilateral pneumonia and kept on Invanz and fluconazole with body fluid culture showing E. coli and Cortney and chest x-ray showing evidence of bilateral infiltrates read also seen on CT of the abdomen, pelvis and chest without contrast: Bilateral pulmonary consolidation and bilateral pleural effusion. He had negative CT of the brain and ejection fraction 60-65%. His receiving TPN and on Lasix 40 mg twice daily. Labs showing leukocytosis of 20, hemoglobin 6.5, sodium 146, creatinine 1.4 with evidence mostly indicating chronic kidney disease stage III. Also history of chronic fever of 100.6 and saturating low 90s on 4 L/m of oxygen. 11/22/2021 Patient remains in the ICU, he is more awake today, he looks at me if I called in by his name however he fails to follow commands, when I asked him if he is in pain he moves his hands little bit on his abdomen, not sure what does not mean exactly. His oxygen requirement slightly worse up to 5 L/m but today he is afeb rile. Labs showing slightly improving leukocytosis at 17.8, hemoglobin improved 7.6, sodium 145 and creatinine came down to 1.18. Test x-ray showing decreased left pleural effusion with bilateral consolidation and nodular density in the prior left perihilar region. Patient remains on Invanz, fluconazole, IV Lasix as well as TPN. His wound edges slightly open with gauze soaked but there is no purulent discharge, EBONY drain and place. Rectal tube in place with no blood in it. Rivas catheter is in place. 11/23/2021 Patient is a status post left thoracocentesis yesterday with a 20 mm of fluid taken out. Today he is more awake and comfortable, he looks at me when I talked to him but he does not follow commands and he does not answer questions. NG tube with green discharge, he has some black stool. EBONY drains with minimal discharge when I examine him, surgical wound is stable. Patient still has PICC line with TPN running. Vitals and labs looked the same, however oxygen is slightly worse with requirement went up from 5-6 L per minute and chest x-ray showing right lower lobe evolving pneumonia however patient remains on the same antibiotics with invanz and fluconazole. Also he is on IV Lasix and TPN 11/24/2021 Patient mentation it's looks the same for the last couple days. No other new complaint. He slightly more tachypneic today. No chest pain or abdominal pain, distal does not follow commands or answer questions. EBONY drain in place and surgery team are following the patient closely. TPN is running and PICC line is in place. Surgical wound looks stable. Rectal tube in place as well. Patient continued with the same treatment of Invanz, fluconazole and Lasix 40 mg IV twice a day 11/25/2021 No much difference clinically from yesterday, he still encephalopathy per neurol ogist however neurology service signed off as this is looks chronic. Patient NG tube is recommended to be discontinued today and undergo a swallow evaluation to assess nutrition capability Distal getting TPN through his PICC line, surgical wound is healing and EBONY drains are in place with no worsening discharge. He remains on Invanz and fluconazole and IV Lasix 11/26/2021 Patient awake today looks calm, still have rectal tube and Rivas catheter. He has low-grade temperature of 100.1, he is slightly tachypneic at 21 but he is on room air today. WBCs 13.8, Hemoglobin 8.3, BMP is unremarkable Patient passed a swallow evaluation today and placed on dysphagia II - ground texture diet with nectar thick liquids, straws are okay, and meds whole in puree, 1:1 feed, aspiration precautions. Magic cups were requested for pt . Swallow evaluation recommendation 11/27/2021 Patient awake, severely lethargic, does not follow, most of the time, he would follow some commands occasionally. NG tube was discontinued and started on dysphagia diet yesterday, he is able to tolerate diet with encouragement. Hemodynamically stable. Remains on TPN and PICC line place Surgical wound stable DC'd telemetry Transfer out of the ICU 11/28/2021 Patient is awake similar to the last few days, he does not follow command. Diet is started yesterday and he is tolerating that and been advanced gradually. Surgical wound is healing gradually and surgery team on the case WBC is 11.9, BMP is unremarkable, hemoglobin 8.2 Patient remains on IV Lasix and antibiotics in the form of Invanz and fluconazole. Also his getting TPN 11/30/2021 Patient is seen and evaluated in follow-up this morning currently on [facility] unit being closely monitored. General surgery along with pulmonary and ID following. Patient is continued on Invanz and fluconazole. Patient is on room air and continued breathing inhalational treatments. Patient continued on IV lasix. Continues to have EBONY drain, indwelling rivas catheter and fecal management system. Patient is eating and recommend to maintain strict aspiration precaution with head of the bead elevated 30-45 degrees and supervision with meals at all times. Patient continues with confusion although appears baseline as patient is autistic. 12/01/2021 She is seen in follow-up this morning with nursing staff at the bedside. Patient receiving a bed bath and surgical site appears dry and intact although there is some dressings that appear crusted and need redressing and patient continues with retention sutures along with other sutures with no surrounding redness or oozing noted. Patient also continues with fecal management system although noted to have some more formed stool around the management system and will need to discuss with surgery about possibly removing. Recommend continue strict aspiration precautions. Per nursing staff patient is eating very little and is continued on TPN. WBC mildly elevated at 13.1 and will monitor and repeat a.m. labs. Review of systems: unable to obtain as patient is confused Active Medications Albuterol/Ipratropium (Ipratropium-Albuterol 3 Ml Neb) 3 ml INHALATION RT-TID ROBERTO Last Admin: 12/01/21 12:37 Dose: Not Given Documented by: Atropine Sulfate (Atropine Ophth Soln 1% 5ml Btl) 2 drops SUBLINGUAL Q4HR PRN PRN Reason: Excess Secretions Furosemide (Furosemide 10 Mg/Ml 4 Ml Vial) 40 mg IV Q12HR ROBERTO Last Admin: 12/01/21 09:16 Dose: 40 mg Documented by: Hydromorphone HCl (Hydromorphone 0.5 Mg/0.5 Ml Syringe) 0.5 mg IVP Q3HR PRN PRN Reason: Pain Last Admin: 11/26/21 20:49 Dose: 0.5 mg Documented by: Fluconazole/Sodium Chloride (400 mg/ IV Solution) 200 mls @ 100 mls/hr IVPB DAILY ROBERTO; Protocol Last Admin: 12/01/21 10:05 Dose: 100 mls/hr Documented by: Ertapenem 1 gm/ Sodium (Chloride) 50 mls @ 100 mls/hr IVPB DAILY ROBERTO; Protocol Last Admin: 12/01/21 09:17 Dose: 100 mls/hr Documented by: Fat Emulsion Intravenous 500 (ml/ IV Solution) 500 mls @ 42 mls/hr IV Q7D ROBERTO Last Admin: 11/25/21 20:08 Dose: 42 mls/hr Documented by: Parenteral Vitamin Supplement 10 ml/ Zinc/Copper/Manganese/Selenium 1 ml/ Potassium Chloride 90 meq/ Sodium Acetate 40 meq/ Amino Acids/Dextrose 2,076 mls @ 90 mls/hr IV .BY DURATION ROBERTO Last Admin: 11/29/21 22:30 Dose: 90 mls/hr Documented by: Potassium Chloride 90 meq/Sodium Acetate 40 meq/ Amino Acids/Dextrose 2,065 mls @ 90 mls/hr IV .BY DURATION [facility] Last Admin: 11/30/21 20:41 Dose: 90 mls/hr Documented by: Insulin Aspart (Insulin Aspart (Novolog) 100 Unit/Ml Vial) 0 unit SQ Q6HR [facility]; Protocol Last Admin: 12/01/21 12:44 Dose: 1 unit Documented by: Lorazepam (Lorazepam 2 Mg/Ml Inj) 0.5 mg IV Q6HR PRN PRN Reason: Agitation or Acute Anxiety Last Admin: 11/30/21 20:42 Dose: 0.5 mg Documented by: Miscellaneous Information (Potassium Replacement Protocol 1 Each Misc) 1 each MISCELLANE DAILY PRN; Protocol PRN Reason: Per Protocol Miscellaneous Information (Magnesium Replacement Protocol 1 Each Misc) 1 each MISCELLANE DAILY PRN; Protocol PRN Reason: Per Protocol Multi-Ingred Cream/Lotion/Oil/Oint (Hydrophilic Cream 180 Gm Tube) 1 applic TOPICAL DAILY [facility]; Protocol Last Admin: 12/01/21 09:17 Dose: 1 applic Documented by: Ondansetron HCl (Ondansetron 4 Mg/2 Ml Vial) 4 mg IVP Q8HR PRN PRN Reason: Nausea And Vomiting Last Admin: 11/16/21 12:00 Dose: 4 mg Documented by: Pantoprazole Sodium (Pantoprazole 40 Mg/10 Ml Vial) 40 mg IVP BID [facility] Last Admin: 12/01/21 09:16 Dose: 40 mg Documented by: Scopolamine (Scopolamine 1.5mg/72hr Patch) 1 patch TRANSDERM Q72H [facility] Last Admin: 12/01/21 12:44 Dose: 1 patch Documented by: Physical exam: GENERAL: The patient is awake but does not answer questions,, does not follow commands, does not look in distress. 97% on room air HEENT: Pupils are round and equally reacting to light. EOMI. No scleral icterus. No conjunctival pallor. Normocephalic, atraumatic. No pharyngeal erythema. No thyromegaly. CARDIOVASCULAR: S1 and S2 present. No murmurs, rubs, or gallops. PULMONARY: Chest is clear to auscultation, no wheezing . Bilateral crepitation and decreased breath sounds ABDOMEN: Soft, nontender, nondistended, normoactive bowel sounds. No palpable organomegaly. Surgical wound slightly open with continued retention sutures with no purulent discharge, EBONY drain in place, some crusting noted of the surgical site MUSCULOSKELETAL: No joint swelling or deformity. EXTREMITIES: No cyanosis, clubbing, or pedal edema. NEUROLOGICAL: Gross neurological examination did not reveal any focal deficits. diffuse weakness SKIN: No rashes. no petechiae. Assessment: Bilateral aspiration pneumonia Ischemia of the lateral portion of the stomach and proximal jejunum, status post partial gastrectomy on 10/30 Pneumoperitoneum and upper abdominal abscess status post exploratory laparotomy and small bowel resection on 11/12 Toxic/metabolic encephalopathy Mostly chronic kidney disease, stage III Developmental delay, autistic, lives in a alf No code Plan: This is a pleasant 51 years old male who presents with bowel ischemia status post resection, aspiration pneumonia. Continue with Invanz, fluconazole: Continue with IV Lasix Pulmonary, surgery, and ID following Continue with rectal tubeand will discuss with surgery about possible removal of as there is a leak noted on exam of more formed stool Continue dysphagia diet with aspiration precautions PT/OT to evaluate. consult case management and social work for possible ECF repeat labs ordered Prognosis is extremely guarded The impression and plan of care has been dictated by Rozina Nam, Nurse Practitioner as directed. Dr. Christina MD I have performed a history and examination and MDM of this patient, discussed the same with the dictator, and agree with the dictator's assessment and plan as written ,documented as a scribe. Based on total visit time, I have performed more than 50% of the visit. Objective - Vital Signs Vital signs: Vital Signs Temp 99 F 12/01/21 04:04 Pulse 88 12/01/21 07:51 Resp 20 12/01/21 04:04 BP 105/65 12/01/21 04:04 Pulse Ox 97 12/01/21 04:04 Intake & Output 11/30/21 12/01/21 12/01/21 18:59 06:59 18:59 Intake Total 1540 550 Output Total 1065 2900 Balance 475 -2350 Intake: IV 1450 Ertapenem 1 gm In Sodium 50 Chloride 0.9% 50 ml @ 100 mls/hr IVPB DAILY [facility] Rx #:[id number] Fluconazole in NaCl,Iso- 200 Osm 400 mg In Saline 1 200ml.bag @ 100 mls/hr IVPB DAILY ROBERTO Rx#: [id number] Sodium Chloride 0.9% 1, 120 000 ml @ 20 mls/hr IV . Q24H ROBERTO Rx#:[id number] TPN 1080 Intake, IV Titration 450 Amount Mvi, Adult No.4 with Vit 450 K 10 ml Trace (Conc-1Ml/ Dose) 1 ml Potassium Chloride 90 meq Sodium Acetate 40 meq In Amino Acids 5 %/Dextrose 20 % 2 ,000 ml @ 90 mls/hr IV . BY DURATION ROBERTO Rx#: [id number] Oral 90 100 Output: Drainage 40 Left Abdomen 30 Right Abdomen 10 Urine 1025 2900 Other: Voiding Method Indwelling Catheter Indwelling Catheter # Voids 1 # Bowel Movements 1 ABP, PAP, CO, CI - Last Documented Arterial Blood Pressure 144/72 - Labs CBC & Chem 7: 12/01/21 07:01 12/01/21 07:01 Labs: Abnormal Lab Results - Last 24 Hours (Table) 11/30/21 11/30/21 12/01/21 Range/Units 12:35 17:26 00:22 WBC (3.8-10.6) k/uL RBC (4.30-5.90) m/uL Hgb (13.0-17.5) gm/dL Hct (39.0-53.0) % MCV (80.0-100.0) fL MCHC (31.0-37.0) g/dL RDW (11.5-15.5) % Neutrophils # (1.3-7.7) k/uL Lymphocytes # (1.0-4.8) k/uL Chloride (98-107) mmol/L Carbon Dioxide (22-30) mmol/L BUN (9-20) mg/dL Glucose (74-99) mg/dL POC Glucose (mg/dL) 142 H 143 H 143 H (75-99) mg/dL Calcium (8.4-10.2) mg/dL 12/01/21 12/01/21 12/01/21 Range/Units 05:17 07:01 07:01 WBC 13.1 H (3.8-10.6) k/uL RBC 2.81 L (4.30-5.90) m/uL Hgb 8.8 L (13.0-17.5) gm/dL Hct 28.7 L (39.0-53.0) % MCV 102.2 H (80.0-100.0) fL MCHC 30.8 L (31.0-37.0) g/dL RDW 16.3 H (11.5-15.5) % Neutrophils # 10.5 H (1.3-7.7) k/uL Lymphocytes # 0.9 L (1.0-4.8) k/uL Chloride 110 H (98-107) mmol/L Carbon Dioxide 20 L (22-30) mmol/L BUN 64 H (9-20) mg/dL Glucose 125 H (74-99) mg/dL POC Glucose (mg/dL) 139 H (75-99) mg/dL Calcium 10.6 H (8.4-10.2) mg/dL 12/01/21 Range/Units 07:06 WBC (3.8-10.6) k/uL RBC (4.30-5.90) m/uL Hgb (13.0-17.5) gm/dL Hct (39.0-53.0) % MCV (80.0-100.0) fL MCHC (31.0-37.0) g/dL RDW (11.5-15.5) % Neutrophils # (1.3-7.7) k/uL Lymphocytes # (1.0-4.8) k/uL Chloride (98-107) mmol/L Carbon Dioxide (22-30) mmol/L BUN (9-20) mg/dL Glucose (74-99) mg/dL POC Glucose (mg/dL) 138 H (75-99) mg/dL Calcium (8.4-10.2) mg/dL
[2021-12-02] MEDS: INSULIN ASPART (NovoLOG) 100 UNIT/ML VIAL SQ SCH ×4 (00:55→17:55)
[2021-12-02 00:56] LABS: Glucose,Whole Blood 134 mg/dL (75-99)
[2021-12-02 05:30] LABS: Glucose,Whole Blood 163 mg/dL (75-99)
[2021-12-02 09:14] LABS: African American GFR (CKD) 79.5 (60.0-200.0); Anion Gap 8.5 mmol/L (10.00-18.00); BUN/Creat Ratio 53.33 Ratio (12.00-20.00); Carbon Dioxide 21.5 mmol/L (20.0-27.5); Magnesium 1.9 mg/dL (1.5-2.4); Non-African American GFR(CKD) 68.6 (60.0-200.0); Phosphorus 3.2 mg/dL (2.4-5.1); Potassium 4.8 mmol/L (3.5-5.5)
[2021-12-02] MEDS: ERTAPENEM 1 GM in SODIUM CHLORIDE 0.9% 50 ML IVPB SCH (09:41)
[2021-12-02] MEDS: PANTOPRAZOLE 40 MG/10 ML VIAL IVP SCH ×2 (09:41→20:40)
[2021-12-02] MEDS: HYDROPHILIC CREAM 180 GM TUBE TOPICAL SCH (09:42)
[2021-12-02] MEDS: FUROSEMIDE 10 MG/ML 4 ML VIAL IV SCH ×2 (09:42→20:39)
[2021-12-02] MEDS: IPRATROPIUM-ALBUTEROL 3 ML NEB INHALATION SCH ×3 (10:23→19:37)
[2021-12-02] MEDS: FLUCONAZOLE IN NACL,ISO-OSM 400 MG in SALINE 1 200ML.BAG IVPB SCH (10:35)
[2021-12-02 12:25] LABS: Glucose,Whole Blood 156 mg/dL (75-99)
[2021-12-02 17:24] LABS: Glucose,Whole Blood 150 mg/dL (75-99)
[2021-12-02] MEDS: [UNRECOGNIZED DRUG - REMARK] IV SCH ×5 (17:54)
--- NOTE | 2021-12-02 18:23 | P.PN ---
Progress Note - Text Progress Note Date: 12/02/21 Patient remains unchanged. His fecal management system was removed today. He is tolerating some oral diet. On exam vital signs appear stable. Abdomen soft. Wound is clean. Status post partial gastrectomy and small bowel resection for ischemic bowel. Patient is improving slowly. he received supportive care.
[2021-12-02] MEDS: FAT EMULSION 20% 500 ML in EMPTY BAG 1 BAG IV SCH (23:02)
[2021-12-02 23:55] LABS: Glucose,Whole Blood 157 mg/dL (75-99)
[2021-12-03] MEDS: INSULIN ASPART (NovoLOG) 100 UNIT/ML VIAL SQ SCH ×4 (00:31→18:13)
--- NOTE | 2021-12-03 02:48 | P.PN ---
Subjective From the records, patient could not provide information Patient was admitted for nausea vomiting diarrhea believed to have gastroenteritis. Patient continued to have vomiting and started having abdominal tenderness because of which CT of the abdomen was obtained which showed pneumatosis coli along with some gas in the venous system concern for is chemic bowel. Patient was started on Zosyn. Patient subsequently decompensated patient became hypotensive with BP of 60/40 transferred to ICU patient was given 3 L of boluses of IV fluid NG tube was placed which showed bloody output . Patient in septic shock and receiving norepinephrine at this time. Recent echo showed normal ejection fraction. Patient had CTA of the chest which was negative for pulmonary embolism patient creatinine has worsened and went up to 2.80 today from 1.14 yesterday and this is secondary to acute tubular necrosis from sepsis and septic shock. Patient does have lactic acidosis, patient does have lactic acidosis with lactic acidosis 7.5. Patient will be given 1 L of IV fluids continue pressor support. he is intubated and sedated. 10/31/2021 Patient is started having urine output. Patient underwent a arthrotomy yesterday and found to have ischemia of the lateral portion of the stomach and ischemia of the proximal jejunum patient underwent partial gastrectomy. Patient is presently on that to pressors maximized on norepinephrine, patient is also on vasopressin receiving albumin, IV fluids started having minimal urine output patient was anuric last night. Patient's chloride is highly elevated leading to metabolic acidosis patient also has an anion gap metabolic acidosis from lactic acidosis which appears to be improving at this time patient's overall clinical condition is guarded and the prognosis is poor. Patient Y blood cell count went down in fact patient is neutropenic now. Patient is presently not receiving any nutrition at this time. 11/18/2021 Patient is seen and evaluated in follow up this morning and continues to be in the ICU and was reintubated again this morning. Chest xray shows CHF and pleural effusions as previously noted. No evidence of pneumothorax. Patient continues with an FI02 of 50% and peep is 5. Patient continues on sedation. Patient to continue with IV antibiotics and also antifungals. WBC is elevated. Per nursing staff, hemoglobin is 5.9 and bleeding from NG tube. Patient to receive 2 units of PRBC. 11/19/2021 Patient is seen in follow-up this morning closely monitored with multiple medical consultations following. Patient continues on mechanical vent with an FiO2 of 35% and PEEP is 5. Patient's hemoglobin is 6.7 today and continues with bleeding noted in the NG tube. Patient is to receive another unit of PRBCs and will continue to monitor hemoglobin and bleeding closely. Weaning parameters are continuously being assessed and possible extubation in the next day or so per pulmonary. Brother at the bedside and is agreeable with no CODE STATUS and no further intubations as patient has been also intubated multiple times this admission and continues to deteriorate. Chest x-ray today shows persistent bilateral infiltrates with pleural effusions greater on the left and correlate for pneumonia versus CHF. Kidney functions slightly worsening as well and trending up. WBC continues to be elevated and patient is maintained on IV antibiotics. 11/20/2021 Patient is seen in follow-up today continues to be in the ICU with multiple medical consultations following. Patient was recently extubated yesterday and currently maintained on 6 L nasal cannula. patient continues to have GI bleeding with NG tube noted to have bleeding along with dark maroon stools noted. Hemoglobin is 6.5 today and will be receiving a unit of PRBC. WBC remains elevated and continues on IV antibiotics. Patient is nonverbal but follows simple commands. Continues to be in critical condition. To continue with NG tube and TPN for now. Surgery following as well. Today note 11/21/2021 Patient with past medical history of developmental delay living in a snf presents to the hospital on 10/29 from his snf after a fall and suspected syncope. On admission he was AAO 1. Patient has prolonged hospitalization since then for more than 3 weeks. Today is lying in the bed in the ICU, unresponsive and does not follow command and does not answer questions. He is been followed by several consultants including neurologist, paper roller/critical care team and surgery team. He is a status post exploratory laparotomy and surgical resection of part of the stomach and proximal jejunum secondary to ischemic changes and drainage of the adjacent abscess. He has evidence of persistent bilateral pneumonia and kept on Invanz and fluconazole with body fluid culture showing E. coli and Cortney and chest x-ray showing evidence of bilateral infiltrates read also seen on CT of the abdomen, pelvis and chest without contrast: Bilateral pulmonary consolidation and bilateral pleural effusion. He had negative CT of the brain and ejection fraction 60-65%. His receiving TPN and on Lasix 40 mg twice daily. Labs showing leukocytosis of 20, hemoglobin 6.5, sodium 146, creatinine 1.4 with evidence mostly indicating chronic kidney disease stage III. Also history of chronic fever of 100.6 and saturating low 90s on 4 L/m of oxygen. 11/22/2021 Patient remains in the ICU, he is more awake today, he looks at me if I called in by his name however he fails to follow commands, when I asked him if he is in pain he moves his hands little bit on his abdomen, not sure what does not mean exactly. His oxygen requirement slightly worse up to 5 L/m but today he is afebrile. Labs showing slightly improving leukocytosis at 17.8, hemoglobin improved 7.6, sodium 145 and creatinine came down to 1.18. Test x-ray showing decreased left pleural effusion with bilateral consolidation and nodular density in the prior left perihilar region. Patient remains on Invanz, fluconazole, IV Lasix as well as TPN. His wound edges slightly open with gauze soaked but there is no purulent discharge, EBONY drain and place. Rectal tube in place with no blood in it. Zepeda catheter is in place. 11/23/2021 Patient is a status post left thoracocentesis yesterday with a 20 mm of fluid taken out. Today he is more awake and comfortable, he looks at me when I talked to him but he does not follow commands and he does not answer questions. NG tube with green discharge, he has some black stool. EBONY drains with minimal discharge when I examine him, surgical wound is stable. Patient still has PICC line with TPN running. Vitals and labs looked the same, however oxygen is slightly worse with requirement went up from 5-6 L per minute and chest x-ray showing right lower lobe evolving pneumonia however patient remains on the same antibiotics with invanz and fluconazole. Also he is on IV Lasix and TPN 11/24/2021 Patient mentation it's looks the same for the last couple days. No other new complaint. He slightly more tachypneic today. No chest pain or abdominal pain, distal does not follow commands or answer questions. EBONY drain in place and surgery team are following the patient closely. TPN is running and PICC line is in place. Surgical wound looks stable. Rectal tube in place as well. Patient continued with the same treatment of Invanz, fluconazole and Lasix 40 mg IV twice a day 11/25/2021 No much difference clinically from yesterday, he still encephalopathy per neurologist however neurology service signed off as this is looks chronic. Patient NG tube is recommended to be discontinued today and undergo a swallow evaluation to assess nutrition capability Distal getting TPN through his PICC line, surgical wound is healing and EBONY drains are in place with no worsening discharge. He remains on Invanz and fluconazole and IV Lasix 11/26/2021 Patient awake today looks calm, still have rectal tube and Zepeda catheter. He has low-grade temperature of 100.1, he is slightly tachypneic at 21 but he is on room air today. WBCs 13.8, Hemoglobin 8.3, BMP is unremarkable Patient passed a swallow evaluation today and placed on dysphagia II - ground texture diet with nectar thick liquids, straws are okay, and meds whole in puree, 1:1 feed, aspiration precautions. Magic cups were requested for pt . Swallow evaluation recommendation 11/27/2021 Patient awake, severely lethargic, does not follow, most of the time, he would follow some commands occasionally. NG tube was discontinued and started on dysphagia diet yesterday, he is able to tolerate diet with encouragement. Hemodynamically stable. Remains on TPN and PICC line place Surgical wound stable DC'd telemetry Transfer out of the ICU 11/28/2021 Patient is awake similar to the last few days, he does not follow command. Diet is started yesterday and he is tolerating that and been advanced gradually. Surgical wound is healing gradually and surgery team on the case WBC is 11.9, BMP is unremarkable, hemoglobin 8.2 Patient remains on IV Lasix and antibiotics in the form of Invanz and fluconazole. Also his getting TPN Resume the care of the patient today 12/02/2021 Patient mentation looks the same last week when he was taking care of him. He still marginally follow commands area at His surgical wound is healing. Patient still has poor appetite. He is not eating much per staff. He is still on TPN. Surgery team following him closely. Creatinine today is 1.2. No fever in 48 hours Objective - Vital Signs Vital signs: Vital Signs Temp 97.7 F 12/02/21 05:00 Pulse 90 12/02/21 05:00 Resp 18 12/02/21 05:00 BP 132/80 12/02/21 05:00 Pulse Ox 98 12/02/21 05:00 Intake & Output 12/01/21 12/02/21 12/02/21 18:59 06:59 18:59 Intake Total 1080 1860 Output Total 650 1545 Balance 430 315 Intake: IV 1080 1320 Sodium Chloride 0.9% 1, 240 000 ml @ 20 mls/hr IV . Q24H ROBERTO Rx#:[id number] TPN 1080 1080 Oral 0 540 Output: Drainage 45 Left Abdomen 40 Right Abdomen 5 Urine 500 1500 Stool 150 Other: Voiding Method Indwelling Catheter Indwelling Catheter ABP, PAP, CO, CI - Last Documented Arterial Blood Pressure 144/72 - Exam -GENERAL: The patient is awake but does not answer questions,, does not follow commands, does not look in distress. HEENT: Pupils are round and equally reacting to light. EOMI. No scleral icterus. No conjunctival pallor. Normocephalic, atraumatic. No pharyngeal erythema. No thyromegaly. CARDIOVASCULAR: S1 and S2 present. No murmurs, rubs, or gallops. -PULMONARY: Chest is clear to auscultation, no wheezing . Bilateral crepitation and decreased breath sounds -ABDOMEN: Soft, nontender, nondistended, normoactive bowel sounds. No palpable organomegaly. Surgical wound slightly open at the ages with no purulent discharge, EBONY drain in place MUSCULOSKELETAL: No joint swelling or deformity. EXTREMITIES: No cyanosis, clubbing, or pedal edema. NEUROLOGICAL: Gross neurological examination did not reveal any focal deficits. SKIN: No rashes. no petechiae. - Labs CBC & Chem 7: 12/01/21 07:01 12/02/21 06:19 Labs: Abnormal Lab Results - Last 24 Hours (Table) 12/01/21 12/01/21 12/02/21 Range/Units 11:53 17:27 00:54 Anion Gap (10.00-18.00) mmol/L BUN (9.0-27.0) mg/dL BUN/Creatinine Ratio (12.00-20.00) Ratio Glucose (70-110) mg/dL POC Glucose (mg/dL) 151 H 130 H 134 H (75-99) mg/dL Calcium (8.7-10.3) mg/dL 12/02/21 12/02/21 Range/Units 05:28 06:19 Anion Gap 8.50 L (10.00-18.00) mmol/L BUN 64.0 H (9.0-27.0) mg/dL BUN/Creatinine Ratio 53.33 H (12.00-20.00) Ratio Glucose 148 H (70-110) mg/dL POC Glucose (mg/dL) 163 H (75-99) mg/dL Calcium 11.0 H (8.7-10.3) mg/dL Assessment and Plan Assessment: Bilateral aspiration pneumonia Ischemia of the lateral portion of the stomach and proximal jejunum, status post partial gastrectomy on 10/30 Pneumoperitoneum and upper abdominal abscess status post exploratory laparotomy on and small bowel resection on 11/12 Toxic/metabolic encephalopathy Mostly chronic kidney disease, stage III Developmental delay, was on a snf Plan: This is a pleasant 51 years old male who presents with bowel ischemia status post resection, aspiration pneumonia. Continue with Invanz, fluconazole: Switch IV Lasix and oral dose 40 mg twice a day Fecal management tube was discontinued today Still on dysphagia diet with aspiration precautions TPN management as per surgery team Follow-up recommendation by pulmonary/critical care team, surgery team, and the neurologist Labs and medication were reviewed.. Continue same treatment. Continue with symptomatic treatment. Resume home medication. Monitor lytes and vitals. DVT and GI prophylaxis. Further recommendations as per clinical course of the patient Prognosis is extremely guarded
[2021-12-03 07:13] LABS: ALT 80 U/L (4-49); AST 67 U/L (17-59); African American GFR (CKD) 87 (>60 ml/min/1.73 sqM); Albumin 2.7 g/dL (3.5-5.0); Albumin/Globulin Ratio 0.5; Alkaline Phosphatase 374 U/L (38-126); Anion Gap 7 mmol/L; Blood Urea Nitrogen 65 mg/dL (9-20); Calcium 10.9 mg/dL (8.4-10.2); Carbon Dioxide 22 mmol/L (22-30); Chloride 105 mmol/L (98-107); Globulin 5.4 g/dL; Glucose 151 mg/dL (74-99); Magnesium 1.7 mg/dL (1.6-2.3); Non-African American GFR(CKD) 76 (>60 ml/min/1.73 sqM); Phosphorus 3.8 mg/dL (2.5-4.5); Potassium 5.3 mmol/L (3.5-5.1); Sodium 134 mmol/L (137-145); Total Bilirubin 1.6 mg/dL (0.2-1.3); Total Protein 8.1 g/dL (6.3-8.2)
[2021-12-03 07:29] LABS: Glucose,Whole Blood 161 mg/dL (75-99)
[2021-12-03] MEDS: IPRATROPIUM-ALBUTEROL 3 ML NEB INHALATION SCH ×3 (08:49→19:42)
[2021-12-03] MEDS: PANTOPRAZOLE 40 MG/10 ML VIAL IVP SCH ×2 (08:52→20:37)
[2021-12-03] MEDS: ERTAPENEM 1 GM in SODIUM CHLORIDE 0.9% 50 ML IVPB SCH (08:52)
[2021-12-03] MEDS: FUROSEMIDE 40 MG TAB PO SCH ×2 (08:53→16:31)
[2021-12-03] MEDS: HYDROPHILIC CREAM 180 GM TUBE TOPICAL SCH (08:53)
[2021-12-03] MEDS: MAGNESIUM SULFATE-D5W PMX 1 GM in DEXTROSE/WATER 1 100ML.BAG IVPB SCH ×2 (09:41→11:09)
--- NOTE | 2021-12-03 10:43 | XR ---
EXAMINATION TYPE: XR chest 1V portable DATE OF EXAM: 12/03/2021 COMPARISON: Chest x-ray 11/23/2021 HISTORY: Difficulty breathing TECHNIQUE: Single frontal view of the chest is obtained. FINDINGS: Left-sided PICC line shows the distal tip overlying superior vena cava. Patient is rotated . No evident pneumothorax or pleural effusion. Cardiomediastinal silhouette is within normal limits. Lung volumes are somewhat low. Patchy densities resident within the lungs but improved compared to pr ior exam. Drain is present over the upper abdomen. There is been interval removal of the NG tube. The re is thoracic spondylosis, possible spinal curvature. IMPRESSION: There is improvement in aeration, suspect some residual atelectasis, exam is expiratory and rotated.
[2021-12-03 12:01] LABS: Glucose,Whole Blood 160 mg/dL (75-99)
[2021-12-03] MEDS: FLUCONAZOLE IN NACL,ISO-OSM 400 MG in SALINE 1 200ML.BAG IVPB SCH (12:04)
--- NOTE | 2021-12-03 12:36 | P.PN ---
Progress Note - Text Progress Note Date: 12/03/21 Patient appears to be resting in his bed comfortably. Per the family has had some oral intake. On exam vital signs are stable. Abdomen soft. An incision is clean. There is healthy granulation tissue. Silver rope is in place. Retention suture sites are clean. Status post partial gastrectomy and small bowel resection for ischemia. Patient is making a slow recovery. We will continue to provide supportive care.
--- NOTE | 2021-12-03 14:33 | FL ---
EXAMINATION TYPE: FL barium swallow w video DATE OF EXAM: 12/03/2021 COMPARISON: NONE HISTORY: Rule out aspiration TECHNIQUE: Fluoroscopy. FINDINGS: Fluoroscopic guidance was provided for the procedure performed in conjunction with the [facility] pathology department. Please see complete report forthcoming from the Speech Pathology departmen t. Various consistencies from thin liquid to solids were administered. Fluoroscopy time 1 minute 38 seconds. Number of images: 0. No aspiration or penetration was evident with small sips. With larger gulps of thin liquids at the en d of the examination deep penetration with some aspiration with spontaneous clearing was observed. No significant pooling was observed in the vallecula. IMPRESSION: 1. Aspiration and penetration with larger globes within liquid. Otherwise, the examination with small sips of thin liquid in various consistencies was normal without aspiration or penetration.
--- NOTE | 2021-12-03 14:34 | P.PN ---
Subjective Progress Note Date: 12/03/21 Patient evaluated today resting in bed after working with PT. He is slightly tachypneic and does state he is having some pain, unable to tell where and quantify. Patient was switched to PO lasix yesterday. Fecal management system has been removed, continues with indwelling catheter. Abdominal dressing in t act. Chest xray today showing improvement in aeration with some residual atelectasis. Reevluation today by speech is showing continued difficulty with thin liquids. Did well with nectar thick and diet has been upgraded today to dysphagia 3, chopped with nectar thick liquids, with free water guidance. Recommended for modified barium study tomorrow. Continues on TPN. Labs today sodium 134, potassium 5.3, creating 1.11. Blood sugars in the 150s. Liver enzymes elevated slightly. Remains afebrile, heart rate 97, blood pressure 139/81, 98% on room air. Recommended to give some pain medication and see if his breathing slows. Has been on IV invanz since november 17. Full Review of systems difficult to obtain. Patient does state he is having pain as described above. PHYSICAL EXAMINATION: GENERAL: The patient is alert and oriented x1, Slightly tachypneic. Well developed, well nourished. HEENT: Pupils are round and equally reacting to light. EOMI. No scleral icterus. No conjunctival pallor. Normocephalic, atraumatic. No pharyngeal erythema. No thyromegaly. CARDIOVASCULAR: S1 and S2 present. No murmurs, rubs, or gallops. PULMONARY: Chest is clear to auscultation, no wheezing or crackles. ABDOMEN: Soft, tender, nondistended, normoactive bowel sounds. No palpable organomegaly. Post surgical abdomen with dressing intact. MUSCULOSKELETAL: No joint swelling or deformity. EXTREMITIES: No cyanosis, clubbing, or pedal edema. NEUROLOGICAL: Gross neurological examination did not reveal any focal deficits. Baseline mentation developmentally delayed. Pt is slow to respond. SKIN: No rashes. Assessment and plan Assessment Bilateral aspiration pneumonia Ischemia of the lateral portion of the stomach and proximal jejunum, status post partial gastrectomy on 10/30 Pneumoperitoneum and upper abdominal abscess status post exploratory laparotomy on and small bowel resection on 11/12 Leukocytosis secondary to above, stable Toxic/metabolic encephalopathy Hyperkalemia Tachypneic, could be due to pain, monitor Elevated liver enzymes Mostly chronic kidney disease, stage III Developmental delay, was on a [facility] GI Prophylaxis DVT Prophylaxis Full Code Plan Diet upgraded, plan for MBS shari Patient now on oral lasix Continues on TPN Continue with local wound care Repeat labs in AM Prognosis Guarded The impression and plan of care has been dictated by Charu Thrasher, Nurse Practitioner as directed. Dr. Christina MD I have performed a history and physical examination and medical decision making of this patient, discussed the same with the dictator, and agree with the dictators assessment and plan as written, documented as a scribe. Based on total visit time, I have performed more than 50% of this visit. Objective - Vital Signs Vital signs: Vital Signs Temp 98.5 F 12/03/21 12:05 Pulse 97 12/03/21 12:05 Resp 24 12/03/21 12:05 BP 139/81 12/03/21 12:05 Pulse Ox 98 12/03/21 12:05 Intake & Output 12/02/21 12/03/21 12/03/21 18:59 06:59 18:59 Output Total 1300 280 15 Balance -1300 -280 -15 Weight 69.2 kg Output: Drainage 30 15 Left Abdomen 10 10 Right Abdomen 20 5 Urine 1300 250 Other: Voiding Method Indwelling Catheter Indwelling Catheter ABP, PAP, CO, CI - Last Documented Arterial Blood Pressure 144/72 - Labs CBC & Chem 7: 12/01/21 07:01 12/03/21 06:21 Labs: Abnormal Lab Results - Last 24 Hours (Table) 12/02/21 12/02/21 12/03/21 Range/Units 17:22 23:54 06:21 Sodium 134 L (137-145) mmol/L Potassium 5.3 H (3.5-5.1) mmol/L BUN 65 H (9-20) mg/dL Glucose 151 H (74-99) mg/dL POC Glucose (mg/dL) 150 H 157 H (75-99) mg/dL Calcium 10.9 H (8.4-10.2) mg/dL Total Bilirubin 1.6 H (0.2-1.3) mg/dL AST 67 H (17-59) U/L ALT 80 H (4-49) U/L Alkaline Phosphatase 374 H (38-126) U/L Albumin 2.7 L (3.5-5.0) g/dL 12/03/21 12/03/21 Range/Units 07:22 11:36 Sodium (137-145) mmol/L Potassium (3.5-5.1) mmol/L BUN (9-20) mg/dL Glucose (74-99) mg/dL POC Glucose (mg/dL) 161 H 160 H (75-99) mg/dL Calcium (8.4-10.2) mg/dL Total Bilirubin (0.2-1.3) mg/dL AST (17-59) U/L ALT (4-49) U/L Alkaline Phosphatase (38-126) U/L Albumin (3.5-5.0) g/dL Microbiology - Last 24 Hours (Table) 11/22/21 13:20 Acid Fast Bacilli Smear - Final Pleural Fluid Acid Fast Bacilli Culture - Preliminary 11/11/21 12:30 Acid Fast Bacilli Smear - Final Bronchial Washings - Random Acid Fast Bacilli Culture - Preliminary 11/11/21 12:00 Acid Fast Bacilli Smear - Final Bronchial Washings - Random Acid Fast Bacilli Culture - Preliminary Assessment and Plan Time with Patient: Less than 30
[2021-12-03] MEDS: [UNRECOGNIZED DRUG - REMARK] IV SCH ×7 (16:32)
[2021-12-03 17:28] LABS: Glucose,Whole Blood 151 mg/dL (75-99)
[2021-12-04 00:04] LABS: Glucose,Whole Blood 154 mg/dL (75-99)
[2021-12-04] MEDS: INSULIN ASPART (NovoLOG) 100 UNIT/ML VIAL SQ SCH ×4 (00:06→17:50)
[2021-12-04 06:07] LABS: Glucose,Whole Blood 134 mg/dL (75-99)
[2021-12-04] MEDS: IPRATROPIUM-ALBUTEROL 3 ML NEB INHALATION SCH ×3 (07:56→20:38)
[2021-12-04 08:04] LABS: ALT 79 U/L (4-49); AST 62 U/L (17-59); African American GFR (CKD) >90 (>60 ml/min/1.73 sqM); Albumin 2.7 g/dL (3.5-5.0); Albumin/Globulin Ratio 0.5; Alkaline Phosphatase 369 U/L (38-126); Anion Gap 8 mmol/L; Blood Urea Nitrogen 59 mg/dL (9-20); Calcium 10.8 mg/dL (8.4-10.2); Carbon Dioxide 23 mmol/L (22-30); Chloride 104 mmol/L (98-107); Globulin 5.1 g/dL; Glucose 141 mg/dL (74-99); Magnesium 2.2 mg/dL (1.6-2.3); Non-African American GFR(CKD) 78 (>60 ml/min/1.73 sqM); Phosphorus 3.8 mg/dL (2.5-4.5); Sodium 135 mmol/L (137-145); Total Bilirubin 1.4 mg/dL (0.2-1.3); Total Protein 7.8 g/dL (6.3-8.2)
[2021-12-04] MEDS ORDERED: FUROSEMIDE 10 MG/ML 4 ML VIAL IV STA (10:09)
[2021-12-04 10:24] LABS: Basophils # (A) 0.07 X 10*3/uL (0.00-0.10); Basophils % (A) 0.7 %; Eosinophils # (A) 0.75 X 10*3/uL (0.04-0.35); Eosinophils % (A) 7.6 %; HCT 25.7 % (39.6-50.0); HGB 7.6 g/dL (13.0-17.0); Immature Grans, Automated 0.7 %; Lymphocytes # (A) 1.11 X 10*3/uL (0.90-5.00); Lymphocytes % (A) 11.2 %; MCH 27.7 pg (27.0-32.0); MCHC 29.6 g/dL (32.0-37.0); MCV 93.8 fL (80.0-97.0); Mean Platelet Volume 11.1 fL (9.5-12.2); Monocytes # (A) 0.78 X 10*3/uL (0.20-1.00); Monocytes % (A) 7.9 %; NRBC Per 100 WBC 0 /100 WBCS (0.0-0.0); Neutrophils # (A) 7.12 X 10*3/uL (1.80-7.70); Neutrophils % (A) 71.9 %; Platelet Count 338 X 10*3/uL (140-440); RBC 2.74 X 10*6/uL (4.40-5.60); RDW 16.1 % (11.5-14.5)
[2021-12-04] MEDS: FUROSEMIDE 40 MG TAB PO SCH ×2 (10:25→17:07)
[2021-12-04] MEDS: FLUCONAZOLE IN NACL,ISO-OSM 400 MG in SALINE 1 200ML.BAG IVPB SCH (10:29)
[2021-12-04] MEDS: PANTOPRAZOLE 40 MG/10 ML VIAL IVP SCH ×2 (10:30→20:10)
[2021-12-04] MEDS: ERTAPENEM 1 GM in SODIUM CHLORIDE 0.9% 50 ML IVPB SCH (10:30)
[2021-12-04] MEDS: HYDROPHILIC CREAM 180 GM TUBE TOPICAL SCH (10:37)
--- NOTE | 2021-12-04 12:04 | CDI ---
Documentation Clarification Form Date: 12/04/2021 11:10:45 AM From: Yelena Thomas RN, CCDS Admit Date: 10/29/2021 04:45:00 AM Patient Name: Amanuel Monk Visit Number: [id number] Discharge Date: ATTENTION: The Clinical Documentation Specialists (CDI) and [facility] Coding Staff appreciate your assistance in clarifying documentation. Please respond to the clarification below the line at the bottom and electronically sign. The CDI & [facility] Coding staff will review the response and follow-up if needed. Please note: Queries are made part of the Legal Health Record. If you have any questions, please contact the author of this message via ITS. Dr. Dl Toussaint Postoperative ileus is documented multiple progress notes beginning 11/07/21 and patient had exploratory laparotomy and partial gastrectomy on 10/30/21. Additional clarification is requested regarding the relationship, if any, that exists between the diagnosis and the procedure. 10/29/21 CT Abdomen/pelvis: Extensive pneumatosis involving stomach and small bowel. Dilates small bowel and stomach is consistent with significant ileus. Mechanical bowel obstruction not entirely excluded but I think is unlikely. Gangrenous bowel and stomach should be considered 11/07/21 CT abdomen/pelvis: Diffuse wall thickening of the stomach and small bowel with mild dilation of the small bowel without definite transition point which may suggest ileus. This could be related to ileus however colitis cannot be excluded. Patients Admitting Diagnosis: Ischemic bowel Post-Operative Diagnosis: Ischemia of the lateral portion of the stomach, Mild or ischemia proximal jejunum Procedure performed: Exploratory laparotomy, Partial gastrectomy History/Risk Factors: CVA, Diabetes mellitus, Hypertension Autism Clinical Indicators: 51-year-old male present with abdominal pain. He was found to have dilated small bowel and stomach consistent with significant ileus. Mechanical small bowel obstruction not excluded. 10/30 CXR: Markedly distended stomach, gastric pneumotosis cannot be excluded. Treatment: ICU/Telemetry monitoring TPN per orders 3 NPO 3/ NGT for decompression .9NS IV Fluid bolus 11/16 Reglan 10 MG IV Q 6 HRS PRN 11/07-11/10 What relationship, if any, exists between the diagnosis of Postoperative ileus and the procedure? [ ] Postoperative ileus is a complication of surgical procedure [ ] Postoperative ileus is an expected outcome of the surgical procedure [ xxxxx ] Postoperative ileus is related to patients co-morbid condition(s) as ileus was on admission & not a complication of the procedure [ ] Other please specify ____ [ ] Unable to determine (Template Last Revised: October 2020) MTDD
[2021-12-04 12:15] LABS: Glucose,Whole Blood 169 mg/dL (75-99)
--- NOTE | 2021-12-04 12:50 | CDI ---
Documentation Clarification Form Date: 12/04/2021 12:10:51 PM From: Yelena Thomas RN, CCDS Admit Date: 10/29/2021 04:45:00 AM Patient Name: Amanuel Monk Visit Number: [id number] Discharge Date: ATTENTION: The Clinical Documentation Specialists (CDI) and [facility] Coding Staff appreciate your assistance in clarifying documentation. Please respond to the clarification below the line at the bottom and electronically sign. The CDI & [facility] Coding staff will review the response and follow-up if needed. Please note: Queries are made part of the Legal Health Record. If you have any questions, please contact the author of this message via ITS. Dr. Alberto Torres Pneumoperitoneum suspect gastric leak is documented in the operative note on 11/12/21, and patient had exploratory laparotomy and partial gastrectomy, mild or ischemia proximal jejunum on 10/30/21. Additional clarification is requested regarding the relationship, if any, that exists between the diagnosis and the procedure. 10/29/21 CT Abdomen/pelvis: Extensive pneumatosis involving stomach and small bowel. Dilates small bowel and stomach is consistent with significant ileus. Mechanical bowel obstruction not entirely excluded but I think is unlikely. Gangrenous bowel and stomach should be consider Patients Preop Diagnosis: Pneumoperitoneum suspect gastric leak Post-Operative Diagnosis: Same, section of proximal jejunum with ischemic changes Procedure performed: Exploratory laparotomy, drainage upper abdominal abscess, lysis of adhesions, small bowel resection History/Risk Factors: CVA, Diabetes mellitus, Hypertension Autism Clinical Indicators: 51-year-old male present with abdominal pain. He was found to have dilated small bowel and stomach consistent with significant ileus. Mechanical small bowel obstruction not excluded. On 11/12 patient was hypotensive. Labs were drawn and his hemoglobin is noted to be low at 6.2. transfused 1 unit of blood. 11/12 preop diagnosis: pneumoperitoneum suspect gastric leak. Per operate note: As I dissected the bowel proximal to that a long section of jejunum was noted to have ischemic changes with a gangrenous portion of the antimesenteric wall measuring approximately 7x3 cm. This site also had evidence of perforation. Treatment: ICU/Telemetry monitoring TPN per orders 3/2 NPO 3/2 NGT for decompression .9NS IV Fluid bolus continue per orders TPN for nutritional support (per orders 11/16 Reglan 10 MG IVPB Q6 HRS 11/07-11/10 What relationship, if any, exists between the diagnosis of Pneumoperitoneum suspected gastric leak and the procedure on 10/30/21 exploratory laparotomy, partial gastrectomy Ischemia proximal jejunum? [ ] Pneumoperitoneum suspected gastric leak is a complication of surgical procedure [ ] Pneumoperitoneum suspected gastric leak is an expected outcome of the surgical procedure [ ] Pneumoperitoneum suspected gastric leak is related to patients co-morbid condition(s) of [insert co-morbid dxs] & not a complication of the procedure [ ] Other please specify ____ [XX ] Unable to determine (Template Last Revised: October 2020) MTDD
--- NOTE | 2021-12-04 13:00 | P.PN ---
Subjective Progress Note Date: 12/04/21 Patient evaluated today resting in bed after working with PT. He is slightly tachypneic and does state he is having some pain, unable to tell where and quantify. Patient was switched to PO lasix yesterday. Fecal management system has been removed, continues with indwelling catheter. Abdominal dressing in t act. Chest xray today showing improvement in aeration with some residual atelectasis. Reevluation today by speech is showing continued difficulty with thin liquids. Did well with nectar thick and diet has been upgraded today to dysphagia 3, chopped with nectar thick liquids, with free water guidance. Recommended for modified barium study tomorrow. Continues on TPN. Labs today sodium 134, potassium 5.3, creating 1.11. Blood sugars in the 150s. Liver enzymes elevated slightly. Remains afebrile, heart rate 97, blood pressure 139/81, 98% on room air. Recommended to give some pain medication and see if his breathing slows. Has been on IV invanz since november 17. 12/04/2021 Patient evaluated today with his brothers at bedside who are POA. All questions were answered. Patient today had some faint rales in the bases, he received a one time dose of IV lasix this morning. Will continue with oral lasix tomorrow. He is alert and talking, able to communicate needs. Is requesting water to drink. Bowel movements have slowed. Continues with indwelling catheter. Retention sutures in place to abdomen incision, there is some blood drainage coming from sutures. Hgb today 7.6. Sodium today 135, potassium 5.0. BUN 59, creat 1.08. Blood glucose in the 150-160s. Liver enzymes remain elevated. He has remained afebrile, blood pressure 120/70s. 99% on room air. No longer tachypneic. Patient has been working with PT able to sit at bedside and stand for 10 seconds, requiring maximum assistance. Full Review of systems difficult to obtain. Denies pain today. PHYSICAL EXAMINATION: GENERAL: The patient is alert and oriented x1. Well developed, well nourished. Has lost some weight. HEENT: Pupils are round and equally reacting to light. EOMI. No scleral icterus. No conjunctival pallor. Normocephalic, atraumatic. No pharyngeal erythema. No thyromegaly. CARDIOVASCULAR: S1 and S2 present. No murmurs, rubs, or gallops. PULMONARY: Faint rales in the bases. ABDOMEN: Soft, tender, nondistended, normoactive bowel sounds. No palpable organomegaly. Post surgical abdomen with dressing intact. There is some shadowing on dressing, incision examined, retention sutures present with bloody drainage. MUSCULOSKELETAL: No joint swelling or deformity. EXTREMITIES: No cyanosis, clubbing, or pedal edema. NEUROLOGICAL: Gross neurological examination did not reveal any focal deficits. Baseline mentation developmentally delayed. Pt is slow to respond. SKIN: No rashes. Assessment and plan Assessment Bilateral aspiration pneumonia Ischemia of the lateral portion of the stomach and proximal jejunum, status post partial gastrectomy on 10/30 Pneumoperitoneum and upper abdominal abscess status post exploratory laparotomy on and small bowel resection on 11/12 Leukocytosis secondary to above, resolved Toxic/metabolic encephalopathy Hyperkalemia Tachypneic, could be due to pain, improving Elevated liver enzymes Mostly chronic kidney disease, stage III Developmental delay, was on a [place] [facility] GI Prophylaxis DVT Prophylaxis Full Code Plan Patient is being followed closely by surgery Continue with current diet IV lasix x 1 today, resume oral lasix tomorrow Continues on TPN Continue with local wound care Continues on IV antibiotics, and IV antifungal Repeat labs in AM Prognosis Guarded The impression and plan of care has been dictated by Charu Thrasher, Nurse Practitioner as directed. Dr. Christina MD I have performed a history and physical examination and medical decision making of this patient, discussed the same with the dictator, and agree with the dictators assessment and plan as written, documented as a scribe. Based on total visit time, I have performed more than 50% of this visit. Objective - Vital Signs Vital signs: Vital Signs Temp 98 F 12/04/21 12:31 Pulse 90 12/04/21 12:39 Resp 18 12/04/21 12:31 BP 127/79 12/04/21 12:31 Pulse Ox 99 12/04/21 12:31 Intake & Output 12/03/21 12/04/21 12/04/21 18:59 06:59 18:59 Intake Total 2150 200 Output Total 15 1000 150 Balance 2135 -800 -150 Intake: IV 1400 Fluconazole in NaCl,Iso- 200 Osm 400 mg In Saline 1 200ml.bag @ 100 mls/hr IVPB DAILY [facility] Rx#: [id number] Sodium Chloride 0.9% 1, 120 000 ml @ 20 mls/hr IV . Q24H [facility] Rx#:[id number] TPN 1080 Intake, IV Titration 750 Amount Ertapenem 1 gm In Sodium 50 Chloride 0.9% 50 ml @ 100 mls/hr IVPB DAILY [facility] Rx #:[id number] Fat Emulsion 20% 500 ml 500 In Empty Bag 1 bag @ 42 mls/hr IV Q7D [facility] Rx#: [id number] Magnesium Sulfate-D5w Pmx 200 1 gm In Dextrose/Water 1 100ml.bag @ 100 mls/hr IVPB Q1H [facility] Rx#: [id number] Oral 200 Output: Drainage 15 Left Abdomen 10 Right Abdomen 5 Urine 1000 Stool 150 Other: Voiding Method Indwelling Catheter Indwelling Catheter Indwelling Catheter ABP, PAP, CO, CI - Last Documented Arterial Blood Pressure 144/72 - Labs CBC & Chem 7: 12/04/21 06:56 12/04/21 06:56 Labs: Abnormal Lab Results - Last 24 Hours (Table) 12/03/21 12/03/21 12/04/21 Range/Units 17:22 23:54 06:04 RBC (4.40-5.60) X 10*6/uL Hgb (13.0-17.0) g/dL Hct (39.6-50.0) % MCHC (32.0-37.0) g/dL RDW (11.5-14.5) % Immature Gran # (0.00-0.04) X 10*3/uL Eosinophils # (0.04-0.35) X 10*3/uL Sodium (137-145) mmol/L BUN (9-20) mg/dL Glucose (74-99) mg/dL POC Glucose (mg/dL) 151 H 154 H 134 H (75-99) mg/dL Calcium (8.4-10.2) mg/dL Total Bilirubin (0.2-1.3) mg/dL AST (17-59) U/L ALT (4-49) U/L Alkaline Phosphatase (38-126) U/L Albumin (3.5-5.0) g/dL 12/04/21 12/04/21 12/04/21 Range/Units 06:56 06:56 12:10 RBC 2.74 L (4.40-5.60) X 10*6/uL Hgb 7.6 L (13.0-17.0) g/dL Hct 25.7 L (39.6-50.0) % MCHC 29.6 L (32.0-37.0) g/dL RDW 16.1 H (11.5-14.5) % Immature Gran # 0.07 H (0.00-0.04) X 10*3/uL Eosinophils # 0.75 H (0.04-0.35) X 10*3/uL Sodium 135 L (137-145) mmol/L BUN 59 H (9-20) mg/dL Glucose 141 H (74-99) mg/dL POC Glucose (mg/dL) 169 H (75-99) mg/dL Calcium 10.8 H (8.4-10.2) mg/dL Total Bilirubin 1.4 H (0.2-1.3) mg/dL AST 62 H (17-59) U/L ALT 79 H (4-49) U/L Alkaline Phosphatase 369 H (38-126) U/L Albumin 2.7 L (3.5-5.0) g/dL Assessment and Plan Time with Patient: Less than 30
[2021-12-04] MEDS: [UNRECOGNIZED DRUG - REMARK] IV SCH ×7 (15:20)
[2021-12-04 17:03] LABS: Glucose,Whole Blood 142 mg/dL (75-99)
--- NOTE | 2021-12-04 17:07 | P.PN ---
Progress Note - Text Progress Note Date: 12/04/21 Patient's resting in his bed. He appears in no significant distress. Vital signs are stable. Abdomen soft. Wound is clean. Status post partial gastrectomy and small bowel resection due to ischemia. Patient will receive supportive care.
[2021-12-05 01:26] LABS: Glucose,Whole Blood 149 mg/dL (75-99)
[2021-12-05] MEDS: INSULIN ASPART (NovoLOG) 100 UNIT/ML VIAL SQ SCH ×4 (02:19→18:38)
[2021-12-05 06:12] LABS: Glucose,Whole Blood 139 mg/dL (75-99)
[2021-12-05 06:37] LABS: Anisocytosis Slight; Basophils # (A) 0.1 k/uL (0-0.2); Basophils % (A) 1 %; Eosinophils # (A) 0.8 k/uL (0-0.7); Eosinophils % (A) 9 %; HGB 7.9 gm/dL (13.0-17.5); Hypochromasia Slight; Lymphocytes # (A) 1.3 k/uL (1.0-4.8); Lymphocytes % (A) 13 %; MCH 29.3 pg (25.0-35.0); MCHC 31.6 g/dL (31.0-37.0); Mean Platelet Volume 7.9; Monocytes # (A) 0.5 k/uL (0-1.0); Monocytes % (A) 5 %; Neutrophils # (A) 6.8 k/uL (1.3-7.7); Neutrophils % (A) 70 %; Platelet Count 321 k/uL (150-450); RDW 16.4 % (11.5-15.5); WBC 9.6 k/uL (3.8-10.6)
[2021-12-05 06:53] LABS: Glucose 134 mg/dL (74-99); MCV 92.6 fL (80.0-100.0)
[2021-12-05 06:54] LABS: ALT 70 U/L (4-49); AST 57 U/L (17-59); African American GFR (CKD) >90 (>60 ml/min/1.73 sqM); Albumin 2.7 g/dL (3.5-5.0); Albumin/Globulin Ratio 0.6; Alkaline Phosphatase 339 U/L (38-126); Anion Gap 8 mmol/L; Blood Urea Nitrogen 54 mg/dL (9-20); Calcium 10.4 mg/dL (8.4-10.2); Carbon Dioxide 23 mmol/L (22-30); Chloride 101 mmol/L (98-107); Globulin 4.9 g/dL; Non-African American GFR(CKD) 90 (>60 ml/min/1.73 sqM); Phosphorus 3.7 mg/dL (2.5-4.5); Potassium 4.7 mmol/L (3.5-5.1); Sodium 132 mmol/L (137-145); Total Bilirubin 1.3 mg/dL (0.2-1.3); Total Protein 7.6 g/dL (6.3-8.2)
[2021-12-05] MEDS: IPRATROPIUM-ALBUTEROL 3 ML NEB INHALATION SCH ×3 (08:38→19:09)
[2021-12-05] MEDS: ERTAPENEM 1 GM in SODIUM CHLORIDE 0.9% 50 ML IVPB SCH (10:11)
[2021-12-05] MEDS: FLUCONAZOLE IN NACL,ISO-OSM 400 MG in SALINE 1 200ML.BAG IVPB SCH (10:12)
[2021-12-05] MEDS: PANTOPRAZOLE 40 MG/10 ML VIAL IVP SCH ×2 (10:13→20:43)
[2021-12-05] MEDS: FUROSEMIDE 40 MG TAB PO SCH ×2 (10:13→17:09)
[2021-12-05] MEDS: HYDROPHILIC CREAM 180 GM TUBE TOPICAL SCH (10:16)
[2021-12-05 11:56] LABS: Glucose,Whole Blood 160 mg/dL (75-99)
--- NOTE | 2021-12-05 13:58 | P.PN ---
Subjective From the records, patient could not provide information Patient was admitted for nausea vomiting diarrhea believed to have gastroenteritis. Patient continued to have vomiting and started having abdominal tenderness because of which CT of the abdomen was obtained which showed pneumatosis coli along with some gas in the venous system concern for is chemic bowel. Patient was started on Zosyn. Patient subsequently decompensated patient became hypotensive with BP of 60/40 transferred to ICU patient was given 3 L of boluses of IV fluid NG tube was placed which showed bloody output . Patient in septic shock and receiving norepinephrine at this time. Recent echo showed normal ejection fraction. Patient had CTA of the chest which was negative for pulmonary embolism patient creatinine has worsened and went up to 2.80 today from 1.14 yesterday and this is secondary to acute tubular necrosis from sepsis and septic shock. Patient does have lactic acidosis, patient does have lactic acidosis with lactic acidosis 7.5. Patient will be given 1 L of IV fluids continue pressor support. he is intubated and sedated. 10/31/2021 Patient is started having urine output. Patient underwent a arthrotomy yesterday and found to have ischemia of the lateral portion of the stomach and ischemia of the proximal jejunum patient underwent partial gastrectomy. Patient is presently on that to pressors maximized on norepinephrine, patient is also on vasopressin receiving albumin, IV fluids started having minimal urine output patient was anuric last night. Patient's chloride is highly elevated leading to metabolic acidosis patient also has an anion gap metabolic acidosis from lactic acidosis which appears to be improving at this time patient's overall clinical condition is guarded and the prognosis is poor. Patient Y blood cell count went down in fact patient is neutropenic now. Patient is presently not receiving any nutrition at this time. 11/18/2021 Patient is seen and evaluated in follow up this morning and continues to be in the ICU and was reintubated again this morning. Chest xray shows CHF and pleural effusions as previously noted. No evidence of pneumothorax. Patient continues with an FI02 of 50% and peep is 5. Patient continues on sedation. Patient to continue with IV antibiotics and also antifungals. WBC is elevated. Per nursing staff, hemoglobin is 5.9 and bleeding from NG tube. Patient to receive 2 units of PRBC. 11/19/2021 Patient is seen in follow-up this morning closely monitored with multiple medical consultations following. Patient continues on mechanical vent with an FiO2 of 35% and PEEP is 5. Patient's hemoglobin is 6.7 today and continues with bleeding noted in the NG tube. Patient is to receive another unit of PRBCs and will continue to monitor hemoglobin and bleeding closely. Weaning parameters are continuously being assessed and possible extubation in the next day or so per pulmonary. Brother at the bedside and is agreeable with no CODE STATUS and no further intubations as patient has been also intubated multiple times this admission and continues to deteriorate. Chest x-ray today shows persistent bilateral infiltrates with pleural effusions greater on the left and correlate for pneumonia versus CHF. Kidney functions slightly worsening as well and trending up. WBC continues to be elevated and patient is maintained on IV antibiotics. 11/20/2021 Patient is seen in follow-up today continues to be in the ICU with multiple medical consultations following. Patient was recently extubated yesterday and currently maintained on 6 L nasal cannula. patient continues to have GI bleeding with NG tube noted to have bleeding along with dark maroon stools noted. Hemoglobin is 6.5 today and will be receiving a unit of PRBC. WBC remains elevated and continues on IV antibiotics. Patient is nonverbal but follows simple commands. Continues to be in critical condition. To continue with NG tube and TPN for now. Surgery following as well. Today note 11/21/2021 Patient with past medical history of developmental delay living in a assisted presents to the hospital on 10/29 from his assisted after a fall and suspected syncope. On admission he was AAO 1. Patient has prolonged hospitalization since then for more than 3 weeks. Today is lying in the bed in the ICU, unresponsive and does not follow command and does not answer questions. He is been followed by several consultants including neurologist, makeup sales consultant/critical care team and surgery team. He is a status post exploratory laparotomy and surgical resection of part of the stomach and proximal jejunum secondary to ischemic changes and drainage of the adjacent abscess. He has evidence of persistent bilateral pneumonia and kept on Invanz and fluconazole with body fluid culture showing E. coli and Cortney and chest x-ray showing evidence of bilateral infiltrates read also seen on CT of the abdomen, pelvis and chest without contrast: Bilateral pulmonary consolidation and bilateral pleural effusion. He had negative CT of the brain and ejection fraction 60-65%. His receiving TPN and on Lasix 40 mg twice daily. Labs showing leukocytosis of 20, hemoglobin 6.5, sodium 146, creatinine 1.4 with evidence mostly indicating chronic kidney disease stage III. Also history of chronic fever of 100.6 and saturating low 90s on 4 L/m of oxygen. 11/22/2021 Patient remains in the ICU, he is more awake today, he looks at me if I called in by his name however he fails to follow commands, when I asked him if he is in pain he moves his hands little bit on his abdomen, not sure what does not mean exactly. His oxygen requirement slightly worse up to 5 L/m but today he is afebrile. Labs showing slightly improving leukocytosis at 17.8, hemoglobin improved 7.6, sodium 145 and creatinine came down to 1.18. Test x-ray showing decreased left pleural effusion with bilateral consolidation and nodular density in the prior left perihilar region. Patient remains on Invanz, fluconazole, IV Lasix as well as TPN. His wound edges slightly open with gauze soaked but there is no purulent discharge, EBONY drain and place. Rectal tube in place with no blood in it. Zepeda catheter is in place. 11/23/2021 Patient is a status post left thoracocentesis yesterday with a 20 mm of fluid taken out. Today he is more awake and comfortable, he looks at me when I talked to him but he does not follow commands and he does not answer questions. NG tube with green discharge, he has some black stool. EBONY drains with minimal discharge when I examine him, surgical wound is stable. Patient still has PICC line with TPN running. Vitals and labs looked the same, however oxygen is slightly worse with requirement went up from 5-6 L per minute and chest x-ray showing right lower lobe evolving pneumonia however patient remains on the same antibiotics with invanz and fluconazole. Also he is on IV Lasix and TPN 11/24/2021 Patient mentation it's looks the same for the last couple days. No other new complaint. He slightly more tachypneic today. No chest pain or abdominal pain, distal does not follow commands or answer questions. EBONY drain in place and surgery team are following the patient closely. TPN is running and PICC line is in place. Surgical wound looks stable. Rectal tube in place as well. Patient continued with the same treatment of Invanz, fluconazole and Lasix 40 mg IV twice a day 11/25/2021 No much difference clinically from yesterday, he still encephalopathy per neurologist however neurology service signed off as this is looks chronic. Patient NG tube is recommended to be discontinued today and undergo a swallow evaluation to assess nutrition capability Distal getting TPN through his PICC line, surgical wound is healing and EBONY drains are in place with no worsening discharge. He remains on Invanz and fluconazole and IV Lasix 11/26/2021 Patient awake today looks calm, still have rectal tube and Zepeda catheter. He has low-grade temperature of 100.1, he is slightly tachypneic at 21 but he is on room air today. WBCs 13.8, Hemoglobin 8.3, BMP is unremarkable Patient passed a swallow evaluation today and placed on dysphagia II - ground texture diet with nectar thick liquids, straws are okay, and meds whole in puree, 1:1 feed, aspiration precautions. Magic cups were requested for pt . Swallow evaluation recommendation 11/27/2021 Patient awake, severely lethargic, does not follow, most of the time, he would follow some commands occasionally. NG tube was discontinued and started on dysphagia diet yesterday, he is able to tolerate diet with encouragement. Hemodynamically stable. Remains on TPN and PICC line place Surgical wound stable DC'd telemetry Transfer out of the ICU 11/28/2021 Patient is awake similar to the last few days, he does not follow command. Diet is started yesterday and he is tolerating that and been advanced gradually. Surgical wound is healing gradually and surgery team on the case WBC is 11.9, BMP is unremarkable, hemoglobin 8.2 Patient remains on IV Lasix and antibiotics in the form of Invanz and fluconazole. Also his getting TPN Resume the care of the patient today 12/02/2021 Patient mentation looks the same last week when he was taking care of him. He still marginally follow commands area at His surgical wound is healing. Patient still has poor appetite. He is not eating much per staff. He is still on TPN. Surgery team following him closely. Creatinine today is 1.2. No fever in 48 hours Resume the care of the patient on 12/05/2021 Patient awake and follow simple commands, or trying to, for example he trying to move his hands but only small flickering movement happens on both sides. He answers once or twice with one word. He looks awake with good attention span. He is still has poor diet intake, he remains on TPN. Lab and vitals are stable today. Low calcium replaced swallow evaluation: Aspiration and penetration with larger globes with the liquids. Her estrada the examination with small sips of thin liquid and various consistencies was normal without aspiration or penetration Chest x-ray from 12/03: Improved aeriation with some atelectasis vitals Objective - Vital Signs Vital signs: Vital Signs Temp 98.1 F 12/05/21 07:36 Pulse 95 12/05/21 12:10 Resp 20 12/05/21 07:36 BP 126/73 12/05/21 07:36 Pulse Ox 97 12/05/21 07:36 Intake & Output 12/04/21 12/05/21 12/05/21 18:59 06:59 18:59 Intake Total 1330 200 Output Total 1980 1300 Balance -650 -1100 Weight 69.2 kg Intake: IV 250 Ertapenem 1 gm In Sodium 50 Chloride 0.9% 50 ml @ 100 mls/hr IVPB DAILY [facility] Rx #:[id number] Fluconazole in NaCl,Iso- 200 Osm 400 mg In Saline 1 200ml.bag @ 100 mls/hr IVPB DAILY [facility] Rx#: [id number] Intake, IV Titration 1080 Amount Mvi, Adult No.4 with Vit 1080 K 10 ml Trace (Conc-1Ml/ Dose) 1 ml Potassium Acetate 40 meq Calcium Gluconate 1 gm In Amino Acid 5%-D15w 1,000 ml @ 80 mls/hr IV .BY DURATION [facility] Rx#:[id number] Oral 200 Output: Drainage 30 Left Abdomen 30 Urine 1800 1300 Stool 150 Other: Voiding Method Indwelling Catheter Indwelling Catheter Indwelling Catheter ABP, PAP, CO, CI - Last Documented Arterial Blood Pressure 144/72 - Exam -GENERAL: The patient is awake but does not answer questions,, does not follow commands, does not look in distress. HEENT: Pupils are round and equally reacting to light. EOMI. No scleral icterus. No conjunctival pallor. Normocephalic, atraumatic. No pharyngeal erythema. No th yromegaly. CARDIOVASCULAR: S1 and S2 present. No murmurs, rubs, or gallops. -PULMONARY: Chest is clear to auscultation, no wheezing . Bilateral crepitation and decreased breath sounds -ABDOMEN: Soft, nontender, nondistended, normoactive bowel sounds. No palpable organomegaly. Surgical wound slightly open at the ages with no purulent discharge, EBONY drain in place MUSCULOSKELETAL: No joint swelling or deformity. EXTREMITIES: No cyanosis, clubbing, or pedal edema. NEUROLOGICAL: Gross neurological examination did not reveal any focal deficits. SKIN: No rashes. no petechiae. - Labs CBC & Chem 7: 12/05/21 05:53 12/05/21 05:53 Labs: Abnormal Lab Results - Last 24 Hours (Table) 12/04/21 12/05/21 12/05/21 Range/Units 17:00 01:20 05:53 RBC (4.30-5.90) m/uL Hgb (13.0-17.5) gm/dL Hct (39.0-53.0) % RDW (11.5-15.5) % Eosinophils # (0-0.7) k/uL Sodium 132 L (137-145) mmol/L BUN 54 H (9-20) mg/dL Glucose 134 H (74-99) mg/dL POC Glucose (mg/dL) 142 H 149 H (75-99) mg/dL Calcium 10.4 H (8.4-10.2) mg/dL Ionized Calcium Azucena (4.5-5.3) mg/dL ALT 70 H (4-49) U/L Alkaline Phosphatase 339 H (38-126) U/L Albumin 2.7 L (3.5-5.0) g/dL 12/05/21 12/05/21 12/05/21 Range/Units 05:53 05:53 05:59 RBC 2.70 L (4.30-5.90) m/uL Hgb 7.9 L (13.0-17.5) gm/dL Hct 25.0 L (39.0-53.0) % RDW 16.4 H (11.5-15.5) % Eosinophils # 0.8 H (0-0.7) k/uL Sodium (137-145) mmol/L BUN (9-20) mg/dL Glucose (74-99) mg/dL POC Glucose (mg/dL) 139 H (75-99) mg/dL Calcium (8.4-10.2) mg/dL Ionized Calcium Azucena 6.6 H* (4.5-5.3) mg/dL ALT (4-49) U/L Alkaline Phosphatase (38-126) U/L Albumin (3.5-5.0) g/dL 12/05/21 Range/Units 11:55 RBC (4.30-5.90) m/uL Hgb (13.0-17.5) gm/dL Hct (39.0-53.0) % RDW (11.5-15.5) % Eosinophils # (0-0.7) k/uL Sodium (137-145) mmol/L BUN (9-20) mg/dL Glucose (74-99) mg/dL POC Glucose (mg/dL) 160 H (75-99) mg/dL Calcium (8.4-10.2) mg/dL Ionized Calcium Azucena (4.5-5.3) mg/dL ALT (4-49) U/L Alkaline Phosphatase (38-126) U/L Albumin (3.5-5.0) g/dL Assessment and Plan Assessment: Bilateral aspiration pneumonia Ischemia of the lateral portion of the stomach and proximal jejunum, status post partial gastrectomy on 10/30 Pneumoperitoneum and upper abdominal abscess status post exploratory laparotomy on and small bowel resection on 11/12 Toxic/metabolic encephalopathy Mostly chronic kidney disease, stage III Developmental delay, was on a assisted Plan: This is a pleasant 51 years old male who presents with bowel ischemia status post resection, aspiration pneumonia. Continue with Invanz, fluconazole: Switch IV Lasix and oral dose 40 mg twice a day Fecal management tube was discontinued today Still on dysphagia diet with aspiration precautions TPN management as per surgery team Follow-up recommendation by pulmonary/critical care team, surgery team, and the neurologist Labs and medication were reviewed.. Continue same treatment. Continue with symptomatic treatment. Resume home medication. Monitor lytes and vitals. DVT and GI prophylaxis. Further recommendations as per clinical course of the patient Prognosis is extremely guarded
[2021-12-05] MEDS ORDERED: CALCIUM GLUCONATE IN NACL 1 GM in SALINE 1 100ML.BAG IVPB ONE (14:30)
[2021-12-05] MEDS: [UNRECOGNIZED DRUG - REMARK] IV SCH ×7 (15:08)
--- NOTE | 2021-12-05 16:41 | P.PN ---
Subjective Progress Note Date: 12/05/21 CHIEF COMPLAINT: Abdominal pain HISTORY OF PRESENT ILLNES: Patient is lying in bed comfortably. Per nursing staff patient has poor oral intake. He is only eating about 15-25% of his meals. He does have TPN. He is currently on a chopped diet. Patient is on regular medical floor. Afebrile. WBC 9.6 hemoglobin 7.9 platelets 321 sodium 132 potassium 4.7 creatinine 0.96 Ionized calcium 6.6 patient did receive calcium gluconate PHYSICAL EXAM: VITAL SIGNS: Reviewed. GENERAL: Patient is more awake and responsive. He does say a few words. HEENT: Moist buccal mucosa. Head is atraumatic, normocephalic. ABDOMEN: Soft. Nondistended. EBONY drains the drain on the left with purulent output about 30 mL. The drain on the right minimal serous drainage otherwise incision site clean dry and intact. ASSESSMENT: 1. Pneumoperitoneum, suspected gastric leak and section of proximal jejunum with ischemic changes status post exploratory laparotomy, drainage of upper abdominal abscess, lysis of adhesions and small bowel resection on 11/12/21 2. Ischemia of the lateral portion of the stomach and mild ischemia of the proximal jejunum status post exploratory laparotomy and partial gastrectomy on 10/30/21 3. Septic shock 4. Postoperative ileus resolved 5. Thrombocytopenia resolved 6. Possible aspiration pneumonia 7. Anemia 8. Left Pleural effusion status post thoracentesis PLAN: -Continue chopped diet. Patient requires assistance with meals -Continue supportive care -Continue local wound care -Continue to monitor hemoglobin -Continue to monitor EBONY drain output -Continue antibiotics -Continue TPN for nutrition support until oral intake has increased -CODE STATUS DO NOT RESUSCITATE/DO NOT INTUBATE Physician Clinic Nurse note has been reviewed by physician. Signing provider agrees with the documented findings, assessment, and plan of care. Objective - Vital Signs Vital signs: Vital Signs Temp 98.1 F 12/05/21 07:36 Pulse 95 12/05/21 12:10 Resp 20 12/05/21 07:36 BP 126/73 12/05/21 07:36 Pulse Ox 97 12/05/21 07:36 Intake & Output 12/04/21 12/05/21 12/05/21 18:59 06:59 18:59 Intake Total 3400 200 Output Total 1980 1300 Balance 1420 -1100 Weight 69.2 kg Intake: IV 250 Ertapenem 1 gm In Sodium 50 Chloride 0.9% 50 ml @ 100 mls/hr IVPB DAILY REPLACED BY [facility] Rx #:[id number] Fluconazole in NaCl,Iso- 200 Osm 400 mg In Saline 1 200ml.bag @ 100 mls/hr IVPB DAILY REPLACED BY [facility] Rx#: [id number] Intake, IV Titration 3150 Amount Mvi, Adult No.4 with Vit 1080 K 10 ml Trace (Conc-1Ml/ Dose) 1 ml Potassium Acetate 40 meq Calcium Gluconate 1 gm In Amino Acid 5%-D15w 1,000 ml @ 80 mls/hr IV .BY DURATION [facility] Rx#:[id number] Mvi, Adult No.4 with Vit 2070 K 10 ml Trace (Conc-1Ml/ Dose) 1 ml Potassium Chloride 60 meq Sodium Acetate 40 meq Sodium Chloride 2.5MEQ/ml Vial 20 meq Magnesium Sulfate gm 0.5 gm In Amino Acids 5 %/Dextrose 20 % 2,000 ml @ 90 mls/hr IV .BY DURATION REPLACED BY [facility] Rx#: [id number] Oral 200 Output: Drainage 30 Left Abdomen 30 Urine 1800 1300 Stool 150 Other: Voiding Method Indwelling Catheter Indwelling Catheter Indwelling Catheter ABP, PAP, CO, CI - Last Documented Arterial Blood Pressure 144/72 - Labs CBC & Chem 7: 12/05/21 05:53 12/05/21 05:53 Labs: Abnormal Lab Results - Last 24 Hours (Table) 12/04/21 12/05/21 12/05/21 Range/Units 17:00 01:20 05:53 RBC (4.30-5.90) m/uL Hgb (13.0-17.5) gm/dL Hct (39.0-53.0) % RDW (11.5-15.5) % Eosinophils # (0-0.7) k/uL Sodium 132 L (137-145) mmol/L BUN 54 H (9-20) mg/dL Glucose 134 H (74-99) mg/dL POC Glucose (mg/dL) 142 H 149 H (75-99) mg/dL Calcium 10.4 H (8.4-10.2) mg/dL Ionized Calcium Azucena (4.5-5.3) mg/dL ALT 70 H (4-49) U/L Alkaline Phosphatase 339 H (38-126) U/L Albumin 2.7 L (3.5-5.0) g/dL 12/05/21 12/05/21 12/05/21 Range/Units 05:53 05:53 05:59 RBC 2.70 L (4.30-5.90) m/uL Hgb 7.9 L (13.0-17.5) gm/dL Hct 25.0 L (39.0-53.0) % RDW 16.4 H (11.5-15.5) % Eosinophils # 0.8 H (0-0.7) k/uL Sodium (137-145) mmol/L BUN (9-20) mg/dL Glucose (74-99) mg/dL POC Glucose (mg/dL) 139 H (75-99) mg/dL Calcium (8.4-10.2) mg/dL Ionized Calcium Azucena 6.6 H* (4.5-5.3) mg/dL ALT (4-49) U/L Alkaline Phosphatase (38-126) U/L Albumin (3.5-5.0) g/dL 12/05/21 Range/Units 11:55 RBC (4.30-5.90) m/uL Hgb (13.0-17.5) gm/dL Hct (39.0-53.0) % RDW (11.5-15.5) % Eosinophils # (0-0.7) k/uL Sodium (137-145) mmol/L BUN (9-20) mg/dL Glucose (74-99) mg/dL POC Glucose (mg/dL) 160 H (75-99) mg/dL Calcium (8.4-10.2) mg/dL Ionized Calcium Azucena (4.5-5.3) mg/dL ALT (4-49) U/L Alkaline Phosphatase (38-126) U/L Albumin (3.5-5.0) g/dL
[2021-12-05 17:46] LABS: Glucose,Whole Blood 148 mg/dL (75-99)
[2021-12-06] MEDS: INSULIN ASPART (NovoLOG) 100 UNIT/ML VIAL SQ SCH ×4 (00:15→18:06)
[2021-12-06 00:19] LABS: Glucose,Whole Blood 159 mg/dL (75-99)
[2021-12-06 06:10] LABS: Glucose,Whole Blood 141 mg/dL (75-99)
[2021-12-06 07:47] LABS: Glucose,Whole Blood 146 mg/dL (75-99)
[2021-12-06 08:21] LABS: ALT 67 U/L (4-49); AST 55 U/L (17-59); African American GFR (CKD) >90 (>60 ml/min/1.73 sqM); Albumin 2.7 g/dL (3.5-5.0); Albumin/Globulin Ratio 0.6; Alkaline Phosphatase 340 U/L (38-126); Anion Gap 6 mmol/L; Blood Urea Nitrogen 46 mg/dL (9-20); Calcium 10.5 mg/dL (8.4-10.2); Carbon Dioxide 27 mmol/L (22-30); Chloride 100 mmol/L (98-107); Globulin 4.9 g/dL; Glucose 135 mg/dL (74-99); Magnesium 1.8 mg/dL (1.6-2.3); Non-African American GFR(CKD) >90 (>60 ml/min/1.73 sqM); Phosphorus 3.6 mg/dL (2.5-4.5); Potassium 4.3 mmol/L (3.5-5.1); Sodium 133 mmol/L (137-145); Total Bilirubin 1.2 mg/dL (0.2-1.3); Total Protein 7.6 g/dL (6.3-8.2)
[2021-12-06] MEDS: IPRATROPIUM-ALBUTEROL 3 ML NEB INHALATION SCH ×3 (09:48→19:41)
[2021-12-06] MEDS: ERTAPENEM 1 GM in SODIUM CHLORIDE 0.9% 50 ML IVPB SCH (10:13)
[2021-12-06] MEDS: FLUCONAZOLE IN NACL,ISO-OSM 400 MG in SALINE 1 200ML.BAG IVPB SCH (10:25)
[2021-12-06] MEDS: PANTOPRAZOLE 40 MG/10 ML VIAL IVP SCH ×2 (10:25→20:54)
[2021-12-06] MEDS: FUROSEMIDE 40 MG TAB PO SCH ×2 (10:26→16:05)
[2021-12-06 10:33] LABS: Basophils # (A) 0.07 X 10*3/uL (0.00-0.10); Basophils % (A) 0.8 %; Eosinophils # (A) 0.95 X 10*3/uL (0.04-0.35); Eosinophils % (A) 10.2 %; HGB 7.7 g/dL (13.0-17.0); Immature Grans, Automated 0.9 %; Lymphocytes # (A) 1.01 X 10*3/uL (0.90-5.00); Lymphocytes % (A) 10.8 %; MCH 27.9 pg (27.0-32.0); MCHC 30.8 g/dL (32.0-37.0); MCV 90.6 fL (80.0-97.0); Mean Platelet Volume 10.7 fL (9.5-12.2); Monocytes % (A) 8.6 %; NRBC Per 100 WBC 0 /100 WBCS (0.0-0.0); Neutrophils % (A) 68.7 %; Platelet Count 282 X 10*3/uL (140-440); RBC 2.76 X 10*6/uL (4.40-5.60); RDW 15.9 % (11.5-14.5); WBC 9.31 X 10*3/uL (4.50-10.00)
[2021-12-06] MEDS: HYDROPHILIC CREAM 180 GM TUBE TOPICAL SCH (10:36)
[2021-12-06] MEDS: MAGNESIUM SULFATE-D5W PMX 1 GM in DEXTROSE/WATER 1 100ML.BAG IVPB SCH ×2 (10:43→12:28)
[2021-12-06 12:16] LABS: Glucose,Whole Blood 168 mg/dL (75-99)
--- NOTE | 2021-12-06 12:18 | P.PN ---
Subjective From the records, patient could not provide information Patient was admitted for nausea vomiting diarrhea believed to have gastroenteritis. Patient continued to have vomiting and started having abdominal tenderness because of which CT of the abdomen was obtained which showed pneumatosis coli along with some gas in the venous system concern for is chemic bowel. Patient was started on Zosyn. Patient subsequently decompensated patient became hypotensive with BP of 60/40 transferred to ICU patient was given 3 L of boluses of IV fluid NG tube was placed which showed bloody output . Patient in septic shock and receiving norepinephrine at this time. Recent echo showed normal ejection fraction. Patient had CTA of the chest which was negative for pulmonary embolism patient creatinine has worsened and went up to 2.80 today from 1.14 yesterday and this is secondary to acute tubular necrosis from sepsis and septic shock. Patient does have lactic acidosis, patient does have lactic acidosis with lactic acidosis 7.5. Patient will be given 1 L of IV fluids continue pressor support. he is intubated and sedated. 10/31/2021 Patient is started having urine output. Patient underwent a arthrotomy yesterday and found to have ischemia of the lateral portion of the stomach and ischemia of the proximal jejunum patient underwent partial gastrectomy. Patient is presently on that to pressors maximized on norepinephrine, patient is also on vasopressin receiving albumin, IV fluids started having minimal urine output patient was anuric last night. Patient's chloride is highly elevated leading to metabolic acidosis patient also has an anion gap metabolic acidosis from lactic acidosis which appears to be improving at this time patient's overall clinical condition is guarded and the prognosis is poor. Patient Y blood cell count went down in fact patient is neutropenic now. Patient is presently not receiving any nutrition at this time. 11/18/2021 Patient is seen and evaluated in follow up this morning and continues to be in the ICU and was reintubated again this morning. Chest xray shows CHF and pleural effusions as previously noted. No evidence of pneumothorax. Patient continues with an FI02 of 50% and peep is 5. Patient continues on sedation. Patient to continue with IV antibiotics and also antifungals. WBC is elevated. Per nursing staff, hemoglobin is 5.9 and bleeding from NG tube. Patient to receive 2 units of PRBC. 11/19/2021 Patient is seen in follow-up this morning closely monitored with multiple medical consultations following. Patient continues on mechanical vent with an FiO2 of 35% and PEEP is 5. Patient's hemoglobin is 6.7 today and continues with bleeding noted in the NG tube. Patient is to receive another unit of PRBCs and will continue to monitor hemoglobin and bleeding closely. Weaning parameters are continuously being assessed and possible extubation in the next day or so per pulmonary. Brother at the bedside and is agreeable with no CODE STATUS and no further intubations as patient has been also intubated multiple times this admission and continues to deteriorate. Chest x-ray today shows persistent bilateral infiltrates with pleural effusions greater on the left and correlate for pneumonia versus CHF. Kidney functions slightly worsening as well and trending up. WBC continues to be elevated and patient is maintained on IV antibiotics. 11/20/2021 Patient is seen in follow-up today continues to be in the ICU with multiple medical consultations following. Patient was recently extubated yesterday and currently maintained on 6 L nasal cannula. patient continues to have GI bleeding with NG tube noted to have bleeding along with dark maroon stools noted. Hemoglobin is 6.5 today and will be receiving a unit of PRBC. WBC remains elevated and continues on IV antibiotics. Patient is nonverbal but follows simple commands. Continues to be in critical condition. To continue with NG tube and TPN for now. Surgery following as well. Today note 11/21/2021 Patient with past medical history of developmental delay living in a prison presents to the hospital on 10/29 from his prison after a fall and suspected syncope. On admission he was AAO 1. Patient has prolonged hospitalization since then for more than 3 weeks. Today is lying in the bed in the ICU, unresponsive and does not follow command and does not answer questions. He is been followed by several consultants including neurologist, it field technician/critical care team and surgery team. He is a status post exploratory laparotomy and surgical resection of part of the stomach and proximal jejunum secondary to ischemic changes and drainage of the adjacent abscess. He has evidence of persistent bilateral pneumonia and kept on Invanz and fluconazole with body fluid culture showing E. coli and Cortney and chest x-ray showing evidence of bilateral infiltrates read also seen on CT of the abdomen, pelvis and chest without contrast: Bilateral pulmonary consolidation and bilateral pleural effusion. He had negative CT of the brain and ejection fraction 60-65%. His receiving TPN and on Lasix 40 mg twice daily. Labs showing leukocytosis of 20, hemoglobin 6.5, sodium 146, creatinine 1.4 with evidence mostly indicating chronic kidney disease stage III. Also history of chronic fever of 100.6 and saturating low 90s on 4 L/m of oxygen. 11/22/2021 Patient remains in the ICU, he is more awake today, he looks at me if I called in by his name however he fails to follow commands, when I asked him if he is in pain he moves his hands little bit on his abdomen, not sure what does not mean exactly. His oxygen requirement slightly worse up to 5 L/m but today he is afebrile. Labs showing slightly improving leukocytosis at 17.8, hemoglobin improved 7.6, sodium 145 and creatinine came down to 1.18. Test x-ray showing decreased left pleural effusion with bilateral consolidation and nodular density in the prior left perihilar region. Patient remains on Invanz, fluconazole, IV Lasix as well as TPN. His wound edges slightly open with gauze soaked but there is no purulent discharge, EBONY drain and place. Rectal tube in place with no blood in it. Zepeda catheter is in place. 11/23/2021 Patient is a status post left thoracocentesis yesterday with a 20 mm of fluid taken out. Today he is more awake and comfortable, he looks at me when I talked to him but he does not follow commands and he does not answer questions. NG tube with green discharge, he has some black stool. EBONY drains with minimal discharge when I examine him, surgical wound is stable. Patient still has PICC line with TPN running. Vitals and labs looked the same, however oxygen is slightly worse with requirement went up from 5-6 L per minute and chest x-ray showing right lower lobe evolving pneumonia however patient remains on the same antibiotics with invanz and fluconazole. Also he is on IV Lasix and TPN 11/24/2021 Patient mentation it's looks the same for the last couple days. No other new complaint. He slightly more tachypneic today. No chest pain or abdominal pain, distal does not follow commands or answer questions. EBONY drain in place and surgery team are following the patient closely. TPN is running and PICC line is in place. Surgical wound looks stable. Rectal tube in place as well. Patient continued with the same treatment of Invanz, fluconazole and Lasix 40 mg IV twice a day 11/25/2021 No much difference clinically from yesterday, he still encephalopathy per neurologist however neurology service signed off as this is looks chronic. Patient NG tube is recommended to be discontinued today and undergo a swallow evaluation to assess nutrition capability Distal getting TPN through his PICC line, surgical wound is healing and EBONY drains are in place with no worsening discharge. He remains on Invanz and fluconazole and IV Lasix 11/26/2021 Patient awake today looks calm, still have rectal tube and Zepeda catheter. He has low-grade temperature of 100.1, he is slightly tachypneic at 21 but he is on room air today. WBCs 13.8, Hemoglobin 8.3, BMP is unremarkable Patient passed a swallow evaluation today and placed on dysphagia II - ground texture diet with nectar thick liquids, straws are okay, and meds whole in puree, 1:1 feed, aspiration precautions. Magic cups were requested for pt . Swallow evaluation recommendation 11/27/2021 Patient awake, severely lethargic, does not follow, most of the time, he would follow some commands occasionally. NG tube was discontinued and started on dysphagia diet yesterday, he is able to tolerate diet with encouragement. Hemodynamically stable. Remains on TPN and PICC line place Surgical wound stable DC'd telemetry Transfer out of the ICU 11/28/2021 Patient is awake similar to the last few days, he does not follow command. Diet is started yesterday and he is tolerating that and been advanced gradually. Surgical wound is healing gradually and surgery team on the case WBC is 11.9, BMP is unremarkable, hemoglobin 8.2 Patient remains on IV Lasix and antibiotics in the form of Invanz and fluconazole. Also his getting TPN Resume the care of the patient today 12/02/2021 Patient mentation looks the same last week when he was taking care of him. He still marginally follow commands area at His surgical wound is healing. Patient still has poor appetite. He is not eating much per staff. He is still on TPN. Surgery team following him closely. Creatinine today is 1.2. No fever in 48 hours Resume the care of the patient on 12/05/2021 Patient awake and follow simple commands, or trying to, for example he trying to move his hands but only small flickering movement happens on both sides. He answers once or twice with one word. He looks awake with good attention span. He is still has poor diet intake, he remains on TPN. Lab and vitals are stable today. Low calcium replaced swallow evaluation: Aspiration and penetration with larger globes with the liquids. Her setrada the examination with small sips of thin liquid and various consistencies was normal without aspiration or penetration Chest x-ray from 12/03: Improved aeriation with some atelectasis vitals 12/06/2021 pt is awake and alert and follows commands , he looks more pleasant that pr evious days. still not talking much, only 1-2 waters He is eating/drinking simple diet. Patient encouraged to eat and drink more and he looks and agreement. Staff at bedside and help him to do so as well. Patient remains on TPN Abdomen that vitals and labs looks stable, WBC 9.3, hemoglobin 7.7, creatinine 0.8. Objective - Vital Signs Vital signs: Vital Signs Temp 98.7 F 12/06/21 07:35 Pulse 98 12/06/21 07:35 Resp 18 12/06/21 07:35 BP 136/79 12/06/21 07:35 Pulse Ox 97 12/06/21 07:35 Intake & Output 12/05/21 12/06/21 12/06/21 18:59 06:59 18:59 Intake Total 150 180 Output Total 925 1520 Balance -925 -1370 180 Weight 69.2 kg Intake: Oral 150 180 Output: Drainage 25 20 Left Abdomen 20 20 Right Abdomen 5 0 Urine 900 1500 Uretheral (Zepeda) 900 Other: Voiding Method Indwelling Catheter Indwelling Catheter Indwelling Catheter # Bowel Movements 1 ABP, PAP, CO, CI - Last Documented Arterial Blood Pressure 144/72 - Exam -GENERAL: The patient is awake but does not answer questions,, does not follow commands, does not look in distress. HEENT: Pupils are round and equally reacting to light. EOMI. No scleral icterus. No conjunctival pallor. Normocephalic, atraumatic. No pharyngeal erythema. No thyromegaly. CARDIOVASCULAR: S1 and S2 present. No murmurs, rubs, or gallops. -PULMONARY: Chest is clear to auscultation, no wheezing . Bilateral crepitation and decreased breath sounds -ABDOMEN: Soft, nontender, nondistended, normoactive bowel sounds. No palpable organomegaly. Surgical wound slightly open at the ages with no purulent discharge, EBONY drain in place MUSCULOSKELETAL: No joint swelling or deformity. EXTREMITIES: No cyanosis, clubbing, or pedal edema. NEUROLOGICAL: Gross neurological examination did not reveal any focal deficits. SKIN: No rashes. no petechiae. - Labs CBC & Chem 7: 12/06/21 06:14 12/06/21 06:14 Labs: Abnormal Lab Results - Last 24 Hours (Table) 12/05/21 12/06/21 12/06/21 Range/Units 17:40 00:06 05:58 RBC (4.40-5.60) X 10*6/uL Hgb (13.0-17.0) g/dL Hct (39.6-50.0) % MCHC (32.0-37.0) g/dL RDW (11.5-14.5) % Immature Gran # (0.00-0.04) X 10*3/uL Eosinophils # (0.04-0.35) X 10*3/uL Sodium (137-145) mmol/L BUN (9-20) mg/dL Glucose (74-99) mg/dL POC Glucose (mg/dL) 148 H 159 H 141 H (75-99) mg/dL Calcium (8.4-10.2) mg/dL ALT (4-49) U/L Alkaline Phosphatase (38-126) U/L Albumin (3.5-5.0) g/dL 12/06/21 12/06/21 12/06/21 Range/Units 06:14 06:14 07:45 RBC 2.76 L (4.40-5.60) X 10*6/uL Hgb 7.7 L (13.0-17.0) g/dL Hct 25.0 L (39.6-50.0) % MCHC 30.8 L (32.0-37.0) g/dL RDW 15.9 H (11.5-14.5) % Immature Gran # 0.08 H (0.00-0.04) X 10*3/uL Eosinophils # 0.95 H (0.04-0.35) X 10*3/uL Sodium 133 L (137-145) mmol/L BUN 46 H (9-20) mg/dL Glucose 135 H (74-99) mg/dL POC Glucose (mg/dL) 146 H (75-99) mg/dL Calcium 10.5 H (8.4-10.2) mg/dL ALT 67 H (4-49) U/L Alkaline Phosphatase 340 H (38-126) U/L Albumin 2.7 L (3.5-5.0) g/dL 12/06/21 Range/Units 12:14 RBC (4.40-5.60) X 10*6/uL Hgb (13.0-17.0) g/dL Hct (39.6-50.0) % MCHC (32.0-37.0) g/dL RDW (11.5-14.5) % Immature Gran # (0.00-0.04) X 10*3/uL Eosinophils # (0.04-0.35) X 10*3/uL Sodium (137-145) mmol/L BUN (9-20) mg/dL Glucose (74-99) mg/dL POC Glucose (mg/dL) 168 H (75-99) mg/dL Calcium (8.4-10.2) mg/dL ALT (4-49) U/L Alkaline Phosphatase (38-126) U/L Albumin (3.5-5.0) g/dL Assessment and Plan Assessment: Bilateral aspiration pneumonia Ischemia of the lateral portion of the stomach and proximal jejunum, status post partial gastrectomy on 10/30 Pneumoperitoneum and upper abdominal abscess status post exploratory laparotomy on and small bowel resection on 11/12 Toxic/metabolic encephalopathy Mostly chronic kidney disease, stage III Developmental delay, was on a prison Plan: This is a pleasant 51 years old male who presents with bowel ischemia status post resection, aspiration pneumonia. Continue with Invanz, fluconazole: Switch IV Lasix and oral dose 40 mg twice a day Fecal management tube was discontinued today Still on dysphagia diet with aspiration precautions TPN management as per surgery team Follow-up recommendation by pulmonary/critical care team, surgery team, and the neurologist Labs and medication were reviewed.. Continue same treatment. Continue with symptomatic treatment. Resume home medication. Monitor lytes and vitals. DVT and GI prophylaxis. Further recommendations as per clinical course of the patient Prognosis is extremely guarded
[2021-12-06] MEDS: [UNRECOGNIZED DRUG - REMARK] IV SCH ×7 (13:45)
--- NOTE | 2021-12-06 14:51 | P.PN ---
Subjective Progress Note Date: 12/06/21 CHIEF COMPLAINT: Abdominal pain HISTORY OF PRESENT ILLNES: Patient is lying in bed comfortably. Per nursing staff patient has poor oral intake. He is only eating about 15-25% of his meals. He does have TPN. He is currently on a chopped diet. Patient is on regular medical floor. Afebrile. WBC 9.3 HGB 7.7 sodium 133 creatinine 0.89 PHYSICAL EXAM: VITAL SIGNS: Reviewed. GENERAL: Patient is more awake and responsive. He does say a few words. HEENT: Moist buccal mucosa. Head is atraumatic, normocephalic. ABDOMEN: Soft. Nondistended. EBONY drains the drain on the left with purulent output about 20 mL. The drain on the right minimal serous drainage. Incisional dressing clean dry and intact ASSESSMENT: 1. Pneumoperitoneum, suspected gastric leak and section of proximal jejunum with ischemic changes status post exploratory laparotomy, drainage of upper abdominal abscess, lysis of adhesions and small bowel resection on 11/12/21 2. Ischemia of the lateral portion of the stomach and mild ischemia of the proximal jejunum status post exploratory laparotomy and partial gastrectomy on 10/30/21 3. Septic shock 4. Postoperative ileus resolved 5. Thrombocytopenia resolved 6. Possible aspiration pneumonia 7. Anemia 8. Left Pleural effusion status post thoracentesis PLAN: -Continue chopped diet. Patient requires assistance with meals -Continue supportive care -Continue local wound care -Continue to monitor hemoglobin -Continue to monitor EBONY drain output -Continue antibiotics -Continue TPN for nutrition support until oral intake has increased -CODE STATUS DO NOT RESUSCITATE/DO NOT INTUBATE Physician Lap Maker note has been reviewed by physician. Signing provider agrees with the documented findings, assessment, and plan of care. I have personally seen and examined the patient, reviewed the [facility] [employer] /PAs history, exam and MDM and agree with the assessment and plan as written. Based on total visit time, I have performed more than 50% of the visit. As above: Patient sleeping comfortably. Has not been having significant pain. Still not eating much. Continue TPN. Objective - Vital Signs Vital signs: Vital Signs Temp 97.9 F 12/06/21 12:44 Pulse 85 12/06/21 12:44 Resp 18 12/06/21 12:44 BP 122/73 12/06/21 12:44 Pulse Ox 100 12/06/21 12:44 Intake & Output 12/05/21 12/06/21 12/06/21 18:59 06:59 18:59 Intake Total 2058 150 298 Output Total 925 1520 1000 Balance 1134 -1370 -702 Weight 69.2 kg 69.2 kg Intake: Intake, IV Titration 2058 Amount Potassium Chloride 60 meq 2058 Sodium Acetate 40 meq Sodium Chloride 2.5MEQ/ml Vial 20 meq Magnesium Sulfate gm 0.5 gm In Amino Acids 5 %/Dextrose 20 % 2,000 ml @ 90 mls/hr IV .BY [facility] Rx#: [id number] Oral 150 298 Output: Drainage 25 20 Left Abdomen 20 20 Right Abdomen 5 0 Urine 900 1500 1000 Uretheral (Zepeda) 900 Other: Voiding Method Indwelling Catheter Indwelling Catheter Indwelling Catheter # Bowel Movements 1 ABP, PAP, CO, CI - Last Documented Arterial Blood Pressure 144/72 - Labs CBC & Chem 7: 12/06/21 06:14 12/06/21 06:14 Labs: Abnormal Lab Results - Last 24 Hours (Table) 12/05/21 12/06/21 12/06/21 Range/Units 17:40 00:06 05:58 RBC (4.40-5.60) X 10*6/uL Hgb (13.0-17.0) g/dL Hct (39.6-50.0) % MCHC (32.0-37.0) g/dL RDW (11.5-14.5) % Immature Gran # (0.00-0.04) X 10*3/uL Eosinophils # (0.04-0.35) X 10*3/uL Sodium (137-145) mmol/L BUN (9-20) mg/dL Glucose (74-99) mg/dL POC Glucose (mg/dL) 148 H 159 H 141 H (75-99) mg/dL Calcium (8.4-10.2) mg/dL ALT (4-49) U/L Alkaline Phosphatase (38-126) U/L Albumin (3.5-5.0) g/dL 12/06/21 12/06/21 12/06/21 Range/Units 06:14 06:14 07:45 RBC 2.76 L (4.40-5.60) X 10*6/uL Hgb 7.7 L (13.0-17.0) g/dL Hct 25.0 L (39.6-50.0) % MCHC 30.8 L (32.0-37.0) g/dL RDW 15.9 H (11.5-14.5) % Immature Gran # 0.08 H (0.00-0.04) X 10*3/uL Eosinophils # 0.95 H (0.04-0.35) X 10*3/uL Sodium 133 L (137-145) mmol/L BUN 46 H (9-20) mg/dL Glucose 135 H (74-99) mg/dL POC Glucose (mg/dL) 146 H (75-99) mg/dL Calcium 10.5 H (8.4-10.2) mg/dL ALT 67 H (4-49) U/L Alkaline Phosphatase 340 H (38-126) U/L Albumin 2.7 L (3.5-5.0) g/dL 12/06/21 Range/Units 12:14 RBC (4.40-5.60) X 10*6/uL Hgb (13.0-17.0) g/dL Hct (39.6-50.0) % MCHC (32.0-37.0) g/dL RDW (11.5-14.5) % Immature Gran # (0.00-0.04) X 10*3/uL Eosinophils # (0.04-0.35) X 10*3/uL Sodium (137-145) mmol/L BUN (9-20) mg/dL Glucose (74-99) mg/dL POC Glucose (mg/dL) 168 H (75-99) mg/dL Calcium (8.4-10.2) mg/dL ALT (4-49) U/L Alkaline Phosphatase (38-126) U/L Albumin (3.5-5.0) g/dL Microbiology - Last 24 Hours (Table) 11/22/21 13:20 Fungal Culture - Preliminary Pleural Fluid
[2021-12-06 17:57] LABS: Glucose,Whole Blood 142 mg/dL (75-99)
[2021-12-07 00:04] LABS: Glucose,Whole Blood 139 mg/dL (75-99)
[2021-12-07] MEDS: INSULIN ASPART (NovoLOG) 100 UNIT/ML VIAL SQ SCH ×5 (00:33→23:42)
[2021-12-07 06:24] LABS: Glucose,Whole Blood 152 mg/dL (75-99)
[2021-12-07 06:46] LABS: Glucose,Whole Blood 156 mg/dL (75-99)
[2021-12-07 08:05] LABS: ALT 58 U/L (4-49); AST 48 U/L (17-59); African American GFR (CKD) >90 (>60 ml/min/1.73 sqM); Albumin 2.7 g/dL (3.5-5.0); Albumin/Globulin Ratio 0.6; Alkaline Phosphatase 323 U/L (38-126); Anion Gap 6 mmol/L; Blood Urea Nitrogen 43 mg/dL (9-20); Calcium 10.5 mg/dL (8.4-10.2); Carbon Dioxide 29 mmol/L (22-30); Chloride 98 mmol/L (98-107); Globulin 4.9 g/dL; Glucose 142 mg/dL (74-99); Non-African American GFR(CKD) 90 (>60 ml/min/1.73 sqM); Phosphorus 3.2 mg/dL (2.5-4.5); Potassium 3.9 mmol/L (3.5-5.1); Sodium 133 mmol/L (137-145); Total Bilirubin 1.1 mg/dL (0.2-1.3); Total Protein 7.6 g/dL (6.3-8.2)
[2021-12-07] MEDS: FLUCONAZOLE IN NACL,ISO-OSM 400 MG in SALINE 1 200ML.BAG IVPB SCH (09:15)
[2021-12-07] MEDS: FUROSEMIDE 40 MG TAB PO SCH ×2 (09:15→17:05)
[2021-12-07] MEDS: PANTOPRAZOLE 40 MG/10 ML VIAL IVP SCH ×2 (09:15→19:26)
[2021-12-07] MEDS: HYDROPHILIC CREAM 180 GM TUBE TOPICAL SCH (09:16)
--- NOTE | 2021-12-07 09:16 | P.PN ---
Subjective Progress Note Date: 12/07/21 Principal diagnosis: Gastric ischemia Patient doing well today. Says he has no pain at this time. He is afebrile. Tolerating some of his liquid diet. EBONY with decreased output but remains purulent in appearance. Objective - Vital Signs Vital signs: Vital Signs Temp 98.1 F 12/07/21 05:00 Pulse 88 12/07/21 05:00 Resp 18 12/07/21 05:00 BP 174/73 12/07/21 05:00 Pulse Ox 96 12/07/21 05:00 Intake & Output 12/06/21 12/07/21 12/07/21 18:59 06:59 18:59 Intake Total 298 250 Output Total 1707 1507 10 Balance -1409 -1257 -10 Weight 69.2 kg Intake: Oral 298 250 Output: Drainage 7 7 10 Left Abdomen 5 5 5 Right Abdomen 2 2 5 Urine 1700 1500 Other: Voiding Method Indwelling Catheter Indwelling Catheter ABP, PAP, CO, CI - Last Documented Arterial Blood Pressure 144/72 - Exam Abdomen: Soft, nondistended, wound clean, retention sutures in place, minimal tenderness - Labs CBC & Chem 7: 12/06/21 06:14 12/07/21 07:02 Labs: Abnormal Lab Results - Last 24 Hours (Table) 12/06/21 12/06/21 12/06/21 Range/Units 06:14 12:14 17:55 RBC 2.76 L (4.40-5.60) X 10*6/uL Hgb 7.7 L (13.0-17.0) g/dL Hct 25.0 L (39.6-50.0) % MCHC 30.8 L (32.0-37.0) g/dL RDW 15.9 H (11.5-14.5) % Immature Gran # 0.08 H (0.00-0.04) X 10*3/uL Eosinophils # 0.95 H (0.04-0.35) X 10*3/uL Sodium (137-145) mmol/L BUN (9-20) mg/dL Glucose (74-99) mg/dL POC Glucose (mg/dL) 168 H 142 H (75-99) mg/dL Calcium (8.4-10.2) mg/dL ALT (4-49) U/L Alkaline Phosphatase (38-126) U/L Albumin (3.5-5.0) g/dL 12/07/21 12/07/21 12/07/21 Range/Units 00:02 06:22 06:43 RBC (4.40-5.60) X 10*6/uL Hgb (13.0-17.0) g/dL Hct (39.6-50.0) % MCHC (32.0-37.0) g/dL RDW (11.5-14.5) % Immature Gran # (0.00-0.04) X 10*3/uL Eosinophils # (0.04-0.35) X 10*3/uL Sodium (137-145) mmol/L BUN (9-20) mg/dL Glucose (74-99) mg/dL POC Glucose (mg/dL) 139 H 152 H 156 H (75-99) mg/dL Calcium (8.4-10.2) mg/dL ALT (4-49) U/L Alkaline Phosphatase (38-126) U/L Albumin (3.5-5.0) g/dL 12/07/21 Range/Units 07:02 RBC (4.40-5.60) X 10*6/uL Hgb (13.0-17.0) g/dL Hct (39.6-50.0) % MCHC (32.0-37.0) g/dL RDW (11.5-14.5) % Immature Gran # (0.00-0.04) X 10*3/uL Eosinophils # (0.04-0.35) X 10*3/uL Sodium 133 L (137-145) mmol/L BUN 43 H (9-20) mg/dL Glucose 142 H (74-99) mg/dL POC Glucose (mg/dL) (75-99) mg/dL Calcium 10.5 H (8.4-10.2) mg/dL ALT 58 H (4-49) U/L Alkaline Phosphatase 323 H (38-126) U/L Albumin 2.7 L (3.5-5.0) g/dL Microbiology - Last 24 Hours (Table) 11/22/21 13:20 Fungal Culture - Preliminary Pleural Fluid Assessment and Plan (1) Gastric necrosis Narrative/Plan: Patient continues to gradually improve. Continue diet. Continue TPN. Continue antibiotics per infectious disease. Keep drains in place. Possible transfer to early this week. Anticipate patient will require TPN post discharge. Current Visit: Yes Status: Acute Code(s): K31.89 - OTHER DISEASES OF STOMACH AND DUODENUM SNOMED Code(s): 213958036
[2021-12-07 11:49] LABS: Glucose,Whole Blood 134 mg/dL (75-99)
[2021-12-07] MEDS: [UNRECOGNIZED DRUG - REMARK] IV SCH ×7 (14:39)
[2021-12-07 17:34] LABS: Glucose,Whole Blood 141 mg/dL (75-99)
--- NOTE | 2021-12-07 20:02 | P.PN ---
Subjective From the records, patient could not provide information Patient was admitted for nausea vomiting diarrhea believed to have gastroenteritis. Patient continued to have vomiting and started having abdominal tenderness because of which CT of the abdomen was obtained which showed pneumatosis coli along with some gas in the venous system concern for is chemic bowel. Patient was started on Zosyn. Patient subsequently decompensated patient became hypotensive with BP of 60/40 transferred to ICU patient was given 3 L of boluses of IV fluid NG tube was placed which showed bloody output . Patient in septic shock and receiving norepinephrine at this time. Recent echo showed normal ejection fraction. Patient had CTA of the chest which was negative for pulmonary embolism patient creatinine has worsened and went up to 2.80 today from 1.14 yesterday and this is secondary to acute tubular necrosis from sepsis and septic shock. Patient does have lactic acidosis, patient does have lactic acidosis with lactic acidosis 7.5. Patient will be given 1 L of IV fluids continue pressor support. he is intubated and sedated. 10/31/2021 Patient is started having urine output. Patient underwent a arthrotomy yesterday and found to have ischemia of the lateral portion of the stomach and ischemia of the proximal jejunum patient underwent partial gastrectomy. Patient is presently on that to pressors maximized on norepinephrine, patient is also on vasopressin receiving albumin, IV fluids started having minimal urine output patient was anuric last night. Patient's chloride is highly elevated leading to metabolic acidosis patient also has an anion gap metabolic acidosis from lactic acidosis which appears to be improving at this time patient's overall clinical condition is guarded and the prognosis is poor. Patient Y blood cell count went down in fact patient is neutropenic now. Patient is presently not receiving any nutrition at this time. 11/18/2021 Patient is seen and evaluated in follow up this morning and continues to be in the ICU and was reintubated again this morning. Chest xray shows CHF and pleural effusions as previously noted. No evidence of pneumothorax. Patient continues with an FI02 of 50% and peep is 5. Patient continues on sedation. Patient to continue with IV antibiotics and also antifungals. WBC is elevated. Per nursing staff, hemoglobin is 5.9 and bleeding from NG tube. Patient to receive 2 units of PRBC. 11/19/2021 Patient is seen in follow-up this morning closely monitored with multiple medical consultations following. Patient continues on mechanical vent with an FiO2 of 35% and PEEP is 5. Patient's hemoglobin is 6.7 today and continues with bleeding noted in the NG tube. Patient is to receive another unit of PRBCs and will continue to monitor hemoglobin and bleeding closely. Weaning parameters are continuously being assessed and possible extubation in the next day or so per pulmonary. Brother at the bedside and is agreeable with no CODE STATUS and no further intubations as patient has been also intubated multiple times this admission and continues to deteriorate. Chest x-ray today shows persistent bilateral infiltrates with pleural effusions greater on the left and correlate for pneumonia versus CHF. Kidney functions slightly worsening as well and trending up. WBC continues to be elevated and patient is maintained on IV antibiotics. 11/20/2021 Patient is seen in follow-up today continues to be in the ICU with multiple medical consultations following. Patient was recently extubated yesterday and currently maintained on 6 L nasal cannula. patient continues to have GI bleeding with NG tube noted to have bleeding along with dark maroon stools noted. Hemoglobin is 6.5 today and will be receiving a unit of PRBC. WBC remains elevated and continues on IV antibiotics. Patient is nonverbal but follows simple commands. Continues to be in critical condition. To continue with NG tube and TPN for now. Surgery following as well. Today note 11/21/2021 Patient with past medical history of developmental delay living in a fpc presents to the hospital on 10/29 from his fpc after a fall and suspected syncope. On admission he was AAO 1. Patient has prolonged hospitalization since then for more than 3 weeks. Today is lying in the bed in the ICU, unresponsive and does not follow command and does not answer questions. He is been followed by several consultants including neurologist, cable swager/critical care team and surgery team. He is a status post exploratory laparotomy and surgical resection of part of the stomach and proximal jejunum secondary to ischemic changes and drainage of the adjacent abscess. He has evidence of persistent bilateral pneumonia and kept on Invanz and fluconazole with body fluid culture showing E. coli and Cortney and chest x-ray showing evidence of bilateral infiltrates read also seen on CT of the abdomen, pelvis and chest without contrast: Bilateral pulmonary consolidation and bilateral pleural effusion. He had negative CT of the brain and ejection fraction 60-65%. His receiving TPN and on Lasix 40 mg twice daily. Labs showing leukocytosis of 20, hemoglobin 6.5, sodium 146, creatinine 1.4 with evidence mostly indicating chronic kidney disease stage III. Also history of chronic fever of 100.6 and saturating low 90s on 4 L/m of oxygen. 11/22/2021 Patient remains in the ICU, he is more awake today, he looks at me if I called in by his name however he fails to follow commands, when I asked him if he is in pain he moves his hands little bit on his abdomen, not sure what does not mean exactly. His oxygen requirement slightly worse up to 5 L/m but today he is afebrile. Labs showing slightly improving leukocytosis at 17.8, hemoglobin improved 7.6, sodium 145 and creatinine came down to 1.18. Test x-ray showing decreased left pleural effusion with bilateral consolidation and nodular density in the prior left perihilar region. Patient remains on Invanz, fluconazole, IV Lasix as well as TPN. His wound edges slightly open with gauze soaked but there is no purulent discharge, EBONY drain and place. Rectal tube in place with no blood in it. Zepeda catheter is in place. 11/23/2021 Patient is a status post left thoracocentesis yesterday with a 20 mm of fluid taken out. Today he is more awake and comfortable, he looks at me when I talked to him but he does not follow commands and he does not answer questions. NG tube with green discharge, he has some black stool. EBONY drains with minimal discharge when I examine him, surgical wound is stable. Patient still has PICC line with TPN running. Vitals and labs looked the same, however oxygen is slightly worse with requirement went up from 5-6 L per minute and chest x-ray showing right lower lobe evolving pneumonia however patient remains on the same antibiotics with invanz and fluconazole. Also he is on IV Lasix and TPN 11/24/2021 Patient mentation it's looks the same for the last couple days. No other new complaint. He slightly more tachypneic today. No chest pain or abdominal pain, distal does not follow commands or answer questions. EBONY drain in place and surgery team are following the patient closely. TPN is running and PICC line is in place. Surgical wound looks stable. Rectal tube in place as well. Patient continued with the same treatment of Invanz, fluconazole and Lasix 40 mg IV twice a day 11/25/2021 No much difference clinically from yesterday, he still encephalopathy per neurologist however neurology service signed off as this is looks chronic. Patient NG tube is recommended to be discontinued today and undergo a swallow evaluation to assess nutrition capability Distal getting TPN through his PICC line, surgical wound is healing and EBONY drains are in place with no worsening discharge. He remains on Invanz and fluconazole and IV Lasix 11/26/2021 Patient awake today looks calm, still have rectal tube and Zepeda catheter. He has low-grade temperature of 100.1, he is slightly tachypneic at 21 but he is on room air today. WBCs 13.8, Hemoglobin 8.3, BMP is unremarkable Patient passed a swallow evaluation today and placed on dysphagia II - ground texture diet with nectar thick liquids, straws are okay, and meds whole in puree, 1:1 feed, aspiration precautions. Magic cups were requested for pt . Swallow evaluation recommendation 11/27/2021 Patient awake, severely lethargic, does not follow, most of the time, he would follow some commands occasionally. NG tube was discontinued and started on dysphagia diet yesterday, he is able to tolerate diet with encouragement. Hemodynamically stable. Remains on TPN and PICC line place Surgical wound stable DC'd telemetry Transfer out of the ICU 11/28/2021 Patient is awake similar to the last few days, he does not follow command. Diet is started yesterday and he is tolerating that and been advanced gradually. Surgical wound is healing gradually and surgery team on the case WBC is 11.9, BMP is unremarkable, hemoglobin 8.2 Patient remains on IV Lasix and antibiotics in the form of Invanz and fluconazole. Also his getting TPN Resume the care of the patient today 12/02/2021 Patient mentation looks the same last week when he was taking care of him. He still marginally follow commands area at His surgical wound is healing. Patient still has poor appetite. He is not eating much per staff. He is still on TPN. Surgery team following him closely. Creatinine today is 1.2. No fever in 48 hours Resume the care of the patient on 12/05/2021 Patient awake and follow simple commands, or trying to, for example he trying to move his hands but only small flickering movement happens on both sides. He answers once or twice with one word. He looks awake with good attention span. He is still has poor diet intake, he remains on TPN. Lab and vitals are stable today. Low calcium replaced swallow evaluation: Aspiration and penetration with larger globes with the liquids. Her estrada the examination with small sips of thin liquid and various consistencies was normal without aspiration or penetration Chest x-ray from 12/03: Improved aeriation with some atelectasis vitals 12/06/2021 pt is awake and alert and follows commands , he looks more pleasant that pr evious days. still not talking much, only 1-2 waters He is eating/drinking simple diet. Patient encouraged to eat and drink more and he looks and agreement. Staff at bedside and help him to do so as well. Patient remains on TPN Abdomen that vitals and labs looks stable, WBC 9.3, hemoglobin 7.7, creatinine 0.8. 12/07/2021 Patient eating little bit about 25% of his meals. Other than that he is hem odynamically stable. Vitals stable. Labs reviewed in the looks stable as well. TPN is still going. Objective - Vital Signs Vital signs: Vital Signs Temp 98.1 F 12/07/21 05:00 Pulse 88 12/07/21 05:00 Resp 18 12/07/21 05:00 BP 174/73 12/07/21 05:00 Pulse Ox 96 12/07/21 05:00 Intake & Output 12/06/21 12/07/21 12/07/21 18:59 06:59 18:59 Intake Total 298 250 Output Total 1707 1507 10 Balance -1409 -1257 -10 Weight 69.2 kg Intake: Oral 298 250 Output: Drainage 7 7 10 Left Abdomen 5 5 5 Right Abdomen 2 2 5 Urine 1700 1500 Other: Voiding Method Indwelling Catheter Indwelling Catheter Indwelling Catheter ABP, PAP, CO, CI - Last Documented Arterial Blood Pressure 144/72 - Exam -GENERAL: The patient is awake but does not answer questions,, does not follow commands, does not look in distress. HEENT: Pupils are round and equally reacting to light. EOMI. No scleral icterus. No conjunctival pallor. Normocephalic, atraumatic. No pharyngeal erythema. No thyromegaly. CARDIOVASCULAR: S1 and S2 present. No murmurs, rubs, or gallops. -PULMONARY: Chest is clear to auscultation, no wheezing . Bilateral crepitation and decreased breath sounds -ABDOMEN: Soft, nontender, nondistended, normoactive bowel sounds. No palpable organomegaly. Surgical wound slightly open at the ages with no purulent discharge, EBONY drain in place MUSCULOSKELETAL: No joint swelling or deformity. EXTREMITIES: No cyanosis, clubbing, or pedal edema. NEUROLOGICAL: Gross neurological examination did not reveal any focal deficits. SKIN: No rashes. no petechiae. - Labs CBC & Chem 7: 12/06/21 06:14 12/07/21 07:02 Labs: Abnormal Lab Results - Last 24 Hours (Table) 12/06/21 12/06/21 12/07/21 Range/Units 12:14 17:55 00:02 Sodium (137-145) mmol/L BUN (9-20) mg/dL Glucose (74-99) mg/dL POC Glucose (mg/dL) 168 H 142 H 139 H (75-99) mg/dL Calcium (8.4-10.2) mg/dL ALT (4-49) U/L Alkaline Phosphatase (38-126) U/L Albumin (3.5-5.0) g/dL 12/07/21 12/07/21 12/07/21 Range/Units 06:22 06:43 07:02 Sodium 133 L (137-145) mmol/L BUN 43 H (9-20) mg/dL Glucose 142 H (74-99) mg/dL POC Glucose (mg/dL) 152 H 156 H (75-99) mg/dL Calcium 10.5 H (8.4-10.2) mg/dL ALT 58 H (4-49) U/L Alkaline Phosphatase 323 H (38-126) U/L Albumin 2.7 L (3.5-5.0) g/dL Microbiology - Last 24 Hours (Table) 11/22/21 13:20 Fungal Culture - Preliminary Pleural Fluid Assessment and Plan Assessment: Bilateral aspiration pneumonia Ischemia of the lateral portion of the stomach and proximal jejunum, status post partial gastrectomy on 10/30 Pneumoperitoneum and upper abdominal abscess status post exploratory laparotomy on and small bowel resection on 11/12 Toxic/metabolic encephalopathy Mostly chronic kidney disease, stage III Developmental delay, was on a fpc Plan: This is a pleasant 51 years old male who presents with bowel ischemia status post resection, aspiration pneumonia. Continue with Invanz, fluconazole: Switch IV Lasix and oral dose 40 mg twice a day Fecal management tube was discontinued today Still on dysphagia diet with aspiration precautions TPN management as per surgery team Follow-up recommendation by pulmonary/critical care team, surgery team, and the neurologist Labs and medication were reviewed.. Continue same treatment. Continue with symptomatic treatment. Resume home medication. Monitor lytes and vitals. DVT and GI prophylaxis. Further recommendations as per clinical course of the patient Prognosis is extremely guarded
[2021-12-07 23:40] LABS: Glucose,Whole Blood 147 mg/dL (75-99)
[2021-12-08 07:11] LABS: Glucose,Whole Blood 148 mg/dL (75-99)
[2021-12-08] MEDS: INSULIN ASPART (NovoLOG) 100 UNIT/ML VIAL SQ SCH ×3 (07:13→17:34)
[2021-12-08] MEDS: HYDROPHILIC CREAM 180 GM TUBE TOPICAL SCH (08:15)
[2021-12-08] MEDS: FLUCONAZOLE IN NACL,ISO-OSM 400 MG in SALINE 1 200ML.BAG IVPB SCH (08:15)
[2021-12-08] MEDS: FUROSEMIDE 40 MG TAB PO SCH ×2 (08:15→16:37)
[2021-12-08] MEDS: PANTOPRAZOLE 40 MG/10 ML VIAL IVP SCH ×2 (08:15→19:30)
--- NOTE | 2021-12-08 10:12 | P.PN ---
Subjective Progress Note Date: 12/08/21 Principal diagnosis: Gastric ischemia Patient appears comfortable. T-max 99. Tolerating some of his diet. Drains with small amount of purulence Objective - Vital Signs Vital signs: Vital Signs Temp 98.3 F 12/08/21 04:38 Pulse 99 12/08/21 04:38 Resp 18 12/08/21 04:38 BP 135/88 12/08/21 04:38 Pulse Ox 98 12/08/21 04:38 Intake & Output 12/07/21 12/08/21 12/08/21 18:59 06:59 18:59 Intake Total 1280 Output Total 910 4267 Balance 370 -4267 Intake: IV 1280 Fluconazole in NaCl,Iso- 200 Osm 400 mg In Saline 1 200ml.bag @ 100 mls/hr IVPB DAILY ROBERTO Rx#: [id number] TPN 1080 Output: Drainage 10 17 Left Abdomen 5 5 Right Abdomen 5 12 Urine 900 4100 Uretheral (Zepeda) 900 1300 Stool 150 Other: Voiding Method Indwelling Catheter Indwelling Catheter Indwelling Catheter # Voids 1 ABP, PAP, CO, CI - Last Documented Arterial Blood Pressure 144/72 - Exam Abdomen: Soft, nondistended, wound clean, retention sutures in place, minimal tenderness - Labs CBC & Chem 7: 12/06/21 06:14 12/07/21 07:02 Labs: Abnormal Lab Results - Last 24 Hours (Table) 12/07/21 12/07/21 12/07/21 Range/Units 11:46 17:33 23:39 POC Glucose (mg/dL) 134 H 141 H 147 H (75-99) mg/dL 12/08/21 Range/Units 07:09 POC Glucose (mg/dL) 148 H (75-99) mg/dL Assessment and Plan (1) Gastric necrosis Narrative/Plan: Patient continues to be improving gradually. Continue antibiotics per infectious disease. Consider transferred to ECF on TPN. Current Visit: Yes Status: Acute Code(s): K31.89 - OTHER DISEASES OF STOMACH AND DUODENUM SNOMED Code(s): 829323774
[2021-12-08 11:25] LABS: Glucose,Whole Blood 154 mg/dL (75-99)
[2021-12-08] MEDS: [UNRECOGNIZED DRUG - REMARK] IV SCH ×7 (14:25)
[2021-12-08 17:33] LABS: Glucose,Whole Blood 149 mg/dL (75-99)
--- NOTE | 2021-12-08 19:14 | P.PN ---
Subjective From the records, patient could not provide information Patient was admitted for nausea vomiting diarrhea believed to have gastroenteritis. Patient continued to have vomiting and started having abdominal tenderness because of which CT of the abdomen was obtained which showed pneumatosis coli along with some gas in the venous system concern for is chemic bowel. Patient was started on Zosyn. Patient subsequently decompensated patient became hypotensive with BP of 60/40 transferred to ICU patient was given 3 L of boluses of IV fluid NG tube was placed which showed bloody output . Patient in septic shock and receiving norepinephrine at this time. Recent echo showed normal ejection fraction. Patient had CTA of the chest which was negative for pulmonary embolism patient creatinine has worsened and went up to 2.80 today from 1.14 yesterday and this is secondary to acute tubular necrosis from sepsis and septic shock. Patient does have lactic acidosis, patient does have lactic acidosis with lactic acidosis 7.5. Patient will be given 1 L of IV fluids continue pressor support. he is intubated and sedated. 10/31/2021 Patient is started having urine output. Patient underwent a arthrotomy yesterday and found to have ischemia of the lateral portion of the stomach and ischemia of the proximal jejunum patient underwent partial gastrectomy. Patient is presently on that to pressors maximized on norepinephrine, patient is also on vasopressin receiving albumin, IV fluids started having minimal urine output patient was anuric last night. Patient's chloride is highly elevated leading to metabolic acidosis patient also has an anion gap metabolic acidosis from lactic acidosis which appears to be improving at this time patient's overall clinical condition is guarded and the prognosis is poor. Patient Y blood cell count went down in fact patient is neutropenic now. Patient is presently not receiving any nutrition at this time. 11/18/2021 Patient is seen and evaluated in follow up this morning and continues to be in the ICU and was reintubated again this morning. Chest xray shows CHF and pleural effusions as previously noted. No evidence of pneumothorax. Patient continues with an FI02 of 50% and peep is 5. Patient continues on sedation. Patient to continue with IV antibiotics and also antifungals. WBC is elevated. Per nursing staff, hemoglobin is 5.9 and bleeding from NG tube. Patient to receive 2 units of PRBC. 11/19/2021 Patient is seen in follow-up this morning closely monitored with multiple medical consultations following. Patient continues on mechanical vent with an FiO2 of 35% and PEEP is 5. Patient's hemoglobin is 6.7 today and continues with bleeding noted in the NG tube. Patient is to receive another unit of PRBCs and will continue to monitor hemoglobin and bleeding closely. Weaning parameters are continuously being assessed and possible extubation in the next day or so per pulmonary. Brother at the bedside and is agreeable with no CODE STATUS and no further intubations as patient has been also intubated multiple times this admission and continues to deteriorate. Chest x-ray today shows persistent bilateral infiltrates with pleural effusions greater on the left and correlate for pneumonia versus CHF. Kidney functions slightly worsening as well and trending up. WBC continues to be elevated and patient is maintained on IV antibiotics. 11/20/2021 Patient is seen in follow-up today continues to be in the ICU with multiple medical consultations following. Patient was recently extubated yesterday and currently maintained on 6 L nasal cannula. patient continues to have GI bleeding with NG tube noted to have bleeding along with dark maroon stools noted. Hemoglobin is 6.5 today and will be receiving a unit of PRBC. WBC remains elevated and continues on IV antibiotics. Patient is nonverbal but follows simple commands. Continues to be in critical condition. To continue with NG tube and TPN for now. Surgery following as well. Today note 11/21/2021 Patient with past medical history of developmental delay living in a detention presents to the hospital on 10/29 from his detention after a fall and suspected syncope. On admission he was AAO 1. Patient has prolonged hospitalization since then for more than 3 weeks. Today is lying in the bed in the ICU, unresponsive and does not follow command and does not answer questions. He is been followed by several consultants including neurologist, floriculture teacher/critical care team and surgery team. He is a status post exploratory laparotomy and surgical resection of part of the stomach and proximal jejunum secondary to ischemic changes and drainage of the adjacent abscess. He has evidence of persistent bilateral pneumonia and kept on Invanz and fluconazole with body fluid culture showing E. coli and Cort[place] and chest x-ray showing evidence of bilateral infiltrates read also seen on CT of the abdomen, pelvis and chest without contrast: Bilateral pulmonary consolidation and bilateral pleural effusion. He had negative CT of the brain and ejection fraction 60-65%. His receiving TPN and on Lasix 40 mg twice daily. Labs showing leukocytosis of 20, hemoglobin 6.5, sodium 146, creatinine 1.4 with evidence mostly indicating chronic kidney disease stage III. Also history of chronic fever of 100.6 and saturating low 90s on 4 L/m of oxygen. 11/22/2021 Patient remains in the ICU, he is more awake today, he looks at me if I called in by his name however he fails to follow commands, when I asked him if he is in pain he moves his hands little bit on his abdomen, not sure what does not mean exactly. His oxygen requirement slightly worse up to 5 L/m but today he is afebrile. Labs showing slightly improving leukocytosis at 17.8, hemoglobin improved 7.6, sodium 145 and creatinine came down to 1.18. Test x-ray showing decreased left pleural effusion with bilateral consolidation and nodular density in the prior left perihilar region. Patient remains on Invanz, fluconazole, IV Lasix as well as TPN. His wound edges slightly open with gauze soaked but there is no purulent discharge, EBONY drain and place. Rectal tube in place with no blood in it. Zepeda catheter is in place. 11/23/2021 Patient is a status post left thoracocentesis yesterday with a 20 mm of fluid taken out. Today he is more awake and comfortable, he looks at me when I talked to him but he does not follow commands and he does not answer questions. NG tube with green discharge, he has some black stool. EBONY drains with minimal discharge when I examine him, surgical wound is stable. Patient still has PICC line with TPN running. Vitals and labs looked the same, however oxygen is slightly worse with requirement went up from 5-6 L per minute and chest x-ray showing right lower lobe evolving pneumonia however patient remains on the same antibiotics with invanz and fluconazole. Also he is on IV Lasix and TPN 11/24/2021 Patient mentation it's looks the same for the last couple days. No other new complaint. He slightly more tachypneic today. No chest pain or abdominal pain, distal does not follow commands or answer questions. EBONY drain in place and surgery team are following the patient closely. TPN is running and PICC line is in place. Surgical wound looks stable. Rectal tube in place as well. Patient continued with the same treatment of Invanz, fluconazole and Lasix 40 mg IV twice a day 11/25/2021 No much difference clinically from yesterday, he still encephalopathy per neurologist however neurology service signed off as this is looks chronic. Patient NG tube is recommended to be discontinued today and undergo a swallow evaluation to assess nutrition capability Distal getting TPN through his PICC line, surgical wound is healing and EBONY drains are in place with no worsening discharge. He remains on Invanz and fluconazole and IV Lasix 11/26/2021 Patient awake today looks calm, still have rectal tube and Zepeda catheter. He has low-grade temperature of 100.1, he is slightly tachypneic at 21 but he is on room air today. WBCs 13.8, Hemoglobin 8.3, BMP is unremarkable Patient passed a swallow evaluation today and placed on dysphagia II - ground texture diet with nectar thick liquids, straws are okay, and meds whole in puree, 1:1 feed, aspiration precautions. Magic cups were requested for pt . Swallow evaluation recommendation 11/27/2021 Patient awake, severely lethargic, does not follow, most of the time, he would follow some commands occasionally. NG tube was discontinued and started on dysphagia diet yesterday, he is able to tolerate diet with encouragement. Hemodynamically stable. Remains on TPN and PICC line place Surgical wound stable DC'd telemetry Transfer out of the ICU 11/28/2021 Patient is awake similar to the last few days, he does not follow command. Diet is started yesterday and he is tolerating that and been advanced gradually. Surgical wound is healing gradually and surgery team on the case WBC is 11.9, BMP is unremarkable, hemoglobin 8.2 Patient remains on IV Lasix and antibiotics in the form of Invanz and fluconazole. Also his getting TPN Resume the care of the patient today 12/02/2021 Patient mentation looks the same last week when he was taking care of him. He still marginally follow commands area at His surgical wound is healing. Patient still has poor appetite. He is not eating much per staff. He is still on TPN. Surgery team following him closely. Creatinine today is 1.2. No fever in 48 hours Resume the care of the patient on 12/05/2021 Patient awake and follow simple commands, or trying to, for example he trying to move his hands but only small flickering movement happens on both sides. He answers once or twice with one word. He looks awake with good attention span. He is still has poor diet intake, he remains on TPN. Lab and vitals are stable today. Low calcium replaced swallow evaluation: Aspiration and penetration with larger globes with the liquids. Her estrada the examination with small sips of thin liquid and various consistencies was normal without aspiration or penetration Chest x-ray from 12/03: Improved aeriation with some atelectasis vitals 12/06/2021 pt is awake and alert and follows commands , he looks more pleasant that pr evious days. still not talking much, only 1-2 waters He is eating/drinking simple diet. Patient encouraged to eat and drink more and he looks and agreement. Staff at bedside and help him to do so as well. Patient remains on TPN Abdomen that vitals and labs looks stable, WBC 9.3, hemoglobin 7.7, creatinine 0.8. 12/07/2021 Patient eating little bit about 25% of his meals. Other than that he is hem odynamically stable. Vitals stable. Labs reviewed in the looks stable as well. TPN is still going. 12/08/2021 Patient clinically the same. He still has poor eating habits eating 0-25% of his meals despite several attempts encourage him TPN is still provided for the patient Hemodynamically stable. Check labs tomorrow Objective - Vital Signs Vital signs: Vital Signs Temp 98.3 F 12/08/21 04:38 Pulse 99 12/08/21 04:38 Resp 18 12/08/21 04:38 BP 135/88 12/08/21 04:38 Pulse Ox 98 12/08/21 04:38 Intake & Output 12/07/21 12/08/21 12/08/21 18:59 06:59 18:59 Intake Total 1280 Output Total 910 4267 Balance 370 -4267 Intake: IV 1280 Fluconazole in NaCl,Iso- 200 Osm 400 mg In Saline 1 200ml.bag @ 100 mls/hr IVPB DAILY [facility] Rx#: [id number] TPN 1080 Output: Drainage 10 17 Left Abdomen 5 5 Right Abdomen 5 12 Urine 900 4100 Uretheral (Zepeda) 900 1300 Stool 150 Other: Voiding Method Indwelling Catheter Indwelling Catheter Indwelling Catheter # Voids 1 ABP, PAP, CO, CI - Last Documented Arterial Blood Pressure 144/72 - Exam -GENERAL: The patient is awake but does not answer questions,, does not follow commands, does not look in distress. HEENT: Pupils are round and equally reacting to light. EOMI. No scleral icterus. No conjunctival pallor. Normocephalic, atraumatic. No pharyngeal erythema. No thyromegaly. CARDIOVASCULAR: S1 and S2 present. No murmurs, rubs, or gallops. -PULMONARY: Chest is clear to auscultation, no wheezing . Bilateral crepitation and decreased breath sounds -ABDOMEN: Soft, nontender, nondistended, normoactive bowel sounds. No palpable organomegaly. Surgical wound slightly open at the ages with no purulent discharge, EBONY drain in place MUSCULOSKELETAL: No joint swelling or deformity. EXTREMITIES: No cyanosis, clubbing, or pedal edema. NEUROLOGICAL: Gross neurological examination did not reveal any focal deficits. SKIN: No rashes. no petechiae. - Labs CBC & Chem 7: 12/06/21 06:14 12/07/21 07:02 Labs: Abnormal Lab Results - Last 24 Hours (Table) 12/07/21 12/07/21 12/07/21 Range/Units 11:46 17:33 23:39 POC Glucose (mg/dL) 134 H 141 H 147 H (75-99) mg/dL 12/08/21 Range/Units 07:09 POC Glucose (mg/dL) 148 H (75-99) mg/dL Assessment and Plan Assessment: Bilateral aspiration pneumonia Ischemia of the lateral portion of the stomach and proximal jejunum, status post partial gastrectomy on 10/30 Pneumoperitoneum and upper abdominal abscess status post exploratory laparotomy on and small bowel resection on 11/12 Toxic/metabolic encephalopathy Mostly chronic kidney disease, stage III Developmental delay, was on a detention Plan: This is a pleasant 51 years old male who presents with bowel ischemia status post resection, aspiration pneumonia. Continue with Invanz, fluconazole: Switch IV Lasix and oral dose 40 mg twice a day Fecal management tube was discontinued today Still on dysphagia diet with aspiration precautions TPN management as per surgery team Follow-up recommendation by pulmonary/critical care team, surgery team, and the neurologist Labs and medication were reviewed.. Continue same treatment. Continue with symptomatic treatment. Resume home medication. Monitor lytes and vitals. DVT and GI prophylaxis. Further recommendations as per clinical course of the patient Prognosis is extremely guarded
[2021-12-09] MEDS: INSULIN ASPART (NovoLOG) 100 UNIT/ML VIAL SQ SCH ×5 (00:54→23:59)
[2021-12-09 01:03] LABS: Glucose,Whole Blood 137 mg/dL (75-99)
[2021-12-09 06:35] LABS: Glucose,Whole Blood 137 mg/dL (75-99)
[2021-12-09 07:06] LABS: ALT 53 U/L (4-49); AST 45 U/L (17-59); African American GFR (CKD) >90 (>60 ml/min/1.73 sqM); Albumin 2.7 g/dL (3.5-5.0); Albumin/Globulin Ratio 0.6; Alkaline Phosphatase 293 U/L (38-126); Anion Gap 5 mmol/L; Blood Urea Nitrogen 41 mg/dL (9-20); Calcium 10.9 mg/dL (8.4-10.2); Carbon Dioxide 32 mmol/L (22-30); Chloride 98 mmol/L (98-107); Globulin 4.7 g/dL; Glucose 132 mg/dL (74-99); Magnesium 1.8 mg/dL (1.6-2.3); Non-African American GFR(CKD) >90 (>60 ml/min/1.73 sqM); Phosphorus 3.6 mg/dL (2.5-4.5); Potassium 3.8 mmol/L (3.5-5.1); Sodium 135 mmol/L (137-145); Total Bilirubin 1.1 mg/dL (0.2-1.3); Total Protein 7.4 g/dL (6.3-8.2)
[2021-12-09] MEDS: FLUCONAZOLE IN NACL,ISO-OSM 400 MG in SALINE 1 200ML.BAG IVPB SCH (09:01)
[2021-12-09] MEDS: FUROSEMIDE 40 MG TAB PO SCH ×2 (09:01→15:32)
[2021-12-09] MEDS: PANTOPRAZOLE 40 MG/10 ML VIAL IVP SCH ×2 (09:01→21:22)
[2021-12-09] MEDS: HYDROPHILIC CREAM 180 GM TUBE TOPICAL SCH (09:02)
[2021-12-09] MEDS: MAGNESIUM SULFATE-D5W PMX 1 GM in DEXTROSE/WATER 1 100ML.BAG IVPB SCH ×2 (09:51→11:37)
[2021-12-09 11:42] LABS: Glucose,Whole Blood 144 mg/dL (75-99)
--- NOTE | 2021-12-09 11:44 | P.PN ---
Subjective Progress Note Date: 12/09/21 CHIEF COMPLAINT: Abdominal pain HISTORY OF PRESENT ILLNES: Patient is lying in bed comfortably. Per nursing staff patient is still having poor oral intake. He is only eating about 15-25% of his meals. He does have TPN. He is currently on a chopped diet. Patient is on regular medical floor. Afebrile. Sodium 135 potassium 3.8 creatinine 0.95 PHYSICAL EXAM: VITAL SIGNS: Reviewed. GENERAL: Patient is more awake and responsive. He does say a few words. HEENT: Moist buccal mucosa. Head is atraumatic, normocephalic. ABDOMEN: Soft. Nondistended. EBONY drains the drain on the left with purulent output about 20 mL. The drain on the right minimal serous drainage. Incisional dressing clean dry and intact and healing nicely ASSESSMENT: 1. Pneumoperitoneum, suspected gastric leak and section of proximal jejunum with ischemic changes status post exploratory laparotomy, drainage of upper a bdominal abscess, lysis of adhesions and small bowel resection on 11/12/21 2. Ischemia of the lateral portion of the stomach and mild ischemia of the proximal jejunum status post exploratory laparotomy and partial gastrectomy on 10/30/21 3. Septic shock 4. Postoperative ileus resolved 5. Thrombocytopenia resolved 6. Possible aspiration pneumonia 7. Anemia 8. Left Pleural effusion status post thoracentesis PLAN: -Continue chopped diet. Patient requires assistance with meals -Continue supportive care -Continue local wound care -Continue to monitor EBONY drain output -Continue TPN for nutrition support -CODE STATUS DO NOT RESUSCITATE/DO NOT INTUBATE Physician Crew Director note has been reviewed by physician. Signing provider agrees with the documented findings, assessment, and plan of care. I have personally seen and examined the patient, reviewed the PHARMACY SALES ASSISTANT /PAs history, exam and MDM and agree with the assessment and plan as written. Based on total visit time, I have performed more than 50% of the visit. As above: Patient continues to do well. Still not eating a lot however patient does remain on TPN. Discussed with patient's brother and nursing staff. Will wean TPN at this time. Anticipate discharge back to his assisted living with the hope that he can maintain his level of nutrition there. Antibiotics have been discontinued and patient remains afebrile. Keep drains in place. Objective - Vital Signs Vital signs: Vital Signs Temp 98.6 F 12/09/21 05:00 Pulse 90 12/09/21 05:00 Resp 18 12/09/21 05:00 BP 130/80 12/09/21 05:00 Pulse Ox 97 12/09/21 05:00 Intake & Output 12/08/21 12/09/21 12/09/21 18:59 06:59 18:59 Intake Total 1280 100 Output Total 1400 20 Balance -120 80 Weight 69.2 kg Intake: IV 1280 Fluconazole in NaCl,Iso- 200 Osm 400 mg In Saline 1 200ml.bag @ 100 mls/hr IVPB DAILY [facility] Rx#: [id number] TPN 1080 Oral 100 Output: Drainage 20 Left Abdomen 20 Urine 1400 Uretheral (Zepeda) 1400 Other: Voiding Method Indwelling Catheter Indwelling Catheter ABP, PAP, CO, CI - Last Documented Arterial Blood Pressure 144/72 - Labs CBC & Chem 7: 12/06/21 06:14 12/09/21 06:03 Labs: Abnormal Lab Results - Last 24 Hours (Table) 12/08/21 12/09/21 12/09/21 Range/Units 17:32 00:50 06:03 Sodium 135 L (137-145) mmol/L Carbon Dioxide 32 H (22-30) mmol/L BUN 41 H (9-20) mg/dL Glucose 132 H (74-99) mg/dL POC Glucose (mg/dL) 149 H 137 H (75-99) mg/dL Calcium 10.9 H (8.4-10.2) mg/dL ALT 53 H (4-49) U/L Alkaline Phosphatase 293 H (38-126) U/L Albumin 2.7 L (3.5-5.0) g/dL 12/09/21 Range/Units 06:23 Sodium (137-145) mmol/L Carbon Dioxide (22-30) mmol/L BUN (9-20) mg/dL Glucose (74-99) mg/dL POC Glucose (mg/dL) 137 H (75-99) mg/dL Calcium (8.4-10.2) mg/dL ALT (4-49) U/L Alkaline Phosphatase (38-126) U/L Albumin (3.5-5.0) g/dL Microbiology - Last 24 Hours (Table) 11/22/21 13:20 Acid Fast Bacilli Smear - Final Pleural Fluid Acid Fast Bacilli Culture - Preliminary 11/11/21 12:30 Acid Fast Bacilli Smear - Final Bronchial Washings - Random Acid Fast Bacilli Culture - Preliminary 11/11/21 12:00 Acid Fast Bacilli Smear - Final Bronchial Washings - Random Acid Fast Bacilli Culture - Preliminary
[2021-12-09] MEDS ORDERED: MAGNESIUM SULFATE-D5W PMX 1 GM in DEXTROSE/WATER 1 100ML.BAG IVPB ONE (14:55)
[2021-12-09] MEDS ORDERED: ACETAMINOPHEN TAB 500 MG TAB PO PRN (15:06)
--- NOTE | 2021-12-09 15:16 | P.PN ---
Subjective Progress Note Date: 12/09/21 Patient evaluated today resting in bed after working with PT. He is slightly tachypneic and does state he is having some pain, unable to tell where and quantify. Patient was switched to PO lasix yesterday. Fecal management system has been removed, continues with indwelling catheter. Abdominal dressing in t act. Chest xray today showing improvement in aeration with some residual atelectasis. Reevluation today by speech is showing continued difficulty with thin liquids. Did well with nectar thick and diet has been upgraded today to dysphagia 3, chopped with nectar thick liquids, with free water guidance. Recommended for modified barium study tomorrow. Continues on TPN. Labs today sodium 134, potassium 5.3, creating 1.11. Blood sugars in the 150s. Liver enzymes elevated slightly. Remains afebrile, heart rate 97, blood pressure 139/81, 98% on room air. Recommended to give some pain medication and see if his breathing slows. Has been on IV invanz since november 17. 12/04/2021 Patient evaluated today with his brothers at bedside who are POA. All questions were answered. Patient today had some faint rales in the bases, he received a one time dose of IV lasix this morning. Will continue with oral lasix tomorrow. He is alert and talking, able to communicate needs. Is requesting water to drink. Bowel movements have slowed. Continues with indwelling catheter. Retention sutures in place to abdomen incision, there is some blood drainage coming from sutures. Hgb today 7.6. Sodium today 135, potassium 5.0. BUN 59, creat 1.08. Blood glucose in the 150-160s. Liver enzymes remain elevated. He has remained afebrile, blood pressure 120/70s. 99% on room air. No longer tachypneic. Patient has been working with PT able to sit at bedside and stand for 10 seconds, requiring maximum assistance. 12/09/2021 Resuming care today. Patient evaluated with his 2 brothers at the bedside who are POA. Today patient denies pain, however, when moving in the bed he does grimace and afterwards states he is having some pain. Unsure when last BM was. Last documented on 12/05 for 2 BMs. Does have good bowel sounds throughout. Abdominal dressing intact. Bilateral EBONY drains in place, will DC with drains and retention sutures. Minimal output, with milky drainage. Labs today showing sodi um 135, potassium 3.8, mag 1.8. blood glucose in the 180s. Liver enzymes minimally improved. Continues with poor oral intake, did not each breakfast. There is some white coating on his tongue will add nystatin swish and swallow. Continue on colace. Ordered IS and tylenol for pain management. Can discontinue rivas for a voiding trial today. Patient is asking to go home today. Review of Systems Constitutional: Denied any fatigue denied any fever. Cardio vascular: denied any chest pain, palpitations Gastrointestinal: denied any nausea, vomiting, diarrhea, unsure when last BM was, passing gas. Reports mild abdominal pain. Pulmonary: Denied any shortness of breath cough Neurologic denied any new focal deficits All inpatient medications were reviewed and appropriate changes in these medicat ions as dictated in the interval history and assessment and plan. PHYSICAL EXAMINATION: GENERAL: The patient is alert and oriented x1-2. Well developed, well nourished. Has lost some weight. HEENT: Pupils are round and equally reacting to light. EOMI. No scleral icterus. No conjunctival pallor. Normocephalic, atraumatic. No pharyngeal erythema. No thyromegaly. CARDIOVASCULAR: S1 and S2 present. No murmurs, rubs, or gallops. PULMONARY: No crackles, wheezing noted. Diminished lung sounds. ABDOMEN: Soft, tender, nondistended, normoactive bowel sounds. No palpable organomegaly. Post surgical abdomen with dressing intact, midline incision, retentin suture x 2 and bilateral EBONY drain with milky drainage. MUSCULOSKELETAL: No joint swelling or deformity. EXTREMITIES: No cyanosis, clubbing, or pedal edema. NEUROLOGICAL: Gross neurological examination did not reveal any focal deficits. Baseline mentation developmentally delayed. Pt is slow to respond. SKIN: No rashes. Assessment and plan Assessment Bilateral aspiration pneumonia Ischemia of the lateral portion of the stomach and proximal jejunum, status post partial gastrectomy on 10/30 Pneumoperitoneum and upper abdominal abscess status post exploratory laparotomy, lysis of adhesions, and small bowel resection on 11/12 Leukocytosis secondary to above, resolved Toxic/metabolic encephalopathy improving Oral thrush Stage 2 sacral decub Hyperkalemia resolved Elevated liver enzymes, trending down Mostly chronic kidney disease, stage III Diabetes mellitus type 2 Developmental delay, was in a senior care GI Prophylaxis DVT Prophylaxis Full Code Plan Patient is being followed closely by surgery Continues on oral lasix 40 BID Continues on TPN, weaning Continue with local wound care IV antibiotics discontinued completed course Mycostatin added today, oral care twice a day Flomax Discontinue indwelling catheter Voiding Trial PT/OT Repeat labs in AM Prognosis Guarded The impression and plan of care has been dictated by Charu Thrasher, Nurse Practitioner as directed. Dr. Christina MD I have performed a history and physical examination and medical decision making of this patient, discussed the same with the dictator, and agree with the dictators assessment and plan as written, documented as a scribe. Based on total visit time, I have performed more than 50% of this visit. Objective - Vital Signs Vital signs: Vital Signs Temp 98.1 F 12/09/21 11:49 Pulse 88 12/09/21 11:49 Resp 16 12/09/21 11:49 BP 129/78 12/09/21 11:49 Pulse Ox 98 12/09/21 11:49 Intake & Output 12/08/21 12/09/21 12/09/21 18:59 06:59 18:59 Intake Total 1280 100 Output Total 1400 20 Balance -120 80 Weight 69.2 kg Intake: IV 1280 Fluconazole in NaCl,Iso- 200 Osm 400 mg In Saline 1 200ml.bag @ 100 mls/hr IVPB DAILY [facility] Rx#: [id number] TPN 1080 Oral 100 Output: Drainage 20 Left Abdomen 20 Urine 1400 Uretheral (Rivas) 1400 Other: Voiding Method Indwelling Catheter Indwelling Catheter ABP, PAP, CO, CI - Last Documented Arterial Blood Pressure 144/72 - Labs CBC & Chem 7: 12/06/21 06:14 12/09/21 06:03 Labs: Abnormal Lab Results - Last 24 Hours (Table) 12/08/21 12/09/21 12/09/21 Range/Units 17:32 00:50 06:03 Sodium 135 L (137-145) mmol/L Carbon Dioxide 32 H (22-30) mmol/L BUN 41 H (9-20) mg/dL Glucose 132 H (74-99) mg/dL POC Glucose (mg/dL) 149 H 137 H (75-99) mg/dL Calcium 10.9 H (8.4-10.2) mg/dL ALT 53 H (4-49) U/L Alkaline Phosphatase 293 H (38-126) U/L Albumin 2.7 L (3.5-5.0) g/dL 12/09/21 12/09/21 Range/Units 06:23 11:41 Sodium (137-145) mmol/L Carbon Dioxide (22-30) mmol/L BUN (9-20) mg/dL Glucose (74-99) mg/dL POC Glucose (mg/dL) 137 H 144 H (75-99) mg/dL Calcium (8.4-10.2) mg/dL ALT (4-49) U/L Alkaline Phosphatase (38-126) U/L Albumin (3.5-5.0) g/dL Microbiology - Last 24 Hours (Table) 11/22/21 13:20 Acid Fast Bacilli Smear - Final Pleural Fluid Acid Fast Bacilli Culture - Preliminary 11/11/21 12:30 Acid Fast Bacilli Smear - Final Bronchial Washings - Random Acid Fast Bacilli Culture - Preliminary 11/11/21 12:00 Acid Fast Bacilli Smear - Final Bronchial Washings - Random Acid Fast Bacilli Culture - Preliminary Assessment and Plan Time with Patient: Less than 30
[2021-12-09] MEDS: [UNRECOGNIZED DRUG - REMARK] IV SCH ×7 (15:32)
[2021-12-09] MEDS: POTASSIUM CHLORIDE ER 20 MEQ TAB.ER PO STA ×2 (15:32→15:52)
[2021-12-09] MEDS: POTASSIUM CHLORIDE 10 MEQ in WATER FOR INJECTION 1 100ML.BAG IVPB SCH ×2 (16:22→18:00)
[2021-12-09] MEDS: NYSTATIN 100,000 UNIT/ML SUSP 500,000 UNIT/5 ML CUP PO SCH ×3 (16:23→21:22)
[2021-12-09 17:14] LABS: Glucose,Whole Blood 108 mg/dL (75-99)
[2021-12-09] MEDS: TAMSULOSIN 0.4 MG CAP.ER.24H PO SCH (18:00)
[2021-12-09] MEDS: FAT EMULSION 20% 500 ML in EMPTY BAG 1 BAG IV SCH (22:05)
[2021-12-09 23:54] LABS: Glucose,Whole Blood 120 mg/dL (75-99)
[2021-12-10 06:02] LABS: Glucose,Whole Blood 128 mg/dL (75-99)
[2021-12-10] MEDS: INSULIN ASPART (NovoLOG) 100 UNIT/ML VIAL SQ SCH ×3 (06:08→18:57)
[2021-12-10 07:08] LABS: ALT 53 U/L (4-49); AST 48 U/L (17-59); African American GFR (CKD) >90 (>60 ml/min/1.73 sqM); Albumin 2.8 g/dL (3.5-5.0); Albumin/Globulin Ratio 0.6; Alkaline Phosphatase 308 U/L (38-126); Anion Gap 8 mmol/L; Blood Urea Nitrogen 39 mg/dL (9-20); Calcium 10.9 mg/dL (8.4-10.2); Carbon Dioxide 30 mmol/L (22-30); Chloride 96 mmol/L (98-107); Globulin 4.8 g/dL; Glucose 115 mg/dL (74-99); Non-African American GFR(CKD) >90 (>60 ml/min/1.73 sqM); Phosphorus 4.3 mg/dL (2.5-4.5); Potassium 3.7 mmol/L (3.5-5.1); Sodium 134 mmol/L (137-145); Total Bilirubin 1.1 mg/dL (0.2-1.3); Total Protein 7.6 g/dL (6.3-8.2)
[2021-12-10 08:02] LABS: Anisocytosis Slight; Basophils # (A) 0.1 k/uL (0-0.2); Basophils % (A) 1 %; Eosinophils # (A) 0.7 k/uL (0-0.7); Eosinophils % (A) 8 %; HCT 28.1 % (39.0-53.0); HGB 9.2 gm/dL (13.0-17.5); Hypochromasia Slight; Lymphocytes % (A) 11 %; MCH 29.9 pg (25.0-35.0); MCHC 32.9 g/dL (31.0-37.0); MCV 90.9 fL (80.0-100.0); Mean Platelet Volume 7.7; Monocytes # (A) 0.5 k/uL (0-1.0); Monocytes % (A) 5 %; Neutrophils # (A) 6.4 k/uL (1.3-7.7); Neutrophils % (A) 73 %; Platelet Count 353 k/uL (150-450); RBC 3.09 m/uL (4.30-5.90); RDW 16.2 % (11.5-15.5); WBC 8.8 k/uL (3.8-10.6)
[2021-12-10] MEDS: FUROSEMIDE 40 MG TAB PO SCH ×2 (09:44→18:57)
[2021-12-10] MEDS: NYSTATIN 100,000 UNIT/ML SUSP 500,000 UNIT/5 ML CUP PO SCH ×4 (09:45→19:17)
[2021-12-10] MEDS: HYDROPHILIC CREAM 180 GM TUBE TOPICAL SCH (09:45)
[2021-12-10] MEDS: PANTOPRAZOLE 40 MG/10 ML VIAL IVP SCH ×2 (09:46→19:17)
[2021-12-10] MEDS: MEGESTROL 40 MG TAB PO SCH (09:58)
[2021-12-10 11:35] LABS: Glucose,Whole Blood 160 mg/dL (75-99)
--- NOTE | 2021-12-10 12:33 | P.PN ---
Subjective Progress Note Date: 12/10/21 CHIEF COMPLAINT: Abdominal pain HISTORY OF PRESENT ILLNES: Patient is lying in bed comfortably. Patient states "I go home today." Patient still having minimal oral intake. He is only eating about 15-25% of his meals. TPN is being weaned off. He is currently on a chopped diet. Patient is on regular medical floor. Afebrile. WBC 8.8 hemoglobin 9.2 platelets 353 sodium 134 creatinine 0.96 PHYSICAL EXAM: VITAL SIGNS: Reviewed. GENERAL: Patient is more awake and responsive. He does say a few words. HEENT: Moist buccal mucosa. Head is atraumatic, normocephalic. ABDOMEN: Soft. Nondistended. EBONY drains the drain on the left with purulent output. The drain on the right minimal serous drainage. Incisional dressing clean dry and intact and healing nicely ASSESSMENT: 1. Pneumoperitoneum, suspected gastric leak and section of proximal jejunum with ischemic changes status post exploratory laparotomy, drainage of upper abdominal abscess, lysis of adhesions and small bowel resection on 11/12/21 2. Ischemia of the lateral portion of the stomach and mild ischemia of the proximal jejunum status post exploratory laparotomy and partial gastrectomy on 10/30/21 3. Septic shock 4. Postoperative ileus resolved 5. Thrombocytopenia resolved 6. Possible aspiration pneumonia 7. Anemia 8. Left Pleural effusion status post thoracentesis PLAN: -Discussed with medicine nurse practitioner. They're planning discharge back to [facility] tomorrow -Continue chopped diet. Patient requires assistance with meals -Continue supportive care -Continue local wound care -Continue to monitor EBONY drain output -Continue to wean TPN. -Patient will be discharged with EBONY drains in place and retention sutures -CODE STATUS DO NOT RESUSCITATE/DO NOT INTUBATE Physician Skidder Driver note has been reviewed by physician. Signing provider agrees with the documented findings, assessment, and plan of care. I have personally seen and examined the patient, reviewed the SMELTING ENGINEER /PAs history, exam and MDM and agree with the assessment and plan as written. Based on total visit time, I have performed more than 50% of the visit. As above: Patient continues to say he wants to go home. He is still not eating a large volume of food. No pain. TPN is being weaned off at this time. EBONY drains with decreasing output. T-max 99. White blood cell count normal. Continue discharge planning. Objective - Vital Signs Vital signs: Vital Signs Temp 98.7 F 12/10/21 12:03 Pulse 94 12/10/21 12:03 Resp 16 12/10/21 12:03 BP 143/86 12/10/21 12:03 Pulse Ox 98 12/10/21 12:03 Intake & Output 12/09/21 12/10/21 12/10/21 18:59 06:59 18:59 Intake Total 240 Output Total 1700 Balance -1700 240 Weight 69.2 kg Intake: IV 240 Sodium Chloride 0.9% 1, 240 000 ml @ 20 mls/hr IV . Q24H [facility] Rx#:[id number] Output: Drainage 0 Left Abdomen 0 Right Abdomen 0 Urine 1700 Other: Voiding Method Diaper Incontinent # Voids 4 ABP, PAP, CO, CI - Last Documented Arterial Blood Pressure 144/72 - Labs CBC & Chem 7: 12/10/21 06:07 12/10/21 06:07 Labs: Abnormal Lab Results - Last 24 Hours (Table) 12/09/21 12/09/21 12/10/21 Range/Units 17:12 23:52 06:01 RBC (4.30-5.90) m/uL Hgb (13.0-17.5) gm/dL Hct (39.0-53.0) % RDW (11.5-15.5) % Sodium (137-145) mmol/L Chloride (98-107) mmol/L BUN (9-20) mg/dL Glucose (74-99) mg/dL POC Glucose (mg/dL) 108 H 120 H 128 H (75-99) mg/dL Calcium (8.4-10.2) mg/dL ALT (4-49) U/L Alkaline Phosphatase (38-126) U/L Albumin (3.5-5.0) g/dL 12/10/21 12/10/21 12/10/21 Range/Units 06:07 06:07 11:23 RBC 3.09 L (4.30-5.90) m/uL Hgb 9.2 L (13.0-17.5) gm/dL Hct 28.1 L (39.0-53.0) % RDW 16.2 H (11.5-15.5) % Sodium 134 L (137-145) mmol/L Chloride 96 L (98-107) mmol/L BUN 39 H (9-20) mg/dL Glucose 115 H (74-99) mg/dL POC Glucose (mg/dL) 160 H (75-99) mg/dL Calcium 10.9 H (8.4-10.2) mg/dL ALT 53 H (4-49) U/L Alkaline Phosphatase 308 H (38-126) U/L Albumin 2.8 L (3.5-5.0) g/dL Microbiology - Last 24 Hours (Table) 11/22/21 13:20 Acid Fast Bacilli Smear - Final Pleural Fluid Acid Fast Bacilli Culture - Preliminary 11/11/21 12:30 Acid Fast Bacilli Smear - Final Bronchial Washings - Random Acid Fast Bacilli Culture - Preliminary 11/11/21 12:00 Acid Fast Bacilli Smear - Final Bronchial Washings - Random Acid Fast Bacilli Culture - Preliminary
--- NOTE | 2021-12-10 13:57 | P.PN ---
Subjective Progress Note Date: 12/10/21 Patient evaluated today resting in bed after working with PT. He is slightly tachypneic and does state he is having some pain, unable to tell where and quantify. Patient was switched to PO lasix yesterday. Fecal management system has been removed, continues with indwelling catheter. Abdominal dressing in t act. Chest xray today showing improvement in aeration with some residual atelectasis. Reevluation today by speech is showing continued difficulty with thin liquids. Did well with nectar thick and diet has been upgraded today to dysphagia 3, chopped with nectar thick liquids, with free water guidance. Recommended for modified barium study tomorrow. Continues on TPN. Labs today sodium 134, potassium 5.3, creating 1.11. Blood sugars in the 150s. Liver enzymes elevated slightly. Remains afebrile, heart rate 97, blood pressure 139/81, 98% on room air. Recommended to give some pain medication and see if his breathing slows. Has been on IV invanz since november 17. 12/04/2021 Patient evaluated today with his brothers at bedside who are POA. All questions were answered. Patient today had some faint rales in the bases, he received a one time dose of IV lasix this morning. Will continue with oral lasix tomorrow. He is alert and talking, able to communicate needs. Is requesting water to drink. Bowel movements have slowed. Continues with indwelling catheter. Retention sutures in place to abdomen incision, there is some blood drainage coming from sutures. Hgb today 7.6. Sodium today 135, potassium 5.0. BUN 59, creat 1.08. Blood glucose in the 150-160s. Liver enzymes remain elevated. He has remained afebrile, blood pressure 120/70s. 99% on room air. No longer tachypneic. Patient has been working with PT able to sit at bedside and stand for 10 seconds, requiring maximum assistance. 12/09/2021 Resuming care today. Patient evaluated with his 2 brothers at the bedside who are POA. Today patient denies pain, however, when moving in the bed he does grimace and afterwards states he is having some pain. Unsure when last BM was. Last documented on 12/05 for 2 BMs. Does have good bowel sounds throughout. Abdominal dressing intact. Bilateral EBONY drains in place, will DC with drains and retention sutures. Minimal output, with milky drainage. Labs today showing sodi um 135, potassium 3.8, mag 1.8. blood glucose in the 180s. Liver enzymes minimally improved. Continues with poor oral intake, did not each breakfast. There is some white coating on his tongue will add nystatin swish and swallow. Continue on colace. Ordered IS and tylenol for pain management. Can discontinue rivas for a voiding trial today. Patient is asking to go home today. 12/10/2021 Patient resting in bed this morning, appears to be comfortable, and in good spirits. When asked he as able to roll himself to the side and hold himself in the position. Lungs are clear today. Started megace yesterday for appetite. Patient states he did not eat breakfast, when asked what he likes for breakfast he did request "frosted flakes" and "pepsi." TPN was weaned toady and will continue to run at 45 ml/hr until tomorrow morning with anticipated discharge tomorrow. He denies nausea, there has been no vomiting. Small smear bowel movement today. Abdomen is soft, bowel sounds present. Indwelling catheter was discontinued yesterday, and has been incontinent but no urinary retention. We can continue flomax for now and re-evaluate, he may not need long distance operator. Patient was evaluated back on November 21 by wound care for ulceration of the penis, on exam today, appears to be healing well with traid cream. There is a large sacral decubitus ulcer, requested re-eval by wound care for this prior to discharge. Continue to turn patient Q2 and continue with sacrum optifoam. Labs today show a hgb of 9.2 which has improved, there is no white count. Sodium stable at 134, potassium 3.7, blood sugar in the 150s, magnesium 2.0. Liver enzymes stable. Total protein 2.8. Review of Systems Constitutional: Denied any fatigue denied any fever. Cardio vascular: denied any chest pain, palpitations Gastrointestinal: denied any nausea, vomiting, diarrhea. Pulmonary: Denied any shortness of breath cough Neurologic: denied any new focal deficits All inpatient medications were reviewed and appropriate changes in these medications as dictated in the interval history and assessment and plan. PHYSICAL EXAMINATION: GENERAL: The patient is alert and oriented x1-2. Well developed, well nourished. Has lost some weight. HEENT: Pupils are round and equally reacting to light. EOMI. No scleral icterus. No conjunctival pallor. Normocephalic, atraumatic. No pharyngeal erythema. No thyromegaly. CARDIOVASCULAR: S1 and S2 present. No murmurs, rubs, or gallops. PULMONARY: No crackles, wheezing noted. Diminished lung sounds. ABDOMEN: Soft, tender, nondistended, normoactive bowel sounds. No palpable organomegaly. Post surgical abdomen with dressing intact, midline incision, retentin suture x 2 and bilateral EBONY drain with minimal milky drainage. MUSCULOSKELETAL: No joint swelling or deformity. EXTREMITIES: No cyanosis, clubbing, or pedal edema. NEUROLOGICAL: Gross neurological examination did not reveal any focal deficits. Baseline mentation developmentally delayed. Pt is slow to respond. SKIN: Sacral decub present with maceration of wound bed. No drainage noted. Assessment and plan Assessment Pneumoperitoneum and upper abdominal abscess status post exploratory laparotomy, lysis of adhesions, and small bowel resection on 11/12 Ischemia of the lateral portion of the stomach and proximal jejunum, status post partial gastrectomy on 10/30 Bilateral aspiration pneumonia, resolved, no white count, lungs are clear, continues off antibiotics. Leukocytosis secondary to above, resolved Toxic/metabolic encephalopathy improving Oral thrush Stage 2 sacral decub Hyperkalemia resolved Elevated liver enzymes, stable Mostly chronic kidney disease, stage III Anemia, normocytic, most likely chronic exacerbated by acute blood loss secondary to septic shock on admission, stable and improving, current hemoglobin today 9.2 with no evidence for acute bleeding. Patient has received a total of 10 units of blood this admission. Last transfusion on November 21. Diabetes mellitus type 2 Developmental delay, was in a residential GI Prophylaxis DVT Prophylaxis Full Code Plan Patient is being followed closely by surgery Continues on oral lasix 40 BID Continues on TPN, weaning Reconsult wound care for evaluation of sacral decub Continue with local wound care IV antibiotics discontinued completed course Mycostatin added today, oral care twice a day Continue on flomax Encourage Incentive Spirometry Turn patient Q2 hours for pressure reduction off sacrum PT/OT Prognosis Guarded Cleared by surgery for discharge, tentative discharge to residential tomorrow The impression and plan of care has been dictated by Charu Thrasher, Nurse Practitioner as directed. Dr. Christina MD I have performed a history and physical examination and medical decision making of this patient, discussed the same with the dictator, and agree with the dic tators assessment and plan as written, documented as a scribe. Based on total visit time, I have performed more than 50% of this visit. Objective - Vital Signs Vital signs: Vital Signs Temp 98.7 F 12/10/21 12:03 Pulse 94 12/10/21 12:03 Resp 16 12/10/21 12:03 BP 143/86 12/10/21 12:03 Pulse Ox 98 12/10/21 12:03 Intake & Output 12/09/21 12/10/21 12/10/21 18:59 06:59 18:59 Intake Total 240 Output Total 1700 Balance -1700 240 Weight 69.2 kg Intake: IV 240 Sodium Chloride 0.9% 1, 240 000 ml @ 20 mls/hr IV . Q24H [facility] Rx#:[id number] Output: Drainage 0 Left Abdomen 0 Right Abdomen 0 Urine 1700 Other: Voiding Method Diaper Incontinent # Voids 4 ABP, PAP, CO, CI - Last Documented Arterial Blood Pressure 144/72 - Labs CBC & Chem 7: 12/10/21 06:07 12/10/21 06:07 Labs: Abnormal Lab Results - Last 24 Hours (Table) 12/09/21 12/09/21 12/10/21 Range/Units 17:12 23:52 06:01 RBC (4.30-5.90) m/uL Hgb (13.0-17.5) gm/dL Hct (39.0-53.0) % RDW (11.5-15.5) % Sodium (137-145) mmol/L Chloride (98-107) mmol/L BUN (9-20) mg/dL Glucose (74-99) mg/dL POC Glucose (mg/dL) 108 H 120 H 128 H (75-99) mg/dL Calcium (8.4-10.2) mg/dL ALT (4-49) U/L Alkaline Phosphatase (38-126) U/L Albumin (3.5-5.0) g/dL 12/10/21 12/10/21 12/10/21 Range/Units 06:07 06:07 11:23 RBC 3.09 L (4.30-5.90) m/uL Hgb 9.2 L (13.0-17.5) gm/dL Hct 28.1 L (39.0-53.0) % RDW 16.2 H (11.5-15.5) % Sodium 134 L (137-145) mmol/L Chloride 96 L (98-107) mmol/L BUN 39 H (9-20) mg/dL Glucose 115 H (74-99) mg/dL POC Glucose (mg/dL) 160 H (75-99) mg/dL Calcium 10.9 H (8.4-10.2) mg/dL ALT 53 H (4-49) U/L Alkaline Phosphatase 308 H (38-126) U/L Albumin 2.8 L (3.5-5.0) g/dL Microbiology - Last 24 Hours (Table) 11/22/21 13:20 Acid Fast Bacilli Smear - Final Pleural Fluid Acid Fast Bacilli Culture - Preliminary 11/11/21 12:30 Acid Fast Bacilli Smear - Final Bronchial Washings - Random Acid Fast Bacilli Culture - Preliminary 11/11/21 12:00 Acid Fast Bacilli Smear - Final Bronchial Washings - Random Acid Fast Bacilli Culture - Preliminary Assessment and Plan Time with Patient: Greater than 30
[2021-12-10 17:13] LABS: Glucose,Whole Blood 125 mg/dL (75-99)
[2021-12-10] MEDS: TAMSULOSIN 0.4 MG CAP.ER.24H PO SCH (19:17)
[2021-12-11 00:32] LABS: Glucose,Whole Blood 120 mg/dL (75-99)
[2021-12-11] MEDS: INSULIN ASPART (NovoLOG) 100 UNIT/ML VIAL SQ SCH ×3 (01:11→10:59)
[2021-12-11 05:47] LABS: Glucose,Whole Blood 123 mg/dL (75-99)
[2021-12-11 06:59] LABS: ALT 48 U/L (4-49); AST 42 U/L (17-59); African American GFR (CKD) >90 (>60 ml/min/1.73 sqM); Albumin 2.8 g/dL (3.5-5.0); Albumin/Globulin Ratio 0.6; Alkaline Phosphatase 289 U/L (38-126); Anion Gap 6 mmol/L; Blood Urea Nitrogen 36 mg/dL (9-20); Calcium 10.8 mg/dL (8.4-10.2); Carbon Dioxide 31 mmol/L (22-30); Chloride 99 mmol/L (98-107); Globulin 4.6 g/dL; Glucose 110 mg/dL (74-99); Magnesium 1.8 mg/dL (1.6-2.3); Non-African American GFR(CKD) >90 (>60 ml/min/1.73 sqM); Phosphorus 3.9 mg/dL (2.5-4.5); Potassium 3.6 mmol/L (3.5-5.1); Sodium 136 mmol/L (137-145); Total Protein 7.4 g/dL (6.3-8.2)
[2021-12-11] MEDS: [UNRECOGNIZED DRUG - REMARK] IV SCH ×14 (07:05→10:24)
[2021-12-11 07:30] VITALS: RESP 16
[2021-12-11] MEDS: FUROSEMIDE 40 MG TAB PO SCH (08:03)
[2021-12-11] MEDS: MEGESTROL 40 MG TAB PO SCH (08:04)
[2021-12-11] MEDS: NYSTATIN 100,000 UNIT/ML SUSP 500,000 UNIT/5 ML CUP PO SCH ×2 (08:04→13:23)
[2021-12-11] MEDS: HYDROPHILIC CREAM 180 GM TUBE TOPICAL SCH (08:04)
[2021-12-11] MEDS: PANTOPRAZOLE 40 MG/10 ML VIAL IVP SCH (08:04)
[2021-12-11] MEDS: MAGNESIUM SULFATE-D5W PMX 1 GM in DEXTROSE/WATER 1 100ML.BAG IVPB SCH ×2 (10:04→11:02)
[2021-12-11] MEDS: POTASSIUM CHLORIDE 10 MEQ in WATER FOR INJECTION 1 100ML.BAG IVPB SCH ×2 (10:04→11:01)
[2021-12-11 10:58] LABS: Glucose,Whole Blood 125 mg/dL (75-99)
--- NOTE | 2021-12-11 11:57 | P.PN ---
Subjective Progress Note Date: 12/11/21 CHIEF COMPLAINT: Abdominal pain HISTORY OF PRESENT ILLNES: Patient is lying in bed comfortably. No pain. They're planning discharge today for patient. TPN will be weaned off. Patient's oral intake is still minimal. No new complaints. Afebrile. WBC 8.8 yesterday PHYSICAL EXAM: VITAL SIGNS: Reviewed. GENERAL: Patient is more awake and responsive. He does say a few words. HEENT: Moist buccal mucosa. Head is atraumatic, normocephalic. ABDOMEN: Soft. Nondistended. EBONY drains the drain on the left with purulent output. The drain on the right minimal serous drainage. Incisional dressing clean dry and intact and healing nicely ASSESSMENT: 1. Pneumoperitoneum, suspected gastric leak and section of proximal jejunum with ischemic changes status post exploratory laparotomy, drainage of upper abdominal abscess, lysis of adhesions and small bowel resection on 11/12/21 2. Ischemia of the lateral portion of the stomach and mild ischemia of the proximal jejunum status post exploratory laparotomy and partial gastrectomy on 10/30/21 3. Septic shock 4. Postoperative ileus resolved 5. Thrombocytopenia resolved 6. Possible aspiration pneumonia 7. Anemia 8. Left Pleural effusion status post thoracentesis PLAN: -Patient can be discharged from surgical standpoint -Continue chopped diet. -Continue local wound care -Continue to monitor EBONY drain output -Patient will be discharged with EBONY drains in place and retention sutures Physician World Geography Teacher note has been reviewed by physician. Signing provider agrees with the documented findings, assessment, and plan of care. Objective - Vital Signs Vital signs: Vital Signs Temp 97.9 F 12/11/21 07:28 Pulse 102 H 12/11/21 07:28 Resp 16 12/11/21 07:28 BP 123/76 12/11/21 07:28 Pulse Ox 100 12/11/21 07:28 Intake & Output 12/10/21 12/11/21 12/11/21 18:59 06:59 18:59 Intake Total 540 240 Output Total 150 Balance 390 240 Intake: IV 240 Sodium Chloride 0.9% 1, 240 000 ml @ 20 mls/hr IV . Q24H [facility] Rx#:[id number] Oral 540 Output: Stool 150 Other: Voiding Method Diaper Diaper Diaper Incontinent Incontinent Incontinent # Voids 3 1 ABP, PAP, CO, CI - Last Documented Arterial Blood Pressure 144/72 - Labs CBC & Chem 7: 12/10/21 06:07 12/11/21 06:02 Labs: Abnormal Lab Results - Last 24 Hours (Table) 12/10/21 12/11/21 12/11/21 Range/Units 17:09 00:27 05:45 Sodium (137-145) mmol/L Carbon Dioxide (22-30) mmol/L BUN (9-20) mg/dL Glucose (74-99) mg/dL POC Glucose (mg/dL) 125 H 120 H 123 H (75-99) mg/dL Calcium (8.4-10.2) mg/dL Alkaline Phosphatase (38-126) U/L Albumin (3.5-5.0) g/dL 12/11/21 12/11/21 Range/Units 06:02 10:53 Sodium 136 L (137-145) mmol/L Carbon Dioxide 31 H (22-30) mmol/L BUN 36 H (9-20) mg/dL Glucose 110 H (74-99) mg/dL POC Glucose (mg/dL) 125 H (75-99) mg/dL Calcium 10.8 H (8.4-10.2) mg/dL Alkaline Phosphatase 289 H (38-126) U/L Albumin 2.8 L (3.5-5.0) g/dL
[2021-12-11 12:07] VITALS: BP 119/75; PULSE 91; TEMP 98
--- NOTE | 2021-12-11 12:42 | P.PN ---
Subjective Progress Note Date: 12/11/21 51-year-old patient being seen in ICU for a nonhealing ulceration to the anterior aspect of the penile shaft. Patient was unable to answer any questions. The ulceration measures approximately 2 x 2.5 x 0.2 cm with significant amount of slough and nonviable tissue within the wound bed. There is no granulation noted to the wound bed. The wound edges are attached to the wound base. No tunneling or undermining noted. Patient's past medical history significant for ABDs, hypertension, CVA, intellectual impairment. 12/11/2021: I was asked to re-see this patient for a new ulceration to the coccyx patient has a stage II pressure ulcer to the coccyx. There is granulation seen within the wound that there is some maceration noted. Upon examination brother stated that the patient had a ulceration to the back of the head. Patient has a stage II pressure ulcer with eschar Present to the distal portion of the ulceration the superior portion of the ulceration has significant amounts of Slough and nonviable tissue no granulation noted within the wound that the ulceration measures 3 x 6 x 0.1 cm. No tunneling or undermining noted. The wound edges are attached to the wound base. The ulceration to the penis is showing improvement in size and morphology. Review Of Systems: Constitutional: No fever, no chills, no night sweats. No weight change. No weakness, fatigue or lethargy. No daytime sleepiness. Integumentary:reports wounds, no lesions. No rash or pruritus. No unusual bruising. No change in hair or nails. Physical exam: General Appearance: Alert, cooperative, no distress, appears stated age. Skin: See HPI all other Skin color, texture, tugor normal, no rashes or lesions. Neurologic: Alert oriented x3 Assessment: 1. Nonhealing ulceration with fat layer exposure to anterior aspect of penis. 2. Pressure ulcer sacral region stage II 3. Pressure ulcer to the back of the head stage II. 4. Diabetes a skin ulceration Plan: 1. Penis ulceration: Apply triad to the site change daily. May cover with a dressing as needed. 2. Sacral ulceration: Apply triad and sacral border foam. 3. Posterior head ulceration apply honey gel only to the open ulcerated site. Cover with a border foam for rolled gauze. Change Thursday. Thank you for the consultation any questions please contact the wound care center . DNP note has been reviewed and discussed with Dr. Barrientos and the impression and plan of care has been directed as dictated. Objective - Vital Signs Vital signs: Vital Signs Temp 98 F 12/11/21 12:05 Pulse 91 12/11/21 12:05 Resp 16 12/11/21 12:05 BP 119/75 12/11/21 12:05 Pulse Ox 98 12/11/21 12:05 Intake & Output 12/10/21 12/11/21 12/11/21 18:59 06:59 18:59 Intake Total 540 240 Output Total 150 Balance 390 240 Intake: IV 240 Sodium Chloride 0.9% 1, 240 000 ml @ 20 mls/hr IV . Q24H [facility] Rx#:[id number] Oral 540 Output: Stool 150 Other: Voiding Method Diaper Diaper Diaper Incontinent Incontinent Incontinent # Voids 3 1 ABP, PAP, CO, CI - Last Documented Arterial Blood Pressure 144/72 - Labs CBC & Chem 7: 12/10/21 06:07 12/11/21 06:02 Labs: Abnormal Lab Results - Last 24 Hours (Table) 12/10/21 12/11/21 12/11/21 Range/Units 17:09 00:27 05:45 Sodium (137-145) mmol/L Carbon Dioxide (22-30) mmol/L BUN (9-20) mg/dL Glucose (74-99) mg/dL POC Glucose (mg/dL) 125 H 120 H 123 H (75-99) mg/dL Calcium (8.4-10.2) mg/dL Alkaline Phosphatase (38-126) U/L Albumin (3.5-5.0) g/dL 12/11/21 12/11/21 Range/Units 06:02 10:53 Sodium 136 L (137-145) mmol/L Carbon Dioxide 31 H (22-30) mmol/L BUN 36 H (9-20) mg/dL Glucose 110 H (74-99) mg/dL POC Glucose (mg/dL) 125 H (75-99) mg/dL Calcium 10.8 H (8.4-10.2) mg/dL Alkaline Phosphatase 289 H (38-126) U/L Albumin 2.8 L (3.5-5.0) g/dL Assessment and Plan (1) Non-pressure chronic ulcer of skin of other sites with fat layer exposed Current Visit: Yes Status: Acute Code(s): L98.492 - NON-PRS CHRONIC ULCER OF SKIN OF SITES W FAT LAYER EXPOSED SNOMED Code(s): 24696457 (2) Type 2 diabetes mellitus with other skin ulcer Current Visit: Yes Status: Acute Code(s): E11.622 - TYPE 2 DIABETES MELLITUS WITH OTHER SKIN ULCER; L98.499 - NON-PRESSURE CHRONIC ULCER OF SKIN OF SITES W UNSP SEVERITY SNOMED Code(s): 230702704 (3) Pressure ulcer of sacral region, stage 2 Current Visit: Yes Status: Acute Code(s): L89.152 - PRESSURE ULCER OF SACRAL REGION, STAGE 2 SNOMED Code(s): 79969588000987709 (4) Pressure ulcer of head, stage 2 Current Visit: Yes Status: Acute Code(s): L89.812 - PRESSURE ULCER OF HEAD, STAGE 2 SNOMED Code(s): 96115645946449
--- NOTE | 2021-12-11 15:17 | P.DS ---
Providers Date of admission: 10/29/21 04:45 Attending physician: Merline Lopez Consults: 10/29/21 22:43 Consult Physician Routine Consulting Provider: Dl Toussaint Consult Reason/Comments: ileus vs. mechanical obstruction Do you want consulting provider notified?: Yes 10/30/21 10:13 Consult Physician Routine Consulting Provider: Maxwell Harvey Consult Reason/Comments: hypotension Do you want consulting provider notified?: Yes 11/05/21 11:02 Consult Physician Routine Consulting Provider: Aldo Downey Consult Reason/Comments: mental status change, encephalopathy Do you want consulting provider notified?: Yes Primary care physician: Robles Bianca [facility] Course: Final Diagnosis 1 Septic shock secondary to ischemic bowel with acute GI bleed requiring surgical repair and monitoring in the intensive care unit. -Ischemia of the lateral portion of the stomach and proximal jejunum, status post partial gastrectomy on 10/30 -Pneumoperitoneum and upper abdominal abscess status post exploratory laparotomy, lysis of adhesions, and small bowel resection on 11/12 -Bilateral aspiration pneumonia, resolved, no white count, lungs are clear, continues off antibiotics. -Leukocytosis secondary to above, resolved -Toxic/metabolic encephalopathy improving -Oral thrush -Stage 2 sacral decub -Hyperkalemia resolved -Elevated liver enzymes, stable -Mostly chronic kidney disease, stage III -Anemia, normocytic, most likely chronic exacerbated by acute blood loss secondary to septic shock on admission, stable and improving, current hemoglobin today 9.2 with no evidence for acute bleeding. Patient has received a total of 10 units of blood this admission. Last transfusion on November 21. -Diabetes mellitus type 2 -History of CVA -Developmental delay, autism -Do Not Resuscitate Discharge Disposition Patient is stable for discharge back to his prior custodial today. Met with care team this morning to discuss on going needs wound care, nutritional support and additional supplies and home care has been ordered and coordinated with care team. Patients brothers who are POA are aware of discharge instructions, current plan of care and are eager for discharge today. Hospital Course This is a 51 year old male with history of developmental delay, prior CVA, diabetes, syncope, hypertension, who resides in a custodial setting. Presents to the on 10/29/2021 with history of multiple syncopal episodes as well as significant amount of nausea, vomiting, and diarrhea prior to arrival. Patient was found to be hypotensive with blood pressure 60's/70's. Patient was fluid resuscitated and blood pressure did improve initially. Patient was evaluated in this emergency room 1 month prior as well for history of syncope. Initial work up in the this admission for syncope included 2D Echo which reveals an ejection fraction of 60 to 65% with aneurysmal intraarterial septum. Chest CTA completed showing no pulmonary embolism, with dilated thoracic esophagus with fluid levels and also dilated stomach related to possible reflux disease vs. other esophageal dysfunction. Head cervical spine CT showing mild cerebral atrophy stable from previous exam. Patient was evaluated by cardiology. -Due to ongoing diarrhea, abdominal pelvis CT was requested showing extensive portal venous air, extensive pneumatosis involving stomach and bowel. There is significant ileus, with mechanical bowel obstruction not entirely excluded. Gangrenous bowel and stomach in the differential. Patient was empirically started on IV zosyn, fluid resuscitation and transferred to telemetry unit for monitoring. General surgery evaluated the patient and recommended placement of NG Tube which returned ion red blood, subsequently patient was taken to the OR for exploratory laporatomy with partial gastrectomy on october 30, 2021. Patient was taken to the intensive care unit postoperatively where he was maintained on mechanical ventilation. Pathology negative for malignancy. -November 01, 2021 patient was initiated on TPN/Lipids which continued until discharge. -Patient was extubated on October, -Patient was encephalopathic postoperatively and was evaluated by neurology on 11/05/[address] repeat which is negative for acute abnormality. -EEG completed on 11/06/2021 showing background slowing suggestive of generalized cerebral dysfunction as seen with toxic metabolic encephalopathy or due to diffuse structural brain abnormality. No epileptiform acitivity was seen. Chest xray completed at this time possible pneumonia, congestive heart failure, possible effusion and associated atelectasis versus edema. Patient was treated in the ICU with IV lasix, daily doses starting on November 04, 2021. He was transitioned to oral lasix on november 01, 2021. -On November 11, 2021 patient experienced fever of 103.2 with hypotension, respiratory distress requiring non rebreather mask. He was found to be foaming at the mouth with suspicion for seizure, aspiration, and minimally responsive. He received fluid bolus, continues on IV zosyn and received IV keppra. Patient was subsequently intubated with bronchoscopy and alveolar lavage performed. Cultures showing jimbo albicans and patient was started on IV fluconazole which was discontinued on December 10, 2021. There was also E. coli with resistance to zosyn found on aspirate and antibiotics were changed to IV Vancomycin. and then IV Invanz which was discontinued on November 08, 2021. -Repeat Abdominal/pelvis CT showing pleural effusions with extensive lower lobe pulmonary consolidation and atelectasis similar to old exam. There is abdominal ascites fluid slightly improved. There is evidence of small bowel ileus. No free air, no cholelisthiasis. There is subcutaneous edema which is mild around the a bdomen pelvis and improved. -On November 12, 2021 patient was taken back to the OR for pneumoperitoneum suspected gastric leak and underwent exploratory laporatomy, drainage upper abdominal abscess, small bowel resection with end to end anastomosis. Patient continues with 2 retention sutures to the midline abdominal incision as well as bilateral EBONY drains that are draining a milky color. Output has decreased drastically since surgery. Wound care instructions regarding EBONY drain and midline incision included in discharge orders. -on October Patient was extubated and weaned to 2L NC. -On November 22, 2021 patient underwent chest ultrasound showing left pleural effusion and underwent left sided thoracentesis with 850 mL of serosanguenous fluid removed by pulmonary/processing rep team. Patient was eventually transferred out of the intensive care unit on November 27, 2021. He underwent barium swallow on 12/03/2021 which shows aspiration and penetration with larger globes within liquid. Otherwise the examination with small sips of thin liquid in various consistencies was normal without aspiration or penetration. This admission patient also underwent evaluation by wound care for multiple wounds including nonhealing ulceration with fat layer exposed to the anterior aspect of penis as well as sacral decubitus ulcer with recommendations for triad cream applied daily. Patient also has a nonhealing chronic ulcer to the back of his head with andre ordered MWF and will follow up in the wound care clinic on discharge. Liver enzymes continued to be elevated this admission with AST and ALT returning to normal on day of discharge 12/11/2021. Patients psychiatric medications were held this admission. Patient received a total of 10 units of packed red blood cells this admission. All cultures including urine culture, blood culture were negative with the exception of mentioned aspirate and bronchial washing as above. He was followed by multiple consultations including pulmonary i ntensivist, general surgery, neurology, wound care, physical therapy, occupation therapy, speech therapy. 12/11/2021 Patient is evaluated today with his 2 brothers at the bedside. He is eager for discharge. His main complain is pain to the sacral decub on his bottom today. He was reevaluated by wound care today with current recommendations of triad cream to be applied to the sacrum decubitus ulcer with optifoam sacrum dressing over top as well as the lesion on his penis daily. There is also a chronic pressure ulcer on the back of his head that was present prior to admission which will be treated with adnre DOUGLAS. Patient will need to follow up with wound care on discharge as well. Otherwise, patient ate well yesterday and is asking for drinks today. He is alert, appropriate, able to communicate his needs. He was started on flomax when catheter was discontinued, which he has had no problems with urinary retention. Flomax can be continued and re-evaluated outpatient if he continues to have adequate urinary output and may be able to discontinue. Noted that he was on ditropan previously which is discontinued for now. Patient was on multiple psychiatric medications which he has not been receiving this hospital stay. See medication reconciliation for discontinued medications and recommend follow up with his psychiatrist for reevaluation and resuming med ications. Patient was continued on lasix 40 mg PO BID however will decreased to 20 mg PO BID on discharge as he will be off the TPN, and would like to avoid dehydration. Today AST/ALT have normalized and alk phos continues to trend down. Patient may receive tylenol over the counter for pain as needed. Additionally, he has been receiving magnesium and potassium replacement and will continue on discharge. Additional labs today show white count A pain, hemoglobin 9.2, sodium 136, potassium 3.6, blood glucose 120, magnesium 1.8, alk phos 289. He remains afebrile, heart rate 91, blood pressure 119/75, 98% room air. Patient is having bowel movements, urinating without difficult he is incontinent. He denies chest pain, chest pressure, cough, shortness of breath. Abdominal incision is clean and dry. Can be washed with plain soap and water and daily dry dressing changes with abd pads/gauze. His lungs are clear, S1 S2 auscultated, and he has normoactive bowel sounds. Neurological he has improved his speech is clear, he is speaking in single word phrases and communicating wants and needs. He is eager and asking to go home. Please see medication reconciliation for a list of current medications. Thank you for allowing us to participate in the care of this patient. The impression and plan of care has been dictated by Charu Thrasher, Nurse Practitioner as directed. Dr. Christina MD I have performed a history and physical examination and medical decision making of this patient, discussed the same with the dictator, and agree with the dictators assessment and plan as written, documented as a scribe. Based on total visit time, I have performed more than 50% of this visit. Patient Condition at Discharge: Fair Plan - Discharge Summary Discharge Rx Participant: No New Discharge Prescriptions: New Tamsulosin [Flomax] 0.4 mg PO PC-SUPPER #30 cap Furosemide [Lasix] 20 mg PO BID #60 tab Magnesium Oxide [Mag-Ox] 400 mg PO DAILY #30 tablet Megestrol [Megace] 40 mg PO DAILY #30 tab Nystatin 100,000 Unit/ml Susp [Mycostatin Oral Susp] 500,000 unit PO QID 7 Da ys #140 ml Potassium Chloride Oral Liquid 20 meq PO DAILY 30 Days #450 ml Pantoprazole [Protonix] 0 mg PO DIRECTED #60 tab Acetaminophen Tab [Tylenol] 500 mg PO Q6HR PRN tab PRN Reason: Fever And/ Or Pain Continue ARIPiprazole 15 mg PO BID@0700,2000 Citalopram Hydrobromide [CeleXA] 40 mg PO DAILY@0700 Atorvastatin Calcium [Lipitor] 10 mg PO HS@1999 Carbidopa-Levodopa 10-100 mg [Sinemet 10-100 mg] 1 tab PO TID@0700,1600,1999 Aspirin EC [Ecotrin Low Dose] 81 mg PO DAILY@0700 Nystatin [Nystop] 1 applic TOPICAL DAILY PRN PRN Reason: Rash Cholecalciferol [Vitamin D3 (25 Mcg = 1000 Iu)] 50 mcg PO DAILY@0700 Primidone [Mysoline] 50 mg PO DAILY@0700 Discontinued Enalapril [Vasotec] 5 mg PO DAILY@0700 LORazepam [Ativan] 1 mg PO TID@0700,1200,1999 Benztropine Mesylate [Cogentin] 0.5 mg PO TID@0700,1200,1999 cloZAPine [Clozaril] 100 mg PO BID@0700,1600 Melatonin 10 mg PO HS@1999 Oxybutynin Chloride [Ditropan] 5 mg PO TID@07,1599,1999 Pregabalin [Lyrica] 75 mg PO DAILY@0700 Hydrocortisone Cream [Hydrocortisone 2.5% Cream] 1 applic TOPICAL BID@699,1999 LORazepam [Ativan] 2 mg PO DAILY PRN PRN Reason: Anxiety Discharge Medication List ARIPiprazole 15 mg PO BID@07,199907/29/18 [History] Citalopram Hydrobromide [CeleXA] 40 mg PO DAILY@0700 07/29/18 [History] Aspirin EC [Ecotrin Low Dose] 81 mg PO DAILY@69907/31/21 [History] Atorvastatin Calcium [Lipitor] 10 mg PO HS@199907/31/21 [History] Carbidopa-Levodopa 10-100 mg [Sinemet 10-100 mg] 1 tab PO TID@0700,1599,199907/31/21 [History] Primidone [Mysoline] 50 mg PO DAILY@0707/31/21 [History] Cholecalciferol [Vitamin D3 (25 Mcg = 1000 Iu)] 50 mcg PO DAILY@0700 10/29/21 [History] Nystatin [Nystop] 1 applic TOPICAL DAILY PRN 10/29/21 [History] Acetaminophen Tab [Tylenol] 500 mg PO Q6HR PRN tab 12/11/21 [Rx] Furosemide [Lasix] 20 mg PO BID #60 tab 12/11/21 [Rx] Magnesium Oxide [Mag-Ox] 400 mg PO DAILY #30 tablet 12/11/21 [Rx] Megestrol [Megace] 40 mg PO DAILY #30 tab 12/11/21 [Rx] Nystatin 100,000 Unit/ml Susp [Mycostatin Oral Susp] 500,000 unit PO QID 7 Days #140 ml 12/11/21 [Rx] Pantoprazole [Protonix] 0 mg PO DIRECTED #60 tab 12/11/21 [Rx] Potassium Chloride Oral Liquid 20 meq PO DAILY 30 Days #450 ml 12/11/21 [Rx] Tamsulosin [Flomax] 0.4 mg PO PC-SUPPER #30 cap 12/11/21 [Rx] Follow up Appointment(s)/Referral(s): [facility], [NON-STAFF] - 1 Week Wound Center,[facility] [NON-STAFF] - 1 Week Roblse Valenzuela DO [Primary Care Provider] - 1-2 days Dl Toussaint MD [STAFF PHYSICIAN] - 1 Week Ambulatory/Diagnostic Orders: Complete Blood Count w/diff [LAB.AMB] Time Frame: 2 Days, Location: None Selected Comprehensive Metabolic Panel [LAB.AMB] Time Frame: 2 Days, Location: None Selected Magnesium [LAB.AMB] Time Frame: 2 Days, Location: None Selected Patient Instructions/Handouts: Syncope (DC), How to Prevent Pressure Injuries (DC) Activity/Diet/Wound Care/Special Instructions: Pt will require a wheelchair to complete ADLs that can not be done with a cane or walker due to dx: debility s/p partial gastrectomy and intellectual impairment. Pt will have someone at home to propel him. Pt will require a melissa lift because he requires at least two people to get out of bed to complete their ADLs or otherwise beneficiary would be bedbound. Nutrition Discharge Needs: Consume at least 3 meals daily and oral nutrition supplement (Magic Cup or equivalent) at least 1-3x daily to meet calculated nutrition needs: 1926 calories per day and 97 grams of protein per day Current diet: Dysphagia level 3: Chopped. 1:1 Supervision, aspiration precautions, no straws. [place] thick liquids. Free water guideline include supervised ice chips/sips water, upright positioning with all PO intake, small bites/sips. Keep a log of EBONY drain output and bring with you to your follow-up appointment Milk/strip drains 2-3 times a day You may shower. No soaking or tub baths for 2 weeks Apply triad cream to penis and coccyx daily. Dressing changes for the pressure ulcer on the back of head will be Mon, Thu, Thursday with therahoney applied to wound base and covered with gauze. Patient will need to follow up with outpatient psychiatry for evaluation for resuming psychiatric medications.
--- NOTE | 2021-12-13 09:25 | CDI ---
Documentation Clarification Form Date: 12/13/21 From: Sara Connors Admit Date: 10/29/2021 04:45:00 AM Patient Name: Amanuel Monk Visit Number: [id number] Discharge Date: 12/11/2021 04:15:00 PM ATTENTION: The Clinical Documentation Specialists (CDI) and [facility] Coding Staff appreciate your assistance in clarifying documentation. Please respond to the clarification below the line at the bottom and electronically sign. The CDI & [facility] Coding staff will review the response and follow-up if needed. Please note: Queries are made part of the Legal Health Record. If you have any questions, please contact the author of this message via ITS. Dr. Merline Lopez or Dr. Rachel Vasquez: Your patient has the documented diagnosis of unspecified CHF in the 11/05 PN. Additional information regarding the [type, acuity] of CHF is requested. History/Risk Factors: HTN, sepsis, septic shock, acute ischemia of small intestine and stomach, PNA, aspiration PNA, ATN Clinical Indicators: Blood gases show pO2 112, pCO2 29, and pH is 7.45.The patient's on D10, at 20 mL an hour, and TPN at 65 mL an hour. The patient will get Lasix 60 mg IV push today. 11/04 VS/Pulse OX: T 99.4, P 101-103, R 28-37 BNP: 10/29-20 10/29 Echocardiogram Results: There is moderate concentric left ventricular hypertrophy. Overall left ventricular systolic function is normal with, an EF between 60 - 65 %. 11/05 Chest X Ray: Correlate for pneumonia, congestive heart failure, possible effusion and associated atelectasis versus edema. Treatment: IV Lasix In your professional opinion, can you please clarify the [acuity and type] of CHF if known? [ ] Acute Systolic Heart Failure (reduced EF) [ ] Chronic Systolic Heart Failure (reduced EF) [ ] Acute on Chronic Systolic Heart Failure (reduced EF) [ ] Acute Diastolic Heart Failure (preserved EF) [ ] Chronic Diastolic Heart Failure (preserved EF) [ ] Acute on Chronic Diastolic Heart Failure (preserved EF) [ ] Acute Systolic & Diastolic Heart Failure [ ] Chronic Systolic & Diastolic Heart Failure [ ] Acute on Chronic Heart Failure Systolic & Diastolic Heart Failure [ ] Other, please specify [ ] Unable to determine No CHF MTDD
== END 2021-12-11 16:15 | disposition home health service (06) | DRG 853 ==
LOC: EC 01:08 → 3SCARD 04:45 → 2SICU 10-30 10:23 → 4SSUR 11-09 16:43 → 2SICU 11-11 09:30 → 5NMEDONC 11-28 00:21
PROVIDERS: ADMIT Hospitalist; ATTEND Hospitalist
PROC: 5A1955Z Respiratory Ventilation, Greater than 96 Consecutive Hours (ICD-10-PCS; 2021-10-30)
PROC: 3E033XZ Introduction of Vasopressor into Peripheral Vein, Percutaneous Approach (ICD-10-PCS; 2021-10-30)
PROC: 30233N1 Transfusion of Nonautologous Red Blood Cells into Peripheral Vein, Percutaneous Approach (ICD-10-PCS; 2021-10-30)
PROC: 0D9670Z Drainage of Stomach with Drainage Device, Via Natural or Artificial Opening (ICD-10-PCS; 2021-10-30)
PROC: 03HY32Z Insertion of Monitoring Device into Upper Artery, Percutaneous Approach (ICD-10-PCS; 2021-10-30)
PROC: 02H633Z Insertion of Infusion Device into Right Atrium, Percutaneous Approach (ICD-10-PCS; 2021-10-30)
PROC: 4A133J1 Monitoring of Arterial Pulse, Peripheral, Percutaneous Approach (ICD-10-PCS; 2021-10-30)
PROC: 0D9670Z Drainage of Stomach with Drainage Device, Via Natural or Artificial Opening (ICD-10-PCS; 2021-10-30)
PROC: 4A133B1 Monitoring of Arterial Pressure, Peripheral, Percutaneous Approach (ICD-10-PCS; 2021-10-30)
PROC: 0DBA0ZZ Excision of Jejunum, Open Approach (ICD-10-PCS; principal; 2021-10-30 09:50)
PROC: 0DB60ZZ Excision of Stomach, Open Approach (ICD-10-PCS; principal; 2021-10-30 09:50)
PROC: 5A0955A Assistance with Respiratory Ventilation, Greater than 96 Consecutive Hours, High Flow/Velocity Cannula (ICD-10-PCS; 2021-11-05)
PROC: 5A1955Z Respiratory Ventilation, Greater than 96 Consecutive Hours (ICD-10-PCS; 2021-11-11)
PROC: 4A133B1 Monitoring of Arterial Pressure, Peripheral, Percutaneous Approach (ICD-10-PCS; 2021-11-11)
PROC: 03HY32Z Insertion of Monitoring Device into Upper Artery, Percutaneous Approach (ICD-10-PCS; 2021-11-11)
PROC: 0BH17EZ Insertion of Endotracheal Airway into Trachea, Via Natural or Artificial Opening (ICD-10-PCS; 2021-11-11)
PROC: 4A133J1 Monitoring of Arterial Pulse, Peripheral, Percutaneous Approach (ICD-10-PCS; 2021-11-11)
PROC: 0B918ZZ Drainage of Trachea, Via Natural or Artificial Opening Endoscopic (ICD-10-PCS; 2021-11-11)
PROC: 0B978ZZ Drainage of Left Main Bronchus, Via Natural or Artificial Opening Endoscopic (ICD-10-PCS; 2021-11-11)
PROC: 0B9J8ZZ Drainage of Left Lower Lung Lobe, Via Natural or Artificial Opening Endoscopic (ICD-10-PCS; 2021-11-11)
PROC: 0B9F8ZZ Drainage of Right Lower Lung Lobe, Via Natural or Artificial Opening Endoscopic (ICD-10-PCS; 2021-11-11)
PROC: 0B938ZZ Drainage of Right Main Bronchus, Via Natural or Artificial Opening Endoscopic (ICD-10-PCS; 2021-11-11)
PROC: 5A09357 Assistance with Respiratory Ventilation, Less than 24 Consecutive Hours, Continuous Positive Airway Pressure (ICD-10-PCS; 2021-11-11)
PROC: 0W9G00Z Drainage of Peritoneal Cavity with Drainage Device, Open Approach (ICD-10-PCS; 2021-11-12)
PROC: 0DBA0ZZ Excision of Jejunum, Open Approach (ICD-10-PCS; 2021-11-12)
PROC: 02HV33Z Insertion of Infusion Device into Superior Vena Cava, Percutaneous Approach (ICD-10-PCS; 2021-11-18)
PROC: 0BH17EZ Insertion of Endotracheal Airway into Trachea, Via Natural or Artificial Opening (ICD-10-PCS; 2021-11-18)
PROC: 5A1945Z Respiratory Ventilation, 24-96 Consecutive Hours (ICD-10-PCS; 2021-11-18)
PROC: 0D9670Z Drainage of Stomach with Drainage Device, Via Natural or Artificial Opening (ICD-10-PCS; 2021-11-18)
PROC: 0W9B3ZX Drainage of Left Pleural Cavity, Percutaneous Approach, Diagnostic (ICD-10-PCS; 2021-11-22)
DX: A41.9 Sepsis, unspecified organism (principal); R65.21 Severe sepsis with septic shock; J96.01 Acute respiratory failure with hypoxia; K55.019 Acute (reversible) ischemia of small intestine, extent unspecified; G92.8 Other toxic encephalopathy; J69.0 Pneumonitis due to inhalation of food and vomit; K63.1 Perforation of intestine (nontraumatic); K65.1 Peritoneal abscess; N17.0 Acute kidney failure with tubular necrosis; R57.1 Hypovolemic shock; G72.81 Critical illness myopathy; R64 Cachexia; E87.2 Acidosis; K56.7 Ileus, unspecified; R18.8 Other ascites; B37.0 Candidal stomatitis; D62 Acute posthemorrhagic anemia; K91.89 Other postprocedural complications and disorders of digestive system; K92.1 Melena; J98.11 Atelectasis; F84.0 Autistic disorder; Z16.11 Resistance to penicillins; Z66 Do not resuscitate; Z20.822 Contact with and (suspected) exposure to COVID-19; J98.2 Interstitial emphysema; E11.649 Type 2 diabetes mellitus with hypoglycemia without coma; D69.6 Thrombocytopenia, unspecified; L89.152 Pressure ulcer of sacral region, stage 2; D70.9 Neutropenia, unspecified; I65.02 Occlusion and stenosis of left vertebral artery; L89.812 Pressure ulcer of head, stage 2; E11.22 Type 2 diabetes mellitus with diabetic chronic kidney disease; E11.622 Type 2 diabetes mellitus with other skin ulcer; E87.8 Other disorders of electrolyte and fluid balance, not elsewhere classified; I12.9 Hypertensive chronic kidney disease with stage 1 through stage 4 chronic kidney disease, or unspecified chronic kidney disease; L98.492 Non-pressure chronic ulcer of skin of other sites with fat layer exposed; N18.30 Chronic kidney disease, stage 3 unspecified; K66.8 Other specified disorders of peritoneum; K76.1 Chronic passive congestion of liver; N48.5 Ulcer of penis; B96.20 Unspecified Escherichia coli [E. coli] as the cause of diseases classified elsewhere; K31.89 Other diseases of stomach and duodenum; K66.0 Peritoneal adhesions (postprocedural) (postinfection); K63.89 Other specified diseases of intestine; E87.5 Hyperkalemia; E87.6 Hypokalemia; N20.0 Calculus of kidney; K80.20 Calculus of gallbladder without cholecystitis without obstruction; E86.0 Dehydration; R32 Unspecified urinary incontinence; F79 Unspecified intellectual disabilities; R62.50 Unspecified lack of expected normal physiological development in childhood; Z79.82 Long term (current) use of aspirin; Z79.899 Other long term (current) drug therapy; Z86.73 Personal history of transient ischemic attack (TIA), and cerebral infarction without residual deficits; Z71.3 Dietary counseling and surveillance; Z80.0 Family history of malignant neoplasm of digestive organs; Z83.3 Family history of diabetes mellitus; Z82.49 Family history of ischemic heart disease and other diseases of the circulatory system; Z80.51 Family history of malignant neoplasm of kidney; Z83.49 Family history of other endocrine, nutritional and metabolic diseases
CPT/HCPCS: 31624; 36415; 36573; 36600; 70450; 71045; 71250; 71275; 72125; 74018; 74176; 74177; 74230; 76604; 80048; 80053; 80164; 80188; 80202; 81001; 82040; 82140; 82330; 82533; 82607; 82746; 82805; 82945; 83519; 83605; 83615; 83735; 83880; 84100; 84145; 84157; 84443; 84478; 84484; 85025; 85027; 85379; 85610; 85730; 86850; 86900; 86901; 86920; 87040; 87070; 87075; 87077; 87086; 87102; 87116; 87186; 87205; 87206; 87252; 87324; 87496; 87498; 87502; 87529; 87634; 87635; 87798; 88108; 88305; 88307; 89050; 93005; 93306; 94002; 94003; 94640; 94660; 94760; 95816; 96361; 96374; 99291

== ENCOUNTER → 2022-03-04 | Outpatient (CLI) | payer MEDICARE, OTHER ==
--- NOTE | 2022-03-04 12:49 | FL ---
Modified barium swallow. HISTORY: Dysphagia. Modified barium swallow was performed with the department of speech pathology. The patient was prese nted with various consistencies of barium. There is aspiration and penetration with thin barium. Full report is to follow from the department of speech pathology. Impression: Aspiration with thin barium
== END | disposition home or self-care (01) ==
LOC: RADFLMAIN 11:01
PROVIDERS: ATTEND Family Medicine
DX: R13.10 Dysphagia, unspecified (principal); T17.920A Food in respiratory tract, part unspecified causing asphyxiation, initial encounter
CPT/HCPCS: 74230

== ENCOUNTER 2022-03-27 15:55 | Emergency (ER) | payer MEDICARE, OTHER ==
[2022-03-27] MEDS ORDERED: SODIUM CHLORIDE 0.9% 500 ML 500 ML IV STA (16:08)
--- NOTE | 2022-03-27 16:14 | ED ---
General Adult HPI - General Chief complaint: Syncope Stated complaint: syncope Time Seen by Provider: 03/27/22 16:00 Source: patient, EMS, RN notes reviewed, old records reviewed, Caregiver Mode of arrival: EMS Limitations: altered mental status, physical limitation - History of Present Illness Initial comments: 51-year-old male brought in by EMS from an extended care facility after syncopal episode today. Caregiver at bedside states that he ambulated to his room around 3:00 and was normal, approximately 5 minutes later they found him sitting in the chair slumped over to the right and drooling. Unsure if there was loss of consciousness. She states when she arrived and took his vital signs she found his blood pressure was low. She immediately called EMS and patient was brought to the emergency room. There is no evidence of facial droop at this time. He is moving all 4 extremities. He does have a history of syncopal episodes and TIAs, does not take any blood thinners. She states that he did not fall or hit his head. Caregiver states that he often does not cooperate with doctors and nurses with neuro exams however he does seem slow to respond to her at this time. 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 lasting approximately 5 minutes per caregiver) Severity scale (1-10): 0 Consistency: now resolved Associated Symptoms: weakness Treatments Prior to Arrival: none - Related Data Home Medications Medication Instructions Recorded Confirmed Citalopram Hydrobromide [CeleXA] 40 mg PO DAILY@0700 07/29/18 03/27/22 Aspirin EC [Ecotrin Low Dose] 81 mg PO DAILY@0700 07/31/21 03/27/22 Atorvastatin Calcium [Lipitor] 10 mg PO HS@199907/31/21 03/27/22 Carbidopa-Levodopa 10-100 mg 1 tab PO TID@0700,1600,199907/31/21 03/27/22 [Sinemet 10-100 mg] Nystatin [Nystop] 1 applic TOPICAL DAILY PRN 10/29/21 03/27/22 ARIPiprazole [Abilify] 15 mg PO DAILY@0700 03/27/22 03/27/22 Ensure 1 can PO BID@0900,1500 03/27/22 03/27/22 Ergocalciferol [Vitamin D2 (1250 1,250 mcg PO Q30D 03/27/22 03/27/22 Mcg = 38060 Iu)] Furosemide [Lasix] 20 mg PO BID@0700,1900 03/27/22 03/27/22 LORazepam [Ativan] 1 mg PO BID PRN 03/27/22 03/27/22 Magnesium Oxide [Mag-Ox] 400 mg PO DAILY@69903/27/22 03/27/22 Megestrol [Megace] 40 mg PO DAILY@69903/27/22 03/27/22 Pantoprazole [Protonix] 40 mg PO DAILY@69903/27/22 03/27/22 Potassium Chloride Oral Liquid 20 meq PO DAILY@69903/27/22 03/27/22 Primidone [Mysoline] 50 mg PO DAILY@69903/27/22 03/27/22 Tamsulosin [Flomax] 0.4 mg PO W/SUPPER@1700 03/27/22 03/27/22 polyethylene glycoL 3350 [Miralax] 17 gm PO DAILY 03/27/22 03/27/22 Previous Rx's Medication Instructions Recorded Nystatin 100,000 Unit/ml Susp 500,000 unit PO QID 7 Days #140 ml 12/11/21 [Mycostatin Oral Susp] Allergies Allergy/AdvReac Type Severity Reaction Status Date / Time No Known Allergies Allergy Verified 03/27/22 16:29 Review of Systems ROS Statement: Those systems with pertinent positive or pertinent negative responses have been documented in the HPI. ROS Other: All systems not noted in ROS Statement are negative. Past Medical History Past Medical History: CVA/TIA, Diabetes Mellitus, Hypertension Additional Past Medical History / Comment(s): Pt recently admitted to [facility] on 02/20/20 with R intrinsic hand muscle weakness/possible L vertebral artery stenosis/thrombocytopenia. Other hx: Diet controlled diabetes, autism, in tellectual impairment History of Any Multi-Drug Resistant Organisms: None Reported Past Surgical History: No Surgical Hx Reported Additional Past Surgical History / Comment(s): BROTHER STATED NO KNOWN SX, partial gatrectomy October 2021, Past Anesthesia/Blood Transfusion Reactions: Unable to Obtain Additional Past Anesthesia/Blood Transfusion Reaction / Comment(s): NEVER HAD ANY SX Past Psychological History: No Psychological Hx Reported Smoking Status: Never smoker Past Alcohol Use History: None Reported Past Drug Use History: None Reported - Past Family History Father Family Medical History: Cancer Additional Family Medical History / Comment(s): COLON CANCER Mother Family Medical History: Cancer, Diabetes Mellitus, Hypertension Additional Family Medical History / Comment(s): OBESITY, FROM METASTATIC KINDEY CANCER General Exam Limitations: altered mental status, physical limitation General appearance: alert Head exam: Present: atraumatic Eye exam: Present: normal appearance, EOMI. Absent: scleral icterus, conjunctival injection, periorbital swelling ENT exam: Present: mucous membranes moist Neck exam: Present: full ROM. Absent: tenderness, meningismus Respiratory exam: Present: normal lung sounds bilaterally. Absent: respiratory distress, accessory muscle use Cardiovascular Exam: Present: regular rate GI/Abdominal exam: Present: soft. Absent: distended, tenderness Extremities exam: Present: full ROM, normal capillary refill. Absent: tendern ess, pedal edema, calf tenderness Neurological exam: Present: alert, normal gait Psychiatric exam: Present: normal affect, normal mood Skin exam: Present: warm, normal color. Absent: cyanosis, diaphoretic, petechiae, pallor Course Vital Signs 03/27/22 03/27/22 15:57 17:26 Temperature 98.0 F Pulse Rate 75 69 Respiratory 16 16 Rate Blood Pressure 141/86 145/65 O2 Sat by Pulse 98 95 Oximetry - Reevaluation(s) Reevaluation #1: 03/27/22 17:35 Patient acting his normal self per the caregiver. He is ambulating with a steady gait in the room. Wants to go home. Asking for [employer]. Time: 17:35 EKG Findings - EKG Results: EKG: sinus rhythm (Ventricular rate 67, NC interval 0.176, QRS 0.90, QTC 0.457) Medical Decision Making - Medical Decision Making Patient presents with a possible syncopal episode today. Caregiver at bedside states that his blood pressure was low when she assessed him. He is back to his normal baseline at this time. He denies any pain or discomfort. He is ambulatory in the room with a steady gait. CT of the brain shows no acute intracranial hemorrhage or midline shift. Age- related cerebral atrophy. Chest x-ray shows a right apical small lung infiltrate. Patient has no shortness of breath. No evidence of leukocytosis. No fevers. Hemoglobin and hematocrit are stable. Electrolytes are unremarkable. Urinalysis shows no evidence of infection or dehydration. Troponin is negative at 0.012 EKG shows sinus rhythm. Platelet count is 76, his last platelet count was 332 on December 13. On November 05 his level was 65. Caregiver was advised of these results as directed to follow up with his primary care doctor. This was likely a syncopal episode as patient does have history of syncope. Case discussed with Dr. Lozano. He'll be discharged home. Caregiver is agreeable to this plan of care. Vital signs are stable. - Lab Data Result diagrams: 03/27/22 16:22 03/27/22 16:22 Lab Results 03/27/22 03/27/22 03/27/22 Range/Units 16:22 16:22 16:22 WBC 3.0 L (3.8-10.6) k/uL RBC 3.55 L (4.30-5.90) m/uL Hgb 10.2 L (13.0-17.5) gm/dL Hct 30.2 L (39.0-53.0) % MCV 84.9 (80.0-100.0) fL MCH 28.6 (25.0-35.0) pg MCHC 33.6 (31.0-37.0) g/dL RDW 15.3 (11.5-15.5) % Plt Count 76 L (150-450) k/uL MPV 8.2 Neutrophils % 52 % Lymphocytes % 38 % Monocytes % 5 % Eosinophils % 2 % Basophils % 1 % Neutrophils # 1.6 (1.3-7.7) k/uL Lymphocytes # 1.1 (1.0-4.8) k/uL Monocytes # 0.2 (0-1.0) k/uL Eosinophils # 0.1 (0-0.7) k/uL Basophils # 0.0 (0-0.2) k/uL Sodium 139 (137-145) mmol/L Potassium 3.4 L (3.5-5.1) mmol/L Chloride 107 (98-107) mmol/L Carbon Dioxide 23 (22-30) mmol/L Anion Gap 9 mmol/L BUN 19 (9-20) mg/dL Creatinine 0.99 (0.66-1.25) mg/dL Est GFR (CKD-EPI)AfAm >90 (>60 ml/min/1.73 sqM) Est GFR (CKD-EPI)NonAf 87 (>60 ml/min/1.73 sqM) Glucose 106 H (74-99) mg/dL POC Glucose (mg/dL) (70-110) mg/dL POC Glu [place] Man ID Calcium 9.0 (8.4-10.2) mg/dL Magnesium 2.1 (1.6-2.3) mg/dL Total Bilirubin 0.3 (0.2-1.3) mg/dL AST 18 (17-59) U/L ALT 10 (4-49) U/L Alkaline Phosphatase 54 (38-126) U/L Troponin I (0.000-0.034) ng/mL Total Protein 6.3 (6.3-8.2) g/dL Albumin 3.5 (3.5-5.0) g/dL Urine Color Yellow Urine Appearance Clear (Clear) Urine pH 5.5 (5.0-8.0) Ur Specific [place] 1.009 (1.001-1.035) Urine Protein Negative (Negative) Urine Glucose (UA) Negative (Negative) Urine Ketones Negative (Negative) Urine Blood Negative (Negative) Urine Nitrite Negative (Negative) Urine Bilirubin Negative (Negative) Urine Urobilinogen <2.0 (<2.0) mg/dL Ur Leukocyte Esterase Negative (Negative) 03/27/22 03/27/22 Range/Units 16:22 16:23 WBC (3.8-10.6) k/uL RBC (4.30-5.90) m/uL Hgb (13.0-17.5) gm/dL Hct (39.0-53.0) % MCV (80.0-100.0) fL MCH (25.0-35.0) pg MCHC (31.0-37.0) g/dL RDW (11.5-15.5) % Plt Count (150-450) k/uL MPV Neutrophils % % Lymphocytes % % Monocytes % % Eosinophils % % Basophils % % Neutrophils # (1.3-7.7) k/uL Lymphocytes # (1.0-4.8) k/uL Monocytes # (0-1.0) k/uL Eosinophils # (0-0.7) k/uL Basophils # (0-0.2) k/uL Sodium (137-145) mmol/L Potassium (3.5-5.1) mmol/L Chloride (98-107) mmol/L Carbon Dioxide (22-30) mmol/L Anion Gap mmol/L BUN (9-20) mg/dL Creatinine (0.66-1.25) mg/dL Est GFR (CKD-EPI)AfAm (>60 ml/min/1.73 sqM) Est GFR (CKD-EPI)NonAf (>60 ml/min/1.73 sqM) Glucose (74-99) mg/dL POC Glucose (mg/dL) 123 H (70-110) mg/dL POC Glu [place]url[place] Man ID Avelino Wade Calcium (8.4-10.2) mg/dL Magnesium (1.6-2.3) mg/dL Total Bilirubin (0.2-1.3) mg/dL AST (17-59) U/L ALT (4-49) U/L Alkaline Phosphatase (38-126) U/L Troponin I <0.012 (0.000-0.034) ng/mL Total Protein (6.3-8.2) g/dL Albumin (3.5-5.0) g/dL Urine Color Urine Appearance (Clear) Urine pH (5.0-8.0) Ur Specific [place] (1.001-1.035) Urine Protein (Negative) Urine Glucose (UA) (Negative) Urine Ketones (Negative) Urine Blood (Negative) Urine Nitrite (Negative) Urine Bilirubin (Negative) Urine Urobilinogen (<2.0) mg/dL Ur Leukocyte Esterase (Negative) Disposition Clinical Impression: Syncope Disposition: HOME SELF-CARE Condition: Good Instructions (If sedation given, give patient instructions): Syncope (ED) Additional Instructions: Platelet count is 76 today, hemoglobin is 10.2. Chest x-ray shows a small infiltrate in the right upper lung. Please have primary care doctor reassess him next week. Return to the emergency room with any new or concerning symptoms. Is patient prescribed a controlled substance at d/c from ED?: No Referrals: Robles Valenzuela DO [Primary Care Provider] - 1-2 days Time of Disposition: 18:18
[2022-03-27 16:32] LABS: Glucose,Whole Blood 123 mg/dL (70-110)
[2022-03-27 16:33] LABS: Basophils % (A) 1 %; Eosinophils # (A) 0.1 k/uL (0-0.7); Eosinophils % (A) 2 %; HCT 30.2 % (39.0-53.0); HGB 10.2 gm/dL (13.0-17.5); Lymphocytes # (A) 1.1 k/uL (1.0-4.8); Lymphocytes % (A) 38 %; MCH 28.6 pg (25.0-35.0); MCHC 33.6 g/dL (31.0-37.0); MCV 84.9 fL (80.0-100.0); Mean Platelet Volume 8.2; Monocytes # (A) 0.2 k/uL (0-1.0); Monocytes % (A) 5 %; Neutrophils # (A) 1.6 k/uL (1.3-7.7); Neutrophils % (A) 52 %; RBC 3.55 m/uL (4.30-5.90); RDW 15.3 % (11.5-15.5)
[2022-03-27 16:38] LABS: Platelet Count 76 k/uL (150-450)
[2022-03-27 16:44] LABS: ALT 10 U/L (4-49); AST 18 U/L (17-59); African American GFR (CKD) >90 (>60 ml/min/1.73 sqM); Albumin 3.5 g/dL (3.5-5.0); Alkaline Phosphatase 54 U/L (38-126); Anion Gap 9 mmol/L; Blood Urea Nitrogen 19 mg/dL (9-20); Carbon Dioxide 23 mmol/L (22-30); Chloride 107 mmol/L (98-107); Glucose 106 mg/dL (74-99); Magnesium 2.1 mg/dL (1.6-2.3); Non-African American GFR(CKD) 87 (>60 ml/min/1.73 sqM); Potassium 3.4 mmol/L (3.5-5.1); Sodium 139 mmol/L (137-145); Total Bilirubin 0.3 mg/dL (0.2-1.3); Total Protein 6.3 g/dL (6.3-8.2)
[2022-03-27 17:00] LABS: Appearance,Urine Clear (Clear); Bilirubin,Urine Negative (Negative); Blood,Urine Negative (Negative); Color,Urine Yellow; Glucose,Urine (UA) Negative (Negative); Ketones,Urine Negative (Negative); Leukocyte Esterase,Urine Negative (Negative); Nitrite,Urine Negative (Negative); PH, Urine 5.5 (5.0-8.0); Protein,Urine Negative (Negative); Specific Gravity,Urine 1.009 (1.001-1.035); Urobilinogen,Urine <2.0 mg/dL (<2.0)
--- NOTE | 2022-03-27 17:42 | XR ---
EXAMINATION: XR chest 2V DATE AND TIME: 03/27/2022 5:04 PM CLINICAL INDICATION: PHH; syncope TECHNIQUE: Departmental protocol COMPARISON: 12/03/2021 FINDINGS: There is mild asymmetry to the lung apices, with added opacity on the right suggesting small infiltra te in the right upper lobe. The lungs are otherwise well-expanded and radiographically clear. The pleural spaces are negative. The cardiac silhouette is not enlarged. The remainder of the mediastinal silhouette is unremarkable. The skeletal structures and soft tissues are negative for acute findings. IMPRESSION: Suspect right apical small lung infiltrate; six-week follow-up radiograph can be used to prove resolu tion.
--- NOTE | 2022-03-27 17:47 | CT ---
EXAMINATION TYPE: CT brain wo con DATE OF EXAM: 03/27/2022 HISTORY: Syncope CT DLP: 1277.4 mGycm. Automated Exposure Control for Dose Reduction was Utilized. TECHNIQUE: CT scan of the head is performed without contrast. COMPARISON: 11/05/2021 FINDINGS: There is no acute intracranial hemorrhage or midline shift identified. There is diffuse v entricular and sulcal prominence consistent with diffuse age-related cerebral atrophy. There is low- attenuation in the periventricular white matter consistent with chronic small vessel ischemic change. The globes are intact and the visualized sinuses are clear. IMPRESSION: No acute intracranial hemorrhage or midline shift. There is diffuse age-related cerebra l atrophy and chronic small vessel ischemic change noted.
[2022-03-27 18:29] VITALS: PULSE 70; RESP 18
[2022-03-27 18:30] VITALS: BP 129/98; TEMP 98.4
== END 2022-03-27 18:32 | disposition home or self-care (01) ==
LOC: EC 15:55
DX: R55 Syncope and collapse (principal); E11.9 Type 2 diabetes mellitus without complications; I10 Essential (primary) hypertension; Z79.899 Other long term (current) drug therapy; Z79.82 Long term (current) use of aspirin
CPT/HCPCS: 36415; 70450; 71046; 80053; 81003; 83735; 84484; 85025; 93005; 96360; 99284

== ENCOUNTER 2022-07-22 13:39 | Observation (INO) | payer MEDICARE, OTHER ==
[2022-07-22] MEDS ORDERED: SODIUM CHLORIDE 0.9% 500 ML 500 ML IV STA (13:44)
--- NOTE | 2022-07-22 14:00 | ED ---
Altered Mental Status HPI - General Chief Complaint: Altered Mental Status Stated Complaint: Unresponsive Time Seen by Provider: 07/22/22 13:43 Source: EMS, RN notes reviewed, old records reviewed Mode of arrival: EMS - History of Present Illness Initial Comments: 2-year-old male with a history of autism history of anemia history of syncopal episodes in the past apparently passed out they will eating lunch for 12:30 minutes and found by paramedics it was 77 systolic blood pressure initially was given some IV fluids with some improvement and 98 systolic. Glucose is 160. No evidence seizure activity he was unresponsive and did not respond to verbal or physical stimulation. Again this lasted approximately 30 minutes no reports of trauma no reports of any fevers chills nausea vomiting sweats upon arrival the patient did indicate he has some abdominal discomfort. EKG sent in by paramedics showed a sinus rhythm. MD Complaint: altered mental status, other - Related Data Home Medications Medication Instructions Recorded Confirmed Citalopram Hydrobromide [CeleXA] 40 mg PO DAILY@0700 07/29/18 03/27/22 Aspirin EC [Ecotrin Low Dose] 81 mg PO DAILY@0700 07/31/21 03/27/22 Atorvastatin Calcium [Lipitor] 10 mg PO HS@199907/31/21 03/27/22 Carbidopa-Levodopa 10-100 mg 1 tab PO TID@0700,1599,199907/31/21 03/27/22 [Sinemet 10-100 mg] Nystatin [Nystop] 1 applic TOPICAL DAILY PRN 10/29/21 03/27/22 ARIPiprazole [Abilify] 15 mg PO DAILY@69903/27/22 03/27/22 Ensure 1 can PO BID@0900,1500 03/27/22 03/27/22 Ergocalciferol [Vitamin D2 (1250 1,250 mcg PO Q30D 03/27/22 03/27/22 Mcg = 90462 Iu)] Furosemide [Lasix] 20 mg PO BID@0700,1900 03/27/22 03/27/22 LORazepam [Ativan] 1 mg PO BID PRN 03/27/22 03/27/22 Magnesium Oxide [Mag-Ox] 400 mg PO DAILY@0700 03/27/22 03/27/22 Megestrol [Megace] 40 mg PO DAILY@69903/27/22 03/27/22 Pantoprazole [Protonix] 40 mg PO DAILY@69903/27/22 03/27/22 Potassium Chloride Oral Liquid 20 meq PO DAILY@69903/27/22 03/27/22 Primidone [Mysoline] 50 mg PO DAILY@69903/27/22 03/27/22 Tamsulosin [Flomax] 0.4 mg PO W/SUPPER@1700 03/27/22 03/27/22 polyethylene glycoL 3350 [Miralax] 17 gm PO DAILY 03/27/22 03/27/22 Previous Rx's Medication Instructions Recorded Nystatin 100,000 Unit/ml Susp 500,000 unit PO QID 7 Days #140 ml 12/11/21 [Mycostatin Oral Susp] Allergies Allergy/AdvReac Type Severity Reaction Status Date / Time No Known Allergies Allergy Verified 03/27/22 16:29 Review of Systems ROS Statement: Those systems with pertinent positive or pertinent negative responses have been documented in the HPI. ROS Other: All systems not noted in ROS Statement are negative. Limitations: ROS unobtainable due to patients medical condition Past Medical History Past Medical History: CVA/TIA, Diabetes Mellitus, Hypertension Additional Past Medical History / Comment(s): Pt recently admitted to [facility] on 02/20/20 with R intrinsic hand muscle weakness/possible L vertebral artery stenosis/thrombocytopenia. Other hx: Diet controlled diabetes, autism, intellectual impairment History of Any Multi-Drug Resistant Organisms: None Reported Past Surgical History: No Surgical Hx Reported Additional Past Surgical History / Comment(s): BROTHER STATED NO KNOWN SX, partial gatrectomy October 2021, Past Anesthesia/Blood Transfusion Reactions: Unable to Obtain Additional Past Anesthesia/Blood Transfusion Reaction / Comment(s): NEVER HAD ANY SX Past Psychological History: No Psychological Hx Reported Smoking Status: Never smoker Past Alcohol Use History: None Reported Past Drug Use History: None Reported - Past Family History Father Family Medical History: Cancer Additional Family Medical History / Comment(s): COLON CANCER Mother Family Medical History: Cancer, Diabetes Mellitus, Hypertension Additional Family Medical History / Comment(s): OBESITY, FROM METASTATIC KINDEY CANCER General Exam - General Exam Comments Initial Comments: Is a well-developed thin appearing male who is awake alert but a poor historian General appearance: alert, in no apparent distress, lethargic Head exam: Present: atraumatic, normocephalic, normal inspection Eye exam: Present: normal appearance, PERRL, EOMI. Absent: scleral icterus, conjunctival injection, periorbital swelling ENT exam: Present: mucous membranes dry Neck exam: Present: normal inspection, full ROM, other (No stridor JVD or bruits). Absent: tenderness, meningismus, lymphadenopathy Respiratory exam: Present: normal lung sounds bilaterally. Absent: respiratory distress, wheezes, rales, rhonchi, stridor Cardiovascular Exam: Present: normal rhythm, bradycardia, normal heart sounds. Absent: systolic murmur, diastolic murmur, rubs, gallop, clicks GI/Abdominal exam: Present: soft, normal bowel sounds. Absent: distended, tenderness, guarding, rebound, rigid, bruit, pulsatile mass (Well-healed surgical scars) Rectal exam: Present: deferred Extremities exam: Present: normal inspection, full ROM, normal capillary refill. Absent: tenderness, pedal edema, joint swelling, calf tenderness Back exam: Present: normal inspection Neurological exam: Present: alert, oriented X3, CN II-XII intact Psychiatric exam: Present: normal affect, normal mood Skin exam: Present: warm, dry, intact, normal color. Absent: rash Course Vital Signs 07/22/22 13:42 Temperature 98.1 F Pulse Rate 53 L Respiratory 20 Rate Blood Pressure 127/81 O2 Sat by Pulse 99 Oximetry Medical Decision Making - Medical Decision Making I did discuss [employer] the patient's chcf and injured patient will be admitted for IV hydration I did discuss case with Dr. Omega Garnica also neurology will be consulted. The patient has had previous episodes of syncope. Additionally there is question whether he consumes enough fluids as he did have a gastric bypass in the past. - Lab Data Result diagrams: 07/22/22 13:50 07/22/22 13:50 Lab Results 07/22/22 07/22/22 07/22/22 Range/Units 13:50 13:50 13:50 WBC 3.0 L (3.8-10.6) k/uL RBC 3.23 L (4.30-5.90) m/uL Hgb 9.9 L (13.0-17.5) gm/dL Hct 28.7 L (39.0-53.0) % MCV 88.9 (80.0-100.0) fL MCH 30.5 (25.0-35.0) pg MCHC 34.3 (31.0-37.0) g/dL RDW 13.2 (11.5-15.5) % Plt Count 132 L (150-450) k/uL MPV 8.2 Neutrophils % 73 % Lymphocytes % 20 % Monocytes % 4 % Eosinophils % 1 % Basophils % 1 % Neutrophils # 2.2 (1.3-7.7) k/uL Lymphocytes # 0.6 L (1.0-4.8) k/uL Monocytes # 0.1 (0-1.0) k/uL Eosinophils # 0.0 (0-0.7) k/uL Basophils # 0.0 (0-0.2) k/uL D-Dimer 0.53 (<0.60) mg/L FEU Sodium (137-145) mmol/L Potassium (3.5-5.1) mmol/L Chloride (98-107) mmol/L Carbon Dioxide (22-30) mmol/L Anion Gap mmol/L BUN (9-20) mg/dL Creatinine (0.66-1.25) mg/dL Est GFR (CKD-EPI)AfAm (>60 ml/min/1.73 sqM) Est GFR (CKD-EPI)NonAf (>60 ml/min/1.73 sqM) Glucose (74-99) mg/dL Plasma Lactic Acid [place] (0.7-2.0) mmol/L Calcium (8.4-10.2) mg/dL Magnesium (1.6-2.3) mg/dL Total Bilirubin (0.2-1.3) mg/dL AST (17-59) U/L ALT (4-49) U/L Alkaline Phosphatase (38-126) U/L Creatine Kinase (55-170) U/L Troponin I (0.000-0.034) ng/mL Total Protein (6.3-8.2) g/dL Albumin (3.5-5.0) g/dL Lipase (23-300) U/L TSH (0.465-4.680) mIU/L Urine Color Yellow Urine Appearance Clear (Clear) Urine pH 6.0 (5.0-8.0) Ur Specific [place] 1.012 (1.001-1.035) Urine Protein Trace H (Negative) Urine Glucose (UA) Negative (Negative) Urine Ketones Negative (Negative) Urine Blood Large H (Negative) Urine Nitrite Negative (Negative) Urine Bilirubin Negative (Negative) Urine Urobilinogen <2.0 (<2.0) mg/dL Ur Leukocyte Esterase Negative (Negative) Urine RBC 82 H (0-5) /hpf Urine WBC 5 (0-5) /hpf Ur Squamous Epith Cells <1 (0-4) /hpf Hyaline Casts 13 H (0-2) /lpf Urine Mucus Few H (None) /hpf Valproic Acid ug/mL 07/22/22 07/22/22 07/22/22 Range/Units 13:50 13:50 13:50 WBC (3.8-10.6) k/uL RBC (4.30-5.90) m/uL Hgb (13.0-17.5) gm/dL Hct (39.0-53.0) % MCV (80.0-100.0) fL MCH (25.0-35.0) pg MCHC (31.0-37.0) g/dL RDW (11.5-15.5) % Plt Count (150-450) k/uL MPV Neutrophils % % Lymphocytes % % Monocytes % % Eosinophils % % Basophils % % Neutrophils # (1.3-7.7) k/uL Lymphocytes # (1.0-4.8) k/uL Monocytes # (0-1.0) k/uL Eosinophils # (0-0.7) k/uL Basophils # (0-0.2) k/uL D-Dimer (<0.60) mg/L FEU Sodium 138 (137-145) mmol/L Potassium 3.6 (3.5-5.1) mmol/L Chloride 104 (98-107) mmol/L Carbon Dioxide 29 (22-30) mmol/L Anion Gap 5 mmol/L BUN 25 H (9-20) mg/dL Creatinine 1.22 (0.66-1.25) mg/dL Est GFR (CKD-EPI)AfAm 78 (>60 ml/min/1.73 sqM) Est GFR (CKD-EPI)NonAf 67 (>60 ml/min/1.73 sqM) Glucose 96 (74-99) mg/dL Plasma Lactic Acid [place] 1.4 (0.7-2.0) mmol/L Calcium 8.3 L (8.4-10.2) mg/dL Magnesium 2.1 (1.6-2.3) mg/dL Total Bilirubin 0.5 (0.2-1.3) mg/dL AST 19 (17-59) U/L ALT 18 (4-49) U/L Alkaline Phosphatase 56 (38-126) U/L Creatine Kinase 44 L (55-170) U/L Troponin I <0.012 (0.000-0.034) ng/mL Total Protein 5.8 L (6.3-8.2) g/dL Albumin 3.6 (3.5-5.0) g/dL Lipase 166 (23-300) U/L TSH 2.210 (0.465-4.680) mIU/L Urine Color Urine Appearance (Clear) Urine pH (5.0-8.0) Ur Specific [place] (1.001-1.035) Urine Protein (Negative) Urine Glucose (UA) (Negative) Urine Ketones (Negative) Urine Blood (Negative) Urine Nitrite (Negative) Urine Bilirubin (Negative) Urine Urobilinogen (<2.0) mg/dL Ur Leukocyte Esterase (Negative) Urine RBC (0-5) /hpf Urine WBC (0-5) /hpf Ur Squamous Epith Cells (0-4) /hpf Hyaline Casts (0-2) /lpf Urine Mucus (None) /hpf Valproic Acid 21.8 ug/mL - EKG Data -: EKG Interpreted by Me EKG Comments: EKG interpreted by me shows sinus bradycardia rate of 57. Interval 178 QRS duration 86 daily since QTC 464/[address]-T wave changes - Radiology Data Radiology results: image reviewed (I interpreted the x-rays no acute processes evidence of retained fecal matter on the KUB. Additionally I did interpret the CAT scan showed no acute processes.) Disposition Clinical Impression: Syncope and collapse, Dehydration, Bradycardia Disposition: ADMITTED IP TO THIS [facility] Condition: Fair Referrals: Robles Valenzuela DO [Primary Care Provider] - 1-2 days Decision Date: 07/22/22 Decision Time: 14:45
[2022-07-22 14:17] LABS: Basophils % (A) 1 %; Eosinophils % (A) 1 %; HCT 28.7 % (39.0-53.0); HGB 9.9 gm/dL (13.0-17.5); Lymphocytes # (A) 0.6 k/uL (1.0-4.8); Lymphocytes % (A) 20 %; MCH 30.5 pg (25.0-35.0); MCHC 34.3 g/dL (31.0-37.0); MCV 88.9 fL (80.0-100.0); Mean Platelet Volume 8.2; Monocytes # (A) 0.1 k/uL (0-1.0); Monocytes % (A) 4 %; Neutrophils # (A) 2.2 k/uL (1.3-7.7); Neutrophils % (A) 73 %; Platelet Count 132 k/uL (150-450); RBC 3.23 m/uL (4.30-5.90); RDW 13.2 % (11.5-15.5)
--- NOTE | 2022-07-22 14:26 | XR ---
EXAMINATION TYPE: XR chest 1V portable DATE OF EXAM: 07/22/2022 COMPARISON: 03/27/2022 HISTORY: Syncope TECHNIQUE: Single frontal view of the chest is obtained. FINDINGS: There is no focal air space opacity, pleural effusion, or pneumothorax seen. The cardiac silhouette size is within normal limits. The osseous structures are intact. For inflation. Atrophic degenerative changes in the spine. Diffuse anemia. No overt failure. IMPRESSION: 1. Correlate for COPD.
--- NOTE | 2022-07-22 14:27 | XR ---
EXAMINATION TYPE: XR KUB portable DATE OF EXAM: 07/22/2022 COMPARISON: NONE HISTORY: Pain TECHNIQUE: One view abdominal series FINDINGS: The osseous structures are intact. The bowel gas pattern is nonspecific. A few prominent small bowel loops are seen in the abdomen. Upper abdomen not included on the exam therefore exam is limited. Ret ained fecal debris throughout the rectum and left colon. IMPRESSION: 1. Nonspecific abdomen. A few prominent small bowel loops are seen in the right abdomen. A localized ileus or enteritis is not excluded. Retained debris throughout the rectum and left colon correlate f or constipation.
[2022-07-22 14:29] LABS: ALT 18 U/L (4-49); AST 19 U/L (17-59); African American GFR (CKD) 78 (>60 ml/min/1.73 sqM); Albumin 3.6 g/dL (3.5-5.0); Alkaline Phosphatase 56 U/L (38-126); Anion Gap 5 mmol/L; Blood Urea Nitrogen 25 mg/dL (9-20); Calcium 8.3 mg/dL (8.4-10.2); Carbon Dioxide 29 mmol/L (22-30); Chloride 104 mmol/L (98-107); Creatine Kinase 44 U/L (55-170); Glucose 96 mg/dL (74-99); Lipase 166 U/L (23-300); Magnesium 2.1 mg/dL (1.6-2.3); Non-African American GFR(CKD) 67 (>60 ml/min/1.73 sqM); Potassium 3.6 mmol/L (3.5-5.1); Sodium 138 mmol/L (137-145); Total Bilirubin 0.5 mg/dL (0.2-1.3); Total Protein 5.8 g/dL (6.3-8.2)
[2022-07-22 14:45] LABS: Valproic Acid (Depakene) 21.8 ug/mL
[2022-07-22 14:46] LABS: Appearance,Urine Clear (Clear); Bilirubin,Urine Negative (Negative); Blood,Urine Large (Negative); Color,Urine Yellow; Glucose,Urine (UA) Negative (Negative); Hyaline Casts,Urine 13 /lpf (0-2); Ketones,Urine Negative (Negative); Leukocyte Esterase,Urine Negative (Negative); Mucus,Urine Few /hpf; Nitrite,Urine Negative (Negative); Protein,Urine Trace (Negative); RBC,Urine 82 /hpf (0-5); Specific Gravity,Urine 1.012 (1.001-1.035); Squamous Epithelial Cell,Urine <1 /hpf (0-4); Urobilinogen,Urine <2.0 mg/dL (<2.0); WBC,Urine 5 /hpf (0-5)
--- NOTE | 2022-07-22 15:03 | CT ---
EXAMINATION TYPE: CT brain wo con CT DLP: 1177.8 mGycm, Automated exposure control for dose reduction was used. DATE OF EXAM: 07/22/2022 2:57 PM COMPARISON: CT brain 03/27/2022. CLINICAL INDICATION:Male, 52 years old with history of Altered mental status, AMS TECHNIQUE: Brain: Multiple axial CT images of the brain were obtained without IV contrast. Coronal and sagittal reformats reviewed. FINDINGS: Brain: Extra-axial spaces: No abnormal extra-axial fluid collections. Ventricular system: Within normal limits Cerebral parenchyma: No acute intraparenchymal hemorrhage or mass effect. The lyle-white junction is well differentiated. Scattered hypoattenuating areas are seen within the white matter. Cerebellum: Unremarkable. Mass effect: No evidence of midline shift. Intracranial vasculature: unremarkable Soft tissues: Normal. Calvarium/osseous structures: No depressed skull fracture. Paranasal sinuses and mastoid air cells: Clear Visualized orbits: Orbital contents are intact. IMPRESSION: 1. No acute intracranial process or significant change from prior. 2. Nonspecific white matter changes likely related to chronic small vessel ischemic disease.
[2022-07-22] MEDS ORDERED: NALOXONE 0.4 MG/ML 1 ML VIAL IV PRN (15:13)
[2022-07-22] MEDS ORDERED: ACETAMINOPHEN TAB 325 MG TAB PO PRN (15:13)
[2022-07-22 15:17] LABS: Glucose,Whole Blood 93 mg/dL (70-110)
[2022-07-22] MEDS: SODIUM CHLORIDE 0.9% 1,000 ML IV SCH ×2 (16:40→23:11)
--- NOTE | 2022-07-22 17:01 | P.HPIM ---
History of Present Illness H&P Date: 07/22/22 Chief Complaint: Syncope, unresponsiveness 52-year-old man who lives in a fdc with medical history of mental disability, CK D stage III, diabetes, history of CVA presented for single episode an episode of unresponsiveness. Patient is a poor historian due to mental disability and developmental delay, therefore history is taken from ER provider signout, chart review, patient's caregiver who is at bedside. From my understanding, patient was at dinner and had an episode of syncope where he passed out into his plate of food, then was unresponsive for 30 minutes, pr ompting evaluation in the emergency room. In days prior to this, patient was feeling more lethargic and less energetic than he normally is. Review of systems is unreliable due to patient's mental status and developed mental delay. In the emergency room, patient was afebrile, 127/81, heart rate 53, 99% on room air. CBC shows leukopenia to 3, anemia to 9.9, thrombocytopenia to 132, low lymphocytes at 0.6. Chemistries show mildly elevated BUN 25, creatinine of 1.22. Liver function tests are unremarkable. Troponin is less than 0.012. UA shows trace protein, large blood, 82 red blood cells, 13 hyaline casts. Valproic acid is 21.8. Chest x-ray shows possible COPD, no acute abnormalities. KUB shows a nonspecific abdomen with small bowel loops that are prominent in the right abdomen. EKG shows sinus bradycardia with respiratory variation. CT of the brain shows no acute intracranial process. See HPI regarding review of systems Gen: in no apparent distress, resting comfortably in bed Eyes: PERRL, no scleral injection or icterus HENT: normocephalic, atraumatic, good hearing acuity, moist mucous membranes Neck: no tracheal deviation, full range of motion Resp: good air exchange, breathing comfortably with no accessory muscle use, no tactile fremitus CVS: good distal perfusion x 4, no pitting edema GI: soft, NTTP, ND, no hepatosplenomegaly : no suprapubic tenderness, no CVAT, rivas catheter not present MSK: no clubbing, no cyanosis, no noted contractures of extremities Skin: no noted rashes, petechiae; temperature of skin is appropriate Neuro: moving all extremities without signs of weakness, CN II-XII intact Labs and imaging as above Assessment/plan: Syncope -Admit to observation, telemetry -Neurology consulted -EEG, pending -Orthostatics twice a day -IV fluids -PT consult Pancytopenia -Hematology consult -Iron panel, B12, folate History of developmental delay Chronic kidney disease, stage III Diabetes, type II History of CVA -Home medications reviewed and reconciled Patient is full code DVT prophylaxis with heparin 3 times a day Past Medical History Past Medical History: CVA/TIA, Diabetes Mellitus, Hypertension Additional Past Medical History / Comment(s): Pt recently admitted to [facility] on 02/20/20 with R intrinsic hand muscle weakness/possible L vertebral artery stenosis/thrombocytopenia. Other hx: Diet controlled diabetes, autism, intellectual impairment History of Any Multi-Drug Resistant Organisms: None Reported Past Surgical History: No Surgical Hx Reported Additional Past Surgical History / Comment(s): BROTHER STATED NO KNOWN SX, partial gatrectomy October 2021, Past Anesthesia/Blood Transfusion Reactions: Unable to Obtain Additional Past Anesthesia/Blood Transfusion Reaction / Comment(s): NEVER HAD ANY SX Past Psychological History: No Psychological Hx Reported Smoking Status: Never smoker Past Alcohol Use History: None Reported Past Drug Use History: None Reported - Past Family History Father Family Medical History: Cancer Additional Family Medical History / Comment(s): COLON CANCER Mother Family Medical History: Cancer, Diabetes Mellitus, Hypertension Additional Family Medical History / Comment(s): OBESITY, FROM METASTATIC KINDEY CANCER Medications and Allergies Home Medications Medication Instructions Recorded Confirmed Type Aspirin EC [Ecotrin Low Dose] 81 mg PO DAILY@0700 07/31/21 07/22/22 History Atorvastatin Calcium [Lipitor] 10 mg PO HS@199907/31/21 07/22/22 History Carbidopa-Levodopa 10-100 mg 1 tab PO TID@0700,1600,199907/31/21 07/22/22 History [Sinemet 10-100 mg] Furosemide [Lasix] 20 mg PO DAILY@69903/27/22 07/22/22 History Magnesium Oxide [Mag-Ox] 400 mg PO DAILY@69903/27/22 07/22/22 History Pantoprazole [Protonix] 40 mg PO DAILY@69903/27/22 07/22/22 History Potassium Chloride Oral Liquid 20 meq PO DAILY@69903/27/22 07/22/22 History Primidone [Mysoline] 50 mg PO DAILY@0700 03/27/22 07/22/22 History Tamsulosin [Flomax] 0.4 mg PO DAILY@1600 03/27/22 07/22/22 History ARIPiprazole [Abilify] 10 mg PO BID@699,199907/22/22 07/22/22 History Divalproex Sodium [Depakote] 500 mg PO BID@699,199907/22/22 07/22/22 History Escitalopram [Lexapro] 20 mg PO DAILY@69907/22/22 07/22/22 History LORazepam [Ativan] 0.5 mg PO DAILY@0707/22/22 07/22/22 History Allergies Allergy/AdvReac Type Severity Reaction Status Date / Time No Known Allergies Allergy Verified 03/27/22 16:29 Physical Exam Osteopathic Statement: *. No significant issues noted on an osteopathic structural exam other than those noted in the History and Physical/Consult. Vitals: Vital Signs Temp Pulse Pulse Resp BP BP Pulse Ox 07/22/22 16:19 103 H 137/82 07/22/22 15:00 98.7 F 59 L 16 136/81 94 L 07/22/22 13:42 98.1 F 53 L 20 127/81 99 Intake and Output 07/22/22 07/22/22 07/22/22 06:59 14:59 22:59 Other: Weight 63.503 kg Results CBC & Chem 7: 07/22/22 13:50 07/22/22 13:50 Labs: Abnormal Lab Results - Last 24 Hours (Table) 07/22/22 07/22/22 07/22/22 Range/Units 13:50 13:50 13:50 WBC 3.0 L (3.8-10.6) k/uL RBC 3.23 L (4.30-5.90) m/uL Hgb 9.9 L (13.0-17.5) gm/dL Hct 28.7 L (39.0-53.0) % Plt Count 132 L (150-450) k/uL Lymphocytes # 0.6 L (1.0-4.8) k/uL BUN 25 H (9-20) mg/dL Calcium 8.3 L (8.4-10.2) mg/dL Creatine Kinase 44 L (55-170) U/L Total Protein 5.8 L (6.3-8.2) g/dL Urine Protein Trace H (Negative) Urine Blood Large H (Negative) Urine RBC 82 H (0-5) /hpf Hyaline Casts 13 H (0-2) /lpf Urine Mucus Few H (None) /hpf
--- NOTE | 2022-07-22 17:10 | P.CNNES ---
History of Present Illness Consult date: 07/22/22 Requesting physician: Alex Gamez Reason for Consult: syncope History of Present Illness: This is a 52-year-old gentleman with autistic spectrum disorder, developmental delay, syncope, hypoglycemia, diabetes mellitus, hypertension who resides emergency department on 07/22/2022 for a possible syncopal episode. Some of the history was obtained from one of home takers at his facility where resides and medical record. It seems the patient apparently passed out while eating lunch around 12:30 and was found by paramedics with a systolic blood pressure and 70's. Hewas not responsive but no seizure-like activity and did not respond to verbal or physical stimulation per ED note. The episode lasted for about 30 minutes. As a result of hypotensive episode she was given IV fluids. The EKG in by paramedics showed sinus rhythm. According to the home takers she stated that the patient does not have any seizure-like activities. She stated that about a week ago his blood pressure was 80s. He had a gastronomy in October 2021 and he does drink enough fluids. He was started on Depakote 500 mg a tablet twice a day for his moods and his first tablet was yesterday at night. Of note she was seen by Dr. Alford in our facility on 2 different hospital visit. In most recent one was on 10/2021. Per his note he mentions the patient has altered mental status likely a toxic metabolic encephalopathy. Patient had an EEG during that visit and did not show any seizure or any discharges is reported. Some of the workup during this hospital visit consisted of: Initial vital signs his blood pressure of 127/81, heart rate of 53, respiratory of 20, temperature of 98.1 Fahrenheit oral pulse ox 99% room air. White blood cells 3.0 thousand, platelet is 132,000 The initial serum glucose is 96 CK levels were 4 plasma lactic acid venous is 1.4 TSH is 2.210 calcium is 8.3 otherwise rest of Chem-7 panel is unremarkable Valproic acid is 21.8 which is subtherapeutic. Normal is supposed to be between 50-120 CT of the head is reported as no acute intracranial processes significant change from prior. Nonspecific white matter changes likely related to chronic small vessel ischemic disease. EKG is reported as sinus bradycardia with sinus arrhythmia. Borderline EKG. Ventricular rate is 57. Review of Systems Review of system: The 12 point system was reviewed and apparent positive and negative per HPI. Past Medical History Past Medical History: CVA/TIA, Diabetes Mellitus, Hypertension Additional Past Medical History / Comment(s): Pt recently admitted to [facility] on 02/20/20 with R intrinsic hand muscle weakness/possible L vertebral artery stenosis/thrombocytopenia. Other hx: Diet controlled diabetes, autism, intellectual impairment History of Any Multi-Drug Resistant Organisms: None Reported Past Surgical History: No Surgical Hx Reported Additional Past Surgical History / Comment(s): BROTHER STATED NO KNOWN SX, partial gatrectomy October 2021, Past Anesthesia/Blood Transfusion Reactions: Unable to Obtain Additional Past Anesthesia/Blood Transfusion Reaction / Comment(s): NEVER HAD ANY SX Past Psychological History: No Psychological Hx Reported Smoking Status: Never smoker Past Alcohol Use History: None Reported Past Drug Use History: None Reported - Past Family History Father Family Medical History: Cancer Additional Family Medical History / Comment(s): COLON CANCER Mother Family Medical History: Cancer, Diabetes Mellitus, Hypertension Additional Family Medical History / Comment(s): OBESITY, FROM METASTATIC KINDEY CANCER Medications and Allergies Home Medications Medication Instructions Recorded Confirmed Type Aspirin EC [Ecotrin Low Dose] 81 mg PO DAILY@0707/31/21 07/22/22 History Atorvastatin Calcium [Lipitor] 10 mg PO HS@199907/31/21 07/22/22 History Carbidopa-Levodopa 10-100 mg 1 tab PO TID@07,1599,199907/31/21 07/22/22 History [Sinemet 10-100 mg] Furosemide [Lasix] 20 mg PO DAILY@69903/27/22 07/22/22 History Magnesium Oxide [Mag-Ox] 400 mg PO DAILY@69903/27/22 07/22/22 History Pantoprazole [Protonix] 40 mg PO DAILY@69903/27/22 07/22/22 History Potassium Chloride Oral Liquid 20 meq PO DAILY@69903/27/22 07/22/22 History Primidone [Mysoline] 50 mg PO DAILY@69903/27/22 07/22/22 History Tamsulosin [Flomax] 0.4 mg PO DAILY@159903/27/22 07/22/22 History ARIPiprazole [Abilify] 10 mg PO BID@07/22/22 07/22/22 History Divalproex Sodium [Depakote] 500 mg PO BID@0700,199907/22/22 07/22/22 History Escitalopram [Lexapro] 20 mg PO DAILY@0700 07/22/22 07/22/22 History LORazepam [Ativan] 0.5 mg PO DAILY@0700 07/22/22 07/22/22 History Allergies Allergy/AdvReac Type Severity Reaction Status Date / Time No Known Allergies Allergy Verified 07/22/22 16:58 Physical Examination - Vital Signs Vital Signs: Vital Signs Temp Pulse Pulse Resp BP BP Pulse Ox 07/22/22 16:19 103 H 137/82 07/22/22 15:00 98.7 F 59 L 16 136/81 94 L 07/22/22 13:42 98.1 F 53 L 20 127/81 99 Intake and Output 07/22/22 07/22/22 07/22/22 06:59 14:59 22:59 Other: Weight 63.503 kg GENERAL: The patient is lying in bed and is not in acute distress. HENT: Small bruise over the right temporal regions CHEST: The heart rate is regular rate rhythm. No murmurs to auscultation. LUNG: Clear to auscultation bilaterally no wheezing noted throughout. Not labored breathing. ABDOMEN/GI: Bowel sounds present in all 4 quadrants. No tenderness to palpation throughout. NEUROLOGICAL: Higher mental function: The patient is somewhat drowsy but awake to voice. He is oriented to self, time (but needed to asked few times). He is slowing following commands and needs to be told multiple times. He is delayed cognitively. He was able to name pen. Has limited language and kept on saying, "I want to eat Tacos" Cranial nerves: The pupils are round, equal and reactive to ligh. Visual barkley are full to confrontation throughout. Extraocular movement is tracking throughout the room. The facial strength is normal throughout. Tongue is midline and moved [id number] without any difficulty. No evidence of tongue bite No dysarthria is noted. Shoulder shrug is normal bilaterally. Otherwise rest is limited. Motor: The strength is hard to assess because of coopertion but lifting all extremities above gravity. Normal tone and bulk. Cerebellum: Normal finger to nose bilaterally. Sensation: Unable to assess because of cooperation. Reflexes (right/left): 1+ throughout. Plantars are mute bilaterally. Results - Laboratory Findings CBC and BMP: 07/22/22 13:50 07/22/22 13:50 Abnormal Lab Findings: Abnormal Labs 07/22/22 07/22/22 07/22/22 13:50 13:50 13:50 WBC 3.0 L RBC 3.23 L Hgb 9.9 L Hct 28.7 L Plt Count 132 L Lymphocytes # 0.6 L BUN 25 H Calcium 8.3 L Creatine Kinase 44 L Total Protein 5.8 L Urine Protein Trace H Urine Blood Large H Urine RBC 82 H Hyaline Casts 13 H Urine Mucus Few H Assessment and Plan Assessment: Episode of prolonged loss of consciousness/syncope episode (without reported seizure-like activity reported and was noted to be hypotensive and his lactic acid is normal) seems due to hypotensive episode (systolic in 70's and about a week ago was in 80's). Does not appear seizure from history. History of gastronomy in October 2021 in 10/2021 and having hypotensive episodes. History of syncope. Had EEG in 11/19 and no seizure. Chronic thrombocytopenia. Autistic spectrum disorder Developmental delay Diabetes mellitus Hypertension and currently normotensive. Plan: I ordered a routine EEG. Patient is on Depakote 500 mg 1 tablet twice a day which was started on 07/21/2022 for his mood. Depakote has antiepileptic effect as well. I ordered orthostatic vitals. Continue neuro checks On cardiac monitoring Avoid any further hypotensive episode. Consider at an event monitor loop recorder. Unsure of the cause of his reported hypotensive and we'll defer the management to the primary team. The plan was discussed with the patient nurse and his home taker at his facility. Thank you for the consultation. Time with Patient: Greater than 30
[2022-07-22] MEDS: ATORVASTATIN 10 MG TAB PO SCH (20:31)
[2022-07-22] MEDS: ARIPiprazole 10 MG TAB PO SCH (20:31)
[2022-07-22] MEDS: CARBIDOPA-LEVODOPA 10-100 MG 1 EACH TAB PO SCH (20:31)
[2022-07-22] MEDS: DIVALPROEX 500 MG TABLET.DR PO SCH ×2 (20:31)
[2022-07-23] MEDS: SODIUM CHLORIDE 0.9% 1,000 ML IV SCH ×3 (06:31→21:33)
[2022-07-23] MEDS: ESCITALOPRAM 20 MG TAB PO SCH (08:27)
[2022-07-23] MEDS: ASPIRIN 81 MG PO SCH (08:27)
[2022-07-23] MEDS: FUROSEMIDE 20 MG TAB PO SCH (08:27)
[2022-07-23] MEDS: PRIMIDONE 50 MG TAB PO SCH (08:27)
[2022-07-23] MEDS: CARBIDOPA-LEVODOPA 10-100 MG 1 EACH TAB PO SCH ×3 (08:27→20:10)
[2022-07-23] MEDS: MAGNESIUM OXIDE 400 MG TAB PO SCH (08:27)
[2022-07-23] MEDS: DIVALPROEX 500 MG TABLET.DR PO SCH ×4 (08:28→21:33)
[2022-07-23] MEDS: ARIPiprazole 10 MG TAB PO SCH ×2 (08:28→20:10)
[2022-07-23] MEDS: POTASSIUM BICARBONATE/CIT AC 20 MEQ TABLET.EFF PO SCH (08:29)
[2022-07-23] MEDS: PANTOPRAZOLE 40 MG TABLET PO SCH (08:29)
[2022-07-23] MEDS: LORazepam 0.5 MG TAB PO SCH (08:30)
[2022-07-23 11:34] LABS: Glucose,Whole Blood 83 mg/dL (70-110)
--- NOTE | 2022-07-23 15:33 | P.PN ---
Subjective Progress Note Date: 07/23/22 Principal diagnosis: syncope Patient is poor historian. No overnight events. No episodes of syncope noted. Objective - Vital Signs Vital signs: Vital Signs Temp 97.3 F L 07/23/22 15:00 Pulse 64 07/23/22 15:00 Resp 16 07/23/22 15:00 BP 137/88 07/23/22 15:00 Pulse Ox 99 07/23/22 15:00 FiO2 Intake & Output 07/22/22 07/23/22 07/23/22 18:59 06:59 18:59 Intake Total 118 Balance 118 Weight 63.503 kg Intake: Oral 118 Other: Voiding Method Urinal Urinal Diaper Diaper Diaper # Voids 2 4 - Exam Constitutional: No acute distress, conversant, pleasant Eyes:Anicteric sclerae, moist conjunctiva, no lid-lag, PERRLA, ENMT: Oropharynx clear, no erythema, exudates Neck: Supple, FROM, no masses, or JVD, No carotid bruits, No thyromegaly Lungs: Clear to auscultation, Clear to percussion, Normal respiratory effort, no accessory muscle use Cardiovascular: Heart regular in rate and rhythm, No murmurs, gallops, or rubs, No peripheral edema Abdominal: Soft, Nontender, no guarding, rebound or rigidity, Normoactive bowel sounds, No hepatomegaly, No splenomegaly, No palpable mass Skin: Normal temperature, tone, texture, turgor, no induration, No subcutaneous nodules, No rash, lesions, No ulcers Extremities: No digital cyanosis, No clubbing, Pedal pulses intact and symmetrical, Radial pulses intact and symmetrical, No calf tenderness Psychiatric: Alert and oriented to person, place and time, appropriate affect, intact judgement Neuro: Muscles Strength 5/5 in all 4 extremities, Sensation to light touch grossly present throughout, Cranial nerves II-XII grossly intact, no focal sensory deficits - Labs CBC & Chem 7: 07/22/22 13:50 07/22/22 13:50 Assessment and Plan Plan: Syncope -Negative orthostatics today -Neurology consulted, cleared for discharge today, EEG ok. -IV fluids -PT consult Pancytopenia -Hematology consult -Iron panel, B12, folate History of developmental delay Chronic kidney disease, stage III Diabetes, type II History of CVA -Home medications reviewed and reconciled Patient is full code DVT prophylaxis with heparin 3 times a day
[2022-07-23] MEDS ORDERED: TAMSULOSIN 0.4 MG CAP.ER.24H PO SCH (16:00)
--- NOTE | 2022-07-23 16:11 | P.PN ---
Subjective Progress Note Date: 07/23/22 The patient is seen at bedside and no further syncopal or LOC episodes. Objective - Vital Signs Vital signs: Vital Signs Temp 97.3 F L 07/23/22 15:00 Pulse 64 07/23/22 15:00 Resp 16 07/23/22 15:00 BP 137/88 07/23/22 15:00 Pulse Ox 99 07/23/22 15:00 FiO2 Intake & Output 07/22/22 07/23/22 07/23/22 18:59 06:59 18:59 Intake Total 118 Balance 118 Weight 63.503 kg Intake: Oral 118 Other: Voiding Method Urinal Urinal Diaper Diaper Diaper # Voids 2 4 - Exam GENERAL: The patient is lying in bed and is not in acute distress. NEUROLOGICAL: Higher mental function: The patient is awake, alert, oriented to self. He is following commands and needs to be told multiple times to follow . He is delayed cognitively. He was able to name pen. Has limited language. Cranial nerves: The pupils are round, equal and reactive to ligh. Visual barkley are full to confrontation throughout. Extraocular movement is tracking through out the room. The facial strength is normal throughout. Tongue is midline and moved [id number] without any difficulty. No evidence of tongue bite No dysarthria is noted. Shoulder shrug is normal bilaterally. Otherwise rest is limited. Motor: The strength is hard to assess because of coopertion but lifting all extremities above gravity. Normal tone and bulk. Cerebellum: Normal finger to nose bilaterally. Sensation: Unable to assess because of cooperation. Reflexes (right/left): 1+ throughout. Plantars are mute bilaterally. Some of the workup during this hospital visit consisted of: The initial serum glucose is 96 CK levels were 4 plasma lactic acid venous is 1.4 TSH is 2.210 calcium is 8.3 otherwise rest of Chem-7 panel is unremarkable Valproic acid is 21.8 which is subtherapeutic. Normal is supposed to be between 50-120 CT of the head is reported as no acute intracranial processes significant change from prior. Nonspecific white matter changes likely related to chronic small vessel ischemic disease. EKG is reported as sinus bradycardia with sinus arrhythmia. Borderline EKG. Ventricular rate is 57. - Labs CBC & Chem 7: 07/22/22 13:50 07/22/22 13:50 Assessment and Plan Assessment: Episode of prolonged loss of consciousness/syncope episode (without reported seizure-like activity reported and was noted to be hypotensive and his lactic acid is normal) seems due to hypotensive episode (systolic in 70's and about a week ago was in 80's). Does not appear seizure from history. History of gastronomy in October 2021 in 10/2021 and having hypotensive episodes. History of syncope. Had EEG in 11/19 and no seizure. Chronic thrombocytopenia. Autistic spectrum disorder Developmental delay Diabetes mellitus Hypertension and currently normotensive. Plan: Preliminary EEG is normal. There is no focal slowing, epileptiform discharge or seizure. Patient is on Depakote 500 mg 1 tablet twice a day which was started on 07/21/2022 for his mood. Depakote has antiepileptic effect as well. Has positive orthostatic vitals and recommend compression stocking and if uncontrolled salt tab or midodrine and will defer management to primary and cardiology team. Continue neuro checks On cardiac monitoring Avoid any further hypotensive episode. Consider at an event monitor or loop recorder. The plan was discussed with the patient's primary team and his nurse. No further neurological work-up needed. Will sign off. Please reconsult if needed. Time with Patient: Less than 30
[2022-07-23 16:46] LABS: Glucose,Whole Blood 89 mg/dL (70-110)
[2022-07-23 18:22] LABS: Protein, Total 6.2 g/dL (6.2-8.2)
[2022-07-23 18:41] LABS: Ferritin 73.3 ng/mL (22.0-322.0); Rheumatoid Factor, Qnt <10 IU/mL (0-15)
[2022-07-23 18:42] LABS: % Iron Saturation 6.84 (15.00-50.00); Iron 21 ug/dL (65-175); Total Iron Binding Capacity 301 ug/dL (228-460)
[2022-07-23] MEDS: ATORVASTATIN 10 MG TAB PO SCH (20:10)
[2022-07-23 20:21] LABS: Glucose,Whole Blood 117 mg/dL (70-110)
--- NOTE | 2022-07-23 22:23 | EEG ---
ELECTROENCEPHALOGRAM REPORT CLINICAL HISTORY: This is a 52-year-old gentleman with a syncopal episode. The video EEG is obtained to evaluate for seizure epileptiform activity. RELEVANT MEDICATION: Depakote. EEG TYPE: A routine 21-channel EEG is performed with video using the 10/20 electrode placement system. DESCRIPTION: Wakefulness is only obtained. During awake state, the posterior-dominant rhythm consists of low to moderate voltage of 9.5 to 10 hertz activity that is well modulated and well sustained. There is no physiological stage 2 sleep architecture. There is no focal slowing. Interictal and ictal is none. ACTIVATION PROCEDURE: Photic stimulation and hyperventilation are not performed because of the patient's cooperation. CLINICAL INTERPRETATION: This is a normal routine EEG. There is no focal slowing, epileptiform discharge or seizure on the EEG. Clinical correlation is recommended. HERMANN / JUAN ANTONIO: [id number] /
[2022-07-23 22:38] LABS: Basophils # (A) 0.04 X 10*3/uL (0.00-0.10); Basophils % (A) 0.7 %; Eosinophils # (A) 0.11 X 10*3/uL (0.04-0.35); Eosinophils % (A) 1.9 %; HCT 30.9 % (39.6-50.0); HGB 10.1 g/dL (13.0-17.0); Immature Grans, Automated 0.2 %; Lymphocytes # (A) 0.75 X 10*3/uL (0.90-5.00); Lymphocytes % (A) 12.7 %; MCH 29.5 pg (27.0-32.0); MCHC 32.7 g/dL (32.0-37.0); MCV 90.4 fL (80.0-97.0); Mean Platelet Volume 10.8 fL (9.5-12.2); Monocytes # (A) 0.22 X 10*3/uL (0.20-1.00); Monocytes % (A) 3.7 %; NRBC Per 100 WBC 0 /100 WBCS (0.0-0.0); Neutrophils # (A) 4.78 X 10*3/uL (1.80-7.70); Neutrophils % (A) 80.8 %; Platelet Count 146 X 10*3/uL (140-440); RBC 3.42 X 10*6/uL (4.40-5.60); RDW 13.2 % (11.5-14.5); WBC 5.91 X 10*3/uL (4.50-10.00)
--- NOTE | 2022-07-23 23:33 | P.CONS ---
History of Present Illness - Reason for Consult Consult date: 07/23/22 pancytopenia Requesting physician: Johnny Shea - Chief Complaint AMS, unresponsive - History of Present Illness Pt is not able to give me history, taken from chart. Pt is a pleasant man from [facility] with medical history of mental disability, CKD, DM, Hx CVA brought to hospital for 30 min of unresponsiveness. VSS other then bradycardia, found to be pancytopenic. He is on depakote, abilify and sinemet which can cause low blood counts. In this medical record there is a long Hx of anemia, WBC is typically elevated as are platelets. Review of Systems ROS unobtainable: due to mental status Past Medical History Past Medical History: CVA/TIA, Diabetes Mellitus, Hypertension Additional Past Medical History / Comment(s): Pt recently admitted to [facility] on 02/20/20 with R intrinsic hand muscle weakness/possible L vertebral artery stenosis/thrombocytopenia. Other hx: Diet controlled diabetes, autism, intellectual impairment History of Any Multi-Drug Resistant Organisms: None Reported Past Surgical History: No Surgical Hx Reported Additional Past Surgical History / Comment(s): BROTHER STATED NO KNOWN SX, partial gatrectomy October 2021, Past Anesthesia/Blood Transfusion Reactions: Unable to Obtain Additional Past Anesthesia/Blood Transfusion Reaction / Comm: NEVER HAD ANY SX Past Psychological History: No Psychological Hx Reported Smoking Status: Never smoker Past Alcohol Use History: None Reported Past Drug Use History: None Reported - Past Family History Father Family Medical History: Cancer Additional Family Medical History / Comment(s): COLON CANCER Mother Family Medical History: Cancer, Diabetes Mellitus, Hypertension Additional Family Medical History / Comment(s): OBESITY, FROM METASTATIC KINDEY CANCER Medications and Allergies Home Medications Medication Instructions Recorded Confirmed Type Aspirin EC [Ecotrin Low Dose] 81 mg PO DAILY@0700 07/31/21 07/22/22 History Atorvastatin Calcium [Lipitor] 10 mg PO HS@199907/31/21 07/22/22 History Carbidopa-Levodopa 10-100 mg 1 tab PO TID@0700,1599,199907/31/21 07/22/22 History [Sinemet 10-100 mg] Furosemide [Lasix] 20 mg PO DAILY@0700 03/27/22 07/22/22 History Magnesium Oxide [Mag-Ox] 400 mg PO DAILY@0700 03/27/2222/22 History Pantoprazole [Protonix] 40 mg PO DAILY@69903/27/22 07/22/22 History Potassium Chloride Oral Liquid 20 meq PO DAILY@69903/27/22 07/22/22 History Primidone [Mysoline] 50 mg PO DAILY@0703/27/22 07/22/22 History Tamsulosin [Flomax] 0.4 mg PO DAILY@1600 03/27/22 07/22/22 History ARIPiprazole [Abilify] 10 mg PO BID@699,199907/22/22 07/22/22 History Divalproex Sodium [Depakote] 500 mg PO BID@699,199907/22/22 07/22/22 History Escitalopram [Lexapro] 20 mg PO DAILY@69907/22/22 07/22/22 History LORazepam [Ativan] 0.5 mg PO DAILY@69907/22/22 07/22/22 History Allergies Allergy/AdvReac Type Severity Reaction Status Date / Time No Known Allergies Allergy Verified 07/22/22 16:58 Physical Exam Vitals: Vital Signs Temp Pulse Pulse Resp BP BP BP 07/23/22 07:00 98.1 F 59 L 16 131/74 07/23/22 03:00 97.5 F L 54 L 18 162/80 07/22/22 20:00 80 16 150/72 07/22/22 16:21 88 116/83 07/22/22 16:20 91 126/73 07/22/22 16:19 103 H 137/82 07/22/22 15:00 98.7 F 59 L 16 136/81 07/22/22 13:42 98.1 F 53 L 20 127/81 Pulse Ox 07/23/22 07:00 100 07/23/22 03:00 99 07/22/22 20:00 94 L 07/22/22 16:21 07/22/22 16:20 07/22/22 16:19 07/22/22 15:00 94 L 07/22/22 13:42 99 Intake and Output 07/22/22 07/23/22 07/23/22 22:59 06:59 14:59 Other: Voiding Method Urinal Urinal Diaper Diaper # Voids 1 2 Weight 63.503 kg Small stature but visibly no significant physical deformities, he is alert, requesting pepsi and chips, NAD, resp even and unlabored, no visible rashes, petechiae, swelling in extremities Results CBC & Chem 7: 07/23/22 10:57 07/22/22 13:50 Labs: Abnormal Lab Results - Last 24 Hours (Table) 07/22/22 07/22/22 07/22/22 Range/Units 13:50 13:50 13:50 WBC 3.0 L (3.8-10.6) k/uL RBC 3.23 L (4.30-5.90) m/uL Hgb 9.9 L (13.0-17.5) gm/dL Hct 28.7 L (39.0-53.0) % Plt Count 132 L (150-450) k/uL Lymphocytes # 0.6 L (1.0-4.8) k/uL BUN 25 H (9-20) mg/dL Calcium 8.3 L (8.4-10.2) mg/dL Creatine Kinase 44 L (55-170) U/L Total Protein 5.8 L (6.3-8.2) g/dL Urine Protein Trace H (Negative) Urine Blood Large H (Negative) Urine RBC 82 H (0-5) /hpf Hyaline Casts 13 H (0-2) /lpf Urine Mucus Few H (None) /hpf Chest x-ray: report reviewed Abdominal x-ray: report reviewed CT Scan - head: report reviewed Assessment and Plan (1) Pancytopenia Current Visit: Yes Status: Chronic Priority: High Code(s): D61.818 - OTHER PANCYTOPENIA SNOMED Code(s): 014139148 Plan: Pancytopenia work up ordered. His CBC is abnormal but counts in safe range at this time. Suspect drop in counts may be r/t medications and acute event.
[2022-07-24] MEDS: MAGNESIUM OXIDE 400 MG TAB PO SCH (06:13)
[2022-07-24] MEDS: PANTOPRAZOLE 40 MG TABLET PO SCH (06:13)
[2022-07-24] MEDS: LORazepam 0.5 MG TAB PO SCH (06:13)
[2022-07-24] MEDS: FUROSEMIDE 20 MG TAB PO SCH (06:14)
[2022-07-24] MEDS: CARBIDOPA-LEVODOPA 10-100 MG 1 EACH TAB PO SCH (06:14)
[2022-07-24] MEDS: ARIPiprazole 10 MG TAB PO SCH (06:14)
[2022-07-24] MEDS: ASPIRIN 81 MG PO SCH (06:14)
[2022-07-24] MEDS: POTASSIUM BICARBONATE/CIT AC 20 MEQ TABLET.EFF PO SCH (06:15)
[2022-07-24] MEDS: DIVALPROEX 500 MG TABLET.DR PO SCH ×2 (06:16→08:59)
[2022-07-24] MEDS: PRIMIDONE 50 MG TAB PO SCH (06:16)
[2022-07-24] MEDS: ESCITALOPRAM 20 MG TAB PO SCH (06:16)
[2022-07-24 06:17] LABS: Glucose,Whole Blood 75 mg/dL (70-110)
[2022-07-24 08:31] VITALS: BP 130/78; PULSE 77; RESP 16; TEMP 98.5
[2022-07-24] MEDS: SODIUM CHLORIDE 0.9% 1,000 ML IV SCH (08:42)
--- NOTE | 2022-07-24 11:47 | P.DS ---
Providers Date of admission: 07/22/22 15:14 Expected date of discharge: 07/24/22 Attending physician: Felicita Duff MD Consults: 07/22/22 15:13 Consult Physician Routine Consulting Provider: Aldo Downey Consult Reason/Comments: Syncope Do you want consulting provider notified?: Yes 07/22/22 17:01 Consult Physician Routine Consulting Provider: Delgado Smith Consult Reason/Comments: pancytopenia Do you want consulting provider notified?: Yes Primary care physician: [facility] Course: 52-year-old man who lives in a senior living with medical history of mental disa bility, CKD stage III, diabetes, history of CVA presented for single episode an episode of unresponsiveness. Patient is a poor historian due to mental disability and developmental delay, therefore history is taken from ER provider signout, chart review, patient's caregiver who is at bedside. He was at dinner and had an episode of syncope where he passed out into his plate of food, then was unresponsive for 30 minutes, prompting evaluation in the emergency room. In days prior to this, patient was feeling more lethargic and less energetic than he normally is. Review of systems is unreliable due to patient's mental status and developed mental delay. In the emergency room, patient was afebrile, 127/81, heart rate 53, 99% on room air. It was reported that when EMS arrived his systolic blood pressure was 70. CBC shows leukopenia to 3, anemia to 9.9, thrombocytopenia to 132, low lymphocytes at 0.6. Chemistries show mildly elevated BUN 25, creatinine of 1.22. Liver function tests are unremarkable. Troponin is less than 0.012. UA shows trace protein, large blood, 82 red blood cells, 13 hyaline casts. Valproic acid is 21.8. Chest x-ray shows possible COPD, no acute abnormalities. KUB shows a nonspecific abdomen with small bowel loops that are prominent in the right abdomen. EKG shows sinus bradycardia with respiratory variation. CT of the brain shows no acute intracranial process. Patient was admitted, was monitored on telemetry. He was seen by neurology who did an EEG test which was unremarkable. Orthostatics tested negative. Patient was also seen by hematology due to pancytopenia. His platelet count and white blood cell count however normalized the next day. He remained anemic with a hemoglobin around 10. Anemia workup revealed iron deficiency and possible vitamin B12 deficiency. Upon discharge he was started on iron and vitamin B12 replacement. Patient will need follow-up with hematology and possibly GI for chronic bleeding investigation. During the hospitalization did not have any further episodes of passing out. He will be discharged home in stable condition. Patient was evaluated, examined on the day of discharge 07/24 Time for discharge 35 minutes. Patient Condition at Discharge: Fair Plan - Discharge Summary New Discharge Prescriptions: New Ferrous Sulfate [Feosol] 325 mg PO TID 30 Days #90 tab Cyanocobalamin (Vitamin B-12) [Vitamin B-12] 1,000 mcg PO DAILY 30 Days #30 tab Continue Atorvastatin Calcium [Lipitor] 10 mg PO HS@1999 Carbidopa-Levodopa 10-100 mg [Sinemet 10-100 mg] 1 tab PO TID@07,1599,1999 Aspirin EC [Ecotrin Low Dose] 81 mg PO DAILY@07 Pantoprazole [Protonix] 40 mg PO DAILY@07 Divalproex Sodium [Depakote] 500 mg PO BID@699,1999 ARIPiprazole [Abilify] 10 mg PO BID@699,1999 Primidone [Mysoline] 50 mg PO DAILY@07 Tamsulosin [Flomax] 0.4 mg PO DAILY@1600 Potassium Chloride Oral Liquid 20 meq PO DAILY@07 Magnesium Oxide [Mag-Ox] 400 mg PO DAILY@07 Furosemide [Lasix] 20 mg PO DAILY@07 LORazepam [Ativan] 0.5 mg PO DAILY@0700 Escitalopram [Lexapro] 20 mg PO DAILY@0700 Discharge Medication List Aspirin EC [Ecotrin Low Dose] 81 mg PO DAILY@69907/31/21 [History] Atorvastatin Calcium [Lipitor] 10 mg PO HS@199907/31/21 [History] Carbidopa-Levodopa 10-100 mg [Sinemet 10-100 mg] 1 tab PO TID@699,1599,199907/31/21 [History] Furosemide [Lasix] 20 mg PO DAILY@69903/27/22 [History] Magnesium Oxide [Mag-Ox] 400 mg PO DAILY@69903/27/22 [History] Pantoprazole [Protonix] 40 mg PO DAILY@69903/27/22 [History] Potassium Chloride Oral Liquid 20 meq PO DAILY@69903/27/22 [History] Primidone [Mysoline] 50 mg PO DAILY@69903/27/22 [History] Tamsulosin [Flomax] 0.4 mg PO DAILY@1600 03/27/22 [History] ARIPiprazole [Abilify] 10 mg PO BID@699,199907/22/22 [History] Divalproex Sodium [Depakote] 500 mg PO BID@07/22/22 [History] Escitalopram [Lexapro] 20 mg PO DAILY@69907/22/22 [History] LORazepam [Ativan] 0.5 mg PO DAILY@69907/22/22 [History] Cyanocobalamin (Vitamin B-12) [Vitamin B-12] 1,000 mcg PO DAILY 30 Days #30 tab 07/24/22 [Rx] Ferrous Sulfate [Feosol] 325 mg PO TID 30 Days #90 tab 07/24/22 [Rx] Follow up Appointment(s)/Referral(s): Robles Valenzuela DO [REFERRING] - 1-2 days Activity/Diet/Wound Care/Special Instructions: At discharge patient will return to [facility]. Per [facility] will transport patient. Please call them when discharge is placed so they can arrange transport: [phone] or [phone]
[2022-07-24 12:11] LABS: Basophils # (A) 0.04 X 10*3/uL (0.00-0.10); Basophils % (A) 0.9 %; Eosinophils # (A) 0.11 X 10*3/uL (0.04-0.35); Eosinophils % (A) 2.6 %; HGB 10.3 g/dL (13.0-17.0); Immature Grans, Automated 0.2 %; Lymphocytes # (A) 0.85 X 10*3/uL (0.90-5.00); Lymphocytes % (A) 19.7 %; MCH 29.4 pg (27.0-32.0); MCHC 33.2 g/dL (32.0-37.0); MCV 88.6 fL (80.0-97.0); Mean Platelet Volume 10.6 fL (9.5-12.2); Monocytes # (A) 0.19 X 10*3/uL (0.20-1.00); Monocytes % (A) 4.4 %; NRBC Per 100 WBC 0 /100 WBCS (0.0-0.0); Neutrophils # (A) 3.11 X 10*3/uL (1.80-7.70); Neutrophils % (A) 72.2 %; Platelet Count 150 X 10*3/uL (140-440); RDW 13.4 % (11.5-14.5); WBC 4.31 X 10*3/uL (4.50-10.00)
[2022-07-25 11:35] LABS: Free Kappa Lt Chain Qnt, Serum 3.45 mg/dL (0.33-1.94); Free Lambda Lt Chain Qnt, Seru 1.82 mg/dL (0.57-2.63)
[2022-07-25 14:11] LABS: Albumin 3.52 g/dL (3.80-4.90); Gamma Globulin 0.95 g/dL (0.70-1.50)
[2022-07-26 07:47] LABS: Methylmalonic Acid 0.32 umol/L (<0.40)
== END 2022-07-24 12:55 ==
LOC: EC 13:39 → 6NMEDSUR 15:14
PROVIDERS: ADMIT Family Medicine; ATTEND Family Medicine
DX: R55 Syncope and collapse (principal); I95.9 Hypotension, unspecified; E86.0 Dehydration; R00.1 Bradycardia, unspecified; F84.0 Autistic disorder; D69.6 Thrombocytopenia, unspecified; D61.818 Other pancytopenia; E11.22 Type 2 diabetes mellitus with diabetic chronic kidney disease; I12.9 Hypertensive chronic kidney disease with stage 1 through stage 4 chronic kidney disease, or unspecified chronic kidney disease; N18.30 Chronic kidney disease, stage 3 unspecified; Z86.73 Personal history of transient ischemic attack (TIA), and cerebral infarction without residual deficits; Z79.82 Long term (current) use of aspirin; Z79.899 Other long term (current) drug therapy
CPT/HCPCS: 96360; 99285; 36415; 95816; 93005; 83921; 85379; 80164; 82747; 80053; 84443; 82607; 82728; 82525; 82550; 83540; 83550; 83605; 83690; 83735; 84484; 85025 ×3; 86431; 81001; 84165; 86038; 86334; 83883; 71045; 74018; 70450; G0378 ×3

== ENCOUNTER 2022-12-24 07:35 | Observation (INO) | payer MEDICARE, OTHER ==
[2022-12-24] MEDS ORDERED: SODIUM CHLORIDE 0.9% 500 ML 500 ML IV STA (07:47)
--- NOTE | 2022-12-24 07:50 | ED ---
General Adult HPI - General Chief complaint: Neuro Symptoms/Deficit Stated complaint: Possible stroke Time Seen by Provider: 12/24/22 07:41 Source: patient, EMS, RN notes reviewed, old records reviewed Mode of arrival: EMS Limitations: altered mental status - History of Present Illness Initial comments: 52-year-old male presents from longterm for evaluation of facial droop. This was reported by staff at the longterm and the side was not noted. The patient had resolved symptoms during transport by EMS. He does have previous history of TIA. He has history of Parkinson's and is currently at baseline mental status. Patient was able to stand for paramedics. He has no complaints himself and will answer very simple questions. His speech is mostly repetitive. There's been no reported vomiting. No fever. - Related Data Home Medications Medication Instructions Recorded Confirmed Atorvastatin Calcium [Lipitor] 10 mg PO DAILY@159907/31/21 12/24/22 Carbidopa-Levodopa 10-100 mg 1 tab PO TID@0800,1599,199907/31/21 12/24/22 [Sinemet 10-100 mg] Furosemide [Lasix] 20 mg PO DAILY@79903/27/22 12/24/22 Magnesium Oxide [Mag-Ox] 400 mg PO DAILY@79903/27/22 12/24/22 Pantoprazole [Protonix] 40 mg PO DAILY@79903/27/22 12/24/22 Potassium Chloride Oral Liquid 20 meq PO DAILY@79903/27/22 12/24/22 Primidone [Mysoline] 50 mg PO DAILY@79903/27/22 12/24/22 Tamsulosin [Flomax] 0.4 mg PO DAILY@159903/27/22 12/24/22 ARIPiprazole [Abilify] 10 mg PO BID@0807/22/22 12/24/22 Divalproex Sodium [Depakote] 500 mg PO BID@799,199907/22/22 12/24/22 Escitalopram [Lexapro] 20 mg PO DAILY@0800 07/22/22 12/24/22 LORazepam [Ativan] 0.5 mg PO DAILY@0800 07/22/22 12/24/22 Cholecalciferol [Vitamin D3 (25 50 mcg PO DAILY@79912/24/22 12/24/22 Mcg = 1000 Iu)] Cyanocobalamin (Vitamin B-12) 1,000 mcg PO HS 12/24/22 12/24/22 [Vitamin B-12] Ferrous Sulfate [Feosol] 325 mg PO TID@0800,1600,199912/24/22 12/24/22 Allergies Allergy/AdvReac Type Severity Reaction Status Date / Time No Known Allergies Allergy Verified 12/24/22 08:32 Review of Systems ROS Statement: Those systems with pertinent positive or pertinent negative responses have been documented in the HPI. ROS Other: All systems not noted in ROS Statement are negative. Past Medical History Past Medical History: CVA/TIA, Diabetes Mellitus, Hypertension Additional Past Medical History / Comment(s): Pt recently admitted to [facility] on 02/20/20 with R intrinsic hand muscle weakness/possible L vertebral artery stenosis/thrombocytopenia. Other hx: Diet controlled diabetes, autism, intellectual impairment History of Any Multi-Drug Resistant Organisms: None Reported Past Surgical History: No Surgical Hx Reported Additional Past Surgical History / Comment(s): BROTHER STATED NO KNOWN SX, partial gatrectomy October 2021, Past Anesthesia/Blood Transfusion Reactions: Unable to Obtain Additional Past Anesthesia/Blood Transfusion Reaction / Comment(s): NEVER HAD ANY SX Past Psychological History: No Psychological Hx Reported Smoking Status: Never smoker Past Alcohol Use History: None Reported Past Drug Use History: None Reported - Past Family History Father Family Medical History: Cancer Additional Family Medical History / Comment(s): COLON CANCER Mother Family Medical History: Cancer, Diabetes Mellitus, Hypertension Additional Family Medical History / Comment(s): OBESITY, FROM METASTATIC KINDEY CANCER General Exam Limitations: altered mental status General appearance: alert, in no apparent distress Head exam: Present: atraumatic, normocephalic Eye exam: Present: normal appearance, PERRL ENT exam: Present: normal exam Neck exam: Present: normal inspection. Absent: tenderness, meningismus Respiratory exam: Present: normal lung sounds bilaterally. Absent: respiratory distress, wheezes Cardiovascular Exam: Present: regular rate, normal rhythm GI/Abdominal exam: Present: soft. Absent: distended, tenderness, guarding Extremities exam: Present: normal inspection, normal capillary refill Neurological exam: Present: alert, CN II-XII intact, other (No focal findings, no facial droop). Absent: oriented X3, motor sensory deficit Psychiatric exam: Present: normal affect, normal mood Skin exam: Present: warm, dry, intact Course Vital Signs 12/24/22 07:39 Temperature 97.4 F L Pulse Rate 72 Respiratory 18 Rate Blood Pressure 125/71 O2 Sat by Pulse 100 Oximetry EKG Findings - EKG Comments: EKG Findings:: EK rate, VA interval 142, QRS duration 98, QTC 4:[address] segment elevation. Artifact in V3. Medical Decision Making - Medical Decision Making Was pt. sent in by a medical professional or institution (, PA, FLOAT TENDER, urgent care, hospital, or retirement...) When possible be specific @ -No Did you speak to anyone other than the patient for history (EMS, parent, family, police, friend...)? What history was obtained from this source @ -EMS, and caregiver from the longterm where he resides Did you review nursing and triage notes (agree or disagree)? Why? @ -I reviewed and agree with nursing and triage notes Were old charts reviewed (outside hosp., previous admission, EMS record, old EKG, old radiological studies, urgent care reports/EKG's, retirement records)? Report findings @ -Review previous surgical history and previous admission notes Differential Diagnosis (chest pain, altered mental status, abdominal pain women, abdominal pain men, vaginal bleeding, weakness, fever, dyspnea, syncope, headache, dizziness, GI bleed, back pain, seizure, CVA, palpatations, mental health, musculoskeletal)? @ -Differential CVA Ischemic stroke, hemorrhagic stroke, brain tumor, atypical migraine, Wernicke's encephalopathy, seizure, multiple sclerosis, meningitis, encephalitis, hypoglycemia, Guillain-Bernabe, electrolytes disturbance, myasthenia gravis.... This is not meant to be an all-inclusive list EKG interpreted by me (3pts min.). @ -As above X-rays interpreted by me (1pt min.). @ -None done CT interpreted by me (1pt min.). @ -CT negative for intracranial hemorrhage or mass effect U/S interpreted by me (1pt. min.). @ -None done What testing was considered but not performed or refused? (CT, X-rays, U/S, labs)? Why? @ -None What meds were considered but not given or refused? Why? @ -None Did you discuss the management of the patient with other professionals (leslie parrish i.e. , JAQUELIN, FLOAT TENDER, lab, RT, psych nurse, dialysis social worker, ad operations coordinator, teacher, first aid officer, behavioral health case manager)? Give summary @ -[Dr. Boyd Was smoking cessation discussed for >3mins.? @ -No Was critical care preformed (if so, how long)? @ -No Were there social determinants of health that impacted care today? How? (Homelessness, low income, unemployed, alcoholism, drug addiction, tra nsportation, low edu. Level, literacy, decrease access to med. care, prison, rehab)? @ -No Was there de-escalation of care discussed even if they declined (Discuss DNR or withdrawal of care, Hospice)? DNR status @ -No What co-morbidities impacted this encounter? (DM, HTN, Smoking, COPD, CAD, Cancer, CVA, ARF, Chemo, Hep., AIDS, mental health diagnosis, sleep apnea, morbid obesity)? @ -Previous CVA, autism Was patient admitted / discharged? Hospital course, mention meds given and rout e, prescriptions, significant lab abnormalities, going to OR and other pertinent info. @ -52-year-old male who had presented with facial droop. Further history obtained from the staff member at the longterm indicates that the patient had right-sided weakness both arm and leg. This was resolved prior to arrival. His strength remains normal and is at baseline mental status exam while in the emergency department. Head CT is negative for intracranial hemorrhage or mass effect. He has a chronic mild anemia which is improved from prior. Patient is difficult to assess. He will be observed overnight for TIA with neurology on consult. Case discussed with sound physician group. Undiagnosed new problem with uncertain prognosis? @ -No Drug Therapy requiring intensive monitoring for toxicity (Heparin, Nitro, Insulin, Cardizem)? @ -No Were any procedures done? @ -No Diagnosis/symptom? @ -TIA Acute, or Chronic, or Acute on Chronic? @ -acute Uncomplicated (without systemic symptoms) or Complicated (systemic symptoms)? @ -complicated Side effects of treatment? @ -No Exacerbation, Progression, or Severe Exacerbation? @ -No Poses a threat to life or bodily function? How? (Chest pain, USA, OR, pneumonia, PE, COPD, DKA, ARF, appy, cholecystitis, CVA, Diverticulitis, Homicidal, Suicidal, threat to staff... and all critical care pts) @ -No - Lab Data Result diagrams: 12/24/22 07:50 12/24/22 07:50 Lab Results 12/24/22 12/24/22 Range/Units 07:50 07:50 WBC 4.5 (3.8-10.6) k/uL RBC 3.65 L (4.30-5.90) m/uL Hgb 10.7 L (13.0-17.5) gm/dL Hct 32.5 L (39.0-53.0) % MCV 89.1 (80.0-100.0) fL MCH 29.4 (25.0-35.0) pg MCHC 32.9 (31.0-37.0) g/dL RDW 13.8 (11.5-15.5) % Plt Count 128 L (150-450) k/uL MPV 7.9 Neutrophils % 80 % Lymphocytes % 15 % Monocytes % 4 % Eosinophils % 1 % Basophils % 0 % Neutrophils # 3.6 (1.3-7.7) k/uL Lymphocytes # 0.7 L (1.0-4.8) k/uL Monocytes # 0.2 (0-1.0) k/uL Eosinophils # 0.0 (0-0.7) k/uL Basophils # 0.0 (0-0.2) k/uL Sodium 139 (137-145) mmol/L Potassium 3.8 (3.5-5.1) mmol/L Chloride 102 (98-107) mmol/L Carbon Dioxide 30 (22-30) mmol/L Anion Gap 7 mmol/L BUN 22 H (9-20) mg/dL Creatinine 0.94 (0.66-1.25) mg/dL Est GFR (CKD-EPI)AfAm >90 (>60 ml/min/1.73 sqM) Est GFR (CKD-EPI)NonAf >90 (>60 ml/min/1.73 sqM) Glucose 114 H (74-99) mg/dL Calcium 8.8 (8.4-10.2) mg/dL Total Bilirubin 0.4 (0.2-1.3) mg/dL AST 20 (17-59) U/L ALT 15 (4-49) U/L Alkaline Phosphatase 62 (38-126) U/L Total Protein 6.5 (6.3-8.2) g/dL Albumin 3.3 L (3.5-5.0) g/dL Disposition Clinical Impression: Transient cerebral ischemia Disposition: ADMITTED IP TO THIS HOSP Condition: Stable Is patient prescribed a controlled substance at d/c from ED?: No Referrals: Amanuel Tapia MD [Primary Care Provider] - 1-2 days Time of Disposition: 09:42
[2022-12-24 08:02] LABS: Basophils % (A) 0 %; Eosinophils % (A) 1 %; HCT 32.5 % (39.0-53.0); HGB 10.7 gm/dL (13.0-17.5); Lymphocytes # (A) 0.7 k/uL (1.0-4.8); Lymphocytes % (A) 15 %; MCH 29.4 pg (25.0-35.0); MCHC 32.9 g/dL (31.0-37.0); MCV 89.1 fL (80.0-100.0); Mean Platelet Volume 7.9; Monocytes # (A) 0.2 k/uL (0-1.0); Monocytes % (A) 4 %; Neutrophils # (A) 3.6 k/uL (1.3-7.7); Neutrophils % (A) 80 %; Platelet Count 128 k/uL (150-450); RBC 3.65 m/uL (4.30-5.90); RDW 13.8 % (11.5-15.5); WBC 4.5 k/uL (3.8-10.6)
[2022-12-24 08:17] LABS: ALT 15 U/L (4-49); AST 20 U/L (17-59); African American GFR (CKD) >90 (>60 ml/min/1.73 sqM); Albumin 3.3 g/dL (3.5-5.0); Alkaline Phosphatase 62 U/L (38-126); Anion Gap 7 mmol/L; Blood Urea Nitrogen 22 mg/dL (9-20); Calcium 8.8 mg/dL (8.4-10.2); Carbon Dioxide 30 mmol/L (22-30); Chloride 102 mmol/L (98-107); Glucose 114 mg/dL (74-99); Non-African American GFR(CKD) >90 (>60 ml/min/1.73 sqM); Potassium 3.8 mmol/L (3.5-5.1); Sodium 139 mmol/L (137-145); Total Bilirubin 0.4 mg/dL (0.2-1.3); Total Protein 6.5 g/dL (6.3-8.2)
--- NOTE | 2022-12-24 09:04 | CT ---
EXAMINATION TYPE: CT brain wo con CT DLP: 1159.4 mGycm, Automated exposure control for dose reduction was used. DATE OF EXAM: 12/24/2022 8:45 AM COMPARISON: 07/22/2022 CLINICAL INDICATION:Male, 52 years old with history of Neuro deficit, acute, stroke suspected, Right sided facial droop TECHNIQUE: Brain: Axial CT images of the brain were obtained with coronal and sagittal reformats created and rev iewed. Contrast used: None. Oral contrast used: None. FINDINGS: Brain: Extra-axial spaces: No abnormal extra-axial fluid collections. Ventricular system: Within normal limits Cerebral parenchyma: No acute intraparenchymal hemorrhage or mass effect. The lyle-white junction is well differentiated. Cerebellum: Unremarkable. Mass effect: No evidence of midline shift. Intracranial vasculature: unremarkable Soft tissues: Normal. Calvarium/osseous structures: No depressed skull fracture. Paranasal sinuses and mastoid air cells: Mild scattered paranasal sinus disease. Visualized orbits: Orbital contents are intact. IMPRESSION: No acute intracranial process.
[2022-12-24] MEDS ORDERED: ACETAMINOPHEN TAB 325 MG TAB PO PRN (09:33)
[2022-12-24] MEDS ORDERED: NALOXONE 0.4 MG/ML 1 ML VIAL IV PRN (09:33)
[2022-12-24] MEDS ORDERED: ONDANSETRON 4 MG/2 ML VIAL IVP PRN (09:33)
[2022-12-24] MEDS ORDERED: PANTOPRAZOLE 40 MG/10 ML VIAL IV SCH (09:45)
[2022-12-24] MEDS: SODIUM CHLORIDE 0.9% 1,000 ML IV SCH (10:13)
[2022-12-24] MEDS ORDERED: bisacodyL 5 MG TABLET.DR PO PRN (12:15)
[2022-12-24] MEDS ORDERED: MELATONIN 3 MG TABLET PO PRN (12:15)
--- NOTE | 2022-12-24 13:12 | US ---
EXAMINATION TYPE: US carotid duplex BILAT DATE OF EXAM: 12/24/2022 COMPARISON: [facility] 2019 CLINICAL INDICATION: Male, 52 years old with history of Stenosis; Stenosis. TECHNIQUE: Carotid duplex ultrasound examination. Indirect Doppler criteria was utilized. FINDINGS: EXAM MEASUREMENTS: RIGHT: Peak Systolic Velocity (PSV) cm/sec ----- Right CCA: 85.3 ----- Right ICA: 95.2 ----- Right ECA: 99.6 ICA/CCA ratio: 1.1 RIGHT: End Diastole cm/sec ----- Right CCA: 19.3 ----- Right ICA: 17.1 ----- Right ECA: 8.4 LEFT: Peak Systolic Velocity (PSV) cm/sec ----- Left CCA: 87.5 ----- Left ICA: 93.0 ----- Left ECA: 94.1 ICA/CCA ratio: 1.1 LEFT: End Diastole cm/sec ----- Left CCA: 16.0 ----- Left ICA: 12.8 ----- Left ECA: 7.3 VERTEBRALS (direction of flow): Right Vertebral: Antegrade Left Vertebral: Antegrade Rhythm: Normal SALES DEVELOPMENT COORDINATOR NOTES: No elevated velocities at this time. Minimal bilateral plaque IMPRESSION: No significant hemodynamic stenosis. Criteria for Assigning % of Stenosis / Diameter reduction (Estimation based on the indirect measurements of the internal carotid artery velocities (ICA PSV). 1. Normal (no stenosis)=ICA PSV < 125 cm/s: ratio < 2.0: ICA EDV<40 cm/s. 2. Less than 50% stenosis=ICA PSV < 125 cm/s: ratio < 2.0: ICA EDV<40 cm/s. 3. 50 to 69% stenosis=ICA PSV of 125 to 230 cm/s: ration 2.0 ? 4.0: ICA EDV 40-100 cm/s. 4. Greater than 70% stenosis to near occlusion= ICA PSV > 230 cm/s: ratio > 4.0: ICA EDV > 100 cm/s. 5. Near occlusion= ICA PSV velocities may be low or undetectable: variable ratio and ICA EDV. 6. Total occlusion=unable to detect flow.
--- NOTE | 2022-12-24 13:24 | P.HPIM ---
History of Present Illness H&P Date: 12/24/22 Patient is a 52-year-old male with a history of intellectual disability and autism disorder, prolonged hospital stay in November 2021 for ischemic bowel, orthostatic hypotension, prior TIA, diabetes, hypertension who presented to the emergency department with concerns for right-sided facial droop. On arrival to the ER his vital signs within normal limits. Hemoglobin was 10.7 which is stable from July 2022, platelets 128, BUN 22, and glucose 114. The ER he underwent a CT head which showed no acute intracranial. Patient is a poor historian. His brother is at bedside and reports of the nursing home called him concerned that he was having right-sided facial drooping. His brother states that they were concerned about this in the past when he was hospitalized however the neurologist did not appreciate any facial droop at that time. Currently the brother does not appreciate any facial droop. Patient seen and examined at bedside. He complains of some abdominal pain, but is currently eating chips without difficulty. He does repeat the word "yeah" multiple times. Vital signs reviewed General: nontoxic, no distress, appears at stated age Derm: warm, dry Eyes: EOMI, no lid lag, anicteric sclera, pupils equal round reactive to light ENT: Nose and ears atraumatic, no thrush, no pharyngeal erythema Cardiovascular: S1S2 reg, no murmur, positive posterior tibial pulse bilateral, no edema, capillary refill less than 2 seconds Lungs: clear to auscultation bilateral, no rhonchi, no rales, no wheeze, no accessory muscle use Abdominal: soft, tender to palpation epigastric, no guarding, no appreciable organomegaly, normal bowel sounds Ext: no gross muscle atrophy, muscle strength 5 out of 5 in all 4 extremities, no contractures Neuro: Formal neuro testing is difficult to perform due to patient's cognition. Patient is eating chips and has normal mastication and facial symmetry, photo finisher strength is equal bilateral, foot tapping is slow but equal bilaterally, light touch intact in all 4 extremities, extraocular motion intact, no tongue deviation Psych: Alert, oriented to self and not being at home, appropriate affect Assessment: Right-sided facial droop -Possible TIA versus post ictal state considered be less likely -Workup from prior hospitalization 02/19/23 TIA was reviewed. At that point in time he underwent an CTA of the head and neck which showed stenosis of the origin of the left vertebral artery which was not excluded, no flow-limiting lesions in bilateral carotids and a normal igiugig of Alexander. -MRI brain at that time showed no evidence of recent infarct but did show some age-related atrophy, C-spine showed slight scoliosis -MRA of the head and neck at that time was severely limited due to motion artifact but left vertebral artery diminutive in size which could be congenital Possible abdominal pain Diabetes mellitus type 2, not requiring any medications Dyslipidemia THrombocytopenia, mild Anemia, chronic and at baseline Cognitive impairment Autism spectrum disorder with mood disturbances Imaging: EKG is reviewed by myself reveals sinus rhythm at a rate of [address]-T wave changes, normal axis, and normal intervals Data Review: Labs remarkable for Hemoglobin 10.7 which is stable from July 2022, platelets 128, BUN 22, and glucose 114. Plan: -Neuro checks, telemetry, echo, carotid Dopplers -Consult neurology -Check lipid profile and hemoglobin A1c -PT/OT/speech -Resume home medications including Abilify 10 mg twice daily, Flomax 0.4 mg d aily, Protonix 40 mg daily, Lasix 20 mg daily, Depakote 500 mg twice daily, primidone 50 mg daily, Lipitor 10 mg daily, Ativan 0.5 mg daily, Lexapro 20 mg daily, liquid potassium -Serial abdominal exams to rule out abdominal etiology. Discussed with nurse will perform every 4 hours 2 - Repeat labs in AM to monitor thrombocytopenia and elevated BUN. The patient is placed in observation with an anticipated less than 2 midnight stay for evaluation of facial droop.. Surrogate decision-maker: Brother CODE STATUS:Full Anticipated discharge date: in AM Anticipated discharge place: Return to nursing home This dictation was prepared using [employer] voice recognition software. Though every attempt is made to correct errors during during dictation some may still exist. Past Medical History Past Medical History: CVA/TIA, Diabetes Mellitus, Hypertension Additional Past Medical History / Comment(s): Pt recently admitted to [facility] on 02/20/20 with R intrinsic hand muscle weakness/possible L vertebral artery sten osis/thrombocytopenia. Ischemic Bowel, Vent dependent respiratory failure, Other hx: Diet controlled diabetes, autism, intellectual impairment History of Any Multi-Drug Resistant Organisms: None Reported Past Surgical History: No Surgical Hx Reported Additional Past Surgical History / Comment(s): partial gastrectomy, Bowel ressection, JEANINE, abdominal abscess drainage due to ischemic bowel October 2021 Past Anesthesia/Blood Transfusion Reactions: Unable to Obtain Additional Past Anesthesia/Blood Transfusion Reaction / Comment(s): NEVER HAD ANY SX Past Psychological History: No Psychological Hx Reported Additional Psychological History / Comment(s): Pt resides at [facility]. He has autism and intellectual impairment. He likes to write-he likes 4 blank sheets of paper and a black pen, his favorite TV channel is 7. He likes to look through calenders and read the paper. He likes everything in 4s. He takes pills whole in applesauce. He can wash his facef with direction and dress himself, he can tie his shoes. He likes dinner at 5-530. He needs everything to be cut into bite size pieces. He is contnent of urine and stool. He goes to bed about 8-830 and sleeps with a nightlight on. He likes to listen to the radio-sports or country music. He does not show pain. Smoking Status: Never smoker Past Alcohol Use History: None Reported Past Drug Use History: None Reported - Past Family History Father Family Medical History: Cancer Additional Family Medical History / Comment(s): COLON CANCER Mother Family Medical History: Cancer, Diabetes Mellitus, Hypertension Additional Family Medical History / Comment(s): OBESITY, FROM METASTATIC KINDEY CANCER Medications and Allergies Home Medications Medication Instructions Recorded Confirmed Type Atorvastatin Calcium [Lipitor] 10 mg PO DAILY@1600 07/31/21 12/24/22 History Carbidopa-Levodopa 10-100 mg 1 tab PO TID@0800,1599,199907/31/21 12/24/22 History [Sinemet 10-100 mg] Furosemide [Lasix] 20 mg PO DAILY@79903/27/22 12/24/22 History Magnesium Oxide [Mag-Ox] 400 mg PO DAILY@79903/27/22 12/24/22 History Pantoprazole [Protonix] 40 mg PO DAILY@79903/27/22 12/24/22 History Potassium Chloride Oral Liquid 20 meq PO DAILY@79903/27/22 12/24/22 History Primidone [Mysoline] 50 mg PO DAILY@79903/27/22 12/24/22 History Tamsulosin [Flomax] 0.4 mg PO DAILY@1600 03/27/22 12/24/22 History ARIPiprazole [Abilify] 10 mg PO BID@799,199907/22/22 12/24/22 History Divalproex Sodium [Depakote] 500 mg PO BID@799,199907/22/22 12/24/22 History Escitalopram [Lexapro] 20 mg PO DAILY@0807/22/22 12/24/22 History LORazepam [Ativan] 0.5 mg PO DAILY@0807/22/22 12/24/22 History Cholecalciferol [Vitamin D3 (25 50 mcg PO DAILY@79912/24/22 12/24/22 History Mcg = 1000 Iu)] Cyanocobalamin (Vitamin B-12) 1,000 mcg PO HS 12/24/22 12/24/22 History [Vitamin B-12] Ferrous Sulfate [Feosol] 325 mg PO TID@0800,1599,199912/24/22 12/24/22 History Allergies Allergy/AdvReac Type Severity Reaction Status Date / Time No Known Allergies Allergy Verified 12/24/22 08:32 Physical Exam Osteopathic Statement: *. No significant issues noted on an osteopathic structural exam other than those noted in the History and Physical/Consult. Vitals: Vital Signs Temp Pulse Pulse Resp BP BP BP 12/24/22 12:09 98.2 F 85 19 116/62 12/24/22 11:39 98 F 49 L 18 117/55 12/24/22 11:00 90 18 124/78 12/24/22 09:02 88 18 126/74 12/24/22 07:39 97.4 F L 72 18 125/71 Pulse Ox 12/24/22 12:09 99 12/24/22 11:39 100 12/24/22 11:00 99 12/24/22 09:02 99 12/24/22 07:39 100 Intake and Output 12/23/22 12/24/22 12/24/22 22:59 06:59 14:59 Other: Weight 65.771 kg Results CBC & Chem 7: 12/24/22 07:50 12/24/22 07:50 Labs: Abnormal Lab Results - Last 24 Hours (Table) 04/26/23 04/26/23 Range/Units 07:50 07:50 RBC 3.65 L (4.30-5.90) m/uL Hgb 10.7 L (13.0-17.5) gm/dL Hct 32.5 L (39.0-53.0) % Plt Count 128 L (150-450) k/uL Lymphocytes # 0.7 L (1.0-4.8) k/uL BUN 22 H (9-20) mg/dL Glucose 114 H (74-99) mg/dL Albumin 3.3 L (3.5-5.0) g/dL Thrombosis Risk Factor Assmnt - Choose All That Apply Each Factor Represents 1 point: Age 41-60 years Thrombosis Risk Factor Assessment Total Risk Factor Score: 1 Thrombosis Risk Factor Assessment Level: Low Risk
--- NOTE | 2022-12-24 14:28 | P.CNNES ---
History of Present Illness Consult date: 12/24/22 Requesting physician: Alex Cooley Reason for Consult: TIA History of Present Illness: This is a 52-year-old gentleman with history of autistic spectrum disorder, the developmental delay, syncope, positive orthostatic hypotension, diabetes mellitus, hypoglycemia, hypertensino, prolonged hospital stay in November 2021 for ischemic bowel who presented emergency department because of transient facial droop. History was obtained from the patient's brother was at bedside as well as medical record. According to the patient's brother and he stated that he was notified that he had right facial droop undetermined duration but has resolved. He denies been notified that he had any drooling, a jerk in of any extremity, urinary bowel incontinence at. According to the primary team and no seizure- like episode other than the facial droop was noted at the nursing facility. According to the patient's brother he feels the patient is back to baseline now. She is not on any antiplatelets at home. He continues to be on Depakote 500 mg 1 tablet twice a day for his mood. Of note patient was seen by our team members in the past a few times and the last seen was on July 2022 for an episode of prolonged loss cons ciousness/syncope without reported seizure-like activity and he was hypotensive with lactic acid is normal in blood pressure at that time was 70-80. It did not appear like a seizure. He had a syncope in October 2021 and no seizure. He had EEG done in the past which was normal and a repeat EEG again so initially he had one in October and the repeat it was in July and both were normal. He is on Depakote 500 mg 1 tablet twice a day for his mood. It seems that in the past he had positive orthostatic vitals. Please refer to our notes for further details. Also he was seen in 01/2020 Workup from prior hospitalization 02/19/23 TIA was reviewed. 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 Some other workup during his hospital visit consisted of: Vitals seems to be within normal limits. Glucose is 114, creatinine, sodium, calcium 8 seen ALT are within normal limits. CT of the brain is reported as no acute intracranial process. I personally reviewed the CT agree with the report. Carotid duplex is reported as no significant hemodynamic stenosis. No IV tpa since patient's symptoms has resolved and Review of Systems Review of system: The 12 point system was reviewed and apparent positive and negative per HPI. Past Medical History Past Medical History: CVA/TIA, Diabetes Mellitus, Hypertension Additional Past Medical History / Comment(s): Pt recently admitted to [facility] on 02/20/20 with R intrinsic hand muscle weakness/possible L vertebral artery stenosis/thrombocytopenia. Ischemic Bowel, Vent dependent respiratory failure, Other hx: Diet controlled diabetes, autism, intellectual impairment History of Any Multi-Drug Resistant Organisms: None Reported Past Surgical History: No Surgical Hx Reported Additional Past Surgical History / Comment(s): partial gastrectomy, Bowel ressection, JEANINE, abdominal abscess drainage due to ischemic bowel October 2021 Past Anesthesia/Blood Transfusion Reactions: Unable to Obtain Additional Past Anesthesia/Blood Transfusion Reaction / Comment(s): NEVER HAD ANY SX Past Psychological History: No Psychological Hx Reported Additional Psychological History / Comment(s): Pt resides at [facility]. He has autism and intellectual impairment. He likes to write-he likes 4 blank sheets of paper and a black pen, his favorite TV channel is 7. He likes to look through calenders and read the paper. He likes everything in 4s. He takes pills whole in applesauce. He can wash his facef with direction and dress himself, he can tie his shoes. He likes dinner at 5-530. He needs everything to be cut into bite size pieces. He is contnent of urine and stool. He goes to bed about 8-830 and sleeps with a nightlight on. He likes to listen to the radio-sports or country music. He does not show pain. Smoking Status: Never smoker Past Alcohol Use History: None Reported Past Drug Use History: None Reported - Past Family History Father Family Medical History: Cancer Additional Family Medical History / Comment(s): COLON CANCER Mother Family Medical History: Cancer, Diabetes Mellitus, Hypertension Additional Family Medical History / Comment(s): OBESITY, FROM METASTATIC KINDEY CANCER Medications and Allergies Home Medications Medication Instructions Recorded Confirmed Type Atorvastatin Calcium [Lipitor] 10 mg PO DAILY@1600 07/31/21 12/24/22 History Carbidopa-Levodopa 10-100 mg 1 tab PO TID@0800,1599,199907/31/21 12/24/22 History [Sinemet 10-100 mg] Furosemide [Lasix] 20 mg PO DAILY@0803/27/22 12/24/22 History Magnesium Oxide [Mag-Ox] 400 mg PO DAILY@79903/27/22 12/24/22 History Pantoprazole [Protonix] 40 mg PO DAILY@79903/27/22 12/24/22 History Potassium Chloride Oral Liquid 20 meq PO DAILY@79903/27/22 12/24/22 History Primidone [Mysoline] 50 mg PO DAILY@0803/27/22 12/24/22 History Tamsulosin [Flomax] 0.4 mg PO DAILY@159903/27/22 12/24/22 History ARIPiprazole [Abilify] 10 mg PO BID@08,199907/22/22 12/24/22 History Divalproex Sodium [Depakote] 500 mg PO BID@08,199907/22/22 12/24/22 History Escitalopram [Lexapro] 20 mg PO DAILY@0800 07/22/22 12/24/22 History LORazepam [Ativan] 0.5 mg PO DAILY@0800 07/22/22 12/24/22 History Cholecalciferol [Vitamin D3 (25 50 mcg PO DAILY@79912/24/22 12/24/22 History Mcg = 1000 Iu)] Cyanocobalamin (Vitamin B-12) 1,000 mcg PO HS 12/24/22 12/24/22 History [Vitamin B-12] Ferrous Sulfate [Feosol] 325 mg PO TID@0800,1599,199912/24/22 12/24/22 History Allergies Allergy/AdvReac Type Severity Reaction Status Date / Time No Known Allergies Allergy Verified 12/24/22 08:32 Physical Examination - Vital Signs Vital Signs: Vital Signs Temp Pulse Pulse Resp BP BP BP 12/24/22 12:09 98.2 F 85 19 116/62 12/24/22 11:39 98 F 49 L 18 117/55 12/24/22 11:00 90 18 124/78 12/24/22 09:02 88 18 126/74 12/24/22 07:39 97.4 F L 72 18 125/71 Pulse Ox 12/24/22 12:09 99 12/24/22 11:39 100 12/24/22 11:00 99 12/24/22 09:02 99 12/24/22 07:39 100 Intake and Output 12/23/22 12/24/22 12/24/22 22:59 06:59 14:59 Other: Weight 65.771 kg GENERAL: The patient is sitting in a chair and is not in acute distress. CHEST: The heart rate is regular rate rhythm. LUNG: Clear to auscultation bilaterally no wheezing noted throughout. Not labored breathing. ABDOMEN/GI: Bowel sounds present in all 4 quadrants. No tenderness to palpation throughout. NEUROLOGICAL: Higher mental function: The patient is awake, alert, oriented to self and time. He stated he was at nursing facility. He would repeat himself (part of Autism). Patient is following simple commands. Language is limited. But does not appear aphasia and no neglect. Cranial nerves: The pupils are round, equal and reactive to light and accommodation. Visual barkley are full to confrontation throughout. Extraocular movement is intact no nystagmus is noted. Facial sensation is normal to touch throughout. The facial strength is normal throughout. \ Tongue is midline and moved [id number] without any difficulty. No dysarthria is noted. Shoulder shrug is normal bilaterally. Motor: The strength is limited because of his cooperation. Is lifting all extremities above gravity without focality. Normal tone and bulk. No resting tremor. Cerebellum: Normal finger to nose bilaterally. Sensation: Unable to assess. Reflexes (right/left): 2+ in uppers while lowers could not assess because of cooperation. Plantars are downgoing bilaterally. Results - Laboratory Findings CBC and BMP: 12/24/22 07:50 12/24/22 07:50 Abnormal Lab Findings: Abnormal Labs 12/24/22 12/24/22 07:50 07:50 RBC 3.65 L Hgb 10.7 L Hct 32.5 L Plt Count 128 L Lymphocytes # 0.7 L BUN 22 H Glucose 114 H Albumin 3.3 L Assessment and Plan Assessment: Transient right facial weakness: Unknown cause. Possible TIA vs post-ictal stated (seems unlikely) History of syncope and prolonged confusion/syncope with hypotensive episode. Two EEG's negative Autistic spectrum disorder Developed elderly Prolonged hospital stay in November 2021 for ischemic bowel s/p gastronomy Chronic thrombocytopenia Diabetes mellitus Hypotensive episodes in the past with positive orthostatic Plan: -I agree with the use of aspirin 325 daily. Patient brother was to hold off dual antiplatelet for now especially with his GI issues and thrombocytopenia. He was started on Lipitor 80mg qhs by PCP and decreased to Lipitor 40mg qhs. -I ordered a routine EEG. -Lipid panel, HbA1c and 2D echo are ordered and pending -Continue neuro checks -On cardiac monitoring -PT OT and DIGITAL PROJECT COORDINATOR are consulted -Patient is on carbidopa levodopa 10-100 1 tablet 3 times a day and Primidone 50mg daily as home medication and unsure why he is getting 2 different medication unsure if he has Parkinson's or central tremor. On examination it does not seem to the patient has Parkinson or essential tremor. Per the patient's son he is unsure which started this medication but it seems that he was a seen by different specialist as an outpatient and he was a feeling weak on 8 able to move the extremities and ALLERGIES are was started on those medication he thinks. I personally want to get more information regarding why he is he on primidone as well as sentiment since the Sinemet can cause hypotensive episode and he has hypotensive episodes in the past and can cause abdominal issues. -Ordered Depakote level. -We'll defer the rest of medical management to the primary team -For DVT prophylaxis start the patient on subcu heparin 5000 Hz every 12 hours The plan was discussed with the patient's brother was at bedside as well as primary attending and nurse. Thank you for the consultation.
--- NOTE | 2022-12-24 15:38 | CT ---
EXAMINATION TYPE: CT abdomen pelvis wo con CT DLP: 393.90 mGycm, Automated exposure control for dose reduction was used. DATE OF EXAM: 12/24/2022 3:28 PM COMPARISON: CT abdomen pelvis most recent from 11/12/2019 CLINICAL INDICATION:Male, 52 years old with history of abdominal pain, diarrhea; abdominal pain TECHNIQUE: Axial CT of the abdomen and pelvis. Sagittal and coronal reformats were created on a [employer] workstation. Contrast used: None Oral contrast used: without Oral Contrast FINDINGS: LOWER CHEST: Unremarkable ABDOMEN LIVER: Unremarkable GALLBLADDER AND BILE DUCTS: Unremarkable. PANCREAS: Unremarkable. SPLEEN: Unremarkable. ADRENAL GLANDS: Unremarkable. KIDNEYS AND URETERS: No evidence of hydronephrosis or renal calculus. The ureters are unremarkable. PELVIS BLADDER: Mild circumferential wall thickening up to 8 mm which could be partially due to underdistent ion. REPRODUCTIVE: Small bilateral hydroceles. ABDOMEN & PELVIS STOMACH AND BOWEL: No evidence of bowel obstruction. Postsurgical changes of gastric lumen. And small bowel with increased fecal burden at the anastomotic site PERITONEUM/RETROPERITONEUM: No evidence of pneumoperitoneum or free fluid. VASCULATURE: No evidence of aortic aneurysm. MUSCULOSKELETAL: No acute osseous abnormalities LYMPH NODES: No gross evidence for lymphadenopathy. SOFT TISSUE/ABDOMINAL WALL: Diffuse anasarca of the soft tissues. IMPRESSION: 1. Limit evaluation without IV or oral contrast, postsurgical changes of the bowel there is a large fecal burden at the anastomotic site which could represent some degree of fecal stasis. Otherwise no evidence for bowel obstruction or definitive acute intra-abdominal process. 2. Anasarca of the soft tissues. 3. Cholelithiasis. 4. No obstructive uropathy no evidence for
[2022-12-24] MEDS: FERROUS SULFATE 325 MG TAB PO SCH ×2 (15:52→19:45)
[2022-12-24] MEDS: CARBIDOPA-LEVODOPA 10-100 MG 1 EACH TAB PO SCH ×2 (15:52→19:45)
[2022-12-24] MEDS ORDERED: ATORVASTATIN 10 MG TAB PO SCH (16:00)
[2022-12-24] MEDS ORDERED: TAMSULOSIN 0.4 MG CAP.ER.24H PO SCH (16:00)
[2022-12-24] MEDS: ARIPiprazole 10 MG TAB PO SCH (19:45)
[2022-12-24] MEDS: DIVALPROEX 500 MG TABLET.DR PO SCH (19:45)
[2022-12-24] MEDS: HEPARIN SODIUM,PORCINE/PF 5,000 UNIT/0.5 ML SYRINGE SQ SCH (19:46)
[2022-12-24] MEDS ORDERED: ATORVASTATIN 80 MG TAB PO SCH (21:00)
[2022-12-24] MEDS ORDERED: ATORVASTATIN 40 MG TAB PO SCH (21:00)
[2022-12-24] MEDS ORDERED: CYANOCOBALAMIN 500 MCG TAB PO SCH (21:00)
--- NOTE | 2022-12-24 23:38 | EEG ---
ELECTROENCEPHALOGRAM REPORT CLINICAL HISTORY: This is a 52-year-old gentleman with history of autism and developmental delay, who presented from his nursing facility because of episode of right facial droop. The video EEG is obtained to evaluate for seizure epileptiform activity. RELEVANT MEDICATION: Ativan. EEG TYPE: A routine 21-channel EEG is performed with video using the 10/20 electrode placement system. DESCRIPTION: Wakefulness is only obtained. During awake state, the posterior-dominant rhythm consists of [id number] voltage of 9 to 10 hertz activity that is well modulated, well sustained. There is no physiological sleep architecture seen. There is no focal slowing. Interictal and ictal is none. ACTIVATION PROCEDURE: Photic stimulation and hyperventilation are not performed. CLINICAL INTERPRETATION: This is a normal routine EEG. There is no focal slowing, epileptiform discharge, or seizure on the EEG. Clinical correlation is recommended. HERMANN / JUAN ANTONIO: [id number] /
[2022-12-25] MEDS: SODIUM CHLORIDE 0.9% 1,000 ML IV SCH ×2 (00:14→11:34)
[2022-12-25] MEDS ORDERED: CHOLECALCIFEROL 25 MCG (1000 IU) TABLET PO SCH (08:00)
[2022-12-25] MEDS ORDERED: MAGNESIUM OXIDE 400 MG TAB PO SCH (08:00)
[2022-12-25] MEDS ORDERED: LORazepam 0.5 MG TAB PO SCH (08:00)
[2022-12-25] MEDS ORDERED: ESCITALOPRAM 20 MG TAB PO SCH (08:00)
[2022-12-25] MEDS ORDERED: POTASSIUM BICARBONATE/CIT AC 20 MEQ TABLET.EFF PO SCH (08:00)
[2022-12-25] MEDS ORDERED: PRIMIDONE 50 MG TAB PO SCH (08:00)
[2022-12-25] MEDS ORDERED: PANTOPRAZOLE 40 MG TABLET PO SCH (08:00)
[2022-12-25] MEDS ORDERED: FUROSEMIDE 20 MG TAB PO SCH (08:00)
[2022-12-25 08:03] LABS: Basophils % (A) 0 %; Eosinophils % (A) 1 %; HCT 31.8 % (39.0-53.0); HGB 10.3 gm/dL (13.0-17.5); Lymphocytes # (A) 0.9 k/uL (1.0-4.8); Lymphocytes % (A) 20 %; MCH 29.4 pg (25.0-35.0); MCHC 32.3 g/dL (31.0-37.0); MCV 91.1 fL (80.0-100.0); Mean Platelet Volume 7.9; Monocytes # (A) 0.3 k/uL (0-1.0); Monocytes % (A) 8 %; Neutrophils % (A) 70 %; Platelet Count 136 k/uL (150-450); RBC 3.49 m/uL (4.30-5.90); RDW 13.7 % (11.5-15.5); WBC 4.3 k/uL (3.8-10.6)
[2022-12-25 08:15] VITALS: RESP 16
[2022-12-25 08:17] VITALS: BP 117/72; PULSE 65; TEMP 98
[2022-12-25] MEDS ORDERED: ASPIRIN 325 MG TAB PO SCH (09:00)
[2022-12-25] MEDS: HEPARIN SODIUM,PORCINE/PF 5,000 UNIT/0.5 ML SYRINGE SQ SCH (09:33)
[2022-12-25] MEDS: DIVALPROEX 500 MG TABLET.DR PO SCH (09:33)
[2022-12-25] MEDS: CARBIDOPA-LEVODOPA 10-100 MG 1 EACH TAB PO SCH (09:33)
[2022-12-25] MEDS: ARIPiprazole 10 MG TAB PO SCH (09:34)
[2022-12-25] MEDS: FERROUS SULFATE 325 MG TAB PO SCH (09:34)
[2022-12-25 10:16] LABS: ALT 14 U/L (4-49); AST 19 U/L (17-59); African American GFR (CKD) >90 (>60 ml/min/1.73 sqM); Albumin 3.2 g/dL (3.5-5.0); Alkaline Phosphatase 66 U/L (38-126); Anion Gap 7 mmol/L; Blood Urea Nitrogen 24 mg/dL (9-20); Calcium 8.6 mg/dL (8.4-10.2); Carbon Dioxide 30 mmol/L (22-30); Chloride 102 mmol/L (98-107); Globulin 3.1 g/dL; Glucose 79 mg/dL (74-99); Non-African American GFR(CKD) 81 (>60 ml/min/1.73 sqM); Sodium 139 mmol/L (137-145); Total Bilirubin 0.3 mg/dL (0.2-1.3); Total Protein 6.3 g/dL (6.3-8.2)
--- NOTE | 2022-12-25 11:05 | P.PN ---
Subjective Progress Note Date: 12/25/22 The patient is seen at bedside and he feels he is doing well and he kept on repeating "want to go home". Objective - Vital Signs Vital signs: Vital Signs Temp 98 F 12/25/22 07:00 Pulse 65 12/25/22 07:00 Resp 16 12/25/22 07:00 BP 117/72 12/25/22 07:00 Pulse Ox 100 12/25/22 07:00 FiO2 Intake & Output 12/24/22 12/25/22 12/25/22 18:59 06:59 18:59 Intake Total 120 Balance 120 Weight 65.771 kg Intake: Oral 120 Other: # Voids 1 1 0 - Exam GENERAL: The patient is sitting in a chair and is not in acute distress. NEUROLOGICAL: Higher mental function: The patient is awake, alert, oriented to self and time. He would repeat himself (part of Autism). Patient is following simple commands. Language is limited. But does not appear aphasia and no neglect. Cranial nerves: The pupils are round, equal and reactive to light and a ccommodation. Visual barkley are full to confrontation throughout. Extraocular movement is intact no nystagmus is noted. Facial sensation is normal to touch throughout. The facial strength is normal throughout. \\ Tongue is midline and moved [id number] without any difficulty. No dysarthria is noted. Shoulder shrug is normal bilaterally. Motor: The strength is limited because of his cooperation. Is lifting all extremities above gravity without focality. Normal tone and bulk. No resting tremor. Cerebellum: Normal finger to nose bilaterally. Sensation: Unable to assess. Reflexes (right/left): 2+ in uppers while lowers could not assess because of cooperation. Plantars are downgoing bilaterally. Some other workup during his hospital visit consisted of: Glucose is 114, creatinine, sodium, calcium 8 seen ALT are within normal limits. Valproic acid level is 23.9 inches subtherapeutic normal supposed to be between 50-120. CT of the brain is reported as no acute intracranial process. I personally reviewed the CT agree with the report. Carotid duplex is reported as no significant hemodynamic stenosis. Routine EEG is normal. There is no focal slowing, epileptiform discharges or seizure on the EEG. - Labs CBC & Chem 7: 12/25/22 07:20 12/25/22 07:20 Labs: Abnormal Lab Results - Last 24 Hours (Table) 12/25/22 12/25/22 Range/Units 07:20 07:20 RBC 3.49 L (4.30-5.90) m/uL Hgb 10.3 L (13.0-17.5) gm/dL Hct 31.8 L (39.0-53.0) % Plt Count 136 L (150-450) k/uL Lymphocytes # 0.9 L (1.0-4.8) k/uL BUN 24 H (9-20) mg/dL Albumin 3.2 L (3.5-5.0) g/dL Assessment and Plan Assessment: Transient right facial weakness: Probable TIA. Cannot rule out post-ictal seizure but nothing from history supports it and EEG is normal. History of syncope and prolonged confusion/syncope with hypotensive episode. Two EEG's negative Autistic spectrum disorder Developed elderly Prolonged hospital stay in November 2021 for ischemic bowel s/p gastronomy Chronic thrombocytopenia Diabetes mellitus Hypotensive episodes in the past with positive orthostatic Plan: -Pending 2D echo and lipid panel. -I agree with the use of aspirin 325 daily. Patient brother was to hold off dual antiplatelet for now especially with his GI issues and thrombocytopenia. Continue Lipitor 40mg qhs. -Continue neuro checks -On cardiac monitoring -PT OT and HIV COUNSELOR are consulted -Patient is on carbidopa levodopa 10-100 1 tablet 3 times a day and Primidone 50mg daily as home medication and unsure why he is getting 2 different medication unsure if he has Parkinson's or central tremor. On examination it does not seem to the patient has Parkinson or essential tremor. Per the patient's son he is unsure which started this medication but it seems that he was a seen by different specialist as an outpatient and he was a feeling weak and unable to move the extremities and was started on those medication he th inks. I personally want to get more information regarding why he is he on primidone as well as sentiment since the Sinemet can cause hypotensive episode and he has hypotensive episodes in the past and can cause abdominal issues. He needs to follow-up with neurologist as outpatient for re-evaluation of ?Parkinson's or tremor in past and have his medication modified if needed. -We'll defer the rest of medical management to the primary team -For DVT prophylaxis On subcu heparin 5000 Hz every 12 hours The plan was discussed with the patient's primary team and nurse. Time with Patient: Less than 30
--- NOTE | 2022-12-25 12:49 | P.GSCN ---
History of Present Illness Consult date: 12/25/22 History of present illness: CHIEF COMPLAINT: Facial droop HISTORY OF PRESENT ILLNESS: This is a 52-year-old male who presented with facial droop and was diagnosed with a TIA. He is followed by neurology. Patient had computed tomography scan of abdomen and pelvis due to history of abdominal pain with diarrhea. Computed tomography scan findings are limited without IV or oral contrast. It did reveal postsurgical changes of the bowel with large fecal burden at the anastomotic site which could represent some degree of fecal stasis. Otherwise no evidence of bowel obstruction or definitive acute intra- abdominal process. Surgical consult placed for anastomotic narrowing. Patient lying in bed comfortably. Reports no pain. He is tolerating diet. Per nursing staff no bowel movements reported. Also no nausea or vomiting. No fever reported. Patient is status post partial gastrectomy for ischemic stomach on 10/30/2021 and then on 11/12/2021 history of free air with gastric leak and ischemic changes of the jejunum status post drainage of abdominal abscess and small bowel resection. PAST MEDICAL HISTORY: See below PAST SURGICAL HISTORY: See below MEDICATIONS: See below ALLERGIES: See below SOCIAL HISTORY: No illicit drug use. REVIEW OF SYSTEMS: CONSTITUTIONAL: Denies fever or chills. HEENT: Denies blurred vision, vision changes, or eye pain. Denies hemoptysis CARDIOVASCULAR: Denies chest pain or pressure. RESPIRATORY: No shortness of breath. GASTROINTESTINAL: See HPI for pertinent findings HEMATOLOGIC: Denies bleeding disorders. GENITOURINARY: Denies any blood in urine or increased urinary frequency. SKIN: Denies pruitis. Denies rash. PHYSICAL EXAM: VITAL SIGNS: Reviewed GENERAL: Well-developed in no acute distress. ABDOMEN: Soft. Nondistended. Nontender NEUROLOGIC: Awake and alert Rectal: Rectal tone intact. No evidence of stool in rectal vault LABORATORY DATA: WBC 4.3 Hgb 10.3 platelets 136 Sodium 139 k 4.0 creatinine 1.05 IMAGING: Computed tomography scan did reveal postsurgical changes of the bowel with large fecal burden at the anastomotic site which could represent some degree of fecal stasis. Otherwise no evidence of bowel obstruction or definitive acute intra- abdominal process. Anasarca of the soft tissues. Cholelithiasis. No obstructive uropathy ASSESSMENT: 1. Large fecal burden at anastomotic site PLAN: -Will give lactulose and soap rene enemas for fecal stasis -Add colace -Further recommendations forthcoming per surgeon Physician Legal Service Specialist note has been reviewed by physician. Signing provider agrees with the documented findings, assessment, and plan of care. I have personally seen and examined the patient, reviewed the SEDIMENT REMEDIATION CONSULTANT /PAs history, exam and MDM and agree with the assessment and plan as written. Based on total visit time, I have performed more than 50% of the visit. As above: CAT scan reviewed. Patient with some retained gastric contents. Mild dilation near anastomotic site which appears to be in the proximal jejunum from previous small bowel resection. Patient however eating well without nausea or vomiting today. He was subsequently discharged home with family. They were instructed to return if symptoms recur. Past Medical History Past Medical History: CVA/TIA, Diabetes Mellitus, Hypertension Additional Past Medical History / Comment(s): Pt recently admitted to [facility] on 02/20/20 with R intrinsic hand muscle weakness/possible L vertebral artery stenosis/thrombocytopenia. Ischemic Bowel, Vent dependent respiratory failure, Other hx: Diet controlled diabetes, autism, intellectual impairment History of Any Multi-Drug Resistant Organisms: None Reported Past Surgical History: No Surgical Hx Reported Additional Past Surgical History / Comment(s): partial gastrectomy, Bowel ressection, JEANINE, abdominal abscess drainage due to ischemic bowel October 2021 Past Anesthesia/Blood Transfusion Reactions: Unable to Obtain Additional Past Anesthesia/Blood Transfusion Reaction / Comm: NEVER HAD ANY SX Past Psychological History: No Psychological Hx Reported Additional Psychological History / Comment(s): Pt resides at [facility]. He has autism and intellectual impairment. He likes to write-he likes 4 blank sheets of paper and a black pen, his favorite TV channel is 7. He likes to look through calenders and read the paper. He likes everything in 4s. He takes pills whole in applesauce. He can wash his facef with direction and dress himself, he can tie his shoes. He likes dinner at 5-530. He needs everything to be cut into bite size pieces. He is contnent of urine and stool. He goes to bed about 8-830 and sleeps with a nightlight on. He likes to listen to the radio-sports or country music. He does not show pain. Smoking Status: Never smoker Past Alcohol Use History: None Reported Past Drug Use History: None Reported - Past Family History Father Family Medical History: Cancer Additional Family Medical History / Comment(s): COLON CANCER Mother Family Medical History: Cancer, Diabetes Mellitus, Hypertension Additional Family Medical History / Comment(s): OBESITY, FROM METASTATIC KINDEY CANCER Medications and Allergies Home Medications Medication Instructions Recorded Confirmed Type Carbidopa-Levodopa 10-100 mg 1 tab PO TID@0800,1600,199907/31/21 12/24/22 History [Sinemet 10-100 mg] Furosemide [Lasix] 20 mg PO DAILY@0803/27/22 12/24/22 History Magnesium Oxide [Mag-Ox] 400 mg PO DAILY@79903/27/22 12/24/22 History Pantoprazole [Protonix] 40 mg PO DAILY@79903/27/22 12/24/22 History Potassium Chloride Oral Liquid 20 meq PO DAILY@79903/27/22 12/24/22 History Primidone [Mysoline] 50 mg PO DAILY@0803/27/22 12/24/22 History Tamsulosin [Flomax] 0.4 mg PO DAILY@159903/27/22 12/24/22 History ARIPiprazole [Abilify] 10 mg PO BID@08,199907/22/22 12/24/22 History Divalproex Sodium [Depakote] 500 mg PO BID@08,199907/22/22 12/24/22 History Escitalopram [Lexapro] 20 mg PO DAILY@0800 07/22/22 12/24/22 History LORazepam [Ativan] 0.5 mg PO DAILY@0800 07/22/22 12/24/22 History Cholecalciferol [Vitamin D3 (25 50 mcg PO DAILY@79912/24/22 12/24/22 History Mcg = 1000 Iu)] Cyanocobalamin (Vitamin B-12) 1,000 mcg PO HS 12/24/22 12/24/22 History [Vitamin B-12] Ferrous Sulfate [Feosol] 325 mg PO TID@0800,1599,199912/24/22 12/24/22 History Aspirin 325 mg PO DAILY #30 tab 12/25/22 Rx Atorvastatin [Lipitor] 40 mg PO HS #30 tab 12/25/22 Rx Docusate [Colace] 100 mg PO BID #60 cap 12/25/22 Rx Allergies Allergy/AdvReac Type Severity Reaction Status Date / Time No Known Allergies Allergy Verified 12/24/22 08:32 Surgical - Exam Vital Signs Temp Pulse Resp BP Pulse Ox 97.4 F L 72 18 125/71 100 12/24/22 07:39 12/24/22 07:39 12/24/22 07:39 12/24/22 07:39 12/24/22 07:39 Results - Labs 12/25/22 07:20 12/25/22 07:20 Abnormal Lab Results - Last 24 Hours (Table) 12/25/22 Range/Units 07:20 RBC 3.49 L (4.30-5.90) m/uL Hgb 10.3 L (13.0-17.5) gm/dL Hct 31.8 L (39.0-53.0) % Plt Count 136 L (150-450) k/uL Lymphocytes # 0.9 L (1.0-4.8) k/uL
[2022-12-25] MEDS ORDERED: DOCUSATE 100 MG CAP PO SCH (13:00)
[2022-12-25] MEDS ORDERED: LACTULOSE 20 GM/30 ML CUP PO SCH (13:00)
--- NOTE | 2022-12-25 14:45 | P.DS ---
Providers Date of admission: 12/24/22 09:33 Expected date of discharge: 12/25/22 Attending physician: Jennifer Boyd DO Consults: 12/24/22 09:33 Consult Physician Routine Consulting Provider: Aldo Downey Consult Reason/Comments: TIA Do you want consulting provider notified?: Yes 12/24/22 19:35 Consult Physician Routine Consulting Provider: Alberto Torres Consult Reason/Comments: anastomotic narrowing Do you want consulting provider notified?: Yes Primary care physician: [facility] Course: Patient is a 52-year-old male with a history of intellectual disability and autism disorder, prolonged hospital stay in November 2021 for ischemic bowel, orthostatic hypotension, prior TIA, diabetes, hypertension who presented to the emergency department with concerns for right-sided facial droop. On arrival to the ER his vital signs within normal limits. Hemoglobin was 10.7 which is stable from July 2022, platelets 128, BUN 22, and glucose 114. The ER he underwent a CT head which showed no acute intracranial findings. Workup from prior hospitalization 02/19/23 TIA was reviewed. CTA of the head and neck which showed stenosis of the origin of the left ve rtebral artery which was not excluded, no flow-limiting lesions in bilateral carotids and a normal coquille of Alexander. MRI brain at that time showed no evidence of recent infarct but did show some age-related atrophy, C-spine showed slight scoliosis. MRA of the head and neck at that time was severely limited due to motion artifact but left vertebral artery diminutive in size which could be congenital. Patient was admitted for neurology evaluation. Neurology recommended echocardiogram, carotid doppler and EEG. EEG was within normal limits. Carotid duplex showed no significant stenosis. Echocardiogram was pending at the time of this note. Patient's facial droop resolved at the time of discharge. He did have complaints of abdominal pain. CTAP showed large fecal burden at the anastomotic site. Surgery was consulted and recommended soapsuds enema and lactulose. Patient refused and requested to be discharged home. Patient was seen and examined this morning. No acute events overnight. Pertinent procedures include brain CT, carotid Doppler, CTAP, EEG, echocardiogram. General: nontoxic, no distress, appears at stated age Derm: warm, dry Eyes: EOMI, no lid lag, anicteric sclera ENT: Nose and ears atraumatic, no thrush, no pharyngeal erythema Cardiovascular: S1S2 reg, no murmur, no edema Lungs: clear to auscultation bilateral, no rhonchi, no rales, no wheeze, no accessory muscle use Abdominal: soft, nontender to palpation epigastric, no guarding, no appreciable organomegaly, normal bowel sounds Ext: no gross muscle atrophy, muscle strength 5 out of 5 in all 4 extremities, no contractures Neuro: Formal neuro testing is difficult to perform due to patient's cognition. No obvious FND. Psych: Alert, oriented to self, appropriate affect Discharge diagnosis: Right-sided facial droop Fecal stasis Diabetes mellitus type 2, not requiring any medications Dyslipidemia Thrombocytopenia, mild Anemia, chronic and at baseline Cognitive impairment Autism spectrum disorder with mood disturbances This complex discharge took 35 minutes to complete. Patient Condition at Discharge: Stable Plan - Discharge Summary New Discharge Prescriptions: New Aspirin 325 mg PO DAILY #30 tab Docusate [Colace] 100 mg PO BID #60 cap Atorvastatin [Lipitor] 40 mg PO HS #30 tab Continue Carbidopa-Levodopa 10-100 mg [Sinemet 10-100 mg] 1 tab PO TID@0800,1600,1999 Pantoprazole [Protonix] 40 mg PO DAILY@0800 Divalproex Sodium [Depakote] 500 mg PO BID@0800,1999 ARIPiprazole [Abilify] 10 mg PO BID@0800,1999 Cyanocobalamin (Vitamin B-12) [Vitamin B-12] 1,000 mcg PO HS Ferrous Sulfate [Feosol] 325 mg PO TID@0800,1600,1999 Primidone [Mysoline] 50 mg PO DAILY@0800 Tamsulosin [Flomax] 0.4 mg PO DAILY@1600 Potassium Chloride Oral Liquid 20 meq PO DAILY@0800 Magnesium Oxide [Mag-Ox] 400 mg PO DAILY@0800 Furosemide [Lasix] 20 mg PO DAILY@0800 LORazepam [Ativan] 0.5 mg PO DAILY@0800 Escitalopram [Lexapro] 20 mg PO DAILY@0800 Cholecalciferol [Vitamin D3 (25 Mcg = 1000 Iu)] 50 mcg PO DAILY@0800 Discontinued Atorvastatin Calcium [Lipitor] 10 mg PO DAILY@1600 Discharge Medication List Carbidopa-Levodopa 10-100 mg [Sinemet 10-100 mg] 1 tab PO TID@0800,1600,199907/31/21 [History] Furosemide [Lasix] 20 mg PO DAILY@79903/27/22 [History] Magnesium Oxide [Mag-Ox] 400 mg PO DAILY@79903/27/22 [History] Pantoprazole [Protonix] 40 mg PO DAILY@79903/27/22 [History] Potassium Chloride Oral Liquid 20 meq PO DAILY@79903/27/22 [History] Primidone [Mysoline] 50 mg PO DAILY@79903/27/22 [History] Tamsulosin [Flomax] 0.4 mg PO DAILY@159903/27/22 [History] ARIPiprazole [Abilify] 10 mg PO BID@799,199907/22/22 [History] Divalproex Sodium [Depakote] 500 mg PO BID@799,199907/22/22 [History] Escitalopram [Lexapro] 20 mg PO DAILY@79907/22/22 [History] LORazepam [Ativan] 0.5 mg PO DAILY@79907/22/22 [History] Cholecalciferol [Vitamin D3 (25 Mcg = 1000 Iu)] 50 mcg PO DAILY@79912/24/22 [History] Cyanocobalamin (Vitamin B-12) [Vitamin B-12] 1,000 mcg PO HS 12/24/22 [History] Ferrous Sulfate [Feosol] 325 mg PO TID@0800,1599,199912/24/22 [History] Aspirin 325 mg PO DAILY #30 tab 12/25/22 [Rx] Atorvastatin [Lipitor] 40 mg PO HS #30 tab 12/25/22 [Rx] Docusate [Colace] 100 mg PO BID #60 cap 12/25/22 [Rx] Follow up Appointment(s)/Referral(s): Amanuel Tapia MD [Primary Care Provider] - 1-2 days Jennifer Barney MD [Medical Doctor] - 1 Week Patient Instructions/Handouts: Transient Ischemic Attack (DC) Activity/Diet/Wound Care/Special Instructions: Diet: Cardiac Follow up with your PCP within 1-2 days of discharge. Follow up with Neurology within 1 week of discharge.call on back of insurance card to see who accepts insurance and make appointment Take all medications as advised. Come back to the ED for slurred speech, facial droop, confusion, numbness/weakness/tingling of the extremities. Discharge Disposition: HOME SELF-CARE
[2022-12-25 21:04] LABS: Chol/HDL Ratio 2.32 Ratio; LDL Cholesterol,Calculated 43.6 mg/dL (0.0-131.0)
--- NOTE | 2022-12-26 09:30 | CA ---
Transthoracic Echo Report Name: Amanuel Monk Age: 52 Gender: M : 1970 Exam Date: 12/24/2022 14:03 Exam Location: [place] [facility] Ht (in): 69 Wt (lb): 145 Ordering Physician: Jennifer Boyd DO Attending/Referring Phys: [id number], Deb Clinical Trial Specialist Santa Carrera RDCS Procedure CPT: Indications: Thrombus Cardiac Hx: Technical Quality: Fair Contrast 1: Total Dose (mL): Contrast 2: Total Dose (mL): MEASUREMENTS (Male / Female) Normal Values 2D ECHO LV Diastolic Diameter PLAX 4.3 cm 4.2 - 5.9 / 3.9 - 5.3 cm LV Systolic Diameter PLAX 2.8 cm IVS Diastolic Thickness 1.3 cm 0.6 - 1.0 / 0.6 - 0.9 cm LVPW Diastolic Thickness 1.0 cm 0.6 - 1.0 / 0.6 - 0.9 cm LV Relative Wall Thickness 0.5 RV Internal Dim ED PLAX 3.6 cm LA Volume 55.3 cm??? 18 - 58 / 22 - 52 cm??? M-MODE Aortic Root Diameter MM 3.5 cm LA Systolic Diameter MM 3.6 cm LA Ao Ratio MM 1.0 AV Cusp Separation MM 2.6 cm DOPPLER AV Peak Velocity 118.2 cm/s AV Peak Gradient 5.6 mmHg AV Mean Velocity 90.2 cm/s AV Mean Gradient 3.5 mmHg AV Velocity Time Integral 32.3 cm LVOT Peak Velocity 94.6 cm/s LVOT Peak Gradient 3.6 mmHg LVOT Velocity Time Integral 24.1 cm MV Area PHT 2.5 cm??? Mitral E Point Velocity 77.0 cm/s Mitral A Point Velocity 63.0 cm/s Mitral E to A Ratio 1.2 MV Deceleration Time 306.6 ms FINDINGS Left Ventricle Mildly increased left ventricular wall thickness. Normal left ventricular systolic function with no obvious regional wall motion abnormalities. Left ventricular cavity size normal. Left ventricular ejection fraction is estimated at 55- 60%. Right Ventricle Mild right ventricular dilatation. Right ventricular systolic pressure within normal limits. Right Atrium Normal right atrial size. Left Atrium Normal left atrial size. Mitral Valve Structurally normal mitral valve. No mitral stenosis, regurgitation or prolapse. Aortic Valve Trileaflet aortic valve. No aortic stenosis. Trace aortic regurgitation. Tricuspid Valve Structurally normal tricuspid valve. Trace to mild tricuspid regurgitation. Pulmonic Valve Structurally normal pulmonic valve. Trace pulmonic regurgitation. Pericardium No pericardial effusion. Aorta Normal size aortic root and proximal ascending aorta. CONCLUSIONS Normal LV systolic function Mild aortic insufficiency Previewed by: Dr. Matt Pastor MD (Electronically Signed) Final Date: 26 December 2022 09:29
== END 2022-12-25 14:40 | disposition home or self-care (01) ==
LOC: EEVIPCON 07:35 → EC 07:35 → 6NMEDSUR 09:33
PROVIDERS: ADMIT Internal Medicine; ATTEND Internal Medicine
DX: R29.810 Facial weakness (principal); E11.9 Type 2 diabetes mellitus without complications; I10 Essential (primary) hypertension; F84.0 Autistic disorder; F84.9 Pervasive developmental disorder, unspecified; D69.6 Thrombocytopenia, unspecified; D64.9 Anemia, unspecified; E78.5 Hyperlipidemia, unspecified; K59.89 Other specified functional intestinal disorders; Z86.73 Personal history of transient ischemic attack (TIA), and cerebral infarction without residual deficits; Z79.899 Other long term (current) drug therapy
CPT/HCPCS: 36415; 70450; 74176; 80053; 80061; 80164; 80165; 83036; 85025; 93005; 93306; 93880; 94760; 95816; 96374; 99285

== ENCOUNTER 2023-01-09 19:48 | Observation (INO) | payer MEDICARE, OTHER ==
[2023-01-09] MEDS ORDERED: SODIUM CHLORIDE 0.9% 1,000 ML IV ONE (19:52)
[2023-01-09] MEDS ORDERED: ACETAMINOPHEN IV (For NPO) 1,000 MG in EMPTY BAG 1 BAG IVPB ONE (20:15)
[2023-01-09] MEDS ORDERED: IBUPROFEN IV 800 MG in SODIUM CHLORIDE 0.9% 250 ML IV ONE (20:30)
[2023-01-09 20:31] LABS: Glucose,Whole Blood 97 mg/dL (70-110)
[2023-01-09 20:48] LABS: ALT 37 U/L (4-49); AST 75 U/L (17-59); African American GFR (CKD) >90 (>60 ml/min/1.73 sqM); Albumin 2.6 g/dL (3.5-5.0); Alcohol <10 mg/dL; Alkaline Phosphatase 93 U/L (38-126); Anion Gap 6 mmol/L; Blood Urea Nitrogen 20 mg/dL (9-20); Calcium 7.9 mg/dL (8.4-10.2); Carbon Dioxide 33 mmol/L (22-30); Chloride 98 mmol/L (98-107); Glucose 96 mg/dL (74-99); Lipase 116 U/L (23-300); Magnesium 2.4 mg/dL (1.6-2.3); Non-African American GFR(CKD) 86 (>60 ml/min/1.73 sqM); Phosphorus 3.1 mg/dL (2.5-4.5); Potassium 3.5 mmol/L (3.5-5.1); Sodium 137 mmol/L (137-145); Total Bilirubin 0.4 mg/dL (0.2-1.3)
--- NOTE | 2023-01-09 20:48 | ED ---
Fever HPI - General Chief Complaint: Fever Stated Complaint: ALTERED MENTAL STATE Time Seen by Provider: 01/09/23 19:52 Source: EMS, RN notes reviewed, old records reviewed Mode of arrival: EMS Limitations: altered mental status - History of Present Illness Initial Comments: This is a 52-year-old male is unable to provide history patient is unable to pr ovide history secondary to decreased verbal language skills. Patient presents today for evaluation patient presents today for not acting right fever since the emergency room by staff and found to have fever here but unable to provide history MD Complaint: fever, weakness -: unknown Temperature Source: subjective Context: sick contacts Associated Symptoms: denies other symptoms Treatments Prior to Arrival: none - Related Data Home Medications Medication Instructions Recorded Confirmed Carbidopa-Levodopa 10-100 mg 1 tab PO TID@0800,1599,199907/31/21 01/09/23 [Sinemet 10-100 mg] Furosemide [Lasix] 20 mg PO DAILY@79903/27/22 01/09/23 Magnesium Oxide [Mag-Ox] 400 mg PO DAILY@79903/27/22 01/09/23 Pantoprazole [Protonix] 40 mg PO DAILY@79903/27/22 01/09/23 Potassium Chloride Oral Liquid 20 meq PO DAILY@79903/27/22 01/09/23 Primidone [Mysoline] 50 mg PO DAILY@79903/27/22 01/09/23 Tamsulosin [Flomax] 0.4 mg PO DAILY@159903/27/22 01/09/23 ARIPiprazole [Abilify] 10 mg PO BID@07/22/22 01/09/23 Divalproex Sodium [Depakote] 500 mg PO TID@0800,1599,199907/22/22 01/09/23 Escitalopram [Lexapro] 20 mg PO DAILY@79907/22/22 01/09/23 LORazepam [Ativan] 0.5 mg PO DAILY@79907/22/22 01/09/23 Cholecalciferol [Vitamin D3 (25 50 mcg PO DAILY@79912/24/22 01/09/23 Mcg = 1000 Iu)] Cyanocobalamin (Vitamin B-12) 1,000 mcg PO HS@2000 04/26/23 05/12/23 [Vitamin B-12] Ferrous Sulfate [Feosol] 325 mg PO TID@0800,1599,199912/24/22 01/09/23 Acetaminophen [Tylenol] 325 mg PO BID@0800,199901/09/23 01/09/23 Atorvastatin [Lipitor] 40 mg PO DAILY@1600 01/09/23 01/09/23 Docusate [Colace] 100 mg PO BID@0800,199901/09/23 01/09/23 Allergies Allergy/AdvReac Type Severity Reaction Status Date / Time No Known Allergies Allergy Verified 01/09/23 21:13 Review of Systems ROS Statement: Those systems with pertinent positive or pertinent negative responses have been documented in the HPI. ROS Other: All systems not noted in ROS Statement are negative. Past Medical History Past Medical History: CVA/TIA, Diabetes Mellitus, Hypertension Additional Past Medical History / Comment(s): Pt recently admitted to [facility] on 02/20/20 with R intrinsic hand muscle weakness/possible L vertebral artery stenosis/thrombocytopenia. Ischemic Bowel, Vent dependent respiratory failure, Other hx: Diet controlled diabetes, autism, intellectual impairment History of Any Multi-Drug Resistant Organisms: None Reported Past Surgical History: No Surgical Hx Reported Additional Past Surgical History / Comment(s): partial gastrectomy, Bowel ressection, JEANINE, abdominal abscess drainage due to ischemic bowel October 2021 Past Anesthesia/Blood Transfusion Reactions: Unable to Obtain Additional Past Anesthesia/Blood Transfusion Reaction / Comment(s): NEVER HAD ANY SX Past Psychological History: No Psychological Hx Reported Smoking Status: Never smoker Past Alcohol Use History: None Reported Past Drug Use History: None Reported - Past Family History Father Family Medical History: Cancer Additional Family Medical History / Comment(s): COLON CANCER Mother Family Medical History: Cancer, Diabetes Mellitus, Hypertension Additional Family Medical History / Comment(s): OBESITY, FROM METASTATIC KINDEY CANCER General Exam Limitations: altered mental status General appearance: alert, in no apparent distress Head exam: Present: atraumatic, normocephalic, normal inspection Eye exam: Present: normal appearance, PERRL, EOMI. Absent: scleral icterus, conjunctival injection, periorbital swelling ENT exam: Present: normal exam, mucous membranes moist Neck exam: Present: normal inspection. Absent: tenderness, meningismus, lymphadenopathy Respiratory exam: Present: normal lung sounds bilaterally. Absent: respiratory distress, wheezes, rales, rhonchi, stridor Cardiovascular Exam: Present: regular rate, normal rhythm, normal heart sounds. Absent: systolic murmur, diastolic murmur, rubs, gallop, clicks GI/Abdominal exam: Present: soft, normal bowel sounds. Absent: distended, tenderness, guarding, rebound, rigid Extremities exam: Present: normal inspection, full ROM, normal capillary refill. Absent: tenderness, pedal edema, joint swelling, calf tenderness Back exam: Present: normal inspection Neurological exam: Present: alert, oriented X3, CN II-XII intact Psychiatric exam: Present: normal affect, normal mood Skin exam: Present: warm, dry, intact, normal color. Absent: rash Course Vital Signs 01/09/23 01/09/23 01/09/23 19:50 20:40 21:00 Temperature 101.3 F H Pulse Rate 80 86 75 Respiratory 18 15 15 Rate Blood Pressure 149/72 137/74 O2 Sat by Pulse 98 98 98 Oximetry 01/09/23 01/09/23 01/09/23 21:19 21:30 22:00 Temperature 98.8 F Pulse Rate 76 73 Respiratory 16 Rate Blood Pressure 141/76 131/68 O2 Sat by Pulse 97 97 Oximetry 01/09/23 01/09/23 01/10/23 22:30 23:00 02:00 Temperature Pulse Rate 69 64 80 Respiratory 16 18 Rate Blood Pressure 127/72 127/68 O2 Sat by Pulse 97 97 97 Oximetry 01/10/23 01/10/23 01/10/23 07:22 08:00 11:27 Temperature 98.6 F 98.7 F Pulse Rate 65 65 Respiratory 18 18 Rate Blood Pressure 142/81 134/81 O2 Sat by Pulse 97 97 Oximetry 01/10/23 18:18 Temperature Pulse Rate 64 Respiratory 18 Rate Blood Pressure 132/82 O2 Sat by Pulse 98 Oximetry - Reevaluation(s) Reevaluation #1: 01/09/23 22:46 Medical record is reviewed Reevaluation #2: 01/09/23 22:46 Patient has no real change in symptoms here in the ER fevers improved Reevaluation #3: 01/09/23 22:46 Patient informed results and questions answered Reevaluation #4: 01/09/23 22:46 Was pt. sent in by a medical professional or institution? @ -no Did you speak to anyone other than the patient for history? @ -no Did you review nursing and triage notes? @ -agree Were old charts reviewed? @ -no Differential Diagnosis? @ -prior EKG interpreted by me (3pts min.)? @ -yes X-rays interpreted by me (1pt min.)? @ -yes CT interpreted by me (1pt min.)? @ -no U/S interpreted by me (1pt. min.)? @ -no What testing was considered but not performed? (CT, X-rays, U/S, labs)? Why? @ -no What meds were considered but not given? Why? @ -no Did you discuss the management of the patient with other professionals? @ -no Did you reconcile home meds? @ -no Was smoking cessation discussed for >3mins.? @ -no Was critical care preformed (if so, how long)? @ -no Were there social determinants of health that impacted care today? How? (Homelessness, low income, unemployed, alcoholism, drug addiction, transportation, low edu. Level, literacy, decrease access to med. care, usp, rehab)? @ -no Was there de-escalation of care discussed even if they declined? (Discuss DNR or withdrawal of care, Hospice)? @ -no What co-morbidities impacted this encounter? (DM, HTN, Smoking, COPD, CAD, Cancer, CVA, Hep., AIDS, mental health diagnosis, sleep apnea, morbid obesity)? @ -none Was patient admitted / discharged? @ -admit Undiagnosed new problem with uncertain prognosis? @ -no Drug Therapy requiring intensive monitoring for toxicity (Heparin, Nitro, Insu andrew, Cardizem)? @ -no Were any procedures done? @ -no Diagnosis/symptom? @ -FeverUnknown Acute, or Chronic, or Acute on Chronic? @ -acute Uncomplicated (without systemic symptoms) or Complicated (systemic symptoms)? @ -complicated Side effects of treatment? @ -no Exacerbation, Progression, or Severe Exacerbation] @ -no Poses a threat to life or bodily function? @ -yes Reevaluation #5: 01/09/23 22:46 Differential Fever: Pneumonia, viral URI, endocarditis, myocarditis, pericarditis, otitis, sinusitis, peritonsillar Abscess, retropharyngeal Abscess, epiglottitis, peritonitis, appendicitis, Imelda cystitis, diverticulitis, hepatitis, colitis, UTI, PID, TOA, pyelonephritis, prostatitis, epididymitis, meningitis, encephalitis, pulmonary embolism, CVA, thyroid storm, pancreatitis, adrenal crisis, cavernous sinus thrombosis, this is not meant to be an all-inclusive list. Medical Decision Making - Medical Decision Making 52 male with fever, he did have significant change in his activity level for staffing unable to provide history will treat for pneumonia secondary to fever and effusion, CT brain is negative for acute disease - Lab Data Result diagrams: 01/11/23 06:17 01/11/23 06:17 Lab Results 01/09/23 01/09/23 01/09/23 Range/Units 20:01 20:01 20:01 WBC 8.4 (3.8-10.6) k/uL RBC 2.82 L (4.30-5.90) m/uL Hgb 8.0 L D (13.0-17.5) gm/dL Hct 25.0 L (39.0-53.0) % MCV 88.6 (80.0-100.0) fL MCH 28.2 (25.0-35.0) pg MCHC 31.9 (31.0-37.0) g/dL RDW 13.9 (11.5-15.5) % Plt Count 277 D (150-450) k/uL MPV 7.3 Neutrophils % 83 % Lymphocytes % 6 % Monocytes % 9 % Eosinophils % 0 % Basophils % 0 % Neutrophils # 7.0 (1.3-7.7) k/uL Lymphocytes # 0.5 L (1.0-4.8) k/uL Monocytes # 0.7 (0-1.0) k/uL Eosinophils # 0.0 (0-0.7) k/uL Basophils # 0.0 (0-0.2) k/uL PT 12.9 H (9.0-12.0) sec INR 1.3 H (<1.2) APTT 31.4 H (22.0-30.0) sec Sodium 137 (137-145) mmol/L Potassium 3.5 (3.5-5.1) mmol/L Chloride 98 (98-107) mmol/L Carbon Dioxide 33 H (22-30) mmol/L Anion Gap 6 mmol/L BUN 20 (9-20) mg/dL Creatinine 0.99 (0.66-1.25) mg/dL Est GFR (CKD-EPI)AfAm >90 (>60 ml/min/1.73 sqM) Est GFR (CKD-EPI)NonAf 86 (>60 ml/min/1.73 sqM) Glucose 96 (74-99) mg/dL POC Glucose (mg/dL) (70-110) mg/dL POC Glu Property Controller ID Calcium 7.9 L (8.4-10.2) mg/dL Phosphorus 3.1 (2.5-4.5) mg/dL Magnesium 2.4 H (1.6-2.3) mg/dL Total Bilirubin 0.4 (0.2-1.3) mg/dL AST 75 H (17-59) U/L ALT 37 (4-49) U/L Alkaline Phosphatase 93 (38-126) U/L Ammonia (<30) umol/L Troponin I (0.000-0.034) ng/mL Total Protein 6.0 L (6.3-8.2) g/dL Albumin 2.6 L (3.5-5.0) g/dL Lipase 116 (23-300) U/L Serum Alcohol <10 mg/dL Influenza Type A (PCR) (Not Detectd) Influenza Type B (PCR) (Not Detectd) RSV (PCR) (Not Detectd) SARS-CoV-2 (PCR) (Not Detectd) 01/09/23 01/09/23 01/09/23 Range/Units 20:01 20:01 20:01 WBC (3.8-10.6) k/uL RBC (4.30-5.90) m/uL Hgb (13.0-17.5) gm/dL Hct (39.0-53.0) % MCV (80.0-100.0) fL MCH (25.0-35.0) pg MCHC (31.0-37.0) g/dL RDW (11.5-15.5) % Plt Count (150-450) k/uL MPV Neutrophils % % Lymphocytes % % Monocytes % % Eosinophils % % Basophils % % Neutrophils # (1.3-7.7) k/uL Lymphocytes # (1.0-4.8) k/uL Monocytes # (0-1.0) k/uL Eosinophils # (0-0.7) k/uL Basophils # (0-0.2) k/uL PT (9.0-12.0) sec INR (<1.2) APTT (22.0-30.0) sec Sodium (137-145) mmol/L Potassium (3.5-5.1) mmol/L Chloride (98-107) mmol/L Carbon Dioxide (22-30) mmol/L Anion Gap mmol/L BUN (9-20) mg/dL Creatinine (0.66-1.25) mg/dL Est GFR (CKD-EPI)AfAm (>60 ml/min/1.73 sqM) Est GFR (CKD-EPI)NonAf (>60 ml/min/1.73 sqM) Glucose (74-99) mg/dL POC Glucose (mg/dL) (70-110) mg/dL POC Glu Property Controller ID Calcium (8.4-10.2) mg/dL Phosphorus (2.5-4.5) mg/dL Magnesium (1.6-2.3) mg/dL Total Bilirubin (0.2-1.3) mg/dL AST (17-59) U/L ALT (4-49) U/L Alkaline Phosphatase (38-126) U/L Ammonia 12 (<30) umol/L Troponin I <0.012 (0.000-0.034) ng/mL Total Protein (6.3-8.2) g/dL Albumin (3.5-5.0) g/dL Lipase (23-300) U/L Serum Alcohol mg/dL Influenza Type A (PCR) Not Detected (Not Detectd) Influenza Type B (PCR) Not Detected (Not Detectd) RSV (PCR) Not Detected (Not Detectd) SARS-CoV-2 (PCR) Not Detected (Not Detectd) 01/09/23 Range/Units 20:29 WBC (3.8-10.6) k/uL RBC (4.30-5.90) m/uL Hgb (13.0-17.5) gm/dL Hct (39.0-53.0) % MCV (80.0-100.0) fL MCH (25.0-35.0) pg MCHC (31.0-37.0) g/dL RDW (11.5-15.5) % Plt Count (150-450) k/uL MPV Neutrophils % % Lymphocytes % % Monocytes % % Eosinophils % % Basophils % % Neutrophils # (1.3-7.7) k/uL Lymphocytes # (1.0-4.8) k/uL Monocytes # (0-1.0) k/uL Eosinophils # (0-0.7) k/uL Basophils # (0-0.2) k/uL PT (9.0-12.0) sec INR (<1.2) APTT (22.0-30.0) sec Sodium (137-145) mmol/L Potassium (3.5-5.1) mmol/L Chloride (98-107) mmol/L Carbon Dioxide (22-30) mmol/L Anion Gap mmol/L BUN (9-20) mg/dL Creatinine (0.66-1.25) mg/dL Est GFR (CKD-EPI)AfAm (>60 ml/min/1.73 sqM) Est GFR (CKD-EPI)NonAf (>60 ml/min/1.73 sqM) Glucose (74-99) mg/dL POC Glucose (mg/dL) 97 (70-110) mg/dL POC Glu Property Controller ID Ekaterina Bustamante Calcium (8.4-10.2) mg/dL Phosphorus (2.5-4.5) mg/dL Magnesium (1.6-2.3) mg/dL Total Bilirubin (0.2-1.3) mg/dL AST (17-59) U/L ALT (4-49) U/L Alkaline Phosphatase (38-126) U/L Ammonia (<30) umol/L Troponin I (0.000-0.034) ng/mL Total Protein (6.3-8.2) g/dL Albumin (3.5-5.0) g/dL Lipase (23-300) U/L Serum Alcohol mg/dL Influenza Type A (PCR) (Not Detectd) Influenza Type B (PCR) (Not Detectd) RSV (PCR) (Not Detectd) SARS-CoV-2 (PCR) (Not Detectd) - EKG Data -: EKG Interpreted by Me (EKG is sinus 75. GA 150 QRS 86 QTc 449) - Radiology Data Radiology results: report reviewed (CT brain negative for acute disease chest x- ray does show effusion), image reviewed Disposition Clinical Impression: Weakness, Fever Disposition: ADMITTED IP TO THIS HOSP Condition: Stable Is patient prescribed a controlled substance at d/c from ED?: No Time of Disposition: 22:45
[2023-01-09 20:50] LABS: Basophils % (A) 0 %; Eosinophils % (A) 0 %; Lymphocytes # (A) 0.5 k/uL (1.0-4.8); Lymphocytes % (A) 6 %; MCH 28.2 pg (25.0-35.0); MCHC 31.9 g/dL (31.0-37.0); MCV 88.6 fL (80.0-100.0); Mean Platelet Volume 7.3; Monocytes # (A) 0.7 k/uL (0-1.0); Monocytes % (A) 9 %; Neutrophils % (A) 83 %; RBC 2.82 m/uL (4.30-5.90); RDW 13.9 % (11.5-15.5); WBC 8.4 k/uL (3.8-10.6)
--- NOTE | 2023-01-09 20:55 | XR ---
EXAMINATION TYPE: XR chest 1V portable DATE OF EXAM: 01/09/2023 8:45 PM COMPARISON: Chest radiographs from 07/22/2022 TECHNIQUE: XR chest 1V portable Frontal view of the chest. CLINICAL INDICATION:Male, 52 years old with history of altered mental status; FINDINGS: Lungs/Pleura: There is no evidence of focal consolidation, or pneumothorax. Blunting of the left cos tophrenic angle. Pulmonary vascularity: Unremarkable. Heart/mediastinum: Cardiomediastinal silhouette is unremarkable. Musculoskeletal: No acute osseous pathology. IMPRESSION: New small left small pleural effusion.
[2023-01-09 20:57] LABS: INR 1.3 (<1.2); Partial Thromboplastin Time 31.4 sec (22.0-30.0); Prothrombin Time 12.9 sec (9.0-12.0)
[2023-01-09 21:09] LABS: Platelet Count 277 k/uL (150-450)
--- NOTE | 2023-01-09 21:16 | CT ---
EXAMINATION TYPE: CT brain wo con CT DLP: 1192.4 mGycm, Automated exposure control for dose reduction was used. DATE OF EXAM: 01/09/2023 9:00 PM COMPARISON: 12/24/2022. CLINICAL INDICATION:Male, 52 years old with history of Altered mental status, AMS TECHNIQUE: Brain: Axial CT images of the brain were obtained with coronal and sagittal reformats created and rev iewed. Contrast used: None. Oral contrast used: None. FINDINGS: Brain: Extra-axial spaces: No abnormal extra-axial fluid collections. Ventricular system: Within normal limits Cerebral parenchyma: No acute intraparenchymal hemorrhage or mass effect. The lyle-white junction is well differentiated. Cerebellum: Unremarkable. Mass effect: No evidence of midline shift. Intracranial vasculature: Atherosclerotic calcifications of the intracranial vessels. Soft tissues: Normal. Calvarium/osseous structures: No depressed skull fracture. Paranasal sinuses and mastoid air cells: Mild scattered paranasal sinus disease. Visualized orbits: Orbital contents are intact. IMPRESSION: No acute intracranial process.
[2023-01-09] MEDS ORDERED: ACETAMINOPHEN TAB 325 MG TAB PO PRN (22:42)
[2023-01-09] MEDS ORDERED: ONDANSETRON 4 MG/2 ML VIAL IVP PRN (22:42)
[2023-01-09] MEDS ORDERED: NALOXONE 0.4 MG/ML 1 ML VIAL IV PRN (22:42)
[2023-01-09] MEDS ORDERED: AMPICILLIN-SULBACTAM 3 GM in SODIUM CHLORIDE 0.9% 100 ML IVPB STA (22:42)
[2023-01-09] MEDS ORDERED: AZITHROMYCIN 500 MG in SODIUM CHLORIDE 0.9% 250 ML IVPB STA (22:49)
[2023-01-09] MEDS: SODIUM CHLORIDE 0.9% 1,000 ML IV SCH (23:01)
[2023-01-10 04:27] LABS: HGB 7.6 gm/dL (13.0-17.5); Hypochromasia Slight; MCH 28.5 pg (25.0-35.0); MCHC 31.6 g/dL (31.0-37.0); MCV 90.2 fL (80.0-100.0); Mean Platelet Volume 7.4; Platelet Count 238 k/uL (150-450); RBC 2.67 m/uL (4.30-5.90); RDW 13.9 % (11.5-15.5); WBC 8.2 k/uL (3.8-10.6)
[2023-01-10 04:48] LABS: ALT 37 U/L (4-49); AST 71 U/L (17-59); African American GFR (CKD) >90 (>60 ml/min/1.73 sqM); Albumin 2.2 g/dL (3.5-5.0); Alkaline Phosphatase 79 U/L (38-126); Anion Gap 7 mmol/L; Blood Urea Nitrogen 18 mg/dL (9-20); Calcium 7.6 mg/dL (8.4-10.2); Carbon Dioxide 30 mmol/L (22-30); Chloride 101 mmol/L (98-107); Glucose 80 mg/dL (74-99); Magnesium 2.4 mg/dL (1.6-2.3); Non-African American GFR(CKD) >90 (>60 ml/min/1.73 sqM); Phosphorus 3.9 mg/dL (2.5-4.5); Potassium 3.2 mmol/L (3.5-5.1); Sodium 138 mmol/L (137-145); Total Bilirubin 0.3 mg/dL (0.2-1.3); Total Protein 5.2 g/dL (6.3-8.2)
[2023-01-10 05:07] LABS: Band Neutrophils % 25 %; Lymphocytes # (M) 0.98 k/uL (1.0-4.8); Monocytes # (M) 0.49 k/uL (0-1.0); Neutrophils % (M) 57 %; Nucleated Red Blood Cells 0 /100 WBC (0-0); Total Cells Counted 200; Toxic Granulation Present
--- NOTE | 2023-01-10 05:34 | P.HPIM ---
History of Present Illness H&P Date: 01/10/23 The patient is a 48-year-old male with a PMH of autism spectrum disorder, intellectual disability, hypertension, type 2 dm, hyperlipidemia, and multiple recent hospitalizations who was sent to the hospital from his retirement ([facility]) for confusion and strokelike symptoms. This she was obtained from the group account director Elle via phone at [phone]. He was also supplemented by the ED provider. The patient reportedly was shaking at his dinner table and was much less verbal than usual. The patient then reportedly lost consciousness as per Elle and somehow ended up on the floor, unclear if he sustained injuries from the fall. He had only lost consciousness for a few seconds however and after regaining consciousness she was noted to be confused and had a left-sided facial droop. He was also not following commands as per usual. The staff subsequently activated EMS, upon arrival noted the patient had no strokelike symptoms. The patient did not provide any meaningful history as he is not answering questions. He is able to follow basic commands however. Of note, the patient recently had a hospitalization at [facility] on 12/24 to 12/25 for strokelike symptoms. No obvious etiology could be found and the patient was subsequently discharged once cleared by neurology. In the emergency room upon presentation earlier today, the patient was noted to have a T-max of 101.2F. There were no reports of cough or diarrhea. CT brain in the emergency room with unremarkable. Chest x-ray was also unremarkable. Furthermore EKG revealed sinus rhythm at [address]/T-wave changes noted as reviewed with him. Laboratory evaluation was remarkable for hemoglobin of 8.0 (similar to baseline), platelet count 238, sodium 138, potassium 3.2, calcium 7.6, magnesium 2.4, AST 71, albumin 2.2. ED documentation reviewed and case discussed with ED provider. Review of systems: Unable to obtain due to mental status Physical examination: Vital signs reviewed General: Chronically ill-appearing, no distress, appears older than stated age, normal weight Derm: no unusual rashes/lesions, warm Head: atraumatic, normocephalic, symmetric Eyes: EOMI, no lid lag, anicteric sclera, pupils equal round reactive to light ENT: Nose and ears atraumatic Neck: No cervical lymphadenopathy, trachea midline, supple Mouth: no lip lesion, mucus membranes moist Cardiovascular: S1S2 reg, no murmur, positive dorsalis pedis pulse bilateral, no edema Lungs: CTA bilateral, no rhonchi, no rales, no accessory muscle use Abdominal: soft, nontender to palpation, no guarding Ext: muscle strength 5 out of 5 in all 4 extremities grossly, no gross muscle atrophy, no contractures, Neuro: CN II-XI grossly intact, no gross focal neuro deficits, no facial droop noted Psych: Following basic directions, not answering any questions, unable to fully assess Assessment: Fever, unclear etiology Chronic conditions: Intellectual disability, hypertension, type II DM, hyperlipidemia Plan: Continue with empiric antibody coerage with azithromycin and ceftriaxone Continue with normal saline 130 mL/hr Obtain lactate levels Follow-up blood cultures DVT prophylaxis: Heparin subq The patient is admitted with an anticipated greater than 2 midnight stay for evaluation of fever CODE STATUS: Full Code Anticipated discharge date: 2-[address]: [facility] Past Medical History Past Medical History: CVA/TIA, Diabetes Mellitus, Hypertension Additional Past Medical History / Comment(s): Pt recently admitted to [facility] on 02/20/20 with R intrinsic hand muscle weakness/possible L vertebral artery stenosis/thrombocytopenia. Ischemic Bowel, Vent dependent respiratory failure, Other hx: Diet controlled diabetes, autism, intellectual impairment History of Any Multi-Drug Resistant Organisms: None Reported Past Surgical History: No Surgical Hx Reported Additional Past Surgical History / Comment(s): partial gastrectomy, Bowel ressection, JEANINE, abdominal abscess drainage due to ischemic bowel October 2021 Past Anesthesia/Blood Transfusion Reactions: Unable to Obtain Additional Past Anesthesia/Blood Transfusion Reaction / Comment(s): NEVER HAD ANY SX Past Psychological History: No Psychological Hx Reported Smoking Status: Never smoker Past Alcohol Use History: None Reported Past Drug Use History: None Reported - Past Family History Father Family Medical History: Cancer Additional Family Medical History / Comment(s): COLON CANCER Mother Family Medical History: Cancer, Diabetes Mellitus, Hypertension Additional Family Medical History / Comment(s): OBESITY, FROM METASTATIC KINDEY CANCER Medications and Allergies Home Medications Medication Instructions Recorded Confirmed Type Carbidopa-Levodopa 10-100 mg 1 tab PO TID@0800,1600,199907/31/21 01/09/23 History [Sinemet 10-100 mg] Furosemide [Lasix] 20 mg PO DAILY@0800 03/27/22 05/12/23 History Magnesium Oxide [Mag-Ox] 400 mg PO DAILY@79903/27/22 01/09/23 History Pantoprazole [Protonix] 40 mg PO DAILY@79903/27/22 01/09/23 History Potassium Chloride Oral Liquid 20 meq PO DAILY@79903/27/22 01/09/23 History Primidone [Mysoline] 50 mg PO DAILY@79903/27/22 01/09/23 History Tamsulosin [Flomax] 0.4 mg PO DAILY@159903/27/22 01/09/23 History ARIPiprazole [Abilify] 10 mg PO BID@08,199907/22/22 01/09/23 History Divalproex Sodium [Depakote] 500 mg PO TID@0800,1599,199907/22/22 01/09/23 History Escitalopram [Lexapro] 20 mg PO DAILY@79907/22/22 01/09/23 History LORazepam [Ativan] 0.5 mg PO DAILY@79907/22/22 01/09/23 History Cholecalciferol [Vitamin D3 (25 50 mcg PO DAILY@79912/24/22 01/09/23 History Mcg = 1000 Iu)] Cyanocobalamin (Vitamin B-12) 1,000 mcg PO HS@199912/24/22 01/09/23 History [Vitamin B-12] Ferrous Sulfate [Feosol] 325 mg PO TID@0800,1599,199912/24/22 01/09/23 History Acetaminophen [Tylenol] 325 mg PO BID@08,199901/09/23 01/09/23 History Atorvastatin [Lipitor] 40 mg PO DAILY@159901/09/23 01/09/23 History Docusate [Colace] 100 mg PO BID@08,199901/09/23 01/09/23 History Allergies Allergy/AdvReac Type Severity Reaction Status Date / Time No Known Allergies Allergy Verified 01/09/23 21:13 Physical Exam Vitals: Vital Signs Temp Pulse Resp BP Pulse Ox 01/10/23 02:00 80 18 97 01/09/23 23:00 64 16 127/68 97 01/09/23 22:30 69 127/72 97 01/09/23 22:00 73 131/68 97 01/09/23 21:30 76 16 141/76 97 01/09/23 21:19 98.8 F 01/09/23 21:00 75 15 98 01/09/23 20:40 86 15 137/74 98 01/09/23 19:50 101.3 F H 80 18 149/72 98 Intake and Output 01/09/23 01/09/23 01/10/23 14:59 22:59 06:59 Other: Weight 68.039 kg Results CBC & Chem 7: 01/10/23 03:58 01/10/23 03:58 Labs: Abnormal Lab Results - Last 24 Hours (Table) 01/09/23 01/09/23 01/09/23 Range/Units 20:01 20:01 20:01 RBC 2.82 L (4.30-5.90) m/uL Hgb 8.0 L D (13.0-17.5) gm/dL Hct 25.0 L (39.0-53.0) % Lymphocytes # 0.5 L (1.0-4.8) k/uL PT 12.9 H (9.0-12.0) sec INR 1.3 H (<1.2) APTT 31.4 H (22.0-30.0) sec Carbon Dioxide 33 H (22-30) mmol/L Calcium 7.9 L (8.4-10.2) mg/dL Magnesium 2.4 H (1.6-2.3) mg/dL AST 75 H (17-59) U/L Total Protein 6.0 L (6.3-8.2) g/dL Albumin 2.6 L (3.5-5.0) g/dL
[2023-01-10 07:44] LABS: Amphetamine Screen,Urine Not Detected (NotDetected); Barbiturate Screen,Urine Detected (NotDetected); Benzodiazepines Screen,Urine Detected (NotDetected); Cocaine Screen,Urine Not Detected (NotDetected); Methadone Screen, Urine Not Detected (NotDetected); Opiate Screen,Urine Not Detected (NotDetected); Oxycodone Screen, Urine Not Detected (NotDetected); Phencyclidine Screen,Urine Not Detected (NotDetected); Tricyclic Antidepressant,Urine Not Detected (NotDetected); Urn Cannabinoid Scrn Not Detected (NotDetected)
[2023-01-10 08:02] LABS: Glucose,Whole Blood 69 mg/dL (70-110)
[2023-01-10] MEDS: INSULIN ASPART (NovoLOG) 100 UNIT/ML VIAL SQ SCH ×4 (08:02→21:37)
[2023-01-10] MEDS: SODIUM CHLORIDE 0.9% 1,000 ML IV SCH ×3 (12:45→18:37)
[2023-01-10 13:06] LABS: Glucose,Whole Blood 96 mg/dL (70-110)
[2023-01-10 17:24] LABS: Glucose,Whole Blood 95 mg/dL (70-110)
[2023-01-10] MEDS: POTASSIUM CHLORIDE 10 MEQ in WATER FOR INJECTION 1 100ML.BAG IVPB SCH ×2 (18:38→23:47)
[2023-01-10 20:00] LABS: Glucose,Whole Blood 140 mg/dL (70-110)
[2023-01-10] MEDS: AZITHROMYCIN 500 MG in SODIUM CHLORIDE 0.9% 250 ML IVPB SCH (21:41)
[2023-01-11] MEDS: POTASSIUM CHLORIDE 10 MEQ in WATER FOR INJECTION 1 100ML.BAG IVPB SCH ×2 (01:57→03:17)
[2023-01-11 06:48] LABS: Basophils % (A) 0 %; Eosinophils % (A) 0 %; HCT 26.2 % (39.0-53.0); HGB 8.2 gm/dL (13.0-17.5); Hypochromasia Slight; Lymphocytes # (A) 0.6 k/uL (1.0-4.8); Lymphocytes % (A) 7 %; MCH 28.4 pg (25.0-35.0); MCHC 31.3 g/dL (31.0-37.0); MCV 90.7 fL (80.0-100.0); Mean Platelet Volume 7.5; Monocytes # (A) 0.7 k/uL (0-1.0); Monocytes % (A) 7 %; Neutrophils % (A) 84 %; Platelet Count 294 k/uL (150-450); RBC 2.89 m/uL (4.30-5.90); RDW 14.1 % (11.5-15.5); WBC 9.5 k/uL (3.8-10.6)
[2023-01-11 06:59] LABS: African American GFR (CKD) >90 (>60 ml/min/1.73 sqM); Anion Gap 8 mmol/L; Blood Urea Nitrogen 15 mg/dL (9-20); Calcium 7.8 mg/dL (8.4-10.2); Carbon Dioxide 27 mmol/L (22-30); Chloride 101 mmol/L (98-107); Glucose 84 mg/dL (74-99); Non-African American GFR(CKD) >90 (>60 ml/min/1.73 sqM); Potassium 3.8 mmol/L (3.5-5.1); Sodium 136 mmol/L (137-145)
[2023-01-11 07:44] LABS: Glucose,Whole Blood 89 mg/dL (70-110)
[2023-01-11] MEDS: SODIUM CHLORIDE 0.9% 1,000 ML IV SCH ×3 (07:45→17:19)
[2023-01-11] MEDS: INSULIN ASPART (NovoLOG) 100 UNIT/ML VIAL SQ SCH ×4 (07:46→20:54)
[2023-01-11 11:50] LABS: Glucose,Whole Blood 86 mg/dL (70-110)
--- NOTE | 2023-01-11 15:51 | P.PN ---
Subjective Progress Note Date: 01/11/23 Hospital Course: 48-year-old male with a PMH of autism spectrum disorder, intellectual disability, hypertension, type 2 dm, hyperlipidemia, and multiple recent hospitalizations who was sent to the hospital from his jail ([facility]) for confusion and strokelike symptoms. CT brain in the emergency room with unremarkable. Chest x-ray was also unremarkable. Furthermore EKG revealed sinus rhythm at [address]/T-wave changes noted as reviewed with him. Laboratory evaluation was remarkable for hemoglobin of 8.0 (similar to baseline), platelet count 238, sodium 138, potassium 3.2, calcium 7.6, magnesium 2.4, AST 71, albumin 2.2. Patient admitted for fever of unknown origin. Subjective: 80 and examined at bedside. No acute events overnight. Maximum temperature of 100.3. Pertinent positives and negatives as discussed above, a complete review of syst ems was performed and all other systems are negative. Vitals Signs Reviewed. General: Chronically ill-appearing, no distress, appears older than stated age, normal weight Derm: no unusual rashes/lesions, warm Head: atraumatic, normocephalic, symmetric Eyes: EOMI, no lid lag, anicteric sclera, pupils equal round reactive to light ENT: Nose and ears atraumatic Neck: No cervical lymphadenopathy, trachea midline, supple Mouth: no lip lesion, mucus membranes moist Cardiovascular: S1S2 reg, no murmur, positive dorsalis pedis pulse bilateral, no edema Lungs: CTA bilateral, no rhonchi, no rales, no accessory muscle use Abdominal: soft, nontender to palpation, no guarding Ext: muscle strength 5 out of 5 in all 4 extremities grossly, no gross muscle atrophy, no contractures, Neuro: CN II-XI grossly intact, no gross focal neuro deficits, no facial droop noted Psych: Following basic directions, not answering any questions, unable to fully assess Data Reviewed Today: Pertinent Labs: WBC 9.5, hemoglobin 8.2, ESR 113, pro-calcitonin 0.18, CRP 26.3 Imaging: No new imaging. Assessment and Plan: Active: Fever of unknown origin Type 2 diabetes -Cultures pending -Elevated inflammatory markers -Elevated pro-calcitonin -Continue azithromycin and ceftriaxone -On IV fluids and 3 mL normal saline Resolved: Chronic: Intellectual disability Hypertension Parkinson's Tremors Schizophrenia Seizure disorder Dyslipidemia DVT ppx: Lovenox Code status: Full code Anticipated discharge place: Pending clinical course Anticipated discharge time: And clinical course Objective - Vital Signs Vital signs: Vital Signs Temp 98.8 F 01/11/23 14:45 Pulse 96 01/11/23 14:45 Resp 18 01/11/23 14:45 BP 151/72 01/11/23 14:45 Pulse Ox 100 01/11/23 14:45 FiO2 Intake & Output 01/10/23 01/11/23 01/11/23 18:59 06:59 18:59 Other: Voiding Method Toilet Toilet Diaper Diaper # Voids 5 2 - Labs CBC & Chem 7: 01/11/23 06:17 01/11/23 06:17 Labs: Abnormal Lab Results - Last 24 Hours (Table) 01/10/23 01/10/23 01/11/23 Range/Units 13:07 19:54 06:17 RBC 2.89 L (4.30-5.90) m/uL Hgb 8.2 L (13.0-17.5) gm/dL Hct 26.2 L (39.0-53.0) % Neutrophils # 8.0 H (1.3-7.7) k/uL Lymphocytes # 0.6 L (1.0-4.8) k/uL ESR (0-15) mm/hr Sodium (137-145) mmol/L POC Glucose (mg/dL) 140 H (70-110) mg/dL Calcium (8.4-10.2) mg/dL Procalcitonin 0.18 H (0.02-0.09) ng/mL 01/11/23 01/11/23 Range/Units 06:17 08:31 RBC (4.30-5.90) m/uL Hgb (13.0-17.5) gm/dL Hct (39.0-53.0) % Neutrophils # (1.3-7.7) k/uL Lymphocytes # (1.0-4.8) k/uL ESR 113 H (0-15) mm/hr Sodium 136 L (137-145) mmol/L POC Glucose (mg/dL) (70-110) mg/dL Calcium 7.8 L (8.4-10.2) mg/dL Procalcitonin (0.02-0.09) ng/mL
[2023-01-11] MEDS ORDERED: TAMSULOSIN 0.4 MG CAP.ER.24H PO SCH (16:00)
[2023-01-11] MEDS ORDERED: ATORVASTATIN 40 MG TAB PO SCH (16:00)
[2023-01-11] MEDS: DIVALPROEX 500 MG TABLET.DR PO SCH ×2 (17:17→20:18)
[2023-01-11] MEDS: CARBIDOPA-LEVODOPA 10-100 MG 1 EACH TAB PO SCH ×2 (17:17→20:17)
[2023-01-11] MEDS: FERROUS SULFATE 325 MG TAB PO SCH ×2 (17:17→20:17)
[2023-01-11 17:27] LABS: Glucose,Whole Blood 117 mg/dL (70-110)
[2023-01-11] MEDS ORDERED: CYANOCOBALAMIN 500 MCG TAB PO SCH (20:00)
[2023-01-11] MEDS: DOCUSATE 100 MG CAP PO SCH (20:17)
[2023-01-11] MEDS: ARIPiprazole 10 MG TAB PO SCH (20:17)
[2023-01-11 20:52] LABS: Glucose,Whole Blood 122 mg/dL (70-110)
[2023-01-11] MEDS: AZITHROMYCIN 500 MG in SODIUM CHLORIDE 0.9% 250 ML IVPB SCH (21:19)
[2023-01-12] MEDS: SODIUM CHLORIDE 0.9% 1,000 ML IV SCH ×2 (02:17→12:37)
[2023-01-12 07:03] LABS: Glucose,Whole Blood 74 mg/dL (70-110)
[2023-01-12] MEDS: INSULIN ASPART (NovoLOG) 100 UNIT/ML VIAL SQ SCH ×2 (07:46→12:37)
[2023-01-12] MEDS ORDERED: ESCITALOPRAM 20 MG TAB PO SCH (08:00)
[2023-01-12] MEDS ORDERED: CHOLECALCIFEROL 25 MCG (1000 IU) TABLET PO SCH (08:00)
[2023-01-12] MEDS ORDERED: LORazepam 0.5 MG TAB PO SCH (08:00)
[2023-01-12] MEDS ORDERED: PRIMIDONE 50 MG TAB PO SCH (08:00)
[2023-01-12] MEDS ORDERED: MAGNESIUM OXIDE 400 MG TAB PO SCH (08:00)
[2023-01-12] MEDS ORDERED: PANTOPRAZOLE 40 MG TABLET PO SCH (08:00)
[2023-01-12] MEDS: CARBIDOPA-LEVODOPA 10-100 MG 1 EACH TAB PO SCH (08:54)
[2023-01-12] MEDS: DIVALPROEX 500 MG TABLET.DR PO SCH (08:54)
[2023-01-12] MEDS: FERROUS SULFATE 325 MG TAB PO SCH (08:54)
[2023-01-12] MEDS: ARIPiprazole 10 MG TAB PO SCH (08:54)
[2023-01-12] MEDS: DOCUSATE 100 MG CAP PO SCH (08:55)
[2023-01-12] MEDS ORDERED: ENOXAPARIN 40 MG/0.4 ML SYRINGE SQ SCH (09:00)
[2023-01-12 11:10] LABS: Glucose,Whole Blood 94 mg/dL (70-110)
[2023-01-12 11:37] VITALS: BP 153/79; PULSE 77; RESP 17; TEMP 98.6
--- NOTE | 2023-01-12 12:01 | P.DS ---
Providers Date of admission: 01/09/23 22:42 Expected date of discharge: 01/12/23 Attending physician: Thierry Jackson MD Primary care physician: Amanuel Tapia [facility] Course: Discharge Diagnosis: Fever of unknown origin Intellectual disability Hypertension Tremors Schizophrenia Seizure disorder Hospital Course: 48-year-old male with a PMH of autism spectrum disorder, intellectual disability, hypertension, and multiple recent hospitalizations who was sent to the hospital from his [facility] ([facility]) for confusion and strokelike symptoms. CT brain in the emergency room with unremarkable. Chest x- ray was also unremarkable. Furthermore EKG revealed sinus rhythm at [address]/T-wave changes noted as reviewed with him. Laboratory evaluation was remarkable for hemoglobin of 8.0 (similar to baseline), platelet count 238, sodium 138, potassium 3.2, calcium 7.6, magnesium 2.4, AST 71, albumin 2.2. Patient did have episode of fever in the emergency at 101.3. Patient admitted for fever of unknown origin. On further workup, his pro-calcitonin was mildly elevated, CRP was elevated and ESR was elevated. Blood cultures was negative growth to date. Patient has been afebrile over the last 2 days. Elevated fever could possibly be viral syndrome in nature. Given no active respiratory complaints, patient is not being discharged on any antibiotics. He will return back to [facility]. Patient seen and examined at bedside. Vital signs reviewed and stable. General: Chronically ill-appearing, no distress, appears older than stated age, normal weight Derm: no unusual rashes/lesions, warm Head: atraumatic, normocephalic, symmetric Eyes: EOMI, no lid lag, anicteric sclera, pupils equal round reactive to light ENT: Nose and ears atraumatic Neck: No cervical lymphadenopathy, trachea midline, supple Mouth: no lip lesion, mucus membranes moist Cardiovascular: S1S2 reg, no murmur, positive dorsalis pedis pulse bilateral, no edema Lungs: CTA bilateral, no rhonchi, no rales, no accessory muscle use Abdominal: soft, nontender to palpation, no guarding Ext: muscle strength 5 out of 5 in all 4 extremities grossly, no gross muscle atrophy, no contractures, Neuro: CN II-XI grossly intact, no gross focal neuro deficits, no facial droop noted Psych: Following basic directions, not answering any questions, unable to fully assess A total of 33 minutes of time were spent preparing this complex discharge summary. Patient was discharged on 01/12/23 at 12:00. Patient Condition at Discharge: Stable Plan - Discharge Summary New Discharge Prescriptions: Continue Carbidopa-Levodopa 10-100 mg [Sinemet 10-100 mg] 1 tab PO TID@0800,1599,1999 Pantoprazole [Protonix] 40 mg PO DAILY@0800 Divalproex Sodium [Depakote] 500 mg PO TID@0800,1599,1999 ARIPiprazole [Abilify] 10 mg PO BID@799,1999 Cyanocobalamin (Vitamin B-12) [Vitamin B-12] 1,000 mcg PO HS@1999 Ferrous Sulfate [Feosol] 325 mg PO TID@0800,1599,1999 Docusate [Colace] 100 mg PO BID@08,1999 Atorvastatin [Lipitor] 40 mg PO DAILY@1600 Primidone [Mysoline] 50 mg PO DAILY@0800 Tamsulosin [Flomax] 0.4 mg PO DAILY@1600 Potassium Chloride Oral Liquid 20 meq PO DAILY@0800 Magnesium Oxide [Mag-Ox] 400 mg PO DAILY@0800 Furosemide [Lasix] 20 mg PO DAILY@0800 LORazepam [Ativan] 0.5 mg PO DAILY@0800 Escitalopram [Lexapro] 20 mg PO DAILY@0800 Cholecalciferol [Vitamin D3 (25 Mcg = 1000 Iu)] 50 mcg PO DAILY@0800 Acetaminophen [Tylenol] 325 mg PO BID@08,1999 Discharge Medication List Carbidopa-Levodopa 10-100 mg [Sinemet 10-100 mg] 1 tab PO TID@0800,1599,199907/31/21 [History] Furosemide [Lasix] 20 mg PO DAILY@0803/27/22 [History] Magnesium Oxide [Mag-Ox] 400 mg PO DAILY@0803/27/22 [History] Pantoprazole [Protonix] 40 mg PO DAILY@79903/27/22 [History] Potassium Chloride Oral Liquid 20 meq PO DAILY@79903/27/22 [History] Primidone [Mysoline] 50 mg PO DAILY@0803/27/22 [History] Tamsulosin [Flomax] 0.4 mg PO DAILY@159903/27/22 [History] ARIPiprazole [Abilify] 10 mg PO BID@0800,199907/22/22 [History] Divalproex Sodium [Depakote] 500 mg PO TID@0800,1599,199907/22/22 [History] Escitalopram [Lexapro] 20 mg PO DAILY@0800 07/22/22 [History] LORazepam [Ativan] 0.5 mg PO DAILY@0800 07/22/22 [History] Cholecalciferol [Vitamin D3 (25 Mcg = 1000 Iu)] 50 mcg PO DAILY@0800 12/24/22 [History] Cyanocobalamin (Vitamin B-12) [Vitamin B-12] 1,000 mcg PO HS@199912/24/22 [History] Ferrous Sulfate [Feosol] 325 mg PO TID@0800,1599,199912/24/22 [History] Acetaminophen [Tylenol] 325 mg PO BID@0800,199901/09/23 [History] Atorvastatin [Lipitor] 40 mg PO DAILY@1600 01/09/23 [History] Docusate [Colace] 100 mg PO BID@0800,199901/09/23 [History] Follow up Appointment(s)/Referral(s): Amanuel Tapia MD [Primary Care Provider] - 1-2 days Patient Instructions/Handouts: Fever in Adults (GEN) Activity/Diet/Wound Care/Special Instructions: Please see your PCP. Discharge Disposition: OTHER INSTITUTION NOT DEFINED
--- NOTE | 2023-01-12 15:35 | CDI ---
Documentation Clarification Form Date: 01/12/2023 3:16:56 PM From: Nayely Bernabe RN CCDS Phone: [phone] Admit Date: 01/09/2023 10:42:00 PM Patient Name: Amanuel Monk Visit Number: [id number] Discharge Date: ATTENTION: The Clinical Documentation Specialists (CDI) and [facility] Coding Staff appreciate your assistance in clarifying documentation. Please respond to the clarification below the line at the bottom and electronically sign. The CDI & [facility] Coding staff will review the response and follow-up if needed. Please note: Queries are made part of the Legal Health Record. If you have any questions, please contact the author of this message via ITS. Dr. Shaka Howe Your patient has the documented symptom of Altered Mental Status 01/09, ED note. Additional clarification regarding the etiology/cause of this symptom is requested. History/Risk Factors: 52-year-old male presents to ED with Altered mental status and fever from his custodial. Medical history: DM2, HTN , Autism spectrum disorder, intellectual disability and HTN. 01/10, H&P Clinical Indicators: VVS: 01/09 B/P 149/72; HR 80; Temp 101.3F; RR 18; SpO2 98% ra Labs: 01/09 Wbc 8.4 Hgb 8.0; Lymphocytes 0.5 CT Brain: 01/09 No acute intracranial process Treatment: 01/09 0.9NS IV 1L bolus x 1; Tylenol IVPB x 1; Ampicillin IVPB x 1; Azithromycin IVPB x 1; Ceftriaxone IVPB x 1; 0.9NS IV 130cc/hr 01/10 Azithromycin IVPB x 3 bags Daily; Ceftriaxone IVPB Q12H. Please clarify the etiology of the symptom of Altered Mental Status: [ x ] Metabolic Encephalopathy due to Fever [ ] Other condition (please specify) [ ] Unable to determine (Template Last Revised: October 2020) SUNNID
== END 2023-01-12 15:55 | disposition home or self-care (01) ==
LOC: EC 19:48 → 5NMEDONC 22:42 → INTOOBSV 22:42 → 5NMEDONC 01-10 06:13 → UNDODISIN 01-12 15:55
PROVIDERS: ADMIT Internal Medicine; ATTEND Internal Medicine
DX: R50.9 Fever, unspecified (principal); R53.1 Weakness; G93.41 Metabolic encephalopathy; E11.9 Type 2 diabetes mellitus without complications; I10 Essential (primary) hypertension; F84.0 Autistic disorder; E78.5 Hyperlipidemia, unspecified; F20.9 Schizophrenia, unspecified; G40.909 Epilepsy, unspecified, not intractable, without status epilepticus; R25.1 Tremor, unspecified; Z86.73 Personal history of transient ischemic attack (TIA), and cerebral infarction without residual deficits; Z79.899 Other long term (current) drug therapy
CPT/HCPCS: 96366 ×4; 96367 ×3; 96372; 96361; 96365; 96375; 99285; 36415; 93005; 80053 ×2; 80048; 85652; 82140; 83605; 83690; 83735 ×2; 84100 ×2; 84484; 85025 ×3; 85610; 85730; 86140; 87040; 80306; 80320; 84145; 87636; 71045; 70450; G0378 ×4; J0456 ×2; J0696 ×4; J1650; J3480 ×2; J0295; J0131; J1741

== ENCOUNTER 2023-06-18 09:47 | Emergency (ER) | payer MEDICARE, OTHER ==
[2023-06-18 10:13] VITALS: TEMP 97.8
[2023-06-18] MEDS ORDERED: SODIUM CHLORIDE 0.9% 1,000 ML IV STA (10:33)
--- NOTE | 2023-06-18 10:38 | ED ---
General Adult HPI - General Chief complaint: Recheck/Abnormal Lab/Rx Stated complaint: Purple Nail beds,Cold to Touch Time Seen by Provider: 06/18/23 10:18 Source: Caregiver Mode of arrival: ambulatory Limitations: no limitations - History of Present Illness Initial comments: 52-year-old male past medical history significant for developmental delay alvaro nts from his [facility] with his caregiver with concerns for extremity problem. Per caregiver, person at [facility] noticed that the patient's nails appeared dirty and purple. States that thought this was due to ink stains and started to wash the patient's hands. While washing patient has noticed that his hands were cool and clammy. States after washing his hands his nailbeds still appeared pu rple. Caregiver reports that the patient's nails purple and hands were clammy lasting approximately 30 minutes. At this time this is resolved. Per caregiver, patient has been doing well over the last few days with no complaints. Patient has been acting his normal self. Patient did note to the [employer] today that he was having abdominal pain. Upon asking patient is unable to reply appropriately however patient does not normally respond to questions appropriately and this is baseline per caregiver. No other complaints. - Related Data Home Medications Medication Instructions Recorded Confirmed Carbidopa-Levodopa 10-100 mg 1 tab PO TID@0800,1599,199907/31/21 02/11/23 [Sinemet 10-100 mg] Furosemide [Lasix] 20 mg PO DAILY@79903/27/22 02/11/23 Magnesium Oxide [Mag-Ox] 400 mg PO DAILY@79903/27/22 02/11/23 Pantoprazole [Protonix] 40 mg PO DAILY@79903/27/22 02/11/23 Potassium Chloride Oral Liquid 20 meq PO DAILY@79903/27/22 02/11/23 Primidone [Mysoline] 50 mg PO DAILY@79903/27/22 02/11/23 Tamsulosin [Flomax] 0.4 mg PO DAILY@1600 03/27/22 02/11/23 ARIPiprazole [Abilify] 10 mg PO BID@0807/22/22 02/11/23 Divalproex Sodium [Depakote] 500 mg PO BID 07/22/22 02/11/23 Escitalopram [Lexapro] 20 mg PO DAILY@0800 07/22/22 02/11/23 LORazepam [Ativan] 0.5 mg PO DAILY@0800 07/22/22 02/11/23 Cholecalciferol [Vitamin D3 (25 50 mcg PO DAILY@0800 12/24/22 02/11/23 Mcg = 1000 Iu)] Cyanocobalamin (Vitamin B-12) 1,000 mcg PO HS@199912/24/22 02/11/23 [Vitamin B-12] Ferrous Sulfate [Feosol] 325 mg PO TID@0800,1600,199912/24/22 02/11/23 Acetaminophen [Tylenol] 325 mg PO BID@0800,199901/09/23 02/11/23 Atorvastatin [Lipitor] 40 mg PO DAILY@159901/09/23 02/11/23 Docusate [Colace] 100 mg PO BID@0800,199901/09/23 02/11/23 Allergies Allergy/AdvReac Type Severity Reaction Status Date / Time No Known Allergies Allergy Verified 06/18/23 09:57 Review of Systems ROS Statement: Those systems with pertinent positive or pertinent negative responses have been documented in the HPI. ROS Other: All systems not noted in ROS Statement are negative. Past Medical History Past Medical History: CVA/TIA, Diabetes Mellitus, Hypertension Additional Past Medical History / Comment(s): Pt recently admitted to [facility] on 02/20/20 with R intrinsic hand muscle weakness/possible L vertebral artery stenosis/thrombocytopenia. Ischemic Bowel, Vent dependent respiratory failure, Other hx: Diet controlled diabetes, autism, intellectual impairment, Iron infusion x2 secondary to Iron Deficient Anemia - 02/03/23 History of Any Multi-Drug Resistant Organisms: None Reported Past Surgical History: No Surgical Hx Reported Additional Past Surgical History / Comment(s): partial gastrectomy, Bowel ressection, JEANINE, abdominal abscess drainage due to ischemic bowel October 2021 Past Anesthesia/Blood Transfusion Reactions: Unable to Obtain Additional Past Anesthesia/Blood Transfusion Reaction / Comment(s): NEVER HAD ANY SX Past Psychological History: No Psychological Hx Reported Smoking Status: Never smoker Past Alcohol Use History: None Reported Past Drug Use History: None Reported - Past Family History Father Family Medical History: Cancer Additional Family Medical History / Comment(s): COLON CANCER Mother Family Medical History: Cancer, Diabetes Mellitus, Hypertension Additional Family Medical History / Comment(s): OBESITY, FROM METASTATIC KINDEY CANCER General Exam Limitations: no limitations General appearance: alert (Follows commands somewhat appropriately), in no apparent distress Eye exam: Present: normal appearance, PERRL, EOMI Neck exam: Present: normal inspection Respiratory exam: Present: normal lung sounds bilaterally Cardiovascular Exam: Present: bradycardia GI/Abdominal exam: Present: soft (Patient says "ow" upon palpating belly however no significant tenderness to palpation.), normal bowel sounds Extremities exam: Present: other (Strength and sensation equal and intact of bilateral upper extremities. Radial pulses 2+. Good capillary refill.) Neurological exam: Present: alert, oriented X3 Skin exam: Present: warm, dry Course Vital Signs 06/18/23 06/18/23 09:52 10:06 Temperature 97.8 F Pulse Rate 47 L 46 L Respiratory 18 16 Rate Blood Pressure 110/53 125/68 O2 Sat by Pulse 100 99 Oximetry Medical Decision Making - Medical Decision Making Was pt. sent in by a medical professional or institution (, PA, CLIP [employer]ER, urgent care, hospital, or senior living...) When possible be specific @ -snf Did you speak to anyone other than the patient for history (EMS, parent, family, police, friend...)? What history was obtained from this source @ -Entirety the of the history provided by the patient's caregiver. For further details please see HPI. Did you review nursing and triage notes (agree or disagree)? Why? @ -I reviewed and agree with nursing and triage notes Were old charts reviewed (outside hosp., previous admission, EMS record, old EKG, old radiological studies, urgent care reports/EKG's, senior living records)? Report findings @ -No old charts were reviewed Differential Diagnosis (chest pain, altered mental status, abdominal pain women, abdominal pain men, vaginal bleeding, weakness, fever, dyspnea, syncope, headache, dizziness, GI bleed, back pain, seizure, CVA, palpatations, mental health, musculoskeletal)? @ -Differential Abdominal Pain Men: Appendicitis, cholecystitis, diverticulosis, ischemic bowel, pancreatitis, hepatitis, UTI, gastroenteritis, AAA, incarcerated hernia, bowel obstruction, constipation, inflammatory bowel, hepatitis, peptic ulcer disease, splenic infarction, perforated viscus, testicular torsion, this is not meant to be an all-inclusive list EKG interpreted by me (3pts min.). @ -As above X-rays interpreted by me (1pt min.). @ -None done CT interpreted by me (1pt min.). @ -CT of the abdomen and pelvis interpreted by me showed no acute finding. U/S interpreted by me (1pt. min.). @ -None done What testing was considered but not performed or refused? (CT, X-rays, U/S, labs)? Why? @ -None What meds were considered but not given or refused? Why? @ -None Did you discuss the management of the patient with other professionals (professionals i.e. , PA, [employer] B[employer]ER, lab, RT, psych nurse, social sciences chair, cleaner carpet and upholstery, teacher, antisubmarine weapons officer, manager case)? Give summary @ -No Was smoking cessation discussed for >3mins.? @ -No Was critical care preformed (if so, how long)? @ -No Were there social determinants of health that impacted care today? How? (Homelessness, low income, unemployed, alcoholism, drug addiction, transportation, low edu. Level, literacy, decrease access to med. care, skilled nursing, rehab)? @ -No Was there de-escalation of care discussed even if they declined (Discuss DNR or withdrawal of care, Hospice)? DNR status @ -No What co-morbidities impacted this encounter? (DM, HTN, Smoking, COPD, CAD, Cancer, CVA, ARF, Chemo, Hep., AIDS, mental health diagnosis, sleep apnea, morbid obesity)? @ -Developmental delay Was patient admitted / discharged? Hospital course, mention meds given and route, prescriptions, significant lab abnormalities, going to OR and other pertinent info. @ -Discharge 52-year-old developmentally delayed male presenting to the ED after an episode where his hands turn: Clammy in his fingers turned purple. On exam, no cyanosis of the hands. Patient has good radial pulses with good capillary refill. Patient did note some abdominal pain to the nurse and patient did appear somewhat tender on examination. Therefore, CT abdomen and pelvis was obtained due to patient's poor communication skills. This showed no acute findings. Additionally, laboratory studies largely unremarkable. Only significant finding she was bradycardic during his stay in the ED however review of prior visits show consistent with history. Discharged home in stable condition. Discussed return precautions with patient's caregiver who verbalizes agreement. Undiagnosed new problem with uncertain prognosis? @ -No Drug Therapy requiring intensive monitoring for toxicity (Heparin, Nitro, Insulin, Cardizem)? @ -No Were any procedures done? @ -No Diagnosis/symptom? @ -Extremity problem. Acute, or Chronic, or Acute on Chronic? @ -Acute Uncomplicated (without systemic symptoms) or Complicated (systemic symptoms)? @ -Uncomplicated Side effects of treatment? @ -No Exacerbation, Progression, or Severe Exacerbation? @ -No Poses a threat to life or bodily function? How? (Chest pain, [place], [place], pneumonia, PE, COPD, DKA, ARF, appy, cholecystitis, CVA, Diverticulitis, Homicidal, Suicidal, threat to staff... and all critical care pts) @ -No - Lab Data Result diagrams: 06/18/23 10:33 06/18/23 10:33 Lab Results 06/18/23 06/18/23 06/18/23 Range/Units 10:33 10:33 10:33 WBC 5.0 (3.8-10.6) k/uL RBC 3.64 L (4.30-5.90) m/uL Hgb 12.1 L (13.0-17.5) gm/dL Hct 34.7 L (39.0-53.0) % MCV 95.5 (80.0-100.0) fL MCH 33.1 (25.0-35.0) pg MCHC 34.7 (31.0-37.0) g/dL RDW 13.2 (11.5-15.5) % Plt Count 110 L (150-450) k/uL MPV 8.1 Neutrophils % 68 % Lymphocytes % 23 % Monocytes % 7 % Eosinophils % 1 % Basophils % 0 % Neutrophils # 3.4 (1.3-7.7) k/uL Lymphocytes # 1.1 (1.0-4.8) k/uL Monocytes # 0.4 (0-1.0) k/uL Eosinophils # 0.0 (0-0.7) k/uL Basophils # 0.0 (0-0.2) k/uL PT 12.7 H (10.0-12.5) sec INR 1.2 H (<1.2) APTT 28.4 (22.0-30.0) sec Sodium 141 (137-145) mmol/L Potassium 3.8 (3.5-5.1) mmol/L Chloride 102 (98-107) mmol/L Carbon Dioxide 34 H (22-30) mmol/L Anion Gap 5 mmol/L BUN 19 (9-20) mg/dL Creatinine 0.80 (0.66-1.25) mg/dL Est GFR (CKD-EPI)AfAm >90 (>60 ml/min/1.73 sqM) Est GFR (CKD-EPI)NonAf >90 (>60 ml/min/1.73 sqM) Glucose 68 L (74-99) mg/dL Plasma Lactic Acid Milton (0.7-2.0) mmol/L Calcium 8.6 (8.4-10.2) mg/dL Total Bilirubin 0.5 (0.2-1.3) mg/dL AST 26 (17-59) U/L ALT 20 (4-49) U/L Alkaline Phosphatase 104 (38-126) U/L Troponin I (0.000-0.034) ng/mL Total Protein 6.1 L (6.3-8.2) g/dL Albumin 3.2 L (3.5-5.0) g/dL Amylase 90 (30-110) U/L Lipase 93 (23-300) U/L Urine Color Urine Appearance (Clear) Urine pH (5.0-8.0) Ur Specific Brutus (1.001-1.035) Urine Protein (Negative) Urine Glucose (UA) (Negative) Urine Ketones (Negative) Urine Blood (Negative) Urine Nitrite (Negative) Urine Bilirubin (Negative) Urine Urobilinogen (<2.0) mg/dL Ur Leukocyte Esterase (Negative) 06/18/23 06/18/23 06/18/23 Range/Units 10:33 10:33 10:43 WBC (3.8-10.6) k/uL RBC (4.30-5.90) m/uL Hgb (13.0-17.5) gm/dL Hct (39.0-53.0) % MCV (80.0-100.0) fL MCH (25.0-35.0) pg MCHC (31.0-37.0) g/dL RDW (11.5-15.5) % Plt Count (150-450) k/uL MPV Neutrophils % % Lymphocytes % % Monocytes % % Eosinophils % % Basophils % % Neutrophils # (1.3-7.7) k/uL Lymphocytes # (1.0-4.8) k/uL Monocytes # (0-1.0) k/uL Eosinophils # (0-0.7) k/uL Basophils # (0-0.2) k/uL PT (10.0-12.5) sec INR (<1.2) APTT (22.0-30.0) sec Sodium (137-145) mmol/L Potassium (3.5-5.1) mmol/L Chloride (98-107) mmol/L Carbon Dioxide (22-30) mmol/L Anion Gap mmol/L BUN (9-20) mg/dL Creatinine (0.66-1.25) mg/dL Est GFR (CKD-EPI)AfAm (>60 ml/min/1.73 sqM) Est GFR (CKD-EPI)NonAf (>60 ml/min/1.73 sqM) Glucose (74-99) mg/dL Plasma Lactic Acid Milton 1.3 (0.7-2.0) mmol/L Calcium (8.4-10.2) mg/dL Total Bilirubin (0.2-1.3) mg/dL AST (17-59) U/L ALT (4-49) U/L Alkaline Phosphatase (38-126) U/L Troponin I <0.012 (0.000-0.034) ng/mL Total Protein (6.3-8.2) g/dL Albumin (3.5-5.0) g/dL Amylase (30-110) U/L Lipase (23-300) U/L Urine Color Colorless Urine Appearance Clear (Clear) Urine pH 7.0 (5.0-8.0) Ur Specific Brutus 1.010 (1.001-1.035) Urine Protein Negative (Negative) Urine Glucose (UA) Negative (Negative) Urine Ketones Negative (Negative) Urine Blood Negative (Negative) Urine Nitrite Negative (Negative) Urine Bilirubin Negative (Negative) Urine Urobilinogen <2.0 (<2.0) mg/dL Ur Leukocyte Esterase Negative (Negative) - EKG Data EKG Comments: EKG shows a sinus bradycardia at 46 beats for minute. AK 168, QRS 90, QT/QTc 4- 70/429. No acute ST or T-wave changes. Disposition Clinical Impression: Problem of extremity Disposition: HOME SELF-CARE Condition: Good Additional Instructions: Please return to the Emergency Department if symptoms worsen or any other concerns. Is patient prescribed a controlled substance at d/c from ED?: No Referrals: Amanuel Tapia MD [Primary Care Provider] - 1-2 days Time of Disposition: 14:50
[2023-06-18 11:00] LABS: Basophils % (A) 0 %; Eosinophils % (A) 1 %; HCT 34.7 % (39.0-53.0); HGB 12.1 gm/dL (13.0-17.5); Lymphocytes # (A) 1.1 k/uL (1.0-4.8); Lymphocytes % (A) 23 %; MCH 33.1 pg (25.0-35.0); MCHC 34.7 g/dL (31.0-37.0); MCV 95.5 fL (80.0-100.0); Mean Platelet Volume 8.1; Monocytes # (A) 0.4 k/uL (0-1.0); Monocytes % (A) 7 %; Neutrophils # (A) 3.4 k/uL (1.3-7.7); Neutrophils % (A) 68 %; Platelet Count 110 k/uL (150-450); RBC 3.64 m/uL (4.30-5.90); RDW 13.2 % (11.5-15.5)
[2023-06-18 11:09] LABS: INR 1.2 (<1.2); Partial Thromboplastin Time 28.4 sec (22.0-30.0); Prothrombin Time 12.7 sec (10.0-12.5)
[2023-06-18 11:12] LABS: ALT 20 U/L (4-49); AST 26 U/L (17-59); African American GFR (CKD) >90 (>60 ml/min/1.73 sqM); Albumin 3.2 g/dL (3.5-5.0); Alkaline Phosphatase 104 U/L (38-126); Amylase 90 U/L (30-110); Anion Gap 5 mmol/L; Blood Urea Nitrogen 19 mg/dL (9-20); Calcium 8.6 mg/dL (8.4-10.2); Carbon Dioxide 34 mmol/L (22-30); Chloride 102 mmol/L (98-107); Glucose 68 mg/dL (74-99); Lipase 93 U/L (23-300); Non-African American GFR(CKD) >90 (>60 ml/min/1.73 sqM); Potassium 3.8 mmol/L (3.5-5.1); Sodium 141 mmol/L (137-145); Total Bilirubin 0.5 mg/dL (0.2-1.3); Total Protein 6.1 g/dL (6.3-8.2)
[2023-06-18 12:34] LABS: Appearance,Urine Clear (Clear); Bilirubin,Urine Negative (Negative); Blood,Urine Negative (Negative); Color,Urine Colorless; Glucose,Urine (UA) Negative (Negative); Ketones,Urine Negative (Negative); Leukocyte Esterase,Urine Negative (Negative); Nitrite,Urine Negative (Negative); Protein,Urine Negative (Negative); Urobilinogen,Urine <2.0 mg/dL (<2.0)
--- NOTE | 2023-06-18 14:55 | CT ---
EXAMINATION TYPE: CT abdomen pelvis wo con DATE OF EXAM: 06/18/2023 COMPARISON: 12/24/2022 HISTORY: Abdominal pain, care facility where he lives said his nails were purple, body cold to touch. CT DLP: 424.3 mGycm Examination of the solid and hollow viscera is limited given the lack of contrast. FINDINGS: LUNG BASES: No evidence for nodule. Small reticulonodular infiltrate right lower lobe. LIVER/GB: Large rim calcified gallstone within the gallbladder lumen. No space-occupying hepatic lesi on. PANCREAS: No pancreatic mass identified. No inflammatory process seen. SPLEEN: No evidence for splenomegaly. No intrasplenic lesions seen. ADRENALS: No adrenal nodules identified. No evidence for thickening. KIDNEYS: No evidence for renal mass. No nephrolithiasis. No hydronephrosis. BOWEL: Appendix has a normal appearance. No evidence of bowel obstruction. No inflammatory process. Lymph nodes: No evidence for adenopathy greater than 1 cm. Abdominal aorta: Atheromatous changes seen. No evidence for aneurysm. Genital organs: No significant abnormality. Other: No significant abnormality. IMPRESSION: 1. No acute intra-abdominal process seen. 2. Cholelithiasis as discussed.
[2023-06-18 15:13] VITALS: BP 131/70; PULSE 47; RESP 18
== END 2023-06-18 15:06 | disposition home or self-care (01) ==
LOC: EC 09:47
DX: L60.8 Other nail disorders (principal); R00.1 Bradycardia, unspecified; E11.9 Type 2 diabetes mellitus without complications; I10 Essential (primary) hypertension; Z86.73 Personal history of transient ischemic attack (TIA), and cerebral infarction without residual deficits; Z79.899 Other long term (current) drug therapy
CPT/HCPCS: 36415; 74176; 80053; 81003; 82150; 83605; 83690; 84484; 85025; 85610; 85730; 96360; 96361; 99284

== ENCOUNTER 2023-06-24 17:09 | Emergency (ER) | payer MEDICARE, OTHER ==
--- NOTE | 2023-06-24 17:41 | XR ---
EXAMINATION TYPE: XR chest 1V portable DATE OF EXAM: 06/24/2023 COMPARISON: Chest x-ray January 09, 2023 HISTORY: Choking. TECHNIQUE: Single frontal view of the chest is obtained. FINDINGS: There is no suspicious focal air space opacity, pleural effusion, or pneumothorax seen cur rently. The cardiac silhouette size remains within normal limits. Multilevel spurring in the thoraci c spine is redemonstrated. IMPRESSION: No acute cardiopulmonary process.
[2023-06-24 17:43] VITALS: BP 136/73; PULSE 48; RESP 17
--- NOTE | 2023-06-24 18:24 | ED ---
General Adult HPI - General Chief complaint: ENT Stated complaint: Choking Time Seen by Provider: 06/24/23 17:15 Source: EMS, Caregiver Mode of arrival: EMS - History of Present Illness Initial comments: 52-year-old male presents to the emergency department after he had a choking injury. Patient does present from his [facility]. It was reported that the patient was eating a chicken sandwich when he choked. He did require the Heimlich maneuver. Afterwards the patient became extremely anxious. He was running up and down the halls of the home. They could not get the patient to calm down and therefore they called EMS. EMS reports that the patient has not had any issues with respiratory distress. His oxygen saturations have been 100%. The patient has no complaints. He has been calm and collected throughout his transport. He admits to some chest wall pain where the Heimlich was performed. No other alleviating, precipitating mopping factors - Related Data Home Medications Medication Instructions Recorded Confirmed Carbidopa-Levodopa 10-100 mg 1 tab PO TID@0800,1599,199907/31/21 02/11/23 [Sinemet 10-100 mg] Furosemide [Lasix] 20 mg PO DAILY@79903/27/22 02/11/23 Magnesium Oxide [Mag-Ox] 400 mg PO DAILY@79903/27/22 02/11/23 Pantoprazole [Protonix] 40 mg PO DAILY@79903/27/22 02/11/23 Potassium Chloride Oral Liquid 20 meq PO DAILY@79903/27/22 02/11/23 Primidone [Mysoline] 50 mg PO DAILY@79903/27/22 02/11/23 Tamsulosin [Flomax] 0.4 mg PO DAILY@159903/27/22 02/11/23 ARIPiprazole [Abilify] 10 mg PO BID@07/22/22 02/11/23 Divalproex Sodium [Depakote] 500 mg PO BID 07/22/22 02/11/23 Escitalopram [Lexapro] 20 mg PO DAILY@79907/22/22 02/11/23 LORazepam [Ativan] 0.5 mg PO DAILY@79907/22/22 02/11/23 Cholecalciferol [Vitamin D3 (25 50 mcg PO DAILY@79912/24/2202/11/23 Mcg = 1000 Iu)] Cyanocobalamin (Vitamin B-12) 1,000 mcg PO HS@199912/24/22 02/11/23 [Vitamin B-12] Ferrous Sulfate [Feosol] 325 mg PO TID@0800,1600,199912/24/22 02/11/23 Acetaminophen [Tylenol] 325 mg PO BID@0800,199901/09/23 02/11/23 Atorvastatin [Lipitor] 40 mg PO DAILY@159901/09/23 02/11/23 Docusate [Colace] 100 mg PO BID@0800,199901/09/23 02/11/23 Allergies Allergy/AdvReac Type Severity Reaction Status Date / Time No Known Allergies Allergy Verified 06/24/23 17:20 Review of Systems ROS Statement: Those systems with pertinent positive or pertinent negative responses have been documented in the HPI. ROS Other: All systems not noted in ROS Statement are negative. Past Medical History Past Medical History: CVA/TIA, Diabetes Mellitus, Hypertension Additional Past Medical History / Comment(s): Pt recently admitted to [facility] on 02/20/20 with R intrinsic hand muscle weakness/possible L vertebral artery stenosis/thrombocytopenia. Ischemic Bowel, Vent dependent respiratory failure, Other hx: Diet controlled diabetes, autism, intellectual impairment, Iron infusion x2 secondary to Iron Deficient Anemia - 02/03/23 History of Any Multi-Drug Resistant Organisms: None Reported Past Surgical History: No Surgical Hx Reported Additional Past Surgical History / Comment(s): partial gastrectomy, Bowel ressection, JEANINE, abdominal abscess drainage due to ischemic bowel October 2021 Past Anesthesia/Blood Transfusion Reactions: Unable to Obtain Additional Past Anesthesia/Blood Transfusion Reaction / Comment(s): NEVER HAD ANY SX Past Psychological History: No Psychological Hx Reported Smoking Status: Never smoker Past Alcohol Use History: None Reported Past Drug Use History: None Reported - Past Family History Father Family Medical History: Cancer Additional Family Medical History / Comment(s): COLON CANCER Mother Family Medical History: Cancer, Diabetes Mellitus, Hypertension Additional Family Medical History / Comment(s): OBESITY, FROM METASTATIC KINDEY CANCER General Exam Limitations: language barrier General appearance: alert, in no apparent distress Head exam: Present: atraumatic, normocephalic, normal inspection Eye exam: Present: normal appearance, PERRL, EOMI. Absent: scleral icterus, conjunctival injection, periorbital swelling ENT exam: Present: normal exam, mucous membranes moist Neck exam: Present: normal inspection. Absent: tenderness, meningismus, lymphadenopathy Respiratory exam: Present: normal lung sounds bilaterally. Absent: respiratory distress, wheezes, rales, rhonchi, stridor Cardiovascular Exam: Present: regular rate, normal rhythm, normal heart sounds. Absent: systolic murmur, diastolic murmur, rubs, gallop, clicks GI/Abdominal exam: Present: soft, normal bowel sounds. Absent: distended, tenderness, guarding, rebound, rigid Extremities exam: Present: normal inspection, full ROM, normal capillary refill. Absent: tenderness, pedal edema, joint swelling, calf tenderness Back exam: Present: normal inspection Neurological exam: Present: alert, CN II-XII intact Psychiatric exam: Present: normal affect, normal mood Skin exam: Present: warm, dry, intact, normal color. Absent: rash Course Vital Signs 06/24/23 06/24/23 17:13 18:25 Temperature 98.1 F Pulse Rate 48 L 48 L Respiratory 17 17 Rate Blood Pressure 136/73 136/73 O2 Sat by Pulse 100 99 Oximetry Medical Decision Making - Medical Decision Making Was pt. sent in by a medical professional or institution ([facility], BIST[employer]ER, urgent care, hospital, or penitentiary...) When possible be specific @ -Patient sent in by his [facility] Did you speak to anyone other than the patient for history (EMS, parent, family, police, friend...)? What history was obtained from this source @ -Spoke with EMS and caseworker protective services Did you review nursing and triage notes (agree or disagree)? Why? @ -I reviewed and agree with nursing and triage notes Were old charts reviewed (outside hosp., previous admission, EMS record, old EK G, old radiological studies, urgent care reports/EKG's, penitentiary records)? Report findings @ -No old charts were reviewed Differential Diagnosis (chest pain, altered mental status, abdominal pain women, abdominal pain men, vaginal bleeding, weakness, fever, dyspnea, syncope, headache, dizziness, GI bleed, back pain, seizure, CVA, palpatations, mental health, musculoskeletal)? @ -Differential Dyspnea: Coronary syndrome, arrhythmia, tamponade, asthma, COPD, pulmonary embolism, pneumonia, pneumothorax, pulmonary effusion, anaphylaxis, diabetic ketoacidosis, flailed chest, pulmonary contusion, diaphragmatic rupture, anemia, neuromuscular, this is not meant to be an all-inclusive list. EKG interpreted by me (3pts min.). @ -Yes and demonstrates junctional bradycardia with a rate of 47. AK interval 76. QRS 94. QTC of 434. No acute ST segment elevations or depressions X-rays interpreted by me (1pt min.). @ -Yes and demonstrates no acute process to include aspiration or rib fractures CT interpreted by me (1pt min.). @ -None done U/S interpreted by me (1pt. min.). @ -None done What testing was considered but not performed or refused? (CT, X-rays, U/S, l abs)? Why? @ -None What meds were considered but not given or refused? Why? @ -None Did you discuss the management of the patient with other professionals (professionals i.e. , PA, BISTRO SERVER, lab, RT, psych nurse, social science instructor, brood hatchery manager, teacher, radio electronics officer, field nurse case manager)? Give summary @ -No Was smoking cessation discussed for >3mins.? @ -No Was critical care preformed (if so, how long)? @ -No Were there social determinants of health that impacted care today? How? (Homelessness, low income, unemployed, alcoholism, drug addiction, transportation, low edu. Level, literacy, decrease access to med. care, long term, rehab)? @ -Patient resides at a chcf Was there de-escalation of care discussed even if they declined (Discuss DNR or withdrawal of care, Hospice)? DNR status @ -No What co-morbidities impacted this encounter? (DM, HTN, Smoking, COPD, CAD, Cancer, CVA, ARF, Chemo, Hep., AIDS, mental health diagnosis, sleep apnea, m orbid obesity)? @ -Autism Was patient admitted / discharged? Hospital course, mention meds given and route, prescriptions, significant lab abnormalities, going to OR and other pertinent info. @ -Upon arrival patient was placed into room 6. Thorough history and physical exam was performed. Patient demonstrates no signs of respiratory distress. EKG and chest x-ray was obtained. He maintained 100% oxygen saturations. Patient is much more calm at this time. He is ready to go home. Results are discussed with the caseworker protective services. They are instructed to observe him closely for any delayed respiratory distress. Return for any new or worsening symptoms. There were agreeable to this plan and the patient was discharged in stable condition Undiagnosed new problem with uncertain prognosis? @ -No Drug Therapy requiring intensive monitoring for toxicity (Heparin, Nitro, Insuli n, Cardizem)? @ -No Were any procedures done? @ -No Diagnosis/symptom? @ -Acute choking episode Acute, or Chronic, or Acute on Chronic? @ -Acute Uncomplicated (without systemic symptoms) or Complicated (systemic symptoms)? @ -Complicated Side effects of treatment? @ -No Exacerbation, Progression, or Severe Exacerbation? @ -No Poses a threat to life or bodily function? How? (Chest pain, USA, MD, pneumonia, PE, COPD, DKA, ARF, appy, cholecystitis, CVA, Diverticulitis, Homicidal, Suicidal, threat to staff... and all critical care pts) @ -Yes patient acutely choked however feels better at this time Disposition Clinical Impression: Choking episode Disposition: HOME SELF-CARE Condition: Stable Instructions (If sedation given, give patient instructions): Performing the Heimlich Maneuver (ED) Additional Instructions: Your vitals and chest x-ray are good. Please follow up with your doctor and return for any new or worsening symptoms. Is patient prescribed a controlled substance at d/c from ED?: No Referrals: Amanuel Tapia MD [Primary Care Provider] - 1-2 days Time of Disposition: 18:24
[2023-06-24 18:37] VITALS: TEMP 98.1
== END 2023-06-24 18:29 | disposition home or self-care (01) ==
LOC: EC 17:09
DX: T17.928A Food in respiratory tract, part unspecified causing other injury, initial encounter (principal); R00.1 Bradycardia, unspecified; E11.9 Type 2 diabetes mellitus without complications; I10 Essential (primary) hypertension; Z79.899 Other long term (current) drug therapy
CPT/HCPCS: 71045; 93005; 99284